=== PATIENT | female | born 1935 | race Hispanic/Latino ===

== ENCOUNTER 2019-03-05 00:11 | Emergency (ER) | payer MEDICARE ==
[2019-03-05] MEDS ORDERED: SODIUM CHLORIDE 0.9% 1000 ML IV SOLN IV ONE (00:12)
[2019-03-05] MEDS ORDERED: CEFEPIME/NS 2 GM/100 ML 2 GM/100 ML BAG IV ONE (00:15)
--- NOTE | 2019-03-05 00:20 | Emergency Department Report ---
ED General Adult HPI - General Stated complaint: UTI Time Seen by Provider: 03/05/19 00:12 Source: patient, EMS Mode of arrival: Stretcher Limitations: No Limitations - History of Present Illness Initial comments: Patient is an 83-year-old female that presents with complaint of weakness, fever. Patient brought in by EMS. Patient states she had a fever of 104 for 3 days. Patient states nothing is bring her fever down. Patient denies cough. Patient denies blurred vision. Patient denies headache. Patient denies chest pain or shortness of breath. Patient states her only symptom is dysuria. She states her urine is cloudy and it sullivan when she urinates. Patient states the dysuria is better with rest and worse with urination. Location: genitals Radiation: non-radiation Quality: burning Consistency: intermittent Improves with: rest Worsens with: other Associated Symptoms: fever/chills, weakness. denies: confusion, chest pain, cough, diaphoresis, headaches, loss of appetite, nausea/vomiting, rash, seizure, shortness of breath, syncope - Related Data Home Medications Medication Instructions Recorded Confirmed Last Taken Baclofen [Lioresal] 10 mg PO TID PRN 05/26/13 10/17/14 10/16/14 Diazepam [Valium] 10 mg PO BID 05/26/13 10/17/14 10/16/14 PARoxetine [Paxil] 10 mg PO DAILY 05/26/13 10/17/14 10/16/14 19:00 Quetiapine Fumarate [SEROquel XR] 200 mg PO DAILY 05/26/13 10/17/14 10/16/14 rOPINIRole [Requip] 1 mg PO QHS 05/26/13 10/17/14 10/16/14 19:00 QUEtiapine [SEROquel] 200 mg PO QHS 05/28/13 10/17/14 10/16/14 19:00 Hydromorphone HCl [Dilaudid] 4 mg PO 10/17/14 10/17/14 10/16/14 Oxycodone HCl/Acetaminophen 1 each PO Q6HR PRN 10/17/14 10/17/14 10/16/14 [Percocet 10-325 mg] Previous Rx's Medication Instructions Recorded Last Taken Type Acetaminophen [Tylenol] 325 mg PO DAILY #10 tablet 05/26/13 10/16/14 Rx Famotidine [Pepcid] 10 mg PO BID #60 tablet 06/02/13 10/16/14 Rx levoFLOXacin [Levaquin] 750 mg PO QDAY #7 tablet 06/02/13 10/16/14 Rx metroNIDAZOLE [Flagyl] 500 mg PO Q8HR #30 tablet 06/02/13 10/16/14 Rx Oxycodone HCl/Acetaminophen 1 each PO Q6HR PRN #30 tablet 10/18/14 Unknown Rx [Percocet 10-325 mg] Allergies Allergy/AdvReac Type Severity Reaction Status Date / Time morphine AdvReac Nausea Verified 05/26/13 19:22 ED Review of Systems ROS: Stated complaint: UTI Other details as noted in HPI Constitutional: chills, fever, weakness Eyes: denies: eye pain, eye discharge, vision change ENT: denies: ear pain, throat pain Respiratory: denies: cough, shortness of breath, wheezing Cardiovascular: denies: chest pain, palpitations Endocrine: no symptoms reported Gastrointestinal: denies: abdominal pain, nausea, diarrhea Genitourinary: dysuria. denies: urgency, discharge Musculoskeletal: denies: back pain, joint swelling, arthralgia Skin: denies: rash, lesions Neurological: weakness. denies: headache, paresthesias Psychiatric: denies: anxiety, depression Hematological/Lymphatic: denies: easy bleeding, easy bruising ED Past Medical Hx - Past Medical History Previous Medical History?: Yes Hx Hypertension: No Hx Liver Disease: No Hx Renal Disease: No Hx Psychiatric Treatment: Yes (depression) Hx Asthma: No Additional medical history: chronic back pain - Surgical History Past Surgical History?: Yes Hx Cholecystectomy: Yes Additional Surgical History: back surgery. hemorroids. tonsilectomy. bladder - Family History Family history: no significant - Social History Smoking Status: Never Smoker Substance Use Type: None - Medications Home Medications: Home Medications Medication Instructions Recorded Confirmed Last Taken Type Acetaminophen [Tylenol] 325 mg PO DAILY #10 tablet 05/26/13 10/17/14 10/16/14 Rx Baclofen [Lioresal] 10 mg PO TID PRN 05/26/13 10/17/14 10/16/14 History Diazepam [Valium] 10 mg PO BID 05/26/13 10/17/14 10/16/14 History PARoxetine [Paxil] 10 mg PO DAILY 05/26/13 10/17/14 10/16/14 19:00 History Quetiapine Fumarate [SEROquel XR] 200 mg PO DAILY 05/26/13 10/17/14 10/16/14 History rOPINIRole [Requip] 1 mg PO QHS 05/26/13 10/17/14 10/16/14 19:00 History QUEtiapine [SEROquel] 200 mg PO QHS 05/28/13 10/17/14 10/16/14 19:00 History Famotidine [Pepcid] 10 mg PO BID #60 tablet 06/02/13 10/17/14 10/16/14 Rx levoFLOXacin [Levaquin] 750 mg PO QDAY #7 tablet 06/02/13 10/17/14 10/16/14 Rx metroNIDAZOLE [Flagyl] 500 mg PO Q8HR #30 tablet 06/02/13 10/17/14 10/16/14 Rx Hydromorphone HCl [Dilaudid] 4 mg PO 10/17/14 10/17/14 10/16/14 History Oxycodone HCl/Acetaminophen 1 each PO Q6HR PRN 10/17/14 10/17/14 10/16/14 History [Percocet 10-325 mg] Oxycodone HCl/Acetaminophen 1 each PO Q6HR PRN #30 tablet 10/18/14 Unknown Rx [Percocet 10-325 mg] ED Physical Exam - General Limitations: No Limitations General appearance: alert, in no apparent distress - Head Head exam: Present: atraumatic, normocephalic - Eye Eye exam: Present: normal appearance - ENT ENT exam: Present: mucous membranes dry - Neck Neck exam: Present: normal inspection, full ROM. Absent: tenderness, meningismus, lymphadenopathy, thyromegaly - Respiratory Respiratory exam: Present: normal lung sounds bilaterally. Absent: respiratory distress, wheezes, rales - Cardiovascular Cardiovascular Exam: Present: regular rate, normal rhythm. Absent: systolic murmur, diastolic murmur, rubs, gallop - GI/Abdominal GI/Abdominal exam: Present: soft, normal bowel sounds. Absent: distended, tenderness, guarding - Rectal Rectal exam: Present: deferred - Extremities Exam Extremities exam: Present: normal inspection - Back Exam Back exam: Present: normal inspection - Neurological Exam Neurological exam: Present: alert, oriented X3 - Psychiatric Psychiatric exam: Present: normal affect, normal mood - Skin Skin exam: Present: warm, dry, intact, normal color. Absent: rash ED Course Vital Signs 03/05/19 03/05/19 03/05/19 00:16 00:22 00:30 Temperature 102.4 F H Pulse Rate 112 H 107 H Respiratory 22 21 Rate Blood Pressure 134/61 127/51 O2 Sat by Pulse 92 90 Oximetry 03/05/19 03/05/19 03/05/19 00:45 01:00 01:15 Temperature Pulse Rate 100 H 91 H 89 Respiratory 20 15 19 Rate Blood Pressure 132/51 123/55 132/48 O2 Sat by Pulse 94 96 97 Oximetry 03/05/19 03/05/19 03/05/19 01:20 01:30 01:45 Temperature Pulse Rate 87 89 Respiratory 18 18 19 Rate Blood Pressure 132/49 129/52 O2 Sat by Pulse 94 96 97 Oximetry 03/05/19 03/05/19 03/05/19 02:00 02:21 02:30 Temperature Pulse Rate 90 85 82 Respiratory 14 31 H 13 Rate Blood Pressure 118/57 118/57 108/45 O2 Sat by Pulse 95 94 96 Oximetry 03/05/19 03/05/19 03/05/19 03:00 03:15 03:30 Temperature Pulse Rate 79 80 75 Respiratory 16 14 17 Rate Blood Pressure 90/42 103/45 104/42 O2 Sat by Pulse 91 97 93 Oximetry 03/05/19 03:45 Temperature Pulse Rate 78 Respiratory 24 Rate Blood Pressure 104/43 O2 Sat by Pulse 97 Oximetry - Reevaluation(s) Reevaluation #1: Initial evaluation done. Code sepsis initiated. Patient will be given fluids and antibiotics immediately. 03/05/19 00:15 Reevaluation #2: Patient's heart rate has improved with treatment. Patient states she is feeling a little better. Patient's CT is pending. 03/05/19 01:20 Reevaluation #3: Patient has been accepted to [facility]. I discussed all results with patient. Discussed plan of care with patient. Patient agrees with plan of care and mahesh gill. 03/05/19 03:34 - Consultations Consultation #1: I discussed case with hospitalist. Hospitalist is to have the patient transfer since we do not have urology. 03/05/19 03:10 Consultation #2: I discussed case with [facility]. 03/05/19 03:19 Patient has been accepted to [facility] by Dr. Barajas, urology. 03/05/19 03:30 ED Medical Decision Making - Lab Data Result diagrams: 03/05/19 00:40 03/05/19 00:40 - EKG Data -: EKG Interpreted by Me EKG shows normal: sinus rhythm, axis, intervals, QRS complexes, ST-T waves Rate: tachycardia - Radiology Data Radiology results: report reviewed, image reviewed interpreted by me: No acute findings on chest x-ray. CT ABDOMEN AND PELVIS WITH AND WITHOUT IV CONTRAST INDICATION: Fever. Dysuria. TECHNIQUE: Multiple axial CT images of the abdomen and pelvis were acquired with and without intravenous contrast. Sagittal and coronal reformats were obtained. All CT performed at this facility utilize dose reduction techniques including automated exposure control, iterative reconstruction and weight based dosing when appropriate to reduce patient ra diation dose to as low as reasonably achievable. COMPARISON: No prior studies are available for comparison. FINDINGS: Limited imaging of the bilateral lung bases demonstrates no acute abnormality. Abdomen: The gallbladder has been removed. The liver, spleen, pancreas, bilateral adrenal glands and and right kidney show no evidence of acute abnormality. There is mild left- sided hydronephrosis and hydroureter with mild perinephric stranding. There is a single 8 mm stone within the left renal pelvis. It is unclear if this is causing significant obstruction. There is no evidence of bowel obstruction or free air. Pelvis: There is a 5 mm simple left adnexal cyst. There is a 7 mm obstructing stone within the distal left ureter. The urinary bladder is decompressed around a Lind catheter. No free pelvic fluid is visualized. Bones and Soft Tissues: Evaluation of bony structures demonstrates diffuse degenerative, postsurgical and osteopenic changes of the lumbar spine. There are several mild compression deformities involving the L1, L2 and L3 vertebral bodies. Evaluation of soft tissue structures shows no acute soft tissue abnormality. IMPRESSION: 1. Obstructing 7 mm stone in the distal left ureter causing mild left-sided hydronephrosis and perinephric stranding. 2. There is a single 8 mm stone in the left renal pelvis. It is difficult to determine if this is causing any degree of obstruction or may be an incidental finding. 3. Simple 5 cm left adnexal cyst. - Medical Decision Making Patient is an 83-year-old female presents emergency room complaints of weakness and fever. Patient had a fever of 104 for 3 days. Patient brought in by EMS. Patient had labs done. Patient's labs remarkable for elevated WBC, UTI. Due to the patient's complaints patient had a CT scan done of the abdomen and pelvis and it shows a 7 mm obstructing stone with hydronephrosis and findings consistent with pyelonephritis. Patient will require a urology consult and we do not have urology on-call available at this facility. Patient will be transferred to [facility]. Patient has been accepted by the urologist and [facility]. Patient responded well to therapy. His heart rate improved with fluids. Patient's lactic acid improved. Patient initially found to have a lactic a cidosis and improve with fluid therapy. - Differential Diagnosis fever. sirs. sepsis. uti. pyelo Critical Care Time: Yes Critical care time in (mins) excluding proc time.: 80 Critical care attestation.: If time is entered above; I have spent that time in minutes in the direct care of this critically ill patient, excluding procedure time. Critical Care Time: 80 minutes ED Disposition Clinical Impression: Dysuria, Hypoxia, SIRS (systemic inflammatory response syndrome), Hyponatremia, Metabolic acidosis, Pyelonephritis, Kidney stone, Lactic acid acidosis Fever Qualifiers: Fever type: unspecified Qualified Code(s): R50.9 - Fever, unspecified UTI (urinary tract infection) Qualifiers: Urinary tract infection type: acute cystitis Hematuria presence: with hematuria Qualified Code(s): N30.01 - Acute cystitis with hematuria Disposition: DC/TX-70 ANOTHER TYPE HLTHCARE Is pt being admited?: No Does the pt Need Aspirin: No Condition: Critical Time of Disposition: 03:34
[2019-03-05 01:20] LABS: Basophils % (Auto) 0.2 % (0.0-1.8); Eosinophils % (Auto) 0.1 % (0.0-4.3); Hematocrit 38.8 % (30.3-42.9); Hemoglobin 12.8 gm/dl (10.1-14.3); Lymphocytes # (Auto) 1.1 K/mm3 (1.2-5.4); Lymphocytes % (Auto) 8.6 % (13.4-35.0); Mean Corpuscular HGB Conc 33 % (30-34); Mean Corpuscular Volume 82 fl (79-97); Monocytes # (Auto) 0.9 K/mm3 (0.0-0.8); Monocytes % (Auto) 7.4 % (0.0-7.3); Platelet Count 225 K/mm3 (140-440); Red Blood Count 4.76 M/mm3 (3.65-5.03); Red Cell Distribution Width 16.3 % (13.2-15.2)
[2019-03-05 01:34] LABS: Bacteria,Urine 3+ /HPF (Negative); Bilirubin,Urine NEG (Negative); Blood,Urine SM (Negative); Color,Urine Amber (Yellow); Mucus,Urine FEW /HPF; Urobilinogen,Urine < 2.0 mg/dL (<2.0)
[2019-03-05 01:35] LABS: WBC,Urine > 182.0 /HPF (0.0-6.0)
--- NOTE | 2019-03-05 01:35 | XRay Report ---
CHEST 1 VIEW, 03/05/2019 1:05 AM CLINICAL INFORMATION/INDICATION: Sepsis COMPARISON: Chest radiograph, 06/01/2013 FINDINGS: SUPPORT DEVICES: None. HEART: The cardiac silhouette is normal in size. LUNGS/PLEURA: There is no focal airspace disease or significant pleural effusion. ADDITIONAL FINDINGS: No additional acute findings. IMPRESSION: 1. No evidence of acute cardiopulmonary process. Signer Name: Rosita Freitas MD Signed: 03/05/2019 1:30 AM Workstation Name: [email or web address]
[2019-03-05 01:53] LABS: Calcium 9.5 mg/dL (8.4-10.2)
[2019-03-05 01:54] LABS: Albumin 3.2 g/dL (3.9-5)
--- NOTE | 2019-03-05 03:05 | Cat Scan Report ---
CT ABDOMEN AND PELVIS WITH AND WITHOUT IV CONTRAST INDICATION: Fever. Dysuria. TECHNIQUE: Multiple axial CT images of the abdomen and pelvis were acquired with and without intraven ous contrast. Sagittal and coronal reformats were obtained. All CT performed at this facility utiliz e dose reduction techniques including automated exposure control, iterative reconstruction and weight based dosing when appropriate to reduce patient radiation dose to as low as reasonably achievable. COMPARISON: No prior studies are available for comparison. FINDINGS: Limited imaging of the bilateral lung bases demonstrates no acute abnormality. Abdomen: The gallbladder has been removed. The liver, spleen, pancreas, bilateral adrenal glands and and right kidney show no evidence of acute abnormality. There is mild left-sided hydronephrosis and h ydroureter with mild perinephric stranding. There is a single 8 mm stone within the left renal pelvis . It is unclear if this is causing significant obstruction. There is no evidence of bowel obstruction or free air. Pelvis: There is a 5 mm simple left adnexal cyst. There is a 7 mm obstructing stone within the distal left ureter. The urinary bladder is decompressed around a Lind catheter. No free pelvic fluid is vi sualized. Bones and Soft Tissues: Evaluation of bony structures demonstrates diffuse degenerative, postsurgical and osteopenic changes of the lumbar spine. There are several mild compression deformities involving the L1, L2 and L3 vertebral bodies. Evaluation of soft tissue structures shows no acute soft tissue abnormality. IMPRESSION: 1. Obstructing 7 mm stone in the distal left ureter causing mild left-sided hydronephrosis and perine phric stranding. 2. There is a single 8 mm stone in the left renal pelvis. It is difficult to determine if this is cau sing any degree of obstruction or may be an incidental finding. 3. Simple 5 cm left adnexal cyst. Signer Name: Rosita Freitas MD Signed: 03/05/2019 3:00 AM Workstation Name: [id number]
[2019-03-05 04:04] VITALS: BP 104/43
[2019-03-05] MEDS ORDERED: oxyCODONE /ACETAMINOPHEN 5-325MG TAB PO ONE (05:16)
== END 2019-03-05 07:59 | disposition other institution (70) ==
LOC: ED 00:11
DX: N39.0 Urinary tract infection, site not specified (principal); R65.10 Systemic inflammatory response syndrome (SIRS) of non-infectious origin without acute organ dysfunction; N20.0 Calculus of kidney; E87.2 Acidosis; N12 Tubulo-interstitial nephritis, not specified as acute or chronic; E87.1 Hypo-osmolality and hyponatremia; R09.02 Hypoxemia; F32.9 Major depressive disorder, single episode, unspecified; Z90.89 Acquired absence of other organs; Z79.899 Other long term (current) drug therapy; Z88.6 Allergy status to analgesic agent
CPT/HCPCS: 36415; 71045; 74178; 80053; 81001; 82140; 85025; 87040; 87076; 87186; 93005; 93010; 96365; 96375; 99291; 99292; J0692; J7030; Q9967; 51702

== ENCOUNTER 2020-11-11 12:52 | Inpatient (IN) | payer MEDICARE ==
[2020-11-11] MEDS ORDERED: SODIUM CHLORIDE 0.9% 1000 ML 1,000 ML IV ONE (13:26)
--- NOTE | 2020-11-11 13:34 | Emergency Department Report ---
<ARNEL RAVI - Last Filed: 11/11/20 17:47> ED Abdominal Pain HPI - General Chief Complaint: Altered Mental Status Stated Complaint: VOMITING PUI?: Yes Time Seen by Provider: 11/11/20 13:10 - Related Data Home Medications Medication Instructions Recorded Confirmed Last Taken Baclofen [Lioresal] 10 mg PO TID PRN 05/26/13 10/17/14 10/16/14 Diazepam [Valium] 10 mg PO BID 05/26/13 10/17/14 10/16/14 PARoxetine [Paxil] 10 mg PO DAILY 05/26/13 10/17/14 10/16/14 19:00 Quetiapine Fumarate [SEROquel XR] 200 mg PO DAILY 05/26/13 10/17/14 10/16/14 rOPINIRole [Requip] 1 mg PO QHS 05/26/13 10/17/14 10/16/14 19:00 QUEtiapine [SEROquel] 200 mg PO QHS 05/28/13 10/17/14 10/16/14 19:00 Hydromorphone HCl [Dilaudid] 4 mg PO 10/17/14 10/17/14 10/16/14 Oxycodone HCl/Acetaminophen 1 each PO Q6HR PRN 10/17/14 10/17/14 10/16/14 [Percocet 10-325 mg] Previous Rx's Medication Instructions Recorded Last Taken Type Acetaminophen [Tylenol] 325 mg PO DAILY #10 tablet 05/26/13 10/16/14 Rx Famotidine [Pepcid] 10 mg PO BID #60 tablet 06/02/13 10/16/14 Rx levoFLOXacin [Levaquin] 750 mg PO QDAY #7 tablet 06/02/13 10/16/14 Rx metroNIDAZOLE [Flagyl] 500 mg PO Q8HR #30 tablet 06/02/13 10/16/14 Rx Oxycodone HCl/Acetaminophen 1 each PO Q6HR PRN #30 tablet 10/18/14 Unknown Rx [Percocet 10-325 mg] Allergies Allergy/AdvReac Type Severity Reaction Status Date / Time morphine AdvReac Nausea Verified 05/26/13 19:22 ED Past Medical Hx - Medications Home Medications: Home Medications Medication Instructions Recorded Confirmed Last Taken Type Acetaminophen [Tylenol] 325 mg PO DAILY #10 tablet 05/26/13 10/17/14 10/16/14 Rx Baclofen [Lioresal] 10 mg PO TID PRN 05/26/13 10/17/14 10/16/14 History Diazepam [Valium] 10 mg PO BID 05/26/13 10/17/14 10/16/14 History PARoxetine [Paxil] 10 mg PO DAILY 05/26/13 10/17/14 10/16/14 19:00 History Quetiapine Fumarate [SEROquel XR] 200 mg PO DAILY 05/26/13 10/17/14 10/16/14 History rOPINIRole [Requip] 1 mg PO QHS 05/26/13 10/17/14 10/16/14 19:00 History QUEtiapine [SEROquel] 200 mg PO QHS 05/28/13 10/17/14 10/16/14 19:00 History Famotidine [Pepcid] 10 mg PO BID #60 tablet 06/02/13 10/17/14 10/16/14 Rx levoFLOXacin [Levaquin] 750 mg PO QDAY #7 tablet 06/02/13 10/17/14 10/16/14 Rx metroNIDAZOLE [Flagyl] 500 mg PO Q8HR #30 tablet 06/02/13 10/17/14 10/16/14 Rx Hydromorphone HCl [Dilaudid] 4 mg PO 10/17/14 10/17/14 10/16/14 History Oxycodone HCl/Acetaminophen 1 each PO Q6HR PRN 10/17/14 10/17/14 10/16/14 History [Percocet 10-325 mg] Oxycodone HCl/Acetaminophen 1 each PO Q6HR PRN #30 tablet 10/18/14 Unknown Rx [Percocet 10-325 mg] ED Course - Reevaluation(s) Reevaluation #1: 11/11/20 16:46 CT scan of the abdomen pelvis is reviewed and appreciated. It is compared to the CT scan from 2019. No acute findings noted. X-ray of the chest is unremarkable. Given nonspecific GI symptoms, Covid symptomatology, report of patient not being vaccinated, the patient was placed on Covid isolation, and Covid laboratory studies ordered. Decadron ordered empirically, have requested arterial blood gas on room air, and then continuation of 2/3 L of supplemental oxygen. Hospital physician, Dr. Jessica Gonzalez to admit to [facility] Leukocytosis is reviewed and appreciated. Given suspicion for Covid, normal lactic acid, normal blood pressure, it is my opinion that this patient would not benefit from 30 cc/kg bolus of IV fluids, given possibility/propensity of Covid patients to develop arts-like symptomatology. She will be given Decadron. I suspect that this patient likely has chronic respiratory failure, likely secondary to obstructive sleep apnea, and or obesity hypoventilation syndrome. Gaseous distention of stomach likely secondary to the aforementioned, with a possible component of dysphagia. Swallow screen ordered. ABG ordered. Urinalysis unremarkable. This is most likely an acute exacerbation of this patient's chronic medical pathology. 11/11/20 17:48 Arterial blood gas demonstrates hypoxemic respiratory failure, and uncompensated alkalosis. Suspect that this is secondary to history of GI losses. Contacted patient's daughter, gave her an update on the plan of care, and current diagnostics. She has articulated understanding. Patient resting comfortably in stretcher at this time, and in no acute distress. ED Medical Decision Making - Lab Data Result diagrams: 11/11/20 13:39 11/11/20 16:59 - Radiology Data Radiology results: report reviewed, image reviewed CT OF THE ABDOMEN AND PELVIS WITHOUT CONTRAST INDICATION / CLINICAL INFORMA TION: Nausea, vomiting and diarrhea. TECHNIQUE: All CT scans at this location are performed using CT dose reduction for ALARA by means of automated exposure control. COMPARISON: 03/05/19. FINDINGS: ABDOMEN: There is moderate gaseous distention of the stomach without a cause seen. There is no evidence of bowel wall thickening, mass or free air. The gallbladder is surgically absent. There are multiple confluent small calculi in the dependent portion of the right renal pelvis which appear nonobstructive. No left renal calculus is seen. There is no evidence of hydronephrosis or renal mass. The liver, spleen, bile ducts, pancreas, left kidney and adrenal glands demonstrate no significant abnormality. No adenopathy is present. There is mild bibasilar dependent atelectasis. PELVIS: There is a 7 mm calcification which overlies the distal left ureter on axial image #160 of series #2. The left ureter is not dilated. The distal right ureter and urinary bladder are normal. There is a 5.3 cm simple cyst in the left adnexa which is unchanged in size. The uterus and right ovary are not identif ied. There is no evidence of appendicitis or diverticulitis. I do not identify a hernia. There is internal fixation of the right hip. Multiple compression fractures in the spine are old. IMPRESSION: 1. Moderate gaseous distention of the stomach without a cause seen. Differential diagnosis includes gastroparesis and aerophagia. 2. Multiple confluent nonobstructive calculi in the right renal pelvis. 7 mm distal left ureteral calculus appears nonobstructive at this time. 3. 5.3 cm simple appearing cystic mass in the left adnexa is stable. Signer Name: Joshua Sams MD Signed: 11/11/2020 3:24 PM Workstation Name: [id number] CT ABDOMEN AND PELVIS WITH AND WITHOUT IV CONTRAST INDICATION: Fever. Dysuria. TECHNIQUE: Multiple axial CT images of the abdomen and pelvis were acquired with and without intravenous contrast. Sagittal and coronal reformats were obtained. All CT performed at this facility utilize dose reduction techniques including automated exposure control, iterative reconstruction and weight based dosing when appropriate to reduce patient radiation dose to as low as reasonably achievable. COMPARISON: No prior studies are available for comparison. FINDINGS: Limited imaging of the bilateral lung bases demonstrates no acute abnormality. Abdomen: The gallbladder has been removed. The liver, spleen, pancreas, bilateral adrenal glands and and right kidney show no evidence of acute abnormality. There is mild left-sided hydronephrosis and hydroureter with mild perinephric stranding. There is a single 8 mm stone within the left renal pelvis. It is unclear if this is causing significant obstruction. There is no evidence of bowel obstruction or free air. Pelvis: There is a 5 mm simple left adnexal cyst. There is a 7 mm obstructing stone within the distal left ureter. T he urinary bladder is decompressed around a Lind catheter. No free pelvic fluid is visualized. Bones and Soft Tissues: Evaluation of bony structures demonstrates diffuse degenerative, postsurgical and osteopenic changes of the lumbar spine. There are several mild compression deformities involving the L1, L2 and L3 vertebral bodies. Evaluation of soft tissue structures shows no acute soft tissue abnormality. IMPRESSION: 1. Obstructing 7 mm stone in the distal left ureter causing mild left-sided hydronephrosis and perinephric stranding. 2. There is a single 8 mm stone in the left renal pelvis. It is difficult to determine if this is causing any degree of obstruction or may be an incidental finding. 3. Simple 5 cm left adnexal cyst. Signer Name: Rosita Freitas MD Signed: 03/05/2019 2:00 AM Workstation Name: [email or web address] Disposition Clinical Impression: Vomiting, Dehydration, SIRS (systemic inflammatory response syndrome), Suspected 2019 novel coronavirus infection, Acute respiratory failure with hypoxia, Debility, Failure to thrive Disposition: [id number] OP ADMIT IP TO THIS HOSP Is pt being admited?: Yes Does the pt Need Aspirin: No Condition: Fair <LIANNE JOSEPH - Last Filed: 11/12/20 14:53> ED Abdominal Pain HPI - General Source: EMS Mode of arrival: Stretcher Limitations: Altered Mental Status - History of Present Illness Initial Comments: 85-year-old female with a past medical history of chronic lower back pain, chronic UTI, and depression with previous cholecystectomy, bladder surgery, kidney surgery presents to the hospital complaints of nausea and vomiting with decreased p.o. intake x1 week. Patient also complains of mild diarrhea. She d enies abdominal pain, fever, dysuria. She is chronically nonambulatory. She is currently oriented to self and knows that she is currently [place] but states the year is 2080. Patient noted to have room air saturation of 89 to 90%. Complains of cough without shortness of breath. Denies home oxygen use. Daughter's phone number [phone] I called daughter at 1:30 PM and spoke to Kirstin Hill. She states that patient has had nausea vomiting for the past 3 days. Symptoms started Wednesday 5 AM. EMS came out to assess and gave IV fluids but did not transport patient to the hospital. Patient diarrhea current vomiting on Wednesday and was reassessed by a mobile [facility]. She received a shot in fluids and again was not taken to the hospital. Patient has not had anything to eat for the last 3 days. Daughter became alarmed because she saw black tarry substance coming from patient's mouth when she vomited. She does report that her mother has hemorrhoids and has brown stool with a small amount of blood. She also confirms the patient does not have any history of lung disease and is not currently on home oxygen ED Review of Systems ROS: Stated complaint: VOMITING Other details as noted in HPI Comment: All other systems reviewed and negative ED Past Medical Hx - Past Medical History Hx Hypertension: No Hx Liver Disease: No Hx Renal Disease: No Hx Psychiatric Treatment: Yes (depression) Hx Asthma: No Additional medical history: chronic back pain - Surgical History Hx Cholecystectomy: Yes Additional Surgical History: back surgery. hemorroids. tonsilectomy. bladder - Social History Smoking Status: Never Smoker Substance Use Type: None ED Physical Exam - General Limitations: Altered Mental Status - Other Other exam information: General: No acute distress Head: Atraumatic Eyes: normal appearance ENT: Moist mucous membranes Neck: Normal appearance, no midline tenderness Chest: Clear to auscultation bilaterally CV: Mild tachycardia regular rhythm Abdomen: Soft, normal bowel sounds, nontender, nondistended, no rebound or guarding, previous surgical scars noted Rectal: No active bleeding, guaiac negative, brown stool Back: Mild lower back tenderness on exam Extremity: Normal inspection, full range of motion Neuro: Alert O x 2, no facial asymmetry, speech low volume but clear,/5 upper extremity strength, unable to to lift either leg off the bed against gravity, equal foot dorsiflexion Psych: Appropriate behavior Skin: No rash ED Course Vital Signs 11/11/20 11/11/20 11/11/20 12:58 13:13 13:16 Temperature 98.3 F Pulse Rate 110 H 122 H 124 H Respiratory 16 15 17 Rate Blood Pressure Blood Pressure 150/74 [Right] O2 Sat by Pulse 94 89 Oximetry 11/11/20 11/11/20 11/11/20 13:25 13:30 13:46 Temperature Pulse Rate 120 H 117 H Respiratory 19 25 H 28 H Rate Blood Pressure 147/103 137/94 Blood Pressure [Right] O2 Sat by Pulse 91 92 90 Oximetry 11/11/20 11/11/20 11/11/20 14:00 14:16 14:30 Temperature Pulse Rate 109 H 110 H 115 H Respiratory 26 H 22 25 H Rate Blood Pressure 180/108 166/105 166/105 Blood Pressure [Right] O2 Sat by Pulse 94 94 95 Oximetry 11/11/20 11/11/20 11/11/20 14:46 15:00 15:10 Temperature 97.9 F Pulse Rate 120 H 111 H Respiratory 23 24 Rate Blood Pressure 166/105 156/98 Blood Pressure [Right] O2 Sat by Pulse 94 96 Oximetry 11/11/20 11/11/20 11/11/20 15:16 15:30 15:46 Temperature Pulse Rate 110 H 107 H 109 H Respiratory 20 24 26 H Rate Blood Pressure 166/105 154/96 158/97 Blood Pressure [Right] O2 Sat by Pulse 95 95 Oximetry 11/11/20 11/11/20 11/11/20 16:08 16:16 16:30 Temperature Pulse Rate 114 H 115 H 109 H Respiratory 21 19 20 Rate Blood Pressure 158/97 152/101 155/105 Blood Pressure [Right] O2 Sat by Pulse 95 94 95 Oximetry 11/11/20 11/11/20 11/11/20 16:46 17:00 17:16 Temperature Pulse Rate 110 H 117 H 116 H Respiratory 25 H 16 11 L Rate Blood Pressure 172/109 184/112 147/88 Blood Pressure [Right] O2 Sat by Pulse 96 93 89 Oximetry 11/11/20 11/11/20 11/11/20 17:30 17:46 18:00 Temperature Pulse Rate 110 H 110 H 114 H Respiratory 22 17 17 Rate Blood Pressure 147/88 159/104 170/104 Blood Pressure [Right] O2 Sat by Pulse 95 94 94 Oximetry 11/11/20 11/11/20 11/11/20 18:10 18:16 18:46 Temperature Pulse Rate 106 H 108 H Respiratory 26 H 26 H Rate Blood Pressure 162/99 188/112 Blood Pressure [Right] O2 Sat by Pulse 95 95 95 Oximetry 11/11/20 11/11/20 11/11/20 19:00 19:16 19:30 Temperature Pulse Rate 112 H 109 H 113 H Respiratory 22 24 18 Rate Blood Pressure 189/103 189/103 182/107 Blood Pressure [Right] O2 Sat by Pulse 95 97 95 Oximetry 11/11/20 11/11/20 11/11/20 19:42 19:46 19:48 Temperature Pulse Rate 109 H 115 H 114 H Respiratory 27 H 19 16 Rate Blood Pressure 158/97 182/107 182/107 Blood Pressure [Right] O2 Sat by Pulse 96 94 96 Oximetry 11/11/20 11/11/20 11/11/20 20:00 20:16 20:30 Temperature Pulse Rate 113 H 113 H 111 H Respiratory 23 18 23 Rate Blood Pressure 171/106 182/107 161/101 Blood Pressure [Right] O2 Sat by Pulse 95 94 86 Oximetry 11/11/20 11/11/20 11/11/20 20:46 21:00 21:16 Temperature Pulse Rate 111 H 112 H 118 H Respiratory 27 H 25 H 17 Rate Blood Pressure 161/101 182/110 182/110 Blood Pressure [Right] O2 Sat by Pulse 86 87 88 Oximetry 11/11/20 11/11/20 11/11/20 21:30 21:46 22:00 Temperature Pulse Rate 114 H 114 H 117 H Respiratory 29 H 29 H 27 H Rate Blood Pressure 170/104 170/104 175/115 Blood Pressure [Right] O2 Sat by Pulse 88 88 86 Oximetry 11/11/20 11/11/20 11/11/20 22:16 22:30 22:46 Temperature Pulse Rate 117 H 123 H 121 H Respiratory 25 H 19 18 Rate Blood Pressure 175/115 177/103 177/103 Blood Pressure [Right] O2 Sat by Pulse 89 91 89 Oximetry 11/11/20 11/11/20 11/11/20 23:00 23:16 23:30 Temperature Pulse Rate 118 H 115 H 113 H Respiratory 29 H 21 22 Rate Blood Pressure 161/102 177/103 176/107 Blood Pressure [Right] O2 Sat by Pulse 88 89 95 Oximetry 11/11/20 11/12/20 11/12/20 23:46 00:00 00:16 Temperature Pulse Rate 122 H 118 H 117 H Respiratory 19 26 H 27 H Rate Blood Pressure 176/107 182/110 182/110 Blood Pressure [Right] O2 Sat by Pulse 95 93 93 Oximetry 11/12/20 11/12/20 11/12/20 00:30 00:46 01:00 Temperature Pulse Rate 122 H 114 H 118 H Respiratory 21 22 22 Rate Blood Pressure 177/114 177/114 166/107 Blood Pressure [Right] O2 Sat by Pulse 93 93 93 Oximetry 11/12/20 11/12/20 11/12/20 01:16 01:30 01:46 Temperature Pulse Rate 126 H 119 H 120 H Respiratory 22 25 H 24 Rate Blood Pressure 166/107 157/110 157/110 Blood Pressure [Right] O2 Sat by Pulse 92 94 95 Oximetry 11/12/20 11/12/20 11/12/20 02:00 02:16 02:30 Temperature Pulse Rate 121 H 118 H 116 H Respiratory 26 H 28 H 28 H Rate Blood Pressure 168/103 168/103 164/101 Blood Pressure [Right] O2 Sat by Pulse 95 95 95 Oximetry 11/12/20 11/12/20 11/12/20 02:46 03:00 03:16 Temperature Pulse Rate 116 H 122 H 123 H Respiratory 28 H 26 H 18 Rate Blood Pressure 164/101 174/102 174/102 Blood Pressure [Right] O2 Sat by Pulse 95 94 94 Oximetry 11/12/20 11/12/20 11/12/20 03:30 03:46 04:00 Temperature Pulse Rate 123 H 117 H 122 H Respiratory 13 31 H 22 Rate Blood Pressure 167/109 167/109 177/109 Blood Pressure [Right] O2 Sat by Pulse 94 95 94 Oximetry 11/12/20 11/12/20 11/12/20 04:16 04:30 04:46 Temperature Pulse Rate 122 H 120 H 118 H Respiratory 13 21 33 H Rate Blood Pressure 177/109 161/96 161/96 Blood Pressure [Right] O2 Sat by Pulse 93 95 94 Oximetry 11/12/20 11/12/20 11/12/20 05:00 05:16 05:30 Temperature Pulse Rate 128 H 117 H 117 H Respiratory 31 H 20 30 H Rate Blood Pressure 178/106 178/106 172/103 Blood Pressure [Right] O2 Sat by Pulse 94 94 93 Oximetry 11/12/20 11/12/20 11/12/20 05:46 06:00 11:53 Temperature Pulse Rate 115 H 117 H 120 H Respiratory 30 H 28 H 16 Rate Blood Pressure 172/103 172/107 Blood Pressure 145/81 [Right] O2 Sat by Pulse 94 94 96 Oximetry - EJ/Peripheral Line Neck R Time Out Performed: Yes Indications: nurses unable to establis Skin Cleansed in Sterile Fashion: Yes Size: 20 Dressing Placed: Tegaderm, tape Patient Tolerated Procedure: well, no complications ED Medical Decision Making - Lab Data Result diagrams: 11/12/20 05:07 11/12/20 05:07 Lab Results 11/11/20 11/11/20 11/11/20 Range/Units 13:39 13:39 13:39 WBC 19.5 H (4.5-11.0) K/mm3 RBC 5.93 H (3.65-5.03) M/mm3 Hgb 17.0 H (10.1-14.3) gm/dl Hct 50.6 H (30.3-42.9) % MCV 85 (79-97) fl MCH 29 (28-32) pg MCHC 34 (30-34) % RDW 14.2 (13.2-15.2) % Plt Count 449 H (140-440) K/mm3 Lymph % (Auto) 12.0 L (13.4-35.0) % [place] % (Auto) 7.7 H (0.0-7.3) % Eos % (Auto) 0.1 (0.0-4.3) % Baso % (Auto) 0.2 (0.0-1.8) % Lymph # (Auto) 2.3 (1.2-5.4) K/mm3 [place] # (Auto) 1.5 H (0.0-0.8) K/mm3 Eos # (Auto) 0.0 (0.0-0.4) K/mm3 Baso # (Auto) 0.0 (0.0-0.1) K/mm3 Seg Neutrophils % 80.0 H (40.0-70.0) % Seg Neutrophils # 15.6 H (1.8-7.7) K/mm3 PT (12.2-14.9) Sec. INR (0.87-1.13) APTT (24.2-36.6) Sec. Sodium 140 (137-145) mmol/L Potassium 3.5 L (3.6-5.0) mmol/L Chloride 97.3 L (98-107) mmol/L Carbon Dioxide 26 (22-30) mmol/L Anion Gap 20 mmol/L BUN 30 H (7-17) mg/dL Creatinine 0.5 L (0.6-1.2) mg/dL Estimated GFR > 60 ml/min BUN/Creatinine Ratio 60 % Glucose 128 H (65-100) mg/dL Lactic Acid 1.50 (0.7-2.0) mmol/L Calcium 10.2 (8.4-10.2) mg/dL Total Bilirubin 0.90 (0.1-1.2) mg/dL AST 22 (5-40) units/L ALT 15 (7-56) units/L Alkaline Phosphatase 89 (35-129) units/L Troponin T < 0.010 (0.00-0.029) ng/mL Total Protein 8.0 (6.3-8.2) g/dL Albumin 3.8 L (3.9-5) g/dL Albumin/Globulin Ratio 0.9 % Lipase 55 (13-60) units/L Urine Color (Yellow) Urine Turbidity (Clear) Urine pH (5.0-7.0) Ur Specific [place] (1.003-1.030) Urine Protein (Negative) mg/dL Urine Glucose (UA) (Negative) mg/dL Urine Ketones (Negative) mg/dL Urine Blood (Negative) Urine Nitrite (Negative) Urine Bilirubin (Negative) Urine Urobilinogen (<2.0) mg/dL Ur Leukocyte Esterase (Negative) Urine WBC (Auto) (0.0-6.0) /HPF Urine RBC (Auto) (0.0-6.0) /HPF 11/11/20 11/11/20 11/11/20 Range/Units 14:54 15:10 Unknown WBC (4.5-11.0) K/mm3 RBC (3.65-5.03) M/mm3 Hgb (10.1-14.3) gm/dl Hct (30.3-42.9) % MCV (79-97) fl MCH (28-32) pg MCHC (30-34) % RDW (13.2-15.2) % Plt Count (140-440) K/mm3 Lymph % (Auto) (13.4-35.0) % [place] % (Auto) (0.0-7.3) % Eos % (Auto) (0.0-4.3) % Baso % (Auto) (0.0-1.8) % Lymph # (Auto) (1.2-5.4) K/mm3 [place] # (Auto) (0.0-0.8) K/mm3 Eos # (Auto) (0.0-0.4) K/mm3 Baso # (Auto) (0.0-0.1) K/mm3 Seg Neutrophils % (40.0-70.0) % Seg Neutrophils # (1.8-7.7) K/mm3 PT 13.3 (12.2-14.9) Sec. INR 0.96 (0.87-1.13) APTT 25.8 (24.2-36.6) Sec. Sodium (137-145) mmol/L Potassium (3.6-5.0) mmol/L Chloride (98-107) mmol/L Carbon Dioxide (22-30) mmol/L Anion Gap mmol/L BUN (7-17) mg/dL Creatinine (0.6-1.2) mg/dL Estimated GFR ml/min BUN/Creatinine Ratio % Glucose (65-100) mg/dL Lactic Acid 1.40 (0.7-2.0) mmol/L Calcium (8.4-10.2) mg/dL Total Bilirubin (0.1-1.2) mg/dL AST (5-40) units/L ALT (7-56) units/L Alkaline Phosphatase (35-129) units/L Troponin T (0.00-0.029) ng/mL Total Protein (6.3-8.2) g/dL Albumin (3.9-5) g/dL Albumin/Globulin Ratio % Lipase (13-60) units/L Urine Color Yellow (Yellow) Urine Turbidity Turbid (Clear) Urine pH 5.0 (5.0-7.0) Ur Specific [place] 1.029 (1.003-1.030) Urine Protein 100 mg/dl (Negative) mg/dL Urine Glucose (UA) Neg (Negative) mg/dL Urine Ketones 20 (Negative) mg/dL Urine Blood Sm (Negative) Urine Nitrite Neg (Negative) Urine Bilirubin Neg (Negative) Urine Urobilinogen < 2.0 (<2.0) mg/dL Ur Leukocyte Esterase Sm (Negative) Urine WBC (Auto) 1.0 (0.0-6.0) /HPF Urine RBC (Auto) 1.0 (0.0-6.0) /HPF - EKG Data -: EKG Interpreted by [place] EKG shows normal: sinus rhythm Rate: normal - Radiology Data Radiology results: report reviewed (cxr: naf) - Medical Decision Making 85-year-old female with possible SIRS/sepsis including vomiting with p.o. intolerance and dehydration will be admitted to the hospital for further treatment pending CT result. Cefepime provided empirically however, source of infection identified at time of disposition (ct pending) Dr Ravi to follow. Covid order set also ordered since patient has not received a Covid vaccine Critical Care Time: No Critical care attestation.: If time is entered above; I have spent that time in minutes in the direct care of this critically ill patient, excluding procedure time.
--- NOTE | 2020-11-11 14:12 | XRay Report ---
XR chest 1V ap INDICATION / CLINICAL INFORMATION: hypoxia. COMPARISON: None available. FINDINGS: SUPPORT DEVICES: None. HEART /PULMONARY VASCULATURE: No significant abnormality. LUNGS / PLEURA: Low lung volumes. No significant pulmonary or pleural abnormality. No pneumothorax. ADDITIONAL FINDINGS: No significant additional findings. IMPRESSION: 1. No acute findings. Signer Name: George Sanchez MD Signed: 11/11/2020 2:07 PM Workstation Name: [id number]
[2020-11-11 14:27] LABS: Red Blood Count 5.93 M/mm3 (3.65-5.03)
[2020-11-11 14:28] LABS: Basophils % (Auto) 0.2 % (0.0-1.8); Eosinophils % (Auto) 0.1 % (0.0-4.3); Hematocrit 50.6 % (30.3-42.9); Lymphocytes # (Auto) 2.3 K/mm3 (1.2-5.4); Mean Corpuscular HGB Conc 34 % (30-34); Mean Corpuscular Volume 85 fl (79-97); Monocytes # (Auto) 1.5 K/mm3 (0.0-0.8); Monocytes % (Auto) 7.7 % (0.0-7.3); Platelet Count 449 K/mm3 (140-440); Red Cell Distribution Width 14.2 % (13.2-15.2)
[2020-11-11 14:54] LABS: Alanine Aminotransferase 15 units/L (7-56); Albumin 3.8 g/dL (3.9-5); Blood Urea Nitrogen 30 mg/dL (7-17); Calcium 10.2 mg/dL (8.4-10.2); Hemolysis Index 12
[2020-11-11 14:56] LABS: BUN/Creatinine Ratio 60
[2020-11-11] MEDS ORDERED: CEFEPIME/NS 2 GM/100 ML 2 GM/100 ML BAG IV ONE (15:17)
[2020-11-11 15:41] LABS: Bilirubin,Urine NEG (Negative); Blood,Urine SM (Negative); Color,Urine Yellow (Yellow); Urobilinogen,Urine < 2.0 mg/dL (<2.0)
[2020-11-11] MEDS ORDERED: ONDANSETRON 4 MG/2 ML INJ IV ONE (15:54)
[2020-11-11 16:04] LABS: INR 0.96 (0.87-1.13)
[2020-11-11 16:05] LABS: Partial Thromboplastin Time 25.8 Sec. (24.2-36.6)
--- NOTE | 2020-11-11 16:29 | Cat Scan Report ---
CT OF THE ABDOMEN AND PELVIS WITHOUT CONTRAST INDICATION / CLINICAL INFORMATION: Nausea, vomiting and diarrhea. TECHNIQUE: All CT scans at this location are performed using CT dose reduction for ALARA by means of automated exposure control. COMPARISON: 03/05/19. FINDINGS: ABDOMEN: There is moderate gaseous distention of the stomach without a cause seen. There is no eviden ce of bowel wall thickening, mass or free air. The gallbladder is surgically absent. There are multip le confluent small calculi in the dependent portion of the right renal pelvis which appear nonobstruc tive. No left renal calculus is seen. There is no evidence of hydronephrosis or renal mass. The liver, spleen, bile ducts, pancreas, left kidney and adrenal glands demonstrate no significant ab normality. No adenopathy is present. There is mild bibasilar dependent atelectasis. PELVIS: There is a 7 mm calcification which overlies the distal left ureter on axial image #160 of [place] #2. The left ureter is not dilated. The distal right ureter and urinary bladder are normal. Ther e is a 5.3 cm simple cyst in the left adnexa which is unchanged in size. The uterus and right ovary a re not identified. There is no evidence of appendicitis or diverticulitis. I do not identify a hernia . There is internal fixation of the right hip. Multiple compression fractures in the spine are old. IMPRESSION: 1. Moderate gaseous distention of the stomach without a cause seen. Differential diagnosis includes g astroparesis and aerophagia. 2. Multiple confluent nonobstructive calculi in the right renal pelvis. 7 mm distal left ureteral selene culus appears nonobstructive at this time. 3. 5.3 cm simple appearing cystic mass in the left adnexa is stable. Signer Name: Joshua Sams MD Signed: 11/11/2020 4:24 PM Workstation Name: [id number]
[2020-11-11 17:39] LABS: C-Reactive Protein 1.1 mg/dL (0.00-1.30)
--- NOTE | 2020-11-11 20:28 | History and Physical Report ---
History of Present Illness Date of examination: 11/11/20 Date of admission: 11/11/2020 Chief complaint: Nausea vomiting and decreased p.o. intake for 1 week History of present illness: 85-year-old female with obesity, chronic low back pain, muscle spasms and depression presents with nausea vomiting and decreased p.o. intake for 1 week. Patient also complains of mild diarrhea. No abdominal pain. No fever or dysuria. She is bedridden and nonambulatory. Patient is oriented to self and knows that she is in the hospital. Patient says the year is 2080. Oxygen saturation is 99 to 90% on room air also complains of cough and shortness of breath. Denies any home oxygen. As per daughter patient has pain having nausea and vomiting for past 3 days. EMS was called 1 day to assess and they gave IV fluids but did not transport the patient. Today because of the persistent vomiting and apparent small amount of blood in vomit patient was transferred to [facility] for further evaluation and treatment. As mentioned patient is slightly hypoxic at 88 to 90% on room air. Continues to vomit. 85-yearqold female with a past medical history of chronic lower back pain, chronic UTI, and depression with previous cholecystectomy, bladder surgery, kidney surgery presents to the hospital complaints of nausea and vomiting with decreased p.o. intake x1 week. Patient also complains of mild diarrhea. She denies abdominal pain, fever, dysuria. She is chronically nonambulatory. She is currently oriented to self and knows that she is currently [place] but states the year is 2080. Patient noted to have room air saturation of 89 to 90 %. Complains of cough without shortness of breath. Denies home oxygen use. Daughter's phone number [phone] - Past Medical History --Psychiatric Treatment: Yes (depression) Additional medical history: chronic back pain - Surgical History Hx Cholecystectomy: Yes Additional Surgical History: back surgery. hemorroids. tonsilectomy. bladder - Social History Smoking Status: Never Smoker Substance Use Type: None - Medications Home Medications: Home Medications Medication Instructions Recorded Confirmed Last Taken Type Acetaminophen [Tylenol] 325 mg PO DAILY #10 tablet 05/26/13 10/17/14 10/16/14 Rx Baclofen [Lioresal] 10 mg PO TID PRN 05/26/13 10/17/14 10/16/14 History Diazepam [Valium] 10 mg PO BID 05/26/13 10/17/14 10/16/14 History PARoxetine [Paxil] 10 mg PO DAILY 05/26/13 10/17/14 10/16/14 19:00 History Quetiapine Fumarate [SEROquel XR] 200 mg PO DAILY 05/26/13 10/17/14 10/16/14 History rOPINIRole [Requip] 1 mg PO QHS 05/26/13 10/17/14 10/16/14 19:00 History QUEtiapine [SEROquel] 200 mg PO QHS 05/28/13 10/17/14 10/16/14 19:00 History Famotidine [Pepcid] 10 mg PO BID #60 tablet 06/02/13 10/17/14 10/16/14 Rx levoFLOXacin [Levaquin] 750 mg PO QDAY #7 tablet 06/02/13 10/17/14 10/16/14 Rx metroNIDAZOLE [Flagyl] 500 mg PO Q8HR #30 tablet 06/02/13 10/17/14 10/16/14 Rx Hydromorphone HCl [Dilaudid] 4 mg PO 10/17/14 10/17/14 10/16/14 History Oxycodone HCl/Acetaminophen 1 each PO Q6HR PRN 10/17/14 10/17/14 10/16/14 History [Percocet 10-325 mg] Oxycodone HCl/Acetaminophen 1 each PO Q6HR PRN #30 tablet 10/18/14 Unknown Rx [Percocet 10-325 mg] Review of Systems GI nausea vomiting and diarrhea, questionable blood in the vomitus Constitutional weakness HEENT no sore throat no post nasal drip no diplopia Neck no neck stiffness no lymph gland enlargement Chest and lungs no shortness of breath cough or wheezing CVS no chest pain no diaphoresis no palpitations Genitourinary system no dysuria no flank pain Musculoskeletal system no muscle pains no joint pains [employer] no syncope no seizures Skin no rash no itching Psychiatric no depression no homicidal or suicidal tendencies Hematologic no lymphedema or bruising Endocrine no polydipsia no polyuria no cold intolerance no heat intolerance Medications and Allergies Allergies Allergy/AdvReac Type Severity Reaction Status Date / Time morphine AdvReac Nausea Verified 05/26/13 19:22 Home Medications Medication Instructions Recorded Confirmed Last Taken Type Acetaminophen [Tylenol] 325 mg PO DAILY #10 tablet 05/26/13 10/17/14 10/16/14 Rx Baclofen [Lioresal] 10 mg PO TID PRN 05/26/13 10/17/14 10/16/14 History Diazepam [Valium] 10 mg PO BID 05/26/13 10/17/14 10/16/14 History PARoxetine [Paxil] 10 mg PO DAILY 05/26/13 10/17/14 10/16/14 19:00 History Quetiapine Fumarate [SEROquel XR] 200 mg PO DAILY 05/26/13 10/17/14 10/16/14 History rOPINIRole [Requip] 1 mg PO QHS 05/26/13 10/17/14 10/16/14 19:00 History QUEtiapine [SEROquel] 200 mg PO QHS 05/28/13 10/17/14 10/16/14 19:00 History Famotidine [Pepcid] 10 mg PO BID #60 tablet 06/02/13 10/17/14 10/16/14 Rx levoFLOXacin [Levaquin] 750 mg PO QDAY #7 tablet 06/02/13 10/17/14 10/16/14 Rx metroNIDAZOLE [Flagyl] 500 mg PO Q8HR #30 tablet 06/02/13 10/17/14 10/16/14 Rx Hydromorphone HCl [Dilaudid] 4 mg PO 10/17/14 10/17/14 10/16/14 History Oxycodone HCl/Acetaminophen 1 each PO Q6HR PRN 10/17/14 10/17/14 10/16/14 History [Percocet 10-325 mg] Oxycodone HCl/Acetaminophen 1 each PO Q6HR PRN #30 tablet 10/18/14 Unknown Rx [Percocet 10-325 mg] Exam - Constitutional Vitals: Temp Pulse Resp BP Pulse Ox 97.9 F 115 H 19 182/107 94 11/11/20 15:10 11/11/20 19:46 11/11/20 19:46 11/11/20 19:46 11/11/20 19:46 General appearance: Present: mild distress, well-nourished - EENT Eyes: Present: PERRL ENT: hearing intact, clear oral mucosa - Neck Neck: Present: supple, normal ROM - Respiratory Respiratory effort: normal Respiratory: bilateral: CTA - Cardiovascular Heart rate: 78 Rhythm: regular Heart Sounds: Present: S1 & S2. Absent: rub, click - Extremities Extremities: pulses symmetrical, No edema Peripheral Pulses: within normal limits - Abdominal General gastrointestinal: Present: soft, non-tender, non-distended, normal bowel sounds Female genitourinary: Present: normal - Rectal Rectal Exam: stool brown - Integumentary Integumentary: Present: clear, warm, dry - Musculoskeletal Musculoskeletal: gait normal, strength equal bilaterally - Psychiatric Psychiatric: appropriate mood/affect, intact judgment & insight - Neurologic Neurologic: CNII-XII intact, moves all extremities - Allied Health Allied health notes reviewed: nursing, case management HEART Score - HEART Score History: Highly suspicious Age: > 65 Risk factors: 1-2 risk factors Troponin: Troponin T < 0.010 ng/mL (0.00-0.029) 11/11/20 13:39 - Critical Actions Critical Actions: 0-3 pts:0.9-1.7%risk of adverse cardiac event.Candidate for discharge Results - Labs CBC & Chem 7: 11/13/20 05:23 11/13/20 04:00 Labs: Laboratory Last Values WBC 19.5 K/mm3 (4.5-11.0) H 11/11/20 13:39 RBC 5.93 M/mm3 (3.65-5.03) H 11/11/20 13:39 Hgb 17.0 gm/dl (10.1-14.3) H 11/11/20 13:39 Hct 50.6 % (30.3-42.9) H 11/11/20 13:39 MCV 85 fl (79-97) 11/11/20 13:39 MCH 29 pg (28-32) 11/11/20 13:39 MCHC 34 % (30-34) 11/11/20 13:39 RDW 14.2 % (13.2-15.2) 11/11/20 13:39 Plt Count 449 K/mm3 (140-440) H 11/11/20 13:39 Lymph % (Auto) 12.0 % (13.4-35.0) L 11/11/20 13:39 [place] % (Auto) 7.7 % (0.0-7.3) H 11/11/20 13:39 Eos % (Auto) 0.1 % (0.0-4.3) 11/11/20 13:39 Baso % (Auto) 0.2 % (0.0-1.8) 11/11/20 13:39 Lymph # (Auto) 2.3 K/mm3 (1.2-5.4) 11/11/20 13:39 [place] # (Auto) 1.5 K/mm3 (0.0-0.8) H 11/11/20 13:39 Eos # (Auto) 0.0 K/mm3 (0.0-0.4) 11/11/20 13:39 Baso # (Auto) 0.0 K/mm3 (0.0-0.1) 11/11/20 13:39 Seg Neutrophils % 80.0 % (40.0-70.0) H 11/11/20 13:39 Seg Neutrophils # 15.6 K/mm3 (1.8-7.7) H 11/11/20 13:39 PT 13.3 Sec. (12.2-14.9) 11/11/20 14:54 INR 0.96 (0.87-1.13) 11/11/20 14:54 APTT 25.8 Sec. (24.2-36.6) 11/11/20 14:54 D-Dimer 1525.92 ng/mlDDU (0-234) H 11/11/20 16:59 ABG pH 7.501 (7.320-7.450) H 11/11/20 17:12 POC ABG pCO2 38.5 mmHg (32.0-48.0) 11/11/20 17:12 POC ABG pO2 55.0 mmHg (83-108) L 11/11/20 17:12 POC ABG HCO3 29.4 11/11/20 17:12 ABG O2 Saturation 90.1 (0-100) 11/11/20 17:12 POC ABG Base Excess 6.0 11/11/20 17:12 ABG Hemoglobin 17.1 (12.0-17.5) 11/11/20 17:12 ABG Oxyhemoglobin 89.5 (94-98) L 11/11/20 17:12 ABG Methemoglobin 0 (0.0-1.5) 11/11/20 17:12 ABG Sodium 140.4 mmol/L (136.0-145.0) 11/11/20 17:12 ABG Potassium 3.2 mmol/L (3.40-4.50) L 11/11/20 17:12 ABG Chloride 98.0 mmol/L (98-107) 11/11/20 17:12 ABG Glucose 131 mg/dL (65-95) H 11/11/20 17:12 Carboxyhemoglobin 0.7 (0.5-1.5) 11/11/20 17:12 FiO2 % 21.0 11/11/20 17:12 Sodium 140 mmol/L (137-145) 11/11/20 13:39 Potassium 3.5 mmol/L (3.6-5.0) L 11/11/20 13:39 Chloride 97.3 mmol/L (98-107) L 11/11/20 13:39 Carbon Dioxide 26 mmol/L (22-30) 11/11/20 13:39 Anion Gap 20 mmol/L 11/11/20 13:39 BUN 30 mg/dL (7-17) H 11/11/20 13:39 Creatinine 0.5 mg/dL (0.6-1.2) L 11/11/20 13:39 Estimated GFR > 60 ml/min 11/11/20 13:39 BUN/Creatinine Ratio 60 % 11/11/20 13:39 Glucose 117 mg/dL (65-100) H 11/11/20 16:59 Lactic Acid 1.40 mmol/L (0.7-2.0) 11/11/20 15:10 Calcium 10.2 mg/dL (8.4-10.2) 11/11/20 13:39 Ferritin 66.9 ng/mL (10.0-200.0) 11/11/20 16:59 Total Bilirubin 0.90 mg/dL (0.1-1.2) 11/11/20 13:39 AST 22 units/L (5-40) 11/11/20 13:39 ALT 15 units/L (7-56) 11/11/20 13:39 Alkaline Phosphatase 89 units/L (35-129) 11/11/20 13:39 Lactate Dehydrogenase 204 units/L (91-180) H 11/11/20 16:59 Troponin T < 0.010 ng/mL (0.00-0.029) 11/11/20 13:39 C-Reactive Protein 1.10 mg/dL (0.00-1.30) 11/11/20 16:59 Total Protein 8.0 g/dL (6.3-8.2) 11/11/20 13:39 Albumin 3.8 g/dL (3.9-5) L 11/11/20 13:39 Albumin/Globulin Ratio 0.9 % 11/11/20 13:39 Lipase 55 units/L (13-60) 11/11/20 13:39 Arterial Blood Glucose 131 mg/dL (65-95) H 11/11/20 17:12 Urine Color Yellow (Yellow) 11/11/20 Unknown Urine Turbidity Turbid (Clear) 11/11/20 Unknown Urine pH 5.0 (5.0-7.0) 11/11/20 Unknown Ur Specific [place] 1.029 (1.003-1.030) 11/11/20 Unknown Urine Protein 100 mg/dl mg/dL (Negative) 11/11/20 Unknown Urine Glucose (UA) Neg mg/dL (Negative) 11/11/20 Unknown Urine Ketones 20 mg/dL (Negative) 11/11/20 Unknown Urine Blood Sm (Negative) 11/11/20 Unknown Urine Nitrite Neg (Negative) 11/11/20 Unknown Urine Bilirubin Neg (Negative) 11/11/20 Unknown Urine Urobilinogen < 2.0 mg/dL (<2.0) 11/11/20 Unknown Ur Leukocyte Esterase Sm (Negative) 11/11/20 Unknown Urine WBC (Auto) 1.0 /HPF (0.0-6.0) 11/11/20 Unknown Urine RBC (Auto) 1.0 /HPF (0.0-6.0) 11/11/20 Unknown Blood Type A POSITIVE 11/11/20 15:00 Antibody Screen Negative 11/11/20 15:00 Short CBC 11/13/20 Range/Units 05:23 WBC 15.9 H (4.5-11.0) K/mm3 Hgb 14.1 (10.1-14.3) gm/dl Hct 44.4 H (30.3-42.9) % Plt Count 312 (140-440) K/mm3 [facility] 11/13/20 04:00 Sodium 143 Potassium 3.1 L Chloride 105.4 Carbon Dioxide 22 D BUN 64 H Creatinine 2.2 H D Glucose 105 H Calcium 8.3 L D Liver Function 11/13/20 Range/Units 04:00 Total Bilirubin 0.80 (0.1-1.2) mg/dL AST 366 H (5-40) units/L ALT 316 H (7-56) units/L Alkaline Phosphatase 63 (35-129) units/L Albumin 2.5 L (3.9-5) g/dL Short CBC 11/13/20 Range/Units 05:23 WBC 15.9 H (4.5-11.0) K/mm3 Hgb 14.1 (10.1-14.3) gm/dl Hct 44.4 H (30.3-42.9) % Plt Count 312 (140-440) K/mm3 [facility] 11/13/20 04:00 Sodium 143 Potassium 3.1 L Chloride 105.4 Carbon Dioxide 22 D BUN 64 H Creatinine 2.2 H D Glucose 105 H Calcium 8.3 L D Liver Function 11/13/20 Range/Units 04:00 Total Bilirubin 0.80 (0.1-1.2) mg/dL AST 366 H (5-40) units/L ALT 316 H (7-56) units/L Alkaline Phosphatase 63 (35-129) units/L Albumin 2.5 L (3.9-5) g/dL Microbiology: Microbiology 11/11/20 15:10 Peripheral/Venous Blood Culture - Preliminary Culture in Progress 11/11/20 15:21 Peripheral/Venous Blood Culture - Preliminary Culture in Progress 11/11/20 13:50 Stool Stool Occult Blood (GIOVANNI) - Final - Imaging and Cardiology EKG: report reviewed (Sinus tachycardia no acute ST-T wave changes) Chest x-ray: report reviewed (No acute findings) CT scan - abdomen: report reviewed Imaging and Cardiology: CT ABDOMEN AND PELVIS WITH AND WITHOUT IV CONTRAST INDICATION: There are several mild compression deformities involving the L1, L2 and L3 vertebral bodies. Evaluation of soft tissue structures shows no acute soft tissue abnormality. IMPRESSION: 1. Obstructing 7 mm stone in the distal left ureter causing mild left-sided hydronephrosis and perinephric stranding. 2. There is a single 8 mm stone in the left renal pelvis. It is difficult to determine if this is causing any degree of obstruction or may be an incidental finding. 3. Simple 5 cm left adnexal cyst. Assessment and Plan Advance Directives: Yes (Full code) VTE prophylaxis?: Chemical (Full code) Plan of care discussed with patient/family: Yes - Patient Problems (1) Acute respiratory failure with hypoxia Current Visit: Yes Status: Acute Plan to address problem: Oxygen supplementation as necessary Covid to be ruled out (2) Sepsis Current Visit: Yes Status: Acute Qualifiers: Severe sepsis shock status: without septic shock Plan to address problem: Patient has a high white count but normal lactic acid Source of infection may be urinary tract As a stone in the left renal pelvis We will start on cefepime and vancomycin (3) Dehydration Current Visit: Yes Status: Acute Plan to address problem: IV fluids for now (4) Suspected 2019 novel coronavirus infection Current Visit: Yes Status: Acute Plan to address problem: Coronavirus PCR in a.m. (5) Intractable nausea and vomiting Current Visit: Yes Status: Acute Plan to address problem: IV Zofran and IV Reglan for now Possible Covid (6) T2DM (type 2 diabetes mellitus) Current Visit: Yes Status: Chronic Qualifiers: Diabetes mellitus fci insulin use: without fci use Plan to address problem: Coverage for now Check hemoglobin A1c (7) Lumbar compression fracture Current Visit: Yes Status: Chronic Qualifiers: Lumbar vertebra fracture level: L4 Fracture healing: with routine healing Plan to address problem: Lumbar compression fractures L3-L4-L5 on the CT scan of the abdomen and pelvis Pain management as necessary (8) DVT prophylaxis Current Visit: Yes Status: Acute Plan to address problem: On heparin and GI prophylaxis
[2020-11-11] MEDS ORDERED: BACLOFEN 10 MG TAB PO PRN (22:09)
[2020-11-11] MEDS ORDERED: METOCLOPRAMIDE 10 MG/2 ML INJ IV PRN (22:11)
[2020-11-11] MEDS ORDERED: ACETAMINOPHEN 325 MG TAB PO PRN (22:11)
[2020-11-11] MEDS ORDERED: HYDROmorphone 1 MG/1 ML INJ IV PRN (22:11)
[2020-11-11] MEDS ORDERED: oxyCODONE /ACETAMINOPHEN 5-325MG TAB PO PRN (22:11)
[2020-11-11] MEDS ORDERED: ONDANSETRON 4 MG/2 ML INJ IV PRN (22:11)
[2020-11-11] MEDS: FAMOTIDINE 10 MG TAB PO SCH (23:31)
[2020-11-12 05:47] LABS: Basophils % (Auto) 0.3 % (0.0-1.8); Eosinophils # (Auto) 0.4 K/mm3 (0.0-0.4); Eosinophils % (Auto) 2.2 % (0.0-4.3); Hematocrit 50.3 % (30.3-42.9); Hemoglobin 16.6 gm/dl (10.1-14.3); Lymphocytes % (Auto) 12.1 % (13.4-35.0); Mean Corpuscular HGB Conc 33 % (30-34); Mean Corpuscular Volume 88 fl (79-97); Monocytes # (Auto) 1.3 K/mm3 (0.0-0.8); Monocytes % (Auto) 7.5 % (0.0-7.3); Platelet Count 450 K/mm3 (140-440); Red Blood Count 5.74 M/mm3 (3.65-5.03); Red Cell Distribution Width 14.6 % (13.2-15.2)
[2020-11-12 06:08] LABS: Alanine Aminotransferase 18 units/L (7-56); Albumin 4.2 g/dL (3.9-5); BUN/Creatinine Ratio 57; Blood Urea Nitrogen 34 mg/dL (7-17); Calcium 11.1 mg/dL (8.4-10.2); Hemolysis Index 12
[2020-11-12] MEDS ORDERED: QUETIAPINE FUMARATE 200 MG PO SCH (10:00)
[2020-11-12] MEDS ORDERED: ACETAMINOPHEN 325 MG TAB PO SCH (10:00)
[2020-11-12] MEDS: FAMOTIDINE 10 MG TAB PO SCH (11:41)
[2020-11-12] MEDS: HEPARIN 5,000 UNIT/1 ML VIAL SUB-Q SCH ×2 (11:42→22:30)
[2020-11-12] MEDS: QUEtiapine 200 MG TAB PO SCH (11:42)
[2020-11-12] MEDS: PARoxetine 10 MG TAB PO SCH (12:50)
--- NOTE | 2020-11-12 18:07 | Electrocardiograph Report ---
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
[2020-11-12] MEDS ORDERED: QUEtiapine 200 MG TAB PO SCH (22:00)
[2020-11-13] MEDS ORDERED: SODIUM CHLORIDE 0.9% 1000 ML 1,000 ML IV ONE (00:32)
--- NOTE | 2020-11-13 00:35 | XRay Report ---
CHEST 1 VIEW 11/13/2020 12:26 AM INDICATION / CLINICAL INFORMATION: rule out aspiration. Nausea and vomiting. Hypoxia. COMPARISON: 11/11/20 FINDINGS: SUPPORT DEVICES: None. HEART / MEDIASTINUM: No significant abnormality. LUNGS / PLEURA: Mild bibasilar atelectasis but no acute airspace disease. No pneumothorax. ADDITIONAL FINDINGS: No significant additional findings. IMPRESSION: 1. Mild bibasilar atelectasis but no pneumonia. Signer Name: Alisa Harvey MD Signed: 11/13/2020 12:31 AM Workstation Name: [id number]
[2020-11-13] MEDS ORDERED: LIDOCAINE 2%/EPINEPHRINE 1:100,000 VIAL (20 ML) INFILTRATI ONE (01:52)
--- NOTE | 2020-11-13 02:59 | Procedure Note ---
Date of procedure: 11/13/20 Pre-op diagnosis: COVID-19, hypokalemia, need to establish definitive IV access Post-op diagnosis: same Procedure: Patient is an 85-year-old female with a history of hypoxemic respiratory failure secondary to COVID-19. Patient has 1 IV in her right sided external jugular vein, which is positional, and patient has developed hypotension in the past few hours. The hospital physician has contacted the patient's family to discuss her goals of care, and advanced directives. The family endorsed to the hospital physician that they would like maximally aggressive care. Therefore, hospitalist team has requested assistance for definitive line placement for hypotension, in this critically ill patient. Hospital physician, Dr. Dsouza and myself have therefore emergently administratively consented this patient for sterile central line placement, after IMS team updated patient's family on patient status and clarify goals of care. Left neck is cleansed with typical aseptic alcohol swab, and anesthetized with 10 cc of 1% lidocaine with epinephrine Patient prepped and draped in typical maximal sterile fashion. Using ultrasound guidance, left-sided internal jugular vein is cannulated with an 18-gauge needle, with 3 inch plastic catheter, guidewire, 0.032 x 60 cm, J-tip with a 3 mm radius is then inserted into the guiding catheter, and appropriate luminal placement is confirmed with real-time [id number] ultrasound guidance. A stab incision is made with an 11-gauge blade, and then incision is dilated. The 7 American triple-lumen catheter has each of the 3 ports flushed with sterile saline in advance of placement. Then, a 7 American triple-lumen catheter is inserted over the guidewire, and sutured to the skin. Real-time ultrasound guidance confirms appropriate luminal placement. Ports are aspirated easily, and flushed easily. Blood loss estimated at 50 cc. Blue Biopatch is then affixed to the skin, and Tegaderm is applied to the skin. Postprocedure x-ray suggested malposition of the line. Therefore, CT scan of the chest, CT angiogram of the chest were obtained. They confirmed arterial placement of the central line. Contacted vascular surgeon on-call, Dr. Gary. Discussed patient's history, physical, central line placement, and current considerations. He advises at the vascular surgery group can follow in consultation. He advises standard heparinization, and that the left-sided Not be used whatsoever. The hospital physician is updated, and have recommended up triaged to critical care unit. Have placed second functional right femoral line given need for emergent access. Patient prepped and draped in typical maximal sterile fashion. Using ultrasound guidance, right femoral vein is cannulated introducer needle, and then guidewire, 0.032 x 60 cm, J-tip with a 3 mm radius is then inserted into the guiding catheter, and appropriate luminal placement is confirmed with real-time [id number] ultrasound guidance. A stab incision is made with an 11-gauge blade, and then incision is dilated. The 7 American triple-lumen catheter has each of the 3 ports flushed with sterile saline in advance of placement. Then, a 7 American triple-lumen catheter is inserted over the guidewire, and sutured to the skin. Real-time ultrasound guidance confirms appropriate luminal placement. Ports are aspirated easily, and flushed easily. Blue Biopatch is then affixed to the skin, and Tegaderm is applied to the skin. This patient tolerated the procedure well, and without obvious complication. Blood loss estimated at less than 50 cc. The hospital physician is subsequently updated on placement. Nursing team explicitly instructed to not use left-sided neck central line. CHEST 1 VIEW 11/13/2020 3:16 AM INDICATION / CLINICAL INFORMATION: s/p left central line placement. COMPARISON: 12:45 AM FINDINGS: SUPPORT DEVICES: Left jugular central line has been placed with the tip projecting over the left mediastinum. HEART / MEDIASTINUM: Stable. LUNGS / PLEURA: Bibasilar atelectasis is unchanged. No pneumothorax. ADDITIONAL FINDINGS: No significant additional findings. IMPRESSION: 1. Left jugular central line projecting over the left mediastinum. Arterial placement cannot be excluded. Signer Name: Alisa vicente MD Signed: 11/13/2020 2:35 AM Workstation Name: [email or web address] X-ray the chest is reviewed and appreciated. Therefore, we will obtain noncontrast CT scan of the chest/CT angiogram of the chest to better assess placement of line. Patient emergently administratively consented for CT scan acquisition. CT CHEST WITHOUT CONTRAST INDICATION / CLINICAL INFORMATION: Status-Post Central Line Placement, Covid +. TECHNIQUE: Axial CT images were obtained through the chest without contrast. All CT scans at this location are performed using CT dose reduction for ALARA by means of automated exposure control. COMPARISON: Chest radiograph earlier on same date FINDINGS: HEART: No significant abnormality. CORONARY ARTERY CALCIFICATION: Moderate. THORACIC AORTA: Mild atherosclerotic calcification without acute abnormality. MEDIASTINUM / BREEZY: Left central line is present in the left carotid artery with the tip at the junction of the aortic arch. PLEURA: No pleural effusion. No pneumothorax. LUNGS: Bibasilar dependent atelectasis. No definite acute airspace disease. ADDITIONAL FINDINGS: None. UPPER ABDOMEN: Moderately distended, fluid-filled stomach. SKELETAL SYSTEM: No significant abnormality. IMPRESSION: 1. Left central line in the left carotid artery with tip at the junction of the superior aortic arch. Please see subsequent CTA chest performed at the same time for further details. 2. Bibasilar dependent atelectasis. Signer Name: Alisa Harvey MD Signed: 11/13/2020 3:42 AM Workstation Name: [id number] CTA CHEST WITH CONTRAST INDICATION / CLINICAL INFORMATION: Status-Post Central Line Placement, Covid +. TECHNIQUE: Axial CT images were obtained through the chest after injection of 100 mL Omnipaque 350 IV contrast. Study was optimized for evaluation of the aorta. 3 plane MIP and/or 3D reconstructions were produced. All CT scans at this location are performed using CT dose reduction for ALARA by means of automated exposure control. COMPARISON: Noncontrast CT chest performed immediately prior to this study. FINDINGS: PULMONARY ARTERIES: Not enhanced by contrast. THORACIC AORTA: Left central line placement in the left carotid artery with the tip of the catheter at the junction between the left carotid artery and aortic arch. No extraluminal contrast or soft tissue hematoma. HEART: No significant abnormality. CORONARY ARTERY CALCIFICATION: None. MEDIASTINUM / BREEZY: No significant abnormality. PLEURA: No pleural effusion. No pneumothorax. LUNGS: Dependent bibasilar atelectasis. No acute airspace disease. ADDITIONAL FINDINGS: None. UPPER ABDOMEN: No acute findings. SKELETAL STRUCTURES: No significant osseous abnormality. IMPRESSION: 1. Left central line intra-arterial placement in the left carotid artery with the tip at the junction of the aortic arch. No extraluminal contrast or soft tissue hematoma. CRITICAL RESULT Time of Discovery (RANCH SUPERVISOR/CDT): 3:45 AM Time of Communication (RANCH SUPERVISOR/CDT): 4:00 AM Licensed Practitioner Receiving Report: Dr. Ravi in the ED Signer Name: Alisa Harvey MD Signed: 11/13/2020 4:06 AM Workstation Name: [id number] Anesthesia: local Surgeon: ARNEL RAVI Iuss Master Analyst: LILLI TERRY Estimated blood loss: minimal Pathology: none Condition: critical Disposition: no change
--- NOTE | 2020-11-13 03:39 | XRay Report ---
CHEST 1 VIEW 11/13/2020 3:16 AM INDICATION / CLINICAL INFORMATION: s/p left central line placement. COMPARISON: 12:45 AM FINDINGS: SUPPORT DEVICES: Left jugular central line has been placed with the tip projecting over the left medi astinum. HEART / MEDIASTINUM: Stable. LUNGS / PLEURA: Bibasilar atelectasis is unchanged. No pneumothorax. ADDITIONAL FINDINGS: No significant additional findings. IMPRESSION: 1. Left jugular central line projecting over the left mediastinum. Arterial placement cannot be exclu ded. Signer Name: Alisa Harvey MD Signed: 11/13/2020 3:35 AM Workstation Name: [id number]
--- NOTE | 2020-11-13 04:47 | Cat Scan Report ---
CT CHEST WITHOUT CONTRAST INDICATION / CLINICAL INFORMATION: Status-Post Central Line Placement, Covid +. TECHNIQUE: Axial CT images were obtained through the chest without contrast. All CT scans at this [facility] ation are performed using CT dose reduction for ALARA by means of automated exposure control. COMPARISON: Chest radiograph earlier on same date FINDINGS: HEART: No significant abnormality. CORONARY ARTERY CALCIFICATION: Moderate. THORACIC AORTA: Mild atherosclerotic calcification without acute abnormality. MEDIASTINUM / BREEZY: Left central line is present in the left carotid artery with the tip at the junct ion of the aortic arch. PLEURA: No pleural effusion. No pneumothorax. LUNGS: Bibasilar dependent atelectasis. No definite acute airspace disease. ADDITIONAL FINDINGS: None. UPPER ABDOMEN: Moderately distended, fluid-filled stomach. SKELETAL SYSTEM: No significant abnormality. IMPRESSION: 1. Left central line in the left carotid artery with tip at the junction of the superior aortic arch. Please see subsequent CTA chest performed at the same time for further details. 2. Bibasilar dependent atelectasis. Signer Name: Alisa Harvey MD Signed: 11/13/2020 4:42 AM Workstation Name: [id number]
[2020-11-13] MEDS: FAMOTIDINE 10 MG TAB PO SCH (04:55)
[2020-11-13] MEDS: rOPINIRole 1 MG TAB PO SCH ×2 (04:56→21:41)
[2020-11-13] MEDS ORDERED: SODIUM CHLORIDE 0.9% 1000 ML 2,000 ML IV ONE (04:59)
[2020-11-13] MEDS ORDERED: HEPARIN 10,000 UNITS/10 ML VIAL IV PRN (05:04)
[2020-11-13] MEDS ORDERED: HEPARIN 10,000 UNITS/10 ML VIAL IV ONE (05:04)
--- NOTE | 2020-11-13 05:10 | Cat Scan Report ---
CTA CHEST WITH CONTRAST INDICATION / CLINICAL INFORMATION: Status-Post Central Line Placement, Covid +. TECHNIQUE: Axial CT images were obtained through the chest after injection of 100 mL Omnipaque 350 IV contrast. Study was optimized for evaluation of the aorta. 3 plane MIP and/or 3D reconstructions wer e produced. All CT scans at this location are performed using CT dose reduction for ALARA by means of automated exposure control. COMPARISON: Noncontrast CT chest performed immediately prior to this study. FINDINGS: PULMONARY ARTERIES: Not enhanced by contrast. THORACIC AORTA: Left central line placement in the left carotid artery with the tip of the catheter a t the junction between the left carotid artery and aortic arch. No extraluminal contrast or soft tiss ue hematoma. HEART: No significant abnormality. CORONARY ARTERY CALCIFICATION: None. MEDIASTINUM / BREEZY: No significant abnormality. PLEURA: No pleural effusion. No pneumothorax. LUNGS: Dependent bibasilar atelectasis. No acute airspace disease. ADDITIONAL FINDINGS: None. UPPER ABDOMEN: No acute findings. SKELETAL STRUCTURES: No significant osseous abnormality. IMPRESSION: 1. Left central line intra-arterial placement in the left carotid artery with the tip at the junction of the aortic arch. No extraluminal contrast or soft tissue hematoma. CRITICAL RESULT Time of Discovery (LIMEHOUSE WORKER/CDT): 3:45 AM Time of Communication (LIMEHOUSE WORKER/CDT): 4:00 AM Licensed Practitioner Receiving Report: Dr. Ravi in the ED Signer Name: Alisa Harvey MD Signed: 11/13/2020 5:06 AM Workstation Name: [id number]
[2020-11-13] MEDS ORDERED: EPINEPHrine 1 MG/10 ML SYRINGE ONE (05:29)
--- NOTE | 2020-11-13 05:29 | Event Note ---
Date: 11/13/20 85-year-old white female who was been on admission for intractable nausea and vomiting and was also COVID-19 positive has gone into respiratory distress. Daughter Kirstin camilo was informed over the phone about patient's change in condition. Family is agreeable to possible intubation if needed. Emergency room physician was consulted for central line and for possible intubation. A right femoral central line, left IO was placed by the ER physician. Patient being intubated for worsening respiratory failure. We will follow up on labs including ABG and chest x-ray. Will change status to ICU and whizzer hand consulted. Incoming hospitalist also notified.
[2020-11-13] MEDS ORDERED: MINERAL OIL/PETROLATUM, WHITE OPHTH OINT 3.5 GM OU PRN (05:33)
[2020-11-13] MEDS ORDERED: fentaNYL 100 MCG/2 ML INJ IV PRN (05:33)
[2020-11-13] MEDS ORDERED: LIP THERAPY VASELINE TP PRN (05:33)
--- NOTE | 2020-11-13 05:54 | Procedure Note ---
Date of procedure: 11/13/20 Pre-op diagnosis: Respiratory failure secondary to Covid Post-op diagnosis: same Procedure: Hospitalist team has requested definitive airway management for respiratory failure secondary to COVID-19. They discussed goals of care and advanced directives with patient's family, who have indicated that this patient is a full code. Patient herself is acutely altered, obtunded, and demonstrating acute respiratory failure. She is placed on nasal cannula at 15 L/min. She receives [id number] ventilation simultaneously. She is induced with 20 mg of etomidate, and 100 mg of rocuronium Video laryngoscopy performed, trachea is noted to be anterior. Gastric contents noted in the oropharynx, which is suctioned aggressively. the patient is found to have copious gastric contents in the oropharynx. She is aggressively suctioned. Using a curved Bony 3 blade,n gum bougie elastic catheter is introduced into the trachea, and an 8.0 endotracheal tube was then inserted over the gum elastic bougie. There is appropriate post capnography color change. The patients clinical condition is unchanged. Defer to inpatient team to follow-up on post procedure x-ray, and manage this patient post intubation. Post intubation prognosis is very poor Anesthesia: other (Etomidate, rocuronium) Surgeon: ARNEL CHAVES Cnc Applications Engineer: LILLI TERRY Estimated blood loss: none Condition: critical Disposition: ICU
[2020-11-13 05:59] LABS: Albumin 2.5 g/dL (3.9-5); Calcium 8.3 mg/dL (8.4-10.2)
[2020-11-13 06:06] LABS: Hematocrit 44.4 % (30.3-42.9); Hemoglobin 14.1 gm/dl (10.1-14.3); Lymphocytes # (Auto) 0.9 K/mm3 (1.2-5.4); Lymphocytes % (Auto) 5.7 % (13.4-35.0); Mean Corpuscular HGB Conc 32 % (30-34); Mean Corpuscular Volume 90 fl (79-97); Monocytes # (Auto) 1.4 K/mm3 (0.0-0.8); Platelet Count 312 K/mm3 (140-440); Red Blood Count 4.96 M/mm3 (3.65-5.03); Red Cell Distribution Width 14.5 % (13.2-15.2)
--- NOTE | 2020-11-13 06:26 | XRay Report ---
CHEST 1 VIEW 11/13/2020 6:00 AM INDICATION / CLINICAL INFORMATION: ETT placement. COMPARISON: 11/13/20 3:19 AM FINDINGS: SUPPORT DEVICES: Endotracheal tube has been placed with the tip 4.2 cm above the aggie. Esophagogast delilah tube has been placed below the diaphragm into the stomach. Left central line again projects over the superior left mediastinum. HEART / MEDIASTINUM: Stable. LUNGS / PLEURA: Subtle increase in left lung base atelectasis. No pneumothorax. ADDITIONAL FINDINGS: No significant additional findings. IMPRESSION: 1. Endotracheal and esophagogastric tube in expected position. 2. Left central line again projects over the superior left mediastinum. Signer Name: Alisa Harvey MD Signed: 11/13/2020 6:21 AM Workstation Name: [id number]
[2020-11-13] MEDS: fentaNYL DRIP Premix 2,000 MCG/100 ML BAG IV SCH ×2 (06:35→21:41)
[2020-11-13] MEDS: NORepinephrine/NS 4 MG-250 ML 4 MG/250 ML BAG IV SCH ×3 (06:46→17:25)
--- NOTE | 2020-11-13 07:03 | Progress Note ---
Assessment and Plan - Patient Problems (1) Acute respiratory failure with hypoxia Current Visit: Yes Status: Acute Plan to address problem: Oxygen supplementation as necessary Covid to be ruled out (2) Sepsis Current Visit: Yes Status: Acute Qualifiers: Severe sepsis shock status: without septic shock Plan to address problem: Patient has a high white count but normal lactic acid Source of infection may be urinary tract As a stone in the left renal pelvis We will start on cefepime and vancomycin (3) Dehydration Current Visit: Yes Status: Acute Plan to address problem: IV fluids for now (4) Intractable nausea and vomiting Current Visit: Yes Status: Acute Plan to address problem: IV Zofran and IV Reglan for now Possible Covid (5) Suspected 2019 novel coronavirus infection Current Visit: Yes Status: Acute Plan to address problem: Coronavirus PCR positive IV Decadron for now ID consult for tomorrow (6) Lumbar compression fracture Current Visit: Yes Status: Chronic Qualifiers: Lumbar vertebra fracture level: L4 Fracture healing: with routine healing Plan to address problem: Lumbar compression fractures L3-L4-L5 on the CT scan of the abdomen and pelvis Pain management as necessary (7) T2DM (type 2 diabetes mellitus) Current Visit: Yes Status: Chronic Qualifiers: Diabetes mellitus prison insulin use: without long term acute care registered nurse use Plan to address problem: Coverage for now Check hemoglobin A1c (8) DVT prophylaxis Current Visit: Yes Status: Acute Plan to address problem: On heparin and GI prophylaxis Subjective Date of service: 11/12/20 Principal diagnosis: Acute respiratory failure with hypoxia, sepsis Interval history: 85-year-old female with obesity, chronic low back pain, muscle spasms and depression presents with nausea vomiting and decreased p.o. intake for 1 week. Patient also complains of mild diarrhea. No abdominal pain. No fever or dysuria. She is bedridden and nonambulatory. Patient is oriented to self and knows that she is in the hospital. Patient says the year is 2080. Oxygen saturation is 99 to 90% on room air also complains of cough and shortness of breath. Denies any home oxygen. As per daughter patient has pain having nausea and vomiting for past 3 days. EMS was called 1 day to assess and they gave IV fluids but did not transport the patient. Today because of the persistent vomiting and apparent small amount of blood in vomit patient was transferred to [facility] for further evaluation and treatment. As mentioned patient is slightly hypoxic at 88 to 90% on room air. Continues to vomit. 85-yearqold female with a past medical history of chronic lower back pain, chronic UTI, and depression with previous cholecystectomy, bladder surgery, kidney surgery presents to the hospital complaints of nausea and vomiting with decreased p.o. intake x1 week. Patient also complains of mild diarrhea. She denies abdominal pain, fever, dysuria. She is chronically nonambulatory. She is currently oriented to self and knows that she is currently [place] but states the year is 2080. Patient noted to have room air saturation of 89 to 90%. Complains of cough without shortness of breath. Denies home oxygen use. Daughter's phone number [phone] 11/12/2020 Patient doing well Discussed with daughter at length about her prognosis and treatment No nausea vomiting since morning Coronavirus PCR came positive Objective - Constitutional Vitals: Vital Signs - 12hr 11/12/20 11/12/20 11/12/20 19:10 19:20 19:30 Temperature Pulse Rate Respiratory 50 H 50 H 49 H Rate Blood Pressure 110/80 128/76 116/71 Blood Pressure [Right] O2 Sat by Pulse 87 87 87 Oximetry 11/12/20 11/12/20 11/12/20 19:40 19:50 20:00 Temperature Pulse Rate Respiratory 41 H 29 H 43 H Rate Blood Pressure 116/71 116/71 106/76 Blood Pressure [Right] O2 Sat by Pulse 87 89 87 Oximetry 11/12/20 11/12/20 11/12/20 20:16 20:30 20:46 Temperature Pulse Rate 128 H Respiratory 45 H 46 H 51 H Rate Blood Pressure 106/76 94/61 94/61 Blood Pressure [Right] O2 Sat by Pulse 81 L 92 Oximetry 11/12/20 11/12/20 11/12/20 21:00 21:16 21:30 Temperature Pulse Rate 129 H 123 H 117 H Respiratory 43 H 45 H 37 H Rate Blood Pressure 86/68 86/68 96/66 Blood Pressure [Right] O2 Sat by Pulse 94 95 95 Oximetry 11/12/20 11/12/20 11/12/20 21:46 22:00 22:16 Temperature Pulse Rate 129 H 127 H 128 H Respiratory 48 H 41 H 42 H Rate Blood Pressure 96/66 97/58 97/58 Blood Pressure [Right] O2 Sat by Pulse 94 93 94 Oximetry 11/12/20 11/12/20 11/12/20 22:30 22:44 22:46 Temperature Pulse Rate 127 H 128 H 128 H Respiratory 43 H 38 H 41 H Rate Blood Pressure 91/58 91/58 91/58 Blood Pressure [Right] O2 Sat by Pulse 94 94 95 Oximetry 11/12/20 11/12/20 11/12/20 23:00 23:16 23:30 Temperature Pulse Rate 128 H 127 H 126 H Respiratory 46 H 41 H 51 H Rate Blood Pressure 82/53 82/53 61/41 Blood Pressure [Right] O2 Sat by Pulse 95 95 95 Oximetry 11/12/20 11/13/20 11/13/20 23:46 00:00 00:15 Temperature Pulse Rate 126 H 122 H 116 H Respiratory 50 H 42 H 46 H Rate Blood Pressure 61/41 77/36 88/55 Blood Pressure [Right] O2 Sat by Pulse 95 96 92 Oximetry 11/13/20 11/13/20 11/13/20 00:32 00:41 00:46 Temperature Pulse Rate 114 H 118 H Respiratory 52 H 53 H Rate Blood Pressure 81/54 78/52 Blood Pressure [Right] O2 Sat by Pulse 92 94 94 Oximetry 11/13/20 11/13/20 11/13/20 00:59 01:01 01:15 Temperature 98.7 F Pulse Rate 114 H 114 H 115 H Respiratory 47 H 52 H 44 H Rate Blood Pressure 88/55 88/55 Blood Pressure 88/55 [Right] O2 Sat by Pulse 94 93 92 Oximetry 11/13/20 11/13/20 11/13/20 01:31 01:46 02:00 Temperature Pulse Rate 117 H 122 H 124 H Respiratory 50 H 46 H 46 H Rate Blood Pressure 79/50 80/49 72/45 Blood Pressure [Right] O2 Sat by Pulse 94 95 94 Oximetry 11/13/20 11/13/20 11/13/20 02:16 02:30 02:46 Temperature Pulse Rate 121 H 122 H 117 H Respiratory 46 H 31 H 24 Rate Blood Pressure 68/45 50/20 108/52 Blood Pressure [Right] O2 Sat by Pulse 94 93 93 Oximetry 11/13/20 11/13/20 11/13/20 03:00 03:16 03:30 Temperature Pulse Rate 115 H Respiratory 48 H 46 H 42 H Rate Blood Pressure 108/52 108/52 108/52 Blood Pressure [Right] O2 Sat by Pulse 97 93 93 Oximetry 11/13/20 11/13/20 11/13/20 03:46 04:00 04:20 Temperature Pulse Rate Respiratory 41 H 36 H 18 Rate Blood Pressure 48/28 48/28 48/28 Blood Pressure [Right] O2 Sat by Pulse 95 96 Oximetry 11/13/20 11/13/20 11/13/20 04:30 04:46 05:01 Temperature Pulse Rate 109 H 110 H 106 H Respiratory 51 H 48 H 42 H Rate Blood Pressure 82/45 58/35 58/35 Blood Pressure [Right] O2 Sat by Pulse 92 85 86 Oximetry 11/13/20 11/13/20 11/13/20 05:15 05:31 05:45 Temperature Pulse Rate 101 H 168 H 131 H Respiratory 43 H 43 H 20 Rate Blood Pressure 81/39 75/48 97/57 Blood Pressure [Right] O2 Sat by Pulse 90 83 L Oximetry 11/13/20 11/13/20 11/13/20 06:00 06:01 06:15 Temperature Pulse Rate 118 H 125 H 118 H Respiratory 16 20 Rate Blood Pressure 65/37 81/38 65/37 Blood Pressure [Right] O2 Sat by Pulse 96 Oximetry 11/13/20 06:31 Temperature Pulse Rate 114 H Respiratory 20 Rate Blood Pressure 65/32 Blood Pressure [Right] O2 Sat by Pulse Oximetry General appearance: Present: no acute distress, well-nourished - EENT Eyes: PERRL, EOM intact ENT: hearing intact, clear oral mucosa Ears: bilateral: normal - Neck Neck: supple, normal ROM - Respiratory Respiratory effort: normal Respiratory: bilateral: CTA - Breasts Breasts: normal - Cardiovascular Heart rate: 78 Rhythm: regular Heart Sounds: Present: S1 & S2. Absent: gallop, rub Extremities: pulses intact, No edema, normal color, Full ROM - Gastrointestinal General gastrointestinal: Present: soft, non-tender, non-distended, normal bowel sounds - Genitourinary Female genitourinary: normal - Integumentary Integumentary: clear, warm, dry - Musculoskeletal Musculoskeletal: 1, strength equal bilaterally - Neurologic Neurologic: moves all extremities - Psychiatric Psychiatric: memory intact, appropriate mood/affect, intact judgment & insight - Labs CBC & Chem 7: 11/13/20 05:23 11/13/20 04:00 Labs: Abnormal lab results 11/11/20 11/12/20 11/13/20 Range/Units Unknown 23:58 01:36 WBC (4.5-11.0) K/mm3 Hct (30.3-42.9) % Lymph % (Auto) (13.4-35.0) % [place] % (Auto) (0.0-7.3) % Lymph # (Auto) (1.2-5.4) K/mm3 [place] # (Auto) (0.0-0.8) K/mm3 Seg Neutrophils % (40.0-70.0) % Seg Neutrophils # (1.8-7.7) K/mm3 ABG Sodium 147.3 H (136.0-145.0) mmol/L ABG Potassium 3.2 L (3.40-4.50) mmol/L ABG Chloride 109.0 H (98-107) mmol/L ABG Glucose 118 H (65-95) mg/dL Carboxyhemoglobin 0.3 L (0.5-1.5) Potassium (3.6-5.0) mmol/L BUN (7-17) mg/dL Creatinine (0.6-1.2) mg/dL Glucose (65-100) mg/dL POC Glucose 181 H (70-105) mg/dL Calcium (8.4-10.2) mg/dL AST (5-40) units/L ALT (7-56) units/L Total Protein (6.3-8.2) g/dL Albumin (3.9-5) g/dL Arterial Blood Glucose 118 H (65-95) mg/dL Coronavirus (PCR) Positive A (Negative) 11/13/20 11/13/20 Range/Units 04:00 05:23 WBC 15.9 H (4.5-11.0) K/mm3 Hct 44.4 H (30.3-42.9) % Lymph % (Auto) 5.7 L (13.4-35.0) % [place] % (Auto) 9.0 H (0.0-7.3) % Lymph # (Auto) 0.9 L (1.2-5.4) K/mm3 [place] # (Auto) 1.4 H (0.0-0.8) K/mm3 Seg Neutrophils % 85.3 H (40.0-70.0) % Seg Neutrophils # 13.6 H (1.8-7.7) K/mm3 ABG Sodium (136.0-145.0) mmol/L ABG Potassium (3.40-4.50) mmol/L ABG Chloride (98-107) mmol/L ABG Glucose (65-95) mg/dL Carboxyhemoglobin (0.5-1.5) Potassium 3.1 L (3.6-5.0) mmol/L BUN 64 H (7-17) mg/dL Creatinine 2.2 H D (0.6-1.2) mg/dL Glucose 105 H (65-100) mg/dL POC Glucose (70-105) mg/dL Calcium 8.3 L D (8.4-10.2) mg/dL AST 366 H (5-40) units/L ALT 316 H (7-56) units/L Total Protein 5.4 L D (6.3-8.2) g/dL Albumin 2.5 L (3.9-5) g/dL Arterial Blood Glucose (65-95) mg/dL Coronavirus (PCR) (Negative) HEART Score - HEART Score Troponin: Troponin T < 0.010 ng/mL (0.00-0.029) 11/11/20 13:39
--- NOTE | 2020-11-13 07:34 | Progress Note ---
Assessment and Plan Critical care time The high probability OF a clinically significant sudden or life-threatening deterioration of the cardiorespiratory system and endocrine system required my full and direct attention, intervention and postoperative management. The aggregate critical care time was 40 minutes. The time is in addition to time spent performing reported procedures but includes the followin: Data review and interpretation 2: Patient assessment and monitoring of vital signs 3: Documentation 4:: Medication orders and management - Patient Problems (1) Acute respiratory failure with hypoxia Current Visit: Yes Status: Acute Plan to address problem: Oxygen supplementation as necessary Covid to be ruled out (2) Sepsis Current Visit: Yes Status: Acute Qualifiers: Severe sepsis shock status: without septic shock Plan to address problem: Patient has a high white count but normal lactic acid Source of infection may be urinary tract As a stone in the left renal pelvis We will start on cefepime and vancomycin (3) Dehydration Current Visit: Yes Status: Acute Plan to address problem: IV fluids for now (4) Intractable nausea and vomiting Current Visit: Yes Status: Acute Plan to address problem: IV Zofran and IV Reglan for now Possible Covid (5) Suspected 2019 novel coronavirus infection Current Visit: Yes Status: Acute Plan to address problem: Coronavirus PCR positive IV Decadron for now ID consult for tomorrow (6) Lumbar compression fracture Current Visit: Yes Status: Chronic Qualifiers: Lumbar vertebra fracture level: L4 Fracture healing: with routine healing Plan to address problem: Lumbar compression fractures L3-L4-L5 on the CT scan of the abdomen and pelvis Pain management as necessary (7) T2DM (type 2 diabetes mellitus) Current Visit: Yes Status: Chronic Qualifiers: Diabetes mellitus senior living insulin use: without senior living use Plan to address problem: Coverage for now Check hemoglobin A1c (8) Hydronephrosis of left kidney Current Visit: Yes Status: Acute Plan to address problem: Obstructing 7 mm stone in the distal left ureter causing mild left-sided hydronephrosis and perinephric stranding. 2. There is a single 8 mm stone in the left renal pelvis. It is difficult to determine if this is causing any degree of obstruction or may be an incidental finding. 3. Simple 5 cm left adnexal cyst. Will consult urology (9) DVT prophylaxis Current Visit: Yes Status: Acute Plan to address problem: On heparin and GI prophylaxis Subjective Date of service: 11/13/20 Principal diagnosis: Acute respiratory failure with hypoxia, sepsis Interval history: 85-year-old female with obesity, chronic low back pain, muscle spasms and depression presents with nausea vomiting and decreased p.o. intake for 1 week. Patient also complains of mild diarrhea. No abdominal pain. No fever or dysuria. She is bedridden and nonambulatory. Patient is oriented to self and knows that she is in the hospital. Patient says the year is 2080. Oxygen saturation is 99 to 90% on room air also complains of cough and shortness of breath. Denies any home oxygen. As per daughter patient has pain having nausea and vomiting for past 3 days. E was called 1 day to assess and they gave IV fluids but did not transport the patient. Today because of the persistent vomiting and apparent small amount of blood in vomit patient was transferred to [facility] for further evaluation and treatment. As mentioned patient is slightly hypoxic at 88 to 90% on room air. Continues to vomit. 85-yearqold female with a past medical history of chronic lower back pain, chronic UTI, and depression with previous cholecystectomy, bladder surgery, kidney surgery presents to the hospital complaints of nausea and vomiting with decreased p.o. intake x1 week. Patient also complains of mild diarrhea. She denies abdominal pain, fever, dysuria. She is chronically nonambulatory. She is currently oriented to self and knows that she is currently [place] but states the year is 2080. Patient noted to have room air saturation of 89 to 90%. Complains of cough without shortness of breath. Denies home oxygen use. Daughter's phone number [phone] 11/12/2020 Patient doing well Discussed with daughter at length about her prognosis and treatment No nausea vomiting since morning Coronavirus PCR came positive 11/13/2020 Patient coded last night and was intubated ROSC Patient on vent [place] consult and ID consult Objective - Constitutional Vitals: Vital Signs - 12hr 11/12/20 11/12/20 11/12/20 19:40 19:50 20:00 Temperature Pulse Rate Respiratory 41 H 29 H 43 H Rate Blood Pressure 116/71 116/71 106/76 Blood Pressure [Right] O2 Sat by Pulse 87 89 87 Oximetry 11/12/20 11/12/20 11/12/20 20:16 20:30 20:46 Temperature Pulse Rate 128 H Respiratory 45 H 46 H 51 H Rate Blood Pressure 106/76 94/61 94/61 Blood Pressure [Right] O2 Sat by Pulse 81 L 92 Oximetry 11/12/20 11/12/20 11/12/20 21:00 21:16 21:30 Temperature Pulse Rate 129 H 123 H 117 H Respiratory 43 H 45 H 37 H Rate Blood Pressure 86/68 86/68 96/66 Blood Pressure [Right] O2 Sat by Pulse 94 95 95 Oximetry 11/12/20 11/12/20 11/12/20 21:46 22:00 22:16 Temperature Pulse Rate 129 H 127 H 128 H Respiratory 48 H 41 H 42 H Rate Blood Pressure 96/66 97/58 97/58 Blood Pressure [Right] O2 Sat by Pulse 94 93 94 Oximetry 11/12/20 11/12/20 11/12/20 22:30 22:44 22:46 Temperature Pulse Rate 127 H 128 H 128 H Respiratory 43 H 38 H 41 H Rate Blood Pressure 91/58 91/58 91/58 Blood Pressure [Right] O2 Sat by Pulse 94 94 95 Oximetry 11/12/20 11/12/20 11/12/20 23:00 23:16 23:30 Temperature Pulse Rate 128 H 127 H 126 H Respiratory 46 H 41 H 51 H Rate Blood Pressure 82/53 82/53 61/41 Blood Pressure [Right] O2 Sat by Pulse 95 95 95 Oximetry 11/12/20 11/13/20 11/13/20 23:46 00:00 00:15 Temperature Pulse Rate 126 H 122 H 116 H Respiratory 50 H 42 H 46 H Rate Blood Pressure 61/41 77/36 88/55 Blood Pressure [Right] O2 Sat by Pulse 95 96 92 Oximetry 11/13/20 11/13/20 11/13/20 00:32 00:41 00:46 Temperature Pulse Rate 114 H 118 H Respiratory 52 H 53 H Rate Blood Pressure 81/54 78/52 Blood Pressure [Right] O2 Sat by Pulse 92 94 94 Oximetry 11/13/20 11/13/20 11/13/20 00:59 01:01 01:15 Temperature 98.7 F Pulse Rate 114 H 114 H 115 H Respiratory 47 H 52 H 44 H Rate Blood Pressure 88/55 88/55 Blood Pressure 88/55 [Right] O2 Sat by Pulse 94 93 92 Oximetry 08/0411/13/20 11/13/20 01:31 01:46 02:00 Temperature Pulse Rate 117 H 122 H 124 H Respiratory 50 H 46 H 46 H Rate Blood Pressure 79/50 80/49 72/45 Blood Pressure [Right] O2 Sat by Pulse 94 95 94 Oximetry 11/13/20 11/13/20 11/13/20 02:16 02:30 02:46 Temperature Pulse Rate 121 H 122 H 117 H Respiratory 46 H 31 H 24 Rate Blood Pressure 68/45 50/20 108/52 Blood Pressure [Right] O2 Sat by Pulse 94 93 93 Oximetry 11/13/20 11/13/20 11/13/20 03:00 03:16 03:30 Temperature Pulse Rate 115 H Respiratory 48 H 46 H 42 H Rate Blood Pressure 108/52 108/52 108/52 Blood Pressure [Right] O2 Sat by Pulse 97 93 93 Oximetry 11/13/20 11/13/20 11/13/20 03:46 04:00 04:20 Temperature Pulse Rate Respiratory 41 H 36 H 18 Rate Blood Pressure 48/28 48/28 48/28 Blood Pressure [Right] O2 Sat by Pulse 95 96 Oximetry 11/13/20 11/13/20 11/13/20 04:30 04:46 05:01 Temperature Pulse Rate 109 H 110 H 106 H Respiratory 51 H 48 H 42 H Rate Blood Pressure 82/45 58/35 58/35 Blood Pressure [Right] O2 Sat by Pulse 92 85 86 Oximetry 11/13/20 11/13/20 11/13/20 05:15 05:31 05:45 Temperature Pulse Rate 101 H 168 H 131 H Respiratory 43 H 43 H 20 Rate Blood Pressure 81/39 75/48 97/57 Blood Pressure [Right] O2 Sat by Pulse 90 83 L Oximetry 11/13/20 11/13/20 11/13/20 06:00 06:01 06:15 Temperature Pulse Rate 118 H 125 H 118 H Respiratory 16 20 Rate Blood Pressure 65/37 81/38 65/37 Blood Pressure [Right] O2 Sat by Pulse 96 Oximetry 11/13/20 06:31 Temperature Pulse Rate 114 H Respiratory 20 Rate Blood Pressure 65/32 Blood Pressure [Right] O2 Sat by Pulse Oximetry General appearance: Present: mild distress, well-nourished - EENT Eyes: PERRL, EOM intact ENT: hearing intact, clear oral mucosa Ears: bilateral: normal - Neck Neck: supple, normal ROM - Respiratory Respiratory effort: normal Respiratory: bilateral: CTA - Breasts Breasts: normal - Cardiovascular Heart rate: 78 Rhythm: regular Heart Sounds: Present: S1 & S2. Absent: gallop, rub Extremities: pulses intact, No edema, normal color, Full ROM - Gastrointestinal General gastrointestinal: Present: soft, non-tender, non-distended, normal bowel sounds - Genitourinary Female genitourinary: normal - Integumentary Integumentary: clear, warm, dry - Musculoskeletal Musculoskeletal: generalized weakness - Neurologic Neurologic: moves all extremities, other (Sedated) - Psychiatric Psychiatric: other (Sedated) - Labs CBC & Chem 7: 11/13/20 05:23 11/13/20 04:00 Labs: Abnormal lab results 11/11/20 11/12/20 11/13/20 Range/Units Unknown 23:58 01:36 WBC (4.5-11.0) K/mm3 Hct (30.3-42.9) % Lymph % (Auto) (13.4-35.0) % [place] % (Auto) (0.0-7.3) % Lymph # (Auto) (1.2-5.4) K/mm3 [place] # (Auto) (0.0-0.8) K/mm3 Seg Neutrophils % (40.0-70.0) % Seg Neutrophils # (1.8-7.7) K/mm3 ABG Sodium 147.3 H (136.0-145.0) mmol/L ABG Potassium 3.2 L (3.40-4.50) mmol/L ABG Chloride 109.0 H (98-107) mmol/L ABG Glucose 118 H (65-95) mg/dL Carboxyhemoglobin 0.3 L (0.5-1.5) Potassium (3.6-5.0) mmol/L BUN (7-17) mg/dL Creatinine (0.6-1.2) mg/dL Glucose (65-100) mg/dL POC Glucose 181 H (70-105) mg/dL Calcium (8.4-10.2) mg/dL AST (5-40) units/L ALT (7-56) units/L Total Protein (6.3-8.2) g/dL Albumin (3.9-5) g/dL Arterial Blood Glucose 118 H (65-95) mg/dL Coronavirus (PCR) Positive A (Negative) 11/13/20 11/13/20 Range/Units 04:00 05:23 WBC 15.9 H (4.5-11.0) K/mm3 Hct 44.4 H (30.3-42.9) % Lymph % (Auto) 5.7 L (13.4-35.0) % [place] % (Auto) 9.0 H (0.0-7.3) % Lymph # (Auto) 0.9 L (1.2-5.4) K/mm3 [place] # (Auto) 1.4 H (0.0-0.8) K/mm3 Seg Neutrophils % 85.3 H (40.0-70.0) % Seg Neutrophils # 13.6 H (1.8-7.7) K/mm3 ABG Sodium (136.0-145.0) mmol/L ABG Potassium (3.40-4.50) mmol/L ABG Chloride (98-107) mmol/L ABG Glucose (65-95) mg/dL Carboxyhemoglobin (0.5-1.5) Potassium 3.1 L (3.6-5.0) mmol/L BUN 64 H (7-17) mg/dL Creatinine 2.2 H D (0.6-1.2) mg/dL Glucose 105 H (65-100) mg/dL POC Glucose (70-105) mg/dL Calcium 8.3 L D (8.4-10.2) mg/dL AST 366 H (5-40) units/L ALT 316 H (7-56) units/L Total Protein 5.4 L D (6.3-8.2) g/dL Albumin 2.5 L (3.9-5) g/dL Arterial Blood Glucose (65-95) mg/dL Coronavirus (PCR) (Negative) HEART Score - HEART Score Age: > 65 Risk factors: 1-2 risk factors Troponin: Troponin T < 0.010 ng/mL (0.00-0.029) 11/11/20 13:39 - Critical Actions Critical Actions: 0-3 pts:0.9-1.7%risk of adverse cardiac event.Candidate for discharge
[2020-11-13] MEDS ORDERED: ALBUTEROL 2.5 MG/3 ML NEBU IH PRN (07:40)
[2020-11-13] MEDS ORDERED: methylPREDNISolone Sod Succinate 125 MG/2 ML INJ IV SCH (08:00)
[2020-11-13] MEDS ORDERED: VANCOMYCIN PHARMACY TO DOSE IV SCH ×2 (08:00→14:00)
[2020-11-13] MEDS ORDERED: VANCOMYCIN 1,500 MG in SODIUM CHLORIDE 0.9% 500 ML 500 ML IV ONE (08:15)
[2020-11-13] MEDS ORDERED: POTASSIUM CHLORIDE 20 MEQ 20 MEQ/100 ML BAG IV ONE (09:00)
[2020-11-13] MEDS: IPRATROPIUM/ALBUTEROL SULFATE 3 ML AMPUL.NEB IH SCH ×4 (09:20→21:59)
[2020-11-13] MEDS ORDERED: FAMOTIDINE 20 MG/2 ML INJ IV SCH (10:00)
[2020-11-13 10:35] LABS: INR 1.23 (0.87-1.13)
[2020-11-13 10:36] LABS: Partial Thromboplastin Time 24.2 Sec. (24.2-36.6)
[2020-11-13 10:38] LABS: C-Reactive Protein 5.5 mg/dL (0.00-1.30)
--- NOTE | 2020-11-13 10:47 | Consultation ---
History of Present Illness - Reason for Consult Consult date: 11/13/20 - History of Present Illness NEW TO OUR SERVICE COVID POSITIVE 85-year-old female with obesity, chronic low back pain, muscle spasms and depression presents with nausea vomiting and decreased p.o. intake for 1 we ek. Patient also complains of mild diarrhea. No abdominal pain. No fever or dysuria. She is bedridden and nonambulatory. Patient is oriented to self and knows that she is in the hospital. Patient says the year is 2080. Oxygen saturation is 99 to 90% on room air also complains of cough and shortness of breath. Denies any home oxygen. As per daughter patient has pain having nausea and vomiting for past 3 days. EMS was called 1 day to assess and they gave IV fluids but did not transport the patient. Today because of the persistent vomiting and apparent small amount of blood in vomit patient was transferred to [facility] for further evaluation and treatment. As mentioned patient is slightly hypoxic at 88 to 90% on room air. Continues to vomit. 85-yearqold female with a past medical history of chronic lower back pain, chronic UTI, and depression with previous cholecystectomy, bladder surgery, kidney surgery presents to the hospital complaints of nausea and vomiting with decreased p.o. intake x1 week. Patient also complains of mild diarrhea. She denies abdominal pain, fever, dysuria. She is chronically nonambulatory. She is currently oriented to self and knows that she is currently [place] but states the year is 2080. Complains of cough without shortness of breath. Denies home oxygen use. Daughter's phone number [phone]. History per chart review--pt is intubated. Seen in ER obese CTAP - 7mm left distal stone with hydro, small rt renal stones (no hydro) A/P Left stone & hydro + covid positive with respiratory failure (intubated) may cysto stent vs left nephrostomy recommend consult IR (DRS. MALINDA PELAYO) for eval Medications and Allergies Allergies Allergy/AdvReac Type Severity Reaction Status Date / Time morphine AdvReac Nausea Verified 05/26/13 19:22 Home Medications Medication Instructions Recorded Confirmed Last Taken Type Acetaminophen [Tylenol] 325 mg PO DAILY #10 tablet 05/26/13 10/17/14 10/16/14 Rx Baclofen [Lioresal] 10 mg PO TID PRN 05/26/13 10/17/14 10/16/14 History Diazepam [Valium] 10 mg PO BID 05/26/13 10/17/14 10/16/14 History PARoxetine [Paxil] 10 mg PO DAILY 05/26/13 10/17/14 10/16/14 19:00 History Quetiapine Fumarate [SEROquel XR] 200 mg PO DAILY 05/26/13 10/17/14 10/16/14 History rOPINIRole [Requip] 1 mg PO QHS 05/26/13 10/17/14 10/16/14 19:00 History QUEtiapine [SEROquel] 200 mg PO QHS 05/28/13 10/17/14 10/16/14 19:00 History Famotidine [Pepcid] 10 mg PO BID #60 tablet 06/02/13 10/17/14 10/16/14 Rx levoFLOXacin [Levaquin] 750 mg PO QDAY #7 tablet 06/02/13 10/17/14 10/16/14 Rx metroNIDAZOLE [Flagyl] 500 mg PO Q8HR #30 tablet 06/02/13 10/17/14 10/16/14 Rx Hydromorphone HCl [Dilaudid] 4 mg PO 10/17/14 10/17/14 10/16/14 History Oxycodone HCl/Acetaminophen 1 each PO Q6HR PRN 10/17/14 10/17/14 10/16/14 History [Percocet 10-325 mg] Oxycodone HCl/Acetaminophen 1 each PO Q6HR PRN #30 tablet 10/18/14 Unknown Rx [Percocet 10-325 mg] Active Meds: Active Medications Acetaminophen (Acetaminophen 325 Mg Tab) 650 mg PO Q4H PRN PRN Reason: Pain MILD(1-3)/Fever >100.5/ERAZO Albuterol (Albuterol 2.5 Mg/3 Ml Nebu) 2.5 mg IH Q4HRT PRN PRN Reason: Shortness Of Breath Albuterol/Ipratropium (Ipratropium/Albuterol Sulfate 3 Ml Ampul.Neb) 1 ampul IH QIDRT CARLOS Last Admin: 11/13/20 09:20 Dose: Not Given Documented by: Baclofen (Baclofen 10 Mg Tab) 10 mg PO TID PRN PRN Reason: MUSCLE SPASMS & PAIN Dexamethasone (Dexamethasone 4 Mg/Ml Vial) 6 mg IV Q24HR CARLOS Stop: 11/22/20 10:01 Famotidine (Famotidine 20 Mg/2 Ml Inj) 10 mg IV BID CARLOS Fentanyl (Fentanyl 100 Mcg/2 Ml Inj) 50 mcg IV Q10MIN PRN PRN Reason: ANALGESIA Heparin Sodium (Porcine) (Heparin 10,000 Units/10 Ml Vial) 3,000 unit 40 unit/kg (3000 unit) IV Q6H PRN PRN Reason: Anti-Xa Assay < 0.1 units/ml Hydromorphone HCl (Hydromorphone 1 Mg/1 Ml Inj) 0.5 mg IV Q3H PRN PRN Reason: Pain , Severe (7-10) Hydrophilic Ointment (Lip Therapy Vaseline) 1 applic TP Q2HR PRN PRN Reason: Dry Lips Sodium Chloride (Nacl 0.9% 1000 Ml) 1,000 mls @ 75 mls/hr IV DIRECT CARLOS Heparin Sodium/Sodium Chloride (Heparin/ 0.45% Nacl-25,000 Unit/500 Ml) 25,000 unit in 500 mls @ 23 mls/hr IV TITR CARLOS; Protocol Fentanyl Citrate (Fentanyl Drip Premix) 2,000 mcg in 100 mls @ 3.81 mls/hr IV TITR CARLOS; Protocol Last Admin: 11/13/20 06:35 Dose: 1 mcg/kg/hr, 3.81 mls/hr Documented by: Norepinephrine (Levophed Drip 4 Mg/Ns 250 Ml) 4 mg in 250 mls @ 7.5 mls/hr IV TITR CARLOS; Protocol Last Admin: 11/13/20 06:46 Dose: 2 mcg/min, 7.5 mls/hr Documented by: Metoclopramide HCl (Metoclopramide 10 Mg/2 Ml Inj) 10 mg IV Q6H PRN PRN Reason: Nausea And Vomiting Multi-Ingred Cream/Lotion/Oil/Oint (Mineral Oil/Petrolatum, White Ophth Oint 3.5 Gm) 1 applic OU Q4HR PRN PRN Reason: Dry Eye(s) Ondansetron HCl (Ondansetron 4 Mg/2 Ml Inj) 4 mg IV Q3H PRN PRN Reason: Nausea And Vomiting Oxycodone/Acetaminophen (Oxycodone /Acetaminophen 5-325mg Tab) 1 tab PO Q6H PRN PRN Reason: Pain, Moderate (4-6) Paroxetine HCl (Paroxetine 10 Mg Tab) 10 mg PO DAILY [facility] Last Admin: 11/12/20 12:50 Dose: 10 mg Documented by: Quetiapine Fumarate (Quetiapine 200 Mg Tab) 200 mg PO QHS [facility] Last Admin: 11/13/20 04:56 Dose: Not Given Documented by: Quetiapine Fumarate (Quetiapine 200 Mg Tab) 200 mg PO DAILY [facility] Last Admin: 11/12/20 11:42 Dose: 200 mg Documented by: Ropinirole HCl (Ropinirole 1 Mg Tab) 1 mg PO QHS [facility] Last Admin: 11/13/20 04:56 Dose: Not Given Documented by: Sodium Chloride (Sodium Chloride 0.9% 10 Ml Flush Syringe) 10 ml IV BID [facility] Last Admin: 11/12/20 22:00 Dose: 10 ml Documented by: Sodium Chloride (Sodium Chloride 0.9% 10 Ml Flush Syringe) 10 ml IV PRN PRN PRN Reason: LINE FLUSH Exam - Constitutional Vitals: Temp Pulse Resp BP Pulse Ox 98.7 F 130 H 20 97/73 96 11/13/20 00:59 11/13/20 09:01 11/13/20 09:01 11/13/20 09:01 11/13/20 09:01 Results - Labs CBC & Chem 7: 11/13/20 05:23 11/13/20 09:51 Labs: Abnormal lab results 11/11/20 11/12/20 11/13/20 Range/Units Unknown 23:58 01:36 WBC (4.5-11.0) K/mm3 Hct (30.3-42.9) % Lymph % (Auto) (13.4-35.0) % [place] % (Auto) (0.0-7.3) % Lymph # (Auto) (1.2-5.4) K/mm3 [place] # (Auto) (0.0-0.8) K/mm3 Seg Neutrophils % (40.0-70.0) % Seg Neutrophils # (1.8-7.7) K/mm3 PT (12.2-14.9) Sec. INR (0.87-1.13) ABG pH (7.320-7.450) POC ABG pO2 (83-108) mmHg ABG Oxyhemoglobin (94-98) ABG Sodium 147.3 H (136.0-145.0) mmol/L ABG Potassium 3.2 L (3.40-4.50) mmol/L ABG Chloride 109.0 H (98-107) mmol/L ABG Glucose 118 H (65-95) mg/dL Carboxyhemoglobin 0.3 L (0.5-1.5) Potassium (3.6-5.0) mmol/L BUN (7-17) mg/dL Creatinine (0.6-1.2) mg/dL Glucose (65-100) mg/dL POC Glucose 181 H (70-105) mg/dL Calcium (8.4-10.2) mg/dL AST (5-40) units/L ALT (7-56) units/L C-Reactive Protein (0.00-1.30) mg/dL Total Protein (6.3-8.2) g/dL Albumin (3.9-5) g/dL Arterial Blood Glucose 118 H (65-95) mg/dL Coronavirus (PCR) Positive A (Negative) 11/13/20 11/13/20 11/13/20 Range/Units 04:00 05:23 08:22 WBC 15.9 H (4.5-11.0) K/mm3 Hct 44.4 H (30.3-42.9) % Lymph % (Auto) 5.7 L (13.4-35.0) % [place] % (Auto) 9.0 H (0.0-7.3) % Lymph # (Auto) 0.9 L (1.2-5.4) K/mm3 [place] # (Auto) 1.4 H (0.0-0.8) K/mm3 Seg Neutrophils % 85.3 H (40.0-70.0) % Seg Neutrophils # 13.6 H (1.8-7.7) K/mm3 PT (12.2-14.9) Sec. INR (0.87-1.13) ABG pH 7.243 L (7.320-7.450) POC ABG pO2 82.0 L (83-108) mmHg ABG Oxyhemoglobin 93.5 L (94-98) ABG Sodium 146.6 H (136.0-145.0) mmol/L ABG Potassium 2.8 L (3.40-4.50) mmol/L ABG Chloride 114.0 H (98-107) mmol/L ABG Glucose 113 H (65-95) mg/dL Carboxyhemoglobin 0.4 L (0.5-1.5) Potassium 3.1 L (3.6-5.0) mmol/L BUN 64 H (7-17) mg/dL Creatinine 2.2 H D (0.6-1.2) mg/dL Glucose 105 H (65-100) mg/dL POC Glucose (70-105) mg/dL Calcium 8.3 L D (8.4-10.2) mg/dL AST 366 H (5-40) units/L ALT 316 H (7-56) units/L C-Reactive Protein (0.00-1.30) mg/dL Total Protein 5.4 L D (6.3-8.2) g/dL Albumin 2.5 L (3.9-5) g/dL Arterial Blood Glucose 113 H (65-95) mg/dL Coronavirus (PCR) (Negative) 11/13/20 11/13/20 Range/Units 09:51 09:51 WBC (4.5-11.0) K/mm3 Hct (30.3-42.9) % Lymph % (Auto) (13.4-35.0) % [place] % (Auto) (0.0-7.3) % Lymph # (Auto) (1.2-5.4) K/mm3 [place] # (Auto) (0.0-0.8) K/mm3 Seg Neutrophils % (40.0-70.0) % Seg Neutrophils # (1.8-7.7) K/mm3 PT 16.0 H (12.2-14.9) Sec. INR 1.23 H (0.87-1.13) ABG pH (7.320-7.450) POC ABG pO2 (83-108) mmHg ABG Oxyhemoglobin (94-98) ABG Sodium (136.0-145.0) mmol/L ABG Potassium (3.40-4.50) mmol/L ABG Chloride (98-107) mmol/L ABG Glucose (65-95) mg/dL Carboxyhemoglobin (0.5-1.5) Potassium (3.6-5.0) mmol/L BUN (7-17) mg/dL Creatinine (0.6-1.2) mg/dL Glucose 104 H (65-100) mg/dL POC Glucose (70-105) mg/dL Calcium (8.4-10.2) mg/dL AST (5-40) units/L ALT (7-56) units/L C-Reactive Protein 5.50 H (0.00-1.30) mg/dL Total Protein (6.3-8.2) g/dL Albumin (3.9-5) g/dL Arterial Blood Glucose (65-95) mg/dL Coronavirus (PCR) (Negative)
--- NOTE | 2020-11-13 11:37 | Event Note ---
Date: 11/13/20 85-year-old female with presentation of Covid pneumonia with central line placement for Covid pneumonia and hemodynamic instability which was malplaced has a left carotid intra-arterial line. Right femoral line was also placed. Patient is hemodynamically unstable and unsuitable for transfer to tertiary care facility. The ER physician believes the patient will end up being intubated in the next few hours. Intra-arterial line placement unfortunately is accessing the carotid artery at the level of the clavicle and is unable to be addressed through an open approach. In addition, patient is hemodynamically unstable due to underlying COVID pneumonia. Review of the CT scan demonstrated small amount of thrombus associated with the entry site in the left carotid. No significant hematoma. Recommend anticoagulation with heparin for as long as the patient has the line in place to prevent further thrombus and to treat the underlying thrombus. If patient clinically improves, then we can consider endovascular stent graft placement across the arterial line access site to cover both the thrombus and the arterial puncture site. Patient will probably need a CT neck with contrast for further evaluation for planning prior to removal. Do not remove line and do not use line. This is a late entry and these findings were discussed with Dr. Diamond garza at approximately 5 AM.
[2020-11-13] MEDS: PARoxetine 10 MG TAB PO SCH (11:44)
[2020-11-13] MEDS: QUEtiapine 200 MG TAB PO SCH (11:44)
[2020-11-13] MEDS: dexAMETHasone 4 MG/ML VIAL IV SCH (11:47)
[2020-11-13] MEDS: HEPARIN/ 0.45% NACL DRIP 25,000 UNIT/500 ML BAG IV SCH (13:08)
--- NOTE | 2020-11-13 13:46 | Event Note ---
Date: 11/13/20 Covid positive very complicated clinical course large left ureteral stone with hydro & high white count spoke with daughter ---Kirstin Hernadez---[phone] will try to set up cysto stent soon may need perc
[2020-11-13] MEDS ORDERED: CEFEPIME/NS 2 GM/100 ML 2 GM/100 ML BAG IV SCH ×2 (14:00→15:00)
--- NOTE | 2020-11-13 14:17 | Consultation ---
History of Present Illness - Reason for Consult Consult date: 11/13/20 Left Carotid Artery Central Line Placement Requesting physician: ARNEL CHAVES - History of Present Illness The patient is an 85-year-old female who presented to the emergency department with mental status changes and vomiting. She was eventually diagnosed with COVID-19 after an extensive work-up. She developed hypotension and required fluid boluses. It was determined that she will require central venous access to maintain a normal systolic blood pressure and there was an attempt to place a central venous line in her left internal jugular vein. After the line was placed imaging determined that the line was in her left common carotid artery and there was thrombus within the common carotid artery and on the catheter. She has since required intubation and pressor support. She is currently sedated and in the intensive care unit. Past History Past Medical History: other (Depression, chronic back pain) Past Surgical History: tonsillectomy, Other (Back surgery, hemorrhoidectomy,) Social history: smoking Medications and Allergies Allergies Allergy/AdvReac Type Severity Reaction Status Date / Time morphine AdvReac Nausea Verified 05/26/13 19:22 Home Medications Medication Instructions Recorded Confirmed Last Taken Type Acetaminophen [Tylenol] 325 mg PO DAILY #10 tablet 05/26/13 10/17/14 10/16/14 Rx Baclofen [Lioresal] 10 mg PO TID PRN 05/26/13 10/17/14 10/16/14 History Diazepam [Valium] 10 mg PO BID 05/26/13 10/17/14 10/16/14 History PARoxetine [Paxil] 10 mg PO DAILY 05/26/13 10/17/14 10/16/14 19:00 History Quetiapine Fumarate [SEROquel XR] 200 mg PO DAILY 05/26/13 10/17/14 10/16/14 His tory rOPINIRole [Requip] 1 mg PO QHS 05/26/13 10/17/14 10/16/14 19:00 History QUEtiapine [SEROquel] 200 mg PO QHS 05/28/13 10/17/14 10/16/14 19:00 History Famotidine [Pepcid] 10 mg PO BID #60 tablet 06/02/13 10/17/14 10/16/14 Rx levoFLOXacin [Levaquin] 750 mg PO QDAY #7 tablet 06/02/13 10/17/14 10/16/14 Rx metroNIDAZOLE [Flagyl] 500 mg PO Q8HR #30 tablet 06/02/13 10/17/14 10/16/14 Rx Hydromorphone HCl [Dilaudid] 4 mg PO 10/17/14 10/17/14 10/16/14 History Oxycodone HCl/Acetaminophen 1 each PO Q6HR PRN 10/17/14 10/17/14 10/16/14 History [Percocet 10-325 mg] Oxycodone HCl/Acetaminophen 1 each PO Q6HR PRN #30 tablet 10/18/14 Unknown Rx [Percocet 10-325 mg] Active Meds: Active Medications Acetaminophen (Acetaminophen 325 Mg Tab) 650 mg PO Q4H PRN PRN Reason: Pain MILD(1-3)/Fever >100.5/ERAZO Albuterol (Albuterol 2.5 Mg/3 Ml Nebu) 2.5 mg IH Q4HRT PRN PRN Reason: Shortness Of Breath Albuterol/Ipratropium (Ipratropium/Albuterol Sulfate 3 Ml Ampul.Neb) 1 ampul IH QIDRT [facility] Last Admin: 11/13/20 11:45 Dose: 1 ampul Documented by: Baclofen (Baclofen 10 Mg Tab) 10 mg PO TID PRN PRN Reason: MUSCLE SPASMS & PAIN Dexamethasone (Dexamethasone 4 Mg/Ml Vial) 6 mg IV Q24HR [facility] Stop: 11/22/20 10:01 Last Admin: 11/13/20 11:47 Dose: 6 mg Documented by: Fentanyl (Fentanyl 100 Mcg/2 Ml Inj) 50 mcg IV Q10MIN PRN PRN Reason: ANALGESIA Heparin Sodium (Porcine) (Heparin 10,000 Units/10 Ml Vial) 3,000 unit 40 unit/kg (3000 unit) IV Q6H PRN PRN Reason: Anti-Xa Assay < 0.1 units/ml Hydromorphone HCl (Hydromorphone 1 Mg/1 Ml Inj) 0.5 mg IV Q3H PRN PRN Reason: Pain , Severe (7-10) Hydrophilic Ointment (Lip Therapy Vaseline) 1 applic TP Q2HR PRN PRN Reason: Dry Lips Sodium Chloride (Nacl 0.9% 1000 Ml) 1,000 mls @ 75 mls/hr IV DIRECT [facility] Heparin Sodium/Sodium Chloride (Heparin/ 0.45% Nacl-25,000 Unit/500 Ml) 25,000 unit in 500 mls @ 23 mls/hr IV TITR [facility]; Protocol Last Admin: 11/13/20 13:08 Dose: 1,150 units/hr, 23 mls/hr Documented by: Fentanyl Citrate (Fentanyl Drip Premix) 2,000 mcg in 100 mls @ 3.81 mls/hr IV TITR [facility]; Protocol Last Admin: 11/13/20 06:35 Dose: 1 mcg/kg/hr, 3.81 mls/hr Documented by: Norepinephrine (Levophed Drip 4 Mg/Ns 250 Ml) 4 mg in 250 mls @ 7.5 mls/hr IV TITR [facility]; Protocol Last Admin: 11/13/20 13:15 Dose: 14 mcg/min, 52.5 mls/hr Documented by: Cefepime HCl (Cefepime/Ns 2 Gm/100 Ml) 2 gm in 100 mls @ 200 mls/hr IV Q12H [facility]; Protocol Metoclopramide HCl (Metoclopramide 10 Mg/2 Ml Inj) 10 mg IV Q6H PRN PRN Reason: Nausea And Vomiting Multi-Ingred Cream/Lotion/Oil/Oint (Mineral Oil/Petrolatum, White Ophth Oint 3.5 Gm) 1 applic OU Q4HR PRN PRN Reason: Dry Eye(s) Ondansetron HCl (Ondansetron 4 Mg/2 Ml Inj) 4 mg IV Q3H PRN PRN Reason: Nausea And Vomiting Oxycodone/Acetaminophen (Oxycodone /Acetaminophen 5-325mg Tab) 1 tab PO Q6H PRN PRN Reason: Pain, Moderate (4-6) Pantoprazole Sodium (Pantoprazole 40 Mg Inj) 40 mg IV BID [facility] Paroxetine HCl (Paroxetine 10 Mg Tab) 10 mg PO DAILY [facility] Last Admin: 11/13/20 11:44 Dose: Not Given Documented by: Ropinirole HCl (Ropinirole 1 Mg Tab) 1 mg PO QHS [facility] Last Admin: 11/13/20 04:56 Dose: Not Given Documented by: Sodium Chloride (Sodium Chloride 0.9% 10 Ml Flush Syringe) 10 ml IV BID [facility] Last Admin: 11/13/20 11:44 Dose: 10 ml Documented by: Sodium Chloride (Sodium Chloride 0.9% 10 Ml Flush Syringe) 10 ml IV PRN PRN PRN Reason: LINE FLUSH Review of Systems ROS unobtainable: due to endotracheal tube Exam - Constitutional Vitals: Temp Pulse Resp BP Pulse Ox 98.7 F 115 H 20 134/63 96 11/13/20 00:59 11/13/20 13:41 11/13/20 11:45 11/13/20 13:41 11/13/20 13:41 General appearance: Present: other (Intubated and sedated) - Respiratory Respiratory effort: other (Ventilator support) - Cardiovascular Rhythm: regular - Extremities Extremities: no ischemia - Abdominal General gastrointestinal: Present: non-distended, other (NG tube with bilious drainage and no evidence of GI bleed or coffee-ground emesis) - Rectal Rectal Exam: deferred Results - Labs CBC & Chem 7: 11/13/20 05:23 11/13/20 09:51 Labs: Abnormal lab results 11/11/20 11/12/20 11/13/20 Range/Units Unknown 23:58 01:36 WBC (4.5-11.0) K/mm3 Hct (30.3-42.9) % Lymph % (Auto) (13.4-35.0) % [place] % (Auto) (0.0-7.3) % Lymph # (Auto) (1.2-5.4) K/mm3 [place] # (Auto) (0.0-0.8) K/mm3 Seg Neutrophils % (40.0-70.0) % Seg Neutrophils # (1.8-7.7) K/mm3 PT (12.2-14.9) Sec. INR (0.87-1.13) D-Dimer (0-234) ng/mlDDU ABG pH (7.320-7.450) POC ABG pO2 (83-108) mmHg ABG Oxyhemoglobin (94-98) ABG Sodium 147.3 H (136.0-145.0) mmol/L ABG Potassium 3.2 L (3.40-4.50) mmol/L ABG Chloride 109.0 H (98-107) mmol/L ABG Glucose 118 H (65-95) mg/dL Carboxyhemoglobin 0.3 L (0.5-1.5) Potassium (3.6-5.0) mmol/L BUN (7-17) mg/dL Creatinine (0.6-1.2) mg/dL Glucose (65-100) mg/dL POC Glucose 181 H (70-105) mg/dL Calcium (8.4-10.2) mg/dL Ferritin (10.0-200.0) ng/mL AST (5-40) units/L ALT (7-56) units/L Lactate Dehydrogenase (91-180) units/L C-Reactive Protein (0.00-1.30) mg/dL Total Protein (6.3-8.2) g/dL Albumin (3.9-5) g/dL Arterial Blood Glucose 118 H (65-95) mg/dL Coronavirus (PCR) Positive A (Negative) 11/13/20 11/13/20 11/13/20 Range/Units 04:00 05:23 08:22 WBC 15.9 H (4.5-11.0) K/mm3 Hct 44.4 H (30.3-42.9) % Lymph % (Auto) 5.7 L (13.4-35.0) % [place] % (Auto) 9.0 H (0.0-7.3) % Lymph # (Auto) 0.9 L (1.2-5.4) K/mm3 [place] # (Auto) 1.4 H (0.0-0.8) K/mm3 Seg Neutrophils % 85.3 H (40.0-70.0) % Seg Neutrophils # 13.6 H (1.8-7.7) K/mm3 PT (12.2-14.9) Sec. INR (0.87-1.13) D-Dimer (0-234) ng/mlDDU ABG pH 7.243 L (7.320-7.450) POC ABG pO2 82.0 L (83-108) mmHg ABG Oxyhemoglobin 93.5 L (94-98) ABG Sodium 146.6 H (136.0-145.0) mmol/L ABG Potassium 2.8 L (3.40-4.50) mmol/L ABG Chloride 114.0 H (98-107) mmol/L ABG Glucose 113 H (65-95) mg/dL Carboxyhemoglobin 0.4 L (0.5-1.5) Potassium 3.1 L (3.6-5.0) mmol/L BUN 64 H (7-17) mg/dL Creatinine 2.2 H D (0.6-1.2) mg/dL Glucose 105 H (65-100) mg/dL POC Glucose (70-105) mg/dL Calcium 8.3 L D (8.4-10.2) mg/dL Ferritin (10.0-200.0) ng/mL AST 366 H (5-40) units/L ALT 316 H (7-56) units/L Lactate Dehydrogenase (91-180) units/L C-Reactive Protein (0.00-1.30) mg/dL Total Protein 5.4 L D (6.3-8.2) g/dL Albumin 2.5 L (3.9-5) g/dL Arterial Blood Glucose 113 H (65-95) mg/dL Coronavirus (PCR) (Negative) 11/13/20 11/13/20 11/13/20 Range/Units 09:51 09:51 09:51 WBC (4.5-11.0) K/mm3 Hct (30.3-42.9) % Lymph % (Auto) (13.4-35.0) % [place] % (Auto) (0.0-7.3) % Lymph # (Auto) (1.2-5.4) K/mm3 [place] # (Auto) (0.0-0.8) K/mm3 Seg Neutrophils % (40.0-70.0) % Seg Neutrophils # (1.8-7.7) K/mm3 PT 16.0 H (12.2-14.9) Sec. INR 1.23 H (0.87-1.13) D-Dimer 5682.19 H (0-234) ng/mlDDU ABG pH (7.320-7.450) POC ABG pO2 (83-108) mmHg ABG Oxyhemoglobin (94-98) ABG Sodium (136.0-145.0) mmol/L ABG Potassium (3.40-4.50) mmol/L ABG Chloride (98-107) mmol/L ABG Glucose (65-95) mg/dL Carboxyhemoglobin (0.5-1.5) Potassium (3.6-5.0) mmol/L BUN (7-17) mg/dL Creatinine (0.6-1.2) mg/dL Glucose 104 H (65-100) mg/dL POC Glucose (70-105) mg/dL Calcium (8.4-10.2) mg/dL Ferritin (10.0-200.0) ng/mL AST (5-40) units/L ALT (7-56) units/L Lactate Dehydrogenase 1022 H (91-180) units/L C-Reactive Protein 5.50 H (0.00-1.30) mg/dL Total Protein (6.3-8.2) g/dL Albumin (3.9-5) g/dL Arterial Blood Glucose (65-95) mg/dL Coronavirus (PCR) (Negative) 11/13/20 Range/Units 09:51 WBC (4.5-11.0) K/mm3 Hct (30.3-42.9) % Lymph % (Auto) (13.4-35.0) % [place] % (Auto) (0.0-7.3) % Lymph # (Auto) (1.2-5.4) K/mm3 [place] # (Auto) (0.0-0.8) K/mm3 Seg Neutrophils % (40.0-70.0) % Seg Neutrophils # (1.8-7.7) K/mm3 PT (12.2-14.9) Sec. INR (0.87-1.13) D-Dimer (0-234) ng/mlDDU ABG pH (7.320-7.450) POC ABG pO2 (83-108) mmHg ABG Oxyhemoglobin (94-98) ABG Sodium (136.0-145.0) mmol/L ABG Potassium (3.40-4.50) mmol/L ABG Chloride (98-107) mmol/L ABG Glucose (65-95) mg/dL Carboxyhemoglobin (0.5-1.5) Potassium (3.6-5.0) mmol/L BUN (7-17) mg/dL Creatinine (0.6-1.2) mg/dL Glucose (65-100) mg/dL POC Glucose (70-105) mg/dL Calcium (8.4-10.2) mg/dL Ferritin 1003.0 H (10.0-200.0) ng/mL AST (5-40) units/L ALT (7-56) units/L Lactate Dehydrogenase (91-180) units/L C-Reactive Protein (0.00-1.30) mg/dL Total Protein (6.3-8.2) g/dL Albumin (3.9-5) g/dL Arterial Blood Glucose (65-95) mg/dL Coronavirus (PCR) (Negative) Assessment and Plan The patient is an 85-year-old female with a history of COVID-19 infection who is on 16 mcg/min of Levophed at the time of the exam. She had an inadvertent placement of a triple-lumen catheter in her left internal jugular vein. There was evidence of thrombus on the catheter on a CT a of her chest. We instructed the emergency department to leave the catheter in place and start the patient on a heparin drip. On my exam in the intensive care unit the patient was not currently on a heparin drip as the nurse reported the emergency department did not start a heparin drip secondary to concern of a GI bleed. The patient's nasogastric tube drainage is consistent with bilious drainage. There is no evidence of GI bleeding. At this point the nurse is starting the heparin drip and I will DC her Pepcid and start her on Protonix 40 mg IV twice daily. The line will stay in place until the patient is stabilized. At that time if the patient becomes stable the decision for management and removal of the line will likely be placement of a stent graft within the carotid artery with a filter wire to prevent distal emboli. The line will be removed while deploying the stent graft. Again this decision will be made if and when the patient becomes more stable. Until that time the patient will remain on a heparin drip to prevent distal emboli into the MCA territory.
--- NOTE | 2020-11-13 15:17 | Consultation ---
History of Present Illness - Reason for Consult Consult date: 11/13/20 - History of Present Illness 85-year-old female past medical history obesity, chronic low back pain, depression presented to hospital having of a 1 week history of nausea vomiting. This is associated with decreased p.o. intake at baseline she is bedridden and nonambulatory. She also complained of a mild diarrhea. She had decreased saturations on admission Afebrile since admission with tachycardia. White count 15.9. Covid positive. Decreased renal function. Normal procalcitonin. Elevated inflammatory markers. Imaging personally reviewed: Chest x-ray: Left lung base atelectasis. Chest CTA: No acute airspace disease CT abdomen pelvis: Obstructive calculi right renal pelvis 7 mm distal left ureteral stone Review of systems: Deferred to reduce to the risk of transmission of COVID-19 Past History Past Medical History: other (Depression, chronic back pain) Past Surgical History: tonsillectomy, Other (Back surgery, hemorrhoidectomy,) Social history: smoking Medications and Allergies Allergies Allergy/AdvReac Type Severity Reaction Status Date / Time morphine AdvReac Nausea Verified 05/26/13 19:22 Home Medications Medication Instructions Recorded Confirmed Last Taken Type Acetaminophen [Tylenol] 325 mg PO DAILY #10 tablet 05/26/13 10/17/14 10/16/14 Rx Baclofen [Lioresal] 10 mg PO TID PRN 05/26/13 10/17/14 10/16/14 History Diazepam [Valium] 10 mg PO BID 05/26/13 10/17/14 10/16/14 History PARoxetine [Paxil] 10 mg PO DAILY 05/26/13 10/17/14 10/16/14 19:00 History Quetiapine Fumarate [SEROquel XR] 200 mg PO DAILY 05/26/13 10/17/14 10/16/14 History rOPINIRole [Requip] 1 mg PO QHS 05/26/13 10/17/14 10/16/14 19:00 History QUEtiapine [SEROquel] 200 mg PO QHS 05/28/13 10/17/14 10/16/14 19:00 History Famotidine [Pepcid] 10 mg PO BID #60 tablet 06/02/13 10/17/14 10/16/14 Rx levoFLOXacin [Levaquin] 750 mg PO QDAY #7 tablet 06/02/13 10/17/14 10/16/14 Rx metroNIDAZOLE [Flagyl] 500 mg PO Q8HR #30 tablet 06/02/13 10/17/14 10/16/14 Rx Hydromorphone HCl [Dilaudid] 4 mg PO 10/17/14 10/17/14 10/16/14 History Oxycodone HCl/Acetaminophen 1 each PO Q6HR PRN 10/17/14 10/17/14 10/16/14 History [Percocet 10-325 mg] Oxycodone HCl/Acetaminophen 1 each PO Q6HR PRN #30 tablet 10/18/14 Unknown Rx [Percocet 10-325 mg] Active Meds: Active Medications Acetaminophen (Acetaminophen 325 Mg Tab) 650 mg PO Q4H PRN PRN Reason: Pain MILD(1-3)/Fever >100.5/ERAZO Albuterol (Albuterol 2.5 Mg/3 Ml Nebu) 2.5 mg IH Q4HRT PRN PRN Reason: Shortness Of Breath Albuterol/Ipratropium (Ipratropium/Albuterol Sulfate 3 Ml Ampul.Neb) 1 ampul IH QIDRT [facility] Last Admin: 11/13/20 11:45 Dose: 1 ampul Documented by: Baclofen (Baclofen 10 Mg Tab) 10 mg PO TID PRN PRN Reason: MUSCLE SPASMS & PAIN Dexamethasone (Dexamethasone 4 Mg/Ml Vial) 6 mg IV Q24HR [facility] Stop: 11/22/20 10:01 Last Admin: 11/13/20 11:47 Dose: 6 mg Documented by: Fentanyl (Fentanyl 100 Mcg/2 Ml Inj) 50 mcg IV Q10MIN PRN PRN Reason: ANALGESIA Heparin Sodium (Porcine) (Heparin 10,000 Units/10 Ml Vial) 3,000 unit 40 unit/kg (3000 unit) IV Q6H PRN PRN Reason: Anti-Xa Assay < 0.1 units/ml Hydromorphone HCl (Hydromorphone 1 Mg/1 Ml Inj) 0.5 mg IV Q3H PRN PRN Reason: Pain , Severe (7-10) Hydrophilic Ointment (Lip Therapy Vaseline) 1 applic TP Q2HR PRN PRN Reason: Dry Lips Sodium Chloride (Nacl 0.9% 1000 Ml) 1,000 mls @ 75 mls/hr IV DIRECT [facility] Heparin Sodium/Sodium Chloride (Heparin/ 0.45% Nacl-25,000 Unit/500 Ml) 25,000 unit in 500 mls @ 23 mls/hr IV TITR [facility]; Protocol Last Admin: 11/13/20 13:08 Dose: 1,150 units/hr, 23 mls/hr Documented by: Fentanyl Citrate (Fentanyl Drip Premix) 2,000 mcg in 100 mls @ 3.81 mls/hr IV TITR [facility]; Protocol Last Admin: 11/13/20 06:35 Dose: 1 mcg/kg/hr, 3.81 mls/hr Documented by: Norepinephrine (Levophed Drip 4 Mg/Ns 250 Ml) 4 mg in 250 mls @ 7.5 mls/hr IV TITR [facility]; Protocol Stop: 11/13/20 18:00 Last Admin: 11/13/20 13:15 Dose: 14 mcg/min, 52.5 mls/hr Documented by: NORepinephrine/NS 8 MG-250 ML (Norepinephrine/Ns 8 Mg-250 Ml (Double Conc)) 8 mg in 250 mls @ 3.75 mls/hr IV TITRATE [facility]; Protocol Cefepime HCl (Cefepime/Ns 2 Gm/100 Ml) 2 gm in 100 mls @ 200 mls/hr IV Q24H [facility]; Protocol Metoclopramide HCl (Metoclopramide 10 Mg/2 Ml Inj) 10 mg IV Q6H PRN PRN Reason: Nausea And Vomiting Multi-Ingred Cream/Lotion/Oil/Oint (Mineral Oil/Petrolatum, White Ophth Oint 3.5 Gm) 1 applic OU Q4HR PRN PRN Reason: Dry Eye(s) Ondansetron HCl (Ondansetron 4 Mg/2 Ml Inj) 4 mg IV Q3H PRN PRN Reason: Nausea And Vomiting Oxycodone/Acetaminophen (Oxycodone /Acetaminophen 5-325mg Tab) 1 tab PO Q6H PRN PRN Reason: Pain, Moderate (4-6) Pantoprazole Sodium (Pantoprazole 40 Mg Inj) 40 mg IV BID [facility] Paroxetine HCl (Paroxetine 10 Mg Tab) 10 mg PO DAILY [facility] Last Admin: 11/13/20 11:44 Dose: Not Given Documented by: Ropinirole HCl (Ropinirole 1 Mg Tab) 1 mg PO QHS [facility] Last Admin: 11/13/20 04:56 Dose: Not Given Documented by: Sodium Chloride (Sodium Chloride 0.9% 10 Ml Flush Syringe) 10 ml IV BID [facility] Last Admin: 11/13/20 11:44 Dose: 10 ml Documented by: Sodium Chloride (Sodium Chloride 0.9% 10 Ml Flush Syringe) 10 ml IV PRN PRN PRN Reason: LINE FLUSH Physical Examination - Physical Exam Narrative exam: Physical exam deferred to reduce risk of transmission of COVID-19. Please refer to primary team's note. - Constitutional Vitals: Vital Signs Temp Pulse Resp BP Pulse Ox 98.7 F 115 H 20 134/63 96 11/13/20 00:59 11/13/20 13:41 11/13/20 11:45 11/13/20 13:41 11/13/20 13:41 Temperature -Last 24 Hours Temperature 98.7 F Temperature 97.8 F Results - Labs CBC & Chem 7: 11/13/20 05:23 11/13/20 09:51 Labs: Abnormal lab results 11/11/20 11/12/20 11/13/20 Range/Units Unknown 23:58 01:36 WBC (4.5-11.0) K/mm3 Hct (30.3-42.9) % Lymph % (Auto) (13.4-35.0) % [place] % (Auto) (0.0-7.3) % Lymph # (Auto) (1.2-5.4) K/mm3 [place] # (Auto) (0.0-0.8) K/mm3 Seg Neutrophils % (40.0-70.0) % Seg Neutrophils # (1.8-7.7) K/mm3 PT (12.2-14.9) Sec. INR (0.87-1.13) D-Dimer (0-234) ng/mlDDU ABG pH (7.320-7.450) POC ABG pO2 (83-108) mmHg ABG Oxyhemoglobin (94-98) ABG Sodium 147.3 H (136.0-145.0) mmol/L ABG Potassium 3.2 L (3.40-4.50) mmol/L ABG Chloride 109.0 H (98-107) mmol/L ABG Glucose 118 H (65-95) mg/dL Carboxyhemoglobin 0.3 L (0.5-1.5) Potassium (3.6-5.0) mmol/L BUN (7-17) mg/dL Creatinine (0.6-1.2) mg/dL Glucose (65-100) mg/dL POC Glucose 181 H (70-105) mg/dL Calcium (8.4-10.2) mg/dL Ferritin (10.0-200.0) ng/mL AST (5-40) units/L ALT (7-56) units/L Lactate Dehydrogenase (91-180) units/L C-Reactive Protein (0.00-1.30) mg/dL Total Protein (6.3-8.2) g/dL Albumin (3.9-5) g/dL Arterial Blood Glucose 118 H (65-95) mg/dL Coronavirus (PCR) Positive A (Negative) 11/13/20 11/13/20 11/13/20 Range/Units 04:00 05:23 08:22 WBC 15.9 H (4.5-11.0) K/mm3 Hct 44.4 H (30.3-42.9) % Lymph % (Auto) 5.7 L (13.4-35.0) % [place] % (Auto) 9.0 H (0.0-7.3) % Lymph # (Auto) 0.9 L (1.2-5.4) K/mm3 [place] # (Auto) 1.4 H (0.0-0.8) K/mm3 Seg Neutrophils % 85.3 H (40.0-70.0) % Seg Neutrophils # 13.6 H (1.8-7.7) K/mm3 PT (12.2-14.9) Sec. INR (0.87-1.13) D-Dimer (0-234) ng/mlDDU ABG pH 7.243 L (7.320-7.450) POC ABG pO2 82.0 L (83-108) mmHg ABG Oxyhemoglobin 93.5 L (94-98) ABG Sodium 146.6 H (136.0-145.0) mmol/L ABG Potassium 2.8 L (3.40-4.50) mmol/L ABG Chloride 114.0 H (98-107) mmol/L ABG Glucose 113 H (65-95) mg/dL Carboxyhemoglobin 0.4 L (0.5-1.5) Potassium 3.1 L (3.6-5.0) mmol/L BUN 64 H (7-17) mg/dL Creatinine 2.2 H D (0.6-1.2) mg/dL Glucose 105 H (65-100) mg/dL POC Glucose (70-105) mg/dL Calcium 8.3 L D (8.4-10.2) mg/dL Ferritin (10.0-200.0) ng/mL AST 366 H (5-40) units/L ALT 316 H (7-56) units/L Lactate Dehydrogenase (91-180) units/L C-Reactive Protein (0.00-1.30) mg/dL Total Protein 5.4 L D (6.3-8.2) g/dL Albumin 2.5 L (3.9-5) g/dL Arterial Blood Glucose 113 H (65-95) mg/dL Coronavirus (PCR) (Negative) 11/13/20 11/13/20 11/13/20 Range/Units 09:51 09:51 09:51 WBC (4.5-11.0) K/mm3 Hct (30.3-42.9) % Lymph % (Auto) (13.4-35.0) % [place] % (Auto) (0.0-7.3) % Lymph # (Auto) (1.2-5.4) K/mm3 [place] # (Auto) (0.0-0.8) K/mm3 Seg Neutrophils % (40.0-70.0) % Seg Neutrophils # (1.8-7.7) K/mm3 PT 16.0 H (12.2-14.9) Sec. INR 1.23 H (0.87-1.13) D-Dimer 5682.19 H (0-234) ng/mlDDU ABG pH (7.320-7.450) POC ABG pO2 (83-108) mmHg ABG Oxyhemoglobin (94-98) ABG Sodium (136.0-145.0) mmol/L ABG Potassium (3.40-4.50) mmol/L ABG Chloride (98-107) mmol/L ABG Glucose (65-95) mg/dL Carboxyhemoglobin (0.5-1.5) Potassium (3.6-5.0) mmol/L BUN (7-17) mg/dL Creatinine (0.6-1.2) mg/dL Glucose 104 H (65-100) mg/dL POC Glucose (70-105) mg/dL Calcium (8.4-10.2) mg/dL Ferritin (10.0-200.0) ng/mL AST (5-40) units/L ALT (7-56) units/L Lactate Dehydrogenase 1022 H (91-180) units/L C-Reactive Protein 5.50 H (0.00-1.30) mg/dL Total Protein (6.3-8.2) g/dL Albumin (3.9-5) g/dL Arterial Blood Glucose (65-95) mg/dL Coronavirus (PCR) (Negative) 11/13/20 Range/Units 09:51 WBC (4.5-11.0) K/mm3 Hct (30.3-42.9) % Lymph % (Auto) (13.4-35.0) % Cherry % (Auto) (0.0-7.3) % Lymph # (Auto) (1.2-5.4) K/mm3 Cherry # (Auto) (0.0-0.8) K/mm3 Seg Neutrophils % (40.0-70.0) % Seg Neutrophils # (1.8-7.7) K/mm3 PT (12.2-14.9) Sec. INR (0.87-1.13) D-Dimer (0-234) ng/mlDDU ABG pH (7.320-7.450) POC ABG pO2 (83-108) mmHg ABG Oxyhemoglobin (94-98) ABG Sodium (136.0-145.0) mmol/L ABG Potassium (3.40-4.50) mmol/L ABG Chloride (98-107) mmol/L ABG Glucose (65-95) mg/dL Carboxyhemoglobin (0.5-1.5) Potassium (3.6-5.0) mmol/L BUN (7-17) mg/dL Creatinine (0.6-1.2) mg/dL Glucose (65-100) mg/dL POC Glucose (70-105) mg/dL Calcium (8.4-10.2) mg/dL Ferritin 1003.0 H (10.0-200.0) ng/mL AST (5-40) units/L ALT (7-56) units/L Lactate Dehydrogenase (91-180) units/L C-Reactive Protein (0.00-1.30) mg/dL Total Protein (6.3-8.2) g/dL Albumin (3.9-5) g/dL Arterial Blood Glucose (65-95) mg/dL Coronavirus (PCR) (Negative) Assessment and Plan Cultures: Blood culture no growth so far Covid PCR: Positive A/P: 85-year-old female past medical history obesity, chronic low back pain, depression admitted with COVID-19 #Severe COVID-19 pneumonia: Patient presented with a week of symptoms, chest x- ray with diffuse bilateral infiltrates, admission O2 sats 89-90% on room air. Inflammatory markers elevated #Acute hypoxemic respiratory failure: Likely secondary to COVID-19 infection. Currently on the vent. #KATLYN: renally dose medications. not a candidate for remdesivir #nephrolithiasis: with associated hydronephrosis. Recs: -Dexamethasone 6 mg IV/PO daily for 10 days -Not a remdesivir candidate due to renal failure -Repeat CRP tomorrow, if greater than 7.5 give Actemra -Obtain q48-72h inflammatory markers - ferritin, Ddimer, CRP, LDH -Stop antibiotics as normal procalcitonin -Anticoagulation per hospital protocol -Proning as able Thank you for the consult, we will continue to follow. MD [facility] ([facility] O: [phone] F: [phone]
--- NOTE | 2020-11-13 15:44 | Consultation ---
History of Present Illness Consult date: 11/13/20 Requesting physician: KENNEDY CARRILLO Reason for consult: other (Acute Hypoxemic Respiratory Failure; COVID-19 infection) History of present illness: PULMONARY/CCM CONSULT NOTE (Full dictation # [id number]) Please see dictated notes for full details Past History Past Medical History: other (Depression, chronic back pain) Past Surgical History: tonsillectomy, Other (Back surgery, hemorrhoidectomy,) Social history: smoking Medications and Allergies Allergies Allergy/AdvReac Type Severity Reaction Status Date / Time morphine AdvReac Nausea Verified 05/26/13 19:22 Home Medications Medication Instructions Recorded Confirmed Last Taken Type RX: Acetaminophen [Tylenol] 325 mg PO DAILY #10 tablet 05/26/13 10/17/1410/24 Rx RX: Baclofen [Lioresal] 10 mg PO TID PRN 05/26/13 10/17/14 10/16/14 History RX: Diazepam [Valium] 10 mg PO BID 05/26/13 10/17/14 10/16/14 History RX: PARoxetine [Paxil] 10 mg PO DAILY 05/26/13 10/17/14 10/16/14 19:00 History RX: Quetiapine Fumarate [SEROquel 200 mg PO DAILY 05/26/13 10/17/14 10/16/14 History XR] RX: rOPINIRole [Requip] 1 mg PO QHS 05/26/13 10/17/14 10/16/14 19:00 History RX: QUEtiapine [SEROquel] 200 mg PO QHS 05/28/13 10/17/14 10/16/14 19:00 History Famotidine [Pepcid] 10 mg PO BID #60 tablet 06/02/13 10/17/14 10/16/14 Rx levoFLOXacin [Levaquin] 750 mg PO QDAY #7 tablet 06/02/13 10/17/14 10/16/14 Rx metroNIDAZOLE [Flagyl] 500 mg PO Q8HR #30 tablet 06/02/13 10/17/14 10/16/14 Rx Hydromorphone HCl [Dilaudid] 4 mg PO 10/17/14 10/17/14 10/16/14 History Oxycodone HCl/Acetaminophen 1 each PO Q6HR PRN 10/17/14 10/17/14 10/16/14 History [Percocet 10-325 mg] Oxycodone HCl/Acetaminophen 1 each PO Q6HR PRN #30 tablet 10/18/14 Unknown Rx [Percocet 10-325 mg] Active Meds: Active Medications Acetaminophen (Acetaminophen 325 Mg Tab) 650 mg PO Q4H PRN PRN Reason: Pain MILD(1-3)/Fever >100.5/ERAZO Albuterol (Albuterol 2.5 Mg/3 Ml Nebu) 2.5 mg IH Q4HRT PRN PRN Reason: Shortness Of Breath Albuterol/Ipratropium (Ipratropium/Albuterol Sulfate 3 Ml Ampul.Neb) 1 ampul IH QIDRT [facility] Last Admin: 11/13/20 11:45 Dose: 1 ampul Documented by: Baclofen (Baclofen 10 Mg Tab) 10 mg PO TID PRN PRN Reason: MUSCLE SPASMS & PAIN Dexamethasone (Dexamethasone 4 Mg/Ml Vial) 6 mg IV Q24HR CARLOS Stop: 11/22/20 10:01 Last Admin: 11/13/20 11:47 Dose: 6 mg Documented by: Fentanyl (Fentanyl 100 Mcg/2 Ml Inj) 50 mcg IV Q10MIN PRN PRN Reason: ANALGESIA Heparin Sodium (Porcine) (Heparin 10,000 Units/10 Ml Vial) 3,000 unit 40 unit/kg (3000 unit) IV Q6H PRN PRN Reason: Anti-Xa Assay < 0.1 units/ml Hydromorphone HCl (Hydromorphone 1 Mg/1 Ml Inj) 0.5 mg IV Q3H PRN PRN Reason: Pain , Severe (7-10) Hydrophilic Ointment (Lip Therapy Vaseline) 1 applic TP Q2HR PRN PRN Reason: Dry Lips Sodium Chloride (Nacl 0.9% 1000 Ml) 1,000 mls @ 75 mls/hr IV DIRECT CARLOS Heparin Sodium/Sodium Chloride (Heparin/ 0.45% Nacl-25,000 Unit/500 Ml) 25,000 unit in 500 mls @ 23 mls/hr IV TITR CARLOS; Protocol Last Admin: 11/13/20 13:08 Dose: 1,150 units/hr, 23 mls/hr Documented by: Fentanyl Citrate (Fentanyl Drip Premix) 2,000 mcg in 100 mls @ 3.81 mls/hr IV TITR CARLOS; Protocol Last Admin: 11/13/20 06:35 Dose: 1 mcg/kg/hr, 3.81 mls/hr Documented by: Norepinephrine (Levophed Drip 4 Mg/Ns 250 Ml) 4 mg in 250 mls @ 7.5 mls/hr IV TITR CARLOS; Protocol Stop: 11/13/20 18:00 Last Admin: 11/13/20 13:15 Dose: 14 mcg/min, 52.5 mls/hr Documented by: NORepinephrine/NS 8 MG-250 ML (Norepinephrine/Ns 8 Mg-250 Ml (Double Conc)) 8 mg in 250 mls @ 3.75 mls/hr IV TITRATE CARLOS; Protocol Cefepime HCl (Cefepime/Ns 2 Gm/100 Ml) 2 gm in 100 mls @ 200 mls/hr IV Q24H [facility]; Protocol Metoclopramide HCl (Metoclopramide 10 Mg/2 Ml Inj) 10 mg IV Q6H PRN PRN Reason: Nausea And Vomiting Multi-Ingred Cream/Lotion/Oil/Oint (Mineral Oil/Petrolatum, White Ophth Oint 3.5 Gm) 1 applic OU Q4HR PRN PRN Reason: Dry Eye(s) Ondansetron HCl (Ondansetron 4 Mg/2 Ml Inj) 4 mg IV Q3H PRN PRN Reason: Nausea And Vomiting Oxycodone/Acetaminophen (Oxycodone /Acetaminophen 5-325mg Tab) 1 tab PO Q6H PRN PRN Reason: Pain, Moderate (4-6) Pantoprazole Sodium (Pantoprazole 40 Mg Inj) 40 mg IV BID [facility] Paroxetine HCl (Paroxetine 10 Mg Tab) 10 mg PO DAILY [facility] Last Admin: 11/13/20 11:44 Dose: Not Given Documented by: Ropinirole HCl (Ropinirole 1 Mg Tab) 1 mg PO QHS [facility] Last Admin: 11/13/20 04:56 Dose: Not Given Documented by: Sodium Chloride (Sodium Chloride 0.9% 10 Ml Flush Syringe) 10 ml IV BID [facility] Last Admin: 11/13/20 11:44 Dose: 10 ml Documented by: Sodium Chloride (Sodium Chloride 0.9% 10 Ml Flush Syringe) 10 ml IV PRN PRN PRN Reason: LINE FLUSH Physical Examination Vital signs: Vital Signs Temp Pulse Resp BP Pulse Ox 98.3 F 110 H 16 150/74 94 11/11/20 12:58 11/11/20 12:58 11/11/20 12:58 11/11/20 12:58 11/11/20 12:58 Results - Laboratory Findings CBC and BMP: 11/13/20 05:23 11/13/20 09:51 ABG ABG pH 7.243 (7.320-7.450) L 11/13/20 08:22 POC ABG pCO2 42.4 mmHg (32.0-48.0) 11/13/20 08:22 POC ABG pO2 82.0 mmHg (83-108) L 11/13/20 08:22 POC ABG HCO3 17.9 11/13/20 08:22 ABG O2 Saturation 94.2 (0-100) 11/13/20 08:22 PT/INR, D-dimer PT 16.0 Sec. (12.2-14.9) H 11/13/20 09:51 INR 1.23 (0.87-1.13) H 11/13/20 09:51 D-Dimer 5682.19 ng/mlDDU (0-234) H 11/13/20 09:51 Abnormal lab findings: Abnormal Labs 11/11/20 11/11/20 11/11/20 13:39 13:39 16:59 WBC 19.5 H RBC 5.93 H Hgb 17.0 H Hct 50.6 H Plt Count 449 H Lymph % (Auto) 12.0 L [place] % (Auto) 7.7 H Lymph # (Auto) [place] # (Auto) 1.5 H Seg Neutrophils % 80.0 H Seg Neutrophils # 15.6 H PT INR D-Dimer 1525.92 H ABG pH POC ABG pO2 ABG Oxyhemoglobin ABG Sodium ABG Potassium ABG Chloride ABG Glucose Carboxyhemoglobin Sodium Potassium 3.5 L Chloride 97.3 L Carbon Dioxide BUN 30 H Creatinine 0.5 L Glucose 128 H POC Glucose Hemoglobin A1c Calcium Ferritin AST ALT Lactate Dehydrogenase C-Reactive Protein Total Protein Albumin 3.8 L Arterial Blood Glucose Coronavirus (PCR) 11/11/20 11/11/20 11/11/20 16:59 17:12 Unknown WBC RBC Hgb Hct Plt Count Lymph % (Auto) [place] % (Auto) Lymph # (Auto) [place] # (Auto) Seg Neutrophils % Seg Neutrophils # PT INR D-Dimer ABG pH 7.501 H POC ABG pO2 55.0 L ABG Oxyhemoglobin 89.5 L ABG Sodium ABG Potassium 3.2 L ABG Chloride ABG Glucose 131 H Carboxyhemoglobin Sodium Potassium Chloride Carbon Dioxide BUN Creatinine Glucose 117 H POC Glucose Hemoglobin A1c Calcium Ferritin AST ALT Lactate Dehydrogenase 204 H C-Reactive Protein Total Protein Albumin Arterial Blood Glucose 131 H Coronavirus (PCR) Positive A 11/12/20 11/12/20 11/12/20 05:07 05:07 05:07 WBC 16.7 H RBC 5.74 H Hgb 16.6 H Hct 50.3 H Plt Count 450 H Lymph % (Auto) 12.1 L [place] % (Auto) 7.5 H Lymph # (Auto) [place] # (Auto) 1.3 H Seg Neutrophils % 77.9 H Seg Neutrophils # 13.0 H PT INR D-Dimer ABG pH POC ABG pO2 ABG Oxyhemoglobin ABG Sodium ABG Potassium ABG Chloride ABG Glucose Carboxyhemoglobin Sodium 147 H Potassium Chloride Carbon Dioxide 35 H D BUN 34 H Creatinine Glucose 117 H POC Glucose Hemoglobin A1c 6.6 H Calcium 11.1 H Ferritin AST ALT Lactate Dehydrogenase C-Reactive Protein Total Protein Albumin Arterial Blood Glucose Coronavirus (PCR) 11/12/20 11/13/20 11/13/20 23:58 01:36 04:00 WBC RBC Hgb Hct Plt Count Lymph % (Auto) [place] % (Auto) Lymph # (Auto) [place] # (Auto) Seg Neutrophils % Seg Neutrophils # PT INR D-Dimer ABG pH POC ABG pO2 ABG Oxyhemoglobin ABG Sodium 147.3 H ABG Potassium 3.2 L ABG Chloride 109.0 H ABG Glucose 118 H Carboxyhemoglobin 0.3 L Sodium Potassium 3.1 L Chloride Carbon Dioxide BUN 64 H Creatinine 2.2 H D Glucose 105 H POC Glucose 181 H Hemoglobin A1c Calcium 8.3 L D Ferritin AST 366 H ALT 316 H Lactate Dehydrogenase C-Reactive Protein Total Protein 5.4 L D Albumin 2.5 L Arterial Blood Glucose 118 H Coronavirus (PCR) 11/13/20 11/13/20 11/13/20 05:23 08:22 09:51 WBC 15.9 H RBC Hgb Hct 44.4 H Plt Count Lymph % (Auto) 5.7 L [place] % (Auto) 9.0 H Lymph # (Auto) 0.9 L [place] # (Auto) 1.4 H Seg Neutrophils % 85.3 H Seg Neutrophils # 13.6 H PT 16.0 H INR 1.23 H D-Dimer ABG pH 7.243 L POC ABG pO2 82.0 L ABG Oxyhemoglobin 93.5 L ABG Sodium 146.6 H ABG Potassium 2.8 L ABG Chloride 114.0 H ABG Glucose 113 H Carboxyhemoglobin 0.4 L Sodium Potassium Chloride Carbon Dioxide BUN Creatinine Glucose POC Glucose Hemoglobin A1c Calcium Ferritin AST ALT Lactate Dehydrogenase C-Reactive Protein Total Protein Albumin Arterial Blood Glucose 113 H Coronavirus (PCR) 11/13/20 11/13/20 11/13/20 09:51 09:51 09:51 WBC RBC Hgb Hct Plt Count Lymph % (Auto) [place] % (Auto) Lymph # (Auto) [place] # (Auto) Seg Neutrophils % Seg Neutrophils # PT INR D-Dimer 5682.19 H ABG pH POC ABG pO2 ABG Oxyhemoglobin ABG Sodium ABG Potassium ABG Chloride ABG Glucose Carboxyhemoglobin Sodium Potassium Chloride Carbon Dioxide BUN Creatinine Glucose 104 H POC Glucose Hemoglobin A1c Calcium Ferritin 1003.0 H AST ALT Lactate Dehydrogenase 1022 H C-Reactive Protein 5.50 H Total Protein Albumin Arterial Blood Glucose Coronavirus (PCR)
[2020-11-13] MEDS: SODIUM CHLORIDE 0.9% 1000 ML 1,000 ML IV SCH (17:15)
[2020-11-13] MEDS: PANTOPRAZOLE 40 MG INJ IV SCH ×2 (17:16→21:40)
[2020-11-13] MEDS ORDERED: LIPASE 10,500/PROTEASE 25,000/AMYLASE 43,750 (UNITS) DR CAP FEEDTUBE PRN (17:32)
[2020-11-13] MEDS ORDERED: SODIUM BICARBONATE 325 MG TAB FEEDTUBE PRN (17:32)
[2020-11-13] MEDS ORDERED: SIMPLE SYRUP 15 ML FEEDTUBE PRN ×2 (17:32)
--- NOTE | 2020-11-13 17:55 | Anesthesia Consultation ---
Anesthesia Consult and Med Hx - Airway Intubation Access Assessment: Possibly Difficult (oETT in situ) - Pulmonary Exam CTA: No (mechanical ventilation) - Pre-Operative Health Status ASA Pre-Surgery Classification: ASA4 Proposed Anesthetic Plan: General - Pulmonary Hx Smoking: Yes Hx Respiratory Symptoms: Yes (acute hypoxic resp failure 2/2 COVID PNA) Hx Pneumonia: Yes (COVID PNA this admission) - Cardiovascular System Hx Hypertension: No (septic shock requiring pressor support) - Central Nervous System Hx Back Pain: Yes (chronic pain) - Endocrine Hx Renal Disease: Yes (worsening KATLYN, obstructing renal stone) Hx Insulin Dependent Diabetes: No - Additional Comments Anesthesia Medical History Comments: Patient presenting with septic shock, respiratory distress found to have COVID PNA and obstructing renal stone. Intubated, pressors initiated in ED. Current gtts: levophed @ 14mcg/min, fentanyl @ 1mcg/kg/hr, heparin infusion. Current vent settings: ~400x20, FiO2 100%, Peep 10, SpO2 low 90s. Consent obtained from daughter. Will returned to ICU intubated.
[2020-11-13] MEDS ORDERED: propofoL 200 MG/20 ML VIAL IV ONE (18:39)
[2020-11-13] MEDS ORDERED: fentaNYL 100 MCG/2 ML INJ ONE (18:40)
[2020-11-13] MEDS ORDERED: PHENYLEPHRINE 10 MG/1 ML INJ SDV ONE (18:41)
[2020-11-13] MEDS ORDERED: LIDOCAINE MPF (2%) 20 MG/1 ML VIAL 5 ML ONE (18:41)
[2020-11-13] MEDS ORDERED: SODIUM CHLORIDE 0.9% 100 ML ONE (18:41)
[2020-11-13] MEDS ORDERED: ROCURONIUM 50 MG/5 ML INJ IV ONE (18:41)
[2020-11-13] MEDS ORDERED: ESMOLOL 100 MG/10 ML INJ IV ONE (18:41)
--- NOTE | 2020-11-13 18:48 | Consultation ---
History of Present Illness - Reason for Consult Consult date: 11/13/20 acute renal failure - History of Present Illness The patient is a 85 YO female with medical history significant for Obesity, chronic low back pain and Depression who presented to [facility] ED 11/11 with 1 week history of nausea and vomiting. This is associated with decreased p.o. intake at baseline, she is bedridden and nonambulatory. She was also complained of mild diarrhea. She had decreased saturations on admission. Patient was not able to provide any history and there was no family member at the bedside. Pt is febrile, tachycardia with intermittent hypotension. Covid positive. Chest x-ray: Left lung base atelectasis. Chest CTA: No acute airspace disease. CT abdomen pelvis: Obstructive calculi right renal pelvis 7 mm distal left ureteral stone. Currently patient is intubated on vent. Labs significant for Creat 2.2, BUN 64, K 3.1 and elevated ALT & AST. Nephrology was consulted for treatment of KATLYN. Past History Past Medical History: other (Depression, chronic back pain) Past Surgical History: tonsillectomy, Other (Back surgery, hemorrhoidectomy,) Social history: smoking Medications and Allergies Allergies Allergy/AdvReac Type Severity Reaction Status Date / Time morphine AdvReac Nausea Verified 05/26/13 19:22 Home Medications Medication Instructions Recorded Confirmed Last Taken Type Acetaminophen [Tylenol] 325 mg PO DAILY #10 tablet 05/26/13 10/17/14 10/16/14 Rx Baclofen [Lioresal] 10 mg PO TID PRN 05/26/13 10/17/14 10/16/14 History Diazepam [Valium] 10 mg PO BID 05/26/13 10/17/14 10/16/14 History PARoxetine [Paxil] 10 mg PO DAILY 05/26/13 10/17/14 10/16/14 19:00 History Quetiapine Fumarate [SEROquel XR] 200 mg PO DAILY 05/26/13 10/17/14 10/16/14 History rOPINIRole [Requip] 1 mg PO QHS 05/26/13 10/17/14 10/16/14 19:00 History QUEtiapine [SEROquel] 200 mg PO QHS 05/28/13 10/17/14 10/16/14 19:00 History Famotidine [Pepcid] 10 mg PO BID #60 tablet 06/02/13 10/17/14 10/16/14 Rx levoFLOXacin [Levaquin] 750 mg PO QDAY #7 tablet 06/02/13 10/17/14 10/16/14 Rx metroNIDAZOLE [Flagyl] 500 mg PO Q8HR #30 tablet 06/02/13 10/17/14 10/16/14 Rx Hydromorphone HCl [Dilaudid] 4 mg PO 10/17/14 10/17/14 10/16/14 History Oxycodone HCl/Acetaminophen 1 each PO Q6HR PRN 10/17/14 10/17/14 10/16/14 Histo ry [Percocet 10-325 mg] Oxycodone HCl/Acetaminophen 1 each PO Q6HR PRN #30 tablet 10/18/14 Unknown Rx [Percocet 10-325 mg] Active Meds: Active Medications Acetaminophen (Acetaminophen 325 Mg Tab) 650 mg PO Q4H PRN PRN Reason: Pain MILD(1-3)/Fever >100.5/ERAZO Albuterol (Albuterol 2.5 Mg/3 Ml Nebu) 2.5 mg IH Q4HRT PRN PRN Reason: Shortness Of Breath Albuterol/Ipratropium (Ipratropium/Albuterol Sulfate 3 Ml Ampul.Neb) 1 ampul IH QIDRT [facility] Last Admin: 11/13/20 17:20 Dose: 1 ampul Documented by: Lipase/Protease/Amylase (Lipase 10,500/Protease 25,000/Amylase 43,750 (Units) Dr Weiss) 1 each FEEDTUBE PRN PRN PRN Reason: For Clogged Feeding Tube Ascorbic Acid (Ascorbic Acid 500 Mg Tab) 500 mg PO BID [facility] Baclofen (Baclofen 10 Mg Tab) 10 mg PO TID PRN PRN Reason: MUSCLE SPASMS & PAIN Dexamethasone (Dexamethasone 4 Mg/Ml Vial) 6 mg IV Q24HR [facility] Stop: 11/22/20 10:01 Last Admin: 11/13/20 11:47 Dose: 6 mg Documented by: Dextrose (Dextrose 50% In Water (25gm) 50 Ml Syringe) 50 ml IV Q30MIN PRN; Protocol PRN Reason: Hypoglycemia Fentanyl (Fentanyl 100 Mcg/2 Ml Inj) 50 mcg IV Q10MIN PRN PRN Reason: ANALGESIA Heparin Sodium (Porcine) (Heparin 10,000 Units/10 Ml Vial) 3,000 unit 40 unit/kg (3000 unit) IV Q6H PRN PRN Reason: Anti-Xa Assay < 0.1 units/ml Hydromorphone HCl (Hydromorphone 1 Mg/1 Ml Inj) 0.5 mg IV Q3H PRN PRN Reason: Pain , Severe (7-10) Hydrophilic Ointment (Lip Therapy Vaseline) 1 applic TP Q2HR PRN PRN Reason: Dry Lips Sodium Chloride (Nacl 0.9% 1000 Ml) 1,000 mls @ 75 mls/hr IV DIRECT CARLOS Last Admin: 11/13/20 17:15 Dose: 75 mls/hr Documented by: Heparin Sodium/Sodium Chloride (Heparin/ 0.45% Nacl-25,000 Unit/500 Ml) 25,000 unit in 500 mls @ 23 mls/hr IV TITR CARLOS; Protocol Last Admin: 11/13/20 13:08 Dose: 1,150 units/hr, 23 mls/hr Documented by: Fentanyl Citrate (Fentanyl Drip Premix) 2,000 mcg in 100 mls @ 3.81 mls/hr IV TITR CARLOS; Protocol Last Admin: 11/13/20 06:35 Dose: 1 mcg/kg/hr, 3.81 mls/hr Documented by: NORepinephrine/NS 8 MG-250 ML (Norepinephrine/Ns 8 Mg-250 Ml (Double Conc)) 8 mg in 250 mls @ 3.75 mls/hr IV TITRATE [facility]LOS; Protocol Cefepime HCl (Cefepime/Ns 2 Gm/100 Ml) 2 gm in 100 mls @ 200 mls/hr IV Q24H [facility]; Protocol Last Admin: 11/13/20 17:16 Dose: 200 mls/hr Documented by: Insulin Human Regular (Insulin Regular, Human 100 Units/1 Ml) 0 units SUB-Q Q6H [facility]; Protocol Metoclopramide HCl (Metoclopramide 10 Mg/2 Ml Inj) 10 mg IV Q6H PRN PRN Reason: Nausea And Vomiting Multi-Ingred Cream/Lotion/Oil/Oint (Mineral Oil/Petrolatum, White Ophth Oint 3.5 Gm) 1 applic OU Q4HR PRN PRN Reason: Dry Eye(s) Ondansetron HCl (Ondansetron 4 Mg/2 Ml Inj) 4 mg IV Q3H PRN PRN Reason: Nausea And Vomiting Oxycodone/Acetaminophen (Oxycodone /Acetaminophen 5-325mg Tab) 1 tab PO Q6H PRN PRN Reason: Pain, Moderate (4-6) Pantoprazole Sodium (Pantoprazole 40 Mg Inj) 40 mg IV BID [facility] Last Admin: 11/13/20 17:16 Dose: 40 mg Documented by: Paroxetine HCl (Paroxetine 10 Mg Tab) 10 mg PO DAILY [facility] Last Admin: 11/13/20 11:44 Dose: Not Given Documented by: Ropinirole HCl (Ropinirole 1 Mg Tab) 1 mg PO QHS [facility] Last Admin: 11/13/20 04:56 Dose: Not Given Documented by: Simple Syrup (Simple Syrup 15 Ml) 15 ml FEEDTUBE PRN PRN PRN Reason: Hypoglycemia Simple Syrup (Simple Syrup 15 Ml) 30 ml FEEDTUBE PRN PRN PRN Reason: Hypoglycemia Sodium Bicarbonate (Sodium Bicarbonate 325 Mg Tab) 325 mg FEEDTUBE PRN PRN PRN Reason: For Clogged Feeding Tube Sodium Chloride (Sodium Chloride 0.9% 10 Ml Flush Syringe) 10 ml IV BID [facility] Last Admin: 11/13/20 11:44 Dose: 10 ml Documented by: Sodium Chloride (Sodium Chloride 0.9% 10 Ml Flush Syringe) 10 ml IV PRN PRN PRN Reason: LINE FLUSH Zinc Sulfate (Zinc Sulfate 220 Mg Cap) 220 mg PO BID [facility] Review of Systems ROS unobtainable: due to mental status Exam - Vital Signs Vital signs: Vital Signs Temp Pulse Resp BP Pulse Ox 98.3 F 110 H 16 150/74 94 11/11/20 12:58 11/11/20 12:58 11/11/20 12:58 11/11/20 12:58 11/11/20 12:58 Results - Lab Results 11/14/20 04:35 11/14/20 04:35 Most recent lab results ABG pH 7.243 (7.320-7.450) L 11/13/20 08:22 ABG O2 Saturation 94.2 (0-100) 11/13/20 08:22 Calcium 8.3 mg/dL (8.4-10.2) L D 11/13/20 04:00 Assessment and Plan 1. Acute kidney injury: KATLYN in the setting of severe Covid infection. Patient is also hypotensive. Received IV contrast. CT abdomen showed non-obstructive 7 mm distal left ureteral stone. Urine studies ordered. Monitor renal function. Avoid nephrotoxic agents. Meds dosage based on GFR. 2. FEN: Hypokalemia, replete K, monitor. Monitor lytes and volume status. 3. Acute respiratory failure with hypoxemia: 2/2 Covid PNA. Currently onvent, wean as tolerated. 4. Covid PNA: Followed by ID. 5. L ureteral stone: S/p b/l stent. Followed by Urologist. 6. Elevated ALT & AST: Trend. 7. DM type 2: Monitor. Subjective: Patient was seen and examined at the bedside. Examination: General appearance: well-developed, appears stated age, intubated on vent HEENT: atraumatic, no icterus Neck: trachea midline Respiratory: MV sounds Heart: S1S2, regular, tachycardia, no murmur Abdomen: soft, bowel sounds heard, NT Integumentary: no obvious rash Neurologic: not responding Ext: edema : Lind catheter
[2020-11-13] MEDS ORDERED: WATER FOR IRRIG STERILE 2000 ML IR ONE (19:00)
[2020-11-13] MEDS: INSULIN REGULAR, HUMAN 100 UNITS/1 ML SUB-Q SCH (19:18)
--- NOTE | 2020-11-13 19:21 | Post Operative Note ---
Date of procedure: 11/13/20 Pre-op diagnosis: bilat ureteral stone Post-op diagnosis: same Procedure: cysto, bilat stent placement----6F+ 22cm short internal string Anesthesia: MEG Surgeon: STEFANI MASTERSON Condition: stable Disposition: ICU
--- NOTE | 2020-11-13 19:51 | Anesthesia Day of Surgery ---
Anesthesia Day of Surgery - Day of Surgery Patient Examined: Yes Patient H&P Reviewed: Yes Patient is NPO: Yes
--- NOTE | 2020-11-13 19:53 | Post Anesthesia Evaluation ---
- Post Anesthesia Evaluation Patient Participated: No (intubated, sedated) Airway Patent: Yes Stable Respiratory Function: Yes Temp > 96.8F: Yes Anesthesia Complications: No Patient on Ventilator: Yes (returned to preop vent settings FiO 100%, Peep 10) Other Comments: Transported to ICU with AMBU + O2, monitors on and VS stable with levophed, fentanyl, and heparin infusing. Handoff given to SHELLFISH WEIGHER at bedside. Patient stable at time of transfer of care.
--- NOTE | 2020-11-13 20:55 | Fluoroscopy Report ---
INTRAOPERATIVE FLUOROSCOPY: ABDOMEN INDICATION / CLINICAL INFORMATION: BILATERAL URETERAL STONE. TECHNIQUE: Intraoperative spot images were obtained during the procedure. FINDINGS: Images show placement of bilateral ureteral stents See operative/procedure note by performing physician for full details. Fluoroscopy Time: 26 seconds. Fluoroscopy Images: 5. Signer Name: Aroldo Garland MD Signed: 11/13/2020 8:51 PM Workstation Name: [id number]
[2020-11-13] MEDS: NORepinephrine/NS 8 MG-250 ML 8 MG/250 ML INFUS..BTL IV SCH (21:38)
[2020-11-13] MEDS: ASCORBIC ACID 500 MG TAB PO SCH (21:40)
[2020-11-13] MEDS: ZINC SULFATE 220 MG CAP PO SCH (21:40)
[2020-11-13] MEDS ORDERED: ENOXAPARIN 40 MG/0.4 ML INJ SUB-Q SCH (22:00)
--- NOTE | 2020-11-14 00:33 | Consultation ---
DATE OF CONSULTATION: 11/13/2020 PULMONARY CRITICAL CARE CONSULTATION CONSULTING PHYSICIAN: Dr. Shankar. REASON FOR CONSULTATION: Acute hypoxemic respiratory failure, on mechanical ventilatory support; COVID-19 infection. CHIEF COMPLAINT AND HISTORY OF PRESENT ILLNESS: The patient is a now 85-year-old female with past medical history significant amongst other things for a diagnosis of obesity, who came presented complaining of nausea and vomiting, reduced oral intake, mild diarrhea. Denied abdominal pain. Denied fevers. Denied dysuria or hematuria. She is reported to be bedridden and nonambulatory. It is unclear if she came in from home or from assisted living facility. She was confused. Apparently, her daughter was present and mentioned this had been going on for 3 days symptoms that is and she was brought in because of persistent nausea and vomiting on the day of presentation. She was evaluated in the Emergency Room by the Emergency Room physician. As part of the workup, COVID-19 test was sent for bilateral pulmonary infiltrates and she ultimately decompensated and required intubation. The circumstances around her intubation are unclear. She was followed up in critical care unit where I stopped by to see him. When I stopped by to see her, she was rested in bed, sedated, nonresponsive. I do not have any history of overt aspiration, I cannot rule that out. She had multiple episodes of nausea and vomiting prior to admission. With regard to the patient's tobacco use/abuse history, she is described as a never smoker. The above is as much of the history of presentation as I have. PAST MEDICAL HISTORY: Again, significant for obesity, chronic low back pain, depression. PAST SURGICAL HISTORY: She has had a cholecystectomy. She has had hemorrhoid surgery. She has had bladder surgery. MEDICATIONS: She was on at the time I stopped by to see were reviewed. Pertinent medications include the following: Tylenol 650 mg p.o. q.4 hours p.r.n. mild pain or fevers. All p.o. meds via the feeding tube. Albuterol 2.5 mg nebulized q.4 hours p.r.n. shortness of breath, DuoNeb nebulizer treatments scheduled q.i.d., baclofen 10 mg p.o. t.i.d. p.r.n. muscle spasms, cefepime 2 g IV daily, Decadron 6 mg IV q.24 hours, fentanyl drip was going at 1 mcg/kg per hour. She was also on IV heparin, Dilaudid 0.5 mg IV q.3 hours p.r.n. severe pain, Reglan 10 mg IV q.6 hours p.r.n. nausea and vomiting, Levophed drip was going at I believe 14 mcg per minute, Zofran 4 mg IV q.3 hours p.r.n. nausea and vomiting, Percocet 5/325 one tablet p.o. q.6 hours p.r.n. moderate pain, Protonix drip was running. ALLERGIES: MORPHINE, NATURE OF THIS ALLERGY IS UNKNOWN. DIET: Obese lady, acute weight loss or gain history is unknown. FAMILY AND SOCIAL HISTORY: Lives in the community; however, it is unclear if this is an assisted living arrangement, a detention or if she came from home. No current alcohol, tobacco or illicit drug use or abuse. Remote history is unknown. REVIEW OF SYSTEMS: Unobtainable secondary to the patient's medical and mental condition. Since she has been here, no gross hematochezia or melena, no gross hematuria, no hematemesis, no bloody tracheal secretions, no witnessed seizures. Review of systems otherwise unobtainable or as in the body of the history above. PHYSICAL EXAMINATION: VITAL SIGNS: Again the presentation, temperature was 98.3 degrees Fahrenheit, pulse of 110, respiratory rate of 16, blood pressure 150/74, O2 sats were 94%, inspired oxygen concentration at that time was not recorded. When I stopped by to see her, O2 sats were 94% that was on the assist control mode of ventilation, tidal volumes were set at 400, rate of 20, PEEP of 6 and 80% FiO2 at that time. GENERAL: She is an elderly looking female. Normocephalic and atraumatic on the mechanical ventilator without significant patient-ventilator dyssynchrony. HEAD, EYES, EARS, NOSE AND THROAT: She was anicteric. No conjunctival erythema. Oropharynx was moist. Endotracheal tube was taped around 24 cm at the lips. NECK: No gross jugular venous distention. She has a left IJ line that is reportedly ____ placed in the carotid. Grossly, there were no palpable lymph nodes in the supraclavicular or submandibular lymph node chains. LUNGS: Auscultation of both lung chavez significant for diminished bilateral breath sounds, scant rhonchi, no wheezing. HEART: Sounds 1 and 2 are heard at the time of my evaluation, regular rate and rhythm without overt rubs or murmurs. ABDOMEN: Soft, full, protuberant. Bowel sounds are positive, nontender, no palpable hepatosplenomegaly. EXTREMITIES: Without overt digital clubbing or cyanosis. No pedal edema. Pedal pulses are 2+ bilaterally. She has a groin femoral line. NEUROLOGIC: Pupils are equal, round, about 3 mm, sluggishly reactive to light. Extraocular muscle movements could not be assessed. She was lightly sedated and did not have much spontaneous movement. SKIN: Normal turgor in the areas I examined without overt cellulitis or rash. Please see the wound care nurses' notes for full description of her skin. PSYCHIATRIC: Mood and affect could not be assessed. She was sedated. LABORATORY DATA: From my review are as follows: Admission white cell count 19,500, hemoglobin 17.0, hematocrit 50.6, platelet count 449. D-dimer 1525. INR 0.96. Arterial blood gas at presentation showed a pH of 7.50, pCO2 of 39, pO2 of 55 that was on room air. Serum sodium was 140, potassium 3.5, chloride 97, bicarbonate 26, BUN 30, creatinine 0.5, glucose 128. Lactic acid level was within normal limits. Liver function tests are within normal limits. Troponin was within normal limits. Lipase within normal limits. Procalcitonin within normal limits. CRP within normal limits. Urinalysis was negative for nitrites, it had small leukocyte esterase, only 1 white cell per high power field. Coronavirus PCR testing was positive. ABG this morning showed a pH of 7.24, pCO2 of 40, pO2 of 82 and I was on 100% FIO2 on the above-mentioned vent settings. BUN is 64, creatinine is 2.2. Ferritin is elevated at 1003. CRP is up to 5.5. Two sets of blood cultures, no growth to date. Stool was sent for occult blood testing that came back positive. A chest x-ray at presentation really a clear chest x-ray without any acute findings as poorly positioned and rotated to the left. A CT of the abdomen was done, nonobstructive calculi in the right renal pelvis, 5.3 cm simple-appearing cystic mass in the left adnexa are stable. Moderate gaseous distention of the stomach. A CT of the chest was done, it showed a left central line in the left carotid artery with the tip at the junction of the superior aortic arch. A CTA of the chest was also done and it showed on review at least by the vascular team was possible thrombosis at the entry site in the left carotid artery. Chest x-ray today appears to be developing infiltrates, very poorly rotated film, but the left lung, the suggestion of developing new infiltrates. ET tube was in good position. Left IJ carotid line remains in place. ASSESSMENT: 1. Acute hypoxemic respiratory failure, on mechanical ventilatory support. 2. COVID-19 infection. 3. Pneumonia, left lung. 4. Acute toxic metabolic encephalopathy. 5. Inadvertently placed left carotid line. 6. Acute kidney injury. 7. Nephrolithiasis. 8. Leukocytosis. 9. Metabolic acidosis. 10. Mild hypernatremia. PLAN: We will keep her on full mechanical ventilatory support. I have increased the tidal volume to 452, improve minute ventilation to help compensate for mostly metabolic acidosis. Oxygen will be weaned to keep sats greater than or equal to about 92%. Ventilator-associated pneumonia bundle has been introduced. The patient from a COVID-19 standpoint will be kept in airborne and contact isolation. Of note, she is not a candidate for remdesivir therapy. We will continue her on systemic steroid therapy. I will be started on zinc and vitamin C supplementation. Bronchodilators, routine pulmonary hygiene will be per the respiratory therapist. Vascular Surgery is evaluating her. She will remain on full anticoagulation for now in light of arterial thrombus that was seen on a decision on her surgical or other intervention to remove overlying will be discussed down the line. There is a question of a GI bleed. It is unclear whether that history comes from. We will investigate that further and get a GI consult if necessary. For now, we will put her on double dose PPI therapy if there was indeed a real bleed, then we will especially with her anticoagulation, a Protonix drip will be started. Enteral nutrition will be the feeding modality of choice. Nephrology consultation will be placed for assistance with acute kidney injury. I will repeat an arterial blood gas at 9:00 p.m. tonight and address as necessary. She is fully anticoagulated. She is on GI prophylaxis. Flu and pneumonia vaccination will be addressed per protocol. Vasopressors will be weaned to keep mean arterial pressures greater than or equal to about 65 mmHg. I will order urine electrolytes and see if this is a prerenal azotemia and gentle hydration will be considered. Thank you very much for the consult, Dr. Shankar. We will follow along and make further recommendations as picture progresses/becomes clearer. She is critically ill on life-sustaining interventions including mechanical ventilatory support at very high risk of from cardiopulmonary system and renal system decompensation. At this time, I was spent about 35-40 minutes of critical care time without overlap and excluding any procedural time that may be necessary. TID: [id number] RECEIPT: [id number] [facility]/JONNA
[2020-11-14] MEDS: DEXTROSE 50% IN WATER (25GM) 50 ML SYRINGE IV PRN (01:12)
[2020-11-14 05:18] LABS: Hematocrit 43.9 % (30.3-42.9); Hemoglobin 14.1 gm/dl (10.1-14.3); Mean Corpuscular HGB Conc 32 % (30-34); Mean Corpuscular Volume 90 fl (79-97); Platelet Count 258 K/mm3 (140-440); Red Blood Count 4.87 M/mm3 (3.65-5.03); Red Cell Distribution Width 15.3 % (13.2-15.2)
[2020-11-14 05:46] LABS: Calcium 7.3 mg/dL (8.4-10.2)
[2020-11-14] MEDS: SODIUM CHLORIDE 0.9% 1000 ML 1,000 ML IV SCH (05:56)
[2020-11-14] MEDS: NORepinephrine/NS 8 MG-250 ML 8 MG/250 ML INFUS..BTL IV SCH ×2 (05:56→16:04)
[2020-11-14] MEDS: INSULIN REGULAR, HUMAN 100 UNITS/1 ML SUB-Q SCH ×4 (05:56→23:20)
--- NOTE | 2020-11-14 06:31 | Operative Report ---
DATE OF SURGERY: 11/13/2020 PREOPERATIVE DIAGNOSIS: Bilateral ureteral stones. POSTOPERATIVE DIAGNOSIS: Bilateral ureteral stones. PROCEDURE PERFORMED: Cystoscopy, left retrograde pyelogram, bilateral stent placement (6-Samoan 22 cm with a short internal string). SURGEON: Oscar Rivas MD ANESTHESIA: General. ESTIMATED BLOOD LOSS: Minimal. COMPLICATIONS: No complications DISPOSITION: The patient was transferred back to the ICU. INDICATIONS: This 85-year-old female presented to the Emergency Room with abdominal pain, nausea, vomiting, also found to have respiratory distress and was intubated in the Emergency Room. Ultimately, a workup revealed she is positive for COVID-19. CT of abdomen and pelvis revealed right renal stones, left 7 mm distal stone with mild hydronephrosis. Discussed findings with daughter, Ms. Azevedo as well as the other members of the medical team. They agreed to proceed with surgical intervention. She is high risk. DESCRIPTION OF PROCEDURE: The patient was taken to the operative suite. She was already intubated, was placed in the dorsal lithotomy position, prepped and draped in a sterile fashion. Cystoscopy was performed. Diffuse mild erythema of the bladder and trabeculation. A motion and time study teacher film suggested bilateral distal ureteral stones. A 0.035 Glidewire was placed up the right collecting system. A 6-Samoan 22 cm double-J stent with a short string was placed on the right without difficulty. On the left side, there was unable to place a stent. A retrograde revealed some J-hooking. With aid of my finger in the vagina, I was able to change the angulation of the ureter. I used a curved tip 0.035 Glidewire, was able to advance it up the ureter. A 6-Samoan 22 cm double-J stent was placed on the left as well without difficulty. A 16-Samoan Lind catheter was placed. The patient was then transferred back to the ICU. TID: [id number] RECEIPT: [id number] DMITRIY/VENECIA
[2020-11-14 06:51] LABS: Color,Urine Red (Yellow); RBC,Urine > 182.0 /HPF (0.0-6.0); WBC,Urine > 182.0 /HPF (0.0-6.0)
[2020-11-14 06:52] LABS: Bilirubin,Urine Color Interference (Negative); PH,Urine TNR (5.0-7.0); Protein,Urine TNR mg/dL (Negative); Urobilinogen,Urine TNR mg/dL (<2.0)
[2020-11-14 06:53] LABS: Ictotest,Urine TNR (Negative)
[2020-11-14] MEDS ORDERED: TOCILIZUMAB 600 MG in SODIUM CHLORIDE 0.9% 100 ML IV ONE (09:00)
[2020-11-14] MEDS: PANTOPRAZOLE 40 MG INJ IV SCH ×2 (09:10→22:34)
[2020-11-14] MEDS: ZINC SULFATE 220 MG CAP PO SCH ×2 (09:10→22:34)
[2020-11-14] MEDS: PARoxetine 10 MG TAB PO SCH (09:11)
[2020-11-14] MEDS: dexAMETHasone 4 MG/ML VIAL IV SCH (09:11)
[2020-11-14] MEDS: ASCORBIC ACID 500 MG TAB PO SCH ×2 (09:11→22:34)
[2020-11-14] MEDS: DEXTROSE 5% IN WATER 1,000 ML IV SCH (09:11)
--- NOTE | 2020-11-14 10:12 | Progress Note ---
Assessment and Plan 1. Acute kidney injury: KATLYN in the setting of severe Covid infection. Patient is also hypotensive. Received IV contrast 11/13. CT abdomen showed non-obstructive 7 mm distal left ureteral stone. Urine studies ordered. Monitor renal function. Creatinine level is about the same. Avoid nephrotoxic agents. Meds dosage based on GFR. 2. FEN: Hypernatremia, IV D5W, monitor. Hyperchloremic metabolic acidosis, monitor. Hypokalemia, replete K as needed, monitor. Monitor lytes and volume status. 3. Acute respiratory failure with hypoxemia: 2/2 Covid PNA. Currently on vent, wean as tolerated. 4. Shock: On Levophed. Monitor. 5. Covid PNA: Followed by ID. 6. L ureteral stone: S/p b/l stent. Seen by Urologist. 7. Elevated ALT & AST: Trend. 8. DM type 2: Monitor. Subjective: Patient was seen and examined at the bedside. Examination: General appearance: well-developed, appears stated age, intubated on vent HEENT: atraumatic, no icterus Neck: trachea midline Respiratory: MV sounds Heart: S1S2, regular, tachycardia, no murmur Abdomen: soft, bowel sounds heard, NT Integumentary: no obvious rash Neurologic: not responding Ext: edema : Lind catheter Subjective Date of service: 11/14/20 Principal diagnosis: Acute respiratory failure with hypoxia, sepsis Objective - Vital Signs Vital signs: Vital Signs - 12hr 11/13/20 11/13/20 11/13/20 22:10 22:20 22:30 Temperature Pulse Rate 117 H 119 H 122 H Pulse Rate [ From Monitor] Respiratory 20 20 20 Rate Blood Pressure 103/60 117/50 115/68 O2 Sat by Pulse 99 100 100 Oximetry 11/13/20 11/13/20 11/13/20 22:40 22:50 23:00 Temperature Pulse Rate 123 H 123 H 124 H Pulse Rate [ From Monitor] Respiratory 20 20 20 Rate Blood Pressure 116/59 127/53 124/64 O2 Sat by Pulse 100 100 100 Oximetry 11/13/20 11/13/20 11/13/20 23:10 23:20 23:30 Temperature Pulse Rate 124 H 124 H 125 H Pulse Rate [ From Monitor] Respiratory 20 20 20 Rate Blood Pressure 131/61 120/60 120/61 O2 Sat by Pulse 100 100 100 Oximetry 11/13/20 11/13/20 11/14/20 23:40 23:50 00:00 Temperature Pulse Rate 126 H 125 H 126 H Pulse Rate [ From Monitor] Respiratory 20 20 20 Rate Blood Pressure 117/63 121/48 129/63 O2 Sat by Pulse 100 99 99 Oximetry 11/14/20 11/14/20 11/14/20 00:10 00:20 00:24 Temperature Pulse Rate 124 H 125 H 124 H Pulse Rate [ From Monitor] Respiratory 20 21 Rate Blood Pressure 126/46 130/40 130/40 O2 Sat by Pulse 99 99 99 Oximetry 11/14/20 11/14/20 11/14/20 00:30 00:40 00:50 Temperature Pulse Rate 124 H 124 H 124 H Pulse Rate [ From Monitor] Respiratory 20 21 18 Rate Blood Pressure 125/59 119/48 119/53 O2 Sat by Pulse 99 99 99 Oximetry 11/14/20 11/14/20 11/14/20 01:00 01:10 01:20 Temperature Pulse Rate 125 H 122 H 121 H Pulse Rate [ From Monitor] Respiratory 21 21 21 Rate Blood Pressure 124/58 129/54 135/53 O2 Sat by Pulse 99 98 100 Oximetry 11/14/20 11/14/20 11/14/20 01:30 01:40 01:50 Temperature Pulse Rate 122 H 123 H 124 H Pulse Rate [ From Monitor] Respiratory 20 22 22 Rate Blood Pressure 124/40 130/46 119/47 O2 Sat by Pulse 100 100 100 Oximetry 11/14/20 11/14/20 11/14/20 02:00 02:10 02:12 Temperature 98.8 F Pulse Rate 124 H 124 H Pulse Rate [ From Monitor] Respiratory 22 22 Rate Blood Pressure 114/50 117/50 O2 Sat by Pulse 99 99 Oximetry 11/14/20 11/14/20 11/14/20 02:20 02:30 02:40 Temperature Pulse Rate 123 H 123 H 125 H Pulse Rate [ From Monitor] Respiratory 22 22 22 Rate Blood Pressure 126/57 119/63 115/54 O2 Sat by Pulse 99 99 98 Oximetry 11/14/20 11/14/20 11/14/20 02:50 03:00 03:10 Temperature Pulse Rate 124 H 125 H 124 H Pulse Rate [ From Monitor] Respiratory 21 20 20 Rate Blood Pressure 117/50 127/61 126/52 O2 Sat by Pulse 99 99 99 Oximetry 11/14/20 11/14/20 11/14/20 03:20 03:30 03:40 Temperature Pulse Rate 124 H 125 H 125 H Pulse Rate [ From Monitor] Respiratory 22 23 20 Rate Blood Pressure 118/55 129/58 122/55 O2 Sat by Pulse 98 99 99 Oximetry 11/14/20 11/14/20 11/14/20 03:50 04:00 04:10 Temperature Pulse Rate 124 H 124 H 124 H Pulse Rate [ 124 H From Monitor] Respiratory 22 Rate Blood Pressure 122/64 120/53 134/47 O2 Sat by Pulse 99 99 99 Oximetry 11/14/20 11/14/20 11/14/20 04:20 04:30 04:40 Temperature Pulse Rate 124 H 124 H 124 H Pulse Rate [ From Monitor] Respiratory 21 Rate Blood Pressure 130/55 126/57 125/60 O2 Sat by Pulse 98 99 99 Oximetry 11/14/20 11/14/20 11/14/20 04:46 04:50 04:58 Temperature 99.1 F Pulse Rate 123 H 123 H Pulse Rate [ From Monitor] Respiratory 21 Rate Blood Pressure 125/53 126/60 O2 Sat by Pulse 98 98 Oximetry 11/14/20 11/14/20 11/14/20 05:00 05:11 05:21 Temperature Pulse Rate 124 H 114 H 113 H Pulse Rate [ From Monitor] Respiratory 22 23 26 H Rate Blood Pressure 117/56 77/41 93/29 O2 Sat by Pulse 98 96 95 Oximetry 11/14/20 11/14/20 11/14/20 05:31 05:40 05:50 Temperature Pulse Rate 114 H 119 H 121 H Pulse Rate [ From Monitor] Respiratory 27 H 15 21 Rate Blood Pressure 93/29 102/53 118/54 O2 Sat by Pulse 94 96 98 Oximetry 11/14/20 11/14/20 11/14/20 06:00 06:10 06:21 Temperature Pulse Rate 122 H 122 H 118 H Pulse Rate [ From Monitor] Respiratory 21 22 Rate Blood Pressure 127/52 138/51 100/49 O2 Sat by Pulse 98 99 97 Oximetry 11/14/20 11/14/20 11/14/20 06:30 06:40 06:50 Temperature Pulse Rate 119 H 120 H 120 H Pulse Rate [ From Monitor] Respiratory 22 21 21 Rate Blood Pressure 95/53 111/53 113/47 O2 Sat by Pulse 98 98 98 Oximetry 11/14/20 11/14/20 11/14/20 07:00 07:10 07:20 Temperature 98.4 F Pulse Rate 120 H 120 H 120 H Pulse Rate [ From Monitor] Respiratory 21 20 21 Rate Blood Pressure 95/54 104/53 106/42 O2 Sat by Pulse 98 98 95 Oximetry 11/14/20 11/14/20 11/14/20 07:31 07:40 07:50 Temperature Pulse Rate 121 H 121 H 120 H Pulse Rate [ From Monitor] Respiratory 21 21 20 Rate Blood Pressure 100/41 103/48 89/48 O2 Sat by Pulse 98 98 98 Oximetry 11/14/20 11/14/20 11/14/20 08:00 08:10 08:20 Temperature Pulse Rate 121 H 120 H 120 H Pulse Rate [ From Monitor] Respiratory 20 20 22 Rate Blood Pressure 100/55 91/53 102/51 O2 Sat by Pulse 98 98 98 Oximetry 11/14/20 11/14/20 08:30 08:40 Temperature Pulse Rate 121 H 121 H Pulse Rate [ From Monitor] Respiratory 20 22 Rate Blood Pressure 106/55 106/50 O2 Sat by Pulse 98 97 Oximetry - Lab 11/14/20 04:35 11/14/20 04:35 Most recent lab results ABG pH 7.215 (7.320-7.450) L 11/14/20 04:25 ABG O2 Saturation 96.7 (0-100) 11/14/20 04:25 Calcium 7.3 mg/dL (8.4-10.2) L 11/14/20 04:35 Medications & Allergies - Medications Allergies/Adverse Reactions: Allergies morphine Adverse Reaction (Verified 05/26/13 19:22) Nausea Home Medications: Home Medications Medication Instructions Recorded Confirmed Last Taken Type Acetaminophen [Tylenol] 325 mg PO DAILY #10 tablet 05/26/13 10/17/14 10/16/14 Rx Baclofen [Lioresal] 10 mg PO TID PRN 05/26/13 10/17/14 10/16/14 History Diazepam [Valium] 10 mg PO BID 05/26/13 10/17/14 10/16/14 History PARoxetine [Paxil] 10 mg PO DAILY 05/26/13 10/17/14 10/16/14 19:00 History Quetiapine Fumarate [SEROquel XR] 200 mg PO DAILY 05/26/13 10/17/14 10/16/14 History rOPINIRole [Requip] 1 mg PO QHS 05/26/13 10/17/14 10/16/14 19:00 History QUEtiapine [SEROquel] 200 mg PO QHS 05/28/13 10/17/14 10/16/14 19:00 History Famotidine [Pepcid] 10 mg PO BID #60 tablet 06/02/13 10/17/14 10/16/14 Rx levoFLOXacin [Levaquin] 750 mg PO QDAY #7 tablet 06/02/13 10/17/14 10/16/14 Rx metroNIDAZOLE [Flagyl] 500 mg PO Q8HR #30 tablet 06/02/13 10/17/14 10/16/14 Rx Hydromorphone HCl [Dilaudid] 4 mg PO 10/17/14 10/17/14 10/16/14 History Oxycodone HCl/Acetaminophen 1 each PO Q6HR PRN 10/17/14 10/17/14 10/16/14 History [Percocet 10-325 mg] Oxycodone HCl/Acetaminophen 1 each PO Q6HR PRN #30 tablet 10/18/14 Unknown Rx [Percocet 10-325 mg] Active Medications: Generic Name Dose Route Start Last Admin Trade Name Freq PRN Reason Stop Dose Admin Acetaminophen 650 mg 11/11/20 22:11 Acetaminophen 325 Mg Tab PO Q4H PRN Pain MILD(1-3)/Fever >100.5/ERAZO Albuterol 2.5 mg 11/13/20 07:40 Albuterol 2.5 Mg/3 Ml Nebu IH Q4HRT PRN Shortness Of Breath Albuterol/Ipratropium 1 ampul 11/13/20 08:00 11/13/20 21:59 Ipratropium/Albuterol Sulfate 3 Ml Ampul.Neb IH Not Given QIDRT CARLOS Lipase/Protease/Amylase 1 each 11/13/20 17:32 Lipase 10,500/Protease 25,000/Amylase 43,750 (Units) Dr Weiss FEEDTUBE PRN PRN For Clogged Feeding Tube Ascorbic Acid 500 mg 11/13/20 22:00 11/14/20 09:11 Ascorbic Acid 500 Mg Tab PO 500 mg BID CARLOS Administration Baclofen 10 mg 11/11/20 22:09 Baclofen 10 Mg Tab PO TID PRN MUSCLE SPASMS & PAIN Dexamethasone 6 mg 11/13/20 10:00 11/14/20 09:11 Dexamethasone 4 Mg/Ml Vial IV 11/22/20 10:01 6 mg Q24HR CARLOS Administration Dextrose 50 ml 11/13/20 16:43 11/14/20 01:12 Dextrose 50% In Water (25gm) 50 Ml Syringe IV 50 ml Q30MIN PRN Administration Hypoglycemia Protocol Fentanyl 50 mcg 11/13/20 05:33 Fentanyl 100 Mcg/2 Ml Inj IV Q10MIN PRN ANALGESIA Heparin Sodium (Porcine) 3,000 unit 11/13/20 05:04 Heparin 10,000 Units/10 Ml Vial 40 unit/kg (3000 unit) IV Q6H PRN Anti-Xa Assay < 0.1 units/ml Hydromorphone HCl 0.5 mg 11/11/20 22:11 Hydromorphone 1 Mg/1 Ml Inj IV Q3H PRN Pain , Severe (7-10) Hydrophilic Ointment 1 applic 11/13/20 05:33 Lip Therapy Vaseline TP Q2HR PRN Dry Lips Heparin Sodium/Sodium Chloride 25,000 unit in 500 mls @ 23 mls/hr 11/13/20 06:00 11/14/20 09:13 Heparin/ 0.45% Nacl-25,000 Unit/500 Ml IV 0 units/hr TITR CARLOS 0 mls/hr Titration Protocol 1,150 UNITS/HR Fentanyl Citrate 2,000 mcg in 100 mls @ 3.81 mls/hr 11/13/20 06:00 11/13/20 21:41 Fentanyl Drip Premix IV 1 mcg/kg/hr TITR CARLOS 3.81 mls/hr Administration Protocol 1 MCG/KG/HR NORepinephrine/NS 8 MG-250 ML 8 mg in 250 mls @ 3.75 mls/hr 11/13/20 15:00 11/14/20 05:59 Norepinephrine/Ns 8 Mg-250 Ml (Double Conc) IV 16 mcg/min TITRATE CARLOS 30 mls/hr Titration Protocol 2 MCG/MIN Dextrose 1,000 mls @ 42 mls/hr 11/14/20 09:00 11/14/20 09:11 D5w IV 42 mls/hr DIRECT CARLOS Administration Insulin Human Regular 0 units 11/13/20 17:00 11/14/20 05:56 Insulin Regular, Human 100 Units/1 Ml SUB-Q Not Given Q6H CARLOS Protocol Metoclopramide HCl 10 mg 11/11/20 22:11 Metoclopramide 10 Mg/2 Ml Inj IV Q6H PRN Nausea And Vomiting Multi-Ingred Cream/Lotion/Oil/Oint 1 applic 11/13/20 05:33 Mineral Oil/Petrolatum, White Ophth Oint 3.5 Gm OU Q4HR PRN Dry Eye(s) Ondansetron HCl 4 mg 11/11/20 22:11 Ondansetron 4 Mg/2 Ml Inj IV Q3H PRN Nausea And Vomiting Oxycodone/Acetaminophen 1 tab 11/11/20 22:11 Oxycodone /Acetaminophen 5-325mg Tab PO Q6H PRN Pain, Moderate (4-6) Pantoprazole Sodium 40 mg 11/13/20 14:00 11/14/20 09:10 Pantoprazole 40 Mg Inj IV 40 mg BID CARLOS Administration Paroxetine HCl 10 mg 11/12/20 10:00 11/14/20 09:11 Paroxetine 10 Mg Tab PO 10 mg DAILY CARLOS Administration Ropinirole HCl 1 mg 11/12/20 22:00 11/13/20 21:41 Ropinirole 1 Mg Tab PO 1 mg QHS CARLOS Administration Simple Syrup 15 ml 11/13/20 17:32 Simple Syrup 15 Ml FEEDTUBE PRN PRN Hypoglycemia Simple Syrup 30 ml 11/13/20 17:32 Simple Syrup 15 Ml FEEDTUBE PRN PRN Hypoglycemia Sodium Bicarbonate 325 mg 11/13/20 17:32 Sodium Bicarbonate 325 Mg Tab FEEDTUBE PRN PRN For Clogged Feeding Tube Sodium Chloride 10 ml 11/12/20 10:00 11/14/20 09:10 Sodium Chloride 0.9% 10 Ml Flush Syringe IV 10 ml BID CARLOS Administration Sodium Chloride 10 ml 11/11/20 22:11 Sodium Chloride 0.9% 10 Ml Flush Syringe IV PRN PRN LINE FLUSH Zinc Sulfate 220 mg 11/13/20 22:00 11/14/20 09:10 Zinc Sulfate 220 Mg Cap PO 220 mg BID CARLOS Administration
[2020-11-14 10:19] LABS: Creatinine,Urine 80.2 mg/dL (0.1-20.0)
[2020-11-14] MEDS: HEPARIN/ 0.45% NACL DRIP 25,000 UNIT/500 ML BAG IV SCH (12:30)
[2020-11-14] MEDS: LACTATED RINGERS 1,000 ML IV SCH (14:18)
--- NOTE | 2020-11-14 14:41 | Post Anesthesia Evaluation ---
- Post Anesthesia Evaluation Patient Participated: No Airway Patent: Yes (patient intubated, sedated. ) Stable Respiratory Function: Yes Nausea/Vomiting: No Temp > 96.8F: Yes Pain Manageable: Yes Adequeate Hydration: Yes Anesthesia Complications: No Block Receding Appropriately: Not Applicable Patient on Ventilator: Yes (Spoke to nurse caring for patient. Patient stable on norepi infusion. )
--- NOTE | 2020-11-14 15:08 | Progress Note ---
Assessment and Plan Cultures: Blood culture no growth so far Covid PCR: Positive A/P: 85-year-old female past medical history obesity, chronic low back pain, depression admitted with COVID-19 #Severe COVID-19 pneumonia: Patient presented with a week of symptoms, chest x- ray with diffuse bilateral infiltrates, admission O2 sats 89-90% on room air. Inflammatory markers elevated #Acute hypoxemic respiratory failure: Likely secondary to COVID-19 infection. Currently on the vent. #KATLYN: renally dose medications. not a candidate for remdesivir #nephrolithiasis: with associated hydronephrosis. Recs: -Dexamethasone 6 mg IV/PO daily for 10 days -Not a remdesivir candidate due to renal failure -s/p Actemra -Obtain q48-72h inflammatory markers - ferritin, Ddimer, CRP, LDH -Stopped antibiotics as normal procalcitonin -Anticoagulation per hospital protocol -Proning as able Thank you for the consult, we will continue to follow. Araceli Chacon MD [facility] O: [phone] F: [phone] Subjective Date of service: 11/14/20 Principal diagnosis: Acute respiratory failure with hypoxia, sepsis Interval history: Afebrile, normal white count. Had cysto done with bilateral stent placement. Objective - Exam Narrative Exam: Physical exam deferred to reduce risk of transmission of COVID-19. Please refer to primary team's note. - Constitutional Vitals: Vital Signs Temp Pulse Resp BP Pulse Ox 98.4 F 120 H 22 103/50 96 11/14/20 12:00 11/14/20 15:00 11/14/20 15:00 11/14/20 15:00 11/14/20 15:00 Temperature -Last 24 Hours Temperature 98.4 F Temperature 98.4 F Temperature 98.4 F Temperature 98.4 F Temperature 99.1 F Temperature 98.8 F Temperature 97.9 F - Labs CBC & Chem 7: 11/14/20 04:35 11/14/20 04:35 Labs: Abnormal lab results 11/13/20 11/14/20 11/14/20 Range/Units 21:50 00:50 04:25 Hct (30.3-42.9) % RDW (13.2-15.2) % Heparin Anti-Xa Level 0.91 H (0.3-0.7) U.I./ml ABG pH 7.215 L (7.320-7.450) ABG Sodium 147.3 H (136.0-145.0) mmol/L ABG Chloride 119.0 H (98-107) mmol/L ABG Glucose 156 H (65-95) mg/dL Sodium (137-145) mmol/L Chloride (98-107) mmol/L Carbon Dioxide (22-30) mmol/L BUN (7-17) mg/dL Creatinine (0.6-1.2) mg/dL Glucose (65-100) mg/dL POC Glucose 59 L (70-105) mg/dL Calcium (8.4-10.2) mg/dL C-Reactive Protein (0.00-1.30) mg/dL Arterial Blood Glucose 156 H (65-95) mg/dL Arterial Blood Ionized Calcium 4.3 L (4.6-5.3) mg/dL Urine WBC (Auto) (0.0-6.0) /HPF U Epithel Cells (Auto) (0-13.0) /HPF Urine Creatinine (0.1-20.0) mg/dL 11/14/20 11/14/20 11/14/20 Range/Units 04:35 04:35 06:15 Hct 43.9 H (30.3-42.9) % RDW 15.3 H (13.2-15.2) % Heparin Anti-Xa Level (0.3-0.7) U.I./ml ABG pH (7.320-7.450) ABG Sodium (136.0-145.0) mmol/L ABG Chloride (98-107) mmol/L ABG Glucose (65-95) mg/dL Sodium 151 H D (137-145) mmol/L Chloride 116.8 H (98-107) mmol/L Carbon Dioxide 18 L (22-30) mmol/L BUN 64 H (7-17) mg/dL Creatinine 2.1 H (0.6-1.2) mg/dL Glucose 148 H (65-100) mg/dL POC Glucose (70-105) mg/dL Calcium 7.3 L (8.4-10.2) mg/dL C-Reactive Protein 38.00 H (0.00-1.30) mg/dL Arterial Blood Glucose (65-95) mg/dL Arterial Blood Ionized Calcium (4.6-5.3) mg/dL Urine WBC (Auto) > 182.0 H (0.0-6.0) /HPF U Epithel Cells (Auto) 24.0 H (0-13.0) /HPF Urine Creatinine (0.1-20.0) mg/dL 11/14/20 11/14/20 11/14/20 Range/Units 06:15 06:15 12:01 Hct (30.3-42.9) % RDW (13.2-15.2) % Heparin Anti-Xa Level 1.16 H (0.3-0.7) U.I./ml ABG pH (7.320-7.450) ABG Sodium (136.0-145.0) mmol/L ABG Chloride (98-107) mmol/L ABG Glucose (65-95) mg/dL Sodium (137-145) mmol/L Chloride (98-107) mmol/L Carbon Dioxide (22-30) mmol/L BUN (7-17) mg/dL Creatinine (0.6-1.2) mg/dL Glucose (65-100) mg/dL POC Glucose 107 H (70-105) mg/dL Calcium (8.4-10.2) mg/dL C-Reactive Protein (0.00-1.30) mg/dL Arterial Blood Glucose (65-95) mg/dL Arterial Blood Ionized Calcium (4.6-5.3) mg/dL Urine WBC (Auto) (0.0-6.0) /HPF U Epithel Cells (Auto) (0-13.0) /HPF Urine Creatinine 80.2 H (0.1-20.0) mg/dL
--- NOTE | 2020-11-14 16:00 | Progress Note ---
Assessment and Plan Acute hypoxemic respiratory failure on MVS COVID-19 infection Pneumonia Severe Sepsis Acute toxic metabolic encephalopathy Inadvertently placed left carotid line Acute kidney injury Nephrolithiasis Leukocytosis Metabolic acidosis Mild hypernatremia (Discussed her grave illness with her daughter Betsy at length with RN girma whipple in as well as answered her questions; i apologized for the lack of consistent communication she mentioned explaining the increased work-load with COVID-19 patients) - reduced FiO2 to 90% - begin LR @ 75 cc/hr X 2 liters re: Sepsis / hypotension - get am Lactic acid level - continue care as below otherwise; - continue Daily SAT and SBT assessment as tolerated - continue to wean supplemental oxygen for target O2 sat's > 90% acutely - VAP bundle addressed - continue lung protective strategies - continue bronchodilators with pulmonary hygiene per RT - wean per pulmonary driven protocols otherwise - continue accuchecks with glycemic control per SSI (While critically ill target blood glucose of 140-180 mg/dL; avoid hypoglycemia) - sedation prn for target RASS 0 to -1 - avoid nephrotoxins, renally dose all medications - continue to avoid benzodiazepine's, reduce the possibility of delirium - AB's per ID rec's - prn analgesia per CPOT score - Maintenance of sleep-wake cycle, avoid delirium - continue enteral nutritional support at goal rate as tolerated - G.I. & VTE prophylaxis - PT/OT/ROM exercises - continue mobility protocols for pressure ulcer prophylaxis - Monitor hemodynamics closely - continue other care per attending / other consultants - discharge planning ongoing concurrently COVID SPECIFIC INTERVENTIONS - Remdesivir as per ID/Pulmonary developed protocols - continue systemic steroids for severe COVID-19 infection - s/p Actemra - follow repeat COVID tests results - zinc and vitamin C supplementation - Monitor inflammatory markers per facility protocol - ferritin, Ddimer, CRP - therapeutic anticoagulation per system Protocol based on d-dimer and clinical considerations (re: Carotid srtery thrombus) - Continue contact and airborne isolation .... Re-evaluate in am & prn CONDITION: CRITICAL PROGNOSIS: GUARDED CODE STATUS: FULL CODE The high probability of a clinically significant, sudden or life-threatening deterioration of the [respiratory, cardiovascular, renal & neurologic] system(s) required my full and direct attention, intervention and personal management. The aggregate critical care time was [45] minutes without overlap. Time includes spent on; [x] Data Review and interpretation [x] Patient assessment and monitoring of vital signs [x] Documentation [x] Medication orders and management Subjective Date of service: 11/14/20 Principal diagnosis: Ac hypoxemic resp failure; COVID-19 infxn; Pneumonia; KATLYN; AMS; Sepsis Interval history: Patient is seen today for: Acute hypoxemic respiratory failure; COVID-19 infxn; Pneumonia; Acute toxic metabolic encephalopathy; Carotid Artery thrombus; KATLYN; Leukocytosis Seen and examined at bedside; 24hour events reviewed; nursing and respiratory care staff consulted; no adverse overnight events reported to me; resting in bed; remains on MVS; remains septic; on Levophed @ 16 magdalene's/min; opens eyes to name calling but follows no other commands; care plan discussed at length with daughter Betsy over the phone ([phone]) Objective Vital Signs - 12hr 11/14/20 11/14/20 11/14/20 04:00 04:10 04:20 Temperature Pulse Rate 124 H 124 H 124 H Pulse Rate [ 124 H From Monitor] Respiratory 21 22 21 Rate Blood Pressure 120/53 134/47 130/55 O2 Sat by Pulse 99 99 98 Oximetry 11/14/20 11/14/20 11/14/20 04:30 04:40 04:46 Temperature 99.1 F Pulse Rate 124 H 124 H Pulse Rate [ From Monitor] Respiratory 21 21 Rate Blood Pressure 126/57 125/60 O2 Sat by Pulse 99 99 Oximetry 11/14/20 11/14/20 11/14/20 04:50 04:58 05:00 Temperature Pulse Rate 123 H 123 H 124 H Pulse Rate [ From Monitor] Respiratory 21 22 Rate Blood Pressure 125/53 126/60 117/56 O2 Sat by Pulse 98 98 98 Oximetry 11/14/20 11/14/20 11/14/20 05:11 05:21 05:31 Temperature Pulse Rate 114 H 113 H 114 H Pulse Rate [ From Monitor] Respiratory 23 26 H 27 H Rate Blood Pressure 77/41 93/29 93/29 O2 Sat by Pulse 96 95 94 Oximetry 11/14/20 11/14/20 11/14/20 05:40 05:50 06:00 Temperature Pulse Rate 119 H 121 H 122 H Pulse Rate [ From Monitor] Respiratory 15 21 21 Rate Blood Pressure 102/53 118/54 127/52 O2 Sat by Pulse 96 98 98 Oximetry 11/14/20 11/14/20 11/14/20 06:10 06:21 06:30 Temperature Pulse Rate 122 H 118 H 119 H Pulse Rate [ From Monitor] Respiratory 21 22 22 Rate Blood Pressure 138/51 100/49 95/53 O2 Sat by Pulse 99 97 98 Oximetry 11/14/20 11/14/20 11/14/20 06:40 06:50 07:00 Temperature 98.4 F Pulse Rate 120 H 120 H 120 H Pulse Rate [ From Monitor] Respiratory 21 21 21 Rate Blood Pressure 111/53 113/47 95/54 O2 Sat by Pulse 98 98 98 Oximetry 11/14/20 11/14/20 11/14/20 07:10 07:20 07:31 Temperature Pulse Rate 120 H 120 H 121 H Pulse Rate [ From Monitor] Respiratory 20 21 21 Rate Blood Pressure 104/53 106/42 100/41 O2 Sat by Pulse 98 95 98 Oximetry 11/14/20 11/14/20 11/14/20 07:40 07:50 08:00 Temperature Pulse Rate 121 H 120 H 120 H Pulse Rate [ From Monitor] Respiratory 21 20 20 Rate Blood Pressure 103/48 89/48 91/57 O2 Sat by Pulse 98 98 95 Oximetry 11/14/20 11/14/20 11/14/20 08:01 08:10 08:20 Temperature Pulse Rate 120 H 120 H 120 H Pulse Rate [ 102 H From Monitor] Respiratory 23 20 22 Rate Blood Pressure 91/53 102/51 O2 Sat by Pulse 99 98 98 Oximetry 11/14/20 11/14/20 11/14/20 08:30 08:40 08:50 Temperature Pulse Rate 121 H 121 H 121 H Pulse Rate [ From Monitor] Respiratory 20 22 24 Rate Blood Pressure 106/55 106/50 108/46 O2 Sat by Pulse 98 97 98 Oximetry 11/14/20 11/14/20 11/14/20 09:00 09:10 09:20 Temperature Pulse Rate 120 H 121 H 121 H Pulse Rate [ From Monitor] Respiratory 22 22 23 Rate Blood Pressure 102/51 115/46 94/57 O2 Sat by Pulse 97 98 Oximetry 11/14/20 11/14/20 11/14/20 09:30 09:40 09:50 Temperature Pulse Rate 119 H 121 H 120 H Pulse Rate [ From Monitor] Respiratory 24 24 24 Rate Blood Pressure 85/45 95/48 107/40 O2 Sat by Pulse 96 96 Oximetry 11/14/20 11/14/20 11/14/20 10:00 10:10 10:21 Temperature Pulse Rate 120 H 119 H 120 H Pulse Rate [ From Monitor] Respiratory 24 23 24 Rate Blood Pressure 100/52 98/54 122/56 O2 Sat by Pulse 96 96 96 Oximetry 11/14/20 11/14/20 11/14/20 10:30 10:40 10:50 Temperature Pulse Rate 121 H 121 H 121 H Pulse Rate [ From Monitor] Respiratory 22 23 23 Rate Blood Pressure 111/53 104/48 100/52 O2 Sat by Pulse 96 95 95 Oximetry 11/14/20 11/14/20 11/14/20 11:00 11:10 11:20 Temperature 98.4 F Pulse Rate 120 H 121 H 121 H Pulse Rate [ From Monitor] Respiratory 24 24 22 Rate Blood Pressure 91/57 94/49 101/54 O2 Sat by Pulse 95 94 94 Oximetry 11/14/20 11/14/20 11/14/20 11:28 11:30 11:40 Temperature Pulse Rate 121 H 120 H 117 H Pulse Rate [ From Monitor] Respiratory 24 26 H Rate Blood Pressure 100/42 100/47 93/49 O2 Sat by Pulse 94 94 94 Oximetry 11/14/20 11/14/20 11/14/20 11:50 12:00 12:08 Temperature 98.4 F Pulse Rate 120 H 121 H 121 H Pulse Rate [ From Monitor] Respiratory 24 24 Rate Blood Pressure 111/49 101/56 O2 Sat by Pulse 94 95 Oximetry 11/14/20 11/14/20 11/14/20 12:10 12:20 12:30 Temperature Pulse Rate 121 H 121 H 121 H Pulse Rate [ From Monitor] Respiratory 25 H 23 24 Rate Blood Pressure 106/49 108/51 107/50 O2 Sat by Pulse 95 94 95 Oximetry 11/14/20 11/14/20 11/14/20 12:32 12:40 12:50 Temperature Pulse Rate 121 H 120 H Pulse Rate [ 121 H From Monitor] Respiratory 22 23 25 H Rate Blood Pressure 107/54 101/51 O2 Sat by Pulse 95 95 95 Oximetry 11/14/20 11/14/20 11/14/20 13:00 13:10 13:20 Temperature Pulse Rate 121 H 120 H 120 H Pulse Rate [ From Monitor] Respiratory 22 25 H 25 H Rate Blood Pressure 105/50 106/53 108/51 O2 Sat by Pulse 95 95 95 Oximetry 11/14/20 11/14/20 11/14/20 13:30 13:40 13:50 Temperature Pulse Rate 121 H 121 H 117 H Pulse Rate [ From Monitor] Respiratory 22 22 26 H Rate Blood Pressure 107/47 103/53 105/50 O2 Sat by Pulse 95 96 95 Oximetry 11/14/20 11/14/20 11/14/20 14:00 14:10 14:20 Temperature Pulse Rate 120 H 120 H 120 H Pulse Rate [ From Monitor] Respiratory 24 23 23 Rate Blood Pressure 103/48 98/51 108/59 O2 Sat by Pulse 95 96 95 Oximetry 11/14/20 11/14/20 11/14/20 14:30 14:40 14:50 Temperature Pulse Rate 120 H 120 H 120 H Pulse Rate [ From Monitor] Respiratory 23 23 21 Rate Blood Pressure 107/55 102/48 109/51 O2 Sat by Pulse 96 96 96 Oximetry 11/14/20 11/14/20 15:00 15:35 Temperature Pulse Rate 120 H 120 H Pulse Rate [ From Monitor] Respiratory 22 Rate Blood Pressure 103/50 103/50 O2 Sat by Pulse 96 96 Oximetry Constitutional: no acute distress, other (elderly obese female with mildly increased respiratory effort at rest on MVS) Eyes: non-icteric ENT: oropharynx moist, other (ETT 24 cm NYA) Neck: supple, no lymphadenopathy, no JVD Effort: mildly labored Ascultation: Bilateral: diminished breath sounds, rhonchi (scant) Percussion: Bilateral: not dull Cardiovascular: regular rate and rhythm Gastrointestinal: normoactive bowel sounds, soft, non-tender, non-distended (protuberant) Integumentary: normal Extremities: no cyanosis, no edema, pink and warm, pulses normal Neurologic: non-focal exam (grossly), pupils equal and round, unable to assess Psychiatric: other (unable to assess re: AMS) CBC and BMP: 11/14/20 04:35 11/14/20 04:35 ABG, PT/INR, D-dimer: ABG ABG pH 7.215 (7.320-7.450) L 11/14/20 04:25 POC ABG pCO2 36.7 mmHg (32.0-48.0) 11/14/20 04:25 POC ABG pO2 93.2 mmHg (83-108) 11/14/20 04:25 POC ABG HCO3 14.5 11/14/20 04:25 ABG O2 Saturation 96.7 (0-100) 11/14/20 04:25 PT/INR, D-dimer PT 16.0 Sec. (12.2-14.9) H 11/13/20 09:51 INR 1.23 (0.87-1.13) H 11/13/20 09:51 D-Dimer 5682.19 ng/mlDDU (0-234) H 11/13/20 09:51 Abnormal lab findings: Abnormal Labs 11/11/20 11/11/20 11/11/20 13:39 13:39 16:59 WBC 19.5 H RBC 5.93 H Hgb 17.0 H Hct 50.6 H RDW Plt Count 449 H Lymph % (Auto) 12.0 L [place] % (Auto) 7.7 H Lymph # (Auto) [place] # (Auto) 1.5 H Seg Neutrophils % 80.0 H Seg Neutrophils # 15.6 H PT INR D-Dimer 1525.92 H Heparin Anti-Xa Level ABG pH POC ABG pO2 ABG Oxyhemoglobin ABG Sodium ABG Potassium ABG Chloride ABG Glucose Carboxyhemoglobin Sodium Potassium 3.5 L Chloride 97.3 L Carbon Dioxide BUN 30 H Creatinine 0.5 L Glucose 128 H POC Glucose Hemoglobin A1c Calcium Ferritin AST ALT Lactate Dehydrogenase C-Reactive Protein Total Protein Albumin 3.8 L Arterial Blood Glucose Arterial Blood Ionized Calcium Urine WBC (Auto) U Epithel Cells (Auto) Urine Creatinine Coronavirus (PCR) 11/11/20 11/11/20 11/11/20 16:59 17:12 Unknown WBC RBC Hgb Hct RDW Plt Count Lymph % (Auto) [place] % (Auto) Lymph # (Auto) [place] # (Auto) Seg Neutrophils % Seg Neutrophils # PT INR D-Dimer Heparin Anti-Xa Level ABG pH 7.501 H POC ABG pO2 55.0 L ABG Oxyhemoglobin 89.5 L ABG Sodium ABG Potassium 3.2 L ABG Chloride ABG Glucose 131 H Carboxyhemoglobin Sodium Potassium Chloride Carbon Dioxide BUN Creatinine Glucose 117 H POC Glucose Hemoglobin A1c Calcium Ferritin AST ALT Lactate Dehydrogenase 204 H C-Reactive Protein Total Protein Albumin Arterial Blood Glucose 131 H Arterial Blood Ionized Calcium Urine WBC (Auto) U Epithel Cells (Auto) Urine Creatinine Coronavirus (PCR) Positive A 11/12/20 11/12/20 11/12/20 05:07 05:07 05:07 WBC 16.7 H RBC 5.74 H Hgb 16.6 H Hct 50.3 H RDW Plt Count 450 H Lymph % (Auto) 12.1 L [place] % (Auto) 7.5 H Lymph # (Auto) [place] # (Auto) 1.3 H Seg Neutrophils % 77.9 H Seg Neutrophils # 13.0 H PT INR D-Dimer Heparin Anti-Xa Level ABG pH POC ABG pO2 ABG Oxyhemoglobin ABG Sodium ABG Potassium ABG Chloride ABG Glucose Carboxyhemoglobin Sodium 147 H Potassium Chloride Carbon Dioxide 35 H D BUN 34 H Creatinine Glucose 117 H POC Glucose Hemoglobin A1c 6.6 H Calcium 11.1 H Ferritin AST ALT Lactate Dehydrogenase C-Reactive Protein Total Protein Albumin Arterial Blood Glucose Arterial Blood Ionized Calcium Urine WBC (Auto) U Epithel Cells (Auto) Urine Creatinine Coronavirus (PCR) 11/12/20 11/13/20 11/13/20 23:58 01:36 04:00 WBC RBC Hgb Hct RDW Plt Count Lymph % (Auto) [place] % (Auto) Lymph # (Auto) [place] # (Auto) Seg Neutrophils % Seg Neutrophils # PT INR D-Dimer Heparin Anti-Xa Level ABG pH POC ABG pO2 ABG Oxyhemoglobin ABG Sodium 147.3 H ABG Potassium 3.2 L ABG Chloride 109.0 H ABG Glucose 118 H Carboxyhemoglobin 0.3 L Sodium Potassium 3.1 L Chloride Carbon Dioxide BUN 64 H Creatinine 2.2 H D Glucose 105 H POC Glucose 181 H Hemoglobin A1c Calcium 8.3 L D Ferritin AST 366 H ALT 316 H Lactate Dehydrogenase C-Reactive Protein Total Protein 5.4 L D Albumin 2.5 L Arterial Blood Glucose 118 H Arterial Blood Ionized Calcium Urine WBC (Auto) U Epithel Cells (Auto) Urine Creatinine Coronavirus (PCR) 11/13/20 11/13/20 11/13/20 05:23 08:22 09:51 WBC 15.9 H RBC Hgb Hct 44.4 H RDW Plt Count Lymph % (Auto) 5.7 L [place] % (Auto) 9.0 H Lymph # (Auto) 0.9 L [place] # (Auto) 1.4 H Seg Neutrophils % 85.3 H Seg Neutrophils # 13.6 H PT 16.0 H INR 1.23 H D-Dimer Heparin Anti-Xa Level ABG pH 7.243 L POC ABG pO2 82.0 L ABG Oxyhemoglobin 93.5 L ABG Sodium 146.6 H ABG Potassium 2.8 L ABG Chloride 114.0 H ABG Glucose 113 H Carboxyhemoglobin 0.4 L Sodium Potassium Chloride Carbon Dioxide BUN Creatinine Glucose POC Glucose Hemoglobin A1c Calcium Ferritin AST ALT Lactate Dehydrogenase C-Reactive Protein Total Protein Albumin Arterial Blood Glucose 113 H Arterial Blood Ionized Calcium Urine WBC (Auto) U Epithel Cells (Auto) Urine Creatinine Coronavirus (PCR) 11/13/20 11/13/20 11/13/20 09:51 09:51 09:51 WBC RBC Hgb Hct RDW Plt Count Lymph % (Auto) [place] % (Auto) Lymph # (Auto) [place] # (Auto) Seg Neutrophils % Seg Neutrophils # PT INR D-Dimer 5682.19 H Heparin Anti-Xa Level ABG pH POC ABG pO2 ABG Oxyhemoglobin ABG Sodium ABG Potassium ABG Chloride ABG Glucose Carboxyhemoglobin Sodium Potassium Chloride Carbon Dioxide BUN Creatinine Glucose 104 H POC Glucose Hemoglobin A1c Calcium Ferritin 1003.0 H AST ALT Lactate Dehydrogenase 1022 H C-Reactive Protein 5.50 H Total Protein Albumin Arterial Blood Glucose Arterial Blood Ionized Calcium Urine WBC (Auto) U Epithel Cells (Auto) Urine Creatinine Coronavirus (PCR) 11/13/20 11/14/20 11/14/20 21:50 00:50 04:25 WBC RBC Hgb Hct RDW Plt Count Lymph % (Auto) [place] % (Auto) Lymph # (Auto) [place] # (Auto) Seg Neutrophils % Seg Neutrophils # PT INR D-Dimer Heparin Anti-Xa Level 0.91 H ABG pH 7.215 L POC ABG pO2 ABG Oxyhemoglobin ABG Sodium 147.3 H ABG Potassium ABG Chloride 119.0 H ABG Glucose 156 H Carboxyhemoglobin Sodium Potassium Chloride Carbon Dioxide BUN Creatinine Glucose POC Glucose 59 L Hemoglobin A1c Calcium Ferritin AST ALT Lactate Dehydrogenase C-Reactive Protein Total Protein Albumin Arterial Blood Glucose 156 H Arterial Blood Ionized Calcium 4.3 L Urine WBC (Auto) U Epithel Cells (Auto) Urine Creatinine Coronavirus (PCR) 11/14/20 11/14/20 11/14/20 04:35 04:35 06:15 WBC RBC Hgb Hct 43.9 H RDW 15.3 H Plt Count Lymph % (Auto) [place] % (Auto) Lymph # (Auto) [place] # (Auto) Seg Neutrophils % Seg Neutrophils # PT INR D-Dimer Heparin Anti-Xa Level ABG pH POC ABG pO2 ABG Oxyhemoglobin ABG Sodium ABG Potassium ABG Chloride ABG Glucose Carboxyhemoglobin Sodium 151 H D Potassium Chloride 116.8 H Carbon Dioxide 18 L BUN 64 H Creatinine 2.1 H Glucose 148 H POC Glucose Hemoglobin A1c Calcium 7.3 L Ferritin AST ALT Lactate Dehydrogenase C-Reactive Protein 38.00 H Total Protein Albumin Arterial Blood Glucose Arterial Blood Ionized Calcium Urine WBC (Auto) > 182.0 H U Epithel Cells (Auto) 24.0 H Urine Creatinine Coronavirus (PCR) 11/14/20 11/14/20 11/14/20 06:15 06:15 12:01 WBC RBC Hgb Hct RDW Plt Count Lymph % (Auto) [place] % (Auto) Lymph # (Auto) [place] # (Auto) Seg Neutrophils % Seg Neutrophils # PT INR D-Dimer Heparin Anti-Xa Level 1.16 H ABG pH POC ABG pO2 ABG Oxyhemoglobin ABG Sodium ABG Potassium ABG Chloride ABG Glucose Carboxyhemoglobin Sodium Potassium Chloride Carbon Dioxide BUN Creatinine Glucose POC Glucose 107 H Hemoglobin A1c Calcium Ferritin AST ALT Lactate Dehydrogenase C-Reactive Protein Total Protein Albumin Arterial Blood Glucose Arterial Blood Ionized Calcium Urine WBC (Auto) U Epithel Cells (Auto) Urine Creatinine 80.2 H Coronavirus (PCR) Chest x-ray: image reviewed (no new infiltrate) Allied health notes reviewed: nursing
--- NOTE | 2020-11-14 17:55 | Progress Note ---
Assessment and Plan Critical care time The high probability OF a clinically significant sudden or life-threatening deterioration of the cardiorespiratory system and endocrine system required my full and direct attention, intervention and postoperative management. The aggregate critical care time was 40 minutes. The time is in addition to time spent performing reported procedures but includes the followin: Data review and interpretation 2: Patient assessment and monitoring of vital signs 3: Documentation 4:: Medication orders and management - Patient Problems (1) Acute respiratory failure with hypoxia Current Visit: Yes Status: Acute Plan to address problem: Oxygen supplementation as necessary Covid to be ruled out (2) Sepsis Current Visit: Yes Status: Acute Qualifiers: Severe sepsis shock status: without septic shock Plan to address problem: Patient has a high white count but normal lactic acid Source of infection may be urinary tract As a stone in the left renal pelvis We will start on cefepime and vancomycin (3) Dehydration Current Visit: Yes Status: Acute Plan to address problem: IV fluids for now (4) Intractable nausea and vomiting Current Visit: Yes Status: Acute Plan to address problem: IV Zofran and IV Reglan for now Possible Covid (5) Suspected 2019 novel coronavirus infection Current Visit: Yes Status: Acute Plan to address problem: Coronavirus PCR positive IV Decadron for now ID consult for tomorrow (6) Lumbar compression fracture Current Visit: Yes Status: Chronic Qualifiers: Lumbar vertebra fracture level: L4 Fracture healing: with routine healing Qualified Code(s): S32.040D - Wedge compression fracture of fourth lumbar vertebra, subsequent encounter for fracture with routine healing Plan to address problem: Lumbar compression fractures L3-L4-L5 on the CT scan of the abdomen and pelvis Pain management as necessary (7) T2DM (type 2 diabetes mellitus) Current Visit: Yes Status: Chronic Qualifiers: Diabetes mellitus fci insulin 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 2. There is a single 8 mm stone in the left renal pelvis. It is difficult to determine if this is causing any degree of obstruction or may be an incidental finding. 3. Simple 5 cm left adnexal cyst. Will consult urology (9) DVT prophylaxis Current Visit: Yes Status: Acute Plan to address problem: On heparin and GI prophylaxis Subjective Date of service: 11/14/20 Principal diagnosis: Ac hypoxemic resp failure; COVID-19 infxn; Pneumonia; KATLYN; AMS; Sepsis Interval history: 85-year-old female with obesity, chronic low back pain, muscle spasms and depression presents with nausea vomiting and decreased p.o. intake for 1 week. Patient also complains of mild diarrhea. No abdominal pain. No fever or dysuria. She is bedridden and nonambulatory. Patient is oriented to self and knows that she is in the hospital. Patient says the year is 2080. Oxygen saturation is 99 to 90% on room air also complains of cough and shortness of breath. Denies any home oxygen. As per daughter patient has pain having nausea and vomiting for past 3 days. EMS was called 1 day to assess and they gave IV fluids but did not transport the patient. Today because of the persistent vomiting and apparent small amount of blood in vomit patient was transferred to [facility], [place] for further evaluation and treatment. As mentioned patient is slightly hypoxic at 88 to 90% on room air. Continues to vomit. 85-yearqold female with a past medical history of chronic lower back pain, chronic UTI, and depression with previous cholecystectomy, bladder surgery, kidney surgery presents to the hospital complaints of nausea and vomiting with decreased p.o. intake x1 week. Patient also complains of mild diarrhea. She denies abdominal pain, fever, dysuria. She is chronically nonambulatory. She is currently oriented to self and knows that she is currently [place] but states the year is 2080. Patient noted to have room air saturation of 89 to 90%. Complains of cough without shortness of breath. Denies home oxygen use. Daughter's phone number [phone] 11/12/2020 Patient doing well Discussed with daughter at length about her prognosis and treatment No nausea vomiting since morning Coronavirus PCR came positive 11/13/2020 Patient coded last night and was intubated ROSC Patient on vent Customer Success Associate consult and ID consult 11/14/2020 Patient intubated Weaning in progress Objective - Constitutional Vitals: Vital Signs - 12hr 11/14/20 11/14/20 11/14/20 06:00 06:10 06:21 Temperature Pulse Rate 122 H 122 H 118 H Pulse Rate [ From Monitor] Respiratory 21 21 22 Rate Blood Pressure 127/52 138/51 100/49 O2 Sat by Pulse 98 99 97 Oximetry 11/14/20 11/14/20 11/14/20 06:30 06:40 06:50 Temperature Pulse Rate 119 H 120 H 120 H Pulse Rate [ From Monitor] Respiratory 22 21 21 Rate Blood Pressure 95/53 111/53 113/47 O2 Sat by Pulse 98 98 98 Oximetry 11/14/20 11/14/20 11/14/20 07:00 07:10 07:20 Temperature 98.4 F Pulse Rate 120 H 120 H 120 H Pulse Rate [ From Monitor] Respiratory 21 20 21 Rate Blood Pressure 95/54 104/53 106/42 O2 Sat by Pulse 98 98 95 Oximetry 11/14/20 11/14/20 11/14/20 07:31 07:40 07:50 Temperature Pulse Rate 121 H 121 H 120 H Pulse Rate [ From Monitor] Respiratory 21 21 20 Rate Blood Pressure 100/41 103/48 89/48 O2 Sat by Pulse 98 98 98 Oximetry 11/14/20 11/14/20 11/14/20 08:00 08:01 08:10 Temperature Pulse Rate 120 H 120 H 120 H Pulse Rate [ 102 H From Monitor] Respiratory 20 23 20 Rate Blood Pressure 91/57 91/53 O2 Sat by Pulse 95 99 98 Oximetry 11/14/20 11/14/20 11/14/20 08:20 08:30 08:40 Temperature Pulse Rate 120 H 121 H 121 H Pulse Rate [ From Monitor] Respiratory 22 20 22 Rate Blood Pressure 102/51 106/55 106/50 O2 Sat by Pulse 98 98 97 Oximetry 11/14/20 11/14/20 11/14/20 08:50 09:00 09:10 Temperature Pulse Rate 121 H 120 H 121 H Pulse Rate [ From Monitor] Respiratory 24 22 22 Rate Blood Pressure 108/46 102/51 115/46 O2 Sat by Pulse 98 97 98 Oximetry 11/14/20 11/14/20 11/14/20 09:20 09:30 09:40 Temperature Pulse Rate 121 H 119 H 121 H Pulse Rate [ From Monitor] Respiratory 23 24 24 Rate Blood Pressure 94/57 85/45 95/48 O2 Sat by Pulse 96 Oximetry 11/14/20 11/14/20 11/14/20 09:50 10:00 10:10 Temperature Pulse Rate 120 H 120 H 119 H Pulse Rate [ From Monitor] Respiratory 24 24 23 Rate Blood Pressure 107/40 100/52 98/54 O2 Sat by Pulse 96 96 96 Oximetry 11/14/20 11/14/20 11/14/20 10:21 10:30 10:40 Temperature Pulse Rate 120 H 121 H 121 H Pulse Rate [ From Monitor] Respiratory 24 22 23 Rate Blood Pressure 122/56 111/53 104/48 O2 Sat by Pulse 96 96 95 Oximetry 11/14/20 11/14/20 11/14/20 10:50 11:00 11:10 Temperature 98.4 F Pulse Rate 121 H 120 H 121 H Pulse Rate [ From Monitor] Respiratory 23 24 24 Rate Blood Pressure 100/52 91/57 94/49 O2 Sat by Pulse 95 95 94 Oximetry 11/14/20 11/14/20 11/14/20 11:20 11:28 11:30 Temperature Pulse Rate 121 H 121 H 120 H Pulse Rate [ From Monitor] Respiratory 22 24 Rate Blood Pressure 101/54 100/42 100/47 O2 Sat by Pulse 94 94 94 Oximetry 11/14/20 11/14/20 11/14/20 11:40 11:50 12:00 Temperature 98.4 F Pulse Rate 117 H 120 H 121 H Pulse Rate [ From Monitor] Respiratory 26 H 24 24 Rate Blood Pressure 93/49 111/49 101/56 O2 Sat by Pulse 94 94 95 Oximetry 11/14/20 11/14/20 11/14/20 12:08 12:10 12:20 Temperature Pulse Rate 121 H 121 H 121 H Pulse Rate [ From Monitor] Respiratory 25 H 23 Rate Blood Pressure 106/49 108/51 O2 Sat by Pulse 95 94 Oximetry 11/14/20 11/14/20 11/14/20 12:30 12:32 12:40 Temperature Pulse Rate 121 H 121 H Pulse Rate [ 121 H From Monitor] Respiratory 24 22 23 Rate Blood Pressure 107/50 107/54 O2 Sat by Pulse 95 95 95 Oximetry 11/14/20 11/14/20 11/14/20 12:50 13:00 13:10 Temperature Pulse Rate 120 H 121 H 120 H Pulse Rate [ From Monitor] Respiratory 25 H 22 25 H Rate Blood Pressure 101/51 105/50 106/53 O2 Sat by Pulse 95 95 95 Oximetry 11/14/20 11/14/2011/14/21 13:20 13:30 13:40 Temperature Pulse Rate 120 H 121 H 121 H Pulse Rate [ From Monitor] Respiratory 25 H 22 22 Rate Blood Pressure 108/51 107/47 103/53 O2 Sat by Pulse 95 95 96 Oximetry 11/14/20 11/14/20 11/14/20 13:50 14:00 14:10 Temperature Pulse Rate 117 H 120 H 120 H Pulse Rate [ From Monitor] Respiratory 26 H 24 23 Rate Blood Pressure 105/50 103/48 98/51 O2 Sat by Pulse 95 95 96 Oximetry 11/14/20 11/14/20 11/14/20 14:20 14:30 14:40 Temperature Pulse Rate 120 H 120 H 120 H Pulse Rate [ From Monitor] Respiratory 23 23 23 Rate Blood Pressure 108/59 107/55 102/48 O2 Sat by Pulse 95 96 96 Oximetry 11/14/20 11/14/20 11/14/20 14:50 15:00 15:10 Temperature Pulse Rate 120 H 120 H 120 H Pulse Rate [ From Monitor] Respiratory 21 22 23 Rate Blood Pressure 109/51 103/50 105/60 O2 Sat by Pulse 96 96 96 Oximetry 11/14/20 11/14/20 11/14/20 15:20 15:30 15:35 Temperature Pulse Rate 119 H 118 H 120 H Pulse Rate [ From Monitor] Respiratory 25 H 24 Rate Blood Pressure 121/46 107/53 103/50 O2 Sat by Pulse 96 96 96 Oximetry 11/14/20 11/14/20 11/14/20 15:40 15:50 16:00 Temperature 99.5 F Pulse Rate 119 H 119 H 119 H Pulse Rate [ From Monitor] Respiratory 24 22 22 Rate Blood Pressure 113/57 108/56 104/53 O2 Sat by Pulse 96 96 96 Oximetry 11/14/20 16:06 Temperature Pulse Rate Pulse Rate [ 119 H From Monitor] Respiratory 24 Rate Blood Pressure O2 Sat by Pulse 96 Oximetry General appearance: Present: no acute distress, well-nourished - EENT Eyes: PERRL, EOM intact ENT: hearing intact, clear oral mucosa Ears: bilateral: normal - Neck Neck: supple, normal ROM - Respiratory Respiratory effort: normal Respiratory: bilateral: CTA - Breasts Breasts: normal - Cardiovascular Rhythm: regular Heart Sounds: Present: S1 & S2. Absent: gallop, rub Extremities: pulses intact, No edema, normal color, Full ROM - Gastrointestinal General gastrointestinal: Present: soft, non-tender, non-distended, normal bowel sounds - Genitourinary Female genitourinary: normal - Integumentary Integumentary: clear, warm, dry - Musculoskeletal Musculoskeletal: 1, strength equal bilaterally - Neurologic Neurologic: moves all extremities - Psychiatric Psychiatric: memory intact, appropriate mood/affect, intact judgment & insight - Labs CBC & Chem 7: 11/15/20 04:57 11/15/20 04:57 Labs: Abnormal lab results 11/13/20 11/14/20 11/14/20 Range/Units 21:50 00:50 04:25 Hct (30.3-42.9) % RDW (13.2-15.2) % Heparin Anti-Xa Level 0.91 H (0.3-0.7) U.I./ml ABG pH 7.215 L (7.320-7.450) ABG Sodium 147.3 H (136.0-145.0) mmol/L ABG Chloride 119.0 H (98-107) mmol/L ABG Glucose 156 H (65-95) mg/dL Sodium (137-145) mmol/L Chloride (98-107) mmol/L Carbon Dioxide (22-30) mmol/L BUN (7-17) mg/dL Creatinine (0.6-1.2) mg/dL Glucose (65-100) mg/dL POC Glucose 59 L (70-105) mg/dL Calcium (8.4-10.2) mg/dL C-Reactive Protein (0.00-1.30) mg/dL Arterial Blood Glucose 156 H (65-95) mg/dL Arterial Blood Ionized Calcium 4.3 L (4.6-5.3) mg/dL Urine WBC (Auto) (0.0-6.0) /HPF U Epithel Cells (Auto) (0-13.0) /HPF Urine Creatinine (0.1-20.0) mg/dL 11/14/20 11/14/20 11/14/20 Range/Units 04:35 04:35 06:15 Hct 43.9 H (30.3-42.9) % RDW 15.3 H (13.2-15.2) % Heparin Anti-Xa Level (0.3-0.7) U.I./ml ABG pH (7.320-7.450) ABG Sodium (136.0-145.0) mmol/L ABG Chloride (98-107) mmol/L ABG Glucose (65-95) mg/dL Sodium 151 H D (137-145) mmol/L Chloride 116.8 H (98-107) mmol/L Carbon Dioxide 18 L (22-30) mmol/L BUN 64 H (7-17) mg/dL Creatinine 2.1 H (0.6-1.2) mg/dL Glucose 148 H (65-100) mg/dL POC Glucose (70-105) mg/dL Calcium 7.3 L (8.4-10.2) mg/dL C-Reactive Protein 38.00 H (0.00-1.30) mg/dL Arterial Blood Glucose (65-95) mg/dL Arterial Blood Ionized Calcium (4.6-5.3) mg/dL Urine WBC (Auto) > 182.0 H (0.0-6.0) /HPF U Epithel Cells (Auto) 24.0 H (0-13.0) /HPF Urine Creatinine (0.1-20.0) mg/dL 11/14/20 11/14/20 11/14/20 Range/Units 06:15 06:15 12:01 Hct (30.3-42.9) % RDW (13.2-15.2) % Heparin Anti-Xa Level 1.16 H (0.3-0.7) U.I./ml ABG pH (7.320-7.450) ABG Sodium (136.0-145.0) mmol/L ABG Chloride (98-107) mmol/L ABG Glucose (65-95) mg/dL Sodium (137-145) mmol/L Chloride (98-107) mmol/L Carbon Dioxide (22-30) mmol/L BUN (7-17) mg/dL Creatinine (0.6-1.2) mg/dL Glucose (65-100) mg/dL POC Glucose 107 H (70-105) mg/dL Calcium (8.4-10.2) mg/dL C-Reactive Protein (0.00-1.30) mg/dL Arterial Blood Glucose (65-95) mg/dL Arterial Blood Ionized Calcium (4.6-5.3) mg/dL Urine WBC (Auto) (0.0-6.0) /HPF U Epithel Cells (Auto) (0-13.0) /HPF Urine Creatinine 80.2 H (0.1-20.0) mg/dL 11/14/20 Range/Units 17:18 Hct (30.3-42.9) % RDW (13.2-15.2) % Heparin Anti-Xa Level (0.3-0.7) U.I./ml ABG pH (7.320-7.450) ABG Sodium (136.0-145.0) mmol/L ABG Chloride (98-107) mmol/L ABG Glucose (65-95) mg/dL Sodium (137-145) mmol/L Chloride (98-107) mmol/L Carbon Dioxide (22-30) mmol/L BUN (7-17) mg/dL Creatinine (0.6-1.2) mg/dL Glucose (65-100) mg/dL POC Glucose 173 H (70-105) mg/dL Calcium (8.4-10.2) mg/dL C-Reactive Protein (0.00-1.30) mg/dL Arterial Blood Glucose (65-95) mg/dL Arterial Blood Ionized Calcium (4.6-5.3) mg/dL Urine WBC (Auto) (0.0-6.0) /HPF U Epithel Cells (Auto) (0-13.0) /HPF Urine Creatinine (0.1-20.0) mg/dL HEART Score - HEART Score Age: > 65 Risk factors: 1-2 risk factors Troponin: Troponin T < 0.010 ng/mL (0.00-0.029) 11/11/20 13:39 - Critical Actions Critical Actions: 0-3 pts:0.9-1.7%risk of adverse cardiac event.Candidate for discharge
[2020-11-14] MEDS: IPRATROPIUM/ALBUTEROL SULFATE 3 ML AMPUL.NEB IH SCH ×2 (19:56→19:57)
[2020-11-14] MEDS: SENNOSIDES/DOCUSATE SODIUM 8.6/50 MG TAB FEEDTUBE SCH (22:35)
[2020-11-14] MEDS: rOPINIRole 1 MG TAB PO SCH (22:35)
[2020-11-15] MEDS: fentaNYL DRIP Premix 2,000 MCG/100 ML BAG IV SCH ×2 (00:43→23:33)
--- NOTE | 2020-11-15 02:38 | XRay Report ---
CHEST 1 VIEW 11/14/2020 11:53 PM INDICATION / CLINICAL INFORMATION: follow up respiratory failure. COMPARISON: 11/13/20 FINDINGS: SUPPORT DEVICES: Endotracheal and esophagogastric tubes are unchanged. Left central line again projec ts over the superior left mediastinum. HEART / MEDIASTINUM: No significant abnormality. LUNGS / PLEURA: No significant pulmonary or pleural abnormality. No pneumothorax. ADDITIONAL FINDINGS: No significant additional findings. IMPRESSION: 1. Endotracheal and esophagogastric tube in expected position. 2. Left central line again projects over the superior left mediastinum. Signer Name: Alisa Harvey MD Signed: 11/15/2020 2:34 AM Workstation Name: [id number]
[2020-11-15] MEDS: NORepinephrine/NS 8 MG-250 ML 8 MG/250 ML INFUS..BTL IV SCH ×3 (03:13→23:34)
[2020-11-15] MEDS ORDERED: SODIUM CHLORIDE 0.9% 1000 ML 1,000 ML ONE (03:24)
[2020-11-15] MEDS: LACTATED RINGERS 1,000 ML IV SCH (04:18)
[2020-11-15] MEDS: INSULIN REGULAR, HUMAN 100 UNITS/1 ML SUB-Q SCH ×4 (05:05→23:32)
[2020-11-15 05:45] LABS: Hematocrit 41.6 % (30.3-42.9); Hemoglobin 13.3 gm/dl (10.1-14.3); Mean Corpuscular HGB Conc 32 % (30-34); Mean Corpuscular Volume 89 fl (79-97); Platelet Count 205 K/mm3 (140-440); Red Blood Count 4.68 M/mm3 (3.65-5.03); Red Cell Distribution Width 16.2 % (13.2-15.2)
[2020-11-15 06:00] LABS: Albumin 2.1 g/dL (3.9-5); C-Reactive Protein 34.5 mg/dL (0.00-1.30); Calcium 7.3 mg/dL (8.4-10.2)
[2020-11-15] MEDS: IPRATROPIUM/ALBUTEROL SULFATE 3 ML AMPUL.NEB IH SCH ×4 (07:27→22:19)
--- NOTE | 2020-11-15 07:33 | Progress Note ---
Assessment and Plan Assessment and plan: --Acute respiratory failure with hypoxia/intubated[11/13/2020] Current Visit: Yes Status: Acute Secondary to acute severe COVID-19 pneumonia Continue ventilatory support, treat the underlying cause Pulmonary and ID following Wean as tolerated and extubate --Positive COVID-19 infection Current Visit: Yes Status: Acute Continue current management per COVID-19 guidelines Dexamethasone 6 mg IV/PO daily for 10 days Not a remdesivir candidate due to renal failure Follow inflammatory markers - ferritin, Ddimer, CRP, LDH Received Actemra, Prone position if possible ID following --Severe sepsis Current Visit: Yes Status: Acute Due to COVID-19 pneumonia, as well as UTI patient has fever tachycardia, tachypnea and leukocytosis Urine analysis consistent with UTI Antibiotics discontinued per ID as procalcitonin is normal --Septic shock; requiring vasopressors Current Visit: Yes Status: Acute Continue nor epi, IV fluids and supportive care Wean as tolerated --Elevated D-dimers/COVID-19 pneumonia Current Visit: Yes Status: Acute Patient is already on heparin drip due [to carotid arterial line] Continue supportive care --Transaminitis; COVID-19 related Current Visit: Yes Status: Acute Worsening LFTs, closely monitor GI consult if needed, treat the underlying cause --inadvertent placement of carotid arterial line; Current Visit: Yes Status: Acute Vascular /IR evaluated the patient Initiated heparin drip to prevent thrombosis Strictly advised not to use the arterial line --Dehydration Current Visit: Yes Status: Acute Continue IV fluids , supportive care --Intractable nausea and vomiting Current Visit: Yes Status: Acute Continue antiemetics supportive care --Lumbar compression fracture Current Visit: Yes Status: Chronic Lumbar compression fractures L3-L4-L5 on the CT scan of the abdomen and pelvis Pain management as necessary, supportive care --T2DM (type 2 diabetes mellitus) Current Visit: Yes Status: Chronic Accu-Chek sliding scale coverage ADA diet hemoglobin A1c 6.6 --Hydronephrosis of left kidney/bilateral ureteric stone Current Visit: Yes Status: Acute urology evaluated bilateral ureteric stone; s/p cystoscopy bilateral stent placement shot internal string[11/13/2020] --DVT prophylaxis Current Visit: Yes Status: Acute Plan to address problem: On heparin and GI prophylaxis Critical care time The high probability OF a clinically significant sudden or life-threatening deterioration of multiple systems[ pulmonary , infectious , renal and GI and metabolic] required my full and direct attention, intervention and postoperative management. The aggregate critical care time was 40 minutes. The time is in addition to time spent performing reported procedures but includes the followin: Data review and interpretation 2: Patient assessment and monitoring of vital signs 3: Documentation 4:: Medication orders and management Brief history and daily hospital course 85-year-old female with obesity, chronic low back pain, muscle spasms and depression presents with nausea vomiting and decreased p.o. intake for 1 week. Patient also complains of mild diarrhea. No abdominal pain. No fever or dysuria. She is bedridden and nonambulatory. Patient is oriented to self and knows that she is in the hospital. Patient says the year is 2080. Oxygen saturation is 99 to 90% on room air also complains of cough and shortness of breath. Denies any home oxygen. As per daughter patient has pain having nausea and vomiting for past 3 days. EMS was called 1 day to assess and they gave IV fluids but did not transport the patient. Today because of the persistent vomiting and apparent small amount of blood in vomit patient was transferred to [facility] for further evaluation and treatment. As mentioned patient is slightly hypoxic at 88 to 90% on room air. Continues to vomit. 85-yearqold female with a past medical history of chronic lower back pain, chronic UTI, and depression with previous cholecystectomy, bladder surgery, kidney surgery presents to the hospital complaints of nausea and vomiting with decreased p.o. intake x1 week. Patient also complains of mild diarrhea. She denies abdominal pain, fever, dysuria. She is chronically nonambulatory. She is currently oriented to self and knows that she is currently [place] but states the year is 2080. Patient noted to have room air saturation of 89 to 90%. Complains of cough without shortness of breath. Denies home oxygen use. Daughter's phone number [phone] 11/12/2020 Patient doing well Discussed with daughter at length about her prognosis and treatment No nausea vomiting since morning Coronavirus PCR came positive 11/13/2020 Patient coded last night and was intubated ROSC Patient on vent [employer] Sales Representative consult and ID consult 11/14/2020 Patient intubated Weaning in progress 11/15/2020; patient remains intubated, on vasopressors for septic shock Critically ill, poor prognosis, discussed with daughter Kirstin Understands the severity of illness, she wants to talk to the family If the family agrees she is considering DNR/withdrawal of care I informed patient's nurse History Interval history: I have seen and examined the patient in ICU this morning, Patient's chart and medications reviewed Patient is COVID-19, strict isolation precautions and PPE protocols observed per Covid 19 guidelines . throughout my interaction and evaluation of the patient. Patient is intubated on ventilatory support, noncommunicative Vital signs reviewed Hospitalist Physical - Constitutional Vitals: Temp Pulse Resp BP Pulse Ox 99.8 F H 124 H 25 H 116/56 97 11/15/20 03:18 11/15/20 07:10 11/15/20 07:10 11/15/20 07:10 11/15/20 07:10 General appearance: Present: no acute distress, well-nourished, other (Intubated on vent) - EENT Eyes: Present: PERRL, EOM intact ENT: other (ET tube and Dobbhoff in place) - Neck Neck: Present: supple, normal ROM - Respiratory Respiratory effort: normal Respiratory: bilateral: diminished, rhonchi, negative: rales, wheezing - Cardiovascular Rhythm: regular Heart Sounds: Present: S1 & S2 (Tachycardia) - Extremities Extremities: no ischemia, No edema - Abdominal General gastrointestinal: soft, non-tender, non-distended, normal bowel sounds - Integumentary Integumentary: Present: clear, warm - Psychiatric Psychiatric: other - Neurologic Neurologic: other (Interpreted on vent) HEART Score - HEART Score Age: > 65 Risk factors: 1-2 risk factors Troponin: Troponin T < 0.010 ng/mL (0.00-0.029) 11/11/20 13:39 - Critical Actions Critical Actions: 0-3 pts:0.9-1.7%risk of adverse cardiac event.Candidate for discharge Results - Labs CBC & Chem 7: 11/15/20 04:57 11/16/20 Unknown Labs: Laboratory Last Values WBC 9.8 K/mm3 (4.5-11.0) 11/15/20 04:57 RBC 4.68 M/mm3 (3.65-5.03) 11/15/20 04:57 Hgb 13.3 gm/dl (10.1-14.3) 11/15/20 04:57 Hct 41.6 % (30.3-42.9) 11/15/20 04:57 MCV 89 fl (79-97) 11/15/20 04:57 MCH 28 pg (28-32) 11/15/20 04:57 MCHC 32 % (30-34) 11/15/20 04:57 RDW 16.2 % (13.2-15.2) H 11/15/20 04:57 Plt Count 205 K/mm3 (140-440) 11/15/20 04:57 Lymph % (Auto) 5.7 % (13.4-35.0) L 11/13/20 05:23 Warren % (Auto) 9.0 % (0.0-7.3) H 11/13/20 05:23 Eos % (Auto) 0.0 % (0.0-4.3) 11/13/20 05:23 Baso % (Auto) 0.0 % (0.0-1.8) 11/13/20 05:23 Lymph # (Auto) 0.9 K/mm3 (1.2-5.4) L 11/13/20 05:23 Warren # (Auto) 1.4 K/mm3 (0.0-0.8) H 11/13/20 05:23 Eos # (Auto) 0.0 K/mm3 (0.0-0.4) 11/13/20 05:23 Baso # (Auto) 0.0 K/mm3 (0.0-0.1) 11/13/20 05:23 Seg Neutrophils % 85.3 % (40.0-70.0) H 11/13/20 05:23 Seg Neutrophils # 13.6 K/mm3 (1.8-7.7) H 11/13/20 05:23 PT 16.0 Sec. (12.2-14.9) H 11/13/20 09:51 INR 1.23 (0.87-1.13) H 11/13/20 09:51 APTT 24.2 Sec. (24.2-36.6) 11/13/20 09:51 D-Dimer 3313.42 ng/mlDDU (0-234) H 11/15/20 04:57 Heparin Anti-Xa Level 0.81 U.I./ml (0.3-0.7) H 11/15/20 04:57 ABG pH 7.246 (7.320-7.450) L 11/15/20 01:45 POC ABG pCO2 28.4 mmHg (32.0-48.0) L 11/15/20 01:45 POC ABG pO2 83.8 mmHg (83-108) 11/15/20 01:45 POC ABG HCO3 12.1 11/15/20 01:45 ABG O2 Saturation 96.5 (0-100) 11/15/20 01:45 POC ABG Base Excess -13.7 11/15/20 01:45 ABG Hemoglobin 14.0 (12.0-17.5) 11/15/20 01:45 ABG Oxyhemoglobin 95.6 (94-98) 11/15/20 01:45 ABG Methemoglobin 0.3 (0.0-1.5) 11/15/20 01:45 ABG Sodium 141.1 mmol/L (136.0-145.0) 11/15/20 01:45 ABG Potassium 3.8 mmol/L (3.40-4.50) 11/15/20 01:45 ABG Chloride 116.0 mmol/L (98-107) H 11/15/20 01:45 ABG Glucose 164 mg/dL (65-95) H 11/15/20 01:45 Carboxyhemoglobin 0.6 (0.5-1.5) 11/15/20 01:45 FiO2 % 90.0 11/15/20 01:45 Sodium 147 mmol/L (137-145) H 11/15/20 04:57 Potassium 3.8 mmol/L (3.6-5.0) 11/15/20 04:57 Chloride 114.0 mmol/L (98-107) H 11/15/20 04:57 Carbon Dioxide 16 mmol/L (22-30) L 11/15/20 04:57 Anion Gap 21 mmol/L 11/15/20 04:57 BUN 68 mg/dL (7-17) H 11/15/20 04:57 Creatinine 2.4 mg/dL (0.6-1.2) H 11/15/20 04:57 Estimated GFR 19 ml/min 11/15/20 04:57 BUN/Creatinine Ratio 28 % 11/15/20 04:57 Glucose 148 mg/dL (65-100) H 11/15/20 04:57 POC Glucose 124 mg/dL (70-105) H 11/15/20 05:20 Hemoglobin A1c 6.6 % (4-6) H 11/12/20 05:07 Lactic Acid 3.00 mmol/L (0.7-2.0) H* 11/15/20 04:57 Calcium 7.3 mg/dL (8.4-10.2) L 11/15/20 04:57 Ferritin 1003.0 ng/mL (10.0-200.0) H 11/13/20 09:51 Total Bilirubin 0.40 mg/dL (0.1-1.2) 11/15/20 04:57 AST 395 units/L (5-40) H 11/15/20 04:57 ALT 396 units/L (7-56) H 11/15/20 04:57 Alkaline Phosphatase 75 units/L (35-129) 11/15/20 04:57 Lactate Dehydrogenase 596 units/L (91-180) H 11/15/20 04:57 Troponin T < 0.010 ng/mL (0.00-0.029) 11/11/20 13:39 C-Reactive Protein 34.50 mg/dL (0.00-1.30) H 11/15/20 04:57 Total Protein 5.1 g/dL (6.3-8.2) L 11/15/20 04:57 Albumin 2.1 g/dL (3.9-5) L 11/15/20 04:57 Albumin/Globulin Ratio 0.7 % 11/15/20 04:57 Lipase 55 units/L (13-60) 11/11/20 13:39 Procalcitonin < 0.05 ng/mL (<0.15) 11/11/20 16:59 Arterial Blood Glucose 164 mg/dL (65-95) H 11/15/20 01:45 Arterial Blood Ionized Calcium 4.3 mg/dL (4.6-5.3) L 11/15/20 01:45 Urine Color Red (Yellow) 11/14/20 06:15 Urine Turbidity Turbid (Clear) 11/14/20 06:15 Urine pH TNR 11/14/20 06:15 Ur Specific Perrin 1.029 (1.003-1.030) 11/11/20 Unknown Urine Protein TNR 11/14/20 06:15 Urine Glucose (UA) Color interference mg/dL (Negative) 11/14/20 06:15 Urine Ketones Color interference mg/dL (Negative) 11/14/20 06:15 Urine Blood Sm (Negative) 11/11/20 Unknown Urine Nitrite TNR 11/14/20 06:15 Ur Reducing Substances TNR 11/14/20 06:15 Urine Bilirubin Color interference (Negative) 11/14/20 06:15 Urine Ictotest TNR 11/14/20 06:15 Urine Urobilinogen TNR 11/14/20 06:15 Ur Leukocyte Esterase TNR 11/14/20 06:15 Urine WBC (Auto) > 182.0 /HPF (0.0-6.0) H 11/14/20 06:15 Urine RBC (Auto) > 182.0 /HPF (0.0-6.0) 11/14/20 06:15 U Epithel Cells (Auto) 24.0 /HPF (0-13.0) H 11/14/20 06:15 Urine WBC Clumps 3+ /HPF 11/14/20 06:15 Urine Creatinine 80.2 mg/dL (0.1-20.0) H 11/14/20 06:15 Urine Sodium 28 mmol/L 11/14/20 06:15 Coronavirus (PCR) Positive (Negative) A 11/11/20 Unknown Blood Type A POSITIVE 11/11/20 15:00 Antibody Screen Negative 11/11/20 15:00 Microbiology: Microbiology 11/14/20 Unknown Peripheral/Venous Blood Culture - Preliminary Culture in Progress 11/14/20 Unknown Peripheral/Venous Blood Culture - Preliminary Culture in Progress 11/11/20 15:10 Peripheral/Venous Blood Culture - Preliminary NO GROWTH AFTER 72 HOURS 11/11/20 15:21 Peripheral/Venous Blood Culture - Preliminary NO GROWTH AFTER 72 HOURS Lind/IV: Voiding Method Indwelling Catheter Active Medications - Current Medications Current Medications: Generic Name Dose Route Start Last Admin Trade Name Freq PRN Reason Stop Dose Admin Acetaminophen 650 mg 11/11/20 22:11 Acetaminophen 325 Mg Tab PO Q4H PRN Pain MILD(1-3)/Fever >100.5/ERAZO Albuterol 2.5 mg 11/13/20 07:40 Albuterol 2.5 Mg/3 Ml Nebu IH Q4HRT PRN Shortness Of Breath Albuterol/Ipratropium 1 ampul 11/13/20 08:00 11/15/20 07:27 Ipratropium/Albuterol Sulfate 3 Ml Ampul.Neb IH Not Given QIDRT CARLOS Lipase/Protease/Amylase 1 each 11/13/20 17:32 Lipase 10,500/Protease 25,000/Amylase 43,750 (Units) Dr Weiss FEEDTUBE PRN PRN For Clogged Feeding Tube Ascorbic Acid 500 mg 11/13/20 22:00 11/14/20 22:34 Ascorbic Acid 500 Mg Tab PO 500 mg BID CARLOS Administration Baclofen 10 mg 11/11/20 22:09 Baclofen 10 Mg Tab PO TID PRN MUSCLE SPASMS & PAIN Dexamethasone 6 mg 11/13/20 10:00 11/14/20 09:11 Dexamethasone 4 Mg/Ml Vial IV 11/22/20 10:01 6 mg Q24HR CARLOS Administration Dextrose 50 ml 11/13/20 16:43 11/14/20 01:12 Dextrose 50% In Water (25gm) 50 Ml Syringe IV 50 ml Q30MIN PRN Administration Hypoglycemia Protocol Fentanyl 50 mcg 11/13/20 05:33 Fentanyl 100 Mcg/2 Ml Inj IV Q10MIN PRN ANALGESIA Heparin Sodium (Porcine) 3,000 unit 11/13/20 05:04 Heparin 10,000 Units/10 Ml Vial 40 unit/kg (3000 unit) IV Q6H PRN Anti-Xa Assay < 0.1 units/ml Hydromorphone HCl 0.5 mg 11/11/20 22:11 Hydromorphone 1 Mg/1 Ml Inj IV Q3H PRN Pain , Severe (7-10) Hydrophilic Ointment 1 applic 11/13/20 05:33 Lip Therapy Vaseline TP Q2HR PRN Dry Lips Heparin Sodium/Sodium Chloride 25,000 unit in 500 mls @ 23 mls/hr 11/13/20 06:00 11/15/20 01:15 Heparin/ 0.45% Nacl-25,000 Unit/500 Ml IV 750 units/hr TITR CARLOS 15 mls/hr Titration Protocol 1,150 UNITS/HR Fentanyl Citrate 2,000 mcg in 100 mls @ 3.81 mls/hr 11/13/20 06:00 11/15/20 00:43 Fentanyl Drip Premix IV 1 mcg/kg/hr TITR CARLOS 3.81 mls/hr Administration Protocol 1 MCG/KG/HR NORepinephrine/NS 8 MG-250 ML 8 mg in 250 mls @ 3.75 mls/hr 11/13/20 15:00 11/15/20 06:00 Norepinephrine/Ns 8 Mg-250 Ml (Double Conc) IV 16 mcg/min TITRATE CARLOS 30 mls/hr Titration Protocol 2 MCG/MIN Dextrose 1,000 mls @ 42 mls/hr 11/14/20 09:00 11/14/20 09:11 D5w IV 42 mls/hr DIRECT CARLOS Administration Lactated Ringer's 1,000 mls @ 75 mls/hr 11/14/20 13:00 11/15/20 04:18 Lactated Ringers IV 11/16/20 02:19 75 mls/hr DIRECT CARLOS Administration Insulin Human Regular 0 units 11/13/20 17:00 11/15/20 05:05 Insulin Regular, Human 100 Units/1 Ml SUB-Q Not Given Q6H CARLSO Protocol Metoclopramide HCl 10 mg 11/11/20 22:11 Metoclopramide 10 Mg/2 Ml Inj IV Q6H PRN Nausea And Vomiting Multi-Ingred Cream/Lotion/Oil/Oint 1 applic 11/13/20 05:33 Mineral Oil/Petrolatum, White Ophth Oint 3.5 Gm OU Q4HR PRN Dry Eye(s) Ondansetron HCl 4 mg 11/11/20 22:11 Ondansetron 4 Mg/2 Ml Inj IV Q3H PRN Nausea And Vomiting Oxycodone/Acetaminophen 1 tab 11/11/20 22:11 Oxycodone /Acetaminophen 5-325mg Tab PO Q6H PRN Pain, Moderate (4-6) Pantoprazole Sodium 40 mg 11/13/20 14:00 11/14/20 22:34 Pantoprazole 40 Mg Inj IV 40 mg BID CARLOS Administration Paroxetine HCl 10 mg 11/12/20 10:00 11/14/20 09:11 Paroxetine 10 Mg Tab PO 10 mg DAILY CARLOS Administration Ropinirole HCl 1 mg 11/12/20 22:00 11/14/20 22:35 Ropinirole 1 Mg Tab PO 1 mg QHS CARLOS Administration Senna/Docusate Sodium 1 tab 11/14/20 22:00 11/14/20 22:35 Sennosides/Docusate Sodium 8.6/50 Mg Tab FEEDTUBE 1 tab BID CARLOS Administration Simple Syrup 15 ml 11/13/20 17:32 Simple Syrup 15 Ml FEEDTUBE PRN PRN Hypoglycemia Simple Syrup 30 ml 11/13/20 17:32 Simple Syrup 15 Ml FEEDTUBE PRN PRN Hypoglycemia Sodium Bicarbonate 325 mg 11/13/20 17:32 Sodium Bicarbonate 325 Mg Tab FEEDTUBE PRN PRN For Clogged Feeding Tube Sodium Chloride 10 ml 11/12/20 10:00 11/14/20 22:35 Sodium Chloride 0.9% 10 Ml Flush Syringe IV 10 ml BID CARLOS Administration Sodium Chloride 10 ml 11/11/20 22:11 Sodium Chloride 0.9% 10 Ml Flush Syringe IV PRN PRN LINE FLUSH Zinc Sulfate 220 mg 11/13/20 22:00 11/14/20 22:34 Zinc Sulfate 220 Mg Cap PO 220 mg BID CARLOS Administration Nutrition/Malnutrition Assess - Dietary Evaluation Nutrition/Malnutrition Findings: Nutrition Notes Start: 11/13/20 17:25 Freq: Status: Active Protocol: Document 11/13/20 17:25 [facility] (Rec: 11/13/20 17:31 [facility] [id number]) Nutrition Notes Need for Assessment generated from: MD Order Initial or Follow up Assessment Current Diagnosis Sepsis,Respiratory Failure Other Pertinent Diagnosis COVID-19 (+), Dehydration, (L) renal stone Current Diet None ordered Labs/Tests K 3.1 BUN 64 Cr 2.2 A1C 6.6 Pertinent Medications Decadron, Heparin gtt, Levophed gtt Height 5 ft 4 in Weight 77 kg [place] Body Weight (kg) 54.54 BMI 29.1 Weight Status Overweight Subjective/Other Information RD consulted for TF and to evaluate nutritional intake. Pt intubated this am. Burn Absent Trauma Absent Minimum of two criteria No #1 Nutrition Diagnosis Inadequate oral intake [facility] As Evidenced by Signs and Symptoms pt NPO Is patient on ventilator? Yes Is Patient Ambulatory and/or Out of Bed No [facility] [phone] Calculation Used for Recommendations Yaima Mcclure Additional Notes Pro needs 1.2-2g/k-154g/ day Fluid needs 1ml/kcal Nutrition Intervention Nutrition Support: Vital AF 1.2 at 50ml/hr with 75ml water flush q4h. Kcal 1,440 Protein (gm) 90 Fluid (mL) 973 Goal #1 TF tolerance Goal #2 TF to meet at least 75% energy and pro needs Anticipated Discharge Needs: Unable to identify at this time Follow-Up By: 11/15/20 Additional Comments F/U: new TF, vent status
--- NOTE | 2020-11-15 08:46 | Progress Note ---
Assessment and Plan 1. Acute kidney injury: KATLYN in the setting of severe Covid infection. Patient is also hypotensive. Received IV contrast 11/13. CT abdomen showed non-obstructive 7 mm distal left ureteral stone. Urine studies ordered. Monitor renal function. Creatinine level is increasing. Renal prognosis is guarded. Avoid nephrotoxic agents. Meds dosage based on GFR. 2. FEN: Hypernatremia, increase IV D5W to 60 ml/hr, monitor. Hyperchloremic metabolic acidosis, monitor. Hypokalemia, replete K as needed, monitor. Monitor lytes and volume status. 3. Acute respiratory failure with hypoxemia: 2/2 Covid PNA. Currently on vent, wean as tolerated. 4. Shock: Off pressors. Monitor. 5. Covid PNA: Followed by ID. 6. L ureteral stone: S/p b/l stent. Seen by Urologist. 7. Elevated ALT & AST: Trend. 8. DM type 2: Monitor. Subjective: Patient was seen and examined at the bedside. Spoke with RN. Examination: General appearance: well-developed, appears stated age, intubated on vent HEENT: atraumatic, no icterus Neck: trachea midline Respiratory: MV sounds Heart: S1S2, regular, tachycardia, no murmur Abdomen: soft, bowel sounds heard, NT Integumentary: no obvious rash Neurologic: not responding Ext: no edema : Lind catheter Subjective Date of service: 11/15/20 Principal diagnosis: Ac hypoxemic resp failure; COVID-19 infxn; Pneumonia; KATLYN; AMS; Sepsis Objective - Vital Signs Vital signs: Vital Signs - 12hr 11/14/20 11/14/20 11/14/20 21:30 21:40 21:50 Temperature Pulse Rate 119 H 118 H 118 H Pulse Rate [ From Monitor] Respiratory 22 Rate Blood Pressure 99/60 113/53 117/54 O2 Sat by Pulse 95 96 96 Oximetry 11/14/20 11/14/20 11/14/20 22:00 22:10 22:20 Temperature Pulse Rate 118 H 118 H 117 H Pulse Rate [ From Monitor] Respiratory 21 Rate Blood Pressure 106/56 116/55 109/60 O2 Sat by Pulse 95 95 95 Oximetry 11/14/20 11/14/20 11/14/20 22:30 22:40 22:50 Temperature Pulse Rate 118 H 117 H 117 H Pulse Rate [ From Monitor] Respiratory 21 21 22 Rate Blood Pressure 118/60 113/54 102/50 O2 Sat by Pulse 95 96 95 Oximetry 11/14/20 11/14/20 11/14/20 23:00 23:10 23:20 Temperature Pulse Rate 117 H 118 H 117 H Pulse Rate [ From Monitor] Respiratory 23 23 24 Rate Blood Pressure 111/57 109/57 110/60 O2 Sat by Pulse 95 95 95 Oximetry 11/14/20 11/14/20 11/14/20 23:30 23:40 23:41 Temperature 100 F H Pulse Rate 118 H 117 H Pulse Rate [ From Monitor] Respiratory 22 22 Rate Blood Pressure 118/52 113/59 O2 Sat by Pulse 95 95 Oximetry 11/14/20 11/14/20 11/15/20 23:50 23:57 00:00 Temperature Pulse Rate 118 H 117 H 117 H Pulse Rate [ 117 H From Monitor] Respiratory 21 23 Rate Blood Pressure 114/60 115/58 116/60 O2 Sat by Pulse 95 95 95 Oximetry 11/15/20 11/15/20 11/15/20 00:10 00:20 00:30 Temperature Pulse Rate 117 H 117 H 118 H Pulse Rate [ From Monitor] Respiratory 22 21 23 Rate Blood Pressure 110/62 114/58 111/51 O2 Sat by Pulse 95 96 96 Oximetry 11/15/20 11/15/20 11/15/20 00:40 00:50 01:00 Temperature Pulse Rate 118 H 118 H 119 H Pulse Rate [ From Monitor] Respiratory 23 25 H 24 Rate Blood Pressure 121/56 115/60 116/58 O2 Sat by Pulse 95 95 96 Oximetry 11/15/20 11/15/20 11/15/20 01:10 01:20 01:30 Temperature Pulse Rate 118 H 119 H 118 H Pulse Rate [ From Monitor] Respiratory 24 26 H 25 H Rate Blood Pressure 110/63 120/52 105/67 O2 Sat by Pulse 96 96 96 Oximetry 11/15/20 11/15/20 11/15/20 01:40 01:50 02:00 Temperature Pulse Rate 119 H 119 H 120 H Pulse Rate [ From Monitor] Respiratory 23 22 23 Rate Blood Pressure 120/57 117/59 105/56 O2 Sat by Pulse 96 96 96 Oximetry 11/15/20 11/15/20 11/15/20 02:10 02:20 02:30 Temperature Pulse Rate 115 H 119 H 120 H Pulse Rate [ From Monitor] Respiratory 24 24 26 H Rate Blood Pressure 100/61 107/50 109/60 O2 Sat by Pulse 95 96 95 Oximetry 11/15/20 11/15/20 11/15/20 02:40 02:50 03:00 Temperature Pulse Rate 119 H 121 H 120 H Pulse Rate [ From Monitor] Respiratory 28 H 25 H 28 H Rate Blood Pressure 105/55 110/64 101/62 O2 Sat by Pulse 96 95 96 Oximetry 11/15/20 11/15/20 11/15/20 03:10 03:18 03:20 Temperature 99.8 F H Pulse Rate 120 H 120 H Pulse Rate [ From Monitor] Respiratory 25 H 28 H Rate Blood Pressure 105/62 111/57 O2 Sat by Pulse 96 96 Oximetry 11/15/20 11/15/20 11/15/20 03:30 03:40 03:50 Temperature Pulse Rate 121 H 121 H 118 H Pulse Rate [ From Monitor] Respiratory 28 H 27 H 23 Rate Blood Pressure 115/52 106/55 111/46 O2 Sat by Pulse 95 95 96 Oximetry 11/15/20 11/15/20 11/15/20 04:00 04:10 04:16 Temperature Pulse Rate 120 H 121 H 121 H Pulse Rate [ 120 H From Monitor] Respiratory 26 H 25 H Rate Blood Pressure 109/52 109/65 124/70 O2 Sat by Pulse 96 96 95 Oximetry 11/15/20 11/15/20 11/15/20 04:20 04:30 04:40 Temperature Pulse Rate 122 H 120 H 122 H Pulse Rate [ From Monitor] Respiratory 27 H 26 H 29 H Rate Blood Pressure 110/53 102/58 103/55 O2 Sat by Pulse 95 95 95 Oximetry 11/15/20 11/15/20 11/15/20 04:51 05:01 05:11 Temperature Pulse Rate 121 H 120 H 120 H Pulse Rate [ From Monitor] Respiratory 29 H 29 H 26 H Rate Blood Pressure 93/44 93/44 93/44 O2 Sat by Pulse 95 96 95 Oximetry 11/15/20 11/15/20 11/15/20 05:21 05:31 05:41 Temperature Pulse Rate 115 H 120 H 123 H Pulse Rate [ From Monitor] Respiratory 30 H 30 H 29 H Rate Blood Pressure 93/44 93/44 97/35 O2 Sat by Pulse 95 96 96 Oximetry 11/15/20 11/15/20 11/15/20 05:50 06:00 06:11 Temperature Pulse Rate 120 H 120 H 121 H Pulse Rate [ From Monitor] Respiratory 30 H 31 H 32 H Rate Blood Pressure 87/53 80/37 97/61 O2 Sat by Pulse 95 96 97 Oximetry 11/15/20 11/15/20 11/15/20 06:21 06:30 06:40 Temperature Pulse Rate 121 H 121 H Pulse Rate [ From Monitor] Respiratory 30 H 30 H Rate Blood Pressure 91/62 101/61 90/60 O2 Sat by Pulse 95 96 97 Oximetry 11/15/20 11/15/20 11/15/20 06:51 07:00 07:01 Temperature Pulse Rate 122 H 124 H 124 H Pulse Rate [ From Monitor] Respiratory 24 24 Rate Blood Pressure 109/60 114/66 O2 Sat by Pulse 98 98 Oximetry 11/15/20 11/15/20 11/15/20 07:10 07:20 07:28 Temperature Pulse Rate 124 H 124 H 122 H Pulse Rate [ From Monitor] Respiratory 25 H 27 H Rate Blood Pressure 116/56 123/57 107/68 O2 Sat by Pulse 97 97 97 Oximetry 11/15/20 11/15/20 11/15/20 07:30 07:39 07:40 Temperature 99.5 F Pulse Rate 127 H 124 H Pulse Rate [ From Monitor] Respiratory 27 H 33 H Rate Blood Pressure 107/68 112/60 O2 Sat by Pulse 96 97 Oximetry 11/15/20 11/15/20 11/15/20 07:50 08:00 08:11 Temperature 101.1 F H Pulse Rate 124 H 121 H 123 H Pulse Rate [ From Monitor] Respiratory 29 H 27 H 31 H Rate Blood Pressure 109/60 111/53 115/56 O2 Sat by Pulse 96 96 95 Oximetry 11/15/20 11/15/20 11/15/20 08:20 08:28 08:30 Temperature Pulse Rate 120 H 122 H Pulse Rate [ 123 H From Monitor] Respiratory 30 H 29 H 26 H Rate Blood Pressure 103/53 114/54 O2 Sat by Pulse 95 96 95 Oximetry 11/15/20 08:40 Temperature Pulse Rate 120 H Pulse Rate [ From Monitor] Respiratory 27 H Rate Blood Pressure 121/58 O2 Sat by Pulse 95 Oximetry - Lab 11/15/20 04:57 11/15/20 04:57 Most recent lab results ABG pH 7.246 (7.320-7.450) L 11/15/20 01:45 ABG O2 Saturation 96.5 (0-100) 11/15/20 01:45 Calcium 7.3 mg/dL (8.4-10.2) L 11/15/20 04:57 Urine Creatinine 80.2 mg/dL (0.1-20.0) H 11/14/20 06:15 Urine Sodium 28 mmol/L 11/14/20 06:15 Medications & Allergies - Medications Allergies/Adverse Reactions: Allergies morphine Adverse Reaction (Verified 05/26/13 19:22) Nausea Home Medications: Home Medications Medication Instructions Recorded Confirmed Last Taken Type Acetaminophen [Tylenol] 325 mg PO DAILY #10 tablet 05/26/13 10/17/14 10/16/14 Rx Baclofen [Lioresal] 10 mg PO TID PRN 05/26/13 10/17/14 10/16/14 History Diazepam [Valium] 10 mg PO BID 05/26/13 10/17/14 10/16/14 History PARoxetine [Paxil] 10 mg PO DAILY 05/26/13 10/17/14 10/16/14 19:00 History Quetiapine Fumarate [SEROquel XR] 200 mg PO DAILY 05/26/13 10/17/14 10/16/14 History rOPINIRole [Requip] 1 mg PO QHS 05/26/13 10/17/14 10/16/14 19:00 History QUEtiapine [SEROquel] 200 mg PO QHS 05/28/13 10/17/14 10/16/14 19:00 History Famotidine [Pepcid] 10 mg PO BID #60 tablet 06/02/13 10/17/14 10/16/14 Rx levoFLOXacin [Levaquin] 750 mg PO QDAY #7 tablet 06/02/13 10/17/14 10/16/14 Rx metroNIDAZOLE [Flagyl] 500 mg PO Q8HR #30 tablet 06/02/13 10/17/14 10/16/14 Rx Hydromorphone HCl [Dilaudid] 4 mg PO 10/17/14 10/17/14 10/16/14 History Oxycodone HCl/Acetaminophen 1 each PO Q6HR PRN 10/17/14 10/17/14 10/16/14 History [Percocet 10-325 mg] Oxycodone HCl/Acetaminophen 1 each PO Q6HR PRN #30 tablet 10/18/14 Unknown Rx [Percocet 10-325 mg] Active Medications: Generic Name Dose Route Start Last Admin Trade Name Freq PRN Reason Stop Dose Admin Acetaminophen 650 mg 11/11/20 22:11 Acetaminophen 325 Mg Tab PO Q4H PRN Pain MILD(1-3)/Fever >100.5/ERAZO Albuterol 2.5 mg 11/13/20 07:40 Albuterol 2.5 Mg/3 Ml Nebu IH Q4HRT PRN Shortness Of Breath Albuterol/Ipratropium 1 ampul 11/13/20 08:00 11/15/20 07:27 Ipratropium/Albuterol Sulfate 3 Ml Ampul.Neb IH Not Given QIDRT CARLOS Lipase/Protease/Amylase 1 each 11/13/20 17:32 Lipase 10,500/Protease 25,000/Amylase 43,750 (Units) Dr Abhishek FEEDTUBE PRN PRN For Clogged Feeding Tube Ascorbic Acid 500 mg 11/13/20 22:00 11/14/20 22:34 Ascorbic Acid 500 Mg Tab PO 500 mg BID CARLOS Administration Baclofen 10 mg 11/11/20 22:09 Baclofen 10 Mg Tab PO TID PRN MUSCLE SPASMS & PAIN Dexamethasone 6 mg 11/13/20 10:00 11/14/20 09:11 Dexamethasone 4 Mg/Ml Vial IV 11/22/20 10:01 6 mg Q24HR CARLOS Administration Dextrose 50 ml 11/13/20 16:43 11/14/20 01:12 Dextrose 50% In Water (25gm) 50 Ml Syringe IV 50 ml Q30MIN PRN Administration Hypoglycemia Protocol Fentanyl 50 mcg 11/13/20 05:33 Fentanyl 100 Mcg/2 Ml Inj IV Q10MIN PRN ANALGESIA Heparin Sodium (Porcine) 3,000 unit 11/13/20 05:04 Heparin 10,000 Units/10 Ml Vial 40 unit/kg (3000 unit) IV Q6H PRN Anti-Xa Assay < 0.1 units/ml Hydromorphone HCl 0.5 mg 11/11/20 22:11 Hydromorphone 1 Mg/1 Ml Inj IV Q3H PRN Pain , Severe (7-10) Hydrophilic Ointment 1 applic 11/13/20 05:33 Lip Therapy Vaseline TP Q2HR PRN Dry Lips Heparin Sodium/Sodium Chloride 25,000 unit in 500 mls @ 23 mls/hr 11/13/20 06:00 11/15/20 01:15 Heparin/ 0.45% Nacl-25,000 Unit/500 Ml IV 750 units/hr TITR CARLOS 15 mls/hr Titration Protocol 1,150 UNITS/HR Fentanyl Citrate 2,000 mcg in 100 mls @ 3.81 mls/hr 11/13/20 06:00 11/15/20 00:43 Fentanyl Drip Premix IV 1 mcg/kg/hr TITR CARLSO 3.81 mls/hr Administration Protocol 1 MCG/KG/HR NORepinephrine/NS 8 MG-250 ML 8 mg in 250 mls @ 3.75 mls/hr 11/13/20 15:00 11/15/20 06:00 Norepinephrine/Ns 8 Mg-250 Ml (Double Conc) IV 16 mcg/min TITRATE CARLOS 30 mls/hr Titration Protocol 2 MCG/MIN Dextrose 1,000 mls @ 42 mls/hr 11/14/20 09:00 11/14/20 09:11 D5w IV 42 mls/hr DIRECT CARLOS Administration Lactated Ringer's 1,000 mls @ 75 mls/hr 11/14/20 13:00 11/15/20 04:18 Lactated Ringers IV 11/16/20 02:19 75 mls/hr DIRECT CARLOS Administration Insulin Human Regular 0 units 11/13/20 17:00 11/15/20 05:05 Insulin Regular, Human 100 Units/1 Ml SUB-Q Not Given Q6H CARLOS Protocol Metoclopramide HCl 10 mg 11/11/20 22:11 Metoclopramide 10 Mg/2 Ml Inj IV Q6H PRN Nausea And Vomiting Multi-Ingred Cream/Lotion/Oil/Oint 1 applic 11/13/20 05:33 Mineral Oil/Petrolatum, White Ophth Oint 3.5 Gm OU Q4HR PRN Dry Eye(s) Ondansetron HCl 4 mg 11/11/20 22:11 Ondansetron 4 Mg/2 Ml Inj IV Q3H PRN Nausea And Vomiting Oxycodone/Acetaminophen 1 tab 08/02/21 22:11 Oxycodone /Acetaminophen 5-325mg Tab PO Q6H PRN Pain, Moderate (4-6) Pantoprazole Sodium 40 mg 11/13/20 14:00 11/14/20 22:34 Pantoprazole 40 Mg Inj IV 40 mg BID CARLOS Administration Paroxetine HCl 10 mg 11/12/20 10:00 11/14/20 09:11 Paroxetine 10 Mg Tab PO 10 mg DAILY CARLOS Administration Ropinirole HCl 1 mg 11/12/20 22:00 11/14/20 22:35 Ropinirole 1 Mg Tab PO 1 mg QHS CARLOS Administration Senna/Docusate Sodium 1 tab 11/14/20 22:00 11/14/20 22:35 Sennosides/Docusate Sodium 8.6/50 Mg Tab FEEDTUBE 1 tab BID CARLOS Administration Simple Syrup 15 ml 11/13/20 17:32 Simple Syrup 15 Ml FEEDTUBE PRN PRN Hypoglycemia Simple Syrup 30 ml 11/13/20 17:32 Simple Syrup 15 Ml FEEDTUBE PRN PRN Hypoglycemia Sodium Bicarbonate 325 mg 11/13/20 17:32 Sodium Bicarbonate 325 Mg Tab FEEDTUBE PRN PRN For Clogged Feeding Tube Sodium Chloride 10 ml 11/12/20 10:00 11/14/20 22:35 Sodium Chloride 0.9% 10 Ml Flush Syringe IV 10 ml BID CARLOS Administration Sodium Chloride 10 ml 11/11/20 22:11 Sodium Chloride 0.9% 10 Ml Flush Syringe IV PRN PRN LINE FLUSH Zinc Sulfate 220 mg 11/13/20 22:00 11/14/20 22:34 Zinc Sulfate 220 Mg Cap PO 220 mg BID CARLOS Administration
[2020-11-15] MEDS: dexAMETHasone 4 MG/ML VIAL IV SCH (10:25)
[2020-11-15] MEDS: PANTOPRAZOLE 40 MG INJ IV SCH ×2 (10:25→20:59)
[2020-11-15] MEDS: DEXTROSE 5% IN WATER 1,000 ML IV SCH (10:25)
[2020-11-15] MEDS: SENNOSIDES/DOCUSATE SODIUM 8.6/50 MG TAB FEEDTUBE SCH ×2 (10:26→21:02)
[2020-11-15] MEDS: ASCORBIC ACID 500 MG TAB PO SCH ×2 (10:26→21:02)
[2020-11-15] MEDS: ZINC SULFATE 220 MG CAP PO SCH ×2 (10:26→21:03)
[2020-11-15] MEDS: PARoxetine 10 MG TAB PO SCH (10:26)
--- NOTE | 2020-11-15 11:48 | Progress Note ---
Assessment and Plan Cultures: Blood culture no growth so far Covid PCR: Positive A/P: 85-year-old female past medical history obesity, chronic low back pain, depression admitted with COVID-19 #Severe COVID-19 pneumonia: Patient presented with a week of symptoms, chest x- ray with diffuse bilateral infiltrates, admission O2 sats 89-90% on room air. Inflammatory markers elevated. Normal procalcitonin. #Acute hypoxemic respiratory failure: Likely secondary to COVID-19 infection. Currently on the vent. #KATLYN: renally dose medications. not a candidate for remdesivir #nephrolithiasis: with associated hydronephrosis. Recs: -Dexamethasone 6 mg IV/PO daily for 10 days -Not a remdesivir candidate due to renal failure -s/p Actemra -Obtain q48-72h inflammatory markers - ferritin, Ddimer, CRP, LDH -Anticoagulation per hospital protocol -Proning as able Thank you for the consult, we will continue to follow. Araceli Chacon MD [facility], [place] [facility] O: [phone] F: [phone] Subjective Date of service: 11/15/20 Principal diagnosis: Ac hypoxemic resp failure; COVID-19 infxn; Pneumonia; KATLYN; AMS; Sepsis Interval history: This morning to 101.1 with a white count of 9.8. Imaging personally reviewed: Chest x-ray: No significant pulmonary abnormality. Objective - Exam Narrative Exam: Physical exam deferred to reduce risk of transmission of COVID-19. Please refer to primary team's note. - Constitutional Vitals: Vital Signs Temp Pulse Resp BP Pulse Ox 99.9 F H 111 H 23 71/53 96 11/15/20 11:43 11/15/20 11:03 11/15/20 10:30 11/15/20 11:03 11/15/20 11:03 Temperature -Last 24 Hours Temperature 99.9 F Temperature 101.1 F Temperature 99.5 F Temperature 99.8 F Temperature 100 F Temperature 100.3 F Temperature 99.5 F Temperature 98.4 F Temperature 98.4 F - Labs CBC & Chem 7: 11/15/20 04:57 11/15/20 04:57 Labs: Abnormal lab results 11/14/20 11/14/20 11/14/20 Range/Units 12:01 17:18 23:00 RDW (13.2-15.2) % D-Dimer (0-234) ng/mlDDU Heparin Anti-Xa Level 0.96 H (0.3-0.7) U.I./ml ABG pH (7.320-7.450) POC ABG pCO2 (32.0-48.0) mmHg ABG Chloride (98-107) mmol/L ABG Glucose (65-95) mg/dL Sodium (137-145) mmol/L Chloride (98-107) mmol/L Carbon Dioxide (22-30) mmol/L BUN (7-17) mg/dL Creatinine (0.6-1.2) mg/dL Glucose (65-100) mg/dL POC Glucose 107 H 173 H (70-105) mg/dL Lactic Acid (0.7-2.0) mmol/L Calcium (8.4-10.2) mg/dL AST (5-40) units/L ALT (7-56) units/L Lactate Dehydrogenase (91-180) units/L C-Reactive Protein (0.00-1.30) mg/dL Total Protein (6.3-8.2) g/dL Albumin (3.9-5) g/dL Arterial Blood Glucose (65-95) mg/dL Arterial Blood Ionized Calcium (4.6-5.3) mg/dL 11/14/20 11/15/20 11/15/20 Range/Units 23:25 01:45 04:57 RDW 16.2 H (13.2-15.2) % D-Dimer (0-234) ng/mlDDU Heparin Anti-Xa Level (0.3-0.7) U.I./ml ABG pH 7.246 L (7.320-7.450) POC ABG pCO2 28.4 L (32.0-48.0) mmHg ABG Chloride 116.0 H (98-107) mmol/L ABG Glucose 164 H (65-95) mg/dL Sodium (137-145) mmol/L Chloride (98-107) mmol/L Carbon Dioxide (22-30) mmol/L BUN (7-17) mg/dL Creatinine (0.6-1.2) mg/dL Glucose (65-100) mg/dL POC Glucose 158 H (70-105) mg/dL Lactic Acid (0.7-2.0) mmol/L Calcium (8.4-10.2) mg/dL AST (5-40) units/L ALT (7-56) units/L Lactate Dehydrogenase (91-180) units/L C-Reactive Protein (0.00-1.30) mg/dL Total Protein (6.3-8.2) g/dL Albumin (3.9-5) g/dL Arterial Blood Glucose 164 H (65-95) mg/dL Arterial Blood Ionized Calcium 4.3 L (4.6-5.3) mg/dL 11/15/20 11/15/20 11/15/20 Range/Units 04:57 04:57 04:57 RDW (13.2-15.2) % D-Dimer 3313.42 H (0-234) ng/mlDDU Heparin Anti-Xa Level 0.81 H (0.3-0.7) U.I./ml ABG pH (7.320-7.450) POC ABG pCO2 (32.0-48.0) mmHg ABG Chloride (98-107) mmol/L ABG Glucose (65-95) mg/dL Sodium 147 H (137-145) mmol/L Chloride 114.0 H (98-107) mmol/L Carbon Dioxide 16 L (22-30) mmol/L BUN 68 H (7-17) mg/dL Creatinine 2.4 H (0.6-1.2) mg/dL Glucose 148 H (65-100) mg/dL POC Glucose (70-105) mg/dL Lactic Acid 3.00 H* (0.7-2.0) mmol/L Calcium 7.3 L (8.4-10.2) mg/dL AST 395 H (5-40) units/L ALT 396 H (7-56) units/L Lactate Dehydrogenase 596 H (91-180) units/L C-Reactive Protein 34.50 H (0.00-1.30) mg/dL Total Protein 5.1 L (6.3-8.2) g/dL Albumin 2.1 L (3.9-5) g/dL Arterial Blood Glucose (65-95) mg/dL Arterial Blood Ionized Calcium (4.6-5.3) mg/dL 11/15/20 11/15/20 11/15/20 Range/Units 05:20 08:26 11:34 RDW (13.2-15.2) % D-Dimer (0-234) ng/mlDDU Heparin Anti-Xa Level (0.3-0.7) U.I./ml ABG pH (7.320-7.450) POC ABG pCO2 (32.0-48.0) mmHg ABG Chloride (98-107) mmol/L ABG Glucose (65-95) mg/dL Sodium (137-145) mmol/L Chloride (98-107) mmol/L Carbon Dioxide (22-30) mmol/L BUN (7-17) mg/dL Creatinine (0.6-1.2) mg/dL Glucose (65-100) mg/dL POC Glucose 124 H 113 H (70-105) mg/dL Lactic Acid 2.60 H* (0.7-2.0) mmol/L Calcium (8.4-10.2) mg/dL AST (5-40) units/L ALT (7-56) units/L Lactate Dehydrogenase (91-180) units/L C-Reactive Protein (0.00-1.30) mg/dL Total Protein (6.3-8.2) g/dL Albumin (3.9-5) g/dL Arterial Blood Glucose (65-95) mg/dL Arterial Blood Ionized Calcium (4.6-5.3) mg/dL
--- NOTE | 2020-11-15 13:22 | Progress Note ---
Assessment and Plan Acute hypoxemic respiratory failure on MVS COVID-19 infection Pneumonia Severe Sepsis Acute toxic metabolic encephalopathy Inadvertently placed left carotid line Acute kidney injury Nephrolithiasis Leukocytosis Metabolic acidosis Mild hypernatremia (Discussed her grave illness with her daughter Betsy at length with RN girma whipple in as well as answered her questions; i apologized for the lack of consistent communication she mentioned explaining the increased work-load with COVID-19 patients) - begin reglan re: high residuals & vomiting - consider proning if no improvement - complete LR @ 75 cc/hr X 2 liters re: Sepsis / hypotension - am Lactic acid level remains elevated (3.0) - continue care as below otherwise; - continue Daily SAT and SBT assessment as tolerated - continue to wean supplemental oxygen for target O2 sat's > 90% acutely - VAP bundle addressed - continue lung protective strategies - continue bronchodilators with pulmonary hygiene per RT - wean per pulmonary driven protocols otherwise - continue accuchecks with glycemic control per SSI (While critically ill target blood glucose of 140-180 mg/dL; avoid hypoglycemia) - sedation prn for target RASS 0 to -1 - avoid nephrotoxins, renally dose all medications - continue to avoid benzodiazepine's, reduce the possibility of delirium - AB's per ID rec's - prn analgesia per CPOT score - Maintenance of sleep-wake cycle, avoid delirium - continue enteral nutritional support at goal rate as tolerated - G.I. & VTE prophylaxis - PT/OT/ROM exercises - continue mobility protocols for pressure ulcer prophylaxis - Monitor hemodynamics closely - continue other care per attending / other consultants - discharge planning ongoing concurrently COVID SPECIFIC INTERVENTIONS - Remdesivir as per ID/Pulmonary developed protocols - continue systemic steroids for severe COVID-19 infection - s/p Actemra - follow repeat COVID tests results - zinc and vitamin C supplementation - Monitor inflammatory markers per facility protocol - ferritin, Ddimer, CRP - therapeutic anticoagulation per system Protocol based on d-dimer and clinical considerations (re: Carotid srtery thrombus) - Continue contact and airborne isolation .... Re-evaluate in am & prn CONDITION: CRITICAL PROGNOSIS: GUARDED CODE STATUS: FULL CODE The high probability of a clinically significant, sudden or life-threatening deterioration of the [respiratory, cardiovascular, renal & neurologic] system(s) required my full and direct attention, intervention and personal management. The aggregate critical care time was [35] minutes without overlap. Time includes spent on; [x] Data Review and interpretation [x] Patient assessment and monitoring of vital signs [x] Documentation [x] Medication orders and management Subjective Date of service: 11/15/20 Principal diagnosis: Ac hypoxemic resp failure; COVID-19 infxn; Pneumonia; KATLYN; AMS; Sepsis Interval history: Patient is seen today for: Acute hypoxemic respiratory failure; COVID-19 infxn; Pneumonia; Acute toxic metabolic encephalopathy; Carotid Artery thrombus; KATLYN; Leukocytosis Seen and examined at bedside; 24hour events reviewed; nursing and respiratory care staff consulted; no adverse overnight events reported to me; resting in bed; remains on MVS; tube feeds held re: Vomiting and high residuals; still with ARDS; AMS is persistent Objective Vital Signs - 12hr 11/15/20 11/15/20 11/15/20 01:30 01:40 01:50 Temperature Pulse Rate 118 H 119 H 119 H Pulse Rate [ From Monitor] Respiratory 25 H 23 22 Rate Blood Pressure 105/67 120/57 117/59 O2 Sat by Pulse 96 96 96 Oximetry 11/15/20 11/15/20 11/15/20 02:00 02:10 02:20 Temperature Pulse Rate 120 H 115 H 119 H Pulse Rate [ From Monitor] Respiratory 23 24 24 Rate Blood Pressure 105/56 100/61 107/50 O2 Sat by Pulse 96 95 96 Oximetry 11/15/20 11/15/20 11/15/20 02:30 02:40 02:50 Temperature Pulse Rate 120 H 119 H 121 H Pulse Rate [ From Monitor] Respiratory 26 H 28 H 25 H Rate Blood Pressure 109/60 105/55 110/64 O2 Sat by Pulse 95 96 95 Oximetry 11/15/20 11/15/20 11/15/20 03:00 03:10 03:18 Temperature 99.8 F H Pulse Rate 120 H 120 H Pulse Rate [ From Monitor] Respiratory 28 H 25 H Rate Blood Pressure 101/62 105/62 O2 Sat by Pulse 96 96 Oximetry 11/15/20 11/15/20 11/15/20 03:20 03:30 03:40 Temperature Pulse Rate 120 H 121 H 121 H Pulse Rate [ From Monitor] Respiratory 28 H 28 H 27 H Rate Blood Pressure 111/57 115/52 106/55 O2 Sat by Pulse 96 95 95 Oximetry 11/15/20 11/15/20 11/15/20 03:50 04:00 04:10 Temperature Pulse Rate 118 H 120 H 121 H Pulse Rate [ 120 H From Monitor] Respiratory 23 26 H 25 H Rate Blood Pressure 111/46 109/52 109/65 O2 Sat by Pulse 96 96 96 Oximetry 11/15/20 11/15/20 11/15/20 04:16 04:20 04:30 Temperature Pulse Rate 121 H 122 H 120 H Pulse Rate [ From Monitor] Respiratory 27 H 26 H Rate Blood Pressure 124/70 110/53 102/58 O2 Sat by Pulse 95 95 95 Oximetry 11/15/20 11/15/20 11/15/20 04:40 04:51 05:01 Temperature Pulse Rate 122 H 121 H 120 H Pulse Rate [ From Monitor] Respiratory 29 H 29 H 29 H Rate Blood Pressure 103/55 93/44 93/44 O2 Sat by Pulse 95 95 96 Oximetry 11/15/20 11/15/20 11/15/20 05:11 05:21 05:31 Temperature Pulse Rate 120 H 115 H 120 H Pulse Rate [ From Monitor] Respiratory 26 H 30 H 30 H Rate Blood Pressure 93/44 93/44 93/44 O2 Sat by Pulse 95 95 96 Oximetry 11/15/20 11/15/20 11/15/20 05:41 05:50 06:00 Temperature Pulse Rate 123 H 120 H 120 H Pulse Rate [ From Monitor] Respiratory 29 H 30 H 31 H Rate Blood Pressure 97/35 87/53 80/37 O2 Sat by Pulse 96 95 96 Oximetry 11/15/20 11/15/20 11/15/20 06:11 06:21 06:30 Temperature Pulse Rate 121 H 121 H Pulse Rate [ From Monitor] Respiratory 32 H 30 H Rate Blood Pressure 97/61 91/62 101/61 O2 Sat by Pulse 97 95 96 Oximetry 11/15/20 11/15/20 11/15/20 06:40 06:51 07:00 Temperature Pulse Rate 121 H 122 H 124 H Pulse Rate [ From Monitor] Respiratory 30 H 24 24 Rate Blood Pressure 90/60 109/60 114/66 O2 Sat by Pulse 97 98 98 Oximetry 11/15/20 11/15/20 11/15/20 07:01 07:10 07:20 Temperature Pulse Rate 124 H 124 H 124 H Pulse Rate [ From Monitor] Respiratory 25 H 27 H Rate Blood Pressure 116/56 123/57 O2 Sat by Pulse 97 97 Oximetry 11/15/20 11/15/20 11/15/20 07:28 07:30 07:39 Temperature 99.5 F Pulse Rate 122 H 127 H Pulse Rate [ From Monitor] Respiratory 27 H Rate Blood Pressure 107/68 107/68 O2 Sat by Pulse 97 96 Oximetry 11/15/20 11/15/20 11/15/20 07:40 07:50 08:00 Temperature 101.1 F H Pulse Rate 124 H 124 H 121 H Pulse Rate [ From Monitor] Respiratory 33 H 29 H 27 H Rate Blood Pressure 112/60 109/60 111/53 O2 Sat by Pulse 97 96 96 Oximetry 11/15/20 11/15/20 11/15/20 08:11 08:20 08:28 Temperature Pulse Rate 123 H 120 H Pulse Rate [ 123 H From Monitor] Respiratory 31 H 30 H 29 H Rate Blood Pressure 115/56 103/53 O2 Sat by Pulse 95 95 96 Oximetry 11/15/20 11/15/20 11/15/20 08:30 08:40 08:50 Temperature Pulse Rate 122 H 120 H 118 H Pulse Rate [ From Monitor] Respiratory 26 H 27 H 26 H Rate Blood Pressure 114/54 121/58 119/55 O2 Sat by Pulse 95 95 95 Oximetry 11/15/20 11/15/20 11/15/20 09:00 09:10 09:20 Temperature Pulse Rate 116 H 116 H 116 H Pulse Rate [ From Monitor] Respiratory 25 H 23 23 Rate Blood Pressure 115/61 123/56 114/55 O2 Sat by Pulse 96 96 96 Oximetry 11/15/20 11/15/20 11/15/20 09:30 09:40 09:50 Temperature Pulse Rate 117 H 115 H 114 H Pulse Rate [ From Monitor] Respiratory 24 22 23 Rate Blood Pressure 114/45 117/53 120/54 O2 Sat by Pulse 96 96 97 Oximetry 11/15/20 11/15/20 11/15/20 10:00 10:10 10:20 Temperature Pulse Rate 113 H 112 H 113 H Pulse Rate [ From Monitor] Respiratory 23 23 23 Rate Blood Pressure 117/59 120/57 121/51 O2 Sat by Pulse 96 97 97 Oximetry 11/15/20 11/15/20 11/15/20 10:30 10:40 10:51 Temperature Pulse Rate 113 H 112 H 116 H Pulse Rate [ From Monitor] Respiratory 23 23 12 Rate Blood Pressure 117/53 118/46 116/49 O2 Sat by Pulse 97 97 Oximetry 11/15/20 11/15/20 11/15/20 11:00 11:03 11:10 Temperature Pulse Rate 111 H 111 H 110 H Pulse Rate [ From Monitor] Respiratory 20 20 Rate Blood Pressure 71/53 71/53 114/54 O2 Sat by Pulse 96 Oximetry 11/15/20 11/15/20 11/15/20 11:20 11:30 11:38 Temperature Pulse Rate 110 H 106 H 109 H Pulse Rate [ From Monitor] Respiratory 21 21 Rate Blood Pressure 122/59 123/55 O2 Sat by Pulse 97 Oximetry 11/15/20 11/15/20 11/15/20 11:40 11:43 11:50 Temperature 99.9 F H Pulse Rate 110 H 106 H Pulse Rate [ From Monitor] Respiratory 21 22 Rate Blood Pressure 129/61 126/54 O2 Sat by Pulse Oximetry 11/15/20 11/15/20 11/15/20 12:00 12:10 12:21 Temperature 99.7 F H Pulse Rate 108 H 106 H 104 H Pulse Rate [ From Monitor] Respiratory 20 20 21 Rate Blood Pressure 133/59 129/60 86/43 O2 Sat by Pulse Oximetry 11/15/20 11/15/20 11/15/20 12:30 12:41 12:48 Temperature Pulse Rate 104 H 102 H Pulse Rate [ 103 H From Monitor] Respiratory 23 21 20 Rate Blood Pressure 75/38 126/50 O2 Sat by Pulse 96 Oximetry 11/15/20 11/15/20 12:50 13:00 Temperature Pulse Rate 105 H 105 H Pulse Rate [ From Monitor] Respiratory 20 21 Rate Blood Pressure 124/58 130/57 O2 Sat by Pulse 99 99 Oximetry Constitutional: appears uncomfortable, other (elderly obese female with mildly increased respiratory effort at rest on MVS) Eyes: non-icteric ENT: oropharynx moist, other (ETT 24 cm NYA) Neck: supple, no lymphadenopathy, no JVD Effort: mildly labored Ascultation: Bilateral: diminished breath sounds, rhonchi (scant) Percussion: Bilateral: not dull Cardiovascular: regular rate and rhythm Gastrointestinal: normoactive bowel sounds, soft, non-tender, non-distended (protuberant) Integumentary: normal Extremities: no cyanosis, no edema, pink and warm, pulses normal Neurologic: non-focal exam (grossly), pupils equal and round, unable to assess Psychiatric: other (unable to assess re: AMS) CBC and BMP: 11/17/20 04:00 11/18/20 02:11 ABG, PT/INR, D-dimer: ABG ABG pH 7.246 (7.320-7.450) L 11/15/20 01:45 POC ABG pCO2 28.4 mmHg (32.0-48.0) L 11/15/20 01:45 POC ABG pO2 83.8 mmHg (83-108) 11/15/20 01:45 POC ABG HCO3 12.1 11/15/20 01:45 ABG O2 Saturation 96.5 (0-100) 11/15/20 01:45 PT/INR, D-dimer PT 16.0 Sec. (12.2-14.9) H 11/13/20 09:51 INR 1.23 (0.87-1.13) H 11/13/20 09:51 D-Dimer 3313.42 ng/mlDDU (0-234) H 11/15/20 04:57 Abnormal lab findings: Abnormal Labs 11/11/20 11/11/20 11/11/20 13:39 13:39 16:59 WBC 19.5 H RBC 5.93 H Hgb 17.0 H Hct 50.6 H RDW Plt Count 449 H Lymph % (Auto) 12.0 L [place] % (Auto) 7.7 H Lymph # (Auto) [place] # (Auto) 1.5 H Seg Neutrophils % 80.0 H Seg Neutrophils # 15.6 H PT INR D-Dimer 1525.92 H Heparin Anti-Xa Level ABG pH POC ABG pCO2 POC ABG pO2 ABG Oxyhemoglobin ABG Sodium ABG Potassium ABG Chloride ABG Glucose Carboxyhemoglobin Sodium Potassium 3.5 L Chloride 97.3 L Carbon Dioxide BUN 30 H Creatinine 0.5 L Glucose 128 H POC Glucose Hemoglobin A1c Lactic Acid Calcium Ferritin AST ALT Lactate Dehydrogenase C-Reactive Protein Total Protein Albumin 3.8 L Arterial Blood Glucose Arterial Blood Ionized Calcium Urine WBC (Auto) U Epithel Cells (Auto) Urine Creatinine Coronavirus (PCR) 11/11/20 11/11/20 11/11/20 16:59 17:12 Unknown WBC RBC Hgb Hct RDW Plt Count Lymph % (Auto) [place] % (Auto) Lymph # (Auto) [place] # (Auto) Seg Neutrophils % Seg Neutrophils # PT INR D-Dimer Heparin Anti-Xa Level ABG pH 7.501 H POC ABG pCO2 POC ABG pO2 55.0 L ABG Oxyhemoglobin 89.5 L ABG Sodium ABG Potassium 3.2 L ABG Chloride ABG Glucose 131 H Carboxyhemoglobin Sodium Potassium Chloride Carbon Dioxide BUN Creatinine Glucose 117 H POC Glucose Hemoglobin A1c Lactic Acid Calcium Ferritin AST ALT Lactate Dehydrogenase 204 H C-Reactive Protein Total Protein Albumin Arterial Blood Glucose 131 H Arterial Blood Ionized Calcium Urine WBC (Auto) U Epithel Cells (Auto) Urine Creatinine Coronavirus (PCR) Positive A 11/12/20 11/12/20 11/12/20 05:07 05:07 05:07 WBC 16.7 H RBC 5.74 H Hgb 16.6 H Hct 50.3 H RDW Plt Count 450 H Lymph % (Auto) 12.1 L [place] % (Auto) 7.5 H Lymph # (Auto) [place] # (Auto) 1.3 H Seg Neutrophils % 77.9 H Seg Neutrophils # 13.0 H PT INR D-Dimer Heparin Anti-Xa Level ABG pH POC ABG pCO2 POC ABG pO2 ABG Oxyhemoglobin ABG Sodium ABG Potassium ABG Chloride ABG Glucose Carboxyhemoglobin Sodium 147 H Potassium Chloride Carbon Dioxide 35 H D BUN 34 H Creatinine Glucose 117 H POC Glucose Hemoglobin A1c 6.6 H Lactic Acid Calcium 11.1 H Ferritin AST ALT Lactate Dehydrogenase C-Reactive Protein Total Protein Albumin Arterial Blood Glucose Arterial Blood Ionized Calcium Urine WBC (Auto) U Epithel Cells (Auto) Urine Creatinine Coronavirus (PCR) 11/12/20 11/13/20 11/13/20 23:58 01:36 04:00 WBC RBC Hgb Hct RDW Plt Count Lymph % (Auto) [place] % (Auto) Lymph # (Auto) [place] # (Auto) Seg Neutrophils % Seg Neutrophils # PT INR D-Dimer Heparin Anti-Xa Level ABG pH POC ABG pCO2 POC ABG pO2 ABG Oxyhemoglobin ABG Sodium 147.3 H ABG Potassium 3.2 L ABG Chloride 109.0 H ABG Glucose 118 H Carboxyhemoglobin 0.3 L Sodium Potassium 3.1 L Chloride Carbon Dioxide BUN 64 H Creatinine 2.2 H D Glucose 105 H POC Glucose 181 H Hemoglobin A1c Lactic Acid Calcium 8.3 L D Ferritin AST 366 H ALT 316 H Lactate Dehydrogenase C-Reactive Protein Total Protein 5.4 L D Albumin 2.5 L Arterial Blood Glucose 118 H Arterial Blood Ionized Calcium Urine WBC (Auto) U Epithel Cells (Auto) Urine Creatinine Coronavirus (PCR) 11/13/20 11/13/20 11/13/20 05:23 08:22 09:51 WBC 15.9 H RBC Hgb Hct 44.4 H RDW Plt Count Lymph % (Auto) 5.7 L [place] % (Auto) 9.0 H Lymph # (Auto) 0.9 L [place] # (Auto) 1.4 H Seg Neutrophils % 85.3 H Seg Neutrophils # 13.6 H PT 16.0 H INR 1.23 H D-Dimer Heparin Anti-Xa Level ABG pH 7.243 L POC ABG pCO2 POC ABG pO2 82.0 L ABG Oxyhemoglobin 93.5 L ABG Sodium 146.6 H ABG Potassium 2.8 L ABG Chloride 114.0 H ABG Glucose 113 H Carboxyhemoglobin 0.4 L Sodium Potassium Chloride Carbon Dioxide BUN Creatinine Glucose POC Glucose Hemoglobin A1c Lactic Acid Calcium Ferritin AST ALT Lactate Dehydrogenase C-Reactive Protein Total Protein Albumin Arterial Blood Glucose 113 H Arterial Blood Ionized Calcium Urine WBC (Auto) U Epithel Cells (Auto) Urine Creatinine Coronavirus (PCR) 11/13/20 11/13/20 11/13/20 09:51 09:51 09:51 WBC RBC Hgb Hct RDW Plt Count Lymph % (Auto) [place] % (Auto) Lymph # (Auto) [place] # (Auto) Seg Neutrophils % Seg Neutrophils # PT INR D-Dimer 5682.19 H Heparin Anti-Xa Level ABG pH POC ABG pCO2 POC ABG pO2 ABG Oxyhemoglobin ABG Sodium ABG Potassium ABG Chloride ABG Glucose Carboxyhemoglobin Sodium Potassium Chloride Carbon Dioxide BUN Creatinine Glucose 104 H POC Glucose Hemoglobin A1c Lactic Acid Calcium Ferritin 1003.0 H AST ALT Lactate Dehydrogenase 1022 H C-Reactive Protein 5.50 H Total Protein Albumin Arterial Blood Glucose Arterial Blood Ionized Calcium Urine WBC (Auto) U Epithel Cells (Auto) Urine Creatinine Coronavirus (PCR) 11/13/20 11/14/20 11/14/20 21:50 00:50 04:25 WBC RBC Hgb Hct RDW Plt Count Lymph % (Auto) [place] % (Auto) Lymph # (Auto) [place] # (Auto) Seg Neutrophils % Seg Neutrophils # PT INR D-Dimer Heparin Anti-Xa Level 0.91 H ABG pH 7.215 L POC ABG pCO2 POC ABG pO2 ABG Oxyhemoglobin ABG Sodium 147.3 H ABG Potassium ABG Chloride 119.0 H ABG Glucose 156 H Carboxyhemoglobin Sodium Potassium Chloride Carbon Dioxide BUN Creatinine Glucose POC Glucose 59 L Hemoglobin A1c Lactic Acid Calcium Ferritin AST ALT Lactate Dehydrogenase C-Reactive Protein Total Protein Albumin Arterial Blood Glucose 156 H Arterial Blood Ionized Calcium 4.3 L Urine WBC (Auto) U Epithel Cells (Auto) Urine Creatinine Coronavirus (PCR) 11/14/20 11/14/20 11/14/20 04:35 04:35 06:15 WBC RBC Hgb Hct 43.9 H RDW 15.3 H Plt Count Lymph % (Auto) [place] % (Auto) Lymph # (Auto) [place] # (Auto) Seg Neutrophils % Seg Neutrophils # PT INR D-Dimer Heparin Anti-Xa Level ABG pH POC ABG pCO2 POC ABG pO2 ABG Oxyhemoglobin ABG Sodium ABG Potassium ABG Chloride ABG Glucose Carboxyhemoglobin Sodium 151 H D Potassium Chloride 116.8 H Carbon Dioxide 18 L BUN 64 H Creatinine 2.1 H Glucose 148 H POC Glucose Hemoglobin A1c Lactic Acid Calcium 7.3 L Ferritin AST ALT Lactate Dehydrogenase C-Reactive Protein 38.00 H Total Protein Albumin Arterial Blood Glucose Arterial Blood Ionized Calcium Urine WBC (Auto) > 182.0 H U Epithel Cells (Auto) 24.0 H Urine Creatinine Coronavirus (PCR) 11/14/20 11/14/20 11/14/20 06:15 06:15 12:01 WBC RBC Hgb Hct RDW Plt Count Lymph % (Auto) [place] % (Auto) Lymph # (Auto) [place] # (Auto) Seg Neutrophils % Seg Neutrophils # PT INR D-Dimer Heparin Anti-Xa Level 1.16 H ABG pH POC ABG pCO2 POC ABG pO2 ABG Oxyhemoglobin ABG Sodium ABG Potassium ABG Chloride ABG Glucose Carboxyhemoglobin Sodium Potassium Chloride Carbon Dioxide BUN Creatinine Glucose POC Glucose 107 H Hemoglobin A1c Lactic Acid Calcium Ferritin AST ALT Lactate Dehydrogenase C-Reactive Protein Total Protein Albumin Arterial Blood Glucose Arterial Blood Ionized Calcium Urine WBC (Auto) U Epithel Cells (Auto) Urine Creatinine 80.2 H Coronavirus (PCR) 11/14/20 11/14/20 11/14/20 17:18 23:00 23:25 WBC RBC Hgb Hct RDW Plt Count Lymph % (Auto) [place] % (Auto) Lymph # (Auto) [place] # (Auto) Seg Neutrophils % Seg Neutrophils # PT INR D-Dimer Heparin Anti-Xa Level 0.96 H ABG pH POC ABG pCO2 POC ABG pO2 ABG Oxyhemoglobin ABG Sodium ABG Potassium ABG Chloride ABG Glucose Carboxyhemoglobin Sodium Potassium Chloride Carbon Dioxide BUN Creatinine Glucose POC Glucose 173 H 158 H Hemoglobin A1c Lactic Acid Calcium Ferritin AST ALT Lactate Dehydrogenase C-Reactive Protein Total Protein Albumin Arterial Blood Glucose Arterial Blood Ionized Calcium Urine WBC (Auto) U Epithel Cells (Auto) Urine Creatinine Coronavirus (PCR) 11/15/20 11/15/20 11/15/20 01:45 04:57 04:57 WBC RBC Hgb Hct RDW 16.2 H Plt Count Lymph % (Auto) [place] % (Auto) Lymph # (Auto) [place] # (Auto) Seg Neutrophils % Seg Neutrophils # PT INR D-Dimer Heparin Anti-Xa Level ABG pH 7.246 L POC ABG pCO2 28.4 L POC ABG pO2 ABG Oxyhemoglobin ABG Sodium ABG Potassium ABG Chloride 116.0 H ABG Glucose 164 H Carboxyhemoglobin Sodium 147 H Potassium Chloride 114.0 H Carbon Dioxide 16 L BUN 68 H Creatinine 2.4 H Glucose 148 H POC Glucose Hemoglobin A1c Lactic Acid Calcium 7.3 L Ferritin AST 395 H ALT 396 H Lactate Dehydrogenase 596 H C-Reactive Protein 34.50 H Total Protein 5.1 L Albumin 2.1 L Arterial Blood Glucose 164 H Arterial Blood Ionized Calcium 4.3 L Urine WBC (Auto) U Epithel Cells (Auto) Urine Creatinine Coronavirus (PCR) 11/15/20 11/15/20 11/15/20 04:57 04:57 05:20 WBC RBC Hgb Hct RDW Plt Count Lymph % (Auto) [place] % (Auto) Lymph # (Auto) [place] # (Auto) Seg Neutrophils % Seg Neutrophils # PT INR D-Dimer 3313.42 H Heparin Anti-Xa Level 0.81 H ABG pH POC ABG pCO2 POC ABG pO2 ABG Oxyhemoglobin ABG Sodium ABG Potassium ABG Chloride ABG Glucose Carboxyhemoglobin Sodium Potassium Chloride Carbon Dioxide BUN Creatinine Glucose POC Glucose 124 H Hemoglobin A1c Lactic Acid 3.00 H* Calcium Ferritin AST ALT Lactate Dehydrogenase C-Reactive Protein Total Protein Albumin Arterial Blood Glucose Arterial Blood Ionized Calcium Urine WBC (Auto) U Epithel Cells (Auto) Urine Creatinine Coronavirus (PCR) 11/15/20 11/15/20 11/15/20 08:26 08:26 11:34 WBC RBC Hgb Hct RDW Plt Count Lymph % (Auto) [place] % (Auto) Lymph # (Auto) [place] # (Auto) Seg Neutrophils % Seg Neutrophils # PT INR D-Dimer Heparin Anti-Xa Level ABG pH POC ABG pCO2 POC ABG pO2 ABG Oxyhemoglobin ABG Sodium ABG Potassium ABG Chloride ABG Glucose Carboxyhemoglobin Sodium Potassium Chloride Carbon Dioxide BUN Creatinine Glucose POC Glucose 113 H Hemoglobin A1c Lactic Acid 2.60 H* Calcium Ferritin 452.8 H AST ALT Lactate Dehydrogenase C-Reactive Protein Total Protein Albumin Arterial Blood Glucose Arterial Blood Ionized Calcium Urine WBC (Auto) U Epithel Cells (Auto) Urine Creatinine Coronavirus (PCR) Chest x-ray: image reviewed Allied health notes reviewed: nursing
--- NOTE | 2020-11-15 18:14 | Event Note ---
Date: 11/15/20 I have called patient's daughter Ms. Jolly Fulton at [phone] and Discussed extensively about the patient tests and reports, consultants sean mmendation poor prognosis, CODE STATUS And different options for care, patient was initially angry with many complaints, but later understood the severity of the patient's condition and the poor prognosis, and wants to discuss with other family members and considered DNR status and even withdrawal of care if all the family members agree. I answered all her questions, And encouraged her to call back if she has any new concerns. She was very appreciative Full code at this point
[2020-11-15] MEDS: HEPARIN/ 0.45% NACL DRIP 25,000 UNIT/500 ML BAG IV SCH (19:18)
[2020-11-15] MEDS: METOCLOPRAMIDE 10 MG/2 ML INJ IV SCH (19:19)
[2020-11-15] MEDS: rOPINIRole 1 MG TAB PO SCH (21:02)
[2020-11-16] MEDS: METOCLOPRAMIDE 10 MG/2 ML INJ IV SCH ×4 (01:55→18:00)
--- NOTE | 2020-11-16 02:54 | XRay Report ---
CHEST - 1 VIEW INDICATION: follow up respiratory failure COMPARISON: Yesterday FINDINGS: SUPPORT DEVICES: Stable support device positioning. HEART: Stable cardiomediastinal silhouette. LUNGS/PLEURA: Persistent patchy bibasilar airspace disease. ADDITIONAL FINDINGS: None. IMPRESSION: Unchanged exam. Signer Name: Michael Booker MD Signed: 11/16/2020 2:50 AM Workstation Name: [id number]
[2020-11-16] MEDS: DEXTROSE 5% IN WATER 1,000 ML IV SCH (03:09)
--- NOTE | 2020-11-16 05:17 | Progress Note ---
Assessment and Plan Acute hypoxemic respiratory failure on MVS COVID-19 infection Pneumonia Severe Sepsis with shock Acute toxic metabolic encephalopathy Inadvertently placed left carotid line Acute kidney injury Nephrolithiasis Leukocytosis Metabolic acidosis Mild hypernatremia -CXR reviewed- the LIJ CVL is not in the venous system. -Needs the line removed -Wean vasopressor support for MAP>65 -Continue to titrate supplemental oxygen to keep SpO2 89-90% - continue Daily SAT and SBT assessment as tolerated - VAP bundle addressed - continue lung protective strategies, monitor airway pressures closely - continue bronchodilators with pulmonary hygiene per RT -Daily assessment fro readiness to wean - continue accuchecks with glycemic control per SSI (While critically ill target blood glucose of 140-180 mg/dL; avoid hypoglycemia) - sedation prn for target RASS -4 and for ventilator synchrony - avoid nephrotoxins, renally dose all medications - continue to avoid benzodiazepines, reduce the possibility of delirium - Antibiotics per ID recommendations - continue enteral nutritional support at goal rate as tolerated -Stress ulcer prophylaxis -ROM exercises - continue mobility protocols for pressure ulcer prophylaxis - Monitor hemodynamics closely - continue other care per attending / other consultants COVID SPECIFIC INTERVENTIONS -Did not recieve Remdesivir at presentation secondary to renal failure - continue systemic steroids for severe COVID-19 infection -Dexamethasone 6 mg IV/PO daily for 10 days - s/p Actemra - zinc and vitamin C supplementation - Monitor inflammatory markers per facility protocol - ferritin, Ddimer, CRP - therapeutic anticoagulation per system Protocol based on d-dimer and clinical considerations (re: Carotid artery thrombus) On heparin infusion, trend platelet counts and monitor for bleeding - Continue contact and airborne isolation CONDITION: CRITICAL PROGNOSIS: GUARDED CODE STATUS: FULL CODE The high probability of a clinically significant, sudden or life-threatening det erioration of the [respiratory, cardiovascular, renal & neurologic] system(s) required my full and direct attention, intervention and personal management. The aggregate critical care time was [45] minutes without overlap. Time includes spent on; [x] Data Review and interpretation [x] Patient assessment and monitoring of vital signs [x] Documentation [x] Medication orders and management Subjective Date of service: 11/16/20 Principal diagnosis: Ac hypoxemic resp failure; COVID-19 infxn; Pneumonia; KATLYN; AMS; Sepsis Interval history: Patient is seen today for: Acute hypoxemic respiratory failure; COVID-19 infxn; Pneumonia; Acute toxic metabolic encephalopathy; Carotid Artery thrombus; KATLYN; Leukocytosis Seen and examined at bedside; 24hour events reviewed; nursing and respiratory care staff consulted; no adverse overnight events reported to me; resting in bed; remains on MVS, on going need for vasopressor support, on heparin infusion PEEP +10/FIO2 90% P/F 130. Sedated No fevers overnight, no vomiting Objective Vital Signs - 12hr 11/15/20 11/15/20 11/15/20 17:20 17:25 17:30 Temperature 98.9 F Pulse Rate Pulse Rate [ From Monitor] Respiratory Rate Blood Pressure 127/54 128/59 O2 Sat by Pulse 98 99 Oximetry 11/15/20 11/15/20 11/15/20 17:40 17:50 18:00 Temperature Pulse Rate Pulse Rate [ From Monitor] Respiratory Rate Blood Pressure 123/58 129/54 130/52 O2 Sat by Pulse 99 97 99 Oximetry 11/15/20 11/15/20 11/15/20 18:10 18:20 18:30 Temperature Pulse Rate Pulse Rate [ From Monitor] Respiratory Rate Blood Pressure 133/65 129/57 132/59 O2 Sat by Pulse 99 99 98 Oximetry 11/15/20 11/15/20 11/15/20 18:40 18:50 19:00 Temperature Pulse Rate Pulse Rate [ From Monitor] Respiratory Rate Blood Pressure 135/53 129/59 133/56 O2 Sat by Pulse 98 100 97 Oximetry 11/15/20 11/15/20 11/15/20 19:10 19:20 19:29 Temperature 98.8 F Pulse Rate 94 H Pulse Rate [ From Monitor] Respiratory 22 Rate Blood Pressure 130/60 140/59 O2 Sat by Pulse 99 99 Oximetry 11/15/20 11/15/20 11/15/20 19:30 19:40 19:50 Temperature Pulse Rate 94 H 91 H 92 H Pulse Rate [ From Monitor] Respiratory 22 20 21 Rate Blood Pressure 139/68 135/57 134/56 O2 Sat by Pulse 96 96 96 Oximetry 11/15/20 11/15/20 11/15/20 20:00 20:03 20:10 Temperature 98.1 F Pulse Rate 91 H 91 H 89 Pulse Rate [ 91 H From Monitor] Respiratory 20 20 18 Rate Blood Pressure 139/61 133/69 O2 Sat by Pulse 96 96 96 Oximetry 11/15/20 11/15/2011/15/21 20:20 20:30 20:40 Temperature Pulse Rate 90 89 90 Pulse Rate [ From Monitor] Respiratory 20 20 20 Rate Blood Pressure 133/59 137/60 137/60 O2 Sat by Pulse 96 95 96 Oximetry 11/15/20 11/15/20 11/15/20 20:50 21:00 21:06 Temperature Pulse Rate 89 90 90 Pulse Rate [ From Monitor] Respiratory 19 16 Rate Blood Pressure 136/55 143/66 155/68 O2 Sat by Pulse 95 97 96 Oximetry 11/15/20 11/15/20 11/15/20 21:10 21:20 21:30 Temperature Pulse Rate 92 H 90 88 Pulse Rate [ From Monitor] Respiratory 20 20 19 Rate Blood Pressure 136/71 135/51 138/56 O2 Sat by Pulse 96 97 95 Oximetry 11/15/20 11/15/20 11/15/20 21:40 21:45 21:50 Temperature Pulse Rate 91 H 89 89 Pulse Rate [ From Monitor] Respiratory 20 20 19 Rate Blood Pressure 139/61 136/57 143/60 O2 Sat by Pulse 96 96 96 Oximetry 11/15/20 11/15/20 11/15/20 22:00 22:10 22:20 Temperature Pulse Rate 90 90 89 Pulse Rate [ From Monitor] Respiratory 20 17 20 Rate Blood Pressure 131/60 132/66 138/65 O2 Sat by Pulse 95 95 95 Oximetry 11/15/20 11/15/20 11/15/20 22:30 22:40 22:50 Temperature Pulse Rate 87 86 88 Pulse Rate [ From Monitor] Respiratory 21 17 20 Rate Blood Pressure 132/61 138/59 137/61 O2 Sat by Pulse 98 95 96 Oximetry 11/15/20 11/15/20 11/15/20 23:00 23:10 23:20 Temperature Pulse Rate 89 87 86 Pulse Rate [ From Monitor] Respiratory 20 19 20 Rate Blood Pressure 129/61 128/63 139/60 O2 Sat by Pulse 100 99 96 Oximetry 11/15/20 11/15/20 11/15/20 23:30 23:40 23:43 Temperature 98.8 F Pulse Rate 84 86 Pulse Rate [ From Monitor] Respiratory 18 20 Rate Blood Pressure 130/66 137/64 O2 Sat by Pulse 97 96 Oximetry 11/15/20 11/16/20 11/16/20 23:50 00:00 00:10 Temperature Pulse Rate 86 84 86 Pulse Rate [ 84 From Monitor] Respiratory 20 18 20 Rate Blood Pressure 138/64 140/60 140/61 O2 Sat by Pulse 95 95 97 Oximetry 11/16/20 11/16/20 11/16/20 00:20 00:30 00:40 Temperature Pulse Rate 83 84 82 Pulse Rate [ From Monitor] Respiratory 18 19 20 Rate Blood Pressure 140/59 143/60 142/62 O2 Sat by Pulse 97 96 97 Oximetry 11/16/20 11/16/20 11/16/20 00:50 00:52 01:00 Temperature Pulse Rate 83 82 83 Pulse Rate [ From Monitor] Respiratory 20 18 Rate Blood Pressure 135/64 135/64 135/60 O2 Sat by Pulse 96 97 97 Oximetry 11/16/20 11/16/20 11/16/20 01:10 01:20 01:30 Temperature Pulse Rate 83 81 82 Pulse Rate [ From Monitor] Respiratory 21 19 17 Rate Blood Pressure 141/67 143/63 134/64 O2 Sat by Pulse 97 98 97 Oximetry 11/16/20 11/16/20 11/16/20 01:40 01:50 02:00 Temperature Pulse Rate 81 80 81 Pulse Rate [ From Monitor] Respiratory 20 19 18 Rate Blood Pressure 141/65 143/64 149/74 O2 Sat by Pulse 96 97 97 Oximetry 11/16/20 11/16/20 11/16/20 02:10 02:20 02:30 Temperature Pulse Rate 81 80 79 Pulse Rate [ From Monitor] Respiratory 19 20 19 Rate Blood Pressure 147/57 125/58 144/64 O2 Sat by Pulse 95 96 98 Oximetry 11/16/20 11/16/20 11/16/20 02:40 02:50 03:00 Temperature 98.1 F Pulse Rate 82 81 80 Pulse Rate [ From Monitor] Respiratory 18 20 20 Rate Blood Pressure 160/71 144/64 137/62 O2 Sat by Pulse 99 99 99 Oximetry 11/16/20 11/16/20 11/16/20 03:10 03:20 03:30 Temperature Pulse Rate 80 79 79 Pulse Rate [ From Monitor] Respiratory 21 20 18 Rate Blood Pressure 136/62 137/61 129/68 O2 Sat by Pulse 99 98 100 Oximetry 11/16/20 11/16/20 11/16/20 03:40 03:50 04:00 Temperature Pulse Rate 78 80 Pulse Rate [ 83 From Monitor] Respiratory 20 18 10 L Rate Blood Pressure 138/62 141/62 O2 Sat by Pulse 100 100 100 Oximetry 11/16/20 11/16/20 11/16/20 04:01 04:10 04:20 Temperature Pulse Rate 83 81 80 Pulse Rate [ From Monitor] Respiratory 10 L 20 20 Rate Blood Pressure 138/80 137/68 142/62 O2 Sat by Pulse 100 99 98 Oximetry 11/16/20 11/16/20 04:30 04:37 Temperature Pulse Rate 78 80 Pulse Rate [ From Monitor] Respiratory 17 Rate Blood Pressure 140/83 140/69 O2 Sat by Pulse 97 100 Oximetry Constitutional: no acute distress, other (elderly obese female with mildly increased respiratory effort at rest on MVS) Eyes: non-icteric ENT: oropharynx moist, other (ETT 24 cm NYA) Neck: supple, no lymphadenopathy, no JVD Effort: mildly labored Ascultation: Bilateral: diminished breath sounds, rhonchi Percussion: Bilateral: not dull Cardiovascular: regular rate and rhythm, other (S1,S2) Gastrointestinal: normoactive bowel sounds, soft, non-tender, non-distended (protuberant) Integumentary: normal Extremities: no cyanosis, no edema, pink and warm, pulses normal Neurologic: pupils equal and round, unable to assess Psychiatric: other (unable to assess re: AMS) CBC and BMP: 11/17/20 04:00 11/17/20 Unknown ABG, PT/INR, D-dimer: ABG ABG pH 7.261 (7.320-7.450) L 11/16/20 03:39 POC ABG pCO2 31.2 mmHg (32.0-48.0) L 11/16/20 03:39 POC ABG pO2 117.3 mmHg (83-108) H 11/16/20 03:39 POC ABG HCO3 13.7 11/16/20 03:39 ABG O2 Saturation 98.6 (0-100) 11/16/20 03:39 PT/INR, D-dimer PT 16.0 Sec. (12.2-14.9) H 11/13/20 09:51 INR 1.23 (0.87-1.13) H 11/13/20 09:51 D-Dimer 3313.42 ng/mlDDU (0-234) H 11/15/20 04:57 Abnormal lab findings: Abnormal Labs 11/11/20 11/11/20 11/11/20 13:39 13:39 16:59 WBC 19.5 H RBC 5.93 H Hgb 17.0 H Hct 50.6 H RDW Plt Count 449 H Lymph % (Auto) 12.0 L [place] % (Auto) 7.7 H Lymph # (Auto) [place] # (Auto) 1.5 H Seg Neutrophils % 80.0 H Seg Neutrophils # 15.6 H PT INR D-Dimer 1525.92 H Heparin Anti-Xa Level ABG pH POC ABG pCO2 POC ABG pO2 ABG Oxyhemoglobin ABG Sodium ABG Potassium ABG Chloride ABG Glucose Carboxyhemoglobin Sodium Potassium 3.5 L Chloride 97.3 L Carbon Dioxide BUN 30 H Creatinine 0.5 L Glucose 128 H POC Glucose Hemoglobin A1c Lactic Acid Calcium Ferritin AST ALT Lactate Dehydrogenase C-Reactive Protein Total Protein Albumin 3.8 L Arterial Blood Glucose Arterial Blood Ionized Calcium Urine WBC (Auto) U Epithel Cells (Auto) Urine Creatinine Coronavirus (PCR) 11/11/20 11/11/20 11/11/20 16:59 17:12 Unknown WBC RBC Hgb Hct RDW Plt Count Lymph % (Auto) [place] % (Auto) Lymph # (Auto) [place] # (Auto) Seg Neutrophils % Seg Neutrophils # PT INR D-Dimer Heparin Anti-Xa Level ABG pH 7.501 H POC ABG pCO2 POC ABG pO2 55.0 L ABG Oxyhemoglobin 89.5 L ABG Sodium ABG Potassium 3.2 L ABG Chloride ABG Glucose 131 H Carboxyhemoglobin Sodium Potassium Chloride Carbon Dioxide BUN Creatinine Glucose 117 H POC Glucose Hemoglobin A1c Lactic Acid Calcium Ferritin AST ALT Lactate Dehydrogenase 204 H C-Reactive Protein Total Protein Albumin Arterial Blood Glucose 131 H Arterial Blood Ionized Calcium Urine WBC (Auto) U Epithel Cells (Auto) Urine Creatinine Coronavirus (PCR) Positive A 11/12/20 11/12/20 11/12/20 05:07 05:07 05:07 WBC 16.7 H RBC 5.74 H Hgb 16.6 H Hct 50.3 H RDW Plt Count 450 H Lymph % (Auto) 12.1 L [place] % (Auto) 7.5 H Lymph # (Auto) [place] # (Auto) 1.3 H Seg Neutrophils % 77.9 H Seg Neutrophils # 13.0 H PT INR D-Dimer Heparin Anti-Xa Level ABG pH POC ABG pCO2 POC ABG pO2 ABG Oxyhemoglobin ABG Sodium ABG Potassium ABG Chloride ABG Glucose Carboxyhemoglobin Sodium 147 H Potassium Chloride Carbon Dioxide 35 H D BUN 34 H Creatinine Glucose 117 H POC Glucose Hemoglobin A1c 6.6 H Lactic Acid Calcium 11.1 H Ferritin AST ALT Lactate Dehydrogenase C-Reactive Protein Total Protein Albumin Arterial Blood Glucose Arterial Blood Ionized Calcium Urine WBC (Auto) U Epithel Cells (Auto) Urine Creatinine Coronavirus (PCR) 11/12/20 11/13/20 11/13/20 23:58 01:36 04:00 WBC RBC Hgb Hct RDW Plt Count Lymph % (Auto) [place] % (Auto) Lymph # (Auto) [place] # (Auto) Seg Neutrophils % Seg Neutrophils # PT INR D-Dimer Heparin Anti-Xa Level ABG pH POC ABG pCO2 POC ABG pO2 ABG Oxyhemoglobin ABG Sodium 147.3 H ABG Potassium 3.2 L ABG Chloride 109.0 H ABG Glucose 118 H Carboxyhemoglobin 0.3 L Sodium Potassium 3.1 L Chloride Carbon Dioxide BUN 64 H Creatinine 2.2 H D Glucose 105 H POC Glucose 181 H Hemoglobin A1c Lactic Acid Calcium 8.3 L D Ferritin AST 366 H ALT 316 H Lactate Dehydrogenase C-Reactive Protein Total Protein 5.4 L D Albumin 2.5 L Arterial Blood Glucose 118 H Arterial Blood Ionized Calcium Urine WBC (Auto) U Epithel Cells (Auto) Urine Creatinine Coronavirus (PCR) 11/13/20 11/13/20 11/13/20 05:23 08:22 09:51 WBC 15.9 H RBC Hgb Hct 44.4 H RDW Plt Count Lymph % (Auto) 5.7 L [place] % (Auto) 9.0 H Lymph # (Auto) 0.9 L [place] # (Auto) 1.4 H Seg Neutrophils % 85.3 H Seg Neutrophils # 13.6 H PT 16.0 H INR 1.23 H D-Dimer Heparin Anti-Xa Level ABG pH 7.243 L POC ABG pCO2 POC ABG pO2 82.0 L ABG Oxyhemoglobin 93.5 L ABG Sodium 146.6 H ABG Potassium 2.8 L ABG Chloride 114.0 H ABG Glucose 113 H Carboxyhemoglobin 0.4 L Sodium Potassium Chloride Carbon Dioxide BUN Creatinine Glucose POC Glucose Hemoglobin A1c Lactic Acid Calcium Ferritin AST ALT Lactate Dehydrogenase C-Reactive Protein Total Protein Albumin Arterial Blood Glucose 113 H Arterial Blood Ionized Calcium Urine WBC (Auto) U Epithel Cells (Auto) Urine Creatinine Coronavirus (PCR) 11/13/20 11/13/20 11/13/20 09:51 09:51 09:51 WBC RBC Hgb Hct RDW Plt Count Lymph % (Auto) [place] % (Auto) Lymph # (Auto) [place] # (Auto) Seg Neutrophils % Seg Neutrophils # PT INR D-Dimer 5682.19 H Heparin Anti-Xa Level ABG pH POC ABG pCO2 POC ABG pO2 ABG Oxyhemoglobin ABG Sodium ABG Potassium ABG Chloride ABG Glucose Carboxyhemoglobin Sodium Potassium Chloride Carbon Dioxide BUN Creatinine Glucose 104 H POC Glucose Hemoglobin A1c Lactic Acid Calcium Ferritin 1003.0 H AST ALT Lactate Dehydrogenase 1022 H C-Reactive Protein 5.50 H Total Protein Albumin Arterial Blood Glucose Arterial Blood Ionized Calcium Urine WBC (Auto) U Epithel Cells (Auto) Urine Creatinine Coronavirus (PCR) 11/13/20 11/14/20 11/14/20 21:50 00:50 04:25 WBC RBC Hgb Hct RDW Plt Count Lymph % (Auto) [place] % (Auto) Lymph # (Auto) [place] # (Auto) Seg Neutrophils % Seg Neutrophils # PT INR D-Dimer Heparin Anti-Xa Level 0.91 H ABG pH 7.215 L POC ABG pCO2 POC ABG pO2 ABG Oxyhemoglobin ABG Sodium 147.3 H ABG Potassium ABG Chloride 119.0 H ABG Glucose 156 H Carboxyhemoglobin Sodium Potassium Chloride Carbon Dioxide BUN Creatinine Glucose POC Glucose 59 L Hemoglobin A1c Lactic Acid Calcium Ferritin AST ALT Lactate Dehydrogenase C-Reactive Protein Total Protein Albumin Arterial Blood Glucose 156 H Arterial Blood Ionized Calcium 4.3 L Urine WBC (Auto) U Epithel Cells (Auto) Urine Creatinine Coronavirus (PCR) 11/14/20 11/14/20 11/14/20 04:35 04:35 06:15 WBC RBC Hgb Hct 43.9 H RDW 15.3 H Plt Count Lymph % (Auto) [place] % (Auto) Lymph # (Auto) [place] # (Auto) Seg Neutrophils % Seg Neutrophils # PT INR D-Dimer Heparin Anti-Xa Level ABG pH POC ABG pCO2 POC ABG pO2 ABG Oxyhemoglobin ABG Sodium ABG Potassium ABG Chloride ABG Glucose Carboxyhemoglobin Sodium 151 H D Potassium Chloride 116.8 H Carbon Dioxide 18 L BUN 64 H Creatinine 2.1 H Glucose 148 H POC Glucose Hemoglobin A1c Lactic Acid Calcium 7.3 L Ferritin AST ALT Lactate Dehydrogenase C-Reactive Protein 38.00 H Total Protein Albumin Arterial Blood Glucose Arterial Blood Ionized Calcium Urine WBC (Auto) > 182.0 H U Epithel Cells (Auto) 24.0 H Urine Creatinine Coronavirus (PCR) 11/14/20 11/14/20 11/14/20 06:15 06:15 12:01 WBC RBC Hgb Hct RDW Plt Count Lymph % (Auto) [place] % (Auto) Lymph # (Auto) [place] # (Auto) Seg Neutrophils % Seg Neutrophils # PT INR D-Dimer Heparin Anti-Xa Level 1.16 H ABG pH POC ABG pCO2 POC ABG pO2 ABG Oxyhemoglobin ABG Sodium ABG Potassium ABG Chloride ABG Glucose Carboxyhemoglobin Sodium Potassium Chloride Carbon Dioxide BUN Creatinine Glucose POC Glucose 107 H Hemoglobin A1c Lactic Acid Calcium Ferritin AST ALT Lactate Dehydrogenase C-Reactive Protein Total Protein Albumin Arterial Blood Glucose Arterial Blood Ionized Calcium Urine WBC (Auto) U Epithel Cells (Auto) Urine Creatinine 80.2 H Coronavirus (PCR) 11/14/20 11/14/20 11/14/20 17:18 23:00 23:25 WBC RBC Hgb Hct RDW Plt Count Lymph % (Auto) [place] % (Auto) Lymph # (Auto) [place] # (Auto) Seg Neutrophils % Seg Neutrophils # PT INR D-Dimer Heparin Anti-Xa Level 0.96 H ABG pH POC ABG pCO2 POC ABG pO2 ABG Oxyhemoglobin ABG Sodium ABG Potassium ABG Chloride ABG Glucose Carboxyhemoglobin Sodium Potassium Chloride Carbon Dioxide BUN Creatinine Glucose POC Glucose 173 H 158 H Hemoglobin A1c Lactic Acid Calcium Ferritin AST ALT Lactate Dehydrogenase C-Reactive Protein Total Protein Albumin Arterial Blood Glucose Arterial Blood Ionized Calcium Urine WBC (Auto) U Epithel Cells (Auto) Urine Creatinine Coronavirus (PCR) 11/15/20 11/15/20 11/15/20 01:45 04:57 04:57 WBC RBC Hgb Hct RDW 16.2 H Plt Count Lymph % (Auto) [place] % (Auto) Lymph # (Auto) [place] # (Auto) Seg Neutrophils % Seg Neutrophils # PT INR D-Dimer Heparin Anti-Xa Level ABG pH 7.246 L POC ABG pCO2 28.4 L POC ABG pO2 ABG Oxyhemoglobin ABG Sodium ABG Potassium ABG Chloride 116.0 H ABG Glucose 164 H Carboxyhemoglobin Sodium 147 H Potassium Chloride 114.0 H Carbon Dioxide 16 L BUN 68 H Creatinine 2.4 H Glucose 148 H POC Glucose Hemoglobin A1c Lactic Acid Calcium 7.3 L Ferritin AST 395 H ALT 396 H Lactate Dehydrogenase 596 H C-Reactive Protein 34.50 H Total Protein 5.1 L Albumin 2.1 L Arterial Blood Glucose 164 H Arterial Blood Ionized Calcium 4.3 L Urine WBC (Auto) U Epithel Cells (Auto) Urine Creatinine Coronavirus (PCR) 11/15/20 11/15/20 11/15/20 04:57 04:57 05:20 WBC RBC Hgb Hct RDW Plt Count Lymph % (Auto) [place] % (Auto) Lymph # (Auto) [place] # (Auto) Seg Neutrophils % Seg Neutrophils # PT INR D-Dimer 3313.42 H Heparin Anti-Xa Level 0.81 H ABG pH POC ABG pCO2 POC ABG pO2 ABG Oxyhemoglobin ABG Sodium ABG Potassium ABG Chloride ABG Glucose Carboxyhemoglobin Sodium Potassium Chloride Carbon Dioxide BUN Creatinine Glucose POC Glucose 124 H Hemoglobin A1c Lactic Acid 3.00 H* Calcium Ferritin AST ALT Lactate Dehydrogenase C-Reactive Protein Total Protein Albumin Arterial Blood Glucose Arterial Blood Ionized Calcium Urine WBC (Auto) U Epithel Cells (Auto) Urine Creatinine Coronavirus (PCR) 11/15/20 11/15/20 11/15/20 08:26 08:26 11:34 WBC RBC Hgb Hct RDW Plt Count Lymph % (Auto) [place] % (Auto) Lymph # (Auto) [place] # (Auto) Seg Neutrophils % Seg Neutrophils # PT INR D-Dimer Heparin Anti-Xa Level ABG pH POC ABG pCO2 POC ABG pO2 ABG Oxyhemoglobin ABG Sodium ABG Potassium ABG Chloride ABG Glucose Carboxyhemoglobin Sodium Potassium Chloride Carbon Dioxide BUN Creatinine Glucose POC Glucose 113 H Hemoglobin A1c Lactic Acid 2.60 H* Calcium Ferritin 452.8 H AST ALT Lactate Dehydrogenase C-Reactive Protein Total Protein Albumin Arterial Blood Glucose Arterial Blood Ionized Calcium Urine WBC (Auto) U Epithel Cells (Auto) Urine Creatinine Coronavirus (PCR) 11/15/20 11/15/20 11/16/20 16:43 23:16 03:39 WBC RBC Hgb Hct RDW Plt Count Lymph % (Auto) [place] % (Auto) Lymph # (Auto) [place] # (Auto) Seg Neutrophils % Seg Neutrophils # PT INR D-Dimer Heparin Anti-Xa Level ABG pH 7.261 L POC ABG pCO2 31.2 L POC ABG pO2 117.3 H ABG Oxyhemoglobin ABG Sodium 135.8 L ABG Potassium ABG Chloride 112.0 H ABG Glucose 148 H Carboxyhemoglobin 0.4 L Sodium Potassium Chloride Carbon Dioxide BUN Creatinine Glucose POC Glucose 107 H 113 H Hemoglobin A1c Lactic Acid Calcium Ferritin AST ALT Lactate Dehydrogenase C-Reactive Protein Total Protein Albumin Arterial Blood Glucose 148 H Arterial Blood Ionized Calcium 4.1 L Urine WBC (Auto) U Epithel Cells (Auto) Urine Creatinine Coronavirus (PCR) 11/16/20 04:51 WBC RBC Hgb Hct RDW Plt Count Lymph % (Auto) [place] % (Auto) Lymph # (Auto) [place] # (Auto) Seg Neutrophils % Seg Neutrophils # PT INR D-Dimer Heparin Anti-Xa Level ABG pH POC ABG pCO2 POC ABG pO2 ABG Oxyhemoglobin ABG Sodium ABG Potassium ABG Chloride ABG Glucose Carboxyhemoglobin Sodium Potassium Chloride Carbon Dioxide BUN Creatinine Glucose POC Glucose 119 H Hemoglobin A1c Lactic Acid Calcium Ferritin AST ALT Lactate Dehydrogenase C-Reactive Protein Total Protein Albumin Arterial Blood Glucose Arterial Blood Ionized Calcium Urine WBC (Auto) U Epithel Cells (Auto) Urine Creatinine Coronavirus (PCR) Chest x-ray: image reviewed Allied health notes reviewed: RT
[2020-11-16] MEDS: INSULIN REGULAR, HUMAN 100 UNITS/1 ML SUB-Q SCH ×4 (05:28→23:10)
[2020-11-16 07:00] LABS: Albumin 1.9 g/dL (3.9-5); Calcium 6.1 mg/dL (8.4-10.2)
[2020-11-16] MEDS: SODIUM BICARBONATE 150 MEQ in DEXTROSE 5% IN WATER 1,000 ML IV SCH ×2 (07:12→16:48)
[2020-11-16] MEDS: IPRATROPIUM/ALBUTEROL SULFATE 3 ML AMPUL.NEB IH SCH ×3 (07:50→16:33)
--- NOTE | 2020-11-16 08:05 | Progress Note ---
Assessment and Plan Assessment and plan: --Acute respiratory failure with hypoxia/intubated[11/13/2020] Current Visit: Yes Status: Acute Secondary to acute severe COVID-19 pneumonia Continue ventilatory support, treat the underlying cause Pulmonary and ID following Wean as tolerated and extubate --Positive COVID-19 infection Current Visit: Yes Status: Acute Continue current management per COVID-19 guidelines Dexamethasone 6 mg IV/PO daily for 10 days Not a remdesivir candidate due to renal failure Follow inflammatory markers - ferritin, Ddimer, CRP, LDH Received Actemra, Prone position if possible ID following --Severe sepsis Current Visit: Yes Status: Acute Due to COVID-19 pneumonia, as well as UTI patient has fever tachycardia, tachypnea and leukocytosis Urine analysis consistent with UTI Antibiotics discontinued per ID as procalcitonin is normal --Septic shock; requiring vasopressors Current Visit: Yes Status: Acute Continue nor epi, IV fluids and supportive care Wean as tolerated --Elevated D-dimers/COVID-19 pneumonia Current Visit: Yes Status: Acute Patient is already on heparin drip due [to carotid arterial line] Continue supportive care --Transaminitis; COVID-19 related Current Visit: Yes Status: Acute Worsening LFTs, closely monitor GI consult if needed, treat the underlying cause --inadvertent placement of carotid arterial line; Current Visit: Yes Status: Acute Vascular /IR evaluated the patient Initiated heparin drip to prevent thrombosis Strictly advised not to use the arterial line --Dehydration Current Visit: Yes Status: Acute Continue IV fluids , supportive care --Intractable nausea and vomiting Current Visit: Yes Status: Acute Continue antiemetics supportive care --Lumbar compression fracture Current Visit: Yes Status: Chronic Lumbar compression fractures L3-L4-L5 on the CT scan of the abdomen and pelvis Pain management as necessary, supportive care --T2DM (type 2 diabetes mellitus) Current Visit: Yes Status: Chronic Accu-Chek sliding scale coverage ADA diet hemoglobin A1c 6.6 --Hydronephrosis of left kidney/bilateral ureteric stone Current Visit: Yes Status: Acute urology evaluated bilateral ureteric stone; s/p cystoscopy bilateral stent placement, internal string[11/13/2020] --Severe protein calorie malnutrition; Current Visit: Yes Status: Chronic Nutrition supplements, [place]obb[place] feeding --DVT prophylaxis Current Visit: Yes Status: Acute Plan to address problem: On heparin and GI prophylaxis --full CODE STATUS Critical care time The high probability of a clinically significant, sudden or life threatening deterioration of the [ respiratory, infectious, neurologic, renal, musculoskeletal and GI] system(s) required my full and direct attention, intervention and personal management. The aggregate critical care time was [45] minutes. This time is in addition to time spent performing reported procedures but includes the following: [x] Data Review and interpretation [x] Patient assessment and monitoring of vital signs [x] Documentation [x] Medication orders and management Brief history and daily hospital course 85-year-old female with obesity, chronic low back pain, muscle spasms and depression presents with nausea vomiting and decreased p.o. intake for 1 w [place]. Patient also complains of mild diarrhea. No abdominal pain. No fever or dysuria. She is bedridden and nonambulatory. Patient is oriented to self and knows that she is in the hospital. Patient says the year is 2080. Oxygen saturation is 99 to 90% on room air also complains of cough and shortness of breath. Denies any home oxygen. As per daughter patient has pain having nausea and vomiting for past 3 days. EMS was called 1 day to assess and they gave IV fluids but did not transport the patient. Today because of the persistent vomiting and apparent small amount of blood in vomit patient was transferred to [facility] for further evaluation and treatment. As mentioned patient is slightly hypoxic at 88 to 90% on room air. Continues to vomit. 85-yearqold female with a past medical history of chronic lower back pain, chronic UTI, and depression with previous cholecystectomy, bladder surgery, kidney surgery presents to the hospital complaints of nausea and vomiting with decreased p.o. intake x1 week. Patient also complains of mild diarrhea. She denies abdominal pain, fever, dysuria. She is chronically nonambulatory. She is currently oriented to self and knows that she is currently [place] but states the year is 2080. Patient noted to have room air saturation of 89 to 90%. Complains of cough without shortness of breath. Denies home oxygen use. 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 and ID consult 11/14/2020 Patient intubated Weaning in progress 11/15/2020; patient remains intubated, on vasopressors for septic shock Critically ill, poor prognosis, discussed with daughter Kirstin Understands the severity of illness, she wants to talk to the family If the family agrees she is considering DNR/withdrawal of care I informed patient's nurse 11/16/2020; Patient remains intubated, on Levophed Severe sepsis due to COVID-19 pneumonia critically ill, on heparin drip History Interval history: I have seen and examined the patient at the bedside in ICU this morning Isolation precautions, PPE protocol strictly observed per COVID-19 guidelines Patient remains intubated on ventilatory support Critically ill , hypotensive in shock on norepinephrine Vital signs noted Hospitalist Physical - Constitutional Vitals: Temp Pulse Resp BP Pulse Ox 97.5 F L 116 H 20 147/59 100 11/16/20 07:24 11/16/20 07:51 11/16/20 07:51 11/16/20 05:50 11/16/20 05:50 General appearance: Present: no acute distress, well-nourished, other (Intubated on vent) - EENT Eyes: Present: PERRL, EOM intact - Neck Neck: Present: supple, normal ROM - Respiratory Respiratory effort: normal Respiratory: bilateral: diminished, rhonchi, negative: rales, wheezing - Cardiovascular Rhythm: regular Heart Sounds: Present: S1 & S2 - Extremities Extremities: no ischemia, No edema - Abdominal General gastrointestinal: soft, non-tender, non-distended, normal bowel sounds - Integumentary Integumentary: Present: clear, warm - Psychiatric Psychiatric: other (Intubated on ventilatory support) - Neurologic Neurologic: other (Intubated on ventilator support) HEART Score - HEART Score Age: > 65 Risk factors: 1-2 risk factors Troponin: Troponin T < 0.010 ng/mL (0.00-0.029) 11/11/20 13:39 - Critical Actions Critical Actions: 0-3 pts:0.9-1.7%risk of adverse cardiac event.Candidate for discharge Results - Labs CBC & Chem 7: 11/15/20 04:57 11/16/20 Unknown Labs: Laboratory Last Values WBC 9.8 K/mm3 (4.5-11.0) 11/15/20 04:57 RBC 4.68 M/mm3 (3.65-5.03) 11/15/20 04:57 Hgb 13.3 gm/dl (10.1-14.3) 11/15/20 04:57 Hct 41.6 % (30.3-42.9) 11/15/20 04:57 MCV 89 fl (79-97) 11/15/20 04:57 MCH 28 pg (28-32) 11/15/20 04:57 MCHC 32 % (30-34) 11/15/20 04:57 RDW 16.2 % (13.2-15.2) H 11/15/20 04:57 Plt Count 205 K/mm3 (140-440) 11/15/20 04:57 Lymph % (Auto) 5.7 % (13.4-35.0) L 11/13/20 05:23 [place] % (Auto) 9.0 % (0.0-7.3) H 11/13/20 05:23 Eos % (Auto) 0.0 % (0.0-4.3) 11/13/20 05:23 Baso % (Auto) 0.0 % (0.0-1.8) 11/13/20 05:23 Lymph # (Auto) 0.9 K/mm3 (1.2-5.4) L 11/13/20 05:23 Blount # (Auto) 1.4 K/mm3 (0.0-0.8) H 11/13/20 05:23 Eos # (Auto) 0.0 K/mm3 (0.0-0.4) 11/13/20 05:23 Baso # (Auto) 0.0 K/mm3 (0.0-0.1) 11/13/20 05:23 Seg Neutrophils % 85.3 % (40.0-70.0) H 11/13/20 05:23 Seg Neutrophils # 13.6 K/mm3 (1.8-7.7) H 11/13/20 05:23 PT 16.0 Sec. (12.2-14.9) H 11/13/20 09:51 INR 1.23 (0.87-1.13) H 11/13/20 09:51 APTT 24.2 Sec. (24.2-36.6) 11/13/20 09:51 D-Dimer 3313.42 ng/mlDDU (0-234) H 11/15/20 04:57 Heparin Anti-Xa Level 0.52 U.I./ml (0.3-0.7) 11/15/20 16:35 ABG pH 7.261 (7.320-7.450) L 11/16/20 03:39 POC ABG pCO2 31.2 mmHg (32.0-48.0) L 11/16/20 03:39 POC ABG pO2 117.3 mmHg (83-108) H 11/16/20 03:39 POC ABG HCO3 13.7 11/16/20 03:39 ABG O2 Saturation 98.6 (0-100) 11/16/20 03:39 POC ABG Base Excess -12.0 11/16/20 03:39 ABG Hemoglobin 13.2 (12.0-17.5) 11/16/20 03:39 ABG Oxyhemoglobin 97.9 (94-98) 11/16/20 03:39 ABG Methemoglobin 0.3 (0.0-1.5) 11/16/20 03:39 ABG Sodium 135.8 mmol/L (136.0-145.0) L 11/16/20 03:39 ABG Potassium 4.0 mmol/L (3.40-4.50) 11/16/20 03:39 ABG Chloride 112.0 mmol/L (98-107) H 11/16/20 03:39 ABG Glucose 148 mg/dL (65-95) H 11/16/20 03:39 Carboxyhemoglobin 0.4 (0.5-1.5) L 11/16/20 03:39 FiO2 % 90.0 11/16/20 03:39 Sodium 139 mmol/L (137-145) D 11/16/20 Unknown Potassium 3.5 mmol/L (3.6-5.0) L 11/16/20 Unknown Chloride 109.7 mmol/L (98-107) H 11/16/20 Unknown Carbon Dioxide 15 mmol/L (22-30) L 11/16/20 Unknown Anion Gap 18 mmol/L 11/16/20 Unknown BUN 65 mg/dL (7-17) H 11/16/20 Unknown Creatinine 2.2 mg/dL (0.6-1.2) H 11/16/20 Unknown Estimated GFR 21 ml/min 11/16/20 Unknown BUN/Creatinine Ratio 30 % 11/16/20 Unknown Glucose 174 mg/dL (65-100) H 11/16/20 Unknown POC Glucose 119 mg/dL (70-105) H 11/16/20 04:51 Hemoglobin A1c 6.6 % (4-6) H 11/12/20 05:07 Lactic Acid 2.10 mmol/L (0.7-2.0) H* 11/16/20 Unknown Calcium 6.1 mg/dL (8.4-10.2) L D 11/16/20 Unknown Ferritin 452.8 ng/mL (10.0-200.0) H 11/15/20 08:26 Total Bilirubin 0.30 mg/dL (0.1-1.2) 11/16/20 Unknown AST 171 units/L (5-40) H 11/16/20 Unknown ALT 268 units/L (7-56) H 11/16/20 Unknown Alkaline Phosphatase 63 units/L (35-129) 11/16/20 Unknown Lactate Dehydrogenase 596 units/L (91-180) H 11/15/20 04:57 Troponin T < 0.010 ng/mL (0.00-0.029) 11/11/20 13:39 C-Reactive Protein 34.50 mg/dL (0.00-1.30) H 11/15/20 04:57 Total Protein 4.3 g/dL (6.3-8.2) L 11/16/20 Unknown Albumin 1.9 g/dL (3.9-5) L 11/16/20 Unknown Albumin/Globulin Ratio 0.8 % 11/16/20 Unknown Lipase 55 units/L (13-60) 11/11/20 13:39 Procalcitonin < 0.05 ng/mL (<0.15) 11/11/20 16:59 Arterial Blood Glucose 148 mg/dL (65-95) H 11/16/20 03:39 Arterial Blood Ionized Calcium 4.1 mg/dL (4.6-5.3) L 11/16/20 03:39 Urine Color Red (Yellow) 11/14/20 06:15 Urine Turbidity Turbid (Clear) 11/14/20 06:15 Urine pH TNR 11/14/20 06:15 Ur Specific [place] 1.029 (1.003-1.030) 11/11/20 Unknown Urine Protein TNR 11/14/20 06:15 Urine Glucose (UA) Color interference mg/dL (Negative) 11/14/20 06:15 Urine Ketones Color interference mg/dL (Negative) 11/14/20 06:15 Urine Blood Sm (Negative) 11/11/20 Unknown Urine Nitrite TNR 11/14/20 06:15 Ur Reducing Substances TNR 11/14/20 06:15 Urine Bilirubin Color interference (Negative) 11/14/20 06:15 Urine Ictotest TNR 11/14/20 06:15 Urine Urobilinogen TNR 11/14/20 06:15 Ur Leukocyte Esterase TNR 11/14/20 06:15 Urine WBC (Auto) > 182.0 /HPF (0.0-6.0) H 11/14/20 06:15 Urine RBC (Auto) > 182.0 /HPF (0.0-6.0) 11/14/20 06:15 U Epithel Cells (Auto) 24.0 /HPF (0-13.0) H 11/14/20 06:15 Urine WBC Clumps 3+ /HPF 11/14/20 06:15 Urine Creatinine 80.2 mg/dL (0.1-20.0) H 11/14/20 06:15 Urine Sodium 28 mmol/L 11/14/20 06:15 Coronavirus (PCR) Positive (Negative) A 11/11/20 Unknown Blood Type A POSITIVE 11/11/20 15:00 Antibody Screen Negative 11/11/20 15:00 Microbiology: Microbiology 11/14/20 Unknown Peripheral/Venous Blood Culture - Preliminary NO GROWTH AFTER 24 HOURS 11/14/20 Unknown Peripheral/Venous Blood Culture - Preliminary NO GROWTH AFTER 24 HOURS 11/11/20 15:21 Peripheral/Venous Blood Culture - Preliminary NO GROWTH AFTER 4 DAYS 11/11/20 15:10 Peripheral/Venous Blood Culture - Preliminary NO GROWTH AFTER 4 DAYS Lind/IV: Voiding Method Indwelling Catheter Active Medications - Current Medications Current Medications: Generic Name Dose Route Start Last Admin Trade Name Freq PRN Reason Stop Dose Admin Acetaminophen 650 mg 11/11/20 22:11 Acetaminophen 325 Mg Tab PO Q4H PRN Pain MILD(1-3)/Fever >100.5/ERAZO Albuterol 2.5 mg 11/13/20 07:40 Albuterol 2.5 Mg/3 Ml Nebu IH Q4HRT PRN Shortness Of Breath Albuterol/Ipratropium 1 ampul 11/13/20 08:00 11/16/20 07:50 Ipratropium/Albuterol Sulfate 3 Ml Ampul.Neb IH 1 ampul QIDRT CARLOS Administration Lipase/Protease/Amylase 1 each 11/13/20 17:32 Lipase 10,500/Protease 25,000/Amylase 43,750 (Units) Dr Weiss FEEDTUBE PRN PRN For Clogged Feeding Tube Ascorbic Acid 500 mg 11/13/20 22:00 11/15/20 21:02 Ascorbic Acid 500 Mg Tab PO Not Given BID CARLOS Baclofen 10 mg 11/11/20 22:09 Baclofen 10 Mg Tab PO TID PRN MUSCLE SPASMS & PAIN Dexamethasone 6 mg 11/13/20 10:00 11/15/20 10:25 Dexamethasone 4 Mg/Ml Vial IV 11/22/20 10:01 6 mg Q24HR CARLOS Administration Dextrose 50 ml 11/13/20 16:43 11/14/20 01:12 Dextrose 50% In Water (25gm) 50 Ml Syringe IV 50 ml Q30MIN PRN Administration Hypoglycemia Protocol Fentanyl 50 mcg 11/13/20 05:33 Fentanyl 100 Mcg/2 Ml Inj IV Q10MIN PRN ANALGESIA Heparin Sodium (Porcine) 3,000 unit 11/13/20 05:04 Heparin 10,000 Units/10 Ml Vial 40 unit/kg (3000 unit) IV Q6H PRN Anti-Xa Assay < 0.1 units/ml Hydromorphone HCl 0.5 mg 11/11/20 22:11 Hydromorphone 1 Mg/1 Ml Inj IV Q3H PRN Pain , Severe (7-10) Hydrophilic Ointment 1 applic 11/13/20 05:33 Lip Therapy Vaseline TP Q2HR PRN Dry Lips Heparin Sodium/Sodium Chloride 25,000 unit in 500 mls @ 23 mls/hr 11/13/20 06:00 11/15/20 19:18 Heparin/ 0.45% Nacl-25,000 Unit/500 Ml IV 750 units/hr TITR CARLOS 15 mls/hr Administration Protocol 1,150 UNITS/HR Fentanyl Citrate 2,000 mcg in 100 mls @ 3.81 mls/hr 11/13/20 06:00 11/15/20 23:33 Fentanyl Drip Premix IV 1 mcg/kg/hr TITR CARLOS 3.81 mls/hr Administration Protocol 1 MCG/KG/HR NORepinephrine/NS 8 MG-250 ML 8 mg in 250 mls @ 3.75 mls/hr 11/13/20 15:00 11/15/20 23:34 Norepinephrine/Ns 8 Mg-250 Ml (Double Conc) IV 12 mcg/min TITRATE CARLOS 22.5 mls/hr Administration Protocol 2 MCG/MIN Sodium Bicarbonate 150 meq/ 1,150 mls @ 125 mls/hr 11/16/20 06:00 11/16/20 07:12 Dextrose IV 125 mls/hr DIRECT CARLOS Administration Insulin Human Regular 0 units 11/13/20 17:00 11/16/20 05:28 Insulin Regular, Human 100 Units/1 Ml SUB-Q Not Given Q6H [facility] Protocol Metoclopramide HCl 5 mg 11/15/20 19:00 11/16/20 07:12 Metoclopramide 10 Mg/2 Ml Inj IV 5 mg Q6H CARLOS Administration Multi-Ingred Cream/Lotion/Oil/Oint 1 applic 11/13/20 05:33 Mineral Oil/Petrolatum, White Ophth Oint 3.5 Gm OU Q4HR PRN Dry Eye(s) Ondansetron HCl 4 mg 11/11/20 22:11 Ondansetron 4 Mg/2 Ml Inj IV Q3H PRN Nausea And Vomiting Oxycodone/Acetaminophen 1 tab 11/11/20 22:11 Oxycodone /Acetaminophen 5-325mg Tab PO Q6H PRN Pain, Moderate (4-6) Pantoprazole Sodium 40 mg 11/13/20 14:00 11/15/20 20:59 Pantoprazole 40 Mg Inj IV 40 mg BID CARLOS Administration Paroxetine HCl 10 mg 11/12/20 10:00 11/15/20 10:26 Paroxetine 10 Mg Tab PO Not Given DAILY CARLOS Ropinirole HCl 1 mg 11/12/20 22:00 11/15/20 21:02 Ropinirole 1 Mg Tab PO Not Given QHS CARLOS Senna/Docusate Sodium 1 tab 11/14/20 22:00 11/15/20 21:02 Sennosides/Docusate Sodium 8.6/50 Mg Tab FEEDTUBE Not Given BID CARLOS Simple Syrup 15 ml 11/13/20 17:32 Simple Syrup 15 Ml FEEDTUBE PRN PRN Hypoglycemia Simple Syrup 30 ml 11/13/20 17:32 Simple Syrup 15 Ml FEEDTUBE PRN PRN Hypoglycemia Sodium Bicarbonate 325 mg 11/13/20 17:32 Sodium Bicarbonate 325 Mg Tab FEEDTUBE PRN PRN For Clogged Feeding Tube Sodium Chloride 10 ml 11/12/20 10:00 11/15/20 20:59 Sodium Chloride 0.9% 10 Ml Flush Syringe IV 10 ml BID CARLOS Administration Sodium Chloride 10 ml 11/11/20 22:11 Sodium Chloride 0.9% 10 Ml Flush Syringe IV PRN PRN LINE FLUSH Zinc Sulfate 220 mg 11/13/20 22:00 11/15/20 21:03 Zinc Sulfate 220 Mg Cap PO Not Given BID CARLOS Nutrition/Malnutrition Assess - Dietary Evaluation Nutrition/Malnutrition Findings: Nutrition Notes Start: 11/13/20 17:25 Freq: Status: Active Protocol: Document 11/15/20 10:57 (Rec: 11/15/20 11:02 [id number]) Nutrition Notes Initial or Follow up Brief Note Current Diagnosis Sepsis,Respiratory Failure Other Pertinent Diagnosis COVID-19 (+), Dehydration, (L) renal stone Current Diet None ordered Subjective/Other Information TF off and NG to LIS at this time with >1500ml output. Per RN, pt had N/V before starting TF. Once started, pt tolerated for "awhile" until she vomited last night and NG was turned to LIS. Nutrition Intervention Follow-Up By: 11/18/20 Additional Comments F/u: TF restart and tolerance
[2020-11-16] MEDS: POTASSIUM CHLORIDE 10 MEQ 10 MEQ/100 ML BAG IV SCH ×2 (09:44→12:38)
[2020-11-16] MEDS: PANTOPRAZOLE 40 MG INJ IV SCH ×2 (09:45→21:41)
[2020-11-16] MEDS: dexAMETHasone 4 MG/ML VIAL IV SCH (09:45)
[2020-11-16] MEDS: ASCORBIC ACID 500 MG TAB PO SCH ×2 (09:45→21:42)
[2020-11-16] MEDS: SENNOSIDES/DOCUSATE SODIUM 8.6/50 MG TAB FEEDTUBE SCH ×2 (09:45→21:42)
[2020-11-16] MEDS: ZINC SULFATE 220 MG CAP PO SCH ×2 (09:45→21:42)
[2020-11-16] MEDS ORDERED: CALCIUM GLUCONATE 1,000 MG in SODIUM CHLORIDE 0.9% 100 ML IV ONE (10:00)
[2020-11-16] MEDS: PARoxetine 10 MG TAB PO SCH (10:10)
--- NOTE | 2020-11-16 12:05 | Progress Note ---
Assessment and Plan 1. Acute kidney injury: KATLYN in the setting of severe Covid infection. Patient is also hypotensive. Received IV contrast 11/13. CT abdomen showed non-obstructive 7 mm distal left ureteral stone. Low FeNa. Monitor renal function. Creatinine level fluctuates. Renal prognosis is guarded. Avoid nephrotoxic agents. Meds dosage based on GFR. 2. FEN: Hypernatremia, improved, monitor. Hyperchloremic metabolic acidosis, Sod bicarb drip, monitor. Hypokalemia, replete K as needed, monitor. Monitor lytes and volume status. 3. Acute respiratory failure with hypoxemia: 2/2 Covid PNA. Currently on vent, wean as tolerated. 4. Shock: Off pressors. Monitor. 5. Covid PNA: Followed by ID. 6. L ureteral stone: S/p b/l stent. Seen by Urologist. 7. Elevated ALT & AST: Trend. 8. DM type 2: Monitor. Subjective: Patient was seen and examined at the bedside. Examination: General appearance: well-developed, appears stated age, intubated on vent HEENT: atraumatic, no icterus Neck: trachea midline Respiratory: MV sounds Heart: S1S2, regular, no murmur Abdomen: soft, bowel sounds heard, NT Integumentary: no obvious rash Neurologic: not responding Ext: no edema : Lind catheter Subjective Date of service: 11/16/20 Principal diagnosis: Ac hypoxemic resp failure; COVID-19 infxn; Pneumonia; KATLYN; AMS; Sepsis Objective - Vital Signs Vital signs: Vital Signs - 12hr 11/16/20 11/16/20 11/16/20 00:10 00:20 00:30 Temperature Pulse Rate 86 83 84 Pulse Rate [ Anterior Bilateral Throughout] Pulse Rate [ From Monitor] Respiratory 20 18 19 Rate Respiratory Rate [Anterior Bilateral Throughout] Blood Pressure 140/61 140/59 143/60 O2 Sat by Pulse 97 97 96 Oximetry 11/16/20 11/16/20 11/16/20 00:40 00:50 00:52 Temperature Pulse Rate 82 83 82 Pulse Rate [ Anterior Bilateral Throughout] Pulse Rate [ From Monitor] Respiratory 20 20 Rate Respiratory Rate [Anterior Bilateral Throughout] Blood Pressure 142/62 135/64 135/64 O2 Sat by Pulse 97 96 97 Oximetry 11/16/20 11/16/20 11/16/20 01:00 01:10 01:20 Temperature Pulse Rate 83 83 81 Pulse Rate [ Anterior Bilateral Throughout] Pulse Rate [ From Monitor] Respiratory 18 21 19 Rate Respiratory Rate [Anterior Bilateral Throughout] Blood Pressure 135/60 141/67 143/63 O2 Sat by Pulse 97 97 98 Oximetry 11/16/20 11/16/20 11/16/20 01:30 01:40 01:50 Temperature Pulse Rate 82 81 80 Pulse Rate [ Anterior Bilateral Throughout] Pulse Rate [ From Monitor] Respiratory 17 20 19 Rate Respiratory Rate [Anterior Bilateral Throughout] Blood Pressure 134/64 141/65 143/64 O2 Sat by Pulse 97 96 97 Oximetry 11/16/20 11/16/20 11/16/20 02:00 02:10 02:20 Temperature Pulse Rate 81 81 80 Pulse Rate [ Anterior Bilateral Throughout] Pulse Rate [ From Monitor] Respiratory 18 19 20 Rate Respiratory Rate [Anterior Bilateral Throughout] Blood Pressure 149/74 147/57 125/58 O2 Sat by Pulse 97 95 96 Oximetry 11/16/20 11/16/20 11/16/20 02:30 02:40 02:50 Temperature 98.1 F Pulse Rate 79 82 81 Pulse Rate [ Anterior Bilateral Throughout] Pulse Rate [ From Monitor] Respiratory 19 18 20 Rate Respiratory Rate [Anterior Bilateral Throughout] Blood Pressure 144/64 160/71 144/64 O2 Sat by Pulse 98 99 99 Oximetry 11/16/20 11/16/20 11/16/20 03:00 03:10 03:20 Temperature Pulse Rate 80 80 79 Pulse Rate [ Anterior Bilateral Throughout] Pulse Rate [ From Monitor] Respiratory 20 21 20 Rate Respiratory Rate [Anterior Bilateral Throughout] Blood Pressure 137/62 136/62 137/61 O2 Sat by Pulse 99 99 98 Oximetry 11/16/20 11/16/20 11/16/20 03:30 03:40 03:50 Temperature Pulse Rate 79 78 80 Pulse Rate [ Anterior Bilateral Throughout] Pulse Rate [ From Monitor] Respiratory 18 20 18 Rate Respiratory Rate [Anterior Bilateral Throughout] Blood Pressure 129/68 138/62 141/62 O2 Sat by Pulse 100 100 100 Oximetry 11/16/20 11/16/20 11/16/20 04:00 04:01 04:10 Temperature Pulse Rate 82 83 81 Pulse Rate [ Anterior Bilateral Throughout] Pulse Rate [ 83 From Monitor] Respiratory 10 L 10 L 20 Rate Respiratory Rate [Anterior Bilateral Throughout] Blood Pressure 138/80 137/68 O2 Sat by Pulse 100 100 99 Oximetry 11/16/20 11/16/20 11/16/20 04:20 04:30 04:37 Temperature Pulse Rate 80 78 80 Pulse Rate [ Anterior Bilateral Throughout] Pulse Rate [ From Monitor] Respiratory 20 17 Rate Respiratory Rate [Anterior Bilateral Throughout] Blood Pressure 142/62 140/83 140/69 O2 Sat by Pulse 98 97 100 Oximetry 11/16/20 11/16/20 11/16/20 04:40 04:50 05:00 Temperature Pulse Rate 83 78 80 Pulse Rate [ Anterior Bilateral Throughout] Pulse Rate [ From Monitor] Respiratory 20 18 20 Rate Respiratory Rate [Anterior Bilateral Throughout] Blood Pressure 144/66 142/63 137/70 O2 Sat by Pulse 98 99 99 Oximetry 11/16/20 11/16/20 11/16/20 05:10 05:20 05:30 Temperature Pulse Rate 82 79 79 Pulse Rate [ Anterior Bilateral Throughout] Pulse Rate [ From Monitor] Respiratory 20 18 20 Rate Respiratory Rate [Anterior Bilateral Throughout] Blood Pressure 145/71 142/66 142/64 O2 Sat by Pulse 98 99 99 Oximetry 11/16/20 11/16/20 11/16/20 05:41 05:50 06:00 Temperature Pulse Rate 81 79 78 Pulse Rate [ Anterior Bilateral Throughout] Pulse Rate [ From Monitor] Respiratory 20 20 20 Rate Respiratory Rate [Anterior Bilateral Throughout] Blood Pressure 145/70 147/59 146/56 O2 Sat by Pulse 100 100 99 Oximetry 11/16/20 11/16/20 11/16/20 06:10 06:20 06:30 Temperature Pulse Rate 79 79 78 Pulse Rate [ Anterior Bilateral Throughout] Pulse Rate [ From Monitor] Respiratory 20 20 20 Rate Respiratory Rate [Anterior Bilateral Throughout] Blood Pressure 144/64 148/66 144/70 O2 Sat by Pulse 100 99 99 Oximetry 11/16/20 11/16/20 11/16/20 06:40 06:50 07:00 Temperature Pulse Rate 77 78 76 Pulse Rate [ Anterior Bilateral Throughout] Pulse Rate [ From Monitor] Respiratory 20 19 20 Rate Respiratory Rate [Anterior Bilateral Throughout] Blood Pressure 142/60 145/77 145/72 O2 Sat by Pulse 99 99 98 Oximetry 11/16/20 11/16/20 11/16/20 07:10 07:20 07:24 Temperature 97.5 F L Pulse Rate 77 76 Pulse Rate [ Anterior Bilateral Throughout] Pulse Rate [ From Monitor] Respiratory 18 20 Rate Respiratory Rate [Anterior Bilateral Throughout] Blood Pressure 148/63 151/67 O2 Sat by Pulse 98 99 Oximetry 11/16/20 11/16/20 11/16/20 07:30 07:40 07:50 Temperature Pulse Rate 75 75 80 Pulse Rate [ Anterior Bilateral Throughout] Pulse Rate [ From Monitor] Respiratory 20 20 20 Rate Respiratory Rate [Anterior Bilateral Throughout] Blood Pressure 145/60 126/62 142/65 O2 Sat by Pulse 99 98 98 Oximetry 11/16/20 11/16/20 11/16/20 07:51 08:00 08:10 Temperature Pulse Rate 74 75 Pulse Rate [ 116 H Anterior Bilateral Throughout] Pulse Rate [ 83 From Monitor] Respiratory 21 20 Rate Respiratory 20 Rate [Anterior Bilateral Throughout] Blood Pressure 144/66 147/57 O2 Sat by Pulse 99 98 Oximetry 11/16/20 11/16/20 11/16/20 08:20 08:30 08:40 Temperature Pulse Rate 73 75 74 Pulse Rate [ Anterior Bilateral Throughout] Pulse Rate [ From Monitor] Respiratory 20 20 18 Rate Respiratory Rate [Anterior Bilateral Throughout] Blood Pressure 150/64 154/69 148/62 O2 Sat by Pulse 97 99 97 Oximetry 11/16/20 11/16/20 11/16/20 08:50 09:00 09:10 Temperature Pulse Rate 78 75 74 Pulse Rate [ Anterior Bilateral Throughout] Pulse Rate [ From Monitor] Respiratory 16 20 20 Rate Respiratory Rate [Anterior Bilateral Throughout] Blood Pressure 144/80 153/66 152/60 O2 Sat by Pulse 98 99 100 Oximetry 11/16/20 11/16/20 11/16/20 09:20 09:30 09:40 Temperature Pulse Rate 74 72 73 Pulse Rate [ Anterior Bilateral Throughout] Pulse Rate [ From Monitor] Respiratory 20 20 20 Rate Respiratory Rate [Anterior Bilateral Throughout] Blood Pressure 157/67 149/64 151/66 O2 Sat by Pulse 100 98 98 Oximetry 11/16/20 11/16/20 11/16/20 09:50 10:01 10:10 Temperature Pulse Rate 72 69 69 Pulse Rate [ Anterior Bilateral Throughout] Pulse Rate [ From Monitor] Respiratory 20 20 20 Rate Respiratory Rate [Anterior Bilateral Throughout] Blood Pressure 135/63 160/58 159/75 O2 Sat by Pulse 99 98 98 Oximetry 11/16/20 11/16/20 11/16/20 10:20 10:30 10:41 Temperature Pulse Rate 70 69 75 Pulse Rate [ Anterior Bilateral Throughout] Pulse Rate [ From Monitor] Respiratory 20 20 20 Rate Respiratory Rate [Anterior Bilateral Throughout] Blood Pressure 170/77 155/69 126/64 O2 Sat by Pulse 100 95 100 Oximetry 11/16/20 11/16/20 11/16/20 10:50 11:00 11:07 Temperature Pulse Rate 78 77 Pulse Rate [ 78 Anterior Bilateral Throughout] Pulse Rate [ From Monitor] Respiratory 20 20 Rate Respiratory 24 Rate [Anterior Bilateral Throughout] Blood Pressure 124/63 104/58 O2 Sat by Pulse 99 95 Oximetry 11/16/20 11/16/20 11/16/20 11:10 11:20 11:31 Temperature Pulse Rate 78 80 69 Pulse Rate [ Anterior Bilateral Throughout] Pulse Rate [ From Monitor] Respiratory 20 20 20 Rate Respiratory Rate [Anterior Bilateral Throughout] Blood Pressure 102/59 95/58 152/71 O2 Sat by Pulse 96 99 100 Oximetry 11/16/20 11:47 Temperature 94.6 F L Pulse Rate Pulse Rate [ Anterior Bilateral Throughout] Pulse Rate [ From Monitor] Respiratory Rate Respiratory Rate [Anterior Bilateral Throughout] Blood Pressure O2 Sat by Pulse Oximetry - Lab 11/15/20 04:57 11/16/20 Unknown Most recent lab results ABG pH 7.261 (7.320-7.450) L 11/16/20 03:39 ABG O2 Saturation 98.6 (0-100) 11/16/20 03:39 Calcium 6.1 mg/dL (8.4-10.2) L D 11/16/20 Unknown Urine Creatinine 80.2 mg/dL (0.1-20.0) H 11/14/20 06:15 Urine Sodium 28 mmol/L 11/14/20 06:15 Medications & Allergies - Medications Allergies/Adverse Reactions: Allergies morphine Adverse Reaction (Verified 05/26/13 19:22) Nausea Home Medications: Home Medications Medication Instructions Recorded Confirmed Last Taken Type Acetaminophen [Tylenol] 325 mg PO DAILY #10 tablet 05/26/13 10/17/14 10/16/14 Rx Baclofen [Lioresal] 10 mg PO TID PRN 05/26/13 10/17/14 10/16/14 History Diazepam [Valium] 10 mg PO BID 05/26/13 10/17/14 10/16/14 History PARoxetine [Paxil] 10 mg PO DAILY 05/26/13 10/17/14 10/16/14 19:00 History Quetiapine Fumarate [SEROquel XR] 200 mg PO DAILY 05/26/13 10/17/14 10/16/14 History rOPINIRole [Requip] 1 mg PO QHS 05/26/13 10/17/14 10/16/14 19:00 History QUEtiapine [SEROquel] 200 mg PO QHS 05/28/13 10/17/14 10/16/14 19:00 History Famotidine [Pepcid] 10 mg PO BID #60 tablet 06/02/13 10/17/14 10/16/14 Rx levoFLOXacin [Levaquin] 750 mg PO QDAY #7 tablet 06/02/13 10/17/14 10/16/14 Rx metroNIDAZOLE [Flagyl] 500 mg PO Q8HR #30 tablet 06/02/13 10/17/14 10/16/14 Rx Hydromorphone HCl [Dilaudid] 4 mg PO 10/17/14 10/17/14 10/16/14 History Oxycodone HCl/Acetaminophen 1 each PO Q6HR PRN 10/17/14 10/17/14 10/16/14 History [Percocet 10-325 mg] Oxycodone HCl/Acetaminophen 1 each PO Q6HR PRN #30 tablet 10/18/14 Unknown Rx [Percocet 10-325 mg] Active Medications: Generic Name Dose Route Start Last Admin Trade Name Freq PRN Reason Stop Dose Admin Acetaminophen 650 mg 11/11/20 22:11 Acetaminophen 325 Mg Tab PO Q4H PRN Pain MILD(1-3)/Fever >100.5/ERAZO Albuterol 2.5 mg 11/13/20 07:40 Albuterol 2.5 Mg/3 Ml Nebu IH Q4HRT PRN Shortness Of Breath Albuterol/Ipratropium 1 ampul 11/13/20 08:00 11/16/20 11:06 Ipratropium/Albuterol Sulfate 3 Ml Ampul.Neb IH 1 ampul QIDRT CARLOS Administration Lipase/Protease/Amylase 1 each 11/13/20 17:32 Lipase 10,500/Protease 25,000/Amylase 43,750 (Units) Dr Cap FEEDTUBE PRN PRN For Clogged Feeding Tube Ascorbic Acid 500 mg 11/13/20 22:00 11/16/20 09:45 Ascorbic Acid 500 Mg Tab PO Not Given BID CARLOS Baclofen 10 mg 11/11/20 22:09 Baclofen 10 Mg Tab PO TID PRN MUSCLE SPASMS & PAIN Dexamethasone 6 mg 11/13/20 10:00 11/16/20 09:45 Dexamethasone 4 Mg/Ml Vial IV 11/22/20 10:01 6 mg Q24HR CARLOS Administration Dextrose 50 ml 11/13/20 16:43 11/14/20 01:12 Dextrose 50% In Water (25gm) 50 Ml Syringe IV 50 ml Q30MIN PRN Administration Hypoglycemia Protocol Fentanyl 50 mcg 11/13/20 05:33 Fentanyl 100 Mcg/2 Ml Inj IV Q10MIN PRN ANALGESIA Heparin Sodium (Porcine) 3,000 unit 11/13/20 05:04 Heparin 10,000 Units/10 Ml Vial 40 unit/kg (3000 unit) IV Q6H PRN Anti-Xa Assay < 0.1 units/ml Hydromorphone HCl 0.5 mg 11/11/20 22:11 Hydromorphone 1 Mg/1 Ml Inj IV Q3H PRN Pain , Severe (7-10) Hydrophilic Ointment 1 applic 11/13/20 05:33 Lip Therapy Vaseline TP Q2HR PRN Dry Lips Heparin Sodium/Sodium Chloride 25,000 unit in 500 mls @ 23 mls/hr 11/13/20 06:00 11/15/20 19:18 Heparin/ 0.45% Nacl-25,000 Unit/500 Ml IV 750 units/hr TITR CARLOS 15 mls/hr Administration Protocol 1,150 UNITS/HR Fentanyl Citrate 2,000 mcg in 100 mls @ 3.81 mls/hr 11/13/20 06:00 11/15/20 23:33 Fentanyl Drip Premix IV 1 mcg/kg/hr TITR CARLOS 3.81 mls/hr Administration Protocol 1 MCG/KG/HR NORepinephrine/NS 8 MG-250 ML 8 mg in 250 mls @ 3.75 mls/hr 11/13/20 15:00 11/15/20 23:34 Norepinephrine/Ns 8 Mg-250 Ml (Double Conc) IV 12 mcg/min TITRATE CARLOS 22.5 mls/hr Administration Protocol 2 MCG/MIN Sodium Bicarbonate 150 meq/ 1,150 mls @ 125 mls/hr 11/16/20 06:00 11/16/20 07:12 Dextrose IV 125 mls/hr DIRECT CARLOS Administration Insulin Human Regular 0 units 11/13/20 17:00 11/16/20 11:43 Insulin Regular, Human 100 Units/1 Ml SUB-Q Not Given Q6H [facility] Protocol Metoclopramide HCl 5 mg 11/15/20 19:00 11/16/20 07:12 Metoclopramide 10 Mg/2 Ml Inj IV 5 mg Q6H CARLOS Administration Multi-Ingred Cream/Lotion/Oil/Oint 1 applic 11/13/20 05:33 Mineral Oil/Petrolatum, White Ophth Oint 3.5 Gm OU Q4HR PRN Dry Eye(s) Ondansetron HCl 4 mg 11/11/20 22:11 Ondansetron 4 Mg/2 Ml Inj IV Q3H PRN Nausea And Vomiting Oxycodone/Acetaminophen 1 tab 11/11/20 22:11 Oxycodone /Acetaminophen 5-325mg Tab PO Q6H PRN Pain, Moderate (4-6) Pantoprazole Sodium 40 mg 11/13/20 14:00 11/16/20 09:45 Pantoprazole 40 Mg Inj IV 40 mg BID CARLOS Administration Paroxetine HCl 10 mg 11/12/20 10:00 11/16/20 10:10 Paroxetine 10 Mg Tab PO Not Given DAILY CARLOS Ropinirole HCl 1 mg 11/12/20 22:00 11/15/20 21:02 Ropinirole 1 Mg Tab PO Not Given QHS CARLOS Senna/Docusate Sodium 1 tab 11/14/20 22:00 11/16/20 09:45 Sennosides/Docusate Sodium 8.6/50 Mg Tab FEEDTUBE Not Given BID CARLOS Simple Syrup 15 ml 11/13/20 17:32 Simple Syrup 15 Ml FEEDTUBE PRN PRN Hypoglycemia Simple Syrup 30 ml 11/13/20 17:32 Simple Syrup 15 Ml FEEDTUBE PRN PRN Hypoglycemia Sodium Bicarbonate 325 mg 11/13/20 17:32 Sodium Bicarbonate 325 Mg Tab FEEDTUBE PRN PRN For Clogged Feeding Tube Sodium Chloride 10 ml 11/12/20 10:00 11/16/20 09:45 Sodium Chloride 0.9% 10 Ml Flush Syringe IV 10 ml BID CARLOS Administration Sodium Chloride 10 ml 11/11/20 22:11 Sodium Chloride 0.9% 10 Ml Flush Syringe IV PRN PRN LINE FLUSH Zinc Sulfate 220 mg 11/13/20 22:00 11/16/20 09:45 Zinc Sulfate 220 Mg Cap PO Not Given BID CARLOS
[2020-11-16] MEDS: NORepinephrine/NS 8 MG-250 ML 8 MG/250 ML INFUS..BTL IV SCH (12:38)
[2020-11-16] MEDS: rOPINIRole 1 MG TAB PO SCH (21:42)
[2020-11-17] MEDS: IPRATROPIUM/ALBUTEROL SULFATE 3 ML AMPUL.NEB IH SCH ×5 (00:21→20:25)
[2020-11-17] MEDS: METOCLOPRAMIDE 10 MG/2 ML INJ IV SCH ×4 (01:32→18:21)
[2020-11-17] MEDS: SODIUM BICARBONATE 150 MEQ in DEXTROSE 5% IN WATER 1,000 ML IV SCH ×3 (02:19→22:59)
[2020-11-17] MEDS: fentaNYL DRIP Premix 2,000 MCG/100 ML BAG IV SCH (02:20)
[2020-11-17] MEDS: HEPARIN/ 0.45% NACL DRIP 25,000 UNIT/500 ML BAG IV SCH (05:03)
[2020-11-17] MEDS: INSULIN REGULAR, HUMAN 100 UNITS/1 ML SUB-Q SCH ×4 (05:10→23:30)
[2020-11-17 06:12] LABS: Hematocrit 32.4 % (30.3-42.9); Hemoglobin 10.7 gm/dl (10.1-14.3)
--- NOTE | 2020-11-17 08:43 | Progress Note ---
Assessment and Plan Assessment and plan: --Acute respiratory failure with hypoxia/intubated[11/13/2020] Current Visit: Yes Status: Acute Secondary to acute severe COVID-19 pneumonia Continue ventilatory support, treat the underlying cause Pulmonary and ID following Wean as tolerated and extubate --Positive COVID-19 infection Current Visit: Yes Status: Acute Continue current management per COVID-19 guidelines Dexamethasone 6 mg IV/PO daily for 10 days Not a remdesivir candidate due to renal failure Follow inflammatory markers - ferritin, Ddimer, CRP, LDH Received Actemra, Prone position if possible ID following --Severe sepsis Current Visit: Yes Status: Acute Due to COVID-19 pneumonia, as well as UTI patient has fever tachycardia, tachypnea and leukocytosis Urine analysis consistent with UTI Antibiotics discontinued per ID as procalcitonin is normal --Septic shock; requiring vasopressors Current Visit: Yes Status: Acute Continue nor epi, IV fluids and supportive care Wean as tolerated --Elevated D-dimers/COVID-19 pneumonia Current Visit: Yes Status: Acute Patient is already on heparin drip due [to carotid arterial line] Continue supportive care --Transaminitis; COVID-19 related Current Visit: Yes Status: Acute Worsening LFTs, closely monitor GI consult if needed, treat the underlying cause --inadvertent placement of carotid arterial line; Current Visit: Yes Status: Acute Vascular /IR evaluated the patient Initiated heparin drip to prevent thrombosis Strictly advised not to use the arterial line --Dehydration Current Visit: Yes Status: Acute Continue IV fluids , supportive care --Intractable nausea and vomiting Current Visit: Yes Status: Acute Continue antiemetics supportive care --Lumbar compression fracture Current Visit: Yes Status: Chronic Lumbar compression fractures L3-L4-L5 on the CT scan of the abdomen and pelvis Pain management as necessary, supportive care --T2DM (type 2 diabetes mellitus) Current Visit: Yes Status: Chronic Accu-Chek sliding scale coverage ADA diet hemoglobin A1c 6.6 --Hydronephrosis of left kidney/bilateral ureteric stone Current Visit: Yes Status: Acute urology evaluated bilateral ureteric stone; s/p cystoscopy bilateral stent placement, internal string[11/13/2020] --Severe protein calorie malnutrition; Current Visit: Yes Status: Chronic Nutrition supplements, Dobb[place] feeding --DVT prophylaxis Current Visit: Yes Status: Acute Plan to address problem: On heparin and GI prophylaxis --full CODE STATUS Family have been able to make decision about the goals of care CODE STATUS, recommend palliative care/hospice Will discuss again with POA the daughter May need family meeting early next week if decisions are not made Critical care time 35 minutes The high probability of a clinically significant, sudden or life threatening deterioration of the [ respiratory, infectious, neurologic, renal, musculoskeletal and GI] system(s) required my full and direct attention, intervention and personal management. The aggregate critical care time was [35] minutes. This time is in addition to time spent performing reported procedures but includes the following: [x] Data Review and interpretation [x] Patient assessment and monitoring of vital signs [x] Documentation [x] Medication orders and management Brief history and daily hospital course 85-year-old female with obesity, chronic low back pain, muscle spasms and depression presents with nausea vomiting and decreased p.o. intake for 1 week. Patient also complains of mild diarrhea. No abdominal pain. No fever or dysuria. She is bedridden and nonambulatory. Patient is oriented to self and knows that she is in the hospital. Patient says the year is 2080. Oxygen saturation is 99 to 90% on room air also complains of cough and shortness of breath. Denies any home oxygen. As per daughter patient has pain having nausea and vomiting for past 3 days. EMS was called 1 day to assess and they gave IV fluids but did not transport the patient. Today because of the persistent vomiting and apparent small amount of blood in vomit patient was transferred to [facility] for further evaluation and treatment. As mentioned patient is slightly hypoxic at 88 to 90% on room air. Continues to vomit. 85-yearqold female with a past medical history of chronic lower back pain, chronic UTI, and depression with previous cholecystectomy, bladder surgery, kidney surgery presents to the hospital complaints of nausea and vomiting with decreased p.o. intake x1 week. Patient also complains of mild diarrhea. She denies abdominal pain, fever, dysuria. She is chronically nonambulatory. She is currently oriented to self and knows that she is currently [place] but states the year is 2080. Patient noted to have room air saturation of 89 to 90%. Complains of cough without shortness of breath. Denies home oxygen use. Daughter's phone number [phone] 11/12/2020 Patient doing well Discussed with daughter at length about her prognosis and treatment No nausea vomiting since morning Coronavirus PCR came positive 11/13/2020 Patient coded last night and was intubated ROSC Patient on vent Model And Pattern Supervisor consult and ID consult 11/14/2020 Patient intubated Weaning in progress 11/15/2020; patient remains intubated, on vasopressors for septic shock Critically ill, poor prognosis, discussed with daughter Kirstin Understands the severity of illness, she wants to talk to the family If the family agrees she is considering DNR/withdrawal of care I informed patient's nurse 11/16/2020; Patient remains intubated, on Levophed Severe sepsis due to COVID-19 pneumonia critically ill, on heparin drip 11/17/2020; Patient remains critically ill Septic shock on norepinephrine Intubated on vent Very poor prognosis Family unable to decide the goals of treatment CODE STATUS Recommend palliative care/hospice History Interval history: COVID-19 patient in isolation I have seen and examined the patient at bedside Strict isolation precautions PPE protocols followed per COVID-19 guidelines Patient is intubated on ventilatory support Hypotensive on pressors Very poor prognosis Vital signs noted Hospitalist Physical - Constitutional Vitals: Temp Pulse Resp BP Pulse Ox 97.5 F L 79 20 119/60 98 11/17/20 07:36 11/17/20 08:30 11/17/20 08:30 11/17/20 08:30 11/17/20 08:30 General appearance: Present: mild distress, well-nourished, obese, other (In tubated on vent) - EENT Eyes: Present: PERRL, EOM intact - Neck Neck: Present: supple, normal ROM - Respiratory Respiratory effort: normal Respiratory: bilateral: diminished, rhonchi, negative: rales, wheezing - Cardiovascular Rhythm: regular Heart Sounds: Present: S1 & S2 - Extremities Extremities: no ischemia Extremity abnormal: edema - Abdominal General gastrointestinal: soft, non-tender, non-distended, normal bowel sounds - Integumentary Integumentary: Present: clear, warm - Psychiatric Psychiatric: other (Intubated on ventilatory support) - Neurologic Neurologic: other (Intubated on ventilatory support) HEART Score - HEART Score Age: > 65 Risk factors: 1-2 risk factors Troponin: Troponin T < 0.010 ng/mL (0.00-0.029) 11/11/20 13:39 - Critical Actions Critical Actions: 0-3 pts:0.9-1.7%risk of adverse cardiac event.Candidate for discharge Results - Labs CBC & Chem 7: 11/17/20 04:00 11/16/20 Unknown Labs: Laboratory Last Values WBC 9.8 K/mm3 (4.5-11.0) 11/15/20 04:57 RBC 4.68 M/mm3 (3.65-5.03) 11/15/20 04:57 Hgb 10.7 gm/dl (10.1-14.3) 11/17/20 04:00 Hct 32.4 % (30.3-42.9) D 11/17/20 04:00 MCV 89 fl (79-97) 11/15/20 04:57 MCH 28 pg (28-32) 11/15/20 04:57 MCHC 32 % (30-34) 11/15/20 04:57 RDW 16.2 % (13.2-15.2) H 11/15/20 04:57 Plt Count 123 K/mm3 (140-440) L 11/17/20 04:00 Lymph % (Auto) 5.7 % (13.4-35.0) L 11/13/20 05:23 [place] % (Auto) 9.0 % (0.0-7.3) H 11/13/20 05:23 Eos % (Auto) 0.0 % (0.0-4.3) 11/13/20 05:23 Baso % (Auto) 0.0 % (0.0-1.8) 11/13/20 05:23 Lymph # (Auto) 0.9 K/mm3 (1.2-5.4) L 11/13/20 05:23 [place] # (Auto) 1.4 K/mm3 (0.0-0.8) H 11/13/20 05:23 Eos # (Auto) 0.0 K/mm3 (0.0-0.4) 11/13/20 05:23 Baso # (Auto) 0.0 K/mm3 (0.0-0.1) 11/13/20 05:23 Seg Neutrophils % 85.3 % (40.0-70.0) H 11/13/20 05:23 Seg Neutrophils # 13.6 K/mm3 (1.8-7.7) H 11/13/20 05:23 PT 16.0 Sec. (12.2-14.9) H 11/13/20 09:51 INR 1.23 (0.87-1.13) H 11/13/20 09:51 APTT 24.2 Sec. (24.2-36.6) 11/13/20 09:51 D-Dimer 3313.42 ng/mlDDU (0-234) H 11/15/20 04:57 Heparin Anti-Xa Level 0.38 U.I./ml (0.3-0.7) 11/16/20 17:00 ABG pH 7.498 (7.320-7.450) H 11/17/20 03:14 POC ABG pCO2 27.2 mmHg (32.0-48.0) L 11/17/20 03:14 POC ABG pO2 110.6 mmHg (83-108) H 11/17/20 03:14 POC ABG HCO3 20.6 11/17/20 03:14 ABG O2 Saturation 98.5 (0-100) 11/17/20 03:14 POC ABG Base Excess -1.5 11/17/20 03:14 ABG Hemoglobin 11.6 (12.0-17.5) L 11/17/20 03:14 ABG Oxyhemoglobin 97.7 (94-98) 11/17/20 03:14 ABG Methemoglobin 0.3 (0.0-1.5) 11/17/20 03:14 ABG Sodium 135.4 mmol/L (136.0-145.0) L 11/17/20 03:14 ABG Potassium 3.4 mmol/L (3.40-4.50) 11/17/20 03:14 ABG Chloride 106.0 mmol/L (98-107) 11/17/20 03:14 ABG Glucose 131 mg/dL (65-95) H 11/17/20 03:14 Carboxyhemoglobin 0.5 (0.5-1.5) 11/17/20 03:14 FiO2 % 80.0 11/17/20 03:14 Sodium 139 mmol/L (137-145) D 11/16/20 Unknown Potassium 3.5 mmol/L (3.6-5.0) L 11/16/20 Unknown Chloride 109.7 mmol/L (98-107) H 11/16/20 Unknown Carbon Dioxide 15 mmol/L (22-30) L 11/16/20 Unknown Anion Gap 18 mmol/L 11/16/20 Unknown BUN 65 mg/dL (7-17) H 11/16/20 Unknown Creatinine 2.2 mg/dL (0.6-1.2) H 11/16/20 Unknown Estimated GFR 21 ml/min 11/16/20 Unknown BUN/Creatinine Ratio 30 % 11/16/20 Unknown Glucose 174 mg/dL (65-100) H 11/16/20 Unknown POC Glucose 119 mg/dL (70-105) H 11/17/20 05:09 Hemoglobin A1c 6.6 % (4-6) H 11/12/20 05:07 Lactic Acid 2.10 mmol/L (0.7-2.0) H* 11/16/20 Unknown Calcium 6.1 mg/dL (8.4-10.2) L D 11/16/20 Unknown Ferritin 452.8 ng/mL (10.0-200.0) H 11/15/20 08:26 Total Bilirubin 0.30 mg/dL (0.1-1.2) 11/16/20 Unknown AST 171 units/L (5-40) H 11/16/20 Unknown ALT 268 units/L (7-56) H 11/16/20 Unknown Alkaline Phosphatase 63 units/L (35-129) 11/16/20 Unknown Lactate Dehydrogenase 596 units/L (91-180) H 11/15/20 04:57 Troponin T < 0.010 ng/mL (0.00-0.029) 11/11/20 13:39 C-Reactive Protein 34.50 mg/dL (0.00-1.30) H 11/15/20 04:57 Total Protein 4.3 g/dL (6.3-8.2) L 11/16/20 Unknown Albumin 1.9 g/dL (3.9-5) L 11/16/20 Unknown Albumin/Globulin Ratio 0.8 % 11/16/20 Unknown Lipase 55 units/L (13-60) 11/11/20 13:39 Procalcitonin < 0.05 ng/mL (<0.15) 11/11/20 16:59 Arterial Blood Glucose 131 mg/dL (65-95) H 11/17/20 03:14 Arterial Blood Ionized Calcium 3.7 mg/dL (4.6-5.3) L 11/17/20 03:14 Urine Color Red (Yellow) 11/14/20 06:15 Urine Turbidity Turbid (Clear) 11/14/20 06:15 Urine pH TNR 11/14/20 06:15 Ur Specific [place] 1.029 (1.003-1.030) 11/11/20 Unknown Urine Protein TNR 11/14/20 06:15 Urine Glucose (UA) Color interference mg/dL (Negative) 11/14/20 06:15 Urine Ketones Color interference mg/dL (Negative) 11/14/20 06:15 Urine Blood Sm (Negative) 11/11/20 Unknown Urine Nitrite TNR 11/14/20 06:15 Ur Reducing Substances TNR 11/14/20 06:15 Urine Bilirubin Color interference (Negative) 11/14/20 06:15 Urine Ictotest TNR 11/14/20 06:15 Urine Urobilinogen TNR 11/14/20 06:15 Ur Leukocyte Esterase TNR 11/14/20 06:15 Urine WBC (Auto) > 182.0 /HPF (0.0-6.0) H 11/14/20 06:15 Urine RBC (Auto) > 182.0 /HPF (0.0-6.0) 11/14/20 06:15 U Epithel Cells (Auto) 24.0 /HPF (0-13.0) H 11/14/20 06:15 Urine WBC Clumps 3+ /HPF 11/14/20 06:15 Urine Creatinine 80.2 mg/dL (0.1-20.0) H 11/14/20 06:15 Urine Sodium 28 mmol/L 11/14/20 06:15 Coronavirus (PCR) Positive (Negative) A 11/11/20 Unknown Blood Type A POSITIVE 11/11/20 15:00 Antibody Screen Negative 11/11/20 15:00 Microbiology: Microbiology 11/14/20 Unknown Peripheral/Venous Blood Culture - Preliminary NO GROWTH AFTER 48 HOURS 11/14/20 Unknown Peripheral/Venous Blood Culture - Preliminary NO GROWTH AFTER 48 HOURS 11/11/20 15:21 Peripheral/Venous Blood Culture - Final NO GROWTH AFTER 5 DAYS 11/11/20 15:10 Peripheral/Venous Blood Culture - Final NO GROWTH AFTER 5 DAYS 11/13/20 05:33 Sputum - Endotracheal Wash Sputum Culture - Preliminary Staphylococcus Aureus Lind/IV: Voiding Method Indwelling Catheter Active Medications - Current Medications Current Medications: Generic Name Dose Route Start Last Admin Trade Name Freq PRN Reason Stop Dose Admin Acetaminophen 650 mg 11/11/20 22:11 Acetaminophen 325 Mg Tab PO Q4H PRN Pain MILD(1-3)/Fever >100.5/ERAZO Albuterol 2.5 mg 11/13/20 07:40 Albuterol 2.5 Mg/3 Ml Nebu IH Q4HRT PRN Shortness Of Breath Albuterol/Ipratropium 1 ampul 11/13/20 08:00 11/17/20 00:21 Ipratropium/Albuterol Sulfate 3 Ml Ampul.Neb IH Not Given QIDRT CARLOS Lipase/Protease/Amylase 1 each 11/13/20 17:32 Lipase 10,500/Protease 25,000/Amylase 43,750 (Units) Dr Weiss FEEDTUBE PRN PRN For Clogged Feeding Tube Ascorbic Acid 500 mg 11/13/20 22:00 11/16/20 21:42 Ascorbic Acid 500 Mg Tab PO Not Given BID CARLOS Baclofen 10 mg 11/11/20 22:09 Baclofen 10 Mg Tab PO TID PRN MUSCLE SPASMS & PAIN Dexamethasone 6 mg 11/13/20 10:00 11/16/20 09:45 Dexamethasone 4 Mg/Ml Vial IV 11/22/20 10:01 6 mg Q24HR CARLOS Administration Dextrose 50 ml 11/13/20 16:43 11/14/20 01:12 Dextrose 50% In Water (25gm) 50 Ml Syringe IV 50 ml Q30MIN PRN Administration Hypoglycemia Protocol Fentanyl 50 mcg 11/13/20 05:33 Fentanyl 100 Mcg/2 Ml Inj IV Q10MIN PRN ANALGESIA Heparin Sodium (Porcine) 3,000 unit 11/13/20 05:04 Heparin 10,000 Units/10 Ml Vial 40 unit/kg (3000 unit) IV Q6H PRN Anti-Xa Assay < 0.1 units/ml Hydromorphone HCl 0.5 mg 11/11/20 22:11 Hydromorphone 1 Mg/1 Ml Inj IV Q3H PRN Pain , Severe (7-10) Hydrophilic Ointment 1 applic 11/13/20 05:33 Lip Therapy Vaseline TP Q2HR PRN Dry Lips Heparin Sodium/Sodium Chloride 25,000 unit in 500 mls @ 23 mls/hr 11/13/20 06:00 11/17/20 05:03 Heparin/ 0.45% Nacl-25,000 Unit/500 Ml IV 750 units/hr TITR CARLOS 15 mls/hr Administration Protocol 1,150 UNITS/HR Fentanyl Citrate 2,000 mcg in 100 mls @ 3.81 mls/hr 11/13/20 06:00 11/17/20 02:20 Fentanyl Drip Premix IV 1 mcg/kg/hr TITR CARLOS 3.81 mls/hr Administration Protocol 1 MCG/KG/HR NORepinephrine/NS 8 MG-250 ML 8 mg in 250 mls @ 3.75 mls/hr 11/13/20 15:00 11/16/20 16:48 Norepinephrine/Ns 8 Mg-250 Ml (Double Conc) IV 4 mcg/min TITRATE CARLOS 7.5 mls/hr Titration Protocol 2 MCG/MIN Sodium Bicarbonate 150 meq/ 1,150 mls @ 125 mls/hr 11/16/20 06:00 11/17/20 02:19 Dextrose IV 125 mls/hr DIRECT CARLOS Administration Insulin Human Regular 0 units 11/13/20 17:00 11/17/20 05:10 Insulin Regular, Human 100 Units/1 Ml SUB-Q Not Given Q6H CARLSO Protocol Metoclopramide HCl 5 mg 11/15/20 19:00 11/17/20 01:32 Metoclopramide 10 Mg/2 Ml Inj IV 5 mg Q6H CARLOS Administration Multi-Ingred Cream/Lotion/Oil/Oint 1 applic 11/13/20 05:33 Mineral Oil/Petrolatum, White Ophth Oint 3.5 Gm OU Q4HR PRN Dry Eye(s) Ondansetron HCl 4 mg 11/11/20 22:11 Ondansetron 4 Mg/2 Ml Inj IV Q3H PRN Nausea And Vomiting Oxycodone/Acetaminophen 1 tab 11/11/20 22:11 Oxycodone /Acetaminophen 5-325mg Tab PO Q6H PRN Pain, Moderate (4-6) Pantoprazole Sodium 40 mg 11/13/20 14:00 11/16/20 21:41 Pantoprazole 40 Mg Inj IV 40 mg BID CARLOS Administration Paroxetine HCl 10 mg 11/12/20 10:00 11/16/20 10:10 Paroxetine 10 Mg Tab PO Not Given DAILY CARLOS Ropinirole HCl 1 mg 11/12/20 22:00 11/16/20 21:42 Ropinirole 1 Mg Tab PO Not Given QHS CARLOS Senna/Docusate Sodium 1 tab 11/14/20 22:00 11/16/20 21:42 Sennosides/Docusate Sodium 8.6/50 Mg Tab FEEDTUBE Not Given BID CARLOS Simple Syrup 15 ml 11/13/20 17:32 Simple Syrup 15 Ml FEEDTUBE PRN PRN Hypoglycemia Simple Syrup 30 ml 11/13/20 17:32 Simple Syrup 15 Ml FEEDTUBE PRN PRN Hypoglycemia Sodium Bicarbonate 325 mg 11/13/20 17:32 Sodium Bicarbonate 325 Mg Tab FEEDTUBE PRN PRN For Clogged Feeding Tube Sodium Chloride 10 ml 11/12/20 10:00 11/16/20 21:41 Sodium Chloride 0.9% 10 Ml Flush Syringe IV 10 ml BID CARLOS Administration Sodium Chloride 10 ml 11/11/20 22:11 Sodium Chloride 0.9% 10 Ml Flush Syringe IV PRN PRN LINE FLUSH Zinc Sulfate 220 mg 11/13/20 22:00 11/16/20 21:42 Zinc Sulfate 220 Mg Cap PO Not Given BID [facility] Nutrition/Malnutrition Assess - Dietary Evaluation Nutrition/Malnutrition Findings: Nutrition Notes Start: 11/13/20 17:25 Freq: Status: Active Protocol: Document 11/15/20 10:57 (Rec: 11/15/20 11:02 [email or web address]) Nutrition Notes Initial or Follow up Brief Note Current Diagnosis Sepsis,Respiratory Failure Other Pertinent Diagnosis COVID-19 (+), Dehydration, (L) renal stone Current Diet None ordered Subjective/Other Information TF off and NG to LIS at this time with >1500ml output. Per RN, pt had N/V before starting TF. Once started, pt tolerated for "awhile" until she vomited last night and NG was turned to LIS. Nutrition Intervention Follow-Up By: 11/18/20 Additional Comments F/u: TF restart and tolerance
--- NOTE | 2020-11-17 09:53 | XRay Report ---
CHEST 1 VIEW 11/17/2020 8:13 AM INDICATION / CLINICAL INFORMATION: follow up respiratory failure. COMPARISON: Previous day. FINDINGS: SUPPORT DEVICES: Satisfactory position. HEART / MEDIASTINUM: No significant abnormality. LUNGS / PLEURA: Persistent elevation right hemidiaphragm. Mild vascular congestion and patchy bibasil ar airspace opacity remains. No pneumothorax. ADDITIONAL FINDINGS: No significant additional findings. IMPRESSION: No significant change. Signer Name: Jose Raul Kaye MD Signed: 11/17/2020 9:48 AM Workstation Name: [id number]
[2020-11-17] MEDS: PANTOPRAZOLE 40 MG INJ IV SCH ×2 (09:54→21:29)
[2020-11-17] MEDS: dexAMETHasone 4 MG/ML VIAL IV SCH (09:54)
[2020-11-17 10:42] LABS: C-Reactive Protein 4.8 mg/dL (0.00-1.30)
[2020-11-17] MEDS: PARoxetine 10 MG TAB PO SCH (11:32)
[2020-11-17] MEDS: SENNOSIDES/DOCUSATE SODIUM 8.6/50 MG TAB FEEDTUBE SCH ×2 (11:32→21:29)
[2020-11-17] MEDS: ASCORBIC ACID 500 MG TAB PO SCH (11:32)
[2020-11-17] MEDS: ZINC SULFATE 220 MG CAP PO SCH ×2 (11:32→21:29)
--- NOTE | 2020-11-17 11:39 | Progress Note ---
Assessment and Plan 1. Acute kidney injury: KATLYN in the setting of severe Covid infection. Patient is also hypotensive. Received IV contrast 11/13. CT abdomen showed non-obstructive 7 mm distal left ureteral stone. Low FeNa. Monitor renal function. Creatinine level fluctuates. Renal prognosis is guarded. Avoid nephrotoxic agents. Meds dosage based on GFR. No chemistry from today, spoke to the staff at lab. 2. FEN: Hypernatremia, improved, monitor. Hyperchloremic metabolic acidosis, Sod bicarb drip, monitor. Hypokalemia, replete K as needed, monitor. Monitor lytes and volume status. 3. Acute respiratory failure with hypoxemia: 2/2 Covid PNA. Currently on vent, wean as tolerated. 4. Shock: Off pressors. Monitor. 5. Covid PNA: Followed by ID. 6. L ureteral stone: S/p b/l stent. Seen by Urologist. 7. Elevated ALT & AST: Trend. 8. DM type 2: Monitor. Subjective: Patient was seen and examined at the bedside. Examination: General appearance: well-developed, appears stated age, intubated on vent HEENT: atraumatic, no icterus Neck: trachea midline Respiratory: MV sounds Heart: S1S2, regular, no murmur Abdomen: soft, bowel sounds heard, NT Integumentary: no obvious rash Neurologic: not responding Ext: no edema : Lind catheter Subjective Date of service: 11/17/20 Principal diagnosis: Ac hypoxemic resp failure; COVID-19 infxn; Pneumonia; KATLYN; AMS; Sepsis Objective - Vital Signs Vital signs: Vital Signs - 12hr 11/16/20 11/16/20 11/17/20 23:40 23:50 00:00 Temperature 98.4 F Pulse Rate 85 88 86 Pulse Rate [ Anterior Bilateral Throughout] Pulse Rate [ 88 From Monitor] Respiratory 17 15 18 Rate Respiratory Rate [Anterior Bilateral Throughout] Blood Pressure 111/60 120/69 124/69 O2 Sat by Pulse 98 99 100 Oximetry 11/17/20 11/17/20 11/17/20 00:10 00:20 00:30 Temperature Pulse Rate 87 89 89 Pulse Rate [ Anterior Bilateral Throughout] Pulse Rate [ From Monitor] Respiratory 18 17 19 Rate Respiratory Rate [Anterior Bilateral Throughout] Blood Pressure 119/65 128/70 123/65 O2 Sat by Pulse 99 100 99 Oximetry 11/17/20 11/17/20 11/17/20 00:40 00:50 01:00 Temperature Pulse Rate 88 90 93 H Pulse Rate [ Anterior Bilateral Throughout] Pulse Rate [ From Monitor] Respiratory 21 21 Rate Respiratory Rate [Anterior Bilateral Throughout] Blood Pressure 123/67 129/73 149/77 O2 Sat by Pulse 99 100 100 Oximetry 11/17/20 11/17/20 11/17/20 01:10 01:20 01:30 Temperature Pulse Rate 91 H 93 H 92 H Pulse Rate [ Anterior Bilateral Throughout] Pulse Rate [ From Monitor] Respiratory 21 23 23 Rate Respiratory Rate [Anterior Bilateral Throughout] Blood Pressure 137/70 132/71 136/73 O2 Sat by Pulse 100 100 100 Oximetry 11/17/20 11/17/20 11/17/20 01:40 01:50 02:00 Temperature Pulse Rate 89 91 H 89 Pulse Rate [ Anterior Bilateral Throughout] Pulse Rate [ From Monitor] Respiratory 22 21 20 Rate Respiratory Rate [Anterior Bilateral Throughout] Blood Pressure 133/75 135/71 129/71 O2 Sat by Pulse 100 100 100 Oximetry 11/17/20 11/17/20 11/17/20 02:10 02:20 02:30 Temperature Pulse Rate 90 89 87 Pulse Rate [ Anterior Bilateral Throughout] Pulse Rate [ From Monitor] Respiratory 18 19 17 Rate Respiratory Rate [Anterior Bilateral Throughout] Blood Pressure 123/62 124/68 124/69 O2 Sat by Pulse 99 99 99 Oximetry 11/17/20 11/17/20 11/17/20 02:40 02:50 03:00 Temperature Pulse Rate 87 87 85 Pulse Rate [ Anterior Bilateral Throughout] Pulse Rate [ From Monitor] Respiratory 18 18 18 Rate Respiratory Rate [Anterior Bilateral Throughout] Blood Pressure 127/64 120/66 122/66 O2 Sat by Pulse 99 99 98 Oximetry 11/17/20 11/17/20 11/17/20 03:10 03:20 03:30 Temperature Pulse Rate 85 84 84 Pulse Rate [ Anterior Bilateral Throughout] Pulse Rate [ From Monitor] Respiratory 20 22 20 Rate Respiratory Rate [Anterior Bilateral Throughout] Blood Pressure 120/63 121/61 120/63 O2 Sat by Pulse 99 98 98 Oximetry 11/17/20 11/17/20 11/17/20 03:40 03:50 04:00 Temperature 97.7 F Pulse Rate 83 87 88 Pulse Rate [ Anterior Bilateral Throughout] Pulse Rate [ 83 From Monitor] Respiratory 17 17 21 Rate Respiratory Rate [Anterior Bilateral Throughout] Blood Pressure 121/64 142/70 116/60 O2 Sat by Pulse 99 100 98 Oximetry 11/17/20 11/17/20 11/17/20 04:10 04:20 04:30 Temperature Pulse Rate 91 H 85 83 Pulse Rate [ Anterior Bilateral Throughout] Pulse Rate [ From Monitor] Respiratory 18 17 20 Rate Respiratory Rate [Anterior Bilateral Throughout] Blood Pressure 129/78 132/65 117/64 O2 Sat by Pulse 97 98 98 Oximetry 11/17/20 11/17/20 11/17/20 04:40 04:50 05:00 Temperature Pulse Rate 82 82 81 Pulse Rate [ Anterior Bilateral Throughout] Pulse Rate [ From Monitor] Respiratory 20 20 18 Rate Respiratory Rate [Anterior Bilateral Throughout] Blood Pressure 117/59 116/60 124/62 O2 Sat by Pulse 97 97 98 Oximetry 11/17/20 11/17/20 11/17/20 05:10 05:20 05:30 Temperature Pulse Rate 81 79 80 Pulse Rate [ Anterior Bilateral Throughout] Pulse Rate [ From Monitor] Respiratory 18 20 20 Rate Respiratory Rate [Anterior Bilateral Throughout] Blood Pressure 123/62 113/57 114/58 O2 Sat by Pulse 99 97 98 Oximetry 11/17/20 11/17/20 11/17/20 05:40 05:50 06:00 Temperature Pulse Rate 78 79 77 Pulse Rate [ Anterior Bilateral Throughout] Pulse Rate [ From Monitor] Respiratory 20 20 21 Rate Respiratory Rate [Anterior Bilateral Throughout] Blood Pressure 110/57 124/61 116/58 O2 Sat by Pulse 98 98 98 Oximetry 11/17/20 11/17/20 11/17/20 06:10 06:20 06:30 Temperature Pulse Rate 78 80 77 Pulse Rate [ Anterior Bilateral Throughout] Pulse Rate [ From Monitor] Respiratory 20 19 20 Rate Respiratory Rate [Anterior Bilateral Throughout] Blood Pressure 111/58 129/67 117/59 O2 Sat by Pulse 98 99 98 Oximetry 11/17/20 11/17/20 11/17/20 06:40 06:50 07:00 Temperature Pulse Rate 76 76 75 Pulse Rate [ Anterior Bilateral Throughout] Pulse Rate [ From Monitor] Respiratory 20 20 20 Rate Respiratory Rate [Anterior Bilateral Throughout] Blood Pressure 115/58 115/61 113/56 O2 Sat by Pulse 98 98 98 Oximetry 11/17/20 11/17/20 11/17/20 07:10 07:20 07:30 Temperature Pulse Rate 77 84 86 Pulse Rate [ Anterior Bilateral Throughout] Pulse Rate [ From Monitor] Respiratory 20 17 18 Rate Respiratory Rate [Anterior Bilateral Throughout] Blood Pressure 119/59 151/69 143/67 O2 Sat by Pulse 99 99 99 Oximetry 11/17/20 11/17/20 11/17/20 07:36 07:40 07:50 Temperature 97.5 F L Pulse Rate 82 83 Pulse Rate [ Anterior Bilateral Throughout] Pulse Rate [ From Monitor] Respiratory 21 18 Rate Respiratory Rate [Anterior Bilateral Throughout] Blood Pressure 126/63 126/62 O2 Sat by Pulse 98 98 Oximetry 11/17/20 11/17/20 11/17/20 08:00 08:10 08:20 Temperature Pulse Rate 87 79 79 Pulse Rate [ Anterior Bilateral Throughout] Pulse Rate [ From Monitor] Respiratory 20 21 20 Rate Respiratory Rate [Anterior Bilateral Throughout] Blood Pressure 137/57 118/58 114/57 O2 Sat by Pulse 96 98 98 Oximetry 11/17/20 11/17/20 11/17/20 08:30 08:40 08:50 Temperature Pulse Rate 79 79 77 Pulse Rate [ Anterior Bilateral Throughout] Pulse Rate [ From Monitor] Respiratory 20 20 20 Rate Respiratory Rate [Anterior Bilateral Throughout] Blood Pressure 119/60 116/57 112/57 O2 Sat by Pulse 98 98 98 Oximetry 11/17/20 11/17/20 11/17/20 09:00 09:10 09:20 Temperature Pulse Rate 84 84 80 Pulse Rate [ Anterior Bilateral Throughout] Pulse Rate [ From Monitor] Respiratory 19 17 20 Rate Respiratory Rate [Anterior Bilateral Throughout] Blood Pressure 102/78 129/64 116/58 O2 Sat by Pulse 100 99 98 Oximetry 11/17/20 11/17/20 11/17/20 09:29 09:30 09:40 Temperature Pulse Rate 83 91 H Pulse Rate [ 89 Anterior Bilateral Throughout] Pulse Rate [ From Monitor] Respiratory 18 17 Rate Respiratory 20 Rate [Anterior Bilateral Throughout] Blood Pressure 144/70 137/57 O2 Sat by Pulse 100 99 Oximetry 11/17/20 11/17/20 11/17/20 09:50 10:00 10:10 Temperature Pulse Rate 89 85 87 Pulse Rate [ Anterior Bilateral Throughout] Pulse Rate [ From Monitor] Respiratory 22 18 20 Rate Respiratory Rate [Anterior Bilateral Throughout] Blood Pressure 130/78 125/69 119/56 O2 Sat by Pulse 99 100 100 Oximetry 11/17/20 11/17/20 11/17/20 10:20 10:30 10:40 Temperature Pulse Rate 82 83 80 Pulse Rate [ Anterior Bilateral Throughout] Pulse Rate [ From Monitor] Respiratory 20 20 20 Rate Respiratory Rate [Anterior Bilateral Throughout] Blood Pressure 109/53 115/55 107/48 O2 Sat by Pulse 98 99 99 Oximetry 11/17/20 11/17/20 11/17/20 10:50 11:00 11:10 Temperature Pulse Rate 86 79 78 Pulse Rate [ Anterior Bilateral Throughout] Pulse Rate [ From Monitor] Respiratory 19 20 20 Rate Respiratory Rate [Anterior Bilateral Throughout] Blood Pressure 128/56 104/49 108/52 O2 Sat by Pulse 100 99 99 Oximetry 11/17/20 11/17/20 11:20 11:30 Temperature Pulse Rate 77 77 Pulse Rate [ Anterior Bilateral Throughout] Pulse Rate [ From Monitor] Respiratory 20 20 Rate Respiratory Rate [Anterior Bilateral Throughout] Blood Pressure 109/49 108/51 O2 Sat by Pulse 100 100 Oximetry - Lab 11/17/20 04:00 11/17/20 09:59 Most recent lab results ABG pH 7.498 (7.320-7.450) H 11/17/20 03:14 ABG O2 Saturation 98.5 (0-100) 11/17/20 03:14 Calcium 6.1 mg/dL (8.4-10.2) L D 11/16/20 Unknown Urine Creatinine 80.2 mg/dL (0.1-20.0) H 11/14/20 06:15 Urine Sodium 28 mmol/L 11/14/20 06:15 Medications & Allergies - Medications Allergies/Adverse Reactions: Allergies morphine Adverse Reaction (Verified 05/26/13 19:22) Nausea Home Medications: Home Medications Medication Instructions Recorded Confirmed Last Taken Type Acetaminophen [Tylenol] 325 mg PO DAILY #10 tablet 05/26/13 10/17/14 10/16/14 Rx Baclofen [Lioresal] 10 mg PO TID PRN 05/26/13 10/17/14 10/16/14 History Diazepam [Valium] 10 mg PO BID 05/26/13 10/17/14 10/16/14 History PARoxetine [Paxil] 10 mg PO DAILY 05/26/13 10/17/14 10/16/14 19:00 History Quetiapine Fumarate [SEROquel XR] 200 mg PO DAILY 05/26/13 10/17/14 10/16/14 History rOPINIRole [Requip] 1 mg PO QHS 05/26/13 10/17/14 10/16/14 19:00 History QUEtiapine [SEROquel] 200 mg PO QHS 05/28/13 10/17/14 10/16/14 19:00 History Famotidine [Pepcid] 10 mg PO BID #60 tablet 06/02/13 10/17/14 10/16/14 Rx levoFLOXacin [Levaquin] 750 mg PO QDAY #7 tablet 06/02/13 10/17/14 10/16/14 Rx metroNIDAZOLE [Flagyl] 500 mg PO Q8HR #30 tablet 06/02/13 10/17/14 10/16/14 Rx Hydromorphone HCl [Dilaudid] 4 mg PO 10/17/14 10/17/14 10/16/14 History Oxycodone HCl/Acetaminophen 1 each PO Q6HR PRN 10/17/14 10/17/14 10/16/14 History [Percocet 10-325 mg] Oxycodone HCl/Acetaminophen 1 each PO Q6HR PRN #30 tablet 10/18/14 Unknown Rx [Percocet 10-325 mg] Active Medications: Generic Name Dose Route Start Last Admin Trade Name Freq PRN Reason Stop Dose Admin Acetaminophen 650 mg 11/11/20 22:11 Acetaminophen 325 Mg Tab PO Q4H PRN Pain MILD(1-3)/Fever >100.5/ERAZO Albuterol 2.5 mg 11/13/20 07:40 Albuterol 2.5 Mg/3 Ml Nebu IH Q4HRT PRN Shortness Of Breath Albuterol/Ipratropium 1 ampul 11/13/20 08:00 11/17/20 09:29 Ipratropium/Albuterol Sulfate 3 Ml Ampul.Neb IH 1 ampul QIDRT CARLOS Administration Lipase/Protease/Amylase 1 each 11/13/20 17:32 Lipase 10,500/Protease 25,000/Amylase 43,750 (Units) Dr Weiss FEEDTUBE PRN PRN For Clogged Feeding Tube Ascorbic Acid 500 mg 11/13/20 22:00 11/17/20 11:32 Ascorbic Acid 500 Mg Tab PO Not Given BID CARLOS Baclofen 10 mg 11/11/20 22:09 Baclofen 10 Mg Tab PO TID PRN MUSCLE SPASMS & PAIN Dexamethasone 6 mg 11/13/20 10:00 11/17/20 09:54 Dexamethasone 4 Mg/Ml Vial IV 11/22/20 10:01 6 mg Q24HR CARLOS Administration Dextrose 50 ml 11/13/20 16:43 11/14/20 01:12 Dextrose 50% In Water (25gm) 50 Ml Syringe IV 50 ml Q30MIN PRN Administration Hypoglycemia Protocol Fentanyl 50 mcg 11/13/20 05:33 Fentanyl 100 Mcg/2 Ml Inj IV Q10MIN PRN ANALGESIA Heparin Sodium (Porcine) 3,000 unit 11/13/20 05:04 Heparin 10,000 Units/10 Ml Vial 40 unit/kg (3000 unit) IV Q6H PRN Anti-Xa Assay < 0.1 units/ml Hydromorphone HCl 0.5 mg 11/11/20 22:11 Hydromorphone 1 Mg/1 Ml Inj IV Q3H PRN Pain , Severe (7-10) Hydrophilic Ointment 1 applic 11/13/20 05:33 Lip Therapy Vaseline TP Q2HR PRN Dry Lips Heparin Sodium/Sodium Chloride 25,000 unit in 500 mls @ 23 mls/hr 11/13/20 06:00 11/17/20 05:03 Heparin/ 0.45% Nacl-25,000 Unit/500 Ml IV 750 units/hr TITR CARLOS 15 mls/hr Administration Protocol 1,150 UNITS/HR Fentanyl Citrate 2,000 mcg in 100 mls @ 3.81 mls/hr 11/13/20 06:00 11/17/20 02:20 Fentanyl Drip Premix IV 1 mcg/kg/hr TITR CARLOS 3.81 mls/hr Administration Protocol 1 MCG/KG/HR NORepinephrine/NS 8 MG-250 ML 8 mg in 250 mls @ 3.75 mls/hr 11/13/20 15:00 11/16/20 16:48 Norepinephrine/Ns 8 Mg-250 Ml (Double Conc) IV 4 mcg/min TITRATE CARLOS 7.5 mls/hr Titration Protocol 2 MCG/MIN Sodium Bicarbonate 150 meq/ 1,150 mls @ 125 mls/hr 11/16/20 06:00 11/17/20 02:19 Dextrose IV 125 mls/hr DIRECT CARLOS Administration Insulin Human Regular 0 units 11/13/20 17:00 11/17/20 05:10 Insulin Regular, Human 100 Units/1 Ml SUB-Q Not Given Q6H [facility] Protocol Metoclopramide HCl 5 mg 11/15/20 19:00 11/17/20 09:55 Metoclopramide 10 Mg/2 Ml Inj IV 5 mg Q6H CARLOS Administration Multi-Ingred Cream/Lotion/Oil/Oint 1 applic 11/13/20 05:33 Mineral Oil/Petrolatum, White Ophth Oint 3.5 Gm OU Q4HR PRN Dry Eye(s) Ondansetron HCl 4 mg 11/11/20 22:11 Ondansetron 4 Mg/2 Ml Inj IV Q3H PRN Nausea And Vomiting Oxycodone/Acetaminophen 1 tab 11/11/20 22:11 Oxycodone /Acetaminophen 5-325mg Tab PO Q6H PRN Pain, Moderate (4-6) Pantoprazole Sodium 40 mg 11/13/20 14:00 11/17/20 09:54 Pantoprazole 40 Mg Inj IV 40 mg BID CARLOS Administration Paroxetine HCl 10 mg 11/12/20 10:00 11/17/20 11:32 Paroxetine 10 Mg Tab PO Not Given DAILY CARLOS Ropinirole HCl 1 mg 11/12/20 22:00 11/16/20 21:42 Ropinirole 1 Mg Tab PO Not Given QHS CARLOS Senna/Docusate Sodium 1 tab 11/14/20 22:00 11/17/20 11:32 Sennosides/Docusate Sodium 8.6/50 Mg Tab FEEDTUBE Not Given BID CARLOS Simple Syrup 15 ml 11/13/20 17:32 Simple Syrup 15 Ml FEEDTUBE PRN PRN Hypoglycemia Simple Syrup 30 ml 11/13/20 17:32 Simple Syrup 15 Ml FEEDTUBE PRN PRN Hypoglycemia Sodium Bicarbonate 325 mg 11/13/20 17:32 Sodium Bicarbonate 325 Mg Tab FEEDTUBE PRN PRN For Clogged Feeding Tube Sodium Chloride 10 ml 11/12/20 10:00 11/17/20 09:56 Sodium Chloride 0.9% 10 Ml Flush Syringe IV 10 ml BID CARLOS Administration Sodium Chloride 10 ml 11/11/20 22:11 Sodium Chloride 0.9% 10 Ml Flush Syringe IV PRN PRN LINE FLUSH Zinc Sulfate 220 mg 11/13/20 22:00 11/17/20 11:32 Zinc Sulfate 220 Mg Cap PO Not Given BID CARLOS
[2020-11-17 12:08] LABS: Calcium 6.5 mg/dL (8.4-10.2)
[2020-11-17] MEDS ORDERED: POTASSIUM CHLORIDE 20 MEQ PACKET FEEDTUBE ONE (13:00)
[2020-11-17] MEDS ORDERED: CALCIUM GLUCONATE 2,000 MG in SODIUM CHLORIDE 0.9% 100 ML IV ONE (13:16)
--- NOTE | 2020-11-17 16:35 | Progress Note ---
Assessment and Plan 85-year-old female with Covid pneumonia who presents to the hospital with respiratory distress who had inadvertent left carotid line insertion. Continue heparin drip. No left neck hematoma. Thrombus associated with carotid central line. Patient is sedated due to elevated PEEP and therefore cannot assess for stroke although I am not certain how that would change coordinator. Patient may be made DNR due to underlying Covid pneumonia. Staff continues to have discussions with family. If patient improves, then she will be taken down to the [facility] for left carotid stenting and central line removal. Subjective Date of service: 11/17/20 Principal diagnosis: Ac hypoxemic resp failure; COVID-19 infxn; Pneumonia; KATLYN; AMS; Sepsis Interval history: Patient is sedated. No hematoma of the left neck. Doing poorly. Family and staff are discussing possible DNR status. Left carotid central line intact. Objective - Constitutional Vitals: Vital Signs - 12hr 11/17/20 11/17/20 11/17/20 04:40 04:50 05:00 Temperature Pulse Rate 82 82 81 Pulse Rate [ Anterior Bilateral Throughout] Respiratory 20 20 18 Rate Respiratory Rate [Anterior Bilateral Throughout] Blood Pressure 117/59 116/60 124/62 O2 Sat by Pulse 97 97 98 Oximetry 11/17/20 11/17/20 11/17/20 05:10 05:20 05:30 Temperature Pulse Rate 81 79 80 Pulse Rate [ Anterior Bilateral Throughout] Respiratory 18 20 20 Rate Respiratory Rate [Anterior Bilateral Throughout] Blood Pressure 123/62 113/57 114/58 O2 Sat by Pulse 99 97 98 Oximetry 11/17/20 11/17/20 11/17/20 05:40 05:50 06:00 Temperature Pulse Rate 78 79 77 Pulse Rate [ Anterior Bilateral Throughout] Respiratory 20 20 21 Rate Respiratory Rate [Anterior Bilateral Throughout] Blood Pressure 110/57 124/61 116/58 O2 Sat by Pulse 98 98 98 Oximetry 11/17/20 11/17/20 11/17/20 06:10 06:20 06:30 Temperature Pulse Rate 78 80 77 Pulse Rate [ Anterior Bilateral Throughout] Respiratory 20 19 20 Rate Respiratory Rate [Anterior Bilateral Throughout] Blood Pressure 111/58 129/67 117/59 O2 Sat by Pulse 98 99 98 Oximetry 11/17/20 11/17/20 11/17/20 06:40 06:50 07:00 Temperature Pulse Rate 76 76 75 Pulse Rate [ Anterior Bilateral Throughout] Respiratory 20 20 20 Rate Respiratory Rate [Anterior Bilateral Throughout] Blood Pressure 115/58 115/61 113/56 O2 Sat by Pulse 98 98 98 Oximetry 11/17/20 11/17/20 11/17/20 07:10 07:20 07:30 Temperature Pulse Rate 77 84 86 Pulse Rate [ Anterior Bilateral Throughout] Respiratory 20 17 18 Rate Respiratory Rate [Anterior Bilateral Throughout] Blood Pressure 119/59 151/69 143/67 O2 Sat by Pulse 99 99 99 Oximetry 11/17/20 11/17/20 11/17/20 07:36 07:40 07:50 Temperature 97.5 F L Pulse Rate 82 83 Pulse Rate [ Anterior Bilateral Throughout] Respiratory 21 18 Rate Respiratory Rate [Anterior Bilateral Throughout] Blood Pressure 126/63 126/62 O2 Sat by Pulse 98 98 Oximetry 11/17/20 11/17/20 11/17/20 08:00 08:10 08:20 Temperature Pulse Rate 87 79 79 Pulse Rate [ Anterior Bilateral Throughout] Respiratory 20 21 20 Rate Respiratory Rate [Anterior Bilateral Throughout] Blood Pressure 137/57 118/58 114/57 O2 Sat by Pulse 96 98 98 Oximetry 11/17/20 11/17/20 11/17/20 08:30 08:40 08:50 Temperature Pulse Rate 79 79 77 Pulse Rate [ Anterior Bilateral Throughout] Respiratory 20 20 20 Rate Respiratory Rate [Anterior Bilateral Throughout] Blood Pressure 119/60 116/57 112/57 O2 Sat by Pulse 98 98 98 Oximetry 11/17/20 11/17/20 11/17/20 09:00 09:10 09:20 Temperature Pulse Rate 84 84 80 Pulse Rate [ Anterior Bilateral Throughout] Respiratory 19 17 20 Rate Respiratory Rate [Anterior Bilateral Throughout] Blood Pressure 102/78 129/64 116/58 O2 Sat by Pulse 100 99 98 Oximetry 11/17/20 11/17/20 11/17/20 09:29 09:30 09:40 Temperature Pulse Rate 83 91 H Pulse Rate [ 89 Anterior Bilateral Throughout] Respiratory 18 17 Rate Respiratory 20 Rate [Anterior Bilateral Throughout] Blood Pressure 144/70 137/57 O2 Sat by Pulse 100 99 Oximetry 11/17/20 11/17/20 11/17/20 09:50 10:00 10:10 Temperature Pulse Rate 89 85 87 Pulse Rate [ Anterior Bilateral Throughout] Respiratory 22 18 20 Rate Respiratory Rate [Anterior Bilateral Throughout] Blood Pressure 130/78 125/69 119/56 O2 Sat by Pulse 99 100 100 Oximetry 11/17/20 11/17/20 11/17/20 10:20 10:30 10:40 Temperature Pulse Rate 82 83 80 Pulse Rate [ Anterior Bilateral Throughout] Respiratory 20 20 20 Rate Respiratory Rate [Anterior Bilateral Throughout] Blood Pressure 109/53 115/55 107/48 O2 Sat by Pulse 98 99 99 Oximetry 11/17/20 11/17/20 11/17/20 10:50 11:00 11:10 Temperature Pulse Rate 86 79 78 Pulse Rate [ Anterior Bilateral Throughout] Respiratory 19 20 20 Rate Respiratory Rate [Anterior Bilateral Throughout] Blood Pressure 128/56 104/49 108/52 O2 Sat by Pulse 100 99 99 Oximetry 11/17/20 11/17/20 11/17/20 11:20 11:30 11:40 Temperature Pulse Rate 77 77 76 Pulse Rate [ Anterior Bilateral Throughout] Respiratory 20 20 20 Rate Respiratory Rate [Anterior Bilateral Throughout] Blood Pressure 109/49 108/51 113/51 O2 Sat by Pulse 100 100 100 Oximetry 11/17/20 11/17/20 11/17/20 11:46 11:50 12:00 Temperature 97.7 F Pulse Rate 75 75 Pulse Rate [ Anterior Bilateral Throughout] Respiratory 20 20 Rate Respiratory Rate [Anterior Bilateral Throughout] Blood Pressure 105/51 113/53 O2 Sat by Pulse 99 100 Oximetry 11/17/20 11/17/20 11/17/20 12:05 12:10 12:20 Temperature Pulse Rate 76 76 76 Pulse Rate [ 78 Anterior Bilateral Throughout] Respiratory 20 20 Rate Respiratory 20 Rate [Anterior Bilateral Throughout] Blood Pressure 117/51 108/52 116/52 O2 Sat by Pulse 100 100 100 Oximetry 11/17/20 11/17/20 11/17/20 12:30 12:40 12:50 Temperature Pulse Rate 76 78 77 Pulse Rate [ Anterior Bilateral Throughout] Respiratory 19 20 21 Rate Respiratory Rate [Anterior Bilateral Throughout] Blood Pressure 114/51 112/50 114/49 O2 Sat by Pulse 100 100 100 Oximetry 11/17/20 11/17/20 11/17/20 13:00 13:10 13:20 Temperature Pulse Rate 74 74 74 Pulse Rate [ Anterior Bilateral Throughout] Respiratory 19 20 20 Rate Respiratory Rate [Anterior Bilateral Throughout] Blood Pressure 109/50 111/49 120/52 O2 Sat by Pulse 100 100 100 Oximetry 11/17/20 11/17/20 11/17/20 13:30 13:40 13:50 Temperature Pulse Rate 75 81 76 Pulse Rate [ Anterior Bilateral Throughout] Respiratory 22 17 20 Rate Respiratory Rate [Anterior Bilateral Throughout] Blood Pressure 115/50 113/50 146/53 O2 Sat by Pulse 100 100 100 Oximetry 11/17/20 11/17/20 11/17/20 14:00 14:10 14:20 Temperature Pulse Rate 77 75 76 Pulse Rate [ Anterior Bilateral Throughout] Respiratory 20 20 19 Rate Respiratory Rate [Anterior Bilateral Throughout] Blood Pressure 111/50 114/46 121/50 O2 Sat by Pulse 99 100 100 Oximetry 11/17/20 14:30 Temperature Pulse Rate 76 Pulse Rate [ Anterior Bilateral Throughout] Respiratory 21 Rate Respiratory Rate [Anterior Bilateral Throughout] Blood Pressure 114/46 O2 Sat by Pulse 100 Oximetry General appearance: Present: other (Intubated) - EENT ENT: other (Intubated, no left neck hematoma, carotid central line intact) - Respiratory Respiratory effort: other (Intubated) - Psychiatric Psychiatric: other (Intubated) - Labs CBC & Chem 7: 11/17/20 04:00 11/17/20 Unknown Labs: Abnormal lab results 11/16/20 11/16/20 11/17/20 Range/Units 17:15 23:50 03:14 Plt Count (140-440) K/mm3 D-Dimer (0-234) ng/mlDDU ABG pH 7.498 H (7.320-7.450) POC ABG pCO2 27.2 L (32.0-48.0) mmHg POC ABG pO2 110.6 H (83-108) mmHg ABG Hemoglobin 11.6 L (12.0-17.5) ABG Sodium 135.4 L (136.0-145.0) mmol/L ABG Glucose 131 H (65-95) mg/dL Potassium (3.6-5.0) mmol/L BUN (7-17) mg/dL Creatinine (0.6-1.2) mg/dL Glucose (65-100) mg/dL POC Glucose 139 H 132 H (70-105) mg/dL Calcium (8.4-10.2) mg/dL Ferritin (10.0-200.0) ng/mL Lactate Dehydrogenase (91-180) units/L C-Reactive Protein (0.00-1.30) mg/dL Arterial Blood Glucose 131 H (65-95) mg/dL Arterial Blood Ionized Calcium 3.7 L (4.6-5.3) mg/dL 11/17/20 11/17/20 11/17/20 Range/Units 04:00 05:09 09:59 Plt Count 123 L (140-440) K/mm3 D-Dimer 1401.08 H (0-234) ng/mlDDU ABG pH (7.320-7.450) POC ABG pCO2 (32.0-48.0) mmHg POC ABG pO2 (83-108) mmHg ABG Hemoglobin (12.0-17.5) ABG Sodium (136.0-145.0) mmol/L ABG Glucose (65-95) mg/dL Potassium (3.6-5.0) mmol/L BUN (7-17) mg/dL Creatinine (0.6-1.2) mg/dL Glucose (65-100) mg/dL POC Glucose 119 H (70-105) mg/dL Calcium (8.4-10.2) mg/dL Ferritin (10.0-200.0) ng/mL Lactate Dehydrogenase (91-180) units/L C-Reactive Protein (0.00-1.30) mg/dL Arterial Blood Glucose (65-95) mg/dL Arterial Blood Ionized Calcium (4.6-5.3) mg/dL 11/17/20 11/17/20 11/17/20 Range/Units 09:59 09:59 11:28 Plt Count (140-440) K/mm3 D-Dimer (0-234) ng/mlDDU ABG pH (7.320-7.450) POC ABG pCO2 (32.0-48.0) mmHg POC ABG pO2 (83-108) mmHg ABG Hemoglobin (12.0-17.5) ABG Sodium (136.0-145.0) mmol/L ABG Glucose (65-95) mg/dL Potassium (3.6-5.0) mmol/L BUN (7-17) mg/dL Creatinine (0.6-1.2) mg/dL Glucose 127 H (65-100) mg/dL POC Glucose 114 H (70-105) mg/dL Calcium (8.4-10.2) mg/dL Ferritin 224.1 H (10.0-200.0) ng/mL Lactate Dehydrogenase 515 H (91-180) units/L C-Reactive Protein 4.80 H (0.00-1.30) mg/dL Arterial Blood Glucose (65-95) mg/dL Arterial Blood Ionized Calcium (4.6-5.3) mg/dL 11/17/20 Range/Units Unknown Plt Count (140-440) K/mm3 D-Dimer (0-234) ng/mlDDU ABG pH (7.320-7.450) POC ABG pCO2 (32.0-48.0) mmHg POC ABG pO2 (83-108) mmHg ABG Hemoglobin (12.0-17.5) ABG Sodium (136.0-145.0) mmol/L ABG Glucose (65-95) mg/dL Potassium 3.5 L (3.6-5.0) mmol/L BUN 67 H (7-17) mg/dL Creatinine 1.8 H (0.6-1.2) mg/dL Glucose 129 H (65-100) mg/dL POC Glucose (70-105) mg/dL Calcium 6.5 L (8.4-10.2) mg/dL Ferritin (10.0-200.0) ng/mL Lactate Dehydrogenase (91-180) units/L C-Reactive Protein (0.00-1.30) mg/dL Arterial Blood Glucose (65-95) mg/dL Arterial Blood Ionized Calcium (4.6-5.3) mg/dL Medications & Allergies - Medications Allergies/Adverse Reactions: Allergies morphine Adverse Reaction (Verified 05/26/13 19:22) Nausea Home Medications: Home Medications Medication Instructions Recorded Confirmed Last Taken Type Acetaminophen [Tylenol] 325 mg PO DAILY #10 tablet 05/26/13 10/17/14 10/16/14 Rx Baclofen [Lioresal] 10 mg PO TID PRN 05/26/13 10/17/14 10/16/14 History Diazepam [Valium] 10 mg PO BID 05/26/13 10/17/14 10/16/14 History PARoxetine [Paxil] 10 mg PO DAILY 05/26/13 10/17/14 10/16/14 19:00 History Quetiapine Fumarate [SEROquel XR] 200 mg PO DAILY 05/26/13 10/17/14 10/16/14 History rOPINIRole [Requip] 1 mg PO QHS 05/26/13 10/17/14 10/16/14 19:00 History QUEtiapine [SEROquel] 200 mg PO QHS 05/28/13 10/17/14 10/16/14 19:00 History Famotidine [Pepcid] 10 mg PO BID #60 tablet 06/02/13 10/17/14 10/16/14 Rx levoFLOXacin [Levaquin] 750 mg PO QDAY #7 tablet 06/02/13 10/17/14 10/16/14 Rx metroNIDAZOLE [Flagyl] 500 mg PO Q8HR #30 tablet 06/02/13 10/17/14 10/16/14 Rx Hydromorphone HCl [Dilaudid] 4 mg PO 10/17/14 10/17/14 10/16/14 History Oxycodone HCl/Acetaminophen 1 each PO Q6HR PRN 10/17/14 10/17/14 10/16/14 History [Percocet 10-325 mg] Oxycodone HCl/Acetaminophen 1 each PO Q6HR PRN #30 tablet 10/18/14 Unknown Rx [Percocet 10-325 mg] Active Medications: Generic Name Dose Route Start Last Admin Trade Name Freq PRN Reason Stop Dose Admin Acetaminophen 650 mg 11/11/20 22:11 Acetaminophen 325 Mg Tab PO Q4H PRN Pain MILD(1-3)/Fever >100.5/ERAZO Albuterol 2.5 mg 11/13/20 07:40 Albuterol 2.5 Mg/3 Ml Nebu IH Q4HRT PRN Shortness Of Breath Albuterol/Ipratropium 1 ampul 11/13/20 08:00 11/17/20 16:01 Ipratropium/Albuterol Sulfate 3 Ml Ampul.Neb IH 1 ampul QIDRT CARLOS Administration Lipase/Protease/Amylase 1 each 11/13/20 17:32 Lipase 10,500/Protease 25,000/Amylase 43,750 (Units) Dr Weiss FEEDTUBE PRN PRN For Clogged Feeding Tube Ascorbic Acid 500 mg 11/13/20 22:00 11/17/20 11:32 Ascorbic Acid 500 Mg Tab PO Not Given BID CARLOS Baclofen 10 mg 11/11/20 22:09 Baclofen 10 Mg Tab PO TID PRN MUSCLE SPASMS & PAIN Dexamethasone 6 mg 11/13/20 10:00 11/17/20 09:54 Dexamethasone 4 Mg/Ml Vial IV 11/22/20 10:01 6 mg Q24HR CARLOS Administration Dextrose 50 ml 11/13/20 16:43 11/14/20 01:12 Dextrose 50% In Water (25gm) 50 Ml Syringe IV 50 ml Q30MIN PRN Administration Hypoglycemia Protocol Fentanyl 50 mcg 11/13/20 05:33 Fentanyl 100 Mcg/2 Ml Inj IV Q10MIN PRN ANALGESIA Heparin Sodium (Porcine) 3,000 unit 11/13/20 05:04 Heparin 10,000 Units/10 Ml Vial 40 unit/kg (3000 unit) IV Q6H PRN Anti-Xa Assay < 0.1 units/ml Hydromorphone HCl 0.5 mg 11/11/20 22:11 Hydromorphone 1 Mg/1 Ml Inj IV Q3H PRN Pain , Severe (7-10) Hydrophilic Ointment 1 applic 11/13/20 05:33 Lip Therapy Vaseline TP Q2HR PRN Dry Lips Heparin Sodium/Sodium Chloride 25,000 unit in 500 mls @ 23 mls/hr 11/13/20 06:00 11/17/20 05:03 Heparin/ 0.45% Nacl-25,000 Unit/500 Ml IV 750 units/hr TITR CARLOS 15 mls/hr Administration Protocol 1,150 UNITS/HR Fentanyl Citrate 2,000 mcg in 100 mls @ 3.81 mls/hr 11/13/20 06:00 11/17/20 02:20 Fentanyl Drip Premix IV 1 mcg/kg/hr TITR CARLOS 3.81 mls/hr Administration Protocol 1 MCG/KG/HR NORepinephrine/NS 8 MG-250 ML 8 mg in 250 mls @ 3.75 mls/hr 11/13/20 15:00 11/16/20 16:48 Norepinephrine/Ns 8 Mg-250 Ml (Double Conc) IV 4 mcg/min TITRATE CARLOS 7.5 mls/hr Titration Protocol 2 MCG/MIN Sodium Bicarbonate 150 meq/ 1,150 mls @ 125 mls/hr 11/16/20 06:00 11/17/20 12:14 Dextrose IV 125 mls/hr DIRECT CARLOS Administration Insulin Human Regular 0 units 11/13/20 17:00 11/17/20 11:53 Insulin Regular, Human 100 Units/1 Ml SUB-Q Not Given Q6H [facility] Protocol Metoclopramide HCl 5 mg 11/15/20 19:00 11/17/20 14:12 Metoclopramide 10 Mg/2 Ml Inj IV 5 mg Q6H CARLOS Administration Multi-Ingred Cream/Lotion/Oil/Oint 1 applic 11/13/20 05:33 Mineral Oil/Petrolatum, White Ophth Oint 3.5 Gm OU Q4HR PRN Dry Eye(s) Ondansetron HCl 4 mg 11/11/20 22:11 Ondansetron 4 Mg/2 Ml Inj IV Q3H PRN Nausea And Vomiting Oxycodone/Acetaminophen 1 tab 11/11/20 22:11 Oxycodone /Acetaminophen 5-325mg Tab PO Q6H PRN Pain, Moderate (4-6) Pantoprazole Sodium 40 mg 11/13/20 14:00 11/17/20 09:54 Pantoprazole 40 Mg Inj IV 40 mg BID CARLOS Administration Paroxetine HCl 10 mg 11/12/20 10:00 11/17/20 11:32 Paroxetine 10 Mg Tab PO Not Given DAILY CARLOS Ropinirole HCl 1 mg 11/12/20 22:00 11/16/20 21:42 Ropinirole 1 Mg Tab PO Not Given QHS CARLOS Senna/Docusate Sodium 1 tab 11/14/20 22:00 11/17/20 11:32 Sennosides/Docusate Sodium 8.6/50 Mg Tab FEEDTUBE Not Given BID CARLOS Simple Syrup 15 ml 11/13/20 17:32 Simple Syrup 15 Ml FEEDTUBE PRN PRN Hypoglycemia Simple Syrup 30 ml 11/13/20 17:32 Simple Syrup 15 Ml FEEDTUBE PRN PRN Hypoglycemia Sodium Bicarbonate 325 mg 11/13/20 17:32 Sodium Bicarbonate 325 Mg Tab FEEDTUBE PRN PRN For Clogged Feeding Tube Sodium Chloride 10 ml 11/12/20 10:00 11/17/20 12:15 Sodium Chloride 0.9% 10 Ml Flush Syringe IV 10 ml BID CARLOS Administration Sodium Chloride 10 ml 11/11/20 22:11 Sodium Chloride 0.9% 10 Ml Flush Syringe IV PRN PRN LINE FLUSH Zinc Sulfate 220 mg 11/13/20 22:00 11/17/20 11:32 Zinc Sulfate 220 Mg Cap PO Not Given BID CARLOS HEART Score - HEART Score Age: > 65 Risk factors: 1-2 risk factors Troponin: Troponin T < 0.010 ng/mL (0.00-0.029) 11/11/20 13:39 - Critical Actions Critical Actions: 0-3 pts:0.9-1.7%risk of adverse cardiac event.Candidate for discharge
--- NOTE | 2020-11-17 18:13 | Progress Note ---
Assessment and Plan Acute hypoxemic respiratory failure on MVS COVID-19 infection Pneumonia Severe Sepsis with shock Acute toxic metabolic encephalopathy Inadvertently placed left carotid line Acute kidney injury Nephrolithiasis Leukocytosis Metabolic acidosis Mild hypernatremia -CXR reviewed- the LIJ CVL is not in the venous system. -Needs the line removed- Vascular following and managing -Continue to titrate supplemental oxygen to keep SpO2 89-90% - continue Daily SAT and SBT assessment as tolerated - VAP bundle addressed - continue lung protective strategies, monitor airway pressures closely - continue bronchodilators with pulmonary hygiene per RT -Daily assessment for readiness to wean - continue accuchecks with glycemic control per SSI (While critically ill target blood glucose of 140-180 mg/dL; avoid hypoglycemia) - sedation prn for target RASS -4 and for ventilator synchrony - avoid nephrotoxins, renally dose all medications - continue to avoid benzodiazepines, reduce the possibility of delirium - Antibiotics per ID recommendations - continue enteral nutritional support at goal rate as tolerated -Stress ulcer prophylaxis -ROM exercises - continue mobility protocols for pressure ulcer prophylaxis - Monitor hemodynamics closely - continue other care per attending / other consultants COVID SPECIFIC INTERVENTIONS -Did not recieve Remdesivir at presentation secondary to renal failure - continue systemic steroids for severe COVID-19 infection -Dexamethasone 6 mg IV/PO daily for 10 days - s/p Actemra - zinc and vitamin C supplementation - Monitor inflammatory markers per facility protocol - ferritin, Ddimer, CRP - therapeutic anticoagulation per system Protocol based on d-dimer and clinical considerations (re: Carotid artery thrombus) On heparin infusion, trend platelet counts and monitor for bleeding - Continue contact and airborne isolation CONDITION: CRITICAL PROGNOSIS: GUARDED CODE STATUS: FULL CODE The high probability of a clinically significant, sudden or life-threatening deterioration of the [respiratory, cardiovascular, renal & neurologic] system(s) required my full and direct attention, intervention and personal management. The aggregate critical care time was [35] minutes without overlap. Time includes spent on; [x] Data Review and interpretation [x] Patient assessment and monitoring of vital signs [x] Documentation [x] Medication orders and management Subjective Date of service: 11/17/20 Principal diagnosis: Ac hypoxemic resp failure; COVID-19 infxn; Pneumonia; KATLYN; AMS; Sepsis Interval history: Patient is seen today for: Acute hypoxemic respiratory failure; COVID-19 infxn; Pneumonia; Acute toxic metabolic encephalopathy; Carotid Artery thrombus; KATLYN; Leukocytosis Seen and examined at bedside; 24hour events reviewed; nursing and respiratory care staff consulted; no adverse overnight events reported to me; resting in bed; remains on MVS, on going need for vasopressor support, on heparin infusion PEEP +10/FIO2 90% P/F 130. Sedated No fevers overnight but was hypothermic, no vomiting Objective Vital Signs - 12hr 11/17/20 11/17/20 11/17/20 06:20 06:30 06:40 Temperature Pulse Rate 80 77 76 Pulse Rate [ Anterior Bilateral Throughout] Respiratory 19 20 20 Rate Respiratory Rate [Anterior Bilateral Throughout] Blood Pressure 129/67 117/59 115/58 O2 Sat by Pulse 99 98 98 Oximetry 11/17/20 11/17/20 11/17/20 06:50 07:00 07:10 Temperature Pulse Rate 76 75 77 Pulse Rate [ Anterior Bilateral Throughout] Respiratory 20 20 20 Rate Respiratory Rate [Anterior Bilateral Throughout] Blood Pressure 115/61 113/56 119/59 O2 Sat by Pulse 98 98 99 Oximetry 11/17/20 11/17/20 11/17/20 07:20 07:30 07:36 Temperature 97.5 F L Pulse Rate 84 86 Pulse Rate [ Anterior Bilateral Throughout] Respiratory 17 18 Rate Respiratory Rate [Anterior Bilateral Throughout] Blood Pressure 151/69 143/67 O2 Sat by Pulse 99 99 Oximetry 11/17/20 11/17/20 11/17/20 07:40 07:50 08:00 Temperature Pulse Rate 82 83 87 Pulse Rate [ Anterior Bilateral Throughout] Respiratory 21 18 20 Rate Respiratory Rate [Anterior Bilateral Throughout] Blood Pressure 126/63 126/62 137/57 O2 Sat by Pulse 98 98 96 Oximetry 11/17/20 11/17/20 11/17/20 08:10 08:20 08:30 Temperature Pulse Rate 79 79 79 Pulse Rate [ Anterior Bilateral Throughout] Respiratory 21 20 20 Rate Respiratory Rate [Anterior Bilateral Throughout] Blood Pressure 118/58 114/57 119/60 O2 Sat by Pulse 98 98 98 Oximetry 11/17/20 11/17/20 11/17/20 08:40 08:50 09:00 Temperature Pulse Rate 79 77 84 Pulse Rate [ Anterior Bilateral Throughout] Respiratory 20 20 19 Rate Respiratory Rate [Anterior Bilateral Throughout] Blood Pressure 116/57 112/57 102/78 O2 Sat by Pulse 98 98 100 Oximetry 0811/17/20 11/17/20 09:10 09:20 09:29 Temperature Pulse Rate 84 80 Pulse Rate [ 89 Anterior Bilateral Throughout] Respiratory 17 20 Rate Respiratory 20 Rate [Anterior Bilateral Throughout] Blood Pressure 129/64 116/58 O2 Sat by Pulse 99 98 Oximetry 11/17/20 11/17/20 11/17/20 09:30 09:40 09:50 Temperature Pulse Rate 83 91 H 89 Pulse Rate [ Anterior Bilateral Throughout] Respiratory 18 17 22 Rate Respiratory Rate [Anterior Bilateral Throughout] Blood Pressure 144/70 137/57 130/78 O2 Sat by Pulse 100 99 99 Oximetry 11/17/20 11/17/20 11/17/20 10:00 10:10 10:20 Temperature Pulse Rate 85 87 82 Pulse Rate [ Anterior Bilateral Throughout] Respiratory 18 20 20 Rate Respiratory Rate [Anterior Bilateral Throughout] Blood Pressure 125/69 119/56 109/53 O2 Sat by Pulse 100 100 98 Oximetry 11/17/20 11/17/20 11/17/20 10:30 10:40 10:50 Temperature Pulse Rate 83 80 86 Pulse Rate [ Anterior Bilateral Throughout] Respiratory 20 20 19 Rate Respiratory Rate [Anterior Bilateral Throughout] Blood Pressure 115/55 107/48 128/56 O2 Sat by Pulse 99 99 100 Oximetry 11/17/20 11/17/20 11/17/20 11:00 11:10 11:20 Temperature Pulse Rate 79 78 77 Pulse Rate [ Anterior Bilateral Throughout] Respiratory 20 20 20 Rate Respiratory Rate [Anterior Bilateral Throughout] Blood Pressure 104/49 108/52 109/49 O2 Sat by Pulse 99 99 100 Oximetry 11/17/20 11/17/20 11/17/20 11:30 11:40 11:46 Temperature 97.7 F Pulse Rate 77 76 Pulse Rate [ Anterior Bilateral Throughout] Respiratory 20 20 Rate Respiratory Rate [Anterior Bilateral Throughout] Blood Pressure 108/51 113/51 O2 Sat by Pulse 100 100 Oximetry 11/17/20 11/17/20 11/17/20 11:50 12:00 12:05 Temperature Pulse Rate 75 75 76 Pulse Rate [ 78 Anterior Bilateral Throughout] Respiratory 20 20 Rate Respiratory 20 Rate [Anterior Bilateral Throughout] Blood Pressure 105/51 113/53 117/51 O2 Sat by Pulse 99 100 100 Oximetry 11/17/20 11/17/20 11/17/20 12:10 12:20 12:30 Temperature Pulse Rate 76 76 76 Pulse Rate [ Anterior Bilateral Throughout] Respiratory 20 20 19 Rate Respiratory Rate [Anterior Bilateral Throughout] Blood Pressure 108/52 116/52 114/51 O2 Sat by Pulse 100 100 100 Oximetry 11/17/20 11/17/20 11/17/20 12:40 12:50 13:00 Temperature Pulse Rate 78 77 74 Pulse Rate [ Anterior Bilateral Throughout] Respiratory 20 21 19 Rate Respiratory Rate [Anterior Bilateral Throughout] Blood Pressure 112/50 114/49 109/50 O2 Sat by Pulse 100 100 100 Oximetry 11/17/20 11/17/20 11/17/20 13:10 13:20 13:30 Temperature Pulse Rate 74 74 75 Pulse Rate [ Anterior Bilateral Throughout] Respiratory 20 20 22 Rate Respiratory Rate [Anterior Bilateral Throughout] Blood Pressure 111/49 120/52 115/50 O2 Sat by Pulse 100 100 100 Oximetry 11/17/20 11/17/20 11/17/20 13:40 13:50 14:00 Temperature Pulse Rate 81 76 77 Pulse Rate [ Anterior Bilateral Throughout] Respiratory 17 20 20 Rate Respiratory Rate [Anterior Bilateral Throughout] Blood Pressure 113/50 146/53 111/50 O2 Sat by Pulse 100 100 99 Oximetry 11/17/20 11/17/20 11/17/20 14:10 14:20 14:30 Temperature Pulse Rate 75 76 76 Pulse Rate [ Anterior Bilateral Throughout] Respiratory 20 19 21 Rate Respiratory Rate [Anterior Bilateral Throughout] Blood Pressure 114/46 121/50 114/46 O2 Sat by Pulse 100 100 100 Oximetry 11/17/20 11/17/20 16:00 16:05 Temperature 97.3 F L Pulse Rate 83 Pulse Rate [ 85 Anterior Bilateral Throughout] Respiratory Rate Respiratory 20 Rate [Anterior Bilateral Throughout] Blood Pressure 158/80 O2 Sat by Pulse 100 Oximetry Constitutional: no acute distress, other (elderly obese female with mildly increased respiratory effort at rest on MVS) Eyes: non-icteric ENT: oropharynx moist, other (ETT 24 cm NYA) Neck: supple, no lymphadenopathy, no JVD Effort: mildly labored Ascultation: Bilateral: diminished breath sounds, rhonchi Percussion: Bilateral: not dull Cardiovascular: regular rate and rhythm, other (S1,S2) Gastrointestinal: normoactive bowel sounds, soft, non-tender, non-distended (protuberant) Integumentary: normal Extremities: no cyanosis, no edema, pink and warm, pulses normal, other (Right femoral CVL) Neurologic: pupils equal and round, unable to assess Psychiatric: other (unable to assess re: AMS) CBC and BMP: 11/23/20 04:00 11/23/20 04:00 ABG, PT/INR, D-dimer: ABG ABG pH 7.498 (7.320-7.450) H 11/17/20 03:14 POC ABG pCO2 27.2 mmHg (32.0-48.0) L 11/17/20 03:14 POC ABG pO2 110.6 mmHg (83-108) H 11/17/20 03:14 POC ABG HCO3 20.6 11/17/20 03:14 ABG O2 Saturation 98.5 (0-100) 11/17/20 03:14 PT/INR, D-dimer PT 16.0 Sec. (12.2-14.9) H 11/13/20 09:51 INR 1.23 (0.87-1.13) H 11/13/20 09:51 D-Dimer 1401.08 ng/mlDDU (0-234) H 11/17/20 09:59 Abnormal lab findings: Abnormal Labs 11/11/20 11/11/20 11/11/20 13:39 13:39 16:59 WBC 19.5 H RBC 5.93 H Hgb 17.0 H Hct 50.6 H RDW Plt Count 449 H Lymph % (Auto) 12.0 L [place] % (Auto) 7.7 H Lymph # (Auto) [place] # (Auto) 1.5 H Seg Neutrophils % 80.0 H Seg Neutrophils # 15.6 H PT INR D-Dimer 1525.92 H Heparin Anti-Xa Level ABG pH POC ABG pCO2 POC ABG pO2 ABG Hemoglobin ABG Oxyhemoglobin ABG Sodium ABG Potassium ABG Chloride ABG Glucose Carboxyhemoglobin Sodium Potassium 3.5 L Chloride 97.3 L Carbon Dioxide BUN 30 H Creatinine 0.5 L Glucose 128 H POC Glucose Hemoglobin A1c Lactic Acid Calcium Ferritin AST ALT Lactate Dehydrogenase C-Reactive Protein Total Protein Albumin 3.8 L Arterial Blood Glucose Arterial Blood Ionized Calcium Urine WBC (Auto) U Epithel Cells (Auto) Urine Creatinine Coronavirus (PCR) 11/11/20 11/11/20 11/11/20 16:59 17:12 Unknown WBC RBC Hgb Hct RDW Plt Count Lymph % (Auto) [place] % (Auto) Lymph # (Auto) [place] # (Auto) Seg Neutrophils % Seg Neutrophils # PT INR D-Dimer Heparin Anti-Xa Level ABG pH 7.501 H POC ABG pCO2 POC ABG pO2 55.0 L ABG Hemoglobin ABG Oxyhemoglobin 89.5 L ABG Sodium ABG Potassium 3.2 L ABG Chloride ABG Glucose 131 H Carboxyhemoglobin Sodium Potassium Chloride Carbon Dioxide BUN Creatinine Glucose 117 H POC Glucose Hemoglobin A1c Lactic Acid Calcium Ferritin AST ALT Lactate Dehydrogenase 204 H C-Reactive Protein Total Protein Albumin Arterial Blood Glucose 131 H Arterial Blood Ionized Calcium Urine WBC (Auto) U Epithel Cells (Auto) Urine Creatinine Coronavirus (PCR) Positive A 11/12/20 11/12/20 11/12/20 05:07 05:07 05:07 WBC 16.7 H RBC 5.74 H Hgb 16.6 H Hct 50.3 H RDW Plt Count 450 H Lymph % (Auto) 12.1 L [place] % (Auto) 7.5 H Lymph # (Auto) [place] # (Auto) 1.3 H Seg Neutrophils % 77.9 H Seg Neutrophils # 13.0 H PT INR D-Dimer Heparin Anti-Xa Level ABG pH POC ABG pCO2 POC ABG pO2 ABG Hemoglobin ABG Oxyhemoglobin ABG Sodium ABG Potassium ABG Chloride ABG Glucose Carboxyhemoglobin Sodium 147 H Potassium Chloride Carbon Dioxide 35 H D BUN 34 H Creatinine Glucose 117 H POC Glucose Hemoglobin A1c 6.6 H Lactic Acid Calcium 11.1 H Ferritin AST ALT Lactate Dehydrogenase C-Reactive Protein Total Protein Albumin Arterial Blood Glucose Arterial Blood Ionized Calcium Urine WBC (Auto) U Epithel Cells (Auto) Urine Creatinine Coronavirus (PCR) 11/12/20 11/13/20 11/13/20 23:58 01:36 04:00 WBC RBC Hgb Hct RDW Plt Count Lymph % (Auto) [place] % (Auto) Lymph # (Auto) [place] # (Auto) Seg Neutrophils % Seg Neutrophils # PT INR D-Dimer Heparin Anti-Xa Level ABG pH POC ABG pCO2 POC ABG pO2 ABG Hemoglobin ABG Oxyhemoglobin ABG Sodium 147.3 H ABG Potassium 3.2 L ABG Chloride 109.0 H ABG Glucose 118 H Carboxyhemoglobin 0.3 L Sodium Potassium 3.1 L Chloride Carbon Dioxide BUN 64 H Creatinine 2.2 H D Glucose 105 H POC Glucose 181 H Hemoglobin A1c Lactic Acid Calcium 8.3 L D Ferritin AST 366 H ALT 316 H Lactate Dehydrogenase C-Reactive Protein Total Protein 5.4 L D Albumin 2.5 L Arterial Blood Glucose 118 H Arterial Blood Ionized Calcium Urine WBC (Auto) U Epithel Cells (Auto) Urine Creatinine Coronavirus (PCR) 11/13/20 11/13/20 11/13/20 05:23 08:22 09:51 WBC 15.9 H RBC Hgb Hct 44.4 H RDW Plt Count Lymph % (Auto) 5.7 L [place] % (Auto) 9.0 H Lymph # (Auto) 0.9 L [place] # (Auto) 1.4 H Seg Neutrophils % 85.3 H Seg Neutrophils # 13.6 H PT 16.0 H INR 1.23 H D-Dimer Heparin Anti-Xa Level ABG pH 7.243 L POC ABG pCO2 POC ABG pO2 82.0 L ABG Hemoglobin ABG Oxyhemoglobin 93.5 L ABG Sodium 146.6 H ABG Potassium 2.8 L ABG Chloride 114.0 H ABG Glucose 113 H Carboxyhemoglobin 0.4 L Sodium Potassium Chloride Carbon Dioxide BUN Creatinine Glucose POC Glucose Hemoglobin A1c Lactic Acid Calcium Ferritin AST ALT Lactate Dehydrogenase C-Reactive Protein Total Protein Albumin Arterial Blood Glucose 113 H Arterial Blood Ionized Calcium Urine WBC (Auto) U Epithel Cells (Auto) Urine Creatinine Coronavirus (PCR) 11/13/20 11/13/20 11/13/20 09:51 09:51 09:51 WBC RBC Hgb Hct RDW Plt Count Lymph % (Auto) [place] % (Auto) Lymph # (Auto) [place] # (Auto) Seg Neutrophils % Seg Neutrophils # PT INR D-Dimer 5682.19 H Heparin Anti-Xa Level ABG pH POC ABG pCO2 POC ABG pO2 ABG Hemoglobin ABG Oxyhemoglobin ABG Sodium ABG Potassium ABG Chloride ABG Glucose Carboxyhemoglobin Sodium Potassium Chloride Carbon Dioxide BUN Creatinine Glucose 104 H POC Glucose Hemoglobin A1c Lactic Acid Calcium Ferritin 1003.0 H AST ALT Lactate Dehydrogenase 1022 H C-Reactive Protein 5.50 H Total Protein Albumin Arterial Blood Glucose Arterial Blood Ionized Calcium Urine WBC (Auto) U Epithel Cells (Auto) Urine Creatinine Coronavirus (PCR) 11/13/20 11/14/20 11/14/20 21:50 00:50 04:25 WBC RBC Hgb Hct RDW Plt Count Lymph % (Auto) [place] % (Auto) Lymph # (Auto) [place] # (Auto) Seg Neutrophils % Seg Neutrophils # PT INR D-Dimer Heparin Anti-Xa Level 0.91 H ABG pH 7.215 L POC ABG pCO2 POC ABG pO2 ABG Hemoglobin ABG Oxyhemoglobin ABG Sodium 147.3 H ABG Potassium ABG Chloride 119.0 H ABG Glucose 156 H Carboxyhemoglobin Sodium Potassium Chloride Carbon Dioxide BUN Creatinine Glucose POC Glucose 59 L Hemoglobin A1c Lactic Acid Calcium Ferritin AST ALT Lactate Dehydrogenase C-Reactive Protein Total Protein Albumin Arterial Blood Glucose 156 H Arterial Blood Ionized Calcium 4.3 L Urine WBC (Auto) U Epithel Cells (Auto) Urine Creatinine Coronavirus (PCR) 11/14/20 11/14/20 11/14/20 04:35 04:35 06:15 WBC RBC Hgb Hct 43.9 H RDW 15.3 H Plt Count Lymph % (Auto) [place] % (Auto) Lymph # (Auto) [place] # (Auto) Seg Neutrophils % Seg Neutrophils # PT INR D-Dimer Heparin Anti-Xa Level ABG pH POC ABG pCO2 POC ABG pO2 ABG Hemoglobin ABG Oxyhemoglobin ABG Sodium ABG Potassium ABG Chloride ABG Glucose Carboxyhemoglobin Sodium 151 H D Potassium Chloride 116.8 H Carbon Dioxide 18 L BUN 64 H Creatinine 2.1 H Glucose 148 H POC Glucose Hemoglobin A1c Lactic Acid Calcium 7.3 L Ferritin AST ALT Lactate Dehydrogenase C-Reactive Protein 38.00 H Total Protein Albumin Arterial Blood Glucose Arterial Blood Ionized Calcium Urine WBC (Auto) > 182.0 H U Epithel Cells (Auto) 24.0 H Urine Creatinine Coronavirus (PCR) 11/14/20 11/14/20 11/14/20 06:15 06:15 12:01 WBC RBC Hgb Hct RDW Plt Count Lymph % (Auto) [place] % (Auto) Lymph # (Auto) [place] # (Auto) Seg Neutrophils % Seg Neutrophils # PT INR D-Dimer Heparin Anti-Xa Level 1.16 H ABG pH POC ABG pCO2 POC ABG pO2 ABG Hemoglobin ABG Oxyhemoglobin ABG Sodium ABG Potassium ABG Chloride ABG Glucose Carboxyhemoglobin Sodium Potassium Chloride Carbon Dioxide BUN Creatinine Glucose POC Glucose 107 H Hemoglobin A1c Lactic Acid Calcium Ferritin AST ALT Lactate Dehydrogenase C-Reactive Protein Total Protein Albumin Arterial Blood Glucose Arterial Blood Ionized Calcium Urine WBC (Auto) U Epithel Cells (Auto) Urine Creatinine 80.2 H Coronavirus (PCR) 11/14/20 11/14/20 11/14/20 17:18 23:00 23:25 WBC RBC Hgb Hct RDW Plt Count Lymph % (Auto) [place] % (Auto) Lymph # (Auto) [place] # (Auto) Seg Neutrophils % Seg Neutrophils # PT INR D-Dimer Heparin Anti-Xa Level 0.96 H ABG pH POC ABG pCO2 POC ABG pO2 ABG Hemoglobin ABG Oxyhemoglobin ABG Sodium ABG Potassium ABG Chloride ABG Glucose Carboxyhemoglobin Sodium Potassium Chloride Carbon Dioxide BUN Creatinine Glucose POC Glucose 173 H 158 H Hemoglobin A1c Lactic Acid Calcium Ferritin AST ALT Lactate Dehydrogenase C-Reactive Protein Total Protein Albumin Arterial Blood Glucose Arterial Blood Ionized Calcium Urine WBC (Auto) U Epithel Cells (Auto) Urine Creatinine Coronavirus (PCR) 11/15/20 11/15/20 11/15/20 01:45 04:57 04:57 WBC RBC Hgb Hct RDW 16.2 H Plt Count Lymph % (Auto) [place] % (Auto) Lymph # (Auto) [place] # (Auto) Seg Neutrophils % Seg Neutrophils # PT INR D-Dimer Heparin Anti-Xa Level ABG pH 7.246 L POC ABG pCO2 28.4 L POC ABG pO2 ABG Hemoglobin ABG Oxyhemoglobin ABG Sodium ABG Potassium ABG Chloride 116.0 H ABG Glucose 164 H Carboxyhemoglobin Sodium 147 H Potassium Chloride 114.0 H Carbon Dioxide 16 L BUN 68 H Creatinine 2.4 H Glucose 148 H POC Glucose Hemoglobin A1c Lactic Acid Calcium 7.3 L Ferritin AST 395 H ALT 396 H Lactate Dehydrogenase 596 H C-Reactive Protein 34.50 H Total Protein 5.1 L Albumin 2.1 L Arterial Blood Glucose 164 H Arterial Blood Ionized Calcium 4.3 L Urine WBC (Auto) U Epithel Cells (Auto) Urine Creatinine Coronavirus (PCR) 11/15/20 11/15/20 11/15/20 04:57 04:57 05:20 WBC RBC Hgb Hct RDW Plt Count Lymph % (Auto) [place] % (Auto) Lymph # (Auto) [place] # (Auto) Seg Neutrophils % Seg Neutrophils # PT INR D-Dimer 3313.42 H Heparin Anti-Xa Level 0.81 H ABG pH POC ABG pCO2 POC ABG pO2 ABG Hemoglobin ABG Oxyhemoglobin ABG Sodium ABG Potassium ABG Chloride ABG Glucose Carboxyhemoglobin Sodium Potassium Chloride Carbon Dioxide BUN Creatinine Glucose POC Glucose 124 H Hemoglobin A1c Lactic Acid 3.00 H* Calcium Ferritin AST ALT Lactate Dehydrogenase C-Reactive Protein Total Protein Albumin Arterial Blood Glucose Arterial Blood Ionized Calcium Urine WBC (Auto) U Epithel Cells (Auto) Urine Creatinine Coronavirus (PCR) 11/15/20 11/15/20 11/15/20 08:26 08:26 11:34 WBC RBC Hgb Hct RDW Plt Count Lymph % (Auto) [place] % (Auto) Lymph # (Auto) [place] # (Auto) Seg Neutrophils % Seg Neutrophils # PT INR D-Dimer Heparin Anti-Xa Level ABG pH POC ABG pCO2 POC ABG pO2 ABG Hemoglobin ABG Oxyhemoglobin ABG Sodium ABG Potassium ABG Chloride ABG Glucose Carboxyhemoglobin Sodium Potassium Chloride Carbon Dioxide BUN Creatinine Glucose POC Glucose 113 H Hemoglobin A1c Lactic Acid 2.60 H* Calcium Ferritin 452.8 H AST ALT Lactate Dehydrogenase C-Reactive Protein Total Protein Albumin Arterial Blood Glucose Arterial Blood Ionized Calcium Urine WBC (Auto) U Epithel Cells (Auto) Urine Creatinine Coronavirus (PCR) 11/15/20 11/15/20 11/16/20 16:43 23:16 03:39 WBC RBC Hgb Hct RDW Plt Count Lymph % (Auto) [place] % (Auto) Lymph # (Auto) [place] # (Auto) Seg Neutrophils % Seg Neutrophils # PT INR D-Dimer Heparin Anti-Xa Level ABG pH 7.261 L POC ABG pCO2 31.2 L POC ABG pO2 117.3 H ABG Hemoglobin ABG Oxyhemoglobin ABG Sodium 135.8 L ABG Potassium ABG Chloride 112.0 H ABG Glucose 148 H Carboxyhemoglobin 0.4 L Sodium Potassium Chloride Carbon Dioxide BUN Creatinine Glucose POC Glucose 107 H 113 H Hemoglobin A1c Lactic Acid Calcium Ferritin AST ALT Lactate Dehydrogenase C-Reactive Protein Total Protein Albumin Arterial Blood Glucose 148 H Arterial Blood Ionized Calcium 4.1 L Urine WBC (Auto) U Epithel Cells (Auto) Urine Creatinine Coronavirus (PCR) 11/16/20 11/16/20 11/16/20 04:51 11:28 17:15 WBC RBC Hgb Hct RDW Plt Count Lymph % (Auto) [place] % (Auto) Lymph # (Auto) [place] # (Auto) Seg Neutrophils % Seg Neutrophils # PT INR D-Dimer Heparin Anti-Xa Level ABG pH POC ABG pCO2 POC ABG pO2 ABG Hemoglobin ABG Oxyhemoglobin ABG Sodium ABG Potassium ABG Chloride ABG Glucose Carboxyhemoglobin Sodium Potassium Chloride Carbon Dioxide BUN Creatinine Glucose POC Glucose 119 H 144 H 139 H Hemoglobin A1c Lactic Acid Calcium Ferritin AST ALT Lactate Dehydrogenase C-Reactive Protein Total Protein Albumin Arterial Blood Glucose Arterial Blood Ionized Calcium Urine WBC (Auto) U Epithel Cells (Auto) Urine Creatinine Coronavirus (PCR) 11/16/20 11/16/20 11/16/20 23:50 Unknown Unknown WBC RBC Hgb Hct RDW Plt Count Lymph % (Auto) [place] % (Auto) Lymph # (Auto) [place] # (Auto) Seg Neutrophils % Seg Neutrophils # PT INR D-Dimer Heparin Anti-Xa Level ABG pH POC ABG pCO2 POC ABG pO2 ABG Hemoglobin ABG Oxyhemoglobin ABG Sodium ABG Potassium ABG Chloride ABG Glucose Carboxyhemoglobin Sodium Potassium 3.5 L Chloride 109.7 H Carbon Dioxide 15 L BUN 65 H Creatinine 2.2 H Glucose 174 H POC Glucose 132 H Hemoglobin A1c Lactic Acid 2.10 H* Calcium 6.1 L D Ferritin AST 171 H ALT 268 H Lactate Dehydrogenase C-Reactive Protein Total Protein 4.3 L Albumin 1.9 L Arterial Blood Glucose Arterial Blood Ionized Calcium Urine WBC (Auto) U Epithel Cells (Auto) Urine Creatinine Coronavirus (PCR) 11/17/20 11/17/20 11/17/20 03:14 04:00 05:09 WBC RBC Hgb Hct RDW Plt Count 123 L Lymph % (Auto) [place] % (Auto) Lymph # (Auto) [place] # (Auto) Seg Neutrophils % Seg Neutrophils # PT INR D-Dimer Heparin Anti-Xa Level ABG pH 7.498 H POC ABG pCO2 27.2 L POC ABG pO2 110.6 H ABG Hemoglobin 11.6 L ABG Oxyhemoglobin ABG Sodium 135.4 L ABG Potassium ABG Chloride ABG Glucose 131 H Carboxyhemoglobin Sodium Potassium Chloride Carbon Dioxide BUN Creatinine Glucose POC Glucose 119 H Hemoglobin A1c Lactic Acid Calcium Ferritin AST ALT Lactate Dehydrogenase C-Reactive Protein Total Protein Albumin Arterial Blood Glucose 131 H Arterial Blood Ionized Calcium 3.7 L Urine WBC (Auto) U Epithel Cells (Auto) Urine Creatinine Coronavirus (PCR) 11/17/20 11/17/2011/17/21 09:59 09:59 09:59 WBC RBC Hgb Hct RDW Plt Count Lymph % (Auto) [place] % (Auto) Lymph # (Auto) [place] # (Auto) Seg Neutrophils % Seg Neutrophils # PT INR D-Dimer 1401.08 H Heparin Anti-Xa Level ABG pH POC ABG pCO2 POC ABG pO2 ABG Hemoglobin ABG Oxyhemoglobin ABG Sodium ABG Potassium ABG Chloride ABG Glucose Carboxyhemoglobin Sodium Potassium Chloride Carbon Dioxide BUN Creatinine Glucose 127 H POC Glucose Hemoglobin A1c Lactic Acid Calcium Ferritin 224.1 H AST ALT Lactate Dehydrogenase 515 H C-Reactive Protein 4.80 H Total Protein Albumin Arterial Blood Glucose Arterial Blood Ionized Calcium Urine WBC (Auto) U Epithel Cells (Auto) Urine Creatinine Coronavirus (PCR) 11/17/20 11/17/20 11/17/20 11:28 16:26 18:00 WBC RBC Hgb Hct RDW Plt Count Lymph % (Auto) [place] % (Auto) Lymph # (Auto) [place] # (Auto) Seg Neutrophils % Seg Neutrophils # PT INR D-Dimer Heparin Anti-Xa Level 0.10 L ABG pH POC ABG pCO2 POC ABG pO2 ABG Hemoglobin ABG Oxyhemoglobin ABG Sodium ABG Potassium ABG Chloride ABG Glucose Carboxyhemoglobin Sodium Potassium Chloride Carbon Dioxide BUN Creatinine Glucose POC Glucose 114 H 121 H Hemoglobin A1c Lactic Acid Calcium Ferritin AST ALT Lactate Dehydrogenase C-Reactive Protein Total Protein Albumin Arterial Blood Glucose Arterial Blood Ionized Calcium Urine WBC (Auto) U Epithel Cells (Auto) Urine Creatinine Coronavirus (PCR) 11/17/20 Unknown WBC RBC Hgb Hct RDW Plt Count Lymph % (Auto) [place] % (Auto) Lymph # (Auto) [place] # (Auto) Seg Neutrophils % Seg Neutrophils # PT INR D-Dimer Heparin Anti-Xa Level ABG pH POC ABG pCO2 POC ABG pO2 ABG Hemoglobin ABG Oxyhemoglobin ABG Sodium ABG Potassium ABG Chloride ABG Glucose Carboxyhemoglobin Sodium Potassium 3.5 L Chloride Carbon Dioxide BUN 67 H Creatinine 1.8 H Glucose 129 H POC Glucose Hemoglobin A1c Lactic Acid Calcium 6.5 L Ferritin AST ALT Lactate Dehydrogenase C-Reactive Protein Total Protein Albumin Arterial Blood Glucose Arterial Blood Ionized Calcium Urine WBC (Auto) U Epithel Cells (Auto) Urine Creatinine Coronavirus (PCR) Allied health notes reviewed: RT
--- NOTE | 2020-11-17 19:47 | Event Note ---
Date: 11/17/20 I called patient's daughter Ms. Jolly Fulton at [phone] to update the patient's condition tests and reports and treatment plan Could not reach her, left a message requesting to call back to discuss if she has any questions [email or web address] concerns regarding the patient care. I will try again tomorrow to contact the family
[2020-11-17] MEDS: rOPINIRole 1 MG TAB PO SCH (21:29)
[2020-11-18] MEDS: NORepinephrine/NS 8 MG-250 ML 8 MG/250 ML INFUS..BTL IV SCH (00:19)
[2020-11-18] MEDS: METOCLOPRAMIDE 10 MG/2 ML INJ IV SCH ×4 (01:30→19:23)
[2020-11-18 03:08] LABS: Calcium 5.7 mg/dL (8.4-10.2)
[2020-11-18] MEDS: fentaNYL DRIP Premix 2,000 MCG/100 ML BAG IV SCH (04:04)
[2020-11-18] MEDS: ASCORBIC ACID 500 MG TAB PO SCH ×3 (04:17→21:30)
[2020-11-18] MEDS: INSULIN REGULAR, HUMAN 100 UNITS/1 ML SUB-Q SCH ×4 (07:36→22:56)
[2020-11-18] MEDS ORDERED: MAGNESIUM SULFATE 4 GM/100 ML BAG IV SCH (08:00)
[2020-11-18] MEDS: IPRATROPIUM/ALBUTEROL SULFATE 3 ML AMPUL.NEB IH SCH ×4 (10:15→19:44)
[2020-11-18] MEDS ORDERED: CALCIUM GLUCONATE 2,000 MG in SODIUM CHLORIDE 0.9% 100 ML IV ONE (11:00)
[2020-11-18] MEDS ORDERED: CALCIUM CARBONATE 1250 MG TAB PO SCH (11:00)
[2020-11-18] MEDS ORDERED: CALCIUM CARBONATE 1250 MG/5 ML ORAL LIQD FEEDTUBE SCH (11:00)
--- NOTE | 2020-11-18 11:25 | Progress Note ---
Assessment and Plan Acute hypoxemic respiratory failure on MVS COVID-19 infection Pneumonia Severe Sepsis Acute toxic metabolic encephalopathy Inadvertently placed left carotid line Acute kidney injury Nephrolithiasis Leukocytosis Metabolic acidosis Mild hypernatremia - place FMS re: skin breakdown - get CBC +/- consider empiric Flagyl - reduce set rate to 16/min re: Alkalosis - resume tube feeds at 20 cc/hr then advance slowly to goal as tolerated - get a PICC line and discontinue Femoral CVL - replace PICC line - continue care as below otherwise; - wean Levophed for target MAP > 65 mmHg - continue Daily SAT and SBT assessment as tolerated - continue to wean supplemental oxygen for target O2 sat's > 90% acutely - VAP bundle addressed - continue lung protective strategies - continue bronchodilators with pulmonary hygiene per RT - wean per pulmonary driven protocols otherwise - continue accuchecks with glycemic control per SSI (While critically ill target blood glucose of 140-180 mg/dL; avoid hypoglycemia) - sedation prn for target RASS 0 to -1 - avoid nephrotoxins, renally dose all medications - continue to avoid benzodiazepine's, reduce the possibility of delirium - AB's per ID rec's - prn analgesia per CPOT score - Maintenance of sleep-wake cycle, avoid delirium - continue enteral nutritional support at goal rate as tolerated - G.I. & VTE prophylaxis - PT/OT/ROM exercises - continue mobility protocols for pressure ulcer prophylaxis - Monitor hemodynamics closely - continue other care per attending / other consultants - discharge planning ongoing concurrently COVID SPECIFIC INTERVENTIONS - Remdesivir as per ID/Pulmonary developed protocols - continue systemic steroids for severe COVID-19 infection - s/p Actemra - follow repeat COVID tests results - zinc and vitamin C supplementation - Monitor inflammatory markers per facility protocol - ferritin, Ddimer, CRP - therapeutic anticoagulation per system Protocol based on d-dimer and clinical considerations (re: Carotid srtery thrombus) - Continue contact and airborne isolation .... Re-evaluate in am & prn CONDITION: CRITICAL PROGNOSIS: GUARDED CODE STATUS: FULL CODE The high probability of a clinically significant, sudden or life-threatening deterioration of the [respiratory, cardiovascular, renal & neurologic] system(s) required my full and direct attention, intervention and personal management. The aggregate critical care time was [33] minutes without overlap. Time includes spent on; [x] Data Review and interpretation [x] Patient assessment and monitoring of vital signs [x] Documentation [x] Medication orders and management Subjective Date of service: 11/18/20 Principal diagnosis: Ac hypoxemic resp failure; COVID-19 infxn; Pneumonia; KATLYN; AMS; Sepsis Interval history: Patient is seen today for: Acute hypoxemic respiratory failure; COVID-19 infxn; Pneumonia; Acute toxic metabolic encephalopathy; Carotid Artery thrombus; KATLYN; Leukocytosis Seen and examined at bedside; 24hour events reviewed; nursing and respiratory care staff consulted; no adverse overnight events reported to me; resting in bed; remains on MVS; AMS is persistent; no gross bleeding (G.I. or otherwise); loose stools reported by RN with some perineal excoriation / erythema Objective Vital Signs - 12hr 11/17/20 11/17/20 11/17/20 23:30 23:40 23:46 Temperature 96.4 F L Pulse Rate 86 82 Pulse Rate [ Anterior Bilateral Throughout] Respiratory 19 20 Rate Respiratory Rate [Anterior Bilateral Throughout] Blood Pressure 100/44 115/50 O2 Sat by Pulse 100 100 Oximetry 11/17/20 11/17/20 11/18/20 23:49 23:50 00:00 Temperature 96.4 F L Pulse Rate 81 82 Pulse Rate [ Anterior Bilateral Throughout] Respiratory 20 20 Rate Respiratory Rate [Anterior Bilateral Throughout] Blood Pressure 89/40 92/40 O2 Sat by Pulse 99 96 Oximetry 11/18/20 11/18/20 11/18/20 00:10 00:20 00:30 Temperature Pulse Rate 78 76 65 Pulse Rate [ Anterior Bilateral Throughout] Respiratory 20 20 20 Rate Respiratory Rate [Anterior Bilateral Throughout] Blood Pressure 80/39 77/38 101/47 O2 Sat by Pulse 99 99 100 Oximetry 11/18/20 11/18/20 11/18/20 00:40 00:50 01:00 Temperature Pulse Rate 80 75 73 Pulse Rate [ Anterior Bilateral Throughout] Respiratory 18 20 20 Rate Respiratory Rate [Anterior Bilateral Throughout] Blood Pressure 130/69 132/60 124/43 O2 Sat by Pulse 100 100 99 Oximetry 11/18/20 11/18/20 11/18/20 01:10 01:20 01:30 Temperature Pulse Rate 74 74 79 Pulse Rate [ Anterior Bilateral Throughout] Respiratory 20 20 16 Rate Respiratory Rate [Anterior Bilateral Throughout] Blood Pressure 124/43 130/55 122/48 O2 Sat by Pulse 99 100 99 Oximetry 11/18/20 11/18/20 11/18/20 01:40 01:50 02:00 Temperature Pulse Rate 80 76 77 Pulse Rate [ Anterior Bilateral Throughout] Respiratory 20 20 20 Rate Respiratory Rate [Anterior Bilateral Throughout] Blood Pressure 122/48 108/42 105/41 O2 Sat by Pulse 99 99 100 Oximetry 11/18/20 11/18/20 11/18/20 02:10 02:20 02:30 Temperature Pulse Rate 76 76 77 Pulse Rate [ Anterior Bilateral Throughout] Respiratory 20 20 20 Rate Respiratory Rate [Anterior Bilateral Throughout] Blood Pressure 105/41 115/45 108/42 O2 Sat by Pulse 99 99 99 Oximetry 11/18/20 11/18/20 11/18/20 02:40 02:50 03:00 Temperature Pulse Rate 77 84 88 Pulse Rate [ Anterior Bilateral Throughout] Respiratory 20 20 20 Rate Respiratory Rate [Anterior Bilateral Throughout] Blood Pressure 108/42 128/54 124/48 O2 Sat by Pulse 99 99 99 Oximetry 11/18/20 11/18/20 11/18/20 03:10 03:13 03:20 Temperature 98.4 F Pulse Rate 86 86 Pulse Rate [ Anterior Bilateral Throughout] Respiratory 22 20 Rate Respiratory Rate [Anterior Bilateral Throughout] Blood Pressure 124/48 112/47 O2 Sat by Pulse 98 97 Oximetry 11/18/20 11/18/20 11/18/20 03:30 03:40 03:50 Temperature Pulse Rate 92 H 87 88 Pulse Rate [ Anterior Bilateral Throughout] Respiratory 19 20 19 Rate Respiratory Rate [Anterior Bilateral Throughout] Blood Pressure 116/50 124/48 124/52 O2 Sat by Pulse 97 97 97 Oximetry 11/18/20 11/18/20 11/18/20 04:00 04:10 04:20 Temperature Pulse Rate 84 93 H 92 H Pulse Rate [ Anterior Bilateral Throughout] Respiratory 20 21 20 Rate Respiratory Rate [Anterior Bilateral Throughout] Blood Pressure 113/46 113/46 128/48 O2 Sat by Pulse 96 98 97 Oximetry 11/18/20 11/18/20 11/18/20 04:30 04:40 04:46 Temperature Pulse Rate 93 H 93 H 100 H Pulse Rate [ Anterior Bilateral Throughout] Respiratory 21 21 Rate Respiratory Rate [Anterior Bilateral Throughout] Blood Pressure 124/46 124/46 O2 Sat by Pulse 97 97 97 Oximetry 08/09/21 08/09/21 08/09/21 04:50 05:00 05:10 Temperature Pulse Rate 104 H 103 H 98 H Pulse Rate [ Anterior Bilateral Throughout] Respiratory 21 26 H 22 Rate Respiratory Rate [Anterior Bilateral Throughout] Blood Pressure 141/63 141/66 141/63 O2 Sat by Pulse 95 96 96 Oximetry 11/18/20 11/18/20 11/18/20 05:20 05:30 05:40 Temperature Pulse Rate 95 H 96 H 92 H Pulse Rate [ Anterior Bilateral Throughout] Respiratory 21 22 20 Rate Respiratory Rate [Anterior Bilateral Throughout] Blood Pressure 119/51 125/50 125/50 O2 Sat by Pulse 96 97 96 Oximetry 11/18/20 11/18/20 11/18/20 05:50 06:00 06:10 Temperature Pulse Rate 91 H 91 H 86 Pulse Rate [ Anterior Bilateral Throughout] Respiratory 20 20 20 Rate Respiratory Rate [Anterior Bilateral Throughout] Blood Pressure 114/49 107/47 125/50 O2 Sat by Pulse 96 96 96 Oximetry 11/18/20 11/18/20 11/18/20 06:20 06:30 06:40 Temperature Pulse Rate 84 84 82 Pulse Rate [ Anterior Bilateral Throughout] Respiratory 20 20 20 Rate Respiratory Rate [Anterior Bilateral Throughout] Blood Pressure 102/44 112/44 107/47 O2 Sat by Pulse 96 96 95 Oximetry 11/18/20 11/18/20 11/18/20 06:50 07:00 07:10 Temperature Pulse Rate 81 85 88 Pulse Rate [ Anterior Bilateral Throughout] Respiratory 20 20 20 Rate Respiratory Rate [Anterior Bilateral Throughout] Blood Pressure 101/41 120/54 120/54 O2 Sat by Pulse 95 97 97 Oximetry 11/18/20 11/18/20 11/18/20 07:20 07:30 07:31 Temperature 98.2 F Pulse Rate 87 91 H Pulse Rate [ Anterior Bilateral Throughout] Respiratory 20 21 Rate Respiratory Rate [Anterior Bilateral Throughout] Blood Pressure 122/47 134/53 O2 Sat by Pulse 97 97 Oximetry 11/18/20 11/18/20 11/18/20 07:40 07:50 08:00 Temperature Pulse Rate 88 88 88 Pulse Rate [ Anterior Bilateral Throughout] Respiratory 20 20 20 Rate Respiratory Rate [Anterior Bilateral Throughout] Blood Pressure 134/53 116/48 112/47 O2 Sat by Pulse 96 96 96 Oximetry 11/18/20 11/18/20 11/18/20 08:10 08:20 08:30 Temperature Pulse Rate 84 89 89 Pulse Rate [ Anterior Bilateral Throughout] Respiratory 20 20 20 Rate Respiratory Rate [Anterior Bilateral Throughout] Blood Pressure 112/47 131/57 123/53 O2 Sat by Pulse 95 98 97 Oximetry 11/18/20 11/18/20 11/18/20 08:40 08:50 09:00 Temperature Pulse Rate 89 88 86 Pulse Rate [ Anterior Bilateral Throughout] Respiratory 20 20 20 Rate Respiratory Rate [Anterior Bilateral Throughout] Blood Pressure 123/53 109/43 107/42 O2 Sat by Pulse 96 96 95 Oximetry 11/18/20 11/18/20 11/18/20 09:10 09:20 09:30 Temperature Pulse Rate 88 88 88 Pulse Rate [ Anterior Bilateral Throughout] Respiratory 20 20 20 Rate Respiratory Rate [Anterior Bilateral Throughout] Blood Pressure 107/42 132/53 117/49 O2 Sat by Pulse 97 96 96 Oximetry 11/18/20 11/18/20 11/18/20 09:40 09:50 10:00 Temperature Pulse Rate 88 89 88 Pulse Rate [ Anterior Bilateral Throughout] Respiratory 20 20 20 Rate Respiratory Rate [Anterior Bilateral Throughout] Blood Pressure 117/49 115/51 106/47 O2 Sat by Pulse 96 96 96 Oximetry 11/18/20 11/18/20 11/18/20 10:10 10:15 10:20 Temperature Pulse Rate 88 91 H Pulse Rate [ 88 Anterior Bilateral Throughout] Respiratory 20 21 Rate Respiratory 21 Rate [Anterior Bilateral Throughout] Blood Pressure 106/47 115/51 O2 Sat by Pulse 96 96 Oximetry 11/18/20 11/18/20 11/18/20 10:30 10:40 10:50 Temperature Pulse Rate 90 90 91 H Pulse Rate [ Anterior Bilateral Throughout] Respiratory 22 21 23 Rate Respiratory Rate [Anterior Bilateral Throughout] Blood Pressure 129/52 129/52 116/50 O2 Sat by Pulse 96 96 96 Oximetry 11/18/20 11/18/20 11:00 11:10 Temperature Pulse Rate 92 H 91 H Pulse Rate [ Anterior Bilateral Throughout] Respiratory 23 21 Rate Respiratory Rate [Anterior Bilateral Throughout] Blood Pressure 128/55 128/55 O2 Sat by Pulse 96 96 Oximetry Constitutional: no acute distress, other (elderly obese female with mildly increased respiratory effort at rest on MVS) Eyes: non-icteric ENT: oropharynx moist, other (ETT 24 cm NAY) Neck: supple, no lymphadenopathy, no JVD Effort: mildly labored Ascultation: Bilateral: diminished breath sounds, rhonchi (scant) Percussion: Bilateral: not dull Cardiovascular: regular rate and rhythm Gastrointestinal: normoactive bowel sounds, soft, non-tender, non-distended (protuberant) Integumentary: normal Extremities: no cyanosis, pink and warm, pulses normal, edema (pedal and peripheral; trace to 1+) Neurologic: non-focal exam (grossly), pupils equal and round, unable to assess Psychiatric: other (unable to assess re: AMS) CBC and BMP: 11/17/20 04:00 11/18/20 02:11 ABG, PT/INR, D-dimer: ABG ABG pH 7.565 (7.320-7.450) H 11/18/20 02:38 POC ABG pCO2 30.4 mmHg (32.0-48.0) L 11/18/20 02:38 POC ABG pO2 72.0 mmHg (83-108) L 11/18/20 02:38 POC ABG HCO3 26.9 11/18/20 02:38 ABG O2 Saturation 95.6 (0-100) 11/18/20 02:38 PT/INR, D-dimer PT 16.0 Sec. (12.2-14.9) H 11/13/20 09:51 INR 1.23 (0.87-1.13) H 11/13/20 09:51 D-Dimer 1401.08 ng/mlDDU (0-234) H 11/17/20 09:59 Abnormal lab findings: Abnormal Labs 11/11/20 11/11/20 11/11/20 13:39 13:39 16:59 WBC 19.5 H RBC 5.93 H Hgb 17.0 H Hct 50.6 H RDW Plt Count 449 H Lymph % (Auto) 12.0 L [place] % (Auto) 7.7 H Lymph # (Auto) [place] # (Auto) 1.5 H Seg Neutrophils % 80.0 H Seg Neutrophils # 15.6 H PT INR D-Dimer 1525.92 H Heparin Anti-Xa Level ABG pH POC ABG pCO2 POC ABG pO2 ABG Hemoglobin ABG Oxyhemoglobin ABG Sodium ABG Potassium ABG Chloride ABG Glucose Carboxyhemoglobin Sodium Potassium 3.5 L Chloride 97.3 L Carbon Dioxide BUN 30 H Creatinine 0.5 L Glucose 128 H POC Glucose Hemoglobin A1c Lactic Acid Calcium Magnesium Ferritin AST ALT Lactate Dehydrogenase C-Reactive Protein Total Protein Albumin 3.8 L Arterial Blood Glucose Arterial Blood Ionized Calcium Urine WBC (Auto) U Epithel Cells (Auto) Urine Creatinine Coronavirus (PCR) 11/11/20 11/11/20 11/11/20 16:59 17:12 Unknown WBC RBC Hgb Hct RDW Plt Count Lymph % (Auto) [place] % (Auto) Lymph # (Auto) [place] # (Auto) Seg Neutrophils % Seg Neutrophils # PT INR D-Dimer Heparin Anti-Xa Level ABG pH 7.501 H POC ABG pCO2 POC ABG pO2 55.0 L ABG Hemoglobin ABG Oxyhemoglobin 89.5 L ABG Sodium ABG Potassium 3.2 L ABG Chloride ABG Glucose 131 H Carboxyhemoglobin Sodium Potassium Chloride Carbon Dioxide BUN Creatinine Glucose 117 H POC Glucose Hemoglobin A1c Lactic Acid Calcium Magnesium Ferritin AST ALT Lactate Dehydrogenase 204 H C-Reactive Protein Total Protein Albumin Arterial Blood Glucose 131 H Arterial Blood Ionized Calcium Urine WBC (Auto) U Epithel Cells (Auto) Urine Creatinine Coronavirus (PCR) Positive A 11/12/20 11/12/20 11/12/20 05:07 05:07 05:07 WBC 16.7 H RBC 5.74 H Hgb 16.6 H Hct 50.3 H RDW Plt Count 450 H Lymph % (Auto) 12.1 L [place] % (Auto) 7.5 H Lymph # (Auto) [place] # (Auto) 1.3 H Seg Neutrophils % 77.9 H Seg Neutrophils # 13.0 H PT INR D-Dimer Heparin Anti-Xa Level ABG pH POC ABG pCO2 POC ABG pO2 ABG Hemoglobin ABG Oxyhemoglobin ABG Sodium ABG Potassium ABG Chloride ABG Glucose Carboxyhemoglobin Sodium 147 H Potassium Chloride Carbon Dioxide 35 H D BUN 34 H Creatinine Glucose 117 H POC Glucose Hemoglobin A1c 6.6 H Lactic Acid Calcium 11.1 H Magnesium Ferritin AST ALT Lactate Dehydrogenase C-Reactive Protein Total Protein Albumin Arterial Blood Glucose Arterial Blood Ionized Calcium Urine WBC (Auto) U Epithel Cells (Auto) Urine Creatinine Coronavirus (PCR) 11/12/20 11/13/20 11/13/20 23:58 01:36 04:00 WBC RBC Hgb Hct RDW Plt Count Lymph % (Auto) [place] % (Auto) Lymph # (Auto) [place] # (Auto) Seg Neutrophils % Seg Neutrophils # PT INR D-Dimer Heparin Anti-Xa Level ABG pH POC ABG pCO2 POC ABG pO2 ABG Hemoglobin ABG Oxyhemoglobin ABG Sodium 147.3 H ABG Potassium 3.2 L ABG Chloride 109.0 H ABG Glucose 118 H Carboxyhemoglobin 0.3 L Sodium Potassium 3.1 L Chloride Carbon Dioxide BUN 64 H Creatinine 2.2 H D Glucose 105 H POC Glucose 181 H Hemoglobin A1c Lactic Acid Calcium 8.3 L D Magnesium Ferritin AST 366 H ALT 316 H Lactate Dehydrogenase C-Reactive Protein Total Protein 5.4 L D Albumin 2.5 L Arterial Blood Glucose 118 H Arterial Blood Ionized Calcium Urine WBC (Auto) U Epithel Cells (Auto) Urine Creatinine Coronavirus (PCR) 11/13/20 11/13/20 11/13/20 05:23 08:22 09:51 WBC 15.9 H RBC Hgb Hct 44.4 H RDW Plt Count Lymph % (Auto) 5.7 L [place] % (Auto) 9.0 H Lymph # (Auto) 0.9 L [place] # (Auto) 1.4 H Seg Neutrophils % 85.3 H Seg Neutrophils # 13.6 H PT 16.0 H INR 1.23 H D-Dimer Heparin Anti-Xa Level ABG pH 7.243 L POC ABG pCO2 POC ABG pO2 82.0 L ABG Hemoglobin ABG Oxyhemoglobin 93.5 L ABG Sodium 146.6 H ABG Potassium 2.8 L ABG Chloride 114.0 H ABG Glucose 113 H Carboxyhemoglobin 0.4 L Sodium Potassium Chloride Carbon Dioxide BUN Creatinine Glucose POC Glucose Hemoglobin A1c Lactic Acid Calcium Magnesium Ferritin AST ALT Lactate Dehydrogenase C-Reactive Protein Total Protein Albumin Arterial Blood Glucose 113 H Arterial Blood Ionized Calcium Urine WBC (Auto) U Epithel Cells (Auto) Urine Creatinine Coronavirus (PCR) 11/13/20 11/13/20 11/13/20 09:51 09:51 09:51 WBC RBC Hgb Hct RDW Plt Count Lymph % (Auto) [place] % (Auto) Lymph # (Auto) [place] # (Auto) Seg Neutrophils % Seg Neutrophils # PT INR D-Dimer 5682.19 H Heparin Anti-Xa Level ABG pH POC ABG pCO2 POC ABG pO2 ABG Hemoglobin ABG Oxyhemoglobin ABG Sodium ABG Potassium ABG Chloride ABG Glucose Carboxyhemoglobin Sodium Potassium Chloride Carbon Dioxide BUN Creatinine Glucose 104 H POC Glucose Hemoglobin A1c Lactic Acid Calcium Magnesium Ferritin 1003.0 H AST ALT Lactate Dehydrogenase 1022 H C-Reactive Protein 5.50 H Total Protein Albumin Arterial Blood Glucose Arterial Blood Ionized Calcium Urine WBC (Auto) U Epithel Cells (Auto) Urine Creatinine Coronavirus (PCR) 11/13/20 11/14/20 11/14/20 21:50 00:50 04:25 WBC RBC Hgb Hct RDW Plt Count Lymph % (Auto) [place] % (Auto) Lymph # (Auto) [place] # (Auto) Seg Neutrophils % Seg Neutrophils # PT INR D-Dimer Heparin Anti-Xa Level 0.91 H ABG pH 7.215 L POC ABG pCO2 POC ABG pO2 ABG Hemoglobin ABG Oxyhemoglobin ABG Sodium 147.3 H ABG Potassium ABG Chloride 119.0 H ABG Glucose 156 H Carboxyhemoglobin Sodium Potassium Chloride Carbon Dioxide BUN Creatinine Glucose POC Glucose 59 L Hemoglobin A1c Lactic Acid Calcium Magnesium Ferritin AST ALT Lactate Dehydrogenase C-Reactive Protein Total Protein Albumin Arterial Blood Glucose 156 H Arterial Blood Ionized Calcium 4.3 L Urine WBC (Auto) U Epithel Cells (Auto) Urine Creatinine Coronavirus (PCR) 11/14/20 11/14/20 11/14/20 04:35 04:35 06:15 WBC RBC Hgb Hct 43.9 H RDW 15.3 H Plt Count Lymph % (Auto) [place] % (Auto) Lymph # (Auto) [place] # (Auto) Seg Neutrophils % Seg Neutrophils # PT INR D-Dimer Heparin Anti-Xa Level ABG pH POC ABG pCO2 POC ABG pO2 ABG Hemoglobin ABG Oxyhemoglobin ABG Sodium ABG Potassium ABG Chloride ABG Glucose Carboxyhemoglobin Sodium 151 H D Potassium Chloride 116.8 H Carbon Dioxide 18 L BUN 64 H Creatinine 2.1 H Glucose 148 H POC Glucose Hemoglobin A1c Lactic Acid Calcium 7.3 L Magnesium Ferritin AST ALT Lactate Dehydrogenase C-Reactive Protein 38.00 H Total Protein Albumin Arterial Blood Glucose Arterial Blood Ionized Calcium Urine WBC (Auto) > 182.0 H U Epithel Cells (Auto) 24.0 H Urine Creatinine Coronavirus (PCR) 11/14/20 11/14/20 11/14/20 06:15 06:15 12:01 WBC RBC Hgb Hct RDW Plt Count Lymph % (Auto) [place] % (Auto) Lymph # (Auto) [place] # (Auto) Seg Neutrophils % Seg Neutrophils # PT INR D-Dimer Heparin Anti-Xa Level 1.16 H ABG pH POC ABG pCO2 POC ABG pO2 ABG Hemoglobin ABG Oxyhemoglobin ABG Sodium ABG Potassium ABG Chloride ABG Glucose Carboxyhemoglobin Sodium Potassium Chloride Carbon Dioxide BUN Creatinine Glucose POC Glucose 107 H Hemoglobin A1c Lactic Acid Calcium Magnesium Ferritin AST ALT Lactate Dehydrogenase C-Reactive Protein Total Protein Albumin Arterial Blood Glucose Arterial Blood Ionized Calcium Urine WBC (Auto) U Epithel Cells (Auto) Urine Creatinine 80.2 H Coronavirus (PCR) 11/14/20 11/14/20 11/14/20 17:18 23:00 23:25 WBC RBC Hgb Hct RDW Plt Count Lymph % (Auto) [place] % (Auto) Lymph # (Auto) [place] # (Auto) Seg Neutrophils % Seg Neutrophils # PT INR D-Dimer Heparin Anti-Xa Level 0.96 H ABG pH POC ABG pCO2 POC ABG pO2 ABG Hemoglobin ABG Oxyhemoglobin ABG Sodium ABG Potassium ABG Chloride ABG Glucose Carboxyhemoglobin Sodium Potassium Chloride Carbon Dioxide BUN Creatinine Glucose POC Glucose 173 H 158 H Hemoglobin A1c Lactic Acid Calcium Magnesium Ferritin AST ALT Lactate Dehydrogenase C-Reactive Protein Total Protein Albumin Arterial Blood Glucose Arterial Blood Ionized Calcium Urine WBC (Auto) U Epithel Cells (Auto) Urine Creatinine Coronavirus (PCR) 11/15/20 11/15/20 11/15/20 01:45 04:57 04:57 WBC RBC Hgb Hct RDW 16.2 H Plt Count Lymph % (Auto) [place] % (Auto) Lymph # (Auto) [place] # (Auto) Seg Neutrophils % Seg Neutrophils # PT INR D-Dimer Heparin Anti-Xa Level ABG pH 7.246 L POC ABG pCO2 28.4 L POC ABG pO2 ABG Hemoglobin ABG Oxyhemoglobin ABG Sodium ABG Potassium ABG Chloride 116.0 H ABG Glucose 164 H Carboxyhemoglobin Sodium 147 H Potassium Chloride 114.0 H Carbon Dioxide 16 L BUN 68 H Creatinine 2.4 H Glucose 148 H POC Glucose Hemoglobin A1c Lactic Acid Calcium 7.3 L Magnesium Ferritin AST 395 H ALT 396 H Lactate Dehydrogenase 596 H C-Reactive Protein 34.50 H Total Protein 5.1 L Albumin 2.1 L Arterial Blood Glucose 164 H Arterial Blood Ionized Calcium 4.3 L Urine WBC (Auto) U Epithel Cells (Auto) Urine Creatinine Coronavirus (PCR) 11/15/20 11/15/20 11/15/20 04:57 04:57 05:20 WBC RBC Hgb Hct RDW Plt Count Lymph % (Auto) [place] % (Auto) Lymph # (Auto) [place] # (Auto) Seg Neutrophils % Seg Neutrophils # PT INR D-Dimer 3313.42 H Heparin Anti-Xa Level 0.81 H ABG pH POC ABG pCO2 POC ABG pO2 ABG Hemoglobin ABG Oxyhemoglobin ABG Sodium ABG Potassium ABG Chloride ABG Glucose Carboxyhemoglobin Sodium Potassium Chloride Carbon Dioxide BUN Creatinine Glucose POC Glucose 124 H Hemoglobin A1c Lactic Acid 3.00 H* Calcium Magnesium Ferritin AST ALT Lactate Dehydrogenase C-Reactive Protein Total Protein Albumin Arterial Blood Glucose Arterial Blood Ionized Calcium Urine WBC (Auto) U Epithel Cells (Auto) Urine Creatinine Coronavirus (PCR) 11/15/20 11/15/20 11/15/20 08:26 08:26 11:34 WBC RBC Hgb Hct RDW Plt Count Lymph % (Auto) [place] % (Auto) Lymph # (Auto) [place] # (Auto) Seg Neutrophils % Seg Neutrophils # PT INR D-Dimer Heparin Anti-Xa Level ABG pH POC ABG pCO2 POC ABG pO2 ABG Hemoglobin ABG Oxyhemoglobin ABG Sodium ABG Potassium ABG Chloride ABG Glucose Carboxyhemoglobin Sodium Potassium Chloride Carbon Dioxide BUN Creatinine Glucose POC Glucose 113 H Hemoglobin A1c Lactic Acid 2.60 H* Calcium Magnesium Ferritin 452.8 H AST ALT Lactate Dehydrogenase C-Reactive Protein Total Protein Albumin Arterial Blood Glucose Arterial Blood Ionized Calcium Urine WBC (Auto) U Epithel Cells (Auto) Urine Creatinine Coronavirus (PCR) 11/15/20 11/15/20 11/16/20 16:43 23:16 03:39 WBC RBC Hgb Hct RDW Plt Count Lymph % (Auto) [place] % (Auto) Lymph # (Auto) [place] # (Auto) Seg Neutrophils % Seg Neutrophils # PT INR D-Dimer Heparin Anti-Xa Level ABG pH 7.261 L POC ABG pCO2 31.2 L POC ABG pO2 117.3 H ABG Hemoglobin ABG Oxyhemoglobin ABG Sodium 135.8 L ABG Potassium ABG Chloride 112.0 H ABG Glucose 148 H Carboxyhemoglobin 0.4 L Sodium Potassium Chloride Carbon Dioxide BUN Creatinine Glucose POC Glucose 107 H 113 H Hemoglobin A1c Lactic Acid Calcium Magnesium Ferritin AST ALT Lactate Dehydrogenase C-Reactive Protein Total Protein Albumin Arterial Blood Glucose 148 H Arterial Blood Ionized Calcium 4.1 L Urine WBC (Auto) U Epithel Cells (Auto) Urine Creatinine Coronavirus (PCR) 11/16/20 11/16/20 11/16/20 04:51 11:28 17:15 WBC RBC Hgb Hct RDW Plt Count Lymph % (Auto) [place] % (Auto) Lymph # (Auto) [place] # (Auto) Seg Neutrophils % Seg Neutrophils # PT INR D-Dimer Heparin Anti-Xa Level ABG pH POC ABG pCO2 POC ABG pO2 ABG Hemoglobin ABG Oxyhemoglobin ABG Sodium ABG Potassium ABG Chloride ABG Glucose Carboxyhemoglobin Sodium Potassium Chloride Carbon Dioxide BUN Creatinine Glucose POC Glucose 119 H 144 H 139 H Hemoglobin A1c Lactic Acid Calcium Magnesium Ferritin AST ALT Lactate Dehydrogenase C-Reactive Protein Total Protein Albumin Arterial Blood Glucose Arterial Blood Ionized Calcium Urine WBC (Auto) U Epithel Cells (Auto) Urine Creatinine Coronavirus (PCR) 11/16/20 11/16/20 11/16/20 23:50 Unknown Unknown WBC RBC Hgb Hct RDW Plt Count Lymph % (Auto) [place] % (Auto) Lymph # (Auto) [place] # (Auto) Seg Neutrophils % Seg Neutrophils # PT INR D-Dimer Heparin Anti-Xa Level ABG pH POC ABG pCO2 POC ABG pO2 ABG Hemoglobin ABG Oxyhemoglobin ABG Sodium ABG Potassium ABG Chloride ABG Glucose Carboxyhemoglobin Sodium Potassium 3.5 L Chloride 109.7 H Carbon Dioxide 15 L BUN 65 H Creatinine 2.2 H Glucose 174 H POC Glucose 132 H Hemoglobin A1c Lactic Acid 2.10 H* Calcium 6.1 L D Magnesium Ferritin AST 171 H ALT 268 H Lactate Dehydrogenase C-Reactive Protein Total Protein 4.3 L Albumin 1.9 L Arterial Blood Glucose Arterial Blood Ionized Calcium Urine WBC (Auto) U Epithel Cells (Auto) Urine Creatinine Coronavirus (PCR) 11/17/20 11/17/20 11/17/20 03:14 04:00 05:09 WBC RBC Hgb Hct RDW Plt Count 123 L Lymph % (Auto) [place] % (Auto) Lymph # (Auto) [place] # (Auto) Seg Neutrophils % Seg Neutrophils # PT INR D-Dimer Heparin Anti-Xa Level ABG pH 7.498 H POC ABG pCO2 27.2 L POC ABG pO2 110.6 H ABG Hemoglobin 11.6 L ABG Oxyhemoglobin ABG Sodium 135.4 L ABG Potassium ABG Chloride ABG Glucose 131 H Carboxyhemoglobin Sodium Potassium Chloride Carbon Dioxide BUN Creatinine Glucose POC Glucose 119 H Hemoglobin A1c Lactic Acid Calcium Magnesium Ferritin AST ALT Lactate Dehydrogenase C-Reactive Protein Total Protein Albumin Arterial Blood Glucose 131 H Arterial Blood Ionized Calcium 3.7 L Urine WBC (Auto) U Epithel Cells (Auto) Urine Creatinine Coronavirus (PCR) 11/17/20 11/17/20 11/17/20 09:59 09:59 09:59 WBC RBC Hgb Hct RDW Plt Count Lymph % (Auto) [place] % (Auto) Lymph # (Auto) [place] # (Auto) Seg Neutrophils % Seg Neutrophils # PT INR D-Dimer 1401.08 H Heparin Anti-Xa Level ABG pH POC ABG pCO2 POC ABG pO2 ABG Hemoglobin ABG Oxyhemoglobin ABG Sodium ABG Potassium ABG Chloride ABG Glucose Carboxyhemoglobin Sodium Potassium Chloride Carbon Dioxide BUN Creatinine Glucose 127 H POC Glucose Hemoglobin A1c Lactic Acid Calcium Magnesium Ferritin 224.1 H AST ALT Lactate Dehydrogenase 515 H C-Reactive Protein 4.80 H Total Protein Albumin Arterial Blood Glucose Arterial Blood Ionized Calcium Urine WBC (Auto) U Epithel Cells (Auto) Urine Creatinine Coronavirus (PCR) 11/17/20 11/17/20 11/17/20 11:28 16:26 18:00 WBC RBC Hgb Hct RDW Plt Count Lymph % (Auto) [place] % (Auto) Lymph # (Auto) [place] # (Auto) Seg Neutrophils % Seg Neutrophils # PT INR D-Dimer Heparin Anti-Xa Level 0.10 L ABG pH POC ABG pCO2 POC ABG pO2 ABG Hemoglobin ABG Oxyhemoglobin ABG Sodium ABG Potassium ABG Chloride ABG Glucose Carboxyhemoglobin Sodium Potassium Chloride Carbon Dioxide BUN Creatinine Glucose POC Glucose 114 H 121 H Hemoglobin A1c Lactic Acid Calcium Magnesium Ferritin AST ALT Lactate Dehydrogenase C-Reactive Protein Total Protein Albumin Arterial Blood Glucose Arterial Blood Ionized Calcium Urine WBC (Auto) U Epithel Cells (Auto) Urine Creatinine Coronavirus (PCR) 11/17/20 11/17/20 11/18/20 21:37 Unknown 02:11 WBC RBC Hgb Hct RDW Plt Count Lymph % (Auto) [place] % (Auto) Lymph # (Auto) [place] # (Auto) Seg Neutrophils % Seg Neutrophils # PT INR D-Dimer Heparin Anti-Xa Level ABG pH POC ABG pCO2 POC ABG pO2 ABG Hemoglobin ABG Oxyhemoglobin ABG Sodium ABG Potassium ABG Chloride ABG Glucose Carboxyhemoglobin Sodium 146 H D Potassium 3.5 L Chloride Carbon Dioxide BUN 67 H 62 H Creatinine 1.8 H 1.7 H Glucose 129 H 109 H POC Glucose 118 H Hemoglobin A1c Lactic Acid Calcium 6.5 L 5.7 L* Magnesium 1.20 L Ferritin AST ALT Lactate Dehydrogenase C-Reactive Protein Total Protein Albumin Arterial Blood Glucose Arterial Blood Ionized Calcium Urine WBC (Auto) U Epithel Cells (Auto) Urine Creatinine Coronavirus (PCR) 11/18/20 11/18/20 02:38 04:44 WBC RBC Hgb Hct RDW Plt Count Lymph % (Auto) [place] % (Auto) Lymph # (Auto) [place] # (Auto) Seg Neutrophils % Seg Neutrophils # PT INR D-Dimer Heparin Anti-Xa Level ABG pH 7.565 H POC ABG pCO2 30.4 L POC ABG pO2 72.0 L ABG Hemoglobin 11.4 L ABG Oxyhemoglobin ABG Sodium 134.1 L ABG Potassium 2.9 L ABG Chloride ABG Glucose 110 H Carboxyhemoglobin 0.3 L Sodium Potassium Chloride Carbon Dioxide BUN Creatinine Glucose POC Glucose 109 H Hemoglobin A1c Lactic Acid Calcium Magnesium Ferritin AST ALT Lactate Dehydrogenase C-Reactive Protein Total Protein Albumin Arterial Blood Glucose 110 H Arterial Blood Ionized Calcium 3.4 L Urine WBC (Auto) U Epithel Cells (Auto) Urine Creatinine Coronavirus (PCR) Chest x-ray: pending Allied health notes reviewed: nursing
[2020-11-18] MEDS: PANTOPRAZOLE 40 MG INJ IV SCH ×2 (11:29→21:30)
[2020-11-18] MEDS: ZINC SULFATE 220 MG CAP PO SCH ×2 (11:30→21:30)
[2020-11-18] MEDS: dexAMETHasone 4 MG/ML VIAL IV SCH (11:30)
[2020-11-18] MEDS: SENNOSIDES/DOCUSATE SODIUM 8.6/50 MG TAB FEEDTUBE SCH (11:31)
[2020-11-18] MEDS: PARoxetine 10 MG TAB PO SCH (11:31)
[2020-11-18] MEDS: HEPARIN/ 0.45% NACL DRIP 25,000 UNIT/500 ML BAG IV SCH (11:32)
--- NOTE | 2020-11-18 11:59 | Event Note ---
Date: 11/18/20 I called patient's daughter Kirstin Azevedo who is the emergency contact for the family x 2 today to update patient's condition, tests and reports, treatment plan, consultants recommendations and the prognosis. However both the times I could not reach her as no one picked up the phone, I left a voicemail encouraging her to call back to discuss about the patient care. I called patient's other daughter Besty Chowdary who is the secondary contact. I explained in detail patient's condition, tests and reports, consultants recommendations, treatment plan, and the prognosis She had numerous questions, she was very angry and upset, and wants to come and visit the patient and spend time in patient's room and try to talk to her . I explained that due to Covid 19 visiting restrictions , visitors are not allowed and that she needs to discuss with the cyanide case hardener Ms. Huynh or the administrators. She was very angry and hung up the phone.
--- NOTE | 2020-11-18 12:57 | Progress Note ---
Assessment and Plan 1. Acute kidney injury: KATLYN in the setting of severe Covid infection. Patient is also hypotensive. Received IV contrast 11/13. CT abdomen showed non-obstructive 7 mm distal left ureteral stone. Low FeNa. Monitor renal function. Creatinine level fluctuates. Renal prognosis is guarded. Avoid nephrotoxic agents. Meds dosage based on GFR. 2. FEN: Hypernatremia, started on Metolazone, monitor. Hyperchloremic metabolic acidosis, improved, monitor. Hypokalemia, replete K as needed, monitor. Replete Mg. Monitor lytes and volume status. 3. Acute respiratory failure with hypoxemia: 2/2 Covid PNA. Currently on vent, wean as tolerated. 4. Shock: On Levophed. Monitor. 5. Covid PNA: Followed by ID. 6. L ureteral stone: S/p b/l stent. Seen by Urologist. 7. Elevated ALT & AST: Trend. 8. DM type 2: Monitor. Subjective: Patient was seen and examined at the bedside. Examination: General appearance: well-developed, appears stated age, intubated on vent HEENT: atraumatic, no icterus Neck: trachea midline Respiratory: MV sounds Heart: S1S2, regular, no murmur Abdomen: soft, bowel sounds heard, NT Integumentary: no obvious rash Neurologic: not responding Ext: dependent edema noted : Lind catheter Subjective Date of service: 11/18/20 Principal diagnosis: Ac hypoxemic resp failure; COVID-19 infxn; Pneumonia; KATLYN; AMS; Sepsis Objective - Vital Signs Vital signs: Vital Signs - 12hr 11/18/20 11/18/20 11/18/20 01:00 01:10 01:20 Temperature Pulse Rate 73 74 74 Pulse Rate [ Anterior Bilateral Throughout] Respiratory 20 20 20 Rate Respiratory Rate [Anterior Bilateral Throughout] Blood Pressure 124/43 124/43 130/55 O2 Sat by Pulse 99 99 100 Oximetry 11/18/20 11/18/20 11/18/20 01:30 01:40 01:50 Temperature Pulse Rate 79 80 76 Pulse Rate [ Anterior Bilateral Throughout] Respiratory 16 20 20 Rate Respiratory Rate [Anterior Bilateral Throughout] Blood Pressure 122/48 122/48 108/42 O2 Sat by Pulse 99 99 99 Oximetry 11/18/20 11/18/20 11/18/20 02:00 02:10 02:20 Temperature Pulse Rate 77 76 76 Pulse Rate [ Anterior Bilateral Throughout] Respiratory 20 20 20 Rate Respiratory Rate [Anterior Bilateral Throughout] Blood Pressure 105/41 105/41 115/45 O2 Sat by Pulse 100 99 99 Oximetry 11/18/20 11/18/20 11/18/20 02:30 02:40 02:50 Temperature Pulse Rate 77 77 84 Pulse Rate [ Anterior Bilateral Throughout] Respiratory 20 20 20 Rate Respiratory Rate [Anterior Bilateral Throughout] Blood Pressure 108/42 108/42 128/54 O2 Sat by Pulse 99 99 99 Oximetry 11/18/20 11/18/20 11/18/20 03:00 03:10 03:13 Temperature 98.4 F Pulse Rate 88 86 Pulse Rate [ Anterior Bilateral Throughout] Respiratory 20 22 Rate Respiratory Rate [Anterior Bilateral Throughout] Blood Pressure 124/48 124/48 O2 Sat by Pulse 99 98 Oximetry 11/18/20 11/18/20 11/18/20 03:20 03:30 03:40 Temperature Pulse Rate 86 92 H 87 Pulse Rate [ Anterior Bilateral Throughout] Respiratory 20 19 20 Rate Respiratory Rate [Anterior Bilateral Throughout] Blood Pressure 112/47 116/50 124/48 O2 Sat by Pulse 97 97 97 Oximetry 11/18/20 11/18/20 11/18/20 03:50 04:00 04:10 Temperature Pulse Rate 88 84 93 H Pulse Rate [ Anterior Bilateral Throughout] Respiratory 19 20 21 Rate Respiratory Rate [Anterior Bilateral Throughout] Blood Pressure 124/52 113/46 113/46 O2 Sat by Pulse 97 96 98 Oximetry 11/18/20 11/18/20 11/18/20 04:20 04:30 04:40 Temperature Pulse Rate 92 H 93 H 93 H Pulse Rate [ Anterior Bilateral Throughout] Respiratory 20 21 21 Rate Respiratory Rate [Anterior Bilateral Throughout] Blood Pressure 128/48 124/46 124/46 O2 Sat by Pulse 97 97 97 Oximetry 11/18/20 11/18/20 11/18/20 04:46 04:50 05:00 Temperature Pulse Rate 100 H 104 H 103 H Pulse Rate [ Anterior Bilateral Throughout] Respiratory 21 26 H Rate Respiratory Rate [Anterior Bilateral Throughout] Blood Pressure 141/63 141/66 O2 Sat by Pulse 97 95 96 Oximetry 11/18/20 11/18/20 11/18/20 05:10 05:20 05:30 Temperature Pulse Rate 98 H 95 H 96 H Pulse Rate [ Anterior Bilateral Throughout] Respiratory 22 21 22 Rate Respiratory Rate [Anterior Bilateral Throughout] Blood Pressure 141/63 119/51 125/50 O2 Sat by Pulse 96 96 97 Oximetry 11/18/20 11/18/20 11/18/20 05:40 05:50 06:00 Temperature Pulse Rate 92 H 91 H 91 H Pulse Rate [ Anterior Bilateral Throughout] Respiratory 20 20 20 Rate Respiratory Rate [Anterior Bilateral Throughout] Blood Pressure 125/50 114/49 107/47 O2 Sat by Pulse 96 96 96 Oximetry 11/18/20 11/18/20 11/18/20 06:10 06:20 06:30 Temperature Pulse Rate 86 84 84 Pulse Rate [ Anterior Bilateral Throughout] Respiratory 20 20 20 Rate Respiratory Rate [Anterior Bilateral Throughout] Blood Pressure 125/50 102/44 112/44 O2 Sat by Pulse 96 96 96 Oximetry 11/18/20 11/18/20 11/18/20 06:40 06:50 07:00 Temperature Pulse Rate 82 81 85 Pulse Rate [ Anterior Bilateral Throughout] Respiratory 20 20 20 Rate Respiratory Rate [Anterior Bilateral Throughout] Blood Pressure 107/47 101/41 120/54 O2 Sat by Pulse 95 95 97 Oximetry 11/18/20 11/18/20 11/18/20 07:10 07:20 07:30 Temperature Pulse Rate 88 87 91 H Pulse Rate [ Anterior Bilateral Throughout] Respiratory 20 20 21 Rate Respiratory Rate [Anterior Bilateral Throughout] Blood Pressure 120/54 122/47 134/53 O2 Sat by Pulse 97 97 97 Oximetry 11/18/20 11/18/20 11/18/20 07:31 07:40 07:50 Temperature 98.2 F Pulse Rate 88 88 Pulse Rate [ Anterior Bilateral Throughout] Respiratory 20 20 Rate Respiratory Rate [Anterior Bilateral Throughout] Blood Pressure 134/53 116/48 O2 Sat by Pulse 96 96 Oximetry 11/18/20 11/18/20 11/18/20 08:00 08:10 08:20 Temperature Pulse Rate 88 84 89 Pulse Rate [ Anterior Bilateral Throughout] Respiratory 20 20 20 Rate Respiratory Rate [Anterior Bilateral Throughout] Blood Pressure 112/47 112/47 131/57 O2 Sat by Pulse 96 95 98 Oximetry 11/18/20 11/18/20 11/18/20 08:30 08:40 08:50 Temperature Pulse Rate 89 89 88 Pulse Rate [ Anterior Bilateral Throughout] Respiratory 20 20 20 Rate Respiratory Rate [Anterior Bilateral Throughout] Blood Pressure 123/53 123/53 109/43 O2 Sat by Pulse 97 96 96 Oximetry 11/18/20 11/18/20 11/18/20 09:00 09:10 09:20 Temperature Pulse Rate 86 88 88 Pulse Rate [ Anterior Bilateral Throughout] Respiratory 20 20 20 Rate Respiratory Rate [Anterior Bilateral Throughout] Blood Pressure 107/42 107/42 132/53 O2 Sat by Pulse 95 97 96 Oximetry 11/18/20 11/18/20 11/18/20 09:30 09:40 09:50 Temperature Pulse Rate 88 88 89 Pulse Rate [ Anterior Bilateral Throughout] Respiratory 20 20 20 Rate Respiratory Rate [Anterior Bilateral Throughout] Blood Pressure 117/49 117/49 115/51 O2 Sat by Pulse 96 96 96 Oximetry 11/18/20 11/18/20 11/18/20 10:00 10:10 10:15 Temperature Pulse Rate 88 88 Pulse Rate [ 88 Anterior Bilateral Throughout] Respiratory 20 20 Rate Respiratory 21 Rate [Anterior Bilateral Throughout] Blood Pressure 106/47 106/47 O2 Sat by Pulse 96 96 Oximetry 11/18/20 11/18/20 11/18/20 10:20 10:30 10:40 Temperature Pulse Rate 91 H 90 90 Pulse Rate [ Anterior Bilateral Throughout] Respiratory 21 22 21 Rate Respiratory Rate [Anterior Bilateral Throughout] Blood Pressure 115/51 129/52 129/52 O2 Sat by Pulse 96 96 96 Oximetry 11/18/20 11/18/20 11/18/20 10:50 11:00 11:10 Temperature Pulse Rate 91 H 92 H 91 H Pulse Rate [ Anterior Bilateral Throughout] Respiratory 23 23 21 Rate Respiratory Rate [Anterior Bilateral Throughout] Blood Pressure 116/50 128/55 128/55 O2 Sat by Pulse 96 96 96 Oximetry 11/18/20 11:54 Temperature 98.8 F Pulse Rate Pulse Rate [ Anterior Bilateral Throughout] Respiratory Rate Respiratory Rate [Anterior Bilateral Throughout] Blood Pressure O2 Sat by Pulse Oximetry - Lab 11/17/20 04:00 11/18/20 02:11 Most recent lab results ABG pH 7.565 (7.320-7.450) H 11/18/20 02:38 ABG O2 Saturation 95.6 (0-100) 11/18/20 02:38 Calcium 5.7 mg/dL (8.4-10.2) L* 11/18/20 02:11 Magnesium 1.20 mg/dL (1.7-2.3) L 11/18/20 02:11 Urine Creatinine 80.2 mg/dL (0.1-20.0) H 11/14/20 06:15 Urine Sodium 28 mmol/L 11/14/20 06:15 Medications & Allergies - Medications Allergies/Adverse Reactions: Allergies morphine Adverse Reaction (Verified 05/26/13 19:22) Nausea Home Medications: Home Medications Medication Instructions Recorded Confirmed Last Taken Type Acetaminophen [Tylenol] 325 mg PO DAILY #10 tablet 05/26/13 10/17/14 10/16/14 Rx Baclofen [Lioresal] 10 mg PO TID PRN 05/26/13 10/17/14 10/16/14 History Diazepam [Valium] 10 mg PO BID 05/26/13 10/17/14 10/16/14 History PARoxetine [Paxil] 10 mg PO DAILY 05/26/13 10/17/14 10/16/14 19:00 History Quetiapine Fumarate [SEROquel XR] 200 mg PO DAILY 05/26/13 10/17/14 10/16/14 History rOPINIRole [Requip] 1 mg PO QHS 05/26/13 10/17/14 10/16/14 19:00 History QUEtiapine [SEROquel] 200 mg PO QHS 05/28/13 10/17/14 10/16/14 19:00 History Famotidine [Pepcid] 10 mg PO BID #60 tablet 06/02/13 10/17/14 10/16/14 Rx levoFLOXacin [Levaquin] 750 mg PO QDAY #7 tablet 06/02/13 10/17/14 10/16/14 Rx metroNIDAZOLE [Flagyl] 500 mg PO Q8HR #30 tablet 06/02/13 10/17/14 10/16/14 Rx Hydromorphone HCl [Dilaudid] 4 mg PO 10/17/14 10/17/14 10/16/14 History Oxycodone HCl/Acetaminophen 1 each PO Q6HR PRN 10/17/14 10/17/14 10/16/14 History [Percocet 10-325 mg] Oxycodone HCl/Acetaminophen 1 each PO Q6HR PRN #30 tablet 10/18/14 Unknown Rx [Percocet 10-325 mg] Active Medications: Generic Name Dose Route Start Last Admin Trade Name Freq PRN Reason Stop Dose Admin Acetaminophen 650 mg 11/11/20 22:11 Acetaminophen 325 Mg Tab PO Q4H PRN Pain MILD(1-3)/Fever >100.5/ERAZO Albuterol 2.5 mg 11/13/20 07:40 Albuterol 2.5 Mg/3 Ml Nebu IH Q4HRT PRN Shortness Of Breath Albuterol/Ipratropium 1 ampul 11/13/20 08:00 11/18/20 10:15 Ipratropium/Albuterol Sulfate 3 Ml Ampul.Neb IH 1 ampul QIDRT CARLOS Administration Lipase/Protease/Amylase 1 each 11/13/20 17:32 Lipase 10,500/Protease 25,000/Amylase 43,750 (Units) Dr Weiss FEEDTUBE PRN PRN For Clogged Feeding Tube Ascorbic Acid 500 mg 11/13/20 22:00 11/18/20 11:31 Ascorbic Acid 500 Mg Tab PO 500 mg BID CARLOS Administration Baclofen 10 mg 11/11/20 22:09 Baclofen 10 Mg Tab PO TID PRN MUSCLE SPASMS & PAIN Calcium Carbonate/Glycine 1,250 mg 11/19/20 10:00 Calcium Carbonate 1250 Mg/5 Ml Oral Liqd FEEDTUBE 11/21/20 23:59 QDAY [facility] Dexamethasone 6 mg 11/13/20 10:00 11/18/20 11:30 Dexamethasone 4 Mg/Ml Vial IV 11/22/20 10:01 6 mg Q24HR CARLOS Administration Dextrose 50 ml 11/13/20 16:43 11/14/20 01:12 Dextrose 50% In Water (25gm) 50 Ml Syringe IV 50 ml Q30MIN PRN Administration Hypoglycemia Protocol Fentanyl 50 mcg 11/13/20 05:33 Fentanyl 100 Mcg/2 Ml Inj IV Q10MIN PRN ANALGESIA Heparin Sodium (Porcine) 3,000 unit 11/13/20 05:04 Heparin 10,000 Units/10 Ml Vial 40 unit/kg (3000 unit) IV Q6H PRN Anti-Xa Assay < 0.1 units/ml Hydromorphone HCl 0.5 mg 11/11/20 22:11 Hydromorphone 1 Mg/1 Ml Inj IV Q3H PRN Pain , Severe (7-10) Hydrophilic Ointment 1 applic 11/13/20 05:33 Lip Therapy Vaseline TP Q2HR PRN Dry Lips Heparin Sodium/Sodium Chloride 25,000 unit in 500 mls @ 23 mls/hr 11/13/20 06:00 11/18/20 11:32 Heparin/ 0.45% Nacl-25,000 Unit/500 Ml IV 900 units/hr TITR CARLOS 18 mls/hr Administration Protocol 1,150 UNITS/HR Fentanyl Citrate 2,000 mcg in 100 mls @ 3.81 mls/hr 11/13/20 06:00 11/18/20 04:04 Fentanyl Drip Premix IV 1 mcg/kg/hr TITR CARLOS 3.81 mls/hr Administration Protocol 1 MCG/KG/HR NORepinephrine/NS 8 MG-250 ML 8 mg in 250 mls @ 3.75 mls/hr 11/13/20 15:00 11/18/20 00:19 Norepinephrine/Ns 8 Mg-250 Ml (Double Conc) IV 4 mcg/min TITRATE CARLOS 7.5 mls/hr Administration Protocol 2 MCG/MIN Insulin Human Regular 0 units 11/13/20 17:00 11/18/20 07:36 Insulin Regular, Human 100 Units/1 Ml SUB-Q Not Given Q6H [facility] Protocol Metoclopramide HCl 5 mg 11/15/20 19:00 11/18/20 07:36 Metoclopramide 10 Mg/2 Ml Inj IV 5 mg Q6H CARLOS Administration Multi-Ingred Cream/Lotion/Oil/Oint 1 applic 11/13/20 05:33 Mineral Oil/Petrolatum, White Ophth Oint 3.5 Gm OU Q4HR PRN Dry Eye(s) Ondansetron HCl 4 mg 11/11/20 22:11 Ondansetron 4 Mg/2 Ml Inj IV Q3H PRN Nausea And Vomiting Oxycodone/Acetaminophen 1 tab 11/11/20 22:11 Oxycodone /Acetaminophen 5-325mg Tab PO Q6H PRN Pain, Moderate (4-6) Pantoprazole Sodium 40 mg 11/13/20 14:00 11/18/20 11:29 Pantoprazole 40 Mg Inj IV 40 mg BID CARLOS Administration Paroxetine HCl 10 mg 11/12/20 10:00 11/18/20 11:31 Paroxetine 10 Mg Tab PO 10 mg DAILY CARLOS Administration Ropinirole HCl 1 mg 11/12/20 22:00 11/17/20 21:29 Ropinirole 1 Mg Tab PO Not Given QHS CARLOS Simple Syrup 15 ml 11/13/20 17:32 Simple Syrup 15 Ml FEEDTUBE PRN PRN Hypoglycemia Simple Syrup 30 ml 11/13/20 17:32 Simple Syrup 15 Ml FEEDTUBE PRN PRN Hypoglycemia Sodium Bicarbonate 325 mg 11/13/20 17:32 Sodium Bicarbonate 325 Mg Tab FEEDTUBE PRN PRN For Clogged Feeding Tube Sodium Chloride 10 ml 11/12/20 10:00 11/18/20 11:31 Sodium Chloride 0.9% 10 Ml Flush Syringe IV 10 ml BID CARLOS Administration Sodium Chloride 10 ml 11/11/20 22:11 Sodium Chloride 0.9% 10 Ml Flush Syringe IV PRN PRN LINE FLUSH Zinc Sulfate 220 mg 11/13/20 22:00 11/18/20 11:30 Zinc Sulfate 220 Mg Cap PO 220 mg BID CARLOS Administration
--- NOTE | 2020-11-18 14:59 | Progress Note ---
<MERTAlisaDERIKNeli - Last Filed: 11/18/20 15:17> Assessment and Plan Assessment and plan: This is an 85-year-old female admitted with acute hypoxic respiratory failure, COVID-19 pneumonia and septic shock Acute hypoxic respiratory failure with hypoxia -[facility] consulted, patient recommendations -Intubated 11/13/2020 -VAP bundle -Daily SBT/SAT when appropriate -Serial ABGs, CXR -Wean current ventilation as tolerated Septic shock -Secondary to UTI/pneumonia -MRSA 11/13 sputum culture -Infectious disease consulted, appreciate recommendations -S/p ABX therapy -11/14 blood cultures x2 no growth to date -Vasopressor support with Levophed COVID-19 infection -COVID-19 PCR +11/11 -Infectious disease consulted, appreciate recommendations -Patient not a candidate for remdesivir due to renal failure -S/p Actemra -Dexamethasone for 10 days -Zinc/vitamin C -Trend COVID-19 inflammatory markers -Droplet/isolation precautions Hypotension -Vasopressor support with Levophed -Blood pressure monitoring per protocol Inadvertent placement of carotid artery central venous line -Vascular surgery/interventional radiology consulted, appreciate recommendations -Patient initiated on heparin drip to prevent thrombus -Do not use carotid CVL Transaminitis -Likely related to COVID-19 -Trend LFTs -Consider GI consult if worsening -11/11 abdomen/pelvis CT, see report for findings Dehydration -Trend BMP -P.o. free water flushes -24 hours fluid balance +3632 Type II DM -SSI -Hemoglobin A1c 6.6 -Accu-Cheks every 6 Severe protein malnutrition -Nutrition supplementations -Nutrition consulted, appreciate recommendations Acute kidney injury -Nephrology consulted, appreciate recommendations -Strict intake and output -Daily weights -Avoid nephrotoxic medication -Renally dose medications Left ureteral stone stone -S/p bilateral stent -Neurology consulted, appreciate recommendations Hyponatremia -Resume free water flushes with tube feedings -Trend sodium Hypomagnesemia -Replete magnesium -Trend magnesium Hypocalcemia -Replete with IV calcium -P.o. calcium supplementation for 3 days -Trend calcium Hydronephrosis of left kidney/bilateral ureter stone Elevated D-dimer -Systemic anticoagulation with heparin Lumbar compression fracture -Noted on CT abdomen/pelvis -Pain management as needed -Supportive care DVT/GI prophylaxis: Systemic anticoagulation with heparin, PPI Lines: Femoral CVL, Carotid CVL (do not use), PICC to be placed, blanco FULL CODE Dispo: ICU The high probability of a clinically significant, sudden or life threatening deterioration of the [multi] system(s) required my full and direct attention, intervention and personal management. The aggregate critical care time was [60] minutes. This time is in addition to time spent performing reported procedures but includes the following: [x] Data Review and interpretation [x] Patient assessment and monitoring of vital signs [x] Documentation [x] Medication orders and management Disposition Plan: icu Total Time Spent with Patient (Minutes): 60 History Interval history: This is a 85-year-old female with obesity, chronic low back pain, chronic UTI, muscle spasm, and depression who presents to the emergency department on 11/11 with complaints of nausea/vomiting and decreased p.o. intake for 1 week and complains of mild diarrhea. Patient is bedridden and nonambulatory and oriented to self. Her patient's daughter EMS was called to assess and they gave the patient IV fluids but did not transfer the patient. On 11/11 EMS was contacted again and due to persistent vomiting and apparent small amount of blood in vomit patient was transferred to [facility] for further evaluation and treatment. Upon presentation to the emergency department patient was hypoxic on room air with SPO2 of 88 to 90% and continue to have emesis. Work-up in the emergency department revealed leukocytosis, thrombocytosis, acute hypoxic respiratory failure, SIRS. Patient was admitted as a COVID-19 PUI with acute hypoxic respiratory failure. 11/12/2020 Patient doing well, Discussed with daughter at length about her prognosis and tr eatment, No nausea vomiting since morning Coronavirus PCR came positive 11/13/2020 Patient coded last night and was intubated, ROSC. Patient on vent, Vacuum Spindle Sander consult and ID consult 11/14/2020 Patient intubated, Weaning in progress 11/15/2020; patient remains intubated, on vasopressors for septic shock. Critically ill, poor prognosis, discussed with daughter Kirstin who understands the severity of illness, she wants to talk to the family. If the family agrees she is considering DNR/withdrawal of care, I informed patient's nurse 11/16/2020; Patient remains intubated, on Levophed, Severe sepsis due to COVID-19 pneumonia, critically ill, on heparin drip 11/17/2020; Patient remains critically ill. Septic shock on norepinephrine. Intubated on vent, Very poor prognosis Family unable to decide the goals of treatment CODE STATUS; Recommend palliative care/hospice 11/18: PICC team consulted for placement of PICC, patient noted to have minimal output from NG tube and tube feeding will be restarted, patient will be left with Reglan. CCM decrease PEEP. Hypocalcemia and hypomagnesemia repleted. Hospitalist Physical - Constitutional Vitals: Temp Pulse Resp BP Pulse Ox 98.8 F 90 18 128/56 97 11/18/20 11:54 11/18/20 14:48 11/18/20 14:48 11/18/20 11:55 11/18/20 11:55 General appearance: Present: mild distress, well-nourished, obese, other (Intubated on vent) - EENT Eyes: Present: PERRL ENT: poor dentition - Neck Neck: Absent: masses or JVD, cervical LAD - Respiratory Respiratory effort: normal Respiratory: bilateral: diminished - Cardiovascular Rhythm: regular Heart Sounds: Present: S1 & S2. Absent: systolic murmur, diastolic murmur - Extremities Extremities: no ischemia, pulses intact, pulses symmetrical, normal color Extremity abnormal: cold - Abdominal General gastrointestinal: soft, non-tender, non-distended, normal bowel sounds - Integumentary Integumentary: Present: dry - Psychiatric Psychiatric: other (sedated) - Neurologic Neurologic: other (sedated) - Allied Health Allied health notes reviewed: nursing, RT, social work HEART Score - HEART Score Age: > 65 Risk factors: 1-2 risk factors Troponin: Troponin T < 0.010 ng/mL (0.00-0.029) 11/11/20 13:39 - Critical Actions Critical Actions: 0-3 pts:0.9-1.7%risk of adverse cardiac event.Candidate for discharge Results - Labs CBC & Chem 7: 11/17/20 04:00 11/18/20 02:11 Labs: Laboratory Last Values WBC 9.8 K/mm3 (4.5-11.0) 11/15/20 04:57 RBC 4.68 M/mm3 (3.65-5.03) 11/15/20 04:57 Hgb 10.7 gm/dl (10.1-14.3) 11/17/20 04:00 Hct 32.4 % (30.3-42.9) D 11/17/20 04:00 MCV 89 fl (79-97) 11/15/20 04:57 MCH 28 pg (28-32) 11/15/20 04:57 MCHC 32 % (30-34) 11/15/20 04:57 RDW 16.2 % (13.2-15.2) H 11/15/20 04:57 Plt Count 123 K/mm3 (140-440) L 11/17/20 04:00 Lymph % (Auto) 5.7 % (13.4-35.0) L 11/13/20 05:23 Clay % (Auto) 9.0 % (0.0-7.3) H 11/13/20 05:23 Eos % (Auto) 0.0 % (0.0-4.3) 11/13/20 05:23 Baso % (Auto) 0.0 % (0.0-1.8) 11/13/20 05:23 Lymph # (Auto) 0.9 K/mm3 (1.2-5.4) L 11/13/20 05:23 Clay # (Auto) 1.4 K/mm3 (0.0-0.8) H 11/13/20 05:23 Eos # (Auto) 0.0 K/mm3 (0.0-0.4) 11/13/20 05:23 Baso # (Auto) 0.0 K/mm3 (0.0-0.1) 11/13/20 05:23 Seg Neutrophils % 85.3 % (40.0-70.0) H 11/13/20 05:23 Seg Neutrophils # 13.6 K/mm3 (1.8-7.7) H 11/13/20 05:23 PT 16.0 Sec. (12.2-14.9) H 11/13/20 09:51 INR 1.23 (0.87-1.13) H 11/13/20 09:51 APTT 24.2 Sec. (24.2-36.6) 11/13/20 09:51 D-Dimer 1401.08 ng/mlDDU (0-234) H 11/17/20 09:59 Heparin Anti-Xa Level 0.41 U.I./ml (0.3-0.7) 11/17/20 23:26 ABG pH 7.565 (7.320-7.450) H 11/18/20 02:38 POC ABG pCO2 30.4 mmHg (32.0-48.0) L 11/18/20 02:38 POC ABG pO2 72.0 mmHg (83-108) L 11/18/20 02:38 POC ABG HCO3 26.9 11/18/20 02:38 ABG O2 Saturation 95.6 (0-100) 11/18/20 02:38 POC ABG Base Excess 5.1 11/18/20 02:38 ABG Hemoglobin 11.4 (12.0-17.5) L 11/18/20 02:38 ABG Oxyhemoglobin 95.0 (94-98) 11/18/20 02:38 ABG Methemoglobin 0.3 (0.0-1.5) 11/18/20 02:38 ABG Sodium 134.1 mmol/L (136.0-145.0) L 11/18/20 02:38 ABG Potassium 2.9 mmol/L (3.40-4.50) L 11/18/20 02:38 ABG Chloride 102.0 mmol/L (98-107) 11/18/20 02:38 ABG Glucose 110 mg/dL (65-95) H 11/18/20 02:38 Carboxyhemoglobin 0.3 (0.5-1.5) L 11/18/20 02:38 FiO2 % 60.0 11/18/20 02:38 Sodium 146 mmol/L (137-145) H D 11/18/20 02:11 Potassium 3.9 mmol/L (3.6-5.0) 11/18/20 02:11 Chloride 103.6 mmol/L (98-107) 11/18/20 02:11 Carbon Dioxide 28 mmol/L (22-30) 11/18/20 02:11 Anion Gap 18 mmol/L 11/18/20 02:11 BUN 62 mg/dL (7-17) H 11/18/20 02:11 Creatinine 1.7 mg/dL (0.6-1.2) H 11/18/20 02:11 Estimated GFR 29 ml/min 11/18/20 02:11 BUN/Creatinine Ratio 36 % 11/18/20 02:11 Glucose 109 mg/dL (65-100) H 11/18/20 02:11 POC Glucose 88 mg/dL (70-105) 11/18/20 11:27 Hemoglobin A1c 6.6 % (4-6) H 11/12/20 05:07 Lactic Acid 2.10 mmol/L (0.7-2.0) H* 11/16/20 Unknown Calcium 5.7 mg/dL (8.4-10.2) L* 11/18/20 02:11 Magnesium 1.20 mg/dL (1.7-2.3) L 11/18/20 02:11 Ferritin 224.1 ng/mL (10.0-200.0) H 11/17/20 09:59 Total Bilirubin 0.30 mg/dL (0.1-1.2) 11/16/20 Unknown AST 171 units/L (5-40) H 11/16/20 Unknown ALT 268 units/L (7-56) H 11/16/20 Unknown Alkaline Phosphatase 63 units/L (35-129) 11/16/20 Unknown Lactate Dehydrogenase 515 units/L (91-180) H 11/17/20 09:59 Troponin T < 0.010 ng/mL (0.00-0.029) 11/11/20 13:39 C-Reactive Protein 4.80 mg/dL (0.00-1.30) H 11/17/20 09:59 Total Protein 4.3 g/dL (6.3-8.2) L 11/16/20 Unknown Albumin 1.9 g/dL (3.9-5) L 11/16/20 Unknown Albumin/Globulin Ratio 0.8 % 11/16/20 Unknown Lipase 55 units/L (13-60) 11/11/20 13:39 Procalcitonin < 0.05 ng/mL (<0.15) 11/11/20 16:59 Arterial Blood Glucose 110 mg/dL (65-95) H 11/18/20 02:38 Arterial Blood Ionized Calcium 3.4 mg/dL (4.6-5.3) L 11/18/20 02:38 Urine Color Red (Yellow) 11/14/20 06:15 Urine Turbidity Turbid (Clear) 11/14/20 06:15 Urine pH TNR 11/14/20 06:15 Ur Specific [place] 1.029 (1.003-1.030) 11/11/20 Unknown Urine Protein TNR 11/14/20 06:15 Urine Glucose (UA) Color interference mg/dL (Negative) 11/14/20 06:15 Urine Ketones Color interference mg/dL (Negative) 11/14/20 06:15 Urine Blood Sm (Negative) 11/11/20 Unknown Urine Nitrite TNR 11/14/20 06:15 Ur Reducing Substances TNR 11/14/20 06:15 Urine Bilirubin Color interference (Negative) 11/14/20 06:15 Urine Ictotest TNR 11/14/20 06:15 Urine Urobilinogen TNR 11/14/20 06:15 Ur Leukocyte Esterase TNR 11/14/20 06:15 Urine WBC (Auto) > 182.0 /HPF (0.0-6.0) H 11/14/20 06:15 Urine RBC (Auto) > 182.0 /HPF (0.0-6.0) 11/14/20 06:15 U Epithel Cells (Auto) 24.0 /HPF (0-13.0) H 11/14/20 06:15 Urine WBC Clumps 3+ /HPF 11/14/20 06:15 Urine Creatinine 80.2 mg/dL (0.1-20.0) H 11/14/20 06:15 Urine Sodium 28 mmol/L 11/14/20 06:15 Coronavirus (PCR) Positive (Negative) A 11/11/20 Unknown Blood Type A POSITIVE 11/11/20 15:00 Antibody Screen Negative 11/11/20 15:00 Microbiology: Microbiology 11/13/20 05:33 Sputum - Endotracheal Wash Sputum Culture - Final Methicillin Resist S. Aureus 11/14/20 Unknown Peripheral/Venous Blood Culture - Preliminary NO GROWTH AFTER 72 HOURS 11/14/20 Unknown Peripheral/Venous Blood Culture - Preliminary NO GROWTH AFTER 72 HOURS Blanco/IV: Voiding Method Indwelling Catheter Active Medications - Current Medications Current Medications: Generic Name Dose Route Start Last Admin Trade Name Freq PRN Reason Stop Dose Admin Acetaminophen 650 mg 11/11/20 22:11 Acetaminophen 325 Mg Tab PO Q4H PRN Pain MILD(1-3)/Fever >100.5/ERAZO Albuterol 2.5 mg 11/13/20 07:40 Albuterol 2.5 Mg/3 Ml Nebu IH Q4HRT PRN Shortness Of Breath Albuterol/Ipratropium 1 ampul 11/13/20 08:00 11/18/20 14:48 Ipratropium/Albuterol Sulfate 3 Ml Ampul.Neb IH 1 ampul QIDRT CARLOS Administration Lipase/Protease/Amylase 1 each 11/13/20 17:32 Lipase 10,500/Protease 25,000/Amylase 43,750 (Units) Dr Weiss FEEDTUBE PRN PRN For Clogged Feeding Tube Ascorbic Acid 500 mg 11/13/20 22:00 11/18/20 11:31 Ascorbic Acid 500 Mg Tab PO 500 mg BID CARLOS Administration Baclofen 10 mg 11/11/20 22:09 Baclofen 10 Mg Tab PO TID PRN MUSCLE SPASMS & PAIN Calcium Carbonate/Glycine 1,250 mg 11/19/20 10:00 Calcium Carbonate 1250 Mg/5 Ml Oral Liqd FEEDTUBE 11/21/20 23:59 QDAY CARLOS Dexamethasone 6 mg 11/13/20 10:00 11/18/20 11:30 Dexamethasone 4 Mg/Ml Vial IV 11/22/20 10:01 6 mg Q24HR CARLOS Administration Dextrose 50 ml 11/13/20 16:43 11/14/20 01:12 Dextrose 50% In Water (25gm) 50 Ml Syringe IV 50 ml Q30MIN PRN Administration Hypoglycemia Protocol Fentanyl 50 mcg 11/13/20 05:33 Fentanyl 100 Mcg/2 Ml Inj IV Q10MIN PRN ANALGESIA Heparin Sodium (Porcine) 3,000 unit 11/13/20 05:04 Heparin 10,000 Units/10 Ml Vial 40 unit/kg (3000 unit) IV Q6H PRN Anti-Xa Assay < 0.1 units/ml Hydromorphone HCl 0.5 mg 11/11/20 22:11 Hydromorphone 1 Mg/1 Ml Inj IV Q3H PRN Pain , Severe (7-10) Hydrophilic Ointment 1 applic 11/13/20 05:33 Lip Therapy Vaseline TP Q2HR PRN Dry Lips Heparin Sodium/Sodium Chloride 25,000 unit in 500 mls @ 23 mls/hr 11/13/20 06:00 11/18/20 11:32 Heparin/ 0.45% Nacl-25,000 Unit/500 Ml IV 900 units/hr TITR CARLOS 18 mls/hr Administration Protocol 1,150 UNITS/HR Fentanyl Citrate 2,000 mcg in 100 mls @ 3.81 mls/hr 11/13/20 06:00 11/18/20 04:04 Fentanyl Drip Premix IV 1 mcg/kg/hr TITR CARLOS 3.81 mls/hr Administration Protocol 1 MCG/KG/HR NORepinephrine/NS 8 MG-250 ML 8 mg in 250 mls @ 3.75 mls/hr 11/13/20 15:00 11/18/20 14:23 Norepinephrine/Ns 8 Mg-250 Ml (Double Conc) IV 2 mcg/min TITRATE CARLOS 3.75 mls/hr Titration Protocol 2 MCG/MIN Insulin Human Regular 0 units 11/13/20 17:00 11/18/20 12:00 Insulin Regular, Human 100 Units/1 Ml SUB-Q Not Given Q6H [facility] Protocol Metoclopramide HCl 5 mg 11/15/20 19:00 11/18/20 14:19 Metoclopramide 10 Mg/2 Ml Inj IV 5 mg Q6H CARLOS Administration Metolazone 5 mg 11/18/20 15:00 Metolazone 5 Mg Tab PO QDAY [facility] Multi-Ingred Cream/Lotion/Oil/Oint 1 applic 11/13/20 05:33 Mineral Oil/Petrolatum, White Ophth Oint 3.5 Gm OU Q4HR PRN Dry Eye(s) Ondansetron HCl 4 mg 11/11/20 22:11 Ondansetron 4 Mg/2 Ml Inj IV Q3H PRN Nausea And Vomiting Oxycodone/Acetaminophen 1 tab 11/11/20 22:11 Oxycodone /Acetaminophen 5-325mg Tab PO Q6H PRN Pain, Moderate (4-6) Pantoprazole Sodium 40 mg 11/13/20 14:00 11/18/20 11:29 Pantoprazole 40 Mg Inj IV 40 mg BID CARLOS Administration Paroxetine HCl 10 mg 11/12/20 10:00 11/18/20 11:31 Paroxetine 10 Mg Tab PO 10 mg DAILY CARLOS Administration Ropinirole HCl 1 mg 11/12/20 22:00 11/17/20 21:29 Ropinirole 1 Mg Tab PO Not Given QHS [facility] Simple Syrup 15 ml 11/13/20 17:32 Simple Syrup 15 Ml FEEDTUBE PRN PRN Hypoglycemia Simple Syrup 30 ml 11/13/20 17:32 Simple Syrup 15 Ml FEEDTUBE PRN PRN Hypoglycemia Sodium Bicarbonate 325 mg 11/13/20 17:32 Sodium Bicarbonate 325 Mg Tab FEEDTUBE PRN PRN For Clogged Feeding Tube Sodium Chloride 10 ml 11/12/20 10:00 11/18/20 11:31 Sodium Chloride 0.9% 10 Ml Flush Syringe IV 10 ml BID CARLOS Administration Sodium Chloride 10 ml 11/11/20 22:11 Sodium Chloride 0.9% 10 Ml Flush Syringe IV PRN PRN LINE FLUSH Zinc Sulfate 220 mg 11/13/20 22:00 11/18/20 11:30 Zinc Sulfate 220 Mg Cap PO 220 mg BID CARLOS Administration Nutrition/Malnutrition Assess - Dietary Evaluation Nutrition/Malnutrition Findings: Nutrition Notes Start: 11/13/20 17:2 5 Freq: Status: Active Protocol: Document 11/18/20 13:11 (Rec: 11/18/20 13:13 [email or web address]) Nutrition Notes Initial or Follow up Reassessment Current Diagnosis Sepsis,Respiratory Failure Other Pertinent Diagnosis COVID-19 (+), Dehydration, (L) renal stone Current Diet None ordered Labs/Tests Na 146 BUN 62 Cr 1.7 Mg 1.2 Pertinent Medications mason Antony Height 5 ft 4 in Weight 84.2 kg [place] Body Weight (kg) 54.54 BMI 31.8 Weight Status Overweight Subjective/Other Information Per ADMISSIONS ASSISTANT Azad, okay to restart TF at 10 ml/hr and increase as tolerated. Burn Absent Trauma Absent Current % PO Negligible Minimum of two criteria No #1 Nutrition Diagnosis Inadequate oral intake Diagnosis Progress(for reassessment Continues documentation) Is patient on ventilator? Yes Is Patient Ambulatory and/or Out of Bed No [facility] 4808.456 Calculation Used for Recommendations [facility] Additional Notes Pro needs 1.2-2g/k-154g/ day Fluid needs 1ml/kcal Nutrition Intervention Change Diet Order: Restart TF Nutrition Support: Vital AF 1.2 at 50ml/hr with 75ml water flush q4h. Kcal 1,440 Protein (gm) 90 Fluid (mL) 973 Goal #1 TF tolerance Goal #2 TF to meet at least 75% energy and pro needs Anticipated Discharge Needs: Unable to identify at this time Follow-Up By: 11/20/20 Additional Comments F/u: TF restart and tolerance <KATHRYN FOSTER - Last Filed: 11/18/20 18:06> Assessment and Plan Assessment and plan: I have seen and examined the patient at the bedside in ICU this morning Strict isolation precautions PPE protocols followed per COVID-19 guidelines Patient remains intubated on ventilatory support Hypotensive on vasopressors , Severe Covid infection, electrolyte imbalances hypocalcemia, hypomagnesemia corrected per protocol Consultants recommendations noted and appreciated Continue current management I called patient's daughter Ms. Jolly Fulton at [phone] Unable to reach her left a voicemail, I called other daughter Betsy Chowdary at [phone], and discussed in detail patient's condition tests and reports, consultants recommendation, prognosis Ms. Meyer wanted to come and visit the patient in her room and try to talk to the patient, I informed her of the visitation restrictions due to COVID-19. Patient is full CODE STATUS I also reviewed and agree with the nurse practitioners documentation with few additions as above I also discussed with patient's nurse, and case management History Interval history: I have seen and examined the patient at the bedside this morning in ICU Strict isolation precautions, PPE protocols followed per Covid 19 guidelines Patient remains intubated on ventilatory support, hypotensive on norepinephrine And heparin drip, patient has electrolyte abnormalities like hypocalcemia, hypomagnesemia Which are corrected per protocol Patient is critically ill, consultants and recommendations noted and appreciated I discussed with patient's daughter Jaysonist Physical - Constitutional Vitals: Temp Pulse Resp BP Pulse Ox 98.8 F 77 21 129/40 97 11/18/20 16:00 11/18/20 16:52 11/18/20 16:52 11/18/20 16:11 11/18/20 16:11 HEART Score - HEART Score Troponin: Troponin T < 0.010 ng/mL (0.00-0.029) 11/11/20 13:39 Results - Labs CBC & Chem 7: 11/17/20 04:00 11/18/20 02:11 Labs: Laboratory Last Values WBC 9.8 K/mm3 (4.5-11.0) 11/15/20 04:57 RBC 4.68 M/mm3 (3.65-5.03) 11/15/20 04:57 Hgb 10.7 gm/dl (10.1-14.3) 11/17/20 04:00 Hct 32.4 % (30.3-42.9) D 11/17/20 04:00 MCV 89 fl (79-97) 11/15/20 04:57 MCH 28 pg (28-32) 11/15/20 04:57 MCHC 32 % (30-34) 11/15/20 04:57 RDW 16.2 % (13.2-15.2) H 11/15/20 04:57 Plt Count 123 K/mm3 (140-440) L 11/17/20 04:00 Lymph % (Auto) 5.7 % (13.4-35.0) L 11/13/20 05:23 Clay % (Auto) 9.0 % (0.0-7.3) H 11/13/20 05:23 Eos % (Auto) 0.0 % (0.0-4.3) 11/13/20 05:23 Baso % (Auto) 0.0 % (0.0-1.8) 11/13/20 05:23 Lymph # (Auto) 0.9 K/mm3 (1.2-5.4) L 11/13/20 05:23 Clay # (Auto) 1.4 K/mm3 (0.0-0.8) H 11/13/20 05:23 Eos # (Auto) 0.0 K/mm3 (0.0-0.4) 11/13/20 05:23 Baso # (Auto) 0.0 K/mm3 (0.0-0.1) 11/13/20 05:23 Seg Neutrophils % 85.3 % (40.0-70.0) H 11/13/20 05:23 Seg Neutrophils # 13.6 K/mm3 (1.8-7.7) H 11/13/20 05:23 PT 16.0 Sec. (12.2-14.9) H 11/13/20 09:51 INR 1.23 (0.87-1.13) H 11/13/20 09:51 APTT 24.2 Sec. (24.2-36.6) 11/13/20 09:51 D-Dimer 1401.08 ng/mlDDU (0-234) H 11/17/20 09:59 Heparin Anti-Xa Level 0.41 U.I./ml (0.3-0.7) 11/17/20 23:26 ABG pH 7.565 (7.320-7.450) H 11/18/20 02:38 POC ABG pCO2 30.4 mmHg (32.0-48.0) L 11/18/20 02:38 POC ABG pO2 72.0 mmHg (83-108) L 11/18/20 02:38 POC ABG HCO3 26.9 11/18/20 02:38 ABG O2 Saturation 95.6 (0-100) 11/18/20 02:38 POC ABG Base Excess 5.1 11/18/20 02:38 ABG Hemoglobin 11.4 (12.0-17.5) L 11/18/20 02:38 ABG Oxyhemoglobin 95.0 (94-98) 11/18/20 02:38 ABG Methemoglobin 0.3 (0.0-1.5) 11/18/20 02:38 ABG Sodium 134.1 mmol/L (136.0-145.0) L 11/18/20 02:38 ABG Potassium 2.9 mmol/L (3.40-4.50) L 11/18/20 02:38 ABG Chloride 102.0 mmol/L (98-107) 11/18/20 02:38 ABG Glucose 110 mg/dL (65-95) H 11/18/20 02:38 Carboxyhemoglobin 0.3 (0.5-1.5) L 11/18/20 02:38 FiO2 % 60.0 11/18/20 02:38 Sodium 146 mmol/L (137-145) H D 11/18/20 02:11 Potassium 3.9 mmol/L (3.6-5.0) 11/18/20 02:11 Chloride 103.6 mmol/L (98-107) 11/18/20 02:11 Carbon Dioxide 28 mmol/L (22-30) 11/18/20 02:11 Anion Gap 18 mmol/L 11/18/20 02:11 BUN 62 mg/dL (7-17) H 11/18/20 02:11 Creatinine 1.7 mg/dL (0.6-1.2) H 11/18/20 02:11 Estimated GFR 29 ml/min 11/18/20 02:11 BUN/Creatinine Ratio 36 % 11/18/20 02:11 Glucose 109 mg/dL (65-100) H 11/18/20 02:11 POC Glucose 125 mg/dL (70-105) H 11/18/20 17:09 Hemoglobin A1c 6.6 % (4-6) H 11/12/20 05:07 Lactic Acid 2.10 mmol/L (0.7-2.0) H* 11/16/20 Unknown Calcium 5.7 mg/dL (8.4-10.2) L* 11/18/20 02:11 Magnesium 1.20 mg/dL (1.7-2.3) L 11/18/20 02:11 Ferritin 224.1 ng/mL (10.0-200.0) H 11/17/20 09:59 Total Bilirubin 0.30 mg/dL (0.1-1.2) 11/16/20 Unknown AST 171 units/L (5-40) H 11/16/20 Unknown ALT 268 units/L (7-56) H 11/16/20 Unknown Alkaline Phosphatase 63 units/L (35-129) 11/16/20 Unknown Lactate Dehydrogenase 515 units/L (91-180) H 11/17/20 09:59 Troponin T < 0.010 ng/mL (0.00-0.029) 11/11/20 13:39 C-Reactive Protein 4.80 mg/dL (0.00-1.30) H 11/17/20 09:59 Total Protein 4.3 g/dL (6.3-8.2) L 11/16/20 Unknown Albumin 1.9 g/dL (3.9-5) L 11/16/20 Unknown Albumin/Globulin Ratio 0.8 % 11/16/20 Unknown Lipase 55 units/L (13-60) 11/11/20 13:39 Procalcitonin < 0.05 ng/mL (<0.15) 11/11/20 16:59 Arterial Blood Glucose 110 mg/dL (65-95) H 11/18/20 02:38 Arterial Blood Ionized Calcium 3.4 mg/dL (4.6-5.3) L 11/18/20 02:38 Urine Color Red (Yellow) 11/14/20 06:15 Urine Turbidity Turbid (Clear) 11/14/20 06:15 Urine pH TNR 11/14/20 06:15 Ur Specific [place] 1.029 (1.003-1.030) 11/11/20 Unknown Urine Protein TNR 11/14/20 06:15 Urine Glucose (UA) Color interference mg/dL (Negative) 11/14/20 06:15 Urine Ketones Color interference mg/dL (Negative) 11/14/20 06:15 Urine Blood Sm (Negative) 11/11/20 Unknown Urine Nitrite TNR 11/14/20 06:15 Ur Reducing Substances TNR 11/14/20 06:15 Urine Bilirubin Color interference (Negative) 11/14/20 06:15 Urine Ictotest TNR 11/14/20 06:15 Urine Urobilinogen TNR 11/14/20 06:15 Ur Leukocyte Esterase TNR 11/14/20 06:15 Urine WBC (Auto) > 182.0 /HPF (0.0-6.0) H 11/14/20 06:15 Urine RBC (Auto) > 182.0 /HPF (0.0-6.0) 11/14/20 06:15 U Epithel Cells (Auto) 24.0 /HPF (0-13.0) H 11/14/20 06:15 Urine WBC Clumps 3+ /HPF 11/14/20 06:15 Urine Creatinine 80.2 mg/dL (0.1-20.0) H 11/14/20 06:15 Urine Sodium 28 mmol/L 11/14/20 06:15 Coronavirus (PCR) Positive (Negative) A 11/11/20 Unknown Blood Type A POSITIVE 11/11/20 15:00 Antibody Screen Negative 11/11/20 15:00 Microbiology: Microbiology 11/13/20 05:33 Sputum - Endotracheal Wash Sputum Culture - Final Methicillin Resist S. Aureus 11/14/20 Unknown Peripheral/Venous Blood Culture - Preliminary NO GROWTH AFTER 72 HOURS 11/14/20 Unknown Peripheral/Venous Blood Culture - Preliminary NO GROWTH AFTER 72 HOURS Blanco/IV: Voiding Method Indwelling Catheter Active Medications - Current Medications Current Medications: Generic Name Dose Route Start Last Admin Trade Name Freq PRN Reason Stop Dose Admin Acetaminophen 650 mg 11/11/20 22:11 Acetaminophen 325 Mg Tab PO Q4H PRN Pain MILD(1-3)/Fever >100.5/ERAZO Albuterol 2.5 mg 11/13/20 07:40 Albuterol 2.5 Mg/3 Ml Nebu IH Q4HRT PRN Shortness Of Breath Albuterol/Ipratropium 1 ampul 11/13/20 08:00 11/18/20 16:52 Ipratropium/Albuterol Sulfate 3 Ml Ampul.Neb IH 1 ampul QIDRT CARLOS Administration Lipase/Protease/Amylase 1 each 11/13/20 17:32 Lipase 10,500/Protease 25,000/Amylase 43,750 (Units) Dr Weiss FEEDTUBE PRN PRN For Clogged Feeding Tube Ascorbic Acid 500 mg 11/13/20 22:00 11/18/20 11:31 Ascorbic Acid 500 Mg Tab PO 500 mg BID CARLOS Administration Baclofen 10 mg 11/11/20 22:09 Baclofen 10 Mg Tab PO TID PRN MUSCLE SPASMS & PAIN Calcium Carbonate/Glycine 1,250 mg 11/19/20 10:00 Calcium Carbonate 1250 Mg/5 Ml Oral Liqd FEEDTUBE 11/21/20 23:59 QDAY CARLOS Dexamethasone 6 mg 11/13/20 10:00 11/18/20 11:30 Dexamethasone 4 Mg/Ml Vial IV 11/22/20 10:01 6 mg Q24HR CARLOS Administration Dextrose 50 ml 11/13/20 16:43 11/14/20 01:12 Dextrose 50% In Water (25gm) 50 Ml Syringe IV 50 ml Q30MIN PRN Administration Hypoglycemia Protocol Fentanyl 50 mcg 11/13/20 05:33 Fentanyl 100 Mcg/2 Ml Inj IV Q10MIN PRN ANALGESIA Heparin Sodium (Porcine) 3,000 unit 11/13/20 05:04 Heparin 10,000 Units/10 Ml Vial 40 unit/kg (3000 unit) IV Q6H PRN Anti-Xa Assay < 0.1 units/ml Hydromorphone HCl 0.5 mg 11/11/20 22:11 Hydromorphone 1 Mg/1 Ml Inj IV Q3H PRN Pain , Severe (7-10) Hydrophilic Ointment 1 applic 11/13/20 05:33 Lip Therapy Vaseline TP Q2HR PRN Dry Lips Heparin Sodium/Sodium Chloride 25,000 unit in 500 mls @ 23 mls/hr 11/13/20 06:00 11/18/20 11:32 Heparin/ 0.45% Nacl-25,000 Unit/500 Ml IV 900 units/hr TITR CARLOS 18 mls/hr Administration Protocol 1,150 UNITS/HR Fentanyl Citrate 2,000 mcg in 100 mls @ 3.81 mls/hr 11/13/20 06:00 11/18/20 04:04 Fentanyl Drip Premix IV 1 mcg/kg/hr TITR CARLOS 3.81 mls/hr Administration Protocol 1 MCG/KG/HR NORepinephrine/NS 8 MG-250 ML 8 mg in 250 mls @ 3.75 mls/hr 11/13/20 15:00 11/18/20 14:23 Norepinephrine/Ns 8 Mg-250 Ml (Double Conc) IV 2 mcg/min TITRATE CARLOS 3.75 mls/hr Titration Protocol 2 MCG/MIN Insulin Human Regular 0 units 11/13/20 17:00 11/18/20 17:20 Insulin Regular, Human 100 Units/1 Ml SUB-Q Not Given Q6H [facility] Protocol Metoclopramide HCl 5 mg 11/15/20 19:00 11/18/20 14:19 Metoclopramide 10 Mg/2 Ml Inj IV 5 mg Q6H CARLOS Administration Metolazone 5 mg 11/18/20 15:00 11/18/20 17:04 Metolazone 5 Mg Tab PO 5 mg QDAY CARLOS Administration Multi-Ingred Cream/Lotion/Oil/Oint 1 applic 11/13/20 05:33 Mineral Oil/Petrolatum, White Ophth Oint 3.5 Gm OU Q4HR PRN Dry Eye(s) Ondansetron HCl 4 mg 11/11/20 22:11 Ondansetron 4 Mg/2 Ml Inj IV Q3H PRN Nausea And Vomiting Oxycodone/Acetaminophen 1 tab 11/11/20 22:11 Oxycodone /Acetaminophen 5-325mg Tab PO Q6H PRN Pain, Moderate (4-6) Pantoprazole Sodium 40 mg 11/13/20 14:00 11/18/20 11:29 Pantoprazole 40 Mg Inj IV 40 mg BID CARLOS Administration Paroxetine HCl 10 mg 11/12/20 10:00 11/18/20 11:31 Paroxetine 10 Mg Tab PO 10 mg DAILY CARLOS Administration Ropinirole HCl 1 mg 11/12/20 22:00 11/17/20 21:29 Ropinirole 1 Mg Tab PO Not Given QHS CARLOS Simple Syrup 15 ml 11/13/20 17:32 Simple Syrup 15 Ml FEEDTUBE PRN PRN Hypoglycemia Simple Syrup 30 ml 11/13/20 17:32 Simple Syrup 15 Ml FEEDTUBE PRN PRN Hypoglycemia Sodium Bicarbonate 325 mg 11/13/20 17:32 Sodium Bicarbonate 325 Mg Tab FEEDTUBE PRN PRN For Clogged Feeding Tube Sodium Chloride 10 ml 11/12/20 10:00 11/18/20 11:31 Sodium Chloride 0.9% 10 Ml Flush Syringe IV 10 ml BID CARLOS Administration Sodium Chloride 10 ml 11/11/20 22:11 Sodium Chloride 0.9% 10 Ml Flush Syringe IV PRN PRN LINE FLUSH Zinc Sulfate 220 mg 11/13/20 22:00 11/18/20 11:30 Zinc Sulfate 220 Mg Cap PO 220 mg BID CARLOS Administration Nutrition/Malnutrition Assess - Dietary Evaluation Nutrition/Malnutrition Findings: Nutrition Notes Start: 11/13/20 17:25 Freq: Status: Active Protocol: Document 11/18/20 13:11 (Rec: 11/18/20 13:13 [id number]) Nutrition Notes Initial or Follow up Reassessment Current Diagnosis Sepsis,Respiratory Failure Other Pertinent Diagnosis COVID-19 (+), Dehydration, (L) renal stone Current Diet None ordered Labs/Tests Na 146 BUN 62 Cr 1.7 Mg 1.2 Pertinent Medications Regmason godoy Height 5 ft 4 in Weight 84.2 kg [place] Body Weight (kg) 54.54 BMI 31.8 Weight Status Overweight Subjective/Other Information Per ADMISSIONS ASSISTANT Azad, okay to restart TF at 10 ml/hr and increase as tolerated. Burn Absent Trauma Absent Current % PO Negligible Minimum of two criteria No #1 Nutrition Diagnosis Inadequate oral intake Diagnosis Progress(for reassessment Continues documentation) Is patient on ventilator? Yes Is Patient Ambulatory and/or Out of Bed No REE-([facility]-confined to bed) [phone] Calculation Used for Recommendations [facility] Additional Notes Pro needs 1.2-2g/k-154g/ day Fluid needs 1ml/kcal Nutrition Intervention Change Diet Order: Restart TF Nutrition Support: Vital AF 1.2 at 50ml/hr with 75ml water flush q4h. Kcal 1,440 Protein (gm) 90 Fluid (mL) 973 Goal #1 TF tolerance Goal #2 TF to meet at least 75% energy and pro needs Anticipated Discharge Needs: Unable to identify at this time Follow-Up By: 11/20/20 Additional Comments F/u: TF restart and tolerance
--- NOTE | 2020-11-18 15:54 | Progress Note ---
Assessment and Plan Cultures: Blood culture no growth so far Respiratory culture: MRSA Covid PCR: Positive A/P: 85-year-old female past medical history obesity, chronic low back pain, depression admitted with COVID-19 #Severe COVID-19 pneumonia: Patient presented with a week of symptoms, chest x- ray with diffuse bilateral infiltrates, admission O2 sats 89-90% on room air. Inflammatory markers elevated. Normal procalcitonin. #Acute hypoxemic respiratory failure: Likely secondary to COVID-19 infection. Currently on the vent. #KATLYN: renally dose medications. not a candidate for remdesivir #nephrolithiasis: with associated hydronephrosis. Recs: -Dexamethasone 6 mg IV/PO daily for 10 days -Not a remdesivir candidate due to renal failure -s/p Actemra -Obtain q48-72h inflammatory markers - ferritin, Ddimer, CRP, LDH -Anticoagulation per hospital protocol -Proning as able -As she has improved without antibiotics, resp culture may represent co lonization of the tube. If she decompensates/spikes new fevers please start vancomycin. Thank you for the consult, we will continue to follow. Araceli Chacon MD [facility] ([facility] O: [phone] F: [phone] Subjective Date of service: 11/18/20 Principal diagnosis: Ac hypoxemic resp failure; COVID-19 infxn; Pneumonia; KATLYN; AMS; Sepsis Interval history: Afebrile, no acute change. Same culture with MRSA. Imaging personally viewed: Chest x-ray: No major change Objective - Exam Narrative Exam: Physical exam deferred to reduce risk of transmission of COVID-19. Please refer to primary team's note. - Constitutional Vitals: Vital Signs Temp Pulse Resp BP Pulse Ox 98.8 F 90 29 H 115/39 96 11/18/20 11:54 11/18/20 15:45 11/18/20 15:45 11/18/20 15:45 11/18/20 15:45 Temperature -Last 24 Hours Temperature 98.8 F Temperature 98.2 F Temperature 98.4 F Temperature 96.4 F Temperature 96.4 F Temperature 97.8 F Temperature 97.3 F - Labs CBC & Chem 7: 11/17/20 04:00 11/18/20 02:11 Labs: Abnormal lab results 11/17/20 11/17/20 11/17/20 Range/Units 16:26 18:00 21:37 Heparin Anti-Xa Level 0.10 L (0.3-0.7) U.I./ml ABG pH (7.320-7.450) POC ABG pCO2 (32.0-48.0) mmHg POC ABG pO2 (83-108) mmHg ABG Hemoglobin (12.0-17.5) ABG Sodium (136.0-145.0) mmol/L ABG Potassium (3.40-4.50) mmol/L ABG Glucose (65-95) mg/dL Carboxyhemoglobin (0.5-1.5) Sodium (137-145) mmol/L BUN (7-17) mg/dL Creatinine (0.6-1.2) mg/dL Glucose (65-100) mg/dL POC Glucose 121 H 118 H (70-105) mg/dL Calcium (8.4-10.2) mg/dL Magnesium (1.7-2.3) mg/dL Arterial Blood Glucose (65-95) mg/dL Arterial Blood Ionized Calcium (4.6-5.3) mg/dL 11/18/20 11/18/20 11/18/20 Range/Units 02:11 02:38 04:44 Heparin Anti-Xa Level (0.3-0.7) U.I./ml ABG pH 7.565 H (7.320-7.450) POC ABG pCO2 30.4 L (32.0-48.0) mmHg POC ABG pO2 72.0 L (83-108) mmHg ABG Hemoglobin 11.4 L (12.0-17.5) ABG Sodium 134.1 L (136.0-145.0) mmol/L ABG Potassium 2.9 L (3.40-4.50) mmol/L ABG Glucose 110 H (65-95) mg/dL Carboxyhemoglobin 0.3 L (0.5-1.5) Sodium 146 H D (137-145) mmol/L BUN 62 H (7-17) mg/dL Creatinine 1.7 H (0.6-1.2) mg/dL Glucose 109 H (65-100) mg/dL POC Glucose 109 H (70-105) mg/dL Calcium 5.7 L* (8.4-10.2) mg/dL Magnesium 1.20 L (1.7-2.3) mg/dL Arterial Blood Glucose 110 H (65-95) mg/dL Arterial Blood Ionized Calcium 3.4 L (4.6-5.3) mg/dL
[2020-11-18] MEDS ORDERED: SODIUM CHLORIDE 0.9% 500 ML 500 ML ONE (16:10)
[2020-11-18] MEDS: metOLazone 5 MG TAB PO SCH (17:04)
[2020-11-18] MEDS: rOPINIRole 1 MG TAB PO SCH (21:31)
[2020-11-19] MEDS: METOCLOPRAMIDE 10 MG/2 ML INJ IV SCH ×3 (01:37→13:18)
[2020-11-19] MEDS: fentaNYL DRIP Premix 2,000 MCG/100 ML BAG IV SCH (03:30)
[2020-11-19 04:11] LABS: Hematocrit 31.2 % (30.3-42.9); Hemoglobin 10.3 gm/dl (10.1-14.3); Mean Corpuscular HGB Conc 33 % (30-34); Mean Corpuscular Volume 86 fl (79-97); Platelet Count 145 K/mm3 (140-440); Red Blood Count 3.61 M/mm3 (3.65-5.03); Red Cell Distribution Width 14.5 % (13.2-15.2)
--- NOTE | 2020-11-19 04:30 | XRay Report ---
CHEST - 1 VIEW INDICATION: hypoxia COMPARISON: 2 days prior FINDINGS: SUPPORT DEVICES: Stable support device positioning. HEART: Stable cardiomediastinal silhouette. LUNGS/PLEURA: Improved aeration in the lungs with only minimal residual streaky bibasilar airspace d isease. ADDITIONAL FINDINGS: None. IMPRESSION: Improved exam. Signer Name: Michael Booker MD Signed: 11/19/2020 4:25 AM Workstation Name: [id number]
[2020-11-19 04:33] LABS: C-Reactive Protein 1.4 mg/dL (0.00-1.30); Calcium 6.7 mg/dL (8.4-10.2)
[2020-11-19 04:52] LABS: Total Cells Counted 100
[2020-11-19 04:53] LABS: RBC Morphology Normal
[2020-11-19] MEDS: INSULIN REGULAR, HUMAN 100 UNITS/1 ML SUB-Q SCH ×2 (05:56→10:52)
[2020-11-19] MEDS ORDERED: POTASSIUM CHLORIDE 20 MEQ PACKET FEEDTUBE SCH (06:00)
[2020-11-19] MEDS ORDERED: POTASSIUM PHOSPHATE 40 MMOL in SODIUM CHLORIDE 0.9% 500 ML 500 ML IV ONE (08:00)
[2020-11-19] MEDS: IPRATROPIUM/ALBUTEROL SULFATE 3 ML AMPUL.NEB IH SCH ×2 (08:15→13:21)
[2020-11-19] MEDS ORDERED: LANSOPRAZOLE 30 MG SOLUTAB FEEDTUBE SCH (10:00)
[2020-11-19] MEDS: ZINC SULFATE 220 MG CAP PO SCH ×2 (10:08→21:24)
[2020-11-19] MEDS: ASCORBIC ACID 500 MG TAB PO SCH ×2 (10:08→21:23)
[2020-11-19] MEDS: PARoxetine 10 MG TAB PO SCH (10:10)
[2020-11-19] MEDS: metOLazone 5 MG TAB PO SCH (10:17)
[2020-11-19] MEDS: NORepinephrine/NS 8 MG-250 ML 8 MG/250 ML INFUS..BTL IV SCH (10:18)
[2020-11-19] MEDS: CALCIUM CARBONATE 1250 MG/5 ML ORAL LIQD FEEDTUBE SCH (10:52)
[2020-11-19] MEDS: VASOPRESSIN 20 UNIT in SODIUM CHLORIDE 0.9% 100 ML IV SCH ×2 (11:38→21:50)
--- NOTE | 2020-11-19 13:20 | Progress Note ---
Assessment and Plan Acute hypoxemic respiratory failure on MVS COVID-19 infection Pneumonia Severe Sepsis Acute toxic metabolic encephalopathy Inadvertently placed left carotid line Acute kidney injury Nephrolithiasis Leukocytosis Metabolic acidosis Mild hypernatremia - GI consult placed and case discussed - begin PPI drip - NGT to LIS - H&H q6h X 2 draws (stat) - discontinue blanco catheter - send stat stool guaiac - family conference held earlier today and care plan discussed; family used equipment sales representative to visit later - s/p PICC line - reduced FiO2 to 50% - continue care as below otherwise; - reduce set rate to 16/min re: Alkalosis - wean Levophed for target MAP > 65 mmHg - continue Daily SAT and SBT assessment as tolerated - continue to wean supplemental oxygen for target O2 sat's > 90% acutely - VAP bundle addressed - continue lung protective strategies - continue bronchodilators with pulmonary hygiene per RT - wean per pulmonary driven protocols otherwise - continue accuchecks with glycemic control per SSI (While critically ill target blood glucose of 140-180 mg/dL; avoid hypoglycemia) - sedation prn for target RASS 0 to -1 - avoid nephrotoxins, renally dose all medications - continue to avoid benzodiazepine's, reduce the possibility of delirium - AB's per ID rec's - prn analgesia per CPOT score - Maintenance of sleep-wake cycle, avoid delirium - continue enteral nutritional support at goal rate as tolerated - G.I. & VTE prophylaxis - PT/OT/ROM exercises - continue mobility protocols for pressure ulcer prophylaxis - Monitor hemodynamics closely - continue other care per attending / other consultants - discharge planning ongoing concurrently COVID SPECIFIC INTERVENTIONS - Remdesivir as per ID/Pulmonary developed protocols - continue systemic steroids for severe COVID-19 infection - s/p Actemra - follow repeat COVID tests results - zinc and vitamin C supplementation - Monitor inflammatory markers per facility protocol - ferritin, Ddimer, CRP - therapeutic anticoagulation per system Protocol based on d-dimer and clinical considerations (re: Carotid artery thrombus) - Continue contact and airborne isolation .... Re-evaluate in am & prn CONDITION: CRITICAL PROGNOSIS: GUARDED CODE STATUS: FULL CODE The high probability of a clinically significant, sudden or life-threatening deterioration of the [respiratory, cardiovascular, renal & neurologic] system(s) required my full and direct attention, intervention and personal management. The aggregate critical care time was [50] minutes without overlap. Time includes spent on; [x] Data Review and interpretation [x] Patient assessment and monitoring of vital signs [x] Documentation [x] Medication orders and management Subjective Date of service: 11/19/20 Principal diagnosis: Ac hypoxemic resp failure; COVID-19 infxn; Pneumonia; KATLYN; AMS; Sepsis Interval history: Patient is seen today for: Acute hypoxemic respiratory failure; COVID-19 infxn; Pneumonia; Acute toxic metabolic encephalopathy; Carotid Artery thrombus; KATLYN; Leukocytosis Seen and examined at bedside; 24hour events reviewed; nursing and respiratory care staff consulted; no adverse overnight events reported to me; resting in bed; remains on MVS; melena type stools noted overnight but no BRBPR; FiO2 remains at 60% with some room to wean Objective Vital Signs - 12hr 11/19/20 11/19/20 11/19/20 01:30 01:45 02:00 Temperature Pulse Rate 104 H 104 H 105 H Pulse Rate [ From Monitor] Respiratory 22 17 24 Rate Blood Pressure 126/71 123/70 88/61 O2 Sat by Pulse 93 92 Oximetry 11/19/20 11/19/20 11/19/20 02:15 02:30 02:45 Temperature Pulse Rate 104 H 103 H 102 H Pulse Rate [ From Monitor] Respiratory 24 26 H 26 H Rate Blood Pressure 92/59 91/61 96/60 O2 Sat by Pulse 93 94 94 Oximetry 11/19/20 11/19/20 11/19/20 03:00 03:15 03:30 Temperature Pulse Rate 104 H 102 H 99 H Pulse Rate [ From Monitor] Respiratory 24 27 H 22 Rate Blood Pressure 100/58 114/56 118/56 O2 Sat by Pulse 94 94 94 Oximetry 11/19/20 11/19/20 11/19/20 03:40 03:45 03:47 Temperature 98.8 F Pulse Rate 98 H 103 H Pulse Rate [ From Monitor] Respiratory 26 H Rate Blood Pressure 118/56 120/52 O2 Sat by Pulse 94 94 Oximetry 11/19/20 11/19/20 11/19/20 04:00 04:15 04:31 Temperature Pulse Rate 103 H 103 H 104 H Pulse Rate [ 95 H From Monitor] Respiratory 20 26 H 26 H Rate Blood Pressure 115/58 114/55 109/53 O2 Sat by Pulse 97 93 93 Oximetry 11/19/20 11/19/20 11/19/20 04:45 05:00 05:15 Temperature Pulse Rate 104 H 103 H 103 H Pulse Rate [ From Monitor] Respiratory 22 25 H 27 H Rate Blood Pressure 111/55 113/54 100/52 O2 Sat by Pulse 93 94 93 Oximetry 11/19/20 11/19/20 11/19/20 05:30 05:45 06:00 Temperature Pulse Rate 99 H 104 H 104 H Pulse Rate [ From Monitor] Respiratory 27 H 27 H 27 H Rate Blood Pressure 95/50 92/53 109/49 O2 Sat by Pulse 94 94 95 Oximetry 11/19/20 11/19/20 11/19/20 06:15 06:30 06:45 Temperature Pulse Rate 104 H 102 H 105 H Pulse Rate [ From Monitor] Respiratory 27 H 28 H 28 H Rate Blood Pressure 95/44 97/50 84/51 O2 Sat by Pulse 95 93 93 Oximetry 11/19/20 11/19/20 11/19/20 07:00 07:15 07:31 Temperature Pulse Rate 105 H 105 H 108 H Pulse Rate [ From Monitor] Respiratory 28 H 25 H 25 H Rate Blood Pressure 78/48 87/48 96/58 O2 Sat by Pulse 93 92 Oximetry 11/19/20 11/19/20 11/19/20 07:45 08:00 08:01 Temperature 98.2 F Pulse Rate 110 H 123 H 113 H Pulse Rate [ From Monitor] Respiratory 27 H 28 H Rate Blood Pressure 86/50 72/54 O2 Sat by Pulse 79 L 85 Oximetry 11/19/20 11/19/20 11/19/20 08:12 08:15 08:31 Temperature Pulse Rate 96 H 122 H 117 H Pulse Rate [ From Monitor] Respiratory 30 H 26 H Rate Blood Pressure 127/71 123/78 O2 Sat by Pulse 97 97 98 Oximetry 11/19/20 11/19/20 11/19/20 08:45 09:00 09:15 Temperature Pulse Rate 121 H 123 H 124 H Pulse Rate [ From Monitor] Respiratory 37 H 57 H 30 H Rate Blood Pressure 98/71 159/67 153/69 O2 Sat by Pulse 96 95 93 Oximetry 11/19/20 11/19/20 11/19/20 09:31 09:45 11:30 Temperature Pulse Rate 122 H 123 H Pulse Rate [ From Monitor] Respiratory 54 H 56 H 28 H Rate Blood Pressure 139/52 138/54 O2 Sat by Pulse 94 92 Oximetry 11/19/20 12:49 Temperature Pulse Rate 110 H Pulse Rate [ From Monitor] Respiratory Rate Blood Pressure 146/62 O2 Sat by Pulse 99 Oximetry Constitutional: no acute distress, other (elderly obese female with mildly increased respiratory effort at rest on MVS) Eyes: non-icteric ENT: oropharynx moist, other (ETT 24 cm NYA) Neck: supple, no lymphadenopathy, no JVD Effort: mildly labored Ascultation: Bilateral: diminished breath sounds, rhonchi (scant) Percussion: Bilateral: not dull Cardiovascular: regular rate and rhythm Gastrointestinal: normoactive bowel sounds, soft, non-tender, non-distended (protuberant) Integumentary: normal Extremities: no cyanosis, pink and warm, pulses normal, edema (pedal and peripheral; 1++) Neurologic: non-focal exam (grossly), pupils equal and round, unable to assess Psychiatric: other (unable to assess re: AMS) CBC and BMP: 11/19/20 04:00 11/19/20 04:00 ABG, PT/INR, D-dimer: ABG ABG pH 7.577 (7.320-7.450) H 11/19/20 03:19 POC ABG pCO2 28.0 mmHg (32.0-48.0) L 11/19/20 03:19 POC ABG pO2 57.4 mmHg (83-108) L 11/19/20 03:19 POC ABG HCO3 25.5 11/19/20 03:19 ABG O2 Saturation 90.8 (0-100) 11/19/20 03:19 PT/INR, D-dimer PT 16.0 Sec. (12.2-14.9) H 11/13/20 09:51 INR 1.23 (0.87-1.13) H 11/13/20 09:51 D-Dimer 1808.23 ng/mlDDU (0-234) H 11/19/20 04:00 Abnormal lab findings: Abnormal Labs 11/11/20 11/11/20 11/11/20 13:39 13:39 16:59 WBC 19.5 H RBC 5.93 H Hgb 17.0 H Hct 50.6 H RDW Plt Count 449 H Lymph % (Auto) 12.0 L [place] % (Auto) 7.7 H Lymph # (Auto) [place] # (Auto) 1.5 H Seg Neutrophils % 80.0 H Seg Neuts % (Manual) Lymphocytes % (Manual) Monocytes % (Manual) Seg Neutrophils # 15.6 H Seg Neutrophils # Man Monocytes # (Manual) PT INR D-Dimer 1525.92 H Heparin Anti-Xa Level ABG pH POC ABG pCO2 POC ABG pO2 ABG Hemoglobin ABG Oxyhemoglobin ABG Sodium ABG Potassium ABG Chloride ABG Glucose Carboxyhemoglobin Sodium Potassium 3.5 L Chloride 97.3 L Carbon Dioxide BUN 30 H Creatinine 0.5 L Glucose 128 H POC Glucose Hemoglobin A1c Lactic Acid Calcium Phosphorus Magnesium Ferritin AST ALT Lactate Dehydrogenase C-Reactive Protein Total Protein Albumin 3.8 L Arterial Blood Glucose Arterial Blood Ionized Calcium Urine WBC (Auto) U Epithel Cells (Auto) Urine Creatinine Coronavirus (PCR) 11/11/20 11/11/20 11/11/20 16:59 17:12 Unknown WBC RBC Hgb Hct RDW Plt Count Lymph % (Auto) [place] % (Auto) Lymph # (Auto) [place] # (Auto) Seg Neutrophils % Seg Neuts % (Manual) Lymphocytes % (Manual) Monocytes % (Manual) Seg Neutrophils # Seg Neutrophils # Man Monocytes # (Manual) PT INR D-Dimer Heparin Anti-Xa Level ABG pH 7.501 H POC ABG pCO2 POC ABG pO2 55.0 L ABG Hemoglobin ABG Oxyhemoglobin 89.5 L ABG Sodium ABG Potassium 3.2 L ABG Chloride ABG Glucose 131 H Carboxyhemoglobin Sodium Potassium Chloride Carbon Dioxide BUN Creatinine Glucose 117 H POC Glucose Hemoglobin A1c Lactic Acid Calcium Phosphorus Magnesium Ferritin AST ALT Lactate Dehydrogenase 204 H C-Reactive Protein Total Protein Albumin Arterial Blood Glucose 131 H Arterial Blood Ionized Calcium Urine WBC (Auto) U Epithel Cells (Auto) Urine Creatinine Coronavirus (PCR) Positive A 11/12/20 11/12/20 11/12/20 05:07 05:07 05:07 WBC 16.7 H RBC 5.74 H Hgb 16.6 H Hct 50.3 H RDW Plt Count 450 H Lymph % (Auto) 12.1 L [place] % (Auto) 7.5 H Lymph # (Auto) [place] # (Auto) 1.3 H Seg Neutrophils % 77.9 H Seg Neuts % (Manual) Lymphocytes % (Manual) Monocytes % (Manual) Seg Neutrophils # 13.0 H Seg Neutrophils # Man Monocytes # (Manual) PT INR D-Dimer Heparin Anti-Xa Level ABG pH POC ABG pCO2 POC ABG pO2 ABG Hemoglobin ABG Oxyhemoglobin ABG Sodium ABG Potassium ABG Chloride ABG Glucose Carboxyhemoglobin Sodium 147 H Potassium Chloride Carbon Dioxide 35 H D BUN 34 H Creatinine Glucose 117 H POC Glucose Hemoglobin A1c 6.6 H Lactic Acid Calcium 11.1 H Phosphorus Magnesium Ferritin AST ALT Lactate Dehydrogenase C-Reactive Protein Total Protein Albumin Arterial Blood Glucose Arterial Blood Ionized Calcium Urine WBC (Auto) U Epithel Cells (Auto) Urine Creatinine Coronavirus (PCR) 11/12/20 11/13/20 11/13/20 23:58 01:36 04:00 WBC RBC Hgb Hct RDW Plt Count Lymph % (Auto) [place] % (Auto) Lymph # (Auto) [place] # (Auto) Seg Neutrophils % Seg Neuts % (Manual) Lymphocytes % (Manual) Monocytes % (Manual) Seg Neutrophils # Seg Neutrophils # Man Monocytes # (Manual) PT INR D-Dimer Heparin Anti-Xa Level ABG pH POC ABG pCO2 POC ABG pO2 ABG Hemoglobin ABG Oxyhemoglobin ABG Sodium 147.3 H ABG Potassium 3.2 L ABG Chloride 109.0 H ABG Glucose 118 H Carboxyhemoglobin 0.3 L Sodium Potassium 3.1 L Chloride Carbon Dioxide BUN 64 H Creatinine 2.2 H D Glucose 105 H POC Glucose 181 H Hemoglobin A1c Lactic Acid Calcium 8.3 L D Phosphorus Magnesium Ferritin AST 366 H ALT 316 H Lactate Dehydrogenase C-Reactive Protein Total Protein 5.4 L D Albumin 2.5 L Arterial Blood Glucose 118 H Arterial Blood Ionized Calcium Urine WBC (Auto) U Epithel Cells (Auto) Urine Creatinine Coronavirus (PCR) 11/13/20 11/13/20 11/13/20 05:23 08:22 09:51 WBC 15.9 H RBC Hgb Hct 44.4 H RDW Plt Count Lymph % (Auto) 5.7 L [place] % (Auto) 9.0 H Lymph # (Auto) 0.9 L [place] # (Auto) 1.4 H Seg Neutrophils % 85.3 H Seg Neuts % (Manual) Lymphocytes % (Manual) Monocytes % (Manual) Seg Neutrophils # 13.6 H Seg Neutrophils # Man Monocytes # (Manual) PT 16.0 H INR 1.23 H D-Dimer Heparin Anti-Xa Level ABG pH 7.243 L POC ABG pCO2 POC ABG pO2 82.0 L ABG Hemoglobin ABG Oxyhemoglobin 93.5 L ABG Sodium 146.6 H ABG Potassium 2.8 L ABG Chloride 114.0 H ABG Glucose 113 H Carboxyhemoglobin 0.4 L Sodium Potassium Chloride Carbon Dioxide BUN Creatinine Glucose POC Glucose Hemoglobin A1c Lactic Acid Calcium Phosphorus Magnesium Ferritin AST ALT Lactate Dehydrogenase C-Reactive Protein Total Protein Albumin Arterial Blood Glucose 113 H Arterial Blood Ionized Calcium Urine WBC (Auto) U Epithel Cells (Auto) Urine Creatinine Coronavirus (PCR) 11/13/20 11/13/20 11/13/20 09:51 09:51 09:51 WBC RBC Hgb Hct RDW Plt Count Lymph % (Auto) [place] % (Auto) Lymph # (Auto) [place] # (Auto) Seg Neutrophils % Seg Neuts % (Manual) Lymphocytes % (Manual) Monocytes % (Manual) Seg Neutrophils # Seg Neutrophils # Man Monocytes # (Manual) PT INR D-Dimer 5682.19 H Heparin Anti-Xa Level ABG pH POC ABG pCO2 POC ABG pO2 ABG Hemoglobin ABG Oxyhemoglobin ABG Sodium ABG Potassium ABG Chloride ABG Glucose Carboxyhemoglobin Sodium Potassium Chloride Carbon Dioxide BUN Creatinine Glucose 104 H POC Glucose Hemoglobin A1c Lactic Acid Calcium Phosphorus Magnesium Ferritin 1003.0 H AST ALT Lactate Dehydrogenase 1022 H C-Reactive Protein 5.50 H Total Protein Albumin Arterial Blood Glucose Arterial Blood Ionized Calcium Urine WBC (Auto) U Epithel Cells (Auto) Urine Creatinine Coronavirus (PCR) 11/13/20 11/14/20 11/14/20 21:50 00:50 04:25 WBC RBC Hgb Hct RDW Plt Count Lymph % (Auto) [place] % (Auto) Lymph # (Auto) [place] # (Auto) Seg Neutrophils % Seg Neuts % (Manual) Lymphocytes % (Manual) Monocytes % (Manual) Seg Neutrophils # Seg Neutrophils # Man Monocytes # (Manual) PT INR D-Dimer Heparin Anti-Xa Level 0.91 H ABG pH 7.215 L POC ABG pCO2 POC ABG pO2 ABG Hemoglobin ABG Oxyhemoglobin ABG Sodium 147.3 H ABG Potassium ABG Chloride 119.0 H ABG Glucose 156 H Carboxyhemoglobin Sodium Potassium Chloride Carbon Dioxide BUN Creatinine Glucose POC Glucose 59 L Hemoglobin A1c Lactic Acid Calcium Phosphorus Magnesium Ferritin AST ALT Lactate Dehydrogenase C-Reactive Protein Total Protein Albumin Arterial Blood Glucose 156 H Arterial Blood Ionized Calcium 4.3 L Urine WBC (Auto) U Epithel Cells (Auto) Urine Creatinine Coronavirus (PCR) 11/14/20 11/14/20 11/14/20 04:35 04:35 06:15 WBC RBC Hgb Hct 43.9 H RDW 15.3 H Plt Count Lymph % (Auto) [place] % (Auto) Lymph # (Auto) [place] # (Auto) Seg Neutrophils % Seg Neuts % (Manual) Lymphocytes % (Manual) Monocytes % (Manual) Seg Neutrophils # Seg Neutrophils # Man Monocytes # (Manual) PT INR D-Dimer Heparin Anti-Xa Level ABG pH POC ABG pCO2 POC ABG pO2 ABG Hemoglobin ABG Oxyhemoglobin ABG Sodium ABG Potassium ABG Chloride ABG Glucose Carboxyhemoglobin Sodium 151 H D Potassium Chloride 116.8 H Carbon Dioxide 18 L BUN 64 H Creatinine 2.1 H Glucose 148 H POC Glucose Hemoglobin A1c Lactic Acid Calcium 7.3 L Phosphorus Magnesium Ferritin AST ALT Lactate Dehydrogenase C-Reactive Protein 38.00 H Total Protein Albumin Arterial Blood Glucose Arterial Blood Ionized Calcium Urine WBC (Auto) > 182.0 H U Epithel Cells (Auto) 24.0 H Urine Creatinine Coronavirus (PCR) 11/14/20 11/14/20 11/14/20 06:15 06:15 12:01 WBC RBC Hgb Hct RDW Plt Count Lymph % (Auto) [place] % (Auto) Lymph # (Auto) [place] # (Auto) Seg Neutrophils % Seg Neuts % (Manual) Lymphocytes % (Manual) Monocytes % (Manual) Seg Neutrophils # Seg Neutrophils # Man Monocytes # (Manual) PT INR D-Dimer Heparin Anti-Xa Level 1.16 H ABG pH POC ABG pCO2 POC ABG pO2 ABG Hemoglobin ABG Oxyhemoglobin ABG Sodium ABG Potassium ABG Chloride ABG Glucose Carboxyhemoglobin Sodium Potassium Chloride Carbon Dioxide BUN Creatinine Glucose POC Glucose 107 H Hemoglobin A1c Lactic Acid Calcium Phosphorus Magnesium Ferritin AST ALT Lactate Dehydrogenase C-Reactive Protein Total Protein Albumin Arterial Blood Glucose Arterial Blood Ionized Calcium Urine WBC (Auto) U Epithel Cells (Auto) Urine Creatinine 80.2 H Coronavirus (PCR) 11/14/20 11/14/20 11/14/20 17:18 23:00 23:25 WBC RBC Hgb Hct RDW Plt Count Lymph % (Auto) [place] % (Auto) Lymph # (Auto) [place] # (Auto) Seg Neutrophils % Seg Neuts % (Manual) Lymphocytes % (Manual) Monocytes % (Manual) Seg Neutrophils # Seg Neutrophils # Man Monocytes # (Manual) PT INR D-Dimer Heparin Anti-Xa Level 0.96 H ABG pH POC ABG pCO2 POC ABG pO2 ABG Hemoglobin ABG Oxyhemoglobin ABG Sodium ABG Potassium ABG Chloride ABG Glucose Carboxyhemoglobin Sodium Potassium Chloride Carbon Dioxide BUN Creatinine Glucose POC Glucose 173 H 158 H Hemoglobin A1c Lactic Acid Calcium Phosphorus Magnesium Ferritin AST ALT Lactate Dehydrogenase C-Reactive Protein Total Protein Albumin Arterial Blood Glucose Arterial Blood Ionized Calcium Urine WBC (Auto) U Epithel Cells (Auto) Urine Creatinine Coronavirus (PCR) 11/15/20 11/15/20 11/15/20 01:45 04:57 04:57 WBC RBC Hgb Hct RDW 16.2 H Plt Count Lymph % (Auto) [place] % (Auto) Lymph # (Auto) [place] # (Auto) Seg Neutrophils % Seg Neuts % (Manual) Lymphocytes % (Manual) Monocytes % (Manual) Seg Neutrophils # Seg Neutrophils # Man Monocytes # (Manual) PT INR D-Dimer Heparin Anti-Xa Level ABG pH 7.246 L POC ABG pCO2 28.4 L POC ABG pO2 ABG Hemoglobin ABG Oxyhemoglobin ABG Sodium ABG Potassium ABG Chloride 116.0 H ABG Glucose 164 H Carboxyhemoglobin Sodium 147 H Potassium Chloride 114.0 H Carbon Dioxide 16 L BUN 68 H Creatinine 2.4 H Glucose 148 H POC Glucose Hemoglobin A1c Lactic Acid Calcium 7.3 L Phosphorus Magnesium Ferritin AST 395 H ALT 396 H Lactate Dehydrogenase 596 H C-Reactive Protein 34.50 H Total Protein 5.1 L Albumin 2.1 L Arterial Blood Glucose 164 H Arterial Blood Ionized Calcium 4.3 L Urine WBC (Auto) U Epithel Cells (Auto) Urine Creatinine Coronavirus (PCR) 11/15/20 11/15/20 11/15/20 04:57 04:57 05:20 WBC RBC Hgb Hct RDW Plt Count Lymph % (Auto) [place] % (Auto) Lymph # (Auto) [place] # (Auto) Seg Neutrophils % Seg Neuts % (Manual) Lymphocytes % (Manual) Monocytes % (Manual) Seg Neutrophils # Seg Neutrophils # Man Monocytes # (Manual) PT INR D-Dimer 3313.42 H Heparin Anti-Xa Level 0.81 H ABG pH POC ABG pCO2 POC ABG pO2 ABG Hemoglobin ABG Oxyhemoglobin ABG Sodium ABG Potassium ABG Chloride ABG Glucose Carboxyhemoglobin Sodium Potassium Chloride Carbon Dioxide BUN Creatinine Glucose POC Glucose 124 H Hemoglobin A1c Lactic Acid 3.00 H* Calcium Phosphorus Magnesium Ferritin AST ALT Lactate Dehydrogenase C-Reactive Protein Total Protein Albumin Arterial Blood Glucose Arterial Blood Ionized Calcium Urine WBC (Auto) U Epithel Cells (Auto) Urine Creatinine Coronavirus (PCR) 11/15/20 11/15/20 11/15/20 08:26 08:26 11:34 WBC RBC Hgb Hct RDW Plt Count Lymph % (Auto) [place] % (Auto) Lymph # (Auto) [place] # (Auto) Seg Neutrophils % Seg Neuts % (Manual) Lymphocytes % (Manual) Monocytes % (Manual) Seg Neutrophils # Seg Neutrophils # Man Monocytes # (Manual) PT INR D-Dimer Heparin Anti-Xa Level ABG pH POC ABG pCO2 POC ABG pO2 ABG Hemoglobin ABG Oxyhemoglobin ABG Sodium ABG Potassium ABG Chloride ABG Glucose Carboxyhemoglobin Sodium Potassium Chloride Carbon Dioxide BUN Creatinine Glucose POC Glucose 113 H Hemoglobin A1c Lactic Acid 2.60 H* Calcium Phosphorus Magnesium Ferritin 452.8 H AST ALT Lactate Dehydrogenase C-Reactive Protein Total Protein Albumin Arterial Blood Glucose Arterial Blood Ionized Calcium Urine WBC (Auto) U Epithel Cells (Auto) Urine Creatinine Coronavirus (PCR) 11/15/20 11/15/20 11/16/20 16:43 23:16 03:39 WBC RBC Hgb Hct RDW Plt Count Lymph % (Auto) [place] % (Auto) Lymph # (Auto) [place] # (Auto) Seg Neutrophils % Seg Neuts % (Manual) Lymphocytes % (Manual) Monocytes % (Manual) Seg Neutrophils # Seg Neutrophils # Man Monocytes # (Manual) PT INR D-Dimer Heparin Anti-Xa Level ABG pH 7.261 L POC ABG pCO2 31.2 L POC ABG pO2 117.3 H ABG Hemoglobin ABG Oxyhemoglobin ABG Sodium 135.8 L ABG Potassium ABG Chloride 112.0 H ABG Glucose 148 H Carboxyhemoglobin 0.4 L Sodium Potassium Chloride Carbon Dioxide BUN Creatinine Glucose POC Glucose 107 H 113 H Hemoglobin A1c Lactic Acid Calcium Phosphorus Magnesium Ferritin AST ALT Lactate Dehydrogenase C-Reactive Protein Total Protein Albumin Arterial Blood Glucose 148 H Arterial Blood Ionized Calcium 4.1 L Urine WBC (Auto) U Epithel Cells (Auto) Urine Creatinine Coronavirus (PCR) 11/16/20 11/16/20 11/16/20 04:51 11:28 17:15 WBC RBC Hgb Hct RDW Plt Count Lymph % (Auto) [place] % (Auto) Lymph # (Auto) [place] # (Auto) Seg Neutrophils % Seg Neuts % (Manual) Lymphocytes % (Manual) Monocytes % (Manual) Seg Neutrophils # Seg Neutrophils # Man Monocytes # (Manual) PT INR D-Dimer Heparin Anti-Xa Level ABG pH POC ABG pCO2 POC ABG pO2 ABG Hemoglobin ABG Oxyhemoglobin ABG Sodium ABG Potassium ABG Chloride ABG Glucose Carboxyhemoglobin Sodium Potassium Chloride Carbon Dioxide BUN Creatinine Glucose POC Glucose 119 H 144 H 139 H Hemoglobin A1c Lactic Acid Calcium Phosphorus Magnesium Ferritin AST ALT Lactate Dehydrogenase C-Reactive Protein Total Protein Albumin Arterial Blood Glucose Arterial Blood Ionized Calcium Urine WBC (Auto) U Epithel Cells (Auto) Urine Creatinine Coronavirus (PCR) 11/16/20 11/16/20 11/16/20 23:50 Unknown Unknown WBC RBC Hgb Hct RDW Plt Count Lymph % (Auto) [place] % (Auto) Lymph # (Auto) [place] # (Auto) Seg Neutrophils % Seg Neuts % (Manual) Lymphocytes % (Manual) Monocytes % (Manual) Seg Neutrophils # Seg Neutrophils # Man Monocytes # (Manual) PT INR D-Dimer Heparin Anti-Xa Level ABG pH POC ABG pCO2 POC ABG pO2 ABG Hemoglobin ABG Oxyhemoglobin ABG Sodium ABG Potassium ABG Chloride ABG Glucose Carboxyhemoglobin Sodium Potassium 3.5 L Chloride 109.7 H Carbon Dioxide 15 L BUN 65 H Creatinine 2.2 H Glucose 174 H POC Glucose 132 H Hemoglobin A1c Lactic Acid 2.10 H* Calcium 6.1 L D Phosphorus Magnesium Ferritin AST 171 H ALT 268 H Lactate Dehydrogenase C-Reactive Protein Total Protein 4.3 L Albumin 1.9 L Arterial Blood Glucose Arterial Blood Ionized Calcium Urine WBC (Auto) U Epithel Cells (Auto) Urine Creatinine Coronavirus (PCR) 11/17/20 11/17/20 11/17/20 03:14 04:00 05:09 WBC RBC Hgb Hct RDW Plt Count 123 L Lymph % (Auto) [place] % (Auto) Lymph # (Auto) [place] # (Auto) Seg Neutrophils % Seg Neuts % (Manual) Lymphocytes % (Manual) Monocytes % (Manual) Seg Neutrophils # Seg Neutrophils # Man Monocytes # (Manual) PT INR D-Dimer Heparin Anti-Xa Level ABG pH 7.498 H POC ABG pCO2 27.2 L POC ABG pO2 110.6 H ABG Hemoglobin 11.6 L ABG Oxyhemoglobin ABG Sodium 135.4 L ABG Potassium ABG Chloride ABG Glucose 131 H Carboxyhemoglobin Sodium Potassium Chloride Carbon Dioxide BUN Creatinine Glucose POC Glucose 119 H Hemoglobin A1c Lactic Acid Calcium Phosphorus Magnesium Ferritin AST ALT Lactate Dehydrogenase C-Reactive Protein Total Protein Albumin Arterial Blood Glucose 131 H Arterial Blood Ionized Calcium 3.7 L Urine WBC (Auto) U Epithel Cells (Auto) Urine Creatinine Coronavirus (PCR) 11/17/20 11/17/20 11/17/20 09:59 09:59 09:59 WBC RBC Hgb Hct RDW Plt Count Lymph % (Auto) [place] % (Auto) Lymph # (Auto) [place] # (Auto) Seg Neutrophils % Seg Neuts % (Manual) Lymphocytes % (Manual) Monocytes % (Manual) Seg Neutrophils # Seg Neutrophils # Man Monocytes # (Manual) PT INR D-Dimer 1401.08 H Heparin Anti-Xa Level ABG pH POC ABG pCO2 POC ABG pO2 ABG Hemoglobin ABG Oxyhemoglobin ABG Sodium ABG Potassium ABG Chloride ABG Glucose Carboxyhemoglobin Sodium Potassium Chloride Carbon Dioxide BUN Creatinine Glucose 127 H POC Glucose Hemoglobin A1c Lactic Acid Calcium Phosphorus Magnesium Ferritin 224.1 H AST ALT Lactate Dehydrogenase 515 H C-Reactive Protein 4.80 H Total Protein Albumin Arterial Blood Glucose Arterial Blood Ionized Calcium Urine WBC (Auto) U Epithel Cells (Auto) Urine Creatinine Coronavirus (PCR) 11/17/20 11/17/20 11/17/20 11:28 16:26 18:00 WBC RBC Hgb Hct RDW Plt Count Lymph % (Auto) [place] % (Auto) Lymph # (Auto) [place] # (Auto) Seg Neutrophils % Seg Neuts % (Manual) Lymphocytes % (Manual) Monocytes % (Manual) Seg Neutrophils # Seg Neutrophils # Man Monocytes # (Manual) PT INR D-Dimer Heparin Anti-Xa Level 0.10 L ABG pH POC ABG pCO2 POC ABG pO2 ABG Hemoglobin ABG Oxyhemoglobin ABG Sodium ABG Potassium ABG Chloride ABG Glucose Carboxyhemoglobin Sodium Potassium Chloride Carbon Dioxide BUN Creatinine Glucose POC Glucose 114 H 121 H Hemoglobin A1c Lactic Acid Calcium Phosphorus Magnesium Ferritin AST ALT Lactate Dehydrogenase C-Reactive Protein Total Protein Albumin Arterial Blood Glucose Arterial Blood Ionized Calcium Urine WBC (Auto) U Epithel Cells (Auto) Urine Creatinine Coronavirus (PCR) 11/17/20 11/17/20 11/18/20 21:37 Unknown 02:11 WBC RBC Hgb Hct RDW Plt Count Lymph % (Auto) [place] % (Auto) Lymph # (Auto) [place] # (Auto) Seg Neutrophils % Seg Neuts % (Manual) Lymphocytes % (Manual) Monocytes % (Manual) Seg Neutrophils # Seg Neutrophils # Man Monocytes # (Manual) PT INR D-Dimer Heparin Anti-Xa Level ABG pH POC ABG pCO2 POC ABG pO2 ABG Hemoglobin ABG Oxyhemoglobin ABG Sodium ABG Potassium ABG Chloride ABG Glucose Carboxyhemoglobin Sodium 146 H D Potassium 3.5 L Chloride Carbon Dioxide BUN 67 H 62 H Creatinine 1.8 H 1.7 H Glucose 129 H 109 H POC Glucose 118 H Hemoglobin A1c Lactic Acid Calcium 6.5 L 5.7 L* Phosphorus Magnesium 1.20 L Ferritin AST ALT Lactate Dehydrogenase C-Reactive Protein Total Protein Albumin Arterial Blood Glucose Arterial Blood Ionized Calcium Urine WBC (Auto) U Epithel Cells (Auto) Urine Creatinine Coronavirus (PCR) 11/18/20 11/18/20 11/18/20 02:38 04:44 17:09 WBC RBC Hgb Hct RDW Plt Count Lymph % (Auto) [place] % (Auto) Lymph # (Auto) [place] # (Auto) Seg Neutrophils % Seg Neuts % (Manual) Lymphocytes % (Manual) Monocytes % (Manual) Seg Neutrophils # Seg Neutrophils # Man Monocytes # (Manual) PT INR D-Dimer Heparin Anti-Xa Level ABG pH 7.565 H POC ABG pCO2 30.4 L POC ABG pO2 72.0 L ABG Hemoglobin 11.4 L ABG Oxyhemoglobin ABG Sodium 134.1 L ABG Potassium 2.9 L ABG Chloride ABG Glucose 110 H Carboxyhemoglobin 0.3 L Sodium Potassium Chloride Carbon Dioxide BUN Creatinine Glucose POC Glucose 109 H 125 H Hemoglobin A1c Lactic Acid Calcium Phosphorus Magnesium Ferritin AST ALT Lactate Dehydrogenase C-Reactive Protein Total Protein Albumin Arterial Blood Glucose 110 H Arterial Blood Ionized Calcium 3.4 L Urine WBC (Auto) U Epithel Cells (Auto) Urine Creatinine Coronavirus (PCR) 11/19/20 11/19/20 11/19/20 03:19 04:00 04:00 WBC 14.3 H RBC 3.61 L Hgb Hct RDW Plt Count Lymph % (Auto) [place] % (Auto) Lymph # (Auto) [place] # (Auto) Seg Neutrophils % Seg Neuts % (Manual) 77.0 H Lymphocytes % (Manual) 13.0 L Monocytes % (Manual) 10.0 H Seg Neutrophils # Seg Neutrophils # Man 11.0 H Monocytes # (Manual) 1.4 H PT INR D-Dimer Heparin Anti-Xa Level ABG pH 7.577 H POC ABG pCO2 28.0 L POC ABG pO2 57.4 L ABG Hemoglobin 10.6 L ABG Oxyhemoglobin 90.3 L ABG Sodium ABG Potassium 2.8 L ABG Chloride ABG Glucose 102 H Carboxyhemoglobin 0.3 L Sodium Potassium 2.9 L* D Chloride Carbon Dioxide 31 H BUN 51 H Creatinine Glucose POC Glucose Hemoglobin A1c Lactic Acid Calcium 6.7 L D Phosphorus 1.90 L Magnesium Ferritin AST ALT Lactate Dehydrogenase 634 H C-Reactive Protein 1.40 H Total Protein Albumin Arterial Blood Glucose 102 H Arterial Blood Ionized Calcium 3.7 L Urine WBC (Auto) U Epithel Cells (Auto) Urine Creatinine Coronavirus (PCR) 11/19/20 11/19/20 04:00 10:33 WBC RBC Hgb Hct RDW Plt Count Lymph % (Auto) [place] % (Auto) Lymph # (Auto) [place] # (Auto) Seg Neutrophils % Seg Neuts % (Manual) Lymphocytes % (Manual) Monocytes % (Manual) Seg Neutrophils # Seg Neutrophils # Man Monocytes # (Manual) PT INR D-Dimer 1808.23 H Heparin Anti-Xa Level ABG pH POC ABG pCO2 POC ABG pO2 ABG Hemoglobin ABG Oxyhemoglobin ABG Sodium ABG Potassium ABG Chloride ABG Glucose Carboxyhemoglobin Sodium Potassium Chloride Carbon Dioxide BUN Creatinine Glucose POC Glucose 109 H Hemoglobin A1c Lactic Acid Calcium Phosphorus Magnesium Ferritin AST ALT Lactate Dehydrogenase C-Reactive Protein Total Protein Albumin Arterial Blood Glucose Arterial Blood Ionized Calcium Urine WBC (Auto) U Epithel Cells (Auto) Urine Creatinine Coronavirus (PCR) Chest x-ray: image reviewed (no new infiltrates) Allied health notes reviewed: nursing
[2020-11-19] MEDS: dexAMETHasone 4 MG/ML VIAL IV SCH (13:26)
--- NOTE | 2020-11-19 13:37 | Progress Note ---
Assessment and Plan 1. Acute kidney injury: KATLYN in the setting of severe Covid infection. Patient is also hypotensive. Received IV contrast 11/13. CT abdomen showed non-obstructive 7 mm distal left ureteral stone. Low FeNa. Monitor renal function. Creatinine level improving. Avoid nephrotoxic agents. Meds dosage based on GFR. 2. FEN: Hypernatremia, improving, on Metolazone, monitor. Hyperchloremic metabolic acidosis, improved, monitor. Hypokalemia, replete K as needed, monitor. Replete Phos. Monitor lytes and volume status. 3. Acute respiratory failure with hypoxemia: 2/2 Covid PNA. Currently on vent, wean as tolerated. 4. Shock: On Levophed. Monitor. 5. Covid PNA: Followed by ID. 6. L ureteral stone: S/p b/l stent. Seen by Urologist. 7. Elevated ALT & AST: Trend. 8. DM type 2: Monitor. Subjective: Patient was seen and examined at the bedside. Examination: General appearance: well-developed, appears stated age, intubated on vent HEENT: atraumatic, no icterus Neck: trachea midline Respiratory: MV sounds Heart: S1S2, regular, no murmur Abdomen: soft, bowel sounds heard, NT Integumentary: no obvious rash Neurologic: not responding Ext: dependent edema noted : Lind catheter Subjective Date of service: 11/19/20 Principal diagnosis: Ac hypoxemic resp failure; COVID-19 infxn; Pneumonia; KATLYN; AMS; Sepsis Objective - Vital Signs Vital signs: Vital Signs - 12hr 11/19/20 11/19/20 11/19/20 01:45 02:00 02:15 Temperature Pulse Rate 104 H 105 H 104 H Pulse Rate [ From Monitor] Respiratory 17 24 24 Rate Blood Pressure 123/70 88/61 92/59 O2 Sat by Pulse 92 93 Oximetry 11/19/20 11/19/20 11/19/20 02:30 02:45 03:00 Temperature Pulse Rate 103 H 102 H 104 H Pulse Rate [ From Monitor] Respiratory 26 H 26 H 24 Rate Blood Pressure 91/61 96/60 100/58 O2 Sat by Pulse 94 94 94 Oximetry 11/19/20 11/19/20 11/19/20 03:15 03:30 03:40 Temperature Pulse Rate 102 H 99 H 98 H Pulse Rate [ From Monitor] Respiratory 27 H 22 Rate Blood Pressure 114/56 118/56 118/56 O2 Sat by Pulse 94 94 94 Oximetry 11/19/20 11/19/20 11/19/20 03:45 03:47 04:00 Temperature 98.8 F Pulse Rate 103 H 103 H Pulse Rate [ 95 H From Monitor] Respiratory 26 H 20 Rate Blood Pressure 120/52 115/58 O2 Sat by Pulse 94 97 Oximetry 11/19/20 11/19/20 11/19/20 04:15 04:31 04:45 Temperature Pulse Rate 103 H 104 H 104 H Pulse Rate [ From Monitor] Respiratory 26 H 26 H 22 Rate Blood Pressure 114/55 109/53 111/55 O2 Sat by Pulse 93 93 93 Oximetry 11/19/20 11/19/20 11/19/20 05:00 05:15 05:30 Temperature Pulse Rate 103 H 103 H 99 H Pulse Rate [ From Monitor] Respiratory 25 H 27 H 27 H Rate Blood Pressure 113/54 100/52 95/50 O2 Sat by Pulse 94 93 94 Oximetry 11/19/20 11/19/20 11/19/20 05:45 06:00 06:15 Temperature Pulse Rate 104 H 104 H 104 H Pulse Rate [ From Monitor] Respiratory 27 H 27 H 27 H Rate Blood Pressure 92/53 109/49 95/44 O2 Sat by Pulse 94 95 95 Oximetry 11/19/20 11/19/20 11/19/20 06:30 06:45 07:00 Temperature Pulse Rate 102 H 105 H 105 H Pulse Rate [ From Monitor] Respiratory 28 H 28 H 28 H Rate Blood Pressure 97/50 84/51 78/48 O2 Sat by Pulse 93 93 93 Oximetry 11/19/20 11/19/20 11/19/20 07:15 07:31 07:45 Temperature Pulse Rate 105 H 108 H 110 H Pulse Rate [ From Monitor] Respiratory 25 H 25 H 27 H Rate Blood Pressure 87/48 96/58 86/50 O2 Sat by Pulse 92 79 L Oximetry 11/19/20 11/19/20 11/19/20 08:00 08:01 08:12 Temperature 98.2 F Pulse Rate 123 H 113 H 96 H Pulse Rate [ From Monitor] Respiratory 28 H Rate Blood Pressure 72/54 127/71 O2 Sat by Pulse 85 97 Oximetry 11/19/20 11/19/20 11/19/20 08:15 08:31 08:45 Temperature Pulse Rate 122 H 117 H 121 H Pulse Rate [ From Monitor] Respiratory 30 H 26 H 37 H Rate Blood Pressure 123/78 98/71 O2 Sat by Pulse 97 98 96 Oximetry 11/19/20 11/19/20 11/19/20 09:00 09:15 09:31 Temperature Pulse Rate 123 H 124 H 122 H Pulse Rate [ From Monitor] Respiratory 57 H 30 H 54 H Rate Blood Pressure 159/67 153/69 139/52 O2 Sat by Pulse 95 93 94 Oximetry 11/19/20 11/19/20 11/19/20 09:45 10:00 10:15 Temperature Pulse Rate 123 H 122 H 123 H Pulse Rate [ From Monitor] Respiratory 56 H 54 H 55 H Rate Blood Pressure 138/54 112/57 117/75 O2 Sat by Pulse 92 95 95 Oximetry 11/19/20 11/19/20 11/19/20 10:30 10:45 11:01 Temperature Pulse Rate 120 H 119 H 119 H Pulse Rate [ From Monitor] Respiratory 53 H 58 H 52 H Rate Blood Pressure 128/94 128/94 82/61 O2 Sat by Pulse 95 84 97 Oximetry 11/19/20 11/19/20 11/19/20 11:15 11:30 11:31 Temperature Pulse Rate 121 H 121 H Pulse Rate [ From Monitor] Respiratory 55 H 28 H 59 H Rate Blood Pressure 97/64 82/39 O2 Sat by Pulse 97 98 Oximetry 11/19/20 11/19/20 11/19/20 11:45 12:01 12:15 Temperature Pulse Rate 121 H 117 H 114 H Pulse Rate [ From Monitor] Respiratory 53 H 54 H 56 H Rate Blood Pressure 82/39 101/62 101/62 O2 Sat by Pulse 98 98 98 Oximetry 11/19/20 11/19/20 11/19/20 12:30 12:45 12:49 Temperature Pulse Rate 114 H 113 H 110 H Pulse Rate [ From Monitor] Respiratory 67 H 24 Rate Blood Pressure 124/76 146/62 146/62 O2 Sat by Pulse 99 99 99 Oximetry 11/19/20 11/19/20 13:01 13:15 Temperature Pulse Rate 110 H 111 H Pulse Rate [ From Monitor] Respiratory 46 H 62 H Rate Blood Pressure 148/59 139/62 O2 Sat by Pulse 97 98 Oximetry - Lab 11/19/20 04:00 11/19/20 04:00 Most recent lab results ABG pH 7.577 (7.320-7.450) H 11/19/20 03:19 ABG O2 Saturation 90.8 (0-100) 11/19/20 03:19 Calcium 6.7 mg/dL (8.4-10.2) L D 11/19/20 04:00 Phosphorus 1.90 mg/dL (2.5-4.5) L 11/19/20 04:00 Magnesium 1.80 mg/dL (1.7-2.3) 11/19/20 04:00 Urine Creatinine 80.2 mg/dL (0.1-20.0) H 11/14/20 06:15 Urine Sodium 28 mmol/L 11/14/20 06:15 Medications & Allergies - Medications Allergies/Adverse Reactions: Allergies morphine Adverse Reaction (Verified 05/26/13 19:22) Nausea Home Medications: Home Medications Medication Instructions Recorded Confirmed Last Taken Type Acetaminophen [Tylenol] 325 mg PO DAILY #10 tablet 05/26/13 10/17/14 10/16/14 Rx Baclofen [Lioresal] 10 mg PO TID PRN 05/26/13 10/17/14 10/16/14 History Diazepam [Valium] 10 mg PO BID 05/26/13 10/17/14 10/16/14 History PARoxetine [Paxil] 10 mg PO DAILY 05/26/13 10/17/14 10/16/14 19:00 History Quetiapine Fumarate [SEROquel XR] 200 mg PO DAILY 05/26/13 10/17/14 10/16/14 History rOPINIRole [Requip] 1 mg PO QHS 05/26/13 10/17/14 10/16/14 19:00 History QUEtiapine [SEROquel] 200 mg PO QHS 05/28/13 10/17/14 10/16/14 19:00 History Famotidine [Pepcid] 10 mg PO BID #60 tablet 06/02/13 10/17/14 10/16/14 Rx levoFLOXacin [Levaquin] 750 mg PO QDAY #7 tablet 06/02/13 10/17/14 10/16/14 Rx metroNIDAZOLE [Flagyl] 500 mg PO Q8HR #30 tablet 06/02/13 10/17/14 10/16/14 Rx Hydromorphone HCl [Dilaudid] 4 mg PO 10/17/14 10/17/14 10/16/14 History Oxycodone HCl/Acetaminophen 1 each PO Q6HR PRN 10/17/14 10/17/14 10/16/14 History [Percocet 10-325 mg] Oxycodone HCl/Acetaminophen 1 each PO Q6HR PRN #30 tablet 10/18/14 Unknown Rx [Percocet 10-325 mg] Active Medications: Generic Name Dose Route Start Last Admin Trade Name Freq PRN Reason Stop Dose Admin Acetaminophen 650 mg 11/11/20 22:11 11/19/20 11:30 Acetaminophen 325 Mg Tab PO 650 mg Q4H PRN Administration Pain MILD(1-3)/Fever >100.5/ERAZO Albuterol 2.5 mg 11/13/20 07:40 Albuterol 2.5 Mg/3 Ml Nebu IH Q4HRT PRN Shortness Of Breath Lipase/Protease/Amylase 1 each 11/13/20 17:32 Lipase 10,500/Protease 25,000/Amylase 43,750 (Units) Dr Weiss FEEDTUBE PRN PRN For Clogged Feeding Tube Ascorbic Acid 500 mg 11/13/20 22:00 11/19/20 10:08 Ascorbic Acid 500 Mg Tab PO 500 mg BID CARLOS Administration Baclofen 10 mg 11/11/20 22:09 Baclofen 10 Mg Tab PO TID PRN MUSCLE SPASMS & PAIN Calcium Carbonate/Glycine 1,250 mg 11/19/20 10:00 11/19/20 10:52 Calcium Carbonate 1250 Mg/5 Ml Oral Liqd FEEDTUBE 11/21/20 23:59 1,250 mg QDAY CARLOS Administration Dexamethasone 6 mg 11/13/20 10:00 11/19/20 13:26 Dexamethasone 4 Mg/Ml Vial IV 11/22/20 10:01 6 mg Q24HR CARLOS Administration Dextrose 50 ml 11/13/20 16:43 11/14/20 01:12 Dextrose 50% In Water (25gm) 50 Ml Syringe IV 50 ml Q30MIN PRN Administration Hypoglycemia Protocol Fentanyl 50 mcg 11/13/20 05:33 Fentanyl 100 Mcg/2 Ml Inj IV Q10MIN PRN ANALGESIA Heparin Sodium (Porcine) 3,000 unit 11/13/20 05:04 Heparin 10,000 Units/10 Ml Vial 40 unit/kg (3000 unit) IV Q6H PRN Anti-Xa Assay < 0.1 units/ml Hydromorphone HCl 0.5 mg 11/11/20 22:11 Hydromorphone 1 Mg/1 Ml Inj IV Q3H PRN Pain , Severe (7-10) Hydrophilic Ointment 1 applic 11/13/20 05:33 Lip Therapy Vaseline TP Q2HR PRN Dry Lips Heparin Sodium/Sodium Chloride 25,000 unit in 500 mls @ 23 mls/hr 11/13/20 06:00 11/18/20 22:55 Heparin/ 0.45% Nacl-25,000 Unit/500 Ml IV 900 units/hr TITR CARLOS 18 mls/hr Titration Protocol 1,150 UNITS/HR Fentanyl Citrate 2,000 mcg in 100 mls @ 3.81 mls/hr 11/13/20 06:00 11/19/20 08:00 Fentanyl Drip Premix IV 0 mcg/kg/hr TITR CARLOS 0 mls/hr Titration Protocol 1 MCG/KG/HR NORepinephrine/NS 8 MG-250 ML 8 mg in 250 mls @ 3.75 mls/hr 11/13/20 15:00 11/19/20 13:15 Norepinephrine/Ns 8 Mg-250 Ml (Double Conc) IV 4 mcg/min TITRATE CARLOS 7.5 mls/hr Titration Protocol 2 MCG/MIN Potassium Phosphate 40 mmol/ 513.3333 mls @ 83 mls/hr 11/19/20 08:00 11/19/20 10:07 Sodium Chloride IV 11/19/20 14:11 83 mls/hr ONCE ONE Administration Vasopressin 20 unit/ Sodium 101 mls @ 9.09 mls/hr 11/19/20 09:00 11/19/20 11:38 Chloride IV 0.03 units/min TITR CARLOS 9.09 mls/hr Administration Protocol 0.03 UNITS/MIN Insulin Human Regular 0 units 11/13/20 17:00 11/19/20 10:52 Insulin Regular, Human 100 Units/1 Ml SUB-Q Not Given Q6H CARLOS Protocol Lansoprazole 30 mg 11/19/20 10:00 11/19/20 10:08 Lansoprazole 30 Mg Solutab FEEDTUBE 30 mg BID CARLOS Administration Metoclopramide HCl 5 mg 11/15/20 19:00 11/19/20 13:18 Metoclopramide 10 Mg/2 Ml Inj IV 5 mg Q6H CARLOS Administration Metolazone 5 mg 11/18/20 15:00 11/19/20 10:17 Metolazone 5 Mg Tab PO Not Given QDAY CALROS Multi-Ingred Cream/Lotion/Oil/Oint 1 applic 11/13/20 05:33 Mineral Oil/Petrolatum, White Ophth Oint 3.5 Gm OU Q4HR PRN Dry Eye(s) Ondansetron HCl 4 mg 11/11/20 22:11 Ondansetron 4 Mg/2 Ml Inj IV Q3H PRN Nausea And Vomiting Oxycodone/Acetaminophen 1 tab 11/11/20 22:11 Oxycodone /Acetaminophen 5-325mg Tab PO Q6H PRN Pain, Moderate (4-6) Paroxetine HCl 10 mg 11/12/20 10:00 11/19/20 10:10 Paroxetine 10 Mg Tab PO Not Given DAILY CARLOS Ropinirole HCl 1 mg 11/12/20 22:00 11/18/20 21:31 Ropinirole 1 Mg Tab PO 1 mg QHS CARLOS Administration Simple Syrup 15 ml 11/13/20 17:32 Simple Syrup 15 Ml FEEDTUBE PRN PRN Hypoglycemia Simple Syrup 30 ml 11/13/20 17:32 Simple Syrup 15 Ml FEEDTUBE PRN PRN Hypoglycemia Sodium Bicarbonate 325 mg 11/13/20 17:32 Sodium Bicarbonate 325 Mg Tab FEEDTUBE PRN PRN For Clogged Feeding Tube Sodium Chloride 10 ml 11/12/20 10:00 11/19/20 10:10 Sodium Chloride 0.9% 10 Ml Flush Syringe IV 10 ml BID CARLOS Administration Sodium Chloride 10 ml 11/11/20 22:11 Sodium Chloride 0.9% 10 Ml Flush Syringe IV PRN PRN LINE FLUSH Zinc Sulfate 220 mg 11/13/20 22:00 11/19/20 10:08 Zinc Sulfate 220 Mg Cap PO 220 mg BID CARLOS Administration
[2020-11-19] MEDS ORDERED: POTASSIUM CHLORIDE 20 MEQ PACKET FEEDTUBE NR (13:46)
[2020-11-19] MEDS ORDERED: MAGNESIUM SULFATE 2 GM/50 ML BAG IV ONE (15:00)
--- NOTE | 2020-11-19 15:22 | Progress Note ---
Assessment and Plan Cultures: Blood culture no growth so far Respiratory culture: MRSA Covid PCR: Positive A/P: 85-year-old female past medical history obesity, chronic low back pain, depression admitted with COVID-19 #Severe COVID-19 pneumonia: Patient presented with a week of symptoms, chest x- ray with diffuse bilateral infiltrates, admission O2 sats 89-90% on room air. Inflammatory markers elevated. Normal procalcitonin. #Acute hypoxemic respiratory failure: Likely secondary to COVID-19 infection. Currently on the vent. Her inflammatory markers are improving significantly. #KATLYN: renally dose medications. not a candidate for remdesivir #nephrolithiasis: with associated hydronephrosis. Initial UA was normal, second was was most likely highly contaminated given large amounts of blood and epithelial cells. Given lack of signs of urinary tract infection on imaging this was most likely caused by inflammation. Recs: -Dexamethasone 6 mg IV/PO daily for 10 days -Was not a candidate for remdesivir on admission due to renal function, likely too late now given elapsed time since infection. -s/p Actemra -Obtain q48-72h inflammatory markers - ferritin, Ddimer, CRP, LDH -Anticoagulation per hospital protocol -Proning as able -Ordered fresh UA today given white count increase -As she has improved without antibiotics, resp culture likely represents colonization of the tube. If she decompensates/spikes new fevers please start vancomycin. Thank you for the consult, we will continue to follow. Discussed with her daughter, Kirstin at bedside as well as Dr. Moran. Araceli Chacon MD [facility] ([facility] O: [phone] F: [phone] Subjective Date of service: 11/19/20 Principal diagnosis: Ac hypoxemic resp failure; COVID-19 infxn; Pneumonia; KATLYN; AMS; Sepsis Interval history: She remains afebrile. White count increased today after being normal for the past few days. Remains on and off pressors. Daughter at bedside. Objective - Exam Narrative Exam: Physical exam deferred to reduce risk of transmission of COVID-19. Please refer to primary team's note. - Constitutional Vitals: Vital Signs Temp Pulse Resp BP Pulse Ox 98.2 F 103 H 62 H 132/57 98 11/19/20 08:00 11/19/20 14:51 08/10/21 13:15 11/19/20 14:51 11/19/20 14:51 Temperature -Last 24 Hours Temperature 98.2 F Temperature 98.8 F Temperature 98.4 F Temperature 98.8 F Temperature 98.8 F - Labs CBC & Chem 7: 11/19/20 04:00 11/19/20 04:00 Labs: Abnormal lab results 11/18/20 11/19/20 11/19/20 Range/Units 17:09 03:19 04:00 WBC 14.3 H (4.5-11.0) K/mm3 RBC 3.61 L (3.65-5.03) M/mm3 Seg Neuts % (Manual) 77.0 H (40.0-70.0) % Lymphocytes % (Manual) 13.0 L (13.4-35.0) % Monocytes % (Manual) 10.0 H (0.0-7.3) % Seg Neutrophils # Man 11.0 H (1.8-7.7) K/mm3 Monocytes # (Manual) 1.4 H (0.0-0.8) K/mm3 D-Dimer (0-234) ng/mlDDU ABG pH 7.577 H (7.320-7.450) POC ABG pCO2 28.0 L (32.0-48.0) mmHg POC ABG pO2 57.4 L (83-108) mmHg ABG Hemoglobin 10.6 L (12.0-17.5) ABG Oxyhemoglobin 90.3 L (94-98) ABG Potassium 2.8 L (3.40-4.50) mmol/L ABG Glucose 102 H (65-95) mg/dL Carboxyhemoglobin 0.3 L (0.5-1.5) Potassium (3.6-5.0) mmol/L Carbon Dioxide (22-30) mmol/L BUN (7-17) mg/dL POC Glucose 125 H (70-105) mg/dL Calcium (8.4-10.2) mg/dL Phosphorus (2.5-4.5) mg/dL Lactate Dehydrogenase (91-180) units/L C-Reactive Protein (0.00-1.30) mg/dL Arterial Blood Glucose 102 H (65-95) mg/dL Arterial Blood Ionized Calcium 3.7 L (4.6-5.3) mg/dL 11/19/20 11/19/20 11/19/20 Range/Units 04:00 04:00 10:33 WBC (4.5-11.0) K/mm3 RBC (3.65-5.03) M/mm3 Seg Neuts % (Manual) (40.0-70.0) % Lymphocytes % (Manual) (13.4-35.0) % Monocytes % (Manual) (0.0-7.3) % Seg Neutrophils # Man (1.8-7.7) K/mm3 Monocytes # (Manual) (0.0-0.8) K/mm3 D-Dimer 1808.23 H (0-234) ng/mlDDU ABG pH (7.320-7.450) POC ABG pCO2 (32.0-48.0) mmHg POC ABG pO2 (83-108) mmHg ABG Hemoglobin (12.0-17.5) ABG Oxyhemoglobin (94-98) ABG Potassium (3.40-4.50) mmol/L ABG Glucose (65-95) mg/dL Carboxyhemoglobin (0.5-1.5) Potassium 2.9 L* D (3.6-5.0) mmol/L Carbon Dioxide 31 H (22-30) mmol/L BUN 51 H (7-17) mg/dL POC Glucose 109 H (70-105) mg/dL Calcium 6.7 L D (8.4-10.2) mg/dL Phosphorus 1.90 L (2.5-4.5) mg/dL Lactate Dehydrogenase 634 H (91-180) units/L C-Reactive Protein 1.40 H (0.00-1.30) mg/dL Arterial Blood Glucose (65-95) mg/dL Arterial Blood Ionized Calcium (4.6-5.3) mg/dL
[2020-11-19] MEDS: PANTOPRAZOLE 80 MG in SODIUM CHLORIDE 0.9% 100 ML IV SCH (16:02)
[2020-11-19] MEDS: HEPARIN/ 0.45% NACL DRIP 25,000 UNIT/500 ML BAG IV SCH (16:07)
[2020-11-19 16:22] LABS: Hemoglobin 8.9 gm/dl (10.1-14.3)
--- NOTE | 2020-11-19 16:49 | Progress Note ---
Assessment and Plan 85-year-old female with Covid pneumonia who presents to the hospital with respiratory distress who had inadvertent left carotid line insertion. Continue heparin drip. No left neck hematoma. Thrombus associated with carotid central line. Patient is sedated due to elevated PEEP and therefore cannot assess for stroke although I am not certain how that would change over. Hemoglobin declining. GI bleed. On Protonix. GI consulted. Unfortunately if heparin drip is discontinued then patient will likely suffer a thrombotic stroke or left carotid occlusion. Not candidate to be taken down to [facility] for left carotid stenting. However, once patient improves, then she will be taken down to the [facility] for left carotid stenting and central line removal. Needs to improve from respiratory perspective prior to any intervention. Will need repeat neck CT angiogram prior to intervention. Subjective Date of service: 11/19/20 Principal diagnosis: Ac hypoxemic resp failure; COVID-19 infxn; Pneumonia; KATLYN; AMS; Sepsis Interval history: Patient is sedated. No hematoma of the left neck. Doing poorly. Hemoglobin declined. Suspected GI bleed. Left carotid central line intact. Objective - Constitutional Vitals: Vital Signs - 12hr 11/19/20 11/19/20 11/19/20 05:00 05:15 05:30 Temperature Pulse Rate 103 H 103 H 99 H Pulse Rate [ From Monitor] Respiratory 25 H 27 H 27 H Rate Respiratory Rate [Neck] Blood Pressure 113/54 100/52 95/50 O2 Sat by Pulse 94 93 94 Oximetry 11/19/20 11/19/20 11/19/20 05:45 06:00 06:15 Temperature Pulse Rate 104 H 104 H 104 H Pulse Rate [ From Monitor] Respiratory 27 H 27 H 27 H Rate Respiratory Rate [Neck] Blood Pressure 92/53 109/49 95/44 O2 Sat by Pulse 94 95 95 Oximetry 11/19/20 11/19/20 11/19/20 06:30 06:45 07:00 Temperature Pulse Rate 102 H 105 H 105 H Pulse Rate [ From Monitor] Respiratory 28 H 28 H 28 H Rate Respiratory Rate [Neck] Blood Pressure 97/50 84/51 78/48 O2 Sat by Pulse 93 93 93 Oximetry 11/19/20 11/19/20 11/19/20 07:15 07:31 07:45 Temperature Pulse Rate 105 H 108 H 110 H Pulse Rate [ From Monitor] Respiratory 25 H 25 H 27 H Rate Respiratory Rate [Neck] Blood Pressure 87/48 96/58 86/50 O2 Sat by Pulse 92 79 L Oximetry 11/19/20 11/19/20 11/19/20 08:00 08:01 08:12 Temperature 98.2 F Pulse Rate 123 H 113 H 96 H Pulse Rate [ 105 H From Monitor] Respiratory 25 H 28 H Rate Respiratory Rate [Neck] Blood Pressure 72/54 127/71 O2 Sat by Pulse 93 85 97 Oximetry 11/19/20 11/19/20 11/19/20 08:15 08:31 08:45 Temperature Pulse Rate 122 H 117 H 121 H Pulse Rate [ From Monitor] Respiratory 30 H 26 H 37 H Rate Respiratory Rate [Neck] Blood Pressure 123/78 98/71 O2 Sat by Pulse 97 98 96 Oximetry 11/19/20 11/19/20 11/19/20 09:00 09:15 09:31 Temperature Pulse Rate 123 H 124 H 122 H Pulse Rate [ From Monitor] Respiratory 57 H 30 H 54 H Rate Respiratory Rate [Neck] Blood Pressure 159/67 153/69 139/52 O2 Sat by Pulse 95 93 94 Oximetry 11/19/20 11/19/20 11/19/20 09:45 10:00 10:15 Temperature Pulse Rate 123 H 122 H 123 H Pulse Rate [ From Monitor] Respiratory 56 H 54 H 55 H Rate Respiratory 23 Rate [Neck] Blood Pressure 138/54 112/57 117/75 O2 Sat by Pulse 92 95 95 Oximetry 11/19/20 11/19/20 11/19/20 10:30 10:45 11:01 Temperature Pulse Rate 120 H 119 H 119 H Pulse Rate [ From Monitor] Respiratory 53 H 58 H 52 H Rate Respiratory Rate [Neck] Blood Pressure 128/94 128/94 82/61 O2 Sat by Pulse 95 84 97 Oximetry 11/19/20 11/19/20 11/19/20 11:15 11:30 11:31 Temperature Pulse Rate 121 H 121 H Pulse Rate [ From Monitor] Respiratory 55 H 28 H 59 H Rate Respiratory Rate [Neck] Blood Pressure 97/64 82/39 O2 Sat by Pulse 97 98 Oximetry 11/19/20 11/19/20 11/19/20 11:45 12:00 12:01 Temperature Pulse Rate 121 H 117 H Pulse Rate [ 111 H From Monitor] Respiratory 53 H 28 H 54 H Rate Respiratory Rate [Neck] Blood Pressure 82/39 101/62 O2 Sat by Pulse 98 99 98 Oximetry 11/19/20 11/19/20 11/19/20 12:15 12:30 12:45 Temperature Pulse Rate 114 H 114 H 113 H Pulse Rate [ From Monitor] Respiratory 56 H 67 H 24 Rate Respiratory Rate [Neck] Blood Pressure 101/62 124/76 146/62 O2 Sat by Pulse 98 99 99 Oximetry 11/19/20 11/19/20 11/19/20 12:49 13:01 13:15 Temperature Pulse Rate 110 H 110 H 111 H Pulse Rate [ From Monitor] Respiratory 46 H 62 H Rate Respiratory Rate [Neck] Blood Pressure 146/62 148/59 139/62 O2 Sat by Pulse 99 97 98 Oximetry 11/19/20 11/19/20 11/19/20 13:30 13:45 14:01 Temperature Pulse Rate 109 H 108 H 107 H Pulse Rate [ From Monitor] Respiratory 24 27 H 29 H Rate Respiratory Rate [Neck] Blood Pressure 156/63 156/63 125/51 O2 Sat by Pulse 97 98 Oximetry 11/19/20 11/19/20 11/19/20 14:15 14:30 14:45 Temperature Pulse Rate 106 H 105 H 104 H Pulse Rate [ From Monitor] Respiratory 26 H 25 H 27 H Rate Respiratory Rate [Neck] Blood Pressure 117/60 134/50 132/57 O2 Sat by Pulse 98 97 Oximetry 11/19/20 11/19/20 11/19/20 14:51 15:01 15:15 Temperature Pulse Rate 103 H 105 H 102 H Pulse Rate [ From Monitor] Respiratory 11 L 26 H Rate Respiratory Rate [Neck] Blood Pressure 132/57 106/74 127/57 O2 Sat by Pulse 98 97 99 Oximetry 11/19/20 11/19/20 11/19/20 15:30 15:45 16:00 Temperature Pulse Rate 101 H 101 H Pulse Rate [ 99 H From Monitor] Respiratory 23 28 H 23 Rate Respiratory Rate [Neck] Blood Pressure 127/58 110/62 O2 Sat by Pulse 99 99 99 Oximetry 11/19/20 11/19/20 11/19/20 16:01 16:15 16:30 Temperature Pulse Rate 99 H 99 H 98 H Pulse Rate [ From Monitor] Respiratory 21 24 23 Rate Respiratory Rate [Neck] Blood Pressure 102/48 100/58 89/50 O2 Sat by Pulse 99 99 Oximetry General appearance: Present: other (Intubated) - EENT ENT: other (Intubated) - Neck Neck: other (No left neck hematoma) - Respiratory Respiratory effort: other (Intubated) - Neurologic Neurologic: other (Intubated) - Psychiatric Psychiatric: other (Intubated) - Labs CBC & Chem 7: 11/19/20 14:10 11/19/20 04:00 Labs: Abnormal lab results 11/18/20 11/19/20 11/19/20 Range/Units 17:09 03:19 04:00 WBC 14.3 H (4.5-11.0) K/mm3 RBC 3.61 L (3.65-5.03) M/mm3 Hgb (10.1-14.3) gm/dl Hct (30.3-42.9) % Seg Neuts % (Manual) 77.0 H (40.0-70.0) % Lymphocytes % (Manual) 13.0 L (13.4-35.0) % Monocytes % (Manual) 10.0 H (0.0-7.3) % Seg Neutrophils # Man 11.0 H (1.8-7.7) K/mm3 Monocytes # (Manual) 1.4 H (0.0-0.8) K/mm3 D-Dimer (0-234) ng/mlDDU ABG pH 7.577 H (7.320-7.450) POC ABG pCO2 28.0 L (32.0-48.0) mmHg POC ABG pO2 57.4 L (83-108) mmHg ABG Hemoglobin 10.6 L (12.0-17.5) ABG Oxyhemoglobin 90.3 L (94-98) ABG Potassium 2.8 L (3.40-4.50) mmol/L ABG Glucose 102 H (65-95) mg/dL Carboxyhemoglobin 0.3 L (0.5-1.5) Potassium (3.6-5.0) mmol/L Carbon Dioxide (22-30) mmol/L BUN (7-17) mg/dL POC Glucose 125 H (70-105) mg/dL Calcium (8.4-10.2) mg/dL Phosphorus (2.5-4.5) mg/dL Lactate Dehydrogenase (91-180) units/L C-Reactive Protein (0.00-1.30) mg/dL Arterial Blood Glucose 102 H (65-95) mg/dL Arterial Blood Ionized Calcium 3.7 L (4.6-5.3) mg/dL 11/19/20 11/19/20 11/19/20 Range/Units 04:00 04:00 10:33 WBC (4.5-11.0) K/mm3 RBC (3.65-5.03) M/mm3 Hgb (10.1-14.3) gm/dl Hct (30.3-42.9) % Seg Neuts % (Manual) (40.0-70.0) % Lymphocytes % (Manual) (13.4-35.0) % Monocytes % (Manual) (0.0-7.3) % Seg Neutrophils # Man (1.8-7.7) K/mm3 Monocytes # (Manual) (0.0-0.8) K/mm3 D-Dimer 1808.23 H (0-234) ng/mlDDU ABG pH (7.320-7.450) POC ABG pCO2 (32.0-48.0) mmHg POC ABG pO2 (83-108) mmHg ABG Hemoglobin (12.0-17.5) ABG Oxyhemoglobin (94-98) ABG Potassium (3.40-4.50) mmol/L ABG Glucose (65-95) mg/dL Carboxyhemoglobin (0.5-1.5) Potassium 2.9 L* D (3.6-5.0) mmol/L Carbon Dioxide 31 H (22-30) mmol/L BUN 51 H (7-17) mg/dL POC Glucose 109 H (70-105) mg/dL Calcium 6.7 L D (8.4-10.2) mg/dL Phosphorus 1.90 L (2.5-4.5) mg/dL Lactate Dehydrogenase 634 H (91-180) units/L C-Reactive Protein 1.40 H (0.00-1.30) mg/dL Arterial Blood Glucose (65-95) mg/dL Arterial Blood Ionized Calcium (4.6-5.3) mg/dL 11/19/20 Range/Units 14:10 WBC (4.5-11.0) K/mm3 RBC (3.65-5.03) M/mm3 Hgb 8.9 L (10.1-14.3) gm/dl Hct 27.0 L (30.3-42.9) % Seg Neuts % (Manual) (40.0-70.0) % Lymphocytes % (Manual) (13.4-35.0) % Monocytes % (Manual) (0.0-7.3) % Seg Neutrophils # Man (1.8-7.7) K/mm3 Monocytes # (Manual) (0.0-0.8) K/mm3 D-Dimer (0-234) ng/mlDDU ABG pH (7.320-7.450) POC ABG pCO2 (32.0-48.0) mmHg POC ABG pO2 (83-108) mmHg ABG Hemoglobin (12.0-17.5) ABG Oxyhemoglobin (94-98) ABG Potassium (3.40-4.50) mmol/L ABG Glucose (65-95) mg/dL Carboxyhemoglobin (0.5-1.5) Potassium (3.6-5.0) mmol/L Carbon Dioxide (22-30) mmol/L BUN (7-17) mg/dL POC Glucose (70-105) mg/dL Calcium (8.4-10.2) mg/dL Phosphorus (2.5-4.5) mg/dL Lactate Dehydrogenase (91-180) units/L C-Reactive Protein (0.00-1.30) mg/dL Arterial Blood Glucose (65-95) mg/dL Arterial Blood Ionized Calcium (4.6-5.3) mg/dL Medications & Allergies - Medications Allergies/Adverse Reactions: Allergies morphine Adverse Reaction (Verified 05/26/13 19:22) Nausea Home Medications: Home Medications Medication Instructions Recorded Confirmed Last Taken Type Acetaminophen [Tylenol] 325 mg PO DAILY #10 tablet 05/26/13 10/17/14 10/16/14 Rx Baclofen [Lioresal] 10 mg PO TID PRN 05/26/13 10/17/14 10/16/14 History Diazepam [Valium] 10 mg PO BID 05/26/13 10/17/14 10/16/14 History PARoxetine [Paxil] 10 mg PO DAILY 05/26/13 10/17/14 10/16/14 19:00 History Quetiapine Fumarate [SEROquel XR] 200 mg PO DAILY 05/26/13 10/17/14 10/16/14 History rOPINIRole [Requip] 1 mg PO QHS 05/26/13 10/17/14 10/16/14 19:00 History QUEtiapine [SEROquel] 200 mg PO QHS 05/28/13 10/17/14 10/16/14 19:00 History Famotidine [Pepcid] 10 mg PO BID #60 tablet 06/02/13 10/17/14 10/16/14 Rx levoFLOXacin [Levaquin] 750 mg PO QDAY #7 tablet 06/02/13 10/17/14 10/16/14 Rx metroNIDAZOLE [Flagyl] 500 mg PO Q8HR #30 tablet 06/02/13 10/17/14 10/16/14 Rx Hydromorphone HCl [Dilaudid] 4 mg PO 10/17/14 10/17/14 10/16/14 History Oxycodone HCl/Acetaminophen 1 each PO Q6HR PRN 10/17/14 10/17/14 10/16/14 History [Percocet 10-325 mg] Oxycodone HCl/Acetaminophen 1 each PO Q6HR PRN #30 tablet 10/18/14 Unknown Rx [Percocet 10-325 mg] Active Medications: Generic Name Dose Route Start Last Admin Trade Name Freq PRN Reason Stop Dose Admin Acetaminophen 650 mg 11/11/20 22:11 11/19/20 11:30 Acetaminophen 325 Mg Tab PO 650 mg Q4H PRN Administration Pain MILD(1-3)/Fever >100.5/ERAZO Albuterol 2.5 mg 11/13/20 07:40 Albuterol 2.5 Mg/3 Ml Nebu IH Q4HRT PRN Shortness Of Breath Lipase/Protease/Amylase 1 each 11/13/20 17:32 Lipase 10,500/Protease 25,000/Amylase 43,750 (Units) Dr Weiss FEEDTUBE PRN PRN For Clogged Feeding Tube Ascorbic Acid 500 mg 11/13/20 22:00 11/19/20 10:08 Ascorbic Acid 500 Mg Tab PO 500 mg BID CARLOS Administration Baclofen 10 mg 11/11/20 22:09 Baclofen 10 Mg Tab PO TID PRN MUSCLE SPASMS & PAIN Calcium Carbonate/Glycine 1,250 mg 11/19/20 10:00 11/19/20 10:52 Calcium Carbonate 1250 Mg/5 Ml Oral Liqd FEEDTUBE 11/21/20 23:59 1,250 mg QDAY CARLOS Administration Dexamethasone 6 mg 11/13/20 10:00 11/19/20 13:26 Dexamethasone 4 Mg/Ml Vial IV 11/22/20 10:01 6 mg Q24HR CARLOS Administration Dextrose 50 ml 11/13/20 16:43 11/14/20 01:12 Dextrose 50% In Water (25gm) 50 Ml Syringe IV 50 ml Q30MIN PRN Administration Hypoglycemia Protocol Fentanyl 50 mcg 11/13/20 05:33 Fentanyl 100 Mcg/2 Ml Inj IV Q10MIN PRN ANALGESIA Heparin Sodium (Porcine) 3,000 unit 11/13/20 05:04 Heparin 10,000 Units/10 Ml Vial 40 unit/kg (3000 unit) IV Q6H PRN Anti-Xa Assay < 0.1 units/ml Hydromorphone HCl 0.5 mg 11/11/20 22:11 Hydromorphone 1 Mg/1 Ml Inj IV Q3H PRN Pain , Severe (7-10) Hydrophilic Ointment 1 applic 11/13/20 05:33 Lip Therapy Vaseline TP Q2HR PRN Dry Lips Heparin Sodium/Sodium Chloride 25,000 unit in 500 mls @ 23 mls/hr 11/13/20 06:00 11/19/20 16:07 Heparin/ 0.45% Nacl-25,000 Unit/500 Ml IV 900 units/hr TITR CARLOS 18 mls/hr Administration Protocol 1,150 UNITS/HR Fentanyl Citrate 2,000 mcg in 100 mls @ 3.81 mls/hr 11/13/20 06:00 11/19/20 08:00 Fentanyl Drip Premix IV 0 mcg/kg/hr TITR CARLOS 0 mls/hr Titration Protocol 1 MCG/KG/HR NORepinephrine/NS 8 MG-250 ML 8 mg in 250 mls @ 3.75 mls/hr 11/13/20 15:00 11/19/20 16:30 Norepinephrine/Ns 8 Mg-250 Ml (Double Conc) IV 4 mcg/min TITRATE CARLOS 7.5 mls/hr Titration Protocol 2 MCG/MIN Vasopressin 20 unit/ Sodium 101 mls @ 9.09 mls/hr 11/19/20 09:00 11/19/20 11:38 Chloride IV 0.03 units/min TITR CARLOS 9.09 mls/hr Administration Protocol 0.03 UNITS/MIN Magnesium Sulfate 2 gm in 50 mls @ 25 mls/hr 11/19/20 15:00 11/19/20 16:16 Magnesium Sulfate 2gm/50ml IV 11/19/20 16:59 25 mls/hr ONCE ONE Administration Pantoprazole Sodium 80 mg/ 100 mls @ 10 mls/hr 11/19/20 15:00 11/19/20 16:02 Sodium Chloride IV 8 mg/hr DIRECT CARLOS 10 mls/hr Administration 8 MG/HR Insulin Human Regular 0 units 11/13/20 17:00 11/19/20 10:52 Insulin Regular, Human 100 Units/1 Ml SUB-Q Not Given Q6H [facility] Protocol Metolazone 5 mg 11/18/20 15:00 11/19/20 10:17 Metolazone 5 Mg Tab PO Not Given QDAY [facility] Multi-Ingred Cream/Lotion/Oil/Oint 1 applic 11/13/20 05:33 Mineral Oil/Petrolatum, White Ophth Oint 3.5 Gm OU Q4HR PRN Dry Eye(s) Ondansetron HCl 4 mg 11/11/20 22:11 Ondansetron 4 Mg/2 Ml Inj IV Q3H PRN Nausea And Vomiting Oxycodone/Acetaminophen 1 tab 11/11/20 22:11 Oxycodone /Acetaminophen 5-325mg Tab PO Q6H PRN Pain, Moderate (4-6) Paroxetine HCl 10 mg 11/12/20 10:00 11/19/20 10:10 Paroxetine 10 Mg Tab PO Not Given DAILY [facility] Ropinirole HCl 1 mg 11/12/20 22:00 11/18/20 21:31 Ropinirole 1 Mg Tab PO 1 mg QHS [facility] Administration Simple Syrup 15 ml 11/13/20 17:32 Simple Syrup 15 Ml FEEDTUBE PRN PRN Hypoglycemia Simple Syrup 30 ml 11/13/20 17:32 Simple Syrup 15 Ml FEEDTUBE PRN PRN Hypoglycemia Sodium Bicarbonate 325 mg 11/13/20 17:32 Sodium Bicarbonate 325 Mg Tab FEEDTUBE PRN PRN For Clogged Feeding Tube Sodium Chloride 10 ml 11/12/20 10:00 11/19/20 10:10 Sodium Chloride 0.9% 10 Ml Flush Syringe IV 10 ml BID CARLOS Administration Sodium Chloride 10 ml 11/11/20 22:11 Sodium Chloride 0.9% 10 Ml Flush Syringe IV PRN PRN LINE FLUSH Zinc Sulfate 220 mg 11/13/20 22:00 11/19/20 10:08 Zinc Sulfate 220 Mg Cap PO 220 mg BID CARLOS Administration HEART Score - HEART Score Age: > 65 Risk factors: 1-2 risk factors Troponin: Troponin T < 0.010 ng/mL (0.00-0.029) 11/11/20 13:39 - Critical Actions Critical Actions: 0-3 pts:0.9-1.7%risk of adverse cardiac event.Candidate for discharge
--- NOTE | 2020-11-19 17:24 | Gastroenterology Consultation ---
History of Present Illness - Reason for Consult Consult date: 11/19/20 GI bleed Requesting physician: JOSE PETERS - History of Present Illness 85 yo female with pmh of obesity, chronic UTI, and depression admitted on 11/11/2020 for nausea/vomiting and decreased PO intake. patient is nonambulatory. Upong arrival to the ED, patient was hypoxic and continues to have emesis. Work up in the ED revealed acute hypoxic respiratory failure, SIRS. On 11/12/2020, COVID PCR was positive. On 11/13/2020 patient coded and intubated with ROSC. Patient has remained intubated and has been on and off pressors for septic shock. She also has been on heparin drip for central line in the left carotid artery, which is a risk for thrombus and thromboembolic even with CVA. GI consulted this PM for evaluation for GI bleed with patient having blood in the rectal tube. Per nursing, patient had greenish fluid from the NG tube and marroon bloody stool in the rectal tube. She had black stool in the rectal tube yesterday. Patient weaned off all pressors yesterday evening and off overnight. But noted to be hypotensive this AM and placed on levophed AM and later vasopressin was added. Medication list reviewed. Past History Past Medical History: other (Depression, chronic back pain) Past Surgical History: tonsillectomy, Other (Back surgery, hemorrhoidectomy,) Social history: smoking Medications and Allergies Allergies Allergy/AdvReac Type Severity Reaction Status Date / Time morphine AdvReac Nausea Verified 05/26/13 19:22 Home Medications Medication Instructions Recorded Confirmed Last Taken Type Acetaminophen [Tylenol] 325 mg PO DAILY #10 tablet 05/26/13 10/17/14 10/16/14 Rx Baclofen [Lioresal] 10 mg PO TID PRN 05/26/13 10/17/14 10/16/14 History Diazepam [Valium] 10 mg PO BID 05/26/13 10/17/14 10/16/14 History PARoxetine [Paxil] 10 mg PO DAILY 05/26/13 10/17/14 10/16/14 19:00 History Quetiapine Fumarate [SEROquel XR] 200 mg PO DAILY 05/26/13 10/17/14 10/16/14 History rOPINIRole [Requip] 1 mg PO QHS 05/26/13 10/17/14 10/16/14 19:00 History QUEtiapine [SEROquel] 200 mg PO QHS 05/28/13 10/17/14 10/16/14 19:00 History Famotidine [Pepcid] 10 mg PO BID #60 tablet 06/02/13 10/17/14 10/16/14 Rx levoFLOXacin [Levaquin] 750 mg PO QDAY #7 tablet 06/02/13 10/17/14 10/16/14 Rx metroNIDAZOLE [Flagyl] 500 mg PO Q8HR #30 tablet 06/02/13 10/17/14 10/16/14 Rx Hydromorphone HCl [Dilaudid] 4 mg PO 10/17/14 10/17/14 10/16/14 History Oxycodone HCl/Acetaminophen 1 each PO Q6HR PRN 10/17/14 10/17/14 10/16/14 History [Percocet 10-325 mg] Oxycodone HCl/Acetaminophen 1 each PO Q6HR PRN #30 tablet 10/18/14 Unknown Rx [Percocet 10-325 mg] Active Meds: Active Medications Acetaminophen (Acetaminophen 325 Mg Tab) 650 mg PO Q4H PRN PRN Reason: Pain MILD(1-3)/Fever >100.5/ERAZO Last Admin: 11/19/20 11:30 Dose: 650 mg Documented by: Albuterol (Albuterol 2.5 Mg/3 Ml Nebu) 2.5 mg IH Q4HRT PRN PRN Reason: Shortness Of Breath Lipase/Protease/Amylase (Lipase 10,500/Protease 25,000/Amylase 43,750 (Units) Dr Weiss) 1 each FEEDTUBE PRN PRN PRN Reason: For Clogged Feeding Tube Ascorbic Acid (Ascorbic Acid 500 Mg Tab) 500 mg PO BID CARLOS Last Admin: 11/19/20 10:08 Dose: 500 mg Documented by: Baclofen (Baclofen 10 Mg Tab) 10 mg PO TID PRN PRN Reason: MUSCLE SPASMS & PAIN Calcium Carbonate/Glycine (Calcium Carbonate 1250 Mg/5 Ml Oral Liqd) 1,250 mg FEEDTUBE QDAY CARLOS Stop: 11/21/20 23:59 Last Admin: 11/19/20 10:52 Dose: 1,250 mg Documented by: Dexamethasone (Dexamethasone 4 Mg/Ml Vial) 6 mg IV Q24HR CARLOS Stop: 11/22/20 10:01 Last Admin: 11/19/20 13:26 Dose: 6 mg Documented by: Dextrose (Dextrose 50% In Water (25gm) 50 Ml Syringe) 50 ml IV Q30MIN PRN; Protocol PRN Reason: Hypoglycemia Last Admin: 11/14/20 01:12 Dose: 50 ml Documented by: Fentanyl (Fentanyl 100 Mcg/2 Ml Inj) 50 mcg IV Q10MIN PRN PRN Reason: ANALGESIA Heparin Sodium (Porcine) (Heparin 10,000 Units/10 Ml Vial) 3,000 unit 40 un it/kg (3000 unit) IV Q6H PRN PRN Reason: Anti-Xa Assay < 0.1 units/ml Hydromorphone HCl (Hydromorphone 1 Mg/1 Ml Inj) 0.5 mg IV Q3H PRN PRN Reason: Pain , Severe (7-10) Hydrophilic Ointment (Lip Therapy Vaseline) 1 applic TP Q2HR PRN PRN Reason: Dry Lips Heparin Sodium/Sodium Chloride (Heparin/ 0.45% Nacl-25,000 Unit/500 Ml) 25,000 unit in 500 mls @ 23 mls/hr IV TITR CARLOS; Protocol Last Admin: 11/19/20 16:07 Dose: 900 units/hr, 18 mls/hr Documented by: Fentanyl Citrate (Fentanyl Drip Premix) 2,000 mcg in 100 mls @ 3.81 mls/hr IV TITR CARLOS; Protocol Last Titration: 11/19/20 08:00 Dose: 0 mcg/kg/hr, 0 mls/hr Documented by: NORepinephrine/NS 8 MG-250 ML (Norepinephrine/Ns 8 Mg-250 Ml (Double Conc)) 8 mg in 250 mls @ 3.75 mls/hr IV TITRATE CARLOS; Protocol Last Titration: 11/19/20 16:30 Dose: 4 mcg/min, 7.5 mls/hr Documented by: Vasopressin 20 unit/ Sodium (Chloride) 101 mls @ 9.09 mls/hr IV TITR ACRLOS; Protocol Last Admin: 11/19/20 11:38 Dose: 0.03 units/min, 9.09 mls/hr Documented by: Pantoprazole Sodium 80 mg/ (Sodium Chloride) 100 mls @ 10 mls/hr IV DIRECT CARLOS Last Admin: 11/19/20 16:02 Dose: 8 mg/hr, 10 mls/hr Documented by: Insulin Human Regular (Insulin Regular, Human 100 Units/1 Ml) 0 units SUB-Q Q6H [facility]; Protocol Last Admin: 11/19/20 10:52 Dose: Not Given Documented by: Metolazone (Metolazone 5 Mg Tab) 5 mg PO QDAY [facility] Last Admin: 11/19/20 10:17 Dose: Not Given Documented by: Multi-Ingred Cream/Lotion/Oil/Oint (Mineral Oil/Petrolatum, White Ophth Oint 3.5 Gm) 1 applic OU Q4HR PRN PRN Reason: Dry Eye(s) Ondansetron HCl (Ondansetron 4 Mg/2 Ml Inj) 4 mg IV Q3H PRN PRN Reason: Nausea And Vomiting Oxycodone/Acetaminophen (Oxycodone /Acetaminophen 5-325mg Tab) 1 tab PO Q6H PRN PRN Reason: Pain, Moderate (4-6) Paroxetine HCl (Paroxetine 10 Mg Tab) 10 mg PO DAILY [facility] Last Admin: 11/19/20 10:10 Dose: Not Given Documented by: Ropinirole HCl (Ropinirole 1 Mg Tab) 1 mg PO QHS [facility] Last Admin: 11/18/20 21:31 Dose: 1 mg Documented by: Simple Syrup (Simple Syrup 15 Ml) 15 ml FEEDTUBE PRN PRN PRN Reason: Hypoglycemia Simple Syrup (Simple Syrup 15 Ml) 30 ml FEEDTUBE PRN PRN PRN Reason: Hypoglycemia Sodium Bicarbonate (Sodium Bicarbonate 325 Mg Tab) 325 mg FEEDTUBE PRN PRN PRN Reason: For Clogged Feeding Tube Sodium Chloride (Sodium Chloride 0.9% 10 Ml Flush Syringe) 10 ml IV BID [facility] Last Admin: 11/19/20 10:10 Dose: 10 ml Documented by: Sodium Chloride (Sodium Chloride 0.9% 10 Ml Flush Syringe) 10 ml IV PRN PRN PRN Reason: LINE FLUSH Zinc Sulfate (Zinc Sulfate 220 Mg Cap) 220 mg PO BID [facility] Last Admin: 11/19/20 10:08 Dose: 220 mg Documented by: Review of Systems - Review of Systems ROS unobtainable: due to endotracheal tube Exam - Constitutional Vital Signs: Temp Pulse Resp BP Pulse Ox 98.2 F 101 H 23 139/67 100 11/19/20 08:00 11/19/20 16:48 11/19/20 16:30 11/19/20 16:48 11/19/20 16:48 General appearance: no acute distress - Respiratory Respiratory: bilateral: diminished (on the vent) - Cardiovascular Rhythm: regular Heart Sounds: Present: S1 & S2 Extremity abnormal: edema - Gastrointestinal General gastrointestinal: Present: soft, non-tender, non-distended - Neurologic Neurological: other (unresponsive) - Labs CBC & Chem 7: 11/19/20 14:10 11/19/20 04:00 Lab Results: Laboratory Results - last 24 hr 11/18/20 11/18/20 11/19/20 21:40 22:00 00:15 WBC RBC Hgb Hct MCV MCH MCHC RDW Plt Count Add Manual Diff Total Counted Seg Neuts % (Manual) Lymphocytes % (Manual) Monocytes % (Manual) Nucleated RBC % Seg Neutrophils # Man Band Neutrophils # Lymphocytes # (Manual) Abs React Lymphs (Man) Monocytes # (Manual) Eosinophils # (Manual) Basophils # (Manual) Metamyelocytes # Myelocytes # Promyelocytes # Blast Cells # WBC Morphology Hypersegmented Neuts Hyposegmented Neuts Hypogranular Neuts Smudge Cells Toxic Granulation Toxic Vacuolation Dohle Bodies Pelger-Huet Anomaly Vernell Rods Platelet Estimate Clumped Platelets Plt Clumps, EDTA Large Platelets Giant Platelets Platelet Satelliting Plt Morphology Comment RBC Morphology Dimorphic RBCs Polychromasia Hypochromasia Poikilocytosis Anisocytosis Microcytosis Macrocytosis Spherocytes Pappenheimer Bodies Sickle Cells Target Cells Tear Drop Cells Ovalocytes Helmet Cells Wallis-Walton Bodies Stuart Rings Woodrow Cells Bite Cells Crenated Cell Elliptocytes Acanthocytes (Spur) Rouleaux Hemoglobin C Crystals Schistocytes Malaria parasites Mauro Bodies Hem Pathologist Commnt D-Dimer Heparin Anti-Xa Level 0.66 ABG pH POC ABG pCO2 POC ABG pO2 POC ABG HCO3 ABG O2 Saturation POC ABG Base Excess ABG Hemoglobin ABG Oxyhemoglobin ABG Methemoglobin ABG Sodium ABG Potassium ABG Chloride ABG Glucose Carboxyhemoglobin FiO2 % Sodium Potassium Chloride Carbon Dioxide Anion Gap BUN Creatinine Estimated GFR BUN/Creatinine Ratio Glucose POC Glucose 105 102 Calcium Phosphorus Magnesium Lactate Dehydrogenase C-Reactive Protein Arterial Blood Glucose Arterial Blood Ionized Calcium 11/19/20 11/19/20 11/19/20 03:19 04:00 04:00 WBC 14.3 H RBC 3.61 L Hgb 10.3 Hct 31.2 MCV 86 MCH 29 MCHC 33 RDW 14.5 Plt Count 145 Add Manual Diff Complete Total Counted 100 Seg Neuts % (Manual) 77.0 H Lymphocytes % (Manual) 13.0 L Monocytes % (Manual) 10.0 H Nucleated RBC % Not Reportable Seg Neutrophils # Man 11.0 H Band Neutrophils # 0.0 Lymphocytes # (Manual) 1.9 Abs React Lymphs (Man) 0.0 Monocytes # (Manual) 1.4 H Eosinophils # (Manual) 0.0 Basophils # (Manual) 0.0 Metamyelocytes # 0.0 Myelocytes # 0.0 Promyelocytes # 0.0 Blast Cells # 0.0 WBC Morphology Not Reportable Hypersegmented Neuts Not Reportable Hyposegmented Neuts Not Reportable Hypogranular Neuts Not Reportable Smudge Cells Not Reportable Toxic Granulation Not Reportable Toxic Vacuolation Not Reportable Dohle Bodies Not Reportable Pelger-Huet Anomaly Not Reportable Vernell Rods Not Reportable Platelet Estimate Not Reportable Clumped Platelets Not Reportable Plt Clumps, EDTA Not Reportable Large Platelets Not Reportable Giant Platelets Not Reportable Platelet Satelliting Not Reportable Plt Morphology Comment Not Reportable RBC Morphology Normal Dimorphic RBCs Not Reportable Polychromasia Not Reportable Hypochromasia Not Reportable Poikilocytosis Not Reportable Anisocytosis Not Reportable Microcytosis Not Reportable Macrocytosis Not Reportable Spherocytes Not Reportable Pappenheimer Bodies Not Reportable Sickle Cells Not Reportable Target Cells Not Reportable Tear Drop Cells Not Reportable Ovalocytes Not Reportable Helmet Cells Not Reportable Wallis-Walton Bodies Not Reportable Stuart Rings Not Reportable Vitaliy Cells Not Reportable Bite Cells Not Reportable Crenated Cell Not Reportable Elliptocytes Not Reportable Acanthocytes (Spur) Not Reportable Rouleaux Not Reportable Hemoglobin C Crystals Not Reportable Schistocytes Not Reportable Malaria parasites Not Reportable Mauro Bodies Not Reportable Hem Pathologist Commnt No D-Dimer Heparin Anti-Xa Level ABG pH 7.577 H POC ABG pCO2 28.0 L POC ABG pO2 57.4 L POC ABG HCO3 25.5 ABG O2 Saturation 90.8 POC ABG Base Excess 4.0 ABG Hemoglobin 10.6 L ABG Oxyhemoglobin 90.3 L ABG Methemoglobin 0.3 ABG Sodium 136.9 ABG Potassium 2.8 L ABG Chloride 103.0 ABG Glucose 102 H Carboxyhemoglobin 0.3 L FiO2 % 60.0 Sodium 144 Potassium 2.9 L* D Chloride 103.2 Carbon Dioxide 31 H Anion Gap 13 BUN 51 H Creatinine 1.1 Estimated GFR 47 BUN/Creatinine Ratio 46 Glucose 97 POC Glucose Calcium 6.7 L D Phosphorus 1.90 L Magnesium 1.80 Lactate Dehydrogenase 634 H C-Reactive Protein 1.40 H Arterial Blood Glucose 102 H Arterial Blood Ionized Calcium 3.7 L 11/19/20 11/19/20 11/19/20 04:00 05:20 10:33 WBC RBC Hgb Hct MCV MCH MCHC RDW Plt Count Add Manual Diff Total Counted Seg Neuts % (Manual) Lymphocytes % (Manual) Monocytes % (Manual) Nucleated RBC % Seg Neutrophils # Man Band Neutrophils # Lymphocytes # (Manual) Abs React Lymphs (Man) Monocytes # (Manual) Eosinophils # (Manual) Basophils # (Manual) Metamyelocytes # Myelocytes # Promyelocytes # Blast Cells # WBC Morphology Hypersegmented Neuts Hyposegmented Neuts Hypogranular Neuts Smudge Cells Toxic Granulation Toxic Vacuolation Dohle Bodies Pelger-Huet Anomaly Vernell Rods Platelet Estimate Clumped Platelets Plt Clumps, EDTA Large Platelets Giant Platelets Platelet Satelliting Plt Morphology Comment RBC Morphology Dimorphic RBCs Polychromasia Hypochromasia Poikilocytosis Anisocytosis Microcytosis Macrocytosis Spherocytes Pappenheimer Bodies Sickle Cells Target Cells Tear Drop Cells Ovalocytes Helmet Cells Wallis-Walton Bodies Stuart Rings Vitaliy Cells Bite Cells Crenated Cell Elliptocytes Acanthocytes (Spur) Rouleaux Hemoglobin C Crystals Schistocytes Malaria parasites Mauro Bodies Hem Pathologist Commnt D-Dimer 1808.23 H Heparin Anti-Xa Level ABG pH POC ABG pCO2 POC ABG pO2 POC ABG HCO3 ABG O2 Saturation POC ABG Base Excess ABG Hemoglobin ABG Oxyhemoglobin ABG Methemoglobin ABG Sodium ABG Potassium ABG Chloride ABG Glucose Carboxyhemoglobin FiO2 % Sodium Potassium Chloride Carbon Dioxide Anion Gap BUN Creatinine Estimated GFR BUN/Creatinine Ratio Glucose POC Glucose 101 109 H Calcium Phosphorus Magnesium Lactate Dehydrogenase C-Reactive Protein Arterial Blood Glucose Arterial Blood Ionized Calcium 11/19/20 14:10 WBC RBC Hgb 8.9 L Hct 27.0 L MCV MCH MCHC RDW Plt Count Add Manual Diff Total Counted Seg Neuts % (Manual) Lymphocytes % (Manual) Monocytes % (Manual) Nucleated RBC % Seg Neutrophils # Man Band Neutrophils # Lymphocytes # (Manual) Abs React Lymphs (Man) Monocytes # (Manual) Eosinophils # (Manual) Basophils # (Manual) Metamyelocytes # Myelocytes # Promyelocytes # Blast Cells # WBC Morphology Hypersegmented Neuts Hyposegmented Neuts Hypogranular Neuts Smudge Cells Toxic Granulation Toxic Vacuolation Dohle Bodies Pelger-Huet Anomaly Vernell Rods Platelet Estimate Clumped Platelets Plt Clumps, EDTA Large Platelets Giant Platelets Platelet Satelliting Plt Morphology Comment RBC Morphology Dimorphic RBCs Polychromasia Hypochromasia Poikilocytosis Anisocytosis Microcytosis Macrocytosis Spherocytes Pappenheimer Bodies Sickle Cells Target Cells Tear Drop Cells Ovalocytes Helmet Cells Wallis-Walton Bodies Stuart Rings Woodrow Cells Bite Cells Crenated Cell Elliptocytes Acanthocytes (Spur) Rouleaux Hemoglobin C Crystals Schistocytes Malaria parasites Mauro Bodies Hem Pathologist Commnt D-Dimer Heparin Anti-Xa Level ABG pH POC ABG pCO2 POC ABG pO2 POC ABG HCO3 ABG O2 Saturation POC ABG Base Excess ABG Hemoglobin ABG Oxyhemoglobin ABG Methemoglobin ABG Sodium ABG Potassium ABG Chloride ABG Glucose Carboxyhemoglobin FiO2 % Sodium Potassium Chloride Carbon Dioxide Anion Gap BUN Creatinine Estimated GFR BUN/Creatinine Ratio Glucose POC Glucose Calcium Phosphorus Magnesium Lactate Dehydrogenase C-Reactive Protein Arterial Blood Glucose Arterial Blood Ionized Calcium Assessment and Plan 85 yo female with pmh of obesity, chronic UTI, and depression admitted on 11/11/2020 for nausea/vomiting and decreased PO intake. # COVID infection # Respiratory failure # Septic shock # Intra-arterial line placement in left carotid artery # GI bleed - review of the initial CT a/p without contrast on 11/11 with gaseous distension of the stomach without obvious cause. No signs of bowel obstruction. - currently on heparin drip for carotid artery line, which is a risk for thrombus and thromboembolic event with CVA. - hgb trended down from 16 on admission to 10 this AM and 8.9 at 1400. - rectal tube with marroon bloody stools. - NG tube irrigation with green fluid but no blood or coffee ground . - unclear source of GI bleed, suspect lower given bloody stools and no blood output from the NG tube. DDx including PUD, gastritis vs diverticular bleed. Per family, normal colonoscopy 3-4 years ago. - currently patient requiring multiple pressors with septic shock, COVID pneumonia, respiratory failure and not stable for transfer or for CT angio. Rec - monitor H/H serially and transfuse as needed. - PPI IV - correct any coagulopathy. checking INR - will plan for EGD in the AM if patient is stable enough for the procedure. - regarding anticoagulation, it is difficult situation given risk with current bleeding as well as risk for thrombus and stroke with holding anticoagulation. If it became a point that patient is bleeding significant enough leading to hemodynamic instability, may need to reconsider holding anticoagulation. Doubt that current bleeding is the main cause of state of shock given Hgb at 8.9 and other driving causes of septic shock and respiratory failure. - discussed with patient's daughter, Ms. Azevedo regarding patient's conditions and difficult situation with the anticoagulation. - recommend CT a/p with IV contrast once patient's more stable to go down for the scan. - discussed case with IMS, anchorman, and vascular.
--- NOTE | 2020-11-19 17:41 | Event Note ---
Date: 11/19/[address] Alejo of gastroenterology about ongoing active GI bleeding. Hemoglobin is trending down. Patient is having melanotic stool through the rectal tube. Unclear if this is upper or lower, but NG tube is not demonstrating blood return. Unfortunately, patient is not stable enough for CT angiogram, nuclear medicine study, or even angiography. If patient's hemoglobin continues to trend down and she becomes unstable because of this, then heparin will need to be discontinued. Unfortunately, if heparin is discontinued, patient will likely develop a left-sided stroke. I contacted the patient's power of process control technician, Ms. Hernadez, and explained the situation. She understood.
[2020-11-19] MEDS ORDERED: SODIUM CHLORIDE 0.9% 500 ML 500 ML IV NR (18:10)
--- NOTE | 2020-11-19 18:59 | Progress Note ---
Assessment and Plan Assessment and plan: This is an 85-year-old female admitted with acute hypoxic respiratory failure, COVID-19 pneumonia and septic shock Neuro: Acute metabolic encephalopathy, A/O lumbar compression fracture -Patient was sedated with fentanyl but now on no sedation -Pain management as needed -Supportive care Cardio: Hypotension, elevated placement of carotid artery central venous line -Vasopressor support with Levophed and vasopressin -Blood pressure monitor per protocol -Vascular surgery/interventional radiology consulted, appreciate recommendations -Heparin drip to prevent thrombus -Do not use carotid CVL Respiratory: Acute hypoxemic respiratory failure -[facility] consulted, appreciate recommendations -Intubated 11/13/2020 -11/19 AB.5/28/57/25 at 60% FiO2 -11/19 CXR reviewed -Current vent settings: 8.00 ETT at 20 lips; AC, rate of 16, tidal volume 450, FiO2 60, PEEP of 10 -VAP bundle -Daily SBT/SAT when appropriate -Serial ABGs, CXR -Wean current ventilation as tolerated GI: Likely GI bleed, transaminitis, Severe protein malnutrition -GI consulted, appreciate recommendations -Surgeon consulted, patient recommendations: On tube feedings -Serial H&H -Stat CBC -Transfuse 2 units PRBC -Patient needs CT abdomen or to be scoped but unfortunately is too unstable -Trend CBC and LFTs -11/11 abdomen/pelvis CT, see report for findings -PPI gtt -FMS in place-> Occult Positive : Acute kidney injury, left ureteral stone,Hypokalemia, metabolic alkalosis,hypocalcemia -Nephrology, urology consulted, appreciate recommendations -Strict intake and output -Daily weights -Avoid nephrotoxic medication -Renally dose medications -S/p bilateral stent -Resume free water flushes with tube feedings -Repleted with IV calcium x2 doses -P.o. calcium supplementation for 3 days ID: Septic shock, COVID-19 pneumonia, UTI -MRSA 11/13 sputum culture -Infectious disease consulted, appreciate recommendations -S/p ABX therapy -11/14 blood cultures x2 no growth to date -COVID-19 PCR + on 11/11 -Patient not a candidate for remdesivir due to renal failure -S/p Actemra -Dexamethasone for 10 days -Zinc/vitamin C -Trend COVID-19 inflammatory markers -Droplet/isolation precautions Endo: DM II -SSI -Hemoglobin A1c 6.6 -Accu-Cheks every 6 -Avoid hypoglycemia - PPI gtt Heme: Acute GI bleed, elevated D-dimer -SCDs to bilateral lower extremities while in bed -Transfuse 2 units PRBC -H/H every 6 -Stat CBC -Transfuse for hemoglobin less than 7 -Systemic anticoagulation with heparin to prevent thrombus The high probability of a clinically significant, sudden or life threatening deterioration of the [multi] system(s) required my full and direct attention, intervention and personal management. The aggregate critical care time was [60] minutes. This time is in addition to time spent performing reported procedures but includes the following: [x] Data Review and interpretation [x] Patient assessment and monitoring of vital signs [x] Documentation [x] Medication orders and management Disposition Plan: ICU Total Time Spent with Patient (Minutes): 60 History Interval history: This is a 85-year-old female with obesity, chronic low back pain, chronic UTI, muscle spasm, and depression who presents to the emergency department on 11/11 w ith complaints of nausea/vomiting and decreased p.o. intake for 1 week and complains of mild diarrhea. Patient is bedridden and nonambulatory and oriented to self. Her patient's daughter EMS was called to assess and they gave the patient IV fluids but did not transfer the patient. On 11/11 EMS was contacted again and due to persistent vomiting and apparent small amount of blood in vomit patient was transferred to [facility] for further evaluation and treatment. Upon presentation to the emergency department patient was hypoxic on room air with SPO2 of 88 to 90% and continue to have emesis. Work-up in the emergency department revealed leukocytosis, thrombocytosis, acute hypoxic respiratory failure, SIRS. Patient was admitted as a COVID-19 PUI with acute hypoxic respiratory failure. 11/12/2020 Patient doing well, Discussed with daughter at length about her prognosis and treatment, No nausea vomiting since morning Coronavirus PCR came positive 11/13/2020 Patient coded last night and was intubated, ROSC. Patient on vent, Certified Industrial Hygienist consult and ID consult 11/14/2020 Patient intubated, Weaning in progress 11/15/2020; patient remains intubated, on vasopressors for septic shock. Critically ill, poor prognosis, discussed with daughter Kirstin who understands the severity of illness, she wants to talk to the family. If the family agrees she is considering DNR/withdrawal of care, I informed patient's nurse 11/16/2020; Patient remains intubated, on Levophed, Severe sepsis due to COVID-19 pneumonia, critically ill, on heparin drip 11/17/2020; Patient remains critically ill. Septic shock on norepinephrine. Intubated on vent, Very poor prognosis Family unable to decide the goals of treatment CODE STATUS; Recommend palliative care/hospice 11/18: PICC team consulted for placement of PICC, patient noted to have minimal output from NG tube and tube feeding will be restarted, patient will be left with Reglan. CCM decrease PEEP. Hypocalcemia and hypomagnesemia repleted. 11/19: Patient's H/H is trending down, having dark stools via FMS and GI was consulted today. Placed on PPI and NG tube to low normal suction, start stool guaiac positive. Per CCM discontinue Lind catheter. Patient will now be on every 6 H&H and will to be transfused with 2 units PRBC. Long family meeting conducted today with hospitalist, CCM and administration. Hospitalist Physical - Constitutional Vitals: Temp Pulse Resp BP Pulse Ox 98.2 F 101 H 23 139/67 100 11/19/20 08:00 11/19/20 16:48 11/19/20 16:30 11/19/20 16:48 11/19/20 16:48 General appearance: Present: other (Intubated) - EENT Eyes: Present: PERRL ENT: poor dentition - Neck Neck: Absent: masses or JVD, cervical LAD - Respiratory Respiratory effort: normal Respiratory: bilateral: diminished - Cardiovascular Rhythm: regular Heart Sounds: Present: S1 & S2. Absent: systolic murmur, diastolic murmur - Extremities Extremities: no ischemia, pulses intact, pulses symmetrical, normal temperature Extremity abnormal: cold Peripheral Pulses: within normal limits - Abdominal General gastrointestinal: soft, non-tender, non-distended, normal bowel sounds - Integumentary Integumentary: Present: warm, dry - Psychiatric Psychiatric: other (sedated but not interactive) - Allied Health Allied health notes reviewed: nursing, RT, social work HEART Score - HEART Score Age: > 65 Risk factors: 1-2 risk factors Troponin: Troponin T < 0.010 ng/mL (0.00-0.029) 11/11/20 13:39 - Critical Actions Critical Actions: 0-3 pts:0.9-1.7%risk of adverse cardiac event.Candidate for discharge Results - Labs CBC & Chem 7: 11/19/20 14:10 11/19/20 04:00 Labs: Laboratory Last Values WBC 14.3 K/mm3 (4.5-11.0) H 11/19/20 04:00 RBC 3.61 M/mm3 (3.65-5.03) L 11/19/20 04:00 Hgb 8.9 gm/dl (10.1-14.3) L 11/19/20 14:10 Hct 27.0 % (30.3-42.9) L 11/19/20 14:10 MCV 86 fl (79-97) 11/19/20 04:00 MCH 29 pg (28-32) 11/19/20 04:00 MCHC 33 % (30-34) 11/19/20 04:00 RDW 14.5 % (13.2-15.2) 11/19/20 04:00 Plt Count 145 K/mm3 (140-440) 11/19/20 04:00 Lymph % (Auto) 5.7 % (13.4-35.0) L 11/13/20 05:23 Pettis % (Auto) 9.0 % (0.0-7.3) H 11/13/20 05:23 Eos % (Auto) 0.0 % (0.0-4.3) 11/13/20 05:23 Baso % (Auto) 0.0 % (0.0-1.8) 11/13/20 05:23 Lymph # (Auto) 0.9 K/mm3 (1.2-5.4) L 11/13/20 05:23 Pettis # (Auto) 1.4 K/mm3 (0.0-0.8) H 11/13/20 05:23 Eos # (Auto) 0.0 K/mm3 (0.0-0.4) 11/13/20 05:23 Baso # (Auto) 0.0 K/mm3 (0.0-0.1) 11/13/20 05:23 Add Manual Diff Complete 11/19/20 04:00 Total Counted 100 11/19/20 04:00 Seg Neutrophils % 85.3 % (40.0-70.0) H 11/13/20 05:23 Seg Neuts % (Manual) 77.0 % (40.0-70.0) H 11/19/20 04:00 Lymphocytes % (Manual) 13.0 % (13.4-35.0) L 11/19/20 04:00 Monocytes % (Manual) 10.0 % (0.0-7.3) H 11/19/20 04:00 Nucleated RBC % Not Reportable 11/19/20 04:00 Seg Neutrophils # 13.6 K/mm3 (1.8-7.7) H 11/13/20 05:23 Seg Neutrophils # Man 11.0 K/mm3 (1.8-7.7) H 11/19/20 04:00 Band Neutrophils # 0.0 K/mm3 11/19/20 04:00 Lymphocytes # (Manual) 1.9 K/mm3 (1.2-5.4) 11/19/20 04:00 Abs React Lymphs (Man) 0.0 K/mm3 11/19/20 04:00 Monocytes # (Manual) 1.4 K/mm3 (0.0-0.8) H 11/19/20 04:00 Eosinophils # (Manual) 0.0 K/mm3 (0.0-0.4) 11/19/20 04:00 Basophils # (Manual) 0.0 K/mm3 (0.0-0.1) 11/19/20 04:00 Metamyelocytes # 0.0 K/mm3 11/19/20 04:00 Myelocytes # 0.0 K/mm3 11/19/20 04:00 Promyelocytes # 0.0 K/mm3 11/19/20 04:00 Blast Cells # 0.0 K/mm3 11/19/20 04:00 WBC Morphology Not Reportable 11/19/20 04:00 Hypersegmented Neuts Not Reportable 11/19/20 04:00 Hyposegmented Neuts Not Reportable 11/19/20 04:00 Hypogranular Neuts Not Reportable 11/19/20 04:00 Smudge Cells Not Reportable 11/19/20 04:00 Toxic Granulation Not Reportable 11/19/20 04:00 Toxic Vacuolation Not Reportable 11/19/20 04:00 Dohle Bodies Not Reportable 11/19/20 04:00 Pelger-Huet Anomaly Not Reportable 11/19/20 04:00 Vernell Rods Not Reportable 11/19/20 04:00 Platelet Estimate Not Reportable 11/19/20 04:00 Clumped Platelets Not Reportable 11/19/20 04:00 Plt Clumps, EDTA Not Reportable 11/19/20 04:00 Large Platelets Not Reportable 11/19/20 04:00 Giant Platelets Not Reportable 11/19/20 04:00 Platelet Satelliting Not Reportable 11/19/20 04:00 Plt Morphology Comment Not Reportable 11/19/20 04:00 RBC Morphology Normal 11/19/20 04:00 Dimorphic RBCs Not Reportable 11/19/20 04:00 Polychromasia Not Reportable 11/19/20 04:00 Hypochromasia Not Reportable 11/19/20 04:00 Poikilocytosis Not Reportable 11/19/20 04:00 Anisocytosis Not Reportable 11/19/20 04:00 Microcytosis Not Reportable 11/19/20 04:00 Macrocytosis Not Reportable 11/19/20 04:00 Spherocytes Not Reportable 11/19/20 04:00 Pappenheimer Bodies Not Reportable 11/19/20 04:00 Sickle Cells Not Reportable 11/19/20 04:00 Target Cells Not Reportable 11/19/20 04:00 Tear Drop Cells Not Reportable 11/19/20 04:00 Ovalocytes Not Reportable 11/19/20 04:00 Helmet Cells Not Reportable 11/19/20 04:00 [place] Bodies Not Reportable 11/19/20 04:00 [place] Rings Not Reportable 11/19/20 04:00 Vitaliy Cells Not Reportable 11/19/20 04:00 Bite Cells Not Reportable 11/19/20 04:00 Crenated Cell Not Reportable 11/19/20 04:00 Elliptocytes Not Reportable 11/19/20 04:00 Acanthocytes (Spur) Not Reportable 11/19/20 04:00 Rouleaux Not Reportable 11/19/20 04:00 Hemoglobin C Crystals Not Reportable 11/19/20 04:00 Schistocytes Not Reportable 11/19/20 04:00 Malaria parasites Not Reportable 11/19/20 04:00 Mauro Bodies Not Reportable 11/19/20 04:00 Hem Pathologist Commnt No 11/19/20 04:00 PT 16.0 Sec. (12.2-14.9) H 11/13/20 09:51 INR 1.23 (0.87-1.13) H 11/13/20 09:51 APTT 24.2 Sec. (24.2-36.6) 11/13/20 09:51 D-Dimer 1808.23 ng/mlDDU (0-234) H 11/19/20 04:00 Heparin Anti-Xa Level 0.66 U.I./ml (0.3-0.7) 11/18/20 22:00 ABG pH 7.577 (7.320-7.450) H 11/19/20 03:19 POC ABG pCO2 28.0 mmHg (32.0-48.0) L 11/19/20 03:19 POC ABG pO2 57.4 mmHg (83-108) L 11/19/20 03:19 POC ABG HCO3 25.5 11/19/20 03:19 ABG O2 Saturation 90.8 (0-100) 11/19/20 03:19 POC ABG Base Excess 4.0 11/19/20 03:19 ABG Hemoglobin 10.6 (12.0-17.5) L 11/19/20 03:19 ABG Oxyhemoglobin 90.3 (94-98) L 11/19/20 03:19 ABG Methemoglobin 0.3 (0.0-1.5) 11/19/20 03:19 ABG Sodium 136.9 mmol/L (136.0-145.0) 11/19/20 03:19 ABG Potassium 2.8 mmol/L (3.40-4.50) L 11/19/20 03:19 ABG Chloride 103.0 mmol/L (98-107) 11/19/20 03:19 ABG Glucose 102 mg/dL (65-95) H 11/19/20 03:19 Carboxyhemoglobin 0.3 (0.5-1.5) L 11/19/20 03:19 FiO2 % 60.0 11/19/20 03:19 Sodium 144 mmol/L (137-145) 11/19/20 04:00 Potassium 2.9 mmol/L (3.6-5.0) L* D 11/19/20 04:00 Chloride 103.2 mmol/L (98-107) 11/19/20 04:00 Carbon Dioxide 31 mmol/L (22-30) H 11/19/20 04:00 Anion Gap 13 mmol/L 11/19/20 04:00 BUN 51 mg/dL (7-17) H 11/19/20 04:00 Creatinine 1.1 mg/dL (0.6-1.2) 11/19/20 04:00 Estimated GFR 47 ml/min 11/19/20 04:00 BUN/Creatinine Ratio 46 % 11/19/20 04:00 Glucose 97 mg/dL (65-100) 11/19/20 04:00 POC Glucose 186 mg/dL (70-105) H 11/19/20 17:28 Hemoglobin A1c 6.6 % (4-6) H 11/12/20 05:07 Lactic Acid 2.10 mmol/L (0.7-2.0) H* 11/16/20 Unknown Calcium 6.7 mg/dL (8.4-10.2) L D 11/19/20 04:00 Phosphorus 1.90 mg/dL (2.5-4.5) L 11/19/20 04:00 Magnesium 1.80 mg/dL (1.7-2.3) 11/19/20 04:00 Ferritin 224.1 ng/mL (10.0-200.0) H 11/17/20 09:59 Total Bilirubin 0.30 mg/dL (0.1-1.2) 11/16/20 Unknown AST 171 units/L (5-40) H 11/16/20 Unknown ALT 268 units/L (7-56) H 11/16/20 Unknown Alkaline Phosphatase 63 units/L (35-129) 11/16/20 Unknown Lactate Dehydrogenase 634 units/L (91-180) H 11/19/20 04:00 Troponin T < 0.010 ng/mL (0.00-0.029) 11/11/20 13:39 C-Reactive Protein 1.40 mg/dL (0.00-1.30) H 11/19/20 04:00 Total Protein 4.3 g/dL (6.3-8.2) L 11/16/20 Unknown Albumin 1.9 g/dL (3.9-5) L 11/16/20 Unknown Albumin/Globulin Ratio 0.8 % 11/16/20 Unknown Lipase 55 units/L (13-60) 11/11/20 13:39 Procalcitonin < 0.05 ng/mL (<0.15) 11/11/20 16:59 Arterial Blood Glucose 102 mg/dL (65-95) H 11/19/20 03:19 Arterial Blood Ionized Calcium 3.7 mg/dL (4.6-5.3) L 11/19/20 03:19 Urine Color Red (Yellow) 11/14/20 06:15 Urine Turbidity Turbid (Clear) 11/14/20 06:15 Urine pH TNR 11/14/20 06:15 Ur Specific Rice 1.029 (1.003-1.030) 11/11/20 Unknown Urine Protein TNR 11/14/20 06:15 Urine Glucose (UA) Color interference mg/dL (Negative) 11/14/20 06:15 Urine Ketones Color interference mg/dL (Negative) 11/14/20 06:15 Urine Blood Sm (Negative) 11/11/20 Unknown Urine Nitrite TNR 11/14/20 06:15 Ur Reducing Substances TNR 11/14/20 06:15 Urine Bilirubin Color interference (Negative) 11/14/20 06:15 Urine Ictotest TNR 11/14/20 06:15 Urine Urobilinogen TNR 11/14/20 06:15 Ur Leukocyte Esterase TNR 11/14/20 06:15 Urine WBC (Auto) > 182.0 /HPF (0.0-6.0) H 11/14/20 06:15 Urine RBC (Auto) > 182.0 /HPF (0.0-6.0) 11/14/20 06:15 U Epithel Cells (Auto) 24.0 /HPF (0-13.0) H 11/14/20 06:15 Urine WBC Clumps 3+ /HPF 11/14/20 06:15 Urine Creatinine 80.2 mg/dL (0.1-20.0) H 11/14/20 06:15 Urine Sodium 28 mmol/L 11/14/20 06:15 Coronavirus (PCR) Positive (Negative) A 11/11/20 Unknown Blood Type A POSITIVE 11/11/20 15:00 Antibody Screen Negative 11/11/20 15:00 Microbiology: Microbiology 11/14/20 Unknown Peripheral/Venous Blood Culture - Preliminary NO GROWTH AFTER 4 DAYS 11/14/20 Unknown Peripheral/Venous Blood Culture - Preliminary NO GROWTH AFTER 4 DAYS Lind/IV: Voiding Method Indwelling Catheter Active Medications - Current Medications Current Medications: Generic Name Dose Route Start Last Admin Trade Name Freq PRN Reason Stop Dose Admin Acetaminophen 650 mg 11/11/20 22:11 11/19/20 11:30 Acetaminophen 325 Mg Tab PO 650 mg Q4H PRN Administration Pain MILD(1-3)/Fever >100.5/ERAZO Albuterol 2.5 mg 11/13/20 07:40 Albuterol 2.5 Mg/3 Ml Nebu IH Q4HRT PRN Shortness Of Breath Lipase/Protease/Amylase 1 each 11/13/20 17:32 Lipase 10,500/Protease 25,000/Amylase 43,750 (Units) Dr Weiss FEEDTUBE PRN PRN For Clogged Feeding Tube Ascorbic Acid 500 mg 11/13/20 22:00 11/19/20 10:08 Ascorbic Acid 500 Mg Tab PO 500 mg BID CARLOS Administration Baclofen 10 mg 11/11/20 22:09 Baclofen 10 Mg Tab PO TID PRN MUSCLE SPASMS & PAIN Calcium Carbonate/Glycine 1,250 mg 11/19/20 10:00 11/19/20 10:52 Calcium Carbonate 1250 Mg/5 Ml Oral Liqd FEEDTUBE 11/21/20 23:59 1,250 mg QDAY CARLOS Administration Dexamethasone 6 mg 11/13/20 10:00 11/19/20 13:26 Dexamethasone 4 Mg/Ml Vial IV 11/22/20 10:01 6 mg Q24HR CARLOS Administration Dextrose 50 ml 11/13/20 16:43 11/14/20 01:12 Dextrose 50% In Water (25gm) 50 Ml Syringe IV 50 ml Q30MIN PRN Administration Hypoglycemia Protocol Fentanyl 50 mcg 11/13/20 05:33 Fentanyl 100 Mcg/2 Ml Inj IV Q10MIN PRN ANALGESIA Heparin Sodium (Porcine) 3,000 unit 11/13/20 05:04 Heparin 10,000 Units/10 Ml Vial 40 unit/kg (3000 unit) IV Q6H PRN Anti-Xa Assay < 0.1 units/ml Hydromorphone HCl 0.5 mg 11/11/20 22:11 Hydromorphone 1 Mg/1 Ml Inj IV Q3H PRN Pain , Severe (7-10) Hydrophilic Ointment 1 applic 11/13/20 05:33 Lip Therapy Vaseline TP Q2HR PRN Dry Lips Heparin Sodium/Sodium Chloride 25,000 unit in 500 mls @ 23 mls/hr 11/13/20 06:00 11/19/20 16:07 Heparin/ 0.45% Nacl-25,000 Unit/500 Ml IV 900 units/hr TITR CARLOS 18 mls/hr Administration Protocol 1,150 UNITS/HR Fentanyl Citrate 2,000 mcg in 100 mls @ 3.81 mls/hr 11/13/20 06:00 11/19/20 08:00 Fentanyl Drip Premix IV 0 mcg/kg/hr TITR CARLOS 0 mls/hr Titration Protocol 1 MCG/KG/HR NORepinephrine/NS 8 MG-250 ML 8 mg in 250 mls @ 3.75 mls/hr 11/13/20 15:00 11/19/20 16:30 Norepinephrine/Ns 8 Mg-250 Ml (Double Conc) IV 4 mcg/min TITRATE CARLOS 7.5 mls/hr Titration Protocol 2 MCG/MIN Vasopressin 20 unit/ Sodium 101 mls @ 9.09 mls/hr 11/19/20 09:00 11/19/20 11:38 Chloride IV 0.03 units/min TITR CARLOS 9.09 mls/hr Administration Protocol 0.03 UNITS/MIN Pantoprazole Sodium 80 mg/ 100 mls @ 10 mls/hr 11/19/20 15:00 11/19/20 16:02 Sodium Chloride IV 8 mg/hr DIRECT CARLOS 10 mls/hr Administration 8 MG/HR Sodium Chloride 500 mls @ 0 mls/hr 11/19/20 18:10 Nacl 0.9% 500 Ml IV 11/20/20 06:00 ONCE NR As Directed Insulin Human Regular 0 units 11/13/20 17:00 11/19/20 10:52 Insulin Regular, Human 100 Units/1 Ml SUB-Q Not Given Q6H COUNT INCLUDES THE [facility] Protocol Metolazone 5 mg 11/18/20 15:00 11/19/20 10:17 Metolazone 5 Mg Tab PO Not Given QDAY COUNT INCLUDES THE [facility] Multi-Ingred Cream/Lotion/Oil/Oint 1 applic 11/13/20 05:33 Mineral Oil/Petrolatum, White Ophth Oint 3.5 Gm OU Q4HR PRN Dry Eye(s) Ondansetron HCl 4 mg 11/11/20 22:11 Ondansetron 4 Mg/2 Ml Inj IV Q3H PRN Nausea And Vomiting Oxycodone/Acetaminophen 1 tab 11/11/20 22:11 Oxycodone /Acetaminophen 5-325mg Tab PO Q6H PRN Pain, Moderate (4-6) Paroxetine HCl 10 mg 11/12/20 10:00 11/19/20 10:10 Paroxetine 10 Mg Tab PO Not Given DAILY CARLOS Ropinirole HCl 1 mg 11/12/20 22:00 11/18/20 21:31 Ropinirole 1 Mg Tab PO 1 mg QHS CARLOS Administration Simple Syrup 15 ml 11/13/20 17:32 Simple Syrup 15 Ml FEEDTUBE PRN PRN Hypoglycemia Simple Syrup 30 ml 11/13/20 17:32 Simple Syrup 15 Ml FEEDTUBE PRN PRN Hypoglycemia Sodium Bicarbonate 325 mg 11/13/20 17:32 Sodium Bicarbonate 325 Mg Tab FEEDTUBE PRN PRN For Clogged Feeding Tube Sodium Chloride 10 ml 11/12/20 10:00 11/19/20 10:10 Sodium Chloride 0.9% 10 Ml Flush Syringe IV 10 ml BID CARLOS Administration Sodium Chloride 10 ml 11/11/20 22:11 Sodium Chloride 0.9% 10 Ml Flush Syringe IV PRN PRN LINE FLUSH Zinc Sulfate 220 mg 11/13/20 22:00 11/19/20 10:08 Zinc Sulfate 220 Mg Cap PO 220 mg BID CARLOS Administration Nutrition/Malnutrition Assess - Dietary Evaluation Nutrition/Malnutrition Findings: Nutrition Notes Start: 11/13/20 17:25 Freq: Status: Active Protocol: Document 11/18/20 13:11 DWAYNE (Rec: 11/18/20 13:13 DWAYNE [id number]) Nutrition Notes Initial or Follow up Reassessment Current Diagnosis Sepsis,Respiratory Failure Other Pertinent Diagnosis COVID-19 (+), Dehydration, (L) renal stone Current Diet None ordered Labs/Tests Na 146 BUN 62 Cr 1.7 Mg 1.2 Pertinent Medications Reglan, norepi Height 5 ft 4 in Weight 84.2 kg [place] Body Weight (kg) 54.54 BMI 31.8 Weight Status Overweight Subjective/Other Information Per CAKE FORMER Azad, okay to restart TF at 10 ml/hr and increase as tolerated. Burn Absent Trauma Absent Current % PO Negligible Minimum of two criteria No #1 Nutrition Diagnosis Inadequate oral intake Diagnosis Progress(for reassessment Continues documentation) Is patient on ventilator? Yes Is Patient Ambulatory and/or Out of Bed No REE-([facility]-confined to bed) [phone] Calculation Used for Recommendations [facility] Additional Notes Pro needs 1.2-2g/k-154g/ day Fluid needs 1ml/kcal Nutrition Intervention Change Diet Order: Restart TF Nutrition Support: Vital AF 1.2 at 50ml/hr with 75ml water flush q4h. Kcal 1,440 Protein (gm) 90 Fluid (mL) 973 Goal #1 TF tolerance Goal #2 TF to meet at least 75% energy and pro needs Anticipated Discharge Needs: Unable to identify at this time Follow-Up By: 11/20/20 Additional Comments F/u: TF restart and tolerance
[2020-11-19 20:17] LABS: Hematocrit 27.2 % (30.3-42.9); Mean Corpuscular HGB Conc 33 % (30-34); Mean Corpuscular Volume 87 fl (79-97); Platelet Count 164 K/mm3 (140-440); Red Blood Count 3.14 M/mm3 (3.65-5.03); Red Cell Distribution Width 14.3 % (13.2-15.2)
[2020-11-19 20:30] LABS: INR 2.18 (0.87-1.13)
[2020-11-19 20:32] LABS: Albumin 2.3 g/dL (3.9-5); Calcium 6.9 mg/dL (8.4-10.2)
[2020-11-19] MEDS: rOPINIRole 1 MG TAB PO SCH (21:24)
[2020-11-19] MEDS ORDERED: PANTOPRAZOLE 40 MG INJ IV SCH (22:00)
[2020-11-20 00:04] LABS: Bacteria,Urine 4+ /HPF (Negative); Bilirubin,Urine NEG (Negative); Blood,Urine LG (Negative); Color,Urine Amber (Yellow); Mucus,Urine FEW /HPF; Urobilinogen,Urine < 2.0 mg/dL (<2.0)
[2020-11-20 00:06] LABS: RBC,Urine > 182.0 /HPF (0.0-6.0); WBC,Urine > 182.0 /HPF (0.0-6.0)
[2020-11-20] MEDS: INSULIN REGULAR, HUMAN 100 UNITS/1 ML SUB-Q SCH ×6 (00:35→23:36)
[2020-11-20 05:02] LABS: Hematocrit 30.1 % (30.3-42.9); Mean Corpuscular HGB Conc 33 % (30-34); Mean Corpuscular Volume 87 fl (79-97); Platelet Count 195 K/mm3 (140-440); Red Blood Count 3.48 M/mm3 (3.65-5.03); Red Cell Distribution Width 14.5 % (13.2-15.2)
[2020-11-20 05:16] LABS: Calcium 6.3 mg/dL (8.4-10.2)
[2020-11-20 05:57] LABS: Band Neutrophils # (Manual) 2.7 K/mm3; Hypochromasia Few; Platelet Estimate Consistent w Auto; Total Cells Counted 100
[2020-11-20] MEDS: PANTOPRAZOLE 80 MG in SODIUM CHLORIDE 0.9% 100 ML IV SCH ×2 (06:29→16:31)
[2020-11-20] MEDS ORDERED: CALCIUM GLUCONATE 2,000 MG in SODIUM CHLORIDE 0.9% 100 ML IV ONE (08:45)
[2020-11-20] MEDS: PARoxetine 10 MG TAB PO SCH (09:49)
[2020-11-20] MEDS: ASCORBIC ACID 500 MG TAB PO SCH ×2 (09:49→21:32)
[2020-11-20] MEDS: dexAMETHasone 4 MG/ML VIAL IV SCH (09:49)
[2020-11-20] MEDS: ZINC SULFATE 220 MG CAP PO SCH ×2 (09:49→21:32)
[2020-11-20] MEDS: CALCIUM CARBONATE 1250 MG/5 ML ORAL LIQD FEEDTUBE SCH (09:49)
[2020-11-20] MEDS ORDERED: EPINEPHrine 1 MG/10 ML SYRINGE ONE (10:22)
[2020-11-20] MEDS: NORepinephrine/NS 8 MG-250 ML 8 MG/250 ML INFUS..BTL IV SCH ×2 (10:22→16:31)
[2020-11-20] MEDS ORDERED: D5W/0.45% NACL 1,000 ML IV SCH (11:00)
--- NOTE | 2020-11-20 11:16 | Gastroenterology Progress Note ---
Assessment and Plan 85 yo female with pmh of obesity, chronic UTI, and depression admitted on 11/11/2020 for nausea/vomiting and decreased PO intake. # COVID infection # Respiratory failure # Septic shock # Intra-arterial line placement in left carotid artery # GI bleed - review of the initial CT a/p without contrast on 11/11 with gaseous distension of the stomach without obvious cause. No signs of bowel obstruction. - currently on heparin drip for carotid artery line, which is a risk for thrombus and thromboembolic event with CVA. - hgb trended down from 16 on admission to 10 on 11/19/2020 and down to 8.9. Trended up to 10 post 1 unit of PRBC. - INR at 2.14, suspect due to sepsis. - rectal tube with black tarry stools overnight. - NG tube irrigation with green fluid but no blood or coffee ground . - Per family, normal colonoscopy 3-4 years ago. - ddx for GI bleeding source with PUD, gastritis, diverticular bleed. - currently patient requiring pressor with septic shock, COVID pneumonia, respiratory failure and not stable for transfer or for CT angio. Rec - monitor H/H serially and transfuse as needed. - PPI IV - plan for EGD today. - regarding anticoagulation, it is difficult situation given risk with current bleeding as well as risk for thrombus and stroke with holding anticoagulation. If it became a point that patient is bleeding significant enough leading to hemodynamic instability, may need to reconsider holding anticoagulation. Doubt that current bleeding is the main cause of state of shock given Hgb at 10 and ot her driving causes of septic shock and respiratory failure. Currently still on heparin drip. - discussed with patient's daughter, Ms. Azevedo regarding patient's conditions and difficult situation with the anticoagulation. - also discussed with patient's daughter, Ms. Azevedo regarding EGD including risks of potential complications including higher bleeding risk given patient on heparin drip and that patient will received sedation with ICU nurse as needed and not anesthesia team given patient is supported with vent. Patient's daughter gave consent for the procedure over the phone with endo nurse witness and agreeable. - recommend CT a/p with IV contrast once patient's more stable to go down for the scan. - discussed case with IMS, community nutrition educator, and vascular. Subjective Date of service: 11/20/20 Principal diagnosis: Ac hypoxemic resp failure; COVID-19 infxn; Pneumonia; KATLYN; AMS; Sepsis Interval history: Patient received one unit of PRBC overnight. continues to have black stool through the rectal tube. On levophed and off sedation. Objective - Constitutional Vitals: Temp Pulse Resp BP Pulse Ox 97.8 F 105 H 29 H 141/98 97 11/20/20 03:47 11/20/20 08:44 11/20/20 07:15 11/20/20 08:44 11/20/20 08:44 General appearance: no acute distress - Respiratory Respiratory effort: other (on the vent) - Cardiovascular Heart Rate: 110 Rhythm: regular - Extremities Extremity abnormal: edema - Gastrointestinal General gastrointestinal: Present: soft, non-tender, non-distended - Labs CBC & Chem 7: 11/20/20 04:09 11/20/20 04:09 Labs: Laboratory Results - last 24 hr 11/19/20 11/19/20 11/19/20 14:10 17:28 19:45 WBC 22.7 H RBC 3.14 L Hgb 8.9 L 9.0 L Hct 27.0 L 27.2 L MCV 87 MCH 29 MCHC 33 RDW 14.3 Plt Count 164 Add Manual Diff Total Counted Seg Neuts % (Manual) Band Neutrophils % Lymphocytes % (Manual) Monocytes % (Manual) Metamyelocytes % Nucleated RBC % Seg Neutrophils # Man Band Neutrophils # Lymphocytes # (Manual) Abs React Lymphs (Man) Monocytes # (Manual) Eosinophils # (Manual) Basophils # (Manual) Metamyelocytes # Myelocytes # Promyelocytes # Blast Cells # WBC Morphology Hypersegmented Neuts Hyposegmented Neuts Hypogranular Neuts Smudge Cells Toxic Granulation Toxic Vacuolation Dohle Bodies Pelger-Huet Anomaly [place] Rods Platelet Estimate Clumped Platelets Plt Clumps, EDTA Large Platelets Giant Platelets Platelet Satelliting Plt Morphology Comment RBC Morphology Dimorphic RBCs Polychromasia Hypochromasia Poikilocytosis Anisocytosis Microcytosis Macrocytosis Spherocytes Pappenheimer Bodies Sickle Cells Target Cells Tear Drop Cells Ovalocytes Helmet Cells [place] Bodies Hus[place] Rings [place] Cells Bite Cells Crenated Cell Elliptocytes Acanthocytes (Spur) Rouleaux Hemoglobin C Crystals Schistocytes Malaria parasites Mauro Bodies Hem Pathologist Commnt PT INR Heparin Anti-Xa Level ABG pH POC ABG pCO2 POC ABG pO2 POC ABG HCO3 ABG O2 Saturation POC ABG Base Excess ABG Hemoglobin ABG Oxyhemoglobin ABG Methemoglobin ABG Sodium ABG Potassium ABG Chloride ABG Glucose Carboxyhemoglobin FiO2 % Sodium Potassium Chloride Carbon Dioxide Anion Gap BUN Creatinine Estimated GFR BUN/Creatinine Ratio Glucose POC Glucose 186 H Lactic Acid Calcium Total Bilirubin AST ALT Alkaline Phosphatase Total Protein Albumin Albumin/Globulin Ratio Arterial Blood Glucose Arterial Blood Ionized Calcium Urine Color Urine Turbidity Urine pH Ur Specific [place] Urine Protein Urine Glucose (UA) Urine Ketones Urine Blood Urine Nitrite Urine Bilirubin Urine Urobilinogen Ur Leukocyte Esterase Urine WBC (Auto) Urine RBC (Auto) U Epithel Cells (Auto) Urine Bacteria (Auto) Ur Transition Epith Cell Urine Mucus Ur Yeast w Hyphae Urine Yeast (Budding) Blood Type Antibody Screen Crossmatch 11/19/20 11/19/20 11/19/20 19:45 19:45 19:45 WBC RBC Hgb Hct MCV MCH MCHC RDW Plt Count Add Manual Diff Total Counted Seg Neuts % (Manual) Band Neutrophils % Lymphocytes % (Manual) Monocytes % (Manual) Metamyelocytes % Nucleated RBC % Seg Neutrophils # Man Band Neutrophils # Lymphocytes # (Manual) Abs React Lymphs (Man) Monocytes # (Manual) Eosinophils # (Manual) Basophils # (Manual) Metamyelocytes # Myelocytes # Promyelocytes # Blast Cells # WBC Morphology Hypersegmented Neuts Hyposegmented Neuts Hypogranular Neuts Smudge Cells Toxic Granulation Toxic Vacuolation Dohle Bodies Pelger-Huet Anomaly Vernell Rods Platelet Estimate Clumped Platelets Plt Clumps, EDTA Large Platelets Giant Platelets Platelet Satelliting Plt Morphology Comment RBC Morphology Dimorphic RBCs Polychromasia Hypochromasia Poikilocytosis Anisocytosis Microcytosis Macrocytosis Spherocytes Pappenheimer Bodies Sickle Cells Target Cells Tear Drop Cells Ovalocytes Helmet Cells [place] Bodies Huslia Rings [place] Cells Bite Cells Crenated Cell Elliptocytes Acanthocytes (Spur) Rouleaux Hemoglobin C Crystals Schistocytes Malaria parasites Mauro Bodies Hem Pathologist Commnt PT 24.6 H INR 2.18 H Heparin Anti-Xa Level ABG pH POC ABG pCO2 POC ABG pO2 POC ABG HCO3 ABG O2 Saturation POC ABG Base Excess ABG Hemoglobin ABG Oxyhemoglobin ABG Methemoglobin ABG Sodium ABG Potassium ABG Chloride ABG Glucose Carboxyhemoglobin FiO2 % Sodium 144 Potassium 4.2 D Chloride 104.7 Carbon Dioxide 23 D Anion Gap 21 BUN 58 H Creatinine 1.0 Estimated GFR 53 BUN/Creatinine Ratio 58 Glucose 192 H POC Glucose Lactic Acid 2.20 H* Calcium 6.9 L Total Bilirubin 0.50 AST 119 H ALT 143 H Alkaline Phosphatase 91 Total Protein 4.0 L Albumin 2.3 L Albumin/Globulin Ratio 1.4 Arterial Blood Glucose Arterial Blood Ionized Calcium Urine Color Urine Turbidity Urine pH Ur Specific [place] Urine Protein Urine Glucose (UA) Urine Ketones Urine Blood Urine Nitrite Urine Bilirubin Urine Urobilinogen Ur Leukocyte Esterase Urine WBC (Auto) Urine RBC (Auto) U Epithel Cells (Auto) Urine Bacteria (Auto) Ur Transition Epith Cell Urine Mucus Ur Yeast w Hyphae Urine Yeast (Budding) Blood Type Antibody Screen Crossmatch 11/19/20 11/19/20 11/19/20 19:45 22:00 23:25 WBC RBC Hgb Hct MCV MCH MCHC RDW Plt Count Add Manual Diff Total Counted Seg Neuts % (Manual) Band Neutrophils % Lymphocytes % (Manual) Monocytes % (Manual) Metamyelocytes % Nucleated RBC % Seg Neutrophils # Man Band Neutrophils # Lymphocytes # (Manual) Abs React Lymphs (Man) Monocytes # (Manual) Eosinophils # (Manual) Basophils # (Manual) Metamyelocytes # Myelocytes # Promyelocytes # Blast Cells # WBC Morphology Hypersegmented Neuts Hyposegmented Neuts Hypogranular Neuts Smudge Cells Toxic Granulation Toxic Vacuolation Dohle Bodies Pelger-Huet Anomaly Vernell Rods Platelet Estimate Clumped Platelets Plt Clumps, EDTA Large Platelets Giant Platelets Platelet Satelliting Plt Morphology Comment RBC Morphology Dimorphic RBCs Polychromasia Hypochromasia Poikilocytosis Anisocytosis Microcytosis Macrocytosis Spherocytes Pappenheimer Bodies Sickle Cells Target Cells Tear Drop Cells Ovalocytes Helmet Cells [place] Bodies Hus[place] Rings [place] Cells Bite Cells Crenated Cell Elliptocytes Acanthocytes (Spur) Rouleaux Hemoglobin C Crystals Schistocytes Malaria parasites Mauro Bodies Hem Pathologist Commnt PT INR Heparin Anti-Xa Level > 2.00 H ABG pH POC ABG pCO2 POC ABG pO2 POC ABG HCO3 ABG O2 Saturation POC ABG Base Excess ABG Hemoglobin ABG Oxyhemoglobin ABG Methemoglobin ABG Sodium ABG Potassium ABG Chloride ABG Glucose Carboxyhemoglobin FiO2 % Sodium Potassium Chloride Carbon Dioxide Anion Gap BUN Creatinine Estimated GFR BUN/Creatinine Ratio Glucose POC Glucose 155 H Lactic Acid Calcium Total Bilirubin AST ALT Alkaline Phosphatase Total Protein Albumin Albumin/Globulin Ratio Arterial Blood Glucose Arterial Blood Ionized Calcium Urine Color Urine Turbidity Urine pH Ur Specific [place] Urine Protein Urine Glucose (UA) Urine Ketones Urine Blood Urine Nitrite Urine Bilirubin Urine Urobilinogen Ur Leukocyte Esterase Urine WBC (Auto) Urine RBC (Auto) U Epithel Cells (Auto) Urine Bacteria (Auto) Ur Transition Epith Cell Urine Mucus Ur Yeast w Hyphae Urine Yeast (Budding) Blood Type A POSITIVE Antibody Screen Negative Crossmatch See Detail 11/19/20 11/20/20 11/20/20 23:45 04:00 04:09 WBC RBC Hgb Hct MCV MCH MCHC RDW Plt Count Add Manual Diff Total Counted Seg Neuts % (Manual) Band Neutrophils % Lymphocytes % (Manual) Monocytes % (Manual) Metamyelocytes % Nucleated RBC % Seg Neutrophils # Man Band Neutrophils # Lymphocytes # (Manual) Abs React Lymphs (Man) Monocytes # (Manual) Eosinophils # (Manual) Basophils # (Manual) Metamyelocytes # Myelocytes # Promyelocytes # Blast Cells # WBC Morphology Hypersegmented Neuts Hyposegmented Neuts Hypogranular Neuts Smudge Cells Toxic Granulation Toxic Vacuolation Dohle Bodies Pelger-Huet Anomaly Vernell Rods Platelet Estimate Clumped Platelets Plt Clumps, EDTA Large Platelets Giant Platelets Platelet Satelliting Plt Morphology Comment RBC Morphology Dimorphic RBCs Polychromasia Hypochromasia Poikilocytosis Anisocytosis Microcytosis Macrocytosis Spherocytes Pappenheimer Bodies Sickle Cells Target Cells Tear Drop Cells Ovalocytes Helmet Cells [place] Bodies Hus[place] Rings [place] Cells Bite Cells Crenated Cell Elliptocytes Acanthocytes (Spur) Rouleaux Hemoglobin C Crystals Schistocytes Malaria parasites Mauro Bodies Hem Pathologist Commnt PT INR Heparin Anti-Xa Level ABG pH 7.595 H POC ABG pCO2 25.2 L POC ABG pO2 69.0 L POC ABG HCO3 23.9 ABG O2 Saturation 94.7 POC ABG Base Excess 2.9 ABG Hemoglobin 9.8 L ABG Oxyhemoglobin 94.2 ABG Methemoglobin 0.3 ABG Sodium 137.7 ABG Potassium 3.9 ABG Chloride 110.0 H ABG Glucose 178 H Carboxyhemoglobin 0.2 L FiO2 % 50.0 Sodium 147 H Potassium 4.1 Chloride 107.8 H Carbon Dioxide 27 Anion Gap 16 BUN 63 H Creatinine 1.3 H Estimated GFR 39 BUN/Creatinine Ratio 48 Glucose 151 H POC Glucose Lactic Acid Calcium 6.3 L Total Bilirubin AST ALT Alkaline Phosphatase Total Protein Albumin Albumin/Globulin Ratio Arterial Blood Glucose 178 H Arterial Blood Ionized Calcium 3.7 L Urine Color Janay Urine Turbidity Cloudy Urine pH 5.0 Ur Specific [place] 1.015 Urine Protein 100 mg/dl Urine Glucose (UA) Neg Urine Ketones Neg Urine Blood Lg Urine Nitrite Neg Urine Bilirubin Neg Urine Urobilinogen < 2.0 Ur Leukocyte Esterase Mod Urine WBC (Auto) > 182.0 H Urine RBC (Auto) > 182.0 U Epithel Cells (Auto) 3.0 Urine Bacteria (Auto) 4+ Ur Transition Epith Cell 4 Urine Mucus Few Ur Yeast w Hyphae 2+ Urine Yeast (Budding) 3+ Blood Type Antibody Screen Crossmatch 11/20/20 11/20/20 11/20/20 04:09 04:09 05:13 WBC 20.9 H RBC 3.48 L Hgb 10.0 L Hct 30.1 L MCV 87 MCH 29 MCHC 33 RDW 14.5 Plt Count 195 Add Manual Diff Complete Total Counted 100 Seg Neuts % (Manual) 77.0 H Band Neutrophils % 13.0 Lymphocytes % (Manual) 3.0 L Monocytes % (Manual) 3.0 Metamyelocytes % 4.0 Nucleated RBC % Not Reportable Seg Neutrophils # Man 16.1 H Band Neutrophils # 2.7 Lymphocytes # (Manual) 0.6 L Abs React Lymphs (Man) 0.0 Monocytes # (Manual) 0.6 Eosinophils # (Manual) 0.0 Basophils # (Manual) 0.0 Metamyelocytes # 0.8 Myelocytes # 0.0 Promyelocytes # 0.0 Blast Cells # 0.0 WBC Morphology Not Reportable Hypersegmented Neuts Not Reportable Hyposegmented Neuts Not Reportable Hypogranular Neuts Not Reportable Smudge Cells Not Reportable Toxic Granulation Not Reportable Toxic Vacuolation Not Reportable Dohle Bodies Not Reportable Pelger-Huet Anomaly Not Reportable Vernell Rods Not Reportable Platelet Estimate Consistent w auto Clumped Platelets Not Reportable Plt Clumps, EDTA Not Reportable Large Platelets Not Reportable Giant Platelets Not Reportable Platelet Satelliting Not Reportable Plt Morphology Comment Not Reportable RBC Morphology Not Reportable Dimorphic RBCs Not Reportable Polychromasia Few Hypochromasia Few Poikilocytosis Not Reportable Anisocytosis Not Reportable Microcytosis Not Reportable Macrocytosis Not Reportable Spherocytes Not Reportable Pappenheimer Bodies Not Reportable Sickle Cells Not Reportable Target Cells Not Reportable Tear Drop Cells Not Reportable Ovalocytes Not Reportable Helmet Cells Not Reportable [place] Bodies Not Reportable [place] Rings Not Reportable [place] Cells Not Reportable Bite Cells Not Reportable Crenated Cell Not Reportable Elliptocytes Not Reportable Acanthocytes (Spur) Not Reportable Rouleaux Not Reportable Hemoglobin C Crystals Not Reportable Schistocytes Not Reportable Malaria parasites Not Reportable Mauro Bodies Not Reportable Hem Pathologist Commnt No PT INR Heparin Anti-Xa Level 0.46 ABG pH POC ABG pCO2 POC ABG pO2 POC ABG HCO3 ABG O2 Saturation POC ABG Base Excess ABG Hemoglobin ABG Oxyhemoglobin ABG Methemoglobin ABG Sodium ABG Potassium ABG Chloride ABG Glucose Carboxyhemoglobin FiO2 % Sodium Potassium Chloride Carbon Dioxide Anion Gap BUN Creatinine Estimated GFR BUN/Creatinine Ratio Glucose POC Glucose 126 H Lactic Acid Calcium Total Bilirubin AST ALT Alkaline Phosphatase Total Protein Albumin Albumin/Globulin Ratio Arterial Blood Glucose Arterial Blood Ionized Calcium Urine Color Urine Turbidity Urine pH Ur Specific [place] Urine Protein Urine Glucose (UA) Urine Ketones Urine Blood Urine Nitrite Urine Bilirubin Urine Urobilinogen Ur Leukocyte Esterase Urine WBC (Auto) Urine RBC (Auto) U Epithel Cells (Auto) Urine Bacteria (Auto) Ur Transition Epith Cell Urine Mucus Ur Yeast w Hyphae Urine Yeast (Budding) Blood Type Antibody Screen Crossmatch
--- NOTE | 2020-11-20 11:29 | Progress Note ---
Assessment and Plan 1. Acute kidney injury: KATLYN in the setting of severe Covid infection. Patient is also hypotensive. Received IV contrast 11/13. CT abdomen showed non-obstructive 7 mm distal left ureteral stone. Low FeNa. Monitor renal function. Creatinine level is better. Avoid nephrotoxic agents. Meds dosage based on GFR. 2. FEN: Hypernatremia, on Metolazone, monitor. Hyperchloremic metabolic acidosis, improved, monitor. Hypokalemia, replete K as needed, monitor. Replete Phos. Monitor lytes and volume status. 3. Acute respiratory failure with hypoxemia: 2/2 Covid PNA. Currently on vent, wean as tolerated. 4. Shock: On Levophed. Monitor. 5. Covid PNA: Followed by ID. 6. L ureteral stone: S/p b/l stent. Seen by Urologist. 7. Elevated ALT & AST: Trend. 8. DM type 2: Monitor. Subjective: Patient was seen and examined at the bedside. D/w ICU PA. Examination: General appearance: well-developed, appears stated age, intubated on vent HEENT: atraumatic, no icterus Neck: trachea midline Respiratory: MV sounds Heart: S1S2, regular, no murmur Abdomen: soft, bowel sounds heard, NT Integumentary: no obvious rash Neurologic: not responding Ext: dependent edema noted Subjective Date of service: 11/20/20 Principal diagnosis: Ac hypoxemic resp failure; COVID-19 infxn; Pneumonia; KATLYN; AMS; Sepsis Objective - Vital Signs Vital signs: Vital Signs - 12hr 11/19/20 11/19/20 11/19/20 23:31 23:33 23:45 Temperature Pulse Rate 96 H 100 H 99 H Pulse Rate [ From Monitor] Respiratory 28 H 22 22 Rate Blood Pressure 159/79 159/79 112/58 O2 Sat by Pulse 99 99 100 Oximetry 11/20/20 11/20/20 11/20/20 00:00 00:01 00:15 Temperature 97.8 F Pulse Rate 99 H 100 H 98 H Pulse Rate [ 99 H From Monitor] Respiratory 23 24 24 Rate Blood Pressure 99/60 99/60 O2 Sat by Pulse 99 99 100 Oximetry 11/20/20 11/20/20 11/20/20 00:17 00:21 00:30 Temperature Pulse Rate 98 H 99 H 99 H Pulse Rate [ From Monitor] Respiratory 24 25 H Rate Blood Pressure 120/54 120/54 116/64 O2 Sat by Pulse 99 99 99 Oximetry 11/20/20 11/20/20 11/20/20 00:41 00:51 01:00 Temperature 98.8 F Pulse Rate 99 H 98 H Pulse Rate [ From Monitor] Respiratory 28 H 22 Rate Blood Pressure 116/64 126/67 O2 Sat by Pulse 99 99 Oximetry 11/20/20 11/20/20 11/20/20 01:01 01:15 01:31 Temperature Pulse Rate 98 H 99 H 100 H Pulse Rate [ From Monitor] Respiratory 24 25 H 24 Rate Blood Pressure 135/57 131/69 122/56 O2 Sat by Pulse 99 99 99 Oximetry 11/20/20 11/20/20 11/20/20 01:45 02:00 02:15 Temperature 99.0 F Pulse Rate 99 H 101 H 100 H Pulse Rate [ From Monitor] Respiratory 25 H 22 25 H Rate Blood Pressure 131/69 122/59 127/67 O2 Sat by Pulse 99 99 98 Oximetry 11/20/20 11/20/20 11/20/20 02:30 02:45 02:51 Temperature Pulse Rate 99 H 99 H 100 H Pulse Rate [ From Monitor] Respiratory 21 22 25 H Rate Blood Pressure 113/72 113/72 88/36 O2 Sat by Pulse 99 99 98 Oximetry 11/20/20 11/20/20 11/20/20 03:01 03:11 03:21 Temperature Pulse Rate 101 H 99 H 98 H Pulse Rate [ From Monitor] Respiratory 19 23 25 H Rate Blood Pressure 98/61 98/61 92/46 O2 Sat by Pulse 98 98 99 Oximetry 11/20/20 11/20/20 11/20/20 03:31 03:45 03:47 Temperature 97.8 F Pulse Rate 99 H 99 H Pulse Rate [ From Monitor] Respiratory 25 H 22 Rate Blood Pressure 111/37 111/37 O2 Sat by Pulse 98 98 Oximetry 11/20/20 11/20/20 11/20/20 03:57 04:00 04:15 Temperature Pulse Rate 99 H 98 H 103 H Pulse Rate [ 98 H From Monitor] Respiratory 46 H 24 Rate Blood Pressure 105/54 98/55 98/55 O2 Sat by Pulse 99 99 99 Oximetry 11/20/20 11/20/20 11/20/20 04:30 04:45 05:01 Temperature Pulse Rate 103 H 103 H 102 H Pulse Rate [ From Monitor] Respiratory 28 H 23 20 Rate Blood Pressure 103/64 103/64 113/45 O2 Sat by Pulse 96 100 100 Oximetry 11/20/20 11/20/20 11/20/20 05:15 05:31 05:45 Temperature Pulse Rate 103 H 104 H 104 H Pulse Rate [ From Monitor] Respiratory 21 29 H 28 H Rate Blood Pressure 113/45 148/82 148/82 O2 Sat by Pulse 100 100 100 Oximetry 11/20/20 11/20/20 11/20/20 06:01 06:15 06:31 Temperature Pulse Rate 105 H 105 H 105 H Pulse Rate [ From Monitor] Respiratory 27 H 24 29 H Rate Blood Pressure 115/36 115/36 125/91 O2 Sat by Pulse 100 100 Oximetry 11/20/20 11/20/20 11/20/20 06:45 07:01 07:15 Temperature Pulse Rate 106 H 104 H 102 H Pulse Rate [ From Monitor] Respiratory 17 29 H 29 H Rate Blood Pressure 200/125 125/91 125/91 O2 Sat by Pulse 100 100 Oximetry 11/20/20 11/20/20 11/20/20 07:31 07:45 08:01 Temperature Pulse Rate 102 H 103 H 104 H Pulse Rate [ From Monitor] Respiratory 29 H 29 H 25 H Rate Blood Pressure 84/18 154/94 125/50 O2 Sat by Pulse 100 100 100 Oximetry 11/20/20 11/20/20 11/20/20 08:15 08:31 08:44 Temperature Pulse Rate 103 H 104 H 105 H Pulse Rate [ From Monitor] Respiratory 28 H 53 H Rate Blood Pressure 139/63 139/63 141/98 O2 Sat by Pulse 100 97 Oximetry 11/20/20 11/20/20 11/20/20 08:45 09:01 09:15 Temperature Pulse Rate 105 H 105 H 110 H Pulse Rate [ From Monitor] Respiratory 19 21 18 Rate Blood Pressure 141/98 141/98 56/20 O2 Sat by Pulse Oximetry 11/20/20 11/20/20 11/20/20 09:30 09:45 10:01 Temperature Pulse Rate 112 H 116 H 125 H Pulse Rate [ From Monitor] Respiratory 25 H 26 H 22 Rate Blood Pressure 93/37 88/19 134/16 O2 Sat by Pulse 98 Oximetry 11/20/20 11/20/20 11/20/20 10:15 10:31 10:45 Temperature Pulse Rate 127 H 128 H 110 H Pulse Rate [ From Monitor] Respiratory 25 H 23 17 Rate Blood Pressure 134/16 164/65 164/65 O2 Sat by Pulse 100 100 99 Oximetry 11/20/20 11/20/20 11:01 11:15 Temperature Pulse Rate 97 H 123 H Pulse Rate [ From Monitor] Respiratory 21 25 H Rate Blood Pressure 42/28 169/48 O2 Sat by Pulse 99 Oximetry - Lab 11/21/20 00:27 11/20/20 04:09 Most recent lab results ABG pH 7.595 (7.320-7.450) H 11/20/20 04:00 ABG O2 Saturation 94.7 (0-100) 11/20/20 04:00 Calcium 6.3 mg/dL (8.4-10.2) L 11/20/20 04:09 Phosphorus 1.90 mg/dL (2.5-4.5) L 11/19/20 04:00 Magnesium 1.80 mg/dL (1.7-2.3) 11/19/20 04:00 Urine Creatinine 80.2 mg/dL (0.1-20.0) H 11/14/20 06:15 Urine Sodium 28 mmol/L 11/14/20 06:15 Medications & Allergies - Medications Allergies/Adverse Reactions: Allergies morphine Adverse Reaction (Verified 05/26/13 19:22) Nausea Home Medications: Home Medications Medication Instructions Recorded Confirmed Last Taken Type Acetaminophen [Tylenol] 325 mg PO DAILY #10 tablet 05/26/13 10/17/14 10/16/14 Rx Baclofen [Lioresal] 10 mg PO TID PRN 05/26/13 10/17/14 10/16/14 History Diazepam [Valium] 10 mg PO BID 05/26/13 10/17/14 10/16/14 History PARoxetine [Paxil] 10 mg PO DAILY 05/26/13 10/17/14 10/16/14 19:00 History Quetiapine Fumarate [SEROquel XR] 200 mg PO DAILY 05/26/13 10/17/14 10/16/14 History rOPINIRole [Requip] 1 mg PO QHS 05/26/13 10/17/14 10/16/14 19:00 History QUEtiapine [SEROquel] 200 mg PO QHS 05/28/13 10/17/14 10/16/14 19:00 History Famotidine [Pepcid] 10 mg PO BID #60 tablet 06/02/13 10/17/14 10/16/14 Rx levoFLOXacin [Levaquin] 750 mg PO QDAY #7 tablet 06/02/13 10/17/14 10/16/14 Rx metroNIDAZOLE [Flagyl] 500 mg PO Q8HR #30 tablet 06/02/13 10/17/14 10/16/14 Rx Hydromorphone HCl [Dilaudid] 4 mg PO 10/17/14 10/17/14 10/16/14 History Oxycodone HCl/Acetaminophen 1 each PO Q6HR PRN 10/17/14 10/17/14 10/16/14 History [Percocet 10-325 mg] Oxycodone HCl/Acetaminophen 1 each PO Q6HR PRN #30 tablet 10/18/14 Unknown Rx [Percocet 10-325 mg] Active Medications: Generic Name Dose Route Start Last Admin Trade Name Freq PRN Reason Stop Dose Admin Acetaminophen 650 mg 11/11/20 22:11 11/19/20 11:30 Acetaminophen 325 Mg Tab PO 650 mg Q4H PRN Administration Pain MILD(1-3)/Fever >100.5/ERAZO Albuterol 2.5 mg 11/13/20 07:40 Albuterol 2.5 Mg/3 Ml Nebu IH Q4HRT PRN Shortness Of Breath Lipase/Protease/Amylase 1 each 11/13/20 17:32 Lipase 10,500/Protease 25,000/Amylase 43,750 (Units) Dr Weiss FEEDTUBE PRN PRN For Clogged Feeding Tube Ascorbic Acid 500 mg 11/13/20 22:00 11/20/20 09:49 Ascorbic Acid 500 Mg Tab PO 500 mg BID CARLOS Administration Baclofen 10 mg 11/11/20 22:09 Baclofen 10 Mg Tab PO TID PRN MUSCLE SPASMS & PAIN Calcium Carbonate/Glycine 1,250 mg 11/19/20 10:00 11/20/20 09:49 Calcium Carbonate 1250 Mg/5 Ml Oral Liqd FEEDTUBE 11/21/20 23:59 1,250 mg QDAY CARLOS Administration Dexamethasone 6 mg 11/13/20 10:00 11/20/20 09:49 Dexamethasone 4 Mg/Ml Vial IV 11/22/20 10:01 6 mg Q24HR CARLOS Administration Dextrose 50 ml 11/13/20 16:43 11/14/20 01:12 Dextrose 50% In Water (25gm) 50 Ml Syringe IV 50 ml Q30MIN PRN Administration Hypoglycemia Protocol Fentanyl 50 mcg 11/13/20 05:33 Fentanyl 100 Mcg/2 Ml Inj IV Q10MIN PRN ANALGESIA Heparin Sodium (Porcine) 3,000 unit 11/13/20 05:04 Heparin 10,000 Units/10 Ml Vial 40 unit/kg (3000 unit) IV Q6H PRN Anti-Xa Assay < 0.1 units/ml Hydrophilic Ointment 1 applic 11/13/20 05:33 Lip Therapy Vaseline TP Q2HR PRN Dry Lips Heparin Sodium/Sodium Chloride 25,000 unit in 500 mls @ 23 mls/hr 11/13/20 06:00 11/20/20 05:37 Heparin/ 0.45% Nacl-25,000 Unit/500 Ml IV 900 units/hr TITR CARLOS 18 mls/hr Titration Protocol 1,150 UNITS/HR Fentanyl Citrate 2,000 mcg in 100 mls @ 3.81 mls/hr 11/13/20 06:00 11/20/20 10:01 Fentanyl Drip Premix IV 0 mcg/kg/hr TITR CARLOS 0 mls/hr Titration Protocol 1 MCG/KG/HR NORepinephrine/NS 8 MG-250 ML 8 mg in 250 mls @ 3.75 mls/hr 11/13/20 15:00 11/20/20 10:22 Norepinephrine/Ns 8 Mg-250 Ml (Double Conc) IV 30 mcg/min TITRATE CARLOS 56.25 mls/hr Administration Protocol 2 MCG/MIN Vasopressin 20 unit/ Sodium 101 mls @ 9.09 mls/hr 11/19/20 09:00 11/19/20 21:50 Chloride IV 0.03 units/min TITR CARLOS 9.09 mls/hr Administration Protocol 0.03 UNITS/MIN Pantoprazole Sodium 80 mg/ 100 mls @ 10 mls/hr 11/19/20 15:00 11/20/20 06:29 Sodium Chloride IV 8 mg/hr DIRECT CARLOS 10 mls/hr Administration 8 MG/HR Dextrose/Sodium Chloride 1,000 mls @ 42 mls/hr 11/20/20 11:00 D5/0.45ns IV 11/21/20 10:59 DIRECT [facility] Insulin Human Regular 0 units 11/13/20 17:00 11/20/20 07:02 Insulin Regular, Human 100 Units/1 Ml SUB-Q Not Given Q6H [facility] Protocol Metolazone 5 mg 11/18/20 15:00 11/19/20 10:17 Metolazone 5 Mg Tab PO Not Given QDAY [facility] Multi-Ingred Cream/Lotion/Oil/Oint 1 applic 11/13/20 05:33 Mineral Oil/Petrolatum, White Ophth Oint 3.5 Gm OU Q4HR PRN Dry Eye(s) Ondansetron HCl 4 mg 11/11/20 22:11 Ondansetron 4 Mg/2 Ml Inj IV Q3H PRN Nausea And Vomiting Paroxetine HCl 10 mg 11/12/20 10:00 11/20/20 09:49 Paroxetine 10 Mg Tab PO 10 mg DAILY CARLOS Administration Ropinirole HCl 1 mg 11/12/20 22:00 11/19/20 21:24 Ropinirole 1 Mg Tab PO 1 mg QHS CARLOS Administration Simple Syrup 15 ml 11/13/20 17:32 Simple Syrup 15 Ml FEEDTUBE PRN PRN Hypoglycemia Simple Syrup 30 ml 11/13/20 17:32 Simple Syrup 15 Ml FEEDTUBE PRN PRN Hypoglycemia Sodium Bicarbonate 325 mg 11/13/20 17:32 Sodium Bicarbonate 325 Mg Tab FEEDTUBE PRN PRN For Clogged Feeding Tube Sodium Chloride 10 ml 11/12/20 10:00 11/20/20 09:50 Sodium Chloride 0.9% 10 Ml Flush Syringe IV 10 ml BID CARLOS Administration Sodium Chloride 10 ml 11/11/20 22:11 Sodium Chloride 0.9% 10 Ml Flush Syringe IV PRN PRN LINE FLUSH Zinc Sulfate 220 mg 11/13/20 22:00 11/20/20 09:49 Zinc Sulfate 220 Mg Cap PO 220 mg BID CARLOS Administration
[2020-11-20] MEDS: metOLazone 5 MG TAB PO SCH (11:36)
[2020-11-20 11:38] LABS: Hematocrit 28.5 % (30.3-42.9); Hemoglobin 9.4 gm/dl (10.1-14.3)
--- NOTE | 2020-11-20 12:18 | Progress Note ---
Assessment and Plan Acute hypoxemic respiratory failure on MVS COVID-19 infection Pneumonia Severe Sepsis Acute toxic metabolic encephalopathy Inadvertently placed left carotid line Acute kidney injury Nephrolithiasis Leukocytosis Metabolic acidosis Mild hypernatremia - s/p EGD and gastric ulcer noted - s/p epinephrine asnd clipping - continue PPI drip - leave NGT out overnight re: risk of traumatic bleeding - change H&H ro q8h - keep vasopressin going and wean Levophed re: tachycardia - begin D51/2NS re: hypernatremia, hypotension and NPO status - reduced set rate to 12 amd TV to 400 mls - repeat INR in am - called daughter Kirstin @ [phone] with charge nurse present but no one picked phone up - continue care as below otherwise; - continue Daily SAT and SBT assessment as tolerated - continue to wean supplemental oxygen for target O2 sat's > 90% acutely - VAP bundle addressed - continue lung protective strategies - continue bronchodilators with pulmonary hygiene per RT - wean per pulmonary driven protocols otherwise - continue accuchecks with glycemic control per SSI (While critically ill target blood glucose of 140-180 mg/dL; avoid hypoglycemia) - sedation prn for target RASS 0 to -1 - avoid nephrotoxins, renally dose all medications - continue to avoid benzodiazepine's, reduce the possibility of delirium - AB's per ID rec's - prn analgesia per CPOT score - Maintenance of sleep-wake cycle, avoid delirium - continue enteral nutritional support at goal rate as tolerated - G.I. & VTE prophylaxis - PT/OT/ROM exercises - continue mobility protocols for pressure ulcer prophylaxis - Monitor hemodynamics closely - continue other care per attending / other consultants - discharge planning ongoing concurrently COVID SPECIFIC INTERVENTIONS - Remdesivir as per ID/Pulmonary developed protocols - continue systemic steroids for severe COVID-19 infection - s/p Actemra - follow repeat COVID tests results - zinc and vitamin C supplementation - Monitor inflammatory markers per facility protocol - ferritin, Ddimer, CRP - therapeutic anticoagulation per system Protocol based on d-dimer and clinical considerations (re: Carotid artery thrombus) - Continue contact and airborne isolation .... Re-evaluate in am & prn CONDITION: CRITICAL PROGNOSIS: GUARDED CODE STATUS: FULL CODE The high probability of a clinically significant, sudden or life-threatening deterioration of the [respiratory, cardiovascular, renal & neurologic] system(s) required my full and direct attention, intervention and personal management. The aggregate critical care time was [36] minutes without overlap. Time includes spent on; [x] Data Review and interpretation [x] Patient assessment and monitoring of vital signs [x] Documentation [x] Medication orders and management Subjective Date of service: 11/20/20 Principal diagnosis: Ac hypoxemic resp failure; COVID-19 infxn; Pneumonia; KATLYN; AMS; Sepsis Interval history: Patient is seen today for: Acute hypoxemic respiratory failure; COVID-19 infxn; Pneumonia; Acute toxic metabolic encephalopathy; Carotid Artery thrombus; KATLYN; Leukocytosis Seen and examined at bedside; 24hour events reviewed; nursing and respiratory care staff consulted; no adverse overnight events reported to me; resting in bed; remains on MVS; remains on vaspressors; AMS is persistent; no BRBPR and remains on IV Heparin; H&H holding but she did receive 1 unit PRBC overnight; no high grade fevers Objective Vital Signs - 12hr 11/20/20 11/20/20 11/20/20 00:21 00:30 00:41 Temperature Pulse Rate 99 H 99 H 99 H Pulse Rate [ From Monitor] Respiratory 24 25 H 28 H Rate Blood Pressure 120/54 116/64 116/64 O2 Sat by Pulse 99 99 99 Oximetry 11/20/20 11/20/20 11/20/20 00:51 01:00 01:01 Temperature 98.8 F Pulse Rate 98 H 98 H Pulse Rate [ From Monitor] Respiratory 22 24 Rate Blood Pressure 126/67 135/57 O2 Sat by Pulse 99 99 Oximetry 11/20/20 11/20/20 11/20/20 01:15 01:31 01:45 Temperature Pulse Rate 99 H 100 H 99 H Pulse Rate [ From Monitor] Respiratory 25 H 24 25 H Rate Blood Pressure 131/69 122/56 131/69 O2 Sat by Pulse 99 99 99 Oximetry 11/20/20 11/20/20 11/20/20 02:00 02:15 02:30 Temperature 99.0 F Pulse Rate 101 H 100 H 99 H Pulse Rate [ From Monitor] Respiratory 22 25 H 21 Rate Blood Pressure 122/59 127/67 113/72 O2 Sat by Pulse 99 98 99 Oximetry 11/20/20 11/20/20 11/20/20 02:45 02:51 03:01 Temperature Pulse Rate 99 H 100 H 101 H Pulse Rate [ From Monitor] Respiratory 22 25 H 19 Rate Blood Pressure 113/72 88/36 98/61 O2 Sat by Pulse 99 98 98 Oximetry 11/20/20 11/20/20 11/20/20 03:11 03:21 03:31 Temperature Pulse Rate 99 H 98 H 99 H Pulse Rate [ From Monitor] Respiratory 23 25 H 25 H Rate Blood Pressure 98/61 92/46 111/37 O2 Sat by Pulse 98 99 98 Oximetry 11/20/20 11/20/20 11/20/20 03:45 03:47 03:57 Temperature 97.8 F Pulse Rate 99 H 99 H Pulse Rate [ From Monitor] Respiratory 22 Rate Blood Pressure 111/37 105/54 O2 Sat by Pulse 98 99 Oximetry 11/20/20 11/20/20 11/20/20 04:00 04:15 04:30 Temperature Pulse Rate 98 H 103 H 103 H Pulse Rate [ 98 H From Monitor] Respiratory 46 H 24 28 H Rate Blood Pressure 98/55 98/55 103/64 O2 Sat by Pulse 99 99 96 Oximetry 11/20/20 11/20/20 11/20/20 04:45 05:01 05:15 Temperature Pulse Rate 103 H 102 H 103 H Pulse Rate [ From Monitor] Respiratory 23 20 21 Rate Blood Pressure 103/64 113/45 113/45 O2 Sat by Pulse 100 100 100 Oximetry 11/20/20 11/20/20 11/20/20 05:31 05:45 06:01 Temperature Pulse Rate 104 H 104 H 105 H Pulse Rate [ From Monitor] Respiratory 29 H 28 H 27 H Rate Blood Pressure 148/82 148/82 115/36 O2 Sat by Pulse 100 100 100 Oximetry 11/20/20 11/20/20 11/20/20 06:15 06:31 06:45 Temperature Pulse Rate 105 H 105 H 106 H Pulse Rate [ From Monitor] Respiratory 24 29 H 17 Rate Blood Pressure 115/36 125/91 200/125 O2 Sat by Pulse 100 Oximetry 11/20/20 11/20/20 11/20/20 07:01 07:15 07:31 Temperature Pulse Rate 104 H 102 H 102 H Pulse Rate [ From Monitor] Respiratory 29 H 29 H 29 H Rate Blood Pressure 125/91 125/91 84/18 O2 Sat by Pulse 100 100 100 Oximetry 11/20/20 11/20/20 11/20/20 07:45 08:00 08:01 Temperature Pulse Rate 103 H 104 H 104 H Pulse Rate [ 104 H From Monitor] Respiratory 29 H 23 25 H Rate Blood Pressure 154/94 125/50 O2 Sat by Pulse 100 99 100 Oximetry 11/20/20 11/20/20 11/20/20 08:15 08:31 08:44 Temperature Pulse Rate 103 H 104 H 105 H Pulse Rate [ From Monitor] Respiratory 28 H 53 H Rate Blood Pressure 139/63 139/63 141/98 O2 Sat by Pulse 100 97 Oximetry 11/20/20 11/20/20 11/20/20 08:45 09:01 09:15 Temperature Pulse Rate 105 H 105 H 110 H Pulse Rate [ From Monitor] Respiratory 19 21 18 Rate Blood Pressure 141/98 141/98 56/20 O2 Sat by Pulse Oximetry 11/20/20 11/20/20 11/20/20 09:30 09:45 10:01 Temperature Pulse Rate 112 H 116 H 125 H Pulse Rate [ From Monitor] Respiratory 25 H 26 H 22 Rate Blood Pressure 93/37 88/19 134/16 O2 Sat by Pulse 98 Oximetry 11/20/20 11/20/20 11/20/20 10:15 10:31 10:45 Temperature Pulse Rate 127 H 128 H 110 H Pulse Rate [ From Monitor] Respiratory 25 H 23 17 Rate Blood Pressure 134/16 164/65 164/65 O2 Sat by Pulse 100 100 99 Oximetry 11/20/20 11/20/20 11:01 11:15 Temperature Pulse Rate 97 H 123 H Pulse Rate [ From Monitor] Respiratory 21 25 H Rate Blood Pressure 42/28 169/48 O2 Sat by Pulse 99 Oximetry Constitutional: appears uncomfortable, other (elderly obese female with mildly increased respiratory effort at rest on MVS) Eyes: non-icteric ENT: oropharynx moist, other (ETT 24 cm NYA) Neck: supple, no lymphadenopathy, no JVD Effort: mildly labored Ascultation: Bilateral: diminished breath sounds, rhonchi (scant) Percussion: Bilateral: not dull Cardiovascular: regular rate and rhythm Gastrointestinal: hypoactive bowel sounds, soft, non-tender, non-distended (protuberant) Integumentary: normal Extremities: no cyanosis, pink and warm, pulses normal, edema (pedal and peripheral; 1++) Neurologic: non-focal exam (grossly), pupils equal and round, unable to assess Psychiatric: other (unable to assess re: AMS) CBC and BMP: 11/20/20 09:57 11/20/20 04:09 ABG, PT/INR, D-dimer: ABG ABG pH 7.595 (7.320-7.450) H 11/20/20 04:00 POC ABG pCO2 25.2 mmHg (32.0-48.0) L 11/20/20 04:00 POC ABG pO2 69.0 mmHg (83-108) L 11/20/20 04:00 POC ABG HCO3 23.9 11/20/20 04:00 ABG O2 Saturation 94.7 (0-100) 11/20/20 04:00 PT/INR, D-dimer PT 24.6 Sec. (12.2-14.9) H 11/19/20 19:45 INR 2.18 (0.87-1.13) H 11/19/20 19:45 D-Dimer 1808.23 ng/mlDDU (0-234) H 11/19/20 04:00 Abnormal lab findings: Abnormal Labs 11/11/20 11/11/20 11/11/20 13:39 13:39 16:59 WBC 19.5 H RBC 5.93 H Hgb 17.0 H Hct 50.6 H RDW Plt Count 449 H Lymph % (Auto) 12.0 L [place] % (Auto) 7.7 H Lymph # (Auto) [place] # (Auto) 1.5 H Seg Neutrophils % 80.0 H Seg Neuts % (Manual) Lymphocytes % (Manual) Monocytes % (Manual) Seg Neutrophils # 15.6 H Seg Neutrophils # Man Lymphocytes # (Manual) Monocytes # (Manual) PT INR D-Dimer 1525.92 H Heparin Anti-Xa Level ABG pH POC ABG pCO2 POC ABG pO2 ABG Hemoglobin ABG Oxyhemoglobin ABG Sodium ABG Potassium ABG Chloride ABG Glucose Carboxyhemoglobin Sodium Potassium 3.5 L Chloride 97.3 L Carbon Dioxide BUN 30 H Creatinine 0.5 L Glucose 128 H POC Glucose Hemoglobin A1c Lactic Acid Calcium Phosphorus Magnesium Ferritin AST ALT Lactate Dehydrogenase C-Reactive Protein Total Protein Albumin 3.8 L Arterial Blood Glucose Arterial Blood Ionized Calcium Urine WBC (Auto) U Epithel Cells (Auto) Urine Creatinine Coronavirus (PCR) Crossmatch 11/11/20 11/11/20 11/11/20 16:59 17:12 Unknown WBC RBC Hgb Hct RDW Plt Count Lymph % (Auto) [place] % (Auto) Lymph # (Auto) [place] # (Auto) Seg Neutrophils % Seg Neuts % (Manual) Lymphocytes % (Manual) Monocytes % (Manual) Seg Neutrophils # Seg Neutrophils # Man Lymphocytes # (Manual) Monocytes # (Manual) PT INR D-Dimer Heparin Anti-Xa Level ABG pH 7.501 H POC ABG pCO2 POC ABG pO2 55.0 L ABG Hemoglobin ABG Oxyhemoglobin 89.5 L ABG Sodium ABG Potassium 3.2 L ABG Chloride ABG Glucose 131 H Carboxyhemoglobin Sodium Potassium Chloride Carbon Dioxide BUN Creatinine Glucose 117 H POC Glucose Hemoglobin A1c Lactic Acid Calcium Phosphorus Magnesium Ferritin AST ALT Lactate Dehydrogenase 204 H C-Reactive Protein Total Protein Albumin Arterial Blood Glucose 131 H Arterial Blood Ionized Calcium Urine WBC (Auto) U Epithel Cells (Auto) Urine Creatinine Coronavirus (PCR) Positive A Crossmatch 11/12/20 11/12/20 11/12/20 05:07 05:07 05:07 WBC 16.7 H RBC 5.74 H Hgb 16.6 H Hct 50.3 H RDW Plt Count 450 H Lymph % (Auto) 12.1 L [place] % (Auto) 7.5 H Lymph # (Auto) [place] # (Auto) 1.3 H Seg Neutrophils % 77.9 H Seg Neuts % (Manual) Lymphocytes % (Manual) Monocytes % (Manual) Seg Neutrophils # 13.0 H Seg Neutrophils # Man Lymphocytes # (Manual) Monocytes # (Manual) PT INR D-Dimer Heparin Anti-Xa Level ABG pH POC ABG pCO2 POC ABG pO2 ABG Hemoglobin ABG Oxyhemoglobin ABG Sodium ABG Potassium ABG Chloride ABG Glucose Carboxyhemoglobin Sodium 147 H Potassium Chloride Carbon Dioxide 35 H D BUN 34 H Creatinine Glucose 117 H POC Glucose Hemoglobin A1c 6.6 H Lactic Acid Calcium 11.1 H Phosphorus Magnesium Ferritin AST ALT Lactate Dehydrogenase C-Reactive Protein Total Protein Albumin Arterial Blood Glucose Arterial Blood Ionized Calcium Urine WBC (Auto) U Epithel Cells (Auto) Urine Creatinine Coronavirus (PCR) Crossmatch 11/12/20 11/13/20 11/13/20 23:58 01:36 04:00 WBC RBC Hgb Hct RDW Plt Count Lymph % (Auto) [place] % (Auto) Lymph # (Auto) [place] # (Auto) Seg Neutrophils % Seg Neuts % (Manual) Lymphocytes % (Manual) Monocytes % (Manual) Seg Neutrophils # Seg Neutrophils # Man Lymphocytes # (Manual) Monocytes # (Manual) PT INR D-Dimer Heparin Anti-Xa Level ABG pH POC ABG pCO2 POC ABG pO2 ABG Hemoglobin ABG Oxyhemoglobin ABG Sodium 147.3 H ABG Potassium 3.2 L ABG Chloride 109.0 H ABG Glucose 118 H Carboxyhemoglobin 0.3 L Sodium Potassium 3.1 L Chloride Carbon Dioxide BUN 64 H Creatinine 2.2 H D Glucose 105 H POC Glucose 181 H Hemoglobin A1c Lactic Acid Calcium 8.3 L D Phosphorus Magnesium Ferritin AST 366 H ALT 316 H Lactate Dehydrogenase C-Reactive Protein Total Protein 5.4 L D Albumin 2.5 L Arterial Blood Glucose 118 H Arterial Blood Ionized Calcium Urine WBC (Auto) U Epithel Cells (Auto) Urine Creatinine Coronavirus (PCR) Crossmatch 11/13/20 11/13/20 11/13/20 05:23 08:22 09:51 WBC 15.9 H RBC Hgb Hct 44.4 H RDW Plt Count Lymph % (Auto) 5.7 L [place] % (Auto) 9.0 H Lymph # (Auto) 0.9 L [place] # (Auto) 1.4 H Seg Neutrophils % 85.3 H Seg Neuts % (Manual) Lymphocytes % (Manual) Monocytes % (Manual) Seg Neutrophils # 13.6 H Seg Neutrophils # Man Lymphocytes # (Manual) Monocytes # (Manual) PT 16.0 H INR 1.23 H D-Dimer Heparin Anti-Xa Level ABG pH 7.243 L POC ABG pCO2 POC ABG pO2 82.0 L ABG Hemoglobin ABG Oxyhemoglobin 93.5 L ABG Sodium 146.6 H ABG Potassium 2.8 L ABG Chloride 114.0 H ABG Glucose 113 H Carboxyhemoglobin 0.4 L Sodium Potassium Chloride Carbon Dioxide BUN Creatinine Glucose POC Glucose Hemoglobin A1c Lactic Acid Calcium Phosphorus Magnesium Ferritin AST ALT Lactate Dehydrogenase C-Reactive Protein Total Protein Albumin Arterial Blood Glucose 113 H Arterial Blood Ionized Calcium Urine WBC (Auto) U Epithel Cells (Auto) Urine Creatinine Coronavirus (PCR) Crossmatch 11/13/20 11/13/20 11/13/20 09:51 09:51 09:51 WBC RBC Hgb Hct RDW Plt Count Lymph % (Auto) [place] % (Auto) Lymph # (Auto) [place] # (Auto) Seg Neutrophils % Seg Neuts % (Manual) Lymphocytes % (Manual) Monocytes % (Manual) Seg Neutrophils # Seg Neutrophils # Man Lymphocytes # (Manual) Monocytes # (Manual) PT INR D-Dimer 5682.19 H Heparin Anti-Xa Level ABG pH POC ABG pCO2 POC ABG pO2 ABG Hemoglobin ABG Oxyhemoglobin ABG Sodium ABG Potassium ABG Chloride ABG Glucose Carboxyhemoglobin Sodium Potassium Chloride Carbon Dioxide BUN Creatinine Glucose 104 H POC Glucose Hemoglobin A1c Lactic Acid Calcium Phosphorus Magnesium Ferritin 1003.0 H AST ALT Lactate Dehydrogenase 1022 H C-Reactive Protein 5.50 H Total Protein Albumin Arterial Blood Glucose Arterial Blood Ionized Calcium Urine WBC (Auto) U Epithel Cells (Auto) Urine Creatinine Coronavirus (PCR) Crossmatch 11/13/20 11/14/20 11/14/20 21:50 00:50 04:25 WBC RBC Hgb Hct RDW Plt Count Lymph % (Auto) [place] % (Auto) Lymph # (Auto) [place] # (Auto) Seg Neutrophils % Seg Neuts % (Manual) Lymphocytes % (Manual) Monocytes % (Manual) Seg Neutrophils # Seg Neutrophils # Man Lymphocytes # (Manual) Monocytes # (Manual) PT INR D-Dimer Heparin Anti-Xa Level 0.91 H ABG pH 7.215 L POC ABG pCO2 POC ABG pO2 ABG Hemoglobin ABG Oxyhemoglobin ABG Sodium 147.3 H ABG Potassium ABG Chloride 119.0 H ABG Glucose 156 H Carboxyhemoglobin Sodium Potassium Chloride Carbon Dioxide BUN Creatinine Glucose POC Glucose 59 L Hemoglobin A1c Lactic Acid Calcium Phosphorus Magnesium Ferritin AST ALT Lactate Dehydrogenase C-Reactive Protein Total Protein Albumin Arterial Blood Glucose 156 H Arterial Blood Ionized Calcium 4.3 L Urine WBC (Auto) U Epithel Cells (Auto) Urine Creatinine Coronavirus (PCR) Crossmatch 11/14/20 11/14/20 11/14/20 04:35 04:35 06:15 WBC RBC Hgb Hct 43.9 H RDW 15.3 H Plt Count Lymph % (Auto) [place] % (Auto) Lymph # (Auto) [place] # (Auto) Seg Neutrophils % Seg Neuts % (Manual) Lymphocytes % (Manual) Monocytes % (Manual) Seg Neutrophils # Seg Neutrophils # Man Lymphocytes # (Manual) Monocytes # (Manual) PT INR D-Dimer Heparin Anti-Xa Level ABG pH POC ABG pCO2 POC ABG pO2 ABG Hemoglobin ABG Oxyhemoglobin ABG Sodium ABG Potassium ABG Chloride ABG Glucose Carboxyhemoglobin Sodium 151 H D Potassium Chloride 116.8 H Carbon Dioxide 18 L BUN 64 H Creatinine 2.1 H Glucose 148 H POC Glucose Hemoglobin A1c Lactic Acid Calcium 7.3 L Phosphorus Magnesium Ferritin AST ALT Lactate Dehydrogenase C-Reactive Protein 38.00 H Total Protein Albumin Arterial Blood Glucose Arterial Blood Ionized Calcium Urine WBC (Auto) > 182.0 H U Epithel Cells (Auto) 24.0 H Urine Creatinine Coronavirus (PCR) Crossmatch 11/14/20 11/14/20 11/14/20 06:15 06:15 12:01 WBC RBC Hgb Hct RDW Plt Count Lymph % (Auto) [place] % (Auto) Lymph # (Auto) [place] # (Auto) Seg Neutrophils % Seg Neuts % (Manual) Lymphocytes % (Manual) Monocytes % (Manual) Seg Neutrophils # Seg Neutrophils # Man Lymphocytes # (Manual) Monocytes # (Manual) PT INR D-Dimer Heparin Anti-Xa Level 1.16 H ABG pH POC ABG pCO2 POC ABG pO2 ABG Hemoglobin ABG Oxyhemoglobin ABG Sodium ABG Potassium ABG Chloride ABG Glucose Carboxyhemoglobin Sodium Potassium Chloride Carbon Dioxide BUN Creatinine Glucose POC Glucose 107 H Hemoglobin A1c Lactic Acid Calcium Phosphorus Magnesium Ferritin AST ALT Lactate Dehydrogenase C-Reactive Protein Total Protein Albumin Arterial Blood Glucose Arterial Blood Ionized Calcium Urine WBC (Auto) U Epithel Cells (Auto) Urine Creatinine 80.2 H Coronavirus (PCR) Crossmatch 11/14/20 11/14/20 11/14/20 17:18 23:00 23:25 WBC RBC Hgb Hct RDW Plt Count Lymph % (Auto) [place] % (Auto) Lymph # (Auto) [place] # (Auto) Seg Neutrophils % Seg Neuts % (Manual) Lymphocytes % (Manual) Monocytes % (Manual) Seg Neutrophils # Seg Neutrophils # Man Lymphocytes # (Manual) Monocytes # (Manual) PT INR D-Dimer Heparin Anti-Xa Level 0.96 H ABG pH POC ABG pCO2 POC ABG pO2 ABG Hemoglobin ABG Oxyhemoglobin ABG Sodium ABG Potassium ABG Chloride ABG Glucose Carboxyhemoglobin Sodium Potassium Chloride Carbon Dioxide BUN Creatinine Glucose POC Glucose 173 H 158 H Hemoglobin A1c Lactic Acid Calcium Phosphorus Magnesium Ferritin AST ALT Lactate Dehydrogenase C-Reactive Protein Total Protein Albumin Arterial Blood Glucose Arterial Blood Ionized Calcium Urine WBC (Auto) U Epithel Cells (Auto) Urine Creatinine Coronavirus (PCR) Crossmatch 11/15/20 11/15/20 11/15/20 01:45 04:57 04:57 WBC RBC Hgb Hct RDW 16.2 H Plt Count Lymph % (Auto) [place] % (Auto) Lymph # (Auto) [place] # (Auto) Seg Neutrophils % Seg Neuts % (Manual) Lymphocytes % (Manual) Monocytes % (Manual) Seg Neutrophils # Seg Neutrophils # Man Lymphocytes # (Manual) Monocytes # (Manual) PT INR D-Dimer Heparin Anti-Xa Level ABG pH 7.246 L POC ABG pCO2 28.4 L POC ABG pO2 ABG Hemoglobin ABG Oxyhemoglobin ABG Sodium ABG Potassium ABG Chloride 116.0 H ABG Glucose 164 H Carboxyhemoglobin Sodium 147 H Potassium Chloride 114.0 H Carbon Dioxide 16 L BUN 68 H Creatinine 2.4 H Glucose 148 H POC Glucose Hemoglobin A1c Lactic Acid Calcium 7.3 L Phosphorus Magnesium Ferritin AST 395 H ALT 396 H Lactate Dehydrogenase 596 H C-Reactive Protein 34.50 H Total Protein 5.1 L Albumin 2.1 L Arterial Blood Glucose 164 H Arterial Blood Ionized Calcium 4.3 L Urine WBC (Auto) U Epithel Cells (Auto) Urine Creatinine Coronavirus (PCR) Crossmatch 11/15/20 11/15/20 11/15/20 04:57 04:57 05:20 WBC RBC Hgb Hct RDW Plt Count Lymph % (Auto) [place] % (Auto) Lymph # (Auto) [place] # (Auto) Seg Neutrophils % Seg Neuts % (Manual) Lymphocytes % (Manual) Monocytes % (Manual) Seg Neutrophils # Seg Neutrophils # Man Lymphocytes # (Manual) Monocytes # (Manual) PT INR D-Dimer 3313.42 H Heparin Anti-Xa Level 0.81 H ABG pH POC ABG pCO2 POC ABG pO2 ABG Hemoglobin ABG Oxyhemoglobin ABG Sodium ABG Potassium ABG Chloride ABG Glucose Carboxyhemoglobin Sodium Potassium Chloride Carbon Dioxide BUN Creatinine Glucose POC Glucose 124 H Hemoglobin A1c Lactic Acid 3.00 H* Calcium Phosphorus Magnesium Ferritin AST ALT Lactate Dehydrogenase C-Reactive Protein Total Protein Albumin Arterial Blood Glucose Arterial Blood Ionized Calcium Urine WBC (Auto) U Epithel Cells (Auto) Urine Creatinine Coronavirus (PCR) Crossmatch 11/15/20 11/15/20 11/15/20 08:26 08:26 11:34 WBC RBC Hgb Hct RDW Plt Count Lymph % (Auto) [place] % (Auto) Lymph # (Auto) [place] # (Auto) Seg Neutrophils % Seg Neuts % (Manual) Lymphocytes % (Manual) Monocytes % (Manual) Seg Neutrophils # Seg Neutrophils # Man Lymphocytes # (Manual) Monocytes # (Manual) PT INR D-Dimer Heparin Anti-Xa Level ABG pH POC ABG pCO2 POC ABG pO2 ABG Hemoglobin ABG Oxyhemoglobin ABG Sodium ABG Potassium ABG Chloride ABG Glucose Carboxyhemoglobin Sodium Potassium Chloride Carbon Dioxide BUN Creatinine Glucose POC Glucose 113 H Hemoglobin A1c Lactic Acid 2.60 H* Calcium Phosphorus Magnesium Ferritin 452.8 H AST ALT Lactate Dehydrogenase C-Reactive Protein Total Protein Albumin Arterial Blood Glucose Arterial Blood Ionized Calcium Urine WBC (Auto) U Epithel Cells (Auto) Urine Creatinine Coronavirus (PCR) Crossmatch 11/15/20 11/15/20 11/16/20 16:43 23:16 03:39 WBC RBC Hgb Hct RDW Plt Count Lymph % (Auto) [place] % (Auto) Lymph # (Auto) [place] # (Auto) Seg Neutrophils % Seg Neuts % (Manual) Lymphocytes % (Manual) Monocytes % (Manual) Seg Neutrophils # Seg Neutrophils # Man Lymphocytes # (Manual) Monocytes # (Manual) PT INR D-Dimer Heparin Anti-Xa Level ABG pH 7.261 L POC ABG pCO2 31.2 L POC ABG pO2 117.3 H ABG Hemoglobin ABG Oxyhemoglobin ABG Sodium 135.8 L ABG Potassium ABG Chloride 112.0 H ABG Glucose 148 H Carboxyhemoglobin 0.4 L Sodium Potassium Chloride Carbon Dioxide BUN Creatinine Glucose POC Glucose 107 H 113 H Hemoglobin A1c Lactic Acid Calcium Phosphorus Magnesium Ferritin AST ALT Lactate Dehydrogenase C-Reactive Protein Total Protein Albumin Arterial Blood Glucose 148 H Arterial Blood Ionized Calcium 4.1 L Urine WBC (Auto) U Epithel Cells (Auto) Urine Creatinine Coronavirus (PCR) Crossmatch 11/16/20 11/16/20 11/16/20 04:51 11:28 17:15 WBC RBC Hgb Hct RDW Plt Count Lymph % (Auto) [place] % (Auto) Lymph # (Auto) [place] # (Auto) Seg Neutrophils % Seg Neuts % (Manual) Lymphocytes % (Manual) Monocytes % (Manual) Seg Neutrophils # Seg Neutrophils # Man Lymphocytes # (Manual) Monocytes # (Manual) PT INR D-Dimer Heparin Anti-Xa Level ABG pH POC ABG pCO2 POC ABG pO2 ABG Hemoglobin ABG Oxyhemoglobin ABG Sodium ABG Potassium ABG Chloride ABG Glucose Carboxyhemoglobin Sodium Potassium Chloride Carbon Dioxide BUN Creatinine Glucose POC Glucose 119 H 144 H 139 H Hemoglobin A1c Lactic Acid Calcium Phosphorus Magnesium Ferritin AST ALT Lactate Dehydrogenase C-Reactive Protein Total Protein Albumin Arterial Blood Glucose Arterial Blood Ionized Calcium Urine WBC (Auto) U Epithel Cells (Auto) Urine Creatinine Coronavirus (PCR) Crossmatch 11/16/20 11/16/20 11/16/20 23:50 Unknown Unknown WBC RBC Hgb Hct RDW Plt Count Lymph % (Auto) [place] % (Auto) Lymph # (Auto) [place] # (Auto) Seg Neutrophils % Seg Neuts % (Manual) Lymphocytes % (Manual) Monocytes % (Manual) Seg Neutrophils # Seg Neutrophils # Man Lymphocytes # (Manual) Monocytes # (Manual) PT INR D-Dimer Heparin Anti-Xa Level ABG pH POC ABG pCO2 POC ABG pO2 ABG Hemoglobin ABG Oxyhemoglobin ABG Sodium ABG Potassium ABG Chloride ABG Glucose Carboxyhemoglobin Sodium Potassium 3.5 L Chloride 109.7 H Carbon Dioxide 15 L BUN 65 H Creatinine 2.2 H Glucose 174 H POC Glucose 132 H Hemoglobin A1c Lactic Acid 2.10 H* Calcium 6.1 L D Phosphorus Magnesium Ferritin AST 171 H ALT 268 H Lactate Dehydrogenase C-Reactive Protein Total Protein 4.3 L Albumin 1.9 L Arterial Blood Glucose Arterial Blood Ionized Calcium Urine WBC (Auto) U Epithel Cells (Auto) Urine Creatinine Coronavirus (PCR) Crossmatch 11/17/20 11/17/20 11/17/20 03:14 04:00 05:09 WBC RBC Hgb Hct RDW Plt Count 123 L Lymph % (Auto) [place] % (Auto) Lymph # (Auto) [place] # (Auto) Seg Neutrophils % Seg Neuts % (Manual) Lymphocytes % (Manual) Monocytes % (Manual) Seg Neutrophils # Seg Neutrophils # Man Lymphocytes # (Manual) Monocytes # (Manual) PT INR D-Dimer Heparin Anti-Xa Level ABG pH 7.498 H POC ABG pCO2 27.2 L POC ABG pO2 110.6 H ABG Hemoglobin 11.6 L ABG Oxyhemoglobin ABG Sodium 135.4 L ABG Potassium ABG Chloride ABG Glucose 131 H Carboxyhemoglobin Sodium Potassium Chloride Carbon Dioxide BUN Creatinine Glucose POC Glucose 119 H Hemoglobin A1c Lactic Acid Calcium Phosphorus Magnesium Ferritin AST ALT Lactate Dehydrogenase C-Reactive Protein Total Protein Albumin Arterial Blood Glucose 131 H Arterial Blood Ionized Calcium 3.7 L Urine WBC (Auto) U Epithel Cells (Auto) Urine Creatinine Coronavirus (PCR) Crossmatch 11/17/20 11/17/20 11/17/20 09:59 09:59 09:59 WBC RBC Hgb Hct RDW Plt Count Lymph % (Auto) [place] % (Auto) Lymph # (Auto) [place] # (Auto) Seg Neutrophils % Seg Neuts % (Manual) Lymphocytes % (Manual) Monocytes % (Manual) Seg Neutrophils # Seg Neutrophils # Man Lymphocytes # (Manual) Monocytes # (Manual) PT INR D-Dimer 1401.08 H Heparin Anti-Xa Level ABG pH POC ABG pCO2 POC ABG pO2 ABG Hemoglobin ABG Oxyhemoglobin ABG Sodium ABG Potassium ABG Chloride ABG Glucose Carboxyhemoglobin Sodium Potassium Chloride Carbon Dioxide BUN Creatinine Glucose 127 H POC Glucose Hemoglobin A1c Lactic Acid Calcium Phosphorus Magnesium Ferritin 224.1 H AST ALT Lactate Dehydrogenase 515 H C-Reactive Protein 4.80 H Total Protein Albumin Arterial Blood Glucose Arterial Blood Ionized Calcium Urine WBC (Auto) U Epithel Cells (Auto) Urine Creatinine Coronavirus (PCR) Crossmatch 11/17/20 11/17/20 11/17/20 11:28 16:26 18:00 WBC RBC Hgb Hct RDW Plt Count Lymph % (Auto) [place] % (Auto) Lymph # (Auto) [place] # (Auto) Seg Neutrophils % Seg Neuts % (Manual) Lymphocytes % (Manual) Monocytes % (Manual) Seg Neutrophils # Seg Neutrophils # Man Lymphocytes # (Manual) Monocytes # (Manual) PT INR D-Dimer Heparin Anti-Xa Level 0.10 L ABG pH POC ABG pCO2 POC ABG pO2 ABG Hemoglobin ABG Oxyhemoglobin ABG Sodium ABG Potassium ABG Chloride ABG Glucose Carboxyhemoglobin Sodium Potassium Chloride Carbon Dioxide BUN Creatinine Glucose POC Glucose 114 H 121 H Hemoglobin A1c Lactic Acid Calcium Phosphorus Magnesium Ferritin AST ALT Lactate Dehydrogenase C-Reactive Protein Total Protein Albumin Arterial Blood Glucose Arterial Blood Ionized Calcium Urine WBC (Auto) U Epithel Cells (Auto) Urine Creatinine Coronavirus (PCR) Crossmatch 11/17/20 11/17/20 11/18/20 21:37 Unknown 02:11 WBC RBC Hgb Hct RDW Plt Count Lymph % (Auto) [place] % (Auto) Lymph # (Auto) [place] # (Auto) Seg Neutrophils % Seg Neuts % (Manual) Lymphocytes % (Manual) Monocytes % (Manual) Seg Neutrophils # Seg Neutrophils # Man Lymphocytes # (Manual) Monocytes # (Manual) PT INR D-Dimer Heparin Anti-Xa Level ABG pH POC ABG pCO2 POC ABG pO2 ABG Hemoglobin ABG Oxyhemoglobin ABG Sodium ABG Potassium ABG Chloride ABG Glucose Carboxyhemoglobin Sodium 146 H D Potassium 3.5 L Chloride Carbon Dioxide BUN 67 H 62 H Creatinine 1.8 H 1.7 H Glucose 129 H 109 H POC Glucose 118 H Hemoglobin A1c Lactic Acid Calcium 6.5 L 5.7 L* Phosphorus Magnesium 1.20 L Ferritin AST ALT Lactate Dehydrogenase C-Reactive Protein Total Protein Albumin Arterial Blood Glucose Arterial Blood Ionized Calcium Urine WBC (Auto) U Epithel Cells (Auto) Urine Creatinine Coronavirus (PCR) Crossmatch 11/18/20 11/18/20 11/18/20 02:38 04:44 17:09 WBC RBC Hgb Hct RDW Plt Count Lymph % (Auto) [place] % (Auto) Lymph # (Auto) [place] # (Auto) Seg Neutrophils % Seg Neuts % (Manual) Lymphocytes % (Manual) Monocytes % (Manual) Seg Neutrophils # Seg Neutrophils # Man Lymphocytes # (Manual) Monocytes # (Manual) PT INR D-Dimer Heparin Anti-Xa Level ABG pH 7.565 H POC ABG pCO2 30.4 L POC ABG pO2 72.0 L ABG Hemoglobin 11.4 L ABG Oxyhemoglobin ABG Sodium 134.1 L ABG Potassium 2.9 L ABG Chloride ABG Glucose 110 H Carboxyhemoglobin 0.3 L Sodium Potassium Chloride Carbon Dioxide BUN Creatinine Glucose POC Glucose 109 H 125 H Hemoglobin A1c Lactic Acid Calcium Phosphorus Magnesium Ferritin AST ALT Lactate Dehydrogenase C-Reactive Protein Total Protein Albumin Arterial Blood Glucose 110 H Arterial Blood Ionized Calcium 3.4 L Urine WBC (Auto) U Epithel Cells (Auto) Urine Creatinine Coronavirus (PCR) Crossmatch 11/19/20 11/19/20 11/19/20 03:19 04:00 04:00 WBC 14.3 H RBC 3.61 L Hgb Hct RDW Plt Count Lymph % (Auto) [place] % (Auto) Lymph # (Auto) [place] # (Auto) Seg Neutrophils % Seg Neuts % (Manual) 77.0 H Lymphocytes % (Manual) 13.0 L Monocytes % (Manual) 10.0 H Seg Neutrophils # Seg Neutrophils # Man 11.0 H Lymphocytes # (Manual) Monocytes # (Manual) 1.4 H PT INR D-Dimer Heparin Anti-Xa Level ABG pH 7.577 H POC ABG pCO2 28.0 L POC ABG pO2 57.4 L ABG Hemoglobin 10.6 L ABG Oxyhemoglobin 90.3 L ABG Sodium ABG Potassium 2.8 L ABG Chloride ABG Glucose 102 H Carboxyhemoglobin 0.3 L Sodium Potassium 2.9 L* D Chloride Carbon Dioxide 31 H BUN 51 H Creatinine Glucose POC Glucose Hemoglobin A1c Lactic Acid Calcium 6.7 L D Phosphorus 1.90 L Magnesium Ferritin AST ALT Lactate Dehydrogenase 634 H C-Reactive Protein 1.40 H Total Protein Albumin Arterial Blood Glucose 102 H Arterial Blood Ionized Calcium 3.7 L Urine WBC (Auto) U Epithel Cells (Auto) Urine Creatinine Coronavirus (PCR) Crossmatch 11/19/20 11/19/20 11/19/20 04:00 10:33 14:10 WBC RBC Hgb 8.9 L Hct 27.0 L RDW Plt Count Lymph % (Auto) [place] % (Auto) Lymph # (Auto) [place] # (Auto) Seg Neutrophils % Seg Neuts % (Manual) Lymphocytes % (Manual) Monocytes % (Manual) Seg Neutrophils # Seg Neutrophils # Man Lymphocytes # (Manual) Monocytes # (Manual) PT INR D-Dimer 1808.23 H Heparin Anti-Xa Level ABG pH POC ABG pCO2 POC ABG pO2 ABG Hemoglobin ABG Oxyhemoglobin ABG Sodium ABG Potassium ABG Chloride ABG Glucose Carboxyhemoglobin Sodium Potassium Chloride Carbon Dioxide BUN Creatinine Glucose POC Glucose 109 H Hemoglobin A1c Lactic Acid Calcium Phosphorus Magnesium Ferritin AST ALT Lactate Dehydrogenase C-Reactive Protein Total Protein Albumin Arterial Blood Glucose Arterial Blood Ionized Calcium Urine WBC (Auto) U Epithel Cells (Auto) Urine Creatinine Coronavirus (PCR) Crossmatch 11/19/20 11/19/20 11/19/20 17:28 19:45 19:45 WBC 22.7 H RBC 3.14 L Hgb 9.0 L Hct 27.2 L RDW Plt Count Lymph % (Auto) [place] % (Auto) Lymph # (Auto) [place] # (Auto) Seg Neutrophils % Seg Neuts % (Manual) Lymphocytes % (Manual) Monocytes % (Manual) Seg Neutrophils # Seg Neutrophils # Man Lymphocytes # (Manual) Monocytes # (Manual) PT 24.6 H INR 2.18 H D-Dimer Heparin Anti-Xa Level ABG pH POC ABG pCO2 POC ABG pO2 ABG Hemoglobin ABG Oxyhemoglobin ABG Sodium ABG Potassium ABG Chloride ABG Glucose Carboxyhemoglobin Sodium Potassium Chloride Carbon Dioxide BUN Creatinine Glucose POC Glucose 186 H Hemoglobin A1c Lactic Acid Calcium Phosphorus Magnesium Ferritin AST ALT Lactate Dehydrogenase C-Reactive Protein Total Protein Albumin Arterial Blood Glucose Arterial Blood Ionized Calcium Urine WBC (Auto) U Epithel Cells (Auto) Urine Creatinine Coronavirus (PCR) Crossmatch 11/19/20 11/19/20 11/19/20 19:45 19:45 19:45 WBC RBC Hgb Hct RDW Plt Count Lymph % (Auto) [place] % (Auto) Lymph # (Auto) [place] # (Auto) Seg Neutrophils % Seg Neuts % (Manual) Lymphocytes % (Manual) Monocytes % (Manual) Seg Neutrophils # Seg Neutrophils # Man Lymphocytes # (Manual) Monocytes # (Manual) PT INR D-Dimer Heparin Anti-Xa Level ABG pH POC ABG pCO2 POC ABG pO2 ABG Hemoglobin ABG Oxyhemoglobin ABG Sodium ABG Potassium ABG Chloride ABG Glucose Carboxyhemoglobin Sodium Potassium Chloride Carbon Dioxide BUN 58 H Creatinine Glucose 192 H POC Glucose Hemoglobin A1c Lactic Acid 2.20 H* Calcium 6.9 L Phosphorus Magnesium Ferritin AST 119 H ALT 143 H Lactate Dehydrogenase C-Reactive Protein Total Protein 4.0 L Albumin 2.3 L Arterial Blood Glucose Arterial Blood Ionized Calcium Urine WBC (Auto) U Epithel Cells (Auto) Urine Creatinine Coronavirus (PCR) Crossmatch See Detail 11/19/20 11/19/20 11/19/20 22:00 23:25 23:45 WBC RBC Hgb Hct RDW Plt Count Lymph % (Auto) [place] % (Auto) Lymph # (Auto) [place] # (Auto) Seg Neutrophils % Seg Neuts % (Manual) Lymphocytes % (Manual) Monocytes % (Manual) Seg Neutrophils # Seg Neutrophils # Man Lymphocytes # (Manual) Monocytes # (Manual) PT INR D-Dimer Heparin Anti-Xa Level > 2.00 H ABG pH POC ABG pCO2 POC ABG pO2 ABG Hemoglobin ABG Oxyhemoglobin ABG Sodium ABG Potassium ABG Chloride ABG Glucose Carboxyhemoglobin Sodium Potassium Chloride Carbon Dioxide BUN Creatinine Glucose POC Glucose 155 H Hemoglobin A1c Lactic Acid Calcium Phosphorus Magnesium Ferritin AST ALT Lactate Dehydrogenase C-Reactive Protein Total Protein Albumin Arterial Blood Glucose Arterial Blood Ionized Calcium Urine WBC (Auto) > 182.0 H U Epithel Cells (Auto) Urine Creatinine Coronavirus (PCR) Crossmatch 11/20/20 11/20/20 11/20/20 04:00 04:09 04:09 WBC 20.9 H RBC 3.48 L Hgb 10.0 L Hct 30.1 L RDW Plt Count Lymph % (Auto) [place] % (Auto) Lymph # (Auto) [place] # (Auto) Seg Neutrophils % Seg Neuts % (Manual) 77.0 H Lymphocytes % (Manual) 3.0 L Monocytes % (Manual) Seg Neutrophils # Seg Neutrophils # Man 16.1 H Lymphocytes # (Manual) 0.6 L Monocytes # (Manual) PT INR D-Dimer Heparin Anti-Xa Level ABG pH 7.595 H POC ABG pCO2 25.2 L POC ABG pO2 69.0 L ABG Hemoglobin 9.8 L ABG Oxyhemoglobin ABG Sodium ABG Potassium ABG Chloride 110.0 H ABG Glucose 178 H Carboxyhemoglobin 0.2 L Sodium 147 H Potassium Chloride 107.8 H Carbon Dioxide BUN 63 H Creatinine 1.3 H Glucose 151 H POC Glucose Hemoglobin A1c Lactic Acid Calcium 6.3 L Phosphorus Magnesium Ferritin AST ALT Lactate Dehydrogenase C-Reactive Protein Total Protein Albumin Arterial Blood Glucose 178 H Arterial Blood Ionized Calcium 3.7 L Urine WBC (Auto) U Epithel Cells (Auto) Urine Creatinine Coronavirus (PCR) Crossmatch 11/20/20 11/20/20 11/20/20 05:13 09:57 12:07 WBC RBC Hgb 9.4 L Hct 28.5 L RDW Plt Count Lymph % (Auto) [place] % (Auto) Lymph # (Auto) [place] # (Auto) Seg Neutrophils % Seg Neuts % (Manual) Lymphocytes % (Manual) Monocytes % (Manual) Seg Neutrophils # Seg Neutrophils # Man Lymphocytes # (Manual) Monocytes # (Manual) PT INR D-Dimer Heparin Anti-Xa Level ABG pH POC ABG pCO2 POC ABG pO2 ABG Hemoglobin ABG Oxyhemoglobin ABG Sodium ABG Potassium ABG Chloride ABG Glucose Carboxyhemoglobin Sodium Potassium Chloride Carbon Dioxide BUN Creatinine Glucose POC Glucose 126 H 121 H Hemoglobin A1c Lactic Acid Calcium Phosphorus Magnesium Ferritin AST ALT Lactate Dehydrogenase C-Reactive Protein Total Protein Albumin Arterial Blood Glucose Arterial Blood Ionized Calcium Urine WBC (Auto) U Epithel Cells (Auto) Urine Creatinine Coronavirus (PCR) Crossmatch Chest x-ray: other (none today) Allied health notes reviewed: nursing
[2020-11-20] MEDS ORDERED: MIDAZOLAM 2 MG/2 ML INJ IV ONE ×2 (12:38→12:40)
--- NOTE | 2020-11-20 12:49 | Progress Note ---
Assessment and Plan Assessment and plan: This is an 85-year-old female admitted with acute hypoxic respiratory failure, COVID-19 pneumonia and septic shock Neuro: Acute metabolic encephalopathy, H/O lumbar compression fracture -Patient was sedated with fentanyl but now on no sedation -Pain management as needed -Supportive care Cardio: Hypotension, inadvertent placement of carotid artery central venous line -Vasopressor support with Levophed and vasopressin -Blood pressure monitoring per protocol -Vascular surgery/interventional radiology consulted, appreciate recommendations -Heparin drip to prevent thrombus -Do not use carotid CVL Respiratory: Acute hypoxemic respiratory failure -[facility] consulted, appreciate recommendations -Intubated 11/13/2020 -11/20 AB.59/25.2/69/23 on 50% -11/20 CXR reviewed -Current vent settings: 8.00 ETT at 20 lips; AC, rate of 20, tidal volume 5020, FiO2 60, PEEP of 16 -VAP bundle -Daily SBT/SAT when appropriate -Serial ABGs, CXR -Wean mechanical ventilation as tolerated GI: GI bleed, Bleeding Gastric ulcer, transaminitis, Severe protein malnutrition -GI consulted, appreciate recommendations -Ntr consulted, appreciate recommendations: On tube feedings -11/11 abdomen/pelvis CT, see report for findings -Protonix gtt -FMS in place-> Occult Positive -Serial H&H -11/20 s/p 2 units PRBC -11/20: EGD shows bleeding gastric ulcer which was banded -NPO per GI recs -Trend CBC and LFTs : Acute kidney injury, left ureteral stone,Hypokalemia, metabolic alkalosis,hypocalcemia -Nephrology, urology consulted, appreciate recommendations -Strict intake and output -Daily weights -Avoid nephrotoxic medications -Renally dose medications -S/p bilateral stent -IV calcium with PO supplements ID: Septic shock, COVID-19 pneumonia, UTI -MRSA 11/13 sputum culture -Infectious disease consulted, appreciate recommendations -ID restarted abx today: vancomycin and cefepime given new fevers and worsening white count -11/14 blood cultures x2 no growth to date -COVID-19 PCR + on 11/11 -Patient not a candidate for remdesivir due to renal failure -S/p Actemra -Dexamethasone for 10 days -Zinc/vitamin C -Trend COVID-19 inflammatory markers -Droplet/isolation precautions Endo: DM II -SSI -Hemoglobin A1c 6.6 -Accu-Cheks every 6 -Avoid hypoglycemia -Protonix gtt Heme: Acute GI bleed, elevated D-dimer, Leukocytosis, Elevated INR -SCDs to bilateral lower extremities while in bed -Transfuse 2 units PRBC -H/H every 6 -Transfuse for hemoglobin less than 7 -Systemic anticoagulation with heparin to prevent thrombus -Trend CBC The high probability of a clinically significant, sudden or life threatening deterioration of the [multi] system(s) required my full and direct attention, intervention and personal management. The aggregate critical care time was [60] minutes. This time is in addition to time spent performing reported procedures but includes the following: [x] Data Review and interpretation [x] Patient assessment and monitoring of vital signs [x] Documentation [x] Medication orders and management Disposition Plan: icu Total Time Spent with Patient (Minutes): 60 History Interval history: This is a 85-year-old female with obesity, chronic low back pain, chronic UTI, muscle spasm, and depression who presents to the emergency department on 11/11 with complaints of nausea/vomiting and decreased p.o. intake for 1 week and complains of mild diarrhea. Patient is bedridden and nonambulatory and oriented to self. Her patient's daughter EMS was called to assess and they gave the patient IV fluids but did not transfer the patient. On 11/11 EMS was contacted again and due to persistent vomiting and apparent small amount of blood in vomit patient was transferred to [facility] for further evalu ation and treatment. Upon presentation to the emergency department patient was hypoxic on room air with SPO2 of 88 to 90% and continue to have emesis. Work-up in the emergency department revealed leukocytosis, thrombocytosis, acute hypoxic respiratory failure, SIRS. Patient was admitted as a COVID-19 PUI with acute hypoxic respiratory failure. 11/12/2020 Patient doing well, Discussed with daughter at length about her prognosis and treatment, No nausea vomiting since morning Coronavirus PCR came positive 11/13/2020 Patient coded last night and was intubated, ROSC. Patient on vent, Denture Packer consult and ID consult 11/14/2020 Patient intubated, Weaning in progress 11/15/2020; patient remains intubated, on vasopressors for septic shock. Critically ill, poor prognosis, discussed with daughter Kirstin who understands the severity of illness, she wants to talk to the family. If the family agrees she is considering DNR/withdrawal of care, I informed patient's nurse 11/16/2020; Patient remains intubated, on Levophed, Severe sepsis due to COVID-19 pneumonia, critically ill, on heparin drip 11/17/2020; Patient remains critically ill. Septic shock on norepinephrine. Intubated on vent, Very poor prognosis Family unable to decide the goals of treatment CODE STATUS; Recommend palliative care/hospice 11/18: PICC team consulted for placement of PICC, patient noted to have minimal output from NG tube and tube feeding will be restarted, patient will be left with Reglan. CCM decrease PEEP. Hypocalcemia and hypomagnesemia repleted. 11/19: Patient's H/H is trending down, having dark stools via FMS and GI was consulted today. Placed on PPI and NG tube to low normal suction, start stool guaiac positive. Per CCM discontinue Lind catheter. Patient will now be on every 6 H&H and will to be transfused with 2 units PRBC. Long family meeting conducted today with hospitalist, CCM and administration. 11/20: GI at bedside to perform endoscopy, patient's blood pressure has been labile today and RN has been going up and down on vasopressors. Patient is still having melena and received 1 unit PRBC yesterday evening. Hospitalist Physical - Constitutional Vitals: Temp Pulse Resp BP Pulse Ox 97.8 F 123 H 25 H 169/48 99 11/20/20 03:47 11/20/20 11:15 11/20/20 11:15 11/20/20 11:15 11/20/20 11:15 General appearance: Present: other (Intubated, not interactive) - EENT ENT: poor dentition - Neck Neck: Absent: masses or JVD, cervical LAD - Respiratory Respiratory effort: normal Respiratory: bilateral: diminished - Cardiovascular Rhythm: regular Heart Sounds: Present: S1 & S2. Absent: systolic murmur, diastolic murmur - Extremities Extremities: no ischemia, pulses intact, pulses symmetrical Extremity abnormal: edema, cold Peripheral Pulses: within normal limits - Abdominal General gastrointestinal: soft, non-tender, non-distended, hypoactive bowel sounds - Integumentary Integumentary: Present: dry - Psychiatric Psychiatric: other (not interactive) - Neurologic Neurologic: other (does not follow/tract, does not follow commands) - Allied Health Allied health notes reviewed: nursing, RT, social work HEART Score - HEART Score Age: > 65 Risk factors: 1-2 risk factors Troponin: Troponin T < 0.010 ng/mL (0.00-0.029) 11/11/20 13:39 - Critical Actions Critical Actions: 0-3 pts:0.9-1.7%risk of adverse cardiac event.Candidate for discharge Results - Labs CBC & Chem 7: 11/20/20 09:57 11/20/20 04:09 Labs: Laboratory Last Values WBC 20.9 K/mm3 (4.5-11.0) H 11/20/20 04:09 RBC 3.48 M/mm3 (3.65-5.03) L 11/20/20 04:09 Hgb 9.4 gm/dl (10.1-14.3) L 11/20/20 09:57 Hct 28.5 % (30.3-42.9) L 11/20/20 09:57 MCV 87 fl (79-97) 11/20/20 04:09 MCH 29 pg (28-32) 11/20/20 04:09 MCHC 33 % (30-34) 11/20/20 04:09 RDW 14.5 % (13.2-15.2) 11/20/20 04:09 Plt Count 195 K/mm3 (140-440) 11/20/20 04:09 Lymph % (Auto) 5.7 % (13.4-35.0) L 11/13/20 05:23 Villalba % (Auto) 9.0 % (0.0-7.3) H 11/13/20 05:23 Eos % (Auto) 0.0 % (0.0-4.3) 11/13/20 05:23 Baso % (Auto) 0.0 % (0.0-1.8) 11/13/20 05:23 Lymph # (Auto) 0.9 K/mm3 (1.2-5.4) L 11/13/20 05:23 Villalba # (Auto) 1.4 K/mm3 (0.0-0.8) H 11/13/20 05:23 Eos # (Auto) 0.0 K/mm3 (0.0-0.4) 11/13/20 05:23 Baso # (Auto) 0.0 K/mm3 (0.0-0.1) 11/13/20 05:23 Add Manual Diff Complete 11/20/20 04:09 Total Counted 100 11/20/20 04:09 Seg Neutrophils % 85.3 % (40.0-70.0) H 11/13/20 05:23 Seg Neuts % (Manual) 77.0 % (40.0-70.0) H 11/20/20 04:09 Band Neutrophils % 13.0 % 11/20/20 04:09 Lymphocytes % (Manual) 3.0 % (13.4-35.0) L 11/20/20 04:09 Monocytes % (Manual) 3.0 % (0.0-7.3) 11/20/20 04:09 Metamyelocytes % 4.0 % 11/20/20 04:09 Nucleated RBC % Not Reportable 11/20/20 04:09 Seg Neutrophils # 13.6 K/mm3 (1.8-7.7) H 11/13/20 05:23 Seg Neutrophils # Man 16.1 K/mm3 (1.8-7.7) H 11/20/20 04:09 Band Neutrophils # 2.7 K/mm3 11/20/20 04:09 Lymphocytes # (Manual) 0.6 K/mm3 (1.2-5.4) L 11/20/20 04:09 Abs React Lymphs (Man) 0.0 K/mm3 11/20/20 04:09 Monocytes # (Manual) 0.6 K/mm3 (0.0-0.8) 11/20/20 04:09 Eosinophils # (Manual) 0.0 K/mm3 (0.0-0.4) 11/20/20 04:09 Basophils # (Manual) 0.0 K/mm3 (0.0-0.1) 11/20/20 04:09 Metamyelocytes # 0.8 K/mm3 11/20/20 04:09 Myelocytes # 0.0 K/mm3 11/20/20 04:09 Promyelocytes # 0.0 K/mm3 11/20/20 04:09 Blast Cells # 0.0 K/mm3 11/20/20 04:09 WBC Morphology Not Reportable 11/20/20 04:09 Hypersegmented Neuts Not Reportable 11/20/20 04:09 Hyposegmented Neuts Not Reportable 11/20/20 04:09 Hypogranular Neuts Not Reportable 11/20/20 04:09 Smudge Cells Not Reportable 11/20/20 04:09 Toxic Granulation Not Reportable 11/20/20 04:09 Toxic Vacuolation Not Reportable 11/20/20 04:09 Dohle Bodies Not Reportable 11/20/20 04:09 Pelger-Huet Anomaly Not Reportable 11/20/20 04:09 Vernell Rods Not Reportable 11/20/20 04:09 Platelet Estimate Consistent w auto 11/20/20 04:09 Clumped Platelets Not Reportable 11/20/20 04:09 Plt Clumps, EDTA Not Reportable 11/20/20 04:09 Large Platelets Not Reportable 11/20/20 04:09 Giant Platelets Not Reportable 11/20/20 04:09 Platelet Satelliting Not Reportable 11/20/20 04:09 Plt Morphology Comment Not Reportable 11/20/20 04:09 RBC Morphology Not Reportable 11/20/20 04:09 Dimorphic RBCs Not Reportable 11/20/20 04:09 Polychromasia Few 11/20/20 04:09 Hypochromasia Few 11/20/20 04:09 Poikilocytosis Not Reportable 11/20/20 04:09 Anisocytosis Not Reportable 11/20/20 04:09 Microcytosis Not Reportable 11/20/20 04:09 Macrocytosis Not Reportable 11/20/20 04:09 Spherocytes Not Reportable 11/20/20 04:09 Pappenheimer Bodies Not Reportable 11/20/20 04:09 Sickle Cells Not Reportable 11/20/20 04:09 Target Cells Not Reportable 11/20/20 04:09 Tear Drop Cells Not Reportable 11/20/20 04:09 Ovalocytes Not Reportable 11/20/20 04:09 Helmet Cells Not Reportable 11/20/20 04:09 [place] Bodies Not Reportable 11/20/20 04:09 [place] Rings Not Reportable 11/20/20 04:09 Vitaliy Cells Not Reportable 11/20/20 04:09 Bite Cells Not Reportable 11/20/20 04:09 Crenated Cell Not Reportable 11/20/20 04:09 Elliptocytes Not Reportable 11/20/20 04:09 Acanthocytes (Spur) Not Reportable 11/20/20 04:09 Rouleaux Not Reportable 11/20/20 04:09 Hemoglobin C Crystals Not Reportable 11/20/20 04:09 Schistocytes Not Reportable 11/20/20 04:09 Malaria parasites Not Reportable 11/20/20 04:09 Mauro Bodies Not Reportable 11/20/20 04:09 Hem Pathologist Commnt No 11/20/20 04:09 PT 24.6 Sec. (12.2-14.9) H 11/19/20 19:45 INR 2.18 (0.87-1.13) H 11/19/20 19:45 APTT 24.2 Sec. (24.2-36.6) 11/13/20 09:51 D-Dimer 1808.23 ng/mlDDU (0-234) H 11/19/20 04:00 Heparin Anti-Xa Level 0.46 U.I./ml (0.3-0.7) 11/20/20 04:09 ABG pH 7.595 (7.320-7.450) H 11/20/20 04:00 POC ABG pCO2 25.2 mmHg (32.0-48.0) L 11/20/20 04:00 POC ABG pO2 69.0 mmHg (83-108) L 11/20/20 04:00 POC ABG HCO3 23.9 11/20/20 04:00 ABG O2 Saturation 94.7 (0-100) 11/20/20 04:00 POC ABG Base Excess 2.9 11/20/20 04:00 ABG Hemoglobin 9.8 (12.0-17.5) L 11/20/20 04:00 ABG Oxyhemoglobin 94.2 (94-98) 11/20/20 04:00 ABG Methemoglobin 0.3 (0.0-1.5) 11/20/20 04:00 ABG Sodium 137.7 mmol/L (136.0-145.0) 11/20/20 04:00 ABG Potassium 3.9 mmol/L (3.40-4.50) 11/20/20 04:00 ABG Chloride 110.0 mmol/L (98-107) H 11/20/20 04:00 ABG Glucose 178 mg/dL (65-95) H 11/20/20 04:00 Carboxyhemoglobin 0.2 (0.5-1.5) L 11/20/20 04:00 FiO2 % 50.0 11/20/20 04:00 Sodium 147 mmol/L (137-145) H 11/20/20 04:09 Potassium 4.1 mmol/L (3.6-5.0) 11/20/20 04:09 Chloride 107.8 mmol/L (98-107) H 11/20/20 04:09 Carbon Dioxide 27 mmol/L (22-30) 11/20/20 04:09 Anion Gap 16 mmol/L 11/20/20 04:09 BUN 63 mg/dL (7-17) H 11/20/20 04:09 Creatinine 1.3 mg/dL (0.6-1.2) H 11/20/20 04:09 Estimated GFR 39 ml/min 11/20/20 04:09 BUN/Creatinine Ratio 48 % 11/20/20 04:09 Glucose 151 mg/dL (65-100) H 11/20/20 04:09 POC Glucose 121 mg/dL (70-105) H 11/20/20 12:07 Hemoglobin A1c 6.6 % (4-6) H 11/12/20 05:07 Lactic Acid 2.20 mmol/L (0.7-2.0) H* 11/19/20 19:45 Calcium 6.3 mg/dL (8.4-10.2) L 11/20/20 04:09 Phosphorus 5.40 mg/dL (2.5-4.5) H D 11/20/20 09:57 Magnesium 1.80 mg/dL (1.7-2.3) 11/19/20 04:00 Ferritin 224.1 ng/mL (10.0-200.0) H 11/17/20 09:59 Total Bilirubin 0.50 mg/dL (0.1-1.2) 11/19/20 19:45 AST 119 units/L (5-40) H 11/19/20 19:45 ALT 143 units/L (7-56) H 11/19/20 19:45 Alkaline Phosphatase 91 units/L (35-129) 11/19/20 19:45 Lactate Dehydrogenase 634 units/L (91-180) H 11/19/20 04:00 Troponin T < 0.010 ng/mL (0.00-0.029) 11/11/20 13:39 C-Reactive Protein 1.40 mg/dL (0.00-1.30) H 11/19/20 04:00 Total Protein 4.0 g/dL (6.3-8.2) L 11/19/20 19:45 Albumin 2.3 g/dL (3.9-5) L 11/19/20 19:45 Albumin/Globulin Ratio 1.4 % 11/19/20 19:45 Lipase 55 units/L (13-60) 11/11/20 13:39 Procalcitonin < 0.05 ng/mL (<0.15) 11/11/20 16:59 Arterial Blood Glucose 178 mg/dL (65-95) H 11/20/20 04:00 Arterial Blood Ionized Calcium 3.7 mg/dL (4.6-5.3) L 11/20/20 04:00 Urine Color Janay (Yellow) 11/19/20 23:45 Urine Turbidity Cloudy (Clear) 11/19/20 23:45 Urine pH 5.0 (5.0-7.0) 11/19/20 23:45 Ur Specific [place] 1.015 (1.003-1.030) 11/19/20 23:45 Urine Protein 100 mg/dl mg/dL (Negative) 11/19/20 23:45 Urine Glucose (UA) Neg mg/dL (Negative) 11/19/20 23:45 Urine Ketones Neg mg/dL (Negative) 11/19/20 23:45 Urine Blood Lg (Negative) 11/19/20 23:45 Urine Nitrite Neg (Negative) 11/19/20 23:45 Ur Reducing Substances TNR 11/14/20 06:15 Urine Bilirubin Neg (Negative) 11/19/20 23:45 Urine Ictotest TNR 11/14/20 06:15 Urine Urobilinogen < 2.0 mg/dL (<2.0) 11/19/20 23:45 Ur Leukocyte Esterase Mod (Negative) 11/19/20 23:45 Urine WBC (Auto) > 182.0 /HPF (0.0-6.0) H 11/19/20 23:45 Urine RBC (Auto) > 182.0 /HPF (0.0-6.0) 11/19/20 23:45 U Epithel Cells (Auto) 3.0 /HPF (0-13.0) 11/19/20 23:45 Urine Bacteria (Auto) 4+ /HPF (Negative) 11/19/20 23:45 Urine WBC Clumps 3+ /HPF 11/14/20 06:15 Ur Transition Epith Cell 4 /HPF 11/19/20 23:45 Urine Mucus Few /HPF 11/19/20 23:45 Ur Yeast w Hyphae 2+ /HPF 11/19/20 23:45 Urine Yeast (Budding) 3+ /HPF 11/19/20 23:45 Urine Creatinine 80.2 mg/dL (0.1-20.0) H 11/14/20 06:15 Urine Sodium 28 mmol/L 11/14/20 06:15 Coronavirus (PCR) Positive (Negative) A 11/11/20 Unknown Blood Type A POSITIVE 11/19/20 19:45 Antibody Screen Negative 11/19/20 19:45 Crossmatch See Detail 11/19/20 19:45 Microbiology: Microbiology 11/14/20 Unknown Peripheral/Venous Blood Culture - Final NO GROWTH AFTER 5 DAYS 11/14/20 Unknown Peripheral/Venous Blood Culture - Final NO GROWTH AFTER 5 DAYS Lind/IV: Voiding Method External Female Catheter Active Medications - Current Medications Current Medications: Generic Name Dose Route Start Last Admin Trade Name Freq PRN Reason Stop Dose Admin Acetaminophen 650 mg 11/11/20 22:11 11/19/20 11:30 Acetaminophen 325 Mg Tab PO 650 mg Q4H PRN Administration Pain MILD(1-3)/Fever >100.5/ERAZO Albuterol 2.5 mg 11/13/20 07:40 Albuterol 2.5 Mg/3 Ml Nebu IH Q4HRT PRN Shortness Of Breath Lipase/Protease/Amylase 1 each 11/13/20 17:32 Lipase 10,500/Protease 25,000/Amylase 43,750 (Units) Dr Weiss FEEDTUBE PRN PRN For Clogged Feeding Tube Ascorbic Acid 500 mg 11/13/20 22:00 11/20/20 09:49 Ascorbic Acid 500 Mg Tab PO 500 mg BID CARLOS Administration Baclofen 10 mg 11/11/20 22:09 Baclofen 10 Mg Tab PO TID PRN MUSCLE SPASMS & PAIN Calcium Carbonate/Glycine 1,250 mg 11/19/20 10:00 11/20/20 09:49 Calcium Carbonate 1250 Mg/5 Ml Oral Liqd FEEDTUBE 11/21/20 23:59 1,250 mg QDAY CARLOS Administration Dexamethasone 6 mg 11/13/20 10:00 11/20/20 09:49 Dexamethasone 4 Mg/Ml Vial IV 11/22/20 10:01 6 mg Q24HR CARLOS Administration Dextrose 50 ml 11/13/20 16:43 11/14/20 01:12 Dextrose 50% In Water (25gm) 50 Ml Syringe IV 50 ml Q30MIN PRN Administration Hypoglycemia Protocol Fentanyl 50 mcg 11/13/20 05:33 Fentanyl 100 Mcg/2 Ml Inj IV Q10MIN PRN ANALGESIA Heparin Sodium (Porcine) 3,000 unit 11/13/20 05:04 Heparin 10,000 Units/10 Ml Vial 40 unit/kg (3000 unit) IV Q6H PRN Anti-Xa Assay < 0.1 units/ml Hydrophilic Ointment 1 applic 11/13/20 05:33 Lip Therapy Vaseline TP Q2HR PRN Dry Lips Heparin Sodium/Sodium Chloride 25,000 unit in 500 mls @ 23 mls/hr 11/13/20 06:00 11/20/20 05:37 Heparin/ 0.45% Nacl-25,000 Unit/500 Ml IV 900 units/hr TITR CARLOS 18 mls/hr Titration Protocol 1,150 UNITS/HR Fentanyl Citrate 2,000 mcg in 100 mls @ 3.81 mls/hr 11/13/20 06:00 11/20/20 10:01 Fentanyl Drip Premix IV 0 mcg/kg/hr TITR CARLOS 0 mls/hr Titration Protocol 1 MCG/KG/HR NORepinephrine/NS 8 MG-250 ML 8 mg in 250 mls @ 3.75 mls/hr 11/13/20 15:00 11/20/20 11:35 Norepinephrine/Ns 8 Mg-250 Ml (Double Conc) IV 26 mcg/min TITRATE CARLOS 48.75 mls/hr Titration Protocol 2 MCG/MIN Vasopressin 20 unit/ Sodium 101 mls @ 9.09 mls/hr 11/19/20 09:00 11/19/20 21:50 Chloride IV 0.03 units/min TITR CARLOS 9.09 mls/hr Administration Protocol 0.03 UNITS/MIN Pantoprazole Sodium 80 mg/ 100 mls @ 10 mls/hr 11/19/20 15:00 11/20/20 06:29 Sodium Chloride IV 8 mg/hr DIRECT CARLOS 10 mls/hr Administration 8 MG/HR Dextrose/Sodium Chloride 1,000 mls @ 42 mls/hr 11/20/20 11:00 11/20/20 11:40 D5/0.45ns IV 11/21/20 10:59 42 mls/hr DIRECT CARLOS Administration Insulin Human Regular 0 units 11/13/20 17:00 11/20/20 07:02 Insulin Regular, Human 100 Units/1 Ml SUB-Q Not Given Q6H [facility] Protocol Metolazone 5 mg 11/18/20 15:00 11/20/20 11:36 Metolazone 5 Mg Tab PO Not Given QDAY [facility] Multi-Ingred Cream/Lotion/Oil/Oint 1 applic 11/13/20 05:33 Mineral Oil/Petrolatum, White Ophth Oint 3.5 Gm OU Q4HR PRN Dry Eye(s) Ondansetron HCl 4 mg 11/11/20 22:11 Ondansetron 4 Mg/2 Ml Inj IV Q3H PRN Nausea And Vomiting Paroxetine HCl 10 mg 11/12/20 10:00 11/20/20 09:49 Paroxetine 10 Mg Tab PO 10 mg DAILY CARLOS Administration Ropinirole HCl 1 mg 11/12/20 22:00 11/19/20 21:24 Ropinirole 1 Mg Tab PO 1 mg QHS CARLOS Administration Simple Syrup 15 ml 11/13/20 17:32 Simple Syrup 15 Ml FEEDTUBE PRN PRN Hypoglycemia Simple Syrup 30 ml 11/13/20 17:32 Simple Syrup 15 Ml FEEDTUBE PRN PRN Hypoglycemia Sodium Bicarbonate 325 mg 11/13/20 17:32 Sodium Bicarbonate 325 Mg Tab FEEDTUBE PRN PRN For Clogged Feeding Tube Sodium Chloride 10 ml 11/12/20 10:00 11/20/20 09:50 Sodium Chloride 0.9% 10 Ml Flush Syringe IV 10 ml BID CARLOS Administration Sodium Chloride 10 ml 11/11/20 22:11 Sodium Chloride 0.9% 10 Ml Flush Syringe IV PRN PRN LINE FLUSH Zinc Sulfate 220 mg 11/13/20 22:00 11/20/20 09:49 Zinc Sulfate 220 Mg Cap PO 220 mg BID CARLOS Administration Nutrition/Malnutrition Assess - Dietary Evaluation Nutrition/Malnutrition Findings: Nutrition Notes Start: 11/13/20 17:25 Freq: Status: Active Protocol: Document 11/20/20 08:03 DWAYNE (Rec: 11/20/20 08:07 DWAYNE [email or web address]) Nutrition Notes Initial or Follow up Brief Note Current Diagnosis Sepsis,Respiratory Failure Other Pertinent Diagnosis COVID-19 (+), Dehydration, (L) renal stone Current Diet Vital AF 1.2 at 50 ml/hr Subjective/Other Information TF was running until 11/19 when NGT turned to suction. Pt continues with GIB and distension of stomach with possibilty to scope. Nutrition Intervention Follow-Up By: 11/22/20 Additional Comments F/u: POC
--- NOTE | 2020-11-20 13:07 | Operative Report ---
Operative Report Operative Report: Endoscopist: Steven Alejo MD (Jenny) EGD REPORT PREOPERATIVE DIAGNOSIS: GI bleed POSTOPERATIVE DIAGNOSIS: gastric body ulcer ESTIMATED BLOOD LOSS: minimal DESCRIPTION OF PROCEDURE: A high-resolution EGD scope was passed through the oropharynx, esophagus, stomach, and second portion of duodenum. The scope was carefully withdrawn. Retroflexion was performed in the stomach. At the end of the procedure, the scope was cleaned using normal technique. Vital signs monitored continuously throughout. SEDATION: Moderate sedation, versed 25 mg, fentanyl 1 mcg. COMPLICATIONS: None. FINDINGS: 1. A ~ 1 cm gastric body ulcer with minimal oozing after clearing the overlying clot. Epinephrine 1:10, 000 mixture injected followed by placement of one endoclip over the ulcer. There was no bleeding at the end of the procedure. 2. Mild esophagitis in the mid and distal esophagus. 3. No gross lesions in the examined part of duodenum. RECOMMENDATIONS: 1. keep NPO until H/H stable 2. Monitor H/H serially. 3. PPI IV 4. There is still risk for recurrent bleeding given continued anticoagulation b ut there was active bleeding at the end of the procedure 5. Discussed with ICU attending and patient's daughter.
--- NOTE | 2020-11-20 13:58 | Progress Note ---
Assessment and Plan Cultures: Blood culture no growth so far Respiratory culture: MRSA Covid PCR: Positive A/P: 85-year-old female past medical history obesity, chronic low back pain, depression admitted with COVID-19 #Severe COVID-19 pneumonia: Patient presented with a week of symptoms, chest x- ray with diffuse bilateral infiltrates, admission O2 sats 89-90% on room air. Inflammatory markers elevated. Normal procalcitonin. Was not remdesivir candidate due to renal function. #Acute hypoxemic respiratory failure: Likely secondary to COVID-19 infection. Currently on the vent. Her inflammatory markers are improving significantly. #KATLYN: renally dose medications. not a candidate for remdesivir #nephrolithiasis: with associated hydronephrosis. Initial UA was normal, second was was most likely highly contaminated given large amounts of blood and epithelial cells. Given lack of signs of urinary tract infection on imaging this was most likely caused by inflammation. Recs: -Dexamethasone 6 mg IV/PO daily for 10 days -s/p Actemra -Obtain q48-72h inflammatory markers - ferritin, Ddimer, CRP, LDH -Anticoagulation per hospital protocol -Proning as able -Started vancomycin and cefepime today given new fevers and worsening white count -Follow up urine cultures. Thank you for the consult, we will continue to follow. Araceli Chacon MD [facility] ([facility] O: [phone] F: [phone] Subjective Date of service: 11/20/20 Principal diagnosis: Ac hypoxemic resp failure; COVID-19 infxn; Pneumonia; KATLYN; AMS; Sepsis Interval history: Febrile nausea one 101.1 with a white count that is continued to increase to 20. She had EGD today which showed a bleeding ulcer. Objective - Exam Narrative Exam: Physical exam deferred to reduce risk of transmission of COVID-19. Please refer to primary team's note. - Constitutional Vitals: Vital Signs Temp Pulse Resp BP Pulse Ox 101.1 F H 116 H 21 112/60 100 11/20/20 12:07 11/20/20 13:11 11/20/20 13:11 11/20/20 13:11 11/20/20 13:11 Temperature -Last 24 Hours Temperature 101.1 F Temperature 101.1 F Temperature 97.8 F Temperature 99.0 F Temperature 98.8 F Temperature 97.8 F Temperature 98.8 F Temperature 98.8 F Temperature 99.0 F Temperature 98.8 F Temperature 97.7 F - Labs CBC & Chem 7: 11/20/20 09:57 11/20/20 04:09 Labs: Abnormal lab results 11/19/20 11/19/20 11/19/20 Range/Units 14:10 17:28 19:45 WBC 22.7 H (4.5-11.0) K/mm3 RBC 3.14 L (3.65-5.03) M/mm3 Hgb 8.9 L 9.0 L (10.1-14.3) gm/dl Hct 27.0 L 27.2 L (30.3-42.9) % Seg Neuts % (Manual) (40.0-70.0) % Lymphocytes % (Manual) (13.4-35.0) % Seg Neutrophils # Man (1.8-7.7) K/mm3 Lymphocytes # (Manual) (1.2-5.4) K/mm3 PT (12.2-14.9) Sec. INR (0.87-1.13) Heparin Anti-Xa Level (0.3-0.7) U.I./ml ABG pH (7.320-7.450) POC ABG pCO2 (32.0-48.0) mmHg POC ABG pO2 (83-108) mmHg ABG Hemoglobin (12.0-17.5) ABG Chloride (98-107) mmol/L ABG Glucose (65-95) mg/dL Carboxyhemoglobin (0.5-1.5) Sodium (137-145) mmol/L Chloride (98-107) mmol/L BUN (7-17) mg/dL Creatinine (0.6-1.2) mg/dL Glucose (65-100) mg/dL POC Glucose 186 H (70-105) mg/dL Lactic Acid (0.7-2.0) mmol/L Calcium (8.4-10.2) mg/dL Phosphorus (2.5-4.5) mg/dL AST (5-40) units/L ALT (7-56) units/L Total Protein (6.3-8.2) g/dL Albumin (3.9-5) g/dL Arterial Blood Glucose (65-95) mg/dL Arterial Blood Ionized Calcium (4.6-5.3) mg/dL Urine WBC (Auto) (0.0-6.0) /HPF Crossmatch 11/19/20 11/19/20 11/19/20 Range/Units 19:45 19:45 19:45 WBC (4.5-11.0) K/mm3 RBC (3.65-5.03) M/mm3 Hgb (10.1-14.3) gm/dl Hct (30.3-42.9) % Seg Neuts % (Manual) (40.0-70.0) % Lymphocytes % (Manual) (13.4-35.0) % Seg Neutrophils # Man (1.8-7.7) K/mm3 Lymphocytes # (Manual) (1.2-5.4) K/mm3 PT 24.6 H (12.2-14.9) Sec. INR 2.18 H (0.87-1.13) Heparin Anti-Xa Level (0.3-0.7) U.I./ml ABG pH (7.320-7.450) POC ABG pCO2 (32.0-48.0) mmHg POC ABG pO2 (83-108) mmHg ABG Hemoglobin (12.0-17.5) ABG Chloride (98-107) mmol/L ABG Glucose (65-95) mg/dL Carboxyhemoglobin (0.5-1.5) Sodium (137-145) mmol/L Chloride (98-107) mmol/L BUN 58 H (7-17) mg/dL Creatinine (0.6-1.2) mg/dL Glucose 192 H (65-100) mg/dL POC Glucose (70-105) mg/dL Lactic Acid 2.20 H* (0.7-2.0) mmol/L Calcium 6.9 L (8.4-10.2) mg/dL Phosphorus (2.5-4.5) mg/dL AST 119 H (5-40) units/L ALT 143 H (7-56) units/L Total Protein 4.0 L (6.3-8.2) g/dL Albumin 2.3 L (3.9-5) g/dL Arterial Blood Glucose (65-95) mg/dL Arterial Blood Ionized Calcium (4.6-5.3) mg/dL Urine WBC (Auto) (0.0-6.0) /HPF Crossmatch 11/19/20 11/19/20 11/19/20 Range/Units 19:45 22:00 23:25 WBC (4.5-11.0) K/mm3 RBC (3.65-5.03) M/mm3 Hgb (10.1-14.3) gm/dl Hct (30.3-42.9) % Seg Neuts % (Manual) (40.0-70.0) % Lymphocytes % (Manual) (13.4-35.0) % Seg Neutrophils # Man (1.8-7.7) K/mm3 Lymphocytes # (Manual) (1.2-5.4) K/mm3 PT (12.2-14.9) Sec. INR (0.87-1.13) Heparin Anti-Xa Level > 2.00 H (0.3-0.7) U.I./ml ABG pH (7.320-7.450) POC ABG pCO2 (32.0-48.0) mmHg POC ABG pO2 (83-108) mmHg ABG Hemoglobin (12.0-17.5) ABG Chloride (98-107) mmol/L ABG Glucose (65-95) mg/dL Carboxyhemoglobin (0.5-1.5) Sodium (137-145) mmol/L Chloride (98-107) mmol/L BUN (7-17) mg/dL Creatinine (0.6-1.2) mg/dL Glucose (65-100) mg/dL POC Glucose 155 H (70-105) mg/dL Lactic Acid (0.7-2.0) mmol/L Calcium (8.4-10.2) mg/dL Phosphorus (2.5-4.5) mg/dL AST (5-40) units/L ALT (7-56) units/L Total Protein (6.3-8.2) g/dL Albumin (3.9-5) g/dL Arterial Blood Glucose (65-95) mg/dL Arterial Blood Ionized Calcium (4.6-5.3) mg/dL Urine WBC (Auto) (0.0-6.0) /HPF Crossmatch See Detail 11/19/20 11/20/20 11/20/20 Range/Units 23:45 04:00 04:09 WBC (4.5-11.0) K/mm3 RBC (3.65-5.03) M/mm3 Hgb (10.1-14.3) gm/dl Hct (30.3-42.9) % Seg Neuts % (Manual) (40.0-70.0) % Lymphocytes % (Manual) (13.4-35.0) % Seg Neutrophils # Man (1.8-7.7) K/mm3 Lymphocytes # (Manual) (1.2-5.4) K/mm3 PT (12.2-14.9) Sec. INR (0.87-1.13) Heparin Anti-Xa Level (0.3-0.7) U.I./ml ABG pH 7.595 H (7.320-7.450) POC ABG pCO2 25.2 L (32.0-48.0) mmHg POC ABG pO2 69.0 L (83-108) mmHg ABG Hemoglobin 9.8 L (12.0-17.5) ABG Chloride 110.0 H (98-107) mmol/L ABG Glucose 178 H (65-95) mg/dL Carboxyhemoglobin 0.2 L (0.5-1.5) Sodium 147 H (137-145) mmol/L Chloride 107.8 H (98-107) mmol/L BUN 63 H (7-17) mg/dL Creatinine 1.3 H (0.6-1.2) mg/dL Glucose 151 H (65-100) mg/dL POC Glucose (70-105) mg/dL Lactic Acid (0.7-2.0) mmol/L Calcium 6.3 L (8.4-10.2) mg/dL Phosphorus (2.5-4.5) mg/dL AST (5-40) units/L ALT (7-56) units/L Total Protein (6.3-8.2) g/dL Albumin (3.9-5) g/dL Arterial Blood Glucose 178 H (65-95) mg/dL Arterial Blood Ionized Calcium 3.7 L (4.6-5.3) mg/dL Urine WBC (Auto) > 182.0 H (0.0-6.0) /HPF Crossmatch 11/20/20 11/20/20 11/20/20 Range/Units 04:09 05:13 09:57 WBC 20.9 H (4.5-11.0) K/mm3 RBC 3.48 L (3.65-5.03) M/mm3 Hgb 10.0 L 9.4 L (10.1-14.3) gm/dl Hct 30.1 L 28.5 L (30.3-42.9) % Seg Neuts % (Manual) 77.0 H (40.0-70.0) % Lymphocytes % (Manual) 3.0 L (13.4-35.0) % Seg Neutrophils # Man 16.1 H (1.8-7.7) K/mm3 Lymphocytes # (Manual) 0.6 L (1.2-5.4) K/mm3 PT (12.2-14.9) Sec. INR (0.87-1.13) Heparin Anti-Xa Level (0.3-0.7) U.I./ml ABG pH (7.320-7.450) POC ABG pCO2 (32.0-48.0) mmHg POC ABG pO2 (83-108) mmHg ABG Hemoglobin (12.0-17.5) ABG Chloride (98-107) mmol/L ABG Glucose (65-95) mg/dL Carboxyhemoglobin (0.5-1.5) Sodium (137-145) mmol/L Chloride (98-107) mmol/L BUN (7-17) mg/dL Creatinine (0.6-1.2) mg/dL Glucose (65-100) mg/dL POC Glucose 126 H (70-105) mg/dL Lactic Acid (0.7-2.0) mmol/L Calcium (8.4-10.2) mg/dL Phosphorus (2.5-4.5) mg/dL AST (5-40) units/L ALT (7-56) units/L Total Protein (6.3-8.2) g/dL Albumin (3.9-5) g/dL Arterial Blood Glucose (65-95) mg/dL Arterial Blood Ionized Calcium (4.6-5.3) mg/dL Urine WBC (Auto) (0.0-6.0) /HPF Crossmatch 11/20/20 11/20/20 Range/Units 09:57 12:07 WBC (4.5-11.0) K/mm3 RBC (3.65-5.03) M/mm3 Hgb (10.1-14.3) gm/dl Hct (30.3-42.9) % Seg Neuts % (Manual) (40.0-70.0) % Lymphocytes % (Manual) (13.4-35.0) % Seg Neutrophils # Man (1.8-7.7) K/mm3 Lymphocytes # (Manual) (1.2-5.4) K/mm3 PT (12.2-14.9) Sec. INR (0.87-1.13) Heparin Anti-Xa Level (0.3-0.7) U.I./ml ABG pH (7.320-7.450) POC ABG pCO2 (32.0-48.0) mmHg POC ABG pO2 (83-108) mmHg ABG Hemoglobin (12.0-17.5) ABG Chloride (98-107) mmol/L ABG Glucose (65-95) mg/dL Carboxyhemoglobin (0.5-1.5) Sodium (137-145) mmol/L Chloride (98-107) mmol/L BUN (7-17) mg/dL Creatinine (0.6-1.2) mg/dL Glucose (65-100) mg/dL POC Glucose 121 H (70-105) mg/dL Lactic Acid (0.7-2.0) mmol/L Calcium (8.4-10.2) mg/dL Phosphorus 5.40 H D (2.5-4.5) mg/dL AST (5-40) units/L ALT (7-56) units/L Total Protein (6.3-8.2) g/dL Albumin (3.9-5) g/dL Arterial Blood Glucose (65-95) mg/dL Arterial Blood Ionized Calcium (4.6-5.3) mg/dL Urine WBC (Auto) (0.0-6.0) /HPF Crossmatch
[2020-11-20] MEDS ORDERED: VANCOMYCIN PHARMACY TO DOSE IV SCH (14:00)
--- NOTE | 2020-11-20 14:43 | Event Note ---
Date: 11/20/20 Overnight the patient received 1 unit of packed red blood cells and responded appropriately. The patient underwent EGD today and was found to have a gastric ulcer with active bleeding. This was adequately treated. The patient remains on a heparin drip at this time for an inadvertent triple-lumen catheter in the left carotid artery. The patient has sepsis-induced coagulopathy with an INR yesterday 2.1. Given the mechanism of sepsis-induced coagulopathy is initiated from a prothrombogenic state which is why COVID-19 infection has such a high rate of associated thrombus, I will recommend continuing the heparin drip as long as the patient has no evidence of active bleeding given her risk of stroke with the left carotid artery triple-lumen catheter. If the patient were to begin bleeding will consider treating the source of bleeding or treating the coagulopathy with product such as FFP rather than stopping the heparin drip.
[2020-11-20] MEDS: VASOPRESSIN 20 UNIT in SODIUM CHLORIDE 0.9% 100 ML IV SCH ×2 (14:50→22:00)
[2020-11-20] MEDS: CEFEPIME/NS 2 GM/100 ML 2 GM/100 ML BAG IV SCH (14:50)
[2020-11-20] MEDS: fentaNYL DRIP Premix 2,000 MCG/100 ML BAG IV SCH (14:51)
[2020-11-20] MEDS: VANCOMYCIN 1,500 MG in SODIUM CHLORIDE 0.9% 500 ML 500 ML IV SCH (15:06)
[2020-11-20] MEDS: rOPINIRole 1 MG TAB PO SCH (21:31)
[2020-11-20] MEDS: HEPARIN/ 0.45% NACL DRIP 25,000 UNIT/500 ML BAG IV SCH (23:34)
[2020-11-21 00:47] LABS: Hematocrit 21.9 % (30.3-42.9)
[2020-11-21] MEDS: CEFEPIME/NS 2 GM/100 ML 2 GM/100 ML BAG IV SCH ×2 (01:51→15:21)
[2020-11-21] MEDS: PANTOPRAZOLE 80 MG in SODIUM CHLORIDE 0.9% 100 ML IV SCH ×2 (03:10→16:17)
[2020-11-21] MEDS: INSULIN REGULAR, HUMAN 100 UNITS/1 ML SUB-Q SCH ×2 (05:26→17:56)
[2020-11-21] MEDS: NORepinephrine/NS 8 MG-250 ML 8 MG/250 ML INFUS..BTL IV SCH ×3 (06:52→16:17)
[2020-11-21] MEDS ORDERED: SODIUM CHLORIDE 0.9% 500 ML 500 ML IV NR ×2 (08:03→08:52)
--- NOTE | 2020-11-21 08:15 | XRay Report ---
CHEST 1 VIEW INDICATION: hypoxia. COMPARISON: One day prior. FINDINGS: Support devices: Satisfactory position. Gastric tube has been removed. Heart: Stable. Lungs/Pleura: Mild bibasilar opacities are stable. No pneumothorax. IMPRESSION: 1. No significant change. Signer Name: Matt Turner MD Signed: 11/21/2020 8:11 AM Workstation Name: [id number]
[2020-11-21] MEDS: VASOPRESSIN 20 UNIT in SODIUM CHLORIDE 0.9% 100 ML IV SCH ×2 (08:55→18:20)
--- NOTE | 2020-11-21 09:28 | Progress Note ---
Assessment and Plan 1. Acute kidney injury: KATLYN in the setting of severe Covid infection. Patient is also hypotensive. Received IV contrast 11/13. CT abdomen showed non-obstructive 7 mm distal left ureteral stone. Low FeNa. Monitor renal function. Creatinine level is better. Avoid nephrotoxic agents. Meds dosage based on GFR. Lans pending. 2. FEN: Hypernatremia, on Metolazone, monitor. Hyperchloremic metabolic acidosis, improved, monitor. Hypokalemia, replete K as needed, monitor. Monitor lytes and volume status. 3. Acute respiratory failure with hypoxemia: 2/2 Covid PNA. Currently on vent, wean as tolerated. 4. Shock: On Levophed and Vasopressin. Monitor. 5. Covid PNA: Followed by ID. 6. L ureteral stone: S/p b/l stent. Seen by Urologist. 7. Elevated ALT & AST: Trend. 8. DM type 2: Monitor. Subjective: Patient was seen and examined at the bedside. D/w ICU PA. Examination: General appearance: well-developed, appears stated age, intubated on vent HEENT: atraumatic, no icterus Neck: trachea midline Respiratory: MV sounds Heart: S1S2, regular, no murmur Abdomen: soft, bowel sounds heard, NT Integumentary: no obvious rash Neurologic: not responding Ext: dependent edema noted Subjective Date of service: 11/21/20 Principal diagnosis: Ac hypoxemic resp failure; COVID-19 infxn; Pneumonia; KATLYN; AMS; Sepsis Objective - Vital Signs Vital signs: Vital Signs - 12hr 11/20/20 11/20/20 11/20/20 21:31 21:45 21:57 Temperature Pulse Rate 96 H 96 H 99 H Pulse Rate [ From Monitor] Respiratory 24 24 Rate Blood Pressure 93/58 90/54 O2 Sat by Pulse 100 100 Oximetry 11/20/20 11/20/20 11/20/20 22:00 22:15 22:30 Temperature Pulse Rate 96 H 95 H 95 H Pulse Rate [ From Monitor] Respiratory 21 24 22 Rate Blood Pressure 91/61 93/64 95/50 O2 Sat by Pulse 100 100 100 Oximetry 11/20/20 11/20/20 11/20/20 22:33 22:45 23:01 Temperature Pulse Rate 97 H 95 H 94 H Pulse Rate [ From Monitor] Respiratory 22 22 23 Rate Blood Pressure 95/50 96/45 102/41 O2 Sat by Pulse 100 Oximetry 11/20/20 11/20/20 11/20/20 23:15 23:30 23:45 Temperature Pulse Rate 94 H 94 H 93 H Pulse Rate [ From Monitor] Respiratory 22 25 H 27 H Rate Blood Pressure 98/47 91/59 100/55 O2 Sat by Pulse 100 100 100 Oximetry 11/21/20 11/21/20 11/21/20 00:00 00:01 00:15 Temperature 98.6 F Pulse Rate 102 H 96 H 95 H Pulse Rate [ From Monitor] Respiratory 20 21 Rate Blood Pressure 94/50 103/45 O2 Sat by Pulse 100 100 100 Oximetry 11/21/20 11/21/20 11/21/20 00:30 00:45 01:00 Temperature Pulse Rate 95 H 98 H 94 H Pulse Rate [ From Monitor] Respiratory 31 H 27 H 25 H Rate Blood Pressure 98/58 98/58 105/47 O2 Sat by Pulse 100 100 100 Oximetry 11/21/20 11/21/20 11/21/20 01:15 01:30 01:45 Temperature Pulse Rate 94 H 96 H 94 H Pulse Rate [ From Monitor] Respiratory 22 22 27 H Rate Blood Pressure 103/55 102/64 102/64 O2 Sat by Pulse 100 Oximetry 11/21/20 11/21/20 11/21/20 02:01 02:15 02:30 Temperature Pulse Rate 93 H 90 91 H Pulse Rate [ From Monitor] Respiratory 21 23 26 H Rate Blood Pressure 98/53 107/62 112/64 O2 Sat by Pulse 100 100 Oximetry 11/21/20 11/21/20 11/21/20 02:45 03:01 03:15 Temperature Pulse Rate 92 H 92 H 94 H Pulse Rate [ From Monitor] Respiratory 27 H 29 H 19 Rate Blood Pressure 89/60 O2 Sat by Pulse 100 100 Oximetry 11/21/20 11/21/20 11/21/20 03:31 03:36 03:45 Temperature 96.8 F L Pulse Rate 93 H 93 H Pulse Rate [ From Monitor] Respiratory 19 30 H Rate Blood Pressure 109/55 109/55 O2 Sat by Pulse 98 99 Oximetry 11/21/20 11/21/20 11/21/20 04:00 04:15 04:30 Temperature Pulse Rate 94 H 101 H 98 H Pulse Rate [ From Monitor] Respiratory 31 H 28 H Rate Blood Pressure 113/65 113/65 96/68 O2 Sat by Pulse 94 Oximetry 11/21/20 11/21/20 11/21/20 04:45 05:01 05:15 Temperature Pulse Rate 96 H 95 H 94 H Pulse Rate [ From Monitor] Respiratory 19 22 21 Rate Blood Pressure 96/68 103/49 100/61 O2 Sat by Pulse 94 Oximetry 11/21/20 11/21/20 11/21/20 05:30 05:45 06:01 Temperature Pulse Rate 94 H 94 H 94 H Pulse Rate [ From Monitor] Respiratory 36 H 25 H 18 Rate Blood Pressure 91/68 100/61 79/57 O2 Sat by Pulse Oximetry 11/21/20 11/21/20 11/21/20 06:15 06:31 06:45 Temperature Pulse Rate 93 H 93 H 93 H Pulse Rate [ From Monitor] Respiratory 26 H 27 H 19 Rate Blood Pressure 79/57 105/85 105/85 O2 Sat by Pulse Oximetry 11/21/20 11/21/20 11/21/20 07:01 07:13 07:15 Temperature 96.3 F L Pulse Rate 93 H 88 Pulse Rate [ From Monitor] Respiratory 23 22 Rate Blood Pressure 98/24 124/100 O2 Sat by Pulse Oximetry 11/21/20 11/21/20 11/21/20 07:31 07:45 08:00 Temperature Pulse Rate 93 H 94 H 94 H Pulse Rate [ 94 H From Monitor] Respiratory 24 31 H 22 Rate Blood Pressure 124/100 90/25 O2 Sat by Pulse 54 L 100 Oximetry 11/21/20 11/21/20 11/21/20 08:01 08:15 08:22 Temperature Pulse Rate 96 H 97 H 98 H Pulse Rate [ From Monitor] Respiratory 21 23 Rate Blood Pressure 51/33 129/108 127/107 O2 Sat by Pulse 97 Oximetry - Lab 11/21/20 00:27 11/20/20 04:09 Most recent lab results ABG pH 7.468 (7.320-7.450) H 11/20/20 20:48 ABG O2 Saturation 95.7 (0-100) 11/20/20 20:48 Calcium 6.3 mg/dL (8.4-10.2) L 11/20/20 04:09 Phosphorus 5.40 mg/dL (2.5-4.5) H D 11/20/20 09:57 Magnesium 1.80 mg/dL (1.7-2.3) 11/19/20 04:00 Urine Creatinine 80.2 mg/dL (0.1-20.0) H 11/14/20 06:15 Urine Sodium 28 mmol/L 11/14/20 06:15 Medications & Allergies - Medications Allergies/Adverse Reactions: Allergies morphine Adverse Reaction (Verified 05/26/13 19:22) Nausea Home Medications: Home Medications Medication Instructions Recorded Confirmed Last Taken Type Acetaminophen [Tylenol] 325 mg PO DAILY #10 tablet 05/26/13 10/17/14 10/16/14 Rx Baclofen [Lioresal] 10 mg PO TID PRN 05/26/13 10/17/14 10/16/14 History Diazepam [Valium] 10 mg PO BID 05/26/13 10/17/14 10/16/14 History PARoxetine [Paxil] 10 mg PO DAILY 05/26/13 10/17/14 10/16/14 19:00 History Quetiapine Fumarate [SEROquel XR] 200 mg PO DAILY 05/26/13 10/17/14 10/16/14 History rOPINIRole [Requip] 1 mg PO QHS 05/26/13 10/17/14 10/16/14 19:00 History QUEtiapine [SEROquel] 200 mg PO QHS 05/28/13 10/17/14 10/16/14 19:00 History Famotidine [Pepcid] 10 mg PO BID #60 tablet 06/02/13 10/17/14 10/16/14 Rx levoFLOXacin [Levaquin] 750 mg PO QDAY #7 tablet 06/02/13 10/17/14 10/16/14 Rx metroNIDAZOLE [Flagyl] 500 mg PO Q8HR #30 tablet 06/02/13 10/17/14 10/16/14 Rx Hydromorphone HCl [Dilaudid] 4 mg PO 10/17/14 10/17/14 10/16/14 History Oxycodone HCl/Acetaminophen 1 each PO Q6HR PRN 10/17/14 10/17/14 10/16/14 History [Percocet 10-325 mg] Oxycodone HCl/Acetaminophen 1 each PO Q6HR PRN #30 tablet 10/18/14 Unknown Rx [Percocet 10-325 mg] Active Medications: Generic Name Dose Route Start Last Admin Trade Name Vasiliy PRN Reason Stop Dose Admin Acetaminophen 650 mg 11/11/20 22:11 11/19/20 11:30 Acetaminophen 325 Mg Tab PO 650 mg Q4H PRN Administration Pain MILD(1-3)/Fever >100.5/ERAZO Albuterol 2.5 mg 11/13/20 07:40 Albuterol 2.5 Mg/3 Ml Nebu IH Q4HRT PRN Shortness Of Breath Lipase/Protease/Amylase 1 each 11/13/20 17:32 Lipase 10,500/Protease 25,000/Amylase 43,750 (Units) Dr Weiss FEEDTUBE PRN PRN For Clogged Feeding Tube Ascorbic Acid 500 mg 11/13/20 22:00 11/20/20 21:32 Ascorbic Acid 500 Mg Tab PO Not Given BID CARLOS Baclofen 10 mg 11/11/20 22:09 Baclofen 10 Mg Tab PO TID PRN MUSCLE SPASMS & PAIN Calcium Carbonate/Glycine 1,250 mg 11/19/20 10:00 11/20/20 09:49 Calcium Carbonate 1250 Mg/5 Ml Oral Liqd FEEDTUBE 11/21/20 23:59 1,250 mg QDAY CARLOS Administration Dexamethasone 6 mg 11/13/20 10:00 11/20/20 09:49 Dexamethasone 4 Mg/Ml Vial IV 11/22/20 10:01 6 mg Q24HR CARLOS Administration Dextrose 50 ml 11/13/20 16:43 11/14/20 01:12 Dextrose 50% In Water (25gm) 50 Ml Syringe IV 50 ml Q30MIN PRN Administration Hypoglycemia Protocol Fentanyl 50 mcg 11/13/20 05:33 Fentanyl 100 Mcg/2 Ml Inj IV Q10MIN PRN ANALGESIA Heparin Sodium (Porcine) 3,000 unit 11/13/20 05:04 Heparin 10,000 Units/10 Ml Vial 40 unit/kg (3000 unit) IV Q6H PRN Anti-Xa Assay < 0.1 units/ml Hydrophilic Ointment 1 applic 11/13/20 05:33 Lip Therapy Vaseline TP Q2HR PRN Dry Lips Heparin Sodium/Sodium Chloride 25,000 unit in 500 mls @ 23 mls/hr 11/13/20 06:00 11/21/20 02:30 Heparin/ 0.45% Nacl-25,000 Unit/500 Ml IV 750 units/hr TITR CARLOS 15 mls/hr Titration Protocol 1,150 UNITS/HR Fentanyl Citrate 2,000 mcg in 100 mls @ 3.81 mls/hr 11/13/20 06:00 11/20/20 14:51 Fentanyl Drip Premix IV 1 mcg/kg/hr TITR CARLOS 3.81 mls/hr Administration Protocol 1 MCG/KG/HR NORepinephrine/NS 8 MG-250 ML 8 mg in 250 mls @ 3.75 mls/hr 11/13/20 15:00 11/21/20 08:00 Norepinephrine/Ns 8 Mg-250 Ml (Double Conc) IV 24 mcg/min TITRATE CARLOS 45 mls/hr Titration Protocol 2 MCG/MIN Vasopressin 20 unit/ Sodium 101 mls @ 9.09 mls/hr 11/19/20 09:00 11/21/20 08:55 Chloride IV 0.03 units/min TITR CARLOS 9.09 mls/hr Administration Protocol 0.03 UNITS/MIN Pantoprazole Sodium 80 mg/ 100 mls @ 10 mls/hr 11/19/20 15:00 11/21/20 03:10 Sodium Chloride IV 11/22/20 14:59 8 mg/hr DIRECT CARLOS 10 mls/hr Administration 8 MG/HR Dextrose/Sodium Chloride 1,000 mls @ 42 mls/hr 11/20/20 11:00 11/20/20 11:40 D5/0.45ns IV 11/21/20 10:59 42 mls/hr DIRECT CARLOS Administration Cefepime HCl 2 gm in 100 mls @ 200 mls/hr 11/20/20 14:00 11/21/20 01:51 Cefepime/Ns 2 Gm/100 Ml IV 200 mls/hr Q12H CARLOS Administration Protocol Vancomycin HCl 1,500 mg/ 530 mls @ 333.333 mls/hr 11/20/20 15:00 11/20/20 15:06 Sodium Chloride IV 333.333 mls/hr Q24H CARLOS Administration Sodium Chloride 500 mls @ 0 mls/hr 11/21/20 08:03 Nacl 0.9% 500 Ml IV 11/21/20 23:59 ONCE NR As Directed Phenylephrine HCl 100 mg/ 100 mls @ 3 mls/hr 11/21/20 08:15 Sodium Chloride IV TITR [facility] Protocol 50 MCG/MIN Sodium Chloride 500 mls @ 0 mls/hr 11/21/20 08:52 Nacl 0.9% 500 Ml IV 11/21/20 23:59 ONCE NR As Directed Insulin Human Regular 0 units 11/21/20 00:00 11/21/20 05:26 Insulin Regular, Human 100 Units/1 Ml SUB-Q Not Given Q6HR [facility] Protocol Multi-Ingred Cream/Lotion/Oil/Oint 1 applic 11/13/20 05:33 Mineral Oil/Petrolatum, White Ophth Oint 3.5 Gm OU Q4HR PRN Dry Eye(s) Ondansetron HCl 4 mg 11/11/20 22:11 Ondansetron 4 Mg/2 Ml Inj IV Q3H PRN Nausea And Vomiting Pantoprazole Sodium 40 mg 11/22/20 22:00 Pantoprazole 40 Mg Inj IV BID CARLOS Simple Syrup 15 ml 11/13/20 17:32 Simple Syrup 15 Ml FEEDTUBE PRN PRN Hypoglycemia Simple Syrup 30 ml 11/13/20 17:32 Simple Syrup 15 Ml FEEDTUBE PRN PRN Hypoglycemia Sodium Bicarbonate 325 mg 11/13/20 17:32 Sodium Bicarbonate 325 Mg Tab FEEDTUBE PRN PRN For Clogged Feeding Tube Sodium Chloride 10 ml 11/12/20 10:00 11/20/20 21:31 Sodium Chloride 0.9% 10 Ml Flush Syringe IV 10 ml BID CARLOS Administration Sodium Chloride 10 ml 11/11/20 22:11 Sodium Chloride 0.9% 10 Ml Flush Syringe IV PRN PRN LINE FLUSH Zinc Sulfate 220 mg 11/13/20 22:00 11/20/20 21:32 Zinc Sulfate 220 Mg Cap PO Not Given BID CARLOS
[2020-11-21] MEDS: ASCORBIC ACID 500 MG TAB PO SCH ×2 (09:42→21:14)
[2020-11-21] MEDS: ZINC SULFATE 220 MG CAP PO SCH ×2 (09:42→21:14)
[2020-11-21] MEDS: CALCIUM CARBONATE 1250 MG/5 ML ORAL LIQD FEEDTUBE SCH (09:43)
[2020-11-21] MEDS: dexAMETHasone 4 MG/ML VIAL IV SCH (09:44)
[2020-11-21] MEDS: PHENYLEPHRINE 100 MG in SODIUM CHLORIDE 0.9% 90 ML IV SCH ×2 (10:07→14:45)
[2020-11-21 10:46] LABS: Hematocrit 20.2 % (30.3-42.9); Hemoglobin 6.1 gm/dl (10.1-14.3)
[2020-11-21 10:56] LABS: Calcium 6.1 mg/dL (8.4-10.2)
[2020-11-21] MEDS ORDERED: EPINEPHrine 1 MG/1 ML 16 MG in SODIUM CHLORIDE 0.9% 250ML 234 ML IV SCH (11:00)
[2020-11-21] MEDS ORDERED: SODIUM CHLORIDE 0.9% 1000 ML 500 ML IV ONE (11:07)
[2020-11-21] MEDS ORDERED: INSULIN REGULAR, HUMAN 100 UNITS/1 ML IV ONE (11:30)
[2020-11-21] MEDS ORDERED: CALCIUM CHLORIDE 1,000 MG/10 ML SYRINGE IV ONE ×3 (11:36→12:00)
[2020-11-21] MEDS ORDERED: EPINEPHrine 1 MG/10 ML SYRINGE ONE (11:40)
[2020-11-21] MEDS ORDERED: SODIUM BICARB 8.4% 50 MEQ/50 ML SYRINGE IV ONE ×2 (11:40→13:00)
[2020-11-21] MEDS ORDERED: DEXTROSE 50% IN WATER (25GM) 50 ML VIAL IV ONE (11:40)
[2020-11-21] MEDS ORDERED: AMIODARONE 150 MG/3 ML INJ IV ONE (11:40)
[2020-11-21] MEDS ORDERED: DEXTROSE 50% IN WATER (25GM) 50 ML SYRINGE IV ONE (11:45)
[2020-11-21] MEDS ORDERED: CALCIUM GLUCONATE 2,000 MG in SODIUM CHLORIDE 0.9% 100 ML IV ONE (11:45)
--- NOTE | 2020-11-21 12:18 | Event Note ---
Date: 11/21/20 I called patient's daughter, Kirstin Azevedo at 1145 during the cardiac arrest and she stated "I do not want you to break her ribs, just let her go". Dr. Gonzales also verified Kirstin wishes. We asked if she wished for her mother code status to be changed to do not resuscitate to which Kirstin said "yes". Ms Tessie Gayle' code status was changed to DNR on [facility] and paperwork was signed by myself as a witness, Dr. Gonzales and Dr. Rodriguez. Ms Gayle' family will be visiting later today.
[2020-11-21] MEDS ORDERED: SODIUM CHLORIDE 0.9% 500 ML 500 ML IV SCH ×2 (12:23→15:20)
--- NOTE | 2020-11-21 12:31 | Event Note ---
Date: 11/21/20 (cardiac arrest) 1100 Hgb noted 2 RBC ordered stat labs pending heparin discontinued Dr Moran phoned with Hgb results- aware of above plan K noted to be 5.7 on newly reported labs Ca/D50 x 2/ insulin and bicarb ordered BG had been noted low- thus 2 amps D50 prior to insulin While at bedside treating the above K and infusing RBC Pt went into [facility] ACLS initiated see code record for all medications given 2 rounds epi and defibrillation x 2 - ROSC obtained to ST Family was contacted during events and pt made DNR Dr Gonzales, [facility] aware ABG obtained-acidotic- 2 amps bicarb given; pt more responsive to pressors 1235 coags still pending RBC x 2 and FFP x [address] Moran at bedside 1545 FFP still pending The high probability of a clinically significant, sudden or life threatening deterioration of the [multi] system(s) required my full and direct attention, intervention and personal management. The aggregate critical care time was [90] minutes. This time is in addition to time spent performing reported procedures but includes the following: [x] Data Review and interpretation [x] Patient assessment and monitoring of vital signs [x] Documentation [x] Medication orders and management
[2020-11-21 12:37] LABS: Fibrinogen 208 mg/dl (211-480)
--- NOTE | 2020-11-21 12:39 | Progress Note ---
Assessment and Plan Acute hypoxemic respiratory failure on MVS COVID-19 infection Pneumonia Severe Sepsis Acute toxic metabolic encephalopathy Inadvertently placed left carotid line Acute kidney injury Nephrolithiasis Leukocytosis Metabolic acidosis Mild hypernatremia - made DNR per family - continue D5W with 3 amps NaHCO3/l drip @ 150/hr - stop IV Heparin / anticoagulation - transfuse 4 units PRBC's - transfuse 4 units FFP's re: persistent bleeding and INR - repeat INR + H&H thereafter - continue PPI drip - wean vasopressors for MAP > 65 mmHg - spoke with daughter Kirstin after G.I. and she wants to know if an autopsy is possible (informed child welfare caseworker) - continue care as below otherwise; - continue Daily SAT and SBT assessment as tolerated - continue to wean supplemental oxygen for target O2 sat's > 90% acutely - VAP bundle addressed - continue lung protective strategies - continue bronchodilators with pulmonary hygiene per RT - wean per pulmonary driven protocols otherwise - continue accuchecks with glycemic control per SSI (While critically ill target blood glucose of 140-180 mg/dL; avoid hypoglycemia) - sedation prn for target RASS 0 to -1 - avoid nephrotoxins, renally dose all medications - continue to avoid benzodiazepine's, reduce the possibility of delirium - AB's per ID rec's - prn analgesia per CPOT score - Maintenance of sleep-wake cycle, avoid delirium - continue enteral nutritional support at goal rate as tolerated - G.I. & VTE prophylaxis - PT/OT/ROM exercises - continue mobility protocols for pressure ulcer prophylaxis - Monitor hemodynamics closely - continue other care per attending / other consultants - discharge planning ongoing concurrently COVID SPECIFIC INTERVENTIONS - Remdesivir as per ID/Pulmonary developed protocols - continue systemic steroids for severe COVID-19 infection - s/p Actemra - follow repeat COVID tests results - zinc and vitamin C supplementation - Monitor inflammatory markers per facility protocol - ferritin, Ddimer, CRP - therapeutic anticoagulation per system Protocol based on d-dimer and clinical considerations (re: Carotid artery thrombus) - Continue contact and airborne isolation .... Re-evaluate in am & prn CONDITION: CRITICAL PROGNOSIS: GUARDED CODE STATUS: FULL CODE The high probability of a clinically significant, sudden or life-threatening deterioration of the [respiratory, cardiovascular, renal & neurologic] system(s) required my full and direct attention, intervention and personal management. The aggregate critical care time was [40] minutes without overlap. Time includes spent on; [x] Data Review and interpretation [x] Patient assessment and monitoring of vital signs [x] Documentation [x] Medication orders and management Subjective Date of service: 11/21/20 Principal diagnosis: Ac hypoxemic resp failure; COVID-19 infxn; Pneumonia; KATLYN; AMS; Sepsis Interval history: Patient is seen today for: Acute hypoxemic respiratory failure; COVID-19 infxn; Pneumonia; Acute toxic metabolic encephalopathy; Carotid Artery thrombus; KATLYN; Leukocytosis Seen and examined at bedside; 24hour events reviewed; nursing and respiratory care staff consulted; no adverse overnight events reported to me; resting in bed; remains on MVS; s/p cardiac arrest with ROSC today; AMS is persistent; continues to bleed and IV Heparin held; no BRBPR; now on Levophed, neosynephrine & vasopressin Objective Vital Signs - 12hr 11/21/20 11/21/20 11/21/20 00:45 01:00 01:15 Temperature Pulse Rate 98 H 94 H 94 H Pulse Rate [ From Monitor] Respiratory 27 H 25 H 22 Rate Blood Pressure 98/58 105/47 103/55 O2 Sat by Pulse 100 100 Oximetry 11/21/20 11/21/20 11/21/20 01:30 01:45 02:01 Temperature Pulse Rate 96 H 94 H 93 H Pulse Rate [ From Monitor] Respiratory 22 27 H 21 Rate Blood Pressure 102/64 102/64 98/53 O2 Sat by Pulse 100 100 Oximetry 11/21/20 11/21/20 11/21/20 02:15 02:30 02:45 Temperature Pulse Rate 90 91 H 92 H Pulse Rate [ From Monitor] Respiratory 23 26 H 27 H Rate Blood Pressure 107/62 112/64 89/60 O2 Sat by Pulse 100 100 Oximetry 11/21/20 11/21/20 11/21/20 03:01 03:15 03:31 Temperature Pulse Rate 92 H 94 H 93 H Pulse Rate [ From Monitor] Respiratory 29 H 19 19 Rate Blood Pressure 109/55 O2 Sat by Pulse 100 98 Oximetry 11/21/20 11/21/20 11/21/20 03:36 03:45 04:00 Temperature 96.8 F L Pulse Rate 93 H 94 H Pulse Rate [ From Monitor] Respiratory 30 H Rate Blood Pressure 109/55 113/65 O2 Sat by Pulse 99 94 Oximetry 11/21/20 11/21/20 11/21/20 04:15 04:30 04:45 Temperature Pulse Rate 101 H 98 H 96 H Pulse Rate [ From Monitor] Respiratory 31 H 28 H 19 Rate Blood Pressure 113/65 96/68 96/68 O2 Sat by Pulse Oximetry 11/21/20 11/21/20 11/21/20 05:01 05:15 05:30 Temperature Pulse Rate 95 H 94 H 94 H Pulse Rate [ From Monitor] Respiratory 22 21 36 H Rate Blood Pressure 103/49 100/61 91/68 O2 Sat by Pulse 94 Oximetry 11/21/20 11/21/20 11/21/20 05:45 06:01 06:15 Temperature Pulse Rate 94 H 94 H 93 H Pulse Rate [ From Monitor] Respiratory 25 H 18 26 H Rate Blood Pressure 100/61 79/57 79/57 O2 Sat by Pulse Oximetry 11/21/20 11/21/20 11/21/20 06:31 06:45 07:01 Temperature Pulse Rate 93 H 93 H 93 H Pulse Rate [ From Monitor] Respiratory 27 H 19 23 Rate Blood Pressure 105/85 105/85 98/24 O2 Sat by Pulse Oximetry 11/21/20 11/21/20 11/21/20 07:13 07:15 07:31 Temperature 96.3 F L Pulse Rate 88 93 H Pulse Rate [ From Monitor] Respiratory 22 24 Rate Blood Pressure 124/100 124/100 O2 Sat by Pulse Oximetry 11/21/20 11/21/20 11/21/20 07:45 08:00 08:01 Temperature Pulse Rate 94 H 94 H 96 H Pulse Rate [ 94 H From Monitor] Respiratory 31 H 22 21 Rate Blood Pressure 90/25 51/33 O2 Sat by Pulse 54 L 100 Oximetry 11/21/20 11/21/20 11/21/20 08:15 08:22 08:31 Temperature Pulse Rate 97 H 98 H 100 H Pulse Rate [ From Monitor] Respiratory 23 19 Rate Blood Pressure 129/108 127/107 119/97 O2 Sat by Pulse 97 Oximetry 11/21/20 11/21/20 11/21/20 08:45 09:01 09:15 Temperature Pulse Rate 100 H 99 H 97 H Pulse Rate [ From Monitor] Respiratory 20 20 25 H Rate Blood Pressure 119/97 133/98 133/98 O2 Sat by Pulse Oximetry 11/21/20 11/21/20 11/21/20 09:31 09:45 10:01 Temperature Pulse Rate 96 H 97 H 96 H Pulse Rate [ From Monitor] Respiratory 25 H 26 H 23 Rate Blood Pressure 123/99 122/99 80/52 O2 Sat by Pulse Oximetry 11/21/20 11/21/20 11/21/20 10:15 10:31 10:41 Temperature Pulse Rate 96 H 95 H 94 H Pulse Rate [ From Monitor] Respiratory 22 25 H 21 Rate Blood Pressure 80/52 80/52 80/52 O2 Sat by Pulse Oximetry 11/21/20 11/21/20 11/21/20 10:51 11:01 11:11 Temperature Pulse Rate 94 H 91 H 89 Pulse Rate [ From Monitor] Respiratory 23 13 14 Rate Blood Pressure 61/43 61/43 61/43 O2 Sat by Pulse 86 Oximetry 11/21/20 11/21/20 11/21/20 11:21 11:28 11:31 Temperature 94.5 F L Pulse Rate 86 87 Pulse Rate [ From Monitor] Respiratory 15 12 13 Rate Blood Pressure 61/43 92/47 98/28 O2 Sat by Pulse Oximetry 11/21/20 11/21/20 11:41 12:15 Temperature 94.5 F L Pulse Rate 127 H Pulse Rate [ From Monitor] Respiratory 120 H Rate Blood Pressure 108/58 O2 Sat by Pulse 98 Oximetry Constitutional: appears uncomfortable, other (elderly obese female without increased respiratory effort at rest on MVS) Eyes: non-icteric ENT: oropharynx moist, other (ETT 24 cm NYA) Neck: supple, no lymphadenopathy, no JVD Effort: mildly labored Ascultation: Bilateral: diminished breath sounds, rhonchi (scant) Percussion: Bilateral: not dull Cardiovascular: regular rate and rhythm Gastrointestinal: hypoactive bowel sounds, soft, non-tender, non-distended (protuberant) Integumentary: normal Extremities: no cyanosis, pink and warm, pulses normal, edema (pedal and peripheral; 2++) Neurologic: non-focal exam (grossly), pupils equal and round (now at 6 mm), unable to assess Psychiatric: other (unable to assess re: AMS) CBC and BMP: 11/21/20 09:53 11/21/20 09:53 ABG, PT/INR, D-dimer: ABG ABG pH 7.056 (7.320-7.450) L 11/21/20 11:21 POC ABG pCO2 44.0 mmHg (32.0-48.0) 11/21/20 11:21 POC ABG pO2 87.3 mmHg (83-108) 11/21/20 11:21 POC ABG HCO3 12.1 11/21/20 11:21 ABG O2 Saturation 91.4 (0-100) 11/21/20 11:21 PT/INR, D-dimer PT 24.6 Sec. (12.2-14.9) H 11/19/20 19:45 INR 2.18 (0.87-1.13) H 11/19/20 19:45 D-Dimer 1808.23 ng/mlDDU (0-234) H 11/19/20 04:00 Abnormal lab findings: Abnormal Labs 11/11/20 11/11/20 11/11/20 13:39 13:39 16:59 WBC 19.5 H RBC 5.93 H Hgb 17.0 H Hct 50.6 H RDW Plt Count 449 H Lymph % (Auto) 12.0 L Haakon % (Auto) 7.7 H Lymph # (Auto) Haakon # (Auto) 1.5 H Seg Neutrophils % 80.0 H Seg Neuts % (Manual) Lymphocytes % (Manual) Monocytes % (Manual) Seg Neutrophils # 15.6 H Seg Neutrophils # Man Lymphocytes # (Manual) Monocytes # (Manual) PT INR Fibrinogen D-Dimer 1525.92 H Heparin Anti-Xa Level ABG pH POC ABG pCO2 POC ABG pO2 ABG Hemoglobin ABG Oxyhemoglobin ABG Sodium ABG Potassium ABG Chloride ABG Glucose Carboxyhemoglobin Sodium Potassium 3.5 L Chloride 97.3 L Carbon Dioxide BUN 30 H Creatinine 0.5 L Glucose 128 H POC Glucose Hemoglobin A1c Lactic Acid Calcium Phosphorus Magnesium Ferritin AST ALT Lactate Dehydrogenase C-Reactive Protein Total Protein Albumin 3.8 L Arterial Blood Glucose Arterial Blood Ionized Calcium Urine WBC (Auto) U Epithel Cells (Auto) Urine Creatinine Coronavirus (PCR) Crossmatch 11/11/20 11/11/20 11/11/20 16:59 17:12 Unknown WBC RBC Hgb Hct RDW Plt Count Lymph % (Auto) Haakon % (Auto) Lymph # (Auto) Haakon # (Auto) Seg Neutrophils % Seg Neuts % (Manual) Lymphocytes % (Manual) Monocytes % (Manual) Seg Neutrophils # Seg Neutrophils # Man Lymphocytes # (Manual) Monocytes # (Manual) PT INR Fibrinogen D-Dimer Heparin Anti-Xa Level ABG pH 7.501 H POC ABG pCO2 POC ABG pO2 55.0 L ABG Hemoglobin ABG Oxyhemoglobin 89.5 L ABG Sodium ABG Potassium 3.2 L ABG Chloride ABG Glucose 131 H Carboxyhemoglobin Sodium Potassium Chloride Carbon Dioxide BUN Creatinine Glucose 117 H POC Glucose Hemoglobin A1c Lactic Acid Calcium Phosphorus Magnesium Ferritin AST ALT Lactate Dehydrogenase 204 H C-Reactive Protein Total Protein Albumin Arterial Blood Glucose 131 H Arterial Blood Ionized Calcium Urine WBC (Auto) U Epithel Cells (Auto) Urine Creatinine Coronavirus (PCR) Positive A Crossmatch 11/12/20 11/12/20 11/12/20 05:07 05:07 05:07 WBC 16.7 H RBC 5.74 H Hgb 16.6 H Hct 50.3 H RDW Plt Count 450 H Lymph % (Auto) 12.1 L Haakon % (Auto) 7.5 H Lymph # (Auto) Haakon # (Auto) 1.3 H Seg Neutrophils % 77.9 H Seg Neuts % (Manual) Lymphocytes % (Manual) Monocytes % (Manual) Seg Neutrophils # 13.0 H Seg Neutrophils # Man Lymphocytes # (Manual) Monocytes # (Manual) PT INR Fibrinogen D-Dimer Heparin Anti-Xa Level ABG pH POC ABG pCO2 POC ABG pO2 ABG Hemoglobin ABG Oxyhemoglobin ABG Sodium ABG Potassium ABG Chloride ABG Glucose Carboxyhemoglobin Sodium 147 H Potassium Chloride Carbon Dioxide 35 H D BUN 34 H Creatinine Glucose 117 H POC Glucose Hemoglobin A1c 6.6 H Lactic Acid Calcium 11.1 H Phosphorus Magnesium Ferritin AST ALT Lactate Dehydrogenase C-Reactive Protein Total Protein Albumin Arterial Blood Glucose Arterial Blood Ionized Calcium Urine WBC (Auto) U Epithel Cells (Auto) Urine Creatinine Coronavirus (PCR) Crossmatch 11/12/20 11/13/20 11/13/20 23:58 01:36 04:00 WBC RBC Hgb Hct RDW Plt Count Lymph % (Auto) Haakon % (Auto) Lymph # (Auto) Haakon # (Auto) Seg Neutrophils % Seg Neuts % (Manual) Lymphocytes % (Manual) Monocytes % (Manual) Seg Neutrophils # Seg Neutrophils # Man Lymphocytes # (Manual) Monocytes # (Manual) PT INR Fibrinogen D-Dimer Heparin Anti-Xa Level ABG pH POC ABG pCO2 POC ABG pO2 ABG Hemoglobin ABG Oxyhemoglobin ABG Sodium 147.3 H ABG Potassium 3.2 L ABG Chloride 109.0 H ABG Glucose 118 H Carboxyhemoglobin 0.3 L Sodium Potassium 3.1 L Chloride Carbon Dioxide BUN 64 H Creatinine 2.2 H D Glucose 105 H POC Glucose 181 H Hemoglobin A1c Lactic Acid Calcium 8.3 L D Phosphorus Magnesium Ferritin AST 366 H ALT 316 H Lactate Dehydrogenase C-Reactive Protein Total Protein 5.4 L D Albumin 2.5 L Arterial Blood Glucose 118 H Arterial Blood Ionized Calcium Urine WBC (Auto) U Epithel Cells (Auto) Urine Creatinine Coronavirus (PCR) Crossmatch 11/13/20 11/13/20 11/13/20 05:23 08:22 09:51 WBC 15.9 H RBC Hgb Hct 44.4 H RDW Plt Count Lymph % (Auto) 5.7 L Haakon % (Auto) 9.0 H Lymph # (Auto) 0.9 L Haakon # (Auto) 1.4 H Seg Neutrophils % 85.3 H Seg Neuts % (Manual) Lymphocytes % (Manual) Monocytes % (Manual) Seg Neutrophils # 13.6 H Seg Neutrophils # Man Lymphocytes # (Manual) Monocytes # (Manual) PT 16.0 H INR 1.23 H Fibrinogen D-Dimer Heparin Anti-Xa Level ABG pH 7.243 L POC ABG pCO2 POC ABG pO2 82.0 L ABG Hemoglobin ABG Oxyhemoglobin 93.5 L ABG Sodium 146.6 H ABG Potassium 2.8 L ABG Chloride 114.0 H ABG Glucose 113 H Carboxyhemoglobin 0.4 L Sodium Potassium Chloride Carbon Dioxide BUN Creatinine Glucose POC Glucose Hemoglobin A1c Lactic Acid Calcium Phosphorus Magnesium Ferritin AST ALT Lactate Dehydrogenase C-Reactive Protein Total Protein Albumin Arterial Blood Glucose 113 H Arterial Blood Ionized Calcium Urine WBC (Auto) U Epithel Cells (Auto) Urine Creatinine Coronavirus (PCR) Crossmatch 11/13/20 11/13/20 11/13/20 09:51 09:51 09:51 WBC RBC Hgb Hct RDW Plt Count Lymph % (Auto) Haakon % (Auto) Lymph # (Auto) Haakon # (Auto) Seg Neutrophils % Seg Neuts % (Manual) Lymphocytes % (Manual) Monocytes % (Manual) Seg Neutrophils # Seg Neutrophils # Man Lymphocytes # (Manual) Monocytes # (Manual) PT INR Fibrinogen D-Dimer 5682.19 H Heparin Anti-Xa Level ABG pH POC ABG pCO2 POC ABG pO2 ABG Hemoglobin ABG Oxyhemoglobin ABG Sodium ABG Potassium ABG Chloride ABG Glucose Carboxyhemoglobin Sodium Potassium Chloride Carbon Dioxide BUN Creatinine Glucose 104 H POC Glucose Hemoglobin A1c Lactic Acid Calcium Phosphorus Magnesium Ferritin 1003.0 H AST ALT Lactate Dehydrogenase 1022 H C-Reactive Protein 5.50 H Total Protein Albumin Arterial Blood Glucose Arterial Blood Ionized Calcium Urine WBC (Auto) U Epithel Cells (Auto) Urine Creatinine Coronavirus (PCR) Crossmatch 11/13/20 11/14/20 11/14/20 21:50 00:50 04:25 WBC RBC Hgb Hct RDW Plt Count Lymph % (Auto) Haakon % (Auto) Lymph # (Auto) Haakon # (Auto) Seg Neutrophils % Seg Neuts % (Manual) Lymphocytes % (Manual) Monocytes % (Manual) Seg Neutrophils # Seg Neutrophils # Man Lymphocytes # (Manual) Monocytes # (Manual) PT INR Fibrinogen D-Dimer Heparin Anti-Xa Level 0.91 H ABG pH 7.215 L POC ABG pCO2 POC ABG pO2 ABG Hemoglobin ABG Oxyhemoglobin ABG Sodium 147.3 H ABG Potassium ABG Chloride 119.0 H ABG Glucose 156 H Carboxyhemoglobin Sodium Potassium Chloride Carbon Dioxide BUN Creatinine Glucose POC Glucose 59 L Hemoglobin A1c Lactic Acid Calcium Phosphorus Magnesium Ferritin AST ALT Lactate Dehydrogenase C-Reactive Protein Total Protein Albumin Arterial Blood Glucose 156 H Arterial Blood Ionized Calcium 4.3 L Urine WBC (Auto) U Epithel Cells (Auto) Urine Creatinine Coronavirus (PCR) Crossmatch 11/14/20 11/14/20 11/14/20 04:35 04:35 06:15 WBC RBC Hgb Hct 43.9 H RDW 15.3 H Plt Count Lymph % (Auto) Haakon % (Auto) Lymph # (Auto) Haakon # (Auto) Seg Neutrophils % Seg Neuts % (Manual) Lymphocytes % (Manual) Monocytes % (Manual) Seg Neutrophils # Seg Neutrophils # Man Lymphocytes # (Manual) Monocytes # (Manual) PT INR Fibrinogen D-Dimer Heparin Anti-Xa Level ABG pH POC ABG pCO2 POC ABG pO2 ABG Hemoglobin ABG Oxyhemoglobin ABG Sodium ABG Potassium ABG Chloride ABG Glucose Carboxyhemoglobin Sodium 151 H D Potassium Chloride 116.8 H Carbon Dioxide 18 L BUN 64 H Creatinine 2.1 H Glucose 148 H POC Glucose Hemoglobin A1c Lactic Acid Calcium 7.3 L Phosphorus Magnesium Ferritin AST ALT Lactate Dehydrogenase C-Reactive Protein 38.00 H Total Protein Albumin Arterial Blood Glucose Arterial Blood Ionized Calcium Urine WBC (Auto) > 182.0 H U Epithel Cells (Auto) 24.0 H Urine Creatinine Coronavirus (PCR) Crossmatch 11/14/20 11/14/20 11/14/20 06:15 06:15 12:01 WBC RBC Hgb Hct RDW Plt Count Lymph % (Auto) Haakon % (Auto) Lymph # (Auto) Haakon # (Auto) Seg Neutrophils % Seg Neuts % (Manual) Lymphocytes % (Manual) Monocytes % (Manual) Seg Neutrophils # Seg Neutrophils # Man Lymphocytes # (Manual) Monocytes # (Manual) PT INR Fibrinogen D-Dimer Heparin Anti-Xa Level 1.16 H ABG pH POC ABG pCO2 POC ABG pO2 ABG Hemoglobin ABG Oxyhemoglobin ABG Sodium ABG Potassium ABG Chloride ABG Glucose Carboxyhemoglobin Sodium Potassium Chloride Carbon Dioxide BUN Creatinine Glucose POC Glucose 107 H Hemoglobin A1c Lactic Acid Calcium Phosphorus Magnesium Ferritin AST ALT Lactate Dehydrogenase C-Reactive Protein Total Protein Albumin Arterial Blood Glucose Arterial Blood Ionized Calcium Urine WBC (Auto) U Epithel Cells (Auto) Urine Creatinine 80.2 H Coronavirus (PCR) Crossmatch 11/14/20 11/14/20 11/14/20 17:18 23:00 23:25 WBC RBC Hgb Hct RDW Plt Count Lymph % (Auto) Haakon % (Auto) Lymph # (Auto) Haakon # (Auto) Seg Neutrophils % Seg Neuts % (Manual) Lymphocytes % (Manual) Monocytes % (Manual) Seg Neutrophils # Seg Neutrophils # Man Lymphocytes # (Manual) Monocytes # (Manual) PT INR Fibrinogen D-Dimer Heparin Anti-Xa Level 0.96 H ABG pH POC ABG pCO2 POC ABG pO2 ABG Hemoglobin ABG Oxyhemoglobin ABG Sodium ABG Potassium ABG Chloride ABG Glucose Carboxyhemoglobin Sodium Potassium Chloride Carbon Dioxide BUN Creatinine Glucose POC Glucose 173 H 158 H Hemoglobin A1c Lactic Acid Calcium Phosphorus Magnesium Ferritin AST ALT Lactate Dehydrogenase C-Reactive Protein Total Protein Albumin Arterial Blood Glucose Arterial Blood Ionized Calcium Urine WBC (Auto) U Epithel Cells (Auto) Urine Creatinine Coronavirus (PCR) Crossmatch 11/15/20 11/15/20 11/15/20 01:45 04:57 04:57 WBC RBC Hgb Hct RDW 16.2 H Plt Count Lymph % (Auto) Haakon % (Auto) Lymph # (Auto) Haakon # (Auto) Seg Neutrophils % Seg Neuts % (Manual) Lymphocytes % (Manual) Monocytes % (Manual) Seg Neutrophils # Seg Neutrophils # Man Lymphocytes # (Manual) Monocytes # (Manual) PT INR Fibrinogen D-Dimer Heparin Anti-Xa Level ABG pH 7.246 L POC ABG pCO2 28.4 L POC ABG pO2 ABG Hemoglobin ABG Oxyhemoglobin ABG Sodium ABG Potassium ABG Chloride 116.0 H ABG Glucose 164 H Carboxyhemoglobin Sodium 147 H Potassium Chloride 114.0 H Carbon Dioxide 16 L BUN 68 H Creatinine 2.4 H Glucose 148 H POC Glucose Hemoglobin A1c Lactic Acid Calcium 7.3 L Phosphorus Magnesium Ferritin AST 395 H ALT 396 H Lactate Dehydrogenase 596 H C-Reactive Protein 34.50 H Total Protein 5.1 L Albumin 2.1 L Arterial Blood Glucose 164 H Arterial Blood Ionized Calcium 4.3 L Urine WBC (Auto) U Epithel Cells (Auto) Urine Creatinine Coronavirus (PCR) Crossmatch 11/15/20 11/15/20 11/15/20 04:57 04:57 05:20 WBC RBC Hgb Hct RDW Plt Count Lymph % (Auto) Haakon % (Auto) Lymph # (Auto) Haakon # (Auto) Seg Neutrophils % Seg Neuts % (Manual) Lymphocytes % (Manual) Monocytes % (Manual) Seg Neutrophils # Seg Neutrophils # Man Lymphocytes # (Manual) Monocytes # (Manual) PT INR Fibrinogen D-Dimer 3313.42 H Heparin Anti-Xa Level 0.81 H ABG pH POC ABG pCO2 POC ABG pO2 ABG Hemoglobin ABG Oxyhemoglobin ABG Sodium ABG Potassium ABG Chloride ABG Glucose Carboxyhemoglobin Sodium Potassium Chloride Carbon Dioxide BUN Creatinine Glucose POC Glucose 124 H Hemoglobin A1c Lactic Acid 3.00 H* Calcium Phosphorus Magnesium Ferritin AST ALT Lactate Dehydrogenase C-Reactive Protein Total Protein Albumin Arterial Blood Glucose Arterial Blood Ionized Calcium Urine WBC (Auto) U Epithel Cells (Auto) Urine Creatinine Coronavirus (PCR) Crossmatch 11/15/20 11/15/20 11/15/20 08:26 08:26 11:34 WBC RBC Hgb Hct RDW Plt Count Lymph % (Auto) Haakon % (Auto) Lymph # (Auto) Haakon # (Auto) Seg Neutrophils % Seg Neuts % (Manual) Lymphocytes % (Manual) Monocytes % (Manual) Seg Neutrophils # Seg Neutrophils # Man Lymphocytes # (Manual) Monocytes # (Manual) PT INR Fibrinogen D-Dimer Heparin Anti-Xa Level ABG pH POC ABG pCO2 POC ABG pO2 ABG Hemoglobin ABG Oxyhemoglobin ABG Sodium ABG Potassium ABG Chloride ABG Glucose Carboxyhemoglobin Sodium Potassium Chloride Carbon Dioxide BUN Creatinine Glucose POC Glucose 113 H Hemoglobin A1c Lactic Acid 2.60 H* Calcium Phosphorus Magnesium Ferritin 452.8 H AST ALT Lactate Dehydrogenase C-Reactive Protein Total Protein Albumin Arterial Blood Glucose Arterial Blood Ionized Calcium Urine WBC (Auto) U Epithel Cells (Auto) Urine Creatinine Coronavirus (PCR) Crossmatch 11/15/20 11/15/20 11/16/20 16:43 23:16 03:39 WBC RBC Hgb Hct RDW Plt Count Lymph % (Auto) Haakon % (Auto) Lymph # (Auto) Haakon # (Auto) Seg Neutrophils % Seg Neuts % (Manual) Lymphocytes % (Manual) Monocytes % (Manual) Seg Neutrophils # Seg Neutrophils # Man Lymphocytes # (Manual) Monocytes # (Manual) PT INR Fibrinogen D-Dimer Heparin Anti-Xa Level ABG pH 7.261 L POC ABG pCO2 31.2 L POC ABG pO2 117.3 H ABG Hemoglobin ABG Oxyhemoglobin ABG Sodium 135.8 L ABG Potassium ABG Chloride 112.0 H ABG Glucose 148 H Carboxyhemoglobin 0.4 L Sodium Potassium Chloride Carbon Dioxide BUN Creatinine Glucose POC Glucose 107 H 113 H Hemoglobin A1c Lactic Acid Calcium Phosphorus Magnesium Ferritin AST ALT Lactate Dehydrogenase C-Reactive Protein Total Protein Albumin Arterial Blood Glucose 148 H Arterial Blood Ionized Calcium 4.1 L Urine WBC (Auto) U Epithel Cells (Auto) Urine Creatinine Coronavirus (PCR) Crossmatch 11/16/20 11/16/20 11/16/20 04:51 11:28 17:15 WBC RBC Hgb Hct RDW Plt Count Lymph % (Auto) Haakon % (Auto) Lymph # (Auto) Haakon # (Auto) Seg Neutrophils % Seg Neuts % (Manual) Lymphocytes % (Manual) Monocytes % (Manual) Seg Neutrophils # Seg Neutrophils # Man Lymphocytes # (Manual) Monocytes # (Manual) PT INR Fibrinogen D-Dimer Heparin Anti-Xa Level ABG pH POC ABG pCO2 POC ABG pO2 ABG Hemoglobin ABG Oxyhemoglobin ABG Sodium ABG Potassium ABG Chloride ABG Glucose Carboxyhemoglobin Sodium Potassium Chloride Carbon Dioxide BUN Creatinine Glucose POC Glucose 119 H 144 H 139 H Hemoglobin A1c Lactic Acid Calcium Phosphorus Magnesium Ferritin AST ALT Lactate Dehydrogenase C-Reactive Protein Total Protein Albumin Arterial Blood Glucose Arterial Blood Ionized Calcium Urine WBC (Auto) U Epithel Cells (Auto) Urine Creatinine Coronavirus (PCR) Crossmatch 11/16/20 11/16/20 11/16/20 23:50 Unknown Unknown WBC RBC Hgb Hct RDW Plt Count Lymph % (Auto) Haakon % (Auto) Lymph # (Auto) Haakon # (Auto) Seg Neutrophils % Seg Neuts % (Manual) Lymphocytes % (Manual) Monocytes % (Manual) Seg Neutrophils # Seg Neutrophils # Man Lymphocytes # (Manual) Monocytes # (Manual) PT INR Fibrinogen D-Dimer Heparin Anti-Xa Level ABG pH POC ABG pCO2 POC ABG pO2 ABG Hemoglobin ABG Oxyhemoglobin ABG Sodium ABG Potassium ABG Chloride ABG Glucose Carboxyhemoglobin Sodium Potassium 3.5 L Chloride 109.7 H Carbon Dioxide 15 L BUN 65 H Creatinine 2.2 H Glucose 174 H POC Glucose 132 H Hemoglobin A1c Lactic Acid 2.10 H* Calcium 6.1 L D Phosphorus Magnesium Ferritin AST 171 H ALT 268 H Lactate Dehydrogenase C-Reactive Protein Total Protein 4.3 L Albumin 1.9 L Arterial Blood Glucose Arterial Blood Ionized Calcium Urine WBC (Auto) U Epithel Cells (Auto) Urine Creatinine Coronavirus (PCR) Crossmatch 11/17/20 11/17/20 11/17/20 03:14 04:00 05:09 WBC RBC Hgb Hct RDW Plt Count 123 L Lymph % (Auto) Haakon % (Auto) Lymph # (Auto) Haakon # (Auto) Seg Neutrophils % Seg Neuts % (Manual) Lymphocytes % (Manual) Monocytes % (Manual) Seg Neutrophils # Seg Neutrophils # Man Lymphocytes # (Manual) Monocytes # (Manual) PT INR Fibrinogen D-Dimer Heparin Anti-Xa Level ABG pH 7.498 H POC ABG pCO2 27.2 L POC ABG pO2 110.6 H ABG Hemoglobin 11.6 L ABG Oxyhemoglobin ABG Sodium 135.4 L ABG Potassium ABG Chloride ABG Glucose 131 H Carboxyhemoglobin Sodium Potassium Chloride Carbon Dioxide BUN Creatinine Glucose POC Glucose 119 H Hemoglobin A1c Lactic Acid Calcium Phosphorus Magnesium Ferritin AST ALT Lactate Dehydrogenase C-Reactive Protein Total Protein Albumin Arterial Blood Glucose 131 H Arterial Blood Ionized Calcium 3.7 L Urine WBC (Auto) U Epithel Cells (Auto) Urine Creatinine Coronavirus (PCR) Crossmatch 11/17/20 11/17/20 11/17/20 09:59 09:59 09:59 WBC RBC Hgb Hct RDW Plt Count Lymph % (Auto) Haakon % (Auto) Lymph # (Auto) Haakon # (Auto) Seg Neutrophils % Seg Neuts % (Manual) Lymphocytes % (Manual) Monocytes % (Manual) Seg Neutrophils # Seg Neutrophils # Man Lymphocytes # (Manual) Monocytes # (Manual) PT INR Fibrinogen D-Dimer 1401.08 H Heparin Anti-Xa Level ABG pH POC ABG pCO2 POC ABG pO2 ABG Hemoglobin ABG Oxyhemoglobin ABG Sodium ABG Potassium ABG Chloride ABG Glucose Carboxyhemoglobin Sodium Potassium Chloride Carbon Dioxide BUN Creatinine Glucose 127 H POC Glucose Hemoglobin A1c Lactic Acid Calcium Phosphorus Magnesium Ferritin 224.1 H AST ALT Lactate Dehydrogenase 515 H C-Reactive Protein 4.80 H Total Protein Albumin Arterial Blood Glucose Arterial Blood Ionized Calcium Urine WBC (Auto) U Epithel Cells (Auto) Urine Creatinine Coronavirus (PCR) Crossmatch 11/17/20 11/17/20 11/17/20 11:28 16:26 18:00 WBC RBC Hgb Hct RDW Plt Count Lymph % (Auto) [place] % (Auto) Lymph # (Auto) [place] # (Auto) Seg Neutrophils % Seg Neuts % (Manual) Lymphocytes % (Manual) Monocytes % (Manual) Seg Neutrophils # Seg Neutrophils # Man Lymphocytes # (Manual) Monocytes # (Manual) PT INR Fibrinogen D-Dimer Heparin Anti-Xa Level 0.10 L ABG pH POC ABG pCO2 POC ABG pO2 ABG Hemoglobin ABG Oxyhemoglobin ABG Sodium ABG Potassium ABG Chloride ABG Glucose Carboxyhemoglobin Sodium Potassium Chloride Carbon Dioxide BUN Creatinine Glucose POC Glucose 114 H 121 H Hemoglobin A1c Lactic Acid Calcium Phosphorus Magnesium Ferritin AST ALT Lactate Dehydrogenase C-Reactive Protein Total Protein Albumin Arterial Blood Glucose Arterial Blood Ionized Calcium Urine WBC (Auto) U Epithel Cells (Auto) Urine Creatinine Coronavirus (PCR) Crossmatch 11/17/20 11/17/20 11/18/20 21:37 Unknown 02:11 WBC RBC Hgb Hct RDW Plt Count Lymph % (Auto) [place] % (Auto) Lymph # (Auto) [place] # (Auto) Seg Neutrophils % Seg Neuts % (Manual) Lymphocytes % (Manual) Monocytes % (Manual) Seg Neutrophils # Seg Neutrophils # Man Lymphocytes # (Manual) Monocytes # (Manual) PT INR Fibrinogen D-Dimer Heparin Anti-Xa Level ABG pH POC ABG pCO2 POC ABG pO2 ABG Hemoglobin ABG Oxyhemoglobin ABG Sodium ABG Potassium ABG Chloride ABG Glucose Carboxyhemoglobin Sodium 146 H D Potassium 3.5 L Chloride Carbon Dioxide BUN 67 H 62 H Creatinine 1.8 H 1.7 H Glucose 129 H 109 H POC Glucose 118 H Hemoglobin A1c Lactic Acid Calcium 6.5 L 5.7 L* Phosphorus Magnesium 1.20 L Ferritin AST ALT Lactate Dehydrogenase C-Reactive Protein Total Protein Albumin Arterial Blood Glucose Arterial Blood Ionized Calcium Urine WBC (Auto) U Epithel Cells (Auto) Urine Creatinine Coronavirus (PCR) Crossmatch 11/18/20 11/18/20 11/18/20 02:38 04:44 17:09 WBC RBC Hgb Hct RDW Plt Count Lymph % (Auto) [place] % (Auto) Lymph # (Auto) [place] # (Auto) Seg Neutrophils % Seg Neuts % (Manual) Lymphocytes % (Manual) Monocytes % (Manual) Seg Neutrophils # Seg Neutrophils # Man Lymphocytes # (Manual) Monocytes # (Manual) PT INR Fibrinogen D-Dimer Heparin Anti-Xa Level ABG pH 7.565 H POC ABG pCO2 30.4 L POC ABG pO2 72.0 L ABG Hemoglobin 11.4 L ABG Oxyhemoglobin ABG Sodium 134.1 L ABG Potassium 2.9 L ABG Chloride ABG Glucose 110 H Carboxyhemoglobin 0.3 L Sodium Potassium Chloride Carbon Dioxide BUN Creatinine Glucose POC Glucose 109 H 125 H Hemoglobin A1c Lactic Acid Calcium Phosphorus Magnesium Ferritin AST ALT Lactate Dehydrogenase C-Reactive Protein Total Protein Albumin Arterial Blood Glucose 110 H Arterial Blood Ionized Calcium 3.4 L Urine WBC (Auto) U Epithel Cells (Auto) Urine Creatinine Coronavirus (PCR) Crossmatch 11/19/20 11/19/20 11/19/20 03:19 04:00 04:00 WBC 14.3 H RBC 3.61 L Hgb Hct RDW Plt Count Lymph % (Auto) [place] % (Auto) Lymph # (Auto) [place] # (Auto) Seg Neutrophils % Seg Neuts % (Manual) 77.0 H Lymphocytes % (Manual) 13.0 L Monocytes % (Manual) 10.0 H Seg Neutrophils # Seg Neutrophils # Man 11.0 H Lymphocytes # (Manual) Monocytes # (Manual) 1.4 H PT INR Fibrinogen D-Dimer Heparin Anti-Xa Level ABG pH 7.577 H POC ABG pCO2 28.0 L POC ABG pO2 57.4 L ABG Hemoglobin 10.6 L ABG Oxyhemoglobin 90.3 L ABG Sodium ABG Potassium 2.8 L ABG Chloride ABG Glucose 102 H Carboxyhemoglobin 0.3 L Sodium Potassium 2.9 L* D Chloride Carbon Dioxide 31 H BUN 51 H Creatinine Glucose POC Glucose Hemoglobin A1c Lactic Acid Calcium 6.7 L D Phosphorus 1.90 L Magnesium Ferritin AST ALT Lactate Dehydrogenase 634 H C-Reactive Protein 1.40 H Total Protein Albumin Arterial Blood Glucose 102 H Arterial Blood Ionized Calcium 3.7 L Urine WBC (Auto) U Epithel Cells (Auto) Urine Creatinine Coronavirus (PCR) Crossmatch 11/19/20 11/19/20 11/19/20 04:00 10:33 14:10 WBC RBC Hgb 8.9 L Hct 27.0 L RDW Plt Count Lymph % (Auto) [place] % (Auto) Lymph # (Auto) [place] # (Auto) Seg Neutrophils % Seg Neuts % (Manual) Lymphocytes % (Manual) Monocytes % (Manual) Seg Neutrophils # Seg Neutrophils # Man Lymphocytes # (Manual) Monocytes # (Manual) PT INR Fibrinogen D-Dimer 1808.23 H Heparin Anti-Xa Level ABG pH POC ABG pCO2 POC ABG pO2 ABG Hemoglobin ABG Oxyhemoglobin ABG Sodium ABG Potassium ABG Chloride ABG Glucose Carboxyhemoglobin Sodium Potassium Chloride Carbon Dioxide BUN Creatinine Glucose POC Glucose 109 H Hemoglobin A1c Lactic Acid Calcium Phosphorus Magnesium Ferritin AST ALT Lactate Dehydrogenase C-Reactive Protein Total Protein Albumin Arterial Blood Glucose Arterial Blood Ionized Calcium Urine WBC (Auto) U Epithel Cells (Auto) Urine Creatinine Coronavirus (PCR) Crossmatch 11/19/20 11/19/20 11/19/20 17:28 19:45 19:45 WBC 22.7 H RBC 3.14 L Hgb 9.0 L Hct 27.2 L RDW Plt Count Lymph % (Auto) [place] % (Auto) Lymph # (Auto) [place] # (Auto) Seg Neutrophils % Seg Neuts % (Manual) Lymphocytes % (Manual) Monocytes % (Manual) Seg Neutrophils # Seg Neutrophils # Man Lymphocytes # (Manual) Monocytes # (Manual) PT 24.6 H INR 2.18 H Fibrinogen D-Dimer Heparin Anti-Xa Level ABG pH POC ABG pCO2 POC ABG pO2 ABG Hemoglobin ABG Oxyhemoglobin ABG Sodium ABG Potassium ABG Chloride ABG Glucose Carboxyhemoglobin Sodium Potassium Chloride Carbon Dioxide BUN Creatinine Glucose POC Glucose 186 H Hemoglobin A1c Lactic Acid Calcium Phosphorus Magnesium Ferritin AST ALT Lactate Dehydrogenase C-Reactive Protein Total Protein Albumin Arterial Blood Glucose Arterial Blood Ionized Calcium Urine WBC (Auto) U Epithel Cells (Auto) Urine Creatinine Coronavirus (PCR) Crossmatch 11/19/20 11/19/20 11/19/20 19:45 19:45 19:45 WBC RBC Hgb Hct RDW Plt Count Lymph % (Auto) [place] % (Auto) Lymph # (Auto) [place] # (Auto) Seg Neutrophils % Seg Neuts % (Manual) Lymphocytes % (Manual) Monocytes % (Manual) Seg Neutrophils # Seg Neutrophils # Man Lymphocytes # (Manual) Monocytes # (Manual) PT INR Fibrinogen D-Dimer Heparin Anti-Xa Level ABG pH POC ABG pCO2 POC ABG pO2 ABG Hemoglobin ABG Oxyhemoglobin ABG Sodium ABG Potassium ABG Chloride ABG Glucose Carboxyhemoglobin Sodium Potassium Chloride Carbon Dioxide BUN 58 H Creatinine Glucose 192 H POC Glucose Hemoglobin A1c Lactic Acid 2.20 H* Calcium 6.9 L Phosphorus Magnesium Ferritin AST 119 H ALT 143 H Lactate Dehydrogenase C-Reactive Protein Total Protein 4.0 L Albumin 2.3 L Arterial Blood Glucose Arterial Blood Ionized Calcium Urine WBC (Auto) U Epithel Cells (Auto) Urine Creatinine Coronavirus (PCR) Crossmatch See Detail 11/19/20 11/19/20 11/19/20 22:00 23:25 23:45 WBC RBC Hgb Hct RDW Plt Count Lymph % (Auto) [place] % (Auto) Lymph # (Auto) [place] # (Auto) Seg Neutrophils % Seg Neuts % (Manual) Lymphocytes % (Manual) Monocytes % (Manual) Seg Neutrophils # Seg Neutrophils # Man Lymphocytes # (Manual) Monocytes # (Manual) PT INR Fibrinogen D-Dimer Heparin Anti-Xa Level > 2.00 H ABG pH POC ABG pCO2 POC ABG pO2 ABG Hemoglobin ABG Oxyhemoglobin ABG Sodium ABG Potassium ABG Chloride ABG Glucose Carboxyhemoglobin Sodium Potassium Chloride Carbon Dioxide BUN Creatinine Glucose POC Glucose 155 H Hemoglobin A1c Lactic Acid Calcium Phosphorus Magnesium Ferritin AST ALT Lactate Dehydrogenase C-Reactive Protein Total Protein Albumin Arterial Blood Glucose Arterial Blood Ionized Calcium Urine WBC (Auto) > 182.0 H U Epithel Cells (Auto) Urine Creatinine Coronavirus (PCR) Crossmatch 11/20/20 11/20/20 11/20/20 04:00 04:09 04:09 WBC 20.9 H RBC 3.48 L Hgb 10.0 L Hct 30.1 L RDW Plt Count Lymph % (Auto) [place] % (Auto) Lymph # (Auto) [place] # (Auto) Seg Neutrophils % Seg Neuts % (Manual) 77.0 H Lymphocytes % (Manual) 3.0 L Monocytes % (Manual) Seg Neutrophils # Seg Neutrophils # Man 16.1 H Lymphocytes # (Manual) 0.6 L Monocytes # (Manual) PT INR Fibrinogen D-Dimer Heparin Anti-Xa Level ABG pH 7.595 H POC ABG pCO2 25.2 L POC ABG pO2 69.0 L ABG Hemoglobin 9.8 L ABG Oxyhemoglobin ABG Sodium ABG Potassium ABG Chloride 110.0 H ABG Glucose 178 H Carboxyhemoglobin 0.2 L Sodium 147 H Potassium Chloride 107.8 H Carbon Dioxide BUN 63 H Creatinine 1.3 H Glucose 151 H POC Glucose Hemoglobin A1c Lactic Acid Calcium 6.3 L Phosphorus Magnesium Ferritin AST ALT Lactate Dehydrogenase C-Reactive Protein Total Protein Albumin Arterial Blood Glucose 178 H Arterial Blood Ionized Calcium 3.7 L Urine WBC (Auto) U Epithel Cells (Auto) Urine Creatinine Coronavirus (PCR) Crossmatch 11/20/20 11/20/20 11/20/20 05:13 09:57 09:57 WBC RBC Hgb 9.4 L Hct 28.5 L RDW Plt Count Lymph % (Auto) [place] % (Auto) Lymph # (Auto) [place] # (Auto) Seg Neutrophils % Seg Neuts % (Manual) Lymphocytes % (Manual) Monocytes % (Manual) Seg Neutrophils # Seg Neutrophils # Man Lymphocytes # (Manual) Monocytes # (Manual) PT INR Fibrinogen D-Dimer Heparin Anti-Xa Level ABG pH POC ABG pCO2 POC ABG pO2 ABG Hemoglobin ABG Oxyhemoglobin ABG Sodium ABG Potassium ABG Chloride ABG Glucose Carboxyhemoglobin Sodium Potassium Chloride Carbon Dioxide BUN Creatinine Glucose POC Glucose 126 H Hemoglobin A1c Lactic Acid Calcium Phosphorus 5.40 H D Magnesium Ferritin AST ALT Lactate Dehydrogenase C-Reactive Protein Total Protein Albumin Arterial Blood Glucose Arterial Blood Ionized Calcium Urine WBC (Auto) U Epithel Cells (Auto) Urine Creatinine Coronavirus (PCR) Crossmatch 11/20/20 11/20/20 11/20/20 12:07 17:52 20:48 WBC RBC Hgb Hct RDW Plt Count Lymph % (Auto) [place] % (Auto) Lymph # (Auto) [place] # (Auto) Seg Neutrophils % Seg Neuts % (Manual) Lymphocytes % (Manual) Monocytes % (Manual) Seg Neutrophils # Seg Neutrophils # Man Lymphocytes # (Manual) Monocytes # (Manual) PT INR Fibrinogen D-Dimer Heparin Anti-Xa Level ABG pH 7.468 H POC ABG pCO2 25.5 L POC ABG pO2 ABG Hemoglobin 7.6 L ABG Oxyhemoglobin ABG Sodium ABG Potassium ABG Chloride 111.0 H ABG Glucose 190 H Carboxyhemoglobin Sodium Potassium Chloride Carbon Dioxide BUN Creatinine Glucose POC Glucose 121 H 154 H Hemoglobin A1c Lactic Acid Calcium Phosphorus Magnesium Ferritin AST ALT Lactate Dehydrogenase C-Reactive Protein Total Protein Albumin Arterial Blood Glucose 190 H Arterial Blood Ionized Calcium 3.8 L Urine WBC (Auto) U Epithel Cells (Auto) Urine Creatinine Coronavirus (PCR) Crossmatch 11/20/20 11/21/20 11/21/20 23:01 00:27 00:27 WBC RBC Hgb 7.0 L Hct 21.9 L D RDW Plt Count Lymph % (Auto) [place] % (Auto) Lymph # (Auto) [place] # (Auto) Seg Neutrophils % Seg Neuts % (Manual) Lymphocytes % (Manual) Monocytes % (Manual) Seg Neutrophils # Seg Neutrophils # Man Lymphocytes # (Manual) Monocytes # (Manual) PT INR Fibrinogen D-Dimer Heparin Anti-Xa Level 1.46 H ABG pH POC ABG pCO2 POC ABG pO2 ABG Hemoglobin ABG Oxyhemoglobin ABG Sodium ABG Potassium ABG Chloride ABG Glucose Carboxyhemoglobin Sodium Potassium Chloride Carbon Dioxide BUN Creatinine Glucose POC Glucose 144 H Hemoglobin A1c Lactic Acid Calcium Phosphorus Magnesium Ferritin AST ALT Lactate Dehydrogenase C-Reactive Protein Total Protein Albumin Arterial Blood Glucose Arterial Blood Ionized Calcium Urine WBC (Auto) U Epithel Cells (Auto) Urine Creatinine Coronavirus (PCR) Crossmatch 11/21/20 11/21/20 11/21/20 09:53 09:53 11:12 WBC RBC Hgb 6.1 L Hct 20.2 L RDW Plt Count Lymph % (Auto) [place] % (Auto) Lymph # (Auto) [place] # (Auto) Seg Neutrophils % Seg Neuts % (Manual) Lymphocytes % (Manual) Monocytes % (Manual) Seg Neutrophils # Seg Neutrophils # Man Lymphocytes # (Manual) Monocytes # (Manual) PT INR Fibrinogen 208 L D-Dimer Heparin Anti-Xa Level 1.24 H ABG pH POC ABG pCO2 POC ABG pO2 ABG Hemoglobin ABG Oxyhemoglobin ABG Sodium ABG Potassium ABG Chloride ABG Glucose Carboxyhemoglobin Sodium 146 H Potassium 5.7 H D Chloride 107.6 H Carbon Dioxide 10 L D BUN 83 H Creatinine 1.9 H Glucose 158 H POC Glucose Hemoglobin A1c Lactic Acid Calcium 6.1 L Phosphorus Magnesium Ferritin AST ALT Lactate Dehydrogenase 1131 H C-Reactive Protein 2.00 H Total Protein Albumin Arterial Blood Glucose Arterial Blood Ionized Calcium Urine WBC (Auto) U Epithel Cells (Auto) Urine Creatinine Coronavirus (PCR) Crossmatch 11/21/20 11/21/20 11/21/20 11:21 11:28 11:39 WBC RBC Hgb Hct RDW Plt Count Lymph % (Auto) [place] % (Auto) Lymph # (Auto) [place] # (Auto) Seg Neutrophils % Seg Neuts % (Manual) Lymphocytes % (Manual) Monocytes % (Manual) Seg Neutrophils # Seg Neutrophils # Man Lymphocytes # (Manual) Monocytes # (Manual) PT INR Fibrinogen D-Dimer Heparin Anti-Xa Level ABG pH 7.056 L POC ABG pCO2 POC ABG pO2 ABG Hemoglobin 4.4 L ABG Oxyhemoglobin 89.8 L ABG Sodium ABG Potassium ABG Chloride 111.0 H ABG Glucose 573 H Carboxyhemoglobin Sodium Potassium Chloride Carbon Dioxide BUN Creatinine Glucose POC Glucose 49 L 43 L Hemoglobin A1c Lactic Acid Calcium Phosphorus Magnesium Ferritin AST ALT Lactate Dehydrogenase C-Reactive Protein Total Protein Albumin Arterial Blood Glucose 573 H Arterial Blood Ionized Calcium Urine WBC (Auto) U Epithel Cells (Auto) Urine Creatinine Coronavirus (PCR) Crossmatch Chest x-ray: image reviewed (clear lung chavez) Allied health notes reviewed: nursing
--- NOTE | 2020-11-21 12:42 | Progress Note ---
Assessment and Plan Assessment and plan: This is an 85-year-old female admitted with acute hypoxic respiratory failure, COVID-19 pneumonia and septic shock Neuro: Acute metabolic encephalopathy, H/O lumbar compression fracture -multifactorial -Patient has no sedation -Supportive care Cardio: s/p VF cardiac arrest, Hypotension, inadvertent placement of carotid artery central venous line -Vasopressor support with norepi, phenylepi, vasopressin, and epi -Blood pressure monitoring via femoral kyle -Vascular surgery/interventional radiology consulted, appreciate recommendations -Patient was on a Heparin drip to prevent thrombus but this was discontinued today d/t bleeding/cougulopahty -Do not use carotid CVL -see code sheet from 11/21 for details Respiratory: Acute hypoxemic respiratory failure -CCM consulted, appreciate recommendations -Intubated 11/13/2020 -11/21 ABG and CXR reviewed -AM vent settings: 8.00 ETT at 20 lips; AC, rate of 12, PEEP 10, FiO2 50% -Post arrest vent settings: AC R 10, PEEP 10, TV 400, FiO2 60% -2 additional amps bicarb given -VAP bundle -Daily SBT/SAT when appropriate -Serial ABGs, CXR -Wean mechanical ventilation when appropriate GI: Acute Blood loss anemia, GI bleed, Bleeding Gastric ulcer, transaminitis, Severe protein malnutrition -GI consulted, appreciate recommendations -Ntr consulted, appreciate recommendations: On tube feedings -11/11 abdomen/pelvis CT, see report for findings -Protonix gtt -FMS in place-> Occult Positive -Serial H&H -11/20 s/p 2 units PRBC -11/20: EGD shows bleeding gastric ulcer which was banded -NPO per GI recs -Additional 4 units PRBC today and FFPx1 pending -Trend CBC and LFTs : Acute kidney injury, left ureteral stone, Hyperkalemia, metabolic alkalos is,hypocalcemia -Nephrology, urology consulted, appreciate recommendations -Strict intake and output -Daily weights -Avoid nephrotoxic medications -Renally dose medications -S/p bilateral stent -IV calcium with PO supplements -D5 with NaHCO3 gtt -hyperK treated with D50/Insulin/Ca Gluconate 2 -given multiple amps of sodium bicarb ID: Septic shock, COVID-19 pneumonia, UTI -MRSA 11/13 sputum culture -Infectious disease consulted, appreciate recommendations -ID restarted abx : vancomycin and cefepime given new fevers and worsening white count on 11/20 -11/14 blood cultures x2 no growth to date -COVID-19 PCR + on 11/11 -Patient not a candidate for remdesivir due to renal failure -S/p Actemra -Dexamethasone for 10 days -Zinc/vitamin C -Trend COVID-19 inflammatory markers -Droplet/isolation precautions Endo: DM II -SSI -Hemoglobin A1c 6.6 -Accu-Cheks every 2 hours -Avoid hypoglycemia -hypoglycemia treated with D50 -Protonix gtt Heme: Acute GI bleed, elevated D-dimer, Leukocytosis, Supratheraputic INR -SCDs to bilateral lower extremities while in bed -s/p 2 units prbc, 4 additional units ordered for today -1 unit FFP to be transfused -H/H every 6 -Transfuse for hemoglobin less than 7 -Systemic anticoagulation with heparin to prevent thrombus->STOPPED d/t active bleeding with need for prbc -Trend CBC, coags The high probability of a clinically significant, sudden or life threatening deterioration of the [multi] system(s) required my full and direct attention, intervention and personal management. The aggregate critical care time was [120] minutes. This time is in addition to time spent performing reported procedures but includes the following: [x] Data Review and interpretation [x] Patient assessment and monitoring of vital signs [x] Documentation [x] Medication orders and management Disposition Plan: tbd Total Time Spent with Patient (Minutes): 120 History Interval history: This is a 85-year-old female with obesity, chronic low back pain, chronic UTI, muscle spasm, and depression who presents to the emergency department on 11/11 with complaints of nausea/vomiting and decreased p.o. intake for 1 week and complains of mild diarrhea. Patient is bedridden and nonambulatory and oriented to self. Her patient's daughter EMS was called to assess and they gave the pa tient IV fluids but did not transfer the patient. On 11/11 EMS was contacted again and due to persistent vomiting and apparent small amount of blood in vomit patient was transferred to [facility] for further evaluation and treatment. Upon presentation to the emergency department patient was hypoxic on room air with SPO2 of 88 to 90% and continue to have emesis. Work-up in the emergency department revealed leukocytosis, thrombocytosis, acute hypoxic respiratory failure, SIRS. Patient was admitted as a COVID-19 PUI with acute hypoxic respiratory failure. 11/12/2020 Patient doing well, Discussed with daughter at length about her prognosis and treatment, No nausea vomiting since morning Coronavirus PCR came positive 11/13/2020 Patient coded last night and was intubated, ROSC. Patient on vent, Administrative Office Assistant consult and ID consult 11/14/2020 Patient intubated, Weaning in progress 11/15/2020; patient remains intubated, on vasopressors for septic shock. Critically ill, poor prognosis, discussed with daughter Kirstin who understands the severity of illness, she wants to talk to the family. If the family agrees she is considering DNR/withdrawal of care, I informed patient's nurse 11/16/2020; Patient remains intubated, on Levophed, Severe sepsis due to COVID-19 pneumonia, critically ill, on heparin drip 11/17/2020; Patient remains critically ill. Septic shock on norepinephrine. Intubated on vent, Very poor prognosis Family unable to decide the goals of treatment CODE STATUS; Recommend palliative care/hospice 11/18: PICC team consulted for placement of PICC, patient noted to have minimal output from NG tube and tube feeding will be restarted, patient will be left with Reglan. CCM decrease PEEP. Hypocalcemia and hypomagnesemia repleted. 11/19: Patient's H/H is trending down, having dark stools via FMS and GI was consulted today. Placed on PPI and NG tube to low normal suction, start stool guaiac positive. Per CCM discontinue Lind catheter. Patient will now be on every 6 H&H and will to be transfused with 2 units PRBC. Long family meeting conducted today with hospitalist, CCM and administration. 11/20: GI at bedside to perform endoscopy, patient's blood pressure has been labile today and RN has been going up and down on vasopressors. Patient is still having melena and received 1 unit PRBC yesterday evening. 11/21: Patient midnight h/h noted to be 10/30 this morning from 12/31 prior and two units prbc were ordered. Repeat hbg 6.05/01. Patient had a cardiac arrest today (see event note/code sheet for details). Received 2 additional prbc and 1 ffp. Coags pending. Family updated and code status changed. Hospitalist Physical - Constitutional Vitals: Temp Pulse Resp BP Pulse Ox 94.5 F L 127 H 120 H 108/58 98 11/21/20 12:15 11/21/20 11:41 11/21/20 11:41 11/21/20 11:41 11/21/20 11:41 General appearance: Present: other (Intubated, not interactive) - EENT ENT: poor dentition - Respiratory Respiratory effort: normal, other Respiratory: bilateral: diminished - Cardiovascular Rhythm: regular Heart Sounds: Present: S1 & S2 - Extremities Extremities: abnormal Extremity abnormal: edema, cyanosis, cold Peripheral Pulses: within normal limits - Abdominal General gastrointestinal: soft - Integumentary Integumentary: Present: dry, erythema, clammy, pale - Psychiatric Psychiatric: other (not interactive) - Neurologic Neurologic: other (not interactive, (+) cough/gag, does not track/focus, no response to painful stimuli) - Allied Health Allied health notes reviewed: nursing, RT, social work, case management HEART Score - HEART Score Age: > 65 Risk factors: 1-2 risk factors Troponin: Troponin T < 0.010 ng/mL (0.00-0.029) 11/11/20 13:39 - Critical Actions Critical Actions: 0-3 pts:0.9-1.7%risk of adverse cardiac event.Candidate for discharge Results - Labs CBC & Chem 7: 11/21/20 09:53 11/21/20 09:53 Labs: Laboratory Last Values WBC 20.9 K/mm3 (4.5-11.0) H 11/20/20 04:09 RBC 3.48 M/mm3 (3.65-5.03) L 11/20/20 04:09 Hgb 6.1 gm/dl (10.1-14.3) L 11/21/20 09:53 Hct 20.2 % (30.3-42.9) L 11/21/20 09:53 MCV 87 fl (79-97) 11/20/20 04:09 MCH 29 pg (28-32) 11/20/20 04:09 MCHC 33 % (30-34) 11/20/20 04:09 RDW 14.5 % (13.2-15.2) 11/20/20 04:09 Plt Count 193 K/mm3 (140-440) 11/21/20 09:53 Lymph % (Auto) 5.7 % (13.4-35.0) L 11/13/20 05:23 [place] % (Auto) 9.0 % (0.0-7.3) H 11/13/20 05:23 Eos % (Auto) 0.0 % (0.0-4.3) 11/13/20 05:23 Baso % (Auto) 0.0 % (0.0-1.8) 11/13/20 05:23 Lymph # (Auto) 0.9 K/mm3 (1.2-5.4) L 11/13/20 05:23 [place] # (Auto) 1.4 K/mm3 (0.0-0.8) H 11/13/20 05:23 Eos # (Auto) 0.0 K/mm3 (0.0-0.4) 11/13/20 05:23 Baso # (Auto) 0.0 K/mm3 (0.0-0.1) 11/13/20 05:23 Add Manual Diff Complete 11/20/20 04:09 Total Counted 100 11/20/20 04:09 Seg Neutrophils % 85.3 % (40.0-70.0) H 11/13/20 05:23 Seg Neuts % (Manual) 77.0 % (40.0-70.0) H 11/20/20 04:09 Band Neutrophils % 13.0 % 11/20/20 04:09 Lymphocytes % (Manual) 3.0 % (13.4-35.0) L 11/20/20 04:09 Monocytes % (Manual) 3.0 % (0.0-7.3) 11/20/20 04:09 Metamyelocytes % 4.0 % 11/20/20 04:09 Nucleated RBC % Not Reportable 11/20/20 04:09 Seg Neutrophils # 13.6 K/mm3 (1.8-7.7) H 11/13/20 05:23 Seg Neutrophils # Man 16.1 K/mm3 (1.8-7.7) H 11/20/20 04:09 Band Neutrophils # 2.7 K/mm3 11/20/20 04:09 Lymphocytes # (Manual) 0.6 K/mm3 (1.2-5.4) L 11/20/20 04:09 Abs React Lymphs (Man) 0.0 K/mm3 11/20/20 04:09 Monocytes # (Manual) 0.6 K/mm3 (0.0-0.8) 11/20/20 04:09 Eosinophils # (Manual) 0.0 K/mm3 (0.0-0.4) 11/20/20 04:09 Basophils # (Manual) 0.0 K/mm3 (0.0-0.1) 11/20/20 04:09 Metamyelocytes # 0.8 K/mm3 11/20/20 04:09 Myelocytes # 0.0 K/mm3 11/20/20 04:09 Promyelocytes # 0.0 K/mm3 11/20/20 04:09 Blast Cells # 0.0 K/mm3 11/20/20 04:09 WBC Morphology Not Reportable 11/20/20 04:09 Hypersegmented Neuts Not Reportable 11/20/20 04:09 Hyposegmented Neuts Not Reportable 11/20/20 04:09 Hypogranular Neuts Not Reportable 11/20/20 04:09 Smudge Cells Not Reportable 11/20/20 04:09 Toxic Granulation Not Reportable 11/20/20 04:09 Toxic Vacuolation Not Reportable 11/20/20 04:09 Dohle Bodies Not Reportable 11/20/20 04:09 Pelger-Huet Anomaly Not Reportable 11/20/20 04:09 Vernell Rods Not Reportable 11/20/20 04:09 Platelet Estimate Consistent w auto 11/20/20 04:09 Clumped Platelets Not Reportable 11/20/20 04:09 Plt Clumps, EDTA Not Reportable 11/20/20 04:09 Large Platelets Not Reportable 11/20/20 04:09 Giant Platelets Not Reportable 11/20/20 04:09 Platelet Satelliting Not Reportable 11/20/20 04:09 Plt Morphology Comment Not Reportable 11/20/20 04:09 RBC Morphology Not Reportable 11/20/20 04:09 Dimorphic RBCs Not Reportable 11/20/20 04:09 Polychromasia Few 11/20/20 04:09 Hypochromasia Few 11/20/20 04:09 Poikilocytosis Not Reportable 11/20/20 04:09 Anisocytosis Not Reportable 11/20/20 04:09 Microcytosis Not Reportable 11/20/20 04:09 Macrocytosis Not Reportable 11/20/20 04:09 Spherocytes Not Reportable 11/20/20 04:09 Pappenheimer Bodies Not Reportable 11/20/20 04:09 Sickle Cells Not Reportable 11/20/20 04:09 Target Cells Not Reportable 11/20/20 04:09 Tear Drop Cells Not Reportable 11/20/20 04:09 Ovalocytes Not Reportable 11/20/20 04:09 Helmet Cells Not Reportable 11/20/20 04:09 [place] Bodies Not Reportable 11/20/20 04:09 [place] Rings Not Reportable 11/20/20 04:09 [place] Cells Not Reportable 11/20/20 04:09 Bite Cells Not Reportable 11/20/20 04:09 Crenated Cell Not Reportable 11/20/20 04:09 Elliptocytes Not Reportable 11/20/20 04:09 Acanthocytes (Spur) Not Reportable 11/20/20 04:09 Rouleaux Not Reportable 11/20/20 04:09 Hemoglobin C Crystals Not Reportable 11/20/20 04:09 Schistocytes Not Reportable 11/20/20 04:09 Malaria parasites Not Reportable 11/20/20 04:09 Mauro Bodies Not Reportable 11/20/20 04:09 Hem Pathologist Commnt No 11/20/20 04:09 PT 24.6 Sec. (12.2-14.9) H 11/19/20 19:45 INR 2.18 (0.87-1.13) H 11/19/20 19:45 APTT 24.2 Sec. (24.2-36.6) 11/13/20 09:51 D-Dimer 1808.23 ng/mlDDU (0-234) H 11/19/20 04:00 Heparin Anti-Xa Level U.I./ml (0.3-0.7) 11/21/20 09:53 ABG pH 7.056 (7.320-7.450) L 11/21/20 11:21 POC ABG pCO2 44.0 mmHg (32.0-48.0) 11/21/20 11:21 POC ABG pO2 87.3 mmHg (83-108) 11/21/20 11:21 POC ABG HCO3 12.1 11/21/20 11:21 ABG O2 Saturation 91.4 (0-100) 11/21/20 11:21 POC ABG Base Excess -16.5 11/21/20 11:21 ABG Hemoglobin 4.4 (12.0-17.5) L 11/21/20 11:21 ABG Oxyhemoglobin 89.8 (94-98) L 11/21/20 11:21 ABG Methemoglobin 0.3 (0.0-1.5) 11/21/20 11:21 ABG Sodium 138.0 mmol/L (136.0-145.0) 11/21/20 11: ABG Potassium 4.2 mmol/L (3.40-4.50) 11/21/20 11:21 ABG Chloride 111.0 mmol/L (98-107) H 11/21/20 11:21 ABG Glucose 573 mg/dL (65-95) H 11/21/20 11:21 Carboxyhemoglobin 1.4 (0.5-1.5) 11/21/20 11:21 FiO2 % 100.0 11/21/20 11:21 Sodium 146 mmol/L (137-145) H 11/21/20 09:53 Potassium 5.7 mmol/L (3.6-5.0) H D 11/21/20 09:53 Chloride 107.6 mmol/L (98-107) H 11/21/20 09:53 Carbon Dioxide 10 mmol/L (22-30) L D 11/21/20 09:53 Anion Gap 34 mmol/L 11/21/20 09:53 BUN 83 mg/dL (7-17) H 11/21/20 09:53 Creatinine 1.9 mg/dL (0.6-1.2) H 11/21/20 09:53 Estimated GFR 25 ml/min 11/21/20 09:53 BUN/Creatinine Ratio 44 % 11/21/20 09:53 Glucose 158 mg/dL (65-100) H 11/21/20 09:53 POC Glucose 43 mg/dL (70-105) L 11/21/20 11:39 Hemoglobin A1c 6.6 % (4-6) H 11/12/20 05:07 Lactic Acid 2.20 mmol/L (0.7-2.0) H* 11/19/20 19:45 Calcium 6.1 mg/dL (8.4-10.2) L 11/21/20 09:53 Phosphorus 5.40 mg/dL (2.5-4.5) H D 11/20/20 09:57 Magnesium 1.80 mg/dL (1.7-2.3) 11/19/20 04:00 Ferritin 224.1 ng/mL (10.0-200.0) H 11/17/20 09:59 Total Bilirubin 0.50 mg/dL (0.1-1.2) 11/19/20 19:45 AST 119 units/L (5-40) H 11/19/20 19:45 ALT 143 units/L (7-56) H 11/19/20 19:45 Alkaline Phosphatase 91 units/L (35-129) 11/19/20 19:45 Lactate Dehydrogenase 1131 units/L (91-180) H 11/21/20 09:53 Troponin T < 0.010 ng/mL (0.00-0.029) 11/11/20 13:39 C-Reactive Protein 2.00 mg/dL (0.00-1.30) H 11/21/20 09:53 Total Protein 4.0 g/dL (6.3-8.2) L 11/19/20 19:45 Albumin 2.3 g/dL (3.9-5) L 11/19/20 19:45 Albumin/Globulin Ratio 1.4 % 11/19/20 19:45 Lipase 55 units/L (13-60) 11/11/20 13:39 Procalcitonin < 0.05 ng/mL (<0.15) 11/11/20 16:59 Arterial Blood Glucose 573 mg/dL (65-95) H 11/21/20 11:21 Arterial Blood Ionized Calcium 4.9 mg/dL (4.6-5.3) 11/21/20 11:21 Urine Color Janay (Yellow) 11/19/20 23:45 Urine Turbidity Cloudy (Clear) 11/19/20 23:45 Urine pH 5.0 (5.0-7.0) 11/19/20 23:45 Ur Specific Bolt 1.015 (1.003-1.030) 11/19/20 23:45 Urine Protein 100 mg/dl mg/dL (Negative) 11/19/20 23:45 Urine Glucose (UA) Neg mg/dL (Negative) 11/19/20 23:45 Urine Ketones Neg mg/dL (Negative) 11/19/20 23:45 Urine Blood Lg (Negative) 11/19/20 23:45 Urine Nitrite Neg (Negative) 11/19/20 23:45 Ur Reducing Substances TNR 11/14/20 06:15 Urine Bilirubin Neg (Negative) 11/19/20 23:45 Urine Ictotest TNR 11/14/20 06:15 Urine Urobilinogen < 2.0 mg/dL (<2.0) 11/19/20 23:45 Ur Leukocyte Esterase Mod (Negative) 11/19/20 23:45 Urine WBC (Auto) > 182.0 /HPF (0.0-6.0) H 11/19/20 23:45 Urine RBC (Auto) > 182.0 /HPF (0.0-6.0) 11/19/20 23:45 U Epithel Cells (Auto) 3.0 /HPF (0-13.0) 11/19/20 23:45 Urine Bacteria (Auto) 4+ /HPF (Negative) 11/19/20 23:45 Urine WBC Clumps 3+ /HPF 11/14/20 06:15 Ur Transition Epith Cell 4 /HPF 11/19/20 23:45 Urine Mucus Few /HPF 11/19/20 23:45 Ur Yeast w Hyphae 2+ /HPF 11/19/20 23:45 Urine Yeast (Budding) 3+ /HPF 11/19/20 23:45 Urine Creatinine 80.2 mg/dL (0.1-20.0) H 11/14/20 06:15 Urine Sodium 28 mmol/L 11/14/20 06:15 Coronavirus (PCR) Positive (Negative) A 11/11/20 Unknown Blood Type A POSITIVE 11/19/20 19:45 Antibody Screen Negative 11/19/20 19:45 Crossmatch See Detail 11/19/20 19:45 Lind/IV: Voiding Method External Female Catheter Active Medications - Current Medications Current Medications: Generic Name Dose Route Start Last Admin Trade Name Freq PRN Reason Stop Dose Admin Acetaminophen 650 mg 11/11/20 22:11 11/19/20 11:30 Acetaminophen 325 Mg Tab PO 650 mg Q4H PRN Administration Pain MILD(1-3)/Fever >100.5/ERAZO Albuterol 2.5 mg 11/13/20 07:40 Albuterol 2.5 Mg/3 Ml Nebu IH Q4HRT PRN Shortness Of Breath Lipase/Protease/Amylase 1 each 11/13/20 17:32 Lipase 10,500/Protease 25,000/Amylase 43,750 (Units) Dr Weiss FEEDTUBE PRN PRN For Clogged Feeding Tube Ascorbic Acid 500 mg 11/13/20 22:00 11/21/20 09:42 Ascorbic Acid 500 Mg Tab PO Not Given BID CARLOS Baclofen 10 mg 11/11/20 22:09 Baclofen 10 Mg Tab PO TID PRN MUSCLE SPASMS & PAIN Calcium Carbonate/Glycine 1,250 mg 11/19/20 10:00 11/21/20 09:43 Calcium Carbonate 1250 Mg/5 Ml Oral Liqd FEEDTUBE 11/21/20 23:59 Not Given QDAY CARLOS Dexamethasone 6 mg 11/13/20 10:00 11/21/20 09:44 Dexamethasone 4 Mg/Ml Vial IV 11/22/20 10:01 6 mg Q24HR CARLOS Administration Dextrose 50 ml 11/13/20 16:43 11/14/20 01:12 Dextrose 50% In Water (25gm) 50 Ml Syringe IV 50 ml Q30MIN PRN Administration Hypoglycemia Protocol Fentanyl 50 mcg 11/13/20 05:33 Fentanyl 100 Mcg/2 Ml Inj IV Q10MIN PRN ANALGESIA Heparin Sodium (Porcine) 3,000 unit 11/13/20 05:04 Heparin 10,000 Units/10 Ml Vial 40 unit/kg (3000 unit) IV Q6H PRN Anti-Xa Assay < 0.1 units/ml Hydrophilic Ointment 1 applic 11/13/20 05:33 Lip Therapy Vaseline TP Q2HR PRN Dry Lips Heparin Sodium/Sodium Chloride 25,000 unit in 500 mls @ 23 mls/hr 11/13/20 06:00 11/21/20 11:08 Heparin/ 0.45% Nacl-25,000 Unit/500 Ml IV 0 units/hr TITR CARLOS 0 mls/hr Titration Protocol 1,150 UNITS/HR Fentanyl Citrate 2,000 mcg in 100 mls @ 3.81 mls/hr 11/13/20 06:00 11/20/20 14:51 Fentanyl Drip Premix IV 1 mcg/kg/hr TITR CARLOS 3.81 mls/hr Administration Protocol 1 MCG/KG/HR NORepinephrine/NS 8 MG-250 ML 8 mg in 250 mls @ 3.75 mls/hr 11/13/20 15:00 11/21/20 09:35 Norepinephrine/Ns 8 Mg-250 Ml (Double Conc) IV 30 mcg/min TITRATE CARLOS 56.25 mls/hr Titration Protocol 2 MCG/MIN Vasopressin 20 unit/ Sodium 101 mls @ 9.09 mls/hr 11/19/20 09:00 11/21/20 08:55 Chloride IV 0.03 units/min TITR CARLOS 9.09 mls/hr Administration Protocol 0.03 UNITS/MIN Pantoprazole Sodium 80 mg/ 100 mls @ 10 mls/hr 11/19/20 15:00 11/21/20 03:10 Sodium Chloride IV 11/22/20 14:59 8 mg/hr DIRECT CARLOS 10 mls/hr Administration 8 MG/HR Cefepime HCl 2 gm in 100 mls @ 200 mls/hr 11/20/20 14:00 11/21/20 01:51 Cefepime/Ns 2 Gm/100 Ml IV 200 mls/hr Q12H CARLOS Administration Protocol Vancomycin HCl 1,500 mg/ 530 mls @ 333.333 mls/hr 11/20/20 15:00 11/20/20 15:06 Sodium Chloride IV 333.333 mls/hr Q24H CARLOS Administration Sodium Chloride 500 mls @ 0 mls/hr 11/21/20 08:03 Nacl 0.9% 500 Ml IV 11/21/20 23:59 ONCE NR As Directed Phenylephrine HCl 100 mg/ 100 mls @ 3 mls/hr 11/21/20 08:15 11/21/20 10:07 Sodium Chloride IV 50 mcg/min TITR CARLOS 3 mls/hr Administration Protocol 50 MCG/MIN Sodium Chloride 500 mls @ 0 mls/hr 11/21/20 08:52 Nacl 0.9% 500 Ml IV 11/21/20 23:59 ONCE NR As Directed Epinephrine 16 mg/ Sodium 250 mls @ 1.875 mls/hr 11/21/20 11:00 Chloride IV TITR CARLOS Protocol 2 MCG/MIN Sodium Bicarbonate 150 meq/ 1,150 mls @ 150 mls/hr 11/21/20 13:00 Dextrose IV DIRECT CARLOS Sodium Chloride 500 mls @ 0 mls/hr 11/21/20 12:23 Nacl 0.9% 500 Ml IV ONCE CARLOS As Directed Insulin Human Regular 0 units 11/21/20 00:00 11/21/20 05:26 Insulin Regular, Human 100 Units/1 Ml SUB-Q Not Given Q6HR [facility] Protocol Multi-Ingred Cream/Lotion/Oil/Oint 1 applic 11/13/20 05:33 Mineral Oil/Petrolatum, White Ophth Oint 3.5 Gm OU Q4HR PRN Dry Eye(s) Ondansetron HCl 4 mg 11/11/20 22:11 Ondansetron 4 Mg/2 Ml Inj IV Q3H PRN Nausea And Vomiting Pantoprazole Sodium 40 mg 11/22/20 22:00 Pantoprazole 40 Mg Inj IV BID CARLOS Simple Syrup 15 ml 11/13/20 17:32 Simple Syrup 15 Ml FEEDTUBE PRN PRN Hypoglycemia Simple Syrup 30 ml 11/13/20 17:32 Simple Syrup 15 Ml FEEDTUBE PRN PRN Hypoglycemia Sodium Bicarbonate 325 mg 11/13/20 17:32 Sodium Bicarbonate 325 Mg Tab FEEDTUBE PRN PRN For Clogged Feeding Tube Sodium Bicarbonate 150 meq 11/21/20 13:00 Sodium Bicarb 8.4% 50 Meq/50 Ml Syringe IV 11/21/20 13:01 ONCE ONE Sodium Chloride 10 ml 11/12/20 10:00 11/21/20 09:44 Sodium Chloride 0.9% 10 Ml Flush Syringe IV 10 ml BID CARLOS Administration Sodium Chloride 10 ml 11/11/20 22:11 Sodium Chloride 0.9% 10 Ml Flush Syringe IV PRN PRN LINE FLUSH Zinc Sulfate 220 mg 11/13/20 22:00 11/21/20 09:42 Zinc Sulfate 220 Mg Cap PO Not Given BID [facility] Nutrition/Malnutrition Assess - Dietary Evaluation Nutrition/Malnutrition Findings: Nutrition Notes Start: 11/13/20 17:25 Freq: Status: Active Protocol: Document 11/20/20 08:03 DWAYNE (Rec: 11/20/20 08:07 DWAYNE [id number]) Nutrition Notes Initial or Follow up Brief Note Current Diagnosis Sepsis,Respiratory Failure Other Pertinent Diagnosis COVID-19 (+), Dehydration, (L) renal stone Current Diet Vital AF 1.2 at 50 ml/hr Subjective/Other Information TF was running until 11/19 when NGT turned to suction. Pt continues with GIB and distension of stomach with possibilty to scope. Nutrition Intervention Follow-Up By: 11/22/20 Additional Comments F/u: POC - Attestation Statement I have reviewed and agreed w/ Malnutrition eval & tx plan: Yes
--- NOTE | 2020-11-21 13:35 | Gastroenterology Progress Note ---
Assessment and Plan 85 yo female with pmh of obesity, chronic UTI, and depression admitted on 11/11/2020 for nausea/vomiting and decreased PO intake. # COVID infection # Respiratory failure # Septic shock # Intra-arterial line placement in left carotid artery # GI bleed - review of the initial CT a/p without contrast on 11/11 with gaseous distension of the stomach without obvious cause. No signs of bowel obstruction. - currently on heparin drip for carotid artery line, which is a risk for thrombus and thromboembolic event with CVA. - s/p EGD on 11/20/2020 showing gastric body ulcer with overlying clot and minimal oozing controlled with epinephrine injection and endoclip placement with hemostasis achieved. - Patient remained stable overnight with low dose of lovephed per nursing. This morning, patient became more unstable with Hgb down to 6 from 9. Continued to have dark bloody liquid output from the rectal tube. Patient had code this morn ing and now max out on three pressors. Patient receiving PRBCs and FFP. Patient's code status changed to DNR. - suspect bleeding source including possibly from the gastric ulcer but doubt given endoscopic findings vs other source including lower GI in the setting of coagulopathy, septic shock, and likely DIC - patient critically ill with shock, severe COVID infection/pneumonia, sepsis. Rec - monitor H/H serially and transfuse as needed. - PPI IV - correct coagulopathy - patient too unstable for any endoscopic intervention or even CT scan. - supportive care. - hold heparin drip given on-going bleeding and severe coagulopathy. - spoke with patient's daughter, Ms. Azevedo and updated on the conditions and critical state with septic/hemorrhagic shock, respiratory failure and poor prog nosis. Subjective Date of service: 11/21/20 Principal diagnosis: Ac hypoxemic resp failure; COVID-19 infxn; Pneumonia; KATLYN; AMS; Sepsis Interval history: Per nursing, patient remained stable overnight on low dose of levophed post EGD procedure. This morning, patient became more unstable requiring more pressors. She continues to have dark bloody liquids via rectal tube. Patient had code this morning at 11 AM and had ROSC. Currently max on three pressors. Objective - Constitutional Vitals: Temp Pulse Resp BP Pulse Ox 94.5 F L 95 H 120 H 102/34 92 11/21/20 12:15 11/21/20 12:18 11/21/20 11:41 11/21/20 12:18 11/21/20 12:18 General appearance: other (intubated, sedated) - Respiratory Respiratory effort: other (intubated and on the vent) - Cardiovascular Rhythm: regular Heart Sounds: Present: S1 & S2 - Gastrointestinal General gastrointestinal: Present: soft, distended - Neurologic Neurological: other (unresponsive) - Labs CBC & Chem 7: 11/21/20 09:53 11/21/20 09:53 Labs: Laboratory Results - last 24 hr 11/19/20 11/20/20 11/20/20 19:45 17:52 20:48 Hgb Hct Plt Count Fibrinogen Heparin Anti-Xa Level ABG pH 7.468 H POC ABG pCO2 25.5 L POC ABG pO2 83.9 POC ABG HCO3 18.1 ABG O2 Saturation 95.7 POC ABG Base Excess -4.9 ABG Hemoglobin 7.6 L ABG Oxyhemoglobin 94.5 ABG Methemoglobin 0.3 ABG Sodium 137.6 ABG Potassium 4.1 ABG Chloride 111.0 H ABG Glucose 190 H Carboxyhemoglobin 1.0 FiO2 % 50.0 Sodium Potassium Chloride Carbon Dioxide Anion Gap BUN Creatinine Estimated GFR BUN/Creatinine Ratio Glucose POC Glucose 154 H Calcium Lactate Dehydrogenase C-Reactive Protein Arterial Blood Glucose 190 H Arterial Blood Ionized Calcium 3.8 L Blood Type A POSITIVE Antibody Screen Negative Crossmatch See Detail 11/20/20 11/21/20 11/21/20 23:01 00:27 00:27 Hgb 7.0 L Hct 21.9 L D Plt Count Fibrinogen Heparin Anti-Xa Level 1.46 H ABG pH POC ABG pCO2 POC ABG pO2 POC ABG HCO3 ABG O2 Saturation POC ABG Base Excess ABG Hemoglobin ABG Oxyhemoglobin ABG Methemoglobin ABG Sodium ABG Potassium ABG Chloride ABG Glucose Carboxyhemoglobin FiO2 % Sodium Potassium Chloride Carbon Dioxide Anion Gap BUN Creatinine Estimated GFR BUN/Creatinine Ratio Glucose POC Glucose 144 H Calcium Lactate Dehydrogenase C-Reactive Protein Arterial Blood Glucose Arterial Blood Ionized Calcium Blood Type Antibody Screen Crossmatch 11/21/20 11/21/20 11/21/20 05:17 09:53 09:53 Hgb Hct Plt Count 193 Fibrinogen Heparin Anti-Xa Level ABG pH POC ABG pCO2 POC ABG pO2 POC ABG HCO3 ABG O2 Saturation POC ABG Base Excess ABG Hemoglobin ABG Oxyhemoglobin ABG Methemoglobin ABG Sodium ABG Potassium ABG Chloride ABG Glucose Carboxyhemoglobin FiO2 % Sodium 146 H Potassium 5.7 H D Chloride 107.6 H Carbon Dioxide 10 L D Anion Gap 34 BUN 83 H Creatinine 1.9 H Estimated GFR 25 BUN/Creatinine Ratio 44 Glucose 158 H POC Glucose 88 Calcium 6.1 L Lactate Dehydrogenase 1131 H C-Reactive Protein 2.00 H Arterial Blood Glucose Arterial Blood Ionized Calcium Blood Type Antibody Screen Crossmatch 11/21/20 11/21/20 11/21/20 09:53 09:53 11:12 Hgb 6.1 L Hct 20.2 L Plt Count Fibrinogen 208 L Heparin Anti-Xa Level 1.24 H ABG pH POC ABG pCO2 POC ABG pO2 POC ABG HCO3 ABG O2 Saturation POC ABG Base Excess ABG Hemoglobin ABG Oxyhemoglobin ABG Methemoglobin ABG Sodium ABG Potassium ABG Chloride ABG Glucose Carboxyhemoglobin FiO2 % Sodium Potassium Chloride Carbon Dioxide Anion Gap BUN Creatinine Estimated GFR BUN/Creatinine Ratio Glucose POC Glucose Calcium Lactate Dehydrogenase C-Reactive Protein Arterial Blood Glucose Arterial Blood Ionized Calcium Blood Type Antibody Screen Crossmatch 11/21/20 11/21/20 11/21/20 11:21 11:28 11:39 Hgb Hct Plt Count Fibrinogen Heparin Anti-Xa Level ABG pH 7.056 L POC ABG pCO2 44.0 POC ABG pO2 87.3 POC ABG HCO3 12.1 ABG O2 Saturation 91.4 POC ABG Base Excess -16.5 ABG Hemoglobin 4.4 L ABG Oxyhemoglobin 89.8 L ABG Methemoglobin 0.3 ABG Sodium 138.0 ABG Potassium 4.2 ABG Chloride 111.0 H ABG Glucose 573 H Carboxyhemoglobin 1.4 FiO2 % 100.0 Sodium Potassium Chloride Carbon Dioxide Anion Gap BUN Creatinine Estimated GFR BUN/Creatinine Ratio Glucose POC Glucose 49 L 43 L Calcium Lactate Dehydrogenase C-Reactive Protein Arterial Blood Glucose 573 H Arterial Blood Ionized Calcium 4.9 Blood Type Antibody Screen Crossmatch
[2020-11-21 14:05] LABS: INR 17.11 (0.87-1.13)
--- NOTE | 2020-11-21 15:45 | Event Note ---
Date: 11/21/20 Patient with a history of COVID-19 with triple-lumen catheter inadvertently inserted intra-arterially. The patient had small amount of thrombus at the catheter insertion site and was initiated on a heparin drip. Over the course of the patient's hospitalization, she has decline from her COVID-19 as well as gastric ulceration and now is maxed out on 3 pressors with a fourth being added. Patient coded this morning. Her INR is 17. Patient's hemoglobin is dropped to 4. Would agree with the decision to discontinue the heparin drip.
[2020-11-21] MEDS: SODIUM BICARBONATE 150 MEQ in DEXTROSE 5% IN WATER 1,000 ML IV SCH ×2 (16:00→21:05)
--- NOTE | 2020-11-21 16:10 | Procedure Note ---
Date of procedure: 11/21/20 (left fem triple lumen) Pre-op diagnosis: respiratory failure Procedure: Left femoral central line 2 MD consent for emergent trialysis catheter - pt in acute respiratory failure and needs emergent CVL placement -Dr Gonzales and Dr Linton aware. Left femoral CVL catheter placed. Sterile technique utilized. Area prepped with chlorhexidine/ full body drape utilized. Line was sutured, biopatch placed and tegaderm dressing applied. RN called to bedside. Able to use CVL for additional lumens Pt tolerated procedure but is maxed on vasopressors, coagulopathic and hypothermic. CCT: 60 minutes Procedure time not included in daily CCT (time spent placing line not included in daily critical care time) Surgeon: DERIK HERNANDEZ [employer] Tutor: KRISTAN KUHN Estimated blood loss: none Pathology: none Condition: stable Disposition: ICU
--- NOTE | 2020-11-21 16:10 | Procedure Note ---
Date of procedure: 11/21/20 (left fem kyle) Pre-op diagnosis: Septic shock, COVID-19 pneumonia, s/p cardiac arrest Post-op diagnosis: same Procedure: Left femoral kyle inserted using sterile technique. Area prepped with betadine. Arterial line was placed using dopplar to locate pulse and palpating pulse; catheter advanced without difficulty. Line was sutured, biopatch placed and tegaderm dressing applied. Arterial waveform observed on bedside monitor. Line flushed and zeroed. RN at bedside. Pt remained maxed on vasopressors through procedure CCT: 60 minutes Procedure time not included in daily CCT Anesthesia: none Surgeon: DERIK HERNANDEZ [employer] Physician: KRISTAN KUHN Estimated blood loss: minimal Condition: critical Disposition: ICU
--- NOTE | 2020-11-21 17:38 | Progress Note ---
Assessment and Plan Cultures: Blood culture no growth so far Respiratory culture: MRSA Covid PCR: Positive A/P: 85-year-old female past medical history obesity, chronic low back pain, depression admitted with COVID-19 #Severe COVID-19 pneumonia: Patient presented with a week of symptoms, chest x- ray with diffuse bilateral infiltrates, admission O2 sats 89-90% on room air. Inflammatory markers elevated. Normal procalcitonin. Was not remdesivir candidate due to renal function. #Acute hypoxemic respiratory failure: Likely secondary to COVID-19 infection. Currently on the vent. Her inflammatory markers are improving significantly. #KATLYN: renally dose medications. not a candidate for remdesivir #nephrolithiasis: with associated hydronephrosis. Initial UA was normal, second was was most likely highly contaminated given large amounts of blood and epithelial cells. most recent one still with significant blood, however in the setting of recent urological procedure and new fevers will treat. Recs: -Dexamethasone 6 mg IV/PO daily for 10 days -s/p Actemra -Obtain q48-72h inflammatory markers - ferritin, Ddimer, CRP, LDH -Anticoagulation per hospital protocol -Proning as able -Started vancomycin and cefepime yesterday given new fevers and worsening white count -Follow up urine cultures. Thank you for the consult, we will continue to follow. Araceli Chacon MD [facility] ([facility] O: [phone] F: [phone] Subjective Date of service: 11/21/20 Principal diagnosis: Ac hypoxemic resp failure; COVID-19 infxn; Pneumonia; KATLYN; AMS; Sepsis Interval history: Afebrile with low temperatures overnight. Patient coded this morning. Objective - Exam Narrative Exam: Physical exam deferred to reduce risk of transmission of COVID-19. Please refer to primary team's note. - Constitutional Vitals: Vital Signs Temp Pulse Resp BP Pulse Ox 93 F L 98 H 22 135/60 86 11/21/20 15:54 11/21/20 17:15 11/21/20 17:15 11/21/20 17:15 11/21/20 17:01 Temperature -Last 24 Hours Temperature 93 F Temperature 94.5 F Temperature 94.5 F Temperature 96.3 F Temperature 96.8 F Temperature 98.6 F Temperature 97.0 F Temperature 97.0 F - Labs CBC & Chem 7: 11/21/20 09:53 11/21/20 09:53 Labs: Abnormal lab results 11/19/20 11/20/20 11/20/20 Range/Units 19:45 17:52 20:48 Hgb (10.1-14.3) gm/dl Hct (30.3-42.9) % PT (12.2-14.9) Sec. INR (0.87-1.13) Fibrinogen (211-480) mg/dl D-Dimer (0-234) ng/mlDDU Heparin Anti-Xa Level (0.3-0.7) U.I./ml ABG pH 7.468 H (7.320-7.450) POC ABG pCO2 25.5 L (32.0-48.0) mmHg POC ABG pO2 (83-108) mmHg ABG Hemoglobin 7.6 L (12.0-17.5) ABG Oxyhemoglobin (94-98) ABG Chloride 111.0 H (98-107) mmol/L ABG Glucose 190 H (65-95) mg/dL Sodium (137-145) mmol/L Potassium (3.6-5.0) mmol/L Chloride (98-107) mmol/L Carbon Dioxide (22-30) mmol/L BUN (7-17) mg/dL Creatinine (0.6-1.2) mg/dL Glucose (65-100) mg/dL POC Glucose 154 H (70-105) mg/dL Calcium (8.4-10.2) mg/dL Lactate Dehydrogenase (91-180) units/L C-Reactive Protein (0.00-1.30) mg/dL Arterial Blood Glucose 190 H (65-95) mg/dL Arterial Blood Ionized Calcium 3.8 L (4.6-5.3) mg/dL Crossmatch See Detail 11/20/20 11/21/20 11/21/20 Range/Units 23:01 00:27 00:27 Hgb 7.0 L (10.1-14.3) gm/dl Hct 21.9 L D (30.3-42.9) % PT (12.2-14.9) Sec. INR (0.87-1.13) Fibrinogen (211-480) mg/dl D-Dimer (0-234) ng/mlDDU Heparin Anti-Xa Level 1.46 H (0.3-0.7) U.I./ml ABG pH (7.320-7.450) POC ABG pCO2 (32.0-48.0) mmHg POC ABG pO2 (83-108) mmHg ABG Hemoglobin (12.0-17.5) ABG Oxyhemoglobin (94-98) ABG Chloride (98-107) mmol/L ABG Glucose (65-95) mg/dL Sodium (137-145) mmol/L Potassium (3.6-5.0) mmol/L Chloride (98-107) mmol/L Carbon Dioxide (22-30) mmol/L BUN (7-17) mg/dL Creatinine (0.6-1.2) mg/dL Glucose (65-100) mg/dL POC Glucose 144 H (70-105) mg/dL Calcium (8.4-10.2) mg/dL Lactate Dehydrogenase (91-180) units/L C-Reactive Protein (0.00-1.30) mg/dL Arterial Blood Glucose (65-95) mg/dL Arterial Blood Ionized Calcium (4.6-5.3) mg/dL Crossmatch 11/21/20 11/21/20 11/21/20 Range/Units 09:53 09:53 09:53 Hgb 6.1 L (10.1-14.3) gm/dl Hct 20.2 L (30.3-42.9) % PT 116.7 H (12.2-14.9) Sec. INR 17.11 H* (0.87-1.13) Fibrinogen (211-480) mg/dl D-Dimer 1623.09 H (0-234) ng/mlDDU Heparin Anti-Xa Level (0.3-0.7) U.I./ml ABG pH (7.320-7.450) POC ABG pCO2 (32.0-48.0) mmHg POC ABG pO2 (83-108) mmHg ABG Hemoglobin (12.0-17.5) ABG Oxyhemoglobin (94-98) ABG Chloride (98-107) mmol/L ABG Glucose (65-95) mg/dL Sodium 146 H (137-145) mmol/L Potassium 5.7 H D (3.6-5.0) mmol/L Chloride 107.6 H (98-107) mmol/L Carbon Dioxide 10 L D (22-30) mmol/L BUN 83 H (7-17) mg/dL Creatinine 1.9 H (0.6-1.2) mg/dL Glucose 158 H (65-100) mg/dL POC Glucose (70-105) mg/dL Calcium 6.1 L (8.4-10.2) mg/dL Lactate Dehydrogenase 1131 H (91-180) units/L C-Reactive Protein 2.00 H (0.00-1.30) mg/dL Arterial Blood Glucose (65-95) mg/dL Arterial Blood Ionized Calcium (4.6-5.3) mg/dL Crossmatch 11/21/20 11/21/20 11/21/20 Range/Units 11:12 11:21 11:28 Hgb (10.1-14.3) gm/dl Hct (30.3-42.9) % PT (12.2-14.9) Sec. INR (0.87-1.13) Fibrinogen 208 L (211-480) mg/dl D-Dimer (0-234) ng/mlDDU Heparin Anti-Xa Level 1.24 H (0.3-0.7) U.I./ml ABG pH 7.056 L (7.320-7.450) POC ABG pCO2 (32.0-48.0) mmHg POC ABG pO2 (83-108) mmHg ABG Hemoglobin 4.4 L (12.0-17.5) ABG Oxyhemoglobin 89.8 L (94-98) ABG Chloride 111.0 H (98-107) mmol/L ABG Glucose 573 H (65-95) mg/dL Sodium (137-145) mmol/L Potassium (3.6-5.0) mmol/L Chloride (98-107) mmol/L Carbon Dioxide (22-30) mmol/L BUN (7-17) mg/dL Creatinine (0.6-1.2) mg/dL Glucose (65-100) mg/dL POC Glucose 49 L (70-105) mg/dL Calcium (8.4-10.2) mg/dL Lactate Dehydrogenase (91-180) units/L C-Reactive Protein (0.00-1.30) mg/dL Arterial Blood Glucose 573 H (65-95) mg/dL Arterial Blood Ionized Calcium (4.6-5.3) mg/dL Crossmatch 11/21/20 11/21/20 Range/Units 11:39 13:35 Hgb (10.1-14.3) gm/dl Hct (30.3-42.9) % PT (12.2-14.9) Sec. INR (0.87-1.13) Fibrinogen (211-480) mg/dl D-Dimer (0-234) ng/mlDDU Heparin Anti-Xa Level (0.3-0.7) U.I./ml ABG pH 7.213 L (7.320-7.450) POC ABG pCO2 29.3 L (32.0-48.0) mmHg POC ABG pO2 79.3 L (83-108) mmHg ABG Hemoglobin (12.0-17.5) ABG Oxyhemoglobin 93.5 L (94-98) ABG Chloride 110.0 H (98-107) mmol/L ABG Glucose 297 H (65-95) mg/dL Sodium (137-145) mmol/L Potassium (3.6-5.0) mmol/L Chloride (98-107) mmol/L Carbon Dioxide (22-30) mmol/L BUN (7-17) mg/dL Creatinine (0.6-1.2) mg/dL Glucose (65-100) mg/dL POC Glucose 43 L (70-105) mg/dL Calcium (8.4-10.2) mg/dL Lactate Dehydrogenase (91-180) units/L C-Reactive Protein (0.00-1.30) mg/dL Arterial Blood Glucose 297 H (65-95) mg/dL Arterial Blood Ionized Calcium 4.1 L (4.6-5.3) mg/dL Crossmatch
[2020-11-21] MEDS: VANCOMYCIN 1,500 MG in SODIUM CHLORIDE 0.9% 500 ML 500 ML IV SCH (18:21)
[2020-11-21 20:59] LABS: INR 1.93 (0.87-1.13)
[2020-11-22] MEDS: INSULIN REGULAR, HUMAN 100 UNITS/1 ML SUB-Q SCH ×5 (00:32→23:30)
[2020-11-22 02:55] LABS: INR 1.73 (0.87-1.13)
[2020-11-22 02:56] LABS: Partial Thromboplastin Time 33.9 Sec. (24.2-36.6)
[2020-11-22] MEDS: CEFEPIME/NS 2 GM/100 ML 2 GM/100 ML BAG IV SCH ×2 (03:29→16:02)
[2020-11-22] MEDS: VASOPRESSIN 20 UNIT in SODIUM CHLORIDE 0.9% 100 ML IV SCH ×2 (05:11→17:26)
[2020-11-22] MEDS: SODIUM BICARBONATE 150 MEQ in DEXTROSE 5% IN WATER 1,000 ML IV SCH (05:12)
[2020-11-22] MEDS: NORepinephrine/NS 8 MG-250 ML 8 MG/250 ML INFUS..BTL IV SCH ×3 (05:23→21:38)
[2020-11-22] MEDS: DEXTROSE 50% IN WATER (25GM) 50 ML SYRINGE IV PRN (05:27)
[2020-11-22 06:00] LABS: Hematocrit 32.3 % (30.3-42.9); Mean Corpuscular HGB Conc 34 % (30-34); Mean Corpuscular Volume 86 fl (79-97); Red Blood Count 3.76 M/mm3 (3.65-5.03); Red Cell Distribution Width 15.4 % (13.2-15.2)
[2020-11-22 06:17] LABS: Platelet Count 40 K/mm3 (140-440)
[2020-11-22 06:26] LABS: Albumin 2.2 g/dL (3.9-5); Calcium 6.8 mg/dL (8.4-10.2)
[2020-11-22] MEDS ORDERED: MAGNESIUM SULFATE 4 GM/100 ML BAG IV ONE (09:00)
[2020-11-22] MEDS: ASCORBIC ACID 500 MG TAB PO SCH ×2 (09:11→21:05)
[2020-11-22] MEDS: ZINC SULFATE 220 MG CAP PO SCH ×2 (09:11→21:05)
--- NOTE | 2020-11-22 09:27 | Progress Note ---
Assessment and Plan 1. Acute kidney injury: KATLYN in the setting of severe Covid infection. Patient is also hypotensive. Received IV contrast 11/13. CT abdomen showed non-obstructive 7 mm distal left ureteral stone. Low FeNa. Monitor renal function. Creatinine level is about the same as yesterday. Avoid nephrotoxic agents. Meds dosage based on GFR. 2. FEN: Hypernatremia, was on D5W, monitor. Hyperchloremic metabolic acidosis, improved, monitor. Hypokalemia, replete K as needed, monitor. Replete Calcium. Monitor lytes and volume status. 3. Acute respiratory failure with hypoxemia: 2/2 Covid PNA. Currently on vent, wean as tolerated. 4. Shock: On Levophed and Vasopressin. Monitor. 5. Covid PNA: Followed by ID. 6. L ureteral stone: S/p b/l stent. Seen by Urologist. 7. Elevated ALT & AST: Trend. 8. DM type 2: Monitor. Subjective: Patient was seen and examined at the bedside. D/w ICU DIRECTOR [employer]AT[employer] COMPLIANCE. Examination: General appearance: well-developed, appears stated age, intubated on vent HEENT: atraumatic, no icterus Neck: trachea midline Respiratory: MV sounds Heart: S1S2, regular, no murmur Abdomen: soft, bowel sounds heard, NT Integumentary: no obvious rash Neurologic: not responding Ext: dependent edema noted Subjective Date of service: 11/22/20 Principal diagnosis: Ac hypoxemic resp failure; COVID-19 infxn; Pneumonia; KATLYN; AMS; Sepsis Objective - Vital Signs Vital signs: Vital Signs - 12hr 11/21/20 11/21/20 11/21/20 21:30 21:45 22:00 Temperature Pulse Rate 90 87 86 Pulse Rate [ From Monitor] Respiratory 21 21 19 Rate Blood Pressure O2 Sat by Pulse 91 87 88 Oximetry 11/21/20 11/21/20 11/21/20 22:15 22:30 22:45 Temperature Pulse Rate 86 88 82 Pulse Rate [ From Monitor] Respiratory 17 19 19 Rate Blood Pressure O2 Sat by Pulse 88 89 87 Oximetry 11/21/20 11/21/20 11/21/20 23:00 23:15 23:31 Temperature Pulse Rate 85 86 81 Pulse Rate [ From Monitor] Respiratory 28 H 22 24 Rate Blood Pressure O2 Sat by Pulse 88 88 88 Oximetry 11/21/20 11/21/20 11/22/20 23:45 23:57 00:00 Temperature 95.4 F L Pulse Rate 90 87 Pulse Rate [ From Monitor] Respiratory 23 19 Rate Blood Pressure O2 Sat by Pulse 91 91 Oximetry 11/22/20 11/22/20 11/22/20 00:15 00:31 00:45 Temperature Pulse Rate 92 H 87 88 Pulse Rate [ From Monitor] Respiratory 31 H 21 24 Rate Blood Pressure O2 Sat by Pulse 99 89 88 Oximetry 11/22/20 11/22/20 11/22/20 01:00 01:15 01:31 Temperature Pulse Rate 92 H 92 H 82 Pulse Rate [ From Monitor] Respiratory 18 24 21 Rate Blood Pressure O2 Sat by Pulse 90 98 86 Oximetry 11/22/20 11/22/20 11/22/20 01:45 02:01 02:15 Temperature Pulse Rate 88 88 85 Pulse Rate [ From Monitor] Respiratory 20 24 22 Rate Blood Pressure O2 Sat by Pulse 88 88 90 Oximetry 11/22/20 11/22/20 11/22/20 02:31 02:45 03:01 Temperature Pulse Rate 85 90 85 Pulse Rate [ From Monitor] Respiratory 22 18 22 Rate Blood Pressure O2 Sat by Pulse 87 84 85 Oximetry 11/22/20 11/22/20 11/22/20 03:15 03:31 03:33 Temperature 97 F L Pulse Rate 87 91 H Pulse Rate [ From Monitor] Respiratory 25 H 22 Rate Blood Pressure O2 Sat by Pulse 88 88 Oximetry 11/22/20 11/22/20 11/22/20 03:45 04:00 04:01 Temperature Pulse Rate 86 88 Pulse Rate [ From Monitor] Respiratory 27 H 24 Rate Blood Pressure O2 Sat by Pulse 85 97 85 Oximetry 11/22/20 11/22/20 11/22/20 04:15 04:31 04:45 Temperature Pulse Rate 99 H 103 H Pulse Rate [ From Monitor] Respiratory 25 H 28 H 20 Rate Blood Pressure O2 Sat by Pulse 92 88 97 Oximetry 11/22/20 11/22/20 11/22/20 05:01 05:15 05:31 Temperature Pulse Rate 101 H 102 H 95 H Pulse Rate [ From Monitor] Respiratory 25 H 28 H 23 Rate Blood Pressure O2 Sat by Pulse 100 92 99 Oximetry 11/22/20 11/22/20 11/22/20 05:45 06:01 06:15 Temperature Pulse Rate 98 H 99 H 96 H Pulse Rate [ From Monitor] Respiratory 26 H 24 26 H Rate Blood Pressure 153/58 O2 Sat by Pulse 97 98 100 Oximetry 11/22/20 11/22/20 11/22/20 06:31 06:45 07:01 Temperature Pulse Rate 94 H 102 H 99 H Pulse Rate [ From Monitor] Respiratory 26 H 23 25 H Rate Blood Pressure 153/58 153/58 153/58 O2 Sat by Pulse 99 100 100 Oximetry 11/22/20 11/22/20 11/22/20 07:15 07:25 07:31 Temperature 96.8 F L Pulse Rate 92 H 94 H Pulse Rate [ From Monitor] Respiratory 28 H 26 H Rate Blood Pressure 153/58 153/58 O2 Sat by Pulse 96 99 Oximetry 11/22/20 11/22/20 11/22/20 07:45 08:00 08:01 Temperature Pulse Rate 97 H 101 H 97 H Pulse Rate [ 102 H From Monitor] Respiratory 27 H 25 H 26 H Rate Blood Pressure 153/58 153/58 O2 Sat by Pulse 95 100 100 Oximetry - Lab 11/22/20 Unknown 11/22/20 Unknown Most recent lab results ABG pH 7.213 (7.320-7.450) L 11/21/20 13:35 ABG O2 Saturation 94.7 (0-100) 11/21/20 13:35 Calcium 6.8 mg/dL (8.4-10.2) L 11/22/20 Unknown Phosphorus 4.50 mg/dL (2.5-4.5) 11/22/20 Unknown Magnesium 1.50 mg/dL (1.7-2.3) L 11/22/20 Unknown Urine Creatinine 80.2 mg/dL (0.1-20.0) H 11/14/20 06:15 Urine Sodium 28 mmol/L 11/14/20 06:15 Medications & Allergies - Medications Allergies/Adverse Reactions: Allergies morphine Adverse Reaction (Verified 05/26/13 19:22) Nausea Home Medications: Home Medications Medication Instructions Recorded Confirmed Last Taken Type Acetaminophen [Tylenol] 325 mg PO DAILY #10 tablet 05/26/13 10/17/14 10/16/14 Rx Baclofen [Lioresal] 10 mg PO TID PRN 05/26/13 10/17/14 10/16/14 History Diazepam [Valium] 10 mg PO BID 05/26/13 10/17/14 10/16/14 History PARoxetine [Paxil] 10 mg PO DAILY 05/26/13 10/17/14 10/16/14 19:00 History Quetiapine Fumarate [SEROquel XR] 200 mg PO DAILY 05/26/13 10/17/14 10/16/14 History rOPINIRole [Requip] 1 mg PO QHS 05/26/13 10/17/14 10/16/14 19:00 History QUEtiapine [SEROquel] 200 mg PO QHS 05/28/13 10/17/14 10/16/14 19:00 History Famotidine [Pepcid] 10 mg PO BID #60 tablet 06/02/13 10/17/14 10/16/14 Rx levoFLOXacin [Levaquin] 750 mg PO QDAY #7 tablet 06/02/13 10/17/14 10/16/14 Rx metroNIDAZOLE [Flagyl] 500 mg PO Q8HR #30 tablet 06/02/13 10/17/14 10/16/14 Rx Hydromorphone HCl [Dilaudid] 4 mg PO 10/17/14 10/17/14 10/16/14 History Oxycodone HCl/Acetaminophen 1 each PO Q6HR PRN 10/17/14 10/17/14 10/16/14 History [Percocet 10-325 mg] Oxycodone HCl/Acetaminophen 1 each PO Q6HR PRN #30 tablet 10/18/14 Unknown Rx [Percocet 10-325 mg] Active Medications: Generic Name Dose Route Start Last Admin Trade Name Freq PRN Reason Stop Dose Admin Acetaminophen 650 mg 11/11/20 22:11 11/19/20 11:30 Acetaminophen 325 Mg Tab PO 650 mg Q4H PRN Administration Pain MILD(1-3)/Fever >100.5/ERAZO Albuterol 2.5 mg 11/13/20 07:40 Albuterol 2.5 Mg/3 Ml Nebu IH Q4HRT PRN Shortness Of Breath Lipase/Protease/Amylase 1 each 11/13/20 17:32 Lipase 10,500/Protease 25,000/Amylase 43,750 (Units) Dr Weiss FEEDTUBE PRN PRN For Clogged Feeding Tube Ascorbic Acid 500 mg 11/13/20 22:00 11/22/20 09:11 Ascorbic Acid 500 Mg Tab PO Not Given BID CARLOS Baclofen 10 mg 11/11/20 22:09 Baclofen 10 Mg Tab PO TID PRN MUSCLE SPASMS & PAIN Dexamethasone 6 mg 11/13/20 10:00 11/21/20 09:44 Dexamethasone 4 Mg/Ml Vial IV 11/22/20 10:01 6 mg Q24HR CARLOS Administration Dextrose 50 ml 11/13/20 16:43 11/22/20 05:27 Dextrose 50% In Water (25gm) 50 Ml Syringe IV 50 ml Q30MIN PRN Administration Hypoglycemia Protocol Fentanyl 50 mcg 11/13/20 05:33 Fentanyl 100 Mcg/2 Ml Inj IV Q10MIN PRN ANALGESIA Heparin Sodium (Porcine) 3,000 unit 11/13/20 05:04 Heparin 10,000 Units/10 Ml Vial 40 unit/kg (3000 unit) IV Q6H PRN Anti-Xa Assay < 0.1 units/ml Hydrophilic Ointment 1 applic 11/13/20 05:33 Lip Therapy Vaseline TP Q2HR PRN Dry Lips Heparin Sodium/Sodium Chloride 25,000 unit in 500 mls @ 23 mls/hr 11/13/20 06:00 11/21/20 11:08 Heparin/ 0.45% Nacl-25,000 Unit/500 Ml IV 0 units/hr TITR CARLOS 0 mls/hr Titration Protocol 1,150 UNITS/HR Fentanyl Citrate 2,000 mcg in 100 mls @ 3.81 mls/hr 11/13/20 06:00 11/21/20 15:00 Fentanyl Drip Premix IV 0 mcg/kg/hr TITR CARLOS 0 mls/hr Titration Protocol 1 MCG/KG/HR NORepinephrine/NS 8 MG-250 ML 8 mg in 250 mls @ 3.75 mls/hr 11/13/20 15:00 11/22/20 05:23 Norepinephrine/Ns 8 Mg-250 Ml (Double Conc) IV 20 mcg/min TITRATE CARLOS 37.5 mls/hr Administration Protocol 2 MCG/MIN Vasopressin 20 unit/ Sodium 101 mls @ 9.09 mls/hr 11/19/20 09:00 11/22/20 05: 11 Chloride IV 0.03 units/min TITR CARLOS 9.09 mls/hr Administration Protocol 0.03 UNITS/MIN Pantoprazole Sodium 80 mg/ 100 mls @ 10 mls/hr 11/19/20 15:00 11/21/20 16:17 Sodium Chloride IV 11/22/20 14:59 8 mg/hr DIRECT CARLOS 10 mls/hr Administration 8 MG/HR Cefepime HCl 2 gm in 100 mls @ 200 mls/hr 11/20/20 14:00 11/22/20 03:29 Cefepime/Ns 2 Gm/100 Ml IV 200 mls/hr Q12H CARLOS Administration Protocol Vancomycin HCl 1,500 mg/ 530 mls @ 333.333 mls/hr 11/20/20 15:00 11/21/20 18:21 Sodium Chloride IV 333.333 mls/hr Q24H CARLOS Administration Phenylephrine HCl 100 mg/ 100 mls @ 3 mls/hr 11/21/20 08:15 11/21/20 17:53 Sodium Chloride IV 0 mcg/min TITR CARLOS 0 mls/hr Titration Protocol 50 MCG/MIN Epinephrine 16 mg/ Sodium 250 mls @ 1.875 mls/hr 11/21/20 11:00 11/22/20 01:00 Chloride IV 0 mcg/min TITR CARLOS 0 mls/hr Titration Protocol 2 MCG/MIN Sodium Bicarbonate 150 meq/ 1,150 mls @ 150 mls/hr 11/21/20 13:00 11/22/20 05:12 Dextrose IV 150 mls/hr DIRECT CARLOS Administration Potassium Chloride 20 meq in 100 mls @ 100 mls/hr 11/22/20 09:00 Kcl 20meq/100ml IV 11/22/20 11:59 Q1H CARLOS Magnesium Sulfate 4 gm in 100 mls @ 25 mls/hr 11/22/20 09:00 Magnesium Sulfate 4gm/100ml IV 11/22/20 12:59 ONCE ONE Insulin Human Regular 0 units 11/21/20 00:00 11/22/20 05:42 Insulin Regular, Human 100 Units/1 Ml SUB-Q Not Given Q6HR [facility] Protocol Multi-Ingred Cream/Lotion/Oil/Oint 1 applic 11/13/20 05:33 Mineral Oil/Petrolatum, White Ophth Oint 3.5 Gm OU Q4HR PRN Dry Eye(s) Ondansetron HCl 4 mg 11/11/20 22:11 Ondansetron 4 Mg/2 Ml Inj IV Q3H PRN Nausea And Vomiting Pantoprazole Sodium 40 mg 11/22/20 22:00 Pantoprazole 40 Mg Inj IV BID CARLOS Simple Syrup 15 ml 11/13/20 17:32 Simple Syrup 15 Ml FEEDTUBE PRN PRN Hypoglycemia Simple Syrup 30 ml 11/13/20 17:32 Simple Syrup 15 Ml FEEDTUBE PRN PRN Hypoglycemia Sodium Bicarbonate 325 mg 11/13/20 17:32 Sodium Bicarbonate 325 Mg Tab FEEDTUBE PRN PRN For Clogged Feeding Tube Sodium Chloride 10 ml 11/12/20 10:00 11/21/20 21:14 Sodium Chloride 0.9% 10 Ml Flush Syringe IV 10 ml BID CARLOS Administration Sodium Chloride 10 ml 11/11/20 22:11 Sodium Chloride 0.9% 10 Ml Flush Syringe IV PRN PRN LINE FLUSH Zinc Sulfate 220 mg 11/13/20 22:00 11/22/20 09:11 Zinc Sulfate 220 Mg Cap PO Not Given BID CARLOS
[2020-11-22 09:37] LABS: Albumin 2.1 g/dL (3.9-5); Calcium 6.5 mg/dL (8.4-10.2)
[2020-11-22] MEDS: PANTOPRAZOLE 80 MG in SODIUM CHLORIDE 0.9% 100 ML IV SCH ×2 (09:58→21:41)
[2020-11-22] MEDS: dexAMETHasone 4 MG/ML VIAL IV SCH (09:58)
[2020-11-22] MEDS: POTASSIUM CHLORIDE 20 MEQ 20 MEQ/100 ML BAG IV SCH ×3 (09:58→11:55)
[2020-11-22] MEDS ORDERED: DEXTROSE 5% IN WATER 1,000 ML IV SCH (10:15)
[2020-11-22] MEDS ORDERED: SODIUM CHLORIDE 0.9% 500 ML 500 ML IV SCH (11:00)
--- NOTE | 2020-11-22 12:33 | Progress Note ---
Assessment and Plan Acute hypoxemic respiratory failure on MVS COVID-19 infection Pneumonia Severe Sepsis Acute toxic metabolic encephalopathy Inadvertently placed left carotid line Acute kidney injury Nephrolithiasis Leukocytosis Metabolic acidosis Mild hypernatremia - replace Potassium aggressively - Hold CT angio abd & Pelvis till more as long as H&H stable and no gross bleeding - place NGT to LIS to monitor for G.I. bleeding - continue to hold anticoagulation re: risk benefit ratio - transfuse 1 unit PRBC to keep platelets > 50K acutely - will hold on cryoprecipitate in absence of active bleeder - continue PPI drip - wean vasopressors for MAP > 65 mmHg - continue care as below otherwise; - continue Daily SAT and SBT assessment as tolerated - continue to wean supplemental oxygen for target O2 sat's > 90% acutely - VAP bundle addressed - continue lung protective strategies - continue bronchodilators with pulmonary hygiene per RT - wean per pulmonary driven protocols otherwise - continue accuchecks with glycemic control per SSI (While critically ill target blood glucose of 140-180 mg/dL; avoid hypoglycemia) - sedation prn for target RASS 0 to -1 - avoid nephrotoxins, renally dose all medications - continue to avoid benzodiazepine's, reduce the possibility of delirium - AB's per ID rec's - prn analgesia per CPOT score - Maintenance of sleep-wake cycle, avoid delirium - continue enteral nutritional support at goal rate as tolerated - G.I. & VTE prophylaxis - PT/OT/ROM exercises - continue mobility protocols for pressure ulcer prophylaxis - Monitor hemodynamics closely - continue other care per attending / other consultants - discharge planning ongoing concurrently COVID SPECIFIC INTERVENTIONS - Remdesivir as per ID/Pulmonary developed protocols - continue systemic steroids for severe COVID-19 infection - s/p Actemra - follow repeat COVID tests results - zinc and vitamin C supplementation - Monitor inflammatory markers per facility protocol - ferritin, Ddimer, CRP - therapeutic anticoagulation per system Protocol based on d-dimer and clinical considerations (re: Carotid artery thrombus) - Continue contact and airborne isolation .... Re-evaluate in am & prn CONDITION: CRITICAL PROGNOSIS: GUARDED CODE STATUS: DNR/AND The high probability of a clinically significant, sudden or life-threatening deterioration of the [respiratory, cardiovascular, renal & neurologic] system(s) required my full and direct attention, intervention and personal management. The aggregate critical care time was [34] minutes without overlap. Time includes spent on; [x] Data Review and interpretation [x] Patient assessment and monitoring of vital signs [x] Documentation [x] Medication orders and management Subjective Date of service: 11/22/20 Principal diagnosis: Ac hypoxemic resp failure; COVID-19 infxn; Pneumonia; KATLYN; AMS; Sepsis Interval history: Patient is seen today for: Acute hypoxemic respiratory failure; COVID-19 infxn; Pneumonia; Acute toxic metabolic encephalopathy; Carotid Artery thrombus; KATLYN; Leukocytosis Seen and examined at bedside; 24hour events reviewed; nursing and respiratory care staff consulted; no adverse overnight events reported to me; resting in bed; remains on MVS; remains critically ill; no gross bleeding and serum Hb stable after receiving 4 units PRBC yesterday; remains on vasopressors; FiO2 improved; platelets are low Objective Vital Signs - 12hr 11/22/20 11/22/20 11/22/20 00:45 01:00 01:15 Temperature Pulse Rate 88 92 H 92 H Pulse Rate [ From Monitor] Respiratory 24 18 24 Rate Blood Pressure O2 Sat by Pulse 88 90 98 Oximetry 11/22/20 11/22/20 11/22/20 01:31 01:45 02:01 Temperature Pulse Rate 82 88 88 Pulse Rate [ From Monitor] Respiratory 21 20 24 Rate Blood Pressure O2 Sat by Pulse 86 88 88 Oximetry 11/22/20 11/22/20 11/22/20 02:15 02:31 02:45 Temperature Pulse Rate 85 85 90 Pulse Rate [ From Monitor] Respiratory 22 22 18 Rate Blood Pressure O2 Sat by Pulse 90 87 84 Oximetry 11/22/20 11/22/20 11/22/20 03:01 03:15 03:31 Temperature Pulse Rate 85 87 91 H Pulse Rate [ From Monitor] Respiratory 22 25 H 22 Rate Blood Pressure O2 Sat by Pulse 85 88 88 Oximetry 11/22/20 11/22/20 11/22/20 03:33 03:45 04:00 Temperature 97 F L Pulse Rate 86 Pulse Rate [ From Monitor] Respiratory 27 H Rate Blood Pressure O2 Sat by Pulse 85 97 Oximetry 11/22/20 11/22/20 11/22/20 04:01 04:15 04:31 Temperature Pulse Rate 88 99 H Pulse Rate [ From Monitor] Respiratory 24 25 H 28 H Rate Blood Pressure O2 Sat by Pulse 85 92 88 Oximetry 11/22/20 11/22/2021 04:45 05:01 05:15 Temperature Pulse Rate 103 H 101 H 102 H Pulse Rate [ From Monitor] Respiratory 20 25 H 28 H Rate Blood Pressure O2 Sat by Pulse 97 100 92 Oximetry 11/22/20 11/22/20 11/22/20 05:31 05:45 06:01 Temperature Pulse Rate 95 H 98 H 99 H Pulse Rate [ From Monitor] Respiratory 23 26 H 24 Rate Blood Pressure O2 Sat by Pulse 99 97 98 Oximetry 11/22/20 11/22/20 11/22/20 06:15 06:31 06:45 Temperature Pulse Rate 96 H 94 H 102 H Pulse Rate [ From Monitor] Respiratory 26 H 26 H 23 Rate Blood Pressure 153/58 153/58 153/58 O2 Sat by Pulse 100 99 100 Oximetry 11/22/20 11/22/20 11/22/20 07:01 07:15 07:25 Temperature 96.8 F L Pulse Rate 99 H 92 H Pulse Rate [ From Monitor] Respiratory 25 H 28 H Rate Blood Pressure 153/58 153/58 O2 Sat by Pulse 100 96 Oximetry 11/22/20 11/22/20 11/22/20 07:31 07:45 08:00 Temperature Pulse Rate 94 H 97 H 92 H Pulse Rate [ 102 H From Monitor] Respiratory 26 H 27 H 25 H Rate Blood Pressure 153/58 153/58 113/43 O2 Sat by Pulse 99 95 99 Oximetry 11/22/20 11/22/20 11/22/20 08:01 08:15 08:31 Temperature Pulse Rate 97 H 102 H 96 H Pulse Rate [ From Monitor] Respiratory 26 H 27 H 26 H Rate Blood Pressure 153/58 153/58 153/58 O2 Sat by Pulse 100 98 100 Oximetry 11/22/20 11/22/20 11/22/20 08:45 09:01 09:15 Temperature Pulse Rate 96 H 97 H 99 H Pulse Rate [ From Monitor] Respiratory 24 25 H 25 H Rate Blood Pressure 153/58 153/58 153/58 O2 Sat by Pulse 100 100 99 Oximetry 11/22/20 11/22/20 11/22/20 09:31 09:45 10:01 Temperature Pulse Rate 101 H 101 H 102 H Pulse Rate [ From Monitor] Respiratory 26 H 23 24 Rate Blood Pressure 153/58 153/58 153/58 O2 Sat by Pulse 99 99 99 Oximetry 11/22/20 11/22/20 11/22/20 10:15 10:31 10:45 Temperature Pulse Rate 98 H 96 H 92 H Pulse Rate [ From Monitor] Respiratory 29 H 27 H 25 H Rate Blood Pressure 153/58 153/58 153/58 O2 Sat by Pulse 99 99 99 Oximetry 11/22/20 11/22/20 11/22/20 11:01 11:15 11:31 Temperature Pulse Rate 89 90 90 Pulse Rate [ From Monitor] Respiratory 25 H 26 H 25 H Rate Blood Pressure 153/58 153/58 153/58 O2 Sat by Pulse 100 100 99 Oximetry 11/22/20 11/22/20 11/22/20 11:45 12:00 12:01 Temperature Pulse Rate 94 H 90 90 Pulse Rate [ 90 From Monitor] Respiratory 22 22 24 Rate Blood Pressure 153/58 153/58 O2 Sat by Pulse 100 100 100 Oximetry 11/22/20 12:23 Temperature 100.4 F H Pulse Rate Pulse Rate [ From Monitor] Respiratory Rate Blood Pressure O2 Sat by Pulse Oximetry Constitutional: appears uncomfortable, other (elderly obese female without increased respiratory effort at rest on MVS) Eyes: non-icteric ENT: oropharynx moist, other (ETT 24 cm NYA) Neck: supple, no lymphadenopathy, no JVD Effort: mildly labored Ascultation: Bilateral: diminished breath sounds, rhonchi (scant) Percussion: Bilateral: not dull Cardiovascular: regular rate and rhythm Gastrointestinal: hypoactive bowel sounds, soft, non-tender, non-distended (protuberant) Integumentary: normal Extremities: no cyanosis, pink and warm, pulses normal, edema (pedal and peripheral; 2++) Neurologic: non-focal exam (grossly), pupils equal and round (now at 6 mm), unable to assess Psychiatric: other (unable to assess re: AMS) CBC and BMP: 11/22/20 Unknown 11/22/20 Unknown ABG, PT/INR, D-dimer: ABG ABG pH 7.545 (7.320-7.450) H 11/22/20 11:00 POC ABG pCO2 29.3 mmHg (32.0-48.0) L 11/22/20 11:00 POC ABG pO2 90.8 mmHg (83-108) 11/22/20 11:00 POC ABG HCO3 24.8 11/22/20 11:00 ABG O2 Saturation 96.7 (0-100) 11/22/20 11:00 PT/INR, D-dimer PT 20.8 Sec. (12.2-14.9) H 11/22/20 02:00 INR 1.73 (0.87-1.13) H 11/22/20 02:00 D-Dimer 2595.90 ng/mlDDU (0-234) H 11/22/20 02:00 Abnormal lab findings: Abnormal Labs 11/11/20 11/11/20 11/11/20 13:39 13:39 16:59 WBC 19.5 H RBC 5.93 H Hgb 17.0 H Hct 50.6 H RDW Plt Count 449 H Lymph % (Auto) 12.0 L [place] % (Auto) 7.7 H Lymph # (Auto) [place] # (Auto) 1.5 H Seg Neutrophils % 80.0 H Seg Neuts % (Manual) Lymphocytes % (Manual) Monocytes % (Manual) Seg Neutrophils # 15.6 H Seg Neutrophils # Man Lymphocytes # (Manual) Monocytes # (Manual) PT INR Fibrinogen D-Dimer 1525.92 H Heparin Anti-Xa Level ABG pH POC ABG pCO2 POC ABG pO2 ABG Hemoglobin ABG Oxyhemoglobin ABG Sodium ABG Potassium ABG Chloride ABG Glucose Carboxyhemoglobin Sodium Potassium 3.5 L Chloride 97.3 L Carbon Dioxide BUN 30 H Creatinine 0.5 L Glucose 128 H POC Glucose Hemoglobin A1c Lactic Acid Calcium Phosphorus Magnesium Ferritin Total Bilirubin AST ALT Lactate Dehydrogenase C-Reactive Protein Total Protein Albumin 3.8 L Arterial Blood Glucose Arterial Blood Ionized Calcium Urine WBC (Auto) U Epithel Cells (Auto) Urine Creatinine Coronavirus (PCR) Crossmatch 11/11/20 11/11/20 11/11/20 16:59 17:12 Unknown WBC RBC Hgb Hct RDW Plt Count Lymph % (Auto) [place] % (Auto) Lymph # (Auto) [place] # (Auto) Seg Neutrophils % Seg Neuts % (Manual) Lymphocytes % (Manual) Monocytes % (Manual) Seg Neutrophils # Seg Neutrophils # Man Lymphocytes # (Manual) Monocytes # (Manual) PT INR Fibrinogen D-Dimer Heparin Anti-Xa Level ABG pH 7.501 H POC ABG pCO2 POC ABG pO2 55.0 L ABG Hemoglobin ABG Oxyhemoglobin 89.5 L ABG Sodium ABG Potassium 3.2 L ABG Chloride ABG Glucose 131 H Carboxyhemoglobin Sodium Potassium Chloride Carbon Dioxide BUN Creatinine Glucose 117 H POC Glucose Hemoglobin A1c Lactic Acid Calcium Phosphorus Magnesium Ferritin Total Bilirubin AST ALT Lactate Dehydrogenase 204 H C-Reactive Protein Total Protein Albumin Arterial Blood Glucose 131 H Arterial Blood Ionized Calcium Urine WBC (Auto) U Epithel Cells (Auto) Urine Creatinine Coronavirus (PCR) Positive A Crossmatch 11/12/20 11/12/20 11/12/20 05:07 05:07 05:07 WBC 16.7 H RBC 5.74 H Hgb 16.6 H Hct 50.3 H RDW Plt Count 450 H Lymph % (Auto) 12.1 L [place] % (Auto) 7.5 H Lymph # (Auto) [place] # (Auto) 1.3 H Seg Neutrophils % 77.9 H Seg Neuts % (Manual) Lymphocytes % (Manual) Monocytes % (Manual) Seg Neutrophils # 13.0 H Seg Neutrophils # Man Lymphocytes # (Manual) Monocytes # (Manual) PT INR Fibrinogen D-Dimer Heparin Anti-Xa Level ABG pH POC ABG pCO2 POC ABG pO2 ABG Hemoglobin ABG Oxyhemoglobin ABG Sodium ABG Potassium ABG Chloride ABG Glucose Carboxyhemoglobin Sodium 147 H Potassium Chloride Carbon Dioxide 35 H D BUN 34 H Creatinine Glucose 117 H POC Glucose Hemoglobin A1c 6.6 H Lactic Acid Calcium 11.1 H Phosphorus Magnesium Ferritin Total Bilirubin AST ALT Lactate Dehydrogenase C-Reactive Protein Total Protein Albumin Arterial Blood Glucose Arterial Blood Ionized Calcium Urine WBC (Auto) U Epithel Cells (Auto) Urine Creatinine Coronavirus (PCR) Crossmatch 11/12/20 11/13/20 11/13/20 23:58 01:36 04:00 WBC RBC Hgb Hct RDW Plt Count Lymph % (Auto) [place] % (Auto) Lymph # (Auto) [place] # (Auto) Seg Neutrophils % Seg Neuts % (Manual) Lymphocytes % (Manual) Monocytes % (Manual) Seg Neutrophils # Seg Neutrophils # Man Lymphocytes # (Manual) Monocytes # (Manual) PT INR Fibrinogen D-Dimer Heparin Anti-Xa Level ABG pH POC ABG pCO2 POC ABG pO2 ABG Hemoglobin ABG Oxyhemoglobin ABG Sodium 147.3 H ABG Potassium 3.2 L ABG Chloride 109.0 H ABG Glucose 118 H Carboxyhemoglobin 0.3 L Sodium Potassium 3.1 L Chloride Carbon Dioxide BUN 64 H Creatinine 2.2 H D Glucose 105 H POC Glucose 181 H Hemoglobin A1c Lactic Acid Calcium 8.3 L D Phosphorus Magnesium Ferritin Total Bilirubin AST 366 H ALT 316 H Lactate Dehydrogenase C-Reactive Protein Total Protein 5.4 L D Albumin 2.5 L Arterial Blood Glucose 118 H Arterial Blood Ionized Calcium Urine WBC (Auto) U Epithel Cells (Auto) Urine Creatinine Coronavirus (PCR) Crossmatch 11/13/20 11/13/20 11/13/20 05:23 08:22 09:51 WBC 15.9 H RBC Hgb Hct 44.4 H RDW Plt Count Lymph % (Auto) 5.7 L [place] % (Auto) 9.0 H Lymph # (Auto) 0.9 L [place] # (Auto) 1.4 H Seg Neutrophils % 85.3 H Seg Neuts % (Manual) Lymphocytes % (Manual) Monocytes % (Manual) Seg Neutrophils # 13.6 H Seg Neutrophils # Man Lymphocytes # (Manual) Monocytes # (Manual) PT 16.0 H INR 1.23 H Fibrinogen D-Dimer Heparin Anti-Xa Level ABG pH 7.243 L POC ABG pCO2 POC ABG pO2 82.0 L ABG Hemoglobin ABG Oxyhemoglobin 93.5 L ABG Sodium 146.6 H ABG Potassium 2.8 L ABG Chloride 114.0 H ABG Glucose 113 H Carboxyhemoglobin 0.4 L Sodium Potassium Chloride Carbon Dioxide BUN Creatinine Glucose POC Glucose Hemoglobin A1c Lactic Acid Calcium Phosphorus Magnesium Ferritin Total Bilirubin AST ALT Lactate Dehydrogenase C-Reactive Protein Total Protein Albumin Arterial Blood Glucose 113 H Arterial Blood Ionized Calcium Urine WBC (Auto) U Epithel Cells (Auto) Urine Creatinine Coronavirus (PCR) Crossmatch 11/13/20 11/13/20 11/13/20 09:51 09:51 09:51 WBC RBC Hgb Hct RDW Plt Count Lymph % (Auto) [place] % (Auto) Lymph # (Auto) [place] # (Auto) Seg Neutrophils % Seg Neuts % (Manual) Lymphocytes % (Manual) Monocytes % (Manual) Seg Neutrophils # Seg Neutrophils # Man Lymphocytes # (Manual) Monocytes # (Manual) PT INR Fibrinogen D-Dimer 5682.19 H Heparin Anti-Xa Level ABG pH POC ABG pCO2 POC ABG pO2 ABG Hemoglobin ABG Oxyhemoglobin ABG Sodium ABG Potassium ABG Chloride ABG Glucose Carboxyhemoglobin Sodium Potassium Chloride Carbon Dioxide BUN Creatinine Glucose 104 H POC Glucose Hemoglobin A1c Lactic Acid Calcium Phosphorus Magnesium Ferritin 1003.0 H Total Bilirubin AST ALT Lactate Dehydrogenase 1022 H C-Reactive Protein 5.50 H Total Protein Albumin Arterial Blood Glucose Arterial Blood Ionized Calcium Urine WBC (Auto) U Epithel Cells (Auto) Urine Creatinine Coronavirus (PCR) Crossmatch 11/13/20 11/14/20 11/14/20 21:50 00:50 04:25 WBC RBC Hgb Hct RDW Plt Count Lymph % (Auto) [place] % (Auto) Lymph # (Auto) [place] # (Auto) Seg Neutrophils % Seg Neuts % (Manual) Lymphocytes % (Manual) Monocytes % (Manual) Seg Neutrophils # Seg Neutrophils # Man Lymphocytes # (Manual) Monocytes # (Manual) PT INR Fibrinogen D-Dimer Heparin Anti-Xa Level 0.91 H ABG pH 7.215 L POC ABG pCO2 POC ABG pO2 ABG Hemoglobin ABG Oxyhemoglobin ABG Sodium 147.3 H ABG Potassium ABG Chloride 119.0 H ABG Glucose 156 H Carboxyhemoglobin Sodium Potassium Chloride Carbon Dioxide BUN Creatinine Glucose POC Glucose 59 L Hemoglobin A1c Lactic Acid Calcium Phosphorus Magnesium Ferritin Total Bilirubin AST ALT Lactate Dehydrogenase C-Reactive Protein Total Protein Albumin Arterial Blood Glucose 156 H Arterial Blood Ionized Calcium 4.3 L Urine WBC (Auto) U Epithel Cells (Auto) Urine Creatinine Coronavirus (PCR) Crossmatch 11/14/20 11/14/20 11/14/20 04:35 04:35 06:15 WBC RBC Hgb Hct 43.9 H RDW 15.3 H Plt Count Lymph % (Auto) [place] % (Auto) Lymph # (Auto) [place] # (Auto) Seg Neutrophils % Seg Neuts % (Manual) Lymphocytes % (Manual) Monocytes % (Manual) Seg Neutrophils # Seg Neutrophils # Man Lymphocytes # (Manual) Monocytes # (Manual) PT INR Fibrinogen D-Dimer Heparin Anti-Xa Level ABG pH POC ABG pCO2 POC ABG pO2 ABG Hemoglobin ABG Oxyhemoglobin ABG Sodium ABG Potassium ABG Chloride ABG Glucose Carboxyhemoglobin Sodium 151 H D Potassium Chloride 116.8 H Carbon Dioxide 18 L BUN 64 H Creatinine 2.1 H Glucose 148 H POC Glucose Hemoglobin A1c Lactic Acid Calcium 7.3 L Phosphorus Magnesium Ferritin Total Bilirubin AST ALT Lactate Dehydrogenase C-Reactive Protein 38.00 H Total Protein Albumin Arterial Blood Glucose Arterial Blood Ionized Calcium Urine WBC (Auto) > 182.0 H U Epithel Cells (Auto) 24.0 H Urine Creatinine Coronavirus (PCR) Crossmatch 11/14/20 11/14/20 11/14/20 06:15 06:15 12:01 WBC RBC Hgb Hct RDW Plt Count Lymph % (Auto) [place] % (Auto) Lymph # (Auto) [place] # (Auto) Seg Neutrophils % Seg Neuts % (Manual) Lymphocytes % (Manual) Monocytes % (Manual) Seg Neutrophils # Seg Neutrophils # Man Lymphocytes # (Manual) Monocytes # (Manual) PT INR Fibrinogen D-Dimer Heparin Anti-Xa Level 1.16 H ABG pH POC ABG pCO2 POC ABG pO2 ABG Hemoglobin ABG Oxyhemoglobin ABG Sodium ABG Potassium ABG Chloride ABG Glucose Carboxyhemoglobin Sodium Potassium Chloride Carbon Dioxide BUN Creatinine Glucose POC Glucose 107 H Hemoglobin A1c Lactic Acid Calcium Phosphorus Magnesium Ferritin Total Bilirubin AST ALT Lactate Dehydrogenase C-Reactive Protein Total Protein Albumin Arterial Blood Glucose Arterial Blood Ionized Calcium Urine WBC (Auto) U Epithel Cells (Auto) Urine Creatinine 80.2 H Coronavirus (PCR) Crossmatch 11/14/20 11/14/20 11/14/20 17:18 23:00 23:25 WBC RBC Hgb Hct RDW Plt Count Lymph % (Auto) [place] % (Auto) Lymph # (Auto) [place] # (Auto) Seg Neutrophils % Seg Neuts % (Manual) Lymphocytes % (Manual) Monocytes % (Manual) Seg Neutrophils # Seg Neutrophils # Man Lymphocytes # (Manual) Monocytes # (Manual) PT INR Fibrinogen D-Dimer Heparin Anti-Xa Level 0.96 H ABG pH POC ABG pCO2 POC ABG pO2 ABG Hemoglobin ABG Oxyhemoglobin ABG Sodium ABG Potassium ABG Chloride ABG Glucose Carboxyhemoglobin Sodium Potassium Chloride Carbon Dioxide BUN Creatinine Glucose POC Glucose 173 H 158 H Hemoglobin A1c Lactic Acid Calcium Phosphorus Magnesium Ferritin Total Bilirubin AST ALT Lactate Dehydrogenase C-Reactive Protein Total Protein Albumin Arterial Blood Glucose Arterial Blood Ionized Calcium Urine WBC (Auto) U Epithel Cells (Auto) Urine Creatinine Coronavirus (PCR) Crossmatch 11/15/20 11/15/20 11/15/20 01:45 04:57 04:57 WBC RBC Hgb Hct RDW 16.2 H Plt Count Lymph % (Auto) [place] % (Auto) Lymph # (Auto) [place] # (Auto) Seg Neutrophils % Seg Neuts % (Manual) Lymphocytes % (Manual) Monocytes % (Manual) Seg Neutrophils # Seg Neutrophils # Man Lymphocytes # (Manual) Monocytes # (Manual) PT INR Fibrinogen D-Dimer Heparin Anti-Xa Level ABG pH 7.246 L POC ABG pCO2 28.4 L POC ABG pO2 ABG Hemoglobin ABG Oxyhemoglobin ABG Sodium ABG Potassium ABG Chloride 116.0 H ABG Glucose 164 H Carboxyhemoglobin Sodium 147 H Potassium Chloride 114.0 H Carbon Dioxide 16 L BUN 68 H Creatinine 2.4 H Glucose 148 H POC Glucose Hemoglobin A1c Lactic Acid Calcium 7.3 L Phosphorus Magnesium Ferritin Total Bilirubin AST 395 H ALT 396 H Lactate Dehydrogenase 596 H C-Reactive Protein 34.50 H Total Protein 5.1 L Albumin 2.1 L Arterial Blood Glucose 164 H Arterial Blood Ionized Calcium 4.3 L Urine WBC (Auto) U Epithel Cells (Auto) Urine Creatinine Coronavirus (PCR) Crossmatch 11/15/20 11/15/20 11/15/20 04:57 04:57 05:20 WBC RBC Hgb Hct RDW Plt Count Lymph % (Auto) [place] % (Auto) Lymph # (Auto) [place] # (Auto) Seg Neutrophils % Seg Neuts % (Manual) Lymphocytes % (Manual) Monocytes % (Manual) Seg Neutrophils # Seg Neutrophils # Man Lymphocytes # (Manual) Monocytes # (Manual) PT INR Fibrinogen D-Dimer 3313.42 H Heparin Anti-Xa Level 0.81 H ABG pH POC ABG pCO2 POC ABG pO2 ABG Hemoglobin ABG Oxyhemoglobin ABG Sodium ABG Potassium ABG Chloride ABG Glucose Carboxyhemoglobin Sodium Potassium Chloride Carbon Dioxide BUN Creatinine Glucose POC Glucose 124 H Hemoglobin A1c Lactic Acid 3.00 H* Calcium Phosphorus Magnesium Ferritin Total Bilirubin AST ALT Lactate Dehydrogenase C-Reactive Protein Total Protein Albumin Arterial Blood Glucose Arterial Blood Ionized Calcium Urine WBC (Auto) U Epithel Cells (Auto) Urine Creatinine Coronavirus (PCR) Crossmatch 11/15/20 11/15/20 11/15/20 08:26 08:26 11:34 WBC RBC Hgb Hct RDW Plt Count Lymph % (Auto) [place] % (Auto) Lymph # (Auto) [place] # (Auto) Seg Neutrophils % Seg Neuts % (Manual) Lymphocytes % (Manual) Monocytes % (Manual) Seg Neutrophils # Seg Neutrophils # Man Lymphocytes # (Manual) Monocytes # (Manual) PT INR Fibrinogen D-Dimer Heparin Anti-Xa Level ABG pH POC ABG pCO2 POC ABG pO2 ABG Hemoglobin ABG Oxyhemoglobin ABG Sodium ABG Potassium ABG Chloride ABG Glucose Carboxyhemoglobin Sodium Potassium Chloride Carbon Dioxide BUN Creatinine Glucose POC Glucose 113 H Hemoglobin A1c Lactic Acid 2.60 H* Calcium Phosphorus Magnesium Ferritin 452.8 H Total Bilirubin AST ALT Lactate Dehydrogenase C-Reactive Protein Total Protein Albumin Arterial Blood Glucose Arterial Blood Ionized Calcium Urine WBC (Auto) U Epithel Cells (Auto) Urine Creatinine Coronavirus (PCR) Crossmatch 11/15/20 11/15/20 11/16/20 16:43 23:16 03:39 WBC RBC Hgb Hct RDW Plt Count Lymph % (Auto) [place] % (Auto) Lymph # (Auto) [place] # (Auto) Seg Neutrophils % Seg Neuts % (Manual) Lymphocytes % (Manual) Monocytes % (Manual) Seg Neutrophils # Seg Neutrophils # Man Lymphocytes # (Manual) Monocytes # (Manual) PT INR Fibrinogen D-Dimer Heparin Anti-Xa Level ABG pH 7.261 L POC ABG pCO2 31.2 L POC ABG pO2 117.3 H ABG Hemoglobin ABG Oxyhemoglobin ABG Sodium 135.8 L ABG Potassium ABG Chloride 112.0 H ABG Glucose 148 H Carboxyhemoglobin 0.4 L Sodium Potassium Chloride Carbon Dioxide BUN Creatinine Glucose POC Glucose 107 H 113 H Hemoglobin A1c Lactic Acid Calcium Phosphorus Magnesium Ferritin Total Bilirubin AST ALT Lactate Dehydrogenase C-Reactive Protein Total Protein Albumin Arterial Blood Glucose 148 H Arterial Blood Ionized Calcium 4.1 L Urine WBC (Auto) U Epithel Cells (Auto) Urine Creatinine Coronavirus (PCR) Crossmatch 11/16/20 11/16/20 11/16/20 04:51 11:28 17:15 WBC RBC Hgb Hct RDW Plt Count Lymph % (Auto) [place] % (Auto) Lymph # (Auto) [place] # (Auto) Seg Neutrophils % Seg Neuts % (Manual) Lymphocytes % (Manual) Monocytes % (Manual) Seg Neutrophils # Seg Neutrophils # Man Lymphocytes # (Manual) Monocytes # (Manual) PT INR Fibrinogen D-Dimer Heparin Anti-Xa Level ABG pH POC ABG pCO2 POC ABG pO2 ABG Hemoglobin ABG Oxyhemoglobin ABG Sodium ABG Potassium ABG Chloride ABG Glucose Carboxyhemoglobin Sodium Potassium Chloride Carbon Dioxide BUN Creatinine Glucose POC Glucose 119 H 144 H 139 H Hemoglobin A1c Lactic Acid Calcium Phosphorus Magnesium Ferritin Total Bilirubin AST ALT Lactate Dehydrogenase C-Reactive Protein Total Protein Albumin Arterial Blood Glucose Arterial Blood Ionized Calcium Urine WBC (Auto) U Epithel Cells (Auto) Urine Creatinine Coronavirus (PCR) Crossmatch 11/16/20 11/16/20 11/16/20 23:50 Unknown Unknown WBC RBC Hgb Hct RDW Plt Count Lymph % (Auto) [place] % (Auto) Lymph # (Auto) [place] # (Auto) Seg Neutrophils % Seg Neuts % (Manual) Lymphocytes % (Manual) Monocytes % (Manual) Seg Neutrophils # Seg Neutrophils # Man Lymphocytes # (Manual) Monocytes # (Manual) PT INR Fibrinogen D-Dimer Heparin Anti-Xa Level ABG pH POC ABG pCO2 POC ABG pO2 ABG Hemoglobin ABG Oxyhemoglobin ABG Sodium ABG Potassium ABG Chloride ABG Glucose Carboxyhemoglobin Sodium Potassium 3.5 L Chloride 109.7 H Carbon Dioxide 15 L BUN 65 H Creatinine 2.2 H Glucose 174 H POC Glucose 132 H Hemoglobin A1c Lactic Acid 2.10 H* Calcium 6.1 L D Phosphorus Magnesium Ferritin Total Bilirubin AST 171 H ALT 268 H Lactate Dehydrogenase C-Reactive Protein Total Protein 4.3 L Albumin 1.9 L Arterial Blood Glucose Arterial Blood Ionized Calcium Urine WBC (Auto) U Epithel Cells (Auto) Urine Creatinine Coronavirus (PCR) Crossmatch 11/17/20 11/17/20 11/17/20 03:14 04:00 05:09 WBC RBC Hgb Hct RDW Plt Count 123 L Lymph % (Auto) [place] % (Auto) Lymph # (Auto) [place] # (Auto) Seg Neutrophils % Seg Neuts % (Manual) Lymphocytes % (Manual) Monocytes % (Manual) Seg Neutrophils # Seg Neutrophils # Man Lymphocytes # (Manual) Monocytes # (Manual) PT INR Fibrinogen D-Dimer Heparin Anti-Xa Level ABG pH 7.498 H POC ABG pCO2 27.2 L POC ABG pO2 110.6 H ABG Hemoglobin 11.6 L ABG Oxyhemoglobin ABG Sodium 135.4 L ABG Potassium ABG Chloride ABG Glucose 131 H Carboxyhemoglobin Sodium Potassium Chloride Carbon Dioxide BUN Creatinine Glucose POC Glucose 119 H Hemoglobin A1c Lactic Acid Calcium Phosphorus Magnesium Ferritin Total Bilirubin AST ALT Lactate Dehydrogenase C-Reactive Protein Total Protein Albumin Arterial Blood Glucose 131 H Arterial Blood Ionized Calcium 3.7 L Urine WBC (Auto) U Epithel Cells (Auto) Urine Creatinine Coronavirus (PCR) Crossmatch 11/17/20 11/17/20 11/17/20 09:59 09:59 09:59 WBC RBC Hgb Hct RDW Plt Count Lymph % (Auto) [place] % (Auto) Lymph # (Auto) [place] # (Auto) Seg Neutrophils % Seg Neuts % (Manual) Lymphocytes % (Manual) Monocytes % (Manual) Seg Neutrophils # Seg Neutrophils # Man Lymphocytes # (Manual) Monocytes # (Manual) PT INR Fibrinogen D-Dimer 1401.08 H Heparin Anti-Xa Level ABG pH POC ABG pCO2 POC ABG pO2 ABG Hemoglobin ABG Oxyhemoglobin ABG Sodium ABG Potassium ABG Chloride ABG Glucose Carboxyhemoglobin Sodium Potassium Chloride Carbon Dioxide BUN Creatinine Glucose 127 H POC Glucose Hemoglobin A1c Lactic Acid Calcium Phosphorus Magnesium Ferritin 224.1 H Total Bilirubin AST ALT Lactate Dehydrogenase 515 H C-Reactive Protein 4.80 H Total Protein Albumin Arterial Blood Glucose Arterial Blood Ionized Calcium Urine WBC (Auto) U Epithel Cells (Auto) Urine Creatinine Coronavirus (PCR) Crossmatch 11/17/20 11/17/20 11/17/20 11:28 16:26 18:00 WBC RBC Hgb Hct RDW Plt Count Lymph % (Auto) [place] % (Auto) Lymph # (Auto) [place] # (Auto) Seg Neutrophils % Seg Neuts % (Manual) Lymphocytes % (Manual) Monocytes % (Manual) Seg Neutrophils # Seg Neutrophils # Man Lymphocytes # (Manual) Monocytes # (Manual) PT INR Fibrinogen D-Dimer Heparin Anti-Xa Level 0.10 L ABG pH POC ABG pCO2 POC ABG pO2 ABG Hemoglobin ABG Oxyhemoglobin ABG Sodium ABG Potassium ABG Chloride ABG Glucose Carboxyhemoglobin Sodium Potassium Chloride Carbon Dioxide BUN Creatinine Glucose POC Glucose 114 H 121 H Hemoglobin A1c Lactic Acid Calcium Phosphorus Magnesium Ferritin Total Bilirubin AST ALT Lactate Dehydrogenase C-Reactive Protein Total Protein Albumin Arterial Blood Glucose Arterial Blood Ionized Calcium Urine WBC (Auto) U Epithel Cells (Auto) Urine Creatinine Coronavirus (PCR) Crossmatch 11/17/20 11/17/20 11/18/20 21:37 Unknown 02:11 WBC RBC Hgb Hct RDW Plt Count Lymph % (Auto) [place] % (Auto) Lymph # (Auto) [place] # (Auto) Seg Neutrophils % Seg Neuts % (Manual) Lymphocytes % (Manual) Monocytes % (Manual) Seg Neutrophils # Seg Neutrophils # Man Lymphocytes # (Manual) Monocytes # (Manual) PT INR Fibrinogen D-Dimer Heparin Anti-Xa Level ABG pH POC ABG pCO2 POC ABG pO2 ABG Hemoglobin ABG Oxyhemoglobin ABG Sodium ABG Potassium ABG Chloride ABG Glucose Carboxyhemoglobin Sodium 146 H D Potassium 3.5 L Chloride Carbon Dioxide BUN 67 H 62 H Creatinine 1.8 H 1.7 H Glucose 129 H 109 H POC Glucose 118 H Hemoglobin A1c Lactic Acid Calcium 6.5 L 5.7 L* Phosphorus Magnesium 1.20 L Ferritin Total Bilirubin AST ALT Lactate Dehydrogenase C-Reactive Protein Total Protein Albumin Arterial Blood Glucose Arterial Blood Ionized Calcium Urine WBC (Auto) U Epithel Cells (Auto) Urine Creatinine Coronavirus (PCR) Crossmatch 11/18/20 11/18/20 11/18/20 02:38 04:44 17:09 WBC RBC Hgb Hct RDW Plt Count Lymph % (Auto) [place] % (Auto) Lymph # (Auto) [place] # (Auto) Seg Neutrophils % Seg Neuts % (Manual) Lymphocytes % (Manual) Monocytes % (Manual) Seg Neutrophils # Seg Neutrophils # Man Lymphocytes # (Manual) Monocytes # (Manual) PT INR Fibrinogen D-Dimer Heparin Anti-Xa Level ABG pH 7.565 H POC ABG pCO2 30.4 L POC ABG pO2 72.0 L ABG Hemoglobin 11.4 L ABG Oxyhemoglobin ABG Sodium 134.1 L ABG Potassium 2.9 L ABG Chloride ABG Glucose 110 H Carboxyhemoglobin 0.3 L Sodium Potassium Chloride Carbon Dioxide BUN Creatinine Glucose POC Glucose 109 H 125 H Hemoglobin A1c Lactic Acid Calcium Phosphorus Magnesium Ferritin Total Bilirubin AST ALT Lactate Dehydrogenase C-Reactive Protein Total Protein Albumin Arterial Blood Glucose 110 H Arterial Blood Ionized Calcium 3.4 L Urine WBC (Auto) U Epithel Cells (Auto) Urine Creatinine Coronavirus (PCR) Crossmatch 11/19/20 11/19/20 11/19/20 03:19 04:00 04:00 WBC 14.3 H RBC 3.61 L Hgb Hct RDW Plt Count Lymph % (Auto) [place] % (Auto) Lymph # (Auto) [place] # (Auto) Seg Neutrophils % Seg Neuts % (Manual) 77.0 H Lymphocytes % (Manual) 13.0 L Monocytes % (Manual) 10.0 H Seg Neutrophils # Seg Neutrophils # Man 11.0 H Lymphocytes # (Manual) Monocytes # (Manual) 1.4 H PT INR Fibrinogen D-Dimer Heparin Anti-Xa Level ABG pH 7.577 H POC ABG pCO2 28.0 L POC ABG pO2 57.4 L ABG Hemoglobin 10.6 L ABG Oxyhemoglobin 90.3 L ABG Sodium ABG Potassium 2.8 L ABG Chloride ABG Glucose 102 H Carboxyhemoglobin 0.3 L Sodium Potassium 2.9 L* D Chloride Carbon Dioxide 31 H BUN 51 H Creatinine Glucose POC Glucose Hemoglobin A1c Lactic Acid Calcium 6.7 L D Phosphorus 1.90 L Magnesium Ferritin Total Bilirubin AST ALT Lactate Dehydrogenase 634 H C-Reactive Protein 1.40 H Total Protein Albumin Arterial Blood Glucose 102 H Arterial Blood Ionized Calcium 3.7 L Urine WBC (Auto) U Epithel Cells (Auto) Urine Creatinine Coronavirus (PCR) Crossmatch 11/19/20 11/19/20 11/19/20 04:00 10:33 14:10 WBC RBC Hgb 8.9 L Hct 27.0 L RDW Plt Count Lymph % (Auto) [place] % (Auto) Lymph # (Auto) [place] # (Auto) Seg Neutrophils % Seg Neuts % (Manual) Lymphocytes % (Manual) Monocytes % (Manual) Seg Neutrophils # Seg Neutrophils # Man Lymphocytes # (Manual) Monocytes # (Manual) PT INR Fibrinogen D-Dimer 1808.23 H Heparin Anti-Xa Level ABG pH POC ABG pCO2 POC ABG pO2 ABG Hemoglobin ABG Oxyhemoglobin ABG Sodium ABG Potassium ABG Chloride ABG Glucose Carboxyhemoglobin Sodium Potassium Chloride Carbon Dioxide BUN Creatinine Glucose POC Glucose 109 H Hemoglobin A1c Lactic Acid Calcium Phosphorus Magnesium Ferritin Total Bilirubin AST ALT Lactate Dehydrogenase C-Reactive Protein Total Protein Albumin Arterial Blood Glucose Arterial Blood Ionized Calcium Urine WBC (Auto) U Epithel Cells (Auto) Urine Creatinine Coronavirus (PCR) Crossmatch 11/19/20 11/19/20 11/19/20 17:28 19:45 19:45 WBC 22.7 H RBC 3.14 L Hgb 9.0 L Hct 27.2 L RDW Plt Count Lymph % (Auto) [place] % (Auto) Lymph # (Auto) [place] # (Auto) Seg Neutrophils % Seg Neuts % (Manual) Lymphocytes % (Manual) Monocytes % (Manual) Seg Neutrophils # Seg Neutrophils # Man Lymphocytes # (Manual) Monocytes # (Manual) PT 24.6 H INR 2.18 H Fibrinogen D-Dimer Heparin Anti-Xa Level ABG pH POC ABG pCO2 POC ABG pO2 ABG Hemoglobin ABG Oxyhemoglobin ABG Sodium ABG Potassium ABG Chloride ABG Glucose Carboxyhemoglobin Sodium Potassium Chloride Carbon Dioxide BUN Creatinine Glucose POC Glucose 186 H Hemoglobin A1c Lactic Acid Calcium Phosphorus Magnesium Ferritin Total Bilirubin AST ALT Lactate Dehydrogenase C-Reactive Protein Total Protein Albumin Arterial Blood Glucose Arterial Blood Ionized Calcium Urine WBC (Auto) U Epithel Cells (Auto) Urine Creatinine Coronavirus (PCR) Crossmatch 11/19/20 11/19/20 11/19/20 19:45 19:45 19:45 WBC RBC Hgb Hct RDW Plt Count Lymph % (Auto) [place] % (Auto) Lymph # (Auto) [place] # (Auto) Seg Neutrophils % Seg Neuts % (Manual) Lymphocytes % (Manual) Monocytes % (Manual) Seg Neutrophils # Seg Neutrophils # Man Lymphocytes # (Manual) Monocytes # (Manual) PT INR Fibrinogen D-Dimer Heparin Anti-Xa Level ABG pH POC ABG pCO2 POC ABG pO2 ABG Hemoglobin ABG Oxyhemoglobin ABG Sodium ABG Potassium ABG Chloride ABG Glucose Carboxyhemoglobin Sodium Potassium Chloride Carbon Dioxide BUN 58 H Creatinine Glucose 192 H POC Glucose Hemoglobin A1c Lactic Acid 2.20 H* Calcium 6.9 L Phosphorus Magnesium Ferritin Total Bilirubin AST 119 H ALT 143 H Lactate Dehydrogenase C-Reactive Protein Total Protein 4.0 L Albumin 2.3 L Arterial Blood Glucose Arterial Blood Ionized Calcium Urine WBC (Auto) U Epithel Cells (Auto) Urine Creatinine Coronavirus (PCR) Crossmatch See Detail 11/19/20 11/19/20 11/19/20 22:00 23:25 23:45 WBC RBC Hgb Hct RDW Plt Count Lymph % (Auto) [place] % (Auto) Lymph # (Auto) [place] # (Auto) Seg Neutrophils % Seg Neuts % (Manual) Lymphocytes % (Manual) Monocytes % (Manual) Seg Neutrophils # Seg Neutrophils # Man Lymphocytes # (Manual) Monocytes # (Manual) PT INR Fibrinogen D-Dimer Heparin Anti-Xa Level > 2.00 H ABG pH POC ABG pCO2 POC ABG pO2 ABG Hemoglobin ABG Oxyhemoglobin ABG Sodium ABG Potassium ABG Chloride ABG Glucose Carboxyhemoglobin Sodium Potassium Chloride Carbon Dioxide BUN Creatinine Glucose POC Glucose 155 H Hemoglobin A1c Lactic Acid Calcium Phosphorus Magnesium Ferritin Total Bilirubin AST ALT Lactate Dehydrogenase C-Reactive Protein Total Protein Albumin Arterial Blood Glucose Arterial Blood Ionized Calcium Urine WBC (Auto) > 182.0 H U Epithel Cells (Auto) Urine Creatinine Coronavirus (PCR) Crossmatch 11/20/20 11/20/20 11/20/20 04:00 04:09 04:09 WBC 20.9 H RBC 3.48 L Hgb 10.0 L Hct 30.1 L RDW Plt Count Lymph % (Auto) [place] % (Auto) Lymph # (Auto) [place] # (Auto) Seg Neutrophils % Seg Neuts % (Manual) 77.0 H Lymphocytes % (Manual) 3.0 L Monocytes % (Manual) Seg Neutrophils # Seg Neutrophils # Man 16.1 H Lymphocytes # (Manual) 0.6 L Monocytes # (Manual) PT INR Fibrinogen D-Dimer Heparin Anti-Xa Level ABG pH 7.595 H POC ABG pCO2 25.2 L POC ABG pO2 69.0 L ABG Hemoglobin 9.8 L ABG Oxyhemoglobin ABG Sodium ABG Potassium ABG Chloride 110.0 H ABG Glucose 178 H Carboxyhemoglobin 0.2 L Sodium 147 H Potassium Chloride 107.8 H Carbon Dioxide BUN 63 H Creatinine 1.3 H Glucose 151 H POC Glucose Hemoglobin A1c Lactic Acid Calcium 6.3 L Phosphorus Magnesium Ferritin Total Bilirubin AST ALT Lactate Dehydrogenase C-Reactive Protein Total Protein Albumin Arterial Blood Glucose 178 H Arterial Blood Ionized Calcium 3.7 L Urine WBC (Auto) U Epithel Cells (Auto) Urine Creatinine Coronavirus (PCR) Crossmatch 11/20/20 11/20/20 11/20/20 05:13 09:57 09:57 WBC RBC Hgb 9.4 L Hct 28.5 L RDW Plt Count Lymph % (Auto) [place] % (Auto) Lymph # (Auto) [place] # (Auto) Seg Neutrophils % Seg Neuts % (Manual) Lymphocytes % (Manual) Monocytes % (Manual) Seg Neutrophils # Seg Neutrophils # Man Lymphocytes # (Manual) Monocytes # (Manual) PT INR Fibrinogen D-Dimer Heparin Anti-Xa Level ABG pH POC ABG pCO2 POC ABG pO2 ABG Hemoglobin ABG Oxyhemoglobin ABG Sodium ABG Potassium ABG Chloride ABG Glucose Carboxyhemoglobin Sodium Potassium Chloride Carbon Dioxide BUN Creatinine Glucose POC Glucose 126 H Hemoglobin A1c Lactic Acid Calcium Phosphorus 5.40 H D Magnesium Ferritin Total Bilirubin AST ALT Lactate Dehydrogenase C-Reactive Protein Total Protein Albumin Arterial Blood Glucose Arterial Blood Ionized Calcium Urine WBC (Auto) U Epithel Cells (Auto) Urine Creatinine Coronavirus (PCR) Crossmatch 11/20/20 11/20/20 11/20/20 12:07 17:52 20:48 WBC RBC Hgb Hct RDW Plt Count Lymph % (Auto) [place] % (Auto) Lymph # (Auto) [place] # (Auto) Seg Neutrophils % Seg Neuts % (Manual) Lymphocytes % (Manual) Monocytes % (Manual) Seg Neutrophils # Seg Neutrophils # Man Lymphocytes # (Manual) Monocytes # (Manual) PT INR Fibrinogen D-Dimer Heparin Anti-Xa Level ABG pH 7.468 H POC ABG pCO2 25.5 L POC ABG pO2 ABG Hemoglobin 7.6 L ABG Oxyhemoglobin ABG Sodium ABG Potassium ABG Chloride 111.0 H ABG Glucose 190 H Carboxyhemoglobin Sodium Potassium Chloride Carbon Dioxide BUN Creatinine Glucose POC Glucose 121 H 154 H Hemoglobin A1c Lactic Acid Calcium Phosphorus Magnesium Ferritin Total Bilirubin AST ALT Lactate Dehydrogenase C-Reactive Protein Total Protein Albumin Arterial Blood Glucose 190 H Arterial Blood Ionized Calcium 3.8 L Urine WBC (Auto) U Epithel Cells (Auto) Urine Creatinine Coronavirus (PCR) Crossmatch 11/20/20 11/21/20 11/21/20 23:01 00:27 00:27 WBC RBC Hgb 7.0 L Hct 21.9 L D RDW Plt Count Lymph % (Auto) [place] % (Auto) Lymph # (Auto) [place] # (Auto) Seg Neutrophils % Seg Neuts % (Manual) Lymphocytes % (Manual) Monocytes % (Manual) Seg Neutrophils # Seg Neutrophils # Man Lymphocytes # (Manual) Monocytes # (Manual) PT INR Fibrinogen D-Dimer Heparin Anti-Xa Level 1.46 H ABG pH POC ABG pCO2 POC ABG pO2 ABG Hemoglobin ABG Oxyhemoglobin ABG Sodium ABG Potassium ABG Chloride ABG Glucose Carboxyhemoglobin Sodium Potassium Chloride Carbon Dioxide BUN Creatinine Glucose POC Glucose 144 H Hemoglobin A1c Lactic Acid Calcium Phosphorus Magnesium Ferritin Total Bilirubin AST ALT Lactate Dehydrogenase C-Reactive Protein Total Protein Albumin Arterial Blood Glucose Arterial Blood Ionized Calcium Urine WBC (Auto) U Epithel Cells (Auto) Urine Creatinine Coronavirus (PCR) Crossmatch 11/21/20 11/21/20 11/21/20 09:53 09:53 09:53 WBC RBC Hgb 6.1 L Hct 20.2 L RDW Plt Count Lymph % (Auto) [place] % (Auto) Lymph # (Auto) [place] # (Auto) Seg Neutrophils % Seg Neuts % (Manual) Lymphocytes % (Manual) Monocytes % (Manual) Seg Neutrophils # Seg Neutrophils # Man Lymphocytes # (Manual) Monocytes # (Manual) PT 116.7 H INR 17.11 H* Fibrinogen D-Dimer 1623.09 H Heparin Anti-Xa Level ABG pH POC ABG pCO2 POC ABG pO2 ABG Hemoglobin ABG Oxyhemoglobin ABG Sodium ABG Potassium ABG Chloride ABG Glucose Carboxyhemoglobin Sodium 146 H Potassium 5.7 H D Chloride 107.6 H Carbon Dioxide 10 L D BUN 83 H Creatinine 1.9 H Glucose 158 H POC Glucose Hemoglobin A1c Lactic Acid Calcium 6.1 L Phosphorus Magnesium Ferritin Total Bilirubin AST ALT Lactate Dehydrogenase 1131 H C-Reactive Protein 2.00 H Total Protein Albumin Arterial Blood Glucose Arterial Blood Ionized Calcium Urine WBC (Auto) U Epithel Cells (Auto) Urine Creatinine Coronavirus (PCR) Crossmatch 11/21/20 11/21/20 11/21/20 11:12 11:21 11:28 WBC RBC Hgb Hct RDW Plt Count Lymph % (Auto) [place] % (Auto) Lymph # (Auto) [place] # (Auto) Seg Neutrophils % Seg Neuts % (Manual) Lymphocytes % (Manual) Monocytes % (Manual) Seg Neutrophils # Seg Neutrophils # Man Lymphocytes # (Manual) Monocytes # (Manual) PT INR Fibrinogen 208 L D-Dimer Heparin Anti-Xa Level 1.24 H ABG pH 7.056 L POC ABG pCO2 POC ABG pO2 ABG Hemoglobin 4.4 L ABG Oxyhemoglobin 89.8 L ABG Sodium ABG Potassium ABG Chloride 111.0 H ABG Glucose 573 H Carboxyhemoglobin Sodium Potassium Chloride Carbon Dioxide BUN Creatinine Glucose POC Glucose 49 L Hemoglobin A1c Lactic Acid Calcium Phosphorus Magnesium Ferritin Total Bilirubin AST ALT Lactate Dehydrogenase C-Reactive Protein Total Protein Albumin Arterial Blood Glucose 573 H Arterial Blood Ionized Calcium Urine WBC (Auto) U Epithel Cells (Auto) Urine Creatinine Coronavirus (PCR) Crossmatch 11/21/20 11/21/20 11/21/20 11:39 13:35 17:42 WBC RBC Hgb Hct RDW Plt Count Lymph % (Auto) [place] % (Auto) Lymph # (Auto) [place] # (Auto) Seg Neutrophils % Seg Neuts % (Manual) Lymphocytes % (Manual) Monocytes % (Manual) Seg Neutrophils # Seg Neutrophils # Man Lymphocytes # (Manual) Monocytes # (Manual) PT INR Fibrinogen D-Dimer Heparin Anti-Xa Level ABG pH 7.213 L POC ABG pCO2 29.3 L POC ABG pO2 79.3 L ABG Hemoglobin ABG Oxyhemoglobin 93.5 L ABG Sodium ABG Potassium ABG Chloride 110.0 H ABG Glucose 297 H Carboxyhemoglobin Sodium Potassium Chloride Carbon Dioxide BUN Creatinine Glucose POC Glucose 43 L 111 H Hemoglobin A1c Lactic Acid Calcium Phosphorus Magnesium Ferritin Total Bilirubin AST ALT Lactate Dehydrogenase C-Reactive Protein Total Protein Albumin Arterial Blood Glucose 297 H Arterial Blood Ionized Calcium 4.1 L Urine WBC (Auto) U Epithel Cells (Auto) Urine Creatinine Coronavirus (PCR) Crossmatch 11/21/20 11/22/20 11/22/20 20:15 02:00 05:00 WBC RBC Hgb Hct RDW Plt Count Lymph % (Auto) [place] % (Auto) Lymph # (Auto) [place] # (Auto) Seg Neutrophils % Seg Neuts % (Manual) Lymphocytes % (Manual) Monocytes % (Manual) Seg Neutrophils # Seg Neutrophils # Man Lymphocytes # (Manual) Monocytes # (Manual) PT 22.6 H 20.8 H INR 1.93 H 1.73 H Fibrinogen 200 L D-Dimer 2595.90 H Heparin Anti-Xa Level ABG pH POC ABG pCO2 POC ABG pO2 ABG Hemoglobin ABG Oxyhemoglobin ABG Sodium ABG Potassium ABG Chloride ABG Glucose Carboxyhemoglobin Sodium Potassium Chloride Carbon Dioxide BUN Creatinine Glucose POC Glucose Hemoglobin A1c Lactic Acid 5.00 H* Calcium Phosphorus Magnesium Ferritin Total Bilirubin AST ALT Lactate Dehydrogenase C-Reactive Protein Total Protein Albumin Arterial Blood Glucose Arterial Blood Ionized Calcium Urine WBC (Auto) U Epithel Cells (Auto) Urine Creatinine Coronavirus (PCR) Crossmatch 11/22/20 11/22/20 11/22/20 05:24 11:00 Unknown WBC RBC Hgb Hct RDW Plt Count Lymph % (Auto) [place] % (Auto) Lymph # (Auto) [place] # (Auto) Seg Neutrophils % Seg Neuts % (Manual) Lymphocytes % (Manual) Monocytes % (Manual) Seg Neutrophils # Seg Neutrophils # Man Lymphocytes # (Manual) Monocytes # (Manual) PT INR Fibrinogen D-Dimer Heparin Anti-Xa Level ABG pH 7.545 H POC ABG pCO2 29.3 L POC ABG pO2 ABG Hemoglobin 10.3 L ABG Oxyhemoglobin ABG Sodium ABG Potassium 3.0 L ABG Chloride 111.0 H ABG Glucose 107 H Carboxyhemoglobin 0.1 L Sodium Potassium Chloride Carbon Dioxide BUN Creatinine Glucose POC Glucose 36 L Hemoglobin A1c Lactic Acid Calcium Phosphorus Magnesium Ferritin Total Bilirubin AST ALT Lactate Dehydrogenase C-Reactive Protein 1.90 H Total Protein Albumin Arterial Blood Glucose 107 H Arterial Blood Ionized Calcium 3.3 L Urine WBC (Auto) U Epithel Cells (Auto) Urine Creatinine Coronavirus (PCR) Crossmatch 11/22/20 11/22/20 11/22/20 Unknown Unknown Unknown WBC 16.4 H RBC Hgb Hct RDW 15.4 H Plt Count 40 L Lymph % (Auto) [place] % (Auto) Lymph # (Auto) [place] # (Auto) Seg Neutrophils % Seg Neuts % (Manual) Lymphocytes % (Manual) Monocytes % (Manual) Seg Neutrophils # Seg Neutrophils # Man Lymphocytes # (Manual) Monocytes # (Manual) PT INR Fibrinogen D-Dimer Heparin Anti-Xa Level ABG pH POC ABG pCO2 POC ABG pO2 ABG Hemoglobin ABG Oxyhemoglobin ABG Sodium ABG Potassium ABG Chloride ABG Glucose Carboxyhemoglobin Sodium 152 H Potassium 2.8 L* D Chloride 108.9 H Carbon Dioxide BUN 76 H Creatinine 1.7 H Glucose POC Glucose Hemoglobin A1c Lactic Acid Calcium 6.8 L Phosphorus Magnesium 1.50 L Ferritin 1559.0 H Total Bilirubin 1.50 H AST 4887 H ALT 1552 H Lactate Dehydrogenase C-Reactive Protein Total Protein 3.8 L Albumin 2.2 L Arterial Blood Glucose Arterial Blood Ionized Calcium Urine WBC (Auto) U Epithel Cells (Auto) Urine Creatinine Coronavirus (PCR) Crossmatch 11/22/20 11/22/20 Unknown Unknown WBC RBC Hgb Hct RDW Plt Count Lymph % (Auto) [place] % (Auto) Lymph # (Auto) [place] # (Auto) Seg Neutrophils % Seg Neuts % (Manual) Lymphocytes % (Manual) Monocytes % (Manual) Seg Neutrophils # Seg Neutrophils # Man Lymphocytes # (Manual) Monocytes # (Manual) PT INR Fibrinogen D-Dimer Heparin Anti-Xa Level ABG pH POC ABG pCO2 POC ABG pO2 ABG Hemoglobin ABG Oxyhemoglobin ABG Sodium ABG Potassium ABG Chloride ABG Glucose Carboxyhemoglobin Sodium 152 H Potassium 2.8 L* Chloride 107.5 H Carbon Dioxide 32 H BUN 75 H Creatinine 1.7 H Glucose 130 H POC Glucose Hemoglobin A1c Lactic Acid 5.20 H* Calcium 6.5 L Phosphorus Magnesium Ferritin Total Bilirubin 1.40 H AST 4513 H ALT 1512 H Lactate Dehydrogenase C-Reactive Protein Total Protein 3.4 L Albumin 2.1 L Arterial Blood Glucose Arterial Blood Ionized Calcium Urine WBC (Auto) U Epithel Cells (Auto) Urine Creatinine Coronavirus (PCR) Crossmatch Chest x-ray: pending Allied health notes reviewed: nursing
[2020-11-22 13:43] LABS: Hematocrit 32.4 % (30.3-42.9); Hemoglobin 11.1 gm/dl (10.1-14.3); Mean Corpuscular HGB Conc 34 % (30-34); Mean Corpuscular Volume 85 fl (79-97); Red Blood Count 3.79 M/mm3 (3.65-5.03); Red Cell Distribution Width 15.1 % (13.2-15.2)
[2020-11-22] MEDS ORDERED: D5W/0.9% NACL 1,000 ML IV SCH (14:00)
--- NOTE | 2020-11-22 14:04 | Event Note ---
Date: 11/22/20 Major bleeding yesterday that required transfusion of multiple units of PRBC and stopping the Heparin gtt. Patient's hgb/hct improved however she remains on multiple pressors to support her blood pressure. Remains too unstable to address the arterial Triple Lumen Catheter.
[2020-11-22 14:05] LABS: Platelet Count 37 K/mm3 (140-440)
--- NOTE | 2020-11-22 15:27 | Gastroenterology Progress Note ---
Assessment and Plan 85 yo female with pmh of obesity, chronic UTI, and depression admitted on 11/11/2020 for nausea/vomiting and decreased PO intake. # COVID infection # Respiratory failure # Septic shock # Intra-arterial line placement in left carotid artery # GI bleed - review of the initial CT a/p without contrast on 11/11 with gaseous distension of the stomach without obvious cause. No signs of bowel obstruction. - patient has been on heparin drip for carotid artery line, which is a risk for thrombus and thromboembolic event with CVA. - s/p EGD on 11/20/2020 showing gastric body ulcer with overlying clot and minimal oozing controlled with epinephrine injection and endoclip placement with hemostasis achieved. - on 11/21/2020, patient became more unstable with Hgb down to 6 from 9. Continued to have dark bloody liquid output from the rectal tube. had code blue and maxed out on three pressors post code. Patient's code status changed to DNR. - overnight, patient received 4 units of PRBC and 4 of FFP. Hgb up to 11 and remained stable at 11. Pressors down to levophed and vasopressin. - given stable Hgb at 11, does not appear to have persistent bleeding. Question of bloody output from the rectal tube possibly old blood. - suspect bleeding source including possibly from the gastric ulcer but doubt given endoscopic findings vs other source including lower GI in the setting of coagulopathy, septic shock, and likely DIC - patient remains critically ill with shock, severe COVID infection/pneumonia, sepsis. - Platelet down to 40K and awaiting platelet transfusion. Rec - monitor H/H serially and transfuse as needed. - PPI IV - transfuse as needed with hgb goal >7, Platelet >50 K, and INR <1.5 - If on-going bleeding or drop in H/H again, recommend CTA to help localize the bleeding. - heparin drip has been held off - patient too unstable for any endoscopic intervention or even CT scan. - supportive care. - spoke with patient's daughter, Ms. Azevedo and updated on the conditions and critical state with septic/hemorrhagic shock, respiratory failure and poor prognosis. - discussed with IMS and ICU team. - Dr. Gonzales will be rounding tomorrow. Subjective Date of service: 11/22/20 Principal diagnosis: Ac hypoxemic resp failure; COVID-19 infxn; Pneumonia; KATLYN; AMS; Sepsis Interval history: Patient remains on pressors, weaned down to levophed and vasopressin. Continues to have dark bloody output from the rectal tube. received 4 units of PRBCs. Objective - Constitutional Vitals: Temp Pulse Resp BP Pulse Ox 100.4 F H 90 19 153/58 100 11/22/20 12:23 11/22/20 13:31 11/22/20 13:31 11/22/20 13:31 11/22/20 13:31 General appearance: other (unresponsive, intubated) - Respiratory Respiratory effort: other (intubated on the vent) - Cardiovascular Rhythm: regular Heart Sounds: Present: S1 & S2 - Gastrointestinal General gastrointestinal: Present: soft, non-tender, non-distended - Neurologic Neurological: other (unresponsive) - Labs CBC & Chem 7: 11/22/20 Unknown 11/22/20 Unknown Labs: Laboratory Results - last 24 hr 11/19/20 11/21/20 11/21/20 19:45 17:42 20:15 WBC RBC Hgb Hct MCV MCH MCHC RDW Plt Count PT 22.6 H INR 1.93 H APTT Fibrinogen D-Dimer ABG pH POC ABG pCO2 POC ABG pO2 POC ABG HCO3 ABG O2 Saturation POC ABG Base Excess ABG Hemoglobin ABG Oxyhemoglobin ABG Methemoglobin ABG Sodium ABG Potassium ABG Chloride ABG Glucose Carboxyhemoglobin FiO2 % Sodium Potassium Chloride Carbon Dioxide Anion Gap BUN Creatinine Estimated GFR BUN/Creatinine Ratio Glucose POC Glucose 111 H Lactic Acid Calcium Phosphorus Magnesium Ferritin Total Bilirubin AST ALT Alkaline Phosphatase C-Reactive Protein Total Protein Albumin Albumin/Globulin Ratio Arterial Blood Glucose Arterial Blood Ionized Calcium Blood Type A POSITIVE Antibody Screen Negative Crossmatch See Detail 11/21/20 11/22/20 11/22/20 23:41 02:00 05:00 WBC RBC Hgb Hct MCV MCH MCHC RDW Plt Count PT 20.8 H INR 1.73 H APTT 33.9 Fibrinogen 200 L D-Dimer 2595.90 H ABG pH POC ABG pCO2 POC ABG pO2 POC ABG HCO3 ABG O2 Saturation POC ABG Base Excess ABG Hemoglobin ABG Oxyhemoglobin ABG Methemoglobin ABG Sodium ABG Potassium ABG Chloride ABG Glucose Carboxyhemoglobin FiO2 % Sodium Potassium Chloride Carbon Dioxide Anion Gap BUN Creatinine Estimated GFR BUN/Creatinine Ratio Glucose POC Glucose 98 Lactic Acid 5.00 H* Calcium Phosphorus Magnesium Ferritin Total Bilirubin AST ALT Alkaline Phosphatase C-Reactive Protein Total Protein Albumin Albumin/Globulin Ratio Arterial Blood Glucose Arterial Blood Ionized Calcium Blood Type Antibody Screen Crossmatch 11/22/20 11/22/20 11/22/20 05:24 06:07 11:00 WBC RBC Hgb Hct MCV MCH MCHC RDW Plt Count PT INR APTT Fibrinogen D-Dimer ABG pH 7.545 H POC ABG pCO2 29.3 L POC ABG pO2 90.8 POC ABG HCO3 24.8 ABG O2 Saturation 96.7 POC ABG Base Excess 2.8 ABG Hemoglobin 10.3 L ABG Oxyhemoglobin 96.3 ABG Methemoglobin 0.3 ABG Sodium 143.8 ABG Potassium 3.0 L ABG Chloride 111.0 H ABG Glucose 107 H Carboxyhemoglobin 0.1 L FiO2 % 60.0 Sodium Potassium Chloride Carbon Dioxide Anion Gap BUN Creatinine Estimated GFR BUN/Creatinine Ratio Glucose POC Glucose 36 L 93 Lactic Acid Calcium Phosphorus Magnesium Ferritin Total Bilirubin AST ALT Alkaline Phosphatase C-Reactive Protein Total Protein Albumin Albumin/Globulin Ratio Arterial Blood Glucose 107 H Arterial Blood Ionized Calcium 3.3 L Blood Type Antibody Screen Crossmatch 11/22/20 11/22/20 11/22/20 11:51 13:00 Unknown WBC 21.5 H RBC 3.79 Hgb 11.1 Hct 32.4 MCV 85 MCH 29 MCHC 34 RDW 15.1 Plt Count 37 L PT INR APTT Fibrinogen D-Dimer ABG pH POC ABG pCO2 POC ABG pO2 POC ABG HCO3 ABG O2 Saturation POC ABG Base Excess ABG Hemoglobin ABG Oxyhemoglobin ABG Methemoglobin ABG Sodium ABG Potassium ABG Chloride ABG Glucose Carboxyhemoglobin FiO2 % Sodium Potassium Chloride Carbon Dioxide Anion Gap BUN Creatinine Estimated GFR BUN/Creatinine Ratio Glucose POC Glucose 96 Lactic Acid Calcium Phosphorus Magnesium Ferritin Total Bilirubin AST ALT Alkaline Phosphatase C-Reactive Protein 1.90 H Total Protein Albumin Albumin/Globulin Ratio Arterial Blood Glucose Arterial Blood Ionized Calcium Blood Type Antibody Screen Crossmatch 11/22/20 11/22/20 11/22/20 Unknown Unknown Unknown WBC 16.4 H RBC 3.76 Hgb 11.0 D Hct 32.3 D MCV 86 MCH 29 MCHC 34 RDW 15.4 H Plt Count 40 L PT INR APTT Fibrinogen D-Dimer ABG pH POC ABG pCO2 POC ABG pO2 POC ABG HCO3 ABG O2 Saturation POC ABG Base Excess ABG Hemoglobin ABG Oxyhemoglobin ABG Methemoglobin ABG Sodium ABG Potassium ABG Chloride ABG Glucose Carboxyhemoglobin FiO2 % Sodium 152 H Potassium 2.8 L* D Chloride 108.9 H Carbon Dioxide 28 D Anion Gap 18 BUN 76 H Creatinine 1.7 H Estimated GFR 29 BUN/Creatinine Ratio 45 Glucose 86 POC Glucose Lactic Acid Calcium 6.8 L Phosphorus 4.50 Magnesium 1.50 L Ferritin 1559.0 H Total Bilirubin 1.50 H AST 4887 H ALT 1552 H Alkaline Phosphatase 70 C-Reactive Protein Total Protein 3.8 L Albumin 2.2 L Albumin/Globulin Ratio 1.4 Arterial Blood Glucose Arterial Blood Ionized Calcium Blood Type Antibody Screen Crossmatch 11/22/20 11/22/20 Unknown Unknown WBC RBC Hgb Hct MCV MCH MCHC RDW Plt Count PT INR APTT Fibrinogen D-Dimer ABG pH POC ABG pCO2 POC ABG pO2 POC ABG HCO3 ABG O2 Saturation POC ABG Base Excess ABG Hemoglobin ABG Oxyhemoglobin ABG Methemoglobin ABG Sodium ABG Potassium ABG Chloride ABG Glucose Carboxyhemoglobin FiO2 % Sodium 152 H Potassium 2.8 L* Chloride 107.5 H Carbon Dioxide 32 H Anion Gap 15 BUN 75 H Creatinine 1.7 H Estimated GFR 29 BUN/Creatinine Ratio 44 Glucose 130 H POC Glucose Lactic Acid 5.20 H* Calcium 6.5 L Phosphorus Magnesium Ferritin Total Bilirubin 1.40 H AST 4513 H ALT 1512 H Alkaline Phosphatase 65 C-Reactive Protein Total Protein 3.4 L Albumin 2.1 L Albumin/Globulin Ratio 1.6 Arterial Blood Glucose Arterial Blood Ionized Calcium Blood Type Antibody Screen Crossmatch
[2020-11-22] MEDS: VANCOMYCIN 1,500 MG in SODIUM CHLORIDE 0.9% 500 ML 500 ML IV SCH (16:02)
--- NOTE | 2020-11-22 16:09 | Progress Note ---
Assessment and Plan Assessment and plan: This is an 85-year-old female admitted with acute hypoxic respiratory failure, COVID-19 pneumonia and septic shock Neuro: Acute metabolic encephalopathy, H/O lumbar compression fracture -multifactorial -Patient has no sedation -Supportive care Cardio: s/p VF cardiac arrest, Hypotension, inadvertent placement of carotid artery central venous line -Vasopressor support with norepi, vasopressin -Blood pressure monitoring via femoral kyle -Vascular surgery/interventional radiology consulted, appreciate recommendations -Patient was on a Heparin drip to prevent thrombus but this was discontinued d/t bleeding/cougulopahty -see code sheet from 11/21 for details Respiratory: Acute hypoxemic respiratory failure -CCM consulted, appreciate recommendations -Intubated 11/13/2020 -11/21 ABG and CXR reviewed -AM vent settings: 8.00 ETT at 20 lips; AC, rate of 12, PEEP 10, FiO2 50% -Post arrest vent settings: AC R 10, PEEP 10, TV 400, FiO2 60% -2 additional amps bicarb given -VAP bundle -Daily SBT/SAT when appropriate -Serial ABGs, CXR -Wean mechanical ventilation when appropriate GI: Acute Blood loss anemia, GI bleed, Bleeding Gastric ulcer, transaminitis, Severe protein malnutrition -GI consulted, appreciate recommendations -Ntr consulted, appreciate recommendations: On tube feedings -11/11 abdomen/pelvis CT, see report for findings -Protonix gtt -FMS in place-> Occult Positive -Serial H&H -11/20 s/p 2 units PRBC -11/20: EGD shows bleeding gastric ulcer which was banded -NPO per GI recs; Currently on D51/2NS @42 -Additional 4 units PRBC, FFPx1 -Ordered 1 unit plts today -Trend CBC and LFTs : Acute kidney injury, left ureteral stone, metabolic alkalosis, hypocalcemia, hypernatermia -Nephrology, urology consulted, appreciate recommendations -Strict intake and output -Daily weights -Avoid nephrotoxic medications -Renally dose medications -S/p bilateral stent -s/p IV calcium with PO supplements -MIVF -D5 with NaHCO3 gtt stopped d/t correction in acidosis -given multiple amps of sodium bicarb ID: Septic shock, COVID-19 pneumonia, UTI -MRSA 11/13 sputum culture -Infectious disease consulted, appreciate recommendations -ID restarted abx : vancomycin and cefepime given new fevers and worsening white count on 11/20 -11/14 blood cultures x2 no growth to date -COVID-19 PCR + on 11/11 -Patient not a candidate for remdesivir due to renal failure -S/p Actemra -Dexamethasone for 10 days -Zinc/vitamin C -Trend COVID-19 inflammatory markers -Droplet/isolation precautions Endo: DM II -SSI -Hemoglobin A1c 6.6 -Accu-Cheks every 2 hours -Avoid hypoglycemia -Protonix gtt Heme: Acute GI bleed, elevated D-dimer, Leukocytosis, Supratheraputic INR, Thrombocytopenia -GI consulted, appreciate recommendations -SCDs to bilateral lower extremities while in bed -s/p 2 units prbc, 4 additional units ordered for today -1 unit plts to be transfused -H/H every 6 -Transfuse for hemoglobin less than 7; per GI : hgb goal >7, Platelet >50 K, and INR <1.5 -s/p heparin gtt -per GI: If on-going bleeding or drop in H/H again, recommend CTA to help localize the bleeding -Trend CBC, coags The high probability of a clinically significant, sudden or life threatening deterioration of the [multi] system(s) required my full and direct attention, intervention and personal management. The aggregate critical care time was [60] minutes. This time is in addition to time spent performing reported procedures but includes the following: [x] Data Review and interpretation [x] Patient assessment and monitoring of vital signs [x] Documentation [x] Medication orders and management History Interval history: This is a 85-year-old female with obesity, chronic low back pain, chronic UTI, muscle spasm, and depression who presents to the emergency department on 11/11 with complaints of nausea/vomiting and decreased p.o. intake for 1 week and c omplains of mild diarrhea. Patient is bedridden and nonambulatory and oriented to self. Her patient's daughter EMS was called to assess and they gave the patient IV fluids but did not transfer the patient. On 11/11 EMS was contacted again and due to persistent vomiting and apparent small amount of blood in vomit patient was transferred to [facility] for further evaluation and treatment. Upon presentation to the emergency department patient was hypoxic on room air with SPO2 of 88 to 90% and continue to have emesis. Work-up in the emergency department revealed leukocytosis, thrombocytosis, acute hypoxic respiratory failure, SIRS. Patient was admitted as a COVID-19 PUI with acute hypoxic respiratory failure. 11/12/2020 Patient doing well, Discussed with daughter at length about her prognosis and treatment, No nausea vomiting since morning Coronavirus PCR came positive 11/13/2020 Patient coded last night and was intubated, ROSC. Patient on vent, General Assistant consult and ID consult 11/14/2020 Patient intubated, Weaning in progress 11/15/2020; patient remains intubated, on vasopressors for septic shock. Critically ill, poor prognosis, discussed with daughter Kirstin who understands the severity of illness, she wants to talk to the family. If the family agrees she is considering DNR/withdrawal of care, I informed patient's nurse 11/16/2020; Patient remains intubated, on Levophed, Severe sepsis due to COVID-19 pneumonia, critically ill, on heparin drip 11/17/2020; Patient remains critically ill. Septic shock on norepinephrine. Intubated on vent, Very poor prognosis Family unable to decide the goals of treatment CODE STATUS; Recommend palliative care/hospice 11/18: PICC team consulted for placement of PICC, patient noted to have minimal output from NG tube and tube feeding will be restarted, patient will be left with Reglan. CCM decrease PEEP. Hypocalcemia and hypomagnesemia repleted. 11/19: Patient's H/H is trending down, having dark stools via FMS and GI was consulted today. Placed on PPI and NG tube to low normal suction, start stool guaiac positive. Per CCM discontinue Lind catheter. Patient will now be on every 6 H&H and will to be transfused with 2 units PRBC. Long family meeting conducted today with hospitalist, CCM and administration. 11/20: GI at bedside to perform endoscopy, patient's blood pressure has been labile today and RN has been going up and down on vasopressors. Patient is still having melena and received 1 unit PRBC yesterday evening. 11/21: Patient midnight h/h noted to be 10/30 this morning from 12/31 prior and two units prbc were ordered. Repeat hbg 6.05/01. Patient had a cardiac arrest today (see event note/code sheet for details). Received 2 additional prbc and 1 ffp. Coags pending. Family updated and code status changed. 11/22: H/H remains stable, pt remains on vasopressors and having melana. Thrombocytopenic today and 1 unit plts ordered. HIT ordered. Hospitalist Physical - Constitutional Vitals: Temp Pulse Resp BP Pulse Ox 100.4 F H 91 H 19 126/44 100 11/22/20 12:23 11/22/20 15:51 11/22/20 13:31 11/22/20 15:51 11/22/20 15:51 General appearance: Present: other (Intubated, not interactive) HEART Score - HEART Score Age: > 65 Risk factors: 1-2 risk factors Troponin: Troponin T < 0.010 ng/mL (0.00-0.029) 11/11/20 13:39 - Critical Actions Critical Actions: 0-3 pts:0.9-1.7%risk of adverse cardiac event.Candidate for discharge Results - Labs CBC & Chem 7: 11/22/20 Unknown 11/22/20 Unknown Labs: Laboratory Last Values WBC 16.4 K/mm3 (4.5-11.0) H 11/22/20 Unknown RBC 3.76 M/mm3 (3.65-5.03) 11/22/20 Unknown Hgb 11.0 gm/dl (10.1-14.3) D 11/22/20 Unknown Hct 32.3 % (30.3-42.9) D 11/22/20 Unknown MCV 86 fl (79-97) 11/22/20 Unknown MCH 29 pg (28-32) 11/22/20 Unknown MCHC 34 % (30-34) 11/22/20 Unknown RDW 15.4 % (13.2-15.2) H 11/22/20 Unknown Plt Count 40 K/mm3 (140-440) L 11/22/20 Unknown Lymph % (Auto) 5.7 % (13.4-35.0) L 11/13/20 05:23 Preble % (Auto) 9.0 % (0.0-7.3) H 11/13/20 05:23 Eos % (Auto) 0.0 % (0.0-4.3) 11/13/20 05:23 Baso % (Auto) 0.0 % (0.0-1.8) 11/13/20 05:23 Lymph # (Auto) 0.9 K/mm3 (1.2-5.4) L 11/13/20 05:23 [place] # (Auto) 1.4 K/mm3 (0.0-0.8) H 11/13/20 05:23 Eos # (Auto) 0.0 K/mm3 (0.0-0.4) 11/13/20 05:23 Baso # (Auto) 0.0 K/mm3 (0.0-0.1) 11/13/20 05:23 Add Manual Diff Complete 11/20/20 04:09 Total Counted 100 11/20/20 04:09 Seg Neutrophils % 85.3 % (40.0-70.0) H 11/13/20 05:23 Seg Neuts % (Manual) 77.0 % (40.0-70.0) H 11/20/20 04:09 Band Neutrophils % 13.0 % 11/20/20 04:09 Lymphocytes % (Manual) 3.0 % (13.4-35.0) L 11/20/20 04:09 Monocytes % (Manual) 3.0 % (0.0-7.3) 11/20/20 04:09 Metamyelocytes % 4.0 % 11/20/20 04:09 Nucleated RBC % Not Reportable 11/20/20 04:09 Seg Neutrophils # 13.6 K/mm3 (1.8-7.7) H 11/13/20 05:23 Seg Neutrophils # Man 16.1 K/mm3 (1.8-7.7) H 11/20/20 04:09 Band Neutrophils # 2.7 K/mm3 11/20/20 04:09 Lymphocytes # (Manual) 0.6 K/mm3 (1.2-5.4) L 11/20/20 04:09 Abs React Lymphs (Man) 0.0 K/mm3 11/20/20 04:09 Monocytes # (Manual) 0.6 K/mm3 (0.0-0.8) 11/20/20 04:09 Eosinophils # (Manual) 0.0 K/mm3 (0.0-0.4) 11/20/20 04:09 Basophils # (Manual) 0.0 K/mm3 (0.0-0.1) 11/20/20 04:09 Metamyelocytes # 0.8 K/mm3 11/20/20 04:09 Myelocytes # 0.0 K/mm3 11/20/20 04:09 Promyelocytes # 0.0 K/mm3 11/20/20 04:09 Blast Cells # 0.0 K/mm3 11/20/20 04:09 WBC Morphology Not Reportable 11/20/20 04:09 Hypersegmented Neuts Not Reportable 11/20/20 04:09 Hyposegmented Neuts Not Reportable 11/20/20 04:09 Hypogranular Neuts Not Reportable 11/20/20 04:09 Smudge Cells Not Reportable 11/20/20 04:09 Toxic Granulation Not Reportable 11/20/20 04:09 Toxic Vacuolation Not Reportable 11/20/20 04:09 Dohle Bodies Not Reportable 11/20/20 04:09 Pelger-Huet Anomaly Not Reportable 11/20/20 04:09 Vernell Rods Not Reportable 11/20/20 04:09 Platelet Estimate Consistent w auto 11/20/20 04:09 Clumped Platelets Not Reportable 11/20/20 04:09 Plt Clumps, EDTA Not Reportable 11/20/20 04:09 Large Platelets Not Reportable 11/20/20 04:09 Giant Platelets Not Reportable 11/20/20 04:09 Platelet Satelliting Not Reportable 11/20/20 04:09 Plt Morphology Comment Not Reportable 11/20/20 04:09 RBC Morphology Not Reportable 11/20/20 04:09 Dimorphic RBCs Not Reportable 11/20/20 04:09 Polychromasia Few 11/20/20 04:09 Hypochromasia Few 11/20/20 04:09 Poikilocytosis Not Reportable 11/20/20 04:09 Anisocytosis Not Reportable 11/20/20 04:09 Microcytosis Not Reportable 11/20/20 04:09 Macrocytosis Not Reportable 11/20/20 04:09 Spherocytes Not Reportable 11/20/20 04:09 Pappenheimer Bodies Not Reportable 11/20/20 04:09 Sickle Cells Not Reportable 11/20/20 04:09 Target Cells Not Reportable 11/20/20 04:09 Tear Drop Cells Not Reportable 11/20/20 04:09 Ovalocytes Not Reportable 11/20/20 04:09 Helmet Cells Not Reportable 11/20/20 04:09 [place] Bodies Not Reportable 11/20/20 04:09 [place] Rings Not Reportable 11/20/20 04:09 Vitaliy Cells Not Reportable 11/20/20 04:09 Bite Cells Not Reportable 11/20/20 04:09 Crenated Cell Not Reportable 11/20/20 04:09 Elliptocytes Not Reportable 11/20/20 04:09 Acanthocytes (Spur) Not Reportable 11/20/20 04:09 Rouleaux Not Reportable 11/20/20 04:09 Hemoglobin C Crystals Not Reportable 11/20/20 04:09 Schistocytes Not Reportable 11/20/20 04:09 Malaria parasites Not Reportable 11/20/20 04:09 Mauro Bodies Not Reportable 11/20/20 04:09 Hem Pathologist Commnt No 11/20/20 04:09 PT 20.8 Sec. (12.2-14.9) H 11/22/20 02:00 INR 1.73 (0.87-1.13) H 11/22/20 02:00 APTT 33.9 Sec. (24.2-36.6) 11/22/20 02:00 Fibrinogen 200 mg/dl (211-480) L 11/22/20 02:00 D-Dimer 2595.90 ng/mlDDU (0-234) H 11/22/20 02:00 Heparin Anti-Xa Level 1.24 U.I./ml (0.3-0.7) H 11/21/20 11:12 ABG pH 7.545 (7.320-7.450) H 11/22/20 11:00 POC ABG pCO2 29.3 mmHg (32.0-48.0) L 11/22/20 11:00 POC ABG pO2 90.8 mmHg (83-108) 11/22/20 11:00 POC ABG HCO3 24.8 11/22/20 11:00 ABG O2 Saturation 96.7 (0-100) 11/22/20 11:00 POC ABG Base Excess 2.8 11/22/20 11:00 ABG Hemoglobin 10.3 (12.0-17.5) L 11/22/20 11:00 ABG Oxyhemoglobin 96.3 (94-98) 11/22/20 11:00 ABG Methemoglobin 0.3 (0.0-1.5) 11/22/20 11:00 ABG Sodium 143.8 mmol/L (136.0-145.0) 11/22/20 11:00 ABG Potassium 3.0 mmol/L (3.40-4.50) L 11/22/20 11:00 ABG Chloride 111.0 mmol/L (98-107) H 11/22/20 11:00 ABG Glucose 107 mg/dL (65-95) H 11/22/20 11:00 Carboxyhemoglobin 0.1 (0.5-1.5) L 11/22/20 11:00 FiO2 % 60.0 11/22/20 11:00 Sodium 152 mmol/L (137-145) H 11/22/20 Unknown Sodium 152 mmol/L (137-145) H 11/22/20 Unknown Potassium 2.8 mmol/L (3.6-5.0) L* 11/22/20 Unknown Potassium 2.8 mmol/L (3.6-5.0) L* D 11/22/20 Unknown Chloride 107.5 mmol/L (98-107) H 11/22/20 Unknown Chloride 108.9 mmol/L (98-107) H 11/22/20 Unknown Carbon Dioxide 28 mmol/L (22-30) D 11/22/20 Unknown Carbon Dioxide 32 mmol/L (22-30) H 11/22/20 Unknown Anion Gap 15 mmol/L 11/22/20 Unknown Anion Gap 18 mmol/L 11/22/20 Unknown BUN 75 mg/dL (7-17) H 11/22/20 Unknown BUN 76 mg/dL (7-17) H 11/22/20 Unknown Creatinine 1.7 mg/dL (0.6-1.2) H 11/22/20 Unknown Creatinine 1.7 mg/dL (0.6-1.2) H 11/22/20 Unknown Estimated GFR 29 ml/min 11/22/20 Unknown Estimated GFR 29 ml/min 11/22/20 Unknown BUN/Creatinine Ratio 44 % 11/22/20 Unknown BUN/Creatinine Ratio 45 % 11/22/20 Unknown Glucose 86 mg/dL (65-100) 11/22/20 Unknown Glucose 130 mg/dL (65-100) H 11/22/20 Unknown POC Glucose 96 mg/dL (70-105) 11/22/20 11:51 Hemoglobin A1c 6.6 % (4-6) H 11/12/20 05:07 Lactic Acid 5.20 mmol/L (0.7-2.0) H* 11/22/20 Unknown Calcium 6.5 mg/dL (8.4-10.2) L 11/22/20 Unknown Calcium 6.8 mg/dL (8.4-10.2) L 11/22/20 Unknown Phosphorus 4.50 mg/dL (2.5-4.5) 11/22/20 Unknown Magnesium 1.50 mg/dL (1.7-2.3) L 11/22/20 Unknown Ferritin 1559.0 ng/mL (10.0-200.0) H 11/22/20 Unknown Total Bilirubin 1.40 mg/dL (0.1-1.2) H 11/22/20 Unknown Total Bilirubin 1.50 mg/dL (0.1-1.2) H 11/22/20 Unknown AST 4513 units/L (5-40) H 11/22/20 Unknown AST 4887 units/L (5-40) H 11/22/20 Unknown ALT 1512 units/L (7-56) H 11/22/20 Unknown ALT 1552 units/L (7-56) H 11/22/20 Unknown Alkaline Phosphatase 65 units/L (35-129) 11/22/20 Unknown Alkaline Phosphatase 70 units/L (35-129) 11/22/20 Unknown Lactate Dehydrogenase 1131 units/L (91-180) H 11/21/20 09:53 Troponin T < 0.010 ng/mL (0.00-0.029) 11/11/20 13:39 C-Reactive Protein 1.90 mg/dL (0.00-1.30) H 11/22/20 Unknown Total Protein 3.4 g/dL (6.3-8.2) L 11/22/20 Unknown Total Protein 3.8 g/dL (6.3-8.2) L 11/22/20 Unknown Albumin 2.1 g/dL (3.9-5) L 11/22/20 Unknown Albumin 2.2 g/dL (3.9-5) L 11/22/20 Unknown Albumin/Globulin Ratio 1.4 % 11/22/20 Unknown Albumin/Globulin Ratio 1.6 % 11/22/20 Unknown Lipase 55 units/L (13-60) 11/11/20 13:39 Procalcitonin < 0.05 ng/mL (<0.15) 11/11/20 16:59 Arterial Blood Glucose 107 mg/dL (65-95) H 11/22/20 11:00 Arterial Blood Ionized Calcium 3.3 mg/dL (4.6-5.3) L 11/22/20 11:00 Urine Color Janay (Yellow) 11/19/20 23:45 Urine Turbidity Cloudy (Clear) 11/19/20 23:45 Urine pH 5.0 (5.0-7.0) 11/19/20 23:45 Ur Specific Matthews 1.015 (1.003-1.030) 11/19/20 23:45 Urine Protein 100 mg/dl mg/dL (Negative) 11/19/20 23:45 Urine Glucose (UA) Neg mg/dL (Negative) 11/19/20 23:45 Urine Ketones Neg mg/dL (Negative) 11/19/20 23:45 Urine Blood Lg (Negative) 11/19/20 23:45 Urine Nitrite Neg (Negative) 11/19/20 23:45 Ur Reducing Substances TNR 11/14/20 06:15 Urine Bilirubin Neg (Negative) 11/19/20 23:45 Urine Ictotest TNR 11/14/20 06:15 Urine Urobilinogen < 2.0 mg/dL (<2.0) 11/19/20 23:45 Ur Leukocyte Esterase Mod (Negative) 11/19/20 23:45 Urine WBC (Auto) > 182.0 /HPF (0.0-6.0) H 11/19/20 23:45 Urine RBC (Auto) > 182.0 /HPF (0.0-6.0) 11/19/20 23:45 U Epithel Cells (Auto) 3.0 /HPF (0-13.0) 11/19/20 23:45 Urine Bacteria (Auto) 4+ /HPF (Negative) 11/19/20 23:45 Urine WBC Clumps 3+ /HPF 11/14/20 06:15 Ur Transition Epith Cell 4 /HPF 11/19/20 23:45 Urine Mucus Few /HPF 11/19/20 23:45 Ur Yeast w Hyphae 2+ /HPF 11/19/20 23:45 Urine Yeast (Budding) 3+ /HPF 11/19/20 23:45 Urine Creatinine 80.2 mg/dL (0.1-20.0) H 11/14/20 06:15 Urine Sodium 28 mmol/L 11/14/20 06:15 Coronavirus (PCR) Positive (Negative) A 11/11/20 Unknown Blood Type A POSITIVE 11/19/20 19:45 Antibody Screen Negative 11/19/20 19:45 Crossmatch See Detail 11/19/20 19:45 Lind/IV: Voiding Method External Female Catheter Active Medications - Current Medications Current Medications: Generic Name Dose Route Start Last Admin Trade Name Freq PRN Reason Stop Dose Admin Acetaminophen 650 mg 11/11/20 22:11 11/19/20 11:30 Acetaminophen 325 Mg Tab PO 650 mg Q4H PRN Administration Pain MILD(1-3)/Fever >100.5/ERAZO Albuterol 2.5 mg 11/13/20 07:40 Albuterol 2.5 Mg/3 Ml Nebu IH Q4HRT PRN Shortness Of Breath Lipase/Protease/Amylase 1 each 11/13/20 17:32 Lipase 10,500/Protease 25,000/Amylase 43,750 (Units) Dr Weiss FEEDTUBE PRN PRN For Clogged Feeding Tube Ascorbic Acid 500 mg 11/13/20 22:00 11/22/20 09:11 Ascorbic Acid 500 Mg Tab PO Not Given BID CARLOS Baclofen 10 mg 11/11/20 22:09 Baclofen 10 Mg Tab PO TID PRN MUSCLE SPASMS & PAIN Dextrose 50 ml 11/13/20 16:43 11/22/20 05:27 Dextrose 50% In Water (25gm) 50 Ml Syringe IV 50 ml Q30MIN PRN Administration Hypoglycemia Protocol Fentanyl 50 mcg 11/13/20 05:33 Fentanyl 100 Mcg/2 Ml Inj IV Q10MIN PRN ANALGESIA Heparin Sodium (Porcine) 3,000 unit 11/13/20 05:04 Heparin 10,000 Units/10 Ml Vial 40 unit/kg (3000 unit) IV Q6H PRN Anti-Xa Assay < 0.1 units/ml Hydrophilic Ointment 1 applic 11/13/20 05:33 Lip Therapy Vaseline TP Q2HR PRN Dry Lips Heparin Sodium/Sodium Chloride 25,000 unit in 500 mls @ 23 mls/hr 11/13/20 06:00 11/21/20 11:08 Heparin/ 0.45% Nacl-25,000 Unit/500 Ml IV 0 units/hr TITR CARLOS 0 mls/hr Titration Protocol 1,150 UNITS/HR Fentanyl Citrate 2,000 mcg in 100 mls @ 3.81 mls/hr 11/13/20 06:00 11/21/20 15:00 Fentanyl Drip Premix IV 0 mcg/kg/hr TITR CARLOS 0 mls/hr Titration Protocol 1 MCG/KG/HR NORepinephrine/NS 8 MG-250 ML 8 mg in 250 mls @ 3.75 mls/hr 11/13/20 15:00 11/22/20 16:03 Norepinephrine/Ns 8 Mg-250 Ml (Double Conc) IV 14 mcg/min TITRATE CARLOS 26.25 mls/hr Titration Protocol 2 MCG/MIN Vasopressin 20 unit/ Sodium 101 mls @ 9.09 mls/hr 11/19/20 09:00 11/22/20 05:11 Chloride IV 0.03 units/min TITR CARLOS 9.09 mls/hr Administration Protocol 0.03 UNITS/MIN Cefepime HCl 2 gm in 100 mls @ 200 mls/hr 11/20/20 14:00 11/22/20 16:02 Cefepime/Ns 2 Gm/100 Ml IV 200 mls/hr Q12H CARLOS Administration Protocol Vancomycin HCl 1,500 mg/ 530 mls @ 333.333 mls/hr 11/20/20 15:00 11/22/20 16:02 Sodium Chloride IV 333.333 mls/hr Q24H CARLOS Administration Phenylephrine HCl 100 mg/ 100 mls @ 3 mls/hr 11/21/20 08:15 11/21/20 17:53 Sodium Chloride IV 0 mcg/min TITR CARLOS 0 mls/hr Titration Protocol 50 MCG/MIN Epinephrine 16 mg/ Sodium 250 mls @ 1.875 mls/hr 11/21/20 11:00 11/22/20 01:00 Chloride IV 0 mcg/min TITR CARLOS 0 mls/hr Titration Protocol 2 MCG/MIN Sodium Chloride 500 mls @ 0 mls/hr 11/22/20 11:00 Nacl 0.9% 500 Ml IV 11/22/20 18:00 ONCE CARLOS As Directed Dextrose/Sodium Chloride 1,000 mls @ 42 mls/hr 11/22/20 14:00 D5ns IV DIRECT CARLOS Insulin Human Regular 0 units 11/21/20 00:00 11/22/20 11:55 Insulin Regular, Human 100 Units/1 Ml SUB-Q Not Given Q6HR [facility] Protocol Multi-Ingred Cream/Lotion/Oil/Oint 1 applic 11/13/20 05:33 Mineral Oil/Petrolatum, White Ophth Oint 3.5 Gm OU Q4HR PRN Dry Eye(s) Ondansetron HCl 4 mg 11/11/20 22:11 Ondansetron 4 Mg/2 Ml Inj IV Q3H PRN Nausea And Vomiting Pantoprazole Sodium 40 mg 11/22/20 22:00 Pantoprazole 40 Mg Inj IV BID CARLOS Simple Syrup 15 ml 11/13/20 17:32 Simple Syrup 15 Ml FEEDTUBE PRN PRN Hypoglycemia Simple Syrup 30 ml 11/13/20 17:32 Simple Syrup 15 Ml FEEDTUBE PRN PRN Hypoglycemia Sodium Bicarbonate 325 mg 11/13/20 17:32 Sodium Bicarbonate 325 Mg Tab FEEDTUBE PRN PRN For Clogged Feeding Tube Sodium Chloride 10 ml 11/12/20 10:00 11/22/20 09:59 Sodium Chloride 0.9% 10 Ml Flush Syringe IV 10 ml BID CARLOS Administration Sodium Chloride 10 ml 11/11/20 22:11 Sodium Chloride 0.9% 10 Ml Flush Syringe IV PRN PRN LINE FLUSH Zinc Sulfate 220 mg 11/13/20 22:00 11/22/20 09:11 Zinc Sulfate 220 Mg Cap PO Not Given BID CARLOS Nutrition/Malnutrition Assess - Dietary Evaluation Nutrition/Malnutrition Findings: Nutrition Notes Start: 11/13/20 1 7:25 Freq: Status: Active Protocol: Document 11/22/20 11:22 DWAYNE (Rec: 11/22/20 11:24 [id number]) Nutrition Notes Initial or Follow up Brief Note Current Diagnosis Sepsis,Respiratory Failure Other Pertinent Diagnosis GIB, COVID-19 (+), Dehydration , (L) renal stone Current Diet Vital AF 1.2 at 50 ml/hr Subjective/Other Information Pt suffered code yesterday. TF is off per GI until pt is more stable. Nutrition Intervention Follow-Up By: 11/26/20 Additional Comments F/u: TF restart and tolerance
--- NOTE | 2020-11-22 17:33 | Progress Note ---
Assessment and Plan Cultures: Blood culture no growth so far Respiratory culture: few MRSA, <25 WBC Covid PCR: Positive A/P: 85-year-old female past medical history obesity, chronic low back pain, depression admitted with COVID-19 #Severe COVID-19 pneumonia: Patient presented with a week of symptoms, chest x- ray with diffuse bilateral infiltrates, admission O2 sats 89-90% on room air. Inflammatory markers elevated. Normal procalcitonin. Was not remdesivir candidate due to renal function. #Acute hypoxemic respiratory failure: Likely secondary to COVID-19 infection. Currently on the vent. #Shock liver: in the setting of code blue #Acute blood loss anemia: s/p transfusions #KATLYN: renally dose medications. not a candidate for remdesivir #nephrolithiasis: with associated hydronephrosis. Initial UA was normal, second was was most likely highly contaminated given large amounts of blood and epithelial cells, and operative notes not indicative of infection. most recent one still with significant blood, however in the setting of recent urological procedure and new fevers will treat. Recs: -Dexamethasone 6 mg IV/PO daily for 10 days -s/p Actemra -Obtain q48-72h inflammatory markers - ferritin, Ddimer, CRP, LDH -Anticoagulation per hospital protocol -Proning as able -vancomycin and cefepime given new fevers and worsening white count -Follow up urine cultures. Thank you for the consult, we will continue to follow. Dr. Garibay covering this weekend, Dr. Batista taking over Wednesday. Araceli Chacon MD [facility] ([facility] O: [phone] F: [phone] Subjective Date of service: 11/22/20 Principal diagnosis: Ac hypoxemic resp failure; COVID-19 infxn; Pneumonia; KATLYN; AMS; Sepsis Interval history: Febrile to 100.6 with a white count of 21.5. Severely worsening liver enzymes. Remains on the vent. Objective - Exam Narrative Exam: Physical exam deferred to reduce risk of transmission of COVID-19. Please refer to primary team's note. - Constitutional Vitals: Vital Signs Temp Pulse Resp BP Pulse Ox 100.6 F H 88 28 H 153/58 99 11/22/20 16:35 11/22/20 17:15 11/22/20 17:15 11/22/20 17:15 11/22/20 17:15 Temperature -Last 24 Hours Temperature 100.6 F Temperature 100.4 F Temperature 96.8 F Temperature 97 F Temperature 95.4 F Temperature 93.4 F - Labs CBC & Chem 7: 11/22/20 Unknown 11/22/20 Unknown Labs: Abnormal lab results 11/19/20 11/21/20 11/21/20 Range/Units 19:45 17:42 20:15 WBC (4.5-11.0) K/mm3 RDW (13.2-15.2) % Plt Count (140-440) K/mm3 PT 22.6 H (12.2-14.9) Sec. INR 1.93 H (0.87-1.13) Fibrinogen (211-480) mg/dl D-Dimer (0-234) ng/mlDDU ABG pH (7.320-7.450) POC ABG pCO2 (32.0-48.0) mmHg ABG Hemoglobin (12.0-17.5) ABG Potassium (3.40-4.50) mmol/L ABG Chloride (98-107) mmol/L ABG Glucose (65-95) mg/dL Carboxyhemoglobin (0.5-1.5) Sodium (137-145) mmol/L Potassium (3.6-5.0) mmol/L Chloride (98-107) mmol/L Carbon Dioxide (22-30) mmol/L BUN (7-17) mg/dL Creatinine (0.6-1.2) mg/dL Glucose (65-100) mg/dL POC Glucose 111 H (70-105) mg/dL Lactic Acid (0.7-2.0) mmol/L Calcium (8.4-10.2) mg/dL Magnesium (1.7-2.3) mg/dL Ferritin (10.0-200.0) ng/mL Total Bilirubin (0.1-1.2) mg/dL AST (5-40) units/L ALT (7-56) units/L C-Reactive Protein (0.00-1.30) mg/dL Total Protein (6.3-8.2) g/dL Albumin (3.9-5) g/dL Arterial Blood Glucose (65-95) mg/dL Arterial Blood Ionized Calcium (4.6-5.3) mg/dL Crossmatch See Detail 11/22/20 11/22/20 11/22/20 Range/Units 02:00 05:00 05:24 WBC (4.5-11.0) K/mm3 RDW (13.2-15.2) % Plt Count (140-440) K/mm3 PT 20.8 H (12.2-14.9) Sec. INR 1.73 H (0.87-1.13) Fibrinogen 200 L (211-480) mg/dl D-Dimer 2595.90 H (0-234) ng/mlDDU ABG pH (7.320-7.450) POC ABG pCO2 (32.0-48.0) mmHg ABG Hemoglobin (12.0-17.5) ABG Potassium (3.40-4.50) mmol/L ABG Chloride (98-107) mmol/L ABG Glucose (65-95) mg/dL Carboxyhemoglobin (0.5-1.5) Sodium (137-145) mmol/L Potassium (3.6-5.0) mmol/L Chloride (98-107) mmol/L Carbon Dioxide (22-30) mmol/L BUN (7-17) mg/dL Creatinine (0.6-1.2) mg/dL Glucose (65-100) mg/dL POC Glucose 36 L (70-105) mg/dL Lactic Acid 5.00 H* (0.7-2.0) mmol/L Calcium (8.4-10.2) mg/dL Magnesium (1.7-2.3) mg/dL Ferritin (10.0-200.0) ng/mL Total Bilirubin (0.1-1.2) mg/dL AST (5-40) units/L ALT (7-56) units/L C-Reactive Protein (0.00-1.30) mg/dL Total Protein (6.3-8.2) g/dL Albumin (3.9-5) g/dL Arterial Blood Glucose (65-95) mg/dL Arterial Blood Ionized Calcium (4.6-5.3) mg/dL Crossmatch 11/22/20 11/22/20 11/22/20 Range/Units 11:00 13:00 Unknown WBC 21.5 H (4.5-11.0) K/mm3 RDW (13.2-15.2) % Plt Count 37 L (140-440) K/mm3 PT (12.2-14.9) Sec. INR (0.87-1.13) Fibrinogen (211-480) mg/dl D-Dimer (0-234) ng/mlDDU ABG pH 7.545 H (7.320-7.450) POC ABG pCO2 29.3 L (32.0-48.0) mmHg ABG Hemoglobin 10.3 L (12.0-17.5) ABG Potassium 3.0 L (3.40-4.50) mmol/L ABG Chloride 111.0 H (98-107) mmol/L ABG Glucose 107 H (65-95) mg/dL Carboxyhemoglobin 0.1 L (0.5-1.5) Sodium (137-145) mmol/L Potassium (3.6-5.0) mmol/L Chloride (98-107) mmol/L Carbon Dioxide (22-30) mmol/L BUN (7-17) mg/dL Creatinine (0.6-1.2) mg/dL Glucose (65-100) mg/dL POC Glucose (70-105) mg/dL Lactic Acid (0.7-2.0) mmol/L Calcium (8.4-10.2) mg/dL Magnesium (1.7-2.3) mg/dL Ferritin (10.0-200.0) ng/mL Total Bilirubin (0.1-1.2) mg/dL AST (5-40) units/L ALT (7-56) units/L C-Reactive Protein 1.90 H (0.00-1.30) mg/dL Total Protein (6.3-8.2) g/dL Albumin (3.9-5) g/dL Arterial Blood Glucose 107 H (65-95) mg/dL Arterial Blood Ionized Calcium 3.3 L (4.6-5.3) mg/dL Crossmatch 11/22/20 11/22/20 11/22/20 Range/Units Unknown Unknown Unknown WBC 16.4 H (4.5-11.0) K/mm3 RDW 15.4 H (13.2-15.2) % Plt Count 40 L (140-440) K/mm3 PT (12.2-14.9) Sec. INR (0.87-1.13) Fibrinogen (211-480) mg/dl D-Dimer (0-234) ng/mlDDU ABG pH (7.320-7.450) POC ABG pCO2 (32.0-48.0) mmHg ABG Hemoglobin (12.0-17.5) ABG Potassium (3.40-4.50) mmol/L ABG Chloride (98-107) mmol/L ABG Glucose (65-95) mg/dL Carboxyhemoglobin (0.5-1.5) Sodium 152 H (137-145) mmol/L Potassium 2.8 L* D (3.6-5.0) mmol/L Chloride 108.9 H (98-107) mmol/L Carbon Dioxide (22-30) mmol/L BUN 76 H (7-17) mg/dL Creatinine 1.7 H (0.6-1.2) mg/dL Glucose (65-100) mg/dL POC Glucose (70-105) mg/dL Lactic Acid (0.7-2.0) mmol/L Calcium 6.8 L (8.4-10.2) mg/dL Magnesium 1.50 L (1.7-2.3) mg/dL Ferritin 1559.0 H (10.0-200.0) ng/mL Total Bilirubin 1.50 H (0.1-1.2) mg/dL AST 4887 H (5-40) units/L ALT 1552 H (7-56) units/L C-Reactive Protein (0.00-1.30) mg/dL Total Protein 3.8 L (6.3-8.2) g/dL Albumin 2.2 L (3.9-5) g/dL Arterial Blood Glucose (65-95) mg/dL Arterial Blood Ionized Calcium (4.6-5.3) mg/dL Crossmatch 11/22/20 11/22/20 Range/Units Unknown Unknown WBC (4.5-11.0) K/mm3 RDW (13.2-15.2) % Plt Count (140-440) K/mm3 PT (12.2-14.9) Sec. INR (0.87-1.13) Fibrinogen (211-480) mg/dl D-Dimer (0-234) ng/mlDDU ABG pH (7.320-7.450) POC ABG pCO2 (32.0-48.0) mmHg ABG Hemoglobin (12.0-17.5) ABG Potassium (3.40-4.50) mmol/L ABG Chloride (98-107) mmol/L ABG Glucose (65-95) mg/dL Carboxyhemoglobin (0.5-1.5) Sodium 152 H (137-145) mmol/L Potassium 2.8 L* (3.6-5.0) mmol/L Chloride 107.5 H (98-107) mmol/L Carbon Dioxide 32 H (22-30) mmol/L BUN 75 H (7-17) mg/dL Creatinine 1.7 H (0.6-1.2) mg/dL Glucose 130 H (65-100) mg/dL POC Glucose (70-105) mg/dL Lactic Acid 5.20 H* (0.7-2.0) mmol/L Calcium 6.5 L (8.4-10.2) mg/dL Magnesium (1.7-2.3) mg/dL Ferritin (10.0-200.0) ng/mL Total Bilirubin 1.40 H (0.1-1.2) mg/dL AST 4513 H (5-40) units/L ALT 1512 H (7-56) units/L C-Reactive Protein (0.00-1.30) mg/dL Total Protein 3.4 L (6.3-8.2) g/dL Albumin 2.1 L (3.9-5) g/dL Arterial Blood Glucose (65-95) mg/dL Arterial Blood Ionized Calcium (4.6-5.3) mg/dL Crossmatch
--- NOTE | 2020-11-22 18:07 | XRay Report ---
XR abdomen 1V ap INDICATION: OG tube placement COMPARISON: None. FINDINGS/IMPRESSION: Enteric tube terminates in the proximal stomach. Side-port is beneath the junction. Signer Name: Glynn Masters MD Signed: 11/22/2020 6:03 PM Workstation Name: [email or web address]
[2020-11-22] MEDS ORDERED: PANTOPRAZOLE 40 MG INJ IV SCH (22:00)
--- NOTE | 2020-11-23 02:55 | XRay Report ---
CHEST 1 VIEW 11/23/2020 1:19 AM INDICATION / CLINICAL INFORMATION: hypoxia. COMPARISON: 11/21/2020 FINDINGS: SUPPORT DEVICES: Esophageal pH probe coiled in cervical esophagus. New NG tube enters stomach. Right PICC line, ET tube and left internal jugular CVL unchanged in position. HEART / MEDIASTINUM: No significant abnormality. LUNGS / PLEURA: Mild to moderate interstitial edema and small bilateral pleural effusions have increa sed. No pneumothorax. ADDITIONAL FINDINGS: No significant additional findings. IMPRESSION: 1. Worsening CHF Signer Name: Guanakito Orellana MD Signed: 11/23/2020 2:50 AM Workstation Name: [email or web address]
[2020-11-23] MEDS: CEFEPIME/NS 2 GM/100 ML 2 GM/100 ML BAG IV SCH ×2 (03:14→14:05)
[2020-11-23] MEDS: POTASSIUM CHLORIDE 20 MEQ 20 MEQ/100 ML BAG IV SCH ×4 (03:14→12:20)
[2020-11-23] MEDS: INSULIN REGULAR, HUMAN 100 UNITS/1 ML SUB-Q SCH ×4 (05:32→23:15)
[2020-11-23 05:48] LABS: Hematocrit 28.8 % (30.3-42.9); Hemoglobin 9.6 gm/dl (10.1-14.3); Mean Corpuscular HGB Conc 33 % (30-34); Mean Corpuscular Volume 88 fl (79-97); Red Blood Count 3.27 M/mm3 (3.65-5.03); Red Cell Distribution Width 15.7 % (13.2-15.2)
[2020-11-23 05:50] LABS: Platelet Count 38 K/mm3 (140-440)
[2020-11-23 05:56] LABS: INR 1.75 (0.87-1.13)
[2020-11-23] MEDS: VASOPRESSIN 20 UNIT in SODIUM CHLORIDE 0.9% 100 ML IV SCH (06:00)
[2020-11-23 06:12] LABS: Albumin 1.6 g/dL (3.9-5)
--- NOTE | 2020-11-23 10:03 | Progress Note ---
Assessment and Plan 1. Acute kidney injury: KATLYN in the setting of severe Covid infection. Patient is also hypotensive. Received IV contrast 11/13. CT abdomen showed non-obstructive 7 mm distal left ureteral stone. Low FeNa. Monitor renal function. Creatinine level is increasing now. Avoid nephrotoxic agents. Meds dosage based on GFR. 2. FEN: Hypernatremia, started on IV D5W, monitor. Metabolic alkalosis, Doamox, monitor. Hypokalemia, replete K as needed, monitor. Replete Calcium. Monitor lytes and volume status. 3. Acute respiratory failure with hypoxemia: 2/2 Covid PNA. Currently on vent, wean as tolerated. 4. Shock: On Levophed and Vasopressin. Monitor. 5. Covid PNA: Followed by ID. 6. L ureteral stone: S/p b/l stent. Seen by Urologist. 7. Elevated ALT & AST: Trend. 8. DM type 2: Monitor. Subjective: Patient was seen and examined at the bedside. 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 Examination: General appearance: well-developed, appears stated age, intubated on vent HEENT: atraumatic, no icterus Neck: trachea midline Respiratory: MV sounds Heart: S1S2, regular, no murmur Abdomen: soft, bowel sounds heard, NT Integumentary: no obvious rash Neurologic: not responding Ext: LE and dependent edema noted Subjective Date of service: 11/23/20 Principal diagnosis: Ac hypoxemic resp failure; COVID-19 infxn; Pneumonia; KATLYN; AMS; Sepsis Objective - Vital Signs Vital signs: Vital Signs - 12hr 11/22/20 11/22/20 11/22/20 22:01 22:15 22:31 Temperature Pulse Rate 83 83 82 Respiratory 22 23 22 Rate Blood Pressure O2 Sat by Pulse 93 97 91 Oximetry 11/22/20 11/22/20 11/22/20 22:45 23:01 23:10 Temperature Pulse Rate 82 80 Respiratory 23 21 21 Rate Blood Pressure O2 Sat by Pulse 91 91 91 Oximetry 11/22/20 11/22/20 11/22/20 23:15 23:30 23:45 Temperature Pulse Rate 75 79 78 Respiratory 18 17 20 Rate Blood Pressure 153/58 O2 Sat by Pulse 92 91 93 Oximetry 11/22/20 11/23/20 11/23/20 23:50 00:00 00:01 Temperature 98.9 F Pulse Rate 75 77 Respiratory 20 Rate Blood Pressure 131/53 O2 Sat by Pulse 94 96 Oximetry 11/23/20 11/23/20 11/23/20 00:07 00:15 00:31 Temperature Pulse Rate 78 79 79 Respiratory 20 20 21 Rate Blood Pressure O2 Sat by Pulse 97 96 98 Oximetry 11/23/20 11/23/20 11/23/20 00:45 01:01 01:15 Temperature Pulse Rate 76 76 78 Respiratory 19 19 21 Rate Blood Pressure O2 Sat by Pulse 92 98 97 Oximetry 11/23/20 11/23/20 11/23/20 01:31 01:45 02:01 Temperature Pulse Rate 75 74 74 Respiratory 20 18 22 Rate Blood Pressure O2 Sat by Pulse 96 91 98 Oximetry 11/23/20 11/23/20 11/23/20 02:15 02:31 02:45 Temperature Pulse Rate 76 76 76 Respiratory 19 20 21 Rate Blood Pressure O2 Sat by Pulse 98 91 Oximetry 11/23/20 11/23/20 11/23/20 02:57 03:01 03:15 Temperature 99.3 F Pulse Rate 73 73 Respiratory 19 14 Rate Blood Pressure O2 Sat by Pulse Oximetry 11/23/20 11/23/20 11/23/20 03:31 03:45 03:59 Temperature Pulse Rate 74 69 70 Respiratory 17 19 Rate Blood Pressure 133/56 O2 Sat by Pulse 100 94 Oximetry 11/23/20 11/23/20 11/23/20 04:00 04:01 04:15 Temperature Pulse Rate 69 69 70 Respiratory 17 21 Rate Blood Pressure O2 Sat by Pulse 91 Oximetry 11/23/20 11/23/20 11/23/20 04:31 04:45 05:01 Temperature Pulse Rate 72 66 64 Respiratory 20 20 20 Rate Blood Pressure O2 Sat by Pulse Oximetry 11/23/20 11/23/20 05:15 08:12 Temperature Pulse Rate 62 56 L Respiratory 17 Rate Blood Pressure 130/45 O2 Sat by Pulse 99 98 Oximetry - Lab 11/23/20 04:00 11/23/20 04:00 Most recent lab results ABG pH 7.518 (7.320-7.450) H 11/23/20 05:04 ABG O2 Saturation 96.0 (0-100) 11/23/20 05:04 Calcium 6.0 mg/dL (8.4-10.2) L 11/23/20 04:00 Phosphorus 4.50 mg/dL (2.5-4.5) 11/22/20 Unknown Magnesium 2.10 mg/dL (1.7-2.3) 11/23/20 04:00 Urine Creatinine 80.2 mg/dL (0.1-20.0) H 11/14/20 06:15 Urine Sodium 28 mmol/L 11/14/20 06:15 Medications & Allergies - Medications Allergies/Adverse Reactions: Allergies morphine Adverse Reaction (Verified 05/26/13 19:22) Nausea Home Medications: Home Medications Medication Instructions Recorded Confirmed Last Taken Type Acetaminophen [Tylenol] 325 mg PO DAILY #10 tablet 05/26/13 10/17/14 10/16/14 Rx Baclofen [Lioresal] 10 mg PO TID PRN 05/26/13 10/17/14 10/16/14 History Diazepam [Valium] 10 mg PO BID 05/26/13 10/17/14 10/16/14 History PARoxetine [Paxil] 10 mg PO DAILY 05/26/13 10/17/14 10/16/14 19:00 History Quetiapine Fumarate [SEROquel XR] 200 mg PO DAILY 05/26/13 10/17/14 10/16/14 History rOPINIRole [Requip] 1 mg PO QHS 05/26/13 10/17/14 10/16/14 19:00 History QUEtiapine [SEROquel] 200 mg PO QHS 05/28/13 10/17/14 10/16/14 19:00 History Famotidine [Pepcid] 10 mg PO BID #60 tablet 06/02/13 10/17/14 10/16/14 Rx levoFLOXacin [Levaquin] 750 mg PO QDAY #7 tablet 06/02/13 10/17/14 10/16/14 Rx metroNIDAZOLE [Flagyl] 500 mg PO Q8HR #30 tablet 06/02/13 10/17/14 10/16/14 Rx Hydromorphone HCl [Dilaudid] 4 mg PO 10/17/14 10/17/14 10/16/14 History Oxycodone HCl/Acetaminophen 1 each PO Q6HR PRN 10/17/14 10/17/14 10/16/14 History [Percocet 10-325 mg] Oxycodone HCl/Acetaminophen 1 each PO Q6HR PRN #30 tablet 10/18/14 Unknown Rx [Percocet 10-325 mg] Active Medications: Generic Name Dose Route Start Last Admin Trade Name Freq PRN Reason Stop Dose Admin Acetaminophen 650 mg 11/11/20 22:11 11/19/20 11:30 Acetaminophen 325 Mg Tab PO 650 mg Q4H PRN Administration Pain MILD(1-3)/Fever >100.5/ERAZO Albuterol 2.5 mg 11/13/20 07:40 Albuterol 2.5 Mg/3 Ml Nebu IH Q4HRT PRN Shortness Of Breath Lipase/Protease/Amylase 1 each 11/13/20 17:32 Lipase 10,500/Protease 25,000/Amylase 43,750 (Units) Dr Cap FEEDTUBE PRN PRN For Clogged Feeding Tube Ascorbic Acid 500 mg 11/13/20 22:00 11/22/20 21:05 Ascorbic Acid 500 Mg Tab PO Not Given BID CARLOS Baclofen 10 mg 11/11/20 22:09 Baclofen 10 Mg Tab PO TID PRN MUSCLE SPASMS & PAIN Dextrose 50 ml 11/13/20 16:43 11/22/20 05:27 Dextrose 50% In Water (25gm) 50 Ml Syringe IV 50 ml Q30MIN PRN Administration Hypoglycemia Protocol Fentanyl 50 mcg 11/13/20 05:33 Fentanyl 100 Mcg/2 Ml Inj IV Q10MIN PRN ANALGESIA Hydrophilic Ointment 1 applic 11/13/20 05:33 Lip Therapy Vaseline TP Q2HR PRN Dry Lips Fentanyl Citrate 2,000 mcg in 100 mls @ 3.81 mls/hr 11/13/20 06:00 11/21/20 15:00 Fentanyl Drip Premix IV 0 mcg/kg/hr TITR CARLOS 0 mls/hr Titration Protocol 1 MCG/KG/HR NORepinephrine/NS 8 MG-250 ML 8 mg in 250 mls @ 3.75 mls/hr 11/13/20 15:00 11/23/20 02:02 Norepinephrine/Ns 8 Mg-250 Ml (Double Conc) IV 4 mcg/min TITRATE CARLOS 7.5 mls/hr Titration Protocol 2 MCG/MIN Vasopressin 20 unit/ Sodium 101 mls @ 9.09 mls/hr 11/19/20 09:00 11/23/20 06:00 Chloride IV 0.03 units/min TITR CARLOS 9.09 mls/hr Administration Protocol 0.03 UNITS/MIN Cefepime HCl 2 gm in 100 mls @ 200 mls/hr 11/20/20 14:00 11/23/20 03:14 Cefepime/Ns 2 Gm/100 Ml IV 200 mls/hr Q12H CARLOS Administration Protocol Vancomycin HCl 1,500 mg/ 530 mls @ 333.333 mls/hr 11/20/20 15:00 11/22/20 16:02 Sodium Chloride IV 333.333 mls/hr Q24H CARLOS Administration Phenylephrine HCl 100 mg/ 100 mls @ 3 mls/hr 11/21/20 08:15 11/21/20 17:53 Sodium Chloride IV 0 mcg/min TITR CARLOS 0 mls/hr Titration Protocol 50 MCG/MIN Epinephrine 16 mg/ Sodium 250 mls @ 1.875 mls/hr 11/21/20 11:00 11/22/20 01:00 Chloride IV 0 mcg/min TITR CARLOS 0 mls/hr Titration Protocol 2 MCG/MIN Pantoprazole Sodium 80 mg/ 100 mls @ 10 mls/hr 11/22/20 21:14 11/22/20 21:41 Sodium Chloride IV 8 mg/hr DIRECT CARLOS 10 mls/hr Administration 8 MG/HR Potassium Chloride 20 meq in 100 mls @ 100 mls/hr 11/23/20 10:00 Kcl 20meq/100ml IV 11/23/20 11:[address] [facility] Insulin Human Regular 0 units 11/21/20 00:00 11/23/20 05:32 Insulin Regular, Human 100 Units/1 Ml SUB-Q Not Given Q6HR [facility] Protocol Multi-Ingred Cream/Lotion/Oil/Oint 1 applic 11/13/20 05:33 Mineral Oil/Petrolatum, White Ophth Oint 3.5 Gm OU Q4HR PRN Dry Eye(s) Ondansetron HCl 4 mg 11/11/20 22:11 Ondansetron 4 Mg/2 Ml Inj IV Q3H PRN Nausea And Vomiting Simple Syrup 15 ml 11/13/20 17:32 Simple Syrup 15 Ml FEEDTUBE PRN PRN Hypoglycemia Simple Syrup 30 ml 11/13/20 17:32 Simple Syrup 15 Ml FEEDTUBE PRN PRN Hypoglycemia Sodium Bicarbonate 325 mg 11/13/20 17:32 Sodium Bicarbonate 325 Mg Tab FEEDTUBE PRN PRN For Clogged Feeding Tube Sodium Chloride 10 ml 11/12/20 10:00 11/22/20 21:02 Sodium Chloride 0.9% 10 Ml Flush Syringe IV 10 ml BID CARLOS Administration Sodium Chloride 10 ml 11/11/20 22:11 11/22/20 20:50 Sodium Chloride 0.9% 10 Ml Flush Syringe IV 10 ml PRN PRN Administration LINE FLUSH Zinc Sulfate 220 mg 11/13/20 22:00 11/22/20 21:05 Zinc Sulfate 220 Mg Cap PO Not Given BID CARLOS
[2020-11-23] MEDS: PANTOPRAZOLE 80 MG in SODIUM CHLORIDE 0.9% 100 ML IV SCH ×2 (11:12→18:27)
[2020-11-23] MEDS: ZINC SULFATE 220 MG CAP PO SCH ×2 (11:13→22:10)
[2020-11-23] MEDS: ASCORBIC ACID 500 MG TAB PO SCH ×2 (11:13→22:10)
[2020-11-23] MEDS ORDERED: CALCIUM GLUCONATE 2,000 MG in SODIUM CHLORIDE 0.9% 100 ML IV ONE (11:30)
--- NOTE | 2020-11-23 13:39 | Progress Note ---
Assessment and Plan Acute hypoxemic respiratory failure on MVS COVID-19 infection Pneumonia Severe Sepsis Acute toxic metabolic encephalopathy Inadvertently placed left carotid line Acute kidney injury Nephrolithiasis Leukocytosis Metabolic acidosis Mild hypernatremia - chenge IVF to D51/2NS @ 75 ml's/hr X 2 liters then re-evaluate re: hypotension & NPO status - RT asked to advance ETT to prior position at the lips - reduce set TV to 400 - bicarbonate drip stopped - Potassium replaced - continue to hold CT angio abd & Pelvis till more as long as H&H stable and no gross bleeding - continue NGT to LIS to monitor for G.I. bleeding - continue to hold anticoagulation re: risk benefit ratio - continue PPI drip - wean vasopressors for MAP > 65 mmHg (stop vasopressin and titrate Levophed) - continue care as below otherwise; - continue Daily SAT and SBT assessment as tolerated - continue to wean supplemental oxygen for target O2 sat's > 90% acutely - VAP bundle addressed - continue lung protective strategies - continue bronchodilators with pulmonary hygiene per RT - wean per pulmonary driven protocols otherwise - continue accuchecks with glycemic control per SSI (While critically ill target blood glucose of 140-180 mg/dL; avoid hypoglycemia) - sedation prn for target RASS 0 to -1 - avoid nephrotoxins, renally dose all medications - continue to avoid benzodiazepine's, reduce the possibility of delirium - AB's per ID rec's - prn analgesia per CPOT score - Maintenance of sleep-wake cycle, avoid delirium - continue enteral nutritional support at goal rate as tolerated - G.I. & VTE prophylaxis - PT/OT/ROM exercises - continue mobility protocols for pressure ulcer prophylaxis - Monitor hemodynamics closely - continue other care per attending / other consultants - discharge planning ongoing concurrently COVID SPECIFIC INTERVENTIONS - Remdesivir as per ID/Pulmonary developed protocols - continue systemic steroids for severe COVID-19 infection - s/p Actemra - follow repeat COVID tests results - zinc and vitamin C supplementation - Monitor inflammatory markers per facility protocol - ferritin, Ddimer, CRP - therapeutic anticoagulation per system Protocol based on d-dimer and clinical considerations (re: Carotid artery thrombus) - Continue contact and airborne isolation .... Re-evaluate in am & prn CONDITION: CRITICAL PROGNOSIS: GUARDED CODE STATUS: DNR/AND The high probability of a clinically significant, sudden or life-threatening deterioration of the [respiratory, cardiovascular, renal & neurologic] system(s) required my full and direct attention, intervention and personal management. The aggregate critical care time was [32] minutes without overlap. Time includes spent on; [x] Data Review and interpretation [x] Patient assessment and monitoring of vital signs [x] Documentation [x] Medication orders and management Subjective Date of service: 11/23/20 Principal diagnosis: Ac hypoxemic resp failure; COVID-19 infxn; Pneumonia; KATLYN; AMS; Sepsis Interval history: Patient is seen today for: Acute hypoxemic respiratory failure; COVID-19 infxn; Pneumonia; Acute toxic metabolic encephalopathy; Carotid Artery thrombus; KATLYN; Leukocytosis Seen and examined at bedside; 24hour events reviewed; nursing and respiratory care staff consulted; no adverse overnight events reported to me; resting in bed; remains on MVS; AMS is persistent but pupils reactive; remains on vasopressors but minimal doses; NGT effluent without bright red blood and no BRBPR Objective Vital Signs - 12hr 11/23/20 11/23/20 11/23/20 01:45 02:01 02:15 Temperature Pulse Rate 74 74 76 Pulse Rate [ From Monitor] Respiratory 18 22 19 Rate Blood Pressure O2 Sat by Pulse 91 98 98 Oximetry 11/23/20 11/23/20 11/23/20 02:31 02:45 02:57 Temperature 99.3 F Pulse Rate 76 76 Pulse Rate [ From Monitor] Respiratory 20 21 Rate Blood Pressure O2 Sat by Pulse 91 Oximetry 11/23/20 11/23/20 11/23/20 03:01 03:15 03:31 Temperature Pulse Rate 73 73 74 Pulse Rate [ From Monitor] Respiratory 19 14 17 Rate Blood Pressure O2 Sat by Pulse 100 Oximetry 11/23/20 11/23/20 11/23/20 03:45 03:59 04:00 Temperature Pulse Rate 69 70 69 Pulse Rate [ From Monitor] Respiratory 19 Rate Blood Pressure 133/56 O2 Sat by Pulse 94 91 Oximetry 11/23/20 11/23/20 11/23/20 04:01 04:15 04:31 Temperature Pulse Rate 69 70 72 Pulse Rate [ From Monitor] Respiratory 17 21 20 Rate Blood Pressure O2 Sat by Pulse Oximetry 11/23/20 11/23/20 11/23/20 04:45 05:01 05:15 Temperature Pulse Rate 66 64 62 Pulse Rate [ From Monitor] Respiratory 20 20 17 Rate Blood Pressure O2 Sat by Pulse 99 Oximetry 11/23/20 11/23/20 11/23/20 05:31 05:45 06:01 Temperature Pulse Rate 67 64 69 Pulse Rate [ From Monitor] Respiratory 19 17 19 Rate Blood Pressure O2 Sat by Pulse 98 99 98 Oximetry 11/23/20 11/23/20 11/23/20 06:15 06:31 06:45 Temperature Pulse Rate 67 63 66 Pulse Rate [ From Monitor] Respiratory 17 16 19 Rate Blood Pressure O2 Sat by Pulse 98 98 98 Oximetry 11/23/20 11/23/20 11/23/20 07:01 07:15 07:31 Temperature Pulse Rate 64 57 L 58 L Pulse Rate [ From Monitor] Respiratory 16 16 16 Rate Blood Pressure O2 Sat by Pulse 98 98 98 Oximetry 11/23/20 11/23/20 11/23/20 07:45 08:00 08:01 Temperature Pulse Rate 60 53 L 57 L Pulse Rate [ 54 L From Monitor] Respiratory 15 21 16 Rate Blood Pressure O2 Sat by Pulse 98 98 98 Oximetry 11/23/20 11/23/20 11/23/20 08:12 08:15 08:31 Temperature Pulse Rate 56 L 57 L 59 L Pulse Rate [ From Monitor] Respiratory 15 18 Rate Blood Pressure 130/45 O2 Sat by Pulse 98 98 95 Oximetry 11/23/20 11/23/20 11/23/20 08:45 09:01 09:15 Temperature Pulse Rate 61 56 L 64 Pulse Rate [ From Monitor] Respiratory 22 16 21 Rate Blood Pressure O2 Sat by Pulse 95 96 97 Oximetry 11/23/20 11/23/20 11/23/20 09:31 09:45 10:01 Temperature Pulse Rate 56 L 54 L 52 L Pulse Rate [ From Monitor] Respiratory 21 17 15 Rate Blood Pressure O2 Sat by Pulse 98 98 98 Oximetry 11/23/20 11/23/20 11/23/20 10:15 10:31 10:45 Temperature Pulse Rate 54 L 57 L 55 L Pulse Rate [ From Monitor] Respiratory 18 17 15 Rate Blood Pressure O2 Sat by Pulse 97 98 98 Oximetry 11/23/20 11/23/20 11/23/20 11:01 11:13 11:15 Temperature Pulse Rate 55 L 61 61 Pulse Rate [ From Monitor] Respiratory 16 17 Rate Blood Pressure 190/66 O2 Sat by Pulse 98 97 97 Oximetry 11/23/20 11/23/20 11/23/20 11:31 11:45 12:00 Temperature Pulse Rate 60 60 51 L Pulse Rate [ 52 L From Monitor] Respiratory 19 20 17 Rate Blood Pressure O2 Sat by Pulse 87 96 98 Oximetry 11/23/20 11/23/20 11/23/20 12:01 12:15 12:31 Temperature Pulse Rate 52 L 52 L 63 Pulse Rate [ From Monitor] Respiratory 22 18 30 H Rate Blood Pressure O2 Sat by Pulse 97 98 98 Oximetry 11/23/20 11/23/20 12:45 13:01 Temperature Pulse Rate 60 62 Pulse Rate [ From Monitor] Respiratory 30 H 30 H Rate Blood Pressure O2 Sat by Pulse 96 96 Oximetry Constitutional: appears uncomfortable, other (elderly obese female with mildly increased respiratory effort at rest on MVS) Eyes: non-icteric ENT: oropharynx moist, other (ETT 20 cm NYA) Neck: supple, no lymphadenopathy, no JVD Effort: mildly labored Ascultation: Bilateral: diminished breath sounds, rhonchi Percussion: Bilateral: not dull Cardiovascular: regular rate and rhythm, other (S1,S2) Gastrointestinal: normoactive bowel sounds, soft, non-tender, non-distended (protuberant) Integumentary: normal Extremities: no cyanosis, no edema, pink and warm, pulses normal, other (Right femoral CVL) Neurologic: pupils equal and round, unable to assess Psychiatric: other (unable to assess re: AMS) CBC and BMP: 11/23/20 04:00 11/23/20 04:00 ABG, PT/INR, D-dimer: ABG ABG pH 7.518 (7.320-7.450) H 11/23/20 05:04 POC ABG pCO2 14.6 mmHg (32.0-48.0) L 11/23/20 05:04 POC ABG pO2 84.4 mmHg (83-108) 11/23/20 05:04 POC ABG HCO3 11.6 11/23/20 05:04 ABG O2 Saturation 96.0 (0-100) 11/23/20 05:04 PT/INR, D-dimer PT 21.0 Sec. (12.2-14.9) H 11/23/20 04:00 INR 1.75 (0.87-1.13) H 11/23/20 04:00 D-Dimer 2595.90 ng/mlDDU (0-234) H 11/22/20 02:00 Abnormal lab findings: Abnormal Labs 11/11/20 11/11/20 11/11/20 13:39 13:39 16:59 WBC 19.5 H RBC 5.93 H Hgb 17.0 H Hct 50.6 H RDW Plt Count 449 H Lymph % (Auto) 12.0 L [place] % (Auto) 7.7 H Lymph # (Auto) [place] # (Auto) 1.5 H Seg Neutrophils % 80.0 H Seg Neuts % (Manual) Lymphocytes % (Manual) Monocytes % (Manual) Seg Neutrophils # 15.6 H Seg Neutrophils # Man Lymphocytes # (Manual) Monocytes # (Manual) PT INR Fibrinogen D-Dimer 1525.92 H Heparin Anti-Xa Level ABG pH POC ABG pCO2 POC ABG pO2 ABG Hemoglobin ABG Oxyhemoglobin ABG Sodium ABG Potassium ABG Chloride ABG Glucose Carboxyhemoglobin Sodium Potassium 3.5 L Chloride 97.3 L Carbon Dioxide BUN 30 H Creatinine 0.5 L Glucose 128 H POC Glucose Hemoglobin A1c Lactic Acid Calcium Phosphorus Magnesium Ferritin Total Bilirubin AST ALT Lactate Dehydrogenase C-Reactive Protein Total Protein Albumin 3.8 L Arterial Blood Glucose Arterial Blood Ionized Calcium Urine WBC (Auto) U Epithel Cells (Auto) Urine Creatinine Coronavirus (PCR) Crossmatch 11/11/20 11/11/20 11/11/20 16:59 17:12 Unknown WBC RBC Hgb Hct RDW Plt Count Lymph % (Auto) [place] % (Auto) Lymph # (Auto) [place] # (Auto) Seg Neutrophils % Seg Neuts % (Manual) Lymphocytes % (Manual) Monocytes % (Manual) Seg Neutrophils # Seg Neutrophils # Man Lymphocytes # (Manual) Monocytes # (Manual) PT INR Fibrinogen D-Dimer Heparin Anti-Xa Level ABG pH 7.501 H POC ABG pCO2 POC ABG pO2 55.0 L ABG Hemoglobin ABG Oxyhemoglobin 89.5 L ABG Sodium ABG Potassium 3.2 L ABG Chloride ABG Glucose 131 H Carboxyhemoglobin Sodium Potassium Chloride Carbon Dioxide BUN Creatinine Glucose 117 H POC Glucose Hemoglobin A1c Lactic Acid Calcium Phosphorus Magnesium Ferritin Total Bilirubin AST ALT Lactate Dehydrogenase 204 H C-Reactive Protein Total Protein Albumin Arterial Blood Glucose 131 H Arterial Blood Ionized Calcium Urine WBC (Auto) U Epithel Cells (Auto) Urine Creatinine Coronavirus (PCR) Positive A Crossmatch 11/12/20 11/12/20 11/12/20 05:07 05:07 05:07 WBC 16.7 H RBC 5.74 H Hgb 16.6 H Hct 50.3 H RDW Plt Count 450 H Lymph % (Auto) 12.1 L [place] % (Auto) 7.5 H Lymph # (Auto) [place] # (Auto) 1.3 H Seg Neutrophils % 77.9 H Seg Neuts % (Manual) Lymphocytes % (Manual) Monocytes % (Manual) Seg Neutrophils # 13.0 H Seg Neutrophils # Man Lymphocytes # (Manual) Monocytes # (Manual) PT INR Fibrinogen D-Dimer Heparin Anti-Xa Level ABG pH POC ABG pCO2 POC ABG pO2 ABG Hemoglobin ABG Oxyhemoglobin ABG Sodium ABG Potassium ABG Chloride ABG Glucose Carboxyhemoglobin Sodium 147 H Potassium Chloride Carbon Dioxide 35 H D BUN 34 H Creatinine Glucose 117 H POC Glucose Hemoglobin A1c 6.6 H Lactic Acid Calcium 11.1 H Phosphorus Magnesium Ferritin Total Bilirubin AST ALT Lactate Dehydrogenase C-Reactive Protein Total Protein Albumin Arterial Blood Glucose Arterial Blood Ionized Calcium Urine WBC (Auto) U Epithel Cells (Auto) Urine Creatinine Coronavirus (PCR) Crossmatch 11/12/20 11/13/20 11/13/20 23:58 01:36 04:00 WBC RBC Hgb Hct RDW Plt Count Lymph % (Auto) [place] % (Auto) Lymph # (Auto) [place] # (Auto) Seg Neutrophils % Seg Neuts % (Manual) Lymphocytes % (Manual) Monocytes % (Manual) Seg Neutrophils # Seg Neutrophils # Man Lymphocytes # (Manual) Monocytes # (Manual) PT INR Fibrinogen D-Dimer Heparin Anti-Xa Level ABG pH POC ABG pCO2 POC ABG pO2 ABG Hemoglobin ABG Oxyhemoglobin ABG Sodium 147.3 H ABG Potassium 3.2 L ABG Chloride 109.0 H ABG Glucose 118 H Carboxyhemoglobin 0.3 L Sodium Potassium 3.1 L Chloride Carbon Dioxide BUN 64 H Creatinine 2.2 H D Glucose 105 H POC Glucose 181 H Hemoglobin A1c Lactic Acid Calcium 8.3 L D Phosphorus Magnesium Ferritin Total Bilirubin AST 366 H ALT 316 H Lactate Dehydrogenase C-Reactive Protein Total Protein 5.4 L D Albumin 2.5 L Arterial Blood Glucose 118 H Arterial Blood Ionized Calcium Urine WBC (Auto) U Epithel Cells (Auto) Urine Creatinine Coronavirus (PCR) Crossmatch 11/13/20 11/13/20 11/13/20 05:23 08:22 09:51 WBC 15.9 H RBC Hgb Hct 44.4 H RDW Plt Count Lymph % (Auto) 5.7 L [place] % (Auto) 9.0 H Lymph # (Auto) 0.9 L [place] # (Auto) 1.4 H Seg Neutrophils % 85.3 H Seg Neuts % (Manual) Lymphocytes % (Manual) Monocytes % (Manual) Seg Neutrophils # 13.6 H Seg Neutrophils # Man Lymphocytes # (Manual) Monocytes # (Manual) PT 16.0 H INR 1.23 H Fibrinogen D-Dimer Heparin Anti-Xa Level ABG pH 7.243 L POC ABG pCO2 POC ABG pO2 82.0 L ABG Hemoglobin ABG Oxyhemoglobin 93.5 L ABG Sodium 146.6 H ABG Potassium 2.8 L ABG Chloride 114.0 H ABG Glucose 113 H Carboxyhemoglobin 0.4 L Sodium Potassium Chloride Carbon Dioxide BUN Creatinine Glucose POC Glucose Hemoglobin A1c Lactic Acid Calcium Phosphorus Magnesium Ferritin Total Bilirubin AST ALT Lactate Dehydrogenase C-Reactive Protein Total Protein Albumin Arterial Blood Glucose 113 H Arterial Blood Ionized Calcium Urine WBC (Auto) U Epithel Cells (Auto) Urine Creatinine Coronavirus (PCR) Crossmatch 11/13/20 11/13/20 11/13/20 09:51 09:51 09:51 WBC RBC Hgb Hct RDW Plt Count Lymph % (Auto) [place] % (Auto) Lymph # (Auto) [place] # (Auto) Seg Neutrophils % Seg Neuts % (Manual) Lymphocytes % (Manual) Monocytes % (Manual) Seg Neutrophils # Seg Neutrophils # Man Lymphocytes # (Manual) Monocytes # (Manual) PT INR Fibrinogen D-Dimer 5682.19 H Heparin Anti-Xa Level ABG pH POC ABG pCO2 POC ABG pO2 ABG Hemoglobin ABG Oxyhemoglobin ABG Sodium ABG Potassium ABG Chloride ABG Glucose Carboxyhemoglobin Sodium Potassium Chloride Carbon Dioxide BUN Creatinine Glucose 104 H POC Glucose Hemoglobin A1c Lactic Acid Calcium Phosphorus Magnesium Ferritin 1003.0 H Total Bilirubin AST ALT Lactate Dehydrogenase 1022 H C-Reactive Protein 5.50 H Total Protein Albumin Arterial Blood Glucose Arterial Blood Ionized Calcium Urine WBC (Auto) U Epithel Cells (Auto) Urine Creatinine Coronavirus (PCR) Crossmatch 11/13/20 11/14/20 11/14/20 21:50 00:50 04:25 WBC RBC Hgb Hct RDW Plt Count Lymph % (Auto) [place] % (Auto) Lymph # (Auto) [place] # (Auto) Seg Neutrophils % Seg Neuts % (Manual) Lymphocytes % (Manual) Monocytes % (Manual) Seg Neutrophils # Seg Neutrophils # Man Lymphocytes # (Manual) Monocytes # (Manual) PT INR Fibrinogen D-Dimer Heparin Anti-Xa Level 0.91 H ABG pH 7.215 L POC ABG pCO2 POC ABG pO2 ABG Hemoglobin ABG Oxyhemoglobin ABG Sodium 147.3 H ABG Potassium ABG Chloride 119.0 H ABG Glucose 156 H Carboxyhemoglobin Sodium Potassium Chloride Carbon Dioxide BUN Creatinine Glucose POC Glucose 59 L Hemoglobin A1c Lactic Acid Calcium Phosphorus Magnesium Ferritin Total Bilirubin AST ALT Lactate Dehydrogenase C-Reactive Protein Total Protein Albumin Arterial Blood Glucose 156 H Arterial Blood Ionized Calcium 4.3 L Urine WBC (Auto) U Epithel Cells (Auto) Urine Creatinine Coronavirus (PCR) Crossmatch 11/14/20 11/14/20 11/14/20 04:35 04:35 06:15 WBC RBC Hgb Hct 43.9 H RDW 15.3 H Plt Count Lymph % (Auto) [place] % (Auto) Lymph # (Auto) [place] # (Auto) Seg Neutrophils % Seg Neuts % (Manual) Lymphocytes % (Manual) Monocytes % (Manual) Seg Neutrophils # Seg Neutrophils # Man Lymphocytes # (Manual) Monocytes # (Manual) PT INR Fibrinogen D-Dimer Heparin Anti-Xa Level ABG pH POC ABG pCO2 POC ABG pO2 ABG Hemoglobin ABG Oxyhemoglobin ABG Sodium ABG Potassium ABG Chloride ABG Glucose Carboxyhemoglobin Sodium 151 H D Potassium Chloride 116.8 H Carbon Dioxide 18 L BUN 64 H Creatinine 2.1 H Glucose 148 H POC Glucose Hemoglobin A1c Lactic Acid Calcium 7.3 L Phosphorus Magnesium Ferritin Total Bilirubin AST ALT Lactate Dehydrogenase C-Reactive Protein 38.00 H Total Protein Albumin Arterial Blood Glucose Arterial Blood Ionized Calcium Urine WBC (Auto) > 182.0 H U Epithel Cells (Auto) 24.0 H Urine Creatinine Coronavirus (PCR) Crossmatch 11/14/20 11/14/20 11/14/20 06:15 06:15 12:01 WBC RBC Hgb Hct RDW Plt Count Lymph % (Auto) [place] % (Auto) Lymph # (Auto) [place] # (Auto) Seg Neutrophils % Seg Neuts % (Manual) Lymphocytes % (Manual) Monocytes % (Manual) Seg Neutrophils # Seg Neutrophils # Man Lymphocytes # (Manual) Monocytes # (Manual) PT INR Fibrinogen D-Dimer Heparin Anti-Xa Level 1.16 H ABG pH POC ABG pCO2 POC ABG pO2 ABG Hemoglobin ABG Oxyhemoglobin ABG Sodium ABG Potassium ABG Chloride ABG Glucose Carboxyhemoglobin Sodium Potassium Chloride Carbon Dioxide BUN Creatinine Glucose POC Glucose 107 H Hemoglobin A1c Lactic Acid Calcium Phosphorus Magnesium Ferritin Total Bilirubin AST ALT Lactate Dehydrogenase C-Reactive Protein Total Protein Albumin Arterial Blood Glucose Arterial Blood Ionized Calcium Urine WBC (Auto) U Epithel Cells (Auto) Urine Creatinine 80.2 H Coronavirus (PCR) Crossmatch 11/14/20 11/14/20 11/14/20 17:18 23:00 23:25 WBC RBC Hgb Hct RDW Plt Count Lymph % (Auto) [place] % (Auto) Lymph # (Auto) [place] # (Auto) Seg Neutrophils % Seg Neuts % (Manual) Lymphocytes % (Manual) Monocytes % (Manual) Seg Neutrophils # Seg Neutrophils # Man Lymphocytes # (Manual) Monocytes # (Manual) PT INR Fibrinogen D-Dimer Heparin Anti-Xa Level 0.96 H ABG pH POC ABG pCO2 POC ABG pO2 ABG Hemoglobin ABG Oxyhemoglobin ABG Sodium ABG Potassium ABG Chloride ABG Glucose Carboxyhemoglobin Sodium Potassium Chloride Carbon Dioxide BUN Creatinine Glucose POC Glucose 173 H 158 H Hemoglobin A1c Lactic Acid Calcium Phosphorus Magnesium Ferritin Total Bilirubin AST ALT Lactate Dehydrogenase C-Reactive Protein Total Protein Albumin Arterial Blood Glucose Arterial Blood Ionized Calcium Urine WBC (Auto) U Epithel Cells (Auto) Urine Creatinine Coronavirus (PCR) Crossmatch 11/15/20 11/15/20 11/15/20 01:45 04:57 04:57 WBC RBC Hgb Hct RDW 16.2 H Plt Count Lymph % (Auto) [place] % (Auto) Lymph # (Auto) [place] # (Auto) Seg Neutrophils % Seg Neuts % (Manual) Lymphocytes % (Manual) Monocytes % (Manual) Seg Neutrophils # Seg Neutrophils # Man Lymphocytes # (Manual) Monocytes # (Manual) PT INR Fibrinogen D-Dimer Heparin Anti-Xa Level ABG pH 7.246 L POC ABG pCO2 28.4 L POC ABG pO2 ABG Hemoglobin ABG Oxyhemoglobin ABG Sodium ABG Potassium ABG Chloride 116.0 H ABG Glucose 164 H Carboxyhemoglobin Sodium 147 H Potassium Chloride 114.0 H Carbon Dioxide 16 L BUN 68 H Creatinine 2.4 H Glucose 148 H POC Glucose Hemoglobin A1c Lactic Acid Calcium 7.3 L Phosphorus Magnesium Ferritin Total Bilirubin AST 395 H ALT 396 H Lactate Dehydrogenase 596 H C-Reactive Protein 34.50 H Total Protein 5.1 L Albumin 2.1 L Arterial Blood Glucose 164 H Arterial Blood Ionized Calcium 4.3 L Urine WBC (Auto) U Epithel Cells (Auto) Urine Creatinine Coronavirus (PCR) Crossmatch 11/15/20 11/15/20 11/15/20 04:57 04:57 05:20 WBC RBC Hgb Hct RDW Plt Count Lymph % (Auto) [place] % (Auto) Lymph # (Auto) [place] # (Auto) Seg Neutrophils % Seg Neuts % (Manual) Lymphocytes % (Manual) Monocytes % (Manual) Seg Neutrophils # Seg Neutrophils # Man Lymphocytes # (Manual) Monocytes # (Manual) PT INR Fibrinogen D-Dimer 3313.42 H Heparin Anti-Xa Level 0.81 H ABG pH POC ABG pCO2 POC ABG pO2 ABG Hemoglobin ABG Oxyhemoglobin ABG Sodium ABG Potassium ABG Chloride ABG Glucose Carboxyhemoglobin Sodium Potassium Chloride Carbon Dioxide BUN Creatinine Glucose POC Glucose 124 H Hemoglobin A1c Lactic Acid 3.00 H* Calcium Phosphorus Magnesium Ferritin Total Bilirubin AST ALT Lactate Dehydrogenase C-Reactive Protein Total Protein Albumin Arterial Blood Glucose Arterial Blood Ionized Calcium Urine WBC (Auto) U Epithel Cells (Auto) Urine Creatinine Coronavirus (PCR) Crossmatch 11/15/20 11/15/20 11/15/20 08:26 08:26 11:34 WBC RBC Hgb Hct RDW Plt Count Lymph % (Auto) [place] % (Auto) Lymph # (Auto) [place] # (Auto) Seg Neutrophils % Seg Neuts % (Manual) Lymphocytes % (Manual) Monocytes % (Manual) Seg Neutrophils # Seg Neutrophils # Man Lymphocytes # (Manual) Monocytes # (Manual) PT INR Fibrinogen D-Dimer Heparin Anti-Xa Level ABG pH POC ABG pCO2 POC ABG pO2 ABG Hemoglobin ABG Oxyhemoglobin ABG Sodium ABG Potassium ABG Chloride ABG Glucose Carboxyhemoglobin Sodium Potassium Chloride Carbon Dioxide BUN Creatinine Glucose POC Glucose 113 H Hemoglobin A1c Lactic Acid 2.60 H* Calcium Phosphorus Magnesium Ferritin 452.8 H Total Bilirubin AST ALT Lactate Dehydrogenase C-Reactive Protein Total Protein Albumin Arterial Blood Glucose Arterial Blood Ionized Calcium Urine WBC (Auto) U Epithel Cells (Auto) Urine Creatinine Coronavirus (PCR) Crossmatch 11/15/20 11/15/20 11/16/20 16:43 23:16 03:39 WBC RBC Hgb Hct RDW Plt Count Lymph % (Auto) [place] % (Auto) Lymph # (Auto) [place] # (Auto) Seg Neutrophils % Seg Neuts % (Manual) Lymphocytes % (Manual) Monocytes % (Manual) Seg Neutrophils # Seg Neutrophils # Man Lymphocytes # (Manual) Monocytes # (Manual) PT INR Fibrinogen D-Dimer Heparin Anti-Xa Level ABG pH 7.261 L POC ABG pCO2 31.2 L POC ABG pO2 117.3 H ABG Hemoglobin ABG Oxyhemoglobin ABG Sodium 135.8 L ABG Potassium ABG Chloride 112.0 H ABG Glucose 148 H Carboxyhemoglobin 0.4 L Sodium Potassium Chloride Carbon Dioxide BUN Creatinine Glucose POC Glucose 107 H 113 H Hemoglobin A1c Lactic Acid Calcium Phosphorus Magnesium Ferritin Total Bilirubin AST ALT Lactate Dehydrogenase C-Reactive Protein Total Protein Albumin Arterial Blood Glucose 148 H Arterial Blood Ionized Calcium 4.1 L Urine WBC (Auto) U Epithel Cells (Auto) Urine Creatinine Coronavirus (PCR) Crossmatch 11/16/20 11/16/20 11/16/20 04:51 11:28 17:15 WBC RBC Hgb Hct RDW Plt Count Lymph % (Auto) [place] % (Auto) Lymph # (Auto) [place] # (Auto) Seg Neutrophils % Seg Neuts % (Manual) Lymphocytes % (Manual) Monocytes % (Manual) Seg Neutrophils # Seg Neutrophils # Man Lymphocytes # (Manual) Monocytes # (Manual) PT INR Fibrinogen D-Dimer Heparin Anti-Xa Level ABG pH POC ABG pCO2 POC ABG pO2 ABG Hemoglobin ABG Oxyhemoglobin ABG Sodium ABG Potassium ABG Chloride ABG Glucose Carboxyhemoglobin Sodium Potassium Chloride Carbon Dioxide BUN Creatinine Glucose POC Glucose 119 H 144 H 139 H Hemoglobin A1c Lactic Acid Calcium Phosphorus Magnesium Ferritin Total Bilirubin AST ALT Lactate Dehydrogenase C-Reactive Protein Total Protein Albumin Arterial Blood Glucose Arterial Blood Ionized Calcium Urine WBC (Auto) U Epithel Cells (Auto) Urine Creatinine Coronavirus (PCR) Crossmatch 11/16/20 11/16/20 11/16/20 23:50 Unknown Unknown WBC RBC Hgb Hct RDW Plt Count Lymph % (Auto) [place] % (Auto) Lymph # (Auto) [place] # (Auto) Seg Neutrophils % Seg Neuts % (Manual) Lymphocytes % (Manual) Monocytes % (Manual) Seg Neutrophils # Seg Neutrophils # Man Lymphocytes # (Manual) Monocytes # (Manual) PT INR Fibrinogen D-Dimer Heparin Anti-Xa Level ABG pH POC ABG pCO2 POC ABG pO2 ABG Hemoglobin ABG Oxyhemoglobin ABG Sodium ABG Potassium ABG Chloride ABG Glucose Carboxyhemoglobin Sodium Potassium 3.5 L Chloride 109.7 H Carbon Dioxide 15 L BUN 65 H Creatinine 2.2 H Glucose 174 H POC Glucose 132 H Hemoglobin A1c Lactic Acid 2.10 H* Calcium 6.1 L D Phosphorus Magnesium Ferritin Total Bilirubin AST 171 H ALT 268 H Lactate Dehydrogenase C-Reactive Protein Total Protein 4.3 L Albumin 1.9 L Arterial Blood Glucose Arterial Blood Ionized Calcium Urine WBC (Auto) U Epithel Cells (Auto) Urine Creatinine Coronavirus (PCR) Crossmatch 11/17/20 11/17/20 11/17/20 03:14 04:00 05:09 WBC RBC Hgb Hct RDW Plt Count 123 L Lymph % (Auto) [place] % (Auto) Lymph # (Auto) [place] # (Auto) Seg Neutrophils % Seg Neuts % (Manual) Lymphocytes % (Manual) Monocytes % (Manual) Seg Neutrophils # Seg Neutrophils # Man Lymphocytes # (Manual) Monocytes # (Manual) PT INR Fibrinogen D-Dimer Heparin Anti-Xa Level ABG pH 7.498 H POC ABG pCO2 27.2 L POC ABG pO2 110.6 H ABG Hemoglobin 11.6 L ABG Oxyhemoglobin ABG Sodium 135.4 L ABG Potassium ABG Chloride ABG Glucose 131 H Carboxyhemoglobin Sodium Potassium Chloride Carbon Dioxide BUN Creatinine Glucose POC Glucose 119 H Hemoglobin A1c Lactic Acid Calcium Phosphorus Magnesium Ferritin Total Bilirubin AST ALT Lactate Dehydrogenase C-Reactive Protein Total Protein Albumin Arterial Blood Glucose 131 H Arterial Blood Ionized Calcium 3.7 L Urine WBC (Auto) U Epithel Cells (Auto) Urine Creatinine Coronavirus (PCR) Crossmatch 11/17/20 11/17/20 11/17/20 09:59 09:59 09:59 WBC RBC Hgb Hct RDW Plt Count Lymph % (Auto) [place] % (Auto) Lymph # (Auto) [place] # (Auto) Seg Neutrophils % Seg Neuts % (Manual) Lymphocytes % (Manual) Monocytes % (Manual) Seg Neutrophils # Seg Neutrophils # Man Lymphocytes # (Manual) Monocytes # (Manual) PT INR Fibrinogen D-Dimer 1401.08 H Heparin Anti-Xa Level ABG pH POC ABG pCO2 POC ABG pO2 ABG Hemoglobin ABG Oxyhemoglobin ABG Sodium ABG Potassium ABG Chloride ABG Glucose Carboxyhemoglobin Sodium Potassium Chloride Carbon Dioxide BUN Creatinine Glucose 127 H POC Glucose Hemoglobin A1c Lactic Acid Calcium Phosphorus Magnesium Ferritin 224.1 H Total Bilirubin AST ALT Lactate Dehydrogenase 515 H C-Reactive Protein 4.80 H Total Protein Albumin Arterial Blood Glucose Arterial Blood Ionized Calcium Urine WBC (Auto) U Epithel Cells (Auto) Urine Creatinine Coronavirus (PCR) Crossmatch 11/17/20 11/17/20 11/17/20 11:28 16:26 18:00 WBC RBC Hgb Hct RDW Plt Count Lymph % (Auto) [place] % (Auto) Lymph # (Auto) [place] # (Auto) Seg Neutrophils % Seg Neuts % (Manual) Lymphocytes % (Manual) Monocytes % (Manual) Seg Neutrophils # Seg Neutrophils # Man Lymphocytes # (Manual) Monocytes # (Manual) PT INR Fibrinogen D-Dimer Heparin Anti-Xa Level 0.10 L ABG pH POC ABG pCO2 POC ABG pO2 ABG Hemoglobin ABG Oxyhemoglobin ABG Sodium ABG Potassium ABG Chloride ABG Glucose Carboxyhemoglobin Sodium Potassium Chloride Carbon Dioxide BUN Creatinine Glucose POC Glucose 114 H 121 H Hemoglobin A1c Lactic Acid Calcium Phosphorus Magnesium Ferritin Total Bilirubin AST ALT Lactate Dehydrogenase C-Reactive Protein Total Protein Albumin Arterial Blood Glucose Arterial Blood Ionized Calcium Urine WBC (Auto) U Epithel Cells (Auto) Urine Creatinine Coronavirus (PCR) Crossmatch 11/17/20 11/17/20 11/18/20 21:37 Unknown 02:11 WBC RBC Hgb Hct RDW Plt Count Lymph % (Auto) [place] % (Auto) Lymph # (Auto) [place] # (Auto) Seg Neutrophils % Seg Neuts % (Manual) Lymphocytes % (Manual) Monocytes % (Manual) Seg Neutrophils # Seg Neutrophils # Man Lymphocytes # (Manual) Monocytes # (Manual) PT INR Fibrinogen D-Dimer Heparin Anti-Xa Level ABG pH POC ABG pCO2 POC ABG pO2 ABG Hemoglobin ABG Oxyhemoglobin ABG Sodium ABG Potassium ABG Chloride ABG Glucose Carboxyhemoglobin Sodium 146 H D Potassium 3.5 L Chloride Carbon Dioxide BUN 67 H 62 H Creatinine 1.8 H 1.7 H Glucose 129 H 109 H POC Glucose 118 H Hemoglobin A1c Lactic Acid Calcium 6.5 L 5.7 L* Phosphorus Magnesium 1.20 L Ferritin Total Bilirubin AST ALT Lactate Dehydrogenase C-Reactive Protein Total Protein Albumin Arterial Blood Glucose Arterial Blood Ionized Calcium Urine WBC (Auto) U Epithel Cells (Auto) Urine Creatinine Coronavirus (PCR) Crossmatch 11/18/20 11/18/20 11/18/20 02:38 04:44 17:09 WBC RBC Hgb Hct RDW Plt Count Lymph % (Auto) [place] % (Auto) Lymph # (Auto) [place] # (Auto) Seg Neutrophils % Seg Neuts % (Manual) Lymphocytes % (Manual) Monocytes % (Manual) Seg Neutrophils # Seg Neutrophils # Man Lymphocytes # (Manual) Monocytes # (Manual) PT INR Fibrinogen D-Dimer Heparin Anti-Xa Level ABG pH 7.565 H POC ABG pCO2 30.4 L POC ABG pO2 72.0 L ABG Hemoglobin 11.4 L ABG Oxyhemoglobin ABG Sodium 134.1 L ABG Potassium 2.9 L ABG Chloride ABG Glucose 110 H Carboxyhemoglobin 0.3 L Sodium Potassium Chloride Carbon Dioxide BUN Creatinine Glucose POC Glucose 109 H 125 H Hemoglobin A1c Lactic Acid Calcium Phosphorus Magnesium Ferritin Total Bilirubin AST ALT Lactate Dehydrogenase C-Reactive Protein Total Protein Albumin Arterial Blood Glucose 110 H Arterial Blood Ionized Calcium 3.4 L Urine WBC (Auto) U Epithel Cells (Auto) Urine Creatinine Coronavirus (PCR) Crossmatch 11/19/20 11/19/20 11/19/20 03:19 04:00 04:00 WBC 14.3 H RBC 3.61 L Hgb Hct RDW Plt Count Lymph % (Auto) [place] % (Auto) Lymph # (Auto) [place] # (Auto) Seg Neutrophils % Seg Neuts % (Manual) 77.0 H Lymphocytes % (Manual) 13.0 L Monocytes % (Manual) 10.0 H Seg Neutrophils # Seg Neutrophils # Man 11.0 H Lymphocytes # (Manual) Monocytes # (Manual) 1.4 H PT INR Fibrinogen D-Dimer Heparin Anti-Xa Level ABG pH 7.577 H POC ABG pCO2 28.0 L POC ABG pO2 57.4 L ABG Hemoglobin 10.6 L ABG Oxyhemoglobin 90.3 L ABG Sodium ABG Potassium 2.8 L ABG Chloride ABG Glucose 102 H Carboxyhemoglobin 0.3 L Sodium Potassium 2.9 L* D Chloride Carbon Dioxide 31 H BUN 51 H Creatinine Glucose POC Glucose Hemoglobin A1c Lactic Acid Calcium 6.7 L D Phosphorus 1.90 L Magnesium Ferritin Total Bilirubin AST ALT Lactate Dehydrogenase 634 H C-Reactive Protein 1.40 H Total Protein Albumin Arterial Blood Glucose 102 H Arterial Blood Ionized Calcium 3.7 L Urine WBC (Auto) U Epithel Cells (Auto) Urine Creatinine Coronavirus (PCR) Crossmatch 11/19/20 11/19/20 11/19/20 04:00 10:33 14:10 WBC RBC Hgb 8.9 L Hct 27.0 L RDW Plt Count Lymph % (Auto) [place] % (Auto) Lymph # (Auto) [place] # (Auto) Seg Neutrophils % Seg Neuts % (Manual) Lymphocytes % (Manual) Monocytes % (Manual) Seg Neutrophils # Seg Neutrophils # Man Lymphocytes # (Manual) Monocytes # (Manual) PT INR Fibrinogen D-Dimer 1808.23 H Heparin Anti-Xa Level ABG pH POC ABG pCO2 POC ABG pO2 ABG Hemoglobin ABG Oxyhemoglobin ABG Sodium ABG Potassium ABG Chloride ABG Glucose Carboxyhemoglobin Sodium Potassium Chloride Carbon Dioxide BUN Creatinine Glucose POC Glucose 109 H Hemoglobin A1c Lactic Acid Calcium Phosphorus Magnesium Ferritin Total Bilirubin AST ALT Lactate Dehydrogenase C-Reactive Protein Total Protein Albumin Arterial Blood Glucose Arterial Blood Ionized Calcium Urine WBC (Auto) U Epithel Cells (Auto) Urine Creatinine Coronavirus (PCR) Crossmatch 11/19/20 11/19/20 11/19/20 17:28 19:45 19:45 WBC 22.7 H RBC 3.14 L Hgb 9.0 L Hct 27.2 L RDW Plt Count Lymph % (Auto) [place] % (Auto) Lymph # (Auto) [place] # (Auto) Seg Neutrophils % Seg Neuts % (Manual) Lymphocytes % (Manual) Monocytes % (Manual) Seg Neutrophils # Seg Neutrophils # Man Lymphocytes # (Manual) Monocytes # (Manual) PT 24.6 H INR 2.18 H Fibrinogen D-Dimer Heparin Anti-Xa Level ABG pH POC ABG pCO2 POC ABG pO2 ABG Hemoglobin ABG Oxyhemoglobin ABG Sodium ABG Potassium ABG Chloride ABG Glucose Carboxyhemoglobin Sodium Potassium Chloride Carbon Dioxide BUN Creatinine Glucose POC Glucose 186 H Hemoglobin A1c Lactic Acid Calcium Phosphorus Magnesium Ferritin Total Bilirubin AST ALT Lactate Dehydrogenase C-Reactive Protein Total Protein Albumin Arterial Blood Glucose Arterial Blood Ionized Calcium Urine WBC (Auto) U Epithel Cells (Auto) Urine Creatinine Coronavirus (PCR) Crossmatch 11/19/20 11/19/20 11/19/20 19:45 19:45 19:45 WBC RBC Hgb Hct RDW Plt Count Lymph % (Auto) [place] % (Auto) Lymph # (Auto) [place] # (Auto) Seg Neutrophils % Seg Neuts % (Manual) Lymphocytes % (Manual) Monocytes % (Manual) Seg Neutrophils # Seg Neutrophils # Man Lymphocytes # (Manual) Monocytes # (Manual) PT INR Fibrinogen D-Dimer Heparin Anti-Xa Level ABG pH POC ABG pCO2 POC ABG pO2 ABG Hemoglobin ABG Oxyhemoglobin ABG Sodium ABG Potassium ABG Chloride ABG Glucose Carboxyhemoglobin Sodium Potassium Chloride Carbon Dioxide BUN 58 H Creatinine Glucose 192 H POC Glucose Hemoglobin A1c Lactic Acid 2.20 H* Calcium 6.9 L Phosphorus Magnesium Ferritin Total Bilirubin AST 119 H ALT 143 H Lactate Dehydrogenase C-Reactive Protein Total Protein 4.0 L Albumin 2.3 L Arterial Blood Glucose Arterial Blood Ionized Calcium Urine WBC (Auto) U Epithel Cells (Auto) Urine Creatinine Coronavirus (PCR) Crossmatch See Detail 11/19/20 11/19/20 11/19/20 22:00 23:25 23:45 WBC RBC Hgb Hct RDW Plt Count Lymph % (Auto) [place] % (Auto) Lymph # (Auto) [place] # (Auto) Seg Neutrophils % Seg Neuts % (Manual) Lymphocytes % (Manual) Monocytes % (Manual) Seg Neutrophils # Seg Neutrophils # Man Lymphocytes # (Manual) Monocytes # (Manual) PT INR Fibrinogen D-Dimer Heparin Anti-Xa Level > 2.00 H ABG pH POC ABG pCO2 POC ABG pO2 ABG Hemoglobin ABG Oxyhemoglobin ABG Sodium ABG Potassium ABG Chloride ABG Glucose Carboxyhemoglobin Sodium Potassium Chloride Carbon Dioxide BUN Creatinine Glucose POC Glucose 155 H Hemoglobin A1c Lactic Acid Calcium Phosphorus Magnesium Ferritin Total Bilirubin AST ALT Lactate Dehydrogenase C-Reactive Protein Total Protein Albumin Arterial Blood Glucose Arterial Blood Ionized Calcium Urine WBC (Auto) > 182.0 H U Epithel Cells (Auto) Urine Creatinine Coronavirus (PCR) Crossmatch 11/20/20 11/20/20 11/20/20 04:00 04:09 04:09 WBC 20.9 H RBC 3.48 L Hgb 10.0 L Hct 30.1 L RDW Plt Count Lymph % (Auto) [place] % (Auto) Lymph # (Auto) [place] # (Auto) Seg Neutrophils % Seg Neuts % (Manual) 77.0 H Lymphocytes % (Manual) 3.0 L Monocytes % (Manual) Seg Neutrophils # Seg Neutrophils # Man 16.1 H Lymphocytes # (Manual) 0.6 L Monocytes # (Manual) PT INR Fibrinogen D-Dimer Heparin Anti-Xa Level ABG pH 7.595 H POC ABG pCO2 25.2 L POC ABG pO2 69.0 L ABG Hemoglobin 9.8 L ABG Oxyhemoglobin ABG Sodium ABG Potassium ABG Chloride 110.0 H ABG Glucose 178 H Carboxyhemoglobin 0.2 L Sodium 147 H Potassium Chloride 107.8 H Carbon Dioxide BUN 63 H Creatinine 1.3 H Glucose 151 H POC Glucose Hemoglobin A1c Lactic Acid Calcium 6.3 L Phosphorus Magnesium Ferritin Total Bilirubin AST ALT Lactate Dehydrogenase C-Reactive Protein Total Protein Albumin Arterial Blood Glucose 178 H Arterial Blood Ionized Calcium 3.7 L Urine WBC (Auto) U Epithel Cells (Auto) Urine Creatinine Coronavirus (PCR) Crossmatch 11/20/20 11/20/20 11/20/20 05:13 09:57 09:57 WBC RBC Hgb 9.4 L Hct 28.5 L RDW Plt Count Lymph % (Auto) [place] % (Auto) Lymph # (Auto) [place] # (Auto) Seg Neutrophils % Seg Neuts % (Manual) Lymphocytes % (Manual) Monocytes % (Manual) Seg Neutrophils # Seg Neutrophils # Man Lymphocytes # (Manual) Monocytes # (Manual) PT INR Fibrinogen D-Dimer Heparin Anti-Xa Level ABG pH POC ABG pCO2 POC ABG pO2 ABG Hemoglobin ABG Oxyhemoglobin ABG Sodium ABG Potassium ABG Chloride ABG Glucose Carboxyhemoglobin Sodium Potassium Chloride Carbon Dioxide BUN Creatinine Glucose POC Glucose 126 H Hemoglobin A1c Lactic Acid Calcium Phosphorus 5.40 H D Magnesium Ferritin Total Bilirubin AST ALT Lactate Dehydrogenase C-Reactive Protein Total Protein Albumin Arterial Blood Glucose Arterial Blood Ionized Calcium Urine WBC (Auto) U Epithel Cells (Auto) Urine Creatinine Coronavirus (PCR) Crossmatch 11/20/20 11/20/20 11/20/20 12:07 17:52 20:48 WBC RBC Hgb Hct RDW Plt Count Lymph % (Auto) [place] % (Auto) Lymph # (Auto) [place] # (Auto) Seg Neutrophils % Seg Neuts % (Manual) Lymphocytes % (Manual) Monocytes % (Manual) Seg Neutrophils # Seg Neutrophils # Man Lymphocytes # (Manual) Monocytes # (Manual) PT INR Fibrinogen D-Dimer Heparin Anti-Xa Level ABG pH 7.468 H POC ABG pCO2 25.5 L POC ABG pO2 ABG Hemoglobin 7.6 L ABG Oxyhemoglobin ABG Sodium ABG Potassium ABG Chloride 111.0 H ABG Glucose 190 H Carboxyhemoglobin Sodium Potassium Chloride Carbon Dioxide BUN Creatinine Glucose POC Glucose 121 H 154 H Hemoglobin A1c Lactic Acid Calcium Phosphorus Magnesium Ferritin Total Bilirubin AST ALT Lactate Dehydrogenase C-Reactive Protein Total Protein Albumin Arterial Blood Glucose 190 H Arterial Blood Ionized Calcium 3.8 L Urine WBC (Auto) U Epithel Cells (Auto) Urine Creatinine Coronavirus (PCR) Crossmatch 11/20/20 11/21/20 11/21/20 23:01 00:27 00:27 WBC RBC Hgb 7.0 L Hct 21.9 L D RDW Plt Count Lymph % (Auto) [place] % (Auto) Lymph # (Auto) [place] # (Auto) Seg Neutrophils % Seg Neuts % (Manual) Lymphocytes % (Manual) Monocytes % (Manual) Seg Neutrophils # Seg Neutrophils # Man Lymphocytes # (Manual) Monocytes # (Manual) PT INR Fibrinogen D-Dimer Heparin Anti-Xa Level 1.46 H ABG pH POC ABG pCO2 POC ABG pO2 ABG Hemoglobin ABG Oxyhemoglobin ABG Sodium ABG Potassium ABG Chloride ABG Glucose Carboxyhemoglobin Sodium Potassium Chloride Carbon Dioxide BUN Creatinine Glucose POC Glucose 144 H Hemoglobin A1c Lactic Acid Calcium Phosphorus Magnesium Ferritin Total Bilirubin AST ALT Lactate Dehydrogenase C-Reactive Protein Total Protein Albumin Arterial Blood Glucose Arterial Blood Ionized Calcium Urine WBC (Auto) U Epithel Cells (Auto) Urine Creatinine Coronavirus (PCR) Crossmatch 11/21/20 11/21/20 11/21/20 09:53 09:53 09:53 WBC RBC Hgb 6.1 L Hct 20.2 L RDW Plt Count Lymph % (Auto) [place] % (Auto) Lymph # (Auto) [place] # (Auto) Seg Neutrophils % Seg Neuts % (Manual) Lymphocytes % (Manual) Monocytes % (Manual) Seg Neutrophils # Seg Neutrophils # Man Lymphocytes # (Manual) Monocytes # (Manual) PT 116.7 H INR 17.11 H* Fibrinogen D-Dimer 1623.09 H Heparin Anti-Xa Level ABG pH POC ABG pCO2 POC ABG pO2 ABG Hemoglobin ABG Oxyhemoglobin ABG Sodium ABG Potassium ABG Chloride ABG Glucose Carboxyhemoglobin Sodium 146 H Potassium 5.7 H D Chloride 107.6 H Carbon Dioxide 10 L D BUN 83 H Creatinine 1.9 H Glucose 158 H POC Glucose Hemoglobin A1c Lactic Acid Calcium 6.1 L Phosphorus Magnesium Ferritin Total Bilirubin AST ALT Lactate Dehydrogenase 1131 H C-Reactive Protein 2.00 H Total Protein Albumin Arterial Blood Glucose Arterial Blood Ionized Calcium Urine WBC (Auto) U Epithel Cells (Auto) Urine Creatinine Coronavirus (PCR) Crossmatch 11/21/20 11/21/20 11/21/20 11:12 11:21 11:28 WBC RBC Hgb Hct RDW Plt Count Lymph % (Auto) [place] % (Auto) Lymph # (Auto) [place] # (Auto) Seg Neutrophils % Seg Neuts % (Manual) Lymphocytes % (Manual) Monocytes % (Manual) Seg Neutrophils # Seg Neutrophils # Man Lymphocytes # (Manual) Monocytes # (Manual) PT INR Fibrinogen 208 L D-Dimer Heparin Anti-Xa Level 1.24 H ABG pH 7.056 L POC ABG pCO2 POC ABG pO2 ABG Hemoglobin 4.4 L ABG Oxyhemoglobin 89.8 L ABG Sodium ABG Potassium ABG Chloride 111.0 H ABG Glucose 573 H Carboxyhemoglobin Sodium Potassium Chloride Carbon Dioxide BUN Creatinine Glucose POC Glucose 49 L Hemoglobin A1c Lactic Acid Calcium Phosphorus Magnesium Ferritin Total Bilirubin AST ALT Lactate Dehydrogenase C-Reactive Protein Total Protein Albumin Arterial Blood Glucose 573 H Arterial Blood Ionized Calcium Urine WBC (Auto) U Epithel Cells (Auto) Urine Creatinine Coronavirus (PCR) Crossmatch 11/21/20 11/21/20 11/21/20 11:39 13:35 17:42 WBC RBC Hgb Hct RDW Plt Count Lymph % (Auto) [place] % (Auto) Lymph # (Auto) [place] # (Auto) Seg Neutrophils % Seg Neuts % (Manual) Lymphocytes % (Manual) Monocytes % (Manual) Seg Neutrophils # Seg Neutrophils # Man Lymphocytes # (Manual) Monocytes # (Manual) PT INR Fibrinogen D-Dimer Heparin Anti-Xa Level ABG pH 7.213 L POC ABG pCO2 29.3 L POC ABG pO2 79.3 L ABG Hemoglobin ABG Oxyhemoglobin 93.5 L ABG Sodium ABG Potassium ABG Chloride 110.0 H ABG Glucose 297 H Carboxyhemoglobin Sodium Potassium Chloride Carbon Dioxide BUN Creatinine Glucose POC Glucose 43 L 111 H Hemoglobin A1c Lactic Acid Calcium Phosphorus Magnesium Ferritin Total Bilirubin AST ALT Lactate Dehydrogenase C-Reactive Protein Total Protein Albumin Arterial Blood Glucose 297 H Arterial Blood Ionized Calcium 4.1 L Urine WBC (Auto) U Epithel Cells (Auto) Urine Creatinine Coronavirus (PCR) Crossmatch 11/21/20 11/22/20 11/22/20 20:15 02:00 05:00 WBC RBC Hgb Hct RDW Plt Count Lymph % (Auto) [place] % (Auto) Lymph # (Auto) [place] # (Auto) Seg Neutrophils % Seg Neuts % (Manual) Lymphocytes % (Manual) Monocytes % (Manual) Seg Neutrophils # Seg Neutrophils # Man Lymphocytes # (Manual) Monocytes # (Manual) PT 22.6 H 20.8 H INR 1.93 H 1.73 H Fibrinogen 200 L D-Dimer 2595.90 H Heparin Anti-Xa Level ABG pH POC ABG pCO2 POC ABG pO2 ABG Hemoglobin ABG Oxyhemoglobin ABG Sodium ABG Potassium ABG Chloride ABG Glucose Carboxyhemoglobin Sodium Potassium Chloride Carbon Dioxide BUN Creatinine Glucose POC Glucose Hemoglobin A1c Lactic Acid 5.00 H* Calcium Phosphorus Magnesium Ferritin Total Bilirubin AST ALT Lactate Dehydrogenase C-Reactive Protein Total Protein Albumin Arterial Blood Glucose Arterial Blood Ionized Calcium Urine WBC (Auto) U Epithel Cells (Auto) Urine Creatinine Coronavirus (PCR) Crossmatch 11/22/20 11/22/20 11/22/20 05:24 11:00 13:00 WBC 21.5 H RBC Hgb Hct RDW Plt Count 37 L Lymph % (Auto) [place] % (Auto) Lymph # (Auto) [place] # (Auto) Seg Neutrophils % Seg Neuts % (Manual) Lymphocytes % (Manual) Monocytes % (Manual) Seg Neutrophils # Seg Neutrophils # Man Lymphocytes # (Manual) Monocytes # (Manual) PT INR Fibrinogen D-Dimer Heparin Anti-Xa Level ABG pH 7.545 H POC ABG pCO2 29.3 L POC ABG pO2 ABG Hemoglobin 10.3 L ABG Oxyhemoglobin ABG Sodium ABG Potassium 3.0 L ABG Chloride 111.0 H ABG Glucose 107 H Carboxyhemoglobin 0.1 L Sodium Potassium Chloride Carbon Dioxide BUN Creatinine Glucose POC Glucose 36 L Hemoglobin A1c Lactic Acid Calcium Phosphorus Magnesium Ferritin Total Bilirubin AST ALT Lactate Dehydrogenase C-Reactive Protein Total Protein Albumin Arterial Blood Glucose 107 H Arterial Blood Ionized Calcium 3.3 L Urine WBC (Auto) U Epithel Cells (Auto) Urine Creatinine Coronavirus (PCR) Crossmatch 11/22/20 11/22/20 11/22/20 17:37 23:00 Unknown WBC RBC Hgb Hct RDW Plt Count Lymph % (Auto) [place] % (Auto) Lymph # (Auto) [place] # (Auto) Seg Neutrophils % Seg Neuts % (Manual) Lymphocytes % (Manual) Monocytes % (Manual) Seg Neutrophils # Seg Neutrophils # Man Lymphocytes # (Manual) Monocytes # (Manual) PT INR Fibrinogen D-Dimer Heparin Anti-Xa Level ABG pH POC ABG pCO2 POC ABG pO2 ABG Hemoglobin ABG Oxyhemoglobin ABG Sodium ABG Potassium ABG Chloride ABG Glucose Carboxyhemoglobin Sodium Potassium 3.0 L Chloride Carbon Dioxide BUN Creatinine Glucose POC Glucose 112 H Hemoglobin A1c Lactic Acid Calcium Phosphorus Magnesium Ferritin Total Bilirubin AST ALT Lactate Dehydrogenase C-Reactive Protein 1.90 H Total Protein Albumin Arterial Blood Glucose Arterial Blood Ionized Calcium Urine WBC (Auto) U Epithel Cells (Auto) Urine Creatinine Coronavirus (PCR) Crossmatch 11/22/20 11/22/20 11/22/20 Unknown Unknown Unknown WBC 16.4 H RBC Hgb Hct RDW 15.4 H Plt Count 40 L Lymph % (Auto) [place] % (Auto) Lymph # (Auto) [place] # (Auto) Seg Neutrophils % Seg Neuts % (Manual) Lymphocytes % (Manual) Monocytes % (Manual) Seg Neutrophils # Seg Neutrophils # Man Lymphocytes # (Manual) Monocytes # (Manual) PT INR Fibrinogen D-Dimer Heparin Anti-Xa Level ABG pH POC ABG pCO2 POC ABG pO2 ABG Hemoglobin ABG Oxyhemoglobin ABG Sodium ABG Potassium ABG Chloride ABG Glucose Carboxyhemoglobin Sodium 152 H Potassium 2.8 L* D Chloride 108.9 H Carbon Dioxide BUN 76 H Creatinine 1.7 H Glucose POC Glucose Hemoglobin A1c Lactic Acid Calcium 6.8 L Phosphorus Magnesium 1.50 L Ferritin 1559.0 H Total Bilirubin 1.50 H AST 4887 H ALT 1552 H Lactate Dehydrogenase C-Reactive Protein Total Protein 3.8 L Albumin 2.2 L Arterial Blood Glucose Arterial Blood Ionized Calcium Urine WBC (Auto) U Epithel Cells (Auto) Urine Creatinine Coronavirus (PCR) Crossmatch 11/22/20 11/22/20 11/23/20 Unknown Unknown 04:00 WBC 15.2 H RBC 3.27 L Hgb 9.6 L Hct 28.8 L RDW 15.7 H Plt Count 38 L Lymph % (Auto) [place] % (Auto) Lymph # (Auto) [place] # (Auto) Seg Neutrophils % Seg Neuts % (Manual) Lymphocytes % (Manual) Monocytes % (Manual) Seg Neutrophils # Seg Neutrophils # Man Lymphocytes # (Manual) Monocytes # (Manual) PT INR Fibrinogen D-Dimer Heparin Anti-Xa Level ABG pH POC ABG pCO2 POC ABG pO2 ABG Hemoglobin ABG Oxyhemoglobin ABG Sodium ABG Potassium ABG Chloride ABG Glucose Carboxyhemoglobin Sodium 152 H Potassium 2.8 L* Chloride 107.5 H Carbon Dioxide 32 H BUN 75 H Creatinine 1.7 H Glucose 130 H POC Glucose Hemoglobin A1c Lactic Acid 5.20 H* Calcium 6.5 L Phosphorus Magnesium Ferritin Total Bilirubin 1.40 H AST 4513 H ALT 1512 H Lactate Dehydrogenase C-Reactive Protein Total Protein 3.4 L Albumin 2.1 L Arterial Blood Glucose Arterial Blood Ionized Calcium Urine WBC (Auto) U Epithel Cells (Auto) Urine Creatinine Coronavirus (PCR) Crossmatch 11/23/20 11/23/20 11/23/20 04:00 04:00 05:04 WBC RBC Hgb Hct RDW Plt Count Lymph % (Auto) [place] % (Auto) Lymph # (Auto) [place] # (Auto) Seg Neutrophils % Seg Neuts % (Manual) Lymphocytes % (Manual) Monocytes % (Manual) Seg Neutrophils # Seg Neutrophils # Man Lymphocytes # (Manual) Monocytes # (Manual) PT 21.0 H INR 1.75 H Fibrinogen D-Dimer Heparin Anti-Xa Level ABG pH 7.518 H POC ABG pCO2 14.6 L POC ABG pO2 ABG Hemoglobin 5.3 L ABG Oxyhemoglobin ABG Sodium ABG Potassium 1.5 L ABG Chloride 129.0 H ABG Glucose 99 H Carboxyhemoglobin Sodium 152 H Potassium 3.1 L Chloride 112.5 H Carbon Dioxide BUN 77 H Creatinine 2.0 H Glucose 177 H POC Glucose Hemoglobin A1c Lactic Acid Calcium 6.0 L Phosphorus Magnesium Ferritin Total Bilirubin AST 1058 H ALT 929 H Lactate Dehydrogenase C-Reactive Protein Total Protein 3.6 L Albumin 1.6 L Arterial Blood Glucose 99 H Arterial Blood Ionized Calcium Urine WBC (Auto) U Epithel Cells (Auto) Urine Creatinine Coronavirus (PCR) Crossmatch 11/23/20 05:06 WBC RBC Hgb Hct RDW Plt Count Lymph % (Auto) [place] % (Auto) Lymph # (Auto) [place] # (Auto) Seg Neutrophils % Seg Neuts % (Manual) Lymphocytes % (Manual) Monocytes % (Manual) Seg Neutrophils # Seg Neutrophils # Man Lymphocytes # (Manual) Monocytes # (Manual) PT INR Fibrinogen D-Dimer Heparin Anti-Xa Level ABG pH POC ABG pCO2 POC ABG pO2 ABG Hemoglobin ABG Oxyhemoglobin ABG Sodium ABG Potassium ABG Chloride ABG Glucose Carboxyhemoglobin Sodium Potassium Chloride Carbon Dioxide BUN Creatinine Glucose POC Glucose 109 H Hemoglobin A1c Lactic Acid Calcium Phosphorus Magnesium Ferritin Total Bilirubin AST ALT Lactate Dehydrogenase C-Reactive Protein Total Protein Albumin Arterial Blood Glucose Arterial Blood Ionized Calcium Urine WBC (Auto) U Epithel Cells (Auto) Urine Creatinine Coronavirus (PCR) Crossmatch Chest x-ray: image reviewed (ETT in good position) Allied health notes reviewed: RT
[2020-11-23] MEDS: VANCOMYCIN 1,500 MG in SODIUM CHLORIDE 0.9% 500 ML 500 ML IV SCH (14:05)
[2020-11-23] MEDS: POTASSIUM CHLORIDE 20 MEQ in DEXTROSE 5% IN WATER 1,000 ML IV SCH (14:05)
--- NOTE | 2020-11-23 16:50 | Gastroenterology Progress Note ---
Assessment and Plan 1. GI bleed - egd 11/20 with gastric ulcer (with clot and some oozing) s/p epi injection and clip placement. FMS with dark brown stool, minimal blood tinge output from og tube. cont IV PPI and monitor labs/transfuse as indicated. 2.acute liver injury (suspect ischemic hepatitis and severe sepsis related) - trend liver enzymes/coags 3.respiratory failure/covid-19 Subjective Date of service: 11/23/20 Principal diagnosis: Ac hypoxemic resp failure; COVID-19 infxn; Pneumonia; KATLYN; AMS; Sepsis Interval history: pt's condition appears overall unchanged no overt blood in fms. blood tinge in og tube Objective - Exam Narrative Exam: gen: on vent, nad abd: soft, nt - Constitutional Vitals: Temp Pulse Resp BP Pulse Ox 99.3 F 63 30 H 121/46 98 11/23/20 02:57 11/23/20 15:29 11/23/20 13:01 11/23/20 15:29 11/23/20 15:29 - Labs CBC & Chem 7: 11/23/20 04:00 11/23/20 04:00 Labs: Laboratory Results - last 24 hr 11/19/20 11/22/20 11/22/20 19:45 17:37 23:00 WBC RBC Hgb Hct MCV MCH MCHC RDW Plt Count PT INR APTT ABG pH POC ABG pCO2 POC ABG pO2 POC ABG HCO3 ABG O2 Saturation POC ABG Base Excess ABG Hemoglobin ABG Oxyhemoglobin ABG Methemoglobin ABG Sodium ABG Potassium ABG Chloride ABG Glucose Carboxyhemoglobin FiO2 % Sodium Potassium 3.0 L Chloride Carbon Dioxide Anion Gap BUN Creatinine Estimated GFR BUN/Creatinine Ratio Glucose POC Glucose 112 H Calcium Magnesium Total Bilirubin AST ALT Alkaline Phosphatase Total Protein Albumin Albumin/Globulin Ratio Arterial Blood Glucose Crossmatch See Detail 11/22/20 11/22/20 11/23/20 23:38 Unknown 04:00 WBC 15.2 H RBC 3.27 L Hgb 9.6 L Hct 28.8 L MCV 88 MCH 29 MCHC 33 RDW 15.7 H Plt Count 38 L PT INR APTT 29.9 ABG pH POC ABG pCO2 POC ABG pO2 POC ABG HCO3 ABG O2 Saturation POC ABG Base Excess ABG Hemoglobin ABG Oxyhemoglobin ABG Methemoglobin ABG Sodium ABG Potassium ABG Chloride ABG Glucose Carboxyhemoglobin FiO2 % Sodium Potassium Chloride Carbon Dioxide Anion Gap BUN Creatinine Estimated GFR BUN/Creatinine Ratio Glucose POC Glucose 103 Calcium Magnesium Total Bilirubin AST ALT Alkaline Phosphatase Total Protein Albumin Albumin/Globulin Ratio Arterial Blood Glucose Crossmatch 11/23/20 11/23/20 11/23/20 04:00 04:00 05:04 WBC RBC Hgb Hct MCV MCH MCHC RDW Plt Count PT 21.0 H INR 1.75 H APTT ABG pH 7.518 H POC ABG pCO2 14.6 L POC ABG pO2 84.4 POC ABG HCO3 11.6 ABG O2 Saturation 96.0 POC ABG Base Excess -10.6 ABG Hemoglobin 5.3 L ABG Oxyhemoglobin 94.3 ABG Methemoglobin 0.3 ABG Sodium 144.4 ABG Potassium 1.5 L ABG Chloride 129.0 H ABG Glucose 99 H Carboxyhemoglobin 1.5 FiO2 % 40.0 Sodium 152 H Potassium 3.1 L Chloride 112.5 H Carbon Dioxide 27 Anion Gap 16 BUN 77 H Creatinine 2.0 H Estimated GFR 24 BUN/Creatinine Ratio 39 Glucose 177 H POC Glucose Calcium 6.0 L Magnesium 2.10 Total Bilirubin 1.10 AST 1058 H ALT 929 H Alkaline Phosphatase 65 Total Protein 3.6 L Albumin 1.6 L Albumin/Globulin Ratio 0.8 Arterial Blood Glucose 99 H Crossmatch 11/23/20 11/23/20 05:06 12:49 WBC RBC Hgb Hct MCV MCH MCHC RDW Plt Count PT INR APTT ABG pH POC ABG pCO2 POC ABG pO2 POC ABG HCO3 ABG O2 Saturation POC ABG Base Excess ABG Hemoglobin ABG Oxyhemoglobin ABG Methemoglobin ABG Sodium ABG Potassium ABG Chloride ABG Glucose Carboxyhemoglobin FiO2 % Sodium Potassium Chloride Carbon Dioxide Anion Gap BUN Creatinine Estimated GFR BUN/Creatinine Ratio Glucose POC Glucose 109 H 88 Calcium Magnesium Total Bilirubin AST ALT Alkaline Phosphatase Total Protein Albumin Albumin/Globulin Ratio Arterial Blood Glucose Crossmatch
--- NOTE | 2020-11-23 17:39 | Progress Note ---
Assessment and Plan Assessment and plan: This is an 85-year-old female admitted with acute hypoxic respiratory failure, COVID-19 pneumonia and septic shock Neuro: Acute metabolic encephalopathy, H/O lumbar compression fracture -multifactorial -Patient has no sedation -Supportive care Cardio: s/p VF cardiac arrest, Hypotension, inadvertent placement of carotid artery central venous line -Vasopressor support with norepi, vasopressin-> map goal 65 -Blood pressure monitoring via femoral kyle -Vascular surgery/interventional radiology consulted, appreciate recommendations -Patient was on a Heparin drip to prevent thrombus but this was discontinued d/t bleeding/cougulopahty -see code sheet from 11/21 for details Respiratory: Acute hypoxemic respiratory failure -CCM consulted, appreciate recommendations -Intubated 11/13/2020 -11/23 ABG and CXR reviewed -AM vent settings: 8.00 ETT at 20 lips; AC, rate of 12, PEEP 10, FiO2 50% -Post arrest vent settings: AC R 10, PEEP 10, TV 400, FiO2 60% -2 additional amps bicarb given -VAP bundle -Daily SBT/SAT when appropriate -Serial ABGs, CXR -Wean mechanical ventilation when appropriate GI: Acute Blood loss anemia, GI bleed, Bleeding Gastric ulcer, transaminitis, Severe protein malnutrition -GI consulted, appreciate recommendations -Ntr consulted, appreciate recommendations: On tube feedings -11/11 abdomen/pelvis CT, see report for findings -Protonix gtt -FMS in place-> Occult Positive -Serial H&H -11/20 s/p 2 units PRBC -11/20: EGD shows bleeding gastric ulcer which was banded -NPO per GI recs; Currently on MIVF to prevent hypoglycemia -Additional 4 units PRBC, FFPx1 -Ordered 1 unit plts today -Trend CBC and LFTs : Acute kidney injury, left ureteral stone, metabolic alkalosis, hypocalcemia, hypernatermia -Nephrology, urology consulted, appreciate recommendations -Strict intake and output -Daily weights -Avoid nephrotoxic medications -Renally dose medications -S/p bilateral stent -s/p IV calcium with PO supplements -MIVF ID: Septic shock, COVID-19 pneumonia, UTI -MRSA 11/13 sputum culture -Infectious disease consulted, appreciate recommendations -ID restarted abx : vancomycin and cefepime given new fevers and worsening white count on 11/20 -11/14 blood cultures x2 no growth to date -COVID-19 PCR + on 11/11 -Patient not a candidate for remdesivir due to renal failure -S/p Actemra -Dexamethasone for 10 days -Zinc/vitamin C -Trend COVID-19 inflammatory markers -Droplet/isolation precautions Endo: DM II -SSI -Hemoglobin A1c 6.6 -Accu-Cheks every 4 hours -Avoid hypoglycemia -Protonix gtt Heme: Acute GI bleed, elevated D-dimer, Leukocytosis, Supratheraputic INR, Thrombocytopenia -GI consulted, appreciate recommendations -SCDs to bilateral lower extremities while in bed -s/p 2 units prbc, 4 additional units postcode, 4 FFP and 1 unit plts 11/22 (plt documented in paper chart) -Transfuse for hemoglobin less than 7; per GI : hgb goal >7, Platelet >50 K, and INR <1.5 -s/p heparin gtt -per GI: If on-going bleeding or drop in H/H again, recommend CTA to help localize the bleeding -Trend CBC, coags The high probability of a clinically significant, sudden or life threatening deterioration of the [multi] system(s) required my full and direct attention, intervention and personal management. The aggregate critical care time was [60] minutes. This time is in addition to time spent performing reported procedures but includes the following: [x] Data Review and interpretation [x] Patient assessment and monitoring of vital signs [x] Documentation [x] Medication orders and management History Interval history: This is a 85-year-old female with obesity, chronic low back pain, chronic UTI, muscle spasm, and depression who presents to the emergency department on 11/11 with complaints of nausea/vomiting and decreased p.o. intake for 1 week and complains of mild diarrhea. Patient is bedridden and nonambulatory and oriented to self. Her patient's daughter EMS was called to assess and they gave the patient IV fluids but did not transfer the patient. On 11/11 EMS was contacted again and due to persistent vomiting and apparent small amount of blood in vomit patient was transferred to [facility] for further evaluation and treatment. Upon presentation to the emergency department patient was hypoxic on room air with SPO2 of 88 to 90% and continue to have emesis. Work-up in the emergency department revealed leukocytosis, thrombocytosis, acute hypoxic respiratory failure, SIRS. Patient was admitted as a COVID-19 PUI with acute hypoxic respiratory failure. 11/12/2020 Patient doing well, Discussed with daughter at length about her prognosis and treatment, No nausea vomiting since morning Coronavirus PCR came positive 11/13/2020 Patient coded last night and was intubated, ROSC. Patient on vent, Survey Compiler consult and ID consult 11/14/2020 Patient intubated, Weaning in progress 11/15/2020; patient remains intubated, on vasopressors for septic shock. Critically ill, poor prognosis, discussed with daughter Kirstin who understands the severity of illness, she wants to talk to the family. If the family agrees she is considering DNR/withdrawal of care, I informed patient's nurse 11/16/2020; Patient remains intubated, on Levophed, Severe sepsis due to COVID-19 pneumonia, critically ill, on heparin drip 11/17/2020; Patient remains critically ill. Septic shock on norepinephrine. Intubated on vent, Very poor prognosis Family unable to decide the goals of treatment CODE STATUS; Recommend palliative care/hospice 11/18: PICC team consulted for placement of PICC, patient noted to have minimal output from NG tube and tube feeding will be restarted, patient will be left w ith Reglan. CCM decrease PEEP. Hypocalcemia and hypomagnesemia repleted. 11/19: Patient's H/H is trending down, having dark stools via FMS and GI was consulted today. Placed on PPI and NG tube to low normal suction, start stool guaiac positive. Per CCM discontinue Lind catheter. Patient will now be on every 6 H&H and will to be transfused with 2 units PRBC. Long family meeting conducted today with hospitalist, CCM and administration. 11/20: GI at bedside to perform endoscopy, patient's blood pressure has been labile today and RN has been going up and down on vasopressors. Patient is st ill having melena and received 1 unit PRBC yesterday evening. 11/21: Patient midnight h/h noted to be 10/30 this morning from 12/31 prior and two units prbc were ordered. Repeat hbg 6.05/01. Patient had a cardiac arrest today (see event note/code sheet for details). Received 2 additional prbc and 1 ffp. Coags pending. Family updated and code status changed. 11/22: H/H remains stable, pt remains on vasopressors and having melana. Thrombocytopenic today and 1 unit plts ordered. HIT ordered. 11/23: Patient's H/H this morning dropped to 9.6/28.8 from . Patient remains alkalotic, hyponatremic and hypokalemic. Patient's IV fluids changed to calcium repleted. Patient remains on vasopressors. I updated daughter Kirstin today Hospitalist Physical - Constitutional Vitals: Temp Pulse Resp BP Pulse Ox 97.0 F L 65 21 121/46 96 11/23/20 16:00 11/23/20 17:15 11/23/20 17:15 11/23/20 15:29 11/23/20 17:15 General appearance: Present: other (Intubated, not interactive) - EENT ENT: poor dentition, other (Oral mucosa with blood tinged dried secretions) - Respiratory Respiratory effort: normal Respiratory: bilateral: diminished - Cardiovascular Rhythm: regular Heart Sounds: Present: S1 & S2. Absent: systolic murmur, diastolic murmur - Extremities Extremities: pulses intact Extremity abnormal: edema, erythema, cold Peripheral Pulses: within normal limits - Abdominal General gastrointestinal: soft, non-tender, non-distended, normal bowel sounds - Integumentary Integumentary: Present: dry, clammy - Psychiatric Psychiatric: other (Not interactive) - Neurologic Neurologic: other (Not interactive, positive cough/gag) - Allied Health Allied health notes reviewed: nursing, RT, social work HEART Score - HEART Score Age: > 65 Risk factors: 1-2 risk factors Troponin: Troponin T < 0.010 ng/mL (0.00-0.029) 11/11/20 13:39 - Critical Actions Critical Actions: 0-3 pts:0.9-1.7%risk of adverse cardiac event.Candidate for discharge Results - Labs CBC & Chem 7: 11/23/20 04:00 11/23/20 04:00 Labs: Laboratory Last Values WBC 15.2 K/mm3 (4.5-11.0) H 11/23/20 04:00 RBC 3.27 M/mm3 (3.65-5.03) L 11/23/20 04:00 Hgb 9.6 gm/dl (10.1-14.3) L 11/23/20 04:00 Hct 28.8 % (30.3-42.9) L 11/23/20 04:00 MCV 88 fl (79-97) 11/23/20 04:00 MCH 29 pg (28-32) 11/23/20 04:00 MCHC 33 % (30-34) 11/23/20 04:00 RDW 15.7 % (13.2-15.2) H 11/23/20 04:00 Plt Count 38 K/mm3 (140-440) L 11/23/20 04:00 Lymph % (Auto) 5.7 % (13.4-35.0) L 11/13/20 05:23 [place] % (Auto) 9.0 % (0.0-7.3) H 11/13/20 05:23 Eos % (Auto) 0.0 % (0.0-4.3) 11/13/20 05:23 Baso % (Auto) 0.0 % (0.0-1.8) 11/13/20 05:23 Lymph # (Auto) 0.9 K/mm3 (1.2-5.4) L 11/13/20 05:23 [place] # (Auto) 1.4 K/mm3 (0.0-0.8) H 11/13/20 05:23 Eos # (Auto) 0.0 K/mm3 (0.0-0.4) 11/13/20 05:23 Baso # (Auto) 0.0 K/mm3 (0.0-0.1) 11/13/20 05:23 Add Manual Diff Complete 11/20/20 04:09 Total Counted 100 11/20/20 04:09 Seg Neutrophils % 85.3 % (40.0-70.0) H 11/13/20 05:23 Seg Neuts % (Manual) 77.0 % (40.0-70.0) H 11/20/20 04:09 Band Neutrophils % 13.0 % 11/20/20 04:09 Lymphocytes % (Manual) 3.0 % (13.4-35.0) L 11/20/20 04:09 Monocytes % (Manual) 3.0 % (0.0-7.3) 11/20/20 04:09 Metamyelocytes % 4.0 % 11/20/20 04:09 Nucleated RBC % Not Reportable 11/20/20 04:09 Seg Neutrophils # 13.6 K/mm3 (1.8-7.7) H 11/13/20 05:23 Seg Neutrophils # Man 16.1 K/mm3 (1.8-7.7) H 11/20/20 04:09 Band Neutrophils # 2.7 K/mm3 11/20/20 04:09 Lymphocytes # (Manual) 0.6 K/mm3 (1.2-5.4) L 11/20/20 04:09 Abs React Lymphs (Man) 0.0 K/mm3 11/20/20 04:09 Monocytes # (Manual) 0.6 K/mm3 (0.0-0.8) 11/20/20 04:09 Eosinophils # (Manual) 0.0 K/mm3 (0.0-0.4) 11/20/20 04:09 Basophils # (Manual) 0.0 K/mm3 (0.0-0.1) 11/20/20 04:09 Metamyelocytes # 0.8 K/mm3 11/20/20 04:09 Myelocytes # 0.0 K/mm3 11/20/20 04:09 Promyelocytes # 0.0 K/mm3 11/20/20 04:09 Blast Cells # 0.0 K/mm3 11/20/20 04:09 WBC Morphology Not Reportable 11/20/20 04:09 Hypersegmented Neuts Not Reportable 11/20/20 04:09 Hyposegmented Neuts Not Reportable 11/20/20 04:09 Hypogranular Neuts Not Reportable 11/20/20 04:09 Smudge Cells Not Reportable 11/20/20 04:09 Toxic Granulation Not Reportable 11/20/20 04:09 Toxic Vacuolation Not Reportable 11/20/20 04:09 Dohle Bodies Not Reportable 11/20/20 04:09 Pelger-Huet Anomaly Not Reportable 11/20/20 04:09 Vernell Rods Not Reportable 11/20/20 04:09 Platelet Estimate Consistent w auto 11/20/20 04:09 Clumped Platelets Not Reportable 11/20/20 04:09 Plt Clumps, EDTA Not Reportable 11/20/20 04:09 Large Platelets Not Reportable 11/20/20 04:09 Giant Platelets Not Reportable 11/20/20 04:09 Platelet Satelliting Not Reportable 11/20/20 04:09 Plt Morphology Comment Not Reportable 11/20/20 04:09 RBC Morphology Not Reportable 11/20/20 04:09 Dimorphic RBCs Not Reportable 11/20/20 04:09 Polychromasia Few 11/20/20 04:09 Hypochromasia Few 11/20/20 04:09 Poikilocytosis Not Reportable 11/20/20 04:09 Anisocytosis Not Reportable 11/20/20 04:09 Microcytosis Not Reportable 11/20/20 04:09 Macrocytosis Not Reportable 11/20/20 04:09 Spherocytes Not Reportable 11/20/20 04:09 Pappenheimer Bodies Not Reportable 11/20/20 04:09 Sickle Cells Not Reportable 11/20/20 04:09 Target Cells Not Reportable 11/20/20 04:09 Tear Drop Cells Not Reportable 11/20/20 04:09 Ovalocytes Not Reportable 11/20/20 04:09 Helmet Cells Not Reportable 11/20/20 04:09 [place] Bodies Not Reportable 11/20/20 04:09 Mcgraws Rings Not Reportable 11/20/20 04:09 [place] Cells Not Reportable 11/20/20 04:09 Bite Cells Not Reportable 11/20/20 04:09 Crenated Cell Not Reportable 11/20/20 04:09 Elliptocytes Not Reportable 11/20/20 04:09 Acanthocytes (Spur) Not Reportable 11/20/20 04:09 Rouleaux Not Reportable 11/20/20 04:09 Hemoglobin C Crystals Not Reportable 11/20/20 04:09 Schistocytes Not Reportable 11/20/20 04:09 Malaria parasites Not Reportable 11/20/20 04:09 Mauro Bodies Not Reportable 11/20/20 04:09 Hem Pathologist Commnt No 11/20/20 04:09 PT 21.0 Sec. (12.2-14.9) H 11/23/20 04:00 INR 1.75 (0.87-1.13) H 11/23/20 04:00 APTT 29.9 Sec. (24.2-36.6) 11/22/20 Unknown Fibrinogen 200 mg/dl (211-480) L 11/22/20 02:00 D-Dimer 2595.90 ng/mlDDU (0-234) H 11/22/20 02:00 Heparin Anti-Xa Level 1.24 U.I./ml (0.3-0.7) H 11/21/20 11:12 ABG pH 7.518 (7.320-7.450) H 11/23/20 05:04 POC ABG pCO2 14.6 mmHg (32.0-48.0) L 11/23/20 05:04 POC ABG pO2 84.4 mmHg (83-108) 11/23/20 05:04 POC ABG HCO3 11.6 11/23/20 05:04 ABG O2 Saturation 96.0 (0-100) 11/23/20 05:04 POC ABG Base Excess -10.6 11/23/20 05:04 ABG Hemoglobin 5.3 (12.0-17.5) L 11/23/20 05:04 ABG Oxyhemoglobin 94.3 (94-98) 11/23/20 05:04 ABG Methemoglobin 0.3 (0.0-1.5) 11/23/20 05:04 ABG Sodium 144.4 mmol/L (136.0-145.0) 11/23/20 05:04 ABG Potassium 1.5 mmol/L (3.40-4.50) L 11/23/20 05:04 ABG Chloride 129.0 mmol/L (98-107) H 11/23/20 05:04 ABG Glucose 99 mg/dL (65-95) H 11/23/20 05:04 Carboxyhemoglobin 1.5 (0.5-1.5) 11/23/20 05:04 FiO2 % 40.0 11/23/20 05:04 Sodium 152 mmol/L (137-145) H 11/23/20 04:00 Potassium 3.1 mmol/L (3.6-5.0) L 11/23/20 04:00 Chloride 112.5 mmol/L (98-107) H 11/23/20 04:00 Carbon Dioxide 27 mmol/L (22-30) 11/23/20 04:00 Anion Gap 16 mmol/L 11/23/20 04:00 BUN 77 mg/dL (7-17) H 11/23/20 04:00 Creatinine 2.0 mg/dL (0.6-1.2) H 11/23/20 04:00 Estimated GFR 24 ml/min 11/23/20 04:00 BUN/Creatinine Ratio 39 % 11/23/20 04:00 Glucose 177 mg/dL (65-100) H 11/23/20 04:00 POC Glucose 84 mg/dL (70-105) 11/23/20 17:24 Hemoglobin A1c 6.6 % (4-6) H 11/12/20 05:07 Lactic Acid 5.20 mmol/L (0.7-2.0) H* 11/22/20 Unknown Calcium 6.0 mg/dL (8.4-10.2) L 11/23/20 04:00 Phosphorus 4.50 mg/dL (2.5-4.5) 11/22/20 Unknown Magnesium 2.10 mg/dL (1.7-2.3) 11/23/20 04:00 Ferritin 1559.0 ng/mL (10.0-200.0) H 11/22/20 Unknown Total Bilirubin 1.10 mg/dL (0.1-1.2) 11/23/20 04:00 AST 1058 units/L (5-40) H 11/23/20 04:00 ALT 929 units/L (7-56) H 11/23/20 04:00 Alkaline Phosphatase 65 units/L (35-129) 11/23/20 04:00 Lactate Dehydrogenase 1131 units/L (91-180) H 11/21/20 09:53 Troponin T < 0.010 ng/mL (0.00-0.029) 11/11/20 13:39 C-Reactive Protein 1.90 mg/dL (0.00-1.30) H 11/22/20 Unknown Total Protein 3.6 g/dL (6.3-8.2) L 11/23/20 04:00 Albumin 1.6 g/dL (3.9-5) L 11/23/20 04:00 Albumin/Globulin Ratio 0.8 % 11/23/20 04:00 Lipase 55 units/L (13-60) 11/11/20 13:39 Procalcitonin < 0.05 ng/mL (<0.15) 11/11/20 16:59 Arterial Blood Glucose 99 mg/dL (65-95) H 11/23/20 05:04 Arterial Blood Ionized Calcium 3.3 mg/dL (4.6-5.3) L 11/22/20 11:00 Urine Color Janay (Yellow) 11/19/20 23:45 Urine Turbidity Cloudy (Clear) 11/19/20 23:45 Urine pH 5.0 (5.0-7.0) 11/19/20 23:45 Ur Specific [place] 1.015 (1.003-1.030) 11/19/20 23:45 Urine Protein 100 mg/dl mg/dL (Negative) 11/19/20 23:45 Urine Glucose (UA) Neg mg/dL (Negative) 11/19/20 23:45 Urine Ketones Neg mg/dL (Negative) 11/19/20 23:45 Urine Blood Lg (Negative) 11/19/20 23:45 Urine Nitrite Neg (Negative) 11/19/20 23:45 Ur Reducing Substances TNR 11/14/20 06:15 Urine Bilirubin Neg (Negative) 11/19/20 23:45 Urine Ictotest TNR 11/14/20 06:15 Urine Urobilinogen < 2.0 mg/dL (<2.0) 11/19/20 23:45 Ur Leukocyte Esterase Mod (Negative) 11/19/20 23:45 Urine WBC (Auto) > 182.0 /HPF (0.0-6.0) H 11/19/20 23:45 Urine RBC (Auto) > 182.0 /HPF (0.0-6.0) 11/19/20 23:45 U Epithel Cells (Auto) 3.0 /HPF (0-13.0) 11/19/20 23:45 Urine Bacteria (Auto) 4+ /HPF (Negative) 11/19/20 23:45 Urine WBC Clumps 3+ /HPF 11/14/20 06:15 Ur Transition Epith Cell 4 /HPF 11/19/20 23:45 Urine Mucus Few /HPF 11/19/20 23:45 Ur Yeast w Hyphae 2+ /HPF 11/19/20 23:45 Urine Yeast (Budding) 3+ /HPF 11/19/20 23:45 Urine Creatinine 80.2 mg/dL (0.1-20.0) H 11/14/20 06:15 Urine Sodium 28 mmol/L 11/14/20 06:15 Coronavirus (PCR) Positive (Negative) A 11/11/20 Unknown Blood Type A POSITIVE 11/19/20 19:45 Antibody Screen Negative 11/19/20 19:45 Crossmatch See Detail 11/19/20 19:45 Lind/IV: Voiding Method External Female Catheter Active Medications - Current Medications Current Medications: Generic Name Dose Route Start Last Admin Trade Name Freq PRN Reason Stop Dose Admin Acetaminophen 650 mg 11/11/20 22:11 11/19/20 11:30 Acetaminophen 325 Mg Tab PO 650 mg Q4H PRN Administration Pain MILD(1-3)/Fever >100.5/ERAZO Acetazolamide 250 mg 11/23/20 11:00 11/23/20 11:24 Acetazolamide 500 Mg Vial IV 11/23/20 22:01 250 mg Q12HR CARLOS Administration Albuterol 2.5 mg 11/13/20 07:40 Albuterol 2.5 Mg/3 Ml Nebu IH Q4HRT PRN Shortness Of Breath Lipase/Protease/Amylase 1 each 11/13/20 17:32 Lipase 10,500/Protease 25,000/Amylase 43,750 (Units) Dr Cap FEEDTUBE PRN PRN For Clogged Feeding Tube Ascorbic Acid 500 mg 11/13/20 22:00 11/23/20 11:13 Ascorbic Acid 500 Mg Tab PO Not Given BID CARLOS Baclofen 10 mg 11/11/20 22:09 Baclofen 10 Mg Tab PO TID PRN MUSCLE SPASMS & PAIN Dextrose 50 ml 11/13/20 16:43 11/22/20 05:27 Dextrose 50% In Water (25gm) 50 Ml Syringe IV 50 ml Q30MIN PRN Administration Hypoglycemia Protocol Fentanyl 50 mcg 11/13/20 05:33 Fentanyl 100 Mcg/2 Ml Inj IV Q10MIN PRN ANALGESIA Hydrophilic Ointment 1 applic 11/13/20 05:33 Lip Therapy Vaseline TP Q2HR PRN Dry Lips Fentanyl Citrate 2,000 mcg in 100 mls @ 3.81 mls/hr 11/13/20 06:00 11/21/20 15:00 Fentanyl Drip Premix IV 0 mcg/kg/hr TITR CARLOS 0 mls/hr Titration Protocol 1 MCG/KG/HR NORepinephrine/NS 8 MG-250 ML 8 mg in 250 mls @ 3.75 mls/hr 11/13/20 15:00 11/23/20 15:30 Norepinephrine/Ns 8 Mg-250 Ml (Double Conc) IV 10 mcg/min TITRATE CARLOS 18.75 mls/hr Titration Protocol 2 MCG/MIN Vasopressin 20 unit/ Sodium 101 mls @ 9.09 mls/hr 11/19/20 09:00 11/23/20 14:54 Chloride IV 0 units/min TITR CARLOS 0 mls/hr Titration Protocol 0.03 UNITS/MIN Cefepime HCl 2 gm in 100 mls @ 200 mls/hr 11/20/20 14:00 11/23/20 14:05 Cefepime/Ns 2 Gm/100 Ml IV 200 mls/hr Q12H CARLOS Administration Protocol Vancomycin HCl 1,500 mg/ 530 mls @ 333.333 mls/hr 11/20/20 15:00 11/23/20 14:05 Sodium Chloride IV 333.333 mls/hr Q24H CARLOS Administration Phenylephrine HCl 100 mg/ 100 mls @ 3 mls/hr 11/21/20 08:15 11/21/20 17:53 Sodium Chloride IV 0 mcg/min TITR CARLOS 0 mls/hr Titration Protocol 50 MCG/MIN Epinephrine 16 mg/ Sodium 250 mls @ 1.875 mls/hr 11/21/20 11:00 11/22/20 01:00 Chloride IV 0 mcg/min TITR CARLOS 0 mls/hr Titration Protocol 2 MCG/MIN Pantoprazole Sodium 80 mg/ 100 mls @ 10 mls/hr 11/22/20 21:14 11/23/20 11:12 Sodium Chloride IV 8 mg/hr DIRECT CARLOS 10 mls/hr Administration 8 MG/HR Potassium Chloride 20 meq/ 1,010 mls @ 42 mls/hr 11/23/20 12:00 11/23/20 14:05 Dextrose IV 42 mls/hr DIRECT CARLOS Administration Insulin Human Regular 0 units 11/21/20 00:00 11/23/20 17:32 Insulin Regular, Human 100 Units/1 Ml SUB-Q Not Given Q6HR CARLOS Protocol Multi-Ingred Cream/Lotion/Oil/Oint 1 applic 11/13/20 05:33 Mineral Oil/Petrolatum, White Ophth Oint 3.5 Gm OU Q4HR PRN Dry Eye(s) Ondansetron HCl 4 mg 11/11/20 22:11 Ondansetron 4 Mg/2 Ml Inj IV Q3H PRN Nausea And Vomiting Simple Syrup 15 ml 11/13/20 17:32 Simple Syrup 15 Ml FEEDTUBE PRN PRN Hypoglycemia Simple Syrup 30 ml 11/13/20 17:32 Simple Syrup 15 Ml FEEDTUBE PRN PRN Hypoglycemia Sodium Bicarbonate 325 mg 11/13/20 17:32 Sodium Bicarbonate 325 Mg Tab FEEDTUBE PRN PRN For Clogged Feeding Tube Sodium Chloride 10 ml 11/12/20 10:00 11/23/20 11:13 Sodium Chloride 0.9% 10 Ml Flush Syringe IV 10 ml BID CARLOS Administration Sodium Chloride 10 ml 11/11/20 22:11 11/22/20 20:50 Sodium Chloride 0.9% 10 Ml Flush Syringe IV 10 ml PRN PRN Administration LINE FLUSH Zinc Sulfate 220 mg 11/13/20 22:00 11/23/20 11:13 Zinc Sulfate 220 Mg Cap PO Not Given BID CARLOS Nutrition/Malnutrition Assess - Dietary Evaluation Nutrition/Malnutrition Findings: Nutrition Notes Start: 11/13/20 17:25 Freq: Status: Active Protocol: Document 11/22/20 11:22 (Rec: 11/22/20 11:24 [id number]) Nutrition Notes Initial or Follow up Brief Note Current Diagnosis Sepsis,Respiratory Failure Other Pertinent Diagnosis GIB, COVID-19 (+), Dehydration , (L) renal stone Current Diet Vital AF 1.2 at 50 ml/hr Subjective/Other Information Pt suffered code yesterday. TF is off per GI until pt is more stable. Nutrition Intervention Follow-Up By: 11/26/20 Additional Comments F/u: TF restart and tolerance
[2020-11-23] MEDS: NORepinephrine/NS 8 MG-250 ML 8 MG/250 ML INFUS..BTL IV SCH (18:27)
--- NOTE | 2020-11-24 03:00 | XRay Report ---
CHEST 1 VIEW 11/24/2020 1:44 AM INDICATION / CLINICAL INFORMATION: hypoxia. COMPARISON: 11/23/2020 FINDINGS: SUPPORT DEVICES: NG tube has tip at GE junction and sidehole noted in distal thoracic esophagus and s hould be advanced further distally into stomach. Other Lines and tubes again project in expected posi tion HEART / MEDIASTINUM: No significant abnormality. LUNGS / PLEURA: Bilateral pleural-parenchymal disease has slightly worsened No pneumothorax. ADDITIONAL FINDINGS: No significant additional findings. IMPRESSION: 1. Worsening bilateral pleural-parenchymal disease 2. NG tube should be advanced further into stomach Signer Name: Guanakito Orellana MD Signed: 11/24/2020 2:56 AM Workstation Name: [id number]
[2020-11-24] MEDS: CEFEPIME/NS 2 GM/100 ML 2 GM/100 ML BAG IV SCH (03:16)
[2020-11-24 05:53] LABS: Hematocrit 32.6 % (30.3-42.9); Hemoglobin 10.9 gm/dl (10.1-14.3); Mean Corpuscular HGB Conc 34 % (30-34); Mean Corpuscular Volume 89 fl (79-97); Red Blood Count 3.66 M/mm3 (3.65-5.03); Red Cell Distribution Width 16.2 % (13.2-15.2)
[2020-11-24 05:54] LABS: Platelet Count 28 K/mm3 (140-440)
[2020-11-24] MEDS: INSULIN REGULAR, HUMAN 100 UNITS/1 ML SUB-Q SCH ×3 (06:03→17:25)
[2020-11-24 06:06] LABS: INR 1.95 (0.87-1.13)
[2020-11-24 06:07] LABS: Partial Thromboplastin Time 31.7 Sec. (24.2-36.6)
[2020-11-24 06:14] LABS: Alanine Aminotransferase 5 units/L (7-56)
[2020-11-24 06:15] LABS: Albumin < 0.2 g/dL (3.9-5)
[2020-11-24] MEDS: NORepinephrine/NS 8 MG-250 ML 8 MG/250 ML INFUS..BTL IV SCH ×2 (06:36→17:23)
[2020-11-24] MEDS: PANTOPRAZOLE 80 MG in SODIUM CHLORIDE 0.9% 100 ML IV SCH ×2 (06:37→17:24)
[2020-11-24 06:38] LABS: BUN/Creatinine Ratio 42; Blood Urea Nitrogen 75 mg/dL (7-17); Calcium 6.6 mg/dL (8.4-10.2); Hemolysis Index 8
[2020-11-24] MEDS: ASCORBIC ACID 500 MG TAB PO SCH (10:11)
[2020-11-24] MEDS: ZINC SULFATE 220 MG CAP PO SCH (10:11)
--- NOTE | 2020-11-24 10:12 | Progress Note ---
Assessment and Plan 1. Acute kidney injury: KATLYN in the setting of severe Covid infection. Patient is also hypotensive. Received IV contrast 11/13. CT abdomen showed non-obstructive 7 mm distal left ureteral stone. Low FeNa. Monitor renal function. Creatinine leveled off. Avoid nephrotoxic agents. Meds dosage based on GFR. 2. FEN: Hypernatremia, hypotonic IV fluids, monitor. Metabolic alkalosis, improved, monitor. Hypokalemia, replete K as needed, monitor. Replete Calcium. Monitor lytes and volume status. 3. Acute respiratory failure with hypoxemia: 2/2 Covid PNA. Currently on vent, wean as tolerated. 4. Shock: On Levophed. Monitor. 5. Covid PNA: Followed by ID. 6. L ureteral stone: S/p b/l stent. Seen by Urologist. 7. Elevated ALT & AST: Trend. 8. DM type 2: Monitor. Subjective: Patient was seen and examined at the bedside. Examination: General appearance: well-developed, appears stated age, intubated on vent HEENT: atraumatic, no icterus Neck: trachea midline Respiratory: MV sounds Heart: S1S2, regular, no murmur Abdomen: soft, bowel sounds heard, NT Integumentary: no obvious rash Neurologic: not responding Ext: LE and dependent edema noted Subjective Date of service: 11/24/20 Principal diagnosis: Ac hypoxemic resp failure; COVID-19 infxn; Pneumonia; KATLYN; AMS; Sepsis Objective - Vital Signs Vital signs: Vital Signs - 12hr 11/23/20 11/23/20 11/23/20 22:15 22:30 22:31 Temperature Pulse Rate 60 58 L 59 L Pulse Rate [ From Monitor] Respiratory 24 13 25 H Rate Blood Pressure 153/58 O2 Sat by Pulse 98 98 98 Oximetry 11/23/20 11/23/20 11/23/20 22:45 22:48 23:01 Temperature Pulse Rate 57 L 57 L 61 Pulse Rate [ From Monitor] Respiratory 25 H 12 14 Rate Blood Pressure 153/58 O2 Sat by Pulse 98 98 98 Oximetry 11/23/20 11/23/20 11/23/20 23:15 23:31 23:45 Temperature Pulse Rate 59 L 61 54 L Pulse Rate [ From Monitor] Respiratory 12 18 24 Rate Blood Pressure O2 Sat by Pulse 97 98 98 Oximetry 0811/24/20 11/24/20 23:56 00:01 00:15 Temperature 96.8 F L Pulse Rate 59 L 59 L Pulse Rate [ 59 L From Monitor] Respiratory 14 25 H Rate Blood Pressure O2 Sat by Pulse 98 98 Oximetry 11/24/20 11/24/20 11/24/20 00:31 00:45 01:01 Temperature Pulse Rate 59 L 68 58 L Pulse Rate [ From Monitor] Respiratory 24 22 12 Rate Blood Pressure O2 Sat by Pulse 98 98 98 Oximetry 11/24/20 11/24/20 11/24/20 01:15 01:31 01:45 Temperature Pulse Rate 62 57 L 66 Pulse Rate [ From Monitor] Respiratory 27 H 26 H 26 H Rate Blood Pressure O2 Sat by Pulse 98 99 98 Oximetry 11/24/20 11/24/20 11/24/20 02:01 02:15 02:31 Temperature Pulse Rate 61 67 68 Pulse Rate [ From Monitor] Respiratory 14 27 H 26 H Rate Blood Pressure O2 Sat by Pulse 97 98 98 Oximetry 11/24/20 11/24/20 11/24/20 02:45 03:01 03:15 Temperature Pulse Rate 67 63 66 Pulse Rate [ From Monitor] Respiratory 28 H 27 H 24 Rate Blood Pressure O2 Sat by Pulse 98 99 99 Oximetry 11/24/20 11/24/20 11/24/20 03:20 03:31 03:42 Temperature Pulse Rate 66 63 67 Pulse Rate [ 69 From Monitor] Respiratory 24 24 Rate Blood Pressure 121/46 O2 Sat by Pulse 96 99 98 Oximetry 11/24/20 11/24/20 11/24/20 03:45 04:01 04:15 Temperature Pulse Rate 65 72 66 Pulse Rate [ From Monitor] Respiratory 19 26 H 25 H Rate Blood Pressure O2 Sat by Pulse 99 98 98 Oximetry 11/24/20 11/24/20 11/24/20 04:31 04:45 04:53 Temperature Pulse Rate 68 76 66 Pulse Rate [ From Monitor] Respiratory 27 H 32 H Rate Blood Pressure O2 Sat by Pulse 98 98 Oximetry 11/24/20 11/24/20 11/24/20 05:00 05:15 05:31 Temperature Pulse Rate 74 74 73 Pulse Rate [ From Monitor] Respiratory 31 H 22 20 Rate Blood Pressure O2 Sat by Pulse 97 97 97 Oximetry 11/24/20 11/24/20 11/24/20 05:45 06:01 06:15 Temperature Pulse Rate 72 75 72 Pulse Rate [ From Monitor] Respiratory 29 H 24 29 H Rate Blood Pressure O2 Sat by Pulse 97 98 98 Oximetry 11/24/20 11/24/20 11/24/20 06:31 06:45 07:00 Temperature Pulse Rate 72 76 Pulse Rate [ From Monitor] Respiratory 31 H 24 Rate Blood Pressure O2 Sat by Pulse 98 98 97 Oximetry 11/24/20 11/24/20 11/24/20 07:01 07:15 07:31 Temperature Pulse Rate 73 72 74 Pulse Rate [ From Monitor] Respiratory 28 H 24 25 H Rate Blood Pressure O2 Sat by Pulse 98 98 98 Oximetry 11/24/20 11/24/20 11/24/20 07:45 07:49 08:00 Temperature 98 F Pulse Rate 71 68 76 Pulse Rate [ From Monitor] Respiratory 22 Rate Blood Pressure 116/47 O2 Sat by Pulse 99 99 Oximetry 11/24/20 11/24/20 11/24/20 08:01 08:15 08:31 Temperature Pulse Rate 76 74 70 Pulse Rate [ From Monitor] Respiratory 33 H 25 H 23 Rate Blood Pressure O2 Sat by Pulse 100 97 97 Oximetry 11/24/20 11/24/20 11/24/20 08:45 09:01 09:15 Temperature Pulse Rate 78 83 70 Pulse Rate [ From Monitor] Respiratory 16 25 H 24 Rate Blood Pressure O2 Sat by Pulse 94 92 96 Oximetry 11/24/20 11/24/20 11/24/20 09:31 09:45 10:01 Temperature Pulse Rate 71 69 66 Pulse Rate [ From Monitor] Respiratory 26 H 28 H 20 Rate Blood Pressure O2 Sat by Pulse 96 97 97 Oximetry - Lab 11/25/20 12:00 11/25/20 12:00 Most recent lab results ABG pH 7.508 (7.320-7.450) H 11/24/20 04:00 ABG O2 Saturation 95.7 (0-100) 11/24/20 04:00 Calcium 6.6 mg/dL (8.4-10.2) L 11/24/20 05:30 Phosphorus 3.70 mg/dL (2.5-4.5) 11/24/20 05:30 Magnesium 2.00 mg/dL (1.7-2.3) 11/24/20 05:30 Urine Creatinine 80.2 mg/dL (0.1-20.0) H 11/14/20 06:15 Urine Sodium 28 mmol/L 11/14/20 06:15 Medications & Allergies - Medications Allergies/Adverse Reactions: Allergies morphine Adverse Reaction (Verified 05/26/13 19:22) Nausea Home Medications: Home Medications Medication Instructions Recorded Confirmed Last Taken Type Acetaminophen [Tylenol] 325 mg PO DAILY #10 tablet 05/26/13 11/24/20 10/16/14 Rx Baclofen [Lioresal] 10 mg PO TID PRN 05/26/13 11/24/20 10/16/14 History Diazepam [Valium] 10 mg PO BID 05/26/13 11/24/20 10/16/14 History PARoxetine [Paxil] 10 mg PO DAILY 05/26/13 11/24/20 10/16/14 19:00 History Quetiapine Fumarate [SEROquel XR] 200 mg PO DAILY 05/26/13 11/24/20 10/16/14 History rOPINIRole [Requip] 1 mg PO QHS 05/26/13 11/24/20 10/16/14 19:00 History QUEtiapine [SEROquel] 200 mg PO QHS 05/28/13 11/24/20 10/16/14 19:00 History Famotidine [Pepcid] 10 mg PO BID #60 tablet 06/02/13 11/24/20 10/16/14 Rx levoFLOXacin [Levaquin] 750 mg PO QDAY #7 tablet 06/02/13 11/24/20 10/16/14 Rx metroNIDAZOLE [Flagyl] 500 mg PO Q8HR #30 tablet 06/02/13 11/24/20 10/16/14 Rx Hydromorphone HCl [Dilaudid] 4 mg PO PRN 10/17/14 11/24/20 10/16/14 History Oxycodone HCl/Acetaminophen 1 each PO Q6HR PRN 10/17/14 11/24/20 10/16/14 History [Percocet 10-325 mg] Oxycodone HCl/Acetaminophen 1 each PO Q6HR PRN #30 tablet 10/18/14 11/24/20 Unknown Rx [Percocet 10-325 mg] Active Medications: Generic Name Dose Route Start Last Admin Trade Name Freq PRN Reason Stop Dose Admin Acetaminophen 650 mg 11/11/20 22:11 11/19/20 11:30 Acetaminophen 325 Mg Tab PO 650 mg Q4H PRN Administration Pain MILD(1-3)/Fever >100.5/ERAZO Albuterol 2.5 mg 11/13/20 07:40 Albuterol 2.5 Mg/3 Ml Nebu IH Q4HRT PRN Shortness Of Breath Lipase/Protease/Amylase 1 each 11/13/20 17:32 Lipase 10,500/Protease 25,000/Amylase 43,750 (Units) Dr Cap FEEDTUBE PRN PRN For Clogged Feeding Tube Ascorbic Acid 500 mg 11/13/20 22:00 11/24/20 10:11 Ascorbic Acid 500 Mg Tab PO Not Given BID CARLOS Baclofen 10 mg 11/11/20 22:09 Baclofen 10 Mg Tab PO TID PRN MUSCLE SPASMS & PAIN Dextrose 50 ml 11/13/20 16:43 11/22/20 05:27 Dextrose 50% In Water (25gm) 50 Ml Syringe IV 50 ml Q30MIN PRN Administration Hypoglycemia Protocol Fentanyl 50 mcg 11/13/20 05:33 Fentanyl 100 Mcg/2 Ml Inj IV Q10MIN PRN ANALGESIA Hydrophilic Ointment 1 applic 11/13/20 05:33 Lip Therapy Vaseline TP Q2HR PRN Dry Lips Fentanyl Citrate 2,000 mcg in 100 mls @ 3.81 mls/hr 11/13/20 06:00 11/21/20 15:00 Fentanyl Drip Premix IV 0 mcg/kg/hr TITR CARLOS 0 mls/hr Titration Protocol 1 MCG/KG/HR NORepinephrine/NS 8 MG-250 ML 8 mg in 250 mls @ 3.75 mls/hr 11/13/20 15:00 06:36 Norepinephrine/Ns 8 Mg-250 Ml (Double Conc) IV 10 mcg/min TITRATE CARLOS 18.75 mls/hr Administration Protocol 2 MCG/MIN Vasopressin 20 unit/ Sodium 101 mls @ 9.09 mls/hr 11/19/20 09:00 11/23/20 14:54 Chloride IV 0 units/min TITR CARLOS 0 mls/hr Titration Protocol 0.03 UNITS/MIN Cefepime HCl 2 gm in 100 mls @ 200 mls/hr 11/20/20 14:00 11/24/20 03:16 Cefepime/Ns 2 Gm/100 Ml IV 200 mls/hr Q12H CARLOS Administration Protocol Vancomycin HCl 1,500 mg/ 530 mls @ 333.333 mls/hr 11/20/20 15:00 11/23/20 14:05 Sodium Chloride IV 333.333 mls/hr Q24H CARLOS Administration Phenylephrine HCl 100 mg/ 100 mls @ 3 mls/hr 11/21/20 08:15 11/21/20 17:53 Sodium Chloride IV 0 mcg/min TITR CARLOS 0 mls/hr Titration Protocol 50 MCG/MIN Epinephrine 16 mg/ Sodium 250 mls @ 1.875 mls/hr 11/21/20 11:00 11/22/20 01:00 Chloride IV 0 mcg/min TITR CARLOS 0 mls/hr Titration Protocol 2 MCG/MIN Pantoprazole Sodium 80 mg/ 100 mls @ 10 mls/hr 11/22/20 21:14 11/24/20 06:37 Sodium Chloride IV 8 mg/hr DIRECT CARLOS 10 mls/hr Administration 8 MG/HR Potassium Chloride 20 meq/ 1,010 mls @ 42 mls/hr 11/23/20 12:00 11/23/20 14:05 Dextrose IV 42 mls/hr DIRECT CARLOS Administration Insulin Human Regular 0 units 11/21/20 00:00 11/24/20 06:03 Insulin Regular, Human 100 Units/1 Ml SUB-Q Not Given Q6HR CARLOS Protocol Multi-Ingred Cream/Lotion/Oil/Oint 1 applic 11/13/20 05:33 Mineral Oil/Petrolatum, White Ophth Oint 3.5 Gm OU Q4HR PRN Dry Eye(s) Ondansetron HCl 4 mg 11/11/20 22:11 Ondansetron 4 Mg/2 Ml Inj IV Q3H PRN Nausea And Vomiting Simple Syrup 15 ml 11/13/20 17:32 Simple Syrup 15 Ml FEEDTUBE PRN PRN Hypoglycemia Simple Syrup 30 ml 11/13/20 17:32 Simple Syrup 15 Ml FEEDTUBE PRN PRN Hypoglycemia Sodium Bicarbonate 325 mg 11/13/20 17:32 Sodium Bicarbonate 325 Mg Tab FEEDTUBE PRN PRN For Clogged Feeding Tube Sodium Chloride 10 ml 11/12/20 10:00 11/23/20 21:40 Sodium Chloride 0.9% 10 Ml Flush Syringe IV 10 ml BID CARLOS Administration Sodium Chloride 10 ml 11/11/20 22:11 11/22/20 20:50 Sodium Chloride 0.9% 10 Ml Flush Syringe IV 10 ml PRN PRN Administration LINE FLUSH Zinc Sulfate 220 mg 11/13/20 22:00 11/24/20 10:11 Zinc Sulfate 220 Mg Cap PO Not Given BID CARLOS
[2020-11-24] MEDS: POTASSIUM CHLORIDE 20 MEQ 20 MEQ/100 ML BAG IV SCH ×2 (10:47→12:06)
--- NOTE | 2020-11-24 10:55 | Progress Note ---
Assessment and Plan Cultures: Blood culture no growth so far Respiratory culture: few MRSA, <25 WBC Covid PCR: Positive A/P: 85-year-old female past medical history obesity, chronic low back pain, depression admitted with COVID-19 #Sepsis: Fever leukocytosis resolved. Likely due to COVID-19 pneumonia/MRSA pneumonia. #Severe COVID-19 pneumonia: Patient presented with a week of symptoms, chest x- ray with diffuse bilateral infiltrates, admission O2 sats 89-90% on room air. Inflammatory markers elevated. Normal procalcitonin. Was not remdesivir candidate due to renal function. #Acute hypoxemic respiratory failure: Likely secondary to COVID-19 infection. Currently on the vent. #Shock liver: in the setting of code blue #Acute blood loss anemia: s/p transfusions #Thrombocytopenia: Likely due to sepsis. #KATLYN: renally dose medications. not a candidate for remdesivir. Worsening. #GI bleed: Status post EGD with gastric ulcer status post endoscopic treatment. #Nephrolithiasis: with associated hydronephrosis. Initial UA was normal, second was was most likely highly contaminated given large amounts of blood and epithelial cells, and operative notes not indicative of infection. most recent one still with significant blood, however in the setting of recent urological procedure and new fevers will treat. Recs: -Continue vancomycin renally adjusted until 10 days given immunocompromised state and MRSA in sputum -Stop cefepime -Completed dexamethasone -Completed Tocilizumab -Obtain q48-72h inflammatory markers - ferritin, Ddimer, CRP, LDH -Anticoagulation per hospital protocol -Proning as able -Follow up urine cultures. MD Tan[facility] ([facility]) Office [phone] Subjective Date of service: 11/24/20 Principal diagnosis: Ac hypoxemic resp failure; COVID-19 infxn; Pneumonia; KATLYN; AMS; Sepsis Interval history: Remains on the ventilator, FiO2 40%, PEEP of 8, no fever, no desaturations. Some loose stool overnight. Objective - Exam Narrative Exam: Physical exam deferred to minimize COVID-19 transmission during pandemic. - Constitutional Vitals: Vital Signs Temp Pulse Resp BP Pulse Ox 98 F 66 20 116/47 97 11/24/20 08:00 11/24/20 10:01 11/24/20 10:01 11/24/20 07:49 11/24/20 10:01 Temperature -Last 24 Hours Temperature 98 F Temperature 96.8 F Temperature 97.4 F Temperature 97.0 F - Labs CBC & Chem 7: 11/24/20 05:30 11/24/20 05:30 Labs: Abnormal lab results 11/24/20 11/24/20 11/24/20 Range/Units 04:00 05:30 05:30 RDW (13.2-15.2) % Plt Count (140-440) K/mm3 PT 22.8 H (12.2-14.9) Sec. INR 1.95 H (0.87-1.13) D-Dimer 2825.65 H (0-234) ng/mlDDU ABG pH 7.508 H (7.320-7.450) POC ABG pCO2 31.7 L (32.0-48.0) mmHg POC ABG pO2 75.3 L (83-108) mmHg ABG Hemoglobin 10.6 L (12.0-17.5) ABG Sodium 145.3 H (136.0-145.0) mmol/L ABG Potassium 2.8 L (3.40-4.50) mmol/L ABG Chloride 112.0 H (98-107) mmol/L ABG Glucose 119 H (65-95) mg/dL Sodium (137-145) mmol/L Potassium (3.6-5.0) mmol/L Chloride (98-107) mmol/L BUN (7-17) mg/dL Creatinine (0.6-1.2) mg/dL Glucose (65-100) mg/dL POC Glucose (70-105) mg/dL Calcium (8.4-10.2) mg/dL Ferritin 531.5 H (10.0-200.0) ng/mL AST (5-40) units/L ALT (7-56) units/L Total Protein (6.3-8.2) g/dL Albumin (3.9-5) g/dL Arterial Blood Glucose 119 H (65-95) mg/dL Arterial Blood Ionized Calcium 3.8 L (4.6-5.3) mg/dL 11/24/20 11/24/20 11/24/20 Range/Units 05:30 05:30 05:53 RDW 16.2 H (13.2-15.2) % Plt Count 28 L (140-440) K/mm3 PT (12.2-14.9) Sec. INR (0.87-1.13) D-Dimer (0-234) ng/mlDDU ABG pH (7.320-7.450) POC ABG pCO2 (32.0-48.0) mmHg POC ABG pO2 (83-108) mmHg ABG Hemoglobin (12.0-17.5) ABG Sodium (136.0-145.0) mmol/L ABG Potassium (3.40-4.50) mmol/L ABG Chloride (98-107) mmol/L ABG Glucose (65-95) mg/dL Sodium 151 H (137-145) mmol/L Potassium 2.9 L* (3.6-5.0) mmol/L Chloride 113.8 H (98-107) mmol/L BUN 75 H (7-17) mg/dL Creatinine 1.8 H (0.6-1.2) mg/dL Glucose 117 H (65-100) mg/dL POC Glucose 107 H (70-105) mg/dL Calcium 6.6 L (8.4-10.2) mg/dL Ferritin (10.0-200.0) ng/mL AST 216 H (5-40) units/L ALT 5 L (7-56) units/L Total Protein 4.0 L (6.3-8.2) g/dL Albumin < 0.2 L (3.9-5) g/dL Arterial Blood Glucose (65-95) mg/dL Arterial Blood Ionized Calcium (4.6-5.3) mg/dL
--- NOTE | 2020-11-24 10:56 | Gastroenterology Progress Note ---
Assessment and Plan GI bleed - egd 11/20 with gastric ulcer s/p endoscopic treatment; H/H stable, cont IV PPI and transfusions as indicated (platelets, RBC, etc). no further recommendations from gi otherwise at this time. will sign off, please call as needed. Subjective Date of service: 11/24/20 Principal diagnosis: Ac hypoxemic resp failure; COVID-19 infxn; Pneumonia; KATLYN; AMS; Sepsis Interval history: no overt bleeding signs overnight/today Objective - Exam Narrative Exam: gen: on vent, nad abd: soft, nt cv: rrr lungs: coarse bs - Constitutional Vitals: Temp Pulse Resp BP Pulse Ox 98 F 66 20 116/47 97 11/24/20 08:00 11/24/20 10:01 11/24/20 10:01 11/24/20 07:49 11/24/20 10:01 - Labs CBC & Chem 7: 11/24/20 05:30 11/24/20 05:30 Labs: Laboratory Results - last 24 hr 11/23/20 11/23/20 11/23/20 12:49 17:24 23:15 WBC RBC Hgb Hct MCV MCH MCHC RDW Plt Count PT INR APTT D-Dimer ABG pH POC ABG pCO2 POC ABG pO2 POC ABG HCO3 ABG O2 Saturation POC ABG Base Excess ABG Hemoglobin ABG Oxyhemoglobin ABG Methemoglobin ABG Sodium ABG Potassium ABG Chloride ABG Glucose Carboxyhemoglobin FiO2 % Sodium Potassium Chloride Carbon Dioxide Anion Gap BUN Creatinine Estimated GFR BUN/Creatinine Ratio Glucose POC Glucose 88 84 100 Calcium Phosphorus Magnesium Ferritin Total Bilirubin AST ALT Alkaline Phosphatase C-Reactive Protein Total Protein Albumin Albumin/Globulin Ratio Arterial Blood Glucose Arterial Blood Ionized Calcium 11/24/20 11/24/20 11/24/20 04:00 05:30 05:30 WBC RBC Hgb Hct MCV MCH MCHC RDW Plt Count PT 22.8 H INR 1.95 H APTT 31.7 D-Dimer 2825.65 H ABG pH 7.508 H POC ABG pCO2 31.7 L POC ABG pO2 75.3 L POC ABG HCO3 24.6 ABG O2 Saturation 95.7 POC ABG Base Excess 1.9 ABG Hemoglobin 10.6 L ABG Oxyhemoglobin 94.9 ABG Methemoglobin 0.3 ABG Sodium 145.3 H ABG Potassium 2.8 L ABG Chloride 112.0 H ABG Glucose 119 H Carboxyhemoglobin 0.5 FiO2 % 40.0 Sodium Potassium Chloride Carbon Dioxide Anion Gap BUN Creatinine Estimated GFR BUN/Creatinine Ratio Glucose POC Glucose Calcium Phosphorus Magnesium Ferritin 531.5 H Total Bilirubin AST ALT Alkaline Phosphatase C-Reactive Protein Total Protein Albumin Albumin/Globulin Ratio Arterial Blood Glucose 119 H Arterial Blood Ionized Calcium 3.8 L 11/24/20 11/24/20 11/24/20 05:30 05:30 05:49 WBC 6.3 RBC 3.66 Hgb 10.9 Hct 32.6 MCV 89 MCH 30 MCHC 34 RDW 16.2 H Plt Count 28 L PT INR APTT D-Dimer ABG pH POC ABG pCO2 POC ABG pO2 POC ABG HCO3 ABG O2 Saturation POC ABG Base Excess ABG Hemoglobin ABG Oxyhemoglobin ABG Methemoglobin ABG Sodium ABG Potassium ABG Chloride ABG Glucose Carboxyhemoglobin FiO2 % Sodium 151 H Potassium 2.9 L* Chloride 113.8 H Carbon Dioxide 26 Anion Gap 14 BUN 75 H Creatinine 1.8 H Estimated GFR 27 BUN/Creatinine Ratio 42 Glucose 117 H POC Glucose 72 Calcium 6.6 L Phosphorus 3.70 Magnesium 2.00 Ferritin Total Bilirubin 1.00 AST 216 H ALT 5 L Alkaline Phosphatase 60 C-Reactive Protein 0.00 Total Protein 4.0 L Albumin < 0.2 L Albumin/Globulin Ratio 0.8 Arterial Blood Glucose Arterial Blood Ionized Calcium 11/24/20 05:53 WBC RBC Hgb Hct MCV MCH MCHC RDW Plt Count PT INR APTT D-Dimer ABG pH POC ABG pCO2 POC ABG pO2 POC ABG HCO3 ABG O2 Saturation POC ABG Base Excess ABG Hemoglobin ABG Oxyhemoglobin ABG Methemoglobin ABG Sodium ABG Potassium ABG Chloride ABG Glucose Carboxyhemoglobin FiO2 % Sodium Potassium Chloride Carbon Dioxide Anion Gap BUN Creatinine Estimated GFR BUN/Creatinine Ratio Glucose POC Glucose 107 H Calcium Phosphorus Magnesium Ferritin Total Bilirubin AST ALT Alkaline Phosphatase C-Reactive Protein Total Protein Albumin Albumin/Globulin Ratio Arterial Blood Glucose Arterial Blood Ionized Calcium
[2020-11-24] MEDS ORDERED: SODIUM CHLORIDE 0.9% 500 ML 500 ML IV ONE (12:00)
[2020-11-24] MEDS: POTASSIUM CHLORIDE 20 MEQ in DEXTROSE 5% IN WATER 1,000 ML IV SCH (12:08)
[2020-11-24] MEDS: DEXTROSE 50% IN WATER (25GM) 50 ML SYRINGE IV PRN (12:34)
--- NOTE | 2020-11-24 12:34 | Progress Note ---
Assessment and Plan Acute hypoxemic respiratory failure on MVS COVID-19 infection Pneumonia Severe Sepsis Acute toxic metabolic encephalopathy Inadvertently placed left carotid line Acute kidney injury Nephrolithiasis Leukocytosis Metabolic acidosis Mild hypernatremia - continue volume resuscitation - get Hematology consultation - transfuse platelets - hold on FFP's in abscence of gross bleeding (minimal NGT effluent and no BRBPR) - H&H holding - continue to hold CT angio abd & Pelvis till more as long as H&H stable and no gross bleeding - continue NGT to LIS to monitor for G.I. bleeding - continue to hold anticoagulation re: risk benefit ratio - continue PPI drip - wean vasopressors for MAP > 65 mmHg - continue care as below otherwise; - continue Daily SAT and SBT assessment as tolerated - continue to wean supplemental oxygen for target O2 sat's > 90% acutely - VAP bundle addressed - continue lung protective strategies - continue bronchodilators with pulmonary hygiene per RT - wean per pulmonary driven protocols otherwise - continue accuchecks with glycemic control per SSI (While critically ill target blood glucose of 140-180 mg/dL; avoid hypoglycemia) - sedation prn for target RASS 0 to -1 - avoid nephrotoxins, renally dose all medications - continue to avoid benzodiazepine's, reduce the possibility of delirium - AB's per ID rec's - prn analgesia per CPOT score - Maintenance of sleep-wake cycle, avoid delirium - continue enteral nutritional support at goal rate as tolerated - G.I. & VTE prophylaxis - PT/OT/ROM exercises - continue mobility protocols for pressure ulcer prophylaxis - Monitor hemodynamics closely - continue other care per attending / other consultants - discharge planning ongoing concurrently COVID SPECIFIC INTERVENTIONS - Remdesivir as per ID/Pulmonary developed protocols - continue systemic steroids for severe COVID-19 infection - s/p Actemra - follow repeat COVID tests results - zinc and vitamin C supplementation - Monitor inflammatory markers per facility protocol - ferritin, Ddimer, CRP - therapeutic anticoagulation per system Protocol based on d-dimer and clinical considerations (re: Carotid artery thrombus) - Continue contact and airborne isolation .... Re-evaluate in am & prn CONDITION: CRITICAL PROGNOSIS: GUARDED CODE STATUS: DNR/AND The high probability of a clinically significant, sudden or life-threatening deterioration of the [respiratory, cardiovascular, renal & neurologic] system(s) required my full and direct attention, intervention and personal management. The aggregate critical care time was [34] minutes without overlap. Time includes spent on; [x] Data Review and interpretation [x] Patient assessment and monitoring of vital signs [x] Documentation [x] Medication orders and management Subjective Date of service: 11/24/20 Principal diagnosis: Ac hypoxemic resp failure; COVID-19 infxn; Pneumonia; KATLYN; AMS; Sepsis Interval history: Patient is seen today for: Acute hypoxemic respiratory failure; COVID-19 infxn; Pneumonia; Acute toxic metabolic encephalopathy; Carotid Artery thrombus; KATLYN; Leukocytosis Seen and examined at bedside; 24hour events reviewed; nursing and respiratory ca re staff consulted; no adverse overnight events reported to me; resting in bed; remains on MVS; remains on Levophed now at 8 magdalene's/min but vasopressin discontinued; no emesis or overt aspiration; AMS is persistent Objective Vital Signs - 12hr 11/24/20 11/24/20 11/24/20 00:45 01:01 01:15 Temperature Pulse Rate 68 58 L 62 Pulse Rate [ From Monitor] Respiratory 22 12 27 H Rate Blood Pressure O2 Sat by Pulse 98 98 98 Oximetry 11/24/20 11/24/20 11/24/20 01:31 01:45 02:01 Temperature Pulse Rate 57 L 66 61 Pulse Rate [ From Monitor] Respiratory 26 H 26 H 14 Rate Blood Pressure O2 Sat by Pulse 99 98 97 Oximetry 11/24/20 11/24/20 11/24/20 02:15 02:31 02:45 Temperature Pulse Rate 67 68 67 Pulse Rate [ From Monitor] Respiratory 27 H 26 H 28 H Rate Blood Pressure O2 Sat by Pulse 98 98 98 Oximetry 11/24/20 11/24/20 11/24/20 03:01 03:15 03:20 Temperature Pulse Rate 63 66 66 Pulse Rate [ 69 From Monitor] Respiratory 27 H 24 24 Rate Blood Pressure O2 Sat by Pulse 99 99 96 Oximetry 11/24/20 11/24/20 11/24/20 03:31 03:42 03:45 Temperature Pulse Rate 63 67 65 Pulse Rate [ From Monitor] Respiratory 24 19 Rate Blood Pressure 121/46 O2 Sat by Pulse 99 98 99 Oximetry 11/24/20 11/24/20 11/24/20 04:01 04:15 04:31 Temperature Pulse Rate 72 66 68 Pulse Rate [ From Monitor] Respiratory 26 H 25 H 27 H Rate Blood Pressure O2 Sat by Pulse 98 98 98 Oximetry 11/24/20 11/24/20 11/24/20 04:45 04:53 05:00 Temperature Pulse Rate 76 66 74 Pulse Rate [ From Monitor] Respiratory 32 H 31 H Rate Blood Pressure O2 Sat by Pulse 98 97 Oximetry 11/24/20 11/24/20 11/24/20 05:15 05:31 05:45 Temperature Pulse Rate 74 73 72 Pulse Rate [ From Monitor] Respiratory 22 20 29 H Rate Blood Pressure O2 Sat by Pulse 97 97 97 Oximetry 11/24/20 11/24/20 11/24/20 06:01 06:15 06:31 Temperature Pulse Rate 75 72 72 Pulse Rate [ From Monitor] Respiratory 24 29 H 31 H Rate Blood Pressure O2 Sat by Pulse 98 98 98 Oximetry 11/24/20 11/24/20 11/24/20 06:45 07:00 07:01 Temperature Pulse Rate 76 73 Pulse Rate [ From Monitor] Respiratory 24 28 H Rate Blood Pressure O2 Sat by Pulse 98 97 98 Oximetry 11/24/20 11/24/20 11/24/20 07:15 07:31 07:45 Temperature Pulse Rate 72 74 71 Pulse Rate [ From Monitor] Respiratory 24 25 H 22 Rate Blood Pressure O2 Sat by Pulse 98 98 99 Oximetry 11/24/20 11/24/20 11/24/20 07:49 08:00 08:01 Temperature 98 F Pulse Rate 68 76 76 Pulse Rate [ From Monitor] Respiratory 33 H Rate Blood Pressure 116/47 O2 Sat by Pulse 99 100 Oximetry 11/24/20 11/24/20 11/24/20 08:15 08:31 08:45 Temperature Pulse Rate 74 70 78 Pulse Rate [ From Monitor] Respiratory 25 H 23 16 Rate Blood Pressure O2 Sat by Pulse 97 97 94 Oximetry 11/24/20 11/24/20 11/24/20 09:01 09:15 09:31 Temperature Pulse Rate 83 70 71 Pulse Rate [ From Monitor] Respiratory 25 H 24 26 H Rate Blood Pressure O2 Sat by Pulse 92 96 96 Oximetry 11/24/20 11/24/20 11/24/20 09:45 10:01 10:15 Temperature Pulse Rate 69 66 66 Pulse Rate [ From Monitor] Respiratory 28 H 20 22 Rate Blood Pressure O2 Sat by Pulse 97 97 97 Oximetry 11/24/20 11/24/20 11/24/20 10:31 10:45 11:01 Temperature Pulse Rate 69 65 71 Pulse Rate [ From Monitor] Respiratory 25 H 26 H 22 Rate Blood Pressure O2 Sat by Pulse 97 98 97 Oximetry 11/24/20 11/24/20 11/24/20 11:15 11:31 12:05 Temperature 96 F L Pulse Rate 67 65 72 Pulse Rate [ From Monitor] Respiratory 20 20 21 Rate Blood Pressure 104/43 O2 Sat by Pulse 97 98 97 Oximetry Constitutional: appears uncomfortable, other (elderly obese female with mildly increased respiratory effort at rest on MVS) Eyes: non-icteric ENT: oropharynx moist, other (ETT 20 cm NYA) Neck: supple, no lymphadenopathy, no JVD Effort: mildly labored Ascultation: Bilateral: diminished breath sounds, rhonchi Percussion: Bilateral: not dull Cardiovascular: regular rate and rhythm, other (S1,S2) Gastrointestinal: normoactive bowel sounds, soft, non-tender, non-distended (protuberant) Integumentary: normal Extremities: no cyanosis, pink and warm, pulses normal, edema (peripheral), other (Right femoral CVL & A-line) Neurologic: pupils equal and round, unable to assess Psychiatric: other (unable to assess re: AMS) CBC and BMP: 11/24/20 05:30 11/24/20 Unknown ABG, PT/INR, D-dimer: ABG ABG pH 7.508 (7.320-7.450) H 11/24/20 04:00 POC ABG pCO2 31.7 mmHg (32.0-48.0) L 11/24/20 04:00 POC ABG pO2 75.3 mmHg (83-108) L 11/24/20 04:00 POC ABG HCO3 24.6 11/24/20 04:00 ABG O2 Saturation 95.7 (0-100) 11/24/20 04:00 PT/INR, D-dimer PT 22.8 Sec. (12.2-14.9) H 11/24/20 05:30 INR 1.95 (0.87-1.13) H 11/24/20 05:30 D-Dimer 2825.65 ng/mlDDU (0-234) H 11/24/20 05:30 Abnormal lab findings: Abnormal Labs 11/11/20 11/11/2021 13:39 13:39 16:59 WBC 19.5 H RBC 5.93 H Hgb 17.0 H Hct 50.6 H RDW Plt Count 449 H Lymph % (Auto) 12.0 L [place] % (Auto) 7.7 H Lymph # (Auto) [place] # (Auto) 1.5 H Seg Neutrophils % 80.0 H Seg Neuts % (Manual) Lymphocytes % (Manual) Monocytes % (Manual) Seg Neutrophils # 15.6 H Seg Neutrophils # Man Lymphocytes # (Manual) Monocytes # (Manual) PT INR Fibrinogen D-Dimer 1525.92 H Heparin Anti-Xa Level ABG pH POC ABG pCO2 POC ABG pO2 ABG Hemoglobin ABG Oxyhemoglobin ABG Sodium ABG Potassium ABG Chloride ABG Glucose Carboxyhemoglobin Sodium Potassium 3.5 L Chloride 97.3 L Carbon Dioxide BUN 30 H Creatinine 0.5 L Glucose 128 H POC Glucose Hemoglobin A1c Lactic Acid Calcium Phosphorus Magnesium Ferritin Total Bilirubin AST ALT Lactate Dehydrogenase C-Reactive Protein Total Protein Albumin 3.8 L Arterial Blood Glucose Arterial Blood Ionized Calcium Urine WBC (Auto) U Epithel Cells (Auto) Urine Creatinine Coronavirus (PCR) Crossmatch 11/11/20 11/11/20 11/11/20 16:59 17:12 Unknown WBC RBC Hgb Hct RDW Plt Count Lymph % (Auto) [place] % (Auto) Lymph # (Auto) [place] # (Auto) Seg Neutrophils % Seg Neuts % (Manual) Lymphocytes % (Manual) Monocytes % (Manual) Seg Neutrophils # Seg Neutrophils # Man Lymphocytes # (Manual) Monocytes # (Manual) PT INR Fibrinogen D-Dimer Heparin Anti-Xa Level ABG pH 7.501 H POC ABG pCO2 POC ABG pO2 55.0 L ABG Hemoglobin ABG Oxyhemoglobin 89.5 L ABG Sodium ABG Potassium 3.2 L ABG Chloride ABG Glucose 131 H Carboxyhemoglobin Sodium Potassium Chloride Carbon Dioxide BUN Creatinine Glucose 117 H POC Glucose Hemoglobin A1c Lactic Acid Calcium Phosphorus Magnesium Ferritin Total Bilirubin AST ALT Lactate Dehydrogenase 204 H C-Reactive Protein Total Protein Albumin Arterial Blood Glucose 131 H Arterial Blood Ionized Calcium Urine WBC (Auto) U Epithel Cells (Auto) Urine Creatinine Coronavirus (PCR) Positive A Crossmatch 11/12/20 11/12/20 11/12/20 05:07 05:07 05:07 WBC 16.7 H RBC 5.74 H Hgb 16.6 H Hct 50.3 H RDW Plt Count 450 H Lymph % (Auto) 12.1 L [place] % (Auto) 7.5 H Lymph # (Auto) [place] # (Auto) 1.3 H Seg Neutrophils % 77.9 H Seg Neuts % (Manual) Lymphocytes % (Manual) Monocytes % (Manual) Seg Neutrophils # 13.0 H Seg Neutrophils # Man Lymphocytes # (Manual) Monocytes # (Manual) PT INR Fibrinogen D-Dimer Heparin Anti-Xa Level ABG pH POC ABG pCO2 POC ABG pO2 ABG Hemoglobin ABG Oxyhemoglobin ABG Sodium ABG Potassium ABG Chloride ABG Glucose Carboxyhemoglobin Sodium 147 H Potassium Chloride Carbon Dioxide 35 H D BUN 34 H Creatinine Glucose 117 H POC Glucose Hemoglobin A1c 6.6 H Lactic Acid Calcium 11.1 H Phosphorus Magnesium Ferritin Total Bilirubin AST ALT Lactate Dehydrogenase C-Reactive Protein Total Protein Albumin Arterial Blood Glucose Arterial Blood Ionized Calcium Urine WBC (Auto) U Epithel Cells (Auto) Urine Creatinine Coronavirus (PCR) Crossmatch 11/12/20 11/13/20 11/13/20 23:58 01:36 04:00 WBC RBC Hgb Hct RDW Plt Count Lymph % (Auto) [place] % (Auto) Lymph # (Auto) [place] # (Auto) Seg Neutrophils % Seg Neuts % (Manual) Lymphocytes % (Manual) Monocytes % (Manual) Seg Neutrophils # Seg Neutrophils # Man Lymphocytes # (Manual) Monocytes # (Manual) PT INR Fibrinogen D-Dimer Heparin Anti-Xa Level ABG pH POC ABG pCO2 POC ABG pO2 ABG Hemoglobin ABG Oxyhemoglobin ABG Sodium 147.3 H ABG Potassium 3.2 L ABG Chloride 109.0 H ABG Glucose 118 H Carboxyhemoglobin 0.3 L Sodium Potassium 3.1 L Chloride Carbon Dioxide BUN 64 H Creatinine 2.2 H D Glucose 105 H POC Glucose 181 H Hemoglobin A1c Lactic Acid Calcium 8.3 L D Phosphorus Magnesium Ferritin Total Bilirubin AST 366 H ALT 316 H Lactate Dehydrogenase C-Reactive Protein Total Protein 5.4 L D Albumin 2.5 L Arterial Blood Glucose 118 H Arterial Blood Ionized Calcium Urine WBC (Auto) U Epithel Cells (Auto) Urine Creatinine Coronavirus (PCR) Crossmatch 11/13/20 11/13/20 11/13/20 05:23 08:22 09:51 WBC 15.9 H RBC Hgb Hct 44.4 H RDW Plt Count Lymph % (Auto) 5.7 L [place] % (Auto) 9.0 H Lymph # (Auto) 0.9 L [place] # (Auto) 1.4 H Seg Neutrophils % 85.3 H Seg Neuts % (Manual) Lymphocytes % (Manual) Monocytes % (Manual) Seg Neutrophils # 13.6 H Seg Neutrophils # Man Lymphocytes # (Manual) Monocytes # (Manual) PT 16.0 H INR 1.23 H Fibrinogen D-Dimer Heparin Anti-Xa Level ABG pH 7.243 L POC ABG pCO2 POC ABG pO2 82.0 L ABG Hemoglobin ABG Oxyhemoglobin 93.5 L ABG Sodium 146.6 H ABG Potassium 2.8 L ABG Chloride 114.0 H ABG Glucose 113 H Carboxyhemoglobin 0.4 L Sodium Potassium Chloride Carbon Dioxide BUN Creatinine Glucose POC Glucose Hemoglobin A1c Lactic Acid Calcium Phosphorus Magnesium Ferritin Total Bilirubin AST ALT Lactate Dehydrogenase C-Reactive Protein Total Protein Albumin Arterial Blood Glucose 113 H Arterial Blood Ionized Calcium Urine WBC (Auto) U Epithel Cells (Auto) Urine Creatinine Coronavirus (PCR) Crossmatch 11/13/20 11/13/20 11/13/20 09:51 09:51 09:51 WBC RBC Hgb Hct RDW Plt Count Lymph % (Auto) [place] % (Auto) Lymph # (Auto) [place] # (Auto) Seg Neutrophils % Seg Neuts % (Manual) Lymphocytes % (Manual) Monocytes % (Manual) Seg Neutrophils # Seg Neutrophils # Man Lymphocytes # (Manual) Monocytes # (Manual) PT INR Fibrinogen D-Dimer 5682.19 H Heparin Anti-Xa Level ABG pH POC ABG pCO2 POC ABG pO2 ABG Hemoglobin ABG Oxyhemoglobin ABG Sodium ABG Potassium ABG Chloride ABG Glucose Carboxyhemoglobin Sodium Potassium Chloride Carbon Dioxide BUN Creatinine Glucose 104 H POC Glucose Hemoglobin A1c Lactic Acid Calcium Phosphorus Magnesium Ferritin 1003.0 H Total Bilirubin AST ALT Lactate Dehydrogenase 1022 H C-Reactive Protein 5.50 H Total Protein Albumin Arterial Blood Glucose Arterial Blood Ionized Calcium Urine WBC (Auto) U Epithel Cells (Auto) Urine Creatinine Coronavirus (PCR) Crossmatch 11/13/20 11/14/20 11/14/20 21:50 00:50 04:25 WBC RBC Hgb Hct RDW Plt Count Lymph % (Auto) [place] % (Auto) Lymph # (Auto) [place] # (Auto) Seg Neutrophils % Seg Neuts % (Manual) Lymphocytes % (Manual) Monocytes % (Manual) Seg Neutrophils # Seg Neutrophils # Man Lymphocytes # (Manual) Monocytes # (Manual) PT INR Fibrinogen D-Dimer Heparin Anti-Xa Level 0.91 H ABG pH 7.215 L POC ABG pCO2 POC ABG pO2 ABG Hemoglobin ABG Oxyhemoglobin ABG Sodium 147.3 H ABG Potassium ABG Chloride 119.0 H ABG Glucose 156 H Carboxyhemoglobin Sodium Potassium Chloride Carbon Dioxide BUN Creatinine Glucose POC Glucose 59 L Hemoglobin A1c Lactic Acid Calcium Phosphorus Magnesium Ferritin Total Bilirubin AST ALT Lactate Dehydrogenase C-Reactive Protein Total Protein Albumin Arterial Blood Glucose 156 H Arterial Blood Ionized Calcium 4.3 L Urine WBC (Auto) U Epithel Cells (Auto) Urine Creatinine Coronavirus (PCR) Crossmatch 11/14/20 11/14/20 11/14/20 04:35 04:35 06:15 WBC RBC Hgb Hct 43.9 H RDW 15.3 H Plt Count Lymph % (Auto) [place] % (Auto) Lymph # (Auto) [place] # (Auto) Seg Neutrophils % Seg Neuts % (Manual) Lymphocytes % (Manual) Monocytes % (Manual) Seg Neutrophils # Seg Neutrophils # Man Lymphocytes # (Manual) Monocytes # (Manual) PT INR Fibrinogen D-Dimer Heparin Anti-Xa Level ABG pH POC ABG pCO2 POC ABG pO2 ABG Hemoglobin ABG Oxyhemoglobin ABG Sodium ABG Potassium ABG Chloride ABG Glucose Carboxyhemoglobin Sodium 151 H D Potassium Chloride 116.8 H Carbon Dioxide 18 L BUN 64 H Creatinine 2.1 H Glucose 148 H POC Glucose Hemoglobin A1c Lactic Acid Calcium 7.3 L Phosphorus Magnesium Ferritin Total Bilirubin AST ALT Lactate Dehydrogenase C-Reactive Protein 38.00 H Total Protein Albumin Arterial Blood Glucose Arterial Blood Ionized Calcium Urine WBC (Auto) > 182.0 H U Epithel Cells (Auto) 24.0 H Urine Creatinine Coronavirus (PCR) Crossmatch 11/14/20 11/14/20 11/14/20 06:15 06:15 12:01 WBC RBC Hgb Hct RDW Plt Count Lymph % (Auto) [place] % (Auto) Lymph # (Auto) [place] # (Auto) Seg Neutrophils % Seg Neuts % (Manual) Lymphocytes % (Manual) Monocytes % (Manual) Seg Neutrophils # Seg Neutrophils # Man Lymphocytes # (Manual) Monocytes # (Manual) PT INR Fibrinogen D-Dimer Heparin Anti-Xa Level 1.16 H ABG pH POC ABG pCO2 POC ABG pO2 ABG Hemoglobin ABG Oxyhemoglobin ABG Sodium ABG Potassium ABG Chloride ABG Glucose Carboxyhemoglobin Sodium Potassium Chloride Carbon Dioxide BUN Creatinine Glucose POC Glucose 107 H Hemoglobin A1c Lactic Acid Calcium Phosphorus Magnesium Ferritin Total Bilirubin AST ALT Lactate Dehydrogenase C-Reactive Protein Total Protein Albumin Arterial Blood Glucose Arterial Blood Ionized Calcium Urine WBC (Auto) U Epithel Cells (Auto) Urine Creatinine 80.2 H Coronavirus (PCR) Crossmatch 11/14/20 11/14/20 11/14/20 17:18 23:00 23:25 WBC RBC Hgb Hct RDW Plt Count Lymph % (Auto) [place] % (Auto) Lymph # (Auto) [place] # (Auto) Seg Neutrophils % Seg Neuts % (Manual) Lymphocytes % (Manual) Monocytes % (Manual) Seg Neutrophils # Seg Neutrophils # Man Lymphocytes # (Manual) Monocytes # (Manual) PT INR Fibrinogen D-Dimer Heparin Anti-Xa Level 0.96 H ABG pH POC ABG pCO2 POC ABG pO2 ABG Hemoglobin ABG Oxyhemoglobin ABG Sodium ABG Potassium ABG Chloride ABG Glucose Carboxyhemoglobin Sodium Potassium Chloride Carbon Dioxide BUN Creatinine Glucose POC Glucose 173 H 158 H Hemoglobin A1c Lactic Acid Calcium Phosphorus Magnesium Ferritin Total Bilirubin AST ALT Lactate Dehydrogenase C-Reactive Protein Total Protein Albumin Arterial Blood Glucose Arterial Blood Ionized Calcium Urine WBC (Auto) U Epithel Cells (Auto) Urine Creatinine Coronavirus (PCR) Crossmatch 11/15/20 11/15/20 11/15/20 01:45 04:57 04:57 WBC RBC Hgb Hct RDW 16.2 H Plt Count Lymph % (Auto) [place] % (Auto) Lymph # (Auto) [place] # (Auto) Seg Neutrophils % Seg Neuts % (Manual) Lymphocytes % (Manual) Monocytes % (Manual) Seg Neutrophils # Seg Neutrophils # Man Lymphocytes # (Manual) Monocytes # (Manual) PT INR Fibrinogen D-Dimer Heparin Anti-Xa Level ABG pH 7.246 L POC ABG pCO2 28.4 L POC ABG pO2 ABG Hemoglobin ABG Oxyhemoglobin ABG Sodium ABG Potassium ABG Chloride 116.0 H ABG Glucose 164 H Carboxyhemoglobin Sodium 147 H Potassium Chloride 114.0 H Carbon Dioxide 16 L BUN 68 H Creatinine 2.4 H Glucose 148 H POC Glucose Hemoglobin A1c Lactic Acid Calcium 7.3 L Phosphorus Magnesium Ferritin Total Bilirubin AST 395 H ALT 396 H Lactate Dehydrogenase 596 H C-Reactive Protein 34.50 H Total Protein 5.1 L Albumin 2.1 L Arterial Blood Glucose 164 H Arterial Blood Ionized Calcium 4.3 L Urine WBC (Auto) U Epithel Cells (Auto) Urine Creatinine Coronavirus (PCR) Crossmatch 11/15/20 11/15/20 11/15/20 04:57 04:57 05:20 WBC RBC Hgb Hct RDW Plt Count Lymph % (Auto) [place] % (Auto) Lymph # (Auto) [place] # (Auto) Seg Neutrophils % Seg Neuts % (Manual) Lymphocytes % (Manual) Monocytes % (Manual) Seg Neutrophils # Seg Neutrophils # Man Lymphocytes # (Manual) Monocytes # (Manual) PT INR Fibrinogen D-Dimer 3313.42 H Heparin Anti-Xa Level 0.81 H ABG pH POC ABG pCO2 POC ABG pO2 ABG Hemoglobin ABG Oxyhemoglobin ABG Sodium ABG Potassium ABG Chloride ABG Glucose Carboxyhemoglobin Sodium Potassium Chloride Carbon Dioxide BUN Creatinine Glucose POC Glucose 124 H Hemoglobin A1c Lactic Acid 3.00 H* Calcium Phosphorus Magnesium Ferritin Total Bilirubin AST ALT Lactate Dehydrogenase C-Reactive Protein Total Protein Albumin Arterial Blood Glucose Arterial Blood Ionized Calcium Urine WBC (Auto) U Epithel Cells (Auto) Urine Creatinine Coronavirus (PCR) Crossmatch 11/15/20 11/15/20 11/15/20 08:26 08:26 11:34 WBC RBC Hgb Hct RDW Plt Count Lymph % (Auto) [place] % (Auto) Lymph # (Auto) [place] # (Auto) Seg Neutrophils % Seg Neuts % (Manual) Lymphocytes % (Manual) Monocytes % (Manual) Seg Neutrophils # Seg Neutrophils # Man Lymphocytes # (Manual) Monocytes # (Manual) PT INR Fibrinogen D-Dimer Heparin Anti-Xa Level ABG pH POC ABG pCO2 POC ABG pO2 ABG Hemoglobin ABG Oxyhemoglobin ABG Sodium ABG Potassium ABG Chloride ABG Glucose Carboxyhemoglobin Sodium Potassium Chloride Carbon Dioxide BUN Creatinine Glucose POC Glucose 113 H Hemoglobin A1c Lactic Acid 2.60 H* Calcium Phosphorus Magnesium Ferritin 452.8 H Total Bilirubin AST ALT Lactate Dehydrogenase C-Reactive Protein Total Protein Albumin Arterial Blood Glucose Arterial Blood Ionized Calcium Urine WBC (Auto) U Epithel Cells (Auto) Urine Creatinine Coronavirus (PCR) Crossmatch 11/15/20 11/15/20 11/16/20 16:43 23:16 03:39 WBC RBC Hgb Hct RDW Plt Count Lymph % (Auto) [place] % (Auto) Lymph # (Auto) [place] # (Auto) Seg Neutrophils % Seg Neuts % (Manual) Lymphocytes % (Manual) Monocytes % (Manual) Seg Neutrophils # Seg Neutrophils # Man Lymphocytes # (Manual) Monocytes # (Manual) PT INR Fibrinogen D-Dimer Heparin Anti-Xa Level ABG pH 7.261 L POC ABG pCO2 31.2 L POC ABG pO2 117.3 H ABG Hemoglobin ABG Oxyhemoglobin ABG Sodium 135.8 L ABG Potassium ABG Chloride 112.0 H ABG Glucose 148 H Carboxyhemoglobin 0.4 L Sodium Potassium Chloride Carbon Dioxide BUN Creatinine Glucose POC Glucose 107 H 113 H Hemoglobin A1c Lactic Acid Calcium Phosphorus Magnesium Ferritin Total Bilirubin AST ALT Lactate Dehydrogenase C-Reactive Protein Total Protein Albumin Arterial Blood Glucose 148 H Arterial Blood Ionized Calcium 4.1 L Urine WBC (Auto) U Epithel Cells (Auto) Urine Creatinine Coronavirus (PCR) Crossmatch 11/16/20 11/16/20 11/16/20 04:51 11:28 17:15 WBC RBC Hgb Hct RDW Plt Count Lymph % (Auto) [place] % (Auto) Lymph # (Auto) [place] # (Auto) Seg Neutrophils % Seg Neuts % (Manual) Lymphocytes % (Manual) Monocytes % (Manual) Seg Neutrophils # Seg Neutrophils # Man Lymphocytes # (Manual) Monocytes # (Manual) PT INR Fibrinogen D-Dimer Heparin Anti-Xa Level ABG pH POC ABG pCO2 POC ABG pO2 ABG Hemoglobin ABG Oxyhemoglobin ABG Sodium ABG Potassium ABG Chloride ABG Glucose Carboxyhemoglobin Sodium Potassium Chloride Carbon Dioxide BUN Creatinine Glucose POC Glucose 119 H 144 H 139 H Hemoglobin A1c Lactic Acid Calcium Phosphorus Magnesium Ferritin Total Bilirubin AST ALT Lactate Dehydrogenase C-Reactive Protein Total Protein Albumin Arterial Blood Glucose Arterial Blood Ionized Calcium Urine WBC (Auto) U Epithel Cells (Auto) Urine Creatinine Coronavirus (PCR) Crossmatch 11/16/20 11/16/20 11/16/20 23:50 Unknown Unknown WBC RBC Hgb Hct RDW Plt Count Lymph % (Auto) [place] % (Auto) Lymph # (Auto) [place] # (Auto) Seg Neutrophils % Seg Neuts % (Manual) Lymphocytes % (Manual) Monocytes % (Manual) Seg Neutrophils # Seg Neutrophils # Man Lymphocytes # (Manual) Monocytes # (Manual) PT INR Fibrinogen D-Dimer Heparin Anti-Xa Level ABG pH POC ABG pCO2 POC ABG pO2 ABG Hemoglobin ABG Oxyhemoglobin ABG Sodium ABG Potassium ABG Chloride ABG Glucose Carboxyhemoglobin Sodium Potassium 3.5 L Chloride 109.7 H Carbon Dioxide 15 L BUN 65 H Creatinine 2.2 H Glucose 174 H POC Glucose 132 H Hemoglobin A1c Lactic Acid 2.10 H* Calcium 6.1 L D Phosphorus Magnesium Ferritin Total Bilirubin AST 171 H ALT 268 H Lactate Dehydrogenase C-Reactive Protein Total Protein 4.3 L Albumin 1.9 L Arterial Blood Glucose Arterial Blood Ionized Calcium Urine WBC (Auto) U Epithel Cells (Auto) Urine Creatinine Coronavirus (PCR) Crossmatch 11/17/20 11/17/20 11/17/20 03:14 04:00 05:09 WBC RBC Hgb Hct RDW Plt Count 123 L Lymph % (Auto) [place] % (Auto) Lymph # (Auto) [place] # (Auto) Seg Neutrophils % Seg Neuts % (Manual) Lymphocytes % (Manual) Monocytes % (Manual) Seg Neutrophils # Seg Neutrophils # Man Lymphocytes # (Manual) Monocytes # (Manual) PT INR Fibrinogen D-Dimer Heparin Anti-Xa Level ABG pH 7.498 H POC ABG pCO2 27.2 L POC ABG pO2 110.6 H ABG Hemoglobin 11.6 L ABG Oxyhemoglobin ABG Sodium 135.4 L ABG Potassium ABG Chloride ABG Glucose 131 H Carboxyhemoglobin Sodium Potassium Chloride Carbon Dioxide BUN Creatinine Glucose POC Glucose 119 H Hemoglobin A1c Lactic Acid Calcium Phosphorus Magnesium Ferritin Total Bilirubin AST ALT Lactate Dehydrogenase C-Reactive Protein Total Protein Albumin Arterial Blood Glucose 131 H Arterial Blood Ionized Calcium 3.7 L Urine WBC (Auto) U Epithel Cells (Auto) Urine Creatinine Coronavirus (PCR) Crossmatch 11/17/20 11/17/20 11/17/20 09:59 09:59 09:59 WBC RBC Hgb Hct RDW Plt Count Lymph % (Auto) [place] % (Auto) Lymph # (Auto) [place] # (Auto) Seg Neutrophils % Seg Neuts % (Manual) Lymphocytes % (Manual) Monocytes % (Manual) Seg Neutrophils # Seg Neutrophils # Man Lymphocytes # (Manual) Monocytes # (Manual) PT INR Fibrinogen D-Dimer 1401.08 H Heparin Anti-Xa Level ABG pH POC ABG pCO2 POC ABG pO2 ABG Hemoglobin ABG Oxyhemoglobin ABG Sodium ABG Potassium ABG Chloride ABG Glucose Carboxyhemoglobin Sodium Potassium Chloride Carbon Dioxide BUN Creatinine Glucose 127 H POC Glucose Hemoglobin A1c Lactic Acid Calcium Phosphorus Magnesium Ferritin 224.1 H Total Bilirubin AST ALT Lactate Dehydrogenase 515 H C-Reactive Protein 4.80 H Total Protein Albumin Arterial Blood Glucose Arterial Blood Ionized Calcium Urine WBC (Auto) U Epithel Cells (Auto) Urine Creatinine Coronavirus (PCR) Crossmatch 11/17/20 11/17/20 11/17/20 11:28 16:26 18:00 WBC RBC Hgb Hct RDW Plt Count Lymph % (Auto) [place] % (Auto) Lymph # (Auto) [place] # (Auto) Seg Neutrophils % Seg Neuts % (Manual) Lymphocytes % (Manual) Monocytes % (Manual) Seg Neutrophils # Seg Neutrophils # Man Lymphocytes # (Manual) Monocytes # (Manual) PT INR Fibrinogen D-Dimer Heparin Anti-Xa Level 0.10 L ABG pH POC ABG pCO2 POC ABG pO2 ABG Hemoglobin ABG Oxyhemoglobin ABG Sodium ABG Potassium ABG Chloride ABG Glucose Carboxyhemoglobin Sodium Potassium Chloride Carbon Dioxide BUN Creatinine Glucose POC Glucose 114 H 121 H Hemoglobin A1c Lactic Acid Calcium Phosphorus Magnesium Ferritin Total Bilirubin AST ALT Lactate Dehydrogenase C-Reactive Protein Total Protein Albumin Arterial Blood Glucose Arterial Blood Ionized Calcium Urine WBC (Auto) U Epithel Cells (Auto) Urine Creatinine Coronavirus (PCR) Crossmatch 11/17/20 11/17/20 11/18/20 21:37 Unknown 02:11 WBC RBC Hgb Hct RDW Plt Count Lymph % (Auto) [place] % (Auto) Lymph # (Auto) [place] # (Auto) Seg Neutrophils % Seg Neuts % (Manual) Lymphocytes % (Manual) Monocytes % (Manual) Seg Neutrophils # Seg Neutrophils # Man Lymphocytes # (Manual) Monocytes # (Manual) PT INR Fibrinogen D-Dimer Heparin Anti-Xa Level ABG pH POC ABG pCO2 POC ABG pO2 ABG Hemoglobin ABG Oxyhemoglobin ABG Sodium ABG Potassium ABG Chloride ABG Glucose Carboxyhemoglobin Sodium 146 H D Potassium 3.5 L Chloride Carbon Dioxide BUN 67 H 62 H Creatinine 1.8 H 1.7 H Glucose 129 H 109 H POC Glucose 118 H Hemoglobin A1c Lactic Acid Calcium 6.5 L 5.7 L* Phosphorus Magnesium 1.20 L Ferritin Total Bilirubin AST ALT Lactate Dehydrogenase C-Reactive Protein Total Protein Albumin Arterial Blood Glucose Arterial Blood Ionized Calcium Urine WBC (Auto) U Epithel Cells (Auto) Urine Creatinine Coronavirus (PCR) Crossmatch 11/18/20 11/18/20 11/18/20 02:38 04:44 17:09 WBC RBC Hgb Hct RDW Plt Count Lymph % (Auto) [place] % (Auto) Lymph # (Auto) [place] # (Auto) Seg Neutrophils % Seg Neuts % (Manual) Lymphocytes % (Manual) Monocytes % (Manual) Seg Neutrophils # Seg Neutrophils # Man Lymphocytes # (Manual) Monocytes # (Manual) PT INR Fibrinogen D-Dimer Heparin Anti-Xa Level ABG pH 7.565 H POC ABG pCO2 30.4 L POC ABG pO2 72.0 L ABG Hemoglobin 11.4 L ABG Oxyhemoglobin ABG Sodium 134.1 L ABG Potassium 2.9 L ABG Chloride ABG Glucose 110 H Carboxyhemoglobin 0.3 L Sodium Potassium Chloride Carbon Dioxide BUN Creatinine Glucose POC Glucose 109 H 125 H Hemoglobin A1c Lactic Acid Calcium Phosphorus Magnesium Ferritin Total Bilirubin AST ALT Lactate Dehydrogenase C-Reactive Protein Total Protein Albumin Arterial Blood Glucose 110 H Arterial Blood Ionized Calcium 3.4 L Urine WBC (Auto) U Epithel Cells (Auto) Urine Creatinine Coronavirus (PCR) Crossmatch 11/19/20 11/19/20 11/19/20 03:19 04:00 04:00 WBC 14.3 H RBC 3.61 L Hgb Hct RDW Plt Count Lymph % (Auto) [place] % (Auto) Lymph # (Auto) [place] # (Auto) Seg Neutrophils % Seg Neuts % (Manual) 77.0 H Lymphocytes % (Manual) 13.0 L Monocytes % (Manual) 10.0 H Seg Neutrophils # Seg Neutrophils # Man 11.0 H Lymphocytes # (Manual) Monocytes # (Manual) 1.4 H PT INR Fibrinogen D-Dimer Heparin Anti-Xa Level ABG pH 7.577 H POC ABG pCO2 28.0 L POC ABG pO2 57.4 L ABG Hemoglobin 10.6 L ABG Oxyhemoglobin 90.3 L ABG Sodium ABG Potassium 2.8 L ABG Chloride ABG Glucose 102 H Carboxyhemoglobin 0.3 L Sodium Potassium 2.9 L* D Chloride Carbon Dioxide 31 H BUN 51 H Creatinine Glucose POC Glucose Hemoglobin A1c Lactic Acid Calcium 6.7 L D Phosphorus 1.90 L Magnesium Ferritin Total Bilirubin AST ALT Lactate Dehydrogenase 634 H C-Reactive Protein 1.40 H Total Protein Albumin Arterial Blood Glucose 102 H Arterial Blood Ionized Calcium 3.7 L Urine WBC (Auto) U Epithel Cells (Auto) Urine Creatinine Coronavirus (PCR) Crossmatch 11/19/20 11/19/20 11/19/20 04:00 10:33 14:10 WBC RBC Hgb 8.9 L Hct 27.0 L RDW Plt Count Lymph % (Auto) [place] % (Auto) Lymph # (Auto) [place] # (Auto) Seg Neutrophils % Seg Neuts % (Manual) Lymphocytes % (Manual) Monocytes % (Manual) Seg Neutrophils # Seg Neutrophils # Man Lymphocytes # (Manual) Monocytes # (Manual) PT INR Fibrinogen D-Dimer 1808.23 H Heparin Anti-Xa Level ABG pH POC ABG pCO2 POC ABG pO2 ABG Hemoglobin ABG Oxyhemoglobin ABG Sodium ABG Potassium ABG Chloride ABG Glucose Carboxyhemoglobin Sodium Potassium Chloride Carbon Dioxide BUN Creatinine Glucose POC Glucose 109 H Hemoglobin A1c Lactic Acid Calcium Phosphorus Magnesium Ferritin Total Bilirubin AST ALT Lactate Dehydrogenase C-Reactive Protein Total Protein Albumin Arterial Blood Glucose Arterial Blood Ionized Calcium Urine WBC (Auto) U Epithel Cells (Auto) Urine Creatinine Coronavirus (PCR) Crossmatch 11/19/20 11/19/20 11/19/20 17:28 19:45 19:45 WBC 22.7 H RBC 3.14 L Hgb 9.0 L Hct 27.2 L RDW Plt Count Lymph % (Auto) [place] % (Auto) Lymph # (Auto) [place] # (Auto) Seg Neutrophils % Seg Neuts % (Manual) Lymphocytes % (Manual) Monocytes % (Manual) Seg Neutrophils # Seg Neutrophils # Man Lymphocytes # (Manual) Monocytes # (Manual) PT 24.6 H INR 2.18 H Fibrinogen D-Dimer Heparin Anti-Xa Level ABG pH POC ABG pCO2 POC ABG pO2 ABG Hemoglobin ABG Oxyhemoglobin ABG Sodium ABG Potassium ABG Chloride ABG Glucose Carboxyhemoglobin Sodium Potassium Chloride Carbon Dioxide BUN Creatinine Glucose POC Glucose 186 H Hemoglobin A1c Lactic Acid Calcium Phosphorus Magnesium Ferritin Total Bilirubin AST ALT Lactate Dehydrogenase C-Reactive Protein Total Protein Albumin Arterial Blood Glucose Arterial Blood Ionized Calcium Urine WBC (Auto) U Epithel Cells (Auto) Urine Creatinine Coronavirus (PCR) Crossmatch 08/10/21 08/10/21 08/10/21 19:45 19:45 19:45 WBC RBC Hgb Hct RDW Plt Count Lymph % (Auto) [place] % (Auto) Lymph # (Auto) [place] # (Auto) Seg Neutrophils % Seg Neuts % (Manual) Lymphocytes % (Manual) Monocytes % (Manual) Seg Neutrophils # Seg Neutrophils # Man Lymphocytes # (Manual) Monocytes # (Manual) PT INR Fibrinogen D-Dimer Heparin Anti-Xa Level ABG pH POC ABG pCO2 POC ABG pO2 ABG Hemoglobin ABG Oxyhemoglobin ABG Sodium ABG Potassium ABG Chloride ABG Glucose Carboxyhemoglobin Sodium Potassium Chloride Carbon Dioxide BUN 58 H Creatinine Glucose 192 H POC Glucose Hemoglobin A1c Lactic Acid 2.20 H* Calcium 6.9 L Phosphorus Magnesium Ferritin Total Bilirubin AST 119 H ALT 143 H Lactate Dehydrogenase C-Reactive Protein Total Protein 4.0 L Albumin 2.3 L Arterial Blood Glucose Arterial Blood Ionized Calcium Urine WBC (Auto) U Epithel Cells (Auto) Urine Creatinine Coronavirus (PCR) Crossmatch See Detail 11/19/20 11/19/20 11/19/20 22:00 23:25 23:45 WBC RBC Hgb Hct RDW Plt Count Lymph % (Auto) [place] % (Auto) Lymph # (Auto) [place] # (Auto) Seg Neutrophils % Seg Neuts % (Manual) Lymphocytes % (Manual) Monocytes % (Manual) Seg Neutrophils # Seg Neutrophils # Man Lymphocytes # (Manual) Monocytes # (Manual) PT INR Fibrinogen D-Dimer Heparin Anti-Xa Level > 2.00 H ABG pH POC ABG pCO2 POC ABG pO2 ABG Hemoglobin ABG Oxyhemoglobin ABG Sodium ABG Potassium ABG Chloride ABG Glucose Carboxyhemoglobin Sodium Potassium Chloride Carbon Dioxide BUN Creatinine Glucose POC Glucose 155 H Hemoglobin A1c Lactic Acid Calcium Phosphorus Magnesium Ferritin Total Bilirubin AST ALT Lactate Dehydrogenase C-Reactive Protein Total Protein Albumin Arterial Blood Glucose Arterial Blood Ionized Calcium Urine WBC (Auto) > 182.0 H U Epithel Cells (Auto) Urine Creatinine Coronavirus (PCR) Crossmatch 11/20/20 11/20/20 11/20/20 04:00 04:09 04:09 WBC 20.9 H RBC 3.48 L Hgb 10.0 L Hct 30.1 L RDW Plt Count Lymph % (Auto) [place] % (Auto) Lymph # (Auto) [place] # (Auto) Seg Neutrophils % Seg Neuts % (Manual) 77.0 H Lymphocytes % (Manual) 3.0 L Monocytes % (Manual) Seg Neutrophils # Seg Neutrophils # Man 16.1 H Lymphocytes # (Manual) 0.6 L Monocytes # (Manual) PT INR Fibrinogen D-Dimer Heparin Anti-Xa Level ABG pH 7.595 H POC ABG pCO2 25.2 L POC ABG pO2 69.0 L ABG Hemoglobin 9.8 L ABG Oxyhemoglobin ABG Sodium ABG Potassium ABG Chloride 110.0 H ABG Glucose 178 H Carboxyhemoglobin 0.2 L Sodium 147 H Potassium Chloride 107.8 H Carbon Dioxide BUN 63 H Creatinine 1.3 H Glucose 151 H POC Glucose Hemoglobin A1c Lactic Acid Calcium 6.3 L Phosphorus Magnesium Ferritin Total Bilirubin AST ALT Lactate Dehydrogenase C-Reactive Protein Total Protein Albumin Arterial Blood Glucose 178 H Arterial Blood Ionized Calcium 3.7 L Urine WBC (Auto) U Epithel Cells (Auto) Urine Creatinine Coronavirus (PCR) Crossmatch 11/20/20 11/20/20 11/20/20 05:13 09:57 09:57 WBC RBC Hgb 9.4 L Hct 28.5 L RDW Plt Count Lymph % (Auto) [place] % (Auto) Lymph # (Auto) [place] # (Auto) Seg Neutrophils % Seg Neuts % (Manual) Lymphocytes % (Manual) Monocytes % (Manual) Seg Neutrophils # Seg Neutrophils # Man Lymphocytes # (Manual) Monocytes # (Manual) PT INR Fibrinogen D-Dimer Heparin Anti-Xa Level ABG pH POC ABG pCO2 POC ABG pO2 ABG Hemoglobin ABG Oxyhemoglobin ABG Sodium ABG Potassium ABG Chloride ABG Glucose Carboxyhemoglobin Sodium Potassium Chloride Carbon Dioxide BUN Creatinine Glucose POC Glucose 126 H Hemoglobin A1c Lactic Acid Calcium Phosphorus 5.40 H D Magnesium Ferritin Total Bilirubin AST ALT Lactate Dehydrogenase C-Reactive Protein Total Protein Albumin Arterial Blood Glucose Arterial Blood Ionized Calcium Urine WBC (Auto) U Epithel Cells (Auto) Urine Creatinine Coronavirus (PCR) Crossmatch 11/20/20 11/20/20 11/20/20 12:07 17:52 20:48 WBC RBC Hgb Hct RDW Plt Count Lymph % (Auto) [place] % (Auto) Lymph # (Auto) [place] # (Auto) Seg Neutrophils % Seg Neuts % (Manual) Lymphocytes % (Manual) Monocytes % (Manual) Seg Neutrophils # Seg Neutrophils # Man Lymphocytes # (Manual) Monocytes # (Manual) PT INR Fibrinogen D-Dimer Heparin Anti-Xa Level ABG pH 7.468 H POC ABG pCO2 25.5 L POC ABG pO2 ABG Hemoglobin 7.6 L ABG Oxyhemoglobin ABG Sodium ABG Potassium ABG Chloride 111.0 H ABG Glucose 190 H Carboxyhemoglobin Sodium Potassium Chloride Carbon Dioxide BUN Creatinine Glucose POC Glucose 121 H 154 H Hemoglobin A1c Lactic Acid Calcium Phosphorus Magnesium Ferritin Total Bilirubin AST ALT Lactate Dehydrogenase C-Reactive Protein Total Protein Albumin Arterial Blood Glucose 190 H Arterial Blood Ionized Calcium 3.8 L Urine WBC (Auto) U Epithel Cells (Auto) Urine Creatinine Coronavirus (PCR) Crossmatch 11/20/20 11/21/20 11/21/20 23:01 00:27 00:27 WBC RBC Hgb 7.0 L Hct 21.9 L D RDW Plt Count Lymph % (Auto) [place] % (Auto) Lymph # (Auto) [place] # (Auto) Seg Neutrophils % Seg Neuts % (Manual) Lymphocytes % (Manual) Monocytes % (Manual) Seg Neutrophils # Seg Neutrophils # Man Lymphocytes # (Manual) Monocytes # (Manual) PT INR Fibrinogen D-Dimer Heparin Anti-Xa Level 1.46 H ABG pH POC ABG pCO2 POC ABG pO2 ABG Hemoglobin ABG Oxyhemoglobin ABG Sodium ABG Potassium ABG Chloride ABG Glucose Carboxyhemoglobin Sodium Potassium Chloride Carbon Dioxide BUN Creatinine Glucose POC Glucose 144 H Hemoglobin A1c Lactic Acid Calcium Phosphorus Magnesium Ferritin Total Bilirubin AST ALT Lactate Dehydrogenase C-Reactive Protein Total Protein Albumin Arterial Blood Glucose Arterial Blood Ionized Calcium Urine WBC (Auto) U Epithel Cells (Auto) Urine Creatinine Coronavirus (PCR) Crossmatch 11/21/20 11/21/20 11/21/20 09:53 09:53 09:53 WBC RBC Hgb 6.1 L Hct 20.2 L RDW Plt Count Lymph % (Auto) [place] % (Auto) Lymph # (Auto) [place] # (Auto) Seg Neutrophils % Seg Neuts % (Manual) Lymphocytes % (Manual) Monocytes % (Manual) Seg Neutrophils # Seg Neutrophils # Man Lymphocytes # (Manual) Monocytes # (Manual) PT 116.7 H INR 17.11 H* Fibrinogen D-Dimer 1623.09 H Heparin Anti-Xa Level ABG pH POC ABG pCO2 POC ABG pO2 ABG Hemoglobin ABG Oxyhemoglobin ABG Sodium ABG Potassium ABG Chloride ABG Glucose Carboxyhemoglobin Sodium 146 H Potassium 5.7 H D Chloride 107.6 H Carbon Dioxide 10 L D BUN 83 H Creatinine 1.9 H Glucose 158 H POC Glucose Hemoglobin A1c Lactic Acid Calcium 6.1 L Phosphorus Magnesium Ferritin Total Bilirubin AST ALT Lactate Dehydrogenase 1131 H C-Reactive Protein 2.00 H Total Protein Albumin Arterial Blood Glucose Arterial Blood Ionized Calcium Urine WBC (Auto) U Epithel Cells (Auto) Urine Creatinine Coronavirus (PCR) Crossmatch 11/21/20 11/21/20 11/21/20 11:12 11:21 11:28 WBC RBC Hgb Hct RDW Plt Count Lymph % (Auto) [place] % (Auto) Lymph # (Auto) [place] # (Auto) Seg Neutrophils % Seg Neuts % (Manual) Lymphocytes % (Manual) Monocytes % (Manual) Seg Neutrophils # Seg Neutrophils # Man Lymphocytes # (Manual) Monocytes # (Manual) PT INR Fibrinogen 208 L D-Dimer Heparin Anti-Xa Level 1.24 H ABG pH 7.056 L POC ABG pCO2 POC ABG pO2 ABG Hemoglobin 4.4 L ABG Oxyhemoglobin 89.8 L ABG Sodium ABG Potassium ABG Chloride 111.0 H ABG Glucose 573 H Carboxyhemoglobin Sodium Potassium Chloride Carbon Dioxide BUN Creatinine Glucose POC Glucose 49 L Hemoglobin A1c Lactic Acid Calcium Phosphorus Magnesium Ferritin Total Bilirubin AST ALT Lactate Dehydrogenase C-Reactive Protein Total Protein Albumin Arterial Blood Glucose 573 H Arterial Blood Ionized Calcium Urine WBC (Auto) U Epithel Cells (Auto) Urine Creatinine Coronavirus (PCR) Crossmatch 11/21/20 11/21/20 11/21/20 11:39 13:35 17:42 WBC RBC Hgb Hct RDW Plt Count Lymph % (Auto) [place] % (Auto) Lymph # (Auto) [place] # (Auto) Seg Neutrophils % Seg Neuts % (Manual) Lymphocytes % (Manual) Monocytes % (Manual) Seg Neutrophils # Seg Neutrophils # Man Lymphocytes # (Manual) Monocytes # (Manual) PT INR Fibrinogen D-Dimer Heparin Anti-Xa Level ABG pH 7.213 L POC ABG pCO2 29.3 L POC ABG pO2 79.3 L ABG Hemoglobin ABG Oxyhemoglobin 93.5 L ABG Sodium ABG Potassium ABG Chloride 110.0 H ABG Glucose 297 H Carboxyhemoglobin Sodium Potassium Chloride Carbon Dioxide BUN Creatinine Glucose POC Glucose 43 L 111 H Hemoglobin A1c Lactic Acid Calcium Phosphorus Magnesium Ferritin Total Bilirubin AST ALT Lactate Dehydrogenase C-Reactive Protein Total Protein Albumin Arterial Blood Glucose 297 H Arterial Blood Ionized Calcium 4.1 L Urine WBC (Auto) U Epithel Cells (Auto) Urine Creatinine Coronavirus (PCR) Crossmatch 11/21/20 11/22/20 11/22/20 20:15 02:00 05:00 WBC RBC Hgb Hct RDW Plt Count Lymph % (Auto) [place] % (Auto) Lymph # (Auto) [place] # (Auto) Seg Neutrophils % Seg Neuts % (Manual) Lymphocytes % (Manual) Monocytes % (Manual) Seg Neutrophils # Seg Neutrophils # Man Lymphocytes # (Manual) Monocytes # (Manual) PT 22.6 H 20.8 H INR 1.93 H 1.73 H Fibrinogen 200 L D-Dimer 2595.90 H Heparin Anti-Xa Level ABG pH POC ABG pCO2 POC ABG pO2 ABG Hemoglobin ABG Oxyhemoglobin ABG Sodium ABG Potassium ABG Chloride ABG Glucose Carboxyhemoglobin Sodium Potassium Chloride Carbon Dioxide BUN Creatinine Glucose POC Glucose Hemoglobin A1c Lactic Acid 5.00 H* Calcium Phosphorus Magnesium Ferritin Total Bilirubin AST ALT Lactate Dehydrogenase C-Reactive Protein Total Protein Albumin Arterial Blood Glucose Arterial Blood Ionized Calcium Urine WBC (Auto) U Epithel Cells (Auto) Urine Creatinine Coronavirus (PCR) Crossmatch 11/22/20 11/22/20 11/22/20 05:24 11:00 13:00 WBC 21.5 H RBC Hgb Hct RDW Plt Count 37 L Lymph % (Auto) [place] % (Auto) Lymph # (Auto) [place] # (Auto) Seg Neutrophils % Seg Neuts % (Manual) Lymphocytes % (Manual) Monocytes % (Manual) Seg Neutrophils # Seg Neutrophils # Man Lymphocytes # (Manual) Monocytes # (Manual) PT INR Fibrinogen D-Dimer Heparin Anti-Xa Level ABG pH 7.545 H POC ABG pCO2 29.3 L POC ABG pO2 ABG Hemoglobin 10.3 L ABG Oxyhemoglobin ABG Sodium ABG Potassium 3.0 L ABG Chloride 111.0 H ABG Glucose 107 H Carboxyhemoglobin 0.1 L Sodium Potassium Chloride Carbon Dioxide BUN Creatinine Glucose POC Glucose 36 L Hemoglobin A1c Lactic Acid Calcium Phosphorus Magnesium Ferritin Total Bilirubin AST ALT Lactate Dehydrogenase C-Reactive Protein Total Protein Albumin Arterial Blood Glucose 107 H Arterial Blood Ionized Calcium 3.3 L Urine WBC (Auto) U Epithel Cells (Auto) Urine Creatinine Coronavirus (PCR) Crossmatch 11/22/20 11/22/2011/22/21 17:37 23:00 Unknown WBC RBC Hgb Hct RDW Plt Count Lymph % (Auto) [place] % (Auto) Lymph # (Auto) [place] # (Auto) Seg Neutrophils % Seg Neuts % (Manual) Lymphocytes % (Manual) Monocytes % (Manual) Seg Neutrophils # Seg Neutrophils # Man Lymphocytes # (Manual) Monocytes # (Manual) PT INR Fibrinogen D-Dimer Heparin Anti-Xa Level ABG pH POC ABG pCO2 POC ABG pO2 ABG Hemoglobin ABG Oxyhemoglobin ABG Sodium ABG Potassium ABG Chloride ABG Glucose Carboxyhemoglobin Sodium Potassium 3.0 L Chloride Carbon Dioxide BUN Creatinine Glucose POC Glucose 112 H Hemoglobin A1c Lactic Acid Calcium Phosphorus Magnesium Ferritin Total Bilirubin AST ALT Lactate Dehydrogenase C-Reactive Protein 1.90 H Total Protein Albumin Arterial Blood Glucose Arterial Blood Ionized Calcium Urine WBC (Auto) U Epithel Cells (Auto) Urine Creatinine Coronavirus (PCR) Crossmatch 11/22/20 11/22/20 11/22/20 Unknown Unknown Unknown WBC 16.4 H RBC Hgb Hct RDW 15.4 H Plt Count 40 L Lymph % (Auto) [place] % (Auto) Lymph # (Auto) [place] # (Auto) Seg Neutrophils % Seg Neuts % (Manual) Lymphocytes % (Manual) Monocytes % (Manual) Seg Neutrophils # Seg Neutrophils # Man Lymphocytes # (Manual) Monocytes # (Manual) PT INR Fibrinogen D-Dimer Heparin Anti-Xa Level ABG pH POC ABG pCO2 POC ABG pO2 ABG Hemoglobin ABG Oxyhemoglobin ABG Sodium ABG Potassium ABG Chloride ABG Glucose Carboxyhemoglobin Sodium 152 H Potassium 2.8 L* D Chloride 108.9 H Carbon Dioxide BUN 76 H Creatinine 1.7 H Glucose POC Glucose Hemoglobin A1c Lactic Acid Calcium 6.8 L Phosphorus Magnesium 1.50 L Ferritin 1559.0 H Total Bilirubin 1.50 H AST 4887 H ALT 1552 H Lactate Dehydrogenase C-Reactive Protein Total Protein 3.8 L Albumin 2.2 L Arterial Blood Glucose Arterial Blood Ionized Calcium Urine WBC (Auto) U Epithel Cells (Auto) Urine Creatinine Coronavirus (PCR) Crossmatch 11/22/20 11/22/20 11/23/20 Unknown Unknown 04:00 WBC 15.2 H RBC 3.27 L Hgb 9.6 L Hct 28.8 L RDW 15.7 H Plt Count 38 L Lymph % (Auto) [place] % (Auto) Lymph # (Auto) [place] # (Auto) Seg Neutrophils % Seg Neuts % (Manual) Lymphocytes % (Manual) Monocytes % (Manual) Seg Neutrophils # Seg Neutrophils # Man Lymphocytes # (Manual) Monocytes # (Manual) PT INR Fibrinogen D-Dimer Heparin Anti-Xa Level ABG pH POC ABG pCO2 POC ABG pO2 ABG Hemoglobin ABG Oxyhemoglobin ABG Sodium ABG Potassium ABG Chloride ABG Glucose Carboxyhemoglobin Sodium 152 H Potassium 2.8 L* Chloride 107.5 H Carbon Dioxide 32 H BUN 75 H Creatinine 1.7 H Glucose 130 H POC Glucose Hemoglobin A1c Lactic Acid 5.20 H* Calcium 6.5 L Phosphorus Magnesium Ferritin Total Bilirubin 1.40 H AST 4513 H ALT 1512 H Lactate Dehydrogenase C-Reactive Protein Total Protein 3.4 L Albumin 2.1 L Arterial Blood Glucose Arterial Blood Ionized Calcium Urine WBC (Auto) U Epithel Cells (Auto) Urine Creatinine Coronavirus (PCR) Crossmatch 11/23/20 11/23/20 11/23/20 04:00 04:00 05:04 WBC RBC Hgb Hct RDW Plt Count Lymph % (Auto) [place] % (Auto) Lymph # (Auto) [place] # (Auto) Seg Neutrophils % Seg Neuts % (Manual) Lymphocytes % (Manual) Monocytes % (Manual) Seg Neutrophils # Seg Neutrophils # Man Lymphocytes # (Manual) Monocytes # (Manual) PT 21.0 H INR 1.75 H Fibrinogen D-Dimer Heparin Anti-Xa Level ABG pH 7.518 H POC ABG pCO2 14.6 L POC ABG pO2 ABG Hemoglobin 5.3 L ABG Oxyhemoglobin ABG Sodium ABG Potassium 1.5 L ABG Chloride 129.0 H ABG Glucose 99 H Carboxyhemoglobin Sodium 152 H Potassium 3.1 L Chloride 112.5 H Carbon Dioxide BUN 77 H Creatinine 2.0 H Glucose 177 H POC Glucose Hemoglobin A1c Lactic Acid Calcium 6.0 L Phosphorus Magnesium Ferritin Total Bilirubin AST 1058 H ALT 929 H Lactate Dehydrogenase C-Reactive Protein Total Protein 3.6 L Albumin 1.6 L Arterial Blood Glucose 99 H Arterial Blood Ionized Calcium Urine WBC (Auto) U Epithel Cells (Auto) Urine Creatinine Coronavirus (PCR) Crossmatch 11/23/20 11/24/20 11/24/20 05:06 04:00 05:30 WBC RBC Hgb Hct RDW Plt Count Lymph % (Auto) [place] % (Auto) Lymph # (Auto) [place] # (Auto) Seg Neutrophils % Seg Neuts % (Manual) Lymphocytes % (Manual) Monocytes % (Manual) Seg Neutrophils # Seg Neutrophils # Man Lymphocytes # (Manual) Monocytes # (Manual) PT 22.8 H INR 1.95 H Fibrinogen D-Dimer 2825.65 H Heparin Anti-Xa Level ABG pH 7.508 H POC ABG pCO2 31.7 L POC ABG pO2 75.3 L ABG Hemoglobin 10.6 L ABG Oxyhemoglobin ABG Sodium 145.3 H ABG Potassium 2.8 L ABG Chloride 112.0 H ABG Glucose 119 H Carboxyhemoglobin Sodium Potassium Chloride Carbon Dioxide BUN Creatinine Glucose POC Glucose 109 H Hemoglobin A1c Lactic Acid Calcium Phosphorus Magnesium Ferritin Total Bilirubin AST ALT Lactate Dehydrogenase C-Reactive Protein Total Protein Albumin Arterial Blood Glucose 119 H Arterial Blood Ionized Calcium 3.8 L Urine WBC (Auto) U Epithel Cells (Auto) Urine Creatinine Coronavirus (PCR) Crossmatch 11/24/20 11/24/20 11/24/20 05:30 05:30 05:30 WBC RBC Hgb Hct RDW 16.2 H Plt Count 28 L Lymph % (Auto) [place] % (Auto) Lymph # (Auto) [place] # (Auto) Seg Neutrophils % Seg Neuts % (Manual) Lymphocytes % (Manual) Monocytes % (Manual) Seg Neutrophils # Seg Neutrophils # Man Lymphocytes # (Manual) Monocytes # (Manual) PT INR Fibrinogen D-Dimer Heparin Anti-Xa Level ABG pH POC ABG pCO2 POC ABG pO2 ABG Hemoglobin ABG Oxyhemoglobin ABG Sodium ABG Potassium ABG Chloride ABG Glucose Carboxyhemoglobin Sodium 151 H Potassium 2.9 L* Chloride 113.8 H Carbon Dioxide BUN 75 H Creatinine 1.8 H Glucose 117 H POC Glucose Hemoglobin A1c Lactic Acid Calcium 6.6 L Phosphorus Magnesium Ferritin 531.5 H Total Bilirubin AST 216 H ALT 5 L Lactate Dehydrogenase C-Reactive Protein Total Protein 4.0 L Albumin < 0.2 L Arterial Blood Glucose Arterial Blood Ionized Calcium Urine WBC (Auto) U Epithel Cells (Auto) Urine Creatinine Coronavirus (PCR) Crossmatch 11/24/20 11/24/20 05:53 12:27 WBC RBC Hgb Hct RDW Plt Count Lymph % (Auto) [place] % (Auto) Lymph # (Auto) [place] # (Auto) Seg Neutrophils % Seg Neuts % (Manual) Lymphocytes % (Manual) Monocytes % (Manual) Seg Neutrophils # Seg Neutrophils # Man Lymphocytes # (Manual) Monocytes # (Manual) PT INR Fibrinogen D-Dimer Heparin Anti-Xa Level ABG pH POC ABG pCO2 POC ABG pO2 ABG Hemoglobin ABG Oxyhemoglobin ABG Sodium ABG Potassium ABG Chloride ABG Glucose Carboxyhemoglobin Sodium Potassium Chloride Carbon Dioxide BUN Creatinine Glucose POC Glucose 107 H 63 L Hemoglobin A1c Lactic Acid Calcium Phosphorus Magnesium Ferritin Total Bilirubin AST ALT Lactate Dehydrogenase C-Reactive Protein Total Protein Albumin Arterial Blood Glucose Arterial Blood Ionized Calcium Urine WBC (Auto) U Epithel Cells (Auto) Urine Creatinine Coronavirus (PCR) Crossmatch Chest x-ray: image reviewed (mildly increased interstitial edema) Allied health notes reviewed: RT
--- NOTE | 2020-11-24 14:30 | Progress Note ---
Assessment and Plan Assessment and plan: This is an 85-year-old female admitted with acute hypoxic respiratory failure, COVID-19 pneumonia and septic shock Neuro: Acute metabolic encephalopathy, H/O lumbar compression fracture -multifactorial -Patient has no sedation -Supportive care Cardio: s/p VF cardiac arrest, Hypotension, inadvertent placement of carotid artery central venous line -Vasopressor support with norepi, vasopressin-> map goal 65 -Blood pressure monitoring via femoral kyle -Vascular surgery/interventional radiology consulted, appreciate recommendations -Patient was on a Heparin drip to prevent thrombus but this was discontinued d/t bleeding/cougulopahty -see code sheet from 11/21 for details Respiratory: Acute hypoxemic respiratory failure -[facility] consulted, appreciate recommendations -Intubated 11/13/2020 -11/24 ABG and CXR reviewed -AM vent settings: 8.00 ETT at 20 lips; AC,Rate 12, PEEP 8, TV 400, FiO2.40 -VAP bundle -Daily SBT/SAT when appropriate -Serial ABGs, CXR -Wean mechanical ventilation when appropriate GI: Acute Blood loss anemia, GI bleed, Bleeding Gastric ulcer, transaminitis, Severe protein malnutrition -GI consulted, appreciate recommendations -Ntr consulted, appreciate recommendations: On tube feedings -11/11 abdomen/pelvis CT, see report for findings -Protonix gtt -FMS in place-> Occult Positive -Serial H&H -11/20 s/p 2 units PRBC -11/20: EGD shows bleeding gastric ulcer which was banded -NPO per GI recs; Currently on MIVF to prevent hypoglycemia -Additional 4 units PRBC, FFPx2, Plt x2 -Trend CBC and LFTs : Acute kidney injury, left ureteral stone, metabolic alkalosis, hypocalcemia, hypernatermia, hypokalemia, hyperchloremia -Nephrology, urology consulted, appreciate recommendations -Strict intake and output -Daily weights -Avoid nephrotoxic medications -Renally dose medications -S/p bilateral stent -s/p IV calcium with PO supplements -MIVF ID: Septic shock, COVID-19 pneumonia, UTI -MRSA 11/13 sputum culture -Infectious disease consulted, appreciate recommendations -ID restarted abx : vancomycin and cefepime given new fevers and worsening white count on 11/20 -11/14 blood cultures x2 no growth to date -COVID-19 PCR + on 11/11 -Patient not a candidate for remdesivir due to renal failure -S/p Actemra -Dexamethasone for 10 days -Zinc/vitamin C -Trend COVID-19 inflammatory markers -Droplet/isolation precautions Endo: DM II -SSI -Hemoglobin A1c 6.6 -Accu-Cheks every 4 hours -Avoid hypoglycemia -Protonix gtt Heme: Acute GI bleed, elevated D-dimer, Leukocytosis, Supratheraputic INR, Thrombocytopenia -GI consulted, appreciate recommendations -SCDs to bilateral lower extremities while in bed -s/p 6 units prbc, 5 FFP and 2 unit plts -Transfuse for hemoglobin less than 7; -per GI : hgb goal >7, Platelet >50 K, and INR <1.5 -s/p heparin gtt -per GI: If on-going bleeding or drop in H/H again, recommend CTA to help localize the bleeding -Trend CBC, coags The high probability of a clinically significant, sudden or life threatening deterioration of the [multi] system(s) required my full and direct attention, intervention and personal management. The aggregate critical care time was [60] minutes. This time is in addition to time spent performing reported procedures but includes the following: [x] Data Review and interpretation [x] Patient assessment and monitoring of vital signs [x] Documentation [x] Medication orders and management Disposition Plan: icu Total Time Spent with Patient (Minutes): 60 History Interval history: This is a 85-year-old female with obesity, chronic low back pain, chronic UTI, muscle spasm, and depression who presents to the emergency department on 11/11 with complaints of nausea/vomiting and decreased p.o. intake for 1 week and complains of mild diarrhea. Patient is bedridden and nonambulatory and oriented to self. Her patient's daughter EMS was called to assess and they gave the patient IV fluids but did not transfer the patient. On 11/11 EMS was contacted again and due to persistent vomiting and apparent small amount of blood in vomit patient was transferred to [facility] for further evaluation and treatment. Upon presentation to the emergency department patient was hypoxic on room air with SPO2 of 88 to 90% and continue to have emesis. Work-up in the emergency department revealed leukocytosis, thrombocytosis, acute hypoxic respiratory failure, SIRS. Patient was admitted as a COVID-19 PUI with acute hypoxic respiratory failure. 11/12/2020 Patient doing well, Discussed with daughter at length about her prognosis and treatment, No nausea vomiting since morning Coronavirus PCR came positive 11/13/2020 Patient coded last night and was intubated, ROSC. Patient on vent, [employer] consult and ID consult 11/14/2020 Patient intubated, Weaning in progress 11/15/2020; patient remains intubated, on vasopressors for septic shock. Critically ill, poor prognosis, discussed with daughter Kirstin who understands the severity of illness, she wants to talk to the family. If the family agrees she is considering DNR/withdrawal of care, I informed patient's nurse 11/16/2020; Patient remains intubated, on Levophed, Severe sepsis due to COVID-19 pneumonia, critically ill, on heparin drip 11/17/2020; Patient remains critically ill. Septic shock on norepinephrine. Intubated on vent, Very poor prognosis Family unable to decide the goals of treatment CODE STATUS; Recommend palliative care/hospice 11/18: PICC team consulted for placement of PICC, patient noted to have minimal output from NG tube and tube feeding will be restarted, patient will be left with Reglan. CCM decrease PEEP. Hypocalcemia and hypomagnesemia repleted. 11/19: Patient's H/H is trending down, having dark stools via FMS and GI was consulted today. Placed on PPI and NG tube to low normal suction, start stool guaiac positive. Per CCM discontinue Lind catheter. Patient will now be on every 6 H&H and will to be transfused with 2 units PRBC. Long family meeting conducted today with hospitalist, CCM and administration. 11/20: GI at bedside to perform endoscopy, patient's blood pressure has been labile today and RN has been going up and down on vasopressors. Patient is still having melena and received 1 unit PRBC yesterday evening. 11/21: Patient midnight h/h noted to be 10/30 this morning from 12/31 prior and two units prbc were ordered. Repeat hbg 6.05/01. Patient had a cardiac arrest today (see event note/code sheet for details). Received 2 additional prbc and 1 ffp. Coags pending. Family updated and code status changed. 11/22: H/H remains stable, pt remains on vasopressors and having melana. Th rombocytopenic today and 1 unit plts ordered. HIT ordered. 11/23: Patient's H/H this morning dropped to 9.6/28.8 from . Patient remains alkalotic, hyponatremic and hypokalemic. Patient's IV fluids changed to calcium repleted. Patient remains on vasopressors. I updated daughter Kirstin today 11/24: Hypokalemia which was repleted. Plts 28 and given plts today/INR 1.95-> given FFP. Hospitalist Physical - Constitutional Vitals: Temp Pulse Resp BP Pulse Ox 96.1 F L 66 31 H 133/48 97 11/24/20 13:25 11/24/20 13:25 11/24/20 13:25 11/24/20 13:25 11/24/20 13:25 General appearance: Present: other (Intubated, not interactive) - EENT ENT: poor dentition - Neck Neck: Absent: masses or JVD, cervical LAD - Respiratory Respiratory effort: normal Respiratory: bilateral: diminished - Cardiovascular Rhythm: regular Heart Sounds: Present: S1 & S2. Absent: systolic murmur, diastolic murmur - Extremities Extremities: no ischemia, pulses intact, pulses symmetrical Extremity abnormal: edema, cold Peripheral Pulses: within normal limits - Abdominal General gastrointestinal: soft, non-tender, non-distended, hypoactive bowel sounds - Integumentary Integumentary: Present: dry, pale - Psychiatric Psychiatric: other (not interactive) - Neurologic Neurologic: other (intact cough/gag) - Allied Health Allied health notes reviewed: nursing, social work HEART Score - HEART Score Age: > 65 Risk factors: 1-2 risk factors Troponin: Troponin T < 0.010 ng/mL (0.00-0.029) 11/11/20 13:39 - Critical Actions Critical Actions: 0-3 pts:0.9-1.7%risk of adverse cardiac event.Candidate for discharge Results - Labs CBC & Chem 7: 11/24/20 05:30 11/24/20 Unknown Labs: Laboratory Last Values WBC 6.3 K/mm3 (4.5-11.0) 11/24/20 05:30 RBC 3.66 M/mm3 (3.65-5.03) 11/24/20 05:30 Hgb 10.9 gm/dl (10.1-14.3) 11/24/20 05:30 Hct 32.6 % (30.3-42.9) 11/24/20 05:30 MCV 89 fl (79-97) 11/24/20 05:30 MCH 30 pg (28-32) 11/24/20 05:30 MCHC 34 % (30-34) 11/24/20 05:30 RDW 16.2 % (13.2-15.2) H 11/24/20 05:30 Plt Count 28 K/mm3 (140-440) L 11/24/20 05:30 Lymph % (Auto) 5.7 % (13.4-35.0) L 11/13/20 05:23 [place] % (Auto) 9.0 % (0.0-7.3) H 11/13/20 05:23 Eos % (Auto) 0.0 % (0.0-4.3) 11/13/20 05:23 Baso % (Auto) 0.0 % (0.0-1.8) 11/13/20 05:23 Lymph # (Auto) 0.9 K/mm3 (1.2-5.4) L 11/13/20 05:23 [place] # (Auto) 1.4 K/mm3 (0.0-0.8) H 11/13/20 05:23 Eos # (Auto) 0.0 K/mm3 (0.0-0.4) 11/13/20 05:23 Baso # (Auto) 0.0 K/mm3 (0.0-0.1) 11/13/20 05:23 Add Manual Diff Complete 11/20/20 04:09 Total Counted 100 11/20/20 04:09 Seg Neutrophils % 85.3 % (40.0-70.0) H 11/13/20 05:23 Seg Neuts % (Manual) 77.0 % (40.0-70.0) H 11/20/20 04:09 Band Neutrophils % 13.0 % 11/20/20 04:09 Lymphocytes % (Manual) 3.0 % (13.4-35.0) L 11/20/20 04:09 Monocytes % (Manual) 3.0 % (0.0-7.3) 11/20/20 04:09 Metamyelocytes % 4.0 % 11/20/20 04:09 Nucleated RBC % Not Reportable 11/20/20 04:09 Seg Neutrophils # 13.6 K/mm3 (1.8-7.7) H 11/13/20 05:23 Seg Neutrophils # Man 16.1 K/mm3 (1.8-7.7) H 11/20/20 04:09 Band Neutrophils # 2.7 K/mm3 11/20/20 04:09 Lymphocytes # (Manual) 0.6 K/mm3 (1.2-5.4) L 11/20/20 04:09 Abs React Lymphs (Man) 0.0 K/mm3 11/20/20 04:09 Monocytes # (Manual) 0.6 K/mm3 (0.0-0.8) 11/20/20 04:09 Eosinophils # (Manual) 0.0 K/mm3 (0.0-0.4) 11/20/20 04:09 Basophils # (Manual) 0.0 K/mm3 (0.0-0.1) 11/20/20 04:09 Metamyelocytes # 0.8 K/mm3 11/20/20 04:09 Myelocytes # 0.0 K/mm3 11/20/20 04:09 Promyelocytes # 0.0 K/mm3 11/20/20 04:09 Blast Cells # 0.0 K/mm3 11/20/20 04:09 WBC Morphology Not Reportable 11/20/20 04:09 Hypersegmented Neuts Not Reportable 11/20/20 04:09 Hyposegmented Neuts Not Reportable 11/20/20 04:09 Hypogranular Neuts Not Reportable 11/20/20 04:09 Smudge Cells Not Reportable 11/20/20 04:09 Toxic Granulation Not Reportable 11/20/20 04:09 Toxic Vacuolation Not Reportable 11/20/20 04:09 Dohle Bodies Not Reportable 11/20/20 04:09 Pelger-Huet Anomaly Not Reportable 11/20/20 04:09 [place] Rods Not Reportable 11/20/20 04:09 Platelet Estimate Consistent w auto 11/20/20 04:09 Clumped Platelets Not Reportable 11/20/20 04:09 Plt Clumps, EDTA Not Reportable 11/20/20 04:09 Large Platelets Not Reportable 11/20/20 04:09 Giant Platelets Not Reportable 11/20/20 04:09 Platelet Satelliting Not Reportable 11/20/20 04:09 Plt Morphology Comment Not Reportable 11/20/20 04:09 RBC Morphology Not Reportable 11/20/20 04:09 Dimorphic RBCs Not Reportable 11/20/20 04:09 Polychromasia Few 11/20/20 04:09 Hypochromasia Few 11/20/20 04:09 Poikilocytosis Not Reportable 11/20/20 04:09 Anisocytosis Not Reportable 11/20/20 04:09 Microcytosis Not Reportable 11/20/20 04:09 Macrocytosis Not Reportable 11/20/20 04:09 Spherocytes Not Reportable 11/20/20 04:09 Pappenheimer Bodies Not Reportable 11/20/20 04:09 Sickle Cells Not Reportable 11/20/20 04:09 Target Cells Not Reportable 11/20/20 04:09 Tear Drop Cells Not Reportable 11/20/20 04:09 Ovalocytes Not Reportable 11/20/20 04:09 Helmet Cells Not Reportable 11/20/20 04:09 [place] Bodies Not Reportable 11/20/20 04:09 [place] Rings Not Reportable 11/20/20 04:09 [place] Cells Not Reportable 11/20/20 04:09 Bite Cells Not Reportable 11/20/20 04:09 Crenated Cell Not Reportable 11/20/20 04:09 Elliptocytes Not Reportable 11/20/20 04:09 Acanthocytes (Spur) Not Reportable 11/20/20 04:09 Rouleaux Not Reportable 11/20/20 04:09 Hemoglobin C Crystals Not Reportable 11/20/20 04:09 Schistocytes Not Reportable 11/20/20 04:09 Malaria parasites Not Reportable 11/20/20 04:09 Mauro Bodies Not Reportable 11/20/20 04:09 Hem Pathologist Commnt No 11/20/20 04:09 PT 22.8 Sec. (12.2-14.9) H 11/24/20 05:30 INR 1.95 (0.87-1.13) H 11/24/20 05:30 APTT 31.7 Sec. (24.2-36.6) 11/24/20 05:30 Fibrinogen 200 mg/dl (211-480) L 11/22/20 02:00 D-Dimer 2825.65 ng/mlDDU (0-234) H 11/24/20 05:30 Heparin Anti-Xa Level 1.24 U.I./ml (0.3-0.7) H 11/21/20 11:12 ABG pH 7.508 (7.320-7.450) H 11/24/20 04:00 POC ABG pCO2 31.7 mmHg (32.0-48.0) L 11/24/20 04:00 POC ABG pO2 75.3 mmHg (83-108) L 11/24/20 04:00 POC ABG HCO3 24.6 11/24/20 04:00 ABG O2 Saturation 95.7 (0-100) 11/24/20 04:00 POC ABG Base Excess 1.9 11/24/20 04:00 ABG Hemoglobin 10.6 (12.0-17.5) L 11/24/20 04:00 ABG Oxyhemoglobin 94.9 (94-98) 11/24/20 04:00 ABG Methemoglobin 0.3 (0.0-1.5) 11/24/20 04:00 ABG Sodium 145.3 mmol/L (136.0-145.0) H 11/24/20 04:00 ABG Potassium 2.8 mmol/L (3.40-4.50) L 11/24/20 04:00 ABG Chloride 112.0 mmol/L (98-107) H 11/24/20 04:00 ABG Glucose 119 mg/dL (65-95) H 11/24/20 04:00 Carboxyhemoglobin 0.5 (0.5-1.5) 11/24/20 04:00 FiO2 % 40.0 11/24/20 04:00 Sodium 151 mmol/L (137-145) H 11/24/20 05:30 Potassium 4.2 mmol/L (3.6-5.0) D 11/24/20 Unknown Chloride 113.8 mmol/L (98-107) H 11/24/20 05:30 Carbon Dioxide 26 mmol/L (22-30) 11/24/20 05:30 Anion Gap 14 mmol/L 11/24/20 05:30 BUN 75 mg/dL (7-17) H 11/24/20 05:30 Creatinine 1.8 mg/dL (0.6-1.2) H 11/24/20 05:30 Estimated GFR 27 ml/min 11/24/20 05:30 BUN/Creatinine Ratio 42 % 11/24/20 05:30 Glucose 117 mg/dL (65-100) H 11/24/20 05:30 POC Glucose 63 mg/dL (70-105) L 11/24/20 12:27 Hemoglobin A1c 6.6 % (4-6) H 11/12/20 05:07 Lactic Acid 5.20 mmol/L (0.7-2.0) H* 11/22/20 Unknown Calcium 6.6 mg/dL (8.4-10.2) L 11/24/20 05:30 Phosphorus 3.70 mg/dL (2.5-4.5) 11/24/20 05:30 Magnesium 2.00 mg/dL (1.7-2.3) 11/24/20 05:30 Ferritin 531.5 ng/mL (10.0-200.0) H 11/24/20 05:30 Total Bilirubin 1.00 mg/dL (0.1-1.2) 11/24/20 05:30 AST 216 units/L (5-40) H 11/24/20 05:30 ALT 5 units/L (7-56) L 11/24/20 05:30 Alkaline Phosphatase 60 units/L (35-129) 11/24/20 05:30 Lactate Dehydrogenase 1131 units/L (91-180) H 11/21/20 09:53 Troponin T < 0.010 ng/mL (0.00-0.029) 11/11/20 13:39 C-Reactive Protein 0.00 mg/dL (0.00-1.30) 11/24/20 05:30 Total Protein 4.0 g/dL (6.3-8.2) L 11/24/20 05:30 Albumin < 0.2 g/dL (3.9-5) L 11/24/20 05:30 Albumin/Globulin Ratio 0.8 % 11/24/20 05:30 Lipase 55 units/L (13-60) 11/11/20 13:39 Procalcitonin < 0.05 ng/mL (<0.15) 11/11/20 16:59 Arterial Blood Glucose 119 mg/dL (65-95) H 11/24/20 04:00 Arterial Blood Ionized Calcium 3.8 mg/dL (4.6-5.3) L 11/24/20 04:00 Urine Color Janay (Yellow) 11/19/20 23:45 Urine Turbidity Cloudy (Clear) 11/19/20 23:45 Urine pH 5.0 (5.0-7.0) 11/19/20 23:45 Ur Specific [place] 1.015 (1.003-1.030) 11/19/20 23:45 Urine Protein 100 mg/dl mg/dL (Negative) 11/19/20 23:45 Urine Glucose (UA) Neg mg/dL (Negative) 11/19/20 23:45 Urine Ketones Neg mg/dL (Negative) 11/19/20 23:45 Urine Blood Lg (Negative) 11/19/20 23:45 Urine Nitrite Neg (Negative) 11/19/20 23:45 Ur Reducing Substances TNR 11/14/20 06:15 Urine Bilirubin Neg (Negative) 11/19/20 23:45 Urine Ictotest TNR 11/14/20 06:15 Urine Urobilinogen < 2.0 mg/dL (<2.0) 11/19/20 23:45 Ur Leukocyte Esterase Mod (Negative) 11/19/20 23:45 Urine WBC (Auto) > 182.0 /HPF (0.0-6.0) H 11/19/20 23:45 Urine RBC (Auto) > 182.0 /HPF (0.0-6.0) 11/19/20 23:45 U Epithel Cells (Auto) 3.0 /HPF (0-13.0) 11/19/20 23:45 Urine Bacteria (Auto) 4+ /HPF (Negative) 11/19/20 23:45 Urine WBC Clumps 3+ /HPF 11/14/20 06:15 Ur Transition Epith Cell 4 /HPF 11/19/20 23:45 Urine Mucus Few /HPF 11/19/20 23:45 Ur Yeast w Hyphae 2+ /HPF 11/19/20 23:45 Urine Yeast (Budding) 3+ /HPF 11/19/20 23:45 Urine Creatinine 80.2 mg/dL (0.1-20.0) H 11/14/20 06:15 Urine Sodium 28 mmol/L 11/14/20 06:15 Coronavirus (PCR) Positive (Negative) A 11/11/20 Unknown Blood Type A POSITIVE 11/19/20 19:45 Antibody Screen Negative 11/19/20 19:45 Crossmatch See Detail 11/19/20 19:45 Lind/IV: Voiding Method External Female Catheter Active Medications - Current Medications Current Medications: Generic Name Dose Route Start Last Admin Trade Name Freq PRN Reason Stop Dose Admin Acetaminophen 650 mg 11/11/20 22:11 11/19/20 11:30 Acetaminophen 325 Mg Tab PO 650 mg Q4H PRN Administration Pain MILD(1-3)/Fever >100.5/ERAZO Albuterol 2.5 mg 11/13/20 07:40 Albuterol 2.5 Mg/3 Ml Nebu IH Q4HRT PRN Shortness Of Breath Lipase/Protease/Amylase 1 each 11/13/20 17:32 Lipase 10,500/Protease 25,000/Amylase 43,750 (Units) Dr Cap FEEDTUBE PRN PRN For Clogged Feeding Tube Ascorbic Acid 500 mg 11/13/20 22:00 11/24/20 10:11 Ascorbic Acid 500 Mg Tab PO Not Given BID CARLOS Baclofen 10 mg 11/11/20 22:09 Baclofen 10 Mg Tab PO TID PRN MUSCLE SPASMS & PAIN Dextrose 50 ml 11/13/20 16:43 11/24/20 12:34 Dextrose 50% In Water (25gm) 50 Ml Syringe IV 50 ml Q30MIN PRN Administration Hypoglycemia Protocol Fentanyl 50 mcg 11/13/20 05:33 Fentanyl 100 Mcg/2 Ml Inj IV Q10MIN PRN ANALGESIA Hydrophilic Ointment 1 applic 11/13/20 05:33 Lip Therapy Vaseline TP Q2HR PRN Dry Lips Fentanyl Citrate 2,000 mcg in 100 mls @ 3.81 mls/hr 11/13/20 06:00 11/21/20 15:00 Fentanyl Drip Premix IV 0 mcg/kg/hr TITR CARLOS 0 mls/hr Titration Protocol 1 MCG/KG/HR NORepinephrine/NS 8 MG-250 ML 8 mg in 250 mls @ 3.75 mls/hr 11/13/20 15:00 11/24/20 13:25 Norepinephrine/Ns 8 Mg-250 Ml (Double Conc) IV 8 mcg/min TITRATE CARLOS 15 mls/hr Titration Protocol 2 MCG/MIN Vasopressin 20 unit/ Sodium 101 mls @ 9.09 mls/hr 11/19/20 09:00 11/23/20 14:54 Chloride IV 0 units/min TITR CARLOS 0 mls/hr Titration Protocol 0.03 UNITS/MIN Vancomycin HCl 1,500 mg/ 530 mls @ 333.333 mls/hr 11/20/20 15:00 11/23/20 14:05 Sodium Chloride IV 333.333 mls/hr Q24H CARLOS Administration Phenylephrine HCl 100 mg/ 100 mls @ 3 mls/hr 11/21/20 08:15 11/21/20 17:53 Sodium Chloride IV 0 mcg/min TITR CARLOS 0 mls/hr Titration Protocol 50 MCG/MIN Epinephrine 16 mg/ Sodium 250 mls @ 1.875 mls/hr 11/21/20 11:00 11/22/20 01:00 Chloride IV 0 mcg/min TITR CARLOS 0 mls/hr Titration Protocol 2 MCG/MIN Pantoprazole Sodium 80 mg/ 100 mls @ 10 mls/hr 11/22/20 21:14 11/24/20 06:37 Sodium Chloride IV 8 mg/hr DIRECT CAROLS 10 mls/hr Administration 8 MG/HR Potassium Chloride 20 meq/ 1,010 mls @ 42 mls/hr 11/23/20 12:00 11/24/20 12:08 Dextrose IV 42 mls/hr DIRECT CARLOS Administration Insulin Human Regular 0 units 11/21/20 00:00 11/24/20 12:37 Insulin Regular, Human 100 Units/1 Ml SUB-Q Not Given Q6HR CARLOS Protocol Multi-Ingred Cream/Lotion/Oil/Oint 1 applic 11/13/20 05:33 Mineral Oil/Petrolatum, White Ophth Oint 3.5 Gm OU Q4HR PRN Dry Eye(s) Ondansetron HCl 4 mg 11/11/20 22:11 Ondansetron 4 Mg/2 Ml Inj IV Q3H PRN Nausea And Vomiting Simple Syrup 15 ml 11/13/20 17:32 Simple Syrup 15 Ml FEEDTUBE PRN PRN Hypoglycemia Simple Syrup 30 ml 11/13/20 17:32 Simple Syrup 15 Ml FEEDTUBE PRN PRN Hypoglycemia Sodium Bicarbonate 325 mg 11/13/20 17:32 Sodium Bicarbonate 325 Mg Tab FEEDTUBE PRN PRN For Clogged Feeding Tube Sodium Chloride 10 ml 11/12/20 10:00 11/24/20 10:48 Sodium Chloride 0.9% 10 Ml Flush Syringe IV 10 ml BID CARLOS Administration Sodium Chloride 10 ml 11/11/20 22:11 11/22/20 20:50 Sodium Chloride 0.9% 10 Ml Flush Syringe IV 10 ml PRN PRN Administration LINE FLUSH Zinc Sulfate 220 mg 11/13/20 22:00 11/24/20 10:11 Zinc Sulfate 220 Mg Cap PO Not Given BID CARLOS Nutrition/Malnutrition Assess - Dietary Evaluation Nutrition/Malnutrition Findings: Nutrition Notes Start: 11/13/20 17:25 Freq: Status: Active Protocol: Document 11/22/20 11:22 (Rec: 11/22/20 11:24 [id number]) Nutrition Notes Initial or Follow up Brief Note Current Diagnosis Sepsis,Respiratory Failure Other Pertinent Diagnosis GIB, COVID-19 (+), Dehydration , (L) renal stone Current Diet Vital AF 1.2 at 50 ml/hr Subjective/Other Information Pt suffered code yesterday. TF is off per GI until pt is more stable. Nutrition Intervention Follow-Up By: 11/26/20 Additional Comments F/u: TF restart and tolerance
[2020-11-24] MEDS: POTASSIUM CHLORIDE 10 MEQ 10 MEQ/100 ML BAG IV SCH (14:46)
[2020-11-24] MEDS: VANCOMYCIN 1,500 MG in SODIUM CHLORIDE 0.9% 500 ML 500 ML IV SCH (17:24)
[2020-11-25] MEDS: DEXTROSE 50% IN WATER (25GM) 50 ML SYRINGE IV PRN ×2 (02:12→17:29)
--- NOTE | 2020-11-25 03:12 | Hem/Onc Consultation ---
History of Present Illness - History of Present Illness heme data review consut for anemia nd low plt count, requested by hospitalist 85yo disabled bedbound woman with covid19 pneumonia hospitalized 11/13/20, ahd cardiac arrest-->IV hepairn-->GI tract bleeding-->EGD has been on vent, on pressors found to have low plt counts, abn coags-->s/p transfusions end of life discussion ongoing data reviewed below IMP: low plt count due to meds or infection, r/o HIT coagulopathy with bleeding tendency, presumed to be due to liver dysfunction IV heparin may be causing her to become bleeding covid19 infection PLAN/REC: transfusion parameters for plt no more FFP transfiusions planned Laboratory Last Values WBC 6.3 K/mm3 (4.5-11.0) 11/24/20 05:30 Hgb 10.9 gm/dl (10.1-14.3) 11/24/20 05:30 Hct 32.6 % (30.3-42.9) 11/24/20 05:30 Plt Count 28 K/mm3 (140-440) L 11/24/20 05:30 PT 22.8 Sec. (12.2-14.9) H 11/24/20 05:30 INR 1.95 (0.87-1.13) H 11/24/20 05:30 APTT 31.7 Sec. (24.2-36.6) 11/24/20 05:30 Fibrinogen 200 mg/dl (211-480) L 11/22/20 02:00 D-Dimer 2825.65 ng/mlDDU (0-234) H 11/24/20 05:30 Heparin Anti-Xa Level 1.24 U.I./ml (0.3-0.7) H 11/21/20 11:12 ABG pH 7.508 (7.320-7.450) H 11/24/20 04:00 Blood Type A POSITIVE 11/19/20 19:45 Antibody Screen Negative 11/19/20 19:45 Crossmatch See Detail 11/19/20 19:45 Past History Past Medical History: other (Depression, chronic back pain) Past Surgical History: tonsillectomy, Other (Back surgery, hemorrhoidectomy,) Social history: smoking Medications and Allergies Allergies Allergy/AdvReac Type Severity Reaction Status Date / Time morphine AdvReac Nausea Verified 05/26/13 19:22 Home Medications Medication Instructions Recorded Confirmed Last Taken Type Acetaminophen [Tylenol] 325 mg PO DAILY #10 tablet 05/26/13 11/24/20 10/16/14 Rx Baclofen [Lioresal] 10 mg PO TID PRN 05/26/13 11/24/20 10/16/14 History Diazepam [Valium] 10 mg PO BID 05/26/13 11/24/20 10/16/14 History PARoxetine [Paxil] 10 mg PO DAILY 05/26/13 11/24/20 10/16/14 19:00 History Quetiapine Fumarate [SEROquel XR] 200 mg PO DAILY 05/26/13 11/24/20 10/16/14 History rOPINIRole [Requip] 1 mg PO QHS 05/26/13 11/24/20 10/16/14 19:00 History QUEtiapine [SEROquel] 200 mg PO QHS 05/28/13 11/24/20 10/16/14 19:00 History Famotidine [Pepcid] 10 mg PO BID #60 tablet 06/02/13 11/24/20 10/16/14 Rx levoFLOXacin [Levaquin] 750 mg PO QDAY #7 tablet 06/02/13 11/24/20 10/16/14 Rx metroNIDAZOLE [Flagyl] 500 mg PO Q8HR #30 tablet 06/02/13 11/24/20 10/16/14 Rx Hydromorphone HCl [Dilaudid] 4 mg PO PRN 10/17/14 11/24/20 10/16/14 History Oxycodone HCl/Acetaminophen 1 each PO Q6HR PRN 10/17/14 11/24/20 10/16/14 History [Percocet 10-325 mg] Oxycodone HCl/Acetaminophen 1 each PO Q6HR PRN #30 tablet 10/18/14 11/24/20 Unknown Rx [Percocet 10-325 mg] Active Meds: Active Medications Acetaminophen (Acetaminophen 325 Mg Tab) 650 mg PO Q4H PRN PRN Reason: Pain MILD(1-3)/Fever >100.5/ERAZO Last Admin: 11/19/20 11:30 Dose: 650 mg Documented by: Albuterol (Albuterol 2.5 Mg/3 Ml Nebu) 2.5 mg IH Q4HRT PRN PRN Reason: Shortness Of Breath Lipase/Protease/Amylase (Lipase 10,500/Protease 25,000/Amylase 43,750 (Units) Dr Cap) 1 each FEEDTUBE PRN PRN PRN Reason: For Clogged Feeding Tube Ascorbic Acid (Ascorbic Acid 500 Mg Tab) 500 mg PO BID CARLOS Last Admin: 11/24/20 10:11 Dose: Not Given Documented by: Baclofen (Baclofen 10 Mg Tab) 10 mg PO TID PRN PRN Reason: MUSCLE SPASMS & PAIN Dextrose (Dextrose 50% In Water (25gm) 50 Ml Syringe) 50 ml IV Q30MIN PRN; Protocol PRN Reason: Hypoglycemia Last Admin: 11/25/20 02:12 Dose: 50 ml Documented by: Fentanyl (Fentanyl 100 Mcg/2 Ml Inj) 50 mcg IV Q10MIN PRN PRN Reason: ANALGESIA Hydrophilic Ointment (Lip Therapy Vaseline) 1 applic TP Q2HR PRN PRN Reason: Dry Lips Fentanyl Citrate (Fentanyl Drip Premix) 2,000 mcg in 100 mls @ 3.81 mls/hr IV TITR CARLOS; Protocol Last Titration: 11/21/20 15:00 Dose: 0 mcg/kg/hr, 0 mls/hr Documented by: NORepinephrine/NS 8 MG-250 ML (Norepinephrine/Ns 8 Mg-250 Ml (Double Conc)) 8 mg in 250 mls @ 3.75 mls/hr IV TITRATE CARLOS; Protocol Last Admin: 11/24/20 17:23 Dose: 10 mcg/min, 18.75 mls/hr Documented by: Vasopressin 20 unit/ Sodium (Chloride) 101 mls @ 9.09 mls/hr IV TITR CARLOS; Protocol Last Titration: 11/23/20 14:54 Dose: 0 units/min, 0 mls/hr Documented by: Phenylephrine HCl 100 mg/ (Sodium Chloride) 100 mls @ 3 mls/hr IV TITR CARLOS; Protocol Last Titration: 11/21/20 17:53 Dose: 0 mcg/min, 0 mls/hr Documented by: Epinephrine 16 mg/ Sodium (Chloride) 250 mls @ 1.875 mls/hr IV TITR CARLOS; Protocol Last Titration: 11/22/20 01:00 Dose: 0 mcg/min, 0 mls/hr Documented by: Pantoprazole Sodium 80 mg/ (Sodium Chloride) 100 mls @ 10 mls/hr IV DIRECT [facility] Last Admin: 11/24/20 17:24 Dose: 8 mg/hr, 10 mls/hr Documented by: Potassium Chloride 20 meq/ (Dextrose) 1,010 mls @ 42 mls/hr IV DIRECT [facility] Last Admin: 11/24/20 12:08 Dose: 42 mls/hr Documented by: Insulin Human Regular (Insulin Regular, Human 100 Units/1 Ml) 0 units SUB-Q Q6HR CARLOS; Protocol Last Admin: 11/24/20 17:25 Dose: Not Given Documented by: Multi-Ingred Cream/Lotion/Oil/Oint (Mineral Oil/Petrolatum, White Ophth Oint 3.5 Gm) 1 applic OU Q4HR PRN PRN Reason: Dry Eye(s) Ondansetron HCl (Ondansetron 4 Mg/2 Ml Inj) 4 mg IV Q3H PRN PRN Reason: Nausea And Vomiting Simple Syrup (Simple Syrup 15 Ml) 15 ml FEEDTUBE PRN PRN PRN Reason: Hypoglycemia Simple Syrup (Simple Syrup 15 Ml) 30 ml FEEDTUBE PRN PRN PRN Reason: Hypoglycemia Sodium Bicarbonate (Sodium Bicarbonate 325 Mg Tab) 325 mg FEEDTUBE PRN PRN PRN Reason: For Clogged Feeding Tube Sodium Chloride (Sodium Chloride 0.9% 10 Ml Flush Syringe) 10 ml IV BID [facility] Last Admin: 11/24/20 10:48 Dose: 10 ml Documented by: Sodium Chloride (Sodium Chloride 0.9% 10 Ml Flush Syringe) 10 ml IV PRN PRN PRN Reason: LINE FLUSH Last Admin: 11/22/20 20:50 Dose: 10 ml Documented by: Zinc Sulfate (Zinc Sulfate 220 Mg Cap) 220 mg PO BID [facility] Last Admin: 11/24/20 10:11 Dose: Not Given Documented by: Exam - Constitutional Vitals: Last Vital Signs Temp 97 F L 11/24/20 23:54 Pulse 76 11/25/20 00:15 Resp 22 11/25/20 00:15 BP 107/38 11/25/20 00:08 Pulse Ox 99 11/25/20 00:15 Results - Labs lab Results: Laboratory Results - last 24 hr 08/01/3011/24/20 11/24/20 19:45 04:00 05:30 WBC RBC Hgb Hct MCV MCH MCHC RDW Plt Count PT 22.8 H INR 1.95 H APTT 31.7 D-Dimer 2825.65 H ABG pH 7.508 H POC ABG pCO2 31.7 L POC ABG pO2 75.3 L POC ABG HCO3 24.6 ABG O2 Saturation 95.7 POC ABG Base Excess 1.9 ABG Hemoglobin 10.6 L ABG Oxyhemoglobin 94.9 ABG Methemoglobin 0.3 ABG Sodium 145.3 H ABG Potassium 2.8 L ABG Chloride 112.0 H ABG Glucose 119 H Carboxyhemoglobin 0.5 FiO2 % 40.0 Sodium Potassium Chloride Carbon Dioxide Anion Gap BUN Creatinine Estimated GFR BUN/Creatinine Ratio Glucose POC Glucose Calcium Phosphorus Magnesium Ferritin Total Bilirubin AST ALT Alkaline Phosphatase C-Reactive Protein Total Protein Albumin Albumin/Globulin Ratio Arterial Blood Glucose 119 H Arterial Blood Ionized Calcium 3.8 L Vancomycin Trough Crossmatch See Detail 11/24/20 11/24/20 11/24/20 05:30 05:30 05:30 WBC 6.3 RBC 3.66 Hgb 10.9 Hct 32.6 MCV 89 MCH 30 MCHC 34 RDW 16.2 H Plt Count 28 L PT INR APTT D-Dimer ABG pH POC ABG pCO2 POC ABG pO2 POC ABG HCO3 ABG O2 Saturation POC ABG Base Excess ABG Hemoglobin ABG Oxyhemoglobin ABG Methemoglobin ABG Sodium ABG Potassium ABG Chloride ABG Glucose Carboxyhemoglobin FiO2 % Sodium 151 H Potassium 2.9 L* Chloride 113.8 H Carbon Dioxide 26 Anion Gap 14 BUN 75 H Creatinine 1.8 H Estimated GFR 27 BUN/Creatinine Ratio 42 Glucose 117 H POC Glucose Calcium 6.6 L Phosphorus 3.70 Magnesium 2.00 Ferritin 531.5 H Total Bilirubin 1.00 AST 216 H ALT 5 L Alkaline Phosphatase 60 C-Reactive Protein 0.00 Total Protein 4.0 L Albumin < 0.2 L Albumin/Globulin Ratio 0.8 Arterial Blood Glucose Arterial Blood Ionized Calcium Vancomycin Trough Crossmatch 11/24/20 11/24/20 11/24/20 05:49 05:53 12:27 WBC RBC Hgb Hct MCV MCH MCHC RDW Plt Count PT INR APTT D-Dimer ABG pH POC ABG pCO2 POC ABG pO2 POC ABG HCO3 ABG O2 Saturation POC ABG Base Excess ABG Hemoglobin ABG Oxyhemoglobin ABG Methemoglobin ABG Sodium ABG Potassium ABG Chloride ABG Glucose Carboxyhemoglobin FiO2 % Sodium Potassium Chloride Carbon Dioxide Anion Gap BUN Creatinine Estimated GFR BUN/Creatinine Ratio Glucose POC Glucose 72 107 H 63 L Calcium Phosphorus Magnesium Ferritin Total Bilirubin AST ALT Alkaline Phosphatase C-Reactive Protein Total Protein Albumin Albumin/Globulin Ratio Arterial Blood Glucose Arterial Blood Ionized Calcium Vancomycin Trough Crossmatch 11/24/20 11/24/20 11/24/20 15:00 17:04 23:44 WBC RBC Hgb Hct MCV MCH MCHC RDW Plt Count PT INR APTT D-Dimer ABG pH POC ABG pCO2 POC ABG pO2 POC ABG HCO3 ABG O2 Saturation POC ABG Base Excess ABG Hemoglobin ABG Oxyhemoglobin ABG Methemoglobin ABG Sodium ABG Potassium ABG Chloride ABG Glucose Carboxyhemoglobin FiO2 % Sodium Potassium Chloride Carbon Dioxide Anion Gap BUN Creatinine Estimated GFR BUN/Creatinine Ratio Glucose POC Glucose 101 67 L Calcium Phosphorus Magnesium Ferritin Total Bilirubin AST ALT Alkaline Phosphatase C-Reactive Protein Total Protein Albumin Albumin/Globulin Ratio Arterial Blood Glucose Arterial Blood Ionized Calcium Vancomycin Trough 35.2 H Crossmatch 11/24/20 Unknown WBC RBC Hgb Hct MCV MCH MCHC RDW Plt Count PT INR APTT D-Dimer ABG pH POC ABG pCO2 POC ABG pO2 POC ABG HCO3 ABG O2 Saturation POC ABG Base Excess ABG Hemoglobin ABG Oxyhemoglobin ABG Methemoglobin ABG Sodium ABG Potassium ABG Chloride ABG Glucose Carboxyhemoglobin FiO2 % Sodium Potassium 4.2 D Chloride Carbon Dioxide Anion Gap BUN Creatinine Estimated GFR BUN/Creatinine Ratio Glucose POC Glucose Calcium Phosphorus Magnesium Ferritin Total Bilirubin AST ALT Alkaline Phosphatase C-Reactive Protein Total Protein Albumin Albumin/Globulin Ratio Arterial Blood Glucose Arterial Blood Ionized Calcium Vancomycin Trough Crossmatch
--- NOTE | 2020-11-25 03:31 | XRay Report ---
CHEST 1 VIEW 11/25/2020 2:18 AM INDICATION / CLINICAL INFORMATION: hypoxia. COMPARISON: 11/24/2020 FINDINGS: SUPPORT DEVICES: Lines and tubes again project in expected position HEART / MEDIASTINUM: No significant abnormality. LUNGS / PLEURA: Moderate interstitial edema with small bilateral pleural effusions and chronic elevat ion right hemidiaphragm, unchanged No pneumothorax. ADDITIONAL FINDINGS: No significant additional findings. IMPRESSION: 1. Persistent CHF Signer Name: Guanakito Orellana MD Signed: 11/25/2020 3:27 AM Workstation Name: [id number]
[2020-11-25] MEDS: PANTOPRAZOLE 80 MG in SODIUM CHLORIDE 0.9% 100 ML IV SCH (04:39)
[2020-11-25 04:52] LABS: ABG Base Excess -1.6 mmol/L (-2.0-3.0); ABG Methemoglobin 0.5 % (0.0-1.5); ABG Oxygen Saturation 97.6 % (95.0-99.0); ABG PCO2 27.1 mm Hg; ABG PH 7.508 pH Units (7.350-7.450); ABG PO2 90.8 mm Hg (80.0-90.0)
[2020-11-25] MEDS: INSULIN REGULAR, HUMAN 100 UNITS/1 ML SUB-Q SCH ×4 (05:50→17:31)
[2020-11-25] MEDS: NORepinephrine/NS 8 MG-250 ML 8 MG/250 ML INFUS..BTL IV SCH ×2 (05:55→17:29)
[2020-11-25] MEDS: ASCORBIC ACID 500 MG TAB PO SCH ×3 (08:48→21:30)
[2020-11-25] MEDS: ZINC SULFATE 220 MG CAP PO SCH ×3 (08:48→21:30)
--- NOTE | 2020-11-25 11:22 | Progress Note ---
Assessment and Plan Assessment and plan: Assessment and Plan This is an 85-year-old female admitted with acute hypoxic respiratory failure, COVID-19 pneumonia and septic shock Neuro: Acute metabolic encephalopathy, H/O lumbar compression fracture -fentanyl for pain -Supportive care -DNR -family updated on plan of care Cardio: s/p VF cardiac arrest, Hypotension, inadvertent placement of carotid artery central venous line -Vasopressor support with norepi, vasopressin-> map goal 65 -Blood pressure monitoring via femoral kyle -Vascular surgery/interventional radiology consulted, appreciate recommendations -Patient was on a Heparin drip to prevent thrombus but this was discontinued d/t bleeding/cougulopahty -see code sheet from 11/21 for details -SR-ST -on levo for MAP goal of 65 Respiratory: Acute hypoxemic respiratory failure -[facility] consulted, appreciate recommendations -Intubated 11/13/2020 -11/24 ABG and CXR reviewed -AM vent settings: 8.00 ETT at 20 lips -CMV 400/8/.40 - placed on PSV trial with p-supp at 16 cm H2O PS trial and ABG in 2 hours -VAP bundle -Serial ABGs, CXR -AM xray chest noted GI: Acute Blood loss anemia, GI bleed, Bleeding Gastric ulcer, transaminitis, Severe protein malnutrition -GI consulted, appreciate recommendations -Ntr consulted, appreciate recommendations: On tube feedings -11/11 abdomen/pelvis CT, see report for findings -Protonix BID -Serial H&H -11/20: EGD shows bleeding gastric ulcer which was banded -Trend CBC and LFTs -TF to start at 10 ml/h and advance to goal as tolerated - continue to hold CT angio abd & Pelvis till more as long as H&H stable and no gross bleeding : Acute kidney injury, left ureteral stone, metabolic alkalosis, hypocalcemia, hypernatermia, hypokalemia, hyperchloremia -Nephrology, urology consulted, appreciate recommendations -Strict intake and output -Daily weights -Avoid nephrotoxic medications -Renally dose medications -S/p bilateral stent -s/p IV calcium with PO supplements -D 5 1/2NS at 75 ml/h x 2 l -k replaced today -Cr 1.8 yesterday -AM labs ordered ID: Septic shock, COVID-19 pneumonia, UTI -MRSA 11/13 sputum culture -Infectious disease consulted, appreciate recommendations -ID restarted abx : vancomycin and cefepime given new fevers and worsening white count on 11/20 -11/14 blood cultures x2 no growth to date -COVID-19 PCR + on 11/11 -Patient not a candidate for remdesivir due to renal failure -S/p Actemra -Dexamethasone for 10 days -Zinc/vitamin C -Trend COVID-19 inflammatory markers -Droplet/isolation precautions -wound consult placed and pending for sacral wound Endo: DM II -SSI -Hemoglobin A1c 6.6 -Accu-Cheks every 4 hours -Avoid hypoglycemia Heme: Acute GI bleed, elevated D-dimer, Leukocytosis, Supratheraputic INR, Thrombocytopenia -GI consulted, appreciate recommendations -SCDs to bilateral lower extremities while in bed -Transfuse for hemoglobin less than 7;\ -per GI : hgb goal >7, Platelet >50 K, and INR <1.5 -s/p heparin gtt -per GI: If on-going bleeding or drop in H/H again, recommend CTA to help localize the bleeding -Trend CBC, coags -Heme following -plt goal 20 unless bleeding -remains off AC given risk outweighs benefit at this time -HIT pending -trend INR The high probability of a clinically significant, sudden or life threatening deterioration of the [multi] system(s) required my full and direct attention, intervention and personal management. The aggregate critical care time was [60] minutes. This time is in addition to time spent performing reported procedures but includes the following: [x] Data Review and interpretation [x] Patient assessment and monitoring of vital signs [x] Documentation [x] Medication orders and management Disposition Plan: icu Total Time Spent with Patient (Minutes): 60 History Interval history: This is a 85-year-old female with obesity, chronic low back pain, chronic UTI, muscle spasm, and depression who presents to the emergency department on 11/11 with complaints of nausea/vomiting and decreased p.o. intake for 1 week and complains of mild diarrhea. Patient is bedridden and nonambulatory and oriented to self. Her patient's daughter EMS was called to assess and they gave the patient IV fluids but did not transfer the patient. On 11/11 EMS was contacted again and due to persistent vomiting and apparent small amount of blood in vomit patient was transferred to [facility] for further evaluation and treatment. Upon presentation to the emergency department patient was hypoxic on room air with SPO2 of 88 to 90% and continue to have emesis. Work-up in the emergency department revealed leukocytosis, thrombocytosis, acute hypoxic respiratory failure, SIRS. Patient was admitted as a COVID-19 PUI with acute hypoxic respiratory failure. 11/12/2020 Patient doing well, Discussed with daughter at length about her prognosis and treatment, No nausea vomiting since morning Coronavirus PCR came positive 11/13/2020 Patient coded last night and was intubated, ROSC. Patient on vent, Flight Readiness Technician consult and ID consult 11/14/2020 Patient intubated, Weaning in progress 11/15/2020; patient remains intubated, on vasopressors for septic shock. Critically ill, poor prognosis, discussed with daughter Kirstin who understands the severity of illness, she wants to talk to the family. If the family agrees she is considering DNR/withdrawal of care, I informed patient's nurse 11/16/2020; Patient remains intubated, on Levophed, Severe sepsis due to COVID-19 pneumonia, critically ill, on heparin drip 11/17/2020; Patient remains critically ill. Septic shock on norepinephrine. Intubated on vent, Very poor prognosis Family unable to decide the goals of treatment CODE STATUS; Recommend palliative care/hospice 11/18: PICC team consulted for placement of PICC, patient noted to have minimal output from NG tube and tube feeding will be restarted, patient will be left with Reglan. CCM decrease PEEP. Hypocalcemia and hypomagnesemia repleted. 11/19: Patient's H/H is trending down, having dark stools via FMS and GI was consulted today. Placed on PPI and NG tube to low normal suction, start stool guaiac positive. Per CCM discontinue Lind catheter. Patient will now be on every 6 H&H and will to be transfused with 2 units PRBC. Long family meeting conducted today with hospitalist, CCM and administration. 11/20: GI at bedside to perform endoscopy, patient's blood pressure has been labile today and RN has been going up and down on vasopressors. Patient is still having melena and received 1 unit PRBC yesterday evening. 11/21: Patient midnight h/h noted to be 10/30 this morning from 12/31 prior and two units prbc were ordered. Repeat hbg 6.05/01. Patient had a cardiac arrest today (see event note/code sheet for details). Received 2 additional prbc and 1 ffp. Coags pending. Family updated and code status changed. 11/22: H/H remains stable, pt remains on vasopressors and having melana. Thrombocytopenic today and 1 unit plts ordered. HIT ordered. 11/23: Patient's H/H this morning dropped to 9.6/28.8 from . Patient remains alkalotic, hyponatremic and hypokalemic. Patient's IV fluids changed to calcium repleted. Patient remains on vasopressors. I updated daughter Kirstin today 11/24: Hypokalemia which was repleted. Plts 28 and given plts today/INR 1.95-> given FFP. Disposition Plan: icu Total Time Spent with Patient (Minutes): 60 History Interval history: no acute events Hospitalist Physical - Constitutional Vitals: Temp Pulse Resp BP Pulse Ox 96.6 F L 78 22 190/71 98 11/25/20 08:00 11/25/20 10:15 11/25/20 10:15 11/25/20 07:50 11/25/20 10:15 General appearance: Present: no acute distress, other (Intubated, not interactive) - EENT ENT: clear oral mucosa - Neck Neck: Present: supple - Respiratory Respiratory effort: normal - Cardiovascular Rhythm: regular Heart Sounds: Present: S1 & S2 - Extremities Extremities: no ischemia Peripheral Pulses: within normal limits - Abdominal General gastrointestinal: soft - Integumentary Integumentary: Present: clear, dry - Psychiatric Psychiatric: other - Neurologic Neurologic: other - Allied Health Allied health notes reviewed: nursing, RT, social work, case management HEART Score - HEART Score Age: > 65 Risk factors: 1-2 risk factors Troponin: Troponin T < 0.010 ng/mL (0.00-0.029) 11/11/20 13:39 - Critical Actions Critical Actions: 0-3 pts:0.9-1.7%risk of adverse cardiac event.Candidate for discharge Results - Labs CBC & Chem 7: 11/25/20 12:00 11/25/20 12:00 Labs: Laboratory Last Values WBC 6.3 K/mm3 (4.5-11.0) 11/24/20 05:30 RBC 3.66 M/mm3 (3.65-5.03) 11/24/20 05:30 Hgb 10.9 gm/dl (10.1-14.3) 11/24/20 05:30 Hct 32.6 % (30.3-42.9) 11/24/20 05:30 MCV 89 fl (79-97) 11/24/20 05:30 MCH 30 pg (28-32) 11/24/20 05:30 MCHC 34 % (30-34) 11/24/20 05:30 RDW 16.2 % (13.2-15.2) H 11/24/20 05:30 Plt Count 28 K/mm3 (140-440) L 11/24/20 05:30 Lymph % (Auto) 5.7 % (13.4-35.0) L 11/13/20 05:23 [place] % (Auto) 9.0 % (0.0-7.3) H 11/13/20 05:23 Eos % (Auto) 0.0 % (0.0-4.3) 11/13/20 05:23 Baso % (Auto) 0.0 % (0.0-1.8) 11/13/20 05:23 Lymph # (Auto) 0.9 K/mm3 (1.2-5.4) L 11/13/20 05:23 [place] # (Auto) 1.4 K/mm3 (0.0-0.8) H 11/13/20 05:23 Eos # (Auto) 0.0 K/mm3 (0.0-0.4) 11/13/20 05:23 Baso # (Auto) 0.0 K/mm3 (0.0-0.1) 11/13/20 05:23 Add Manual Diff Complete 11/20/20 04:09 Total Counted 100 11/20/20 04:09 Seg Neutrophils % 85.3 % (40.0-70.0) H 11/13/20 05:23 Seg Neuts % (Manual) 77.0 % (40.0-70.0) H 11/20/20 04:09 Band Neutrophils % 13.0 % 11/20/20 04:09 Lymphocytes % (Manual) 3.0 % (13.4-35.0) L 11/20/20 04:09 Monocytes % (Manual) 3.0 % (0.0-7.3) 11/20/20 04:09 Metamyelocytes % 4.0 % 11/20/20 04:09 Nucleated RBC % Not Reportable 11/20/20 04:09 Seg Neutrophils # 13.6 K/mm3 (1.8-7.7) H 11/13/20 05:23 Seg Neutrophils # Man 16.1 K/mm3 (1.8-7.7) H 11/20/20 04:09 Band Neutrophils # 2.7 K/mm3 11/20/20 04:09 Lymphocytes # (Manual) 0.6 K/mm3 (1.2-5.4) L 11/20/20 04:09 Abs React Lymphs (Man) 0.0 K/mm3 11/20/20 04:09 Monocytes # (Manual) 0.6 K/mm3 (0.0-0.8) 11/20/20 04:09 Eosinophils # (Manual) 0.0 K/mm3 (0.0-0.4) 11/20/20 04:09 Basophils # (Manual) 0.0 K/mm3 (0.0-0.1) 11/20/20 04:09 Metamyelocytes # 0.8 K/mm3 11/20/20 04:09 Myelocytes # 0.0 K/mm3 11/20/20 04:09 Promyelocytes # 0.0 K/mm3 11/20/20 04:09 Blast Cells # 0.0 K/mm3 11/20/20 04:09 WBC Morphology Not Reportable 11/20/20 04:09 Hypersegmented Neuts Not Reportable 11/20/20 04:09 Hyposegmented Neuts Not Reportable 11/20/20 04:09 Hypogranular Neuts Not Reportable 11/20/20 04:09 Smudge Cells Not Reportable 11/20/20 04:09 Toxic Granulation Not Reportable 11/20/20 04:09 Toxic Vacuolation Not Reportable 11/20/20 04:09 Dohle Bodies Not Reportable 11/20/20 04:09 Pelger-Huet Anomaly Not Reportable 11/20/20 04:09 Vernell Rods Not Reportable 11/20/20 04:09 Platelet Estimate Consistent w auto 11/20/20 04:09 Clumped Platelets Not Reportable 11/20/20 04:09 Plt Clumps, EDTA Not Reportable 11/20/20 04:09 Large Platelets Not Reportable 11/20/20 04:09 Giant Platelets Not Reportable 11/20/20 04:09 Platelet Satelliting Not Reportable 11/20/20 04:09 Plt Morphology Comment Not Reportable 11/20/20 04:09 RBC Morphology Not Reportable 11/20/20 04:09 Dimorphic RBCs Not Reportable 11/20/20 04:09 Polychromasia Few 11/20/20 04:09 Hypochromasia Few 11/20/20 04:09 Poikilocytosis Not Reportable 11/20/20 04:09 Anisocytosis Not Reportable 11/20/20 04:09 Microcytosis Not Reportable 11/20/20 04:09 Macrocytosis Not Reportable 11/20/20 04:09 Spherocytes Not Reportable 11/20/20 04:09 Pappenheimer Bodies Not Reportable 11/20/20 04:09 Sickle Cells Not Reportable 11/20/20 04:09 Target Cells Not Reportable 11/20/20 04:09 Tear Drop Cells Not Reportable 11/20/20 04:09 Ovalocytes Not Reportable 11/20/20 04:09 Helmet Cells Not Reportable 11/20/20 04:09 [place] Bodies Not Reportable 11/20/20 04:09 [place] Rings Not Reportable 11/20/20 04:09 Vitaliy Cells Not Reportable 11/20/20 04:09 Bite Cells Not Reportable 11/20/20 04:09 Crenated Cell Not Reportable 11/20/20 04:09 Elliptocytes Not Reportable 11/20/20 04:09 Acanthocytes (Spur) Not Reportable 11/20/20 04:09 Rouleaux Not Reportable 11/20/20 04:09 Hemoglobin C Crystals Not Reportable 11/20/20 04:09 Schistocytes Not Reportable 11/20/20 04:09 Malaria parasites Not Reportable 11/20/20 04:09 Mauro Bodies Not Reportable 11/20/20 04:09 Hem Pathologist Commnt No 11/20/20 04:09 PT 22.8 Sec. (12.2-14.9) H 11/24/20 05:30 INR 1.95 (0.87-1.13) H 11/24/20 05:30 APTT 31.7 Sec. (24.2-36.6) 11/24/20 05:30 Fibrinogen 200 mg/dl (211-480) L 11/22/20 02:00 D-Dimer 2825.65 ng/mlDDU (0-234) H 11/24/20 05:30 Heparin Anti-Xa Level 1.24 U.I./ml (0.3-0.7) H 11/21/20 11:12 ABG pH 7.508 pH Units (7.350-7.450) H 11/25/20 04:00 POC ABG pCO2 31.7 mmHg (32.0-48.0) L 11/24/20 04:00 ABG pCO2 27.1 mm Hg 11/25/20 04:00 POC ABG pO2 75.3 mmHg (83-108) L 11/24/20 04:00 ABG pO2 90.8 mm Hg (80.0-90.0) H 11/25/20 04:00 POC ABG HCO3 24.6 11/24/20 04:00 ABG HCO3 21.0 mmol/L (20.0-26.0) 11/25/20 04:00 ABG O2 Saturation 97.6 % (95.0-99.0) 11/25/20 04:00 ABG O2 Content 10.1 (0.0-44) 11/25/20 04:00 POC ABG Base Excess 1.9 11/24/20 04:00 ABG Base Excess -1.6 mmol/L (-2.0-3.0) 11/25/20 04:00 ABG Hemoglobin 7.3 gm/dl (12.0-16.0) L 11/25/20 04:00 ABG Oxyhemoglobin 94.9 (94-98) 11/24/20 04:00 ABG Carboxyhemoglobin 1.0 % (0.0-5.0) 11/25/20 04:00 ABG Methemoglobin 0.5 % (0.0-1.5) 11/25/20 04:00 ABG Sodium 145.3 mmol/L (136.0-145.0) H 11/24/20 04:00 ABG Potassium 2.8 mmol/L (3.40-4.50) L 11/24/20 04:00 ABG Chloride 112.0 mmol/L (98-107) H 11/24/20 04:00 ABG Glucose 119 mg/dL (65-95) H 11/24/20 04:00 Oxyhemoglobin 96.1 % (95.0-99.0) 11/25/20 04:00 Carboxyhemoglobin 0.5 (0.5-1.5) 11/24/20 04:00 FiO2 40 % 11/25/20 04:00 FiO2 % 40.0 11/24/20 04:00 Sodium 151 mmol/L (137-145) H 11/24/20 05:30 Potassium 4.2 mmol/L (3.6-5.0) D 11/24/20 Unknown Chloride 113.8 mmol/L (98-107) H 11/24/20 05:30 Carbon Dioxide 26 mmol/L (22-30) 11/24/20 05:30 Anion Gap 14 mmol/L 11/24/20 05:30 BUN 75 mg/dL (7-17) H 11/24/20 05:30 Creatinine 1.8 mg/dL (0.6-1.2) H 11/24/20 05:30 Estimated GFR 27 ml/min 11/24/20 05:30 BUN/Creatinine Ratio 42 % 11/24/20 05:30 Glucose 117 mg/dL (65-100) H 11/24/20 05:30 POC Glucose 104 mg/dL (70-105) 11/25/20 05:15 Hemoglobin A1c 6.6 % (4-6) H 11/12/20 05:07 Lactic Acid 5.20 mmol/L (0.7-2.0) H* 11/22/20 Unknown Calcium 6.6 mg/dL (8.4-10.2) L 11/24/20 05:30 Phosphorus 3.70 mg/dL (2.5-4.5) 11/24/20 05:30 Magnesium 2.00 mg/dL (1.7-2.3) 11/24/20 05:30 Ferritin 531.5 ng/mL (10.0-200.0) H 11/24/20 05:30 Total Bilirubin 1.00 mg/dL (0.1-1.2) 11/24/20 05:30 AST 216 units/L (5-40) H 11/24/20 05:30 ALT 5 units/L (7-56) L 11/24/20 05:30 Alkaline Phosphatase 60 units/L (35-129) 11/24/20 05:30 Lactate Dehydrogenase 1131 units/L (91-180) H 11/21/20 09:53 Troponin T < 0.010 ng/mL (0.00-0.029) 11/11/20 13:39 C-Reactive Protein 0.00 mg/dL (0.00-1.30) 11/24/20 05:30 Total Protein 4.0 g/dL (6.3-8.2) L 11/24/20 05:30 Albumin < 0.2 g/dL (3.9-5) L 11/24/20 05:30 Albumin/Globulin Ratio 0.8 % 11/24/20 05:30 Lipase 55 units/L (13-60) 11/11/20 13:39 Procalcitonin < 0.05 ng/mL (<0.15) 11/11/20 16:59 Arterial Blood Glucose 119 mg/dL (65-95) H 11/24/20 04:00 Arterial Blood Ionized Calcium 3.8 mg/dL (4.6-5.3) L 11/24/20 04:00 Urine Color Janay (Yellow) 11/19/20 23:45 Urine Turbidity Cloudy (Clear) 11/19/20 23:45 Urine pH 5.0 (5.0-7.0) 11/19/20 23:45 Ur Specific [place] 1.015 (1.003-1.030) 11/19/20 23:45 Urine Protein 100 mg/dl mg/dL (Negative) 11/19/20 23:45 Urine Glucose (UA) Neg mg/dL (Negative) 11/19/20 23:45 Urine Ketones Neg mg/dL (Negative) 11/19/20 23:45 Urine Blood Lg (Negative) 11/19/20 23:45 Urine Nitrite Neg (Negative) 11/19/20 23:45 Ur Reducing Substances TNR 11/14/20 06:15 Urine Bilirubin Neg (Negative) 11/19/20 23:45 Urine Ictotest TNR 11/14/20 06:15 Urine Urobilinogen < 2.0 mg/dL (<2.0) 11/19/20 23:45 Ur Leukocyte Esterase Mod (Negative) 11/19/20 23:45 Urine WBC (Auto) > 182.0 /HPF (0.0-6.0) H 11/19/20 23:45 Urine RBC (Auto) > 182.0 /HPF (0.0-6.0) 11/19/20 23:45 U Epithel Cells (Auto) 3.0 /HPF (0-13.0) 11/19/20 23:45 Urine Bacteria (Auto) 4+ /HPF (Negative) 11/19/20 23:45 Urine WBC Clumps 3+ /HPF 11/14/20 06:15 Ur Transition Epith Cell 4 /HPF 11/19/20 23:45 Urine Mucus Few /HPF 11/19/20 23:45 Ur Yeast w Hyphae 2+ /HPF 11/19/20 23:45 Urine Yeast (Budding) 3+ /HPF 11/19/20 23:45 Urine Creatinine 80.2 mg/dL (0.1-20.0) H 11/14/20 06:15 Urine Sodium 28 mmol/L 11/14/20 06:15 Vancomycin Trough 35.2 ug/mL (5.0-20.0) H 11/24/20 15:00 Coronavirus (PCR) Positive (Negative) A 11/11/20 Unknown Blood Type A POSITIVE 11/19/20 19:45 Antibody Screen Negative 11/19/20 19:45 Crossmatch See Detail 11/19/20 19:45 Lind/IV: Voiding Method External Female Catheter Active Medications - Current Medications Current Medications: Generic Name Dose Route Start Last Admin Trade Name Freq PRN Reason Stop Dose Admin Acetaminophen 650 mg 11/11/20 22:11 11/19/20 11:30 Acetaminophen 325 Mg Tab PO 650 mg Q4H PRN Administration Pain MILD(1-3)/Fever >100.5/ERAZO Albuterol 2.5 mg 11/13/20 07:40 Albuterol 2.5 Mg/3 Ml Nebu IH Q4HRT PRN Shortness Of Breath Lipase/Protease/Amylase 1 each 11/13/20 17:32 Lipase 10,500/Protease 25,000/Amylase 43,750 (Units) Dr Cap FEEDTUBE PRN PRN For Clogged Feeding Tube Ascorbic Acid 500 mg 11/13/20 22:00 11/25/20 10:27 Ascorbic Acid 500 Mg Tab PO Not Given BID CARLOS Dextrose 50 ml 11/13/20 16:43 11/25/20 02:12 Dextrose 50% In Water (25gm) 50 Ml Syringe IV 50 ml Q30MIN PRN Administration Hypoglycemia Protocol Fentanyl 50 mcg 11/13/20 05:33 Fentanyl 100 Mcg/2 Ml Inj IV Q10MIN PRN ANALGESIA Hydrophilic Ointment 1 applic 11/13/20 05:33 Lip Therapy Vaseline TP Q2HR PRN Dry Lips Fentanyl Citrate 2,000 mcg in 100 mls @ 3.81 mls/hr 11/13/20 06:00 11/21/20 15:00 Fentanyl Drip Premix IV 0 mcg/kg/hr TITR CARLOS 0 mls/hr Titration Protocol 1 MCG/KG/HR NORepinephrine/NS 8 MG-250 ML 8 mg in 250 mls @ 3.75 mls/hr 11/13/20 15:00 11/25/20 09:20 Norepinephrine/Ns 8 Mg-250 Ml (Double Conc) IV 8 mcg/min TITRATE CARLOS 15 mls/hr Titration Protocol 2 MCG/MIN Vasopressin 20 unit/ Sodium 101 mls @ 9.09 mls/hr 11/19/20 09:00 11/23/20 14:54 Chloride IV 0 units/min TITR CARLOS 0 mls/hr Titration Protocol 0.03 UNITS/MIN Phenylephrine HCl 100 mg/ 100 mls @ 3 mls/hr 11/21/20 08:15 11/21/20 17:53 Sodium Chloride IV 0 mcg/min TITR CARLOS 0 mls/hr Titration Protocol 50 MCG/MIN Epinephrine 16 mg/ Sodium 250 mls @ 1.875 mls/hr 11/21/20 11:00 11/22/20 01:00 Chloride IV 0 mcg/min TITR CARLOS 0 mls/hr Titration Protocol 2 MCG/MIN Pantoprazole Sodium 80 mg/ 100 mls @ 10 mls/hr 11/22/20 21:14 11/25/20 04:39 Sodium Chloride IV 11/25/20 14:00 8 mg/hr DIRECT CARLOS 10 mls/hr Administration 8 MG/HR Insulin Human Regular 0 units 11/21/20 00:00 11/25/20 05:51 Insulin Regular, Human 100 Units/1 Ml SUB-Q Not Given Q6HR [facility] Protocol Multi-Ingred Cream/Lotion/Oil/Oint 1 applic 11/13/20 05:33 Mineral Oil/Petrolatum, White Ophth Oint 3.5 Gm OU Q4HR PRN Dry Eye(s) Pantoprazole Sodium 40 mg 11/25/20 22:00 Pantoprazole 40 Mg Inj IV BID CARLOS Simple Syrup 15 ml 11/13/20 17:32 Simple Syrup 15 Ml FEEDTUBE PRN PRN Hypoglycemia Simple Syrup 30 ml 11/13/20 17:32 Simple Syrup 15 Ml FEEDTUBE PRN PRN Hypoglycemia Sodium Bicarbonate 325 mg 11/13/20 17:32 Sodium Bicarbonate 325 Mg Tab FEEDTUBE PRN PRN For Clogged Feeding Tube Sodium Chloride 10 ml 11/12/20 10:00 11/25/20 08:49 Sodium Chloride 0.9% 10 Ml Flush Syringe IV Not Given BID CARLOS Sodium Chloride 10 ml 11/11/20 22:11 11/22/20 20:50 Sodium Chloride 0.9% 10 Ml Flush Syringe IV 10 ml PRN PRN Administration LINE FLUSH Zinc Sulfate 220 mg 11/13/20 22:00 11/25/20 10:27 Zinc Sulfate 220 Mg Cap PO Not Given BID [facility] Nutrition/Malnutrition Assess - Dietary Evaluation Nutrition/Malnutrition Findings: Nutrition Notes Start: 11/13/20 17:25 Freq: Status: Active Protocol: Document 11/22/20 11:22 (Rec: 11/22/20 11:24 [id number]) Nutrition Notes Initial or Follow up Brief Note Current Diagnosis Sepsis,Respiratory Failure Other Pertinent Diagnosis GIB, COVID-19 (+), Dehydration , (L) renal stone Current Diet Vital AF 1.2 at 50 ml/hr Subjective/Other Information Pt suffered code yesterday. TF is off per GI until pt is more stable. Nutrition Intervention Follow-Up By: 11/26/20 Additional Comments F/u: TF restart and tolerance - Attestation Statement I have reviewed and agreed w/ Malnutrition eval & tx plan: Yes
--- NOTE | 2020-11-25 12:16 | Progress Note ---
Assessment and Plan Acute hypoxemic respiratory failure on MVS COVID-19 infection Pneumonia Severe Sepsis Acute toxic metabolic encephalopathy Inadvertently placed left carotid line Acute kidney injury Nephrolithiasis Leukocytosis Metabolic acidosis Mild hypernatremia - replaced Potassium (KCL 40 meq p.o. & IV X 1) - begin tube feeds and advance to goal rate as tolerated - placed on PSV trial with p-supp at 16 cm H2O - get ABG after 2 hours - pull R. groin CVL - wound care consult placed for sacral wound - resume D51/2NS @ 75 mls/hr X 2 liters re: hypotension and hypernatremia - repeat INR - Hematology input appreciated - continue to hold CT angio abd & Pelvis till more as long as H&H stable and no gross bleeding - continue to hold anticoagulation re: risk benefit ratio - changed to BID PPI dosing - continue to wean vasopressors for MAP > 65 mmHg - continue care as below otherwise; - continue Daily SAT and SBT assessment as tolerated - continue to wean supplemental oxygen for target O2 sat's > 90% acutely - VAP bundle addressed - continue lung protective strategies - continue bronchodilators with pulmonary hygiene per RT - wean per pulmonary driven protocols otherwise - continue accuchecks with glycemic control per SSI (While critically ill target blood glucose of 140-180 mg/dL; avoid hypoglycemia) - sedation prn for target RASS 0 to -1 - avoid nephrotoxins, renally dose all medications - continue to avoid benzodiazepine's, reduce the possibility of delirium - AB's per ID rec's - prn analgesia per CPOT score - Maintenance of sleep-wake cycle, avoid delirium - continue enteral nutritional support at goal rate as tolerated - G.I. & VTE prophylaxis - PT/OT/ROM exercises - continue mobility protocols for pressure ulcer prophylaxis - Monitor hemodynamics closely - continue other care per attending / other consultants - discharge planning ongoing concurrently COVID SPECIFIC INTERVENTIONS - Remdesivir as per ID/Pulmonary developed protocols - continue systemic steroids for severe COVID-19 infection - s/p Actemra - follow repeat COVID tests results - zinc and vitamin C supplementation - Monitor inflammatory markers per facility protocol - ferritin, Ddimer, CRP - therapeutic anticoagulation per system Protocol based on d-dimer and clinical considerations (re: Carotid artery thrombus) - Continue contact and airborne isolation .... Re-evaluate in am & prn CONDITION: CRITICAL PROGNOSIS: GUARDED CODE STATUS: DNR/AND The high probability of a clinically significant, sudden or life-threatening deterioration of the [respiratory, cardiovascular, renal & neurologic] system(s) required my full and direct attention, intervention and personal management. The aggregate critical care time was [36] minutes without overlap. Time includes spent on; [x] Data Review and interpretation [x] Patient assessment and monitoring of vital signs [x] Documentation [x] Medication orders and management Subjective Date of service: 11/25/20 Principal diagnosis: Ac hypoxemic resp failure; COVID-19 infxn; Pneumonia; KATLYN; AMS; Sepsis Interval history: Patient is seen today for: Acute hypoxemic respiratory failure; COVID-19 infxn; Pneumonia; Acute toxic metabolic encephalopathy; Carotid Artery thrombus; KATLYN; Leukocytosis Seen and examined at bedside; 24hour events reviewed; nursing and respiratory care staff consulted; no adverse overnight events reported to me; resting in bed; remains on MVS; AMS is persistent; no more clinical GI bleeding; cleared for enteral feeds; potassium low; tolerated bedside SBT Objective Vital Signs - 12hr 11/25/20 11/25/20 11/25/20 00:31 00:45 01:01 Temperature Pulse Rate 76 73 75 Pulse Rate [ From Monitor] Respiratory 19 22 26 H Rate Blood Pressure O2 Sat by Pulse 99 100 100 Oximetry 11/25/20 11/25/20 11/25/20 01:15 01:31 01:45 Temperature Pulse Rate 74 70 67 Pulse Rate [ From Monitor] Respiratory 19 18 18 Rate Blood Pressure O2 Sat by Pulse 100 99 100 Oximetry 11/25/20 11/25/20 11/25/20 02:01 02:15 02:31 Temperature Pulse Rate 75 76 80 Pulse Rate [ From Monitor] Respiratory 25 H 23 24 Rate Blood Pressure O2 Sat by Pulse 99 100 100 Oximetry 11/25/20 11/25/20 11/25/20 02:45 03:01 03:15 Temperature Pulse Rate 77 82 81 Pulse Rate [ From Monitor] Respiratory 22 23 22 Rate Blood Pressure O2 Sat by Pulse 99 99 99 Oximetry 11/25/20 11/25/20 11/25/20 03:24 03:31 03:45 Temperature 97.2 F L Pulse Rate 80 74 Pulse Rate [ From Monitor] Respiratory 22 26 H Rate Blood Pressure O2 Sat by Pulse 99 99 Oximetry 11/25/20 11/25/20 11/25/20 04:00 04:01 04:15 Temperature Pulse Rate 78 74 73 Pulse Rate [ 72 From Monitor] Respiratory 29 H 21 Rate Blood Pressure 114/41 O2 Sat by Pulse 100 100 100 Oximetry 11/25/20 11/25/20 11/25/20 04:31 04:45 05:01 Temperature Pulse Rate 77 98 H Pulse Rate [ From Monitor] Respiratory 19 19 Rate Blood Pressure O2 Sat by Pulse 99 100 96 Oximetry 11/25/20 11/25/20 11/25/20 05:15 05:31 05:45 Temperature Pulse Rate 94 H 85 78 Pulse Rate [ From Monitor] Respiratory 14 16 16 Rate Blood Pressure O2 Sat by Pulse 97 98 99 Oximetry 11/25/20 11/25/20 11/25/20 06:01 06:15 06:31 Temperature Pulse Rate 81 84 80 Pulse Rate [ From Monitor] Respiratory 14 19 14 Rate Blood Pressure O2 Sat by Pulse 99 99 98 Oximetry 11/25/20 11/25/20 11/25/20 06:45 07:00 07:01 Temperature 96.8 F L Pulse Rate 77 83 Pulse Rate [ From Monitor] Respiratory 15 14 Rate Blood Pressure O2 Sat by Pulse 98 98 Oximetry 11/25/20 11/25/20 11/25/20 07:15 07:31 07:45 Temperature Pulse Rate 74 78 78 Pulse Rate [ From Monitor] Respiratory 20 22 18 Rate Blood Pressure O2 Sat by Pulse 99 97 99 Oximetry 11/25/20 11/25/20 11/25/20 07:50 08:00 08:01 Temperature 96.6 F L Pulse Rate 79 71 79 Pulse Rate [ From Monitor] Respiratory 22 Rate Blood Pressure 190/71 O2 Sat by Pulse 100 97 100 Oximetry 11/25/20 11/25/20 11/25/20 08:15 08:31 08:45 Temperature Pulse Rate 86 86 83 Pulse Rate [ From Monitor] Respiratory 22 18 24 Rate Blood Pressure O2 Sat by Pulse 99 99 99 Oximetry 11/25/20 11/25/20 11/25/20 09:01 09:15 09:31 Temperature Pulse Rate 86 82 82 Pulse Rate [ From Monitor] Respiratory 23 18 19 Rate Blood Pressure O2 Sat by Pulse 99 99 98 Oximetry 11/25/20 11/25/20 11/25/20 09:45 10:01 10:15 Temperature Pulse Rate 80 77 78 Pulse Rate [ From Monitor] Respiratory 24 18 22 Rate Blood Pressure O2 Sat by Pulse 98 98 98 Oximetry 11/25/20 11/25/20 11/25/20 10:31 10:45 11:01 Temperature Pulse Rate 83 77 81 Pulse Rate [ From Monitor] Respiratory 23 20 22 Rate Blood Pressure O2 Sat by Pulse 98 99 99 Oximetry 11/25/20 11/25/20 11/25/20 11:15 11:31 12:00 Temperature 96.6 F L Pulse Rate 78 78 Pulse Rate [ From Monitor] Respiratory 27 H 22 Rate Blood Pressure O2 Sat by Pulse 99 99 Oximetry Constitutional: appears uncomfortable, other (elderly obese female with mildly increased respiratory effort at rest on MVS) Eyes: non-icteric ENT: oropharynx moist, other (ETT 22 cm NYA) Neck: supple, no lymphadenopathy, no JVD Effort: mildly labored Ascultation: Bilateral: diminished breath sounds, rhonchi Percussion: Bilateral: not dull Cardiovascular: regular rate and rhythm, other (S1,S2) Gastrointestinal: normoactive bowel sounds, soft, non-tender, non-distended (protuberant) Integumentary: normal Extremities: no cyanosis, pink and warm, pulses normal, edema (peripheral), other (Right femoral CVL & A-line) Neurologic: pupils equal and round, unable to assess Psychiatric: other (unable to assess re: AMS) CBC and BMP: 11/25/20 12:00 11/25/20 12:00 ABG, PT/INR, D-dimer: ABG ABG pH 7.508 pH Units (7.350-7.450) H 11/25/20 04:00 POC ABG pCO2 31.7 mmHg (32.0-48.0) L 11/24/20 04:00 ABG pCO2 27.1 mm Hg 11/25/20 04:00 POC ABG pO2 75.3 mmHg (83-108) L 11/24/20 04:00 ABG pO2 90.8 mm Hg (80.0-90.0) H 11/25/20 04:00 POC ABG HCO3 24.6 11/24/20 04:00 ABG O2 Saturation 97.6 % (95.0-99.0) 11/25/20 04:00 PT/INR, D-dimer PT 22.8 Sec. (12.2-14.9) H 11/24/20 05:30 INR 1.95 (0.87-1.13) H 11/24/20 05:30 D-Dimer 2825.65 ng/mlDDU (0-234) H 11/24/20 05:30 Abnormal lab findings: Abnormal Labs 11/11/20 11/11/20 11/11/20 13:39 13:39 16:59 WBC 19.5 H RBC 5.93 H Hgb 17.0 H Hct 50.6 H RDW Plt Count 449 H Lymph % (Auto) 12.0 L Hayes % (Auto) 7.7 H Lymph # (Auto) Hayes # (Auto) 1.5 H Seg Neutrophils % 80.0 H Seg Neuts % (Manual) Lymphocytes % (Manual) Monocytes % (Manual) Seg Neutrophils # 15.6 H Seg Neutrophils # Man Lymphocytes # (Manual) Monocytes # (Manual) PT INR Fibrinogen D-Dimer 1525.92 H Heparin Anti-Xa Level ABG pH POC ABG pCO2 POC ABG pO2 ABG pO2 ABG Hemoglobin ABG Oxyhemoglobin ABG Sodium ABG Potassium ABG Chloride ABG Glucose Carboxyhemoglobin Sodium Potassium 3.5 L Chloride 97.3 L Carbon Dioxide BUN 30 H Creatinine 0.5 L Glucose 128 H POC Glucose Hemoglobin A1c Lactic Acid Calcium Phosphorus Magnesium Ferritin Total Bilirubin AST ALT Lactate Dehydrogenase C-Reactive Protein Total Protein Albumin 3.8 L Arterial Blood Glucose Arterial Blood Ionized Calcium Urine WBC (Auto) U Epithel Cells (Auto) Urine Creatinine Vancomycin Trough Coronavirus (PCR) Crossmatch 11/11/20 11/11/20 11/11/20 16:59 17:12 Unknown WBC RBC Hgb Hct RDW Plt Count Lymph % (Auto) Hayes % (Auto) Lymph # (Auto) Hayes # (Auto) Seg Neutrophils % Seg Neuts % (Manual) Lymphocytes % (Manual) Monocytes % (Manual) Seg Neutrophils # Seg Neutrophils # Man Lymphocytes # (Manual) Monocytes # (Manual) PT INR Fibrinogen D-Dimer Heparin Anti-Xa Level ABG pH 7.501 H POC ABG pCO2 POC ABG pO2 55.0 L ABG pO2 ABG Hemoglobin ABG Oxyhemoglobin 89.5 L ABG Sodium ABG Potassium 3.2 L ABG Chloride ABG Glucose 131 H Carboxyhemoglobin Sodium Potassium Chloride Carbon Dioxide BUN Creatinine Glucose 117 H POC Glucose Hemoglobin A1c Lactic Acid Calcium Phosphorus Magnesium Ferritin Total Bilirubin AST ALT Lactate Dehydrogenase 204 H C-Reactive Protein Total Protein Albumin Arterial Blood Glucose 131 H Arterial Blood Ionized Calcium Urine WBC (Auto) U Epithel Cells (Auto) Urine Creatinine Vancomycin Trough Coronavirus (PCR) Positive A Crossmatch 11/12/20 11/12/20 11/12/20 05:07 05:07 05:07 WBC 16.7 H RBC 5.74 H Hgb 16.6 H Hct 50.3 H RDW Plt Count 450 H Lymph % (Auto) 12.1 L Hayes % (Auto) 7.5 H Lymph # (Auto) Hayes # (Auto) 1.3 H Seg Neutrophils % 77.9 H Seg Neuts % (Manual) Lymphocytes % (Manual) Monocytes % (Manual) Seg Neutrophils # 13.0 H Seg Neutrophils # Man Lymphocytes # (Manual) Monocytes # (Manual) PT INR Fibrinogen D-Dimer Heparin Anti-Xa Level ABG pH POC ABG pCO2 POC ABG pO2 ABG pO2 ABG Hemoglobin ABG Oxyhemoglobin ABG Sodium ABG Potassium ABG Chloride ABG Glucose Carboxyhemoglobin Sodium 147 H Potassium Chloride Carbon Dioxide 35 H D BUN 34 H Creatinine Glucose 117 H POC Glucose Hemoglobin A1c 6.6 H Lactic Acid Calcium 11.1 H Phosphorus Magnesium Ferritin Total Bilirubin AST ALT Lactate Dehydrogenase C-Reactive Protein Total Protein Albumin Arterial Blood Glucose Arterial Blood Ionized Calcium Urine WBC (Auto) U Epithel Cells (Auto) Urine Creatinine Vancomycin Trough Coronavirus (PCR) Crossmatch 11/12/20 11/13/20 11/13/20 23:58 01:36 04:00 WBC RBC Hgb Hct RDW Plt Count Lymph % (Auto) Hayes % (Auto) Lymph # (Auto) Hayes # (Auto) Seg Neutrophils % Seg Neuts % (Manual) Lymphocytes % (Manual) Monocytes % (Manual) Seg Neutrophils # Seg Neutrophils # Man Lymphocytes # (Manual) Monocytes # (Manual) PT INR Fibrinogen D-Dimer Heparin Anti-Xa Level ABG pH POC ABG pCO2 POC ABG pO2 ABG pO2 ABG Hemoglobin ABG Oxyhemoglobin ABG Sodium 147.3 H ABG Potassium 3.2 L ABG Chloride 109.0 H ABG Glucose 118 H Carboxyhemoglobin 0.3 L Sodium Potassium 3.1 L Chloride Carbon Dioxide BUN 64 H Creatinine 2.2 H D Glucose 105 H POC Glucose 181 H Hemoglobin A1c Lactic Acid Calcium 8.3 L D Phosphorus Magnesium Ferritin Total Bilirubin AST 366 H ALT 316 H Lactate Dehydrogenase C-Reactive Protein Total Protein 5.4 L D Albumin 2.5 L Arterial Blood Glucose 118 H Arterial Blood Ionized Calcium Urine WBC (Auto) U Epithel Cells (Auto) Urine Creatinine Vancomycin Trough Coronavirus (PCR) Crossmatch 11/13/20 11/13/20 11/13/20 05:23 08:22 09:51 WBC 15.9 H RBC Hgb Hct 44.4 H RDW Plt Count Lymph % (Auto) 5.7 L Hayes % (Auto) 9.0 H Lymph # (Auto) 0.9 L Hayes # (Auto) 1.4 H Seg Neutrophils % 85.3 H Seg Neuts % (Manual) Lymphocytes % (Manual) Monocytes % (Manual) Seg Neutrophils # 13.6 H Seg Neutrophils # Man Lymphocytes # (Manual) Monocytes # (Manual) PT 16.0 H INR 1.23 H Fibrinogen D-Dimer Heparin Anti-Xa Level ABG pH 7.243 L POC ABG pCO2 POC ABG pO2 82.0 L ABG pO2 ABG Hemoglobin ABG Oxyhemoglobin 93.5 L ABG Sodium 146.6 H ABG Potassium 2.8 L ABG Chloride 114.0 H ABG Glucose 113 H Carboxyhemoglobin 0.4 L Sodium Potassium Chloride Carbon Dioxide BUN Creatinine Glucose POC Glucose Hemoglobin A1c Lactic Acid Calcium Phosphorus Magnesium Ferritin Total Bilirubin AST ALT Lactate Dehydrogenase C-Reactive Protein Total Protein Albumin Arterial Blood Glucose 113 H Arterial Blood Ionized Calcium Urine WBC (Auto) U Epithel Cells (Auto) Urine Creatinine Vancomycin Trough Coronavirus (PCR) Crossmatch 11/13/20 11/13/20 11/13/20 09:51 09:51 09:51 WBC RBC Hgb Hct RDW Plt Count Lymph % (Auto) Hayes % (Auto) Lymph # (Auto) Hayes # (Auto) Seg Neutrophils % Seg Neuts % (Manual) Lymphocytes % (Manual) Monocytes % (Manual) Seg Neutrophils # Seg Neutrophils # Man Lymphocytes # (Manual) Monocytes # (Manual) PT INR Fibrinogen D-Dimer 5682.19 H Heparin Anti-Xa Level ABG pH POC ABG pCO2 POC ABG pO2 ABG pO2 ABG Hemoglobin ABG Oxyhemoglobin ABG Sodium ABG Potassium ABG Chloride ABG Glucose Carboxyhemoglobin Sodium Potassium Chloride Carbon Dioxide BUN Creatinine Glucose 104 H POC Glucose Hemoglobin A1c Lactic Acid Calcium Phosphorus Magnesium Ferritin 1003.0 H Total Bilirubin AST ALT Lactate Dehydrogenase 1022 H C-Reactive Protein 5.50 H Total Protein Albumin Arterial Blood Glucose Arterial Blood Ionized Calcium Urine WBC (Auto) U Epithel Cells (Auto) Urine Creatinine Vancomycin Trough Coronavirus (PCR) Crossmatch 11/13/20 11/14/20 11/14/20 21:50 00:50 04:25 WBC RBC Hgb Hct RDW Plt Count Lymph % (Auto) Hayes % (Auto) Lymph # (Auto) Hayes # (Auto) Seg Neutrophils % Seg Neuts % (Manual) Lymphocytes % (Manual) Monocytes % (Manual) Seg Neutrophils # Seg Neutrophils # Man Lymphocytes # (Manual) Monocytes # (Manual) PT INR Fibrinogen D-Dimer Heparin Anti-Xa Level 0.91 H ABG pH 7.215 L POC ABG pCO2 POC ABG pO2 ABG pO2 ABG Hemoglobin ABG Oxyhemoglobin ABG Sodium 147.3 H ABG Potassium ABG Chloride 119.0 H ABG Glucose 156 H Carboxyhemoglobin Sodium Potassium Chloride Carbon Dioxide BUN Creatinine Glucose POC Glucose 59 L Hemoglobin A1c Lactic Acid Calcium Phosphorus Magnesium Ferritin Total Bilirubin AST ALT Lactate Dehydrogenase C-Reactive Protein Total Protein Albumin Arterial Blood Glucose 156 H Arterial Blood Ionized Calcium 4.3 L Urine WBC (Auto) U Epithel Cells (Auto) Urine Creatinine Vancomycin Trough Coronavirus (PCR) Crossmatch 11/14/20 11/14/20 11/14/20 04:35 04:35 06:15 WBC RBC Hgb Hct 43.9 H RDW 15.3 H Plt Count Lymph % (Auto) Hayes % (Auto) Lymph # (Auto) Hayes # (Auto) Seg Neutrophils % Seg Neuts % (Manual) Lymphocytes % (Manual) Monocytes % (Manual) Seg Neutrophils # Seg Neutrophils # Man Lymphocytes # (Manual) Monocytes # (Manual) PT INR Fibrinogen D-Dimer Heparin Anti-Xa Level ABG pH POC ABG pCO2 POC ABG pO2 ABG pO2 ABG Hemoglobin ABG Oxyhemoglobin ABG Sodium ABG Potassium ABG Chloride ABG Glucose Carboxyhemoglobin Sodium 151 H D Potassium Chloride 116.8 H Carbon Dioxide 18 L BUN 64 H Creatinine 2.1 H Glucose 148 H POC Glucose Hemoglobin A1c Lactic Acid Calcium 7.3 L Phosphorus Magnesium Ferritin Total Bilirubin AST ALT Lactate Dehydrogenase C-Reactive Protein 38.00 H Total Protein Albumin Arterial Blood Glucose Arterial Blood Ionized Calcium Urine WBC (Auto) > 182.0 H U Epithel Cells (Auto) 24.0 H Urine Creatinine Vancomycin Trough Coronavirus (PCR) Crossmatch 11/14/20 11/14/20 11/14/20 06:15 06:15 12:01 WBC RBC Hgb Hct RDW Plt Count Lymph % (Auto) Hayes % (Auto) Lymph # (Auto) Hayes # (Auto) Seg Neutrophils % Seg Neuts % (Manual) Lymphocytes % (Manual) Monocytes % (Manual) Seg Neutrophils # Seg Neutrophils # Man Lymphocytes # (Manual) Monocytes # (Manual) PT INR Fibrinogen D-Dimer Heparin Anti-Xa Level 1.16 H ABG pH POC ABG pCO2 POC ABG pO2 ABG pO2 ABG Hemoglobin ABG Oxyhemoglobin ABG Sodium ABG Potassium ABG Chloride ABG Glucose Carboxyhemoglobin Sodium Potassium Chloride Carbon Dioxide BUN Creatinine Glucose POC Glucose 107 H Hemoglobin A1c Lactic Acid Calcium Phosphorus Magnesium Ferritin Total Bilirubin AST ALT Lactate Dehydrogenase C-Reactive Protein Total Protein Albumin Arterial Blood Glucose Arterial Blood Ionized Calcium Urine WBC (Auto) U Epithel Cells (Auto) Urine Creatinine 80.2 H Vancomycin Trough Coronavirus (PCR) Crossmatch 11/14/20 11/14/20 11/14/20 17:18 23:00 23:25 WBC RBC Hgb Hct RDW Plt Count Lymph % (Auto) Hayes % (Auto) Lymph # (Auto) Hayes # (Auto) Seg Neutrophils % Seg Neuts % (Manual) Lymphocytes % (Manual) Monocytes % (Manual) Seg Neutrophils # Seg Neutrophils # Man Lymphocytes # (Manual) Monocytes # (Manual) PT INR Fibrinogen D-Dimer Heparin Anti-Xa Level 0.96 H ABG pH POC ABG pCO2 POC ABG pO2 ABG pO2 ABG Hemoglobin ABG Oxyhemoglobin ABG Sodium ABG Potassium ABG Chloride ABG Glucose Carboxyhemoglobin Sodium Potassium Chloride Carbon Dioxide BUN Creatinine Glucose POC Glucose 173 H 158 H Hemoglobin A1c Lactic Acid Calcium Phosphorus Magnesium Ferritin Total Bilirubin AST ALT Lactate Dehydrogenase C-Reactive Protein Total Protein Albumin Arterial Blood Glucose Arterial Blood Ionized Calcium Urine WBC (Auto) U Epithel Cells (Auto) Urine Creatinine Vancomycin Trough Coronavirus (PCR) Crossmatch 11/15/20 11/15/20 11/15/20 01:45 04:57 04:57 WBC RBC Hgb Hct RDW 16.2 H Plt Count Lymph % (Auto) Hayes % (Auto) Lymph # (Auto) Hayes # (Auto) Seg Neutrophils % Seg Neuts % (Manual) Lymphocytes % (Manual) Monocytes % (Manual) Seg Neutrophils # Seg Neutrophils # Man Lymphocytes # (Manual) Monocytes # (Manual) PT INR Fibrinogen D-Dimer Heparin Anti-Xa Level ABG pH 7.246 L POC ABG pCO2 28.4 L POC ABG pO2 ABG pO2 ABG Hemoglobin ABG Oxyhemoglobin ABG Sodium ABG Potassium ABG Chloride 116.0 H ABG Glucose 164 H Carboxyhemoglobin Sodium 147 H Potassium Chloride 114.0 H Carbon Dioxide 16 L BUN 68 H Creatinine 2.4 H Glucose 148 H POC Glucose Hemoglobin A1c Lactic Acid Calcium 7.3 L Phosphorus Magnesium Ferritin Total Bilirubin AST 395 H ALT 396 H Lactate Dehydrogenase 596 H C-Reactive Protein 34.50 H Total Protein 5.1 L Albumin 2.1 L Arterial Blood Glucose 164 H Arterial Blood Ionized Calcium 4.3 L Urine WBC (Auto) U Epithel Cells (Auto) Urine Creatinine Vancomycin Trough Coronavirus (PCR) Crossmatch 11/15/20 11/15/20 11/15/20 04:57 04:57 05:20 WBC RBC Hgb Hct RDW Plt Count Lymph % (Auto) Hayes % (Auto) Lymph # (Auto) Hayes # (Auto) Seg Neutrophils % Seg Neuts % (Manual) Lymphocytes % (Manual) Monocytes % (Manual) Seg Neutrophils # Seg Neutrophils # Man Lymphocytes # (Manual) Monocytes # (Manual) PT INR Fibrinogen D-Dimer 3313.42 H Heparin Anti-Xa Level 0.81 H ABG pH POC ABG pCO2 POC ABG pO2 ABG pO2 ABG Hemoglobin ABG Oxyhemoglobin ABG Sodium ABG Potassium ABG Chloride ABG Glucose Carboxyhemoglobin Sodium Potassium Chloride Carbon Dioxide BUN Creatinine Glucose POC Glucose 124 H Hemoglobin A1c Lactic Acid 3.00 H* Calcium Phosphorus Magnesium Ferritin Total Bilirubin AST ALT Lactate Dehydrogenase C-Reactive Protein Total Protein Albumin Arterial Blood Glucose Arterial Blood Ionized Calcium Urine WBC (Auto) U Epithel Cells (Auto) Urine Creatinine Vancomycin Trough Coronavirus (PCR) Crossmatch 11/15/20 11/15/20 11/15/20 08:26 08:26 11:34 WBC RBC Hgb Hct RDW Plt Count Lymph % (Auto) Hayes % (Auto) Lymph # (Auto) Hayes # (Auto) Seg Neutrophils % Seg Neuts % (Manual) Lymphocytes % (Manual) Monocytes % (Manual) Seg Neutrophils # Seg Neutrophils # Man Lymphocytes # (Manual) Monocytes # (Manual) PT INR Fibrinogen D-Dimer Heparin Anti-Xa Level ABG pH POC ABG pCO2 POC ABG pO2 ABG pO2 ABG Hemoglobin ABG Oxyhemoglobin ABG Sodium ABG Potassium ABG Chloride ABG Glucose Carboxyhemoglobin Sodium Potassium Chloride Carbon Dioxide BUN Creatinine Glucose POC Glucose 113 H Hemoglobin A1c Lactic Acid 2.60 H* Calcium Phosphorus Magnesium Ferritin 452.8 H Total Bilirubin AST ALT Lactate Dehydrogenase C-Reactive Protein Total Protein Albumin Arterial Blood Glucose Arterial Blood Ionized Calcium Urine WBC (Auto) U Epithel Cells (Auto) Urine Creatinine Vancomycin Trough Coronavirus (PCR) Crossmatch 11/15/20 11/15/20 11/16/20 16:43 23:16 03:39 WBC RBC Hgb Hct RDW Plt Count Lymph % (Auto) Hayes % (Auto) Lymph # (Auto) Hayes # (Auto) Seg Neutrophils % Seg Neuts % (Manual) Lymphocytes % (Manual) Monocytes % (Manual) Seg Neutrophils # Seg Neutrophils # Man Lymphocytes # (Manual) Monocytes # (Manual) PT INR Fibrinogen D-Dimer Heparin Anti-Xa Level ABG pH 7.261 L POC ABG pCO2 31.2 L POC ABG pO2 117.3 H ABG pO2 ABG Hemoglobin ABG Oxyhemoglobin ABG Sodium 135.8 L ABG Potassium ABG Chloride 112.0 H ABG Glucose 148 H Carboxyhemoglobin 0.4 L Sodium Potassium Chloride Carbon Dioxide BUN Creatinine Glucose POC Glucose 107 H 113 H Hemoglobin A1c Lactic Acid Calcium Phosphorus Magnesium Ferritin Total Bilirubin AST ALT Lactate Dehydrogenase C-Reactive Protein Total Protein Albumin Arterial Blood Glucose 148 H Arterial Blood Ionized Calcium 4.1 L Urine WBC (Auto) U Epithel Cells (Auto) Urine Creatinine Vancomycin Trough Coronavirus (PCR) Crossmatch 11/16/20 11/16/20 11/16/20 04:51 11:28 17:15 WBC RBC Hgb Hct RDW Plt Count Lymph % (Auto) Hayes % (Auto) Lymph # (Auto) Hayes # (Auto) Seg Neutrophils % Seg Neuts % (Manual) Lymphocytes % (Manual) Monocytes % (Manual) Seg Neutrophils # Seg Neutrophils # Man Lymphocytes # (Manual) Monocytes # (Manual) PT INR Fibrinogen D-Dimer Heparin Anti-Xa Level ABG pH POC ABG pCO2 POC ABG pO2 ABG pO2 ABG Hemoglobin ABG Oxyhemoglobin ABG Sodium ABG Potassium ABG Chloride ABG Glucose Carboxyhemoglobin Sodium Potassium Chloride Carbon Dioxide BUN Creatinine Glucose POC Glucose 119 H 144 H 139 H Hemoglobin A1c Lactic Acid Calcium Phosphorus Magnesium Ferritin Total Bilirubin AST ALT Lactate Dehydrogenase C-Reactive Protein Total Protein Albumin Arterial Blood Glucose Arterial Blood Ionized Calcium Urine WBC (Auto) U Epithel Cells (Auto) Urine Creatinine Vancomycin Trough Coronavirus (PCR) Crossmatch 11/16/20 11/16/20 11/16/20 23:50 Unknown Unknown WBC RBC Hgb Hct RDW Plt Count Lymph % (Auto) Hayes % (Auto) Lymph # (Auto) Hayes # (Auto) Seg Neutrophils % Seg Neuts % (Manual) Lymphocytes % (Manual) Monocytes % (Manual) Seg Neutrophils # Seg Neutrophils # Man Lymphocytes # (Manual) Monocytes # (Manual) PT INR Fibrinogen D-Dimer Heparin Anti-Xa Level ABG pH POC ABG pCO2 POC ABG pO2 ABG pO2 ABG Hemoglobin ABG Oxyhemoglobin ABG Sodium ABG Potassium ABG Chloride ABG Glucose Carboxyhemoglobin Sodium Potassium 3.5 L Chloride 109.7 H Carbon Dioxide 15 L BUN 65 H Creatinine 2.2 H Glucose 174 H POC Glucose 132 H Hemoglobin A1c Lactic Acid 2.10 H* Calcium 6.1 L D Phosphorus Magnesium Ferritin Total Bilirubin AST 171 H ALT 268 H Lactate Dehydrogenase C-Reactive Protein Total Protein 4.3 L Albumin 1.9 L Arterial Blood Glucose Arterial Blood Ionized Calcium Urine WBC (Auto) U Epithel Cells (Auto) Urine Creatinine Vancomycin Trough Coronavirus (PCR) Crossmatch 11/17/20 11/17/20 11/17/20 03:14 04:00 05:09 WBC RBC Hgb Hct RDW Plt Count 123 L Lymph % (Auto) Hayes % (Auto) Lymph # (Auto) Hayes # (Auto) Seg Neutrophils % Seg Neuts % (Manual) Lymphocytes % (Manual) Monocytes % (Manual) Seg Neutrophils # Seg Neutrophils # Man Lymphocytes # (Manual) Monocytes # (Manual) PT INR Fibrinogen D-Dimer Heparin Anti-Xa Level ABG pH 7.498 H POC ABG pCO2 27.2 L POC ABG pO2 110.6 H ABG pO2 ABG Hemoglobin 11.6 L ABG Oxyhemoglobin ABG Sodium 135.4 L ABG Potassium ABG Chloride ABG Glucose 131 H Carboxyhemoglobin Sodium Potassium Chloride Carbon Dioxide BUN Creatinine Glucose POC Glucose 119 H Hemoglobin A1c Lactic Acid Calcium Phosphorus Magnesium Ferritin Total Bilirubin AST ALT Lactate Dehydrogenase C-Reactive Protein Total Protein Albumin Arterial Blood Glucose 131 H Arterial Blood Ionized Calcium 3.7 L Urine WBC (Auto) U Epithel Cells (Auto) Urine Creatinine Vancomycin Trough Coronavirus (PCR) Crossmatch 11/17/20 11/17/20 11/17/20 09:59 09:59 09:59 WBC RBC Hgb Hct RDW Plt Count Lymph % (Auto) [place] % (Auto) Lymph # (Auto) Hayes # (Auto) Seg Neutrophils % Seg Neuts % (Manual) Lymphocytes % (Manual) Monocytes % (Manual) Seg Neutrophils # Seg Neutrophils # Man Lymphocytes # (Manual) Monocytes # (Manual) PT INR Fibrinogen D-Dimer 1401.08 H Heparin Anti-Xa Level ABG pH POC ABG pCO2 POC ABG pO2 ABG pO2 ABG Hemoglobin ABG Oxyhemoglobin ABG Sodium ABG Potassium ABG Chloride ABG Glucose Carboxyhemoglobin Sodium Potassium Chloride Carbon Dioxide BUN Creatinine Glucose 127 H POC Glucose Hemoglobin A1c Lactic Acid Calcium Phosphorus Magnesium Ferritin 224.1 H Total Bilirubin AST ALT Lactate Dehydrogenase 515 H C-Reactive Protein 4.80 H Total Protein Albumin Arterial Blood Glucose Arterial Blood Ionized Calcium Urine WBC (Auto) U Epithel Cells (Auto) Urine Creatinine Vancomycin Trough Coronavirus (PCR) Crossmatch 11/17/20 11/17/20 11/17/20 11:28 16:26 18:00 WBC RBC Hgb Hct RDW Plt Count Lymph % (Auto) [place] % (Auto) Lymph # (Auto) [place] # (Auto) Seg Neutrophils % Seg Neuts % (Manual) Lymphocytes % (Manual) Monocytes % (Manual) Seg Neutrophils # Seg Neutrophils # Man Lymphocytes # (Manual) Monocytes # (Manual) PT INR Fibrinogen D-Dimer Heparin Anti-Xa Level 0.10 L ABG pH POC ABG pCO2 POC ABG pO2 ABG pO2 ABG Hemoglobin ABG Oxyhemoglobin ABG Sodium ABG Potassium ABG Chloride ABG Glucose Carboxyhemoglobin Sodium Potassium Chloride Carbon Dioxide BUN Creatinine Glucose POC Glucose 114 H 121 H Hemoglobin A1c Lactic Acid Calcium Phosphorus Magnesium Ferritin Total Bilirubin AST ALT Lactate Dehydrogenase C-Reactive Protein Total Protein Albumin Arterial Blood Glucose Arterial Blood Ionized Calcium Urine WBC (Auto) U Epithel Cells (Auto) Urine Creatinine Vancomycin Trough Coronavirus (PCR) Crossmatch 11/17/20 11/17/20 11/18/20 21:37 Unknown 02:11 WBC RBC Hgb Hct RDW Plt Count Lymph % (Auto) [place] % (Auto) Lymph # (Auto) [place] # (Auto) Seg Neutrophils % Seg Neuts % (Manual) Lymphocytes % (Manual) Monocytes % (Manual) Seg Neutrophils # Seg Neutrophils # Man Lymphocytes # (Manual) Monocytes # (Manual) PT INR Fibrinogen D-Dimer Heparin Anti-Xa Level ABG pH POC ABG pCO2 POC ABG pO2 ABG pO2 ABG Hemoglobin ABG Oxyhemoglobin ABG Sodium ABG Potassium ABG Chloride ABG Glucose Carboxyhemoglobin Sodium 146 H D Potassium 3.5 L Chloride Carbon Dioxide BUN 67 H 62 H Creatinine 1.8 H 1.7 H Glucose 129 H 109 H POC Glucose 118 H Hemoglobin A1c Lactic Acid Calcium 6.5 L 5.7 L* Phosphorus Magnesium 1.20 L Ferritin Total Bilirubin AST ALT Lactate Dehydrogenase C-Reactive Protein Total Protein Albumin Arterial Blood Glucose Arterial Blood Ionized Calcium Urine WBC (Auto) U Epithel Cells (Auto) Urine Creatinine Vancomycin Trough Coronavirus (PCR) Crossmatch 11/18/20 11/18/20 11/18/20 02:38 04:44 17:09 WBC RBC Hgb Hct RDW Plt Count Lymph % (Auto) [place] % (Auto) Lymph # (Auto) [place] # (Auto) Seg Neutrophils % Seg Neuts % (Manual) Lymphocytes % (Manual) Monocytes % (Manual) Seg Neutrophils # Seg Neutrophils # Man Lymphocytes # (Manual) Monocytes # (Manual) PT INR Fibrinogen D-Dimer Heparin Anti-Xa Level ABG pH 7.565 H POC ABG pCO2 30.4 L POC ABG pO2 72.0 L ABG pO2 ABG Hemoglobin 11.4 L ABG Oxyhemoglobin ABG Sodium 134.1 L ABG Potassium 2.9 L ABG Chloride ABG Glucose 110 H Carboxyhemoglobin 0.3 L Sodium Potassium Chloride Carbon Dioxide BUN Creatinine Glucose POC Glucose 109 H 125 H Hemoglobin A1c Lactic Acid Calcium Phosphorus Magnesium Ferritin Total Bilirubin AST ALT Lactate Dehydrogenase C-Reactive Protein Total Protein Albumin Arterial Blood Glucose 110 H Arterial Blood Ionized Calcium 3.4 L Urine WBC (Auto) U Epithel Cells (Auto) Urine Creatinine Vancomycin Trough Coronavirus (PCR) Crossmatch 11/19/20 11/19/20 11/19/20 03:19 04:00 04:00 WBC 14.3 H RBC 3.61 L Hgb Hct RDW Plt Count Lymph % (Auto) [place] % (Auto) Lymph # (Auto) [place] # (Auto) Seg Neutrophils % Seg Neuts % (Manual) 77.0 H Lymphocytes % (Manual) 13.0 L Monocytes % (Manual) 10.0 H Seg Neutrophils # Seg Neutrophils # Man 11.0 H Lymphocytes # (Manual) Monocytes # (Manual) 1.4 H PT INR Fibrinogen D-Dimer Heparin Anti-Xa Level ABG pH 7.577 H POC ABG pCO2 28.0 L POC ABG pO2 57.4 L ABG pO2 ABG Hemoglobin 10.6 L ABG Oxyhemoglobin 90.3 L ABG Sodium ABG Potassium 2.8 L ABG Chloride ABG Glucose 102 H Carboxyhemoglobin 0.3 L Sodium Potassium 2.9 L* D Chloride Carbon Dioxide 31 H BUN 51 H Creatinine Glucose POC Glucose Hemoglobin A1c Lactic Acid Calcium 6.7 L D Phosphorus 1.90 L Magnesium Ferritin Total Bilirubin AST ALT Lactate Dehydrogenase 634 H C-Reactive Protein 1.40 H Total Protein Albumin Arterial Blood Glucose 102 H Arterial Blood Ionized Calcium 3.7 L Urine WBC (Auto) U Epithel Cells (Auto) Urine Creatinine Vancomycin Trough Coronavirus (PCR) Crossmatch 11/19/20 11/19/20 11/19/20 04:00 10:33 14:10 WBC RBC Hgb 8.9 L Hct 27.0 L RDW Plt Count Lymph % (Auto) [place] % (Auto) Lymph # (Auto) [place] # (Auto) Seg Neutrophils % Seg Neuts % (Manual) Lymphocytes % (Manual) Monocytes % (Manual) Seg Neutrophils # Seg Neutrophils # Man Lymphocytes # (Manual) Monocytes # (Manual) PT INR Fibrinogen D-Dimer 1808.23 H Heparin Anti-Xa Level ABG pH POC ABG pCO2 POC ABG pO2 ABG pO2 ABG Hemoglobin ABG Oxyhemoglobin ABG Sodium ABG Potassium ABG Chloride ABG Glucose Carboxyhemoglobin Sodium Potassium Chloride Carbon Dioxide BUN Creatinine Glucose POC Glucose 109 H Hemoglobin A1c Lactic Acid Calcium Phosphorus Magnesium Ferritin Total Bilirubin AST ALT Lactate Dehydrogenase C-Reactive Protein Total Protein Albumin Arterial Blood Glucose Arterial Blood Ionized Calcium Urine WBC (Auto) U Epithel Cells (Auto) Urine Creatinine Vancomycin Trough Coronavirus (PCR) Crossmatch 11/19/20 11/19/20 11/19/20 17:28 19:45 19:45 WBC 22.7 H RBC 3.14 L Hgb 9.0 L Hct 27.2 L RDW Plt Count Lymph % (Auto) [place] % (Auto) Lymph # (Auto) [place] # (Auto) Seg Neutrophils % Seg Neuts % (Manual) Lymphocytes % (Manual) Monocytes % (Manual) Seg Neutrophils # Seg Neutrophils # Man Lymphocytes # (Manual) Monocytes # (Manual) PT 24.6 H INR 2.18 H Fibrinogen D-Dimer Heparin Anti-Xa Level ABG pH POC ABG pCO2 POC ABG pO2 ABG pO2 ABG Hemoglobin ABG Oxyhemoglobin ABG Sodium ABG Potassium ABG Chloride ABG Glucose Carboxyhemoglobin Sodium Potassium Chloride Carbon Dioxide BUN Creatinine Glucose POC Glucose 186 H Hemoglobin A1c Lactic Acid Calcium Phosphorus Magnesium Ferritin Total Bilirubin AST ALT Lactate Dehydrogenase C-Reactive Protein Total Protein Albumin Arterial Blood Glucose Arterial Blood Ionized Calcium Urine WBC (Auto) U Epithel Cells (Auto) Urine Creatinine Vancomycin Trough Coronavirus (PCR) Crossmatch 11/19/20 11/19/20 11/19/20 19:45 19:45 19:45 WBC RBC Hgb Hct RDW Plt Count Lymph % (Auto) [place] % (Auto) Lymph # (Auto) [place] # (Auto) Seg Neutrophils % Seg Neuts % (Manual) Lymphocytes % (Manual) Monocytes % (Manual) Seg Neutrophils # Seg Neutrophils # Man Lymphocytes # (Manual) Monocytes # (Manual) PT INR Fibrinogen D-Dimer Heparin Anti-Xa Level ABG pH POC ABG pCO2 POC ABG pO2 ABG pO2 ABG Hemoglobin ABG Oxyhemoglobin ABG Sodium ABG Potassium ABG Chloride ABG Glucose Carboxyhemoglobin Sodium Potassium Chloride Carbon Dioxide BUN 58 H Creatinine Glucose 192 H POC Glucose Hemoglobin A1c Lactic Acid 2.20 H* Calcium 6.9 L Phosphorus Magnesium Ferritin Total Bilirubin AST 119 H ALT 143 H Lactate Dehydrogenase C-Reactive Protein Total Protein 4.0 L Albumin 2.3 L Arterial Blood Glucose Arterial Blood Ionized Calcium Urine WBC (Auto) U Epithel Cells (Auto) Urine Creatinine Vancomycin Trough Coronavirus (PCR) Crossmatch See Detail 11/19/20 11/19/20 11/19/20 22:00 23:25 23:45 WBC RBC Hgb Hct RDW Plt Count Lymph % (Auto) [place] % (Auto) Lymph # (Auto) [place] # (Auto) Seg Neutrophils % Seg Neuts % (Manual) Lymphocytes % (Manual) Monocytes % (Manual) Seg Neutrophils # Seg Neutrophils # Man Lymphocytes # (Manual) Monocytes # (Manual) PT INR Fibrinogen D-Dimer Heparin Anti-Xa Level > 2.00 H ABG pH POC ABG pCO2 POC ABG pO2 ABG pO2 ABG Hemoglobin ABG Oxyhemoglobin ABG Sodium ABG Potassium ABG Chloride ABG Glucose Carboxyhemoglobin Sodium Potassium Chloride Carbon Dioxide BUN Creatinine Glucose POC Glucose 155 H Hemoglobin A1c Lactic Acid Calcium Phosphorus Magnesium Ferritin Total Bilirubin AST ALT Lactate Dehydrogenase C-Reactive Protein Total Protein Albumin Arterial Blood Glucose Arterial Blood Ionized Calcium Urine WBC (Auto) > 182.0 H U Epithel Cells (Auto) Urine Creatinine Vancomycin Trough Coronavirus (PCR) Crossmatch 11/20/20 11/20/20 11/20/20 04:00 04:09 04:09 WBC 20.9 H RBC 3.48 L Hgb 10.0 L Hct 30.1 L RDW Plt Count Lymph % (Auto) [place] % (Auto) Lymph # (Auto) [place] # (Auto) Seg Neutrophils % Seg Neuts % (Manual) 77.0 H Lymphocytes % (Manual) 3.0 L Monocytes % (Manual) Seg Neutrophils # Seg Neutrophils # Man 16.1 H Lymphocytes # (Manual) 0.6 L Monocytes # (Manual) PT INR Fibrinogen D-Dimer Heparin Anti-Xa Level ABG pH 7.595 H POC ABG pCO2 25.2 L POC ABG pO2 69.0 L ABG pO2 ABG Hemoglobin 9.8 L ABG Oxyhemoglobin ABG Sodium ABG Potassium ABG Chloride 110.0 H ABG Glucose 178 H Carboxyhemoglobin 0.2 L Sodium 147 H Potassium Chloride 107.8 H Carbon Dioxide BUN 63 H Creatinine 1.3 H Glucose 151 H POC Glucose Hemoglobin A1c Lactic Acid Calcium 6.3 L Phosphorus Magnesium Ferritin Total Bilirubin AST ALT Lactate Dehydrogenase C-Reactive Protein Total Protein Albumin Arterial Blood Glucose 178 H Arterial Blood Ionized Calcium 3.7 L Urine WBC (Auto) U Epithel Cells (Auto) Urine Creatinine Vancomycin Trough Coronavirus (PCR) Crossmatch 11/20/20 11/20/20 11/20/20 05:13 09:57 09:57 WBC RBC Hgb 9.4 L Hct 28.5 L RDW Plt Count Lymph % (Auto) [place] % (Auto) Lymph # (Auto) [place] # (Auto) Seg Neutrophils % Seg Neuts % (Manual) Lymphocytes % (Manual) Monocytes % (Manual) Seg Neutrophils # Seg Neutrophils # Man Lymphocytes # (Manual) Monocytes # (Manual) PT INR Fibrinogen D-Dimer Heparin Anti-Xa Level ABG pH POC ABG pCO2 POC ABG pO2 ABG pO2 ABG Hemoglobin ABG Oxyhemoglobin ABG Sodium ABG Potassium ABG Chloride ABG Glucose Carboxyhemoglobin Sodium Potassium Chloride Carbon Dioxide BUN Creatinine Glucose POC Glucose 126 H Hemoglobin A1c Lactic Acid Calcium Phosphorus 5.40 H D Magnesium Ferritin Total Bilirubin AST ALT Lactate Dehydrogenase C-Reactive Protein Total Protein Albumin Arterial Blood Glucose Arterial Blood Ionized Calcium Urine WBC (Auto) U Epithel Cells (Auto) Urine Creatinine Vancomycin Trough Coronavirus (PCR) Crossmatch 11/20/20 11/20/20 11/20/20 12:07 17:52 20:48 WBC RBC Hgb Hct RDW Plt Count Lymph % (Auto) [place] % (Auto) Lymph # (Auto) [place] # (Auto) Seg Neutrophils % Seg Neuts % (Manual) Lymphocytes % (Manual) Monocytes % (Manual) Seg Neutrophils # Seg Neutrophils # Man Lymphocytes # (Manual) Monocytes # (Manual) PT INR Fibrinogen D-Dimer Heparin Anti-Xa Level ABG pH 7.468 H POC ABG pCO2 25.5 L POC ABG pO2 ABG pO2 ABG Hemoglobin 7.6 L ABG Oxyhemoglobin ABG Sodium ABG Potassium ABG Chloride 111.0 H ABG Glucose 190 H Carboxyhemoglobin Sodium Potassium Chloride Carbon Dioxide BUN Creatinine Glucose POC Glucose 121 H 154 H Hemoglobin A1c Lactic Acid Calcium Phosphorus Magnesium Ferritin Total Bilirubin AST ALT Lactate Dehydrogenase C-Reactive Protein Total Protein Albumin Arterial Blood Glucose 190 H Arterial Blood Ionized Calcium 3.8 L Urine WBC (Auto) U Epithel Cells (Auto) Urine Creatinine Vancomycin Trough Coronavirus (PCR) Crossmatch 11/20/20 11/21/20 11/21/20 23:01 00:27 00:27 WBC RBC Hgb 7.0 L Hct 21.9 L D RDW Plt Count Lymph % (Auto) [place] % (Auto) Lymph # (Auto) [place] # (Auto) Seg Neutrophils % Seg Neuts % (Manual) Lymphocytes % (Manual) Monocytes % (Manual) Seg Neutrophils # Seg Neutrophils # Man Lymphocytes # (Manual) Monocytes # (Manual) PT INR Fibrinogen D-Dimer Heparin Anti-Xa Level 1.46 H ABG pH POC ABG pCO2 POC ABG pO2 ABG pO2 ABG Hemoglobin ABG Oxyhemoglobin ABG Sodium ABG Potassium ABG Chloride ABG Glucose Carboxyhemoglobin Sodium Potassium Chloride Carbon Dioxide BUN Creatinine Glucose POC Glucose 144 H Hemoglobin A1c Lactic Acid Calcium Phosphorus Magnesium Ferritin Total Bilirubin AST ALT Lactate Dehydrogenase C-Reactive Protein Total Protein Albumin Arterial Blood Glucose Arterial Blood Ionized Calcium Urine WBC (Auto) U Epithel Cells (Auto) Urine Creatinine Vancomycin Trough Coronavirus (PCR) Crossmatch 11/21/20 11/21/20 11/21/20 09:53 09:53 09:53 WBC RBC Hgb 6.1 L Hct 20.2 L RDW Plt Count Lymph % (Auto) [place] % (Auto) Lymph # (Auto) [place] # (Auto) Seg Neutrophils % Seg Neuts % (Manual) Lymphocytes % (Manual) Monocytes % (Manual) Seg Neutrophils # Seg Neutrophils # Man Lymphocytes # (Manual) Monocytes # (Manual) PT 116.7 H INR 17.11 H* Fibrinogen D-Dimer 1623.09 H Heparin Anti-Xa Level ABG pH POC ABG pCO2 POC ABG pO2 ABG pO2 ABG Hemoglobin ABG Oxyhemoglobin ABG Sodium ABG Potassium ABG Chloride ABG Glucose Carboxyhemoglobin Sodium 146 H Potassium 5.7 H D Chloride 107.6 H Carbon Dioxide 10 L D BUN 83 H Creatinine 1.9 H Glucose 158 H POC Glucose Hemoglobin A1c Lactic Acid Calcium 6.1 L Phosphorus Magnesium Ferritin Total Bilirubin AST ALT Lactate Dehydrogenase 1131 H C-Reactive Protein 2.00 H Total Protein Albumin Arterial Blood Glucose Arterial Blood Ionized Calcium Urine WBC (Auto) U Epithel Cells (Auto) Urine Creatinine Vancomycin Trough Coronavirus (PCR) Crossmatch 11/21/20 11/21/20 11/21/20 11:12 11:21 11:28 WBC RBC Hgb Hct RDW Plt Count Lymph % (Auto) [place] % (Auto) Lymph # (Auto) [place] # (Auto) Seg Neutrophils % Seg Neuts % (Manual) Lymphocytes % (Manual) Monocytes % (Manual) Seg Neutrophils # Seg Neutrophils # Man Lymphocytes # (Manual) Monocytes # (Manual) PT INR Fibrinogen 208 L D-Dimer Heparin Anti-Xa Level 1.24 H ABG pH 7.056 L POC ABG pCO2 POC ABG pO2 ABG pO2 ABG Hemoglobin 4.4 L ABG Oxyhemoglobin 89.8 L ABG Sodium ABG Potassium ABG Chloride 111.0 H ABG Glucose 573 H Carboxyhemoglobin Sodium Potassium Chloride Carbon Dioxide BUN Creatinine Glucose POC Glucose 49 L Hemoglobin A1c Lactic Acid Calcium Phosphorus Magnesium Ferritin Total Bilirubin AST ALT Lactate Dehydrogenase C-Reactive Protein Total Protein Albumin Arterial Blood Glucose 573 H Arterial Blood Ionized Calcium Urine WBC (Auto) U Epithel Cells (Auto) Urine Creatinine Vancomycin Trough Coronavirus (PCR) Crossmatch 11/21/20 11/21/20 11/21/20 11:39 13:35 17:42 WBC RBC Hgb Hct RDW Plt Count Lymph % (Auto) [place] % (Auto) Lymph # (Auto) [place] # (Auto) Seg Neutrophils % Seg Neuts % (Manual) Lymphocytes % (Manual) Monocytes % (Manual) Seg Neutrophils # Seg Neutrophils # Man Lymphocytes # (Manual) Monocytes # (Manual) PT INR Fibrinogen D-Dimer Heparin Anti-Xa Level ABG pH 7.213 L POC ABG pCO2 29.3 L POC ABG pO2 79.3 L ABG pO2 ABG Hemoglobin ABG Oxyhemoglobin 93.5 L ABG Sodium ABG Potassium ABG Chloride 110.0 H ABG Glucose 297 H Carboxyhemoglobin Sodium Potassium Chloride Carbon Dioxide BUN Creatinine Glucose POC Glucose 43 L 111 H Hemoglobin A1c Lactic Acid Calcium Phosphorus Magnesium Ferritin Total Bilirubin AST ALT Lactate Dehydrogenase C-Reactive Protein Total Protein Albumin Arterial Blood Glucose 297 H Arterial Blood Ionized Calcium 4.1 L Urine WBC (Auto) U Epithel Cells (Auto) Urine Creatinine Vancomycin Trough Coronavirus (PCR) Crossmatch 11/21/20 11/22/20 11/22/20 20:15 02:00 05:00 WBC RBC Hgb Hct RDW Plt Count Lymph % (Auto) [place] % (Auto) Lymph # (Auto) [place] # (Auto) Seg Neutrophils % Seg Neuts % (Manual) Lymphocytes % (Manual) Monocytes % (Manual) Seg Neutrophils # Seg Neutrophils # Man Lymphocytes # (Manual) Monocytes # (Manual) PT 22.6 H 20.8 H INR 1.93 H 1.73 H Fibrinogen 200 L D-Dimer 2595.90 H Heparin Anti-Xa Level ABG pH POC ABG pCO2 POC ABG pO2 ABG pO2 ABG Hemoglobin ABG Oxyhemoglobin ABG Sodium ABG Potassium ABG Chloride ABG Glucose Carboxyhemoglobin Sodium Potassium Chloride Carbon Dioxide BUN Creatinine Glucose POC Glucose Hemoglobin A1c Lactic Acid 5.00 H* Calcium Phosphorus Magnesium Ferritin Total Bilirubin AST ALT Lactate Dehydrogenase C-Reactive Protein Total Protein Albumin Arterial Blood Glucose Arterial Blood Ionized Calcium Urine WBC (Auto) U Epithel Cells (Auto) Urine Creatinine Vancomycin Trough Coronavirus (PCR) Crossmatch 11/22/20 11/22/20 11/22/20 05:24 11:00 13:00 WBC 21.5 H RBC Hgb Hct RDW Plt Count 37 L Lymph % (Auto) [place] % (Auto) Lymph # (Auto) [place] # (Auto) Seg Neutrophils % Seg Neuts % (Manual) Lymphocytes % (Manual) Monocytes % (Manual) Seg Neutrophils # Seg Neutrophils # Man Lymphocytes # (Manual) Monocytes # (Manual) PT INR Fibrinogen D-Dimer Heparin Anti-Xa Level ABG pH 7.545 H POC ABG pCO2 29.3 L POC ABG pO2 ABG pO2 ABG Hemoglobin 10.3 L ABG Oxyhemoglobin ABG Sodium ABG Potassium 3.0 L ABG Chloride 111.0 H ABG Glucose 107 H Carboxyhemoglobin 0.1 L Sodium Potassium Chloride Carbon Dioxide BUN Creatinine Glucose POC Glucose 36 L Hemoglobin A1c Lactic Acid Calcium Phosphorus Magnesium Ferritin Total Bilirubin AST ALT Lactate Dehydrogenase C-Reactive Protein Total Protein Albumin Arterial Blood Glucose 107 H Arterial Blood Ionized Calcium 3.3 L Urine WBC (Auto) U Epithel Cells (Auto) Urine Creatinine Vancomycin Trough Coronavirus (PCR) Crossmatch 11/22/20 11/22/20 11/22/20 17:37 23:00 Unknown WBC RBC Hgb Hct RDW Plt Count Lymph % (Auto) [place] % (Auto) Lymph # (Auto) [place] # (Auto) Seg Neutrophils % Seg Neuts % (Manual) Lymphocytes % (Manual) Monocytes % (Manual) Seg Neutrophils # Seg Neutrophils # Man Lymphocytes # (Manual) Monocytes # (Manual) PT INR Fibrinogen D-Dimer Heparin Anti-Xa Level ABG pH POC ABG pCO2 POC ABG pO2 ABG pO2 ABG Hemoglobin ABG Oxyhemoglobin ABG Sodium ABG Potassium ABG Chloride ABG Glucose Carboxyhemoglobin Sodium Potassium 3.0 L Chloride Carbon Dioxide BUN Creatinine Glucose POC Glucose 112 H Hemoglobin A1c Lactic Acid Calcium Phosphorus Magnesium Ferritin Total Bilirubin AST ALT Lactate Dehydrogenase C-Reactive Protein 1.90 H Total Protein Albumin Arterial Blood Glucose Arterial Blood Ionized Calcium Urine WBC (Auto) U Epithel Cells (Auto) Urine Creatinine Vancomycin Trough Coronavirus (PCR) Crossmatch 11/22/20 11/22/20 11/22/20 Unknown Unknown Unknown WBC 16.4 H RBC Hgb Hct RDW 15.4 H Plt Count 40 L Lymph % (Auto) [place] % (Auto) Lymph # (Auto) [place] # (Auto) Seg Neutrophils % Seg Neuts % (Manual) Lymphocytes % (Manual) Monocytes % (Manual) Seg Neutrophils # Seg Neutrophils # Man Lymphocytes # (Manual) Monocytes # (Manual) PT INR Fibrinogen D-Dimer Heparin Anti-Xa Level ABG pH POC ABG pCO2 POC ABG pO2 ABG pO2 ABG Hemoglobin ABG Oxyhemoglobin ABG Sodium ABG Potassium ABG Chloride ABG Glucose Carboxyhemoglobin Sodium 152 H Potassium 2.8 L* D Chloride 108.9 H Carbon Dioxide BUN 76 H Creatinine 1.7 H Glucose POC Glucose Hemoglobin A1c Lactic Acid Calcium 6.8 L Phosphorus Magnesium 1.50 L Ferritin 1559.0 H Total Bilirubin 1.50 H AST 4887 H ALT 1552 H Lactate Dehydrogenase C-Reactive Protein Total Protein 3.8 L Albumin 2.2 L Arterial Blood Glucose Arterial Blood Ionized Calcium Urine WBC (Auto) U Epithel Cells (Auto) Urine Creatinine Vancomycin Trough Coronavirus (PCR) Crossmatch 11/22/20 11/22/20 11/23/20 Unknown Unknown 04:00 WBC 15.2 H RBC 3.27 L Hgb 9.6 L Hct 28.8 L RDW 15.7 H Plt Count 38 L Lymph % (Auto) [place] % (Auto) Lymph # (Auto) [place] # (Auto) Seg Neutrophils % Seg Neuts % (Manual) Lymphocytes % (Manual) Monocytes % (Manual) Seg Neutrophils # Seg Neutrophils # Man Lymphocytes # (Manual) Monocytes # (Manual) PT INR Fibrinogen D-Dimer Heparin Anti-Xa Level ABG pH POC ABG pCO2 POC ABG pO2 ABG pO2 ABG Hemoglobin ABG Oxyhemoglobin ABG Sodium ABG Potassium ABG Chloride ABG Glucose Carboxyhemoglobin Sodium 152 H Potassium 2.8 L* Chloride 107.5 H Carbon Dioxide 32 H BUN 75 H Creatinine 1.7 H Glucose 130 H POC Glucose Hemoglobin A1c Lactic Acid 5.20 H* Calcium 6.5 L Phosphorus Magnesium Ferritin Total Bilirubin 1.40 H AST 4513 H ALT 1512 H Lactate Dehydrogenase C-Reactive Protein Total Protein 3.4 L Albumin 2.1 L Arterial Blood Glucose Arterial Blood Ionized Calcium Urine WBC (Auto) U Epithel Cells (Auto) Urine Creatinine Vancomycin Trough Coronavirus (PCR) Crossmatch 11/23/20 11/23/20 11/23/20 04:00 04:00 05:04 WBC RBC Hgb Hct RDW Plt Count Lymph % (Auto) [place] % (Auto) Lymph # (Auto) [place] # (Auto) Seg Neutrophils % Seg Neuts % (Manual) Lymphocytes % (Manual) Monocytes % (Manual) Seg Neutrophils # Seg Neutrophils # Man Lymphocytes # (Manual) Monocytes # (Manual) PT 21.0 H INR 1.75 H Fibrinogen D-Dimer Heparin Anti-Xa Level ABG pH 7.518 H POC ABG pCO2 14.6 L POC ABG pO2 ABG pO2 ABG Hemoglobin 5.3 L ABG Oxyhemoglobin ABG Sodium ABG Potassium 1.5 L ABG Chloride 129.0 H ABG Glucose 99 H Carboxyhemoglobin Sodium 152 H Potassium 3.1 L Chloride 112.5 H Carbon Dioxide BUN 77 H Creatinine 2.0 H Glucose 177 H POC Glucose Hemoglobin A1c Lactic Acid Calcium 6.0 L Phosphorus Magnesium Ferritin Total Bilirubin AST 1058 H ALT 929 H Lactate Dehydrogenase C-Reactive Protein Total Protein 3.6 L Albumin 1.6 L Arterial Blood Glucose 99 H Arterial Blood Ionized Calcium Urine WBC (Auto) U Epithel Cells (Auto) Urine Creatinine Vancomycin Trough Coronavirus (PCR) Crossmatch 11/23/20 11/24/20 11/24/20 05:06 04:00 05:30 WBC RBC Hgb Hct RDW Plt Count Lymph % (Auto) [place] % (Auto) Lymph # (Auto) [place] # (Auto) Seg Neutrophils % Seg Neuts % (Manual) Lymphocytes % (Manual) Monocytes % (Manual) Seg Neutrophils # Seg Neutrophils # Man Lymphocytes # (Manual) Monocytes # (Manual) PT 22.8 H INR 1.95 H Fibrinogen D-Dimer 2825.65 H Heparin Anti-Xa Level ABG pH 7.508 H POC ABG pCO2 31.7 L POC ABG pO2 75.3 L ABG pO2 ABG Hemoglobin 10.6 L ABG Oxyhemoglobin ABG Sodium 145.3 H ABG Potassium 2.8 L ABG Chloride 112.0 H ABG Glucose 119 H Carboxyhemoglobin Sodium Potassium Chloride Carbon Dioxide BUN Creatinine Glucose POC Glucose 109 H Hemoglobin A1c Lactic Acid Calcium Phosphorus Magnesium Ferritin Total Bilirubin AST ALT Lactate Dehydrogenase C-Reactive Protein Total Protein Albumin Arterial Blood Glucose 119 H Arterial Blood Ionized Calcium 3.8 L Urine WBC (Auto) U Epithel Cells (Auto) Urine Creatinine Vancomycin Trough Coronavirus (PCR) Crossmatch 08/11/24/20 11/24/20 05:30 05:30 05:30 WBC RBC Hgb Hct RDW 16.2 H Plt Count 28 L Lymph % (Auto) [place] % (Auto) Lymph # (Auto) [place] # (Auto) Seg Neutrophils % Seg Neuts % (Manual) Lymphocytes % (Manual) Monocytes % (Manual) Seg Neutrophils # Seg Neutrophils # Man Lymphocytes # (Manual) Monocytes # (Manual) PT INR Fibrinogen D-Dimer Heparin Anti-Xa Level ABG pH POC ABG pCO2 POC ABG pO2 ABG pO2 ABG Hemoglobin ABG Oxyhemoglobin ABG Sodium ABG Potassium ABG Chloride ABG Glucose Carboxyhemoglobin Sodium 151 H Potassium 2.9 L* Chloride 113.8 H Carbon Dioxide BUN 75 H Creatinine 1.8 H Glucose 117 H POC Glucose Hemoglobin A1c Lactic Acid Calcium 6.6 L Phosphorus Magnesium Ferritin 531.5 H Total Bilirubin AST 216 H ALT 5 L Lactate Dehydrogenase C-Reactive Protein Total Protein 4.0 L Albumin < 0.2 L Arterial Blood Glucose Arterial Blood Ionized Calcium Urine WBC (Auto) U Epithel Cells (Auto) Urine Creatinine Vancomycin Trough Coronavirus (PCR) Crossmatch 11/24/20 11/24/20 11/24/20 05:53 12:27 15:00 WBC RBC Hgb Hct RDW Plt Count Lymph % (Auto) [place] % (Auto) Lymph # (Auto) [place] # (Auto) Seg Neutrophils % Seg Neuts % (Manual) Lymphocytes % (Manual) Monocytes % (Manual) Seg Neutrophils # Seg Neutrophils # Man Lymphocytes # (Manual) Monocytes # (Manual) PT INR Fibrinogen D-Dimer Heparin Anti-Xa Level ABG pH POC ABG pCO2 POC ABG pO2 ABG pO2 ABG Hemoglobin ABG Oxyhemoglobin ABG Sodium ABG Potassium ABG Chloride ABG Glucose Carboxyhemoglobin Sodium Potassium Chloride Carbon Dioxide BUN Creatinine Glucose POC Glucose 107 H 63 L Hemoglobin A1c Lactic Acid Calcium Phosphorus Magnesium Ferritin Total Bilirubin AST ALT Lactate Dehydrogenase C-Reactive Protein Total Protein Albumin Arterial Blood Glucose Arterial Blood Ionized Calcium Urine WBC (Auto) U Epithel Cells (Auto) Urine Creatinine Vancomycin Trough 35.2 H Coronavirus (PCR) Crossmatch 11/24/20 11/25/20 23:44 04:00 WBC RBC Hgb Hct RDW Plt Count Lymph % (Auto) [place] % (Auto) Lymph # (Auto) [place] # (Auto) Seg Neutrophils % Seg Neuts % (Manual) Lymphocytes % (Manual) Monocytes % (Manual) Seg Neutrophils # Seg Neutrophils # Man Lymphocytes # (Manual) Monocytes # (Manual) PT INR Fibrinogen D-Dimer Heparin Anti-Xa Level ABG pH 7.508 H POC ABG pCO2 POC ABG pO2 ABG pO2 90.8 H ABG Hemoglobin 7.3 L ABG Oxyhemoglobin ABG Sodium ABG Potassium ABG Chloride ABG Glucose Carboxyhemoglobin Sodium Potassium Chloride Carbon Dioxide BUN Creatinine Glucose POC Glucose 67 L Hemoglobin A1c Lactic Acid Calcium Phosphorus Magnesium Ferritin Total Bilirubin AST ALT Lactate Dehydrogenase C-Reactive Protein Total Protein Albumin Arterial Blood Glucose Arterial Blood Ionized Calcium Urine WBC (Auto) U Epithel Cells (Auto) Urine Creatinine Vancomycin Trough Coronavirus (PCR) Crossmatch Chest x-ray: image reviewed (stable) Allied health notes reviewed: nursing
[2020-11-25 12:28] LABS: Hematocrit 25.7 % (30.3-42.9); Hemoglobin 8.6 gm/dl (10.1-14.3); Mean Corpuscular HGB Conc 33 % (30-34); Mean Corpuscular Volume 88 fl (79-97); Platelet Count 37 K/mm3 (140-440); Red Blood Count 2.91 M/mm3 (3.65-5.03); Red Cell Distribution Width 16.2 % (13.2-15.2)
[2020-11-25 12:38] LABS: INR 1.97 (0.87-1.13)
[2020-11-25 12:39] LABS: Partial Thromboplastin Time 34.2 Sec. (24.2-36.6)
--- NOTE | 2020-11-25 12:47 | Progress Note ---
Assessment and Plan Cultures: Blood culture no growth so far Respiratory culture: few MRSA, <25 WBC Covid PCR: Positive A/P: 85-year-old female past medical history obesity, chronic low back pain, depression admitted with COVID-19 #Sepsis with shock: Fever, leukocytosis resolved. Likely due to COVID-19 pneumonia/MRSA pneumonia. Completed course of vancomycin #Severe COVID-19 pneumonia: Was not remdesivir candidate due to renal function. Completed dexamethasone, status post 1 dose of Tocilizumab. #Acute hypoxemic respiratory failure: secondary to COVID-19 infection. Remains on the vent. #Shock liver: in the setting of code blue #Acute blood loss anemia: s/p transfusions #Thrombocytopenia: ? due to sepsis. Hem/onc following. #KATLYN #GI bleed: Status post EGD with gastric ulcer status post endoscopic treatment. #Nephrolithiasis: with associated hydronephrosis. Initial UA was normal, second was was most likely highly contaminated given large amounts of blood and epithelial cells, and operative notes not indicative of infection. most recent one still with significant blood, however in the setting of recent urological procedure and new fevers was treated with abx Recs: Completed course of IV vancomycin. Monitor off antibiotics Completed Decadron, Tocilizumab Poor prognosis Shelbie Batista MD, FACP [facility] ([facility] O: [phone] F: [phone] Subjective Date of service: 11/25/20 Principal diagnosis: Ac hypoxemic resp failure; COVID-19 infxn; Pneumonia; KATLYN; AMS; Sepsis Interval history: Afebrile. Remains on the vent. On Levophed. Weaned off vasopressin over the weekend. Objective - Exam Narrative Exam: Physical Exam (reviewed in chart to minimize risk of transmission) Constitutional: deferred Head, Ears, Nose: deferred Eyes: deferred Neck: deferred Oral: deferred Cardiovascular: deferred Respiratory: deferred GI: deferred Musculoskeletal: deferred Skin: deferred Hem/Lymphatic: deferred Psych: deferred Neurological: deferred - Constitutional Vitals: Vital Signs Temp Pulse Resp BP Pulse Ox 96.6 F L 78 22 190/71 99 11/25/20 12:00 11/25/20 11:31 11/25/20 11:31 11/25/20 07:50 11/25/20 11:31 Temperature -Last 24 Hours Temperature 96.6 F Temperature 96.6 F Temperature 96.8 F Temperature 97.2 F Temperature 97 F Temperature 98.2 F Temperature 97.0 F Temperature 96.8 F Temperature 97.1 F Temperature 96.6 F Temperature 96.6 F Temperature 96.1 F Temperature 95.7 F - Labs CBC & Chem 7: 11/25/20 12:00 11/24/20 Unknown Labs: Abnormal lab results 11/24/20 11/24/20 11/25/20 Range/Units 15:00 23:44 04:00 RBC (3.65-5.03) M/mm3 Hgb (10.1-14.3) gm/dl Hct (30.3-42.9) % RDW (13.2-15.2) % Plt Count (140-440) K/mm3 PT (12.2-14.9) Sec. INR (0.87-1.13) ABG pH 7.508 H (7.350-7.450) pH Units ABG pO2 90.8 H (80.0-90.0) mm Hg ABG Hemoglobin 7.3 L (12.0-16.0) gm/dl POC Glucose 67 L (70-105) mg/dL Vancomycin Trough 35.2 H (5.0-20.0) ug/mL 11/25/20 11/25/20 Range/Units 12:00 12:00 RBC 2.91 L (3.65-5.03) M/mm3 Hgb 8.6 L (10.1-14.3) gm/dl Hct 25.7 L D (30.3-42.9) % RDW 16.2 H (13.2-15.2) % Plt Count 37 L (140-440) K/mm3 PT 23.0 H (12.2-14.9) Sec. INR 1.97 H (0.87-1.13) ABG pH (7.350-7.450) pH Units ABG pO2 (80.0-90.0) mm Hg ABG Hemoglobin (12.0-16.0) gm/dl POC Glucose (70-105) mg/dL Vancomycin Trough (5.0-20.0) ug/mL
[2020-11-25 13:06] LABS: Albumin 1.8 g/dL (3.9-5); C-Reactive Protein 6.6 mg/dL (0.00-1.30); Calcium 6.3 mg/dL (8.4-10.2)
--- NOTE | 2020-11-25 13:46 | Progress Note ---
Assessment and Plan 1. Acute kidney injury: KATLYN in the setting of severe Covid infection. Patient is also hypotensive. Received IV contrast 11/13. CT abdomen showed non-obstructive 7 mm distal left ureteral stone. Low FeNa. Monitor renal function. Creatinine leveled off. Avoid nephrotoxic agents. Meds dosage based on GFR. 2. FEN: Hypernatremia, improving, monitor. Metabolic alkalosis, improved, monitor. Hypokalemia, replete K as needed, monitor. Replete Calcium. Monitor lytes and volume status. 3. Acute respiratory failure with hypoxemia: 2/2 Covid PNA. Currently on vent, wean as tolerated. 4. Shock: On Levophed. Monitor. 5. Covid PNA: Followed by ID. 6. L ureteral stone: S/p b/l stent. Seen by Urologist. 7. Elevated ALT & AST: Trend. 8. DM type 2: Monitor. Subjective: Patient was seen and examined at the bedside. Examination: General appearance: well-developed, appears stated age, intubated on vent HEENT: atraumatic, no icterus Neck: trachea midline Respiratory: MV sounds Heart: S1S2, regular, no murmur Abdomen: soft, bowel sounds heard, NT Integumentary: no obvious rash Neurologic: not responding Ext: LE and dependent edema noted Subjective Date of service: 11/25/20 Principal diagnosis: Ac hypoxemic resp failure; COVID-19 infxn; Pneumonia; KATLYN; AMS; Sepsis Objective - Vital Signs Vital signs: Vital Signs - 12hr 11/25/20 11/25/20 11/25/20 01:45 02:01 02:15 Temperature Pulse Rate 67 75 76 Pulse Rate [ From Monitor] Respiratory 18 25 H 23 Rate Blood Pressure O2 Sat by Pulse 100 99 100 Oximetry 11/25/20 11/25/20 11/25/20 02:31 02:45 03:01 Temperature Pulse Rate 80 77 82 Pulse Rate [ From Monitor] Respiratory 24 22 23 Rate Blood Pressure O2 Sat by Pulse 100 99 99 Oximetry 11/25/20 11/25/20 11/25/20 03:15 03:24 03:31 Temperature 97.2 F L Pulse Rate 81 80 Pulse Rate [ From Monitor] Respiratory 22 22 Rate Blood Pressure O2 Sat by Pulse 99 99 Oximetry 11/25/20 11/25/20 11/25/20 03:45 04:00 04:01 Temperature Pulse Rate 74 78 74 Pulse Rate [ 72 From Monitor] Respiratory 26 H 29 H Rate Blood Pressure 114/41 O2 Sat by Pulse 99 100 100 Oximetry 11/25/20 11/25/20 11/25/20 04:15 04:31 04:45 Temperature Pulse Rate 73 77 Pulse Rate [ From Monitor] Respiratory 21 19 Rate Blood Pressure O2 Sat by Pulse 100 99 100 Oximetry 11/25/20 11/25/20 11/25/20 05:01 05:15 05:31 Temperature Pulse Rate 98 H 94 H 85 Pulse Rate [ From Monitor] Respiratory 19 14 16 Rate Blood Pressure O2 Sat by Pulse 96 97 98 Oximetry 11/25/20 11/25/20 11/25/20 05:45 06:01 06:15 Temperature Pulse Rate 78 81 84 Pulse Rate [ From Monitor] Respiratory 16 14 19 Rate Blood Pressure O2 Sat by Pulse 99 99 99 Oximetry 11/25/20 11/25/20 11/25/20 06:31 06:45 07:00 Temperature 96.8 F L Pulse Rate 80 77 Pulse Rate [ From Monitor] Respiratory 14 15 Rate Blood Pressure O2 Sat by Pulse 98 98 Oximetry 11/25/20 11/25/20 11/25/20 07:01 07:15 07:31 Temperature Pulse Rate 83 74 78 Pulse Rate [ From Monitor] Respiratory 14 20 22 Rate Blood Pressure O2 Sat by Pulse 98 99 97 Oximetry 11/25/20 11/25/20 11/25/20 07:45 07:50 08:00 Temperature 96.6 F L Pulse Rate 78 79 71 Pulse Rate [ From Monitor] Respiratory 18 Rate Blood Pressure 190/71 O2 Sat by Pulse 99 100 97 Oximetry 11/25/20 11/25/20 11/25/20 08:01 08:15 08:31 Temperature Pulse Rate 79 86 86 Pulse Rate [ From Monitor] Respiratory 22 22 18 Rate Blood Pressure O2 Sat by Pulse 100 99 99 Oximetry 11/25/20 11/25/20 11/25/20 08:45 09:01 09:15 Temperature Pulse Rate 83 86 82 Pulse Rate [ From Monitor] Respiratory 24 23 18 Rate Blood Pressure O2 Sat by Pulse 99 99 99 Oximetry 11/25/20 11/25/20 11/25/20 09:31 09:45 10:01 Temperature Pulse Rate 82 80 77 Pulse Rate [ From Monitor] Respiratory 19 24 18 Rate Blood Pressure O2 Sat by Pulse 98 98 98 Oximetry 11/25/20 11/25/20 11/25/20 10:15 10:31 10:45 Temperature Pulse Rate 78 83 77 Pulse Rate [ From Monitor] Respiratory 22 23 20 Rate Blood Pressure O2 Sat by Pulse 98 98 99 Oximetry 11/25/20 11/25/20 11/25/20 11:01 11:15 11:31 Temperature Pulse Rate 81 78 78 Pulse Rate [ From Monitor] Respiratory 22 27 H 22 Rate Blood Pressure O2 Sat by Pulse 99 99 99 Oximetry 11/25/20 11/25/20 11/25/20 11:45 12:00 12:01 Temperature 96.6 F L Pulse Rate 79 77 77 Pulse Rate [ From Monitor] Respiratory 22 23 Rate Blood Pressure O2 Sat by Pulse 98 99 98 Oximetry 11/25/20 11/25/20 11/25/20 12:15 12:31 12:45 Temperature Pulse Rate 77 79 76 Pulse Rate [ From Monitor] Respiratory 19 19 22 Rate Blood Pressure O2 Sat by Pulse 98 98 99 Oximetry 11/25/20 13:01 Temperature Pulse Rate 74 Pulse Rate [ From Monitor] Respiratory 26 H Rate Blood Pressure O2 Sat by Pulse 99 Oximetry - Lab 11/25/20 12:00 11/25/20 12:00 Most recent lab results ABG pH 7.508 pH Units (7.350-7.450) H 11/25/20 04:00 ABG pCO2 27.1 mm Hg 11/25/20 04:00 ABG pO2 90.8 mm Hg (80.0-90.0) H 11/25/20 04:00 ABG HCO3 21.0 mmol/L (20.0-26.0) 11/25/20 04:00 ABG O2 Saturation 97.6 % (95.0-99.0) 11/25/20 04:00 Calcium 6.3 mg/dL (8.4-10.2) L 11/25/20 12:00 Phosphorus 3.70 mg/dL (2.5-4.5) 11/24/20 05:30 Magnesium 2.00 mg/dL (1.7-2.3) 11/24/20 05:30 Urine Creatinine 80.2 mg/dL (0.1-20.0) H 11/14/20 06:15 Urine Sodium 28 mmol/L 11/14/20 06:15 Medications & Allergies - Medications Allergies/Adverse Reactions: Allergies morphine Adverse Reaction (Verified 05/26/13 19:22) Nausea Home Medications: Home Medications Medication Instructions Recorded Confirmed Last Taken Type Acetaminophen [Tylenol] 325 mg PO DAILY #10 tablet 05/26/13 11/24/20 10/16/14 Rx Baclofen [Lioresal] 10 mg PO TID PRN 05/26/13 11/24/20 10/16/14 History Diazepam [Valium] 10 mg PO BID 05/26/13 11/24/20 10/16/14 History PARoxetine [Paxil] 10 mg PO DAILY 05/26/13 11/24/20 10/16/14 19:00 History Quetiapine Fumarate [SEROquel XR] 200 mg PO DAILY 05/26/13 11/24/20 10/16/14 History rOPINIRole [Requip] 1 mg PO QHS 05/26/13 11/24/20 10/16/14 19:00 History QUEtiapine [SEROquel] 200 mg PO QHS 05/28/13 11/24/20 10/16/14 19:00 History Famotidine [Pepcid] 10 mg PO BID #60 tablet 06/02/13 11/24/20 10/16/14 Rx levoFLOXacin [Levaquin] 750 mg PO QDAY #7 tablet 06/02/13 11/24/20 10/16/14 Rx metroNIDAZOLE [Flagyl] 500 mg PO Q8HR #30 tablet 06/02/13 11/24/20 10/16/14 Rx Hydromorphone HCl [Dilaudid] 4 mg PO PRN 10/17/14 11/24/20 10/16/14 History Oxycodone HCl/Acetaminophen 1 each PO Q6HR PRN 10/17/14 11/24/20 10/16/14 History [Percocet 10-325 mg] Oxycodone HCl/Acetaminophen 1 each PO Q6HR PRN #30 tablet 10/18/14 11/24/20 Unknown Rx [Percocet 10-325 mg] Active Medications: Generic Name Dose Route Start Last Admin Trade Name Freq PRN Reason Stop Dose Admin Acetaminophen 650 mg 11/11/20 22:11 11/19/20 11:30 Acetaminophen 325 Mg Tab PO 650 mg Q4H PRN Administration Pain MILD(1-3)/Fever >100.5/ERAZO Albuterol 2.5 mg 11/13/20 07:40 Albuterol 2.5 Mg/3 Ml Nebu IH Q4HRT PRN Shortness Of Breath Lipase/Protease/Amylase 1 each 11/13/20 17:32 Lipase 10,500/Protease 25,000/Amylase 43,750 (Units) Dr Cap FEEDTUBE PRN PRN For Clogged Feeding Tube Ascorbic Acid 500 mg 11/13/20 22:00 11/25/20 10:27 Ascorbic Acid 500 Mg Tab PO Not Given BID CARLOS Dextrose 50 ml 11/13/20 16:43 11/25/20 02:12 Dextrose 50% In Water (25gm) 50 Ml Syringe IV 50 ml Q30MIN PRN Administration Hypoglycemia Protocol Fentanyl 50 mcg 11/13/20 05:33 Fentanyl 100 Mcg/2 Ml Inj IV Q10MIN PRN ANALGESIA Hydrophilic Ointment 1 applic 11/13/20 05:33 Lip Therapy Vaseline TP Q2HR PRN Dry Lips Fentanyl Citrate 2,000 mcg in 100 mls @ 3.81 mls/hr 11/13/20 06:00 11/21/20 15:00 Fentanyl Drip Premix IV 0 mcg/kg/hr TITR CARLOS 0 mls/hr Titration Protocol 1 MCG/KG/HR NORepinephrine/NS 8 MG-250 ML 8 mg in 250 mls @ 3.75 mls/hr 11/13/20 15:00 11/25/20 11:51 Norepinephrine/Ns 8 Mg-250 Ml (Double Conc) IV 6 mcg/min TITRATE CARLOS 11.25 mls/hr Titration Protocol 2 MCG/MIN Vasopressin 20 unit/ Sodium 101 mls @ 9.09 mls/hr 11/19/20 09:00 11/23/20 14:54 Chloride IV 0 units/min TITR CARLOS 0 mls/hr Titration Protocol 0.03 UNITS/MIN Phenylephrine HCl 100 mg/ 100 mls @ 3 mls/hr 11/21/20 08:15 11/21/20 17:53 Sodium Chloride IV 0 mcg/min TITR CARLOS 0 mls/hr Titration Protocol 50 MCG/MIN Epinephrine 16 mg/ Sodium 250 mls @ 1.875 mls/hr 11/21/20 11:00 11/22/20 01:00 Chloride IV 0 mcg/min TITR CARLOS 0 mls/hr Titration Protocol 2 MCG/MIN Pantoprazole Sodium 80 mg/ 100 mls @ 10 mls/hr 11/22/20 21:14 11/25/20 04:39 Sodium Chloride IV 11/25/20 14:00 8 mg/hr DIRECT CARLOS 10 mls/hr Administration 8 MG/HR Dextrose/Sodium Chloride 1,000 mls @ 75 mls/hr 11/25/20 14:00 D5/0.45ns IV 11/27/20 03:19 DIRECT CARLOS Insulin Human Regular 0 units 11/21/20 00:00 11/25/20 05:51 Insulin Regular, Human 100 Units/1 Ml SUB-Q Not Given Q6HR [facility] Protocol Multi-Ingred Cream/Lotion/Oil/Oint 1 applic 11/13/20 05:33 Mineral Oil/Petrolatum, White Ophth Oint 3.5 Gm OU Q4HR PRN Dry Eye(s) Pantoprazole Sodium 40 mg 11/25/20 22:00 Pantoprazole 40 Mg Inj IV BID CARLOS Simple Syrup 15 ml 11/13/20 17:32 Simple Syrup 15 Ml FEEDTUBE PRN PRN Hypoglycemia Simple Syrup 30 ml 11/13/20 17:32 Simple Syrup 15 Ml FEEDTUBE PRN PRN Hypoglycemia Sodium Bicarbonate 325 mg 11/13/20 17:32 Sodium Bicarbonate 325 Mg Tab FEEDTUBE PRN PRN For Clogged Feeding Tube Sodium Chloride 10 ml 11/12/20 10:00 11/25/20 11:47 Sodium Chloride 0.9% 10 Ml Flush Syringe IV 10 ml BID CARLOS Administration Sodium Chloride 10 ml 11/11/20 22:11 11/22/20 20:50 Sodium Chloride 0.9% 10 Ml Flush Syringe IV 10 ml PRN PRN Administration LINE FLUSH Zinc Sulfate 220 mg 11/13/20 22:00 11/25/20 10:27 Zinc Sulfate 220 Mg Cap PO Not Given BID CARLOS
[2020-11-25] MEDS ORDERED: POTASSIUM CHLORIDE ER 20 MEQ TAB PO ONE (14:00)
--- NOTE | 2020-11-25 14:40 | Event Note ---
Date: 11/25/20 Complicated situation. Patient is starting to stabilize, but still on Levophed. Patient is not showing any movements of hands or feet which she has not shown since being intubated. She has not being sedated and still does not demonstrate movement. No left neck hematoma. Has been made DNR due to GI bleed and Covid pneumonia. Not stable for heparin drip given recent near fatal massive GI bleed. At high risk for left carotid artery occlusion and stroke with indwelling carotid line. Not stable enough for left carotid artery stent graft. Prior to stent graft placement, will need repeat CT angiogram of the neck. Also in ARF. We will continue to monitor patient. Overall prognosis is quite poor.
[2020-11-25] MEDS: D5W/0.45% NACL 1,000 ML IV SCH (14:59)
[2020-11-25] MEDS ORDERED: CALCIUM GLUCONATE 2,000 MG in SODIUM CHLORIDE 0.9% 100 ML IV ONE (15:00)
[2020-11-25] MEDS ORDERED: POTASSIUM CHLORIDE 20 MEQ PACKET FEEDTUBE ONE (15:00)
[2020-11-25] MEDS: POTASSIUM CHLORIDE 20 MEQ 20 MEQ/100 ML BAG IV SCH ×2 (15:05→17:28)
[2020-11-25] MEDS ORDERED: MAGNESIUM SULFATE 3 GM in SODIUM CHLORIDE 0.9% 100 ML IV ONE (16:00)
[2020-11-25 16:31] LABS: ABG Base Excess -3.6 mmol/L (-2.0-3.0); ABG HCO3 18.6 mmol/L (20.0-26.0); ABG Methemoglobin 0.4 % (0.0-1.5); ABG Oxygen Saturation 90.4 % (95.0-99.0); ABG PCO2 24.1 mm Hg; ABG PH 7.505 pH Units (7.350-7.450); ABG PO2 52.7 mm Hg (80.0-90.0)
[2020-11-25 17:23] LABS: Heparin-Induced Platelet Antib Negative (Negative); Unfractionated Heparin Negative (Negative)
[2020-11-25] MEDS: PANTOPRAZOLE 40 MG INJ IV SCH (21:30)
[2020-11-25] MEDS: VASOPRESSIN 20 UNIT in SODIUM CHLORIDE 0.9% 100 ML IV SCH (23:51)
[2020-11-26] MEDS: NORepinephrine/NS 8 MG-250 ML 8 MG/250 ML INFUS..BTL IV SCH ×4 (01:18→18:53)
--- NOTE | 2020-11-26 03:24 | XRay Report ---
CHEST 1 VIEW 11/26/2020 1:56 AM INDICATION / CLINICAL INFORMATION: sob. COMPARISON: 11/25/2020 FINDINGS: SUPPORT DEVICES: Support lines and tubes project in expected position HEART / MEDIASTINUM: No significant abnormality. LUNGS / PLEURA: Bilateral pleural-parenchymal disease, unchanged No pneumothorax. ADDITIONAL FINDINGS: No significant additional findings. IMPRESSION: 1. No significant interval change Signer Name: Guanakito Orellana MD Signed: 11/26/2020 3:19 AM Workstation Name: [id number]
[2020-11-26] MEDS: INSULIN REGULAR, HUMAN 100 UNITS/1 ML SUB-Q SCH ×4 (06:39→18:26)
[2020-11-26] MEDS: VASOPRESSIN 20 UNIT in SODIUM CHLORIDE 0.9% 100 ML IV SCH ×3 (08:00→22:48)
[2020-11-26] MEDS: D5W/0.45% NACL 1,000 ML IV SCH (08:22)
--- NOTE | 2020-11-26 08:27 | Progress Note ---
Assessment and Plan 1. Acute kidney injury: KATLYN in the setting of severe Covid infection. Patient is also hypotensive. Received IV contrast 11/13. CT abdomen showed non-obstructive 7 mm distal left ureteral stone. Low FeNa. Monitor renal function. Creatinine leveled off. Avoid nephrotoxic agents. Meds dosage based on GFR. 2. FEN: Hypernatremia, improved, monitor. Metabolic alkalosis, improved, monitor. Hypokalemia, replete K as needed, monitor. Replete Calcium. Monitor lytes and volume status. 3. Acute respiratory failure with hypoxemia: 2/2 Covid PNA. Currently on vent, wean as tolerated. 4. Shock: On Levophed and Vasopressin. Monitor. 5. Covid PNA: Followed by ID. 6. L ureteral stone: S/p b/l stent. Seen by Urologist. 7. Elevated ALT & AST: Trend. 8. DM type 2: Monitor. Subjective: Patient was seen and examined at the bedside. Examination: General appearance: well-developed, appears stated age, intubated on vent HEENT: atraumatic, no icterus Neck: trachea midline Respiratory: MV sounds Heart: S1S2, regular, no murmur Abdomen: soft, bowel sounds heard, NT Integumentary: no obvious rash Neurologic: not responding Ext: LE and dependent edema noted Subjective Date of service: 11/26/20 Principal diagnosis: Ac hypoxemic resp failure; COVID-19 infxn; Pneumonia; KATLYN; AMS; Sepsis Objective - Vital Signs Vital signs: Vital Signs - 12hr 11/25/20 11/25/20 11/25/20 20:29 20:31 20:45 Temperature Pulse Rate 95 H 97 H 96 H Respiratory 30 H 32 H Rate Blood Pressure 107/47 114/42 O2 Sat by Pulse 98 99 98 Oximetry 11/25/20 11/25/20 11/25/20 21:00 21:15 21:31 Temperature Pulse Rate 92 H 97 H 90 Respiratory 32 H 31 H 29 H Rate Blood Pressure 88/36 88/36 100/37 O2 Sat by Pulse 97 98 Oximetry 11/25/20 11/25/20 11/25/20 21:45 22:00 22:09 Temperature Pulse Rate 100 H 99 H 100 H Respiratory 24 24 28 H Rate Blood Pressure 100/37 90/45 90/45 O2 Sat by Pulse 98 97 97 Oximetry 11/25/20 11/25/20 11/25/20 22:15 22:31 22:45 Temperature Pulse Rate 101 H 104 H 104 H Respiratory 28 H 30 H 27 H Rate Blood Pressure O2 Sat by Pulse 97 97 96 Oximetry 11/25/20 11/25/20 11/25/20 23:01 23:15 23:31 Temperature Pulse Rate 104 H 108 H 105 H Respiratory 31 H 29 H 30 H Rate Blood Pressure O2 Sat by Pulse 84 97 96 Oximetry 11/25/20 11/25/20 11/26/20 23:45 23:52 00:00 Temperature 96.8 F L Pulse Rate 108 H 107 H 107 H Respiratory 31 H 32 H Rate Blood Pressure 112/47 98/45 O2 Sat by Pulse 96 97 96 Oximetry 11/26/20 11/26/20 11/26/20 00:15 00:31 00:45 Temperature Pulse Rate 104 H 104 H 104 H Respiratory 30 H 33 H 32 H Rate Blood Pressure O2 Sat by Pulse 96 96 96 Oximetry 11/26/20 11/26/20 11/26/20 01:01 01:15 01:31 Temperature Pulse Rate 106 H 108 H 108 H Respiratory 33 H 28 H 35 H Rate Blood Pressure O2 Sat by Pulse 96 96 Oximetry 11/26/20 11/26/20 11/26/20 01:45 02:01 02:15 Temperature Pulse Rate 107 H 109 H 111 H Respiratory 14 22 30 H Rate Blood Pressure 132/94 O2 Sat by Pulse 96 95 97 Oximetry 11/26/20 11/26/20 11/26/20 02:31 02:37 02:45 Temperature Pulse Rate 112 H 111 H 110 H Respiratory 29 H 27 H Rate Blood Pressure 132/54 O2 Sat by Pulse 97 96 96 Oximetry 11/26/20 11/26/20 11/26/20 03:01 03:15 03:26 Temperature 97.3 F L Pulse Rate 114 H 114 H Respiratory 31 H 32 H Rate Blood Pressure O2 Sat by Pulse 95 96 Oximetry 11/26/20 11/26/20 11/26/20 03:31 03:45 04:00 Temperature Pulse Rate 112 H 116 H 114 H Respiratory 25 H 38 H Rate Blood Pressure O2 Sat by Pulse 98 96 98 Oximetry 11/26/20 11/26/20 11/26/20 04:01 04:15 04:31 Temperature Pulse Rate 114 H 115 H 118 H Respiratory 32 H 18 31 H Rate Blood Pressure O2 Sat by Pulse 96 94 93 Oximetry 11/26/20 11/26/20 11/26/20 04:45 05:01 05:15 Temperature Pulse Rate 115 H 115 H 116 H Respiratory 17 21 17 Rate Blood Pressure O2 Sat by Pulse 93 92 90 Oximetry 11/26/20 11/26/20 11/26/20 05:18 05:31 05:45 Temperature Pulse Rate 112 H 114 H 111 H Respiratory 40 H 37 H Rate Blood Pressure 132/54 O2 Sat by Pulse 92 74 L Oximetry 11/26/20 11/26/20 11/26/20 06:01 06:15 06:31 Temperature Pulse Rate 113 H 111 H 112 H Respiratory 33 H 16 17 Rate Blood Pressure O2 Sat by Pulse 66 L Oximetry 11/26/20 11/26/20 11/26/20 06:45 07:01 07:22 Temperature 96.6 F L Pulse Rate 112 H 113 H Respiratory 20 16 Rate Blood Pressure O2 Sat by Pulse Oximetry 11/26/20 07:54 Temperature Pulse Rate 111 H Respiratory Rate Blood Pressure 87/40 O2 Sat by Pulse 91 Oximetry - Lab 11/26/20 08:00 11/26/20 08:00 Most recent lab results ABG pH 7.355 (7.320-7.450) 11/26/20 05:00 ABG pCO2 24.1 mm Hg 11/25/20 15:43 ABG pO2 52.7 mm Hg (80.0-90.0) L 11/25/20 15:43 ABG HCO3 18.6 mmol/L (20.0-26.0) L 11/25/20 15:43 ABG O2 Saturation 88.4 (0-100) 11/26/20 05:00 Calcium 6.3 mg/dL (8.4-10.2) L 11/25/20 12:00 Phosphorus 3.70 mg/dL (2.5-4.5) 11/24/20 05:30 Magnesium 1.60 mg/dL (1.7-2.3) L 11/25/20 14:00 Urine Creatinine 80.2 mg/dL (0.1-20.0) H 11/14/20 06:15 Urine Sodium 28 mmol/L 11/14/20 06:15 Medications & Allergies - Medications Allergies/Adverse Reactions: Allergies morphine Adverse Reaction (Verified 05/26/13 19:22) Nausea Home Medications: Home Medications Medication Instructions Recorded Confirmed Last Taken Type Acetaminophen [Tylenol] 325 mg PO DAILY #10 tablet 05/26/13 11/24/20 10/16/14 Rx Baclofen [Lioresal] 10 mg PO TID PRN 05/26/13 11/24/20 10/16/14 History Diazepam [Valium] 10 mg PO BID 05/26/13 11/24/20 10/16/14 History PARoxetine [Paxil] 10 mg PO DAILY 05/26/13 11/24/20 10/16/14 19:00 History Quetiapine Fumarate [SEROquel XR] 200 mg PO DAILY 05/26/13 11/24/20 10/16/14 History rOPINIRole [Requip] 1 mg PO QHS 05/26/13 11/24/20 10/16/14 19:00 History QUEtiapine [SEROquel] 200 mg PO QHS 05/28/13 11/24/20 10/16/14 19:00 History Famotidine [Pepcid] 10 mg PO BID #60 tablet 06/02/13 11/24/20 10/16/14 Rx levoFLOXacin [Levaquin] 750 mg PO QDAY #7 tablet 06/02/13 11/24/20 10/16/14 Rx metroNIDAZOLE [Flagyl] 500 mg PO Q8HR #30 tablet 06/02/13 11/24/20 10/16/14 Rx Hydromorphone HCl [Dilaudid] 4 mg PO PRN 10/17/14 11/24/20 10/16/14 History Oxycodone HCl/Acetaminophen 1 each PO Q6HR PRN 10/17/14 11/24/20 10/16/14 History [Percocet 10-325 mg] Oxycodone HCl/Acetaminophen 1 each PO Q6HR PRN #30 tablet 10/18/14 11/24/20 Unknown Rx [Percocet 10-325 mg] Active Medications: Generic Name Dose Route Start Last Admin Trade Name Freq PRN Reason Stop Dose Admin Acetaminophen 650 mg 11/11/20 22:11 11/19/20 11:30 Acetaminophen 325 Mg Tab PO 650 mg Q4H PRN Administration Pain MILD(1-3)/Fever >100.5/ERAZO Albuterol 2.5 mg 11/13/20 07:40 Albuterol 2.5 Mg/3 Ml Nebu IH Q4HRT PRN Shortness Of Breath Lipase/Protease/Amylase 1 each 11/13/20 17:32 Lipase 10,500/Protease 25,000/Amylase 43,750 (Units) Dr Cap FEEDTUBE PRN PRN For Clogged Feeding Tube Ascorbic Acid 500 mg 11/13/20 22:00 11/25/20 21:30 Ascorbic Acid 500 Mg Tab PO 500 mg BID CARLOS Administration Dextrose 50 ml 11/13/20 16:43 11/25/20 17:29 Dextrose 50% In Water (25gm) 50 Ml Syringe IV 50 ml Q30MIN PRN Administration Hypoglycemia Protocol Fentanyl 50 mcg 11/13/20 05:33 Fentanyl 100 Mcg/2 Ml Inj IV Q10MIN PRN ANALGESIA Hydrophilic Ointment 1 applic 11/13/20 05:33 Lip Therapy Vaseline TP Q2HR PRN Dry Lips Fentanyl Citrate 2,000 mcg in 100 mls @ 3.81 mls/hr 11/13/20 06:00 11/21/20 15:00 Fentanyl Drip Premix IV 0 mcg/kg/hr TITR CARLOS 0 mls/hr Titration Protocol 1 MCG/KG/HR NORepinephrine/NS 8 MG-250 ML 8 mg in 250 mls @ 3.75 mls/hr 11/13/20 15:00 11/26/20 08:00 Norepinephrine/Ns 8 Mg-250 Ml (Double Conc) IV 24 mcg/min TITRATE CARLOS 45 mls/hr Administration Protocol 2 MCG/MIN Vasopressin 20 unit/ Sodium 101 mls @ 9.09 mls/hr 11/19/20 09:00 11/26/20 08:00 Chloride IV 0.03 units/min TITR CARLOS 9.09 mls/hr Administration Protocol 0.03 UNITS/MIN Phenylephrine HCl 100 mg/ 100 mls @ 3 mls/hr 11/21/20 08:15 11/21/20 17:53 Sodium Chloride IV 0 mcg/min TITR CARLOS 0 mls/hr Titration Protocol 50 MCG/MIN Epinephrine 16 mg/ Sodium 250 mls @ 1.875 mls/hr 11/21/20 11:00 11/22/20 01:00 Chloride IV 0 mcg/min TITR CARLOS 0 mls/hr Titration Protocol 2 MCG/MIN Dextrose/Sodium Chloride 1,000 mls @ 75 mls/hr 11/25/20 14:00 11/26/20 08:22 D5/0.45ns IV 11/27/20 03:19 75 mls/hr DIRECT CARLOS Administration Insulin Human Regular 0 units 11/21/20 00:00 11/26/20 06:39 Insulin Regular, Human 100 Units/1 Ml SUB-Q Not Given Q6HR CARLOS Protocol Multi-Ingred Cream/Lotion/Oil/Oint 1 applic 11/13/20 05:33 Mineral Oil/Petrolatum, White Ophth Oint 3.5 Gm OU Q4HR PRN Dry Eye(s) Pantoprazole Sodium 40 mg 11/25/20 22:00 11/25/20 21:30 Pantoprazole 40 Mg Inj IV 40 mg BID CARLOS Administration Simple Syrup 15 ml 11/13/20 17:32 Simple Syrup 15 Ml FEEDTUBE PRN PRN Hypoglycemia Simple Syrup 30 ml 11/13/20 17:32 Simple Syrup 15 Ml FEEDTUBE PRN PRN Hypoglycemia Sodium Bicarbonate 325 mg 11/13/20 17:32 Sodium Bicarbonate 325 Mg Tab FEEDTUBE PRN PRN For Clogged Feeding Tube Sodium Chloride 10 ml 11/12/20 10:00 11/25/20 21:30 Sodium Chloride 0.9% 10 Ml Flush Syringe IV 10 ml BID CARLOS Administration Sodium Chloride 10 ml 11/11/20 22:11 11/22/20 20:50 Sodium Chloride 0.9% 10 Ml Flush Syringe IV 10 ml PRN PRN Administration LINE FLUSH Zinc Sulfate 220 mg 11/13/20 22:00 11/25/20 21:30 Zinc Sulfate 220 Mg Cap PO 220 mg BID CARLOS Administration
[2020-11-26 09:12] LABS: Albumin 1.3 g/dL (3.9-5)
[2020-11-26 09:15] LABS: Calcium 5.8 mg/dL (8.4-10.2)
[2020-11-26 09:20] LABS: INR 3.57 (0.87-1.13)
[2020-11-26 09:47] LABS: Hematocrit 26.8 % (30.3-42.9); Hemoglobin 8.6 gm/dl (10.1-14.3); Mean Corpuscular HGB Conc 32 % (30-34); Mean Corpuscular Volume 93 fl (79-97); Red Blood Count 2.88 M/mm3 (3.65-5.03); Red Cell Distribution Width 17.7 % (13.2-15.2)
[2020-11-26 10:20] LABS: Partial Thromboplastin Time 41.1 Sec. (24.2-36.6)
[2020-11-26] MEDS: PANTOPRAZOLE 40 MG INJ IV SCH ×2 (10:26→22:25)
[2020-11-26] MEDS: ZINC SULFATE 220 MG CAP PO SCH ×2 (10:26→22:25)
[2020-11-26] MEDS: ASCORBIC ACID 500 MG TAB PO SCH ×2 (10:26→22:25)
[2020-11-26] MEDS ORDERED: POTASSIUM CHLORIDE 20 MEQ PACKET FEEDTUBE ONE (11:00)
[2020-11-26] MEDS ORDERED: CALCIUM GLUCONATE 2,000 MG in SODIUM CHLORIDE 0.9% 100 ML IV ONE (11:30)
--- NOTE | 2020-11-26 11:35 | Progress Note ---
Assessment and Plan Assessment and plan: Assessment and Plan This is an 85-year-old female admitted with acute hypoxic respiratory failure, COVID-19 pneumonia and septic shock Neuro: Acute metabolic encephalopathy, H/O lumbar compression fracture -fentanyl for pain -Supportive care -DNR -family updated on plan of care Cardio: s/p VF cardiac arrest, Hypotension, inadvertent placement of carotid artery central venous line - map goal 65 -on vaso/levo -Blood pressure monitoring via femoral kyle -Vascular surgery/interventional radiology consulted, appreciate recommendations -Patient was on a Heparin drip to prevent thrombus but this was discontinued d/t bleeding/cougulopahty -see code sheet from 11/21 for details -SR-ST -on levo for MAP goal of 65 -natural resources technician unable to get echo due to poor windows due to air Respiratory: Acute hypoxemic respiratory failure -[facility] consulted, appreciate recommendations -Intubated 11/13/2020 -11/24 ABG and CXR reviewed -AM vent settings: 8.00 ETT at 20 lips -CMV 400/6/.60 - placed on PSV trial with p-supp at 16 cm H2O -VAP bundle -Serial ABGs, CXR -AM xray chest noted GI: Acute Blood loss anemia, GI bleed, Bleeding Gastric ulcer, transaminitis, Severe protein malnutrition -GI consulted, appreciate recommendations -Ntr consulted, appreciate recommendations: On tube feedings -11/11 abdomen/pelvis CT, see report for findings -Protonix BID -Serial H&H -11/20: EGD shows bleeding gastric ulcer which was banded -Trend CBC and LFTs -TF to start at 10 ml/h and advance to goal as tolerated reglan added due to concerns for high residuals - continue to hold CT angio abd & Pelvis till more as long as H&H stable and no gross bleeding : Acute kidney injury, left ureteral stone, metabolic alkalosis, hypocalcemia, hypokalemia -Nephrology, urology consulted, appreciate recommendations -Strict intake and output -pt was net pos 254 ml over 24 hurs -Daily weights -Avoid nephrotoxic medications -Renally dose medications -S/p bilateral stent -s/p IV calcium with PO supplements -D 5 1/2NS at 75 ml/h x 2 l -k and ca replaced today -Cr 1.7 -AM labs ordered ID: Septic shock, COVID-19 pneumonia, UTI -MRSA 11/13 sputum culture -Infectious disease consulted, appreciate recommendations -ID restarted abx : vancomycin and cefepime given new fevers and worsening white count on 11/20 -11/14 blood cultures x2 no growth to date -COVID-19 PCR + on 11/11 -Patient not a candidate for remdesivir due to renal failure -S/p Actemra -Dexamethasone for 10 days -Zinc/vitamin C -Trend COVID-19 inflammatory markers -Droplet/isolation precautions -wound consult placed and pending for sacral wound Endo: DM II -SSI -Hemoglobin A1c 6.6 -Accu-Cheks every 4 hours -Avoid hypoglycemia Heme: Acute GI bleed, elevated D-dimer, Leukocytosis, Supratheraputic INR, Thrombocytopenia -GI consulted, appreciate recommendations -SCDs to bilateral lower extremities while in bed -Transfuse for hemoglobin less than 7;\ -per GI : hgb goal >7, Platelet >50 K, and INR <1.5 -s/p heparin gtt -per GI: If on-going bleeding or drop in H/H again, recommend CTA to help localize the bleeding -Trend CBC, coags -Heme following -plt goal 20 unless bleeding -remains off AC given risk outweighs benefit at this time -HIT pending -trend INR The high probability of a clinically significant, sudden or life threatening deterioration of the [multi] system(s) required my full and direct attention, intervention and personal management. The aggregate critical care time was [60] minutes. This time is in addition to time spent performing reported procedures but includes the following: [x] Data Review and interpretation [x] Patient assessment and monitoring of vital signs [x] Documentation [x] Medication orders and management Disposition Plan: icu Total Time Spent with Patient (Minutes): 60 History Interval history: This is a 85-year-old female with obesity, chronic low back pain, chronic UTI, muscle spasm, and depression who presents to the emergency department on 11/11 with complaints of nausea/vomiting and decreased p.o. intake for 1 week and complains of mild diarrhea. Patient is bedridden and nonambulatory and oriented to self. Her patient's daughter EMS was called to assess and they gave the patient IV fluids but did not transfer the patient. On 11/11 EMS was contacted again and due to persistent vomiting and apparent small amount of blood in vomit patient was transferred to [facility] for further evaluation and treatment. Upon presentation to the emergency department patient was hypoxic on room air with SPO2 of 88 to 90% and continue to have emesis. Work-up in the emergency department revealed leukocytosis, thrombocytosis, acute hypoxic respiratory failure, SIRS. Patient was admitted as a COVID-19 PUI with acute hypoxic respiratory failure. 11/12/2020 Patient doing well, Discussed with daughter at length about her prognosis and treatment, No nausea vomiting since morning Coronavirus PCR came positive 11/13/2020 Patient coded last night and was intubated, ROSC. Patient on vent, Ict Business Development Manager consult and ID consult 11/14/2020 Patient intubated, Weaning in progress 11/15/2020; patient remains intubated, on vasopressors for septic shock. Doris lly ill, poor prognosis, discussed with daughter Kirstin who understands the severity of illness, she wants to talk to the family. If the family agrees she is considering DNR/withdrawal of care, I informed patient's nurse 11/16/2020; Patient remains intubated, on Levophed, Severe sepsis due to COVID-19 pneumonia, critically ill, on heparin drip 11/17/2020; Patient remains critically ill. Septic shock on norepinephrine. Intubated on vent, Very poor prognosis Family unable to decide the goals of treatment CODE STATUS; Recommend palliative care/hospice 11/18: PICC team consulted for placement of PICC, patient noted to have minimal output from NG tube and tube feeding will be restarted, patient will be left with Reglan. CCM decrease PEEP. Hypocalcemia and hypomagnesemia repleted. 11/19: Patient's H/H is trending down, having dark stools via FMS and GI was consulted today. Placed on PPI and NG tube to low normal suction, start stool guaiac positive. Per CCM discontinue Lind catheter. Patient will now be on every 6 H&H and will to be transfused with 2 units PRBC. Long family meeting conducted today with hospitalist, CCM and administration. 11/20: GI at bedside to perform endoscopy, patient's blood pressure has been labile today and RN has been going up and down on vasopressors. Patient is still having melena and received 1 unit PRBC yesterday evening. 11/21: Patient midnight h/h noted to be 10/30 this morning from 12/31 prior and two units prbc were ordered. Repeat hbg 6.05/01. Patient had a cardiac arrest today (see event note/code sheet for details). Received 2 additional prbc and 1 ffp. Coags pending. Family updated and code status changed. 11/22: H/H remains stable, pt remains on vasopressors and having melana. Thrombocytopenic today and 1 unit plts ordered. HIT ordered. 11/23: Patient's H/H this morning dropped to 9.6/28.8 from . Patient remains alkalotic, hyponatremic and hypokalemic. Patient's IV fluids changed to calcium repleted. Patient remains on vasopressors. I updated daughter Kirstin today 11/24: Hypokalemia which was repleted. Plts 28 and given plts today/INR 1.95-> given FFP. 11-25 no acute events overnight - no acute events overnight Disposition Plan: icu Total Time Spent with Patient (Minutes): 60 History Interval history: no acute events Hospitalist Physical - Constitutional Vitals: Temp Pulse Resp BP Pulse Ox 96.6 F L 111 H 19 116/53 92 11/26/20 07:22 11/26/20 11:21 11/26/20 10:15 11/26/20 11:21 11/26/20 11:21 General appearance: Present: no acute distress, other (Intubated, not interactive) - Neck Neck: Present: supple - Respiratory Respiratory effort: normal - Cardiovascular Rhythm: regular Heart Sounds: Present: S1 & S2 - Abdominal General gastrointestinal: soft - Integumentary Integumentary: Present: clear, warm, dry - Psychiatric Psychiatric: other - Neurologic Neurologic: other - Allied Health Allied health notes reviewed: nursing, RT, social work, case management HEART Score - HEART Score Age: > 65 Risk factors: 1-2 risk factors Troponin: Troponin T < 0.010 ng/mL (0.00-0.029) 11/11/20 13:39 - Critical Actions Critical Actions: 0-3 pts:0.9-1.7%risk of adverse cardiac event.Candidate for discharge Results - Labs CBC & Chem 7: 11/26/20 08:00 11/26/20 08:00 Labs: Laboratory Last Values WBC 2.6 K/mm3 (4.5-11.0) L 11/26/20 08:00 RBC 2.88 M/mm3 (3.65-5.03) L 11/26/20 08:00 Hgb 8.6 gm/dl (10.1-14.3) L 11/26/20 08:00 Hct 26.8 % (30.3-42.9) L 11/26/20 08:00 MCV 93 fl (79-97) 11/26/20 08:00 MCH 30 pg (28-32) 11/26/20 08:00 MCHC 32 % (30-34) 11/26/20 08:00 RDW 17.7 % (13.2-15.2) H 11/26/20 08:00 Plt Count 37 K/mm3 (140-440) L 11/25/20 12:00 Lymph % (Auto) 5.7 % (13.4-35.0) L 11/13/20 05:23 [place] % (Auto) 9.0 % (0.0-7.3) H 11/13/20 05:23 Eos % (Auto) 0.0 % (0.0-4.3) 11/13/20 05:23 Baso % (Auto) 0.0 % (0.0-1.8) 11/13/20 05:23 Lymph # (Auto) 0.9 K/mm3 (1.2-5.4) L 11/13/20 05:23 [place] # (Auto) 1.4 K/mm3 (0.0-0.8) H 11/13/20 05:23 Eos # (Auto) 0.0 K/mm3 (0.0-0.4) 11/13/20 05:23 Baso # (Auto) 0.0 K/mm3 (0.0-0.1) 11/13/20 05:23 Add Manual Diff Complete 11/20/20 04:09 Total Counted 100 11/20/20 04:09 Seg Neutrophils % 85.3 % (40.0-70.0) H 11/13/20 05:23 Seg Neuts % (Manual) 77.0 % (40.0-70.0) H 11/20/20 04:09 Band Neutrophils % 13.0 % 11/20/20 04:09 Lymphocytes % (Manual) 3.0 % (13.4-35.0) L 11/20/20 04:09 Monocytes % (Manual) 3.0 % (0.0-7.3) 11/20/20 04:09 Metamyelocytes % 4.0 % 11/20/20 04:09 Nucleated RBC % Not Reportable 11/20/20 04:09 Seg Neutrophils # 13.6 K/mm3 (1.8-7.7) H 11/13/20 05:23 Seg Neutrophils # Man 16.1 K/mm3 (1.8-7.7) H 11/20/20 04:09 Band Neutrophils # 2.7 K/mm3 11/20/20 04:09 Lymphocytes # (Manual) 0.6 K/mm3 (1.2-5.4) L 11/20/20 04:09 Abs React Lymphs (Man) 0.0 K/mm3 11/20/20 04:09 Monocytes # (Manual) 0.6 K/mm3 (0.0-0.8) 11/20/20 04:09 Eosinophils # (Manual) 0.0 K/mm3 (0.0-0.4) 11/20/20 04:09 Basophils # (Manual) 0.0 K/mm3 (0.0-0.1) 11/20/20 04:09 Metamyelocytes # 0.8 K/mm3 11/20/20 04:09 Myelocytes # 0.0 K/mm3 11/20/20 04:09 Promyelocytes # 0.0 K/mm3 11/20/20 04:09 Blast Cells # 0.0 K/mm3 11/20/20 04:09 WBC Morphology Not Reportable 11/20/20 04:09 Hypersegmented Neuts Not Reportable 11/20/20 04:09 Hyposegmented Neuts Not Reportable 11/20/20 04:09 Hypogranular Neuts Not Reportable 11/20/20 04:09 Smudge Cells Not Reportable 11/20/20 04:09 Toxic Granulation Not Reportable 11/20/20 04:09 Toxic Vacuolation Not Reportable 11/20/20 04:09 Dohle Bodies Not Reportable 11/20/20 04:09 Pelger-Huet Anomaly Not Reportable 11/20/20 04:09 Vernell Rods Not Reportable 11/20/20 04:09 Platelet Estimate Consistent w auto 11/20/20 04:09 Clumped Platelets Not Reportable 11/20/20 04:09 Plt Clumps, EDTA Not Reportable 11/20/20 04:09 Large Platelets Not Reportable 11/20/20 04:09 Giant Platelets Not Reportable 11/20/20 04:09 Platelet Satelliting Not Reportable 11/20/20 04:09 Plt Morphology Comment Not Reportable 11/20/20 04:09 RBC Morphology Not Reportable 11/20/20 04:09 Dimorphic RBCs Not Reportable 11/20/20 04:09 Polychromasia Few 11/20/20 04:09 Hypochromasia Few 11/20/20 04:09 Poikilocytosis Not Reportable 11/20/20 04:09 Anisocytosis Not Reportable 11/20/20 04:09 Microcytosis Not Reportable 11/20/20 04:09 Macrocytosis Not Reportable 11/20/20 04:09 Spherocytes Not Reportable 11/20/20 04:09 Pappenheimer Bodies Not Reportable 11/20/20 04:09 Sickle Cells Not Reportable 11/20/20 04:09 Target Cells Not Reportable 11/20/20 04:09 Tear Drop Cells Not Reportable 11/20/20 04:09 Ovalocytes Not Reportable 11/20/20 04:09 Helmet Cells Not Reportable 11/20/20 04:09 [place] Bodies Not Reportable 11/20/20 04:09 [place] Rings Not Reportable 11/20/20 04:09 Fence Cells Not Reportable 11/20/20 04:09 Bite Cells Not Reportable 11/20/20 04:09 Crenated Cell Not Reportable 11/20/20 04:09 Elliptocytes Not Reportable 11/20/20 04:09 Acanthocytes (Spur) Not Reportable 11/20/20 04:09 Rouleaux Not Reportable 11/20/20 04:09 Hemoglobin C Crystals Not Reportable 11/20/20 04:09 Schistocytes Not Reportable 11/20/20 04:09 Malaria parasites Not Reportable 11/20/20 04:09 Mauro Bodies Not Reportable 11/20/20 04:09 Hem Pathologist Commnt No 11/20/20 04:09 PT 35.9 Sec. (12.2-14.9) H 11/26/20 08:00 INR 3.57 (0.87-1.13) H 11/26/20 08:00 APTT 41.1 Sec. (24.2-36.6) H 11/26/20 08:00 Fibrinogen 382 mg/dl (211-480) 11/26/20 08:00 D-Dimer 3455.77 ng/mlDDU (0-234) H 11/25/20 12:00 Heparin Anti-Xa Level 1.24 U.I./ml (0.3-0.7) H 11/21/20 11:12 Heparin Anti-Xa, Unfract Negative (Negative) 11/22/20 13:00 ABG pH 7.355 (7.320-7.450) 11/26/20 05:00 POC ABG pCO2 25.2 mmHg (32.0-48.0) L 11/26/20 05:00 ABG pCO2 24.1 mm Hg 11/25/20 15:43 POC ABG pO2 60.3 mmHg (83-108) L 11/26/20 05:00 ABG pO2 52.7 mm Hg (80.0-90.0) L 11/25/20 15:43 POC ABG HCO3 13.8 11/26/20 05:00 ABG HCO3 18.6 mmol/L (20.0-26.0) L 11/25/20 15:43 ABG O2 Saturation 88.4 (0-100) 11/26/20 05:00 ABG O2 Content 11.2 (0.0-44) 11/25/20 15:43 POC ABG Base Excess -10.3 11/26/20 05:00 ABG Base Excess -3.6 mmol/L (-2.0-3.0) L 11/25/20 15:43 ABG Hemoglobin 10.8 (12.0-17.5) L 11/26/20 05:00 ABG Oxyhemoglobin 87.9 (94-98) L 11/26/20 05:00 ABG Carboxyhemoglobin 1.2 % (0.0-5.0) 11/25/20 15:43 ABG Methemoglobin 0.3 (0.0-1.5) 11/26/20 05:00 ABG Sodium 144.4 mmol/L (136.0-145.0) 11/26/20 05:00 ABG Potassium 3.9 mmol/L (3.40-4.50) 11/26/20 05:00 ABG Chloride 119.0 mmol/L (98-107) H 11/26/20 05:00 ABG Glucose 171 mg/dL (65-95) H 11/26/20 05:00 Oxyhemoglobin 89.0 % (95.0-99.0) L 11/25/20 15:43 Carboxyhemoglobin 0.3 (0.5-1.5) L 11/26/20 05:00 FiO2 40 % 11/25/20 15:43 FiO2 % 60.0 11/26/20 05:00 Sodium 142 mmol/L (137-145) 11/26/20 08:00 Potassium 3.3 mmol/L (3.6-5.0) L 11/26/20 08:00 Chloride 112.7 mmol/L (98-107) H 11/26/20 08:00 Carbon Dioxide 13 mmol/L (22-30) L D 11/26/20 08:00 Anion Gap 20 mmol/L 11/26/20 08:00 BUN 60 mg/dL (7-17) H 11/26/20 08:00 Creatinine 1.7 mg/dL (0.6-1.2) H 11/26/20 08:00 Estimated GFR 29 ml/min 11/26/20 08:00 BUN/Creatinine Ratio 35 % 11/26/20 08:00 Glucose 448 mg/dL (65-100) H 11/26/20 08:00 POC Glucose 47 mg/dL (70-105) L 11/26/20 11:29 Hemoglobin A1c 6.6 % (4-6) H 11/12/20 05:07 Lactic Acid 5.20 mmol/L (0.7-2.0) H* 11/22/20 Unknown Calcium 5.8 mg/dL (8.4-10.2) L* 11/26/20 08:00 Phosphorus 3.70 mg/dL (2.5-4.5) 11/24/20 05:30 Magnesium 2.20 mg/dL (1.7-2.3) 11/26/20 08:00 Ferritin 267.2 ng/mL (10.0-200.0) H 11/25/20 12:00 Total Bilirubin 1.00 mg/dL (0.1-1.2) 11/26/20 08:00 AST 35 units/L (5-40) 11/26/20 08:00 ALT 143 units/L (7-56) H 11/26/20 08:00 Alkaline Phosphatase 56 units/L (35-129) 11/26/20 08:00 Lactate Dehydrogenase 717 units/L (91-180) H 11/25/20 12:00 Troponin T < 0.010 ng/mL (0.00-0.029) 11/11/20 13:39 C-Reactive Protein 6.60 mg/dL (0.00-1.30) H 11/25/20 12:00 Total Protein 3.0 g/dL (6.3-8.2) L 11/26/20 08:00 Albumin 1.3 g/dL (3.9-5) L 11/26/20 08:00 Albumin/Globulin Ratio 0.8 % 11/26/20 08:00 Lipase 55 units/L (13-60) 11/11/20 13:39 Procalcitonin < 0.05 ng/mL (<0.15) 11/11/20 16:59 Arterial Blood Glucose 171 mg/dL (65-95) H 11/26/20 05:00 Arterial Blood Ionized Calcium 4.1 mg/dL (4.6-5.3) L 11/26/20 05:00 Urine Color Janay (Yellow) 11/19/20 23:45 Urine Turbidity Cloudy (Clear) 11/19/20 23:45 Urine pH 5.0 (5.0-7.0) 11/19/20 23:45 Ur Specific [place] 1.015 (1.003-1.030) 11/19/20 23:45 Urine Protein 100 mg/dl mg/dL (Negative) 11/19/20 23:45 Urine Glucose (UA) Neg mg/dL (Negative) 11/19/20 23:45 Urine Ketones Neg mg/dL (Negative) 11/19/20 23:45 Urine Blood Lg (Negative) 11/19/20 23:45 Urine Nitrite Neg (Negative) 11/19/20 23:45 Ur Reducing Substances TNR 11/14/20 06:15 Urine Bilirubin Neg (Negative) 11/19/20 23:45 Urine Ictotest TNR 11/14/20 06:15 Urine Urobilinogen < 2.0 mg/dL (<2.0) 11/19/20 23:45 Ur Leukocyte Esterase Mod (Negative) 11/19/20 23:45 Urine WBC (Auto) > 182.0 /HPF (0.0-6.0) H 11/19/20 23:45 Urine RBC (Auto) > 182.0 /HPF (0.0-6.0) 11/19/20 23:45 U Epithel Cells (Auto) 3.0 /HPF (0-13.0) 11/19/20 23:45 Urine Bacteria (Auto) 4+ /HPF (Negative) 11/19/20 23:45 Urine WBC Clumps 3+ /HPF 11/14/20 06:15 Ur Transition Epith Cell 4 /HPF 11/19/20 23:45 Urine Mucus Few /HPF 11/19/20 23:45 Ur Yeast w Hyphae 2+ /HPF 11/19/20 23:45 Urine Yeast (Budding) 3+ /HPF 11/19/20 23:45 Urine Creatinine 80.2 mg/dL (0.1-20.0) H 11/14/20 06:15 Urine Sodium 28 mmol/L 11/14/20 06:15 Vancomycin Trough 35.2 ug/mL (5.0-20.0) H 11/24/20 15:00 Heparin-induced Plt Ab Negative (Negative) 11/22/20 13:00 UF Heparin High Dose 11 % Release 11/22/20 13:00 VIRGEN UFH Low Dose 0.1 8 % Release 11/22/20 13:00 VIRGEN UFH Low Dose 0.5 7 % Release 11/22/20 13:00 Coronavirus (PCR) Positive (Negative) A 11/11/20 Unknown Blood Type A POSITIVE 11/19/20 19:45 Antibody Screen Negative 11/19/20 19:45 Crossmatch See Detail 11/19/20 19:45 Lind/IV: Voiding Method External Female Catheter Active Medications - Current Medications Current Medications: Generic Name Dose Route Start Last Admin Trade Name Freq PRN Reason Stop Dose Admin Acetaminophen 650 mg 11/11/20 22:11 11/19/20 11:30 Acetaminophen 325 Mg Tab PO 650 mg Q4H PRN Administration Pain MILD(1-3)/Fever >100.5/ERAZO Albuterol 2.5 mg 11/13/20 07:40 Albuterol 2.5 Mg/3 Ml Nebu IH Q4HRT PRN Shortness Of Breath Lipase/Protease/Amylase 1 each 11/13/20 17:32 Lipase 10,500/Protease 25,000/Amylase 43,750 (Units) Dr Cap FEEDTUBE PRN PRN For Clogged Feeding Tube Ascorbic Acid 500 mg 11/13/20 22:00 11/26/20 10:26 Ascorbic Acid 500 Mg Tab PO 500 mg BID CARLOS Administration Dextrose 50 ml 11/13/20 16:43 11/25/20 17:29 Dextrose 50% In Water (25gm) 50 Ml Syringe IV 50 ml Q30MIN PRN Administration Hypoglycemia Protocol Fentanyl 50 mcg 11/13/20 05:33 Fentanyl 100 Mcg/2 Ml Inj IV Q10MIN PRN ANALGESIA Hydrophilic Ointment 1 applic 11/13/20 05:33 Lip Therapy Vaseline TP Q2HR PRN Dry Lips Fentanyl Citrate 2,000 mcg in 100 mls @ 3.81 mls/hr 11/13/20 06:00 11/21/20 15:00 Fentanyl Drip Premix IV 0 mcg/kg/hr TITR CARLOS 0 mls/hr Titration Protocol 1 MCG/KG/HR NORepinephrine/NS 8 MG-250 ML 8 mg in 250 mls @ 3.75 mls/hr 11/13/20 15:00 11/26/20 08:00 Norepinephrine/Ns 8 Mg-250 Ml (Double Conc) IV 24 mcg/min TITRATE CARLOS 45 mls/hr Administration Protocol 2 MCG/MIN Vasopressin 20 unit/ Sodium 101 mls @ 9.09 mls/hr 11/19/20 09:00 11/26/20 08:00 Chloride IV 0.03 units/min TITR CARLOS 9.09 mls/hr Administration Protocol 0.03 UNITS/MIN Phenylephrine HCl 100 mg/ 100 mls @ 3 mls/hr 11/21/20 08:15 11/21/20 17:53 Sodium Chloride IV 0 mcg/min TITR CARLOS 0 mls/hr Titration Protocol 50 MCG/MIN Epinephrine 16 mg/ Sodium 250 mls @ 1.875 mls/hr 11/21/20 11:00 11/22/20 01:00 Chloride IV 0 mcg/min TITR CARLOS 0 mls/hr Titration Protocol 2 MCG/MIN Dextrose/Sodium Chloride 1,000 mls @ 75 mls/hr 11/25/20 14:00 11/26/20 08:22 D5/0.45ns IV 11/27/20 03:19 75 mls/hr DIRECT CARLOS Administration Calcium Gluconate 2,000 mg/ 120 mls @ 660 mls/hr 11/26/20 11:30 Sodium Chloride IV 11/26/20 11:40 ONCE ONE Insulin Human Regular 0 units 11/21/20 00:00 11/26/20 06:39 Insulin Regular, Human 100 Units/1 Ml SUB-Q Not Given Q6HR CARLOS Protocol Multi-Ingred Cream/Lotion/Oil/Oint 1 applic 11/13/20 05:33 Mineral Oil/Petrolatum, White Ophth Oint 3.5 Gm OU Q4HR PRN Dry Eye(s) Pantoprazole Sodium 40 mg 11/25/20 22:00 11/26/20 10:26 Pantoprazole 40 Mg Inj IV 40 mg BID CARLOS Administration Simple Syrup 15 ml 11/13/20 17:32 Simple Syrup 15 Ml FEEDTUBE PRN PRN Hypoglycemia Simple Syrup 30 ml 11/13/20 17:32 Simple Syrup 15 Ml FEEDTUBE PRN PRN Hypoglycemia Sodium Bicarbonate 325 mg 11/13/20 17:32 Sodium Bicarbonate 325 Mg Tab FEEDTUBE PRN PRN For Clogged Feeding Tube Sodium Chloride 10 ml 11/12/20 10:00 11/26/20 10:26 Sodium Chloride 0.9% 10 Ml Flush Syringe IV 10 ml BID CARLOS Administration Sodium Chloride 10 ml 11/11/20 22:11 11/22/20 20:50 Sodium Chloride 0.9% 10 Ml Flush Syringe IV 10 ml PRN PRN Administration LINE FLUSH Zinc Sulfate 220 mg 11/13/20 22:00 11/26/20 10:26 Zinc Sulfate 220 Mg Cap PO 220 mg BID CARLOS Administration Nutrition/Malnutrition Assess - Dietary Evaluation Nutrition/Malnutrition Findings: Nutrition Notes Start: 11/13/20 17:25 Freq: Status: Active Protocol: Document 11/22/20 11:22 DWAYNE (Rec: 11/22/20 11:24 DWAYNE [id number]) Nutrition Notes Initial or Follow up Brief Note Current Diagnosis Sepsis,Respiratory Failure Other Pertinent Diagnosis GIB, COVID-19 (+), Dehydration , (L) renal stone Current Diet Vital AF 1.2 at 50 ml/hr Subjective/Other Information Pt suffered code yesterday. TF is off per GI until pt is more stable. Nutrition Intervention Follow-Up By: 11/26/20 Additional Comments F/u: TF restart and tolerance - Attestation Statement I have reviewed and agreed w/ Malnutrition eval & tx plan: Yes
[2020-11-26] MEDS: DEXTROSE 50% IN WATER (25GM) 50 ML SYRINGE IV PRN (12:30)
[2020-11-26 12:54] LABS: Platelet Count 27 K/mm3 (140-440)
--- NOTE | 2020-11-26 12:57 | Progress Note ---
Assessment and Plan Cultures: Blood culture no growth so far Respiratory culture: few MRSA, <25 WBC Covid PCR: Positive A/P: 85-year-old female past medical history obesity, chronic low back pain, depression admitted with COVID-19 #Sepsis with shock: Fever, leukocytosis resolved. Likely due to COVID-19 pneumonia/MRSA pneumonia. Completed course of vancomycin #Severe COVID-19 pneumonia: Was not a remdesivir candidate due to renal function. Completed dexamethasone, status post 1 dose of Tocilizumab. #Acute hypoxemic respiratory failure: secondary to COVID-19 infection. Remains on the vent. #Shock liver: in the setting of code blue #Acute blood loss anemia: s/p transfusions #Thrombocytopenia: ? due to sepsis. Hem/onc following. Now also with leucopenia. #KATLYN #GI bleed: Status post EGD with gastric ulcer status post endoscopic treatment. #Nephrolithiasis: with associated hydronephrosis. Initial UA was normal, second was was most likely highly contaminated given large amounts of blood and ep ithelial cells, and operative notes not indicative of infection. most recent one still with significant blood, however in the setting of recent urological procedure and new fevers was treated with abx Recs: Completed course of IV vancomycin. Monitor off antibiotics Completed Decadron, Tocilizumab Poor prognosis Shelbie Batista MD, FACP [facility] ([facility] O: [phone] F: [phone] Subjective Date of service: 11/26/20 Principal diagnosis: Ac hypoxemic resp failure; COVID-19 infxn; Pneumonia; KATLYN; AMS; Sepsis Interval history: Afebrile. Remains on the vent. On pressors. Leukopenia, thrombocytopenia. Objective - Exam Narrative Exam: Physical Exam (reviewed in chart to minimize risk of transmission) Constitutional: deferred Head, Ears, Nose: deferred Eyes: deferred Neck: deferred Oral: deferred Cardiovascular: deferred Respiratory: deferred GI: deferred Musculoskeletal: deferred Skin: deferred Hem/Lymphatic: deferred Psych: deferred Neurological: deferred - Constitutional Vitals: Vital Signs Temp Pulse Resp BP Pulse Ox 98.4 F 112 H 24 116/53 96 11/26/20 12:00 11/26/20 12:31 11/26/20 12:31 11/26/20 11:21 11/26/20 12:31 Temperature -Last 24 Hours Temperature 98.4 F Temperature 96.6 F Temperature 97.3 F Temperature 96.8 F Temperature 96.6 F Temperature 96.3 F - Labs CBC & Chem 7: 11/26/20 08:00 11/26/20 08:00 Labs: Abnormal lab results 11/25/20 11/25/20 11/25/20 Range/Units 12:00 12:00 14:00 WBC (4.5-11.0) K/mm3 RBC (3.65-5.03) M/mm3 Hgb (10.1-14.3) gm/dl Hct (30.3-42.9) % RDW (13.2-15.2) % Plt Count (140-440) K/mm3 PT (12.2-14.9) Sec. INR (0.87-1.13) APTT (24.2-36.6) Sec. ABG pH (7.350-7.450) pH Units POC ABG pCO2 (32.0-48.0) mmHg POC ABG pO2 (83-108) mmHg ABG pO2 (80.0-90.0) mm Hg ABG HCO3 (20.0-26.0) mmol/L ABG O2 Saturation (95.0-99.0) % ABG Base Excess (-2.0-3.0) mmol/L ABG Hemoglobin (12.0-16.0) gm/dl ABG Oxyhemoglobin (94-98) ABG Chloride (98-107) mmol/L ABG Glucose (65-95) mg/dL Oxyhemoglobin (95.0-99.0) % Carboxyhemoglobin (0.5-1.5) Sodium 149 H (137-145) mmol/L Potassium 2.8 L* D (3.6-5.0) mmol/L Chloride 114.4 H (98-107) mmol/L Carbon Dioxide (22-30) mmol/L BUN 65 H (7-17) mg/dL Creatinine 1.7 H (0.6-1.2) mg/dL Glucose (65-100) mg/dL POC Glucose (70-105) mg/dL Calcium 6.3 L (8.4-10.2) mg/dL Magnesium 1.60 L (1.7-2.3) mg/dL Ferritin 267.2 H (10.0-200.0) ng/mL AST 72 H (5-40) units/L ALT 261 H (7-56) units/L Lactate Dehydrogenase 717 H (91-180) units/L C-Reactive Protein 6.60 H (0.00-1.30) mg/dL Total Protein 3.4 L (6.3-8.2) g/dL Albumin 1.8 L (3.9-5) g/dL Arterial Blood Glucose (65-95) mg/dL Arterial Blood Ionized Calcium (4.6-5.3) mg/dL 11/25/20 11/25/20 11/26/20 Range/Units 15:43 17:09 05:00 WBC (4.5-11.0) K/mm3 RBC (3.65-5.03) M/mm3 Hgb (10.1-14.3) gm/dl Hct (30.3-42.9) % RDW (13.2-15.2) % Plt Count (140-440) K/mm3 PT (12.2-14.9) Sec. INR (0.87-1.13) APTT (24.2-36.6) Sec. ABG pH 7.505 H (7.350-7.450) pH Units POC ABG pCO2 25.2 L (32.0-48.0) mmHg POC ABG pO2 60.3 L (83-108) mmHg ABG pO2 52.7 L (80.0-90.0) mm Hg ABG HCO3 18.6 L (20.0-26.0) mmol/L ABG O2 Saturation 90.4 L (95.0-99.0) % ABG Base Excess -3.6 L (-2.0-3.0) mmol/L ABG Hemoglobin 8.9 L 10.8 L (12.0-16.0) gm/dl ABG Oxyhemoglobin 87.9 L (94-98) ABG Chloride 119.0 H (98-107) mmol/L ABG Glucose 171 H (65-95) mg/dL Oxyhemoglobin 89.0 L (95.0-99.0) % Carboxyhemoglobin 0.3 L (0.5-1.5) Sodium (137-145) mmol/L Potassium (3.6-5.0) mmol/L Chloride (98-107) mmol/L Carbon Dioxide (22-30) mmol/L BUN (7-17) mg/dL Creatinine (0.6-1.2) mg/dL Glucose (65-100) mg/dL POC Glucose 58 L (70-105) mg/dL Calcium (8.4-10.2) mg/dL Magnesium (1.7-2.3) mg/dL Ferritin (10.0-200.0) ng/mL AST (5-40) units/L ALT (7-56) units/L Lactate Dehydrogenase (91-180) units/L C-Reactive Protein (0.00-1.30) mg/dL Total Protein (6.3-8.2) g/dL Albumin (3.9-5) g/dL Arterial Blood Glucose 171 H (65-95) mg/dL Arterial Blood Ionized Calcium 4.1 L (4.6-5.3) mg/dL 11/26/20 11/26/20 11/26/20 Range/Units 08:00 08:00 08:00 WBC 2.6 L (4.5-11.0) K/mm3 RBC 2.88 L (3.65-5.03) M/mm3 Hgb 8.6 L (10.1-14.3) gm/dl Hct 26.8 L (30.3-42.9) % RDW 17.7 H (13.2-15.2) % Plt Count 27 L (140-440) K/mm3 PT 35.9 H (12.2-14.9) Sec. INR 3.57 H (0.87-1.13) APTT 41.1 H (24.2-36.6) Sec. ABG pH (7.350-7.450) pH Units POC ABG pCO2 (32.0-48.0) mmHg POC ABG pO2 (83-108) mmHg ABG pO2 (80.0-90.0) mm Hg ABG HCO3 (20.0-26.0) mmol/L ABG O2 Saturation (95.0-99.0) % ABG Base Excess (-2.0-3.0) mmol/L ABG Hemoglobin (12.0-16.0) gm/dl ABG Oxyhemoglobin (94-98) ABG Chloride (98-107) mmol/L ABG Glucose (65-95) mg/dL Oxyhemoglobin (95.0-99.0) % Carboxyhemoglobin (0.5-1.5) Sodium (137-145) mmol/L Potassium 3.3 L (3.6-5.0) mmol/L Chloride 112.7 H (98-107) mmol/L Carbon Dioxide 13 L D (22-30) mmol/L BUN 60 H (7-17) mg/dL Creatinine 1.7 H (0.6-1.2) mg/dL Glucose 448 H (65-100) mg/dL POC Glucose (70-105) mg/dL Calcium 5.8 L* (8.4-10.2) mg/dL Magnesium (1.7-2.3) mg/dL Ferritin (10.0-200.0) ng/mL AST (5-40) units/L ALT 143 H (7-56) units/L Lactate Dehydrogenase (91-180) units/L C-Reactive Protein (0.00-1.30) mg/dL Total Protein 3.0 L (6.3-8.2) g/dL Albumin 1.3 L (3.9-5) g/dL Arterial Blood Glucose (65-95) mg/dL Arterial Blood Ionized Calcium (4.6-5.3) mg/dL 11/26/20 Range/Units 11:29 WBC (4.5-11.0) K/mm3 RBC (3.65-5.03) M/mm3 Hgb (10.1-14.3) gm/dl Hct (30.3-42.9) % RDW (13.2-15.2) % Plt Count (140-440) K/mm3 PT (12.2-14.9) Sec. INR (0.87-1.13) APTT (24.2-36.6) Sec. ABG pH (7.350-7.450) pH Units POC ABG pCO2 (32.0-48.0) mmHg POC ABG pO2 (83-108) mmHg ABG pO2 (80.0-90.0) mm Hg ABG HCO3 (20.0-26.0) mmol/L ABG O2 Saturation (95.0-99.0) % ABG Base Excess (-2.0-3.0) mmol/L ABG Hemoglobin (12.0-16.0) gm/dl ABG Oxyhemoglobin (94-98) ABG Chloride (98-107) mmol/L ABG Glucose (65-95) mg/dL Oxyhemoglobin (95.0-99.0) % Carboxyhemoglobin (0.5-1.5) Sodium (137-145) mmol/L Potassium (3.6-5.0) mmol/L Chloride (98-107) mmol/L Carbon Dioxide (22-30) mmol/L BUN (7-17) mg/dL Creatinine (0.6-1.2) mg/dL Glucose (65-100) mg/dL POC Glucose 47 L (70-105) mg/dL Calcium (8.4-10.2) mg/dL Magnesium (1.7-2.3) mg/dL Ferritin (10.0-200.0) ng/mL AST (5-40) units/L ALT (7-56) units/L Lactate Dehydrogenase (91-180) units/L C-Reactive Protein (0.00-1.30) mg/dL Total Protein (6.3-8.2) g/dL Albumin (3.9-5) g/dL Arterial Blood Glucose (65-95) mg/dL Arterial Blood Ionized Calcium (4.6-5.3) mg/dL
--- NOTE | 2020-11-26 12:57 | Progress Note ---
Assessment and Plan Acute hypoxemic respiratory failure on MVS COVID-19 infection Pneumonia Severe Sepsis Acute toxic metabolic encephalopathy Inadvertently placed left carotid line Acute kidney injury Nephrolithiasis Leukocytosis Metabolic acidosis Mild hypernatremia - replaced Potassium (KCL 40 meq p.o. & IV X 1) - begin tube feeds and advance to goal rate as tolerated - placed on PSV trial with p-supp at 16 cm H2O - get ABG after 2 hours - pull R. groin CVL - wound care consult placed for sacral wound - resume D51/2NS @ 75 mls/hr X 2 liters re: hypotension and hypernatremia - repeat INR - Hematology input appreciated - continue to hold CT angio abd & Pelvis till more as long as H&H stable and no gross bleeding - continue to hold anticoagulation re: risk benefit ratio - changed to BID PPI dosing - continue to wean vasopressors for MAP > 65 mmHg - continue care as below otherwise; - continue Daily SAT and SBT assessment as tolerated - continue to wean supplemental oxygen for target O2 sat's > 90% acutely - VAP bundle addressed - continue lung protective strategies - continue bronchodilators with pulmonary hygiene per RT - wean per pulmonary driven protocols otherwise - continue accuchecks with glycemic control per SSI (While critically ill target blood glucose of 140-180 mg/dL; avoid hypoglycemia) - sedation prn for target RASS 0 to -1 - avoid nephrotoxins, renally dose all medications - continue to avoid benzodiazepine's, reduce the possibility of delirium - AB's per ID rec's - prn analgesia per CPOT score - Maintenance of sleep-wake cycle, avoid delirium - continue enteral nutritional support at goal rate as tolerated - G.I. & VTE prophylaxis - PT/OT/ROM exercises - continue mobility protocols for pressure ulcer prophylaxis - Monitor hemodynamics closely - continue other care per attending / other consultants - discharge planning ongoing concurrently COVID SPECIFIC INTERVENTIONS - Remdesivir as per ID/Pulmonary developed protocols - continue systemic steroids for severe COVID-19 infection - s/p Actemra - follow repeat COVID tests results - zinc and vitamin C supplementation - Monitor inflammatory markers per facility protocol - ferritin, Ddimer, CRP - therapeutic anticoagulation per system Protocol based on d-dimer and clinical considerations (re: Carotid artery thrombus) - Continue contact and airborne isolation .... Re-evaluate in am & prn CONDITION: CRITICAL PROGNOSIS: GUARDED CODE STATUS: DNR/AND The high probability of a clinically significant, sudden or life-threatening deterioration of the [respiratory, cardiovascular, renal & neurologic] system(s) required my full and direct attention, intervention and personal management. The aggregate critical care time was [36] minutes without overlap. Time includes spent on; [x] Data Review and interpretation [x] Patient assessment and monitoring of vital signs [x] Documentation [x] Medication orders and management Subjective Date of service: 11/26/20 Principal diagnosis: Ac hypoxemic resp failure; COVID-19 infxn; Pneumonia; KATLYN; AMS; Sepsis Interval history: Patient is seen today for: Acute hypoxemic respiratory failure; COVID-19 infxn; Pneumonia; Acute toxic metabolic encephalopathy; Carotid Artery thrombus; KATLYN; Leukocytosis Seen and examined at bedside; 24hour events reviewed; nursing and respiratory care staff consulted; no adverse overnight events reported to me; resting in bed; remains on MVS; AMS is persistent; Objective Vital Signs - 12hr 11/26/20 11/26/20 11/26/20 01:01 01:15 01:31 Temperature Pulse Rate 106 H 108 H 108 H Respiratory 33 H 28 H 35 H Rate Blood Pressure O2 Sat by Pulse 96 96 Oximetry 11/26/20 11/26/20 11/26/20 01:45 02:01 02:15 Temperature Pulse Rate 107 H 109 H 111 H Respiratory 14 22 30 H Rate Blood Pressure 132/94 O2 Sat by Pulse 96 95 97 Oximetry 11/26/20 11/26/20 11/26/20 02:31 02:37 02:45 Temperature Pulse Rate 112 H 111 H 110 H Respiratory 29 H 27 H Rate Blood Pressure 132/54 O2 Sat by Pulse 97 96 96 Oximetry 11/26/20 11/26/20 11/26/20 03:01 03:15 03:26 Temperature 97.3 F L Pulse Rate 114 H 114 H Respiratory 31 H 32 H Rate Blood Pressure O2 Sat by Pulse 95 96 Oximetry 11/26/20 11/26/20 11/26/20 03:31 03:45 04:00 Temperature Pulse Rate 112 H 116 H 114 H Respiratory 25 H 38 H Rate Blood Pressure O2 Sat by Pulse 98 96 98 Oximetry 11/26/20 11/26/20 11/26/20 04:01 04:15 04:31 Temperature Pulse Rate 114 H 115 H 118 H Respiratory 32 H 18 31 H Rate Blood Pressure O2 Sat by Pulse 96 94 93 Oximetry 11/26/20 11/26/20 11/26/20 04:45 05:01 05:15 Temperature Pulse Rate 115 H 115 H 116 H Respiratory 17 21 17 Rate Blood Pressure O2 Sat by Pulse 93 92 90 Oximetry 11/26/20 11/26/20 11/26/20 05:18 05:31 05:45 Temperature Pulse Rate 112 H 114 H 111 H Respiratory 40 H 37 H Rate Blood Pressure 132/54 O2 Sat by Pulse 92 74 L Oximetry 11/26/20 11/26/20 11/26/20 06:01 06:15 06:31 Temperature Pulse Rate 113 H 111 H 112 H Respiratory 33 H 16 17 Rate Blood Pressure O2 Sat by Pulse 66 L Oximetry 11/26/20 11/26/20 11/26/20 06:45 07:01 07:15 Temperature Pulse Rate 112 H 113 H 109 H Respiratory 20 16 18 Rate Blood Pressure 132/94 O2 Sat by Pulse 93 Oximetry 11/26/20 11/26/20 11/26/20 07:22 07:31 07:45 Temperature 96.6 F L Pulse Rate 109 H 111 H Respiratory 13 14 Rate Blood Pressure 132/94 132/94 O2 Sat by Pulse Oximetry 11/26/20 11/26/20 11/26/20 07:54 08:00 08:01 Temperature Pulse Rate 111 H 112 H 113 H Respiratory 15 Rate Blood Pressure 87/40 132/94 O2 Sat by Pulse 91 93 Oximetry 11/26/20 11/26/20 11/26/20 08:15 08:31 08:45 Temperature Pulse Rate 111 H 109 H 109 H Respiratory 13 15 17 Rate Blood Pressure 132/94 132/94 132/94 O2 Sat by Pulse 87 88 92 Oximetry 11/26/20 11/26/20 11/26/20 09:00 09:15 09:31 Temperature Pulse Rate 111 H 106 H 109 H Respiratory 15 14 15 Rate Blood Pressure 107/64 107/64 107/64 O2 Sat by Pulse 90 90 91 Oximetry 11/26/20 11/26/20 11/26/20 09:45 10:01 10:15 Temperature Pulse Rate 97 H 87 85 Respiratory 16 16 19 Rate Blood Pressure 107/64 O2 Sat by Pulse 95 81 L 99 Oximetry 11/26/20 11/26/20 11/26/20 10:31 10:45 11:01 Temperature Pulse Rate 99 H 107 H 110 H Respiratory 39 H 16 15 Rate Blood Pressure O2 Sat by Pulse 97 95 Oximetry 11/26/20 11/26/20 11/26/20 11:15 11:21 11:31 Temperature Pulse Rate 110 H 111 H 111 H Respiratory 16 15 Rate Blood Pressure 116/53 O2 Sat by Pulse 92 92 90 Oximetry 11/26/20 11/26/20 11/26/20 11:45 12:00 12:01 Temperature 98.4 F Pulse Rate 112 H 112 H 112 H Respiratory 15 19 Rate Blood Pressure O2 Sat by Pulse 91 93 Oximetry 11/26/20 11/26/20 12:15 12:31 Temperature Pulse Rate 112 H 112 H Respiratory 15 24 Rate Blood Pressure O2 Sat by Pulse 95 96 Oximetry Constitutional: appears uncomfortable, other (elderly obese female with mildly increased respiratory effort at rest on MVS) Eyes: non-icteric ENT: oropharynx moist, other (ETT 22 cm NYA) Neck: supple, no lymphadenopathy, no JVD Effort: mildly labored Ascultation: Bilateral: diminished breath sounds, rhonchi Percussion: Bilateral: not dull Cardiovascular: regular rate and rhythm, other (S1,S2) Gastrointestinal: normoactive bowel sounds, soft, non-tender, non-distended (protuberant) Integumentary: normal Extremities: no cyanosis, pink and warm, pulses normal, edema (peripheral), other (Right femoral CVL & A-line) Neurologic: pupils equal and round, unable to assess Psychiatric: other (unable to assess re: AMS) CBC and BMP: 11/26/20 08:00 11/26/20 08:00 ABG, PT/INR, D-dimer: ABG ABG pH 7.355 (7.320-7.450) 11/26/20 05:00 POC ABG pCO2 25.2 mmHg (32.0-48.0) L 11/26/20 05:00 ABG pCO2 24.1 mm Hg 11/25/20 15:43 POC ABG pO2 60.3 mmHg (83-108) L 11/26/20 05:00 ABG pO2 52.7 mm Hg (80.0-90.0) L 11/25/20 15:43 POC ABG HCO3 13.8 11/26/20 05:00 ABG O2 Saturation 88.4 (0-100) 11/26/20 05:00 PT/INR, D-dimer PT 35.9 Sec. (12.2-14.9) H 11/26/20 08:00 INR 3.57 (0.87-1.13) H 11/26/20 08:00 D-Dimer 3455.77 ng/mlDDU (0-234) H 11/25/20 12:00 Abnormal lab findings: Abnormal Labs 11/11/20 11/11/20 11/11/20 13:39 13:39 16:59 WBC 19.5 H RBC 5.93 H Hgb 17.0 H Hct 50.6 H RDW Plt Count 449 H Lymph % (Auto) 12.0 L [place] % (Auto) 7.7 H Lymph # (Auto) Hickman # (Auto) 1.5 H Seg Neutrophils % 80.0 H Seg Neuts % (Manual) Lymphocytes % (Manual) Monocytes % (Manual) Seg Neutrophils # 15.6 H Seg Neutrophils # Man Lymphocytes # (Manual) Monocytes # (Manual) PT INR APTT Fibrinogen D-Dimer 1525.92 H Heparin Anti-Xa Level ABG pH POC ABG pCO2 POC ABG pO2 ABG pO2 ABG HCO3 ABG O2 Saturation ABG Base Excess ABG Hemoglobin ABG Oxyhemoglobin ABG Sodium ABG Potassium ABG Chloride ABG Glucose Oxyhemoglobin Carboxyhemoglobin Sodium Potassium 3.5 L Chloride 97.3 L Carbon Dioxide BUN 30 H Creatinine 0.5 L Glucose 128 H POC Glucose Hemoglobin A1c Lactic Acid Calcium Phosphorus Magnesium Ferritin Total Bilirubin AST ALT Lactate Dehydrogenase C-Reactive Protein Total Protein Albumin 3.8 L Arterial Blood Glucose Arterial Blood Ionized Calcium Urine WBC (Auto) U Epithel Cells (Auto) Urine Creatinine Vancomycin Trough Coronavirus (PCR) Crossmatch 11/11/20 11/11/20 11/11/20 16:59 17:12 Unknown WBC RBC Hgb Hct RDW Plt Count Lymph % (Auto) [place]man % (Auto) Lymph # (Auto) H[place]man # (Auto) Seg Neutrophils % Seg Neuts % (Manual) Lymphocytes % (Manual) Monocytes % (Manual) Seg Neutrophils # Seg Neutrophils # Man Lymphocytes # (Manual) Monocytes # (Manual) PT INR APTT Fibrinogen D-Dimer Heparin Anti-Xa Level ABG pH 7.501 H POC ABG pCO2 POC ABG pO2 55.0 L ABG pO2 ABG HCO3 ABG O2 Saturation ABG Base Excess ABG Hemoglobin ABG Oxyhemoglobin 89.5 L ABG Sodium ABG Potassium 3.2 L ABG Chloride ABG Glucose 131 H Oxyhemoglobin Carboxyhemoglobin Sodium Potassium Chloride Carbon Dioxide BUN Creatinine Glucose 117 H POC Glucose Hemoglobin A1c Lactic Acid Calcium Phosphorus Magnesium Ferritin Total Bilirubin AST ALT Lactate Dehydrogenase 204 H C-Reactive Protein Total Protein Albumin Arterial Blood Glucose 131 H Arterial Blood Ionized Calcium Urine WBC (Auto) U Epithel Cells (Auto) Urine Creatinine Vancomycin Trough Coronavirus (PCR) Positive A Crossmatch 11/12/20 11/12/20 11/12/20 05:07 05:07 05:07 WBC 16.7 H RBC 5.74 H Hgb 16.6 H Hct 50.3 H RDW Plt Count 450 H Lymph % (Auto) 12.1 L [place] % (Auto) 7.5 H Lymph # (Auto) [place] # (Auto) 1.3 H Seg Neutrophils % 77.9 H Seg Neuts % (Manual) Lymphocytes % (Manual) Monocytes % (Manual) Seg Neutrophils # 13.0 H Seg Neutrophils # Man Lymphocytes # (Manual) Monocytes # (Manual) PT INR APTT Fibrinogen D-Dimer Heparin Anti-Xa Level ABG pH POC ABG pCO2 POC ABG pO2 ABG pO2 ABG HCO3 ABG O2 Saturation ABG Base Excess ABG Hemoglobin ABG Oxyhemoglobin ABG Sodium ABG Potassium ABG Chloride ABG Glucose Oxyhemoglobin Carboxyhemoglobin Sodium 147 H Potassium Chloride Carbon Dioxide 35 H D BUN 34 H Creatinine Glucose 117 H POC Glucose Hemoglobin A1c 6.6 H Lactic Acid Calcium 11.1 H Phosphorus Magnesium Ferritin Total Bilirubin AST ALT Lactate Dehydrogenase C-Reactive Protein Total Protein Albumin Arterial Blood Glucose Arterial Blood Ionized Calcium Urine WBC (Auto) U Epithel Cells (Auto) Urine Creatinine Vancomycin Trough Coronavirus (PCR) Crossmatch 11/12/20 11/13/20 11/13/20 23:58 01:36 04:00 WBC RBC Hgb Hct RDW Plt Count Lymph % (Auto) [place] % (Auto) Lymph # (Auto) [place]man # (Auto) Seg Neutrophils % Seg Neuts % (Manual) Lymphocytes % (Manual) Monocytes % (Manual) Seg Neutrophils # Seg Neutrophils # Man Lymphocytes # (Manual) Monocytes # (Manual) PT INR APTT Fibrinogen D-Dimer Heparin Anti-Xa Level ABG pH POC ABG pCO2 POC ABG pO2 ABG pO2 ABG HCO3 ABG O2 Saturation ABG Base Excess ABG Hemoglobin ABG Oxyhemoglobin ABG Sodium 147.3 H ABG Potassium 3.2 L ABG Chloride 109.0 H ABG Glucose 118 H Oxyhemoglobin Carboxyhemoglobin 0.3 L Sodium Potassium 3.1 L Chloride Carbon Dioxide BUN 64 H Creatinine 2.2 H D Glucose 105 H POC Glucose 181 H Hemoglobin A1c Lactic Acid Calcium 8.3 L D Phosphorus Magnesium Ferritin Total Bilirubin AST 366 H ALT 316 H Lactate Dehydrogenase C-Reactive Protein Total Protein 5.4 L D Albumin 2.5 L Arterial Blood Glucose 118 H Arterial Blood Ionized Calcium Urine WBC (Auto) U Epithel Cells (Auto) Urine Creatinine Vancomycin Trough Coronavirus (PCR) Crossmatch 11/13/20 11/13/20 11/13/20 05:23 08:22 09:51 WBC 15.9 H RBC Hgb Hct 44.4 H RDW Plt Count Lymph % (Auto) 5.7 L [place] % (Auto) 9.0 H Lymph # (Auto) 0.9 L [place] # (Auto) 1.4 H Seg Neutrophils % 85.3 H Seg Neuts % (Manual) Lymphocytes % (Manual) Monocytes % (Manual) Seg Neutrophils # 13.6 H Seg Neutrophils # Man Lymphocytes # (Manual) Monocytes # (Manual) PT 16.0 H INR 1.23 H APTT Fibrinogen D-Dimer Heparin Anti-Xa Level ABG pH 7.243 L POC ABG pCO2 POC ABG pO2 82.0 L ABG pO2 ABG HCO3 ABG O2 Saturation ABG Base Excess ABG Hemoglobin ABG Oxyhemoglobin 93.5 L ABG Sodium 146.6 H ABG Potassium 2.8 L ABG Chloride 114.0 H ABG Glucose 113 H Oxyhemoglobin Carboxyhemoglobin 0.4 L Sodium Potassium Chloride Carbon Dioxide BUN Creatinine Glucose POC Glucose Hemoglobin A1c Lactic Acid Calcium Phosphorus Magnesium Ferritin Total Bilirubin AST ALT Lactate Dehydrogenase C-Reactive Protein Total Protein Albumin Arterial Blood Glucose 113 H Arterial Blood Ionized Calcium Urine WBC (Auto) U Epithel Cells (Auto) Urine Creatinine Vancomycin Trough Coronavirus (PCR) Crossmatch 11/13/20 11/13/20 11/13/20 09:51 09:51 09:51 WBC RBC Hgb Hct RDW Plt Count Lymph % (Auto) [place] % (Auto) Lymph # (Auto) [place] # (Auto) Seg Neutrophils % Seg Neuts % (Manual) Lymphocytes % (Manual) Monocytes % (Manual) Seg Neutrophils # Seg Neutrophils # Man Lymphocytes # (Manual) Monocytes # (Manual) PT INR APTT Fibrinogen D-Dimer 5682.19 H Heparin Anti-Xa Level ABG pH POC ABG pCO2 POC ABG pO2 ABG pO2 ABG HCO3 ABG O2 Saturation ABG Base Excess ABG Hemoglobin ABG Oxyhemoglobin ABG Sodium ABG Potassium ABG Chloride ABG Glucose Oxyhemoglobin Carboxyhemoglobin Sodium Potassium Chloride Carbon Dioxide BUN Creatinine Glucose 104 H POC Glucose Hemoglobin A1c Lactic Acid Calcium Phosphorus Magnesium Ferritin 1003.0 H Total Bilirubin AST ALT Lactate Dehydrogenase 1022 H C-Reactive Protein 5.50 H Total Protein Albumin Arterial Blood Glucose Arterial Blood Ionized Calcium Urine WBC (Auto) U Epithel Cells (Auto) Urine Creatinine Vancomycin Trough Coronavirus (PCR) Crossmatch 11/13/20 11/14/20 11/14/20 21:50 00:50 04:25 WBC RBC Hgb Hct RDW Plt Count Lymph % (Auto) [place] % (Auto) Lymph # (Auto) [place] # (Auto) Seg Neutrophils % Seg Neuts % (Manual) Lymphocytes % (Manual) Monocytes % (Manual) Seg Neutrophils # Seg Neutrophils # Man Lymphocytes # (Manual) Monocytes # (Manual) PT INR APTT Fibrinogen D-Dimer Heparin Anti-Xa Level 0.91 H ABG pH 7.215 L POC ABG pCO2 POC ABG pO2 ABG pO2 ABG HCO3 ABG O2 Saturation ABG Base Excess ABG Hemoglobin ABG Oxyhemoglobin ABG Sodium 147.3 H ABG Potassium ABG Chloride 119.0 H ABG Glucose 156 H Oxyhemoglobin Carboxyhemoglobin Sodium Potassium Chloride Carbon Dioxide BUN Creatinine Glucose POC Glucose 59 L Hemoglobin A1c Lactic Acid Calcium Phosphorus Magnesium Ferritin Total Bilirubin AST ALT Lactate Dehydrogenase C-Reactive Protein Total Protein Albumin Arterial Blood Glucose 156 H Arterial Blood Ionized Calcium 4.3 L Urine WBC (Auto) U Epithel Cells (Auto) Urine Creatinine Vancomycin Trough Coronavirus (PCR) Crossmatch 11/14/20 11/14/20 11/14/20 04:35 04:35 06:15 WBC RBC Hgb Hct 43.9 H RDW 15.3 H Plt Count Lymph % (Auto) [place] % (Auto) Lymph # (Auto) [place] # (Auto) Seg Neutrophils % Seg Neuts % (Manual) Lymphocytes % (Manual) Monocytes % (Manual) Seg Neutrophils # Seg Neutrophils # Man Lymphocytes # (Manual) Monocytes # (Manual) PT INR APTT Fibrinogen D-Dimer Heparin Anti-Xa Level ABG pH POC ABG pCO2 POC ABG pO2 ABG pO2 ABG HCO3 ABG O2 Saturation ABG Base Excess ABG Hemoglobin ABG Oxyhemoglobin ABG Sodium ABG Potassium ABG Chloride ABG Glucose Oxyhemoglobin Carboxyhemoglobin Sodium 151 H D Potassium Chloride 116.8 H Carbon Dioxide 18 L BUN 64 H Creatinine 2.1 H Glucose 148 H POC Glucose Hemoglobin A1c Lactic Acid Calcium 7.3 L Phosphorus Magnesium Ferritin Total Bilirubin AST ALT Lactate Dehydrogenase C-Reactive Protein 38.00 H Total Protein Albumin Arterial Blood Glucose Arterial Blood Ionized Calcium Urine WBC (Auto) > 182.0 H U Epithel Cells (Auto) 24.0 H Urine Creatinine Vancomycin Trough Coronavirus (PCR) Crossmatch 11/14/20 11/14/20 11/14/20 06:15 06:15 12:01 WBC RBC Hgb Hct RDW Plt Count Lymph % (Auto) [place] % (Auto) Lymph # (Auto) [place] # (Auto) Seg Neutrophils % Seg Neuts % (Manual) Lymphocytes % (Manual) Monocytes % (Manual) Seg Neutrophils # Seg Neutrophils # Man Lymphocytes # (Manual) Monocytes # (Manual) PT INR APTT Fibrinogen D-Dimer Heparin Anti-Xa Level 1.16 H ABG pH POC ABG pCO2 POC ABG pO2 ABG pO2 ABG HCO3 ABG O2 Saturation ABG Base Excess ABG Hemoglobin ABG Oxyhemoglobin ABG Sodium ABG Potassium ABG Chloride ABG Glucose Oxyhemoglobin Carboxyhemoglobin Sodium Potassium Chloride Carbon Dioxide BUN Creatinine Glucose POC Glucose 107 H Hemoglobin A1c Lactic Acid Calcium Phosphorus Magnesium Ferritin Total Bilirubin AST ALT Lactate Dehydrogenase C-Reactive Protein Total Protein Albumin Arterial Blood Glucose Arterial Blood Ionized Calcium Urine WBC (Auto) U Epithel Cells (Auto) Urine Creatinine 80.2 H Vancomycin Trough Coronavirus (PCR) Crossmatch 11/14/20 11/14/20 11/14/20 17:18 23:00 23:25 WBC RBC Hgb Hct RDW Plt Count Lymph % (Auto) [place] % (Auto) Lymph # (Auto) [place] # (Auto) Seg Neutrophils % Seg Neuts % (Manual) Lymphocytes % (Manual) Monocytes % (Manual) Seg Neutrophils # Seg Neutrophils # Man Lymphocytes # (Manual) Monocytes # (Manual) PT INR APTT Fibrinogen D-Dimer Heparin Anti-Xa Level 0.96 H ABG pH POC ABG pCO2 POC ABG pO2 ABG pO2 ABG HCO3 ABG O2 Saturation ABG Base Excess ABG Hemoglobin ABG Oxyhemoglobin ABG Sodium ABG Potassium ABG Chloride ABG Glucose Oxyhemoglobin Carboxyhemoglobin Sodium Potassium Chloride Carbon Dioxide BUN Creatinine Glucose POC Glucose 173 H 158 H Hemoglobin A1c Lactic Acid Calcium Phosphorus Magnesium Ferritin Total Bilirubin AST ALT Lactate Dehydrogenase C-Reactive Protein Total Protein Albumin Arterial Blood Glucose Arterial Blood Ionized Calcium Urine WBC (Auto) U Epithel Cells (Auto) Urine Creatinine Vancomycin Trough Coronavirus (PCR) Crossmatch 11/15/20 11/15/20 11/15/20 01:45 04:57 04:57 WBC RBC Hgb Hct RDW 16.2 H Plt Count Lymph % (Auto) [place] % (Auto) Lymph # (Auto) [place] # (Auto) Seg Neutrophils % Seg Neuts % (Manual) Lymphocytes % (Manual) Monocytes % (Manual) Seg Neutrophils # Seg Neutrophils # Man Lymphocytes # (Manual) Monocytes # (Manual) PT INR APTT Fibrinogen D-Dimer Heparin Anti-Xa Level ABG pH 7.246 L POC ABG pCO2 28.4 L POC ABG pO2 ABG pO2 ABG HCO3 ABG O2 Saturation ABG Base Excess ABG Hemoglobin ABG Oxyhemoglobin ABG Sodium ABG Potassium ABG Chloride 116.0 H ABG Glucose 164 H Oxyhemoglobin Carboxyhemoglobin Sodium 147 H Potassium Chloride 114.0 H Carbon Dioxide 16 L BUN 68 H Creatinine 2.4 H Glucose 148 H POC Glucose Hemoglobin A1c Lactic Acid Calcium 7.3 L Phosphorus Magnesium Ferritin Total Bilirubin AST 395 H ALT 396 H Lactate Dehydrogenase 596 H C-Reactive Protein 34.50 H Total Protein 5.1 L Albumin 2.1 L Arterial Blood Glucose 164 H Arterial Blood Ionized Calcium 4.3 L Urine WBC (Auto) U Epithel Cells (Auto) Urine Creatinine Vancomycin Trough Coronavirus (PCR) Crossmatch 11/15/20 11/15/20 11/15/20 04:57 04:57 05:20 WBC RBC Hgb Hct RDW Plt Count Lymph % (Auto) [place] % (Auto) Lymph # (Auto) [place] # (Auto) Seg Neutrophils % Seg Neuts % (Manual) Lymphocytes % (Manual) Monocytes % (Manual) Seg Neutrophils # Seg Neutrophils # Man Lymphocytes # (Manual) Monocytes # (Manual) PT INR APTT Fibrinogen D-Dimer 3313.42 H Heparin Anti-Xa Level 0.81 H ABG pH POC ABG pCO2 POC ABG pO2 ABG pO2 ABG HCO3 ABG O2 Saturation ABG Base Excess ABG Hemoglobin ABG Oxyhemoglobin ABG Sodium ABG Potassium ABG Chloride ABG Glucose Oxyhemoglobin Carboxyhemoglobin Sodium Potassium Chloride Carbon Dioxide BUN Creatinine Glucose POC Glucose 124 H Hemoglobin A1c Lactic Acid 3.00 H* Calcium Phosphorus Magnesium Ferritin Total Bilirubin AST ALT Lactate Dehydrogenase C-Reactive Protein Total Protein Albumin Arterial Blood Glucose Arterial Blood Ionized Calcium Urine WBC (Auto) U Epithel Cells (Auto) Urine Creatinine Vancomycin Trough Coronavirus (PCR) Crossmatch 11/15/20 11/15/20 11/15/20 08:26 08:26 11:34 WBC RBC Hgb Hct RDW Plt Count Lymph % (Auto) [place] % (Auto) Lymph # (Auto) [place] # (Auto) Seg Neutrophils % Seg Neuts % (Manual) Lymphocytes % (Manual) Monocytes % (Manual) Seg Neutrophils # Seg Neutrophils # Man Lymphocytes # (Manual) Monocytes # (Manual) PT INR APTT Fibrinogen D-Dimer Heparin Anti-Xa Level ABG pH POC ABG pCO2 POC ABG pO2 ABG pO2 ABG HCO3 ABG O2 Saturation ABG Base Excess ABG Hemoglobin ABG Oxyhemoglobin ABG Sodium ABG Potassium ABG Chloride ABG Glucose Oxyhemoglobin Carboxyhemoglobin Sodium Potassium Chloride Carbon Dioxide BUN Creatinine Glucose POC Glucose 113 H Hemoglobin A1c Lactic Acid 2.60 H* Calcium Phosphorus Magnesium Ferritin 452.8 H Total Bilirubin AST ALT Lactate Dehydrogenase C-Reactive Protein Total Protein Albumin Arterial Blood Glucose Arterial Blood Ionized Calcium Urine WBC (Auto) U Epithel Cells (Auto) Urine Creatinine Vancomycin Trough Coronavirus (PCR) Crossmatch 11/15/20 11/15/20 11/16/20 16:43 23:16 03:39 WBC RBC Hgb Hct RDW Plt Count Lymph % (Auto) [place] % (Auto) Lymph # (Auto) [place] # (Auto) Seg Neutrophils % Seg Neuts % (Manual) Lymphocytes % (Manual) Monocytes % (Manual) Seg Neutrophils # Seg Neutrophils # Man Lymphocytes # (Manual) Monocytes # (Manual) PT INR APTT Fibrinogen D-Dimer Heparin Anti-Xa Level ABG pH 7.261 L POC ABG pCO2 31.2 L POC ABG pO2 117.3 H ABG pO2 ABG HCO3 ABG O2 Saturation ABG Base Excess ABG Hemoglobin ABG Oxyhemoglobin ABG Sodium 135.8 L ABG Potassium ABG Chloride 112.0 H ABG Glucose 148 H Oxyhemoglobin Carboxyhemoglobin 0.4 L Sodium Potassium Chloride Carbon Dioxide BUN Creatinine Glucose POC Glucose 107 H 113 H Hemoglobin A1c Lactic Acid Calcium Phosphorus Magnesium Ferritin Total Bilirubin AST ALT Lactate Dehydrogenase C-Reactive Protein Total Protein Albumin Arterial Blood Glucose 148 H Arterial Blood Ionized Calcium 4.1 L Urine WBC (Auto) U Epithel Cells (Auto) Urine Creatinine Vancomycin Trough Coronavirus (PCR) Crossmatch 11/16/20 11/16/20 11/16/20 04:51 11:28 17:15 WBC RBC Hgb Hct RDW Plt Count Lymph % (Auto) [place] % (Auto) Lymph # (Auto) [place] # (Auto) Seg Neutrophils % Seg Neuts % (Manual) Lymphocytes % (Manual) Monocytes % (Manual) Seg Neutrophils # Seg Neutrophils # Man Lymphocytes # (Manual) Monocytes # (Manual) PT INR APTT Fibrinogen D-Dimer Heparin Anti-Xa Level ABG pH POC ABG pCO2 POC ABG pO2 ABG pO2 ABG HCO3 ABG O2 Saturation ABG Base Excess ABG Hemoglobin ABG Oxyhemoglobin ABG Sodium ABG Potassium ABG Chloride ABG Glucose Oxyhemoglobin Carboxyhemoglobin Sodium Potassium Chloride Carbon Dioxide BUN Creatinine Glucose POC Glucose 119 H 144 H 139 H Hemoglobin A1c Lactic Acid Calcium Phosphorus Magnesium Ferritin Total Bilirubin AST ALT Lactate Dehydrogenase C-Reactive Protein Total Protein Albumin Arterial Blood Glucose Arterial Blood Ionized Calcium Urine WBC (Auto) U Epithel Cells (Auto) Urine Creatinine Vancomycin Trough Coronavirus (PCR) Crossmatch 11/16/20 11/16/20 11/16/20 23:50 Unknown Unknown WBC RBC Hgb Hct RDW Plt Count Lymph % (Auto) [place] % (Auto) Lymph # (Auto) [place] # (Auto) Seg Neutrophils % Seg Neuts % (Manual) Lymphocytes % (Manual) Monocytes % (Manual) Seg Neutrophils # Seg Neutrophils # Man Lymphocytes # (Manual) Monocytes # (Manual) PT INR APTT Fibrinogen D-Dimer Heparin Anti-Xa Level ABG pH POC ABG pCO2 POC ABG pO2 ABG pO2 ABG HCO3 ABG O2 Saturation ABG Base Excess ABG Hemoglobin ABG Oxyhemoglobin ABG Sodium ABG Potassium ABG Chloride ABG Glucose Oxyhemoglobin Carboxyhemoglobin Sodium Potassium 3.5 L Chloride 109.7 H Carbon Dioxide 15 L BUN 65 H Creatinine 2.2 H Glucose 174 H POC Glucose 132 H Hemoglobin A1c Lactic Acid 2.10 H* Calcium 6.1 L D Phosphorus Magnesium Ferritin Total Bilirubin AST 171 H ALT 268 H Lactate Dehydrogenase C-Reactive Protein Total Protein 4.3 L Albumin 1.9 L Arterial Blood Glucose Arterial Blood Ionized Calcium Urine WBC (Auto) U Epithel Cells (Auto) Urine Creatinine Vancomycin Trough Coronavirus (PCR) Crossmatch 11/17/20 11/17/20 11/17/20 03:14 04:00 05:09 WBC RBC Hgb Hct RDW Plt Count 123 L Lymph % (Auto) [place] % (Auto) Lymph # (Auto) [place] # (Auto) Seg Neutrophils % Seg Neuts % (Manual) Lymphocytes % (Manual) Monocytes % (Manual) Seg Neutrophils # Seg Neutrophils # Man Lymphocytes # (Manual) Monocytes # (Manual) PT INR APTT Fibrinogen D-Dimer Heparin Anti-Xa Level ABG pH 7.498 H POC ABG pCO2 27.2 L POC ABG pO2 110.6 H ABG pO2 ABG HCO3 ABG O2 Saturation ABG Base Excess ABG Hemoglobin 11.6 L ABG Oxyhemoglobin ABG Sodium 135.4 L ABG Potassium ABG Chloride ABG Glucose 131 H Oxyhemoglobin Carboxyhemoglobin Sodium Potassium Chloride Carbon Dioxide BUN Creatinine Glucose POC Glucose 119 H Hemoglobin A1c Lactic Acid Calcium Phosphorus Magnesium Ferritin Total Bilirubin AST ALT Lactate Dehydrogenase C-Reactive Protein Total Protein Albumin Arterial Blood Glucose 131 H Arterial Blood Ionized Calcium 3.7 L Urine WBC (Auto) U Epithel Cells (Auto) Urine Creatinine Vancomycin Trough Coronavirus (PCR) Crossmatch 11/17/20 11/17/20 11/17/20 09:59 09:59 09:59 WBC RBC Hgb Hct RDW Plt Count Lymph % (Auto) [place] % (Auto) Lymph # (Auto) [place] # (Auto) Seg Neutrophils % Seg Neuts % (Manual) Lymphocytes % (Manual) Monocytes % (Manual) Seg Neutrophils # Seg Neutrophils # Man Lymphocytes # (Manual) Monocytes # (Manual) PT INR APTT Fibrinogen D-Dimer 1401.08 H Heparin Anti-Xa Level ABG pH POC ABG pCO2 POC ABG pO2 ABG pO2 ABG HCO3 ABG O2 Saturation ABG Base Excess ABG Hemoglobin ABG Oxyhemoglobin ABG Sodium ABG Potassium ABG Chloride ABG Glucose Oxyhemoglobin Carboxyhemoglobin Sodium Potassium Chloride Carbon Dioxide BUN Creatinine Glucose 127 H POC Glucose Hemoglobin A1c Lactic Acid Calcium Phosphorus Magnesium Ferritin 224.1 H Total Bilirubin AST ALT Lactate Dehydrogenase 515 H C-Reactive Protein 4.80 H Total Protein Albumin Arterial Blood Glucose Arterial Blood Ionized Calcium Urine WBC (Auto) U Epithel Cells (Auto) Urine Creatinine Vancomycin Trough Coronavirus (PCR) Crossmatch 11/17/20 11/17/20 11/17/20 11:28 16:26 18:00 WBC RBC Hgb Hct RDW Plt Count Lymph % (Auto) [place] % (Auto) Lymph # (Auto) [place] # (Auto) Seg Neutrophils % Seg Neuts % (Manual) Lymphocytes % (Manual) Monocytes % (Manual) Seg Neutrophils # Seg Neutrophils # Man Lymphocytes # (Manual) Monocytes # (Manual) PT INR APTT Fibrinogen D-Dimer Heparin Anti-Xa Level 0.10 L ABG pH POC ABG pCO2 POC ABG pO2 ABG pO2 ABG HCO3 ABG O2 Saturation ABG Base Excess ABG Hemoglobin ABG Oxyhemoglobin ABG Sodium ABG Potassium ABG Chloride ABG Glucose Oxyhemoglobin Carboxyhemoglobin Sodium Potassium Chloride Carbon Dioxide BUN Creatinine Glucose POC Glucose 114 H 121 H Hemoglobin A1c Lactic Acid Calcium Phosphorus Magnesium Ferritin Total Bilirubin AST ALT Lactate Dehydrogenase C-Reactive Protein Total Protein Albumin Arterial Blood Glucose Arterial Blood Ionized Calcium Urine WBC (Auto) U Epithel Cells (Auto) Urine Creatinine Vancomycin Trough Coronavirus (PCR) Crossmatch 11/17/20 11/17/20 11/18/20 21:37 Unknown 02:11 WBC RBC Hgb Hct RDW Plt Count Lymph % (Auto) [place] % (Auto) Lymph # (Auto) [place] # (Auto) Seg Neutrophils % Seg Neuts % (Manual) Lymphocytes % (Manual) Monocytes % (Manual) Seg Neutrophils # Seg Neutrophils # Man Lymphocytes # (Manual) Monocytes # (Manual) PT INR APTT Fibrinogen D-Dimer Heparin Anti-Xa Level ABG pH POC ABG pCO2 POC ABG pO2 ABG pO2 ABG HCO3 ABG O2 Saturation ABG Base Excess ABG Hemoglobin ABG Oxyhemoglobin ABG Sodium ABG Potassium ABG Chloride ABG Glucose Oxyhemoglobin Carboxyhemoglobin Sodium 146 H D Potassium 3.5 L Chloride Carbon Dioxide BUN 67 H 62 H Creatinine 1.8 H 1.7 H Glucose 129 H 109 H POC Glucose 118 H Hemoglobin A1c Lactic Acid Calcium 6.5 L 5.7 L* Phosphorus Magnesium 1.20 L Ferritin Total Bilirubin AST ALT Lactate Dehydrogenase C-Reactive Protein Total Protein Albumin Arterial Blood Glucose Arterial Blood Ionized Calcium Urine WBC (Auto) U Epithel Cells (Auto) Urine Creatinine Vancomycin Trough Coronavirus (PCR) Crossmatch 11/18/20 11/18/20 11/18/20 02:38 04:44 17:09 WBC RBC Hgb Hct RDW Plt Count Lymph % (Auto) [place] % (Auto) Lymph # (Auto) [place] # (Auto) Seg Neutrophils % Seg Neuts % (Manual) Lymphocytes % (Manual) Monocytes % (Manual) Seg Neutrophils # Seg Neutrophils # Man Lymphocytes # (Manual) Monocytes # (Manual) PT INR APTT Fibrinogen D-Dimer Heparin Anti-Xa Level ABG pH 7.565 H POC ABG pCO2 30.4 L POC ABG pO2 72.0 L ABG pO2 ABG HCO3 ABG O2 Saturation ABG Base Excess ABG Hemoglobin 11.4 L ABG Oxyhemoglobin ABG Sodium 134.1 L ABG Potassium 2.9 L ABG Chloride ABG Glucose 110 H Oxyhemoglobin Carboxyhemoglobin 0.3 L Sodium Potassium Chloride Carbon Dioxide BUN Creatinine Glucose POC Glucose 109 H 125 H Hemoglobin A1c Lactic Acid Calcium Phosphorus Magnesium Ferritin Total Bilirubin AST ALT Lactate Dehydrogenase C-Reactive Protein Total Protein Albumin Arterial Blood Glucose 110 H Arterial Blood Ionized Calcium 3.4 L Urine WBC (Auto) U Epithel Cells (Auto) Urine Creatinine Vancomycin Trough Coronavirus (PCR) Crossmatch 11/19/20 11/19/20 11/19/20 03:19 04:00 04:00 WBC 14.3 H RBC 3.61 L Hgb Hct RDW Plt Count Lymph % (Auto) [place] % (Auto) Lymph # (Auto) [place] # (Auto) Seg Neutrophils % Seg Neuts % (Manual) 77.0 H Lymphocytes % (Manual) 13.0 L Monocytes % (Manual) 10.0 H Seg Neutrophils # Seg Neutrophils # Man 11.0 H Lymphocytes # (Manual) Monocytes # (Manual) 1.4 H PT INR APTT Fibrinogen D-Dimer Heparin Anti-Xa Level ABG pH 7.577 H POC ABG pCO2 28.0 L POC ABG pO2 57.4 L ABG pO2 ABG HCO3 ABG O2 Saturation ABG Base Excess ABG Hemoglobin 10.6 L ABG Oxyhemoglobin 90.3 L ABG Sodium ABG Potassium 2.8 L ABG Chloride ABG Glucose 102 H Oxyhemoglobin Carboxyhemoglobin 0.3 L Sodium Potassium 2.9 L* D Chloride Carbon Dioxide 31 H BUN 51 H Creatinine Glucose POC Glucose Hemoglobin A1c Lactic Acid Calcium 6.7 L D Phosphorus 1.90 L Magnesium Ferritin Total Bilirubin AST ALT Lactate Dehydrogenase 634 H C-Reactive Protein 1.40 H Total Protein Albumin Arterial Blood Glucose 102 H Arterial Blood Ionized Calcium 3.7 L Urine WBC (Auto) U Epithel Cells (Auto) Urine Creatinine Vancomycin Trough Coronavirus (PCR) Crossmatch 11/19/20 11/19/20 11/19/20 04:00 10:33 14:10 WBC RBC Hgb 8.9 L Hct 27.0 L RDW Plt Count Lymph % (Auto) [place] % (Auto) Lymph # (Auto) [place] # (Auto) Seg Neutrophils % Seg Neuts % (Manual) Lymphocytes % (Manual) Monocytes % (Manual) Seg Neutrophils # Seg Neutrophils # Man Lymphocytes # (Manual) Monocytes # (Manual) PT INR APTT Fibrinogen D-Dimer 1808.23 H Heparin Anti-Xa Level ABG pH POC ABG pCO2 POC ABG pO2 ABG pO2 ABG HCO3 ABG O2 Saturation ABG Base Excess ABG Hemoglobin ABG Oxyhemoglobin ABG Sodium ABG Potassium ABG Chloride ABG Glucose Oxyhemoglobin Carboxyhemoglobin Sodium Potassium Chloride Carbon Dioxide BUN Creatinine Glucose POC Glucose 109 H Hemoglobin A1c Lactic Acid Calcium Phosphorus Magnesium Ferritin Total Bilirubin AST ALT Lactate Dehydrogenase C-Reactive Protein Total Protein Albumin Arterial Blood Glucose Arterial Blood Ionized Calcium Urine WBC (Auto) U Epithel Cells (Auto) Urine Creatinine Vancomycin Trough Coronavirus (PCR) Crossmatch 11/19/20 11/19/20 11/19/20 17:28 19:45 19:45 WBC 22.7 H RBC 3.14 L Hgb 9.0 L Hct 27.2 L RDW Plt Count Lymph % (Auto) [place] % (Auto) Lymph # (Auto) [place] # (Auto) Seg Neutrophils % Seg Neuts % (Manual) Lymphocytes % (Manual) Monocytes % (Manual) Seg Neutrophils # Seg Neutrophils # Man Lymphocytes # (Manual) Monocytes # (Manual) PT 24.6 H INR 2.18 H APTT Fibrinogen D-Dimer Heparin Anti-Xa Level ABG pH POC ABG pCO2 POC ABG pO2 ABG pO2 ABG HCO3 ABG O2 Saturation ABG Base Excess ABG Hemoglobin ABG Oxyhemoglobin ABG Sodium ABG Potassium ABG Chloride ABG Glucose Oxyhemoglobin Carboxyhemoglobin Sodium Potassium Chloride Carbon Dioxide BUN Creatinine Glucose POC Glucose 186 H Hemoglobin A1c Lactic Acid Calcium Phosphorus Magnesium Ferritin Total Bilirubin AST ALT Lactate Dehydrogenase C-Reactive Protein Total Protein Albumin Arterial Blood Glucose Arterial Blood Ionized Calcium Urine WBC (Auto) U Epithel Cells (Auto) Urine Creatinine Vancomycin Trough Coronavirus (PCR) Crossmatch 11/19/20 11/19/20 11/19/20 19:45 19:45 19:45 WBC RBC Hgb Hct RDW Plt Count Lymph % (Auto) [place] % (Auto) Lymph # (Auto) [place] # (Auto) Seg Neutrophils % Seg Neuts % (Manual) Lymphocytes % (Manual) Monocytes % (Manual) Seg Neutrophils # Seg Neutrophils # Man Lymphocytes # (Manual) Monocytes # (Manual) PT INR APTT Fibrinogen D-Dimer Heparin Anti-Xa Level ABG pH POC ABG pCO2 POC ABG pO2 ABG pO2 ABG HCO3 ABG O2 Saturation ABG Base Excess ABG Hemoglobin ABG Oxyhemoglobin ABG Sodium ABG Potassium ABG Chloride ABG Glucose Oxyhemoglobin Carboxyhemoglobin Sodium Potassium Chloride Carbon Dioxide BUN 58 H Creatinine Glucose 192 H POC Glucose Hemoglobin A1c Lactic Acid 2.20 H* Calcium 6.9 L Phosphorus Magnesium Ferritin Total Bilirubin AST 119 H ALT 143 H Lactate Dehydrogenase C-Reactive Protein Total Protein 4.0 L Albumin 2.3 L Arterial Blood Glucose Arterial Blood Ionized Calcium Urine WBC (Auto) U Epithel Cells (Auto) Urine Creatinine Vancomycin Trough Coronavirus (PCR) Crossmatch See Detail 11/19/20 11/19/20 11/19/20 22:00 23:25 23:45 WBC RBC Hgb Hct RDW Plt Count Lymph % (Auto) [place] % (Auto) Lymph # (Auto) [place] # (Auto) Seg Neutrophils % Seg Neuts % (Manual) Lymphocytes % (Manual) Monocytes % (Manual) Seg Neutrophils # Seg Neutrophils # Man Lymphocytes # (Manual) Monocytes # (Manual) PT INR APTT Fibrinogen D-Dimer Heparin Anti-Xa Level > 2.00 H ABG pH POC ABG pCO2 POC ABG pO2 ABG pO2 ABG HCO3 ABG O2 Saturation ABG Base Excess ABG Hemoglobin ABG Oxyhemoglobin ABG Sodium ABG Potassium ABG Chloride ABG Glucose Oxyhemoglobin Carboxyhemoglobin Sodium Potassium Chloride Carbon Dioxide BUN Creatinine Glucose POC Glucose 155 H Hemoglobin A1c Lactic Acid Calcium Phosphorus Magnesium Ferritin Total Bilirubin AST ALT Lactate Dehydrogenase C-Reactive Protein Total Protein Albumin Arterial Blood Glucose Arterial Blood Ionized Calcium Urine WBC (Auto) > 182.0 H U Epithel Cells (Auto) Urine Creatinine Vancomycin Trough Coronavirus (PCR) Crossmatch 11/20/20 11/20/20 11/20/20 04:00 04:09 04:09 WBC 20.9 H RBC 3.48 L Hgb 10.0 L Hct 30.1 L RDW Plt Count Lymph % (Auto) [place] % (Auto) Lymph # (Auto) [place] # (Auto) Seg Neutrophils % Seg Neuts % (Manual) 77.0 H Lymphocytes % (Manual) 3.0 L Monocytes % (Manual) Seg Neutrophils # Seg Neutrophils # Man 16.1 H Lymphocytes # (Manual) 0.6 L Monocytes # (Manual) PT INR APTT Fibrinogen D-Dimer Heparin Anti-Xa Level ABG pH 7.595 H POC ABG pCO2 25.2 L POC ABG pO2 69.0 L ABG pO2 ABG HCO3 ABG O2 Saturation ABG Base Excess ABG Hemoglobin 9.8 L ABG Oxyhemoglobin ABG Sodium ABG Potassium ABG Chloride 110.0 H ABG Glucose 178 H Oxyhemoglobin Carboxyhemoglobin 0.2 L Sodium 147 H Potassium Chloride 107.8 H Carbon Dioxide BUN 63 H Creatinine 1.3 H Glucose 151 H POC Glucose Hemoglobin A1c Lactic Acid Calcium 6.3 L Phosphorus Magnesium Ferritin Total Bilirubin AST ALT Lactate Dehydrogenase C-Reactive Protein Total Protein Albumin Arterial Blood Glucose 178 H Arterial Blood Ionized Calcium 3.7 L Urine WBC (Auto) U Epithel Cells (Auto) Urine Creatinine Vancomycin Trough Coronavirus (PCR) Crossmatch 11/20/20 11/20/20 11/20/20 05:13 09:57 09:57 WBC RBC Hgb 9.4 L Hct 28.5 L RDW Plt Count Lymph % (Auto) [place] % (Auto) Lymph # (Auto) [place] # (Auto) Seg Neutrophils % Seg Neuts % (Manual) Lymphocytes % (Manual) Monocytes % (Manual) Seg Neutrophils # Seg Neutrophils # Man Lymphocytes # (Manual) Monocytes # (Manual) PT INR APTT Fibrinogen D-Dimer Heparin Anti-Xa Level ABG pH POC ABG pCO2 POC ABG pO2 ABG pO2 ABG HCO3 ABG O2 Saturation ABG Base Excess ABG Hemoglobin ABG Oxyhemoglobin ABG Sodium ABG Potassium ABG Chloride ABG Glucose Oxyhemoglobin Carboxyhemoglobin Sodium Potassium Chloride Carbon Dioxide BUN Creatinine Glucose POC Glucose 126 H Hemoglobin A1c Lactic Acid Calcium Phosphorus 5.40 H D Magnesium Ferritin Total Bilirubin AST ALT Lactate Dehydrogenase C-Reactive Protein Total Protein Albumin Arterial Blood Glucose Arterial Blood Ionized Calcium Urine WBC (Auto) U Epithel Cells (Auto) Urine Creatinine Vancomycin Trough Coronavirus (PCR) Crossmatch 11/20/20 11/20/20 11/20/20 12:07 17:52 20:48 WBC RBC Hgb Hct RDW Plt Count Lymph % (Auto) [place] % (Auto) Lymph # (Auto) [place] # (Auto) Seg Neutrophils % Seg Neuts % (Manual) Lymphocytes % (Manual) Monocytes % (Manual) Seg Neutrophils # Seg Neutrophils # Man Lymphocytes # (Manual) Monocytes # (Manual) PT INR APTT Fibrinogen D-Dimer Heparin Anti-Xa Level ABG pH 7.468 H POC ABG pCO2 25.5 L POC ABG pO2 ABG pO2 ABG HCO3 ABG O2 Saturation ABG Base Excess ABG Hemoglobin 7.6 L ABG Oxyhemoglobin ABG Sodium ABG Potassium ABG Chloride 111.0 H ABG Glucose 190 H Oxyhemoglobin Carboxyhemoglobin Sodium Potassium Chloride Carbon Dioxide BUN Creatinine Glucose POC Glucose 121 H 154 H Hemoglobin A1c Lactic Acid Calcium Phosphorus Magnesium Ferritin Total Bilirubin AST ALT Lactate Dehydrogenase C-Reactive Protein Total Protein Albumin Arterial Blood Glucose 190 H Arterial Blood Ionized Calcium 3.8 L Urine WBC (Auto) U Epithel Cells (Auto) Urine Creatinine Vancomycin Trough Coronavirus (PCR) Crossmatch 11/20/20 11/21/20 11/21/20 23:01 00:27 00:27 WBC RBC Hgb 7.0 L Hct 21.9 L D RDW Plt Count Lymph % (Auto) [place] % (Auto) Lymph # (Auto) [place] # (Auto) Seg Neutrophils % Seg Neuts % (Manual) Lymphocytes % (Manual) Monocytes % (Manual) Seg Neutrophils # Seg Neutrophils # Man Lymphocytes # (Manual) Monocytes # (Manual) PT INR APTT Fibrinogen D-Dimer Heparin Anti-Xa Level 1.46 H ABG pH POC ABG pCO2 POC ABG pO2 ABG pO2 ABG HCO3 ABG O2 Saturation ABG Base Excess ABG Hemoglobin ABG Oxyhemoglobin ABG Sodium ABG Potassium ABG Chloride ABG Glucose Oxyhemoglobin Carboxyhemoglobin Sodium Potassium Chloride Carbon Dioxide BUN Creatinine Glucose POC Glucose 144 H Hemoglobin A1c Lactic Acid Calcium Phosphorus Magnesium Ferritin Total Bilirubin AST ALT Lactate Dehydrogenase C-Reactive Protein Total Protein Albumin Arterial Blood Glucose Arterial Blood Ionized Calcium Urine WBC (Auto) U Epithel Cells (Auto) Urine Creatinine Vancomycin Trough Coronavirus (PCR) Crossmatch 11/21/20 11/21/20 11/21/20 09:53 09:53 09:53 WBC RBC Hgb 6.1 L Hct 20.2 L RDW Plt Count Lymph % (Auto) [place] % (Auto) Lymph # (Auto) [place] # (Auto) Seg Neutrophils % Seg Neuts % (Manual) Lymphocytes % (Manual) Monocytes % (Manual) Seg Neutrophils # Seg Neutrophils # Man Lymphocytes # (Manual) Monocytes # (Manual) PT 116.7 H INR 17.11 H* APTT Fibrinogen D-Dimer 1623.09 H Heparin Anti-Xa Level ABG pH POC ABG pCO2 POC ABG pO2 ABG pO2 ABG HCO3 ABG O2 Saturation ABG Base Excess ABG Hemoglobin ABG Oxyhemoglobin ABG Sodium ABG Potassium ABG Chloride ABG Glucose Oxyhemoglobin Carboxyhemoglobin Sodium 146 H Potassium 5.7 H D Chloride 107.6 H Carbon Dioxide 10 L D BUN 83 H Creatinine 1.9 H Glucose 158 H POC Glucose Hemoglobin A1c Lactic Acid Calcium 6.1 L Phosphorus Magnesium Ferritin Total Bilirubin AST ALT Lactate Dehydrogenase 1131 H C-Reactive Protein 2.00 H Total Protein Albumin Arterial Blood Glucose Arterial Blood Ionized Calcium Urine WBC (Auto) U Epithel Cells (Auto) Urine Creatinine Vancomycin Trough Coronavirus (PCR) Crossmatch 11/21/20 11/21/20 11/21/20 11:12 11:21 11:28 WBC RBC Hgb Hct RDW Plt Count Lymph % (Auto) [place] % (Auto) Lymph # (Auto) [place] # (Auto) Seg Neutrophils % Seg Neuts % (Manual) Lymphocytes % (Manual) Monocytes % (Manual) Seg Neutrophils # Seg Neutrophils # Man Lymphocytes # (Manual) Monocytes # (Manual) PT INR APTT Fibrinogen 208 L D-Dimer Heparin Anti-Xa Level 1.24 H ABG pH 7.056 L POC ABG pCO2 POC ABG pO2 ABG pO2 ABG HCO3 ABG O2 Saturation ABG Base Excess ABG Hemoglobin 4.4 L ABG Oxyhemoglobin 89.8 L ABG Sodium ABG Potassium ABG Chloride 111.0 H ABG Glucose 573 H Oxyhemoglobin Carboxyhemoglobin Sodium Potassium Chloride Carbon Dioxide BUN Creatinine Glucose POC Glucose 49 L Hemoglobin A1c Lactic Acid Calcium Phosphorus Magnesium Ferritin Total Bilirubin AST ALT Lactate Dehydrogenase C-Reactive Protein Total Protein Albumin Arterial Blood Glucose 573 H Arterial Blood Ionized Calcium Urine WBC (Auto) U Epithel Cells (Auto) Urine Creatinine Vancomycin Trough Coronavirus (PCR) Crossmatch 11/21/20 11/21/20 11/21/20 11:39 13:35 17:42 WBC RBC Hgb Hct RDW Plt Count Lymph % (Auto) [place] % (Auto) Lymph # (Auto) [place] # (Auto) Seg Neutrophils % Seg Neuts % (Manual) Lymphocytes % (Manual) Monocytes % (Manual) Seg Neutrophils # Seg Neutrophils # Man Lymphocytes # (Manual) Monocytes # (Manual) PT INR APTT Fibrinogen D-Dimer Heparin Anti-Xa Level ABG pH 7.213 L POC ABG pCO2 29.3 L POC ABG pO2 79.3 L ABG pO2 ABG HCO3 ABG O2 Saturation ABG Base Excess ABG Hemoglobin ABG Oxyhemoglobin 93.5 L ABG Sodium ABG Potassium ABG Chloride 110.0 H ABG Glucose 297 H Oxyhemoglobin Carboxyhemoglobin Sodium Potassium Chloride Carbon Dioxide BUN Creatinine Glucose POC Glucose 43 L 111 H Hemoglobin A1c Lactic Acid Calcium Phosphorus Magnesium Ferritin Total Bilirubin AST ALT Lactate Dehydrogenase C-Reactive Protein Total Protein Albumin Arterial Blood Glucose 297 H Arterial Blood Ionized Calcium 4.1 L Urine WBC (Auto) U Epithel Cells (Auto) Urine Creatinine Vancomycin Trough Coronavirus (PCR) Crossmatch 11/21/20 11/22/20 11/22/20 20:15 02:00 05:00 WBC RBC Hgb Hct RDW Plt Count Lymph % (Auto) [place] % (Auto) Lymph # (Auto) [place] # (Auto) Seg Neutrophils % Seg Neuts % (Manual) Lymphocytes % (Manual) Monocytes % (Manual) Seg Neutrophils # Seg Neutrophils # Man Lymphocytes # (Manual) Monocytes # (Manual) PT 22.6 H 20.8 H INR 1.93 H 1.73 H APTT Fibrinogen 200 L D-Dimer 2595.90 H Heparin Anti-Xa Level ABG pH POC ABG pCO2 POC ABG pO2 ABG pO2 ABG HCO3 ABG O2 Saturation ABG Base Excess ABG Hemoglobin ABG Oxyhemoglobin ABG Sodium ABG Potassium ABG Chloride ABG Glucose Oxyhemoglobin Carboxyhemoglobin Sodium Potassium Chloride Carbon Dioxide BUN Creatinine Glucose POC Glucose Hemoglobin A1c Lactic Acid 5.00 H* Calcium Phosphorus Magnesium Ferritin Total Bilirubin AST ALT Lactate Dehydrogenase C-Reactive Protein Total Protein Albumin Arterial Blood Glucose Arterial Blood Ionized Calcium Urine WBC (Auto) U Epithel Cells (Auto) Urine Creatinine Vancomycin Trough Coronavirus (PCR) Crossmatch 11/22/20 11/22/20 11/22/20 05:24 11:00 13:00 WBC 21.5 H RBC Hgb Hct RDW Plt Count 37 L Lymph % (Auto) [place] % (Auto) Lymph # (Auto) [place] # (Auto) Seg Neutrophils % Seg Neuts % (Manual) Lymphocytes % (Manual) Monocytes % (Manual) Seg Neutrophils # Seg Neutrophils # Man Lymphocytes # (Manual) Monocytes # (Manual) PT INR APTT Fibrinogen D-Dimer Heparin Anti-Xa Level ABG pH 7.545 H POC ABG pCO2 29.3 L POC ABG pO2 ABG pO2 ABG HCO3 ABG O2 Saturation ABG Base Excess ABG Hemoglobin 10.3 L ABG Oxyhemoglobin ABG Sodium ABG Potassium 3.0 L ABG Chloride 111.0 H ABG Glucose 107 H Oxyhemoglobin Carboxyhemoglobin 0.1 L Sodium Potassium Chloride Carbon Dioxide BUN Creatinine Glucose POC Glucose 36 L Hemoglobin A1c Lactic Acid Calcium Phosphorus Magnesium Ferritin Total Bilirubin AST ALT Lactate Dehydrogenase C-Reactive Protein Total Protein Albumin Arterial Blood Glucose 107 H Arterial Blood Ionized Calcium 3.3 L Urine WBC (Auto) U Epithel Cells (Auto) Urine Creatinine Vancomycin Trough Coronavirus (PCR) Crossmatch 11/22/20 11/22/20 11/22/20 17:37 23:00 Unknown WBC RBC Hgb Hct RDW Plt Count Lymph % (Auto) [place] % (Auto) Lymph # (Auto) [place] # (Auto) Seg Neutrophils % Seg Neuts % (Manual) Lymphocytes % (Manual) Monocytes % (Manual) Seg Neutrophils # Seg Neutrophils # Man Lymphocytes # (Manual) Monocytes # (Manual) PT INR APTT Fibrinogen D-Dimer Heparin Anti-Xa Level ABG pH POC ABG pCO2 POC ABG pO2 ABG pO2 ABG HCO3 ABG O2 Saturation ABG Base Excess ABG Hemoglobin ABG Oxyhemoglobin ABG Sodium ABG Potassium ABG Chloride ABG Glucose Oxyhemoglobin Carboxyhemoglobin Sodium Potassium 3.0 L Chloride Carbon Dioxide BUN Creatinine Glucose POC Glucose 112 H Hemoglobin A1c Lactic Acid Calcium Phosphorus Magnesium Ferritin Total Bilirubin AST ALT Lactate Dehydrogenase C-Reactive Protein 1.90 H Total Protein Albumin Arterial Blood Glucose Arterial Blood Ionized Calcium Urine WBC (Auto) U Epithel Cells (Auto) Urine Creatinine Vancomycin Trough Coronavirus (PCR) Crossmatch 11/22/20 11/22/20 11/22/20 Unknown Unknown Unknown WBC 16.4 H RBC Hgb Hct RDW 15.4 H Plt Count 40 L Lymph % (Auto) [place] % (Auto) Lymph # (Auto) [place] # (Auto) Seg Neutrophils % Seg Neuts % (Manual) Lymphocytes % (Manual) Monocytes % (Manual) Seg Neutrophils # Seg Neutrophils # Man Lymphocytes # (Manual) Monocytes # (Manual) PT INR APTT Fibrinogen D-Dimer Heparin Anti-Xa Level ABG pH POC ABG pCO2 POC ABG pO2 ABG pO2 ABG HCO3 ABG O2 Saturation ABG Base Excess ABG Hemoglobin ABG Oxyhemoglobin ABG Sodium ABG Potassium ABG Chloride ABG Glucose Oxyhemoglobin Carboxyhemoglobin Sodium 152 H Potassium 2.8 L* D Chloride 108.9 H Carbon Dioxide BUN 76 H Creatinine 1.7 H Glucose POC Glucose Hemoglobin A1c Lactic Acid Calcium 6.8 L Phosphorus Magnesium 1.50 L Ferritin 1559.0 H Total Bilirubin 1.50 H AST 4887 H ALT 1552 H Lactate Dehydrogenase C-Reactive Protein Total Protein 3.8 L Albumin 2.2 L Arterial Blood Glucose Arterial Blood Ionized Calcium Urine WBC (Auto) U Epithel Cells (Auto) Urine Creatinine Vancomycin Trough Coronavirus (PCR) Crossmatch 11/22/20 11/22/20 11/23/20 Unknown Unknown 04:00 WBC 15.2 H RBC 3.27 L Hgb 9.6 L Hct 28.8 L RDW 15.7 H Plt Count 38 L Lymph % (Auto) [place] % (Auto) Lymph # (Auto) [place] # (Auto) Seg Neutrophils % Seg Neuts % (Manual) Lymphocytes % (Manual) Monocytes % (Manual) Seg Neutrophils # Seg Neutrophils # Man Lymphocytes # (Manual) Monocytes # (Manual) PT INR APTT Fibrinogen D-Dimer Heparin Anti-Xa Level ABG pH POC ABG pCO2 POC ABG pO2 ABG pO2 ABG HCO3 ABG O2 Saturation ABG Base Excess ABG Hemoglobin ABG Oxyhemoglobin ABG Sodium ABG Potassium ABG Chloride ABG Glucose Oxyhemoglobin Carboxyhemoglobin Sodium 152 H Potassium 2.8 L* Chloride 107.5 H Carbon Dioxide 32 H BUN 75 H Creatinine 1.7 H Glucose 130 H POC Glucose Hemoglobin A1c Lactic Acid 5.20 H* Calcium 6.5 L Phosphorus Magnesium Ferritin Total Bilirubin 1.40 H AST 4513 H ALT 1512 H Lactate Dehydrogenase C-Reactive Protein Total Protein 3.4 L Albumin 2.1 L Arterial Blood Glucose Arterial Blood Ionized Calcium Urine WBC (Auto) U Epithel Cells (Auto) Urine Creatinine Vancomycin Trough Coronavirus (PCR) Crossmatch 11/23/20 11/23/20 11/23/20 04:00 04:00 05:04 WBC RBC Hgb Hct RDW Plt Count Lymph % (Auto) [place] % (Auto) Lymph # (Auto) [place] # (Auto) Seg Neutrophils % Seg Neuts % (Manual) Lymphocytes % (Manual) Monocytes % (Manual) Seg Neutrophils # Seg Neutrophils # Man Lymphocytes # (Manual) Monocytes # (Manual) PT 21.0 H INR 1.75 H APTT Fibrinogen D-Dimer Heparin Anti-Xa Level ABG pH 7.518 H POC ABG pCO2 14.6 L POC ABG pO2 ABG pO2 ABG HCO3 ABG O2 Saturation ABG Base Excess ABG Hemoglobin 5.3 L ABG Oxyhemoglobin ABG Sodium ABG Potassium 1.5 L ABG Chloride 129.0 H ABG Glucose 99 H Oxyhemoglobin Carboxyhemoglobin Sodium 152 H Potassium 3.1 L Chloride 112.5 H Carbon Dioxide BUN 77 H Creatinine 2.0 H Glucose 177 H POC Glucose Hemoglobin A1c Lactic Acid Calcium 6.0 L Phosphorus Magnesium Ferritin Total Bilirubin AST 1058 H ALT 929 H Lactate Dehydrogenase C-Reactive Protein Total Protein 3.6 L Albumin 1.6 L Arterial Blood Glucose 99 H Arterial Blood Ionized Calcium Urine WBC (Auto) U Epithel Cells (Auto) Urine Creatinine Vancomycin Trough Coronavirus (PCR) Crossmatch 11/23/20 11/24/20 11/24/20 05:06 04:00 05:30 WBC RBC Hgb Hct RDW Plt Count Lymph % (Auto) [place] % (Auto) Lymph # (Auto) [place] # (Auto) Seg Neutrophils % Seg Neuts % (Manual) Lymphocytes % (Manual) Monocytes % (Manual) Seg Neutrophils # Seg Neutrophils # Man Lymphocytes # (Manual) Monocytes # (Manual) PT 22.8 H INR 1.95 H APTT Fibrinogen D-Dimer 2825.65 H Heparin Anti-Xa Level ABG pH 7.508 H POC ABG pCO2 31.7 L POC ABG pO2 75.3 L ABG pO2 ABG HCO3 ABG O2 Saturation ABG Base Excess ABG Hemoglobin 10.6 L ABG Oxyhemoglobin ABG Sodium 145.3 H ABG Potassium 2.8 L ABG Chloride 112.0 H ABG Glucose 119 H Oxyhemoglobin Carboxyhemoglobin Sodium Potassium Chloride Carbon Dioxide BUN Creatinine Glucose POC Glucose 109 H Hemoglobin A1c Lactic Acid Calcium Phosphorus Magnesium Ferritin Total Bilirubin AST ALT Lactate Dehydrogenase C-Reactive Protein Total Protein Albumin Arterial Blood Glucose 119 H Arterial Blood Ionized Calcium 3.8 L Urine WBC (Auto) U Epithel Cells (Auto) Urine Creatinine Vancomycin Trough Coronavirus (PCR) Crossmatch 11/24/20 11/24/20 11/24/20 05:30 05:30 05:30 WBC RBC Hgb Hct RDW 16.2 H Plt Count 28 L Lymph % (Auto) Hickman % (Auto) Lymph # (Auto) Hickman # (Auto) Seg Neutrophils % Seg Neuts % (Manual) Lymphocytes % (Manual) Monocytes % (Manual) Seg Neutrophils # Seg Neutrophils # Man Lymphocytes # (Manual) Monocytes # (Manual) PT INR APTT Fibrinogen D-Dimer Heparin Anti-Xa Level ABG pH POC ABG pCO2 POC ABG pO2 ABG pO2 ABG HCO3 ABG O2 Saturation ABG Base Excess ABG Hemoglobin ABG Oxyhemoglobin ABG Sodium ABG Potassium ABG Chloride ABG Glucose Oxyhemoglobin Carboxyhemoglobin Sodium 151 H Potassium 2.9 L* Chloride 113.8 H Carbon Dioxide BUN 75 H Creatinine 1.8 H Glucose 117 H POC Glucose Hemoglobin A1c Lactic Acid Calcium 6.6 L Phosphorus Magnesium Ferritin 531.5 H Total Bilirubin AST 216 H ALT 5 L Lactate Dehydrogenase C-Reactive Protein Total Protein 4.0 L Albumin < 0.2 L Arterial Blood Glucose Arterial Blood Ionized Calcium Urine WBC (Auto) U Epithel Cells (Auto) Urine Creatinine Vancomycin Trough Coronavirus (PCR) Crossmatch 11/24/20 11/24/20 11/24/20 05:53 12:27 15:00 WBC RBC Hgb Hct RDW Plt Count Lymph % (Auto) Hickman % (Auto) Lymph # (Auto) Hickman # (Auto) Seg Neutrophils % Seg Neuts % (Manual) Lymphocytes % (Manual) Monocytes % (Manual) Seg Neutrophils # Seg Neutrophils # Man Lymphocytes # (Manual) Monocytes # (Manual) PT INR APTT Fibrinogen D-Dimer Heparin Anti-Xa Level ABG pH POC ABG pCO2 POC ABG pO2 ABG pO2 ABG HCO3 ABG O2 Saturation ABG Base Excess ABG Hemoglobin ABG Oxyhemoglobin ABG Sodium ABG Potassium ABG Chloride ABG Glucose Oxyhemoglobin Carboxyhemoglobin Sodium Potassium Chloride Carbon Dioxide BUN Creatinine Glucose POC Glucose 107 H 63 L Hemoglobin A1c Lactic Acid Calcium Phosphorus Magnesium Ferritin Total Bilirubin AST ALT Lactate Dehydrogenase C-Reactive Protein Total Protein Albumin Arterial Blood Glucose Arterial Blood Ionized Calcium Urine WBC (Auto) U Epithel Cells (Auto) Urine Creatinine Vancomycin Trough 35.2 H Coronavirus (PCR) Crossmatch 11/24/20 11/25/20 11/25/20 23:44 04:00 12:00 WBC RBC Hgb Hct RDW Plt Count Lymph % (Auto) Hickman % (Auto) Lymph # (Auto) Hickman # (Auto) Seg Neutrophils % Seg Neuts % (Manual) Lymphocytes % (Manual) Monocytes % (Manual) Seg Neutrophils # Seg Neutrophils # Man Lymphocytes # (Manual) Monocytes # (Manual) PT INR APTT Fibrinogen D-Dimer Heparin Anti-Xa Level ABG pH 7.508 H POC ABG pCO2 POC ABG pO2 ABG pO2 90.8 H ABG HCO3 ABG O2 Saturation ABG Base Excess ABG Hemoglobin 7.3 L ABG Oxyhemoglobin ABG Sodium ABG Potassium ABG Chloride ABG Glucose Oxyhemoglobin Carboxyhemoglobin Sodium 149 H Potassium 2.8 L* D Chloride 114.4 H Carbon Dioxide BUN 65 H Creatinine 1.7 H Glucose POC Glucose 67 L Hemoglobin A1c Lactic Acid Calcium 6.3 L Phosphorus Magnesium Ferritin Total Bilirubin AST 72 H ALT 261 H Lactate Dehydrogenase 717 H C-Reactive Protein 6.60 H Total Protein 3.4 L Albumin 1.8 L Arterial Blood Glucose Arterial Blood Ionized Calcium Urine WBC (Auto) U Epithel Cells (Auto) Urine Creatinine Vancomycin Trough Coronavirus (PCR) Crossmatch 11/25/20 11/25/20 11/25/20 12:00 12:00 12:00 WBC RBC 2.91 L Hgb 8.6 L Hct 25.7 L D RDW 16.2 H Plt Count 37 L Lymph % (Auto) Hickman % (Auto) Lymph # (Auto) Hickman # (Auto) Seg Neutrophils % Seg Neuts % (Manual) Lymphocytes % (Manual) Monocytes % (Manual) Seg Neutrophils # Seg Neutrophils # Man Lymphocytes # (Manual) Monocytes # (Manual) PT 23.0 H INR 1.97 H APTT Fibrinogen D-Dimer 3455.77 H Heparin Anti-Xa Level ABG pH POC ABG pCO2 POC ABG pO2 ABG pO2 ABG HCO3 ABG O2 Saturation ABG Base Excess ABG Hemoglobin ABG Oxyhemoglobin ABG Sodium ABG Potassium ABG Chloride ABG Glucose Oxyhemoglobin Carboxyhemoglobin Sodium Potassium Chloride Carbon Dioxide BUN Creatinine Glucose POC Glucose Hemoglobin A1c Lactic Acid Calcium Phosphorus Magnesium Ferritin 267.2 H Total Bilirubin AST ALT Lactate Dehydrogenase C-Reactive Protein Total Protein Albumin Arterial Blood Glucose Arterial Blood Ionized Calcium Urine WBC (Auto) U Epithel Cells (Auto) Urine Creatinine Vancomycin Trough Coronavirus (PCR) Crossmatch 11/25/20 11/25/20 11/25/20 14:00 15:43 17:09 WBC RBC Hgb Hct RDW Plt Count Lymph % (Auto) Hickman % (Auto) Lymph # (Auto) Hickman # (Auto) Seg Neutrophils % Seg Neuts % (Manual) Lymphocytes % (Manual) Monocytes % (Manual) Seg Neutrophils # Seg Neutrophils # Man Lymphocytes # (Manual) Monocytes # (Manual) PT INR APTT Fibrinogen D-Dimer Heparin Anti-Xa Level ABG pH 7.505 H POC ABG pCO2 POC ABG pO2 ABG pO2 52.7 L ABG HCO3 18.6 L ABG O2 Saturation 90.4 L ABG Base Excess -3.6 L ABG Hemoglobin 8.9 L ABG Oxyhemoglobin ABG Sodium ABG Potassium ABG Chloride ABG Glucose Oxyhemoglobin 89.0 L Carboxyhemoglobin Sodium Potassium Chloride Carbon Dioxide BUN Creatinine Glucose POC Glucose 58 L Hemoglobin A1c Lactic Acid Calcium Phosphorus Magnesium 1.60 L Ferritin Total Bilirubin AST ALT Lactate Dehydrogenase C-Reactive Protein Total Protein Albumin Arterial Blood Glucose Arterial Blood Ionized Calcium Urine WBC (Auto) U Epithel Cells (Auto) Urine Creatinine Vancomycin Trough Coronavirus (PCR) Crossmatch 11/26/20 11/26/20 11/26/20 05:00 08:00 08:00 WBC 2.6 L RBC 2.88 L Hgb 8.6 L Hct 26.8 L RDW 17.7 H Plt Count 27 L Lymph % (Auto) Hickman % (Auto) Lymph # (Auto) Hickman # (Auto) Seg Neutrophils % Seg Neuts % (Manual) Lymphocytes % (Manual) Monocytes % (Manual) Seg Neutrophils # Seg Neutrophils # Man Lymphocytes # (Manual) Monocytes # (Manual) PT INR APTT Fibrinogen D-Dimer Heparin Anti-Xa Level ABG pH POC ABG pCO2 25.2 L POC ABG pO2 60.3 L ABG pO2 ABG HCO3 ABG O2 Saturation ABG Base Excess ABG Hemoglobin 10.8 L ABG Oxyhemoglobin 87.9 L ABG Sodium ABG Potassium ABG Chloride 119.0 H ABG Glucose 171 H Oxyhemoglobin Carboxyhemoglobin 0.3 L Sodium Potassium 3.3 L Chloride 112.7 H Carbon Dioxide 13 L D BUN 60 H Creatinine 1.7 H Glucose 448 H POC Glucose Hemoglobin A1c Lactic Acid Calcium 5.8 L* Phosphorus Magnesium Ferritin Total Bilirubin AST ALT 143 H Lactate Dehydrogenase C-Reactive Protein Total Protein 3.0 L Albumin 1.3 L Arterial Blood Glucose 171 H Arterial Blood Ionized Calcium 4.1 L Urine WBC (Auto) U Epithel Cells (Auto) Urine Creatinine Vancomycin Trough Coronavirus (PCR) Crossmatch 11/26/20 11/26/20 08:00 11:29 WBC RBC Hgb Hct RDW Plt Count Lymph % (Auto) Hickman % (Auto) Lymph # (Auto) Hickman # (Auto) Seg Neutrophils % Seg Neuts % (Manual) Lymphocytes % (Manual) Monocytes % (Manual) Seg Neutrophils # Seg Neutrophils # Man Lymphocytes # (Manual) Monocytes # (Manual) PT 35.9 H INR 3.57 H APTT 41.1 H Fibrinogen D-Dimer Heparin Anti-Xa Level ABG pH POC ABG pCO2 POC ABG pO2 ABG pO2 ABG HCO3 ABG O2 Saturation ABG Base Excess ABG Hemoglobin ABG Oxyhemoglobin ABG Sodium ABG Potassium ABG Chloride ABG Glucose Oxyhemoglobin Carboxyhemoglobin Sodium Potassium Chloride Carbon Dioxide BUN Creatinine Glucose POC Glucose 47 L Hemoglobin A1c Lactic Acid Calcium Phosphorus Magnesium Ferritin Total Bilirubin AST ALT Lactate Dehydrogenase C-Reactive Protein Total Protein Albumin Arterial Blood Glucose Arterial Blood Ionized Calcium Urine WBC (Auto) U Epithel Cells (Auto) Urine Creatinine Vancomycin Trough Coronavirus (PCR) Crossmatch Allied health notes reviewed: nursing
--- NOTE | 2020-11-26 13:13 | Progress Note ---
Assessment and Plan 85-year-old female with Covid pneumonia who presents to the hospital with respiratory distress who had inadvertent left carotid line insertion. Complicated situation. Patient is worsening, now on 2 pressors. She has not being sedated and still does not demonstrate movement. No left neck hematoma. Has been made DNR due to GI bleed and Covid pneumonia. Not stable for heparin drip given recent near fatal massive GI bleed. At high risk for left carotid artery occlusion and stroke with indwelling carotid line. Not stable enough for left carotid artery stent graft. Prior to stent graft placement, will need repeat CT angiogram of the neck. Also in ARF. We will continue to monitor patient. Overall prognosis is quite poor. Subjective Principal diagnosis: Ac hypoxemic resp failure; COVID-19 infxn; Pneumonia; KATLYN; AMS; Sepsis Interval history: Patient is sedated. No hematoma of the left neck. Left carotid central line intact. Objective - Constitutional Vitals: Vital Signs - 12hr 11/26/20 11/26/20 11/26/20 01:15 01:31 01:45 Temperature Pulse Rate 108 H 108 H 107 H Respiratory 28 H 35 H 14 Rate Blood Pressure O2 Sat by Pulse 96 96 96 Oximetry 11/26/20 11/26/20 11/26/20 02:01 02:15 02:31 Temperature Pulse Rate 109 H 111 H 112 H Respiratory 22 30 H 29 H Rate Blood Pressure 132/94 O2 Sat by Pulse 95 97 97 Oximetry 11/26/20 11/26/20 11/26/20 02:37 02:45 03:01 Temperature Pulse Rate 111 H 110 H 114 H Respiratory 27 H 31 H Rate Blood Pressure 132/54 O2 Sat by Pulse 96 96 95 Oximetry 11/26/20 11/26/20 11/26/20 03:15 03:26 03:31 Temperature 97.3 F L Pulse Rate 114 H 112 H Respiratory 32 H 25 H Rate Blood Pressure O2 Sat by Pulse 96 98 Oximetry 11/26/20 11/26/20 11/26/20 03:45 04:00 04:01 Temperature Pulse Rate 116 H 114 H 114 H Respiratory 38 H 32 H Rate Blood Pressure O2 Sat by Pulse 96 98 96 Oximetry 11/26/20 11/26/20 11/26/20 04:15 04:31 04:45 Temperature Pulse Rate 115 H 118 H 115 H Respiratory 18 31 H 17 Rate Blood Pressure O2 Sat by Pulse 94 93 93 Oximetry 11/26/20 11/26/20 11/26/20 05:01 05:15 05:18 Temperature Pulse Rate 115 H 116 H 112 H Respiratory 21 17 Rate Blood Pressure 132/54 O2 Sat by Pulse 92 90 92 Oximetry 11/26/20 11/26/20 11/26/20 05:31 05:45 06:01 Temperature Pulse Rate 114 H 111 H 113 H Respiratory 40 H 37 H 33 H Rate Blood Pressure O2 Sat by Pulse 74 L Oximetry 11/26/20 11/26/20 11/26/20 06:15 06:31 06:45 Temperature Pulse Rate 111 H 112 H 112 H Respiratory 16 17 20 Rate Blood Pressure O2 Sat by Pulse 66 L Oximetry 11/26/20 11/26/20 11/26/20 07:01 07:15 07:22 Temperature 96.6 F L Pulse Rate 113 H 109 H Respiratory 16 18 Rate Blood Pressure 132/94 O2 Sat by Pulse 93 Oximetry 11/26/20 11/26/20 11/26/20 07:31 07:45 07:54 Temperature Pulse Rate 109 H 111 H 111 H Respiratory 13 14 Rate Blood Pressure 132/94 132/94 87/40 O2 Sat by Pulse 91 Oximetry 11/26/20 11/26/20 11/26/20 08:00 08:01 08:15 Temperature Pulse Rate 112 H 113 H 111 H Respiratory 15 13 Rate Blood Pressure 132/94 132/94 O2 Sat by Pulse 93 87 Oximetry 11/26/20 11/26/20 11/26/20 08:31 08:45 09:00 Temperature Pulse Rate 109 H 109 H 111 H Respiratory 15 17 15 Rate Blood Pressure 132/94 132/94 107/64 O2 Sat by Pulse 88 92 90 Oximetry 11/26/20 11/26/20 11/26/20 09:15 09:31 09:45 Temperature Pulse Rate 106 H 109 H 97 H Respiratory 14 15 16 Rate Blood Pressure 107/64 107/64 107/64 O2 Sat by Pulse 90 91 95 Oximetry 11/26/20 11/26/20 11/26/20 10:01 10:15 10:31 Temperature Pulse Rate 87 85 99 H Respiratory 16 19 39 H Rate Blood Pressure O2 Sat by Pulse 81 L 99 97 Oximetry 11/26/20 11/26/20 11/26/20 10:45 11:01 11:15 Temperature Pulse Rate 107 H 110 H 110 H Respiratory 16 15 16 Rate Blood Pressure O2 Sat by Pulse 95 92 Oximetry 11/26/20 11/26/20 11/26/20 11:21 11:31 11:45 Temperature Pulse Rate 111 H 111 H 112 H Respiratory 15 15 Rate Blood Pressure 116/53 O2 Sat by Pulse 92 90 91 Oximetry 11/26/20 11/26/20 11/26/20 12:00 12:01 12:15 Temperature 98.4 F Pulse Rate 112 H 112 H 112 H Respiratory 19 15 Rate Blood Pressure O2 Sat by Pulse 93 95 Oximetry 11/26/20 12:31 Temperature Pulse Rate 112 H Respiratory 24 Rate Blood Pressure O2 Sat by Pulse 96 Oximetry General appearance: Present: other (Intubated) - EENT ENT: other (Intubated) - Neck Neck: other (Intubated, no left neck hematoma at left carotid line) - Respiratory Respiratory effort: other (Intubated) - Neurologic Neurologic: other (Unable to determine, intubated) - Psychiatric Psychiatric: other (Intubated) - Labs CBC & Chem 7: 11/26/20 08:00 11/26/20 08:00 Labs: Abnormal lab results 11/25/20 11/25/20 11/25/20 Range/Units 12:00 12:00 14:00 WBC (4.5-11.0) K/mm3 RBC (3.65-5.03) M/mm3 Hgb (10.1-14.3) gm/dl Hct (30.3-42.9) % RDW (13.2-15.2) % Plt Count (140-440) K/mm3 PT (12.2-14.9) Sec. INR (0.87-1.13) APTT (24.2-36.6) Sec. ABG pH (7.350-7.450) pH Units POC ABG pCO2 (32.0-48.0) mmHg POC ABG pO2 (83-108) mmHg ABG pO2 (80.0-90.0) mm Hg ABG HCO3 (20.0-26.0) mmol/L ABG O2 Saturation (95.0-99.0) % ABG Base Excess (-2.0-3.0) mmol/L ABG Hemoglobin (12.0-16.0) gm/dl ABG Oxyhemoglobin (94-98) ABG Chloride (98-107) mmol/L ABG Glucose (65-95) mg/dL Oxyhemoglobin (95.0-99.0) % Carboxyhemoglobin (0.5-1.5) Potassium 2.8 L* D (3.6-5.0) mmol/L Chloride (98-107) mmol/L Carbon Dioxide (22-30) mmol/L BUN (7-17) mg/dL Creatinine (0.6-1.2) mg/dL Glucose (65-100) mg/dL POC Glucose (70-105) mg/dL Calcium (8.4-10.2) mg/dL Magnesium 1.60 L (1.7-2.3) mg/dL Ferritin 267.2 H (10.0-200.0) ng/mL ALT (7-56) units/L Total Protein (6.3-8.2) g/dL Albumin (3.9-5) g/dL Arterial Blood Glucose (65-95) mg/dL Arterial Blood Ionized Calcium (4.6-5.3) mg/dL 11/25/20 11/25/20 11/26/20 Range/Units 15:43 17:09 05:00 WBC (4.5-11.0) K/mm3 RBC (3.65-5.03) M/mm3 Hgb (10.1-14.3) gm/dl Hct (30.3-42.9) % RDW (13.2-15.2) % Plt Count (140-440) K/mm3 PT (12.2-14.9) Sec. INR (0.87-1.13) APTT (24.2-36.6) Sec. ABG pH 7.505 H (7.350-7.450) pH Units POC ABG pCO2 25.2 L (32.0-48.0) mmHg POC ABG pO2 60.3 L (83-108) mmHg ABG pO2 52.7 L (80.0-90.0) mm Hg ABG HCO3 18.6 L (20.0-26.0) mmol/L ABG O2 Saturation 90.4 L (95.0-99.0) % ABG Base Excess -3.6 L (-2.0-3.0) mmol/L ABG Hemoglobin 8.9 L 10.8 L (12.0-16.0) gm/dl ABG Oxyhemoglobin 87.9 L (94-98) ABG Chloride 119.0 H (98-107) mmol/L ABG Glucose 171 H (65-95) mg/dL Oxyhemoglobin 89.0 L (95.0-99.0) % Carboxyhemoglobin 0.3 L (0.5-1.5) Potassium (3.6-5.0) mmol/L Chloride (98-107) mmol/L Carbon Dioxide (22-30) mmol/L BUN (7-17) mg/dL Creatinine (0.6-1.2) mg/dL Glucose (65-100) mg/dL POC Glucose 58 L (70-105) mg/dL Calcium (8.4-10.2) mg/dL Magnesium (1.7-2.3) mg/dL Ferritin (10.0-200.0) ng/mL ALT (7-56) units/L Total Protein (6.3-8.2) g/dL Albumin (3.9-5) g/dL Arterial Blood Glucose 171 H (65-95) mg/dL Arterial Blood Ionized Calcium 4.1 L (4.6-5.3) mg/dL 11/26/20 11/26/20 11/26/20 Range/Units 08:00 08:00 08:00 WBC 2.6 L (4.5-11.0) K/mm3 RBC 2.88 L (3.65-5.03) M/mm3 Hgb 8.6 L (10.1-14.3) gm/dl Hct 26.8 L (30.3-42.9) % RDW 17.7 H (13.2-15.2) % Plt Count 27 L (140-440) K/mm3 PT 35.9 H (12.2-14.9) Sec. INR 3.57 H (0.87-1.13) APTT 41.1 H (24.2-36.6) Sec. ABG pH (7.350-7.450) pH Units POC ABG pCO2 (32.0-48.0) mmHg POC ABG pO2 (83-108) mmHg ABG pO2 (80.0-90.0) mm Hg ABG HCO3 (20.0-26.0) mmol/L ABG O2 Saturation (95.0-99.0) % ABG Base Excess (-2.0-3.0) mmol/L ABG Hemoglobin (12.0-16.0) gm/dl ABG Oxyhemoglobin (94-98) ABG Chloride (98-107) mmol/L ABG Glucose (65-95) mg/dL Oxyhemoglobin (95.0-99.0) % Carboxyhemoglobin (0.5-1.5) Potassium 3.3 L (3.6-5.0) mmol/L Chloride 112.7 H (98-107) mmol/L Carbon Dioxide 13 L D (22-30) mmol/L BUN 60 H (7-17) mg/dL Creatinine 1.7 H (0.6-1.2) mg/dL Glucose 448 H (65-100) mg/dL POC Glucose (70-105) mg/dL Calcium 5.8 L* (8.4-10.2) mg/dL Magnesium (1.7-2.3) mg/dL Ferritin (10.0-200.0) ng/mL ALT 143 H (7-56) units/L Total Protein 3.0 L (6.3-8.2) g/dL Albumin 1.3 L (3.9-5) g/dL Arterial Blood Glucose (65-95) mg/dL Arterial Blood Ionized Calcium (4.6-5.3) mg/dL 11/26/20 Range/Units 11:29 WBC (4.5-11.0) K/mm3 RBC (3.65-5.03) M/mm3 Hgb (10.1-14.3) gm/dl Hct (30.3-42.9) % RDW (13.2-15.2) % Plt Count (140-440) K/mm3 PT (12.2-14.9) Sec. INR (0.87-1.13) APTT (24.2-36.6) Sec. ABG pH (7.350-7.450) pH Units POC ABG pCO2 (32.0-48.0) mmHg POC ABG pO2 (83-108) mmHg ABG pO2 (80.0-90.0) mm Hg ABG HCO3 (20.0-26.0) mmol/L ABG O2 Saturation (95.0-99.0) % ABG Base Excess (-2.0-3.0) mmol/L ABG Hemoglobin (12.0-16.0) gm/dl ABG Oxyhemoglobin (94-98) ABG Chloride (98-107) mmol/L ABG Glucose (65-95) mg/dL Oxyhemoglobin (95.0-99.0) % Carboxyhemoglobin (0.5-1.5) Potassium (3.6-5.0) mmol/L Chloride (98-107) mmol/L Carbon Dioxide (22-30) mmol/L BUN (7-17) mg/dL Creatinine (0.6-1.2) mg/dL Glucose (65-100) mg/dL POC Glucose 47 L (70-105) mg/dL Calcium (8.4-10.2) mg/dL Magnesium (1.7-2.3) mg/dL Ferritin (10.0-200.0) ng/mL ALT (7-56) units/L Total Protein (6.3-8.2) g/dL Albumin (3.9-5) g/dL Arterial Blood Glucose (65-95) mg/dL Arterial Blood Ionized Calcium (4.6-5.3) mg/dL Medications & Allergies - Medications Allergies/Adverse Reactions: Allergies morphine Adverse Reaction (Verified 05/26/13 19:22) Nausea Home Medications: Home Medications Medication Instructions Recorded Confirmed Last Taken Type Acetaminophen [Tylenol] 325 mg PO DAILY #10 tablet 05/26/13 11/24/20 10/16/14 Rx Baclofen [Lioresal] 10 mg PO TID PRN 05/26/13 11/24/20 10/16/14 History Diazepam [Valium] 10 mg PO BID 05/26/13 11/24/20 10/16/14 History PARoxetine [Paxil] 10 mg PO DAILY 05/26/13 11/24/20 10/16/14 19:00 History Quetiapine Fumarate [SEROquel XR] 200 mg PO DAILY 05/26/13 11/24/20 10/16/14 History rOPINIRole [Requip] 1 mg PO QHS 05/26/13 11/24/20 10/16/14 19:00 History QUEtiapine [SEROquel] 200 mg PO QHS 05/28/13 11/24/20 10/16/14 19:00 History Famotidine [Pepcid] 10 mg PO BID #60 tablet 06/02/13 11/24/20 10/16/14 Rx levoFLOXacin [Levaquin] 750 mg PO QDAY #7 tablet 06/02/13 11/24/20 10/16/14 Rx metroNIDAZOLE [Flagyl] 500 mg PO Q8HR #30 tablet 06/02/13 11/24/20 10/16/14 Rx Hydromorphone HCl [Dilaudid] 4 mg PO PRN 10/17/14 11/24/20 10/16/14 History Oxycodone HCl/Acetaminophen 1 each PO Q6HR PRN 10/17/14 11/24/20 10/16/14 History [Percocet 10-325 mg] Oxycodone HCl/Acetaminophen 1 each PO Q6HR PRN #30 tablet 10/18/14 11/24/20 Unknown Rx [Percocet 10-325 mg] Active Medications: Generic Name Dose Route Start Last Admin Trade Name Freq PRN Reason Stop Dose Admin Acetaminophen 650 mg 11/11/20 22:11 11/19/20 11:30 Acetaminophen 325 Mg Tab PO 650 mg Q4H PRN Administration Pain MILD(1-3)/Fever >100.5/ERAZO Albuterol 2.5 mg 11/13/20 07:40 Albuterol 2.5 Mg/3 Ml Nebu IH Q4HRT PRN Shortness Of Breath Lipase/Protease/Amylase 1 each 11/13/20 17:32 Lipase 10,500/Protease 25,000/Amylase 43,750 (Units) Dr Weiss FEEDTUBE PRN PRN For Clogged Feeding Tube Ascorbic Acid 500 mg 11/13/20 22:00 11/26/20 10:26 Ascorbic Acid 500 Mg Tab PO 500 mg BID CARLOS Administration Dextrose 50 ml 11/13/20 16:43 11/26/20 12:30 Dextrose 50% In Water (25gm) 50 Ml Syringe IV 50 ml Q30MIN PRN Administration Hypoglycemia Protocol Fentanyl 50 mcg 11/13/20 05:33 Fentanyl 100 Mcg/2 Ml Inj IV Q10MIN PRN ANALGESIA Hydrophilic Ointment 1 applic 11/13/20 05:33 Lip Therapy Vaseline TP Q2HR PRN Dry Lips Fentanyl Citrate 2,000 mcg in 100 mls @ 3.81 mls/hr 11/13/20 06:00 11/21/20 15:00 Fentanyl Drip Premix IV 0 mcg/kg/hr TITR CARLOS 0 mls/hr Titration Protocol 1 MCG/KG/HR NORepinephrine/NS 8 MG-250 ML 8 mg in 250 mls @ 3.75 mls/hr 11/13/20 15:00 11/26/20 13:07 Norepinephrine/Ns 8 Mg-250 Ml (Double Conc) IV 20 mcg/min TITRATE CARLOS 37.5 mls/hr Administration Protocol 2 MCG/MIN Vasopressin 20 unit/ Sodium 101 mls @ 9.09 mls/hr 11/19/20 09:00 11/26/20 08:00 Chloride IV 0.03 units/min TITR CARLOS 9.09 mls/hr Administration Protocol 0.03 UNITS/MIN Phenylephrine HCl 100 mg/ 100 mls @ 3 mls/hr 11/21/20 08:15 11/21/20 17:53 Sodium Chloride IV 0 mcg/min TITR CARLOS 0 mls/hr Titration Protocol 50 MCG/MIN Epinephrine 16 mg/ Sodium 250 mls @ 1.875 mls/hr 11/21/20 11:00 11/22/20 01:00 Chloride IV 0 mcg/min TITR CARLOS 0 mls/hr Titration Protocol 2 MCG/MIN Dextrose/Sodium Chloride 1,000 mls @ 75 mls/hr 11/25/20 14:00 11/26/20 08:22 D5/0.45ns IV 11/27/20 03:19 75 mls/hr DIRECT CARLOS Administration Insulin Human Regular 0 units 11/21/20 00:00 11/26/20 12:31 Insulin Regular, Human 100 Units/1 Ml SUB-Q Not Given Q6HR CARLOS Protocol Multi-Ingred Cream/Lotion/Oil/Oint 1 applic 11/13/20 05:33 Mineral Oil/Petrolatum, White Ophth Oint 3.5 Gm OU Q4HR PRN Dry Eye(s) Pantoprazole Sodium 40 mg 11/25/20 22:00 11/26/20 10:26 Pantoprazole 40 Mg Inj IV 40 mg BID CARLOS Administration Simple Syrup 15 ml 11/13/20 17:32 Simple Syrup 15 Ml FEEDTUBE PRN PRN Hypoglycemia Simple Syrup 30 ml 11/13/20 17:32 11/26/20 12:40 Simple Syrup 15 Ml FEEDTUBE 30 ml PRN PRN Administration Hypoglycemia Sodium Bicarbonate 325 mg 11/13/20 17:32 Sodium Bicarbonate 325 Mg Tab FEEDTUBE PRN PRN For Clogged Feeding Tube Sodium Chloride 10 ml 11/12/20 10:00 11/26/20 10:26 Sodium Chloride 0.9% 10 Ml Flush Syringe IV 10 ml BID CARLOS Administration Sodium Chloride 10 ml 11/11/20 22:11 11/22/20 20:50 Sodium Chloride 0.9% 10 Ml Flush Syringe IV 10 ml PRN PRN Administration LINE FLUSH Zinc Sulfate 220 mg 11/13/20 22:00 11/26/20 10:26 Zinc Sulfate 220 Mg Cap PO 220 mg BID CARLOS Administration HEART Score - HEART Score Age: > 65 Risk factors: 1-2 risk factors Troponin: Troponin T < 0.010 ng/mL (0.00-0.029) 11/11/20 13:39 - Critical Actions Critical Actions: 0-3 pts:0.9-1.7%risk of adverse cardiac event.Candidate for discharge
[2020-11-26] MEDS ORDERED: D5W/0.45% NACL 1,000 ML IV SCH (14:00)
[2020-11-26] MEDS: METOCLOPRAMIDE 10 MG/2 ML INJ IV SCH ×2 (15:40→22:25)
[2020-11-26 20:04] VITALS: BP 52/29
[2020-11-26] MEDS ORDERED: ATROPINE 0.1% (1 MG/10 ML) CARDIAC SYRINGE IV ONE (22:41)
[2020-11-26] MEDS ORDERED: ATROPINE 0.1% (1 MG/10 ML) CARDIAC SYRINGE ONE (22:44)
--- NOTE | 2020-11-26 23:18 | Death Note ---
Note Date of : 11/26/20 Time of : 23:03 Time Pronounced: 23:03 - Preliminary Cause of (problem) (1) Cardiac arrest Preliminary cause of Called by nurse to bedside, after pt had episode of bradycardia followed by PEA arrest. At the time of my examination pt is asystole. On exam no spontaneous respirations, no heart sounds noted, no response to tactile stimulation, pupls are fixed. Time of 2303 (2) Acute respiratory failure with hypoxia Preliminary cause of
--- NOTE | 2020-11-27 07:27 | Death Summary ---
Summary - Providers Date of service: 11/27/20 Consults: 11/13/20 05:04 Consult to Physician [CONS] Urgent Comment: Dr. Ravi spoke to Dr. Pelayo @ [phone] Consulting Provider: CHRISTINE PELAYO Physician Instructions: Reason For Exam: central line placement in left neck 11/13/20 05:29 Consult to Physician [CONS] Routine Comment: Consulting Provider: JOSE PETERS Physician Instructions: Reason For Exam: Respiratory Failure,Covid-19 +ve 11/13/20 05:30 Consult to Physician [CONS] Routine Comment: Consulting Provider: BRUCE ROBLES Physician Instructions: Reason For Exam: Covid-19 +VE 11/13/20 05:33 Consult to Dietitian/Nutrition [CONS] Routine Physician Instructions: Reason For Exam: Reason for Consult: Evaluate nutritional intake 11/13/20 16:01 Consult to Dietitian/Nutrition [CONS] Routine Physician Instructions: Reason For Exam: Reason for Consult: Write/Manage Tube Feeding Consult to Physician [CONS] Routine Comment: Consulting Provider: RICARDO MAHONEY Physician Instructions: Reason For Exam: KATLYN 11/18/20 12:29 PICC Line Placement [Consult to PICC Line RN] [CONS] Routine Reason For Exam: for PICC Type Line:: PICC 11/19/20 14:28 Consult to Physician [CONS] Urgent Comment: called office/ danilo Consulting Provider: MIGUEL LAUGHLIN Physician Instructions: Reason For Exam: acute GI Bleed 11/21/20 10:00 Consult to Wound/ET Nurse [CONS] Routine Reason For Exam: DTI SACRUM 11/24/20 14:18 Consult to Physician [CONS] Routine Comment: Consulting Provider: AKI HAWK Physician Instructions: Reason For Exam: thrombocytopenia,anemia Attending: KATHRYN FOSTER - summary Date of admission: 11/11/20 22:11 Date of : 11/26/20 (at 23:03) - Final diagnosis (1) Acute respiratory failure with hypoxia Note: Final diagnosis: (2) Sepsis due to severe acute respiratory syndrome coronavirus 2 (SARS-CoV-2) Note: Final diagnosis: (3) Septic shock Note: Final diagnosis: (4) Cardiac arrest Note: Final diagnosis: (5) Shock liver Note: Final diagnosis: (6) Pneumonia due to COVID-19 virus Note: Final diagnosis:
== END 2020-11-26 23:03 | DRG 870 ==
LOC: ED 12:52 → 3A 22:11 → OBSVTOIN 22:11 → 3B-SURG 11-12 19:06 → 3A 11-12 20:22 → CC1 11-13 05:40
PROVIDERS: ADMIT Internal Medicine; ATTEND Internal Medicine
PROC: 0T784DZ Dilation of Bilateral Ureters with Intraluminal Device, Percutaneous Endoscopic Approach (ICD-10-PCS; 2020-11-13)
PROC: BT141ZZ Fluoroscopy of Kidneys, Ureters and Bladder using Low Osmolar Contrast (ICD-10-PCS; 2020-11-13)
PROC: 0BH17EZ Insertion of Endotracheal Airway into Trachea, Via Natural or Artificial Opening (ICD-10-PCS; principal; 2020-11-14)
PROC: 5A1955Z Respiratory Ventilation, Greater than 96 Consecutive Hours (ICD-10-PCS; 2020-11-14)
PROC: XW033H5 Introduction of Tocilizumab into Peripheral Vein, Percutaneous Approach, New Technology Group 5 (ICD-10-PCS; 2020-11-14)
PROC: 02HV33Z Insertion of Infusion Device into Superior Vena Cava, Percutaneous Approach (ICD-10-PCS; 2020-11-16)
PROC: 30233N1 Transfusion of Nonautologous Red Blood Cells into Peripheral Vein, Percutaneous Approach (ICD-10-PCS; 2020-11-19)
PROC: 0W3P8ZZ Control Bleeding in Gastrointestinal Tract, Via Natural or Artificial Opening Endoscopic (ICD-10-PCS; 2020-11-20)
PROC: 02HV33Z Insertion of Infusion Device into Superior Vena Cava, Percutaneous Approach (ICD-10-PCS; 2020-11-21)
PROC: 03HY32Z Insertion of Monitoring Device into Upper Artery, Percutaneous Approach (ICD-10-PCS; 2020-11-21)
PROC: 30233K1 Transfusion of Nonautologous Frozen Plasma into Peripheral Vein, Percutaneous Approach (ICD-10-PCS; 2020-11-21)
PROC: 30233R1 Transfusion of Nonautologous Platelets into Peripheral Vein, Percutaneous Approach (ICD-10-PCS; 2020-11-24)
DX: A41.89 Other specified sepsis (principal); J12.82 Pneumonia due to coronavirus disease 2019; U07.1 COVID-19; J96.01 Acute respiratory failure with hypoxia; R65.21 Severe sepsis with septic shock; E43 Unspecified severe protein-calorie malnutrition; K25.4 Chronic or unspecified gastric ulcer with hemorrhage; K72.00 Acute and subacute hepatic failure without coma; G92 Toxic encephalopathy; N17.9 Acute kidney failure, unspecified; E87.0 Hyperosmolality and hypernatremia; N13.6 Pyonephrosis; D62 Acute posthemorrhagic anemia; E86.0 Dehydration; E11.9 Type 2 diabetes mellitus without complications; M48.56XD Collapsed vertebra, not elsewhere classified, lumbar region, subsequent encounter for fracture with routine healing; E87.8 Other disorders of electrolyte and fluid balance, not elsewhere classified; E87.6 Hypokalemia; E83.42 Hypomagnesemia; E83.51 Hypocalcemia; I46.9 Cardiac arrest, cause unspecified; Z68.29 Body mass index [BMI] 29.0-29.9, adult
CPT/HCPCS: 36415; 36600; 71045; 71250; 71275; 74018; 74176; 74420; 80048; 80053; 80202; 81001; 82140; 82271; 82570; 82728; 82803; 82805; 82947; 82962; 83036; 83615; 83690; 83735; 84100; 84132; 84145; 84300; 84484; 85007; 85014; 85018; 85025; 85027; 85049; 85379; 85384; 85520; 85610; 85730; 86022; 86140; 86850; 86900; 86901; 86920; 87040; 87070; 87076; 87186; 87205; 93005; 93308; 93321; 93325; 94002; 94003; 94640; G0378; A4217; C1758; C1769; C2617; C9113; J0171; J0282; J0461; J0610; J0692; J1100; J1120; J1644; J1815; J2250; J2370; J2405; J2704; J2765; J3010; J3262; J3370; J3475; J3480; J7030; J7040; J7042; J7050; J7070; J7120; P9016; P9017; P9035; Q9967; U0003